=== PATIENT | male | born 1940 | race Caucasian/White ===

== ENCOUNTER 2017-01-01 12:16 | Inpatient (IN) | payer MEDICARE ==
[2017-01-01] MEDS ORDERED: MORPHINE SULFATE 4 MG/ML SYRINGE IV STA (13:29)
[2017-01-01] MEDS ORDERED: RX INFO: IV CONTRAST WAS GIVEN 1 EACH MISC MISCELLANE PRN (13:29)
[2017-01-01] MEDS ORDERED: SODIUM CHLORIDE 0.9% 1,000 ML IV STA ×2 (13:29)
--- NOTE | 2017-01-01 13:34 | ED ---
General Adult HPI - General Chief complaint: Abdominal Pain Stated complaint: Rib/side/back pain Time Seen by Provider: 01/01/17 13:18 Source: patient, RN notes reviewed, old records reviewed Mode of arrival: ambulatory Limitations: no limitations - History of Present Illness Initial comments: This is a 76-year-old male the ER for evaluation of bowel pain. Patient has anterior bilateral flank pain wrapping around his rib cage. Also complaining of mild pain in his abdomen. No nausea vomiting. Patient has significant medical history of high blood pressure high cholesterol, no significant history of alcohol, no abdominal surgeries. Patient has had coronary artery bypass graft with CAD. Patient's continue all medications as prescribed. No blood in his stool no nausea or vomiting. Symptoms started last night but it worsened and today, denies trauma. No fever cough or congestion, no travel history or recent hospitalizations - Related Data Home Medications Medication Instructions Recorded Confirmed Aspirin 325 mg PO DAILY 09/27/14 01/01/17 Atorvastatin [Lipitor] 40 mg PO HS 09/27/14 01/01/17 Metoprolol Tartrate [Lopressor] 50 mg PO BID 09/27/14 01/01/17 Terazosin [Hytrin] 5 mg PO HS 09/27/14 01/01/17 amLODIPine [Norvasc] 2.5 mg PO HS 02/16/16 01/01/17 Cilostazol [Pletal] 50 mg PO BID 01/01/17 01/01/17 Clopidogrel [Plavix] 75 mg PO HS 01/01/17 01/01/17 Docusate [Colace] 100 mg PO HS PRN 01/01/17 01/01/17 Previous Rx's Medication Instructions Recorded Enalapril [Vasotec] 5 mg PO DAILY #30 tablet 10/12/14 Allergies Allergy/AdvReac Type Severity Reaction Status Date / Time No Known Allergies Allergy Verified 01/01/17 13:29 Review of Systems ROS Statement: Those systems with pertinent positive or pertinent negative responses have been documented in the HPI. ROS Other: All systems not noted in ROS Statement are negative. 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 NO HX, Smoking Status: Former smoker Past Alcohol Use History: Daily Additional Past Alcohol Use History / Comment(s): STARTED SMOKING AT AGE 16 QUIT AT AGE 40 SMOKED 1 1/2 PPD Past Drug Use History: None Reported - Past Family History Brother(s) Family Medical History: Cancer Additional Family Medical History / Comment(s): 2 with lung and 1 with prostate Mother Family Medical History: Myocardial Infarction ([place]) Father Additional Family Medical History / Comment(s): AT AGE 83 FROM "HARDENING OF THE ARTERIES" General Exam Limitations: no limitations General appearance: alert, in no apparent distress Head exam: Present: atraumatic, normocephalic, normal inspection Eye exam: Present: normal appearance, PERRL, EOMI. Absent: scleral icterus, conjunctival injection, periorbital swelling ENT exam: Present: normal exam, mucous membranes moist Neck exam: Present: normal inspection. Absent: tenderness, meningismus, lymphadenopathy Respiratory exam: Present: normal lung sounds bilaterally. Absent: respiratory distress, wheezes, rales, rhonchi, stridor Cardiovascular Exam: Present: regular rate, normal rhythm, normal heart sounds. Absent: systolic murmur, diastolic murmur, rubs, gallop, clicks GI/Abdominal exam: Present: soft, normal bowel sounds. Absent: distended, tenderness, guarding, rebound, rigid Extremities exam: Present: normal inspection, full ROM, normal capillary refill. Absent: tenderness, pedal edema, joint swelling, calf tenderness Back exam: Present: normal inspection Neurological exam: Present: alert, oriented X3, CN II-XII intact Psychiatric exam: Present: normal affect, normal mood Skin exam: Present: warm, dry, intact, normal color. Absent: rash Course Vital Signs 01/01/17 12:31 Temperature 97.5 F L Pulse Rate 82 Respiratory 16 Rate Blood Pressure 90/54 O2 Sat by Pulse 93 L Oximetry Medical Decision Making - Lab Data Result diagrams: 01/01/17 13:53 01/01/17 13:50 Lab Results 01/01/17 01/01/17 01/01/17 Range/Units 13:50 13:50 13:50 WBC (3.8-10.6) k/uL RBC (4.30-5.90) m/uL Hgb (13.0-17.5) gm/dL Hct (39.0-53.0) % MCV (80.0-100.0) fL MCH (25.0-35.0) pg MCHC (31.0-37.0) g/dL RDW (11.5-15.5) % Plt Count (150-450) k/uL Neutrophils % % Lymphocytes % % Monocytes % % Eosinophils % % Basophils % % Neutrophils # (1.3-7.7) k/uL Lymphocytes # (1.0-4.8) k/uL Monocytes # (0-1.0) k/uL Eosinophils # (0-0.7) k/uL Basophils # (0-0.2) k/uL Poikilocytosis Anisocytosis Macrocytosis PT 11.8 (9.0-12.0) sec INR 1.2 (<1.1) APTT 24.6 (22.0-30.0) sec Sodium 135 L (137-145) mmol/L Potassium 4.8 (3.5-5.1) mmol/L Chloride 99 (98-107) mmol/L Carbon Dioxide 22 (22-30) mmol/L Anion Gap 14 mmol/L BUN 10 (9-20) mg/dL Creatinine 0.99 (0.66-1.25) mg/dL Est GFR (MDRD) Af Amer >60 (>60 ml/min/1.73 sqM) Est GFR (MDRD) Non-Af >60 (>60 ml/min/1.73 sqM) Glucose 134 H (74-99) mg/dL Calcium 9.0 (8.4-10.2) mg/dL Total Bilirubin 0.8 (0.2-1.3) mg/dL AST 21 (17-59) U/L ALT 22 (21-72) U/L Alkaline Phosphatase 55 (38-126) U/L Total Creatine Kinase 35 L (55-170) U/L CK-MB (CK-2) 0.6 (0.0-2.4) ng/mL CK-MB (CK-2) Rel Index 1.7 Troponin I <0.012 (0.000-0.034) ng/mL Total Protein 6.9 (6.3-8.2) g/dL Albumin 3.7 (3.5-5.0) g/dL Amylase 58 (30-110) U/L Lipase 27 (23-300) U/L 01/01/17 Range/Units 13:53 WBC 9.2 (3.8-10.6) k/uL RBC 3.64 L (4.30-5.90) m/uL Hgb 12.2 L (13.0-17.5) gm/dL Hct 35.8 L (39.0-53.0) % MCV 98.2 (80.0-100.0) fL MCH 33.6 (25.0-35.0) pg MCHC 34.2 (31.0-37.0) g/dL RDW 21.7 H (11.5-15.5) % Plt Count 466 H (150-450) k/uL Neutrophils % 82 % Lymphocytes % 7 % Monocytes % 5 % Eosinophils % 1 % Basophils % 2 % Neutrophils # 7.6 (1.3-7.7) k/uL Lymphocytes # 0.6 L (1.0-4.8) k/uL Monocytes # 0.5 (0-1.0) k/uL Eosinophils # 0.1 (0-0.7) k/uL Basophils # 0.2 (0-0.2) k/uL Poikilocytosis Slight Anisocytosis Moderate Macrocytosis Moderate PT (9.0-12.0) sec INR (<1.1) APTT (22.0-30.0) sec Sodium (137-145) mmol/L Potassium (3.5-5.1) mmol/L Chloride (98-107) mmol/L Carbon Dioxide (22-30) mmol/L Anion Gap mmol/L BUN (9-20) mg/dL Creatinine (0.66-1.25) mg/dL Est GFR (MDRD) Af Amer (>60 ml/min/1.73 sqM) Est GFR (MDRD) Non-Af (>60 ml/min/1.73 sqM) Glucose (74-99) mg/dL Calcium (8.4-10.2) mg/dL Total Bilirubin (0.2-1.3) mg/dL AST (17-59) U/L ALT (21-72) U/L Alkaline Phosphatase (38-126) U/L Total Creatine Kinase (55-170) U/L CK-MB (CK-2) (0.0-2.4) ng/mL CK-MB (CK-2) Rel Index Troponin I (0.000-0.034) ng/mL Total Protein (6.3-8.2) g/dL Albumin (3.5-5.0) g/dL Amylase (30-110) U/L Lipase (23-300) U/L Disposition Clinical Impression: Grief reaction, Weakness, Dizziness Disposition: HOME SELF-CARE Condition: Good Instructions: Weakness (ED), Grief and Loss (ED) Referrals: Leon Franklin MD [Primary Care Provider] - 1-2 days
[2017-01-01 14:13] LABS: Anisocytosis Moderate; Basophils # (A) 0.2 k/uL (0-0.2); Basophils % (A) 2 %; CH 34.3; CHCM 34.9; Eosinophils # (A) 0.1 k/uL (0-0.7); Eosinophils % (A) 1 %; HCT 35.8 % (39.0-53.0); HDW 3.98; HGB 12.2 gm/dL (13.0-17.5); Luc # (Auto) 0.29; Luc % (Auto) 3; Lymphocytes # (A) 0.6 k/uL (1.0-4.8); Lymphocytes % (A) 7 %; MCH 33.6 pg (25.0-35.0); MCHC 34.2 g/dL (31.0-37.0); MCV 98.2 fL (80.0-100.0); Macrocytosis Moderate; Mean Platelet Volume 7.7; Monocytes # (A) 0.5 k/uL (0-1.0); Monocytes % (A) 5 %; Neutrophils # (A) 7.6 k/uL (1.3-7.7); Neutrophils % (A) 82 %; Poikilocytosis Slight; RBC 3.64 m/uL (4.30-5.90); RDW 21.7 % (11.5-15.5); WBC 9.2 k/uL (3.8-10.6); WBC (Perox) 9.27
[2017-01-01 14:22] LABS: INR 1.2 (<1.1)
[2017-01-01 14:23] LABS: Partial Thromboplastin Time 24.6 sec (22.0-30.0); Prothrombin Time 11.8 sec (9.0-12.0)
[2017-01-01 14:28] LABS: ALT 22 U/L (21-72); AST 21 U/L (17-59); Alkaline Phosphatase 55 U/L (38-126); Amylase 58 U/L (30-110); Anion Gap 14 mmol/L; Blood Urea Nitrogen 10 mg/dL (9-20); Carbon Dioxide 22 mmol/L (22-30); Chloride 99 mmol/L (98-107); Glucose 134 mg/dL (74-99); Non-African American GFR(MDRD) >60 (>60 ml/min/1.73 sqM); Potassium 4.8 mmol/L (3.5-5.1); Sodium 135 mmol/L (137-145); Total Bilirubin 0.8 mg/dL (0.2-1.3); Total Protein 6.9 g/dL (6.3-8.2)
[2017-01-01 14:35] LABS: Creatine Kinase 35 U/L (55-170)
[2017-01-01 14:48] LABS: Creatine Kinase MB 0.6 ng/mL (0.0-2.4); Troponin I <0.012 ng/mL (0.000-0.034)
--- NOTE | 2017-01-01 15:11 | ED ---
Medical Decision Making - Medical Decision Making 76-year-old year for evaluation of bowel pain. Patient with acute cholecystitis , CT and ultrasound, lab work at this time is normal started on antibiotics for surgical evaluation in the morning - Lab Data Result diagrams: 01/01/17 13:53 01/01/17 13:50 Lab Results 01/01/17 01/01/17 01/01/17 Range/Units 13:50 13:50 13:50 WBC (3.8-10.6) k/uL RBC (4.30-5.90) m/uL Hgb (13.0-17.5) gm/dL Hct (39.0-53.0) % MCV (80.0-100.0) fL MCH (25.0-35.0) pg MCHC (31.0-37.0) g/dL RDW (11.5-15.5) % Plt Count (150-450) k/uL Neutrophils % % Lymphocytes % % Monocytes % % Eosinophils % % Basophils % % Neutrophils # (1.3-7.7) k/uL Lymphocytes # (1.0-4.8) k/uL Monocytes # (0-1.0) k/uL Eosinophils # (0-0.7) k/uL Basophils # (0-0.2) k/uL Poikilocytosis Anisocytosis Macrocytosis PT (9.0-12.0) sec INR (<1.1) APTT (22.0-30.0) sec Sodium 135 L (137-145) mmol/L Potassium 4.8 (3.5-5.1) mmol/L Chloride 99 (98-107) mmol/L Carbon Dioxide 22 (22-30) mmol/L Anion Gap 14 mmol/L BUN 10 (9-20) mg/dL Creatinine 0.99 (0.66-1.25) mg/dL Est GFR (MDRD) Af Amer >60 (>60 ml/min/1.73 sqM) Est GFR (MDRD) Non-Af >60 (>60 ml/min/1.73 sqM) Glucose 134 H (74-99) mg/dL Plasma Lactic Acid Moe 1.5 (0.7-2.0) mmol/L Calcium 9.0 (8.4-10.2) mg/dL Total Bilirubin 0.8 (0.2-1.3) mg/dL AST 21 (17-59) U/L ALT 22 (21-72) U/L Alkaline Phosphatase 55 (38-126) U/L Total Creatine Kinase 35 L (55-170) U/L CK-MB (CK-2) 0.6 (0.0-2.4) ng/mL CK-MB (CK-2) Rel Index 1.7 Troponin I <0.012 (0.000-0.034) ng/mL Total Protein 6.9 (6.3-8.2) g/dL Albumin 3.7 (3.5-5.0) g/dL Amylase 58 (30-110) U/L Lipase 27 (23-300) U/L Urine Color Urine Appearance (Clear) Urine pH (5.0-8.0) Ur Specific [place] (1.001-1.035) Urine Protein (Negative) Urine Glucose (UA) (Negative) Urine Ketones (Negative) Urine Blood (Negative) Urine Nitrate (Negative) Urine Bilirubin (Negative) Urine Urobilinogen (<2.0) mg/dL Ur Leukocyte Esterase (Negative) 01/01/17 01/01/17 01/01/17 Range/Units 13:50 13:53 16:00 WBC 9.2 (3.8-10.6) k/uL RBC 3.64 L (4.30-5.90) m/uL Hgb 12.2 L (13.0-17.5) gm/dL Hct 35.8 L (39.0-53.0) % MCV 98.2 (80.0-100.0) fL MCH 33.6 (25.0-35.0) pg MCHC 34.2 (31.0-37.0) g/dL RDW 21.7 H (11.5-15.5) % Plt Count 466 H (150-450) k/uL Neutrophils % 82 % Lymphocytes % 7 % Monocytes % 5 % Eosinophils % 1 % Basophils % 2 % Neutrophils # 7.6 (1.3-7.7) k/uL Lymphocytes # 0.6 L (1.0-4.8) k/uL Monocytes # 0.5 (0-1.0) k/uL Eosinophils # 0.1 (0-0.7) k/uL Basophils # 0.2 (0-0.2) k/uL Poikilocytosis Slight Anisocytosis Moderate Macrocytosis Moderate PT 11.8 (9.0-12.0) sec INR 1.2 (<1.1) APTT 24.6 (22.0-30.0) sec Sodium (137-145) mmol/L Potassium (3.5-5.1) mmol/L Chloride (98-107) mmol/L Carbon Dioxide (22-30) mmol/L Anion Gap mmol/L BUN (9-20) mg/dL Creatinine (0.66-1.25) mg/dL Est GFR (MDRD) Af Amer (>60 ml/min/1.73 sqM) Est GFR (MDRD) Non-Af (>60 ml/min/1.73 sqM) Glucose (74-99) mg/dL Plasma Lactic Acid Moe (0.7-2.0) mmol/L Calcium (8.4-10.2) mg/dL Total Bilirubin (0.2-1.3) mg/dL AST (17-59) U/L ALT (21-72) U/L Alkaline Phosphatase (38-126) U/L Total Creatine Kinase (55-170) U/L CK-MB (CK-2) (0.0-2.4) ng/mL CK-MB (CK-2) Rel Index Troponin I (0.000-0.034) ng/mL Total Protein (6.3-8.2) g/dL Albumin (3.5-5.0) g/dL Amylase (30-110) U/L Lipase (23-300) U/L Urine Color Yellow Urine Appearance Clear (Clear) Urine pH 6.5 (5.0-8.0) Ur Specific [place] >1.050 H (1.001-1.035) Urine Protein Trace H (Negative) Urine Glucose (UA) Negative (Negative) Urine Ketones Negative (Negative) Urine Blood Negative (Negative) Urine Nitrate Negative (Negative) Urine Bilirubin Negative (Negative) Urine Urobilinogen <2.0 (<2.0) mg/dL Ur Leukocyte Esterase Negative (Negative) - Radiology Data Radiology results: report reviewed (CT pelvis shows cholelithiasis, ultrasound shows cholecystitis), image reviewed Disposition Clinical Impression: Abdominal pain, Acute cholecystitis Disposition: ADMITTED IP TO THIS [facility] Condition: Good Referrals: Leon Franklin MD [Primary Care Provider] - 1-2 days
--- NOTE | 2017-01-01 15:44 | CT ---
EXAMINATION TYPE: CT abdomen pelvis w con DATE OF EXAM: 01/01/2017 3:23 PM COMPARISON: NONE HISTORY: 76-year-old male with abdominal and lower rib pain x 5 days. TECHNIQUE: Contiguous axial scanning of the abdomen and pelvis following administration of 100 ml Omn ipaque 300 IV contrast. Delayed images through the kidneys and coronal/sagittal reconstructions perf ormed. CT DLP: 967.8 mGycm Automated exposure control for dose reduction was used. FINDINGS: Heart is upper limits of normal in size without pericardial effusion. Median sternotomy wires are pre sent. There is a small hiatal hernia with prominent fluid within the lower esophagus and distending the sto mach. Interstitial changes in the lower lungs suggesting scarring and fibrosis. There is calcified pleural plaques along the left greater than right hemidiaphragms suggesting prior asbestos exposure. No focal liver lesion or biliary ductal dilatation. Portal venous system is patent. A dependent 9 mm gallstone. No abnormal gallbladder distention. Adrenal glands and pancreas appear within normal limits. There is mild splenomegaly at 14.2 cm cranio caudal, coronal image 75. Mild bilateral perinephric stranding likely senescent change or secondary to chronic medical renal di sease. Moderate atherosclerotic calcifications throughout the abdominal aorta and iliac arteries without ane urysm. There is fat stranding along the central and left mesentery with prominent but nonenlarged mesenteric lymph nodes, referred to axial images 33 through 48. A solitary enlarged left mesenteric lymph node measures 1.3 cm, axial image 48. No dilated small bowel, free fluid, or free air though there is mild edematous change throughout the mesenteric fat. There appears to be a retained fragmented epicardial pacer lead in the anterior epiga stric fat. Normal appendix. Colonic diverticulosis without evidence for acute diverticulitis. Some liquid stool in the colon may represent enteritis. The graft circumferential bladder wall thickening with prostato megaly at 5.7 cm wide. Rectum appears normal. No abnormal fluid collection in the pelvis. Bones: Mild degenerative changes at the hips and SI joints. There is a right L5 pars defect and mild degenerative disc disease at L5-S1. No osseous destructive process. IMPRESSION: 1. LEFT MID ABDOMINAL ASHLEY MESENTERY WITH ASSOCIATED NONENLARGED MESENTERIC LYMPH NODES. ONE MESENTE DIMITRIOS LYMPH NODE IS ENLARGED AT 1.3 CM. FINDINGS CAN BE SEEN WITH MESENTERIC PANNICULITIS. 3 MONTH FOLL OW-UP EXAM RECOMMENDED EARLY LYMPHOMA CAN ALSO HAVE THIS APPEARANCE. 2. COLONIC DIVERTICULOSIS WITHOUT ACUTE DIVERTICULITIS. HOWEVER, THERE IS LIQUID STOOL IN THE COLON T HAT COULD REFLECT AN ENTERITIS. CLINICALLY CORRELATE. 3. SMALL HIATAL HERNIA WITH PROMINENT FLUID IN THE LOWER ESOPHAGUS. CORRELATE FOR GERD. 4. CIRCUMFERENTIAL BLADDER WALL THICKENING COULD REFLECT BLADDER WALL HYPERTROPHY OR CYSTITIS. 5. CHOLELITHIASIS, MILD SPLENOMEGALY (14.2 CM), PROSTATOMEGALY (5.7 CM WIDE), PRIOR ASBESTOS EXPOSURE , AND RIGHT L5 PARS DEFECT.
[2017-01-01] MEDS ORDERED: KETOROLAC 30 MG/ML 1 ML VIAL IVP STA (15:52)
[2017-01-01 16:14] LABS: Appearance,Urine Clear (Clear); Bilirubin,Urine Negative (Negative); Glucose,Urine (UA) Negative (Negative); Ketones,Urine Negative (Negative); Leukocyte Esterase,Urine Negative (Negative); Nitrite,Urine Negative (Negative); PH, Urine 6.5 (5.0-8.0); Protein,Urine Trace (Negative); UA Billing (MACRO vs. MICRO) CHEM; Urobilinogen,Urine <2.0 mg/dL (<2.0)
[2017-01-01 16:29] LABS: Specific Gravity,Urine >1.050 (1.001-1.035)
--- NOTE | 2017-01-01 17:28 | US ---
EXAMINATION TYPE: US gallbladder DATE OF EXAM: 01/01/2017 5:08 PM COMPARISON: NONE CLINICAL HISTORY: Pain. RUQ pain that extends to back with heartburn EXAM MEASUREMENTS: Liver Length: 16.9 cm Gallbladder Wall: 0.3 cm CBD: 0.7 cm Right Kidney: 12.9 x 5.3 x 5.2 cm TECHNOLOGIST IMPRESSION: overlying bowel gas, patient had to sit upright due to pain Pancreas: limited views due to gas Liver: intercostal imaging due to gas, appears wnl Gallbladder: single stone seen within fundus, with sludge noted Evidence for sonographic Mc's sign: yes CBD: wnl Right Kidney: wnl IMPRESSION: There is echogenic bile as well as the single 1 cm gallstone. There are no dilated ducts. No focal liver defect.
[2017-01-01] MEDS ORDERED: SODIUM CHLORIDE 0.9% 1,000 ML IV ONE (17:48)
[2017-01-01] MEDS ORDERED: AMPICILLIN-SULBACTAM 3 GM in SODIUM CHLORIDE 0.9% 100 ML IVPB STA (17:48)
[2017-01-01] MEDS ORDERED: ONDANSETRON 4 MG/2 ML VIAL IVP STA (18:18)
[2017-01-01] MEDS ORDERED: ONDANSETRON 4 MG/2 ML VIAL IVP PRN (18:18)
[2017-01-01 20:08] VITALS: BMI 28.1
[2017-01-01] MEDS: AMPICILLIN-SULBACTAM 3 GM in SODIUM CHLORIDE 0.9% 100 ML IVPB SCH (23:16)
[2017-01-02] MEDS: AMPICILLIN-SULBACTAM 3 GM in SODIUM CHLORIDE 0.9% 100 ML IVPB SCH ×4 (06:17→23:34)
[2017-01-02] MEDS: MORPHINE SULFATE 4 MG/ML SYRINGE IVP PRN ×4 (08:04→21:37)
[2017-01-02] MEDS: PANTOPRAZOLE 40 MG/10 ML VIAL IVP SCH (08:04)
--- NOTE | 2017-01-02 08:09 | P.GSHP ---
History of Present Illness H&P Date: 01/01/17 Chief Complaint: Right upper quadrant pain This is a 76-year-old male who was admitted through the emergency room. Patient complaints of right upper quadrant pain which radiated to his back. Patient went CT scan and ultrasound shows evidence of cholelithiasis. - Constitutional Constitutional: Reports as per HPI Past Medical History Past Medical History: Coronary Artery Disease (CAD), Hyperlipidemia, Hypertension, Prostate Disorder Additional Past Medical History / Comment(s): PAD History of Any Multi-Drug Resistant Organisms: None Reported Past Surgical History: Coronary Bypass/CABG, Heart Catheterization, Hernia Repair Additional Past Surgical History / Comment(s): cardiac cath ON 10/04/2014, 5-- [employer] RT SFA, PEPE INGUIANL HERNIA, NAVAL HERNIA Past Anesthesia/Blood Transfusion Reactions: No Reported Reaction Past Psychological History: No Psychological Hx Reported Additional Psychological History / Comment(s): PT LIVES AT HOME WITH HIS , IS INDEPENDANT,RETIRED FROM [employer]. NO HX, Smoking Status: Former smoker Past Alcohol Use History: Daily Additional Past Alcohol Use History / Comment(s): STARTED SMOKING AT AGE 16 QUIT AT AGE 40 SMOKED 1 1/2 PPD Past Drug Use History: None Reported - Past Family History Brother(s) Family Medical History: Cancer Additional Family Medical History / Comment(s): 2 with lung and 1 with prostate Mother Family Medical History: Myocardial Infarction ([place]) Father Additional Family Medical History / Comment(s): AT AGE 83 FROM "HARDENING OF THE ARTERIES" Medications and Allergies Home Medications Medication Instructions Recorded Confirmed Type Aspirin 325 mg PO DAILY 09/27/14 01/01/17 History Atorvastatin [Lipitor] 40 mg PO HS 09/27/14 01/01/17 History Metoprolol Tartrate [Lopressor] 50 mg PO BID 09/27/14 01/01/17 History Terazosin [Hytrin] 5 mg PO HS 09/27/14 01/01/17 History amLODIPine [Norvasc] 2.5 mg PO HS 02/16/16 01/01/17 History Cilostazol [Pletal] 50 mg PO BID 01/01/17 01/01/17 History Clopidogrel [Plavix] 75 mg PO HS 01/01/17 01/01/17 History Docusate [Colace] 100 mg PO HS PRN 01/01/17 01/01/17 History Allergies Allergy/AdvReac Type Severity Reaction Status Date / Time No Known Allergies Allergy Verified 01/01/17 13:29 Surgical - Exam Vital Signs Temp Pulse Resp BP Pulse Ox 97.5 F L 82 16 90/54 93 L 01/01/17 12:31 01/01/17 12:31 01/01/17 12:31 01/01/17 12:31 01/01/17 12:31 - General well developed, no distress - Eyes PERRL - ENT normal pinna - Neck no masses - Respiratory normal expansion - Cardiovascular Rhythm: regular - Abdomen mild ruq pain Positive Mc sign Abdomen: soft Results - Labs 01/01/17 13:53 01/01/17 13:50 - Imaging US - abdomen: report reviewed (1 cm gallstone with evidence of some sludge in gallbladder) Assessment and Plan Plan: Cholelithiasis Cholecystitis We will perform laparoscopic cholecystectomy
[2017-01-02] MEDS: ENOXAPARIN 40 MG/0.4 ML SYRINGE SQ SCH (08:11)
[2017-01-02] MEDS ORDERED: IV FLUID CONTINUATION 1,000 ML IV ONE (12:38)
[2017-01-02] MEDS ORDERED: HEPARIN SODIUM,PORCINE 5,000 UNIT/ML 1 ML VIAL SQ ONE (13:23)
[2017-01-02] MEDS ORDERED: NEOSTIGMINE 1 MG/ML 10 ML VIAL ONE (13:52)
[2017-01-02] MEDS ORDERED: PROPOFOL 10 MG/ML 20 ML VIAL IV ONE (13:52)
[2017-01-02] MEDS ORDERED: fentaNYL (PF) 50 MCG/ML 2 ML AMP ONE (13:52)
[2017-01-02] MEDS ORDERED: SUCCINYLCHOLINE CHLORIDE VIAL 200 MG/10 ML VIAL IV ONE (13:52)
[2017-01-02] MEDS ORDERED: LIDOCAINE 1% INJ 10MG/ML (20 ML MDV) ONE (13:52)
[2017-01-02] MEDS ORDERED: MIDAZOLAM 2 MG/2 ML VIAL ONE (13:52)
[2017-01-02] MEDS ORDERED: GLYCOPYRROLATE 0.2 MG/ML 2 ML VIAL ONE (13:52)
[2017-01-02] MEDS ORDERED: ROCURONIUM BROMIDE 10 MG/ML 10 ML VIAL IV ONE (13:52)
[2017-01-02] MEDS ORDERED: BUPIVACAIN-EPI 0.25%-1:200,000 30 ML VIAL SQ ONE ×2 (14:10)
[2017-01-02] MEDS ORDERED: LACTATED RINGERS 1,000 ML IV ONE (14:29)
--- NOTE | 2017-01-02 14:32 | P.OP ---
Date of Procedure: 01/02/17 Preoperative Diagnosis: Cholecystitis Postoperative Diagnosis: Cholecystitis Cholelithiasis Procedure(s) Performed: Laparoscopic cholecystectomy Anesthesia: SAWYER Surgeon: Ishan Waggoner Estimated Blood Loss (ml): 5 Pathology: other (Gallbladder) Condition: stable Disposition: PACU Description of Procedure: The patient was placed on the operating table. The patient received a general endotracheal tube anesthesia. The patients abdomen was prepped and draped in the usual sterile fashion. Through an infraumbilical stab incision, the fascia of the anterior abdominal wall was grasped with a pair of Kochers and then the Veress needle was placed in the peritoneal cavity. Position of the Veress needle was confirmed with positive drop test. The abdomen was then insufflated. After adequate insufflation, the 10 mm trocar was placed in the peritoneal cavity. Following this the laparoscope was placed in the peritoneal cavity. The patient was placed in the head-up, right side up position and then a 5 mm trocar was placed in the right lateral and right subcostal position under direct visualization. A 8 mm trocar was placed in the epigastric position. The gallbladder was grasped in the fundus and infundibulum. Traction on the gallbladder was placed in the lateral and the cephalad positions. The triangle of Calot was visualized.. The cystic duct was bluntly dissected until the union of the cystic duct and common bile duct was seen. The cystic duct was then divided and sealed with the Harmonic scissors. A PDS Endoloop was then placed throughout the cystic duct stump. The cystic artery divided and sealed with the Harmonic scissors. The gallbladder was then removed from the liver bed using Harmonic scissors. The gallbladder was then extracted through the epigastric port site. Operative field was checked for any bleeding spots and Harmonic scissors was used to coagulate the liver bed. The abdomen was irrigated. The trocars were removed. The skin was closed using interrupted 3-0 Vicryl suture. Dermabond dressing were applied. The patient tolerated the procedure well.nora
--- NOTE | 2017-01-02 17:10 | P.CON ---
Consult Note - . Assessment/Plan:: The patient is a 76-year-old gentleman of Dr. Llanes for whom I am covering. The patient had recurrent right upper quadrant abdominal pain and presented to the emergency room. Patient has been seen, evaluated and undergone laparoscopic cholecystectomy earlier today by Dr. Kilpatrick. Patient presently is resting for the most part comfortable. He denies any chest pain or shortness of breath or or nausea at this time. Past medical history: Patient does have a history of underlying coronary artery disease along with history of hypertension and hyperlipidemia. His also has peripheral vascular disease of the bilateral lower extremities and has undergone angioplasty and stenting on the right lower extremity. He has had a previous heart catheterization back in 2007. And did have previous coronary artery bypass surgery. Also appears that he has BPH. Previous surgery besides bypass also includes a abdominal hernia repair and previous lateral inguinal hernias. Medications: No known ALLERGIES Home medications 1. Hytrin 5 mg at at bedtime 2. Lopressor 50 mg twice a day 3. Colace 100 mg at at bedtime as needed 4. Pletal 50 mg twice a day 4. Enalapril 5 mg daily 5. Plavix 75 mg daily 6. Lipitor 40 mg daily 7. Aspirin 325 mg daily and [place] 7.5-325 one every 6 hours when necessary for pain. Social history: Patient is previously retired from [employer]. He lives with his locally and is a former smoker. Family history: Apparently he has had lung cancer in the family along with history of prostate cancer Mother with myocardial infarction. Father at 83 from atherosclerosis. Physical examination Patient once again is resting in bed in no acute distress. He is afebrile with a pulse of 63 and blood pressure 155/78 and a O2 saturation of 96 on 2 L nasal cannula. Head and neck exam unremarkable. Extraocular movements intact. Neck supple without adenopathy or thyromegaly or bruits. Lungs are clear to auscultation and percussion. Heart tones are regular without murmurs appreciated. Abdomen reveals some postsurgical tenderness but no masses or guarding. Genital and rectal deferred. Extremities with compression devices in place. No edema. He is alert and oriented. Cranial nerves intact. No focal weakness noted. Laboratory values: White count is 9.2 with hemoglobin 12.2 and a platelet count of 466. INR was 1.2. Sodium 135 potassium 4.8. BUN of 10 with creatinine of 0.99 Glucose was 134. CK was 35. Troponin was less than 0.012. Other liver function tests are good. Urinalysis was generally clear. Ultrasound revealed gallstones. Impressions: Patient presented with gallstones and is now post laparoscopic cholecystectomy. Patient does have underlying history of coronary artery disease and peripheral vascular disease along with hypertension and hyperlipidemia and BPH. Basically these seem to be well-controlled on present medications and we will renew most of his regular medications as discussed with patient and nursing staff at the bedside. Patient can be continued advanced as per surgery. Further recommendations pending clinical response and results of above.
[2017-01-02] MEDS: CILOSTAZOL 100 MG TAB PO SCH (19:20)
[2017-01-02] MEDS: METOPROLOL TARTRATE 50 MG TAB PO SCH (19:21)
[2017-01-02] MEDS ORDERED: TERAZOSIN 5 MG CAP PO SCH (21:00)
[2017-01-02] MEDS ORDERED: amLODIPine 2.5 MG TAB PO SCH (21:00)
[2017-01-02] MEDS ORDERED: ATORVASTATIN 40 MG TAB PO SCH (21:00)
[2017-01-03] MEDS: MORPHINE SULFATE 4 MG/ML SYRINGE IVP PRN ×2 (03:00→07:38)
[2017-01-03] MEDS: AMPICILLIN-SULBACTAM 3 GM in SODIUM CHLORIDE 0.9% 100 ML IVPB SCH (05:09)
[2017-01-03 07:20] VITALS: BP 151/68; PULSE 67; RESP 17; TEMP 98.4
[2017-01-03] MEDS: CILOSTAZOL 100 MG TAB PO SCH (07:40)
[2017-01-03] MEDS: ENOXAPARIN 40 MG/0.4 ML SYRINGE SQ SCH (07:40)
[2017-01-03] MEDS: METOPROLOL TARTRATE 50 MG TAB PO SCH (07:41)
[2017-01-03] MEDS: PANTOPRAZOLE 40 MG/10 ML VIAL IVP SCH (07:41)
--- NOTE | 2017-01-03 08:34 | P.PN ---
Progress Note - Text The patient is a 76-year-old gentleman of Dr. shellie Franklin'marni for whom I am covering. The patient had presented with right upper quadrant abdominal pain and underwent laparoscopic, cholecystectomy. This morning he is sitting up in bed. He has had some breakfast. He denies any unusual abdominal pain or nausea or vomiting. No chest pain or shortness of breath. Patient does have comorbidities with history of coronary artery disease and peripheral vascular disease along with hypertension and hyperlipidemia. BPH. Overall they seem stable. Vital signs reveal temperature 98.4 with a pulse of 67 respirations 16. Blood pressure 151/68 and he is 96% saturated. Head and neck exam unremarkable. Lung and heart exam was clear and regular Mild abdominal distention but no rebound guarding or masses. No unusual lower extremity edema. No focal neurological changes. Impressions and plans: Can continue to progress diet and activity as per surgery. On discharge the patient may resume all his home medications with routine follow-up with Dr. Franklin as an outpatient. Call if any questions concerns or problems.
[2017-01-03] MEDS ORDERED: LISINOPRIL 10 MG TAB PO SCH (09:00)
--- NOTE | 2017-01-04 14:57 | P.DS ---
Providers Date of admission: 01/01/17 17:48 Expected date of discharge: 01/03/17 Attending physician: Ishan Waggoner Consults: 01/02/17 14:32 Consult Physician Routine Consulting Provider: Leon Franklin Consult Reason/Comments: Medical management Do you want consulting provider notified?: Yes Primary care physician: Leon Franklin Hospital Course: Patient is a 76-year-old male admitted for the emergency department with complaints of right upper quadrant pain and evidence of acute cholecystitis and cholelithiasis per computed tomography scan and ultrasound. Patient underwent laparoscopic cholecystectomy on 01/02/2017. Patient tolerated procedure well. Patient had an uneventful postoperative course and was deemed stable for discharge to home with close follow-up in the outpatient setting. Discharge diagnoses: Acute cholecystitis and cholelithiasis status post laparoscopic cholecystectomy The above impression and plan have been discussed and directed by Dr. Waggoner. Estefania BOYER acting as scribe for Dr. Waggoner. Pertinent Studies: CT of abdomen and pelvis; gallbladder ultrasound Procedures: Laparoscopic cholecystectomy Patient Condition at Discharge: Good Plan - Discharge Summary New Discharge Prescriptions: HYDROcodone/APAP 7.5-325MG [[place] 7.5-325] 1 tab PO Q6HR PRN #28 tab PRN Reason: Pain Discharge Medication List Aspirin 325 mg PO DAILY 09/27/14 [History] Atorvastatin [Lipitor] 40 mg PO HS 09/27/14 [History] Metoprolol Tartrate [Lopressor] 50 mg PO BID 09/27/14 [History] Terazosin [Hytrin] 5 mg PO HS 09/27/14 [History] Enalapril [Vasotec] 5 mg PO DAILY #30 tablet 10/12/14 [Rx] amLODIPine [Norvasc] 2.5 mg PO HS 02/16/16 [History] Cilostazol [Pletal] 50 mg PO BID 01/01/17 [History] Clopidogrel [Plavix] 75 mg PO HS 01/01/17 [History] Docusate [Colace] 100 mg PO HS PRN 01/01/17 [History] HYDROcodone/APAP 7.5-325MG [[place] 7.5-325] 1 tab PO Q6HR PRN #28 tab 01/02/17 [ Rx] Follow up Appointment(s)/Referral(s): Leon Franklin MD [Primary Care Provider] - 1-2 days (Office closed. Patient to call and schedule follow up appointment.) Ishan Waggoner MD [STAFF PHYSICIAN] - 01/10/17 3:30 pm Patient Instructions/Handouts: *Surgery [facility] - Laparoscopic Cholecystectomy Discharge Instructions Activity/Diet/Wound Care/Special Instructions: No heavy lifting, pushing, or pulling items greater than 10 pounds. Low fat diet. Shower daily, no soaking in bath tubs, pools, or hot tubs. No driving while taking pain medication. Notify surgeon with any signs or symptoms of infection, increased pain, or not tolerating diet. Discharge Disposition: HOME SELF-CARE
== END 2017-01-03 12:39 | disposition home or self-care (01) | DRG 419 ==
LOC: EC 12:16 → 3SUR 17:48
PROVIDERS: ADMIT Surgery; ATTEND Surgery
PROC: 0FT44ZZ Resection of Gallbladder, Percutaneous Endoscopic Approach (ICD-10-PCS; principal; 2017-01-02 10:15)
DX: K80.10 Calculus of gallbladder with chronic cholecystitis without obstruction (principal); I10 Essential (primary) hypertension; I25.10 Atherosclerotic heart disease of native coronary artery without angina pectoris; E78.5 Hyperlipidemia, unspecified; I73.9 Peripheral vascular disease, unspecified; Z95.1 Presence of aortocoronary bypass graft; N40.0 Benign prostatic hyperplasia without lower urinary tract symptoms; Z87.891 Personal history of nicotine dependence; E78.00 Pure hypercholesterolemia, unspecified; Z79.82 Long term (current) use of aspirin; Z79.02 Long term (current) use of antithrombotics/antiplatelets; Z79.899 Other long term (current) drug therapy
CPT/HCPCS: 36415; 74177; 76705; 80053; 81003; 82150; 82550; 82553; 83605; 83690; 84484; 85025; 85610; 85730; 87086; 88304; 96361; 96374; 96375; 99285

== ENCOUNTER 2017-10-05 10:33 | Emergency (ER) | payer MEDICARE ==
--- NOTE | 2017-10-05 11:11 | ED ---
General Adult HPI - General Chief complaint: Shortness of Breath Stated complaint: SOB Time Seen by Provider: 10/05/17 10:35 Source: patient, RN notes reviewed Mode of arrival: wheelchair Limitations: no limitations - History of Present Illness Initial comments: This is a 77-year-old male who presents emergency Department complaining of shortness of breath. Patient states been ongoing for about a week. Patient states it's getting progressively worse. Patient states he has had a past medical history of bypass surgery. Patient states the difficulty breathing is worse with lying flat and he is afraid to go to sleep because he wakes up short of breath. Patient states exertion does increase a little bit. Patient also was noticed increased swelling in the legs. Patient denies any chest pain or palpitations. Patient denies any recent fever chills or cough per patient denies any lightheadedness dizziness or near syncopal episode. Patient denies headache patient denies numbness weakness. - Related Data Home Medications Medication Instructions Recorded Confirmed Atorvastatin [Lipitor] 40 mg PO HS 09/27/14 10/05/17 Metoprolol Tartrate [Lopressor] 50 mg PO BID 09/27/14 10/05/17 Terazosin [Hytrin] 5 mg PO HS 09/27/14 10/05/17 Cilostazol [Pletal] 50 mg PO BID 01/01/17 10/05/17 Clopidogrel [Plavix] 75 mg PO HS 01/01/17 10/05/17 Aspirin EC [Ecotrin Low Dose] 81 mg PO DAILY 10/05/17 10/05/17 Ferrous Sulfate [Feosol] 325 mg PO DAILY 10/05/17 10/05/17 Furosemide [Lasix] 40 mg PO DAILY 10/05/17 10/05/17 Omeprazole 40 mg PO BID 10/05/17 10/05/17 Potassium Chloride [Klor-Con 10 meq PO BID 10/05/17 10/05/17 Sprinkle] Previous Rx's Medication Instructions Recorded Enalapril [Vasotec] 5 mg PO DAILY #30 tablet 10/12/14 Allergies Allergy/AdvReac Type Severity Reaction Status Date / Time No Known Allergies Allergy Verified 10/05/17 11:18 Review of Systems ROS Statement: Those systems with pertinent positive or pertinent negative responses have been documented in the HPI. ROS Other: All systems not noted in ROS Statement are negative. Past Medical History Past Medical History: Coronary Artery Disease (CAD), Hyperlipidemia, Hypertension, Prostate Disorder Additional Past Medical History / Comment(s): PAD History of Any Multi-Drug Resistant Organisms: None Reported Past Surgical History: Coronary Bypass/CABG, Heart Catheterization, Hernia Repair Additional Past Surgical History / Comment(s): cardiac cath ON 10/04/2014, 5-4- 16 [employer] [place] RT SFA, PEPE INGUIANL HERNIA, [employer] HERNIA Past Anesthesia/Blood Transfusion Reactions: No Reported Reaction Past Psychological History: No Psychological Hx Reported Smoking Status: Former smoker Past Alcohol Use History: None Reported Past Drug Use History: None Reported - Past Family History Brother(s) Family Medical History: Cancer Additional Family Medical History / Comment(s): 2 with lung and 1 with prostate Mother Family Medical History: Myocardial Infarction ([place]) Father Additional Family Medical History / Comment(s): AT AGE 83 FROM "HARDENING OF THE ARTERIES" General Exam - General Exam Comments Initial Comments: GENERAL: Patient is well-developed and well-nourished. Patient is nontoxic and well- hydrated and is in mild distress. ENT: Neck is soft and supple. No significant lymphadenopathy is noted. Oropharynx is clear. Moist mucous membranes. Neck has full range of motion without eliciting any pain. EYES: The sclera were anicteric and conjunctiva were pink and moist. Extraocular movements were intact and pupils were equal round and reactive to light. Eyelids were unremarkable. PULMONARY: Unlabored respirations. Good breath sounds bilaterally. No audible rales rhonchi or wheezing was noted. CARDIOVASCULAR: There is a regular rate and rhythm without any murmurs gallops or rubs. ABDOMEN: Soft and nontender with normal bowel sounds. No palpable organomegaly was noted. There is no palpable pulsatile mass. SKIN: Skin is clear with no lesions or rashes and otherwise unremarkable. NEUROLOGIC: Patient is alert and oriented x3. Cranial nerves II through XII are grossly intact. Motor and sensory are also intact. Normal speech, volume and content. Symmetrical smile. MUSCULOSKELETAL: Normal extremities with adequate strength and full range of motion. 1+ edema. No calf tenderness. LYMPHATICS: No significant lymphadenopathy is noted PSYCHIATRIC: Normal psychiatric evaluation. Limitations: no limitations Course Vital Signs 10/05/17 10:35 Temperature 96.9 F L Pulse Rate 84 Respiratory 20 Rate Blood Pressure 149/69 O2 Sat by Pulse 91 L Oximetry Medical Decision Making - Medical Decision Making EKG shows normal sinus rhythm at 71 bpm DE interval is 158 QRSs 80 QT interval 42 QTC is 436. Patient's EKG shows some ST segment depression in leads V5 and V6 Chest x-ray shows mild CHF. I gave the patient 40 of Lasix IV. Patient will be discharged home to follow-up with Dr. Franklin as an outpatient and he'll have a new prescription for Aldactone and he'll be taking his Lasix 40 mg twice a day. - Lab Data Result diagrams: 10/05/17 11:28 10/05/17 11:28 Lab Results 10/05/17 10/05/17 10/05/17 Range/Units 11:28 11:28 11:28 WBC 15.9 H (3.8-10.6) k/uL RBC 3.82 L (4.30-5.90) m/uL Hgb 8.7 L (13.0-17.5) gm/dL Hct 30.7 L (39.0-53.0) % MCV 80.4 (80.0-100.0) fL MCH 22.8 L (25.0-35.0) pg MCHC 28.4 L (31.0-37.0) g/dL RDW 26.2 H (11.5-15.5) % Plt Count 899 H* (150-450) k/uL Neutrophils % (Manual) 80 % Band Neutrophils % 4 % Lymphocytes % (Manual) 6 % Monocytes % (Manual) 4 % Eosinophils % (Manual) 2 % Metamyelocytes % 3 % Myelocytes % 2 % Other Cells % % Neutrophils # (Manual) 13.30 H (1.3-7.7) k/uL Lymphocytes # (Manual) 0.95 L (1.0-4.8) k/uL Monocytes # (Manual) 0.64 (0-1.0) k/uL Eosinophils # (Manual) 0.32 (0-0.7) k/uL Metamyelocytes # (Man) 0.48 H (0) k/uL Myelocytes # (Manual) 0.32 H (0) k/uL Nucleated RBCs 1 H (0-0) /100 WBC Manual Slide Review Performed Large Platelets Present Polychromasia Present Hypochromasia Marked Poikilocytosis Moderate Anisocytosis Marked Microcytosis Moderate Ovalocytes Present Fragmented RBCs Present PT (9.0-12.0) sec INR (<1.2) APTT (22.0-30.0) sec Sodium 132 L (137-145) mmol/L Potassium 4.6 (3.5-5.1) mmol/L Chloride 99 (98-107) mmol/L Carbon Dioxide 25 (22-30) mmol/L Anion Gap 8 mmol/L BUN 9 (9-20) mg/dL Creatinine 0.84 (0.66-1.25) mg/dL Est GFR (MDRD) Af Amer >60 (>60 ml/min/1.73 sqM) Est GFR (MDRD) Non-Af >60 (>60 ml/min/1.73 sqM) Glucose 120 H (74-99) mg/dL Calcium 8.9 (8.4-10.2) mg/dL Magnesium 1.7 (1.6-2.3) mg/dL Total Bilirubin 0.8 (0.2-1.3) mg/dL AST 37 (17-59) U/L ALT 30 (21-72) U/L Alkaline Phosphatase 98 (38-126) U/L Total Creatine Kinase 28 L (55-170) U/L CK-MB (CK-2) 0.7 (0.0-2.4) ng/mL CK-MB (CK-2) Rel Index 2.5 Troponin I <0.012 (0.000-0.034) ng/mL Total Protein 5.5 L (6.3-8.2) g/dL Albumin 3.0 L (3.5-5.0) g/dL 10/05/17 Range/Units 11:28 WBC (3.8-10.6) k/uL RBC (4.30-5.90) m/uL Hgb (13.0-17.5) gm/dL Hct (39.0-53.0) % MCV (80.0-100.0) fL MCH (25.0-35.0) pg MCHC (31.0-37.0) g/dL RDW (11.5-15.5) % Plt Count (150-450) k/uL Neutrophils % (Manual) % Band Neutrophils % % Lymphocytes % (Manual) % Monocytes % (Manual) % Eosinophils % (Manual) % Metamyelocytes % % Myelocytes % % Other Cells % % Neutrophils # (Manual) (1.3-7.7) k/uL Lymphocytes # (Manual) (1.0-4.8) k/uL Monocytes # (Manual) (0-1.0) k/uL Eosinophils # (Manual) (0-0.7) k/uL Metamyelocytes # (Man) (0) k/uL Myelocytes # (Manual) (0) k/uL Nucleated RBCs (0-0) /100 WBC Manual Slide Review Large Platelets Polychromasia Hypochromasia Poikilocytosis Anisocytosis Microcytosis Ovalocytes Fragmented RBCs PT 12.9 H (9.0-12.0) sec INR 1.4 H (<1.2) APTT 26.4 (22.0-30.0) sec Sodium (137-145) mmol/L Potassium (3.5-5.1) mmol/L Chloride (98-107) mmol/L Carbon Dioxide (22-30) mmol/L Anion Gap mmol/L BUN (9-20) mg/dL Creatinine (0.66-1.25) mg/dL Est GFR (MDRD) Af Amer (>60 ml/min/1.73 sqM) Est GFR (MDRD) Non-Af (>60 ml/min/1.73 sqM) Glucose (74-99) mg/dL Calcium (8.4-10.2) mg/dL Magnesium (1.6-2.3) mg/dL Total Bilirubin (0.2-1.3) mg/dL AST (17-59) U/L ALT (21-72) U/L Alkaline Phosphatase (38-126) U/L Total Creatine Kinase (55-170) U/L CK-MB (CK-2) (0.0-2.4) ng/mL CK-MB (CK-2) Rel Index Troponin I (0.000-0.034) ng/mL Total Protein (6.3-8.2) g/dL Albumin (3.5-5.0) g/dL Disposition Clinical Impression: Congestive heart failure Disposition: HOME SELF-CARE Condition: Good Instructions: Heart Failure (ED) Additional Instructions: Patient should take Lasix 40 mg twice a day. Patient should take Aldactone as prescribed by Dr. Franklin. Rigoberto saw the patient in the emergency department and thought the patient could follow-up outpatient with him. Referrals: Leon Franklin MD [Primary Care Provider] - 1-2 days
--- NOTE | 2017-10-05 11:47 | XR ---
EXAMINATION TYPE: XR chest 2V DATE OF EXAM: 10/05/2017 HISTORY: difficulty breathing. REFERENCE: Previous study dated 09/28/2014. FINDINGS: There has been a midline sternotomy. The heart is mildly prominent. There have developed bi lateral pleural effusions. There is airspace disease at the right lung base. There is apparent elevat ion of the right hemidiaphragm. This was not present previously. There is vascular congestion and sub tle interstitial change. IMPRESSION: 1. CARDIOMEGALY, VASCULAR CONGESTION AND INTERSTITIAL CHANGE, CONSISTENT WITH CONGESTIVE HEART FAILUR E. 2. INTERVAL DEVELOPMENT OF BILATERAL EFFUSIONS, GREATER ON THE RIGHT THAN THE LEFT. 3. INTERVAL DEVELOPMENT OF APPARENT ELEVATION OF THE RIGHT HEMIDIAPHRAGM.
[2017-10-05 12:00] LABS: INR 1.4 (<1.2); Partial Thromboplastin Time 26.4 sec (22.0-30.0); Prothrombin Time 12.9 sec (9.0-12.0)
[2017-10-05 12:04] LABS: ALT 30 U/L (21-72); AST 37 U/L (17-59); Alkaline Phosphatase 98 U/L (38-126); Anion Gap 8 mmol/L; Blood Urea Nitrogen 9 mg/dL (9-20); Calcium 8.9 mg/dL (8.4-10.2); Carbon Dioxide 25 mmol/L (22-30); Chloride 99 mmol/L (98-107); Glucose 120 mg/dL (74-99); Magnesium 1.7 mg/dL (1.6-2.3); Non-African American GFR(MDRD) >60 (>60 ml/min/1.73 sqM); Potassium 4.6 mmol/L (3.5-5.1); Sodium 132 mmol/L (137-145); Total Bilirubin 0.8 mg/dL (0.2-1.3); Total Protein 5.5 g/dL (6.3-8.2)
[2017-10-05 12:10] LABS: Creatine Kinase 28 U/L (55-170)
[2017-10-05 12:17] LABS: Anisocytosis Marked; CH 23.9; HCT 30.7 % (39.0-53.0); HDW 4.47; HGB 8.7 gm/dL (13.0-17.5); Hypochromasia Marked; MCH 22.8 pg (25.0-35.0); MCHC 28.4 g/dL (31.0-37.0); MCV 80.4 fL (80.0-100.0); Mean Platelet Volume 7.6; Microcytosis Moderate; Poikilocytosis Moderate; RBC 3.82 m/uL (4.30-5.90); RBC Fragment Flag Slight; WBC (Perox) 17.36
[2017-10-05 12:20] LABS: RDW 26.2 % (11.5-15.5)
[2017-10-05 12:21] LABS: Add Differential Manual Differential
[2017-10-05 12:23] LABS: Creatine Kinase MB 0.7 ng/mL (0.0-2.4); Troponin I <0.012 ng/mL (0.000-0.034)
[2017-10-05 12:24] LABS: Band Neutrophils % 4 %; Metamyelocytes % 3 %; Myelocytes % 2 %; Nucleated Red Blood Cells 1 /100 WBC (0-0); Total Cells Counted 200
[2017-10-05 12:25] LABS: WBC 15.9 k/uL (3.8-10.6)
[2017-10-05 12:27] LABS: Large Platelets Present; Manual Review Performed
[2017-10-05 12:28] LABS: Ovalocytes Present; Polychromasia Present
[2017-10-05] MEDS ORDERED: FUROSEMIDE 10 MG/ML 4 ML VIAL IV STA (12:47)
[2017-10-05 13:56] VITALS: BP 147/97; PULSE 64; RESP 18; TEMP 97.6
== END 2017-10-05 13:55 | disposition home or self-care (01) ==
LOC: EC 10:33
DX: I50.9 Heart failure, unspecified (principal); I25.10 Atherosclerotic heart disease of native coronary artery without angina pectoris; E78.5 Hyperlipidemia, unspecified; I10 Essential (primary) hypertension; N42.9 Disorder of prostate, unspecified; Z87.891 Personal history of nicotine dependence; Z79.82 Long term (current) use of aspirin; Z79.01 Long term (current) use of anticoagulants; Z79.899 Other long term (current) drug therapy; Z98.61 Coronary angioplasty status; Z95.818 Presence of other cardiac implants and grafts
CPT/HCPCS: 36415; 93005; 83880; 80053; 82550; 82553; 83735; 84484; 85025; 85610; 85730; 71020; 99285; 96374; J1940

== ENCOUNTER 2017-11-12 13:19 | Inpatient (IN) | payer MEDICARE ==
--- NOTE | 2017-11-12 14:33 | ED ---
General Adult HPI - General Chief complaint: Shortness of Breath Stated complaint: SOB Time Seen by Provider: 11/12/17 14:10 Source: patient, RN notes reviewed, old records reviewed Mode of arrival: wheelchair Limitations: no limitations - History of Present Illness Initial comments: 77-year-old male presents for evaluation of worsening dyspnea. Patient states symptoms have been ongoing for several months, however have worsened in the past one week. Patient reports orthopnea and PND. He also reports bilateral lower extremity swelling. Patient has history of CAD status post CABG. He denies any chest pain. Denies fever or chills. Patient does report cough over the past several days which was productive of yellow sputum. Denies abdominal pain nausea vomiting or diarrhea. Patient has been taking his Lasix at home with minimal relief. He has been off his anticoagulation status post upper GI endoscopy. - Related Data Home Medications Medication Instructions Recorded Confirmed Atorvastatin [Lipitor] 40 mg PO HS 09/27/14 11/12/17 Metoprolol Tartrate [Lopressor] 50 mg PO BID 09/27/14 11/12/17 Terazosin [Hytrin] 5 mg PO HS 09/27/14 11/12/17 Cilostazol [Pletal] 50 mg PO BID 01/01/17 11/12/17 Clopidogrel [Plavix] 75 mg PO HS 01/01/17 11/12/17 Aspirin EC [Ecotrin Low Dose] 81 mg PO DAILY 10/05/17 11/12/17 Ferrous Sulfate [Feosol] 325 mg PO DAILY 10/05/17 11/12/17 Furosemide [Lasix] 40 mg PO DAILY 10/05/17 11/12/17 Pantoprazole [Protonix] 80 mg PO DAILY 11/12/17 11/12/17 Spironolactone [Aldactone] 25 mg PO DAILY 11/12/17 11/12/17 Previous Rx's Medication Instructions Recorded Enalapril [Vasotec] 5 mg PO DAILY #30 tablet 10/12/14 Allergies Allergy/AdvReac Type Severity Reaction Status Date / Time No Known Allergies Allergy Verified 11/12/17 14:32 Review of Systems ROS Statement: Those systems with pertinent positive or pertinent negative responses have been documented in the HPI. ROS Other: All systems not noted in ROS Statement are negative. Past Medical History Past Medical History: Coronary Artery Disease (CAD), Hyperlipidemia, Hypertension, Prostate Disorder Additional Past Medical History / Comment(s): PAD History of Any Multi-Drug Resistant Organisms: None Reported Past Surgical History: Coronary Bypass/CABG, Heart Catheterization, Hernia Repair Additional Past Surgical History / Comment(s): cardiac cath ON 10/04/2014, 5-4- 16 [employer] RT SFA, PEPE INGUIANL HERNIA, [employer] HERNIA Past Anesthesia/Blood Transfusion Reactions: No Reported Reaction Past Psychological History: No Psychological Hx Reported Smoking Status: Former smoker Past Alcohol Use History: Occasional Past Drug Use History: None Reported - Past Family History Brother(s) Family Medical History: Cancer Additional Family Medical History / Comment(s): 2 with lung and 1 with prostate Mother Family Medical History: Myocardial Infarction ([place]) Father Additional Family Medical History / Comment(s): AT AGE 83 FROM "HARDENING OF THE ARTERIES" General Exam Limitations: no limitations General appearance: alert, in no apparent distress Head exam: Present: atraumatic, normocephalic Eye exam: Present: normal appearance, PERRL ENT exam: Present: normal exam Neck exam: Present: normal inspection. Absent: tenderness, meningismus Respiratory exam: Present: decreased breath sounds. Absent: respiratory distress Cardiovascular Exam: Present: regular rate, normal rhythm GI/Abdominal exam: Present: soft. Absent: distended, tenderness, guarding, rebound Extremities exam: Present: normal inspection, normal capillary refill, pedal edema Back exam: Present: normal inspection, full ROM. Absent: tenderness Neurological exam: Present: alert, oriented X3, CN II-XII intact. Absent: motor sensory deficit Psychiatric exam: Present: normal affect, normal mood Skin exam: Present: warm, dry, intact, pallor. Absent: cyanosis, diaphoretic Course Vital Signs 11/12/17 11/12/17 11/12/17 13:44 14:45 14:46 Temperature 97.6 F Pulse Rate 76 57 L Respiratory 18 26 H 22 Rate Blood Pressure 157/69 171/77 O2 Sat by Pulse 96 98 Oximetry EKG Findings - EKG Comments: EKG Findings:: EKG shows sinus bradycardia with sinus arrhythmia, left posterior fascicular block, ventricular rate 58, [place] interval 148, QRS duration 84, QTC 459, there is T-wave inversion in the precordium which is new compared to previous EKG, T-wave inversion in the inferior leads as well. Medical Decision Making - Medical Decision Making 77-year-old male presented with worsening dyspnea, productive cough, and lower extremity swelling. EKG shows T-wave inversion which is new compared to old EKG. Patient denies any chest pain. Laboratory studies reveal hemoglobin 9.0 which is stable from previous of 8.7. White blood cell count is significantly elevated at 34,000. Sodium 131 mildly low, troponin 0.019, albumin 3.2 and BNP is 9600. These laboratory studies likely reflect combination of pneumonia and congestive heart failure. Patient given Lasix in the emergency department. He is also started on broad-spectrum antibiotics. Blood cultures. Patient will be admitted to Dr. Butler. Cardiology will be placed on consult for evaluation of congestive heart failure. Diagnosis: Right lower lobe pneumonia, leukocytosis, congestive heart Failure - Lab Data Result diagrams: 11/12/17 14:40 11/12/17 14:40 Lab Results 11/12/17 11/12/17 11/12/17 Range/Units 14:40 14:40 14:40 WBC 34.9 H* (3.8-10.6) k/uL RBC 4.00 L (4.30-5.90) m/uL Hgb 9.0 L (13.0-17.5) gm/dL Hct 31.3 L (39.0-53.0) % MCV 78.2 L (80.0-100.0) fL MCH 22.4 L (25.0-35.0) pg MCHC 28.7 L (31.0-37.0) g/dL RDW 25.4 H (11.5-15.5) % PT (9.0-12.0) sec INR (<1.2) APTT (22.0-30.0) sec Sodium 131 L (137-145) mmol/L Potassium 4.9 (3.5-5.1) mmol/L Chloride 101 (98-107) mmol/L Carbon Dioxide 22 (22-30) mmol/L Anion Gap 8 mmol/L BUN 21 H (9-20) mg/dL Creatinine 0.95 (0.66-1.25) mg/dL Est GFR (MDRD) Af Amer >60 (>60 ml/min/1.73 sqM) Est GFR (MDRD) Non-Af >60 (>60 ml/min/1.73 sqM) Glucose 100 H (74-99) mg/dL Calcium 9.0 (8.4-10.2) mg/dL Magnesium 1.6 (1.6-2.3) mg/dL Total Bilirubin 1.2 (0.2-1.3) mg/dL AST 44 (17-59) U/L ALT 36 (21-72) U/L Alkaline Phosphatase 165 H (38-126) U/L Total Creatine Kinase 37 L (55-170) U/L CK-MB (CK-2) 1.3 (0.0-2.4) ng/mL CK-MB (CK-2) Rel Index 3.5 Troponin I 0.019 (0.000-0.034) ng/mL NT-Pro-B Natriuret Pep pg/mL Total Protein 5.5 L (6.3-8.2) g/dL Albumin 3.2 L (3.5-5.0) g/dL 11/12/17 11/12/17 Range/Units 14:40 14:40 WBC (3.8-10.6) k/uL RBC (4.30-5.90) m/uL Hgb (13.0-17.5) gm/dL Hct (39.0-53.0) % MCV (80.0-100.0) fL MCH (25.0-35.0) pg MCHC (31.0-37.0) g/dL RDW (11.5-15.5) % PT 13.7 H (9.0-12.0) sec INR 1.5 H (<1.2) APTT 26.8 (22.0-30.0) sec Sodium (137-145) mmol/L Potassium (3.5-5.1) mmol/L Chloride (98-107) mmol/L Carbon Dioxide (22-30) mmol/L Anion Gap mmol/L BUN (9-20) mg/dL Creatinine (0.66-1.25) mg/dL Est GFR (MDRD) Af Amer (>60 ml/min/1.73 sqM) Est GFR (MDRD) Non-Af (>60 ml/min/1.73 sqM) Glucose (74-99) mg/dL Calcium (8.4-10.2) mg/dL Magnesium (1.6-2.3) mg/dL Total Bilirubin (0.2-1.3) mg/dL AST (17-59) U/L ALT (21-72) U/L Alkaline Phosphatase (38-126) U/L Total Creatine Kinase (55-170) U/L CK-MB (CK-2) (0.0-2.4) ng/mL CK-MB (CK-2) Rel Index Troponin I (0.000-0.034) ng/mL NT-Pro-B Natriuret Pep 9640 pg/mL Total Protein (6.3-8.2) g/dL Albumin (3.5-5.0) g/dL Critical Care Time Critical Care Time: Yes Total Critical Care Time: 35 Disposition Clinical Impression: Congestive heart failure, Community acquired pneumonia Disposition: ADMITTED IP TO THIS [facility] Condition: Stable Referrals: Leon Franklin MD [Primary Care Provider] - 1-2 days Decision to Admit Reason: Admit from EC Decision Date: 11/12/17 Decision Time: 16:02
--- NOTE | 2017-11-12 14:59 | XR ---
EXAMINATION TYPE: XR chest 2V DATE OF EXAM: 11/12/2017 COMPARISON: Prior chest x-ray 10/05/2017 HISTORY: Difficulty breathing TECHNIQUE: Frontal and lateral views of the chest are obtained. FINDINGS: Increased AP diameter of the chest could be indicative of underlying COPD. Patient is post median sternotomy. Heart remains enlarged. Central vascularity and interstitium are increased. There is obscured right hemidiaphragm and heart border. No pneumothorax. IMPRESSION: Findings likely represent congestive heart failure with right pleural effusion and assoc iated atelectasis versus edema, pneumonia not excluded, follow-up recommended.
[2017-11-12 15:05] LABS: ALT 36 U/L (21-72); AST 44 U/L (17-59); Albumin 3.2 g/dL (3.5-5.0); Alkaline Phosphatase 165 U/L (38-126); Anion Gap 8 mmol/L; Blood Urea Nitrogen 21 mg/dL (9-20); Carbon Dioxide 22 mmol/L (22-30); Chloride 101 mmol/L (98-107); Glucose 100 mg/dL (74-99); Magnesium 1.6 mg/dL (1.6-2.3); Potassium 4.9 mmol/L (3.5-5.1); Sodium 131 mmol/L (137-145); Total Bilirubin 1.2 mg/dL (0.2-1.3); Total Protein 5.5 g/dL (6.3-8.2)
[2017-11-12 15:11] LABS: INR 1.5 (<1.2); Partial Thromboplastin Time 26.8 sec (22.0-30.0); Prothrombin Time 13.7 sec (9.0-12.0)
[2017-11-12 15:15] LABS: Anisocytosis Marked; HCT 31.3 % (39.0-53.0); Hypochromasia Marked; MCH 22.4 pg (25.0-35.0); MCHC 28.7 g/dL (31.0-37.0); MCV 78.2 fL (80.0-100.0); Mean Platelet Volume 9.2; Microcytosis Moderate; Poikilocytosis Marked
[2017-11-12 15:20] LABS: RDW 25.4 % (11.5-15.5)
[2017-11-12 15:30] LABS: Creatine Kinase MB 1.3 ng/mL (0.0-2.4); Troponin I 0.019 ng/mL (0.000-0.034)
[2017-11-12] MEDS ORDERED: FUROSEMIDE 10 MG/ML 2 ML VIAL IV STA (15:48)
[2017-11-12] MEDS ORDERED: CEFEPIME 2 GM in SODIUM CHLORIDE 0.9% 50 ML IVPB STA (15:49)
[2017-11-12 15:55] LABS: Band Neutrophils % 8 %; Metamyelocytes % 1 %; Myelocytes % 5 %; Neutrophils % (M) 76 %; Nucleated Red Blood Cells 3 /100 WBC (0-0); Total Cells Counted 200
[2017-11-12 15:56] LABS: Metamyelocytes # (M) 0.34 k/uL (0); Monocytes # (M) 2.03 k/uL (0-1.0); Ovalocytes Present; Polychromasia Present; RBC Fragments Present; WBC 33.9 k/uL (3.8-10.6)
[2017-11-12 15:57] LABS: Large Platelets Present; Target Cells Present; Tear Drop Cells Present
[2017-11-12 16:00] LABS: Platelet Count 1022 k/uL (150-450)
[2017-11-12] MEDS ORDERED: VANCOMYCIN IV PER PHARMACY 1 EACH MISC MISCELLANE PRN (16:03)
[2017-11-12] MEDS ORDERED: ONDANSETRON 4 MG/2 ML VIAL IVP PRN (16:04)
[2017-11-12] MEDS ORDERED: NALOXONE 0.4 MG/ML 1 ML VIAL IV PRN (16:04)
[2017-11-12] MEDS ORDERED: VANCOMYCIN 1,750 MG in SODIUM CHLORIDE 0.9% 250 ML IVPB ONE (16:30)
[2017-11-12] MEDS ORDERED: ENALAPRILAT 1.25 MG/ML 1 ML VIAL IVP PRN (18:06)
[2017-11-12] MEDS ORDERED: BARIUM SULFATE 450 ML ORAL.SUSP BOTTLE PO PRN (18:39)
[2017-11-12] MEDS ORDERED: RX INFO: IV CONTRAST WAS GIVEN 1 EACH MISC MISCELLANE PRN ×2 (18:39→18:52)
[2017-11-12] MEDS: PIPERACILLIN-TAZOBACTAM 3.375 GM in DEXTROSE/WATER 1 50ML.BAG IVPB SCH (20:30)
--- NOTE | 2017-11-12 20:44 | HP ---
HISTORY AND PHYSICAL DATA: He is a 77-year-old white male, , living with his , he is a FULL CODE and he is 5 feet 7 inches, weight 83.46 kg. BSA 1.95 m2. BMI 28.8 kg m squared. Allergy is unknown. CHIEF COMPLAINT: The patient admitted to the hospital through the emergency room and admitted by Dr. Grey Casas ER physician and with chief complaint that the patient has short of breath. HISTORY OF PRESENT ILLNESS: A 77-year-old male presented for evaluation of worsening of his progressively short of breath and has been present for the last 3 months and now he laid down and he could not breathe with the orthopnea and sometimes he has paroxysmal nocturnal dyspnea and he had to sleep in his chair. That is ongoing for the last 3 months. With the orthopnea as well and he found that he had bilateral lower extremities edema, progressive. At that time came to the emergency room. He live in [place]. PAST MEDICAL HISTORY: He had history of 3 vessel bypass graft was done by Dr. Germán Pelayo and he has been with Lasix to try to relief his shortness of breath, however, is not working for him at this time. He is living with his and he felt cold. Dr. Franklin has been taking care of him for quite a while and recently Dr. Franklin referred him to Dr. Kwan the abstracter. She did EGD on him and subsequently sent him to [facility] and that was in November 07 and . However patient they did another scope and subsequently they told him he is going to be waiting for 2 weeks after the test and they started him on pantoprazole twice a day 40 mg and they will be seeing him after that after they evaluate the pictures. SOCIAL HISTORY: He smoked in the past remote history for 10 years, 1 pack per day. He is quit smoking for 40 years. He occasionally drinks beer, 2 of them a day. He has only 1 daughter adopted. Allergy is unknown. He has 2 sisters and 2 brothers. The brother had lung cancer. One of them and is alive. The other one has a prostate problem. He has a sister 82 years old and she is in and out of [facility]. Patient has history of cough with phlegm and has been checked by Dr. Kwan, Gastroenterology with the underlying questionable lower esophageal abnormality considered as possible with his note is questionable and that is why she sent him to [facility] subsequently. REVIEW OF SYMPTOMS: Reviewing of the system neuropsychiatry: Negative. Cardiovascular: He has history of 3 vessel bypass graft and he denied any chest pain. On the respiratory he was having shortness of breath and that is progressive to the limit that he could not breath and he is living on the chair and could not lay down with the orthopnea and paroxysmal nocturnal dyspnea. On the GI: He has no symptoms, but he had the EGD. The EGD and apparently work done. However, we do not have full explanation and probably will be asking Dr. Kwan to help us for eliminating on his history as he is a poor historian. He has been seeing Dr. Amparo Pelayo, the Cardiology. Musculoskeletal: Swelling of his legs and become more weaker by the day. The rest of the review of system 14 points is not helpful. He has no hematochezia or hematemesis. MEDICATION: 1. Atorvastatin 40 mg at bedtime. 2. Metoprolol tartrate 50 mg b.i.d. 3. Terazosin for benign prostatic hypertrophy, 5 mg at q.h.s. 4. He is also Pletal 50 mg b.i.d. and that was help at on admission to the hospital because contraindication with the congestive heart failure. 5. Aspirin 81 mg. 6. Ferrous sulfate 325 mg. 7. Lasix 40 mg daily, which was not helping as the patient stated. On the examination, the patient was conscious, alert, oriented, and he has a vital signs on admission, the temperature was 97.6, and pulse 76, respiratory rate 18, and blood pressure was called to me initially was 157/60, subsequently 171/77 and subsequently per nursing staff on the floor, 187/75 with the pulse rate of 60. He was 97% on 2 L, and temperature was 98.8. His EKG was indicating sinus bradycardia, left posterior fascicular block with a rate of 58. His laboratory was white count WBC 34.9, significantly elevated, hemoglobin of 9, hematocrit 31.3, and MCV 78 with macrocytosis and the sodium 131, potassium 4.9, chloride 101, carbon dioxide 22, and anion gap of 8. His BUN was 31 and creatinine is 0.95 and his estimated glomerular filtration rate for non- more than 60, glucose 100 and calcium is 9, and magnesium 1.6. Total bilirubin 1.2. AST 44 and ALT 36, alkaline phosphatase is elevated 165. They did the CK 37 and CK-MB 1.3, and CK-MB 3.5 with the B- natriuretic peptide was done, however, is not in this screen, protein is 5.5 and albumin 3.2, and his beta natriuretic peptide was 9640 and with the underlying congestive heart failure with edema and shortness of breath with orthopnea and the paroxysmal nocturnal dyspnea. His chest x-ray was suspicious also of pneumonia as well and with the community acquired pneumonia. I am not sure why the Saturday health-care acquired pneumonia. Patient came from home and he never been in the hospital recently. PHYSICAL EXAM: The patient is conscious, alert, oriented, able to give the history. His HEENT was negative. Oropharynx normal was partial and full plate upper. The hearing was diminished. The neck was supple as mild JVD and the trachea. Trachea midline. He has the chest was decreased air entry bilaterally with no significant dullness. Heart was the PMI in the 5th intercostal space outside midclavicular line was cardiomegaly. He is definitely hypertensive heart disease. He had a scar midline with the history of 3 vessel bypass graft. ABDOMEN: Obese, positive bowel sounds. The liver appeared to be enlarged and he had edema in the lower abdomen. Pitting and also pre sacral edema as well as 2+ edema of the lower extremities. Pulses was intact and perfused. Neurological stable. No lateralizing sign. ASSESSMENT: 1. We have acute congestive heart failure unclear systolic versus diastolic and versus combined acute over top of chronic from the history, will be obtaining the echocardiogram. 2. Underlying severe elevation of leukocytosis with the underlying platelet count 1222 and white count 33.9, and anemia with the hemoglobin of 9 and macrocytosis which could be associated with the bone marrow and he has a neutrophil of 28.4, underlying sepsis could not be excluded at this time. Beside that the high leukocytosis and of course, thrombocytosis as well and anemia macrocytic hypochromic with the underlying large platelet polychromasia, hypochromasia, poikilocytosis, anisocytosis, target cell and teardrop cells and ovalocytes and fragmented RBC which is all indicator of significant abnormalities in the hemopoiesis. His PT and INR, and INR is 1.5 with slightly elevated and however, the PTT was normal 26.8, and her his laboratories sodium mildly hyponatremic 131, potassium 4.9, chloride 101, carbon dioxide 22, anion gap of 8, and BUN 21, creatinine 0.95, and estimated glomerular filtration rate for non- more than 60. The Glucose was 100. The calcium is 9. Magnesium 1.6, total protein 1.2. AST and ALT is normal, however, the alkaline phosphatase is slightly elevated and albumin at 3.2 and total protein 5.5. 3. 4. On the examination was questionable ascites as well with the underlying diagnosis as mentioned we have a hide leukocytosis with the SIRS could be considered and sepsis could be considered. 5. Underlying congestive heart failure. 6. Pneumonia as well. 7. Underlying history of low esophageal abnormalities could not exclude malignancy and enlarged liver and possible ascites. He has a pre sacral edema and 2+ edema. RECOMMENDATIONS AND PLAN: We are going to check CT scan chest, abdomen and pelvis to clarify the tissue and subsequently we going to diurese the patient. Consultation with the Cardiology. Subsequently when we have the CAT scan we will consult the gastroenterology Dr. Kwan to evaluate on her previous endoscope that she did before and probably once process improved, we will be watching his kidney function as well and we will probably ask one of the Hematology Oncology to see the patient to evaluate with the significant changes from the bone marrow hyperactivity. MMODL / IJN: [id number] /
[2017-11-12] MEDS: METOPROLOL TARTRATE 50 MG TAB PO SCH (20:52)
[2017-11-12] MEDS: LISINOPRIL 10 MG TAB PO SCH (20:52)
[2017-11-12] MEDS: amLODIPine 5 MG TAB PO SCH (20:52)
[2017-11-12] MEDS: ATORVASTATIN 40 MG TAB PO SCH (20:53)
[2017-11-12] MEDS: DOXAZOSIN 4 MG TAB PO SCH (20:53)
[2017-11-12] MEDS: CLOPIDOGREL 75 MG TAB PO SCH (20:56)
[2017-11-12] MEDS ORDERED: FUROSEMIDE 10 MG/ML 2 ML VIAL IV SCH (21:00)
[2017-11-12 21:14] LABS: Creatine Kinase MB 1.1 ng/mL (0.0-2.4)
[2017-11-12 21:17] LABS: Troponin I 0.022 ng/mL (0.000-0.034)
[2017-11-13] MEDS: FUROSEMIDE 10 MG/ML 2 ML VIAL IV SCH ×5 (00:04→23:53)
[2017-11-13] MEDS: CEFEPIME 2 GM in SODIUM CHLORIDE 0.9% 50 ML IVPB SCH ×3 (00:57→16:12)
[2017-11-13] MEDS: PIPERACILLIN-TAZOBACTAM 3.375 GM in DEXTROSE/WATER 1 50ML.BAG IVPB SCH ×3 (03:04→20:00)
[2017-11-13 03:06] LABS: Anisocytosis Moderate; HCT 30.2 % (39.0-53.0); HGB 8.5 gm/dL (13.0-17.5); Hypochromasia Marked; MCH 22.6 pg (25.0-35.0); MCHC 28.1 g/dL (31.0-37.0); MCV 80.5 fL (80.0-100.0); Mean Platelet Volume 7.5; Microcytosis Moderate; Poikilocytosis Marked; RBC 3.75 m/uL (4.30-5.90); RDW 23.9 % (11.5-15.5)
[2017-11-13 03:12] LABS: Platelet Count 1020 k/uL (150-450)
[2017-11-13 03:44] LABS: ALT 36 U/L (21-72); AST 38 U/L (17-59); Alkaline Phosphatase 151 U/L (38-126); Anion Gap 10 mmol/L; Blood Urea Nitrogen 21 mg/dL (9-20); Calcium 8.9 mg/dL (8.4-10.2); Carbon Dioxide 24 mmol/L (22-30); Chloride 101 mmol/L (98-107); GGT 168 U/L (15-73); Glucose 79 mg/dL (74-99); Magnesium 1.7 mg/dL (1.6-2.3); Potassium 4.6 mmol/L (3.5-5.1); Sodium 135 mmol/L (137-145); Total Bilirubin 1.4 mg/dL (0.2-1.3); Total Protein 5.3 g/dL (6.3-8.2)
[2017-11-13 03:48] LABS: Creatine Kinase MB 1.2 ng/mL (0.0-2.4); Troponin I 0.022 ng/mL (0.000-0.034)
[2017-11-13 04:02] LABS: Band Neutrophils % 19 %; Metamyelocytes % 4 %; Neutrophils % (M) 71 %; Nucleated Red Blood Cells 2 /100 WBC (0-0); Total Cells Counted 200
[2017-11-13 04:03] LABS: Large Platelets Present; Polychromasia Present; Toxic Vacuolation Present
[2017-11-13 04:06] LABS: Ovalocytes Present; RBC Fragments Present
[2017-11-13 04:08] LABS: Target Cells Present
[2017-11-13] MEDS: HYDROcodone/APAP 5-325MG 1 EACH TAB PO PRN ×3 (04:48→23:53)
[2017-11-13] MEDS ORDERED: VANCOMYCIN 1,500 MG in SODIUM CHLORIDE 0.9% 250 ML IVPB SCH (06:00)
[2017-11-13] MEDS: PANTOPRAZOLE 40 MG TABLET PO SCH ×2 (06:25→16:46)
[2017-11-13] MEDS: VANCOMYCIN 1,500 MG in SODIUM CHLORIDE 0.9% 250 ML IVPB SCH ×2 (06:50→17:33)
[2017-11-13] MEDS ORDERED: PANTOPRAZOLE 40 MG TABLET PO SCH (07:30)
[2017-11-13] MEDS: ASPIRIN 81 MG PO SCH (08:18)
[2017-11-13] MEDS: LISINOPRIL 10 MG TAB PO SCH ×2 (08:18→20:41)
[2017-11-13] MEDS: SPIRONOLACTONE 25 MG TAB PO SCH (08:18)
[2017-11-13] MEDS: METOPROLOL TARTRATE 50 MG TAB PO SCH ×2 (08:18→20:41)
[2017-11-13] MEDS: FERROUS SULFATE 325 MG TAB PO SCH (08:18)
[2017-11-13] MEDS: IOHEXOL 350 MG/ML 25 ML BOTTLE (ORAL USE) PO PRN ×2 (08:59→09:49)
[2017-11-13] MEDS ORDERED: LISINOPRIL 10 MG TAB PO SCH (09:00)
--- NOTE | 2017-11-13 09:58 | ECHOF ---
Referral Reason:Congestive heart failure MEASUREMENTS -------- HEIGHT: 170.2 cm WEIGHT: 80.7 kg BP: 134/64 RVIDd: 3.5 cm (< 3.3) IVSd: 1.3 cm (0.6 - 1.1) LVIDd: 5.2 cm (3.9 - 5.3) LVPWd: 1.0 cm (0.6 - 1.1) IVSs: 1.6 cm LVIDs: 3.8 cm LVPWs: 1.4 cm LA Diam: 4.3 cm (2.7 - 3.8) Ao Diam: 3.3 cm (2.0 - 3.7) AV Cusp: 1.8 cm (1.5 - 2.6) LA Diam: 4.2 cm (2.7 - 3.8) MV EXCURSION: 19.523 mm (> 18.000) MV EF SLOPE: 121 mm/s (70 - 150) EPSS: 0.2 cm MV E Neville: 1.01 m/s MV DecT: 83 ms MV A Neville: 1.12 m/s MV E/A Ratio: 0.90 AR PHT: 314 ms RAP: 5.00 mmHg RVSP: 68.10 mmHg FINDINGS -------- Sinus rhythm. This was a technically good study. The left ventricular size is normal. There is mild concentric left ventricular hypertrophy. Overa ll left ventricular systolic function is low-normal with, an EF between 50 - 55 %. The right ventricle is mildly enlarged. The right ventricular septal wall is flattened in diastole and systole which is consistent with right ventricular volume and pressure overload. The right atrial size is normal. Trace to mild aortic regurgitation. Mild mitral regurgitation is present. Moderate tricuspid regurgitation present. There is moderate to severe pulmonary hypertension. The right ventricular systolic pressure, as measured by Doppler, is 68.10mmHg. Trace/mild (physiologic) pulmonic regurgitation. The aortic root size is normal. Normal inferior vena cava with normal inspiratory collapse consistent with estimated right atrial pre ssure of 5 mmHg. Small Pleural Effusion. CONCLUSIONS -------- 1. The left ventricular size is normal. 2. There is mild concentric left ventricular hypertrophy. 3. Overall left ventricular systolic function is low-normal with, an EF between 50 - 55 %. 4. The right ventricle is mildly enlarged. 5. The right ventricular septal wall is flattened in diastole and systole which is consistent with r ight ventricular volume and pressure overload. 6. Trace to mild aortic regurgitation. 7. Mild mitral regurgitation is present. 8. Moderate tricuspid regurgitation present. 9. There is moderate to severe pulmonary hypertension. 10. The right ventricular systolic pressure, as measured by Doppler, is 68.10mmHg. 11. Trace/mild (physiologic) pulmonic regurgitation. 12. The aortic root size is normal. 13. Normal inferior vena cava with normal inspiratory collapse consistent with estimated right atrial pressure of 5 mmHg. 14. Small Pleural Effusion. [employer]: Maria Isabel Julien RDCS
[2017-11-13 11:34] LABS: Iron Saturation 4.25 (15.00-50.00)
--- NOTE | 2017-11-13 12:39 | P.PN ---
Progress Note - Text This is an addendum to the dictated cardiology consultation. The patient has a known history of coronary disease, post CABG 10 years ago history of severe peripheral vascular disease as well as pulmonary hypertension by echocardiography in the past who presents with progressive dyspnea, peripheral edema, PND and orthopnea. He denies any chest discomfort. He has been evaluated by Dr. Kwan and underwent recently upper and lower endoscopy and was subsequently seen at [facility] for further evaluation. His presentation is consistent with CHF although his left ventricle systolic function is normal. The possibility of atypical infectious process in the lung cannot be excluded. I am very concerned about his hematological lab data was significant elevation of his white blood cells, red blood cells and platelets new over the last 2 months. The patient was scheduled as an outpatient to be seen by Dr. Miller in December. His EKG shows new T-wave inversion anteriorly as well and lead to 3 and aVF with a QS pattern inferiorly which is new compared to an EKG done in October 2017. From the cardiac standpoint I will continue diuresis at this time but I do not believe he is a candidate for aggressive cardiac workup at this time pending clarification of his hematological richer. Malignancy is definitely high likelihood especially with the recent weight loss and loss of muscle tone. Thank you for this consult we will follow.
--- NOTE | 2017-11-13 12:44 | P.CRDCN ---
History of Present Illness Consult date: 11/13/17 Requesting physician: Bryce Butler Consult reason: shortness of breath Chief complaint: Shortness of breath History of present illness: This is a pleasant 77-year-old gentleman who follows regularly with Dr. Kevin Pelayo in the office. He has a known history of coronary artery disease with prior bypass surgery, history of hypertension, hyperlipidemia, his bypass surgery was done in 2007 at which time he underwent CHARLES to the LAD, vein graft to the diagonal and obtuse marginal branch of the circumflex. Patient has peripheral vascular disease and haso had vascular procedures performed by Dr. Mcfaddne. Patient states that he underwent an EGD and colonoscopy by Dr. Kwan approximately 2 months ago at [facility], he was then referred to [facility] where he states he is having testing done, unsure exactly what it is for. Dates that since April of last year he has noticed weight loss and muscle wasting. He presents to the hospital on this occasion with symptoms of shortness of breath, positive PND and orthopnea, exertional dyspnea and peripheral edema. EKG on arrival here shows a sinus bradycardia with ST-T wave changes noted in the inferior anterior and lateral leads. All of these changes are new as compared with prior EKG. Chest x-ray, findings represent congestive heart failure with right pleural effusion and associated atelectasis. Chest and abdominal CT was performed, results are pending. Echocardiogram with Doppler study was performed which revealed an ejection fraction of 50-55%. Moderate to severe pulmonary hypertension. Blood pressure 146/60 with a heart rate in the 60s, 99% on 2 L of oxygen. Laboratory data was reviewed, white blood cell count on admission 33,000, 30,000 this morning. Hemoglobin 8.5, platelet count 1020, abnormal neutrophils, monocytes, myelocytes. This all appears to be new as of Dec of this year. Sodium 135, potassium 4.6, BUN 21, creatinine 1.0. Magnesium 1.7, bilirubin is elevated as well as GGT, alk phos, lactate dehydrogenase, BNP level 9640, troponins 0.019, 0.022, 0.022. At the time of my examination this morning, patient is comfortable, he states that his diuresis significant amount, swelling is improving. Past Medical History Past Medical History: Coronary Artery Disease (CAD), Hyperlipidemia, Hypertension, Prostate Disorder Additional Past Medical History / Comment(s): PAD History of Any Multi-Drug Resistant Organisms: None Reported Past Surgical History: Coronary Bypass/CABG, Heart Catheterization, Hernia Repair Additional Past Surgical History / Comment(s): cardiac cath ON 10/04/2014, 5-4- 16 [employer], PEPE INGUIANL HERNIA, [employer] HERNIA Past Anesthesia/Blood Transfusion Reactions: No Reported Reaction Past Psychological History: No Psychological Hx Reported Additional Psychological History / Comment(s): PT LIVES AT HOME WITH HIS , IS INDEPENDANT,RETIRED FROM [employer]. NO HX, Smoking Status: Former smoker Past Alcohol Use History: Occasional Additional Past Alcohol Use History / Comment(s): STARTED SMOKING AT AGE 16 QUIT AT AGE 40 SMOKED 1 1/2 PPD Past Drug Use History: None Reported - Past Family History Brother(s) Family Medical History: Cancer Additional Family Medical History / Comment(s): 2 with lung and 1 with prostate Mother Family Medical History: Myocardial Infarction ([place]) Father Additional Family Medical History / Comment(s): AT AGE 83 FROM "HARDENING OF THE ARTERIES" Medications and Allergies Home Medications Medication Instructions Recorded Confirmed Type Atorvastatin [Lipitor] 40 mg PO HS 09/27/14 11/12/17 History Metoprolol Tartrate [Lopressor] 50 mg PO BID 09/27/14 11/12/17 History Terazosin [Hytrin] 5 mg PO HS 09/27/14 11/12/17 History Enalapril [Vasotec] 5 mg PO DAILY #30 tablet 10/12/14 11/12/17 Rx Cilostazol [Pletal] 50 mg PO BID 01/01/17 11/12/17 History Clopidogrel [Plavix] 75 mg PO HS 01/01/17 11/12/17 History Aspirin EC [Ecotrin Low Dose] 81 mg PO DAILY 10/05/17 11/12/17 History Ferrous Sulfate [Feosol] 325 mg PO DAILY 10/05/17 11/12/17 History Furosemide [Lasix] 40 mg PO DAILY 10/05/17 11/12/17 History Pantoprazole [Protonix] 80 mg PO DAILY 11/12/17 11/12/17 History Spironolactone [Aldactone] 25 mg PO DAILY 11/12/17 11/12/17 History Allergies Allergy/AdvReac Type Severity Reaction Status Date / Time No Known Allergies Allergy Verified 11/12/17 14:32 Physical Exam Vitals: Vital Signs Temp Pulse Pulse Resp BP BP Pulse Ox 11/13/17 11:10 61 20 11/13/17 11:09 97.0 F L 61 20 146/65 99 11/13/17 08:00 97.6 F 63 18 165/70 97 11/13/17 04:00 97.6 F 60 19 134/64 95 11/13/17 00:00 97.1 F L 65 19 137/80 95 11/12/17 20:00 97.3 F L 60 19 155/68 97 11/12/17 17:26 98.7 F 59 L 16 154/71 96 11/12/17 17:00 98.8 F 60 18 187/75 97 11/12/17 16:50 98.8 F 60 18 187/75 97 11/12/17 16:45 56 L 16 154/70 97 11/12/17 16:24 57 L 18 145/67 95 11/12/17 14:46 57 L 22 171/77 98 11/12/17 14:45 26 H 11/12/17 13:44 97.6 F 76 18 157/69 96 Intake and Output 11/12/17 11/13/17 11/13/17 22:59 06:59 14:59 Intake Total 200 50 350 Output Total 850 500 Balance 200 -800 -150 Intake: Intake, IV Titration 50 350 Amount Cefepime 2 gm In Sodium 50 50 Chloride 0.9% 50 ml @ 100 mls/hr IVPB Q8HR [facility] Rx# :[id number] Piperacillin-Tazobactam 3 50 .375 gm In Dextrose/Water 1 50ml.bag @ 12.5 mls/hr IVPB Q8H [facility] Rx#: [id number] Vancomycin 1,500 mg In 250 Sodium Chloride 0.9% 250 ml @ 125 mls/hr IVPB Q12H [facility] Rx#:[id number] Oral 200 Output: Urine 850 500 Other: Voiding Method Toilet Toilet Toilet Urinal Urinal # Voids 2 1 1 # Bowel Movements 2 Weight 83.46 kg 80.9 kg PHYSICAL EXAMINATION: HEENT: Head is atraumatic, normocephalic. Pupils equal, round. Neck is supple. There is elevated jugular venous pressure. Bilateral carotid bruits are audible HEART EXAMINATION: S1 and S2 systolic murmur is heard. CHEST EXAMINATION: Lungs are clear with diminished air entry to bilateral bases. ABDOMEN: Soft, nontender. Bowel sounds are heard. No organomegaly noted. EXTREMITIES: 2+ peripheral pulses with trace evidence of peripheral edema and no calf tenderness noted. NEUROLOGIC patient is awake, alert and oriented -3. . Results 11/13/17 02:55 11/13/17 02:55 Cardiac Enzymes 11/12/17 11/12/17 11/12/17 Range/Units 14:40 14:40 20:26 AST 44 (17-59) U/L Lactate Dehydrogenase (313-618) U/L CK-MB (CK-2) 1.3 1.1 (0.0-2.4) ng/mL Troponin I 0.019 0.022 (0.000-0.034) ng/mL 11/13/17 11/13/17 11/13/17 Range/Units 02:55 02:55 02:55 AST 38 (17-59) U/L Lactate Dehydrogenase 1694 H (313-618) U/L CK-MB (CK-2) 1.2 (0.0-2.4) ng/mL Troponin I 0.022 (0.000-0.034) ng/mL Coagulation 11/12/17 Range/Units 14:40 PT 13.7 H (9.0-12.0) sec APTT 26.8 (22.0-30.0) sec CBC 11/12/17 11/13/17 Range/Units 14:40 02:55 WBC 33.9 H* 30.0 H* (3.8-10.6) k/uL RBC 4.00 L 3.75 L (4.30-5.90) m/uL Hgb 9.0 L 8.5 L (13.0-17.5) gm/dL Hct 31.3 L 30.2 L (39.0-53.0) % Plt Count 1022 H* 1020 H* (150-450) k/uL Comprehensive Metabolic Panel 11/12/17 11/13/17 Range/Units 14:40 02:55 Sodium 131 L 135 L (137-145) mmol/L Potassium 4.9 4.6 (3.5-5.1) mmol/L Chloride 101 101 (98-107) mmol/L Carbon Dioxide 22 24 (22-30) mmol/L BUN 21 H 21 H (9-20) mg/dL Creatinine 0.95 1.00 (0.66-1.25) mg/dL Glucose 100 H 79 (74-99) mg/dL Calcium 9.0 8.9 (8.4-10.2) mg/dL AST 44 38 (17-59) U/L ALT 36 36 (21-72) U/L Alkaline Phosphatase 165 H 151 H (38-126) U/L Total Protein 5.5 L 5.3 L (6.3-8.2) g/dL Albumin 3.2 L 3.0 L (3.5-5.0) g/dL Current Medications Generic Name Dose Route Start Last Admin Trade Name Freq PRN Reason Stop Dose Admin Hydrocodone Bitart/Acetaminophen 1 each 11/12/17 16:04 11/13/17 04:48 [place] 5-325 PO 1 each Q4HR PRN Administration Moderate Pain Amlodipine Besylate 5 mg 11/12/17 21:00 11/12/17 20:52 Norvasc PO 5 mg HS JOSE Administration Aspirin 81 mg 11/13/17 09:00 11/13/17 08:18 Aspirin PO 81 mg DAILY JOSE Administration Atorvastatin Calcium 40 mg 11/12/17 21:00 11/12/17 20:53 Lipitor PO 40 mg HS JOSE Administration Barium Sulfate 450 ml 11/12/17 18:39 Readi-Cat 2 PO 11/13/17 18:[address] Scan Clopidogrel Bisulfate 75 mg 11/12/17 21:00 11/12/17 20:56 Plavix PO Not Given HS JOSE Doxazosin Mesylate 4 mg 11/12/17 21:00 11/12/17 20:53 Cardura PO 4 mg HS JOSE Administration Enalaprilat 1.25 mg 11/12/17 18:06 11/12/17 18:43 Vasotec IVP 1.25 mg Q4HR PRN Administration Blood Pressure - High Ferrous Sulfate 325 mg 11/13/17 09:00 11/13/17 08:18 Feosol PO 325 mg DAILY JOSE Administration Furosemide 20 mg 11/13/17 00:00 11/13/17 12:08 Lasix IV 20 mg Q6HR JOSE Administration Cefepime HCl 2 gm/ Sodium 50 mls @ 100 mls/hr 11/13/17 00:00 11/13/17 10:16 Chloride IVPB 100 mls/hr Q8HR [facility] Administration Vancomycin HCl 1,500 mg/ 250 mls @ 125 mls/hr 11/13/17 06:00 11/13/17 06:50 Sodium Chloride IVPB 125 mls/hr Q12H [facility] Administration Piperacillin/Tazobactam/ 50 mls @ 12.5 mls/hr 11/12/17 19:00 11/13/17 12:07 Dextrose 3.375 gm/ IV Solution IVPB 12.5 mls/hr Q8H JOSE Administration Iohexol 25 ml 11/12/17 18:52 11/13/17 09:49 Omnipaque 350 Mg/Ml (For Oral Use) PO 11/13/17 18:54 25 ml Q60M PRN Administration CT Scan Lisinopril 10 mg 11/12/17 21:00 11/13/17 08:18 Zestril PO 10 mg BID JOSE Administration Metoprolol Tartrate 50 mg 11/12/17 21:00 11/13/17 08:18 Lopressor PO 50 mg BID JOSE Administration Miscellaneous Information 1 each 11/12/17 18:39 Rx Info: Iv Contrast Was Given MISCELLANE 11/14/17 18:42 DAILY PRN Per Protocol Miscellaneous Information 1 each 11/12/17 18:52 Rx Info: Iv Contrast Was Given MISCELLANE 11/14/17 18:54 DAILY PRN Per Protocol Naloxone HCl 0.2 mg 11/12/17 16:04 Narcan IV Q2M PRN Opioid Reversal Ondansetron HCl 4 mg 11/12/17 16:04 Zofran IVP Q8HR PRN Nausea And Vomiting Pantoprazole Sodium 40 mg 11/13/17 07:30 11/13/17 06:25 Protonix PO 40 mg AC-BID JOSE Administration Spironolactone 25 mg 11/13/17 09:00 11/13/17 08:18 Aldactone PO 25 mg DAILY JOSE Administration Intake and Output 11/12/17 11/13/17 11/13/17 22:59 06:59 14:59 Intake Total 200 50 350 Output Total 850 500 Balance 200 -800 -150 Intake: Intake, IV Titration 50 350 Amount Cefepime 2 gm In Sodium 50 50 Chloride 0.9% 50 ml @ 100 mls/hr IVPB Q8HR [facility] Rx# :[id number] Piperacillin-Tazobactam 3 50 .375 gm In Dextrose/Water 1 50ml.bag @ 12.5 mls/hr IVPB Q8H [facility] Rx#: [id number] Vancomycin 1,500 mg In 250 Sodium Chloride 0.9% 250 ml @ 125 mls/hr IVPB Q12H [facility] Rx#:[id number] Oral 200 Output: Urine 850 500 Other: Voiding Method Toilet Toilet Toilet Urinal Urinal # Voids 2 1 1 # Bowel Movements 2 Weight 83.46 kg 80.9 kg 11/13/17 02:55 11/13/17 02:55 EKG Interpretations (text) EKG is normal sinus rhythm with ST-T wave changes in the inferior lateral and anterior leads. Assessment and Plan Plan: Assessment and plan #1 congestive heart failure, echocardiogram with Doppler study was performed revealed an ejection fraction of 50-55%. Moderate to severe pulmonary hypertension. #2 known history of coronary artery disease with prior bypass surgery in 2007 at which time patient underwent a CHARLES to the LAD, vein graft to the diagonal and obtuse marginal. #3 hypertension #4 hyperlipidemia #5 peripheral vascular disease with prior vascular procedures. #6 abnormality in weight blood cell count, hemoglobin and platelet count. Hematology consult requested. #7 significant EKG changes. Troponins negative 3. Plan Hematology has been requested to see the patient in consult today. We'll continue current dose of IV Lasix. Continue to monitor intake and output along with daily weights daily lytes BUN and creatinine. Patient has significant change noted in his blood work, appreciate input from hematology. Overall prognosis guarded. DNP note has been reviewed, I agree with a documented findings and plan of care. Patient was seen and examined.
--- NOTE | 2017-11-13 13:53 | CT ---
EXAMINATION TYPE: CT ChestAbdPelvis w con DATE OF EXAM: 11/13/2017 COMPARISON: Chest x-ray from yesterday. CT abdomen and pelvis from January 01, 2017. HISTORY: Lower esophageal malignancy and hepatomegaly and CHF per order. Generalized abdominal pain a nd shortness of breath per patient. CT DLP: 1206.4 mGycm. Automated Exposure Control for Dose Reduction was Utilized. CONTRAST: CT scan of the thorax, abdomen and pelvis is performed with IV Contrast, patient injected with 100 mL of Omnipaque 300. FINDINGS: LUNGS: There is moderate size right pleural effusion and small to moderate-sized left pleural effusio n identified on CT. There is associated compressive atelectasis in the right lung base. There are xander cified pleural plaques at level of bilateral diaphragms redemonstrated. There is respiratory motion a rtifact making evaluation suboptimal particularly for subcentimeter nodularity. There is calcified 3 mm subpleural nodule right middle lobe axial image 37. I suspect some tiny focal loculated pleural fl uid anterior medially axial image 14, low dense mass felt less likely. MEDIASTINUM: There are calcified subcentimeter bilateral hilar lymph nodes. There are prominent but s ubcentimeter prevascular lymph nodes. There is borderline right paratracheal lymph node measuring 1.5 x 1.0 cm axial image 21 Post CABG changes with mediastinal clips and sternal wires is redemonstrated . There is persistent mild cardiomegaly. Tiny calcified pericardium felt present axial image 32 towar ds apex OTHER: No additional significant abnormality is seen. LIVER/GB: Liver remains diffusely low dense suggesting fatty infiltration. Gallbladder is now not vis ualized and presumed surgically absent. There is new perihepatic ascites along right lateral margin e xtending inferiorly. Liver is overall normal in size slightly more prominent versus prior CT where it was felt small. PANCREAS: No significant abnormality is seen. SPLEEN: Worsening splenomegaly is felt present in spleen now measures 17.1 cm long axis axial image 6 3. Small amount of ascites along the superior lateral portion is seen. ADRENALS: No significant abnormality is seen. KIDNEYS: Excretion phase not documented. Bowel: Small hiatal hernia is redemonstrated. Stomach is poorly distended and thus suboptimally evalu ated. There is no suspicious small or large bowel dilatation. Sigmoid colonic diverticulosis is prese nt. GENITAL ORGANS: Prostate gland is enlarged suggesting BPH, correlate clinically. Mild wall thickening and bladder is redemonstrated presumed product of enlarged prostate gland. Lymph nodes: No suspicious greater than 1 cm abdominal or pelvic lymph nodes are seen. OSSEOUS STRUCTURES: There is multilevel facet arthropathy in the mid to lower lumbar spine. Right-ariadna ed pars defects L5 level is redemonstrated on sagittal images. There is mild to moderate joint space loss in both hips redemonstrated. OTHER: There is moderate to severe calcified atherosclerotic change of aorta extending into iliac bra nch vessels. Severe calcified plaque is seen in visualized portion of both common and official femora l arteries bilaterally. There is small amount of ascites in the paracolic gutters bilaterally. There is moderate amount of fr ee fluid in the pelvis. IMPRESSION: 1. CHF exacerbation is felt present as there is mild cardiomegaly with moderate size right and small to moderate-sized left pleural effusion identified. Underlying prior asbestos exposure changes are on ce again noted. 2. Worsening splenomegaly is noted. 3. New small amount of abdominal and pelvic ascites as detailed above, etiology uncertain.
--- NOTE | 2017-11-13 15:03 | PN ---
PROGRESS NOTE ATTENDING PHYSICIAN: PCP is Dr. Franklin The progress note dictated by Dr. Butler in the temporary absence of Dr. Franklin. DATE OF SERVICE: 11/13/2017 77-year-old white male, . The patient admitted with shortness of breath was progressively worsening and was admitted with congestive heart failure. The patient found also that has a possibility with examination of arthritis as well as enlarged liver and spleen and subsequently we did a CT scan because of questionable pneumonia. CT scan of the chest and abdomen and pelvis. The results indicating that he has the liver diffusely dense suggestive of fatty infiltration. Gallbladder not visualized and there is the new perihepatic ascites along the right lateral margin extending inferiorly and the liver is normal, slightly more prominent versus the prior CT scan where was felt to be small. Also was finding the spleen is enlargement, worsening and measuring 17.1 cm in the long axis with small amount of bursitis. Adrenal gland is normal. Kidney excretion was normal small bowel. He had a small hiatal hernia with a poorly distended stomach. Genital: He had enlarged prostate lymph nodes. No suspicious. There is also moderate severe calcified atherosclerosis of the aorta extending to the iliac branch vessels and severe calcified plaques seen in the visualized portion of both common and official femoral arteries bilateral. Small amount of ascites in the pericolic gutter bilaterally and moderate amount of the free fluid in the pelvis. The conclusion is that we have congestive heart failure exacerbation is felt to be present with mild cardiomegaly and moderate size right and small to moderate-sized left pleural effusion and also history of asbestos exposure, worsening of the splenomegaly and new small amount of abdominal and pelvic ascites. The etiology is unclear. Currently when I discussed with him his complaint, he said that he has some discomfort in the left side of the upper abdomen which is indicated by the spleen and fullness. On the physical exam, the patient temperature 97 orally and pulse 61, respiratory rate 20 and his blood pressure 146/65, and mean is 92. His respiratory rate 20 and his pulse rate 61 per minute, blood pressure stable and oxygenation 99% on 2 L. LABORATORY: His white count is still persistent 30, his anemia 8.5, hemoglobin with hematocrit 30.2, and his platelet count 1020 with a thrombocytosis. He has his neutrophil 27 with the underlying presence of toxic evacuation, large platelet, polychromasia and hypochromia as well as other entities indicating activity of the bone marrow. Dr. Jenog did consult Dr. Miller, who the patient was planning to see him in December of this year. His lactic acid was normal at 0.9. His sodium 135, potassium 4.6, chloride 101, carbon dioxide 24, and BUN of 21. His estimated glomerular filtration rate more than 60 and glucose 79. On the iron he found that his iron 15, total iron-binding capacity is 353, iron saturation is 4.25, and serum ferritin 38, total bilirubin 1.4, and GGT was 168, which is elevated and alkaline phosphatase is elevated, lactic acid dehydrogenase was 1694, and his troponin stayed stable and with the underlying elevated LDH and severe leukocytosis and activity of the bone marrow with multiple immature cells. Consultation with the Oncology/Hematology and as well as the CT scan did not indicate pneumonia. However, patient at this time on 3 antibiotics. We will be also consulting the Infectious Disease as well for evaluation. PHYSICAL EXAM: Vital signs stable with blood pressure 146/65 on 2 L nasal cannula. HEENT head was normocephalic, atraumatic. Pupils equal, reactive and conjunctivae is pink. Sclerae was nonicteric. The chest was clear to auscultation and percussion and the heart was regular sinus rhythm and abdomen was soft with positive bowel sounds and the history of rales has been resolved and the edema of the lower extremities, improving. Patient is able to go to the bathroom and able to eat. We consulted also the Infectious Disease for evaluation and treatment. If the underlying hematologic malignancy is considered with the presence of high leukocytic count and enlarged spleen, high LDH. MMODL / IJN: [id number] /
--- NOTE | 2017-11-13 20:35 | P.CONS ---
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 Patient started noticing some decrease in appetite, more fatigue and some weakness. His symptoms progressed over the last month to include shortness of breath and swelling, the last week patient was unable to lay down without struggling to breathe, his weakness worsened, he states that he is now just "skin and bones", patient is positive for early satiety and feels full quickly when eating or drinking, denies nausea or vomiting, he does notice left upper quadrant discomfort and fullness, denied fevers, cough, pleuritic chest pain, denies acute changes in bowel or bladder habits, no bleeding, petechiae or new or unusual pain. He had Upper GI recently, said he needs something to be "burned", states it was not cancerous. 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 NO HX, Smoking Status: Former smoker Past Alcohol Use History: Occasional Additional Past Alcohol Use History / Comment(s): STARTED SMOKING AT AGE 16 QUIT AT AGE 40 SMOKED 1 1/2 PPD Past Drug Use History: None Reported - Past Family History Brother(s) Family Medical History: Cancer Additional Family Medical History / Comment(s): 2 with lung and 1 with prostate Mother Family Medical History: Myocardial Infarction ([place]) Father Additional Family Medical History / Comment(s): AT AGE 83 FROM "HARDENING OF THE ARTERIES" Medications and Allergies Home Medications Medication Instructions Recorded Confirmed Type Atorvastatin [Lipitor] 40 mg PO HS 09/27/14 11/12/17 History Metoprolol Tartrate [Lopressor] 50 mg PO BID 09/27/14 11/12/17 History Terazosin [Hytrin] 5 mg PO HS 09/27/14 11/12/17 History Enalapril [Vasotec] 5 mg PO DAILY #30 tablet 10/12/14 11/12/17 Rx Cilostazol [Pletal] 50 mg PO BID 01/01/17 11/12/17 History Clopidogrel [Plavix] 75 mg PO HS 01/01/17 11/12/17 History Aspirin EC [Ecotrin Low Dose] 81 mg PO DAILY 10/05/17 11/12/17 History Ferrous Sulfate [Feosol] 325 mg PO DAILY 10/05/17 11/12/17 History Furosemide [Lasix] 40 mg PO DAILY 10/05/17 11/12/17 History Pantoprazole [Protonix] 80 mg PO DAILY 11/12/17 11/12/17 History Spironolactone [Aldactone] 25 mg PO DAILY 11/12/17 11/12/17 History Allergies Allergy/AdvReac Type Severity Reaction Status Date / Time No Known Allergies Allergy Verified 11/12/17 14:32 Physical Exam Vitals: Vital Signs Temp Pulse Resp BP Pulse Ox 11/13/17 16:00 97.5 F L 64 18 178/74 97 11/13/17 11:10 61 20 11/13/17 11:09 97.0 F L 61 20 146/65 99 11/13/17 08:00 97.6 F 63 18 165/70 97 11/13/17 04:00 97.6 F 60 19 134/64 95 11/13/17 00:00 97.1 F L 65 19 137/80 95 Intake and Output 11/13/17 11/13/17 11/13/17 06:59 14:59 22:59 Intake Total 50 450 640 Output Total 850 500 350 Balance -800 -50 290 Intake: Intake, IV Titration 50 350 Amount Cefepime 2 gm In Sodium 50 50 Chloride 0.9% 50 ml @ 100 mls/hr IVPB Q8HR [facility] Rx# :[id number] Piperacillin-Tazobactam 3 50 .375 gm In Dextrose/Water 1 50ml.bag @ 12.5 mls/hr IVPB Q8H [facility] Rx#: [id number] Vancomycin 1,500 mg In 250 Sodium Chloride 0.9% 250 ml @ 125 mls/hr IVPB Q12H [facility] Rx#:[id number] Oral 100 640 Output: Urine 850 500 350 Other: Voiding Method Toilet Toilet Toilet Urinal Urinal Urinal # Voids 1 1 1 # Bowel Movements 2 Weight 80.9 kg - Constitutional General appearance: average body habitus, cooperative, no acute distress - EENT Eyes: anicteric sclerae, EOMI, normal appearance ENT: hard of hearing, normal oropharynx - Neck Neck: no lymphadenopathy - Respiratory Respiratory: bilateral: CTA - Cardiovascular Rhythm: regular Heart sounds: normal: S1, S2 leg Peripheral Edema: bilateral: None - Gastrointestinal General gastrointestinal: distended, normal bowel sounds, splenomegaly (3 fingerbreadths below costal margin), tenderness Localized gastrointestinal: tender: LUQ - Integumentary Integumentary: pale - Neurologic Neurologic: CNII-XII intact - Musculoskeletal Musculoskeletal: generalized weakness, strength equal bilaterally - Psychiatric Psychiatric: A&O x's 3, appropriate affect, intact judgment & insight Results CBC & Chem 7: 11/13/17 02:55 11/13/17 02:55 Labs: Abnormal Lab Results - Last 24 Hours (Table) 11/12/17 11/13/17 11/13/17 Range/Units 20:26 02:55 02:55 WBC (3.8-10.6) k/uL RBC (4.30-5.90) m/uL Hgb (13.0-17.5) gm/dL Hct (39.0-53.0) % MCH (25.0-35.0) pg MCHC (31.0-37.0) g/dL RDW (11.5-15.5) % Plt Count (150-450) k/uL Neutrophils # (Manual) (1.3-7.7) k/uL Lymphocytes # (Manual) (1.0-4.8) k/uL Metamyelocytes # (Man) (0) k/uL Nucleated RBCs (0-0) /100 WBC Sodium (137-145) mmol/L BUN (9-20) mg/dL Iron 15 L (65-175) ug/dL Iron Saturation 4.25 L (15.00-50.00) Total Bilirubin (0.2-1.3) mg/dL GGT (15-73) U/L Alkaline Phosphatase (38-126) U/L Lactate Dehydrogenase (313-618) U/L Total Creatine Kinase 34 L 44 L (55-170) U/L Total Protein (6.3-8.2) g/dL Albumin (3.5-5.0) g/dL 11/13/17 11/13/17 11/13/17 Range/Units 02:55 02:55 02:55 WBC 30.0 H* (3.8-10.6) k/uL RBC 3.75 L (4.30-5.90) m/uL Hgb 8.5 L (13.0-17.5) gm/dL Hct 30.2 L (39.0-53.0) % MCH 22.6 L (25.0-35.0) pg MCHC 28.1 L (31.0-37.0) g/dL RDW 23.9 H (11.5-15.5) % Plt Count 1020 H* (150-450) k/uL Neutrophils # (Manual) 27.00 H (1.3-7.7) k/uL Lymphocytes # (Manual) 0.90 L (1.0-4.8) k/uL Metamyelocytes # (Man) 1.20 H (0) k/uL Nucleated RBCs 2 H (0-0) /100 WBC Sodium 135 L (137-145) mmol/L BUN 21 H (9-20) mg/dL Iron (65-175) ug/dL Iron Saturation (15.00-50.00) Total Bilirubin 1.4 H (0.2-1.3) mg/dL GGT 168 H (15-73) U/L Alkaline Phosphatase 151 H (38-126) U/L Lactate Dehydrogenase 1694 H (313-618) U/L Total Creatine Kinase (55-170) U/L Total Protein 5.3 L (6.3-8.2) g/dL Albumin 3.0 L (3.5-5.0) g/dL Microbiology - Last 24 Hours (Table) 11/12/17 14:40 Blood Culture - Preliminary Blood No Growth after [address] scan - abdomen: report reviewed CT scan - chest: report reviewed CT scan - pelvis: report reviewed Assessment and Plan (1) Thrombocytosis Current Visit: Yes Status: Acute Priority: High Code(s): D47.3 - ESSENTIAL (HEMORRHAGIC) THROMBOCYTHEMIA SNOMED Code(s): 9397840 (2) Anemia Current Visit: Yes Status: Acute Priority: High Code(s): D64.9 - ANEMIA, UNSPECIFIED SNOMED Code(s): 831419988 (3) Leukocytosis Current Visit: Yes Status: Acute Priority: High Code(s): D72.829 - ELEVATED WHITE BLOOD CELL COUNT, UNSPECIFIED SNOMED Code(s): 172834266 Plan: Did discuss with the patient his very abnormal labs and that currently there is no clear answer as to why this setting change, patient had normal labs recorded in this EMR up until October 2017 (he was actually referred to Dr. Miller by Dr. Franklin for abnormal labs and was going to be seen in a few weeks). 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 Dr. Miller reviewed the case with me in detail. We will be scheduling a bone marrow for Saturday morning. I did review the procedure with the patient including risks for bleeding, postprocedure discomfort and infection, patient verbalized understanding and is agreeable to proceed. Patient's abnormal labs, no acute intervention. Patient is on aspirin and Plavix, he has been supplemented with iron and he is on antibiotics. CBC daily.
[2017-11-13] MEDS: CLOPIDOGREL 75 MG TAB PO SCH (20:41)
[2017-11-13] MEDS: ATORVASTATIN 40 MG TAB PO SCH (20:41)
[2017-11-13] MEDS: amLODIPine 5 MG TAB PO SCH (20:41)
[2017-11-13] MEDS: DOXAZOSIN 4 MG TAB PO SCH (20:41)
--- NOTE | 2017-11-13 23:15 | CONS ---
CONSULTATION DATE OF SERVICE: 11/13/2017 REASON FOR CONSULTATION: Leukocytosis, infection and antibiotic recommendation. HISTORY OF PRESENT ILLNESS: The patient is a 77-year-old male presenting to the ER at [facility] with chief complaint of increasing shortness of breath. The patient's symptom has been going on for almost a month with progressive increasing shortness of breath initially on exertion and even at rest. The patient denies significant chest pain. The patient denies having any cough. No URI symptoms. The patient did have some vague left lower abdominal pain few days ago; however, that has subsequently resolved, was mild dull aching 2-3 out of 10 and no radiation. The patient denies having any nausea, no vomiting and no diarrhea. Prior to presentation to the hospital with these symptoms, the patient has been evaluated by the ER physician. The patient did have a chest x-ray that shows findings likely representing congestive heart failure with associated atelectasis. The patient also had a CT of the chest, abdomen and pelvis that has been suggestive of the features of CHF and worsening splenomegaly. Patient does not have any fever since admission and no fever prior to presentation to the hospital. However, he was noticed to have elevated white count of 33,000, also elevated platelet count and anemia. The patient has been treated with multiple antibiotics, including cefepime and vancomycin that was started in the ER. Zosyn was subsequently added and I was asked to see the patient for further recommendation regarding antibiotic therapy. REVIEW OF SYSTEMS: CONSTITUTIONALLY: Positive for weakness, but no fever. EYES: No complaint. ENT: No complaint. RESPIRATORY: As per HPI. CARDIOVASCULAR: No complaint. GENITOURINARY: No complaint. GASTROINTESTINAL: As per HPI. MUSCULOSKELETAL: No complaint. INTEGUMENTARY: No complaint. PSYCHOLOGICAL: No complaint. ENDOCRINE: No complaint. NEUROLOGIC: No complaint. PAST MEDICAL HISTORY: Hypertension, hyperlipidemia, coronary artery disease, history of prostate disorder. PAST SURGICAL HISTORY: Coronary bypass grafting, hernia repair, heart catheterization. SOCIAL HISTORY: Remote history of smoking, quit at the age of 40, started at the age of 16. No drug use. FAMILY HISTORY: Brother with history of prostate cancer. Mother with history of HI. ALLERGIES: No known drug allergies. MEDICATIONS: Include the patient is currently on: 1. Glen. 2. Norvasc. 3. Aspirin. 4. Lipitor. 5. Plavix. 6. Cardura. 7. Vasotec. 8. Iron sulfate. 9. Lasix. 10.Zestril. 11.Lopressor. 12.Narcan. 13.Zofran. 14.Protonix. 15.Pip/tazobactam. 16.Cefepime and. 17.Vancomycin. EXAMINATION: Blood pressure 178/74 with a pulse of 64, temperature of 97.5, 97% on 2L nasal cannula. General description is an elderly male lying in bed in no distress with no tachypnea or accessory muscle of respiration use. HEENT shows pallor. There is no scleral icterus. Oral mucous membranes are dry. No pharyngeal erythema or thrush NECK: Trachea is central. There is no thyromegaly. LUNGS: Unlabored breathing. Decreased breath sounds in the bases. No wheeze. HEART: S1, S2. Regular rate and rhythm. No murmur ABDOMEN: Soft. No tenderness. No guarding. No rigidity. No organomegaly EXTREMITIES: No edema of the feet. SKIN: No rash or mass palpable. NEUROLOGICALLY: The patient is awake, alert, oriented x3. Mood and affect normal. LABS: Hemoglobin is 8.5, white count of 30,000, platelet count is 1020. BUN of 21, creatinine 1.0. Liver enzymes have been normal. Lactic acid was 0.9. Chest x- ray and CT report as mentioned above. DIAGNOSTIC IMPRESSION: Patient with significantly elevated white count with evidence of thrombocytosis and anemia along with splenomegaly, more likely representing underlying hematological malignancy. Clinically doubt any infectious etiology in patient who is not running any fever. His main symptom has been increasing shortness of breath. This could be more likely to underlying pleural effusion and clinically doubt pneumonia. However the patient will need to be covered with antibiotics to cover for possible pneumonia or abdominal source while workup is completed PLAN: 1. We will obtain UA and cultures to complete the workup. 2. Obtain sputum for Gram stain, sensitivity if he is able to provide us a sample. 3. Will keep the patient on Zosyn; however, discontinue the cefepime as well as the vancomycin to decrease the risk of nephrotoxicity. 4. Await bone marrow aspirate per the Hematology/Oncology and that will help in the diagnosis. 5. Will follow up on his clinical condition and culture to further adjust his medication if needed. Thank you for this consultation. Will follow the patient along with you. ALEXJAZMINL / IJN: [id number] / LORNA
[2017-11-13 23:37] LABS: Appearance,Urine Clear (Clear); Bilirubin,Urine Negative (Negative); Blood,Urine Negative (Negative); Color,Urine Yellow; Glucose,Urine (UA) Negative (Negative); Ketones,Urine Negative (Negative); Leukocyte Esterase,Urine Negative (Negative); Mucus,Urine Rare /hpf; Nitrite,Urine Negative (Negative); PH, Urine 5.5 (5.0-8.0); Protein,Urine 1+ (Negative); RBC,Urine 1 /hpf (0-5); Specific Gravity,Urine 1.024 (1.001-1.035); Sperm,Urine Rare /hpf; Urobilinogen,Urine <2.0 mg/dL (<2.0); WBC,Urine 1 /hpf (0-5)
[2017-11-14] MEDS: PIPERACILLIN-TAZOBACTAM 3.375 GM in DEXTROSE/WATER 1 50ML.BAG IVPB SCH ×3 (03:30→23:16)
[2017-11-14] MEDS: FUROSEMIDE 10 MG/ML 2 ML VIAL IV SCH ×3 (05:55→20:34)
[2017-11-14 06:18] LABS: Anisocytosis Marked; HCT 28.9 % (39.0-53.0); HGB 8.1 gm/dL (13.0-17.5); Hypochromasia Marked; MCH 21.9 pg (25.0-35.0); MCHC 28.1 g/dL (31.0-37.0); MCV 77.8 fL (80.0-100.0); Mean Platelet Volume 8.9; Microcytosis Moderate; Poikilocytosis Moderate; RBC 3.71 m/uL (4.30-5.90); RDW 24.9 % (11.5-15.5)
[2017-11-14 06:19] LABS: Anion Gap 9 mmol/L; Blood Urea Nitrogen 18 mg/dL (9-20); Carbon Dioxide 27 mmol/L (22-30); Chloride 100 mmol/L (98-107); Glucose 93 mg/dL (74-99); Potassium 4.2 mmol/L (3.5-5.1); Sodium 136 mmol/L (137-145)
[2017-11-14 06:24] LABS: Platelet Count 920 k/uL (150-450)
[2017-11-14] MEDS: PANTOPRAZOLE 40 MG TABLET PO SCH ×2 (06:30→18:15)
[2017-11-14 06:37] LABS: Band Neutrophils % 12 %; Metamyelocytes % 2 %; Myelocytes % 1 %; Neutrophils % (M) 73 %; Nucleated Red Blood Cells 3 /100 WBC (0-0); Total Cells Counted 200
[2017-11-14 06:38] LABS: Eosinophils # (M) 0.28 k/uL (0-0.7); Lymphocytes # (M) 1.94 k/uL (1.0-4.8); Metamyelocytes # (M) 0.55 k/uL (0); Monocytes # (M) 1.11 k/uL (0-1.0); Myelocytes # (M) 0.28 k/uL (0); WBC 27.7 k/uL (3.8-10.6)
[2017-11-14 06:39] LABS: Anisocytosis (M) Present; Hypochromasia (M) Present; Ovalocytes Present; Poikilocytosis (M) Present; Polychromasia Present; RBC Fragments Present
[2017-11-14] MEDS ORDERED: VANCOMYCIN IV PER PHARMACY 1 EACH MISC MISCELLANE PRN (06:39)
[2017-11-14] MEDS ORDERED: VANCOMYCIN 1,250 MG in SODIUM CHLORIDE 0.9% 250 ML IVPB ONE (07:00)
[2017-11-14] MEDS: ASPIRIN 81 MG PO SCH (07:52)
[2017-11-14] MEDS: FERROUS SULFATE 325 MG TAB PO SCH (07:52)
[2017-11-14] MEDS: LISINOPRIL 10 MG TAB PO SCH ×2 (07:52→20:34)
[2017-11-14] MEDS: METOPROLOL TARTRATE 50 MG TAB PO SCH ×2 (07:53→20:34)
[2017-11-14] MEDS: SPIRONOLACTONE 25 MG TAB PO SCH (07:53)
[2017-11-14] MEDS ORDERED: CEFEPIME 2 GM in SODIUM CHLORIDE 0.9% 50 ML IVPB SCH (09:00)
--- NOTE | 2017-11-14 11:28 | CDI ---
Last Revision, October 2017 Documentation Clarification Form Date: 11/14/2017 11:07:00 AM From: Aracelisrafa Joseph RN Admit Date: 11/12/2017 4:04:00 PM Patient Name: Jacques Burk Visit Number: [id number] ATTENTION: The Clinical Documentation Specialists (CDI) and [facility] Coding Staff appreciate your assistance in clarifying documentation. Please respond to the clarification below the line at the bottom and electronically sign. The CDI & [facility] Coding staff will review the response and follow-up if needed. Please note: Queries are made part of the Legal Health Record. If you have any questions, please contact the author of this message via ITS. Dr. Joanne Jeong and Blanca Giordano.N.P., History/Risk Factors:. bypass/ cabg, CAD, HTN Clinical Indicators: Vital Signs on admission: T 97.6, P 76, R 18, 157/69 , 96% RA BNP: ON ADMISSION 9640 Echocardiogram Results from 11/13: left ventricular systolic function is low- normal EF 50-55% Chest X Ray: findings likely represent CHF with right pleural effusion Treatment: Lasix 20mg IV Q 6hr Cardiology consult In your professional opinion, can you please clarify the type of CHF if known? Acute Systolic Heart Failure Acute Diastolic Heart Failure X Acute Systolic & Diastolic Heart Failure Unable to Determine Other, please specify Please continue to document in your progress notes and discharge summary in order to capture severity of illness and risk of mortality. Include clinical findings that support your diagnosis. MTDD
--- NOTE | 2017-11-14 14:34 | PN ---
PROGRESS NOTE DATE OF SERVICE: November 14, 2017. ATTENDING PCP: Dr. Leon Franklin. He is a 77-year-old white male. He is . He is a FULL CODE. DATA: FULL CODE. Height 5 feet 7 inches, weight 75.4 kg. BSA 1.87 m2. BMI 26.0 kg m2. ALLERGY: Unknown. The patient admitted with the high leukocytic count and beyond the event of infection. However, subsequently I was called at 6:15 this morning with the presence of gram- positive cocci in the culture and the blood culture was indicating these gram-positive cocci in clusters. Also the Gram stain was gram-positive cocci in groups and the urinalysis preliminary was no evidence of gross in the urine. The patient was at the time of admission on Zosyn, vancomycin and cefepime. Subsequently, Dr. Joseph did see the patient with the consultation and at that time, his impression at the time that the patient has evidence of thrombocytosis, anemia and splenomegaly and represented hematological malignancy and at that time, we consulted already yesterday Dr. Miller for evaluation and treatment and patient did see Dr. Miller apparently or his PA, Annmarie and they plan for a bone marrow biopsy tomorrow. He has also anemia and a thrombocytosis and his liver enzyme within normal limit. On reviewing of the laboratories, he has white count is down from the admission down to 27.7 white count, hemoglobin is 8.1 and hematocrit is 28.9, the red count also 3.71. His platelet count was 1020 and today went down to 900,020, still significantly elevated and with the underlying thrombocytosis and marked peripheral smear abnormality with the polychromasia, hypochromasia, poikilocytosis and erythrocytosis and macrocytosis as well as target cell and fragmented RBCs. He has also chemistry profile and that was indicating that his sodium 136 and potassium 4.2, chloride 100, he has a BUN of 18, creatinine 1.09 with estimated glomerular filtration rate more than 60. His glucose is 93 and calcium is 9. He has definitely anemia as well and mild elevation in previous yesterday testing. Mild elevation of the iron. Subsequently as the patient seen today, evaluated, his vital signs: Temperature 98.5 and pulse 60 and respiratory rate 16, his blood pressure 127/72 with a mean 90 and his saturation 97. He had also echocardiogram done and was indicating that he had ejection fraction 50-55%. He had left ventricular mildly enlarged and he had flattened right ventricular septal wall is flattened in the diastole and systole and with the right ventricular volume pressure was overload. He had moderate severe pulmonary hypertension and he had with the Doppler 68 mmHg and he has a pulmonary regurgitation and with the conclusion of: 1. He had a low normal systolic function. 2. He had underlying mild right ventricular enlargement. 3. He has right ventricular wall flattened in the diastole and systole with consistent right ventricular volume overload. 4. Mild aortic regurgitation. 5. Mild mitral regurgitation. 6. Moderate tricuspid regurgitation. 7. Severe pulmonary hypertension. 8. He has also the right ventricular pressure is 68. He had pulmonary regurgitation. He had a small pleural effusion. He has also a CT scan of the chest, abdomen and pelvis and that was indicator of underlying splenomegaly and he was admitted with congestive heart failure. When they did the CT scan of the chest in and of the lung they said a moderate-sized lung right pleural effusion, small moderate left pleural effusion and there is compressive atelectasis and calcified pleural plaque bilaterally in the diaphragm, which redemonstrated and they mentioned that there is a calcified 3 mm subpleural nodule in the right middle lobe and radiologist was questionable about focal loculated volume of fluid anteriorly and medial area. On the CT scan he has abnormal spleen and liver, diffusely low-dense suggestive of fatty infiltration. The gallbladder not visualized. There is a presence of ascites. Currently on the exam, [id number], the patient is conscious, alert, oriented. He is very pleasant and he is eating normally, but less in appetite. His HEENT, the head was normocephalic, atraumatic. The lung is much improved with the diuresis as well as his legs improved with diuresis. His chest is improving gradually. The heart was regular sinus rhythm and his EKG on admission was indicating sinus bradycardia and some PVCs and we will be obtaining another EKG as occasional PVCs frequent. The abdomen, he has fullness in the left upper quadrant associated with the hepatomegaly and lower esophageal area and some discomfort in the right upper quadrant from the liver. The bowel movement is loose bowel. At this time he deferred that to the dye, the oral contrast that he had yesterday and if still continues by tomorrow, we will be obtaining for further testing on the stools. Extremities much improvement. ASSESSMENT: Currently is hematologic malignancy and splenomegaly and anemia and infection with the positive cocci infection in clusters with the underlying probably questionable sepsis. We will be waiting for the Hematology Oncology for evaluation and treatment as well and a bone marrow biopsy. We did not have any so far dictation from Dr. Miller, however, Ro Cole is the nurse practitioner and has seen the patient for Dr. Miller and the oncology group and with the impression that she has that the patient has thrombocytosis, anemia, leukocytosis, and with very abnormal lab no clear answer and referred to Dr. Miller by Dr. Franklin as outpatient and we scheduled for bone marrow tomorrow and I did review the procedure with the patient. We will see what the oncology recommendation and diagnosis. MMODL / IJN: [id number] /
--- NOTE | 2017-11-14 15:18 | P.PN ---
Subjective Progress Note Date: 11/14/17 This is a pleasant 77-year-old gentleman who follows regularly with Dr. Kevin Pelayo in the office. He has a known history of coronary artery disease with prior bypass surgery, history of hypertension, hyperlipidemia, his bypass surgery was done in 2007 at which time he underwent CHARLES to the LAD, vein graft to the diagonal and obtuse marginal branch of the circumflex. Patient has peripheral vascular disease and haso had vascular procedures performed by Dr. Mcfadden. Patient states that he underwent an EGD and colonoscopy by Dr. Kwan approximately 2 months ago at [facility], he was then referred to [facility] where he states he is having testing done, unsure exactly what it is for. Dates that since April of last year he has noticed weight loss and muscle wasting. He presents to the hospital on this occasion with symptoms of shortness of breath, positive PND and orthopnea, exertional dyspnea and peripheral edema. EKG on arrival here shows a sinus bradycardia with ST-T wave changes noted in the inferior anterior and lateral leads. All of these changes are new as compared with prior EKG. Chest x-ray, findings represent congestive heart failure with right pleural effusion and associated atelectasis. Chest and abdominal CT was performed, results are pending. Echocardiogram with Doppler study was performed which revealed an ejection fraction of 50-55%. Moderate to severe pulmonary hypertension. Blood pressure 146/60 with a heart rate in the 60s, 99% on 2 L of oxygen. Laboratory data was reviewed, white blood cell count on admission 33,000, 30,000 this morning. Hemoglobin 8.5, platelet count 1020, abnormal neutrophils, monocytes, myelocytes. This all appears to be new as of Dec of this year. Sodium 135, potassium 4.6, BUN 21, creatinine 1.0. Magnesium 1.7, bilirubin is elevated as well as GGT, alk phos, lactate dehydrogenase, BNP level 9640, troponins 0.019, 0.022, 0.022. At the time of my examination this morning, patient is comfortable, he states that his diuresis significant amount, swelling is improving. 11/14/2017 Seen and examined this morning, he was seen in consultation by hematology and they plan to do a bone marrow aspiration tomorrow. Overall he states he is feeling better, his edema is less today. His weight is also down 5 kg today. BUN 18, creatinine 1.0, potassium 4.2. Objective - Vital Signs Vital signs: Vital Signs Temp 98.5 F 11/14/17 11:01 Pulse 60 11/14/17 11:59 Resp 16 11/14/17 11:59 BP 127/72 11/14/17 11:01 Pulse Ox 97 11/14/17 11:01 Intake & Output 11/13/17 11/14/17 11/14/17 18:59 06:59 18:59 Intake Total 1090 400 820 Output Total 500 450 Balance 590 -50 820 Weight 75.4 kg Intake: IV 40 0.9 40 Intake, IV Titration 350 50 300 Amount Cefepime 2 gm In Sodium 50 Chloride 0.9% 50 ml @ 100 mls/hr IVPB Q8HR [facility] Rx# :[id number] Piperacillin-Tazobactam 3 50 50 50 .375 gm In Dextrose/Water 1 50ml.bag @ 12.5 mls/hr IVPB Q8H [facility] Rx#: [id number] Vancomycin 1,250 mg In 250 Sodium Chloride 0.9% 250 ml @ 125 mls/hr IVPB ONCE ONE Rx#:[id number] Vancomycin 1,500 mg In 250 Sodium Chloride 0.9% 250 ml @ 125 mls/hr IVPB Q12H [facility] Rx#:[id number] Oral 740 350 480 Output: Urine 500 450 Other: Voiding Method Toilet Toilet Urinal Urinal # Voids 1 200 3 # Bowel Movements 2 0 - Exam PHYSICAL EXAMINATION: HEENT: Head is atraumatic, normocephalic. Pupils equal, round. Neck is supple. There is elevated jugular venous pressure. Bilateral carotid bruits are audible HEART EXAMINATION: S1 and S2 systolic murmur is heard. CHEST EXAMINATION: Lungs are clear with diminished air entry to bilateral bases. ABDOMEN: Soft, nontender. Bowel sounds are heard. No organomegaly noted. EXTREMITIES: 2+ peripheral pulses with trace evidence of peripheral edema and no calf tenderness noted. NEUROLOGIC patient is awake, alert and oriented -3. - Labs CBC & Chem 7: 11/14/17 05:37 11/14/17 05:37 Labs: Abnormal Lab Results - Last 24 Hours (Table) 11/13/17 11/14/17 11/14/17 Range/Units 23:30 05:37 05:37 WBC 27.7 H* (3.8-10.6) k/uL RBC 3.71 L (4.30-5.90) m/uL Hgb 8.1 L (13.0-17.5) gm/dL Hct 28.9 L (39.0-53.0) % MCV 77.8 L (80.0-100.0) fL MCH 21.9 L (25.0-35.0) pg MCHC 28.1 L (31.0-37.0) g/dL RDW 24.9 H (11.5-15.5) % Plt Count 920 H* (150-450) k/uL Neutrophils # (Manual) 23.50 H (1.3-7.7) k/uL Monocytes # (Manual) 1.11 H (0-1.0) k/uL Metamyelocytes # (Man) 0.55 H (0) k/uL Myelocytes # (Manual) 0.28 H (0) k/uL Nucleated RBCs 3 H (0-0) /100 WBC Sodium 136 L (137-145) mmol/L Urine Protein 1+ H (Negative) Urine Mucus Rare H (None) /hpf Microbiology - Last 24 Hours (Table) 11/12/17 14:40 Blood Culture Gram Stain - Preliminary Blood 11/13/17 23:30 Urine Culture - Preliminary Urine,Voided 11/12/17 14:40 Blood Culture - Final Blood Assessment and Plan Plan: Assessment and plan #1 congestive heart failure, echocardiogram with Doppler study was performed revealed an ejection fraction of 50-55%. Moderate to severe pulmonary hypertension. #2 known history of coronary artery disease with prior bypass surgery in 2007 at which time patient underwent a CHARLES to the LAD, vein graft to the diagonal and obtuse marginal. #3 hypertension #4 hyperlipidemia #5 peripheral vascular disease with prior vascular procedures. #6 abnormality in weight blood cell count, thrombocytosis, anemia, leukocytosis #7 significant EKG changes. Troponins negative 3. Plan Cardiology's perspective, we'll decrease IV Lasix to 20 mg twice a day, repeat EKG. Patient is scheduled tomorrow to undergo bone marrow aspiration. Further recommendations will be based on these findings and patient's clinical course. DNP note has been reviewed, I agree with a documented findings and plan of care. Patient was seen and examined.
--- NOTE | 2017-11-14 16:28 | PN ---
PROGRESS NOTE DATE OF SERVICE: 11/14/2017 REASON FOR FOLLOWUP: 1. Leukocytosis. 2. Bacteremia. INTERVAL HISTORY: The patient's blood cultures were called in this morning with Gram-positive cocci; hence vancomycin was restarted. The patient currently is complaining of shortness of breath with minimal exertion; did not have a significant cough or sputum production. Some vague left upper abdominal pain. No nausea. No vomiting. No diarrhea. PHYSICAL EXAMINATION: Blood pressure is 127/72 with a pulse of 60, temperature 98.5. He is 97% on 2 L nasal cannula. General description is an elderly male up in the room in no distress. RESPIRATORY SYSTEM: Unlabored breathing with decreased breath sounds in the bases. HEART: S1, S2. Regular rate and rhythm. ABDOMEN: Soft. No tenderness. LABS: Hemoglobin 8.1, white count 27.7 with a BUN of 18, creatinine 1.09. Blood cultures with Gram-positive cocci in clusters as well as in chains. DIAGNOSTIC IMPRESSION AND PLAN: Patient admitted to hospital with increasing shortness of breath in a patient who did have evidence of significant leukocytosis, thrombocytosis as well as anemia and splenomegaly with concern about possible hematological malignancy. Clinical suspicion low for pneumonia, now with a positive blood culture with a question of possible skin contamination or a true pathogen. Will wait for the final ID of this pathogen. We will keep the patient on Zosyn and vancomycin while the culture is finalized. Schedule for possible bone marrow biopsy tomorrow. Continue with supportive care. MMODL / IJN: [id number] /
[2017-11-14] MEDS ORDERED: Magnesium Replacement Protocol 1 EACH MISC MISCELLANE PRN (17:51)
[2017-11-14] MEDS: MAGNESIUM SULFATE-D5W PMX 1 GM in DEXTROSE/WATER 1 100ML.BAG IVPB SCH ×3 (18:13→22:12)
[2017-11-14] MEDS: VANCOMYCIN 1,250 MG in SODIUM CHLORIDE 0.9% 250 ML IVPB SCH (18:58)
[2017-11-14] MEDS: amLODIPine 5 MG TAB PO SCH (20:33)
[2017-11-14] MEDS: DOXAZOSIN 4 MG TAB PO SCH (20:34)
[2017-11-14] MEDS: CLOPIDOGREL 75 MG TAB PO SCH (20:34)
[2017-11-14] MEDS: ATORVASTATIN 40 MG TAB PO SCH (20:34)
[2017-11-14] MEDS: HYDROcodone/APAP 5-325MG 1 EACH TAB PO PRN (20:47)
[2017-11-15] MEDS: PIPERACILLIN-TAZOBACTAM 3.375 GM in DEXTROSE/WATER 1 50ML.BAG IVPB SCH ×3 (01:53→18:06)
[2017-11-15 06:25] LABS: Anion Gap 10 mmol/L; Blood Urea Nitrogen 19 mg/dL (9-20); Carbon Dioxide 26 mmol/L (22-30); Chloride 99 mmol/L (98-107); Glucose 97 mg/dL (74-99); Magnesium 2.3 mg/dL (1.6-2.3); Sodium 135 mmol/L (137-145)
[2017-11-15 06:29] LABS: Anisocytosis Moderate; HCT 29.8 % (39.0-53.0); HGB 8.2 gm/dL (13.0-17.5); Hypochromasia Marked; MCH 21.9 pg (25.0-35.0); MCHC 27.4 g/dL (31.0-37.0); MCV 80.1 fL (80.0-100.0); Mean Platelet Volume 7.7; Microcytosis Moderate; Poikilocytosis Marked; RBC 3.72 m/uL (4.30-5.90); RDW 23.6 % (11.5-15.5)
[2017-11-15 06:37] LABS: Platelet Count 1029 k/uL (150-450); WBC 34.9 k/uL (3.8-10.6)
[2017-11-15] MEDS: PANTOPRAZOLE 40 MG TABLET PO SCH ×2 (07:04→17:23)
[2017-11-15] MEDS ORDERED: VANCOMYCIN TROUGH DUE 1 EACH MISC MISCELLANE ONE (10:00)
[2017-11-15] MEDS: FUROSEMIDE 10 MG/ML 2 ML VIAL IV SCH ×2 (10:57→19:47)
[2017-11-15] MEDS ORDERED: PROPOFOL 10 MG/ML 20 ML VIAL IV ONE (12:22)
[2017-11-15] MEDS ORDERED: IV FLUID CONTINUATION 1,000 ML IV ONE (12:24)
--- NOTE | 2017-11-15 13:50 | PCN ---
PROCEDURE NOTE DATE OF PROCEDURE: 11/14/2017 TYPE OF PROCEDURE: Bone marrow aspiration, biopsy. INDICATIONS FOR PROCEDURE: Leukocytosis and thrombocytosis with anemia. Suspected myeloproliferative neoplasm. TYPE OF ANESTHESIA: Local with IV sedation. PROCEDURE NOTE: The procedure was explained in detail to the patient on the floor. Informed consent was explained on the floor. He was brought to the inpatient endoscopy suite and placed in the left lateral decubitus position. The area where both posterior iliac crests was cleaned and prepped with chlorhexidine and sterile draping. IV sedation was then initiated. Local anesthesia administered to the right posterior iliac crest with lidocaine. A Jamshidi needle was then inserted and bone marrow aspirate and biopsy obtained. The initial biopsy specimen was somewhat small due to which a second pass was made with a better sample obtained. On withdrawal of the needle, hemostasis was easily achieved. Blood was minimal and recovery from sedation was satisfactory. He appeared to have tolerated the procedure well without any obvious complications. MMODL / IJN: [id number] /
[2017-11-15] MEDS: FERROUS SULFATE 325 MG TAB PO SCH (14:06)
[2017-11-15] MEDS: SPIRONOLACTONE 25 MG TAB PO SCH (14:06)
[2017-11-15] MEDS: CLOPIDOGREL 75 MG TAB PO SCH (14:06)
[2017-11-15] MEDS: LISINOPRIL 10 MG TAB PO SCH ×2 (14:07→19:47)
[2017-11-15] MEDS: ASPIRIN 81 MG PO SCH (14:08)
[2017-11-15] MEDS: METOPROLOL TARTRATE 50 MG TAB PO SCH ×2 (14:08→19:47)
[2017-11-15] MEDS: VANCOMYCIN 1,250 MG in SODIUM CHLORIDE 0.9% 250 ML IVPB SCH (14:12)
[2017-11-15] MEDS: HYDROcodone/APAP 5-325MG 1 EACH TAB PO PRN (17:23)
--- NOTE | 2017-11-15 17:33 | P.PN ---
Subjective Progress Note Date: 11/15/17 The patient was seen, prior to bone marrow aspiration biopsy today. He feels weak and mildly short of breath but overall stable. No obvious bleeding noted. No fever or chills. Objective - Vital Signs Vital signs: Vital Signs Temp 96.9 F L 11/15/17 16:00 Pulse 65 11/15/17 16:00 Resp 16 11/15/17 16:00 BP 141/64 11/15/17 16:00 Pulse Ox 96 11/15/17 16:00 Intake & Output 11/14/17 11/15/17 11/15/17 18:59 06:59 18:59 Intake Total 1297 620 200 Output Total 300 Balance 1297 620 -100 Weight 79 kg Intake: IV 40 70 200 0.9 40 70 Intake, IV Titration 300 550 Amount Magnesium Sulfate-D5w Pmx 300 1 gm In Dextrose/Water 1 100ml.bag @ 100 mls/hr IVPB Q1H [facility] Rx#: [id number] Piperacillin-Tazobactam 3 50 .375 gm In Dextrose/Water 1 50ml.bag @ 12.5 mls/hr IVPB Q8H [facility] Rx#: [id number] Vancomycin 1,250 mg In 250 Sodium Chloride 0.9% 250 ml @ 125 mls/hr IVPB ONCE ONE Rx#:[id number] Vancomycin 1,250 mg In 250 Sodium Chloride 0.9% 250 ml @ 125 mls/hr IVPB Q16H [facility] Rx#:[id number] Oral 957 Output: Urine 300 Other: Voiding Method Toilet Urinal # Voids 3 # Bowel Movements 0 - Constitutional General appearance: Present: no acute distress - EENT Eyes: Present: EOMI, PERRLA ENT: Present: hearing grossly normal, normal oropharynx - Respiratory Respiratory: bilateral: diminished - Cardiovascular Rhythm: regular Heart sounds: normal: S1, S2 - Gastrointestinal General gastrointestinal: Present: splenomegaly - Neurologic Neurologic: Present: CNII-XII intact - Musculoskeletal Musculoskeletal: Present: generalized weakness, strength equal bilaterally - Psychiatric Psychiatric: Present: A&O x's 3, appropriate affect - Labs CBC & Chem 7: 11/15/17 05:47 11/15/17 05:47 Labs: Abnormal Lab Results - Last 24 Hours (Table) 11/15/17 11/15/17 Range/Units 05:47 05:47 WBC 34.9 H* (3.8-10.6) k/uL RBC 3.72 L (4.30-5.90) m/uL Hgb 8.2 L (13.0-17.5) gm/dL Hct 29.8 L (39.0-53.0) % MCH 21.9 L (25.0-35.0) pg MCHC 27.4 L (31.0-37.0) g/dL RDW 23.6 H (11.5-15.5) % Plt Count 1029 H* (150-450) k/uL Sodium 135 L (137-145) mmol/L Microbiology - Last 24 Hours (Table) 11/13/17 23:30 Urine Culture - Final Urine,Voided 11/14/17 08:58 Blood Culture - Preliminary Blood No Growth after 24 hours 11/12/17 14:40 Blood Culture Gram Stain - Preliminary Blood Blood Culture - Preliminary Coagulase Negative Staph Assessment and Plan (1) Leukocytosis Narrative/Plan: WBC is mildly elevated, with a similar differential. There is no evidence of infection so far. As noted, the patient also has severe thrombocytosis. 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 The patient is to have a bone marrow aspiration biopsy. The procedure was explained in detail to him again. The patient's counts are overall stable. Therefore was the procedure is completed, he can potentially be discharged home whenever felt to be stable by the admitting service and other consultants. In that situation will follow up in the office in about 1-2 weeks by which time results from the bone marrow would be expected. He is already on aspirin and Plavix. Current Visit: Yes Status: Acute Priority: High Code(s): D72.829 - ELEVATED WHITE BLOOD CELL COUNT, UNSPECIFIED SNOMED Code(s): 986848184 (2) Thrombocytosis Narrative/Plan: As above Current Visit: Yes Status: Acute Priority: High Code(s): D47.3 - ESSENTIAL (HEMORRHAGIC) THROMBOCYTHEMIA SNOMED Code(s): 7624895
[2017-11-15] MEDS: DOXAZOSIN 4 MG TAB PO SCH (19:47)
[2017-11-15] MEDS: ATORVASTATIN 40 MG TAB PO SCH (19:47)
[2017-11-15] MEDS: amLODIPine 5 MG TAB PO SCH (19:47)
--- NOTE | 2017-11-15 19:56 | PN ---
PROGRESS NOTE DATE OF SERVICE: November 15, 2017. PCP: Dr. Leon Franklin. He is a 77-year-old white male. He is a FULL CODE. DATA: Height 5 feet 7 inches, weight 79 kg. BSA 1.91 m2. BMI 27.3 kg/m2. Allergy is unknown. The patient seen today, evaluated and his vital signs stable and currently on time vital signs indicating temperature was 98 and on today, November 15, 2017, date of service, and subsequently was 96.9 orally. His pulse rate 65 beats per minute, respiratory rate 16 per minute and nonlabored and his blood pressure 141/64 with a mean of 89. His pulse ox 96%. Laboratories were indicating that yesterday his white count was 27.7, today is 34.9 with the increase in the leukocytosis and he has anemia with the stable hemoglobin 8.2 with the hematocrit is 29.8. Also, his platelet count was today 1029 and he had marked hypochromasia and marked poikilocytosis and moderate anisocytosis and with the underlying moderate macrocytosis. His chemistry showed that his sodium 135 and the potassium is 4, chloride 99, carbon dioxide 26, his anion gap is 10 and BUN of 19, creatinine 1.20 with the estimated glomerular filtration rate for non- yesterday was more than 60, today is 59 and could be associated with hydration. His lactic acid was normal on November 13 and his calcium was 9 and his magnesium 1.4 and with the supplementation, he is 2.3. He had also a urinalysis on November 13 and his urinalysis has only 1+ proteinuria and rare urine mucus and rare urine sperm and negative for leukocyte and negative for nitrite and negative for quick ketones as well with no evidence of urinary tract infection. His vancomycin level was stable at 19.4, and he is currently on Zosyn and vancomycin with the microbiology indicating that he had coagulase-negative Staph. We do not have the definitive culture and Dr. Joseph, infectious disease, did see, evaluated and he is waiting for the culture with consideration of possibility of skin contamination. The patient did not have chills or fever, but he is feeling tired and achy after he had the bone marrow biopsy. Dr. Miller took the patient for bone marrow biopsy, which was done, and he indicated in his note that the patient may be able to go home and to see him in 2 weeks. There is no for further clarification in his note except that underlying proliferative bone marrow disease. Further clarification on his diagnosis after the bone marrow was done and inclusion. Otherwise from the point of the bacteremia, we will be waiting until the I and D available and Dr. Joseph decides which way we are going for the treatment, especially for his coagulase-negative Staph. Today on the examination, his blood pressure is stable, 141/64, and the mean is 89 and pulse ox 96. His HEENT: The head was normocephalic, atraumatic. Pupils were equal, reactive. Oropharynx was negative. Neck was supple. The chest was clear and I could not feel any lump or lymph node in the neck or the axillary area. The chest was clear to auscultation and percussion. He had a scar midline from a 3-vessel bypass graft and he had ischemic cardiomyopathy with ejection fraction was 20-30 as well and he has been seen by Cardiology as well. His echocardiogram showed that he had overall left ventricular systolic function was low and the EF was 50-55. The patient has also mild concentric left ventricular hypertrophy and he had enlarged mildly in the right ventricle as well as a flattened the diastole and systoles consistent of the right ventricular volume or pressure overload. He had a mild aortic regurgitation and mild mitral regurg and moderate tricuspid regurg and moderate to severe pulmonary hypertension as well. He had a physiologic pulmonary regurgitation. On the CT of the abdomen and chest and pelvis which was done on the indicating congestive heart failure exacerbation, probably diastolic in nature, and he has at that time small to moderate size left pleural effusion and history of asbestos exposure and he has splenomegaly, was worsening with the underlying splenomegaly and also found that he had abdominal ascites. However, it is minimal, small amount. With this history, the patient currently was admitted because of the shortness of breath essentially and the congestive heart failure and he was seen by Dr. Jeong, cardiology, for consultation and evaluation, and his current impression that the patient has congestive heart failure and his echocardiogram 50-55 as mentioned; however, he had severe pulmonary hypertension and he has a known history of coronary artery disease with the bypass surgery in 2007 and he had underwent CHARLES to the LAD, vein graft to the diagonal and obtuse marginal. He has a history of hypertension and a history of peripheral vascular disease as well and he had of course abnormality of the blood count and platelets and at that time the consultation with Dr. Miller, hematology/oncology. The patient currently is on examination, his chest is cleared and his congestive heart failure resolved. His edema of the lower extremities resolved. He still has the splenomegaly and the abdomen is soft, positive bowel sounds and he had the bone marrow for the hematological malignancy if it is present or myeloproliferative disorder as well and he had anemia and splenomegaly. He had probably the liver steatosis as well by the CT scan. PLAN: We will be waiting tomorrow for I and D of the blood culture that showed the Staph, negative coagulase Staph, and the possible recommendation from the Infectious Disease and with the leukocytosis, are we going to also continue oral antibiotic until seen by Dr. Miller or will be without and tomorrow will be discussing further treatment if needed. However, we will be obtaining laboratory tomorrow morning. MMODL / FAIZAN: [id number] /
--- NOTE | 2017-11-15 22:17 | PN ---
PROGRESS NOTE DATE OF SERVICE: 11/15/2017 REASON FOR FOLLOWUP: 1. Leukocytosis. 2. Positive blood culture. INTERVAL HISTORY: The patient is afebrile. The patient is status post bone marrow biopsy today. The patient tolerated the procedure. Denies having any chest pain. Still complaining of shortness of breath with minimal exertion. No significant cough or sputum production. No abdominal pain and no diarrhea. PHYSICAL EXAMINATION: Blood pressure is 110/51 with a pulse of 62, temperature of 97.4. He is 94% on 2 L nasal cannula. General description is an elderly male up in the room in no distress. RESPIRATORY SYSTEM: Unlabored breathing. Decreased breath sounds in the bases. HEART: S1, S2. Regular rate and rhythm. ABDOMEN: Soft. No tenderness. LABS: Hemoglobin is 8.2 with a white count of 34.9. BUN of 19, creatinine 1.20. Blood cultures are finalized with a coagulase-negative staph. DIAGNOSTIC IMPRESSION AND PLAN: 1. 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 We will follow the results. Oncology is already following the patient. 2. Patient with a positive blood culture with a coagulase-negative staph, likely skin contamination, especially with no clinical disease to go along with it. We will discontinue the vancomycin. MMODL / IJN: [id number] /
[2017-11-16] MEDS: HYDROcodone/APAP 5-325MG 1 EACH TAB PO PRN ×2 (01:03→18:44)
[2017-11-16] MEDS: VANCOMYCIN 1,250 MG in SODIUM CHLORIDE 0.9% 250 ML IVPB SCH (03:37)
[2017-11-16] MEDS: PIPERACILLIN-TAZOBACTAM 3.375 GM in DEXTROSE/WATER 1 50ML.BAG IVPB SCH ×3 (06:04→18:38)
[2017-11-16] MEDS: PANTOPRAZOLE 40 MG TABLET PO SCH ×2 (06:25→18:36)
[2017-11-16 06:59] LABS: Anisocytosis Marked; HGB 7.4 gm/dL (13.0-17.5); Hypochromasia Marked; MCH 21.8 pg (25.0-35.0); MCHC 27.6 g/dL (31.0-37.0); Mean Platelet Volume 8.4; Microcytosis Moderate; Poikilocytosis Moderate; RBC 3.42 m/uL (4.30-5.90)
[2017-11-16 07:04] LABS: Platelet Count 850 k/uL (150-450); RDW 25.1 % (11.5-15.5)
[2017-11-16 07:13] LABS: Anion Gap 9 mmol/L; Blood Urea Nitrogen 21 mg/dL (9-20); Calcium 8.7 mg/dL (8.4-10.2); Carbon Dioxide 25 mmol/L (22-30); Chloride 102 mmol/L (98-107); Glucose 89 mg/dL (74-99); Potassium 4.3 mmol/L (3.5-5.1); Sodium 136 mmol/L (137-145)
[2017-11-16 08:42] LABS: Band Neutrophils % 5 %; Eosinophils # (M) 0.59 k/uL (0-0.7); Lymphocytes # (M) 0.89 k/uL (1.0-4.8); Metamyelocytes % 1 %; Monocytes # (M) 1.49 k/uL (0-1.0); Myelocytes # (M) 0.59 k/uL (0); Myelocytes % 2 %; Neutrophils % (M) 84 %; Nucleated Red Blood Cells 2 /100 WBC (0-0); Total Cells Counted 200; WBC 29.7 k/uL (3.8-10.6)
[2017-11-16 08:43] LABS: Large Platelets Present; Ovalocytes Present; RBC Fragments Present; Toxic Granulation Present; Toxic Vacuolation Present
[2017-11-16] MEDS: SPIRONOLACTONE 25 MG TAB PO SCH (08:55)
[2017-11-16] MEDS: LISINOPRIL 10 MG TAB PO SCH ×2 (08:55→20:11)
[2017-11-16] MEDS: METOPROLOL TARTRATE 50 MG TAB PO SCH ×2 (08:55→20:11)
[2017-11-16] MEDS: ASPIRIN 81 MG PO SCH (08:55)
[2017-11-16] MEDS: FUROSEMIDE 10 MG/ML 2 ML VIAL IV SCH (08:55)
[2017-11-16] MEDS: FERROUS SULFATE 325 MG TAB PO SCH (08:55)
--- NOTE | 2017-11-16 14:33 | PN ---
PROGRESS NOTE DATE OF SERVICE: 11/16/2017 He is a 77-year-old white male. NEW DATA: He is a FULL CODE. His height 5 feet 7 inches. Weight 79 kg. BSA 1.91 meter square. BMI 27.3 kg/meter square. ALLERGIES: No known allergy. The patient has history of underlying hematologic malignancy with high leukocytes and seen by Dr. Miller who did a bone marrow biopsy. The patient admitted initially with shortness of breath with orthopnea and paroxysmal nocturnal dyspnea. He has been also seen by Cardiology. The current laboratory, his WBC 29.7 with hemoglobin 7.4 and hematocrit 27, and his platelet count 850. He had significant abnormality of the peripheral smear. His sodium 136, potassium 4.3, chloride 102, carbon dioxide is 25. His anion gap is 9. BUN of 21, creatinine 1.26 with estimated glomerular filtration rate is 55. Blood sugar 89, and calcium 8.7. His blood culture initially done in the ER and that was negative and the final urine culture also no growth and the final blood culture is indicating that he has a blood culture showed to be best Staphylococcus intermedius and patient sensitive to all antibiotic including amoxicillin, ampicillin, cefazolin, ceftriaxone, chloramphenicol, clindamycin, daptomycin, erythromycin. He is resistant to erythromycin. The rest is okay and it appeared to be with the question is underlying contamination or not and that we will know from Dr. Joseph, but at this time patient is on antibiotic and he is on vancomycin and I think the Zosyn has been discontinued. The patient on anticoagulation and the patient with history of hypertension and shortness of breath and with the current he had a chest x-ray on admission with the finding represents congestive heart failure with right pleural effusion and associated with atelectasis versus edema. On today's examination, on he has the laboratory indicating white count was down and he has underlying mild decrease in the renal function and appeared to be associated with intake. He had a bone marrow biopsy and yesterday seen by Dr. Joseph, Infectious Disease, and he said that he had white count elevation and anemia hematologic malignancy and with the evidence of splenomegaly. Dr. Armando Miller, the Hematology Oncology, he did also see him and impression is that the patient has elevated white count with no evidence of infection and thrombocytosis with the underlying probably hematologic malignancy. He eluded that he will see him in 1 to 2 weeks and patient can be discharged. However, patient today is short of breath with 3 or 4 steps to the bathroom and he needed oxygen with desaturation and we will be checking today his chest x-ray and BNP as well. We will continue his diuresis as well and he is currently on clopidogrel and he is furosemide 20 mg IV push q.12 hour and we will be increasing this dose if still the shortness of breath is present. His echocardiogram, which was done on this admission, indicating that he had ejection fraction 50% to 55%, however, probably he has diastolic failure with echo stated mild concentric left ventricular hypertrophy and ejection fraction, EF, 50% to 55%. He had right ventricular septal wall flattened in the diastole and systole consistent with right ventricular volume and pressure overload. He had mild aortic regurgitation and mitral regurgitation and moderate tricuspid regurgitation. He had severe pulmonary hypertension. On his vital signs today indicating that his temperature 96.4, pulse 64, blood pressure 140/64, pulse ox was 94 on 2 L. The patient will be needing checking ambulation without oxygen and to prepare him for home oxygen and need kit planner to work on the home oxygen before discharge. On exam, the patient's HEENT was negative. Neck was supple. Chest was aerated with decreased air entry on the bases and for that purpose, we will be obtaining the underlying chest x-ray as well. Heart was regular sinus rhythm. The abdomen was soft. Positive bowel sounds. Extremities no edema at this time, however, he is complaining of shortness of breath. ASSESSMENT: 1. Short of breath and rule out recurrence of congestive heart failure. 2. Underlying hematological malignancy with elevated white count and status post bone marrow biopsy. 3. Today he has underlying hypoxemia and we will be ambulating and checking the oxygen after ambulation for home oxygen. Subsequently hopefully discharge home within 24 to 48 hour period. MMODL / IJN: [id number] /
--- NOTE | 2017-11-16 14:48 | XR ---
EXAMINATION TYPE: XR chest 2V DATE OF EXAM: 11/16/2017 COMPARISON: November 12, 2017 HISTORY: Shortness of breath with concern for congestive heart failure TECHNIQUE: Frontal and lateral views of the chest are obtained. FINDINGS: There is a small to moderate right side pleural effusion which has increased since the pre vious study. There could be a small left-sided pleural effusion which has not increased. The cardiac silhouette is moderately enlarged and stable. There is cephalization of the pulmonary vessels which i s felt to be due to moderate CHF. No pneumothorax is identified. There is been a sternotomy. Calcific ations are identified in the aortic arch. IMPRESSION: Right-sided pleural effusion has increased since the previous study. Underlying airspace disease is not excluded.
[2017-11-16] MEDS ORDERED: FUROSEMIDE 10 MG/ML 4 ML VIAL IV STA ×2 (15:04→19:37)
--- NOTE | 2017-11-16 15:21 | P.PN ---
Subjective Progress Note Date: 11/16/17 The pleasant 77-year-old gentleman who follows regularly with Dr. Guy Pelayo in the office. Has a known history of coronary artery disease with prior bypass surgery, hypertension, hyperlipidemia, peripheral vascular disease. Presented hospital this on this occasion with symptoms of shortness of breath, PND and orthopnea as well as exertional dyspnea and peripheral edema. Patient had been on IV Lasix 20 mg every 12 and switch to by mouth this morning. He did undergo a bone marrow biopsy yesterday. On examination today, patient is more short of breath. Objective - Vital Signs Vital signs: Vital Signs Temp 97.4 F L 11/16/17 12:00 Pulse 62 11/16/17 12:00 Resp 16 11/16/17 12:00 BP 134/66 11/16/17 12:00 Pulse Ox 92 L 11/16/17 12:00 Intake & Output 11/15/17 11/16/17 11/16/17 18:59 06:59 18:59 Intake Total 580 100 120 Output Total 300 300 Balance 280 -200 120 Weight 79 kg Intake: IV 200 Oral 380 100 120 Output: Urine 300 300 Other: # Voids 1 - Exam PHYSICAL EXAMINATION: HEENT: Head is atraumatic, normocephalic. Pupils equal, round. Neck is supple. There is no elevated jugular venous pressure. Bilateral carotid bruits HEART EXAMINATION: Heart sounds regular, S1 and S2 and a systolic murmur. CHEST EXAMINATION: Lungs diminished air entry bilaterally. No chest wall tenderness is noted on palpation or with deep breathing. ABDOMEN: Soft, nontender. Bowel sounds are heard. No organomegaly noted. EXTREMITIES: 2+ peripheral pulses with evidence of mild peripheral edema and no calf tenderness noted. NEUROLOGIC patient is awake, alert and oriented x3. . - Labs CBC & Chem 7: 11/16/17 06:09 11/16/17 06:09 Labs: Abnormal Lab Results - Last 24 Hours (Table) 11/16/17 11/16/17 Range/Units 06:09 06:09 WBC 29.7 H* (3.8-10.6) k/uL RBC 3.42 L (4.30-5.90) m/uL Hgb 7.4 L (13.0-17.5) gm/dL Hct 27.0 L (39.0-53.0) % MCV 79.0 L (80.0-100.0) fL MCH 21.8 L (25.0-35.0) pg MCHC 27.6 L (31.0-37.0) g/dL RDW 25.1 H (11.5-15.5) % Plt Count 850 H* (150-450) k/uL Neutrophils # (Manual) 26.40 H (1.3-7.7) k/uL Lymphocytes # (Manual) 0.89 L (1.0-4.8) k/uL Monocytes # (Manual) 1.49 H (0-1.0) k/uL Metamyelocytes # (Man) 0.30 H (0) k/uL Myelocytes # (Manual) 0.59 H (0) k/uL Nucleated RBCs 2 H (0-0) /100 WBC Sodium 136 L (137-145) mmol/L BUN 21 H (9-20) mg/dL Creatinine 1.26 H (0.66-1.25) mg/dL Microbiology - Last 24 Hours (Table) 11/14/17 08:58 Blood Culture - Preliminary Blood No Growth after 48 hours 11/12/17 14:40 Blood Culture Gram Stain - Final Blood Blood Culture - Final Staphylococcus intermedius 11/13/17 23:30 Urine Culture - Final Urine,Voided Assessment and Plan Assessment: #1 diastolic congestive heart failure, echocardiogram showed an ejection fraction of 50-55% with moderate to severe pulmonary hypertension with worsening shortness of breath today #2 known history of CAD with prior bypass surgery #3 hypotension #4 hyperlipidemia #5. PVD with prior vascular procedures #6 significant EKG changes, troponins negative 3 Plan: From cardiology's perspective, we will repeat EKG in the morning. We'll give the patient a dose of Lasix IV push 40 mg 1 now. The patient may benefit from a pulmonary consult. We will continue to follow the patient provide further recommendations accordingly. [employer] DES[employer]ER note has been reviewed, I agree with a documented findings and plan of care. Patient was seen and examined.
[2017-11-16] MEDS: FUROSEMIDE 40 MG TAB PO SCH (16:01)
[2017-11-16] MEDS ORDERED: IPRATROPIUM-ALBUTEROL 3 ML NEB INHALATION STA (19:36)
[2017-11-16] MEDS: amLODIPine 5 MG TAB PO SCH (20:11)
[2017-11-16] MEDS: DOXAZOSIN 4 MG TAB PO SCH (20:11)
[2017-11-16] MEDS: CLOPIDOGREL 75 MG TAB PO SCH (20:11)
[2017-11-16] MEDS: ATORVASTATIN 40 MG TAB PO SCH (20:11)
[2017-11-17] MEDS: PIPERACILLIN-TAZOBACTAM 3.375 GM in DEXTROSE/WATER 1 50ML.BAG IVPB SCH ×2 (03:15→12:58)
[2017-11-17 06:36] LABS: Calcium 8.6 mg/dL (8.4-10.2); Potassium 4.1 mmol/L (3.5-5.1)
[2017-11-17] MEDS: PANTOPRAZOLE 40 MG TABLET PO SCH ×2 (07:28→16:27)
[2017-11-17] MEDS: FUROSEMIDE 40 MG TAB PO SCH (08:19)
[2017-11-17] MEDS: ASPIRIN 81 MG PO SCH (08:19)
[2017-11-17] MEDS: FERROUS SULFATE 325 MG TAB PO SCH (08:19)
[2017-11-17] MEDS: SPIRONOLACTONE 25 MG TAB PO SCH (08:20)
[2017-11-17] MEDS: LISINOPRIL 10 MG TAB PO SCH (08:20)
[2017-11-17] MEDS: METOPROLOL TARTRATE 50 MG TAB PO SCH ×2 (08:20→20:54)
[2017-11-17] MEDS ORDERED: SODIUM CHLORIDE 0.9% 1,000 ML IV SCH (11:30)
--- NOTE | 2017-11-17 12:33 | P.NPCON ---
History of Present Illness - Reason for Consult Consult date: 11/17/17 acute renal failure - Chief Complaint acute kidney injury, - History of Present Illness this is a 77-year-old male seen in consultation because of acute kidney injury. He was admitted with the shortness of breath and was found to have possibly bilateral pneumonia and congestive heart failure. He was started and antibiotics. This included vancomycin because of blood cultures growing staphintermedius on 11/12/2017on the first dose was on11/14/2017. Additionally he had a CAT scan with dye on 11/13/2017. His creatinine was also 1 dated 11/14/2017, went up to 1.2 dated 11/15/2017 and then up to 1.8 as of this morning. He continues to have cough and no expectoration. No shortness of breath at rest. He is able to walk without any dizziness but feels weak and tired. No nausea vomiting but had diarrhea for a few days after the CAT scan dated 2017 None now. During this admission he was also noted to have high white count and high platelet count underwent a bone marrow biopsy and suspicion of myelodysplastic syndrome. Patient does have history of prostatism but is currently denying any complaints. He says his takes medication for this. Additionally patient is known with coronary artery bypass graft 2007 and cardiac catheterization later in 2013. Past Medical History Past Medical History: Coronary Artery Disease (CAD), Hyperlipidemia, Hypertension, Prostate Disorder Additional Past Medical History / Comment(s): PAD History of Any Multi-Drug Resistant Organisms: None Reported Past Surgical History: Coronary Bypass/CABG, Heart Catheterization, Hernia Repair Additional Past Surgical History / Comment(s): cardiac cath ON 10/04/2014, 5-4- 16 [employer], [employer] HERNIA, [employer] HERN[employer] Past Anesthesia/Blood Transfusion Reactions: No Reported Reaction Past Psychological History: No Psychological Hx Reported Additional Psychological History / Comment(s): PT LIVES AT HOME WITH HIS , IS INDEPENDANT,RETIRED FROM [employer]. NO HX, Smoking Status: Former smoker Past Alcohol Use History: Occasional Additional Past Alcohol Use History / Comment(s): STARTED SMOKING AT AGE 16 QUIT AT AGE 40 SMOKED 1 1/2 PPD Past Drug Use History: None Reported - Past Family History Brother(s) Family Medical History: Cancer Additional Family Medical History / Comment(s): 2 with lung and 1 with prostate Mother Family Medical History: Myocardial Infarction (OR) Father Additional Family Medical History / Comment(s): AT AGE 83 FROM "HARDENING OF THE ARTERIES" Medications and Allergies Home Medications Medication Instructions Recorded Confirmed Type Atorvastatin [Lipitor] 40 mg PO HS 09/27/14 11/12/17 History Metoprolol Tartrate [Lopressor] 50 mg PO BID 09/27/14 11/12/17 History Terazosin [Hytrin] 5 mg PO HS 09/27/14 11/12/17 History Enalapril [Vasotec] 5 mg PO DAILY #30 tablet 10/12/14 11/12/17 Rx Cilostazol [Pletal] 50 mg PO BID 01/01/17 11/12/17 History Clopidogrel [Plavix] 75 mg PO HS 01/01/17 11/12/17 History Aspirin EC [Ecotrin Low Dose] 81 mg PO DAILY 10/05/17 11/12/17 History Ferrous Sulfate [Feosol] 325 mg PO DAILY 10/05/17 11/12/17 History Furosemide [Lasix] 40 mg PO DAILY 10/05/17 11/12/17 History Pantoprazole [Protonix] 80 mg PO DAILY 11/12/17 11/12/17 History Spironolactone [Aldactone] 25 mg PO DAILY 11/12/17 11/12/17 History Allergies Allergy/AdvReac Type Severity Reaction Status Date / Time No Known Allergies Allergy Verified 11/12/17 14:32 Physical Exam Vitals: Vital Signs Temp Pulse Pulse Resp BP Pulse Ox 11/17/17 10:45 97.4 F L 72 18 123/68 96 11/17/17 03:33 97.0 F L 65 18 132/57 95 11/16/17 23:46 96.9 F L 80 18 118/60 95 11/16/17 20:46 63 11/16/17 20:31 63 95 11/16/17 20:00 97.0 F L 67 20 125/56 98 11/16/17 16:00 97.2 F L 64 16 146/62 94 L Intake and Output 11/16/17 11/17/17 11/17/17 22:59 06:59 14:59 Intake Total 200 50 120 Output Total 225 350 Balance 200 -175 -230 Intake: Intake, IV Titration 50 Amount Piperacillin-Tazobactam 3 50 .375 gm In Dextrose/Water 1 50ml.bag @ 12.5 mls/hr IVPB Q8H [facility] Rx#: [id number] Oral 200 120 Output: Urine 225 350 Other: # Voids 1 1 Weight 79.2 kg on examination is awake alert oriented comfortable HEENT exam no JVP neck is supple no facial asymmetry Lungs are clear to auscultation with occasional coarse bibasilar crackles. Good air entry bilaterally no dullness percussion Heart sounds are unremarkable for any murmur rub gallop Abdomen soft nontender no organomegaly ascites masses felt on the CAT scan does show mild ascites and splenomegaly. Extremities and was no edema Awake alert oriented comfortable no asterixis. Results - Lab Results Most recent lab results Calcium 8.6 mg/dL (8.4-10.2) 11/17/17 05:37 Magnesium 2.3 mg/dL (1.6-2.3) 11/15/17 05:47 11/16/17 06:09 11/17/17 05:37 Assessment and Plan Assessment: impression. 1. Acute kidney injury likely from dye toxicity additionally vancomycin may be playing some additional part. Creatinine has gone up from 1-1.8 2. History of prostatism but asymptomatic. 3. Admitted with shortness of breath and pneumonia and 1 positive blood cultures growing staph as mentioned about. 4. Congestive heart failure currently compensated. 5. History of ASHD, coronary artery bypass graft in 2007 and cardiac catheterization several 2013. 6. Myelodysplastic syndrome, status post bone marrow biopsy pending results. 7.Anemia hemoglobin 7.4, 8. Right pleural effusion by CAT scan. Commendations. 1. Check postvoid residual. 2. check orthostatics and call me. 3. Hold Lasix for 24 hours and reassess 4. Consider discontinuation of vancomycin using alternative non-nephrotoxic antibiotic. 5. Monitor labs urine output and blood pressure.
--- NOTE | 2017-11-17 13:28 | PN ---
PROGRESS NOTE DATE OF SERVICE: 11/17/17 FULL CODE The patient is seen today, evaluated and we evaluated his current, he had today on November 17, he was found to had Staphylococcus intermedius and questionable is it associated was contamination or not and his electrolytes today 136, potassium 4.1, chloride 101, carbon dioxide 26 and BUN of 26 and creatinine 1.8. His estimated glomerular filtration rate for non- 37. However, he started with normal renal function and now he is 1.8 with the indicating prerenal with the presence of elevation of the creatinine more than 0.3, and we will be consulting the Nephrology. Meanwhile with the current problem with the Staphylococcus intermedius and we will be looking for Dr. Joseph, his note and with the underlying coagulase negative staph, probably likely contamination with clinical disease. The vancomycin was discontinued. The patient also had laboratory as mentioned and the laboratory was indicating still the leukocytosis and the last one done on the and he had 29.7, improved from 34.9; however, there is no evidence of pneumonia and he had underlying bone marrow biopsy with a hematologic malignancy. Patient has been diuresed and with the underlying history of congestive heart failure. This time, we did yesterday a proBNP and that was indicating that his proBNP was extremely high 1100 with the underlying congestive heart failure is still present and his magnesium has been corrected, but his creatinine from started on 09 04. and gradually increased to 1.8 today and for that purpose we have checked several laboratories including the urine osmolality and urine sodium and meanwhile probability of dehydration was considered and we will be obtaining the treatment with the mild IV gradually and until we checked his echocardiogram as well as to see how his left ventricular function. With the micro Staphylococcus intermedius apparently it could be the skin contamination. His vital sign today indicating that temperature 97.4, pulse 72, respiratory rate 18, and blood pressure is 123/68, and his pulse ox 96% on 2 L. He was yesterday short of breath and we did a chest x-ray because of that, and the chest x-ray was indicating right-sided pleural effusion has increased since the previous study and underlying airspace disease could not be excluded. No pneumothorax and there is cephalization of the pulmonary vessel due to moderate congestive heart failure. We are on this today exam, patient is conscious, alert. He is still tired, fatigued. I spoke with Dr. Jeong and I cut down the Lasix to 20 mg and start IV fluid because of his renal function. Consultation with Nephrology and the patient will obtain also the echocardiogram to assess with the significant increase in the troponin as well as the right sided pleural effusion. He is on examination, conscious, alert, oriented. His lung is much improved, but decreased air entry on the right side. His EKG at the time of admission was regular sinus. On the examination as well, he had echocardiogram on November 13 and that was at that time indicating ejection fraction of 50-55. However, patient has definitive diastolic dysfunction as he said read by Dr. Kwan diastolic and systolic, consistent with right ventricular volume overload and he has a mild aortic regurgitation, mitral regurgitation, tricuspid regurgitation and severe pulmonary hypertension with right ventricular pressure 68 mmHg. On the examination, the abdomen is soft. Positive bowel sounds. Extremities, no edema. ASSESSMENT: 1. Leukocytosis with abnormal peripheral smear and suspicious of hematologic malignancy, status post bone marrow biopsy on Saturday. However, patient still short of breath and seen by Dr. Jeong and will be consulting Nephrology. 2. Acute renal failure, could be secondary to diuresis for the congestive heart failure, diastolic in nature, with the normal ejection fraction and history of sinus rhythm. The last chest x-ray on the was also indicating the congestive heart failure which is diastolic. We will be consulting the Dr. Cruz/Dr. Boyer/Dr. Maddox, nephrology for evaluation and treatment as well and we order some laboratories for the urine to help for continuation of the renal function care. MMODL / IJN: [id number] /
--- NOTE | 2017-11-17 15:07 | PN ---
PROGRESS NOTE Mr. Burk is a 77-year-old male who presented with symptoms of progressive dyspnea of unclear etiology with possible congestive heart failure and underwent an echocardiogram revealed preserved left ventricular size and systolic function, but his lab data revealed severe leukocytosis and thrombocytosis with severe anemia. He underwent bone marrow biopsy. He continued to be dyspneic and weak. There is worsening of his renal function. He continues to be on aspirin, Lipitor 40 mg daily, Plavix 75 mg daily, Lasix, metoprolol tartrate 50 mg twice a day. Spironolactone and Protonix. PHYSICAL EXAMINATION: Blood pressure 145/70 with a heart rate in the 70s. Lungs with few crackles at bases. HEART: Regular rate and rhythm, S1, S2 with systolic murmur. No diastolic murmur. ABDOMEN: Soft, nontender. Extremities trace to 1+ edema. LAB DATA: BUN and creatinine 26 and 1.8. IMPRESSION: 1. Symptoms of dyspnea and congestive heart failure. 2. History of coronary artery disease status post bypass grafting. 3. History of hypertension. 4. Abnormal lab data suggestive of myeloproliferative disease, workup in progress. RECOMMENDATION: From the cardiac standpoint, I agree with your plan of holding his diuretic at this time. Will undergo evaluation by the Nephrology service. We will follow his renal function tomorrow. We are awaiting the results of his bone marrow biopsy and depending on that, further recommendations will be made. MMODL / IJN: [id number] /
[2017-11-17 15:36] LABS: Anisocytosis Moderate; HCT 25.9 % (39.0-53.0); Hypochromasia Marked; MCH 22.2 pg (25.0-35.0); MCHC 27.2 g/dL (31.0-37.0); MCV 81.6 fL (80.0-100.0); Mean Platelet Volume 7.6; Microcytosis Moderate; Poikilocytosis Marked; RBC 3.17 m/uL (4.30-5.90); RDW 23.8 % (11.5-15.5)
[2017-11-17 15:40] LABS: Platelet Count 809 k/uL (150-450)
[2017-11-17 15:41] LABS: WBC 36.5 k/uL (3.8-10.6)
[2017-11-17] MEDS: SODIUM CHLORIDE 0.9% 1,000 ML IV SCH (18:55)
[2017-11-17 20:19] LABS: Potassium,Urine Random 40.4 mmol/L
[2017-11-17] MEDS: DOXAZOSIN 4 MG TAB PO SCH (20:53)
[2017-11-17] MEDS: ATORVASTATIN 40 MG TAB PO SCH (20:53)
[2017-11-17] MEDS: CLOPIDOGREL 75 MG TAB PO SCH (21:01)
[2017-11-17] MEDS: HYDROcodone/APAP 5-325MG 1 EACH TAB PO PRN (21:41)
[2017-11-18] MEDS ORDERED: MELATONIN 3 MG TABLET PO SCH (00:45)
[2017-11-18] MEDS ORDERED: ALPRAZolam 0.25 MG TAB PO PRN (01:18)
--- NOTE | 2017-11-18 05:58 | PN ---
PROGRESS NOTE DATE OF SERVICE: 11/17/2017 REASON FOR FOLLOWUP: 1. Leukocytosis. 2. Positive blood culture. INTERVAL HISTORY: The patient is afebrile, has been still complaining of shortness of breath with minimal exertion. No chest pain. No cough. No abdominal pain. No diarrhea. PHYSICAL EXAMINATION: On examination, blood pressure 125/55 with a pulse of 72, temperature 97.4. He is 96% on 3 L nasal cannula. General description is an elderly male up in the bed, up in no distress. RESPIRATORY SYSTEM: Unlabored breathing with decreased breath sounds at the bases. HEART: S1, S2. Regular rate and rhythm. ABDOMEN: Soft, no tenderness. LABS: Hemoglobin 10 with a white count of 36.5. BUN of 26, creatinine is 1.80. Blood cultures with Staphylococcus intermedius. Blood culture repeat has been negative. DIAGNOSTIC IMPRESSION AND PLAN: Patient with leukocytosis, more likely hematologic malignancy. Clinically doubt infectious etiology. Blood culture positive likely a contamination. Antibiotic has been discontinued. We will watch the patient closely off antibiotic therapy. Continue with supportive care. MMODL / IJN: [id number] / MTDD
[2017-11-18] MEDS: PANTOPRAZOLE 40 MG TABLET PO SCH ×2 (06:31→17:12)
[2017-11-18] MEDS: SODIUM CHLORIDE 0.9% 1,000 ML IV SCH ×2 (06:32→19:01)
[2017-11-18 06:49] LABS: Anisocytosis Marked; HCT 26.3 % (39.0-53.0); HGB 7.2 gm/dL (13.0-17.5); Hypochromasia Marked; MCH 22.3 pg (25.0-35.0); MCHC 27.3 g/dL (31.0-37.0); MCV 81.8 fL (80.0-100.0); Microcytosis Moderate; Poikilocytosis Moderate; RBC 3.21 m/uL (4.30-5.90)
[2017-11-18 06:52] LABS: Platelet Count 899 k/uL (150-450); RDW 25.7 % (11.5-15.5); WBC 32.2 k/uL (3.8-10.6)
[2017-11-18 07:31] LABS: Calcium 8.9 mg/dL (8.4-10.2); Potassium 4.4 mmol/L (3.5-5.1)
[2017-11-18] MEDS: METOPROLOL TARTRATE 50 MG TAB PO SCH ×2 (07:56→21:10)
[2017-11-18] MEDS: ASPIRIN 81 MG PO SCH (07:56)
[2017-11-18] MEDS: FERROUS SULFATE 325 MG TAB PO SCH (07:56)
[2017-11-18] MEDS: SPIRONOLACTONE 25 MG TAB PO SCH (07:56)
[2017-11-18] MEDS: HYDROcodone/APAP 5-325MG 1 EACH TAB PO PRN ×2 (08:02→21:10)
[2017-11-18 08:58] LABS: Band Neutrophils % 6 %; Eosinophils # (M) 0.32 k/uL (0-0.7); Lymphocytes # (M) 0.64 k/uL (1.0-4.8); Metamyelocytes # (M) 0.64 k/uL (0); Metamyelocytes % 2 %; Monocytes # (M) 0.64 k/uL (0-1.0); Myelocytes # (M) 0.97 k/uL (0); Myelocytes % 3 %; Neutrophils % (M) 86 %; Nucleated Red Blood Cells 0 /100 WBC (0-0); Ovalocytes Present; Polychromasia Present; Total Cells Counted 200
[2017-11-18 08:59] LABS: RBC Fragments Present
[2017-11-18] MEDS ORDERED: FUROSEMIDE 20 MG TAB PO SCH (09:00)
--- NOTE | 2017-11-18 14:50 | P.PN ---
Subjective Progress Note Date: 11/18/17 This is a pleasant 77-year-old gentleman who follows regularly with Dr. Kevin Pelayo in the office. He has a known history of coronary artery disease with prior bypass surgery, history of hypertension, hyperlipidemia, his bypass surgery was done in 2007 at which time he underwent CHARLES to the LAD, vein graft to the diagonal and obtuse marginal branch of the circumflex. Patient has peripheral vascular disease and haso had vascular procedures performed by Dr. Mcfadden. Patient states that he underwent an EGD and colonoscopy by Dr. Kwan approximately 2 months ago at [facility], he was then referred to [facility] where he states he is having testing done, unsure exactly what it is for. Dates that since April of last year he has noticed weight loss and muscle wasting. He presents to the hospital on this occasion with symptoms of shortness of breath, positive PND and orthopnea, exertional dyspnea and peripheral edema. EKG on arrival here shows a sinus bradycardia with ST-T wave changes noted in the inferior anterior and lateral leads. All of these changes are new as compared with prior EKG. Chest x-ray, findings represent congestive heart failure with right pleural effusion and associated atelectasis. Chest and abdominal CT was performed, results are pending. Echocardiogram with Doppler study was performed which revealed an ejection fraction of 50-55%. Moderate to severe pulmonary hypertension. Blood pressure 146/60 with a heart rate in the 60s, 99% on 2 L of oxygen. Laboratory data was reviewed, white blood cell count on admission 33,000, 30,000 this morning. Hemoglobin 8.5, platelet count 1020, abnormal neutrophils, monocytes, myelocytes. This all appears to be new as of Dec of this year. Sodium 135, potassium 4.6, BUN 21, creatinine 1.0. Magnesium 1.7, bilirubin is elevated as well as GGT, alk phos, lactate dehydrogenase, BNP level 9640, troponins 0.019, 0.022, 0.022. At the time of my examination this morning, patient is comfortable, he states that his diuresis significant amount, swelling is improving. 11/14/2017 Seen and examined this morning, he was seen in consultation by hematology and they plan to do a bone marrow aspiration tomorrow. Overall he states he is feeling better, his edema is less today. His weight is also down 5 kg today. BUN 18, creatinine 1.0, potassium 4.2. 11/18/2017 Patient seen and examined this morning feeling quite exhausted this morning, quite short of breath. BUN 33 today, creatinine 1.5, potassium 4.4. Test x- ray performed on the showed a right-sided pleural effusion which has increased from prior study. We'll repeat a chest x-ray again today. Blood pressure 144/60 with a heart rate in the 60s. Objective - Vital Signs Vital signs: Vital Signs Temp 97 F L 11/18/17 07:47 Pulse 68 11/18/17 11:37 Resp 16 11/18/17 12:00 BP 144/63 11/18/17 11:37 Pulse Ox 93 L 11/18/17 11:37 Intake & Output 11/17/17 11/18/17 11/18/17 18:59 06:59 18:59 Intake Total 360 600 340 Output Total 575 300 150 Balance -215 300 190 Weight 79.5 kg Intake: Intake, IV Titration 600 Amount Piperacillin-Tazobactam 3 50 .375 gm In Dextrose/Water 1 50ml.bag @ 12.5 mls/hr IVPB Q8H [facility] Rx#: [id number] Sodium Chloride 0.9% 1, 550 000 ml @ 50 mls/hr IV . Q20H [facility] Rx#:[id number] Oral 360 340 Output: Urine 575 300 150 Other: Voiding Method Toilet Urinal # Voids 1 1 1 # Bowel Movements 0 - Exam PHYSICAL EXAMINATION: HEENT: Head is atraumatic, normocephalic. Pupils equal, round. Neck is supple. There is elevated jugular venous pressure. Bilateral carotid bruits are audible HEART EXAMINATION: S1 and S2 systolic murmur is heard. CHEST EXAMINATION: Lungs are clear with diminished air entry to bilateral bases. ABDOMEN: Soft, nontender. Bowel sounds are heard. No organomegaly noted. EXTREMITIES: 2+ peripheral pulses with trace evidence of peripheral edema and no calf tenderness noted. NEUROLOGIC patient is awake, alert and oriented -3. - Labs CBC & Chem 7: 11/18/17 06:02 11/18/17 06:02 Labs: Abnormal Lab Results - Last 24 Hours (Table) 11/17/17 11/18/17 11/18/17 Range/Units 14:50 06:02 06:02 WBC 36.5 H* 32.2 H* (3.8-10.6) k/uL RBC 3.17 L 3.21 L (4.30-5.90) m/uL Hgb 7.0 L* 7.2 L (13.0-17.5) gm/dL Hct 25.9 L 26.3 L (39.0-53.0) % MCH 22.2 L 22.3 L (25.0-35.0) pg MCHC 27.2 L 27.3 L (31.0-37.0) g/dL RDW 23.8 H 25.7 H (11.5-15.5) % Plt Count 809 H* 899 H* (150-450) k/uL Neutrophils # (Manual) 29.60 H (1.3-7.7) k/uL Lymphocytes # (Manual) 0.64 L (1.0-4.8) k/uL Metamyelocytes # (Man) 0.64 H (0) k/uL Myelocytes # (Manual) 0.97 H (0) k/uL BUN 33 H (9-20) mg/dL Creatinine 1.75 H (0.66-1.25) mg/dL Glucose 101 H (74-99) mg/dL Microbiology - Last 24 Hours (Table) 11/14/17 08:58 Blood Culture - Preliminary Blood No Growth after 96 hours 11/12/17 14:40 Blood Culture Gram Stain - Final Blood Blood Culture - Final Staphylococcus intermedius Assessment and Plan Plan: Assessment and plan #1 congestive heart failure, echocardiogram with Doppler study was performed revealed an ejection fraction of 50-55%. Moderate to severe pulmonary hypertension. #2 known history of coronary artery disease with prior bypass surgery in 2007 at which time patient underwent a CHARLES to the LAD, vein graft to the diagonal and obtuse marginal. #3 hypertension #4 hyperlipidemia #5 peripheral vascular disease with prior vascular procedures. #6 abnormality in weight blood cell count, thrombocytosis, anemia, leukocytosis #7 significant EKG changes. Troponins negative 3. Plan Cardiology's perspective, we will continue the patient on his current medications. We will also request a repeat chest x-ray. Continue to monitor renal function.. DNP note has been reviewed, I agree with a documented findings and plan of care. Patient was seen and examined.
[2017-11-18] MEDS: ALPRAZolam 0.25 MG TAB PO PRN ×2 (15:03→21:09)
[2017-11-18 15:59] LABS: Anisocytosis Moderate; HCT 25.8 % (39.0-53.0); Hypochromasia Marked; MCH 22.1 pg (25.0-35.0); MCHC 27.1 g/dL (31.0-37.0); MCV 81.7 fL (80.0-100.0); Mean Platelet Volume 8.2; Microcytosis Moderate; Platelet Count 785 k/uL (150-450); Poikilocytosis Marked; RBC 3.16 m/uL (4.30-5.90); RDW 23.8 % (11.5-15.5)
[2017-11-18 16:00] LABS: WBC 34.9 k/uL (3.8-10.6)
--- NOTE | 2017-11-18 17:24 | XR ---
EXAMINATION TYPE: XR chest 1V DATE OF EXAM: 11/18/2017 COMPARISON: 11/16/2017 HISTORY: Follow-up heart failure TECHNIQUE: Single frontal view of the chest is obtained. FINDINGS: There is pulmonary edema. There is blunting of costophrenic angles. Heart is enlarged. The re are chest leads. There are sternal wires IMPRESSION: There is congestive heart failure and pulmonary edema that is worse than last exam.
--- NOTE | 2017-11-18 17:46 | P.CNPUL ---
History of Present Illness Consult date: 11/18/17 Reason for consult: dyspnea, cough, COPD, hypoxemia, pneumonia, pleural effusion , abnormal CXR/CT Chief complaint: Shortness of breath progressive for several months History of present illness: Mr. Burk is a 77-year-old male who was admitted into the hospital with progressive increasing shortness of breath, patient has a recent finding of the thrombocytosis as well as leukocytosis and anemia being evaluated for myelodysplastic disorder a V/Q ago patient had a bone marrow aspiration biopsy performed by hematology oncology. Patient described his symptoms to be short of breath at rest and gets worse or makes activity and exertion he cannot walk more than 10 step he is on 3 L oxygen with the saturation are 90-92%, a significant history of the coronary artery disease with history of CABG 10 years ago with history of cardiac cath and angiogram lately in the last several days his creatinine is progressively rising with decline in GFR and patient is slowly dripping into acute renal failure as well. He has a remote history of smoking quit more than 40 years ago, he denies any cough or sputum production denies any night sweats fever or chills patient has issues associated with orthopnea and PND as well with progressive increased lower extremity edema Patient sees Dr. Franklin for primary care activity and Dr. BOWIE for cardiovascular disease and issues he was operated on by see Chepe Feldman 10 years ago, patient recently had a EGD perform an [facility] Review of Systems All systems: negative Constitutional: Reports as per HPI, Reports anorexia, Reports chronic headaches , Reports fatigue, Reports malaise, Reports poor appetite, Reports weakness, Reports weight loss (Lost over 30 pounds in last several months) Ears, nose, mouth and throat: Reports as per HPI Cardiovascular: Reports as per HPI, Reports decreased exercise tolerance, Reports dyspnea on exertion, Reports palpitations, Reports shortness of breath Respiratory: Reports as per HPI, Reports cough Gastrointestinal: Reports as per HPI Genitourinary: Reports as per HPI Musculoskeletal: Reports as per HPI Integumentary: Reports as per HPI Neurological: Reports as per HPI Psychiatric: Reports as per HPI Endocrine: Reports as per HPI Past Medical History Past Medical History: Coronary Artery Disease (CAD), Hyperlipidemia, Hypertension, Prostate Disorder Additional Past Medical History / Comment(s): PAD History of Any Multi-Drug Resistant Organisms: None Reported Past Surgical History: Coronary Bypass/CABG, Heart Catheterization, Hernia Repair Additional Past Surgical History / Comment(s): cardiac cath ON 10/04/2014, 5-4- 16 [employer] S[employer], PEPE INGUIANL HERNIA, [employer] HERN[employer] Past Anesthesia/Blood Transfusion Reactions: No Reported Reaction Past Psychological History: No Psychological Hx Reported Additional Psychological History / Comment(s): PT LIVES AT HOME WITH HIS , IS INDEPENDANT,RETIRED FROM [employer]. NO HX, Smoking Status: Former smoker Past Alcohol Use History: Occasional Additional Past Alcohol Use History / Comment(s): STARTED SMOKING AT AGE 16 QUIT AT AGE 40 SMOKED 1 1/2 PPD Past Drug Use History: None Reported - Past Family History Brother(s) Family Medical History: Cancer Additional Family Medical History / Comment(s): 2 with lung and 1 with prostate Mother Family Medical History: Myocardial Infarction (CT) Father Additional Family Medical History / Comment(s): AT AGE 83 FROM "HARDENING OF THE ARTERIES" Medications and Allergies Home Medications Medication Instructions Recorded Confirmed Type Atorvastatin [Lipitor] 40 mg PO HS 09/27/14 11/12/17 History Metoprolol Tartrate [Lopressor] 50 mg PO BID 09/27/14 11/12/17 History Terazosin [Hytrin] 5 mg PO HS 09/27/14 11/12/17 History Enalapril [Vasotec] 5 mg PO DAILY #30 tablet 10/12/14 11/12/17 Rx Cilostazol [Pletal] 50 mg PO BID 01/01/17 11/12/17 History Clopidogrel [Plavix] 75 mg PO HS 01/01/17 11/12/17 History Aspirin EC [Ecotrin Low Dose] 81 mg PO DAILY 10/05/17 11/12/17 History Ferrous Sulfate [Feosol] 325 mg PO DAILY 10/05/17 11/12/17 History Furosemide [Lasix] 40 mg PO DAILY 10/05/17 11/12/17 History Pantoprazole [Protonix] 80 mg PO DAILY 11/12/17 11/12/17 History Spironolactone [Aldactone] 25 mg PO DAILY 11/12/17 11/12/17 History Allergies Allergy/AdvReac Type Severity Reaction Status Date / Time No Known Allergies Allergy Verified 11/12/17 14:32 Physical Exam Vitals: Vital Signs Temp Pulse Resp BP Pulse Ox 11/18/17 15:35 97.6 F 67 16 156/68 96 11/18/17 12:00 16 11/18/17 11:37 68 16 144/63 93 L 11/18/17 07:47 97 F L 78 16 123/61 96 11/18/17 04:00 97.4 F L 72 18 141/73 97 11/18/17 00:00 97 F L 66 18 118/54 97 11/17/17 20:00 97.4 F L 72 18 125/65 96 Intake and Output 11/18/17 11/18/17 11/18/17 06:59 14:59 22:59 Intake Total 550 340 500 Output Total 300 150 200 Balance 250 190 300 Intake: IV 500 Sodium Chloride 0.9% 1, 500 000 ml @ 50 mls/hr IV . Q20H [facility] Rx#:[id number] Intake, IV Titration 550 Amount Sodium Chloride 0.9% 1, 550 000 ml @ 50 mls/hr IV . Q20H [facility] Rx#:[id number] Oral 340 Output: Urine 300 150 200 Other: Voiding Method Toilet Urinal # Voids 1 1 # Bowel Movements 0 Weight 79.5 kg - Constitutional General appearance: average body habitus, disheveled, mild distress, thin - EENT Eyes: EOMI, PERRLA, normal appearance ENT: normal oropharynx Ears: bilateral: normal - Neck Neck: normal ROM Carotids: bilateral: upstroke normal, bruit absent Thyroid: bilateral: normal size - Respiratory Respiratory: bilateral: diminished, dullness, rales, prolonged expiration, prolonged inspiration, negative: CTA, rhonchi, wheezing - Cardiovascular Rhythm: regular Heart sounds: normal: S1, S2 - Gastrointestinal General gastrointestinal: decreased bowel sounds, soft - Integumentary Integumentary: normal turgor - Neurologic Neurologic: CNII-XII intact - Musculoskeletal Musculoskeletal: gait normal, generalized weakness, strength equal bilaterally - Psychiatric Psychiatric: A&O x's 3, appropriate affect, intact judgment & insight Results - Laboratory Findings CBC and BMP: 11/18/17 15:16 11/18/17 06:02 PT/INR, D-dimer PT 13.7 sec (9.0-12.0) H 11/12/17 14:40 INR 1.5 (<1.2) H 11/12/17 14:40 Abnormal lab findings: Abnormal Labs 11/12/17 11/12/17 11/12/17 14:40 14:40 14:40 WBC 33.9 H* RBC 4.00 L Hgb 9.0 L Hct 31.3 L MCV 78.2 L MCH 22.4 L MCHC 28.7 L RDW 25.4 H Plt Count 1022 H* Neutrophils # (Manual) 28.40 H Lymphocytes # (Manual) Monocytes # (Manual) 2.03 H Metamyelocytes # (Man) 0.34 H Myelocytes # (Manual) 1.70 H Nucleated RBCs 3 H PT INR Sodium 131 L BUN 21 H Creatinine Glucose 100 H Magnesium Iron Iron Saturation Total Bilirubin GGT Alkaline Phosphatase 165 H Lactate Dehydrogenase Total Creatine Kinase 37 L Total Protein 5.5 L Albumin 3.2 L Urine Protein Urine Mucus 11/12/17 11/12/17 11/13/17 14:40 20:26 02:55 WBC RBC Hgb Hct MCV MCH MCHC RDW Plt Count Neutrophils # (Manual) Lymphocytes # (Manual) Monocytes # (Manual) Metamyelocytes # (Man) Myelocytes # (Manual) Nucleated RBCs PT 13.7 H INR 1.5 H Sodium BUN Creatinine Glucose Magnesium Iron 15 L Iron Saturation 4.25 L Total Bilirubin GGT Alkaline Phosphatase Lactate Dehydrogenase Total Creatine Kinase 34 L Total Protein Albumin Urine Protein Urine Mucus 11/13/17 11/13/17 11/13/17 02:55 02:55 02:55 WBC 30.0 H* RBC 3.75 L Hgb 8.5 L Hct 30.2 L MCV MCH 22.6 L MCHC 28.1 L RDW 23.9 H Plt Count 1020 H* Neutrophils # (Manual) 27.00 H Lymphocytes # (Manual) 0.90 L Monocytes # (Manual) Metamyelocytes # (Man) 1.20 H Myelocytes # (Manual) Nucleated RBCs 2 H PT INR Sodium 135 L BUN 21 H Creatinine Glucose Magnesium Iron Iron Saturation Total Bilirubin 1.4 H GGT 168 H Alkaline Phosphatase 151 H Lactate Dehydrogenase Total Creatine Kinase 44 L Total Protein 5.3 L Albumin 3.0 L Urine Protein Urine Mucus 11/13/17 11/13/17 11/14/17 02:55 23:30 05:37 WBC 27.7 H* RBC 3.71 L Hgb 8.1 L Hct 28.9 L MCV 77.8 L MCH 21.9 L MCHC 28.1 L RDW 24.9 H Plt Count 920 H* Neutrophils # (Manual) 23.50 H Lymphocytes # (Manual) Monocytes # (Manual) 1.11 H Metamyelocytes # (Man) 0.55 H Myelocytes # (Manual) 0.28 H Nucleated RBCs 3 H PT INR Sodium BUN Creatinine Glucose Magnesium Iron Iron Saturation Total Bilirubin GGT Alkaline Phosphatase Lactate Dehydrogenase 1694 H Total Creatine Kinase Total Protein Albumin Urine Protein 1+ H Urine Mucus Rare H 11/14/17 11/14/17 11/15/17 05:37 16:35 05:47 WBC RBC Hgb Hct MCV MCH MCHC RDW Plt Count Neutrophils # (Manual) Lymphocytes # (Manual) Monocytes # (Manual) Metamyelocytes # (Man) Myelocytes # (Manual) Nucleated RBCs PT INR Sodium 136 L 135 L BUN Creatinine Glucose Magnesium 1.4 L Iron Iron Saturation Total Bilirubin GGT Alkaline Phosphatase Lactate Dehydrogenase Total Creatine Kinase Total Protein Albumin Urine Protein Urine Mucus 11/15/17 11/16/17 11/16/17 05:47 06:09 06:09 WBC 34.9 H* 29.7 H* RBC 3.72 L 3.42 L Hgb 8.2 L 7.4 L Hct 29.8 L 27.0 L MCV 79.0 L MCH 21.9 L 21.8 L MCHC 27.4 L 27.6 L RDW 23.6 H 25.1 H Plt Count 1029 H* 850 H* Neutrophils # (Manual) 26.40 H Lymphocytes # (Manual) 0.89 L Monocytes # (Manual) 1.49 H Metamyelocytes # (Man) 0.30 H Myelocytes # (Manual) 0.59 H Nucleated RBCs 2 H PT INR Sodium 136 L BUN 21 H Creatinine 1.26 H Glucose Magnesium Iron Iron Saturation Total Bilirubin GGT Alkaline Phosphatase Lactate Dehydrogenase Total Creatine Kinase Total Protein Albumin Urine Protein Urine Mucus 11/17/17 11/17/17 11/18/17 05:37 14:50 06:02 WBC 36.5 H* RBC 3.17 L Hgb 7.0 L* Hct 25.9 L MCV MCH 22.2 L MCHC 27.2 L RDW 23.8 H Plt Count 809 H* Neutrophils # (Manual) Lymphocytes # (Manual) Monocytes # (Manual) Metamyelocytes # (Man) Myelocytes # (Manual) Nucleated RBCs PT INR Sodium 136 L BUN 26 H 33 H Creatinine 1.80 H 1.75 H Glucose 101 H Magnesium Iron Iron Saturation Total Bilirubin GGT Alkaline Phosphatase Lactate Dehydrogenase Total Creatine Kinase Total Protein Albumin Urine Protein Urine Mucus 11/18/17 11/18/17 06:02 15:16 WBC 32.2 H* 34.9 H* RBC 3.21 L 3.16 L Hgb 7.2 L 7.0 L* Hct 26.3 L 25.8 L MCV MCH 22.3 L 22.1 L MCHC 27.3 L 27.1 L RDW 25.7 H 23.8 H Plt Count 899 H* 785 H Neutrophils # (Manual) 29.60 H Lymphocytes # (Manual) 0.64 L Monocytes # (Manual) Metamyelocytes # (Man) 0.64 H Myelocytes # (Manual) 0.97 H Nucleated RBCs PT INR Sodium BUN Creatinine Glucose Magnesium Iron Iron Saturation Total Bilirubin GGT Alkaline Phosphatase Lactate Dehydrogenase Total Creatine Kinase Total Protein Albumin Urine Protein Urine Mucus - Diagnostic Findings Chest x-ray: report reviewed, image reviewed CT scan - chest: report reviewed, image reviewed (Computed tomography scan performed at the time of admission reviewed moderate right-sided pleural effusion seen with a small right side left-sided pleural effusion, Procardia revealed ejection fraction of 50-55% RV is mildly enlarged patient noted to have a right ventricular septal wall flattening both in systole and diastole suggestive of right ventricular elevated pressure estimated to be 68 MMR ALLERGY suggestive of moderate to severe pulmonary hypertension with moderate TR noted as well) Assessment and Plan Assessment: Progressive increased shortness of breath related to multifactorial processes including chronic anemia, bilateral pleural effusion, myelodysplastic disorder Congestive heart failure acute on chronic diastolic heart failure Acute renal failure Severe pulmonary hypertension likely multifactorial Thrombocytosis severe anemia and leukocytosis Bilateral pleural effusion Coronary artery disease with history of CABG Plan: We'll check a d-dimer if elevated consider doing the VQ scan Check duplex ultrasound of the lower extremity if d-dimer is high Obtain ultrasound of the chest to look into extended a pleural effusion bilateral thoracentesis is will help in terms of breathing but will not resolve the issue entirely Continue to monitor renal functions closely awaiting further recommendation from oncology department at renal services will follow closely Time with Patient: Greater than 30
[2017-11-18] MEDS ORDERED: FUROSEMIDE 10 MG/ML 2 ML VIAL IV SCH (19:00)
--- NOTE | 2017-11-18 19:55 | US ---
EXAMINATION TYPE: US chest DATE OF EXAM: 11/18/2017 COMPARISON: NONE CLINICAL HISTORY: pleural effusion. EXAM MEASUREMENTS: Right Pleural Effusion fluid pocket: 14.5 cm Right skin to fluid thickness: 1.9 cm Left Pleural Effusion fluid pocket: 4.0 cm Left skin to fluid thickness: 2.2 cm Right side marked for possible thoracentesis outside the dept. Pulmonologists are able to review the images in the patient?s EMR. IMPRESSIONS: There is demonstration of bilateral pleural effusions and larger on the right side.
[2017-11-18] MEDS: DOXAZOSIN 4 MG TAB PO SCH (21:10)
[2017-11-18] MEDS: ATORVASTATIN 40 MG TAB PO SCH (21:10)
[2017-11-18] MEDS: CLOPIDOGREL 75 MG TAB PO SCH (21:10)
--- NOTE | 2017-11-18 21:32 | PN ---
PROGRESS NOTE ATTENDING PHYSICIAN: PCP Dr. Franklin Dictating the progress note in the temporary absence of Dr. Franklin by Dr. [facility] Briggs [facility]. Franklin will be return to the care tomorrow on Sunday, November 19, 2017. PHYSICAL EXAMINATION: The patient seen today and evaluated and he stated that he has been short of breath and could not lay flat as he lay flat he feels something compressing on him with the underlying history of congestive heart failure with stable systolic function with probably the underlying diastolic, acute on the top with the troponin was [id number], extremely elevated. He was still on Lasix, but still short of breath. Also he suffers with acute kidney injury with a gradual increase in creatinine, however, today is improved mildly with the expectation that he will be improving by tomorrow, but not recovered completely. Nephrology, Dr. Maddox and Dr. Cruz did see the patient. Because of the pleural effusion bilateral and a feeling of pressure on the chest, Dr. 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 Also he had congestive heart failure, acute on top of chronic diastolic in nature. He had acute renal failure. He has severe pulmonary hypertension, likely multifactorial, for that purposes, he was planned for have V/Q scan to be obtained and aspiration of the fluid and he marked for the aspiration tomorrow. He had a thrombocytosis with severe anemia and leukocytosis as well as coronary artery disease with coronary artery bypass graft. Dr. Bill Menchaca's opinion that he check the D-dimer and if elevated, he will be obtaining the V/Q scan and Doppler ultrasound of the lower extremities if the D-dimer is high to be clarifying the issue of any association with PE and obtain ultrasound of the chest for the pleural effusion and was found as at present was done by the ultrasonic and it is about 14 cm in the right chest. His opinion as well continues renal function monitoring as well as the oncology monitoring. The patient's hemoglobin today dropped to 7 and because of the shortness of breath as well as the feeling of pressure on the chest, we are holding for blood transfusion. However, we requested from Dr. Miller to guide for that and will repeat his hemoglobin and CBC tomorrow and probably if it is below 7, the patient may benefit and also if he had the thoracentesis, probably may benefit also after he had the fluid taken out. The patient had a chest x-ray today on the November 18 and was indicating congestive heart failure and pulmonary edema is worsening than the last exam. Dr. Rios Mess on behalf of Dr. Jeong, cardiology, and they did see the patient today and their impression that he has congestive heart failure with the echocardiogram revealed ejection fraction of 50-55, but he had a moderate to severe pulmonary hypertension. He has known history of coronary artery disease with coronary artery bypass graft in 2007, which the patient underwent CHARLES to the LAD and vein graft to the diagonal and obtuse margin. Next hypertension, hyperlipidemia, peripheral vascular disease with prior vascular procedure, abnormal blood count with thrombocytosis, anemia, leukocytosis, and the troponin was negative x3 per cardiology. The patient had also history of gram- positive Staph intermedius and the patient was treated with Vancomycin, and subsequently also be checked with the Infectious Disease and Dr. Khan did see him at this time and his diagnostic impression that the patient with leukocytosis and hematologic malignancy, doubt of infectious disease and the blood culture was positive, likely contamination and antibiotic has been discontinued. We will watch closely off the antibiotic and continue supportive care. The patient is also seen by Nephrology, Dr. Cruz and his impression that he had acute kidney injury, likely from the dye toxicity. Additional to the vancomycin was used for the Staph intermedius and the creatinine went up from 1 to 1.8. He had history of prostatism but he is asymptomatic and he admitted with shortness of breath and pneumonia and positive blood culture for growing Staph which subsequently found that no pneumonia but mainly congestive heart failure and no infectious process by the Infectious Disease. He has a congestive heart failure and he said at that time was compensated, but currently is not compensated with the shortness of breath today and edema of the lower extremities and need for diuresis as well. He has anemia with a hemoglobin dropped to 7.4, but today it dropped to 7. He had a pleural effusion but currently found to be bilateral. He has a history of coronary artery disease and bypass graft. His recommendation is to check postvoid, check orthostatic, hold the Lasix for 24 hour. Consider discontinuation of the vancomycin which has been discontinued already and monitor the urine output. On today's examination and [id number], the patient was conscious, alert. He stated that he is short of breath and he could not lay on his back with orthopnea and paroxysmal nocturnal dyspnea. His vital signs indicating that his temperature 97.6, pulse rate is 67, respiratory rate 16, and blood pressure 156/68, and his pulse ox 96 on 3 L, which increased from 2 L. His HEENT: The head was normocephalic, atraumatic. He is pale in color and able to eat. Neck was supple. No lymphadenopathy. The chest was decreased air entry with the dullness on percussion on the right lower lung field as well as the left lower lung field and the heart was regular sinus and the abdomen was soft, nontender. However, he had a fullness in the left upper with splenomegaly. The leg he has 1+ pitting edema. He is sitting on the bed. He could not lay down and he is afraid to lay down because of the shortness of breath. He was seen already by Dr. Bill Menchaca, the critical and Pulmonary. ASSESSMENT: 1. Currently still the shortness of breath with the congestive heart failure, diastolic in nature. However, it progressed and he has pulmonary hypertension and pleural effusion and that could be associated with the feeling of pressure with laying down. 2. 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 I do not think that myelodysplastic is the right word. However, he had a thrombocytosis and leukocytosis and anemia. His blood pressure the last one was 156/68 to start to rise and the patient will be taken out of some of the medication and that can be toxic to the kidney and we plan to adjust with the diuresis as well. The IV fluid will cut down to 20 mL an hour and we will start with only Lasix IV 20 mg once a day as well and repeat laboratory tomorrow and we will hold the transfusion tonight until clarification with Dr. Miller the Hematology Oncology who did already do bone marrow biopsy and saw the patient and we do not have any further input from Dr. Miller. At that time, he was suggesting the patient to be discharged. However, patient could not be discharged with the current condition with the shortness of breath and exacerbation and meanwhile His anemia that had become progressive. Dr. Franklin will be back on service tomorrow and Dr. Franklin will continue care for his patient tomorrow. I did discuss it with the patient. [id number] / IJN: [id number] /
--- NOTE | 2017-11-18 22:35 | PN ---
PROGRESS NOTE DATE OF SERVICE: 11/18/2017. REASON FOR FOLLOWUP: Leukocytosis and a positive blood culture. INTERVAL HISTORY: The patient is afebrile. He is complaining of shortness of breath on exertion. No chest pain. No abdominal pain. No nausea, vomiting or diarrhea. EXAMINATION: Blood pressure 156/68, with a pulse of 57, temperature 97.6. He is 93% on 3 L nasal cannula. General description is an elderly male up in the bed, in no distress. Respiratory system: Unlabored breathing with decreased breath sounds in the bases. No wheeze. Heart S1, S2. Regular rate and rhythm. Abdomen soft, no tenderness. LABS: Hemoglobin 7, white count 34.9. Creatinine is down to 1.75. Blood culture repeat has been negative. DIAGNOSTIC IMPRESSION AND PLAN: 1. Patient with a positive blood culture, likely representing a contamination, not true pathogen. Repeat blood cultures has been negative. 2. Elevated white count and thrombocytosis likely due to underlying chronic malignancy with bone marrow as per results currently off systemic antibiotics, that will be monitored closely off antibiotic. Continue supportive care. MMODL / IJN: [id number] /
[2017-11-19 06:11] LABS: Anisocytosis Moderate; Hypochromasia Marked; MCHC 27.9 g/dL (31.0-37.0); MCV 82.4 fL (80.0-100.0); Mean Platelet Volume 8.5; Microcytosis Moderate; Poikilocytosis Marked; RBC 2.79 m/uL (4.30-5.90)
[2017-11-19 06:13] LABS: Calcium 8.3 mg/dL (8.4-10.2); Potassium 4.1 mmol/L (3.5-5.1)
[2017-11-19] MEDS: PANTOPRAZOLE 40 MG TABLET PO SCH ×2 (06:28→17:30)
[2017-11-19 06:43] LABS: WBC 32.5 k/uL (3.8-10.6)
[2017-11-19 06:47] LABS: HGB 6.4 gm/dL (13.0-17.5); Platelet Count 843 k/uL (150-450)
[2017-11-19 08:09] LABS: Band Neutrophils % 4 %; Eosinophils # (M) 0.33 k/uL (0-0.7); Lymphocytes # (M) 2.28 k/uL (1.0-4.8); Metamyelocytes # (M) 1.63 k/uL (0); Metamyelocytes % 5 %; Monocytes # (M) 1.63 k/uL (0-1.0); Myelocytes # (M) 0.98 k/uL (0); Myelocytes % 3 %; Neutrophils % (M) 76 %; Nucleated Red Blood Cells 0 /100 WBC (0-0); Total Cells Counted 200
[2017-11-19 08:10] LABS: Ovalocytes Present; Toxic Granulation Present
[2017-11-19] MEDS: ASPIRIN 81 MG PO SCH (08:17)
[2017-11-19] MEDS: METOPROLOL TARTRATE 50 MG TAB PO SCH ×2 (08:18→20:24)
[2017-11-19] MEDS: SPIRONOLACTONE 25 MG TAB PO SCH (08:18)
[2017-11-19] MEDS: FERROUS SULFATE 325 MG TAB PO SCH (08:18)
[2017-11-19] MEDS ORDERED: FUROSEMIDE 10 MG/ML 2 ML VIAL IV SCH (09:00)
[2017-11-19] MEDS ORDERED: FUROSEMIDE 10 MG/ML 4 ML VIAL IV SCH (10:21)
--- NOTE | 2017-11-19 10:33 | P.PN ---
Subjective Patient is seen in follow for acute kidney injury. His baseline creatinine is 1 and peaked at 1.8 this admission. It is relatively stable at 1.7 today. Patient's currently resting in bed. He does admit to dyspnea. He continues to have orthopnea. He has been voiding area no hematuria or dysuria. He underwent a bone marrow biopsy for which the results are pending. Hemoglobin is low at 6.4 today. He also noted to have bilateral pleural effusions. Vital signs are stable. General: The patient appeared well nourished and normally developed. HEENT: Head exam is unremarkable. Neck is without jugular venous distension. LUNGS: Lungs are clear to auscultation and percussion. Breath sounds decreased. HEART: Rate and Rhythm are regular. First and second heart sounds normal. No murmurs, rubs or gallops. ABDOMEN: Abdominal exam reveals normal bowel sounds. Non-tender and non- distended. No evidence of peritonitis. EXTREMITITES: 1+ edema. Objective - Vital Signs Vital signs: Vital Signs Temp 96.9 F L 11/19/17 08:00 Pulse 72 11/19/17 08:00 Resp 18 11/19/17 08:00 BP 137/63 11/19/17 08:00 Pulse Ox 96 11/19/17 08:00 Intake & Output 11/18/17 11/19/17 11/19/17 18:59 06:59 18:59 Intake Total 1080 360 180 Output Total 350 100 Balance 730 360 80 Weight 80.7 kg Intake: IV 500 360 Sodium Chloride 0.9% 1, 500 360 000 ml @ 30 mls/hr IV . Q24H [facility] Rx#:[id number] Oral 580 180 Output: Urine 350 100 Other: # Voids 1 1 - Labs CBC & Chem 7: 11/19/17 05:37 11/19/17 05:37 Labs: Abnormal Lab Results - Last 24 Hours (Table) 11/18/17 11/18/17 11/19/17 Range/Units 15:16 18:07 05:37 WBC 34.9 H* (3.8-10.6) k/uL RBC 3.16 L (4.30-5.90) m/uL Hgb 7.0 L* (13.0-17.5) gm/dL Hct 25.8 L (39.0-53.0) % MCH 22.1 L (25.0-35.0) pg MCHC 27.1 L (31.0-37.0) g/dL RDW 23.8 H (11.5-15.5) % Plt Count 785 H (150-450) k/uL Neutrophils # (Manual) (1.3-7.7) k/uL Monocytes # (Manual) (0-1.0) k/uL Metamyelocytes # (Man) (0) k/uL Myelocytes # (Manual) (0) k/uL D-Dimer 0.92 H (<0.60) mg/L FEU Sodium 136 L (137-145) mmol/L BUN 34 H (9-20) mg/dL Creatinine 1.70 H (0.66-1.25) mg/dL Calcium 8.3 L (8.4-10.2) mg/dL 11/19/17 Range/Units 05:37 WBC 32.5 H* (3.8-10.6) k/uL RBC 2.79 L (4.30-5.90) m/uL Hgb 6.4 L* (13.0-17.5) gm/dL Hct 23.0 L (39.0-53.0) % MCH 23.0 L (25.0-35.0) pg MCHC 27.9 L (31.0-37.0) g/dL RDW 24.0 H (11.5-15.5) % Plt Count 843 H* (150-450) k/uL Neutrophils # (Manual) 26.00 H (1.3-7.7) k/uL Monocytes # (Manual) 1.63 H (0-1.0) k/uL Metamyelocytes # (Man) 1.63 H (0) k/uL Myelocytes # (Manual) 0.98 H (0) k/uL D-Dimer (<0.60) mg/L FEU Sodium (137-145) mmol/L BUN (9-20) mg/dL Creatinine (0.66-1.25) mg/dL Calcium (8.4-10.2) mg/dL Microbiology - Last 24 Hours (Table) 11/18/17 17:26 Gram Stain - Preliminary Sputum 11/14/17 08:58 Blood Culture - Preliminary Blood No Growth after 96 hours Assessment and Plan Plan: Assessment: #1. Nonoliguric acute kidney injury secondary to ATN secondary to contrast- induced nephropathy. Creatinine is a little better at 1.7 today. Baseline creatinine is 1. Rule out urinary retention. #2. Concern for myeloproliferative disorder status post bone marrow biopsy. Hemoglobin noted to be low at 6.4 today. #3. Bilateral pleural effusions. #4. Diastolic CHF with moderate tricuspid regurgitation and moderate to severe pulmonary hypertension. Plan: I will increase Lasix to 40 mg IV twice daily. Consider blood transition today if okay with oncology. Potential plans for thoracentesis as well. Avoid nephrotoxic agents and hypotensive episodes. Repeat electrolytes in the morning.
[2017-11-19] MEDS ORDERED: FUROSEMIDE 10 MG/ML 4 ML VIAL ONE (10:34)
[2017-11-19] MEDS ORDERED: FUROSEMIDE 10 MG/ML 2 ML VIAL IV ONE (10:45)
--- NOTE | 2017-11-19 15:37 | P.PN ---
Subjective Progress Note Date: 11/19/17 This is a pleasant 77-year-old gentleman who follows regularly with Dr. Kevin Pelayo in the office. He has a known history of coronary artery disease with prior bypass surgery, history of hypertension, hyperlipidemia, his bypass surgery was done in 2007 at which time he underwent CHARLES to the LAD, vein graft to the diagonal and obtuse marginal branch of the circumflex. Patient has peripheral vascular disease and haso had vascular procedures performed by Dr. Mcfadden. Patient states that he underwent an EGD and colonoscopy by Dr. Kwan approximately 2 months ago at [facility], he was then referred to [facility] where he states he is having testing done, unsure exactly what it is for. Dates that since April of last year he has noticed weight loss and muscle wasting. He presents to the hospital on this occasion with symptoms of shortness of breath, positive PND and orthopnea, exertional dyspnea and peripheral edema. EKG on arrival here shows a sinus bradycardia with ST-T wave changes noted in the inferior anterior and lateral leads. All of these changes are new as compared with prior EKG. Chest x-ray, findings represent congestive heart failure with right pleural effusion and associated atelectasis. Chest and abdominal CT was performed, results are pending. Echocardiogram with Doppler study was performed which revealed an ejection fraction of 50-55%. Moderate to severe pulmonary hypertension. Blood pressure 146/60 with a heart rate in the 60s, 99% on 2 L of oxygen. Laboratory data was reviewed, white blood cell count on admission 33,000, 30,000 this morning. Hemoglobin 8.5, platelet count 1020, abnormal neutrophils, monocytes, myelocytes. This all appears to be new as of Dec of this year. Sodium 135, potassium 4.6, BUN 21, creatinine 1.0. Magnesium 1.7, bilirubin is elevated as well as GGT, alk phos, lactate dehydrogenase, BNP level 9640, troponins 0.019, 0.022, 0.022. At the time of my examination this morning, patient is comfortable, he states that his diuresis significant amount, swelling is improving. 11/14/2017 Seen and examined this morning, he was seen in consultation by hematology and they plan to do a bone marrow aspiration tomorrow. Overall he states he is feeling better, his edema is less today. His weight is also down 5 kg today. BUN 18, creatinine 1.0, potassium 4.2. 11/18/2017 Patient seen and examined this morning feeling quite exhausted this morning, quite short of breath. BUN 33 today, creatinine 1.5, potassium 4.4. Test x- ray performed on the showed a right-sided pleural effusion which has increased from prior study. We'll repeat a chest x-ray again today. Blood pressure 144/60 with a heart rate in the 60s. 11/19/2017 Patient seen and examined this morning, extremely short of breath today. Chest x-ray performed yesterday afternoon reveals congestive heart failure and pulmonary edema with associated pleural effusion. Ultrasound of the chest was performed which revealed a right pleural effusion of 14 cm, left pleural effusion 4 cm. Patient is scheduled today to undergo thoracentesis. Objective - Vital Signs Vital signs: Vital Signs Temp 97.1 F L 11/19/17 15:16 Pulse 56 L 11/19/17 15:16 Resp 18 11/19/17 15:16 BP 137/61 11/19/17 15:16 Pulse Ox 97 11/19/17 15:16 Intake & Output 11/18/17 11/19/17 11/19/17 18:59 06:59 18:59 Intake Total 1080 360 360 Output Total 350 100 Balance 730 360 260 Weight 80.7 kg Intake: IV 500 360 Sodium Chloride 0.9% 1, 500 360 000 ml @ 30 mls/hr IV . Q24H [facility] Rx#:[id number] Oral 580 360 Blood Product 0 Rc As-1 Unit 0 [id number] Output: Urine 350 100 Other: # Voids 1 1 - Exam PHYSICAL EXAMINATION: HEENT: Head is atraumatic, normocephalic. Pupils equal, round. Neck is supple. There is elevated jugular venous pressure. Bilateral carotid bruits are audible HEART EXAMINATION: S1 and S2 systolic murmur is heard. CHEST EXAMINATION: Lungs are clear with diminished air entry to bilateral bases , right greater than left. ABDOMEN: Soft, nontender. Bowel sounds are heard. No organomegaly noted. EXTREMITIES: 2+ peripheral pulses with 1+ evidence of peripheral edema and no calf tenderness noted. NEUROLOGIC patient is awake, alert and oriented -3. - Labs CBC & Chem 7: 11/19/17 05:37 11/19/17 05:37 Labs: Abnormal Lab Results - Last 24 Hours (Table) 11/18/17 11/18/17 11/19/17 Range/Units 15:16 18:07 05:37 WBC 34.9 H* (3.8-10.6) k/uL RBC 3.16 L (4.30-5.90) m/uL Hgb 7.0 L* (13.0-17.5) gm/dL Hct 25.8 L (39.0-53.0) % MCH 22.1 L (25.0-35.0) pg MCHC 27.1 L (31.0-37.0) g/dL RDW 23.8 H (11.5-15.5) % Plt Count 785 H (150-450) k/uL Neutrophils # (Manual) (1.3-7.7) k/uL Monocytes # (Manual) (0-1.0) k/uL Metamyelocytes # (Man) (0) k/uL Myelocytes # (Manual) (0) k/uL D-Dimer 0.92 H (<0.60) mg/L FEU Sodium 136 L (137-145) mmol/L BUN 34 H (9-20) mg/dL Creatinine 1.70 H (0.66-1.25) mg/dL Calcium 8.3 L (8.4-10.2) mg/dL Crossmatch 11/19/17 11/19/17 Range/Units 05:37 07:44 WBC 32.5 H* (3.8-10.6) k/uL RBC 2.79 L (4.30-5.90) m/uL Hgb 6.4 L* (13.0-17.5) gm/dL Hct 23.0 L (39.0-53.0) % MCH 23.0 L (25.0-35.0) pg MCHC 27.9 L (31.0-37.0) g/dL RDW 24.0 H (11.5-15.5) % Plt Count 843 H* (150-450) k/uL Neutrophils # (Manual) 26.00 H (1.3-7.7) k/uL Monocytes # (Manual) 1.63 H (0-1.0) k/uL Metamyelocytes # (Man) 1.63 H (0) k/uL Myelocytes # (Manual) 0.98 H (0) k/uL D-Dimer (<0.60) mg/L FEU Sodium (137-145) mmol/L BUN (9-20) mg/dL Creatinine (0.66-1.25) mg/dL Calcium (8.4-10.2) mg/dL Crossmatch See Detail Microbiology - Last 24 Hours (Table) 11/14/17 08:58 Blood Culture - Preliminary Blood No Growth after 120 hours 11/18/17 17:26 Gram Stain - Preliminary Sputum Assessment and Plan Plan: Assessment and plan #1 congestive heart failure, echocardiogram with Doppler study was performed revealed an ejection fraction of 50-55%. Moderate to severe pulmonary hypertension. #2 known history of coronary artery disease with prior bypass surgery in 2007 at which time patient underwent a CHARLES to the LAD, vein graft to the diagonal and obtuse marginal. #3 hypertension #4 hyperlipidemia #5 peripheral vascular disease with prior vascular procedures. #6 abnormality in weight blood cell count, thrombocytosis, anemia, leukocytosis #7 significant EKG changes. Troponins negative 3. Plan Cardiology's perspective, we will continue the patient on his current medications. Pateint is scheduled for thoracentesis today. We will follow this patient with you now on an as-needed basis only, please don't hesitate to call with any questions. DNP note has been reviewed, I agree with a documented findings and plan of care. Patient was seen and examined.
[2017-11-19] MEDS ORDERED: LIDOCAINE 2% INJ 20 MG/ML (20 ML MDV) ONE (16:13)
--- NOTE | 2017-11-19 17:34 | XR ---
EXAMINATION TYPE: XR chest 1V portable DATE OF EXAM: 11/19/2017 COMPARISON: 11/18/2017 HISTORY: Postthoracentesis TECHNIQUE: Single frontal view of the chest is obtained. FINDINGS: Heart is enlarged. There is pulmonary vascular congestion. There is blunting of the costop hrenic angles. There are chest leads. IMPRESSION: Congestive heart failure with bilateral pleural effusions. No pneumothorax. Pleural flui d is probably decreased on the right side compared to last exam.
--- NOTE | 2017-11-19 18:00 | P.PN ---
Subjective Progress Note Date: 11/19/17 Principal diagnosis: Bilateral pleural effusion, myeloproliferativedisorder acute renal failure, acute exacerbation of CHF with severe pulmonary hypertension, severe anemia, thrombocytosis and leukocytosis Gender 2017, patient seen and evaluated examined this morning he was very short of breath with little activity and exertion and complaining of worsening or shortness of breath at rest as well patient hemoglobin was noted to be 6 has been transfused with 1 unit of packed RBC I reviewed with patient about ultrasound finding given the presence of a large amount of fluid on the right side patient would like to proceed with a thoracentesis I have explained it to him about Plavix being on board with slightly high risk of bleeding complication he understood and felt that would not like to wait 1 week off of Plavix in addition patient will need Plavix for his long-term cardiovascular comorbidities Mr. Burk is a 77-year-old male who was admitted into the hospital with progressive increasing shortness of breath, patient has a recent finding of the thrombocytosis as well as leukocytosis and anemia being evaluated for myelodysplastic disorder a V/Q ago patient had a bone marrow aspiration biopsy performed by hematology oncology. Patient described his symptoms to be short of breath at rest and gets worse or makes activity and exertion he cannot walk more than 10 step he is on 3 L oxygen with the saturation are 90-92%, a significant history of the coronary artery disease with history of CABG 10 years ago with history of cardiac cath and angiogram lately in the last several days his creatinine is progressively rising with decline in GFR and patient is slowly dripping into acute renal failure as well. He has a remote history of smoking quit more than 40 years ago, he denies any cough or sputum production denies any night sweats fever or chills patient has issues associated with orthopnea and PND as well with progressive increased lower extremity edema Patient sees Dr. Franklin for primary care activity and Dr. Jeong for cardiovascular disease and issues he was operated on by see Chepe Feldman 10 years ago, patient recently had a EGD perform an [facility] Objective - Vital Signs Vital signs: Vital Signs Temp 97 F L 11/19/17 15:46 Pulse 62 11/19/17 17:22 Resp 16 11/19/17 17:22 BP 137/63 11/19/17 17:22 Pulse Ox 97 11/19/17 17:22 Intake & Output 01/11/19/17 11/19/17 18:59 06:59 18:59 Intake Total 1080 360 360 Output Total 350 200 Balance 730 360 160 Weight 80.7 kg Intake: IV 500 360 Sodium Chloride 0.9% 1, 500 360 000 ml @ 30 mls/hr IV . Q24H [facility] Rx#:[id number] Oral 580 360 Blood Product 0 Rc As-1 Unit 0 [id number] Output: Urine 350 200 Other: # Voids 1 1 - Exam - Constitutional General appearance: average body habitus, disheveled, mild distress, thin - EENT Eyes: EOMI, PERRLA, normal appearance ENT: normal oropharynx Ears: bilateral: normal - Neck Neck: normal ROM Carotids: bilateral: upstroke normal, bruit absent Thyroid: bilateral: normal size - Respiratory Respiratory: bilateral: diminished, dullness, rales, prolonged expiration, prolonged inspiration, negative: CTA, rhonchi, wheezing - Cardiovascular Rhythm: regular Heart sounds: normal: S1, S2 - Gastrointestinal General gastrointestinal: decreased bowel sounds, soft - Integumentary Integumentary: normal turgor - Neurologic Neurologic: CNII-XII intact - Musculoskeletal Musculoskeletal: gait normal, generalized weakness, strength equal bilaterally - Psychiatric Psychiatric: A&O x's 3, appropriate affect, intact judgment & insight - Labs CBC & Chem 7: 11/19/17 05:37 11/19/17 05:37 Labs: Abnormal Lab Results - Last 24 Hours (Table) 11/18/17 11/19/17 11/19/17 Range/Units 18:07 05:37 05:37 WBC 32.5 H* (3.8-10.6) k/uL RBC 2.79 L (4.30-5.90) m/uL Hgb 6.4 L* (13.0-17.5) gm/dL Hct 23.0 L (39.0-53.0) % MCH 23.0 L (25.0-35.0) pg MCHC 27.9 L (31.0-37.0) g/dL RDW 24.0 H (11.5-15.5) % Plt Count 843 H* (150-450) k/uL Neutrophils # (Manual) 26.00 H (1.3-7.7) k/uL Monocytes # (Manual) 1.63 H (0-1.0) k/uL Metamyelocytes # (Man) 1.63 H (0) k/uL Myelocytes # (Manual) 0.98 H (0) k/uL D-Dimer 0.92 H (<0.60) mg/L FEU Sodium 136 L (137-145) mmol/L BUN 34 H (9-20) mg/dL Creatinine 1.70 H (0.66-1.25) mg/dL Calcium 8.3 L (8.4-10.2) mg/dL Crossmatch 11/19/17 Range/Units 07:44 WBC (3.8-10.6) k/uL RBC (4.30-5.90) m/uL Hgb (13.0-17.5) gm/dL Hct (39.0-53.0) % MCH (25.0-35.0) pg MCHC (31.0-37.0) g/dL RDW (11.5-15.5) % Plt Count (150-450) k/uL Neutrophils # (Manual) (1.3-7.7) k/uL Monocytes # (Manual) (0-1.0) k/uL Metamyelocytes # (Man) (0) k/uL Myelocytes # (Manual) (0) k/uL D-Dimer (<0.60) mg/L FEU Sodium (137-145) mmol/L BUN (9-20) mg/dL Creatinine (0.66-1.25) mg/dL Calcium (8.4-10.2) mg/dL Crossmatch See Detail Microbiology - Last 24 Hours (Table) 11/14/17 08:58 Blood Culture - Preliminary Blood No Growth after 120 hours 11/18/17 17:26 Gram Stain - Preliminary Sputum Assessment and Plan Assessment: Bilateral pleural effusion, with very large effusion right more than left Progressive increased shortness of breath related to multifactorial processes including chronic anemia, bilateral pleural effusion, myelodysplastic disorder Congestive heart failure acute on chronic diastolic heart failure Acute renal failure Severe pulmonary hypertension likely multifactorial Thrombocytosis severe anemia and leukocytosis, possible myeloproliferative disorder cannot be excluded Coronary artery disease with history of CABG Plan: We will do thoracentesis on the right side procedures side effect alternate them and complication explained to the patient Noted d-dimer elevated consider doing the VQ scan Check duplex ultrasound of the lower extremity if d-dimer is high Obtain ultrasound of the chest to look into extended a pleural effusion bilateral thoracentesis is will help in terms of breathing but will not resolve the issue entirely Continue to monitor renal functions closely awaiting further recommendation from oncology department at renal services will follow closely
--- NOTE | 2017-11-19 18:05 | P.PCN ---
Date of Procedure: 11/19/17 Preoperative Diagnosis: Large right-sided pleural effusion, myeloproliferative disorder, thrombocytosis , severe anemia, leukocytosis, acute renal failure, severe pulmonary hypertension Postoperative Diagnosis: As above Procedure(s) Performed: Right thoracentesis Anesthesia: local Surgeon: Bill Menchaca Estimated Blood Loss (ml): 0 Condition: stable Disposition: floor Indications for Procedure: Large right-sided pleural effusion Operative Findings: As below Description of Procedure: Procedure explained to the patient at length risk alternative and side effect complication have been explained to the patient ultrasound was utilized to locate the maximum depth of the fluid. One percent lidocaine was infiltrated into the posterior thoracic wall around eighth to ninth intercostal area gauge 24 needle was placed over the rib margin into the pleural space anesthesia was given followed by removal of clear yellow fluid. Catheter in needle was placed over the rib margin the needle was withdrawn catheter left in position and 1.9 L of clear yellow fluid aspirated on the right side, patient tolerated procedure well no complication noted fluid is being sent for Gram stain and culture cytology cell count and differential
[2017-11-19 18:31] LABS: Color,BF Yellow
[2017-11-19 18:32] LABS: Appearance,BF Clear; Nucleated Cells, Body Fluid 245 /uL; RBC, Body Fluid 83 /uL
[2017-11-19 18:40] LABS: Mononuclear WBC,Body Fluid 82 %; Polynuclear WBC,Body Fluid 18 %; Total Cells Counted,Body Fluid 100
[2017-11-19 18:57] LABS: Total Protein 4.7 g/dL (6.3-8.2)
[2017-11-19] MEDS: ATORVASTATIN 40 MG TAB PO SCH (20:23)
[2017-11-19] MEDS: CLOPIDOGREL 75 MG TAB PO SCH (20:24)
[2017-11-19] MEDS: HYDROcodone/APAP 5-325MG 1 EACH TAB PO PRN (20:24)
[2017-11-19] MEDS: DOXAZOSIN 4 MG TAB PO SCH (20:24)
[2017-11-19] MEDS: FUROSEMIDE 10 MG/ML 4 ML VIAL IV SCH (20:24)
--- NOTE | 2017-11-19 20:44 | US ---
EXAMINATION TYPE: US venous doppler duplex LE BI DATE OF EXAM: 11/19/2017 7:48 PM COMPARISON: NONE CLINICAL HISTORY: dvt. SIDE PERFORMED: Bilateral TECHNIQUE: The lower extremity deep venous system is examined utilizing real time linear array sonog golden with graded compression, doppler sonography and color-flow sonography. VESSELS IMAGED: External Iliac Vein (EIV) Common Femoral Vein Deep Femoral Vein Greater Saphenous Vein * Femoral Vein Popliteal Vein Small Saphenous Vein * Proximal Calf Veins (* superficial vessels) Right Leg: Negative for DVT Left Leg: Negative for DVT No evidence of DVT bilateral legs. IMPRESSION: Negative exam. No evidence of deep venous thrombosis in both legs.
[2017-11-20 06:32] LABS: Calcium 8.5 mg/dL (8.4-10.2); Magnesium 1.9 mg/dL (1.6-2.3); Potassium 4.1 mmol/L (3.5-5.1)
--- NOTE | 2017-11-20 06:40 | PN ---
PROGRESS NOTE DATE OF PROGRESS: 11/19/2017 CHIEF COMPLAINT: Re-evaluation. HISTORY OF PRESENT ILLNESS: This 77-year-old gentleman who was admitted to the hospital in my absence. The patient has been cared for by covering physicians. The patient also has multiple consultations including new patient escort, cardiology, server administrator, and ID. The patient has no evidence of infection. The patient does have symptoms of dyspnea on exertion and orthopnea. He does have a history of previous coronary artery disease and atherosclerosis including significant peripheral arterial disease. The patient has a history of COPD. The patient also has anemia and thrombocytosis and leukocytosis. The patient actually had an appointment scheduled with a new patient escort oncologist on outpatient,it was about a month away. The patient presents to the hospital because of shortness of breath. He was admitted. He has been seen by Dr. Miller and patient has undergone bone marrow biopsy, results pending. The patient has been seen by Pulmonary and they are planning to do a thoracentesis. the patient has right lower chest dullness. The patient does have peripheral edema with suggestion of CHF. The patient has predominantly right- sided failure, though he has evidence of acute on chronic CHF secondary to diastolic dysfunction. The patient has been followed by Cardiology. The patient has no significant changes regarding that. The patient also seen by electrical contractor for renal failure, which is felt to be partly related to contrast use. The patient overall is feeling better today. He is planned for a thoracentesis as mentioned above. REVIEW OF SYSTEMS: NEURO: Denies any headaches, dizziness. PSYCH: No anxiety. CARDIAC: No chest pain, angina, palpitations. RESPIRATORY: Shortness of breath as mentioned above. Minimal cough. No hemoptysis. GI: No nausea, vomiting, abdominal pain, diarrhea. No melena. : No symptoms of dysuria, hematuria, frequency. EXTREMITIES: Edema. CONSTITUTIONAL: No fever or chills. PHYSICAL EXAMINATION: Pleasant gentleman in no distress. Vital signs reveal temperature 96.9, pulse 72, respirations 16, blood pressure 137/63, pulse ox 96% on 3 L. HEENT: Normocephalic. NECK: No JVD. CHEST EXAMINATION: Dullness to percussion right base, generalized decreased air flow. wheezing or rhonchi. CARDIAC: Distant heart sounds, S1, S2 with no gallops. Systolic murmur 2/6 left sternal border. ABDOMEN: Soft. No palpable masses. Bowel sounds normal. Extremities reveal 1 to 2+ edema at both lower legs early this morning. ASSESSMENT: 1. Acute on chronic congestive cardiac failure secondary to diastolic dysfunction. 2. Anemia with a hemoglobin of 6.4 with underlying myeloproliferative disorder as well as evidence of chronic gastrointestinal blood loss with gastrointestinal blood loss. 3. Coronary artery disease. 4. Peripheral arterial disease. 5. Leukocytosis and thrombocytosis. PLAN: Continue present medical regimen. We will add Lasix to the patient. DC IV fluids. The patient as mentioned above is scheduled for a thoracentesis more therapeutic. The patient awaits bone marrow results. He has had recent upper and lower endoscopies done. He has dysplastic lower end of esophagus and actually was referred to a physician up at [facility] by Dr. Kwan for endoscopic surgical procedure; however, that has been on hold due to the patient's symptoms of orthopnea. Meanwhile, continue present regimen. Preferably, the patient will be discharged within 48 hours with . Continue to follow renal function, CBC. We will defer transfusion today. The patient does not seem to be in any hemodynamic instability. We will await the opinion off the new patient escort regarding transfusion. MMODL / IJN: [id number] /
[2017-11-20] MEDS: PANTOPRAZOLE 40 MG TABLET PO SCH ×2 (06:55→18:52)
[2017-11-20 08:10] LABS: Anisocytosis Moderate; HCT 29.5 % (39.0-53.0); Hypochromasia Marked; MCH 22.5 pg (25.0-35.0); MCHC 26.9 g/dL (31.0-37.0); MCV 83.7 fL (80.0-100.0); Mean Platelet Volume 9.1; Microcytosis Slight; Platelet Count 774 k/uL (150-450); Poikilocytosis Marked; RBC 3.52 m/uL (4.30-5.90); RDW 22.8 % (11.5-15.5)
[2017-11-20 08:18] LABS: HGB 7.9 gm/dL (13.0-17.5)
[2017-11-20 08:45] LABS: Band Neutrophils % 6 %; Metamyelocytes % 3 %; Myelocytes % 6 %; Neutrophils % (M) 74 %; Nucleated Red Blood Cells 1 /100 WBC (0-0); Total Cells Counted 200
[2017-11-20 08:46] LABS: Eosinophils # (M) 0.91 k/uL (0-0.7); Lymphocytes # (M) 1.51 k/uL (1.0-4.8); Metamyelocytes # (M) 0.91 k/uL (0); Monocytes # (M) 1.51 k/uL (0-1.0); Myelocytes # (M) 1.81 k/uL (0); RBC Fragments Present; WBC 30.2 k/uL (3.8-10.6)
[2017-11-20 08:47] LABS: Dohle Bodies Present; Ovalocytes Present; Polychromasia Present; Toxic Vacuolation Present
[2017-11-20] MEDS: FERROUS SULFATE 325 MG TAB PO SCH (09:39)
[2017-11-20] MEDS: METOPROLOL TARTRATE 50 MG TAB PO SCH ×2 (09:39→20:53)
[2017-11-20] MEDS: FUROSEMIDE 10 MG/ML 4 ML VIAL IV SCH ×2 (09:39→20:53)
[2017-11-20] MEDS: SPIRONOLACTONE 25 MG TAB PO SCH (09:39)
[2017-11-20] MEDS: ASPIRIN 81 MG PO SCH (09:39)
--- NOTE | 2017-11-20 10:01 | NM ---
EXAMINATION TYPE: NM pul vent and perfuse DATE OF EXAM: 11/20/2017 COMPARISON: 11/19/2017 chest radiograph and negative lower extremity ultrasound dated 11/19/2017. HISTORY: Pulmonary embolus TECHNIQUE: Utilizing inhalation of 71.1 mCi Tc 99m DTPA aerosol and intravenous injection of 5.5 mCi of Tc 99m MAA, ventilation and perfusion images are acquired post injection in multiple projections. FINDINGS: No evidence of mismatched defects. Matched defects are seen at the lung bases, right greater than lef t relating to the known bilateral small pleural effusions. Patchy nonsegmental, nonuniform matched de fects are also seen in a linear pattern throughout both lungs likely relating to the known mild pulmo nary vascular congestion/interstitial edema. Cardiomegaly is redemonstrated. IMPRESSION: Very low probability of pulmonary embolism. Findings suggest bilateral pleural effusions, right great er than left, with mild interstitial pulmonary edema as seen on the prior exam.
[2017-11-20 11:04] VITALS: BMI 27.4
--- NOTE | 2017-11-20 11:31 | P.PN ---
Subjective Patient is seen in follow for acute kidney injury. His baseline creatinine is 1 and peaked at 1.8 this admission. It is down to 1.5 to today. Patient's currently resting in bed. Dyspnea is improved. He underwent right-sided thoracentesis yesterday with 1.9 L drained. He has been voiding and denies any hematuria or dysuria. He underwent a bone marrow biopsy for which the results are pending. Hemoglobin is 7.9 today. He did receive blood transfusion yesterday. Vital signs are stable. General: The patient appeared well nourished and normally developed. HEENT: Head exam is unremarkable. Neck is without jugular venous distension. LUNGS: Lungs are clear to auscultation and percussion. Breath sounds decreased. HEART: Rate and Rhythm are regular. First and second heart sounds normal. No murmurs, rubs or gallops. ABDOMEN: Abdominal exam reveals normal bowel sounds. Non-tender and non- distended. No evidence of peritonitis. EXTREMITITES: 1+ edema. Objective - Vital Signs Vital signs: Vital Signs Temp 97.4 F L 11/20/17 08:00 Pulse 75 11/20/17 08:00 Resp 19 11/20/17 08:00 BP 129/86 11/20/17 08:00 Pulse Ox 97 11/20/17 08:00 Intake & Output 11/19/17 11/20/17 11/20/17 18:59 06:59 18:59 Intake Total 850 380 Output Total 200 Balance 650 380 Weight 79.6 kg 79.6 kg Intake: IV 0 0.9 0 Intake, IV Titration 0 Amount IV Fluid Continuation 1, 0 000 ml As IV .[facility] Rx#:[id number] Oral 540 380 Blood Product 310 Rc As-1 Unit 310 [id number] Output: Urine 200 Other: Voiding Method Urinal Urinal # Voids 1 1 # Bowel Movements 1 - Labs CBC & Chem 7: 11/20/17 05:45 11/20/17 05:45 Labs: Abnormal Lab Results - Last 24 Hours (Table) 11/19/17 11/19/17 11/20/17 Range/Units 05:37 07:44 05:45 WBC (3.8-10.6) k/uL RBC (4.30-5.90) m/uL Hgb (13.0-17.5) gm/dL Hct (39.0-53.0) % MCH (25.0-35.0) pg MCHC (31.0-37.0) g/dL RDW (11.5-15.5) % Plt Count (150-450) k/uL Neutrophils # (Manual) (1.3-7.7) k/uL Monocytes # (Manual) (0-1.0) k/uL Eosinophils # (Manual) (0-0.7) k/uL Metamyelocytes # (Man) (0) k/uL Myelocytes # (Manual) (0) k/uL Nucleated RBCs (0-0) /100 WBC BUN 35 H (9-20) mg/dL Creatinine 1.52 H (0.66-1.25) mg/dL Lactate Dehydrogenase 1195 H (313-618) U/L Total Protein 4.7 L (6.3-8.2) g/dL Crossmatch See Detail 11/20/17 Range/Units 05:45 WBC 30.2 H* (3.8-10.6) k/uL RBC 3.52 L (4.30-5.90) m/uL Hgb 7.9 L D (13.0-17.5) gm/dL Hct 29.5 L (39.0-53.0) % MCH 22.5 L (25.0-35.0) pg MCHC 26.9 L (31.0-37.0) g/dL RDW 22.8 H (11.5-15.5) % Plt Count 774 H (150-450) k/uL Neutrophils # (Manual) 24.10 H (1.3-7.7) k/uL Monocytes # (Manual) 1.51 H (0-1.0) k/uL Eosinophils # (Manual) 0.91 H (0-0.7) k/uL Metamyelocytes # (Man) 0.91 H (0) k/uL Myelocytes # (Manual) 1.81 H (0) k/uL Nucleated RBCs 1 H (0-0) /100 WBC BUN (9-20) mg/dL Creatinine (0.66-1.25) mg/dL Lactate Dehydrogenase (313-618) U/L Total Protein (6.3-8.2) g/dL Crossmatch Microbiology - Last 24 Hours (Table) 11/19/17 16:30 Body Fluid Culture - Preliminary Pleural Fluid 11/19/17 16:30 Fungal Culture - Preliminary Pleural Fluid 11/19/17 16:30 Anaerobic Culture - Preliminary Pleural Fluid 11/19/17 16:30 Acid Fast Bacilli Culture - Preliminary Pleural Fluid 11/14/17 08:58 Blood Culture - Preliminary Blood No Growth after 120 hours Assessment and Plan Plan: Assessment: #1. Nonoliguric acute kidney injury secondary to ATN secondary to contrast- induced nephropathy and cardiorenal syndrome. Creatinine down to 1.5 to today. Baseline creatinine is 1. No evidence of urinary retention. #2. Concern for myeloproliferative disorder status post bone marrow biopsy. Hemoglobin noted to be low at 6.4 today. #3. Bilateral pleural effusions status post right-sided thoracentesis on 2017 with 1.9 L drained. #4. Diastolic CHF with moderate tricuspid regurgitation and moderate to severe pulmonary hypertension. Plan: Continue Lasix 40 mg IV twice daily for now - can be transitioned to oral upon discharge. Avoid nephrotoxic agents and hypotensive episodes. Repeat electrolytes in the morning. Anticipate discharge soon. He will need to follow-up as an outpatient in the next 1-2 weeks. He will also need to get a basic metabolic panel checked within 2-3 days of discharge.
--- NOTE | 2017-11-20 13:55 | P.PN ---
Subjective Progress Note Date: 11/20/17 Principal diagnosis: Bilateral pleural effusion, myeloproliferativedisorder acute renal failure, acute exacerbation of CHF with severe pulmonary hypertension, severe anemia, thrombocytosis and leukocytosis 11/20/2017, patient seen and evaluated examined during the rounds he is a status post to the right thoracentesis with 1.95 L of fluid has been removed as well as the transfusion with 1 unit of packed RBC is severe due to shortness of breath is slightly better still gets short of breath on activity and exertion, results of duplex ultrasound the lower extremity and VQ scan reviewed, given the VQ scan is a very low probability and duplex ultrasound are negative for DVT likelihood DVT PE is very low, presence of severe pulmonary hypertension remains unexplained however November 19 2017, patient seen and evaluated examined this morning he was very short of breath with little activity and exertion and complaining of worsening or shortness of breath at rest as well patient hemoglobin was noted to be 6 has been transfused with 1 unit of packed RBC I reviewed with patient about ultrasound finding given the presence of a large amount of fluid on the right side patient would like to proceed with a thoracentesis I have explained it to him about Plavix being on board with slightly high risk of bleeding complication he understood and felt that would not like to wait 1 week off of Plavix in addition patient will need Plavix for his long-term cardiovascular comorbidities Mr. Burk is a 77-year-old male who was admitted into the hospital with progressive increasing shortness of breath, patient has a recent finding of the thrombocytosis as well as leukocytosis and anemia being evaluated for myelodysplastic disorder a V/Q ago patient had a bone marrow aspiration biopsy performed by hematology oncology. Patient described his symptoms to be short of breath at rest and gets worse or makes activity and exertion he cannot walk more than 10 step he is on 3 L oxygen with the saturation are 90-92%, a significant history of the coronary artery disease with history of CABG 10 years ago with history of cardiac cath and angiogram lately in the last several days his creatinine is progressively rising with decline in GFR and patient is slowly dripping into acute renal failure as well. He has a remote history of smoking quit more than 40 years ago, he denies any cough or sputum production denies any night sweats fever or chills patient has issues associated with orthopnea and PND as well with progressive increased lower extremity edema Patient sees Dr. Franklin for primary care activity and Dr. Jeong for cardiovascular disease and issues he was operated on by see Chepe Aguilar'marni 10 years ago, patient recently had a EGD perform an [facility] Objective - Vital Signs Vital signs: Vital Signs Temp 98.1 F 11/20/17 12:00 Pulse 68 11/20/17 12:00 Resp 16 11/20/17 12:00 BP 142/65 11/20/17 12:00 Pulse Ox 95 11/20/17 12:00 Intake & Output 11/19/17 11/20/17 11/20/17 18:59 06:59 18:59 Intake Total 850 580 Output Total 200 300 Balance 650 280 Weight 79.6 kg 79.6 kg Intake: IV 0 0.9 0 Intake, IV Titration 0 Amount IV Fluid Continuation 1, 0 000 ml As IV .[facility] Rx#:[id number] Oral 540 580 Blood Product 310 Rc As-1 Unit 310 [id number] Output: Urine 200 300 Other: Voiding Method Urinal Urinal # Voids 1 1 # Bowel Movements 1 - Exam - Constitutional General appearance: average body habitus, disheveled, mild distress, thin - EENT Eyes: EOMI, PERRLA, normal appearance ENT: normal oropharynx Ears: bilateral: normal - Neck Neck: normal ROM Carotids: bilateral: upstroke normal, bruit absent Thyroid: bilateral: normal size - Respiratory Respiratory: bilateral: diminished, dullness, rales, prolonged expiration, prolonged inspiration, negative: CTA, rhonchi, wheezing - Cardiovascular Rhythm: regular Heart sounds: normal: S1, S2 - Gastrointestinal General gastrointestinal: decreased bowel sounds, soft - Integumentary Integumentary: normal turgor - Neurologic Neurologic: CNII-XII intact - Musculoskeletal Musculoskeletal: gait normal, generalized weakness, strength equal bilaterally - Psychiatric Psychiatric: A&O x's 3, appropriate affect, intact judgment & insight - Labs CBC & Chem 7: 11/20/17 05:45 11/20/17 05:45 Labs: Abnormal Lab Results - Last 24 Hours (Table) 11/19/17 11/19/17 11/20/17 Range/Units 05:37 07:44 05:45 WBC (3.8-10.6) k/uL RBC (4.30-5.90) m/uL Hgb (13.0-17.5) gm/dL Hct (39.0-53.0) % MCH (25.0-35.0) pg MCHC (31.0-37.0) g/dL RDW (11.5-15.5) % Plt Count (150-450) k/uL Neutrophils # (Manual) (1.3-7.7) k/uL Monocytes # (Manual) (0-1.0) k/uL Eosinophils # (Manual) (0-0.7) k/uL Metamyelocytes # (Man) (0) k/uL Myelocytes # (Manual) (0) k/uL Nucleated RBCs (0-0) /100 WBC BUN 35 H (9-20) mg/dL Creatinine 1.52 H (0.66-1.25) mg/dL Lactate Dehydrogenase 1195 H (313-618) U/L Total Protein 4.7 L (6.3-8.2) g/dL Crossmatch See Detail 11/20/17 Range/Units 05:45 WBC 30.2 H* (3.8-10.6) k/uL RBC 3.52 L (4.30-5.90) m/uL Hgb 7.9 L D (13.0-17.5) gm/dL Hct 29.5 L (39.0-53.0) % MCH 22.5 L (25.0-35.0) pg MCHC 26.9 L (31.0-37.0) g/dL RDW 22.8 H (11.5-15.5) % Plt Count 774 H (150-450) k/uL Neutrophils # (Manual) 24.10 H (1.3-7.7) k/uL Monocytes # (Manual) 1.51 H (0-1.0) k/uL Eosinophils # (Manual) 0.91 H (0-0.7) k/uL Metamyelocytes # (Man) 0.91 H (0) k/uL Myelocytes # (Manual) 1.81 H (0) k/uL Nucleated RBCs 1 H (0-0) /100 WBC BUN (9-20) mg/dL Creatinine (0.66-1.25) mg/dL Lactate Dehydrogenase (313-618) U/L Total Protein (6.3-8.2) g/dL Crossmatch Microbiology - Last 24 Hours (Table) 11/14/17 08:58 Blood Culture - Final Blood No Growth after 144 hours 11/19/17 16:30 Body Fluid Culture - Preliminary Pleural Fluid 11/19/17 16:30 Fungal Culture - Preliminary Pleural Fluid 11/19/17 16:30 Anaerobic Culture - Preliminary Pleural Fluid 11/19/17 16:30 Acid Fast Bacilli Culture - Preliminary Pleural Fluid Assessment and Plan Assessment: Bilateral pleural effusion, with very large effusion right more than left Progressive increased shortness of breath related to multifactorial processes including chronic anemia, bilateral pleural effusion, myelodysplastic disorder Congestive heart failure acute on chronic diastolic heart failure Acute renal failure Severe pulmonary hypertension likely multifactorial Thrombocytosis severe anemia and leukocytosis, possible myeloproliferative disorder cannot be excluded Coronary artery disease with history of CABG Noted very high protein in the pleural fluid which is unclear as appearance of fluid is more of a transudate of fluid in addition the LDH in the fluid is very low suggestive of transudate in nature Plan: Status post thoracentesis on the right side procedures side effect alternate them and complication explained to the patient Noted d-dimer elevated status post VQ scan mouth very low probability for PE Status post duplex ultrasound of the lower extremity negative for DVT DD supportive care will repeat another ultrasound after 48-72 hours hours to look into reaccumulation of fluid Continue to monitor renal functions closely awaiting further recommendation from oncology department at renal services will follow closely Time with Patient: Greater than 30
[2017-11-20] MEDS: DOXAZOSIN 4 MG TAB PO SCH (20:53)
[2017-11-20] MEDS: CLOPIDOGREL 75 MG TAB PO SCH (20:53)
[2017-11-20] MEDS: ATORVASTATIN 40 MG TAB PO SCH (20:53)
[2017-11-20] MEDS: HYDROcodone/APAP 5-325MG 1 EACH TAB PO PRN (20:53)
--- NOTE | 2017-11-20 21:27 | PN ---
PROGRESS NOTE CHIEF COMPLAINT: Re-evaluation. HISTORY OF PRESENT ILLNESS: This gentleman is a 77-year-old who was admitted to the hospital because of shortness of breath. He is feeling better. He had a thoracentesis with removal of about 1.9 liters of fluid. REVIEW OF SYSTEMS: NEURO: Denies any headaches, dizziness. PSYCH: No anxiety. CARDIAC: No chest pain, angina, palpitations. RESPIRATORY: Shortness of breath with activity. No cough, hemoptysis. GI: No nausea, vomiting, abdominal pain, diarrhea. : No symptoms of dysuria, hematuria, urgency, frequency. EXTREMITIES: No pain, edema. CONSTITUTIONAL: No fever or chills. PHYSICAL EXAMINATION: Vital signs revealed temperature 97.4, pulse 69, respirations 16, blood pressure 129/86, pulse ox 97% on 2 L. HEENT: Normocephalic. NECK: Supple. No JVD. CHEST: Clear to auscultation with minimal dullness to percussion at bases. CARDIAC: Distant heart sounds S1, S2 with no gallop. Systolic murmur 2/6, left sternal border and apex. ABDOMEN: Soft. Bowel sounds present. LOWER EXTREMITIES: Edema decreased. Neurologically awake, alert, oriented with well-coordinated movements. LABORATORY ASSESSMENT: CBC reveals white count of 30,000, hemoglobin 7.9, platelets 774 with metamyelocytes seen in the peripheral smear. Electrolytes are normal. BUN 35, creatinine down 1.52. Pleural fluid protein 1.35 grams. LDH is low at 141. Patient has transudative fluid. ASSESSMENT: 1. Congestive cardiac failure secondary to diastolic dysfunction. 2. Anemia. 3. Myeloproliferative disorder, pending bone marrow results. 4. Acute on chronic renal failure, improved. 5. Anemia secondary to chronic gastrointestinal blood loss. 6. Chronic esophagitis. PLAN: The patient at present is stable. Continue present medical regimen. Potential discharge home tomorrow. The patient's condition was discussed with the patient. Prognosis guarded. MMODL / IJN: [id number] /
[2017-11-20] MEDS: ALPRAZolam 0.25 MG TAB PO PRN (23:47)
[2017-11-21] MEDS: HYDROcodone/APAP 5-325MG 1 EACH TAB PO PRN (06:13)
[2017-11-21] MEDS: PANTOPRAZOLE 40 MG TABLET PO SCH (06:14)
[2017-11-21 06:32] LABS: Calcium 8.7 mg/dL (8.4-10.2); Magnesium 1.9 mg/dL (1.6-2.3)
--- NOTE | 2017-11-21 09:05 | P.PN ---
Subjective Patient is seen in follow for acute kidney injury. His baseline creatinine is 1 and peaked at 1.8 this admission. It is down to 1.48 to today. Patient's currently resting in bed. Dyspnea is improved. He underwent right-sided thoracentesis on November 19 with 1.9 L drained. He has been voiding and denies any hematuria or dysuria. He underwent a bone marrow biopsy for which the results are pending. Hemodynamically stable. Vital signs are stable. General: The patient appeared well nourished and normally developed. HEENT: Head exam is unremarkable. Neck is without jugular venous distension. LUNGS: Lungs are clear to auscultation and percussion. Breath sounds decreased. HEART: Rate and Rhythm are regular. First and second heart sounds normal. No murmurs, rubs or gallops. ABDOMEN: Abdominal exam reveals normal bowel sounds. Non-tender and non- distended. No evidence of peritonitis. EXTREMITITES: 1+ edema. Objective - Vital Signs Vital signs: Vital Signs Temp 97.1 F L 11/21/17 04:00 Pulse 78 11/21/17 04:00 Resp 19 11/21/17 04:00 BP 98/51 11/21/17 04:00 Pulse Ox 98 11/21/17 04:00 Intake & Output 11/20/17 11/21/17 11/21/17 18:59 06:59 18:59 Intake Total 760 260 180 Output Total 800 225 Balance -40 35 180 Weight 79.6 kg 78.3 kg Intake: IV 0 20 0.9 0 20 Intake, IV Titration 0 Amount IV Fluid Continuation 1, 0 000 ml As IV .[facility] Rx#:[id number] Oral 760 240 180 Output: Urine 800 225 Other: Voiding Method Urinal Urinal # Voids 1 - Labs CBC & Chem 7: 11/20/17 05:45 11/21/17 05:37 Labs: Abnormal Lab Results - Last 24 Hours (Table) 11/19/17 11/21/17 Range/Units 07:44 05:37 BUN 34 H (9-20) mg/dL Creatinine 1.48 H (0.66-1.25) mg/dL Crossmatch See Detail Microbiology - Last 24 Hours (Table) 11/19/17 16:30 Gram Stain - Preliminary Pleural Fluid Body Fluid Culture - Preliminary 11/19/17 16:30 Acid Fast Bacilli Smear - Final Pleural Fluid Acid Fast Bacilli Culture - Preliminary 11/18/17 17:26 Gram Stain - Preliminary Sputum Sputum Culture - Preliminary Betsy albicans Gram Neg Bacilli 11/14/17 08:58 Blood Culture - Final Blood No Growth after 144 hours Assessment and Plan Plan: Assessment: #1. Nonoliguric acute kidney injury secondary to ATN secondary to contrast- induced nephropathy and cardiorenal syndrome. Creatinine down to 1.48 today. Baseline creatinine is 1. No evidence of urinary retention. #2. Concern for myeloproliferative disorder status post bone marrow biopsy. Status post blood transfusion this admission. #3. Bilateral pleural effusions status post right-sided thoracentesis on 2017 with 1.9 L drained. #4. Diastolic CHF with moderate tricuspid regurgitation and moderate to severe pulmonary hypertension. Plan: Continue Lasix 40 mg IV twice daily for now - can be transitioned to oral upon discharge. Avoid nephrotoxic agents and hypotensive episodes. Repeat electrolytes in the morning. Anticipate discharge soon. He will need to follow-up as an outpatient in the next 1-2 weeks. He will also need to get a basic metabolic panel checked within 2-3 days of discharge.
[2017-11-21] MEDS: FERROUS SULFATE 325 MG TAB PO SCH (09:35)
[2017-11-21] MEDS: SPIRONOLACTONE 25 MG TAB PO SCH (09:35)
[2017-11-21] MEDS: METOPROLOL TARTRATE 50 MG TAB PO SCH (09:35)
[2017-11-21] MEDS: ASPIRIN 81 MG PO SCH (09:35)
[2017-11-21] MEDS: FUROSEMIDE 10 MG/ML 4 ML VIAL IV SCH (09:35)
[2017-11-21 15:00] VITALS: BP 123/58; PULSE 83; RESP 20; TEMP 96.7
--- NOTE | 2017-11-21 16:11 | P.PN ---
Subjective Progress Note Date: 11/21/17 Principal diagnosis: Bilateral pleural effusion, myeloproliferativedisorder acute renal failure, acute exacerbation of CHF with severe pulmonary hypertension, severe anemia, thrombocytosis and leukocytosis 08/21/2018, patient seen eval examined during the rounds clinically he is doing slightly better his shortness of breath still there was severity has improved and remains hypoxic with sats into mid 80s requiring supplemental oxygen he didn 't does desaturate activity and exertion, the bone marrow biopsy results are back suggest a myeloproliferative disorder 11/20/2017, patient seen and evaluated examined during the rounds he is a status post to the right thoracentesis with 1.95 L of fluid has been removed as well as the transfusion with 1 unit of packed RBC is severe due to shortness of breath is slightly better still gets short of breath on activity and exertion, results of duplex ultrasound the lower extremity and VQ scan reviewed, given the VQ scan is a very low probability and duplex ultrasound are negative for DVT likelihood DVT PE is very low, presence of severe pulmonary hypertension remains unexplained however November 19 2017, patient seen and evaluated examined this morning he was very short of breath with little activity and exertion and complaining of worsening or shortness of breath at rest as well patient hemoglobin was noted to be 6 has been transfused with 1 unit of packed RBC I reviewed with patient about ultrasound finding given the presence of a large amount of fluid on the right side patient would like to proceed with a thoracentesis I have explained it to him about Plavix being on board with slightly high risk of bleeding complication he understood and felt that would not like to wait 1 week off of Plavix in addition patient will need Plavix for his long-term cardiovascular comorbidities Mr. Burk is a 77-year-old male who was admitted into the hospital with progressive increasing shortness of breath, patient has a recent finding of the thrombocytosis as well as leukocytosis and anemia being evaluated for myelodysplastic disorder a V/Q ago patient had a bone marrow aspiration biopsy performed by hematology oncology. Patient described his symptoms to be short of breath at rest and gets worse or makes activity and exertion he cannot walk more than 10 step he is on 3 L oxygen with the saturation are 90-92%, a significant history of the coronary artery disease with history of CABG 10 years ago with history of cardiac cath and angiogram lately in the last several days his creatinine is progressively rising with decline in GFR and patient is slowly dripping into acute renal failure as well. He has a remote history of smoking quit more than 40 years ago, he denies any cough or sputum production denies any night sweats fever or chills patient has issues associated with orthopnea and PND as well with progressive increased lower extremity edema Patient sees Dr. Franklin for primary care activity and Dr. Jeong for cardiovascular disease and issues he was operated on by see Chepe Feldman 10 years ago, patient recently had a EGD perform an [facility] Objective - Vital Signs Vital signs: Vital Signs Temp 96.7 F L 11/21/17 12:00 Pulse 83 11/21/17 12:00 Resp 20 11/21/17 12:00 BP 123/58 11/21/17 12:00 Pulse Ox 92 L 11/21/17 12:00 Intake & Output 11/20/17 11/21/17 11/21/17 18:59 06:59 18:59 Intake Total 760 260 380 Output Total 800 225 Balance -40 35 380 Weight 79.6 kg 78.3 kg Intake: IV 0 20 0 0.9 0 20 0 Intake, IV Titration 0 Amount IV Fluid Continuation 1, 0 000 ml As IV .[facility] Rx#:[id number] Oral 760 240 380 Output: Urine 800 225 Other: Voiding Method Urinal Urinal Urinal # Voids 1 1 - Exam - Constitutional General appearance: average body habitus, disheveled, mild distress, thin - EENT Eyes: EOMI, PERRLA, normal appearance ENT: normal oropharynx Ears: bilateral: normal - Neck Neck: normal ROM Carotids: bilateral: upstroke normal, bruit absent Thyroid: bilateral: normal size - Respiratory Respiratory: bilateral: diminished, dullness, rales, prolonged expiration, prolonged inspiration, negative: CTA, rhonchi, wheezing - Cardiovascular Rhythm: regular Heart sounds: normal: S1, S2 - Gastrointestinal General gastrointestinal: decreased bowel sounds, soft - Integumentary Integumentary: normal turgor - Neurologic Neurologic: CNII-XII intact - Musculoskeletal Musculoskeletal: gait normal, generalized weakness, strength equal bilaterally - Psychiatric Psychiatric: A&O x's 3, appropriate affect, intact judgment & insight - Labs CBC & Chem 7: 11/20/17 05:45 11/21/17 05:37 Labs: Abnormal Lab Results - Last 24 Hours (Table) 11/21/17 Range/Units 05:37 BUN 34 H (9-20) mg/dL Creatinine 1.48 H (0.66-1.25) mg/dL Microbiology - Last 24 Hours (Table) 11/18/17 17:26 Gram Stain - Preliminary Sputum Sputum Culture - Preliminary Betsy albicans Stenotrophomonas maltophilia 11/19/17 16:30 Gram Stain - Preliminary Pleural Fluid Body Fluid Culture - Preliminary 11/19/17 16:30 Acid Fast Bacilli Smear - Final Pleural Fluid Acid Fast Bacilli Culture - Preliminary 11/14/17 08:58 Blood Culture - Final Blood No Growth after 144 hours Assessment and Plan Assessment: Myeloproliferative neoplasm with primary myelofibrosis Bilateral pleural effusion, with very large effusion right more than left Progressive increased shortness of breath related to multifactorial processes including chronic anemia, bilateral pleural effusion, myelodysplastic disorder Congestive heart failure acute on chronic diastolic heart failure Acute renal failure Severe pulmonary hypertension likely multifactorial Thrombocytosis severe anemia and leukocytosis, possible myeloproliferative disorder cannot be excluded Coronary artery disease with history of CABG Noted very high protein in the pleural fluid which is unclear as appearance of fluid is more of a transudate of fluid in addition the LDH in the fluid is very low suggestive of transudate in nature Plan: Status post thoracentesis on the right side procedures side effect alternate them and complication explained to the patient Noted d-dimer elevated status post VQ scan mouth very low probability for PE Status post duplex ultrasound of the lower extremity negative for DVT DD supportive care will repeat another ultrasound on outpatient setting look into reaccumulation of fluid Continue to monitor renal functions closely awaiting further recommendation from oncology department at renal services will follow closely Time with Patient: Greater than 30
--- NOTE | 2017-11-23 16:01 | P.DS ---
Providers Date of admission: 11/12/17 16:04 Attending physician: Leon Franklin Consults: 11/12/17 16:05 Consult Physician Urgent Consulting Provider: Joanne Jeong Consult Reason/Comments: CHF, PNA Do you want consulting provider notified?: Yes 11/13/17 10:00 Consult Physician Urgent Consulting Provider: Dom Joseph Consult Reason/Comments: leucocytytosis,pneumonia Do you want consulting provider notified?: Yes 11/13/17 12:22 Consult Physician Stat Consulting Provider: Armando Miller Consult Reason/Comments: abnormal cbc Do you want consulting provider notified?: Yes 11/17/17 11:32 Consult Physician Stat Consulting Provider: Sam Cruz Consult Reason/Comments: Acute renal failure Do you want consulting provider notified?: Yes 11/18/17 14:48 Consult Physician Urgent Consulting Provider: Bill Menchaca Consult Reason/Comments: shortness of breath Do you want consulting provider notified?: Yes Primary care physician: Leon Franklin Pertinent Studies: This 77-year-old gentleman was admitted to the hospital because of shortness of breath. The patient has been worked up in the outpatient. He has a known coronary artery disease with chronic congestive cardiac failure secondary to diastolic dysfunction. He also has underlying COPD. Patient was noted to be anemic with iron deficiency however the same time significant thrombocytosis and leukocytosis. Patient had been referred to the [facility] Dr. Miller. Outpatient consultation was pending. The patient recently had an upper and lower endoscopy done sometime in August. 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 He did see him there is evidence of chronic esophagitis with intermittent blood loss. Patient's scheduled for endoscopic surgical procedure. The patient is also well known to have a significant peripheral arterial disease with claudication. Patient is an ex-smoker. He is known to have coronary artery disease with previous intervention. Following admission patient was seen by multiple specialists including cardiology and pulmonary. The puddler pile driving tapped his pleural effusion and remote about 1300 mL of fluid which did not show any malignancy. The patient also has been diuresed. He had developed acute renal failure nonoliguric secondary to contrast. This is improved and stabilized. Patient hemoglobin had dropped down to 6.4 and was transfused 1 unit of packed red cell. He had positive stool for guaiac. [place] that the patient has had some intermittent blood loss from lower end esophagus. Overall general condition having improved patient is discharged home. Patient's bone marrow done in the hospital revealed suggestion of myeloproliferative disorder prognosis remains guarded.. His overall prognosis poor in view of multiple organ involvement i.e. COPD coronary artery disease of arterial disease in the myeloproliferative disorder hepatosplenomegaly. He also has chronic kidney disease stage III. The time of discharge condition stabilized patient will continue oxygen at home. Final diagnosis to include 1. Acute on chronic congestive cardiac failure secondary to diastolic dysfunction 2. Myeloproliferative disorder 3. Splenomegaly 4. COPD 5. Pleural effusions 6. Peripheral arterial disease 7. Hypertension. 8. Leukocytosis 9. Thrombocytosis Patient Condition at Discharge: Stable Plan - Discharge Summary Discharge Rx Participant: No New Discharge Prescriptions: New ALPRAZolam [Xanax] 0.5 mg PO HS PRN 30 Days #30 tab PRN Reason: Anxiety Continue Terazosin [Hytrin] 5 mg PO HS Metoprolol Tartrate [Lopressor] 50 mg PO BID Atorvastatin [Lipitor] 40 mg PO HS Enalapril [Vasotec] 5 mg PO DAILY #30 tablet Cilostazol [Pletal] 50 mg PO BID Clopidogrel [Plavix] 75 mg PO HS Ferrous Sulfate [Iron (65 MG Elemental)] 325 mg PO DAILY Spironolactone [Aldactone] 25 mg PO DAILY Pantoprazole [Protonix] 80 mg PO DAILY Changed Furosemide [Lasix] 40 mg PO BID #0 Discontinued Aspirin EC [Ecotrin Low Dose] 81 mg PO DAILY Discharge Medication List Atorvastatin [Lipitor] 40 mg PO HS 09/27/14 [History] Metoprolol Tartrate [Lopressor] 50 mg PO BID 09/27/14 [History] Terazosin [Hytrin] 5 mg PO HS 09/27/14 [History] Enalapril [Vasotec] 5 mg PO DAILY #30 tablet 10/12/14 [Rx] Cilostazol [Pletal] 50 mg PO BID 01/01/17 [History] Clopidogrel [Plavix] 75 mg PO HS 01/01/17 [History] Ferrous Sulfate [Iron (65 MG Elemental)] 325 mg PO DAILY 10/05/17 [History] Pantoprazole [Protonix] 80 mg PO DAILY 11/12/17 [History] Spironolactone [Aldactone] 25 mg PO DAILY 11/12/17 [History] ALPRAZolam [Xanax] 0.5 mg PO HS PRN 30 Days #30 tab 11/21/17 [Rx] Furosemide [Lasix] 40 mg PO BID #0 11/21/17 [Rx] Follow up Appointment(s)/Referral(s): Leon Franklin MD [Primary Care Provider] - 11/25/17 3:00 pm (Saturday) Tiffany Pelayo MD [STAFF PHYSICIAN] - 11/29/17 9:30 am (Saturday) Bill Menchaca MD [STAFF PHYSICIAN] - 2 Weeks (Office is closed. Please call to make appointment.) Patient Instructions/Handouts: Heart Failure (DC) Activity/Diet/Wound Care/Special Instructions: [facility] [phone] Discharge Disposition: HOME WITH HOME HEALTH SERVICES
== END 2017-11-21 15:27 | disposition home health service (06) | DRG 291 ==
LOC: EC 13:19 → 6SEL 16:04
PROVIDERS: ADMIT Internal Medicine; ATTEND Internal Medicine
PROC: 07DR3ZX Extraction of Iliac Bone Marrow, Percutaneous Approach, Diagnostic (ICD-10-PCS; 2017-11-15)
PROC: 0W993ZX Drainage of Right Pleural Cavity, Percutaneous Approach, Diagnostic (ICD-10-PCS; principal; 2017-11-19)
DX: I13.0 Hypertensive heart and chronic kidney disease with heart failure and stage 1 through stage 4 chronic kidney disease, or unspecified chronic kidney disease (principal); I50.33 Acute on chronic diastolic (congestive) heart failure; N17.0 Acute kidney failure with tubular necrosis; I95.9 Hypotension, unspecified; J90 Pleural effusion, not elsewhere classified; E87.1 Hypo-osmolality and hyponatremia; C94.6 Myelodysplastic disease, not elsewhere classified; K92.2 Gastrointestinal hemorrhage, unspecified; D75.81 Myelofibrosis; I27.20 Pulmonary hypertension, unspecified; D47.3 Essential (hemorrhagic) thrombocythemia; R18.8 Other ascites; J98.11 Atelectasis; I08.1 Rheumatic disorders of both mitral and tricuspid valves; D50.0 Iron deficiency anemia secondary to blood loss (chronic); D53.9 Nutritional anemia, unspecified; E78.5 Hyperlipidemia, unspecified; I25.10 Atherosclerotic heart disease of native coronary artery without angina pectoris; R09.02 Hypoxemia; N40.0 Benign prostatic hyperplasia without lower urinary tract symptoms; M19.90 Unspecified osteoarthritis, unspecified site; K44.9 Diaphragmatic hernia without obstruction or gangrene; K20.9 Esophagitis, unspecified; I73.9 Peripheral vascular disease, unspecified; I44.5 Left posterior fascicular block; I70.0 Atherosclerosis of aorta; R19.7 Diarrhea, unspecified; M62.50 Muscle wasting and atrophy, not elsewhere classified, unspecified site; R16.1 Splenomegaly, not elsewhere classified; N18.3 Chronic kidney disease, stage 3 (moderate); K76.0 Fatty (change of) liver, not elsewhere classified; T50.2X5A Adverse effect of carbonic-anhydrase inhibitors, benzothiadiazides and other diuretics, initial encounter; T50.8X5A Adverse effect of diagnostic agents, initial encounter; T36.8X5A Adverse effect of other systemic antibiotics, initial encounter; Z77.090 Contact with and (suspected) exposure to asbestos; Z79.82 Long term (current) use of aspirin; Z79.899 Other long term (current) drug therapy; Z79.02 Long term (current) use of antithrombotics/antiplatelets; Z95.1 Presence of aortocoronary bypass graft; Z87.891 Personal history of nicotine dependence; Z82.49 Family history of ischemic heart disease and other diseases of the circulatory system; Y92.239 Unspecified place in hospital as the place of occurrence of the external cause
CPT/HCPCS: 36415; 71045; 71046; 71260; 74177; 76604; 78582; 80048; 80053; 80202; 81001; 81003; 82150; 82272; 82550; 82553; 82728; 82945; 82977; 83540; 83550; 83605; 83615; 83735; 83880; 83935; 84133; 84155; 84157; 84300; 84484; 85025; 85027; 85379; 85610; 85730; 86850; 86900; 86901; 86920; 87040; 87070; 87075; 87077; 87086; 87102; 87116; 87186; 87205; 87206; 88108; 88305; 89050; 93005; 93306; 93970; 94640; 94760; 96365; 96375; 99291

== ENCOUNTER → 2018-03-05 | Outpatient (CLI) | payer MEDICARE ==
[2018-03-05 10:31] LABS: Appearance,Urine Clear (Clear); Bilirubin,Urine Negative (Negative); Blood,Urine Negative (Negative); Color,Urine Light Yellow; Glucose,Urine (UA) Negative (Negative); Ketones,Urine Negative (Negative); Leukocyte Esterase,Urine Negative (Negative); Nitrite,Urine Negative (Negative); Protein,Urine Negative (Negative); Specific Gravity,Urine 1.007 (1.001-1.035); Urobilinogen,Urine <2.0 mg/dL (<2.0)
[2018-03-05 10:49] LABS: INR 1.3 (<1.2); Partial Thromboplastin Time 24.5 sec (22.0-30.0); Prothrombin Time 12.1 sec (9.0-12.0)
[2018-03-05 10:52] LABS: Anion Gap 12 mmol/L; Blood Urea Nitrogen 23 mg/dL (9-20); Carbon Dioxide 24 mmol/L (22-30); Chloride 97 mmol/L (98-107); Potassium 4.5 mmol/L (3.5-5.1); Sodium 133 mmol/L (137-145)
[2018-03-05 11:51] LABS: Anisocytosis Marked; HCT 23.9 % (39.0-53.0); HGB 7.8 gm/dL (13.0-17.5); Hypochromasia Slight; MCH 27.7 pg (25.0-35.0); MCHC 32.6 g/dL (31.0-37.0); Macrocytosis Slight; Mean Platelet Volume 8.9; Microcytosis Moderate; Platelet Count 277 k/uL (150-450); Poikilocytosis Slight; RBC 2.82 m/uL (4.30-5.90); RDW 26.6 % (11.5-15.5)
[2018-03-05 12:08] LABS: Band Neutrophils % 6 %; Eosinophils # (M) 0.26 k/uL (0-0.7); Lymphocytes # (M) 1.69 k/uL (1.0-4.8); Metamyelocytes # (M) 1.04 k/uL (0); Metamyelocytes % 8 %; Monocytes # (M) 0.65 k/uL (0-1.0); Myelocytes # (M) 0.65 k/uL (0); Myelocytes % 5 %; Neutrophils % (M) 63 %; Nucleated Red Blood Cells 0 /100 WBC (0-0); Ovalocytes Present; Total Cells Counted 200
[2018-03-05 12:09] LABS: Polychromasia Present; RBC Fragments Present
== END ==
LOC: LABPAT 03-04 15:41
PROVIDERS: ATTEND Surgery
DX: Z01.812 Encounter for preprocedural laboratory examination (principal); I74.3 Embolism and thrombosis of arteries of the lower extremities; Z79.01 Long term (current) use of anticoagulants
CPT/HCPCS: 36415; 80051; 81003; 82565; 84520; 85025; 85610; 85730

== ENCOUNTER 2018-03-07 06:11 | Inpatient (IN) | payer MEDICARE ==
[2018-03-05 13:19] VITALS: BMI 25.3
[~2018-03-07 06:11] MED LIST: DEXAMETHASONE SOD PHOSPHATE 10 MG/ML 1 ML VIAL IV ONE; LIDOCAINE 1% 20 ML VIAL (10MG/ML) FOR IV START INTRADERMA PRN; MIDAZOLAM 2 MG/2 ML VIAL IV PRN; ONDANSETRON ODT 4 MG TAB PO ONE; Pre Op ABX Message 1 EACH MISC MISCELLANE ONE; SCOPOLAMINE 1.5MG/72HR PATCH TRANSDERM ONE
[2018-03-07] MEDS: LACTATED RINGERS 1,000 ML IV SCH ×2 (07:02→18:05)
--- NOTE | 2018-03-07 07:27 | P.GSHP ---
History of Present Illness H&P Date: 03/07/18 Chief Complaint: Right lower extremity pain Is a 78-year-old gentleman who has been complaining of bilateral lower extremity claudication-type symptoms and recently with developed ischemia of his right foot and toes. He underwent angiogram by Dr. Mcfadden which demonstrated severe right common femoral artery atherosclerotic disease with occlusion of his femoral artery. He presented to my office for evaluation for surgical repair of his common femoral artery. He states he is in severe pain and describes rest pain as well. He denies any fevers chills, nausea vomiting, chest pain or shortness of breath. He presents today for right common femoral artery endarterectomy and patch angioplasty. - Constitutional Constitutional: Denies anorexia, Denies chills, Denies fever - EENT Eyes: denies as per HPI Ears, nose, mouth and throat: Denies dysphagia, Denies hoarseness - Cardiovascular Cardiovascular: Reports decreased exercise tolerance, Reports leg edema, Denies chest pain - Respiratory Respiratory: Denies congestion, Denies cough, Denies home oxygen, Denies pain - Gastrointestinal Gastrointestinal: Denies abdominal pain, Denies constipation, Denies melena - Musculoskeletal Musculoskeletal: Reports leg numbness/tingling, Reports limitation of motion, Reports muscle weakness - Integumentary Integumentary: Reports foot/leg ulcers - Neurological Neurological: Reports numbness, Reports weakness, Denies aphasia, Denies ataxia , Denies confusion, Denies paralysis - Psychiatric Psychiatric: Denies depression - Hematologic/Lymphatic Hematologic/Lymphatic: Denies easy bleeding, Denies easy bruising, Denies lymphadenopathy Past Medical History Past Medical History: Coronary Artery Disease (CAD), Hyperlipidemia, Hypertension, Prostate Disorder Additional Past Medical History / Comment(s): PAD, hx of anemia, hx of pleural effusion, History of Any Multi-Drug Resistant Organisms: Acinetobacter (MDRO) Date of last positivie culture/infection: 11/18/17 MDRO Source:: MDRO ACINETOBACTER SPUTUM Past Surgical History: Coronary Bypass/CABG, Heart Catheterization, Hernia Repair Additional Past Surgical History / Comment(s): [employer]IAN [employer] RT SFA, PEPE INGUIANL HERNIA, umbilical hernia Past Anesthesia/Blood Transfusion Reactions: No Reported Reaction Smoking Status: Former smoker - Past Family History Brother(s) Family Medical History: Cancer Additional Family Medical History / Comment(s): 2 with lung and 1 with prostate Mother Family Medical History: Myocardial Infarction ([place]) Father Additional Family Medical History / Comment(s): AT AGE 83 FROM "HARDENING OF THE ARTERIES" Medications and Allergies Home Medications Medication Instructions Recorded Confirmed Type Atorvastatin [Lipitor] 40 mg PO HS 09/27/14 03/07/18 History Metoprolol Tartrate [Lopressor] 50 mg PO BID 09/27/14 03/05/18 History Terazosin [Hytrin] 5 mg PO HS 09/27/14 03/07/18 History Enalapril [Vasotec] 5 mg PO DAILY #30 tablet 10/12/14 03/05/18 Rx Pantoprazole [Protonix] 40 mg PO BID 11/12/17 03/05/18 History Spironolactone [Aldactone] 25 mg PO DAILY 11/12/17 03/07/18 History Furosemide [Lasix] 40 mg PO BID #0 11/21/17 03/07/18 Rx Ruxolitinib Phosphate [Jakafi] 25 mg PO BID 02/07/18 03/07/18 History oxyCODONE HCL/ACETAMINOPHEN 1 tab PO Q6HR PRN 03/05/18 03/07/18 History [Endocet 5-325 mg] Allergies Allergy/AdvReac Type Severity Reaction Status Date / Time No Known Allergies Allergy Verified 02/07/18 13:01 Surgical - Exam Vital Signs Temp Pulse Resp BP Pulse Ox 98.2 F 67 16 125/52 98 03/07/18 07:00 03/07/18 07:00 03/07/18 07:00 03/07/18 07:00 03/07/18 07:00 Nonpalpable right popliteal, DP or PT pulses. There is diminished right femoral pulse when compared to the left. Palpable left femoral pulse. Right fourth toe with ischemic changes with dependent rubor of the foot. Ischemic changes noted on the right plantar surface of the foot. - General well developed, well nourished, no distress - Eyes PERRL, normal ocular movement - ENT normal pinna, normal nares, normal mucosa, no hearing loss, no congestion - Neck no masses - Respiratory normal expansion, clear to auscultation - Cardiovascular Rhythm: regular - Abdomen Abdomen: soft, non tender - Integumentary no rash, no growths Results Angiogram demonstrates severe stenosis of the right common femoral artery as well as superficial femoral artery. There is some iliac stenosis noted. Assessment and Plan Assessment: Right lower extremity critical limb ischemia with common femoral artery severe occlusive disease. Plan: To the OR for right common femoral artery endarterectomy and patch angioplasty. He will then undergo endovascular intervention for his superficial femoral artery by Dr. Mcfadden. Time with Patient: Greater than 30
[2018-03-07] MEDS ORDERED: THROMBIN (BOVINE) 5,000 UNIT VIAL MISCELLANE ONE (07:49)
[2018-03-07] MEDS ORDERED: GELATIN SPONGE,ABSORB (LARGE) 1 EACH SPONGE MISCELLANE ONE (07:50)
[2018-03-07] MEDS ORDERED: PROTAMINE SULFATE 10 MG/ML 5 ML VIAL IV ONE (07:51)
[2018-03-07] MEDS ORDERED: MIDAZOLAM 2 MG/2 ML VIAL ONE (07:51)
[2018-03-07] MEDS ORDERED: LIDOCAINE 1% INJ 10MG/ML (20 ML MDV) ONE (07:51)
[2018-03-07] MEDS ORDERED: ROCURONIUM BROMIDE 10 MG/ML 10 ML VIAL IV ONE (07:51)
[2018-03-07] MEDS ORDERED: GLYCOPYRROLATE 0.2 MG/ML 2 ML VIAL ONE (07:51)
[2018-03-07] MEDS ORDERED: SODIUM CHLORIDE 0.9% 50 ML with ceFAZolin 2,000 MG IV ONE ×2 (07:51)
[2018-03-07] MEDS ORDERED: PROPOFOL 10 MG/ML 20 ML VIAL IV ONE (07:51)
[2018-03-07] MEDS ORDERED: SUCCINYLCHOLINE CHLORIDE 100 MG/5 ML SYR IV ONE (07:51)
[2018-03-07] MEDS ORDERED: fentaNYL (PF) 50 MCG/ML 2 ML AMP ONE (07:51)
[2018-03-07] MEDS ORDERED: NEOSTIGMINE 1 MG/ML 10 ML VIAL ONE (07:51)
[2018-03-07] MEDS ORDERED: HEPARIN SODIUM,PORCINE 10,000 UNIT in SODIUM CHLORIDE 0.9% 1,000 ML IRRIGATION ONE (08:21)
--- NOTE | 2018-03-07 12:58 | P.OP ---
Date of Procedure: 03/07/18 Preoperative Diagnosis: Right lower extremity critical limb ischemia with right common femoral artery occlusive disease. Postoperative Diagnosis: Same Procedure(s) Performed: Right common femoral artery endarterectomy with patch angioplasty Implants: Bovine pericardial patch Anesthesia: SAWYER Surgeon: James Cline Estimated Blood Loss (ml): 50 Pathology: other (Femoral plaque) Condition: stable Disposition: floor Indications for Procedure: Is a 78-year-old gentleman who presented to the office secondary to right lower extremity ischemic toes and wounds. He has been seen previously and underwent an angiogram which demonstrated right common femoral artery occlusion with severe SFA disease. He presents today for right common femoral artery endarterectomy. Operative Findings: Dense calcification and plaque extending from the superficial femoral artery to the external iliac artery with profundus involvement. Description of Procedure: After written informed consent was obtained the patient all risks benefits competitions were described the patient is brought to the operative suite and laid in a supine position the area of the groins and right lower extremity were prepped and draped in usual sterile fashion after appropriate anesthetic was performed per the anesthesiologist. A timeout was performed in normal fashion antibiotics were administered prior to incision. An oblique incision was then created at the right groin overlying the common femoral artery and dissection was carried down to the femoral vessels. The common femoral, profunda and superficial femoral artery were all dissected free in a circumferential manner and controlled with vessel loops. Circumflex vessel was also controlled. Once controlled patient was administered heparin 5000 units. Clamps were then placed and utilizing 11 blade scalpel and arteriotomy was created. This was extended with Pott Lutz scissors from the superficial femoral artery takeoff to the external iliac artery. There was dense calcification noted throughout. Endarterectomy was then performed in normal fashion and all free debris was removed. Patch angioplasty was then performed after visualization of good backbleeding from the superficial femoral and profundus arteries. A bovine pericardial patch was then placed with 6-0 Prolene suture for the anastomosis. Once completed backbleeding was released and forward flushing was performed to remove any free debris prior to the last sutures being placed. Once completed all vessels were released demonstrating good palpable pulse within the femoral vessel. The area was copiously irrigated with antibiotic solution. Hemostasis was assisted with Gelfoam and thrombin and protamine. A 15-Polish OZZIE drain was then placed and the incision was then closed in a multilayer fashion skin was then cleansed and dressings were placed with a Prevena VAC. Patient tolerated procedure well and had multiphasic signals at the DP and PT.
[2018-03-07] MEDS ORDERED: diphenhydrAMINE 50 MG/ML 1 ML VIAL IVP ONE (13:34)
[2018-03-07] MEDS: HYDROcodone/APAP 5-325MG 1 EACH TAB PO PRN (15:39)
[2018-03-07] MEDS: SODIUM CHLORIDE 0.9% 1,000 ML IV SCH (15:50)
[2018-03-07] MEDS: FUROSEMIDE 40 MG TAB PO SCH (18:05)
[2018-03-07] MEDS: PANTOPRAZOLE 40 MG TABLET PO SCH (18:06)
[2018-03-07] MEDS: MORPHINE SULFATE 4 MG/ML SYRINGE IVP PRN ×2 (18:16→22:15)
[2018-03-07] MEDS: ATORVASTATIN 40 MG TAB PO SCH (20:08)
[2018-03-07] MEDS: DOXAZOSIN 4 MG TAB PO SCH (20:09)
[2018-03-07] MEDS: METOPROLOL TARTRATE 50 MG TAB PO SCH (20:09)
[2018-03-07] MEDS ORDERED: RUXOLITINIB PHOSPHATE PO SCH (21:00)
[2018-03-08] MEDS: MORPHINE SULFATE 4 MG/ML SYRINGE IVP PRN ×2 (02:50→22:45)
[2018-03-08] MEDS: SODIUM CHLORIDE 0.9% 1,000 ML IV SCH (03:48)
[2018-03-08] MEDS: PANTOPRAZOLE 40 MG TABLET PO SCH ×2 (06:02→16:46)
[2018-03-08] MEDS: HYDROcodone/APAP 5-325MG 1 EACH TAB PO PRN ×3 (07:54→20:15)
[2018-03-08] MEDS: FUROSEMIDE 40 MG TAB PO SCH ×2 (08:45→16:47)
[2018-03-08] MEDS: DOCUSATE 100 MG CAP PO SCH (08:45)
[2018-03-08] MEDS: METOPROLOL TARTRATE 50 MG TAB PO SCH ×2 (08:46→20:04)
[2018-03-08] MEDS: SPIRONOLACTONE 25 MG TAB PO SCH (08:46)
[2018-03-08] MEDS: LISINOPRIL 10 MG TAB PO SCH (08:46)
[2018-03-08] MEDS ORDERED: ASPIRIN 325 MG TAB PO SCH (09:00)
[2018-03-08] MEDS: JAKAFI 20 MG PO SCH ×2 (10:16→20:03)
--- NOTE | 2018-03-08 10:31 | P.PN ---
Subjective Progress Note Date: 03/08/18 Principal diagnosis: PAD This 78-year-old gentleman was admitted to the hospital and undergone revascularization right leg for a ischemic rest pain right foot. Also small ulcerated callus nonhealing but no evidence of infection there. The ulceration is very superficial. Patient's morning is doing fairly well denies any symptoms except for pain in the right foot and not having adequate bowel movement for 3 days. He has had no fever or chills. Patient on telemetry is noted to be in atrial flutter with controlled rate. Patient condition otherwise has remained stable. His been afebrile REVIEW OF SYSTEMS: Neuro: Denies any headaches dizziness. Psych: Denies anxiety depression feels oriented. Cardiac: Denies chest pain and angina palpitations. Respiratory: Denies shortness of breath cough. GI: Denies any nausea vomiting or abdominal pain no bowel movement daily 3 : Denies dysuria hematuria for the catheter discontinued this morning Extremities: Pain right foot Skin: Intact. Constitutional: No fever, chills. Objective - Vital Signs Vital signs: Vital Signs Temp 98.0 F 03/08/18 07:50 Pulse 70 03/08/18 07:50 Resp 18 03/08/18 07:50 BP 113/54 03/08/18 07:50 Pulse Ox 95 03/08/18 07:50 Intake & Output 03/07/18 03/08/18 03/08/18 18:59 06:59 18:59 Intake Total 1386 1280 120 Output Total 1390 1910 850 Balance -4 -630 -730 Weight 79 kg Intake: IV 1026 Intake, IV Titration 1280 Amount Sodium Chloride 0.9% 1, 1280 000 ml @ 80 mls/hr IV . [id number] [facility] Rx#:[id number] Oral 360 120 Output: Drainage 40 10 Right 10 Right Groin 40 Urine 1300 1900 850 Estimated Blood Loss 50 Other: Voiding Method Indwelling Catheter Indwelling Catheter # Voids 1 PHYSICAL EXAMINATION: Cooperative, at present in no acute distress. HEENT: Neck supple. No JVD. Chest: With mild generalized decreased airflow Cardiac: Normal S1-S2 no gallops systolic murmur 2 x 6 left sternal border. Abdomen: Soft bowel sounds present. Extremities: No edema mildly tender right foot no pedal pulses feet are warm Neurologically: Awake, alert, oriented with well-coordinated movements. Skin: Right foot lateral aspect small callus with superficial ulceration no infection Assessment and Plan Assessment: ASSESSMENT: 1. [Atrial flutter new-onset asymptomatic, rate controlled]. 2. [Known coronary artery disease stable]. 3. [Peripheral arterial disease status post revascularization]. 4. [COPD]. 5. [Myelodysplastic syndrome]. 6. [Gastroesophageal reflux]. 7. [Ulcerated callus right foot]. PLAN: [Continue present medical regimen patient's condition discussed with the patient cardiology to see the patient regarding atrial flutter prognosis guarded patient may require long-term anticoagulation will leave this up to the stock roller].
[2018-03-08] MEDS ORDERED: BISACODYL 10 MG SUPP RECTAL STA (10:33)
--- NOTE | 2018-03-08 10:48 | PN ---
PROGRESS NOTE This is a 79-year-old gentleman who had a right common femoral endarterectomy by Dr. Cline. The patient vital signs stable. The patient has a drain which has minimal drainage. Incision site is good. The foot is warm and pulses are present. PLAN: The patient is stable medically. He can go home and follow Dr. Cline in 1 week for follow up. Thank you very much. MMODL / IJN: [id number] /
--- NOTE | 2018-03-08 11:00 | CONS ---
CONSULTATION DATE OF SERVICE: 03/07/2018. CHIEF COMPLAINT: Postop management. HISTORY OF PRESENT ILLNESS: This is a 78-year-old gentleman, well known to me on the outpatient. The patient is known to have coronary artery disease, peripheral arterial disease, congestive cardiac failure and myelodysplastic syndrome. The patient has been followed by Dr. Miller in the outpatient, Dr. Germán Pelayo from the Cardiology. The patient recently has been treated for congestive cardiac failure because of both diastolic dysfunction as well as anemia. His symptoms are well compensated. The patient has significant peripheral arterial disease with previous intervention of the left femoral artery. The patient at present due to worsening symptoms and ischemic rest pain of the right foot. Patient has undergone this surgical procedure. PAST MEDICAL HISTORY: As mentioned above, history of coronary artery disease, chronic congestive cardiac failure secondary to diastolic dysfunction, myelodysplastic syndrome, COPD, degenerative arthritis, peripheral arterial disease, hyperlipidemia. Patient has a history of gastroesophageal reflux. There was significant dysplasia noted in the EGD, is recommended to have surgical intervention. However, due to his other ailments, he has not been able to get through that yet. This was recommended back in September 2017. PAST SURGICAL HISTORY: Revascularization left leg, stenting. PERSONAL HISTORY: Smoker is suspected. Smoked a pack a day for more than 40 years. Alcohol, none at present. History of drinking in the past. FAMILY MEDICAL HISTORY: One daughter adopted. SOCIAL HISTORY: Patient lives with his spouse, spouse has some chronic ailments as well. REVIEW OF SYSTEMS: NEURO: Denies any headaches, dizziness. PSYCH: No anxiety. CARDIAC: No chest pain, angina, palpitation. RESPIRATORY: Denies shortness of breath, cough. GI: Denies any nausea, vomiting, abdominal pain, diarrhea. No bowel movement. : No symptoms of dysuria, hematuria. EXTREMITIES: Pain in the right foot. HEMATOLOGIC: Anemia, thrombocytosis. SKIN: No rashes. CONSTITUTIONAL: No fever, chills. Stable weight now. He had lost weight initially. PHYSICAL EXAMINATION: Pleasant gentleman present, in no distress. Vital signs reveal temperature 97.3, pulse 88, respirations 16, blood pressure 140/61, pulse ox 95% on room air. HEENT: Normocephalic. NECK: No JVD. Pupils are reactive. Oral cavity dry. Ears reveal no drainage. Neck reveals decreased range of motion. No supraclavicular lymphadenopathy. No thyromegaly. Chest examination, generalized decreased air flow, increased percussion noted bilaterally. Cardiac distant heart sounds S1, S2 with no gallop. Systolic murmur 2/6 left sternal border. ABDOMEN: Soft. Bowel sounds present. No organomegaly. No abdominal bruits. Extremities reveal no edema. Good pulses upper extremities. Decreased pedal pulses. I do not feel pulses in the feet. Possible right posterior tibial might be palpable. Neurologically awake, alert, oriented x3 with well-coordinated movements. Patient has a drain in the right groin. Patient has Leggett catheter in place. LABORATORY ASSESSMENT: Sodium 133, BUN 23, glucose random 114, iron 54. ASSESSMENT: 1. ASHD, stable. 2. Peripheral arterial disease. 3. Hypertension. 4. Chronic obstructive pulmonary disease. 5. Mild dysplastic syndrome. PLAN: Patient at present is stable, continue present medical regimen. Patient medications have been resumed. Should be able to discontinue IV fluids tomorrow along with IDC. Patient's condition discussed with the patient, prognosis guarded. MMODL / IJN: [id number] /
[2018-03-08] MEDS: CLOPIDOGREL 75 MG TAB PO SCH (11:35)
--- NOTE | 2018-03-08 12:39 | PN ---
PROGRESS NOTE Patient underwent surgery for PID. Patient had a femoral artery atherectomy and patch angioplasty. He is doing well. Patient went into atrial flutter this morning. His rate is controlled. Patient is not symptomatic denies any shortness of breath. Patient is status post coronary artery bypass surgery. Blood pressure is 113/54 mmHg, heart rate is 70 per minute. First and second heart sounds are normal. Lungs are clinically clear to auscultation and percussion. Abdomen is soft. Patient's echocardiogram was repeated which again shows severe pulmonary hypertension and tricuspid regurgitation. Patient is on Aldactone and Lasix. WE will start the patient on Xarelto 15 mg daily and Plavix 75 mg daily. Patient is not symptomatic from his pulmonary hypertension. MMODL / IJN: [id number] /
--- NOTE | 2018-03-08 13:40 | ECHOF ---
Referral Reason:A-flutter MEASUREMENTS -------- HEIGHT: 170.2 cm WEIGHT: 78.9 kg BP: RVIDd: 4.2 cm (< 3.3) IVSd: 1.0 cm (0.6 - 1.1) LVIDd: 4.5 cm (3.9 - 5.3) LVPWd: 0.9 cm (0.6 - 1.1) IVSs: 1.6 cm LVIDs: 3.6 cm LVPWs: 0.9 cm LAESV Index (A-L): 48.75 ml/m Ao Diam: 3.5 cm (2.0 - 3.7) AV Cusp: 2.1 cm (1.5 - 2.6) LA Diam: 4.8 cm (2.7 - 3.8) MV EXCURSION: 16.659 mm (> 18.000) MV EF SLOPE: 96 mm/s (70 - 150) EPSS: 1.0 cm MV E Neville: 1.16 m/s MV DecT: 228 ms MV A Neville: 0.58 m/s MV E/A Ratio: 2.00 AR PHT: 211 ms RAP: 5.00 mmHg RVSP: 80.79 mmHg FINDINGS -------- The rhythm appears to be atrial flutter. This was a technically good study. The left ventricular size is normal. Left ventricular wall thickness is normal. Overall left vent ricular systolic function is low-normal with, an EF between 50 - 55 %. There is paradoxical/dysyner gic septal motion consistent with right ventricular volume overload and/or elevated right ventricular end-diastolic pressure. The right ventricle is severely enlarged. LA is severely dilated >40 ml/m2 The right atrium is normal in size. Aortic valve is trileaflet and is mildly thickened. Trace amount of aortic regurgitation. The mitral valve leaflets are mildly thickened. Mild mitral regurgitation is present. Severe tricuspid regurgitation present. There is severe pulmonary hypertension. The right ventric ular systolic pressure, as measured by Doppler, is 80.79mmHg. Trace/mild (physiologic) pulmonic regurgitation. The aortic root size is normal. Normal inferior vena cava with normal inspiratory collapse consistent with estimated right atrial pre ssure of 5 mmHg. The pericardium is normal. CONCLUSIONS -------- 1. The rhythm appears to be atrial flutter. 2. This was a technically good study. 3. The left ventricular size is normal. 4. Left ventricular wall thickness is normal. 5. Overall left ventricular systolic function is low-normal with, an EF between 50 - 55 %. 6. There is paradoxical/dysynergic septal motion consistent with right ventricular volume overload an d/or elevated right ventricular end-diastolic pressure. 7. The right ventricle is severely enlarged. 8. LA is severely dilated >40 ml/m2 9. The right atrium is normal in size. 10. Aortic valve is trileaflet and is mildly thickened. 11. Trace amount of aortic regurgitation. 12. The mitral valve leaflets are mildly thickened. 13. Mild mitral regurgitation is present. 14. Severe tricuspid regurgitation present. 15. There is severe pulmonary hypertension. 16. The right ventricular systolic pressure, as measured by Doppler, is 80.79mmHg. 17. Trace/mild (physiologic) pulmonic regurgitation. 18. The aortic root size is normal. 19. Normal inferior vena cava with normal inspiratory collapse consistent with estimated right atrial pressure of 5 mmHg. 20. The pericardium is normal. REINFORCER: Renetta Tejada, VERO
[2018-03-08] MEDS ORDERED: RIVAROXABAN 15 MG TAB PO SCH (17:30)
[2018-03-08] MEDS: LACTATED RINGERS 1,000 ML IV SCH (17:53)
[2018-03-08] MEDS: ATORVASTATIN 40 MG TAB PO SCH (20:03)
[2018-03-08] MEDS: DOXAZOSIN 4 MG TAB PO SCH (20:04)
[2018-03-09] MEDS: PANTOPRAZOLE 40 MG TABLET PO SCH (06:02)
[2018-03-09 08:03] VITALS: RESP 18
[2018-03-09] MEDS: HYDROcodone/APAP 5-325MG 1 EACH TAB PO PRN ×3 (08:04→16:15)
[2018-03-09] MEDS: JAKAFI 20 MG PO SCH (09:59)
[2018-03-09] MEDS: FUROSEMIDE 40 MG TAB PO SCH (09:59)
[2018-03-09] MEDS: CLOPIDOGREL 75 MG TAB PO SCH (09:59)
[2018-03-09] MEDS: METOPROLOL TARTRATE 50 MG TAB PO SCH (09:59)
[2018-03-09] MEDS: LISINOPRIL 10 MG TAB PO SCH (10:00)
[2018-03-09] MEDS: DOCUSATE 100 MG CAP PO SCH (10:00)
[2018-03-09] MEDS: SPIRONOLACTONE 25 MG TAB PO SCH (10:00)
[2018-03-09 14:07] VITALS: BP 125/58; PULSE 69; TEMP 96.7
== END 2018-03-09 17:53 | disposition home or self-care (01) | DRG 253 ==
LOC: 2ORMAIN 06:11 → 6SEL 14:53
PROVIDERS: ADMIT Surgery; ATTEND Surgery
PROC: 04UK0KZ Supplement Right Femoral Artery with Nonautologous Tissue Substitute, Open Approach (ICD-10-PCS; 2018-03-07)
PROC: 04CK0ZZ Extirpation of Matter from Right Femoral Artery, Open Approach (ICD-10-PCS; principal; 2018-03-07 08:00)
DX: I70.201 Unspecified atherosclerosis of native arteries of extremities, right leg (principal); I50.30 Unspecified diastolic (congestive) heart failure; I48.92 Unspecified atrial flutter; I99.8 Other disorder of circulatory system; I25.10 Atherosclerotic heart disease of native coronary artery without angina pectoris; E78.5 Hyperlipidemia, unspecified; I11.0 Hypertensive heart disease with heart failure; N42.9 Disorder of prostate, unspecified; D46.9 Myelodysplastic syndrome, unspecified; J44.9 Chronic obstructive pulmonary disease, unspecified; K21.9 Gastro-esophageal reflux disease without esophagitis; L84 Corns and callosities; I07.1 Rheumatic tricuspid insufficiency; I27.20 Pulmonary hypertension, unspecified; Z79.899 Other long term (current) drug therapy; Z80.1 Family history of malignant neoplasm of trachea, bronchus and lung; Z95.1 Presence of aortocoronary bypass graft; Z87.19 Personal history of other diseases of the digestive system; Z80.42 Family history of malignant neoplasm of prostate; Z87.891 Personal history of nicotine dependence; Z82.49 Family history of ischemic heart disease and other diseases of the circulatory system; Z79.891 Long term (current) use of opiate analgesic
CPT/HCPCS: 36415; 80051; 81003; 82565; 84520; 85025; 85610; 85730; 86850; 86900; 86901; 88304; 88311; 93306

== ENCOUNTER 2018-04-01 10:00 | Inpatient (IN) | payer MEDICARE ==
[~2018-04-01 10:00] MED LIST changes: -DEXAMETHASONE SOD PHOSPHATE 10 MG/ML 1 ML VIAL IV ONE; +IV FLUID CONTINUATION 650 ML IV ONE; -LIDOCAINE 1% 20 ML VIAL (10MG/ML) FOR IV START INTRADERMA PRN; -MIDAZOLAM 2 MG/2 ML VIAL IV PRN; -ONDANSETRON ODT 4 MG TAB PO ONE; -Pre Op ABX Message 1 EACH MISC MISCELLANE ONE; -SCOPOLAMINE 1.5MG/72HR PATCH TRANSDERM ONE
[2018-04-01] MEDS ORDERED: SODIUM CHLORIDE 0.9% 1,000 ML IV ONE ×2 (11:15→17:30)
[2018-04-01] MEDS ORDERED: MIDAZOLAM 2 MG/2 ML VIAL IV ONE (11:44)
[2018-04-01] MEDS ORDERED: HEPARIN SODIUM 1,000 UN/ML (10ML VL) IV ONE (12:00)
[2018-04-01 12:19] LABS: Anisocytosis Marked; MCH 27.7 pg (25.0-35.0); MCHC 31.3 g/dL (31.0-37.0); MCV 88.4 fL (80.0-100.0); Macrocytosis Slight; Mean Platelet Volume 8.1; Microcytosis Slight; Platelet Count 182 k/uL (150-450); Poikilocytosis Slight; RBC 2.01 m/uL (4.30-5.90)
[2018-04-01] MEDS: fentaNYL (PF) 50 MCG/ML 2 ML AMP IV ONE ×4 (12:19→13:50)
[2018-04-01 12:33] LABS: HCT 17.8 % (39.0-53.0); RDW 27.2 % (11.5-15.5)
[2018-04-01 12:34] LABS: HGB 5.6 gm/dL (13.0-17.5)
[2018-04-01 13:35] LABS: Band Neutrophils % 4 %; Basophils # (M) 0.08 k/uL (0-0.2); Blast Cells # (M) 0.08 k/uL (0); Eosinophils # (M) 0.16 k/uL (0-0.7); Lymphocytes # (M) 1.03 k/uL (1.0-4.8); Metamyelocytes # (M) 0.63 k/uL (0); Metamyelocytes % 8 %; Monocytes # (M) 0.63 k/uL (0-1.0); Myelocytes # (M) 0.55 k/uL (0); Myelocytes % 7 %; Neutrophils % (M) 58 %; Nucleated Red Blood Cells 1 /100 WBC (0-0); Promyelocytes # (M) 0.08 k/uL (0); Promyelocytes % 1 %; Total Cells Counted 200; WBC 7.9 k/uL (3.8-10.6)
[2018-04-01 13:38] LABS: Ovalocytes Present; RBC Fragments Present
[2018-04-01 13:39] LABS: Toxic Granulation Present
[2018-04-01] MEDS ORDERED: NITROGLYCERIN 1000MCG/10ML SYRINGE INTRAARTER ONE (13:50)
[2018-04-01] MEDS ORDERED: SODIUM CHLORIDE 0.9% 1,000 ML IV SCH (14:00)
[2018-04-01] MEDS ORDERED: CLOPIDOGREL 75 MG TAB PO ONE (14:01)
[2018-04-01] MEDS ORDERED: IOPAMIDOL-370 100ML BTL INJ ONE (14:02)
[2018-04-01 14:43] LABS: Glucose,Whole Blood 117 mg/dL (75-99)
--- NOTE | 2018-04-01 15:22 | IR ---
Fluoroscopy HISTORY: Pain in right leg 40.2 minutes fluoroscopy time supplied to the referring clinician. 394 intraoperative C-arm images d ocument the procedure. See dictated report from cardiology.
[2018-04-01] MEDS: oxyCODONE-APAP 5-325MG 1 EACH TAB PO PRN ×2 (16:14→22:43)
[2018-04-01] MEDS: PANTOPRAZOLE 40 MG TABLET PO SCH (16:15)
[2018-04-01] MEDS: FUROSEMIDE 40 MG TAB PO SCH (16:15)
[2018-04-01] MEDS ORDERED: ATROPINE SULFATE 0.1 MG/ML 10ML SYRINGE ONE (17:51)
[2018-04-01] MEDS ORDERED: PROTAMINE SULFATE 10 MG/ML 5 ML VIAL IV STA (17:56)
[2018-04-01] MEDS ORDERED: HYDROmorphone 0.5 MG/0.5 ML SYRINGE IVP STA ×2 (17:59→18:12)
[2018-04-01] MEDS: ATORVASTATIN 40 MG TAB PO SCH (20:41)
[2018-04-01] MEDS: JAKAFI PO SCH (20:42)
[2018-04-01] MEDS ORDERED: METOPROLOL TARTRATE 50 MG TAB PO SCH (21:00)
[2018-04-01 21:05] LABS: Anisocytosis Marked; MCH 27.4 pg (25.0-35.0); MCHC 31.4 g/dL (31.0-37.0); MCV 87.3 fL (80.0-100.0); Macrocytosis Slight; Mean Platelet Volume 8.8; Microcytosis Slight; Platelet Count 148 k/uL (150-450); Poikilocytosis Slight; RBC 2.26 m/uL (4.30-5.90); RDW 24.3 % (11.5-15.5)
[2018-04-01 21:08] LABS: HCT 19.7 % (39.0-53.0)
[2018-04-01 21:09] LABS: HGB 6.2 gm/dL (13.0-17.5)
[2018-04-01 21:16] LABS: Calcium 8.1 mg/dL (8.4-10.2); Potassium 4.1 mmol/L (3.5-5.1)
[2018-04-01] MEDS: DOXAZOSIN 4 MG TAB PO SCH (21:57)
[2018-04-01 22:21] LABS: Band Neutrophils % 15 %; Blast Cells # (M) 0.09 k/uL (0); Lymphocytes # (M) 1.02 k/uL (1.0-4.8); Metamyelocytes # (M) 0.17 k/uL (0); Metamyelocytes % 2 %; Monocytes # (M) 0.43 k/uL (0-1.0); Myelocytes # (M) 1.36 k/uL (0); Myelocytes % 16 %; Neutrophils % (M) 50 %; Nucleated Red Blood Cells 4 /100 WBC (0-0); Total Cells Counted 200; WBC 8.5 k/uL (3.8-10.6)
[2018-04-01 22:22] LABS: Ovalocytes Present; Polychromasia Present; RBC Fragments Present; Tear Drop Cells Present
--- NOTE | 2018-04-01 23:20 | CT ---
EXAMINATION TYPE: CT abdomen pelvis wo con DATE OF EXAM: 04/01/2018 COMPARISON: NONE HISTORY: R/O bleed CT DLP: 1068.2 mGycm Automated exposure control for dose reduction was used. TECHNIQUE: Helical acquisition of images was performed from the lung bases through the pelvis. FINDINGS: There is mild to moderate right pleural effusion. Heart is enlarged. There is no pericardial effusion . There is dilute contrast in the renal collecting systems from previous catheterization study. Liver shows no focal defect. Bile ducts are not dilated. Spleen appears slightly enlarged and measure s 14.5 cm. There is no pancreatic mass. Gallbladder appears absent. There is no evidence of a bowel obstruction. There is no sign of free air. There are numerous colonic diverticula. There is extensive abnormal density in the retroperitoneum on the left side extending from the left i nguinal region up to the mid left kidney. This is consistent with acute retroperitoneal hemorrhage. T he kidneys show no hydronephrosis. There is high attenuation in the left perirenal space related to t he retroperitoneal hemorrhage. This extends along the left psoas muscle. There is displacement of the urinary bladder to the right side due to the hemorrhage. There is multicentric fluid accumulation in the right inguinal region that measures up to 4.5 cm consistent with inguinal hematoma. I see no ret roperitoneal hemorrhage on the right side. Abdominal aorta is atheromatous. There is no retroperitoneal adenopathy. There is no ascites. Urinary bladder has thick wall. There is no evidence of a bowel obstruction. The lumbar spine is intact. IMPRESSION: LARGE LEFT-SIDED RETROPERITONEAL HEMORRHAGE PROBABLY DUE TO ACUTE BLEEDING FROM LEFT FEMORAL ARTERY H IGH PUNCTURE WITH EXTENSION OF THE HEMORRHAGE INTO THE LEFT PERIRENAL SPACE. NO EVIDENCE OF RENAL OBSTRUCTION. CARDIOMEGALY AND RIGHT PLEURAL EFFUSION COULD RELATE TO CONGESTIVE HEART FAILURE. MILD SPLENOMEGALY. THICKENED URINARY BLADDER IS CONSISTENT WITH NONSPECIFIC CYSTITIS. COLONIC DIVERTICULOSIS WITHOUT SIGN OF DIVERTICULITIS. ROUNDED RIGHT INGUINAL FLUID COLLECTION CONSISTENT WITH SMALL HEMATOMATA. THIS EXAM WAS DISCUSSED WITH THE PHYSICIAN DR. OLVERA AT 11:15 PM.
--- NOTE | 2018-04-01 23:24 | CT ---
EXAMINATION TYPE: CT lower extremity RT wo con DATE OF EXAM: 04/01/2018 COMPARISON: NONE HISTORY: R/O bleed CT DLP: 1068.2 mGycm Automated exposure control for dose reduction was used. FINDINGS: Multiple axial sections were obtained from the level of the right sacroiliac joint to the bottom of t he foot with no contrast. THERE IS SOME SUBCUTANEOUS EDEMA IN THE RIGHT LOWER LEG AND ANKLE. THERE IS ATHEROSCLEROTIC VASCULAR CALCIFICATION IN THE FEMORAL AND POPLITEAL AND TIBIAL ARTERIES. I SEE NO PATHOLOGIC FLUID COLLECTION IN THE THIGH AND LOWER LEG. THERE IS A RIGHT INGUINAL MULTICENTRIC FLUID COLLECTION AT MEASURES UP TO 4.5 CM. I SEE NO BONY DESTRUCTIVE PROCESS. THE FEMUR AND TIBIA AND FIBULA APPEAR INTACT. IMPRESSION: Multicentric fluid collection in the right inguinal region consistent with hematoma or seroma. Absces s is in the differential diagnosis. Atherosclerotic vascular disease. Mild subcutaneous edema in the lower leg.
--- NOTE | 2018-04-01 23:27 | CT ---
EXAMINATION TYPE: CT lower extremity LT wo con DATE OF EXAM: 04/01/2018 COMPARISON: NONE HISTORY: R/O bleed CT DLP: 1068.2 mGycm Automated exposure control for dose reduction was used. FINDINGS: Multiple axial sections were obtained from the iliac crest to the bottom of the foot with no contrast . There is retroperitoneal density on the left side displacing the urinary bladder to the right side re lated to apparent acute hemorrhage. Femoral popliteal and tibial artery are atheromatous. I see no di screte fluid collection in the thigh and lower leg. I see no bony destructive process. There is mild subcutaneous edema in the lower leg. There is no evidence of a fracture. IMPRESSION: LEFT INGUINAL FAT STRANDING WITH EXTENSION INTO THE PELVIS CONSISTENT WITH ACUTE RETROPERITONEAL HEMO RRHAGE. MASS EFFECT UPON THE URINARY BLADDER. NO EVIDENCE OF HEMORRHAGE WITHIN THE THIGH AND LOWER LE G. ATHEROSCLEROTIC VASCULAR DISEASE.
[2018-04-02] MEDS ORDERED: MIDAZOLAM 2 MG/2 ML VIAL IVP ONE (00:22)
[2018-04-02] MEDS ORDERED: LIDOCAINE 2% INJ 20 MG/ML SQ ONE (00:25)
[2018-04-02] MEDS ORDERED: IOPAMIDOL-250 100ML BTL INTRAARTER ONE ×2 (00:45)
[2018-04-02] MEDS ORDERED: SODIUM CHLORIDE 0.9% 1,000 ML IV SCH (01:00)
[2018-04-02] MEDS ORDERED: fentaNYL (PF) 50 MCG/ML 2 ML AMP IVP ONE (01:01)
[2018-04-02] MEDS: oxyCODONE-APAP 5-325MG 1 EACH TAB PO PRN ×5 (04:55→23:35)
[2018-04-02 06:58] LABS: Anisocytosis Moderate; HCT 22.9 % (39.0-53.0); MCHC 34.1 g/dL (31.0-37.0); Mean Platelet Volume 8.1; Platelet Count 128 k/uL (150-450); Poikilocytosis Slight; RBC 2.61 m/uL (4.30-5.90); RDW 22.4 % (11.5-15.5); WBC 8.3 k/uL (3.8-10.6)
--- NOTE | 2018-04-02 07:07 | LTR ---
April 02, 2018 Re: Jacques Burk. Dear Dr. Franklin: Mr. Jacques Burk underwent successful atherectomy and balloon angioplasty of the right superficial femoral artery as well as right peroneal artery and right tibioperoneal trunk with good angiographic results. I want to thank you for allowing me to participate in his care and please do not hesitate to call if you have any question or concern. Sincerely, MD FRITZ Harley / HAYDE: [id number] /
[2018-04-02 07:11] LABS: HGB 7.8 gm/dL (13.0-17.5)
[2018-04-02 07:17] LABS: Blood Urea Nitrogen 32 mg/dL (9-20); Calcium 8.1 mg/dL (8.4-10.2); Carbon Dioxide 20 mmol/L (22-30); Glucose 96 mg/dL (74-99); Potassium 4.1 mmol/L (3.5-5.1); Sodium 135 mmol/L (137-145)
[2018-04-02 07:29] LABS: Anion Gap 9 mmol/L; Chloride 106 mmol/L (98-107)
--- NOTE | 2018-04-02 07:37 | AN ---
ANGIOGRAPHY REPORT DATE OF SERVICE: 04/02/2018 PERFORMING PHYSICIAN: Hernandez Britton MD. PROCEDURE PERFORMED: 1. Selective left common iliac artery angiogram. 2. Selective left external iliac artery angiogram. 3. Selective left common femoral artery angiogram. 4. Selective right common femoral artery angiogram. INDICATION: This is a very pleasant 78-year-old gentleman who underwent within the last 24 hours successful atherectomy and balloon angioplasty of the right SFA and right tibioperoneal trunk as well as right peroneal artery from the left groin approach for evidence of critical limb ischemia of the right foot. During the day the patient developed abdominal discomfort and low blood pressure. A retroperitoneal bleed was suspected and a CTA did reveal retroperitoneal bleed. He was brought downstairs to the cardiac catheterization laboratory to check for evidence of retroperitoneal bleed and probably doing covered stent. APPROACH: Right common femoral artery. COMPLICATION: None. LEVEL OF SEDATION: Moderate with a sedation length of 22 minutes. PROCEDURE DESCRIPTION: After obtaining an informed consent, the patient was brought to the Cardiac Forensic Locksmith. The right common femoral artery was cannulated under ultrasound guidance, the micropuncture wire was advanced and I did advance a micropuncture wire very easily. Then I did exchange my micropuncture sheath into a 5-Kazakh 11 cm sheath. After that, I did select the left SFA using a 0.35 advantage wire with a backup support of 5-Kazakh rim catheter. After that, I did exchange my 5-Kazakh rim catheter into a 5-Kazakh straight catheter with multihole preparing for selective angiogram. After that, I did multiple injections of the left common iliac artery, external iliac artery, and common femoral artery as well. The angiogram did not reveal any evidence of perforation. At that point, I decided to stop. I did do selective right common femoral artery angiogram to check the data entry representative of the sheath in the right common femoral artery. The procedure was completed without any complication. Postprocedure management is maximize medical treatment. Follow up with the patient. MMODL / IJN: [id number] /
--- NOTE | 2018-04-02 07:46 | AN ---
ANGIOGRAPHY REPORT PERCUTANEOUS PERIPHERAL INTERVENTION: DATE OF SERVICE: 04/01/2018 PERFORMING PHYSICIAN: Hernandez Britton MD, wet mixer. PROCEDURE PERFORMED: 1. Selective right [id number] angiogram. 2. Selective right popliteal angiogram. 3. Selective right SFA angiogram. 4. An atherectomy of the right peroneal, tibioperoneal trunk, and SFA, using the orbital atherectomy device from [facility]. 5. Successful balloon angioplasty of the right peroneal, tibioperoneal trunk and SFA. INDICATION: This is a pleasant 78-year-old gentleman who was with evidence of critical limb ischemia of the right foot. He underwent a peripheral angiogram a few weeks ago and that revealed critical disease involving the right common femoral artery and severe disease involving the right SFA and right . He underwent right femoral endarterectomy by Dr. Cline and was brought today to undergo a AIR BATTLE MANAGER of the right SFA and right tibioperoneal trunk as well. APPROACH: Left common femoral artery. COMPLICATION: A perforation involving small branch of the peroneal artery. LEVEL OF SEDATION: Moderate with a sedation length of 2 hours and 30 minutes. PROCEDURE DESCRIPTION: After obtaining an informed consent, the patient was brought to the cardiac incinerator plant laborer. The left common femoral artery was cannulated using micropuncture technique, the micropuncture wire passed easily then I placed a 6-Mongolian sheath 11 cm in the left common femoral artery. Subsequently I did select the right SFA using an 0.035 advantage wire with the backup support of 5-Mongolian Rim catheter. After that, I did exchange my 11 cm 6-Mongolian sheath into 70 cm 6-Mongolian sheath using the advantage wire and the tip of the long sheath was positioned in the right common femoral artery. Subsequently I did selective right [id number] angiogram, popliteal, and SFA angiogram. 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 At that point, I did decide to pursue with an intervention on the right tibioperoneal trunk and right peroneal and subsequently the right SFA. I did cross the chronic total occlusion of the right tibioperoneal trunk and right peroneal using an 0.018 wire. After that, I did exchange my wire into an 0.014 ViperWire preparing for atherectomy. I did atherectomy using the orbital atherectomy device from [facility] where I atherectomized the right peroneal and tibioperoneal trunk as well as the right SFA. After that, I did balloon angioplasty of the right tibioperoneal trunk using 3 mm x 20 mm balloon and for the right SFA distally using 5 mm drug-coated balloon and then for the proximal SFA 6 mm drug-coated balloon. The following angiogram showed good angiographic results and there was during the case a small perforation in a branch of the peroneal artery, which was by the end of the procedure. After that I did exchange my 70 cm sheath into 11 cm sheath using 0.035 advantage wire and the procedure was completed without any complication. POSTPROCEDURE MANAGEMENT: 1. Dual anti-platelet therapy. 2. Risk factors modifications. 3. Follow up with the patient. FRITZ / HAYDE: [id number] /
[2018-04-02] MEDS ORDERED: fentaNYL (PF) 50 MCG/ML 2 ML AMP IVP STA (08:34)
--- NOTE | 2018-04-02 08:53 | P.PN ---
Progress Note - Text Progress Note Date: 04/02/18 This is a very pleasant 78-year-old gentleman who sees Dr. GERI Pelayo in the office and sees Dr. Franklin as well with known history of severe peripheral arterial disease and prior peripheral intervention where he underwent few years ago percutaneous intervention of the right common femoral artery with a good angiographic results. The patient has done well until lately where he was diagnosed with critical limb ischemia of the right foot. He was experiencing resting as well as skin changes of the right foot. Because of that, he underwent an abdominal aortogram and bilateral lower extremities runoff and that revealed critical and calcified disease involving the right common femoral artery, extremely calcified right superficial femoral artery with multiple area of critical disease, and occluded right tibial peroneal chunk with a complex lesion involving the anterior TPL and peroneal. Few weeks ago, he underwent right femoral endarterectomy and he was discharged home in stable medical condition. He was brought yesterday to the hospital and underwent successful crossing chronic total occlusion of the right tibial peroneal chunk and right peroneal artery along with atherectomy of the same spot as well as successful balloon angioplasty and beside that he did undergo also an atherectomy and successful balloon angioplasty of the right superficial femoral artery into areas in the proximal as well as the mid portions. By the end of the procedure, the patient did have good angiographic results with a good flow below the knee. During the procedure he did have a perforation in a very small branch of the peroneal artery which was resolved by the end of the procedure. During the procedure, I was notified about critical hemoglobin which was about 5. The patient does have mild fibrocystic disorder and he is known to have chronic anemia and prior history of blood transfusion. I did give the patient 2 units of packed RBC during the procedure and subsequently the patient was admitted to the intensive care unit. After the procedure he was experiencing a left groin and left abdominal wall discomfort for. The axis was from the left groin. The discomfort started after the sheath was pulled out. The blood pressure also was fluctuating. Because of that I did suspect retroperitoneal bleeding. I did perform a computed tomography scan of the abdomen and pelvis and that revealed retroperitoneal bleeding. I did take the patient to the cardiac chemical laboratory chief again and I did selective left iliac and femoral artery angiogram and that did not reveal any evidence of bleeding. On follow-up with him this morning, April 022017, he is definitely feeling better. He still have right foot and the right pelvic discomfort the right pelvic is slightly tender possibly because of the perforation which has resolved , but definitely is not more tender compare to yesterday. The right foot is warm with a good Doppler pulse signal distally. The hemoglobin is around 7 and that's his baseline. Hemodynamically he is stable. Overall he looks better. I am going to transfer the patient to selective units. I will keep him overnight for 1 more day and continue monitoring the hemoglobin for possible discharge tomorrow morning.
[2018-04-02] MEDS ORDERED: LISINOPRIL 10 MG TAB PO SCH (09:00)
[2018-04-02] MEDS: CLOPIDOGREL 75 MG TAB PO SCH (09:03)
[2018-04-02] MEDS: ASPIRIN 325 MG TAB PO SCH (09:03)
[2018-04-02] MEDS: PANTOPRAZOLE 40 MG TABLET PO SCH ×2 (09:04→17:16)
[2018-04-02] MEDS: FUROSEMIDE 40 MG TAB PO SCH ×2 (09:04→17:16)
[2018-04-02] MEDS: JAKAFI PO SCH ×2 (09:04→21:45)
[2018-04-02] MEDS: SPIRONOLACTONE 25 MG TAB PO SCH (09:05)
[2018-04-02] MEDS: METOPROLOL TARTRATE 25 MG TAB PO SCH ×2 (09:42→21:45)
[2018-04-02] MEDS: LISINOPRIL 5 MG TAB PO SCH (09:42)
--- NOTE | 2018-04-02 14:28 | IR ---
EXAMINATION TYPE: IR angio extremity LT DATE OF EXAM: 04/02/2018 COMPARISON: CT 04/01/2018 HISTORY: Peripheral vascular occlusive disease and retroperitoneal hematoma Fluoroscopy support supplied to the referring clinician. See dictated report from cardiology, 322 im ages obtained, 4.9 minutes fluoroscopy time
[2018-04-02 18:55] LABS: Anisocytosis Moderate; HCT 22.7 % (39.0-53.0); HGB 7.7 gm/dL (13.0-17.5); MCH 29.2 pg (25.0-35.0); MCHC 33.9 g/dL (31.0-37.0); MCV 86.1 fL (80.0-100.0); Mean Platelet Volume 8.4; Microcytosis Slight; Platelet Count 160 k/uL (150-450); Poikilocytosis Slight; RBC 2.64 m/uL (4.30-5.90); RDW 22.8 % (11.5-15.5)
[2018-04-02 20:15] LABS: Band Neutrophils % 11 %; Lymphocytes # (M) 1.08 k/uL (1.0-4.8); Myelocytes % 2 %; Neutrophils % (M) 75 %; Nucleated Red Blood Cells 4 /100 WBC (0-0); Poikilocytosis (M) Present; Total Cells Counted 200; WBC 9.8 k/uL (3.8-10.6)
[2018-04-02 20:16] LABS: Toxic Granulation Present
[2018-04-02] MEDS: ATORVASTATIN 40 MG TAB PO SCH (21:45)
[2018-04-02] MEDS: DOXAZOSIN 4 MG TAB PO SCH (21:45)
[2018-04-02] MEDS ORDERED: fentaNYL (PF) 50 MCG/ML 2 ML AMP IV STA (22:51)
[2018-04-02] MEDS ORDERED: ZOLPIDEM 5 MG TAB PO PRN (22:52)
[2018-04-03 05:51] LABS: Anion Gap 9 mmol/L; Blood Urea Nitrogen 27 mg/dL (9-20); Calcium 8.3 mg/dL (8.4-10.2); Carbon Dioxide 25 mmol/L (22-30); Chloride 104 mmol/L (98-107); Glucose 94 mg/dL (74-99); Potassium 3.9 mmol/L (3.5-5.1); Sodium 138 mmol/L (137-145)
[2018-04-03 06:14] LABS: Anisocytosis Moderate; HCT 20.5 % (39.0-53.0); MCH 29.1 pg (25.0-35.0); MCHC 33.5 g/dL (31.0-37.0); MCV 86.9 fL (80.0-100.0); Microcytosis Slight; Platelet Count 127 k/uL (150-450); Poikilocytosis Slight; RBC 2.36 m/uL (4.30-5.90); RDW 22.8 % (11.5-15.5)
[2018-04-03 06:22] LABS: HGB 6.9 gm/dL (13.0-17.5)
[2018-04-03] MEDS: oxyCODONE-APAP 5-325MG 1 EACH TAB PO PRN ×4 (07:35→23:32)
[2018-04-03] MEDS: LISINOPRIL 5 MG TAB PO SCH (07:37)
[2018-04-03] MEDS: FUROSEMIDE 40 MG TAB PO SCH ×2 (07:37→17:34)
[2018-04-03] MEDS: ASPIRIN 325 MG TAB PO SCH (07:37)
[2018-04-03] MEDS: PANTOPRAZOLE 40 MG TABLET PO SCH ×2 (07:37→17:34)
[2018-04-03] MEDS: CLOPIDOGREL 75 MG TAB PO SCH (07:37)
[2018-04-03] MEDS: METOPROLOL TARTRATE 25 MG TAB PO SCH ×2 (07:38→20:17)
[2018-04-03] MEDS: SPIRONOLACTONE 25 MG TAB PO SCH (07:38)
[2018-04-03] MEDS: JAKAFI PO SCH ×4 (07:38→22:25)
[2018-04-03 08:35] LABS: Band Neutrophils % 8 %; Blast Cells # (M) 0.06 k/uL (0); Eosinophils # (M) 0.06 k/uL (0-0.7); Lymphocytes # (M) 1.07 k/uL (1.0-4.8); Metamyelocytes # (M) 0.38 k/uL (0); Metamyelocytes % 6 %; Myelocytes % 8 %; Neutrophils % (M) 52 %; Nucleated Red Blood Cells 4 /100 WBC (0-0); Promyelocytes # (M) 0.06 k/uL (0); Promyelocytes % 1 %; Total Cells Counted 200; WBC 6.3 k/uL (3.8-10.6)
--- NOTE | 2018-04-03 14:18 | US ---
EXAMINATION TYPE: US lower ext pseudo artery RT DATE OF EXAM: 04/03/2018 COMPARISON: CT 04/01/2018 CLINICAL HISTORY: Right groin bleeding post endarterectomy. EXAM PERFORMED: Grayscale and color Doppler duplex imaging performed of the groin, post cardiac trina ter to assess for pseudoaneurysm. SIDE PERFORMED: Right Color and Waveform Doppler performed to assess for the presence of pseudoaneurysm; Is there ultrasound evidence of a pseudoaneurysm: Yes Is there evidence of AV shunting: No Within the right groin, at the level of the patient's puncture site, there is a large complex area vi sualized measuring 7.2 x 2.9 x 3.9 cm. There is vascularity visualized within this area and what appe ars to be a small neck coming from the right LINE CLEANER. Probable right pseudoaneurysm Two techs scanned to verify, Kamilla Valadez and Floridalma Zafar IMPRESSION: The right groin pseudoaneurysm appears largely thrombosed however difficult to exclude a small patent portion of pseudoaneurysm, consider CTA or angiography for better evaluation, results relayed to [facility] care unit staff at the time of interpretation
[2018-04-03] MEDS ORDERED: oxyCODONE-APAP 5-325MG 1 EACH TAB PO PRN (15:01)
--- NOTE | 2018-04-03 16:59 | PN ---
PROGRESS NOTE DATE OF SERVICE: 04/03/2018. HISTORY: Mr. Burk is a gentleman who underwent a percutaneous intervention of his lower extremity vasculature. He also, on his right groin, had surgery performed by Dr. Cline. He is pain-free relatively and doing better. Pulses are diminished. His hemoglobin is relatively stable. I will give him 1 unit of packed RBCs. Hemoglobin is 6.9 today. Vital signs stable. S1 and S2 are heard normally. Short systolic murmur noted. Lungs are clear. His right groin spontaneously started bleeding, we applied for manual pressure. We will do an ultrasound and talk to Dr. Cline regarding advice. He may have an underlying the ultrasound. PLAN: I am recommending that we are transfuse blood, continue current medications, seek input from Dr. Cline regarding the bleeding from the incision where he performed surgery on March 07. Prognosis remains guarded. MMODL / IJN: [id number] /
[2018-04-03 17:08] LABS: Anisocytosis Moderate; HGB 7.8 gm/dL (13.0-17.5); MCH 29.6 pg (25.0-35.0); MCV 87.1 fL (80.0-100.0); Mean Platelet Volume 8.5; Microcytosis Slight; Platelet Count 120 k/uL (150-450); Poikilocytosis Slight; RBC 2.64 m/uL (4.30-5.90); RDW 22.3 % (11.5-15.5)
[2018-04-03 17:29] LABS: Band Neutrophils % 10 %; Basophils # (M) 0.06 k/uL (0-0.2); Eosinophils # (M) 0.06 k/uL (0-0.7); Lymphocytes # (M) 1.18 k/uL (1.0-4.8); Metamyelocytes % 5 %; Monocytes # (M) 0.18 k/uL (0-1.0); Neutrophils % (M) 61 %; Nucleated Red Blood Cells 5 /100 WBC (0-0); Total Cells Counted 200; WBC 5.9 k/uL (3.8-10.6)
[2018-04-03 17:30] LABS: Anisocytosis (M) Present; Ovalocytes Present; Poikilocytosis (M) Present
[2018-04-03] MEDS: ATORVASTATIN 40 MG TAB PO SCH (20:16)
[2018-04-03] MEDS: DOXAZOSIN 4 MG TAB PO SCH (20:17)
[2018-04-04 01:37] LABS: Anisocytosis Moderate; HCT 23.4 % (39.0-53.0); HGB 7.8 gm/dL (13.0-17.5); MCH 29.3 pg (25.0-35.0); MCHC 33.5 g/dL (31.0-37.0); MCV 87.5 fL (80.0-100.0); Mean Platelet Volume 8.5; Microcytosis Slight; Platelet Count 116 k/uL (150-450); Poikilocytosis Slight; RBC 2.67 m/uL (4.30-5.90); RDW 22.1 % (11.5-15.5)
[2018-04-04 02:47] LABS: Band Neutrophils % 15 %; Eosinophils # (M) 0.12 k/uL (0-0.7); Metamyelocytes % 4 %; Myelocytes # (M) 0.06 k/uL (0); Myelocytes % 1 %; Neutrophils % (M) 64 %; Nucleated Red Blood Cells 5 /100 WBC (0-0); Total Cells Counted 200
[2018-04-04 02:48] LABS: Lymphocytes # (M) 0.71 k/uL (1.0-4.8); Metamyelocytes # (M) 0.24 k/uL (0); Monocytes # (M) 0.24 k/uL (0-1.0); WBC 5.9 k/uL (3.8-10.6)
[2018-04-04 02:53] LABS: Ovalocytes Present; RBC Fragments Present
[2018-04-04 02:57] LABS: Toxic Granulation Present
[2018-04-04] MEDS: oxyCODONE-APAP 5-325MG 1 EACH TAB PO PRN ×4 (04:27→20:28)
[2018-04-04 05:25] LABS: Anisocytosis Moderate; HCT 23.1 % (39.0-53.0); HGB 7.8 gm/dL (13.0-17.5); MCH 29.9 pg (25.0-35.0); MCHC 33.9 g/dL (31.0-37.0); MCV 88.2 fL (80.0-100.0); Mean Platelet Volume 8.4; Platelet Count 121 k/uL (150-450); Poikilocytosis Slight; RBC 2.62 m/uL (4.30-5.90); RDW 22.6 % (11.5-15.5)
[2018-04-04 05:49] LABS: Anion Gap 8 mmol/L; Blood Urea Nitrogen 19 mg/dL (9-20); Calcium 8.7 mg/dL (8.4-10.2); Carbon Dioxide 24 mmol/L (22-30); Chloride 103 mmol/L (98-107); Glucose 93 mg/dL (74-99); Magnesium 1.8 mg/dL (1.6-2.3); Phosphorus 3.7 mg/dL (2.5-4.5); Potassium 4.3 mmol/L (3.5-5.1); Sodium 135 mmol/L (137-145)
[2018-04-04 07:29] LABS: Band Neutrophils % 22 %; Eosinophils # (M) 0.11 k/uL (0-0.7); Metamyelocytes % 8 %; Monocytes # (M) 0.11 k/uL (0-1.0); Myelocytes % 1 %; Neutrophils % (M) 54 %; Nucleated Red Blood Cells 3 /100 WBC (0-0); Total Cells Counted 200
[2018-04-04 07:30] LABS: Blast Cells # (M) 0.05 k/uL (0); Lymphocytes # (M) 0.58 k/uL (1.0-4.8); Metamyelocytes # (M) 0.42 k/uL (0); Myelocytes # (M) 0.05 k/uL (0); WBC 5.3 k/uL (3.8-10.6)
[2018-04-04 07:31] LABS: Poikilocytosis (M) Present
[2018-04-04 07:32] LABS: Large Platelets Present; Toxic Granulation Present
--- NOTE | 2018-04-04 08:23 | US ---
EXAMINATION TYPE: US lower ext pseudo artery RT DATE OF EXAM: 04/04/2018 COMPARISON: Exam from previous date 04/03/2018 CLINICAL HISTORY: reassess pseudoaneurysm. Right groin bleeding post endarterectomy. Reassess pseudo. Fem stop in place EXAM PERFORMED: Grayscale and color Doppler duplex imaging performed of the groin, post cardiac trina ter to assess for pseudoaneurysm. SIDE PERFORMED: right Color and Waveform Doppler performed to assess for the presence of pseudoaneurysm; Is there ultrasound evidence of a pseudoaneurysm: yes Is there evidence of AV shunting: no Large complex area right groin = 6.8 x 4.6 x 4.1cm. Unable to visualize any vascularity within this area at this time. Possible neck still visualized originating from right EXCELSIOR PICKER IMPRESSION: Difficult to exclude a patent neck at the level of the anterior margin of the femoral artery. Large t hrombosed pseudoaneurysm or hematoma is noted in the right groin.
[2018-04-04] MEDS: PANTOPRAZOLE 40 MG TABLET PO SCH ×2 (10:33→17:12)
[2018-04-04] MEDS: METOPROLOL TARTRATE 25 MG TAB PO SCH ×2 (11:27→18:24)
[2018-04-04] MEDS: LISINOPRIL 5 MG TAB PO SCH (11:27)
[2018-04-04] MEDS: SPIRONOLACTONE 25 MG TAB PO SCH (11:27)
--- NOTE | 2018-04-04 12:13 | P.GSCN ---
History of Present Illness Consult date: 04/04/18 Reason for Consult: right femoral bleed with pseudoaneurysm Requesting physician: Tiffany Pelayo History of present illness: 78-year-old gentleman who underwent right common femoral artery endarterectomy with patch angioplasty March 07 of this year presented to the hospital for right lower extremity revascularization with Dr. Britton. During the procedure balloon angioplasty was performed at the superficial femoral artery takeoff adjacent to the previous patch. After the procedure was performed on 04/01/2018 the patient who has a history of anemia was found to be anemic as well as having swelling in his left groin as well as bleeding from his right previous incision site. Due to the bleeding and expanding hematoma CT of the abdomen was performed demonstrating a left retroperitoneal hematoma. The right groin was investigated with ultrasound which demonstrated a large approximately 6.8 cm hematoma with pseudoaneurysm coming from the common femoral artery. Pressure was then placed and a repeat ultrasound was obtained along with transfusions to help with his anemia. After pressure was placed the pseudoaneurysm was partially thrombosed but there is still an area of connection, neck that was still visible on ultrasound. Per nursing the groin is continually bleeding at a slow ooze every times a day takeoff the FemoStop. Due to the continued use and his history of anemia and transfusions I discussed options with the patient including surgical option of cleaning out the groin and fixing the pseudoaneurysm which he has chosen to go ahead with. We will schedule him for surgery today to washout the hematoma and fixed pseudoaneurysm. Review of Systems All systems reviewed and otherwise negative unless mentioned in HPI past medical history Past Medical History Past Medical History: Blood Disorder, Coronary Artery Disease (CAD), Heart Failure, GERD/Reflux, Hyperlipidemia, Hypertension, Prostate Disorder Additional Past Medical History / Comment(s): PAD,rt foot red and swollen with pain-dr monitoring-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 Anemia History of Any Multi-Drug Resistant Organisms: Acinetobacter (MDRO) Year Discovered:: 11/18/17 MDRO Source:: MDRO ACINETOBACTER SPUTUM Past Surgical History: Coronary Bypass/CABG, Heart Catheterization, Hernia Repair Additional Past Surgical History / Comment(s): cardiac cath ON 10/04/2014, 5-4- 16 DIRECTOR OF ADULT [employer]LE[employer] RT SFA, PEPE INGUIANL HERNIA, [employer] HERNIA. RIGHT FEM-POP BYPASS. Past Anesthesia/Blood Transfusion Reactions: No Reported Reaction Past Psychological History: No Psychological Hx Reported Additional Psychological History / Comment(s): PT LIVES AT HOME WITH HIS , IS INDEPENDANT,RETIRED FROM [employer]. NO HX, Smoking Status: Former smoker Past Alcohol Use History: Occasional Additional Past Alcohol Use History / Comment(s): STARTED SMOKING AT AGE 16 QUIT AT AGE 40 SMOKED 1 1/2 PPD Past Drug Use History: None Reported - Past Family History Brother(s) Family Medical History: Cancer Additional Family Medical History / Comment(s): 2 with lung and 1 with prostate Mother Family Medical History: Myocardial Infarction ([place]) Father Additional Family Medical History / Comment(s): AT AGE 83 FROM "HARDENING OF THE ARTERIES" Medications and Allergies Home Medications Medication Instructions Recorded Confirmed Type Atorvastatin [Lipitor] 40 mg PO HS 09/27/14 04/01/18 History Metoprolol Tartrate [Lopressor] 50 mg PO BID 09/27/14 04/01/18 History Terazosin [Hytrin] 5 mg PO HS 09/27/14 04/01/18 History Enalapril [Vasotec] 5 mg PO DAILY #30 tablet 10/12/14 04/01/18 Rx Pantoprazole [Protonix] 40 mg PO BID 11/12/17 04/01/18 History Spironolactone [Aldactone] 25 mg PO DAILY 11/12/17 04/01/18 History Furosemide [Lasix] 40 mg PO BID #0 11/21/17 04/01/18 Rx Ruxolitinib Phosphate [Jakafi] 25 mg PO BID 02/07/18 04/01/18 History oxyCODONE HCL/ACETAMINOPHEN 1 tab PO Q6HR PRN 03/05/18 04/01/18 History [Endocet 5-325 mg] Rivaroxaban [Xarelto] 15 mg PO W/SUPPER tab 03/09/18 04/01/18 Rx Allergies Allergy/AdvReac Type Severity Reaction Status Date / Time No Known Allergies Allergy Verified 03/27/18 08:55 Surgical - Exam Vital Signs Temp Pulse Resp BP Pulse Ox 98.0 F 69 18 99/49 98 04/01/18 11:07 04/01/18 11:07 04/01/18 11:07 04/01/18 11:07 04/01/18 11:07 Right groin incision is intact there is an area of opening at the medial aspect of the incision where dark red blood is expressed. There is palpable pulse at the femoral area as well as tenderness to palpation. The left groin area has a indurated area that is tender to palpation. Ecchymosis is noted on the left flank and groin area. Right groin and flank area are without any signs of ecchymosis. - General well developed, well nourished, no distress - Eyes PERRL, normal ocular movement - ENT normal pinna, normal nares - Neck no masses - Respiratory normal expansion - Cardiovascular Rhythm: regular - Abdomen Abdomen: soft, non tender - Integumentary no rash - Neurologic normal coordination - Psychiatric oriented to time, oriented to person, oriented to place Results - Labs 04/04/18 04:49 04/04/18 04:49 Abnormal Lab Results - Last 24 Hours (Table) 04/01/18 04/03/18 04/04/18 Range/Units 12:54 16:25 00:15 RBC 2.64 L 2.67 L (4.30-5.90) m/uL Hgb 7.8 L 7.8 L (13.0-17.5) gm/dL Hct 23.0 L 23.4 L (39.0-53.0) % RDW 22.3 H 22.1 H (11.5-15.5) % Plt Count 120 L 116 L (150-450) k/uL Lymphocytes # (Manual) 0.71 L (1.0-4.8) k/uL Metamyelocytes # (Man) 0.30 H 0.24 H (0) k/uL Myelocytes # (Manual) 0.06 H (0) k/uL Blast Cells # (Man) (0) k/uL Nucleated RBCs 5 H 5 H (0-0) /100 WBC Sodium (137-145) mmol/L Crossmatch See Detail 04/04/18 04/04/18 Range/Units 04:49 04:49 RBC 2.62 L (4.30-5.90) m/uL Hgb 7.8 L (13.0-17.5) gm/dL Hct 23.1 L (39.0-53.0) % RDW 22.6 H (11.5-15.5) % Plt Count 121 L (150-450) k/uL Lymphocytes # (Manual) 0.58 L (1.0-4.8) k/uL Metamyelocytes # (Man) 0.42 H (0) k/uL Myelocytes # (Manual) 0.05 H (0) k/uL Blast Cells # (Man) 0.05 H (0) k/uL Nucleated RBCs 3 H (0-0) /100 WBC Sodium 135 L (137-145) mmol/L Crossmatch Diabetes panel 04/04/18 Range/Units 04:49 Sodium 135 L (137-145) mmol/L Potassium 4.3 (3.5-5.1) mmol/L Chloride 103 (98-107) mmol/L Carbon Dioxide 24 (22-30) mmol/L BUN 19 (9-20) mg/dL Creatinine 0.81 (0.66-1.25) mg/dL Glucose 93 (74-99) mg/dL Calcium 8.7 (8.4-10.2) mg/dL Calcium panel 04/04/18 Range/Units 04:49 Calcium 8.7 (8.4-10.2) mg/dL Phosphorus 3.7 (2.5-4.5) mg/dL Pituitary panel 04/04/18 Range/Units 04:49 Sodium 135 L (137-145) mmol/L Potassium 4.3 (3.5-5.1) mmol/L Chloride 103 (98-107) mmol/L Carbon Dioxide 24 (22-30) mmol/L BUN 19 (9-20) mg/dL Creatinine 0.81 (0.66-1.25) mg/dL Glucose 93 (74-99) mg/dL Calcium 8.7 (8.4-10.2) mg/dL Adrenal panel 04/04/18 Range/Units 04:49 Sodium 135 L (137-145) mmol/L Potassium 4.3 (3.5-5.1) mmol/L Chloride 103 (98-107) mmol/L Carbon Dioxide 24 (22-30) mmol/L BUN 19 (9-20) mg/dL Creatinine 0.81 (0.66-1.25) mg/dL Glucose 93 (74-99) mg/dL Calcium 8.7 (8.4-10.2) mg/dL Assessment and Plan (1) Pseudoaneurysm Current Visit: Yes Status: Acute Priority: High Code(s): I72.9 - ANEURYSM OF UNSPECIFIED SITE SNOMED Code(s): 35288687 Plan: Long discussion was had with patient about surgical intervention versus continued observation. Patient would like intervention and repair of his femoral patch therefore we will taken to the operating room for exploration. Discussed with Dr. Pelayo who is in agreement and states he is okay for surgery from a cardio standpoint.
[2018-04-04 12:52] LABS: INR 1.3 (<1.2); Prothrombin Time 12.1 sec (9.0-12.0)
[2018-04-04] MEDS ORDERED: fentaNYL (PF) 50 MCG/ML 2 ML AMP ONE (13:13)
[2018-04-04] MEDS ORDERED: ONDANSETRON 4 MG/2 ML VIAL ONE (13:13)
[2018-04-04] MEDS ORDERED: PROPOFOL 10 MG/ML 20 ML VIAL IV ONE (13:13)
[2018-04-04] MEDS ORDERED: ePHEDrine SULFATE/0.9% NACL/PF 50 MG/5 ML SYRINGE IV ONE (13:13)
[2018-04-04] MEDS ORDERED: SUCCINYLCHOLINE CHLORIDE 100 MG/5 ML SYR IV ONE (13:13)
[2018-04-04] MEDS ORDERED: LACTATED RINGERS 1,000 ML IV ONE (13:13)
[2018-04-04] MEDS ORDERED: ROCURONIUM BROMIDE 10 MG/ML 10 ML VIAL IV ONE (13:13)
[2018-04-04] MEDS ORDERED: PHENYLEPHRINE-0.9% NACL SYG 1 MG/10 ML SYRINGE ONE (13:13)
[2018-04-04] MEDS ORDERED: ceFAZolin 1,000 MG VIAL ONE (13:13)
--- NOTE | 2018-04-04 14:43 | P.OP ---
Date of Procedure: 04/04/18 Preoperative Diagnosis: Right femoral artery pseudoaneurysm Postoperative Diagnosis: Same Procedure(s) Performed: Right groin exploration with right femoral artery pseudoaneurysm repair. Anesthesia: GETA Surgeon: James Cline Estimated Blood Loss (ml): 50 Condition: stable Disposition: PACU Indications for Procedure: 78-year-old gentleman who recently underwent right lower extremity revascularization in the [facility] and then subsequent aortogram via access through the right femoral patch presents to the operating room for repair of a right femoral pseudoaneurysm. Patient was diagnosed in the ICU with a right common femoral artery pseudoaneurysm pressure was placed without control of bleeding. Patient had an tenuous ooze from his previous femoral incision site and therefore ultrasounds were obtained demonstrating pseudoaneurysm with a small neck area of active bleeding. Due to this he was taken to the operating room for expiration and pseudoaneurysm repair. Operative Findings: Right femoral patch was intact at the suture lines but there was a access hole about the size of a 035 wire at the anterior surface of the patch that was actively bleeding. Large hematoma was removed as well. Description of Procedure: After written informed consent was obtained the patient all risks benefits competitions were described patient is brought to the operative suite and laid in a supine position. The area of the groin and right lower extremity was prepped and draped in usual sterile fashion after appropriate anesthetic was performed per the anesthesiologist. A timeout was performed in normal fashion antibiotics were administered prior to incision. X The previous surgical site incision was reopened with a 10 blade scalpel and dissection was carried down to the previous patch femoral artery with blunt dissection. Large hematoma was removed and active bleeding was noted coming from the anterior surface of the patch which appeared to be a small hole about the size of an access needle. A 6-0 Prolene suture was used to close the defect. The area was then copiously irrigated no active bleeding was noted. There was diffuse oozing from the tissues within the incision site and therefore a 10-K[place] OZZIE drain was placed. This was secured with 3-0 nylon suture. Surgicel was utilized to assist with hemostasis. Hemostasis was assured and the incision was closed in a multilayer fashion. The skin was cleansed and dressed with a Prevena VAC. The patient tolerated she well was sent to PACU for recovery.
--- NOTE | 2018-04-04 15:57 | PN ---
PROGRESS NOTE Mr. Burk continues to have oozing from the right groin area where there is a pseudoaneurysm and some of previous surgery performed by Dr. Cline. I spoke to Dr. Cline yesterday. He is going to evaluate the patient today and consider taking him for surgery for the pseudoaneurysm. He still has a Femstop on, is doing well. His pain control has been much better. Vital signs are stable. S1-S2 heard normally. Short systolic murmur noted. Lungs are clear. Abdomen and lower extremity exam unchanged. Hemoglobin appears to be stable today. We will await input from Dr. Cline and possible surgery today. His retroperitoneal hematoma and bleeding from that area appears to be well contained. MMODL / IJN: [id number] /
[2018-04-04] MEDS: CLOPIDOGREL 75 MG TAB PO SCH (16:02)
[2018-04-04] MEDS: ASPIRIN 81 MG PO SCH (16:02)
[2018-04-04] MEDS: FUROSEMIDE 40 MG TAB PO SCH ×2 (16:02→17:12)
--- NOTE | 2018-04-04 16:03 | P.CONS ---
History of Present Illness - Reason for Consult Consult date: 04/04/18 - History of Present Illness Mr Burk is a pleasant white male, initially seen in consult at [facility] on 11/13/17. Since summer, the patient had noted decrease in appetite, progressive fatigue, weakness and weight loss. He had come in to the hospital because of progressive shortness of breath, lower extremity swelling and orthopnea.he was noted to be in congestive heart failure and was treated for the same. Labs labs showed an elevated white count in the 30,000 range, and platelets greater than 1 million. Hemoglobin was 8.5. WBC differential showed a significant left shift. Normal labs had been noted in and the patient was supposed to be seen by us in the outpatient setting. He underwent bone marrow aspirate and biopsy in 11/15/17. He had a comparatively prolonged hospitalization for treatment for his congestive heart failure which is slow to respond. He was admitted discharged on 12/01/17. In the meantime a bone marrow pathology showed hypercellular marrow with increased trilineage hematopoiesis, and dysmegakaryopoeisis and mild reticulin fibrosis. 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 Blast percentage was not significantly increased. 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 the patient was seen for his first office visit on 12/10/17. He was started on Jakafi in late 12/22 The patient did respond, with normalization of his white count and platelets. Hemoglobin still remained low, in the 7-8 range. He has otherwise tolerated his medication well. The patient has known extensive peripheral vascular occlusive disease. He came in for right lower extremity revascularization and underwent angioplasty of the right femoral artery. The patient subsequently developed bleeding, consisting of a left retroperitoneal hematoma, as well as pseudoaneurysm in the right groin with leak. Hemoglobin dropped to 5.6. Patient has required blood transfusions since with recurrent drops of hemoglobin into the 6 range. He was taken to surgery today and underwent drainage of the hematoma and a ferritin of the pseudoaneurysm. Hemoglobin today is stable in the 7 range. White count is normal. Platelets are somewhat lower than normal, but well within a safe range in the 120-130 K level. Consult was therefore placed for further evaluation and recommendations Review of Systems Constitutional: Reports fatigue, Reports weakness Eyes: denies blurred vision, denies pain Ears: deny: decreased hearing, ear discharge, earache, tinnitus Ears, nose, mouth and throat: Denies headache, Denies sore throat Cardiovascular: Reports as per HPI, Reports decreased exercise tolerance Respiratory: Denies cough Gastrointestinal: Denies abdominal pain, Denies diarrhea, Denies nausea, Denies vomiting Genitourinary: Reports urinary frequency Musculoskeletal: Reports muscle weakness, Reports shooting leg pain Integumentary: Denies pruritus, Denies rash Neurological: Denies numbness, Denies weakness Psychiatric: Denies anxiety, Denies depression Endocrine: Denies fatigue, Denies weight change Hematologic/Lymphatic: Reports as per HPI Past Medical History Past Medical History: Blood Disorder, Coronary Artery Disease (CAD), Heart Failure, GERD/Reflux, Hyperlipidemia, Hypertension, Prostate Disorder Additional Past Medical History / Comment(s): PAD,rt foot red and swollen with pain-dr monitoring-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 RIGHT FEM-POP BYPASS. Past Anesthesia/Blood Transfusion Reactions: No Reported Reaction Past Psychological History: No Psychological Hx Reported Additional Psychological History / Comment(s): PT LIVES AT HOME WITH HIS , IS INDEPENDANT,RETIRED FROM [employer]. NO HX, Smoking Status: Former smoker Past Alcohol Use History: Occasional Additional Past Alcohol Use History / Comment(s): STARTED SMOKING AT AGE 16 QUIT AT AGE 40 SMOKED 1 1/2 PPD Past Drug Use History: None Reported - Past Family History Brother(s) Family Medical History: Cancer Additional Family Medical History / Comment(s): 2 with lung and 1 with prostate Mother Family Medical History: Myocardial Infarction ([place]) Father Additional Family Medical History / Comment(s): AT AGE 83 FROM "HARDENING OF THE ARTERIES" Medications and Allergies Home Medications Medication Instructions Recorded Confirmed Type Atorvastatin [Lipitor] 40 mg PO HS 09/27/14 04/01/18 History Metoprolol Tartrate [Lopressor] 50 mg PO BID 09/27/14 04/01/18 History Terazosin [Hytrin] 5 mg PO HS 09/27/14 04/01/18 History Enalapril [Vasotec] 5 mg PO DAILY #30 tablet 10/12/14 04/01/18 Rx Pantoprazole [Protonix] 40 mg PO BID 11/12/17 04/01/18 History Spironolactone [Aldactone] 25 mg PO DAILY 11/12/17 04/01/18 History Furosemide [Lasix] 40 mg PO BID #0 11/21/17 04/01/18 Rx Ruxolitinib Phosphate [Jakafi] 25 mg PO BID 02/07/18 04/01/18 History oxyCODONE HCL/ACETAMINOPHEN 1 tab PO Q6HR PRN 03/05/18 04/01/18 History [Endocet 5-325 mg] Rivaroxaban [Xarelto] 15 mg PO W/SUPPER tab 03/09/18 04/01/18 Rx Allergies Allergy/AdvReac Type Severity Reaction Status Date / Time No Known Allergies Allergy Verified 03/27/18 08:55 Physical Exam Vitals: Vital Signs Temp Pulse Resp BP Pulse Ox 04/04/18 13:15 99/44 04/04/18 13:00 99/44 04/04/18 12:45 99/44 04/04/18 12:30 96 20 99/44 96 04/04/18 12:15 72 15 113/52 98 04/04/18 12:00 98.7 F 72 20 113/52 98 04/04/18 11:45 95 22 113/52 97 04/04/18 11:30 73 20 113/52 98 04/04/18 11:15 71 18 108/48 97 04/04/18 11:00 71 19 108/48 97 04/04/18 10:45 71 20 108/48 96 04/04/18 10:30 71 23 108/48 97 04/04/18 10:15 71 15 91/46 97 04/04/18 10:00 71 14 91/46 95 04/04/18 09:45 71 14 91/46 96 04/04/18 09:30 84 19 91/46 96 04/04/18 09:15 95 24 103/53 96 06/01/18 09:00 95 17 103/53 97 04/04/18 08:00 98.6 F 94 15 107/48 96 04/04/18 07:00 79 17 113/48 95 04/04/18 06:00 72 16 90/44 96 04/04/18 05:00 72 16 111/50 94 L 04/04/18 04:00 98.9 F 71 19 106/48 97 04/04/18 03:00 71 17 108/52 96 04/04/18 02:00 71 17 93/48 95 04/04/18 01:00 70 13 104/51 96 04/04/18 00:00 98.9 F 90 26 H 117/52 96 04/03/18 23:00 85 28 H 113/62 97 04/03/18 22:00 72 14 136/68 96 04/03/18 21:31 73 12 96 04/03/18 21:00 95 20 140/56 96 04/03/18 20:00 99.1 F 72 19 131/55 97 04/03/18 19:00 81 18 108/47 04/03/18 18:00 73 25 H 134/60 04/03/18 17:00 93 15 128/63 99 04/03/18 16:00 75 15 132/58 04/03/18 15:00 69 12 119/57 04/03/18 14:00 69 16 109/54 04/03/18 13:45 70 28 H 120/57 Intake and Output 04/03/18 04/04/18 04/04/18 22:59 06:59 14:59 Intake Total 200 400 Output Total 950 625 450 Balance -750 -625 -50 Intake: Oral 200 400 Output: Urine 950 625 450 Other: Voiding Method Urinal Urinal Urinal Weight 73.2 kg 73.2 kg 73.2 kg - Constitutional General appearance: no acute distress - EENT Eyes: EOMI, PERRLA ENT: hearing grossly normal, normal oropharynx - Neck Neck: lymphadenopathy Thyroid: bilateral: normal size - Respiratory Respiratory: bilateral: CTA - Cardiovascular Rhythm: regular Heart sounds: normal: S1, S2 - Gastrointestinal General gastrointestinal: normal bowel sounds, soft - Integumentary Integumentary: normal - Neurologic Neurologic: CNII-XII intact - Musculoskeletal wound VAC in situ, right groin Musculoskeletal: generalized weakness - Psychiatric Psychiatric: A&O x's 3, appropriate affect, intact judgment & insight Results CBC & Chem 7: 04/04/18 04:49 04/04/18 04:49 Labs: Abnormal Lab Results - Last 24 Hours (Table) 04/01/18 04/03/18 04/04/18 Range/Units 12:54 16:25 00:15 RBC 2.64 L 2.67 L (4.30-5.90) m/uL Hgb 7.8 L 7.8 L (13.0-17.5) gm/dL Hct 23.0 L 23.4 L (39.0-53.0) % RDW 22.3 H 22.1 H (11.5-15.5) % Plt Count 120 L 116 L (150-450) k/uL Lymphocytes # (Manual) 0.71 L (1.0-4.8) k/uL Metamyelocytes # (Man) 0.30 H 0.24 H (0) k/uL Myelocytes # (Manual) 0.06 H (0) k/uL Blast Cells # (Man) (0) k/uL Nucleated RBCs 5 H 5 H (0-0) /100 WBC PT (9.0-12.0) sec INR (<1.2) Sodium (137-145) mmol/L Crossmatch See Detail 04/04/18 04/04/18 04/04/18 Range/Units 04:49 04:49 11:56 RBC 2.62 L (4.30-5.90) m/uL Hgb 7.8 L (13.0-17.5) gm/dL Hct 23.1 L (39.0-53.0) % RDW 22.6 H (11.5-15.5) % Plt Count 121 L (150-450) k/uL Lymphocytes # (Manual) 0.58 L (1.0-4.8) k/uL Metamyelocytes # (Man) 0.42 H (0) k/uL Myelocytes # (Manual) 0.05 H (0) k/uL Blast Cells # (Man) 0.05 H (0) k/uL Nucleated RBCs 3 H (0-0) /100 WBC PT 12.1 H (9.0-12.0) sec INR 1.3 H (<1.2) Sodium 135 L (137-145) mmol/L Crossmatch Comments: Lower extremity computed tomography scan reports, as well as arterial Doppler reports reviewed Assessment and Plan (1) Anemia Narrative/Plan: The patient has chronic anemia due to his known myelofibrosis. Since starting treatment from myelofibrosis, hemoglobin has been generally in the 7-8 range. During this admission hemoglobin has dropped because of blood loss.. Agree with transfusion support. As anemia can be a side effect of Jakafi I would recommend holding the medication while in the hospital. We will follow- up in the outpatient setting and resume the medication once hemoglobin is noted to be stable at least at his baseline. Current Visit: No Status: Acute Priority: High Code(s): D64.9 - ANEMIA, UNSPECIFIED SNOMED Code(s): 193426543 (2) Pseudoaneurysm Narrative/Plan: Diagnostic and therapeutic circumstances as noted above. Defer to vascular surgery for continued management Current Visit: Yes Status: Acute Priority: High Code(s): I72.9 - ANEURYSM OF UNSPECIFIED SITE SNOMED Code(s): 60382528 (3) Myelofibrosis Narrative/Plan: The patient has responded well to his regimen, with normalization of his white count and platelets. However hemoglobin has been low, although in a safe range. WBC continues to be normal. Platelets have dropped, likely due to consumption from his bleeding, as well as dilution from transfusion. However they're well within a safe range of greater than 100,000. As long as stated counts are greater than 50,000 the patient can continue on antiplatelet therapy. As noted, the plan is to hold Jakafi while in the hospital, and resume it in the outpatient setting once hemoglobin is noted to be stable Current Visit: Yes Status: Acute Code(s): D75.81 - MYELOFIBROSIS SNOMED Code(s): 61537956
--- NOTE | 2018-04-04 16:14 | P.CNPUL ---
History of Present Illness Consult date: 04/04/18 Chief complaint: Right femoral pseudoaneurysm, postsurgical repair History of present illness: 78-year-old male patient who is currently in the intensive care unit and I was asked to evaluate this patient for ICU management. The patient has coronary artery disease, previous bypass surgery, severe peripheral vascular disease, previous history of nonischemic right lower extremity for which she has undergone a right femoral endarterectomy by vascular surgery. Subsequently, the patient continued to have some ischemic changes right lower extremity and he was brought then by interventional cardiology and he underwent a peripheral angiogram followed by PTCA of the right SFA and the right tibial peritoneal trunk. The approach was from the left, and femoral artery. The patient underwent the procedure and he had good angiographic results. During the day, the patient developed abdominal distention and low blood pressure. Retroperitoneal bleeding was suspected and a CT a of the abdomen and pelvis was done and it showed a large hematoma on the left side consistent with retroperitoneal hemorrhage and the hemorrhage was extending into the left pararenal space. Based on that, the patient underwent a selective left common iliac, external iliac, common femoral angiography using the right common femoral artery approach and multiple injections of the left common iliac artery was done in addition to external iliac artery and a common femoral artery as well. The subsequent angiographic did not reveal any evidence of perforation. At that point the procedure was terminated. In follow-up, the patient developed bleeding from the right femoral area and it was further investigated and the patient was diagnosed having a right femoral artery pseudoaneurysm. Pressure was placed to control the bleeding without success and following that the patient was taken to the operating room by vascular surgery and right groin expiration was done and the right femoral artery pseudoaneurysm was repaired. Estimated blood loss was 50 mL. Postop, the patient was brought back to the intensive care unit and the wound is clean and the patient has a OZZIE drain in place with a wound VAC covering the surface of the wound. Pulses in the lower extremities including dorsalis pedis and posterior tibialis palpable and obtainable by Doppler signal bilaterally. His most recent hemoglobin is 7.8. Note that during the course of the treatment the patient received a total of 5 units of packed RBC. He has a component of mild dysplasia and he has chronic anemia, cytopenia. His most recent plated count is at 121. No respiratory distress. No chest pain. No altered mentation. No other complaints otherwise for now and the patient's hemodynamically stable and producing adequate amount of urine output. I put him on normal state rate of 75 mL an hour. His echo cardiac exam showed a preserved LV function with ejection fraction that was normal and was in order of 50-55%. The patient is known to have evidence of pulmonary hypertension right-sided heart failure. PA pressures were estimated to be 80 mmHg and there was severe tricuspid regurgitation, severe pulmonary hypertension, severe left atrial dilatation and there was also evidence of paradoxic septal motion abnormality consistent with right ventricular volume overload based on echocardiogram that was done on 03/08/2018. Review of Systems Constitutional: Reports weakness, Reports weight loss Eyes: denies blurred vision, denies bulging eye, denies decreased vision Ears: deny: decreased hearing, ear discharge, earache, tinnitus Ears, nose, mouth and throat: Denies headache, Denies sore throat Cardiovascular: Reports as per HPI (Ischemic fourth toe on the right), Reports dyspnea on exertion, Reports shortness of breath Respiratory: Reports dyspnea Gastrointestinal: Reports loss of appetite Genitourinary: Reports as per HPI Musculoskeletal: Denies myalgias Musculoskeletal: bilateral: ankle swelling, absent: ankle pain, ankle stiffness Integumentary: Denies pruritus, Denies rash Neurological: Denies numbness, Denies weakness Psychiatric: Denies anxiety, Denies depression Endocrine: Denies fatigue, Denies weight change Hematologic/Lymphatic: Reports as per HPI Allergic/Immunologic: Reports as per HPI Past Medical History Past Medical History: Blood Disorder, Coronary Artery Disease (CAD), Heart Failure, GERD/Reflux, Hyperlipidemia, Hypertension, Prostate Disorder Additional Past Medical History / Comment(s): History of mild dysplasia, coronary artery disease, previous bypass surgery, right-sided heart failure with severe pulmonary hypertension, acid reflux, hypertension, hyperlipidemia, BPH, peripheral vascular disease with previous history of ischemic right lower extremity and previous right femoral endarterectomy with subsequent vascular intervention as mentioned above. The patient currently has a right foot toe which is ischemic/4rth toe History of Any Multi-Drug Resistant Organisms: Acinetobacter (MDRO) Date of last positivie culture/infection: 11/18/17 MDRO Source:: MDRO ACINETOBACTER SPUTUM Past Surgical History: Coronary Bypass/CABG, Heart Catheterization, Hernia Repair Additional Past Surgical History / Comment(s): Cardiac catheterization on 2013, right femoral artery/common femoral artery endarterectomy, PT be a and balloon angioplasty of right superficial femoral artery on 04/02/2018, and without hernia repair, a medical hernia repair, coronary artery bypass surgery, EGD, colonoscopy Past Anesthesia/Blood Transfusion Reactions: No Reported Reaction Past Psychological History: No Psychological Hx Reported Additional Psychological History / Comment(s): PT LIVES AT HOME WITH HIS , IS INDEPENDANT,RETIRED FROM [employer]. NO HX, Smoking Status: Former smoker Past Alcohol Use History: Occasional Additional Past Alcohol Use History / Comment(s): STARTED SMOKING AT AGE 16 QUIT AT AGE 40 SMOKED 1 1/2 PPD Past Drug Use History: None Reported - Past Family History Brother(s) Family Medical History: Cancer Additional Family Medical History / Comment(s): 2 with lung and 1 with prostate Mother Family Medical History: Myocardial Infarction ([place]) Father Additional Family Medical History / Comment(s): AT AGE 83 FROM "HARDENING OF THE ARTERIES" Medications and Allergies Home Medications Medication Instructions Recorded Confirmed Type Atorvastatin [Lipitor] 40 mg PO HS 09/27/14 04/01/18 History Metoprolol Tartrate [Lopressor] 50 mg PO BID 09/27/14 04/01/18 History Terazosin [Hytrin] 5 mg PO HS 09/27/14 04/01/18 History Enalapril [Vasotec] 5 mg PO DAILY #30 tablet 10/12/14 04/01/18 Rx Pantoprazole [Protonix] 40 mg PO BID 11/12/17 04/01/18 History Spironolactone [Aldactone] 25 mg PO DAILY 11/12/17 04/01/18 History Furosemide [Lasix] 40 mg PO BID #0 11/21/17 04/01/18 Rx Ruxolitinib Phosphate [Jakafi] 25 mg PO BID 02/07/18 04/01/18 History oxyCODONE HCL/ACETAMINOPHEN 1 tab PO Q6HR PRN 03/05/18 04/01/18 History [Endocet 5-325 mg] Rivaroxaban [Xarelto] 15 mg PO W/SUPPER tab 03/09/18 04/01/18 Rx Allergies Allergy/AdvReac Type Severity Reaction Status Date / Time No Known Allergies Allergy Verified 03/27/18 08:55 Physical Exam Vitals: Vital Signs Temp Pulse Pulse Resp BP BP Pulse Ox 04/04/18 15:19 93 19 109/55 93 L 04/04/18 15:18 92 20 109/55 93 L 04/04/18 15:17 93 18 109/55 95 04/04/18 15:16 93 18 109/55 94 L 04/04/18 15:15 93 24 04/04/18 15:14 92 21 04/04/18 15:13 92 22 04/04/18 15:03 93 16 123/59 97 04/04/18 14:49 93 16 138/65 100 04/04/18 14:34 97 F L 93 18 136/61 100 04/04/18 14:28 99/44 04/04/18 14:27 99/44 04/04/18 14:26 99/44 04/04/18 14:25 99/44 04/04/18 14:24 99/44 04/04/18 14:23 99/44 04/04/18 14:22 99/44 04/04/18 14:21 99/44 04/04/18 14:20 99/44 04/04/18 14:19 99/44 04/04/18 14:18 99/44 04/04/18 14:17 99/44 04/04/18 14:16 99/44 04/04/18 14:15 99/44 04/04/18 14:14 99/44 04/04/18 14:13 99/44 04/04/18 14:12 99/44 04/04/18 14:11 99/44 04/04/18 14:10 99/44 04/04/18 14:09 99/44 04/04/18 14:08 99/44 04/04/18 14:07 99/44 04/04/18 14:06 99/44 04/04/18 14:05 99/44 04/04/18 14:04 99/44 04/04/18 14:03 99/44 04/04/18 14:02 99/44 04/04/18 14:01 99/44 04/04/18 14:00 99/44 04/04/18 13:59 99/44 04/04/18 13:58 99/44 04/04/18 13:57 99/44 04/04/18 13:56 99/44 /11/21 13:55 99/44 06/18 13:54 99/44 04/04/18 13:53 99/44 04/04/18 13:52 99/44 04/04/18 13:51 99/44 04/04/18 13:50 99/44 04/04/18 13:49 99/44 04/04/18 13:48 99/44 04/04/18 13:47 99/44 04/04/18 13:46 99/44 04/04/18 13:15 99/44 04/04/18 13:00 99/44 04/04/18 12:45 99/44 04/04/18 12:30 96 20 99/44 96 04/04/18 12:15 72 15 113/52 98 04/04/18 12:00 98.7 F 72 20 113/52 98 04/04/18 11:45 95 22 113/52 97 04/04/18 11:30 73 20 113/52 98 04/04/18 11:15 71 18 108/48 97 04/04/18 11:00 71 19 108/48 97 04/04/18 10:45 71 20 108/48 96 04/04/18 10:30 71 23 108/48 97 04/04/18 10:15 71 15 91/46 97 04/04/18 10:00 71 14 91/46 95 04/04/18 09:45 71 14 91/46 96 04/04/18 09:30 84 19 91/46 96 04/04/18 09:15 95 24 103/53 96 04/04/18 09:00 95 17 103/53 97 04/04/18 08:00 98.6 F 94 15 107/48 96 04/04/18 07:00 79 17 113/48 95 04/04/18 06:00 72 16 90/44 96 18 05:00 72 16 111/50 94 L 04/04/18 04:00 98.9 F 71 19 106/48 97 18 03:00 71 17 108/52 96 18 02:00 71 17 93/48 95 04/04/18 01:00 70 13 104/51 96 04/04/18 00:00 98.9 F 90 26 H 117/52 96 05/31/18 23:00 85 28 H 113/62 97 04/03/18 22:00 72 14 136/68 96 04/03/18 21:31 73 12 96 04/03/18 21:00 95 20 140/56 96 04/03/18 20:00 99.1 F 72 19 131/55 97 04/03/18 19:00 81 18 108/47 04/03/18 18:00 73 25 H 134/60 04/03/18 17:00 93 15 128/63 99 Intake and Output 04/04/18 04/04/18 04/04/18 06:59 14:59 22:59 Intake Total 800 70 Output Total 625 500 Balance -625 300 70 Intake: IV 400 50 Intake, IV Titration 20 Amount Lactated Ringers 1,000 ml 20 As IV .[facility] Rx#: [id number] Oral 400 Output: Urine 625 450 Estimated Blood Loss 50 Other: Voiding Method Urinal Urinal Weight 73.2 kg 73.2 kg Gen. appearance the patient, comfortable likely distress Head exam was generally normal. There was no scleral icterus or corneal arcus. Mucous membranes were moist. Neck was supple and without jugular venous distension, thyromegaly, or carotid bruits. Carotids were easily palpable bilaterally. There was no adenopathy. Lungs were clear to auscultation and percussion, and with normal diaphragmatic excursion. No wheezes or rales were noted. Heart sounds are regular rhythm normal S1-S2 and there is no significant murmurs appreciated. Sternum stable clean and intact. Abdominal exam revealed normal bowel sounds. The abdomen was soft, non-tender, and without masses, organomegaly, or appreciable enlargement of the abdominal aorta. Extremities show diminished pulses in lower extremity is bilaterally involving the dorsalis pedis and the posterior tibialis. The extremities are warm and the feet are warm and there is a chronic ischemic right foot fourth toe. The patient has a clean right groin wound with a OZZIE drain in place and a appropriate wound VAC is also placed to cover the surface of the wound. There is a soft hematoma in the left groin area with some areas of ecchymosis. There is no evidence of any thigh swelling. No cyanosis. No clubbing. Neurologic the patient is intact and the patient is awake and alert and there is no focal neurological deficits. Results - Laboratory Findings CBC and BMP: 04/04/18 04:49 04/04/18 04:49 PT/INR, D-dimer PT 12.1 sec (9.0-12.0) H 04/04/18 11:56 INR 1.3 (<1.2) H 04/04/18 11:56 Abnormal lab findings: Abnormal Labs 04/01/18 04/01/18 04/01/18 11:15 12:54 14:41 RBC 2.01 L Hgb 5.6 L* D Hct 17.8 L* RDW 27.2 H Plt Count Neutrophils # (Manual) Lymphocytes # (Manual) Metamyelocytes # (Man) 0.63 H Myelocytes # (Manual) 0.55 H Promyelocytes # (Man) 0.08 H Blast Cells # (Man) 0.08 H Nucleated RBCs 1 H PT INR Sodium Carbon Dioxide BUN Glucose POC Glucose (mg/dL) 117 H Calcium Crossmatch See Detail 04/01/18 04/01/18 04/02/18 20:15 20:15 06:25 RBC 2.26 L Hgb 6.2 L* Hct 19.7 L* RDW 24.3 H Plt Count 148 L Neutrophils # (Manual) Lymphocytes # (Manual) Metamyelocytes # (Man) 0.17 H Myelocytes # (Manual) 1.36 H Promyelocytes # (Man) Blast Cells # (Man) 0.09 H Nucleated RBCs 4 H PT INR Sodium 135 L 135 L Carbon Dioxide 21 L 20 L BUN 38 H 32 H Glucose 126 H POC Glucose (mg/dL) Calcium 8.1 L 8.1 L Crossmatch 04/02/18 04/02/18 04/03/18 06:25 18:28 04:10 RBC 2.61 L 2.64 L 2.36 L Hgb 7.8 L D 7.7 L 6.9 L* Hct 22.9 L 22.7 L 20.5 L RDW 22.4 H 22.8 H 22.8 H Plt Count 128 L 127 L Neutrophils # (Manual) 8.40 H Lymphocytes # (Manual) Metamyelocytes # (Man) 0.38 H Myelocytes # (Manual) 0.20 H 0.50 H Promyelocytes # (Man) 0.06 H Blast Cells # (Man) 0.10 H 0.06 H Nucleated RBCs 4 H 4 H PT INR Sodium Carbon Dioxide BUN Glucose POC Glucose (mg/dL) Calcium Crossmatch 04/03/18 04/03/18 04/04/18 04:10 16:25 00:15 RBC 2.64 L 2.67 L Hgb 7.8 L 7.8 L Hct 23.0 L 23.4 L RDW 22.3 H 22.1 H Plt Count 120 L 116 L Neutrophils # (Manual) Lymphocytes # (Manual) 0.71 L Metamyelocytes # (Man) 0.30 H 0.24 H Myelocytes # (Manual) 0.06 H Promyelocytes # (Man) Blast Cells # (Man) Nucleated RBCs 5 H 5 H PT INR Sodium Carbon Dioxide BUN 27 H Glucose POC Glucose (mg/dL) Calcium 8.3 L Crossmatch 04/04/18 04/04/18 04/04/18 04:49 04:49 11:56 RBC 2.62 L Hgb 7.8 L Hct 23.1 L RDW 22.6 H Plt Count 121 L Neutrophils # (Manual) Lymphocytes # (Manual) 0.58 L Metamyelocytes # (Man) 0.42 H Myelocytes # (Manual) 0.05 H Promyelocytes # (Man) Blast Cells # (Man) 0.05 H Nucleated RBCs 3 H PT 12.1 H INR 1.3 H Sodium 135 L Carbon Dioxide BUN Glucose POC Glucose (mg/dL) Calcium Crossmatch Assessment and Plan Plan: Assessment 1 right femoral pseudoaneurysm repair/resection, patient is postop day #1. 2 right SFA POLE CLASSIFIER wasn't, patient is postop day #2 3 left retroperitoneal hematoma following vascular intervention and access nvolving left femoral artery 4 profound blood loss anemia, status post transfusion with a total of 5 units of packed RBC and hemoglobin is up to 7.8 5 history of ischemic right lower extremity, critical stenosis secondary to severe vascular disease 6 coronary artery disease with previous bypass surgery 7 CHF essentially of a right-sided failure with severe pulmonary hypertension and chronic lower extremity edema 8 COPD currently inactive in stable 9 myelodysplasia with bicytopenia, the patient has chronic baseline anemia and thrombocytopenia 10 BPH 11 hyperlipidemia 12 hypertension 13 previous history of acinetobacter in the sputum Plan Monitor hematologic profile. Monitor the pulse sedation and circulation the right lower extremity on the left lower extremity. Monitor left groin hematoma. Monitor the surgical wound in the right. Monitor the drainage from the OZZIE drain. Monitor hemodynamics. Hydrate this patient with 75 mL of normal saline. Continue dual antiplatelet agents including the combination of aspirin and Plavix. Outpatient medication will resume. Keep the wound VAC in place. We'll continue to follow. Keep the patient ICU for now.
[2018-04-04] MEDS: SODIUM CHLORIDE 0.9% 1,000 ML IV SCH (17:13)
[2018-04-04] MEDS: DILTIAZEM 50 MG in SODIUM CHLORIDE 0.9% 40 ML IV SCH (18:48)
--- NOTE | 2018-04-04 18:54 | CONS ---
CONSULTATION ATTENDING PHYSICIAN: Dr. Britton. CONSULTING PHYSICIAN: Dr. Belia Franklin. REASON FOR CONSULTATION: Medical management. HISTORY OF PRESENT ILLNESS: This is a 78-year-old gentleman who was admitted to the hospital for peripheral arterial disease with significant pain in the right foot. The patient is noted to have significant atherosclerosis. In view of this, Dr. Britton took the patient in and had angioplasty done. The patient had an ischemic right foot. MMODL / IJN: [id number] /
--- NOTE | 2018-04-04 19:03 | CONS ---
CONSULTATION ATTENDING PHYSICIAN: Dr. Britton. CONSULTING PHYSICIAN: Dr. Belia Franklin. CONSULTATION: Regarding medical management. HISTORY OF PRESENT ILLNESS: This 78-year-old gentleman was admitted to the facility and underwent right leg revascularization. The patient has significant peripheral arterial disease with a right ischemic foot. The patient, in view of this, underwent an angioplasty. He has had a previous femoral surgery by the vascular surgeons. The patient postsurgery had a significant blood drop, doing well. However, he had received some blood. The patient has underlying history of myelodysplastic syndrome/myeloproliferative disorder. He had been transfused blood initially; however, the patient did continue drop in hemoglobin, 2 days ago underwent a CT scan of the abdomen and revealed a significant amount of retroperitoneal hemorrhage. The patient had a large left-sided retroperitoneal hemorrhage that was extending into the left pararenal space. There was no evidence of renal obstruction, though. The patient was also noted to have mild splenomegaly on the CT scan and right inguinal area consistent with a small hematoma. The patient had an angiogram done, confirming the retroperitoneal hematoma. The patient's procedure was successful arthrectomy and balloon angioplasty of the right superficial femoral artery as well as the right peroneal artery and right tibioperoneal trunk with good angiographic results. This was on 04/01/2018. The patient yesterday had further evaluation and there was suggestion of a pseudoaneurysm in the right groin. The FemoStop was in place. There was no AV shunting. This was addressed by the vascular surgeon. The patient has an excellent dorsalis pedis signal and is also palpable. Posterior tibial signal is very faint. PAST MEDICAL HISTORY: Significant for peripheral arterial disease with generalized atherosclerosis affecting both lower legs. The patient is an ex-smoker. The patient also has had a history of coronary artery disease with CABG, history of hypertension, history of myeloproliferative disorder with thrombocytosis and leukocytosis. The patient also has had anemia. 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 He was supposed to have some surgical intervention prior to this; however, because of all these other complications of his peripheral arterial disease, the patient's esophageal procedure has been kept on hold. History of BPH. No history of any liver disease. The patient does have a splenomegaly due to his myeloproliferative disorder. PAST SURGICAL HISTORY: Significant for right and left leg stenting and CABG. PERSONAL HISTORY: Ex-smoker, used to smoke a pack per day for over 40 years. Alcohol: None at present. Patient has a history of alcohol use. SOCIAL HISTORY: Patient is , lives with his spouse. FAMILY MEDICAL HISTORY: Patient has one daughter, adopted. REVIEW OF SYSTEMS: NEURO: Denies any headaches, dizziness. PSYCH: No anxiety, depression. CARDIAC: No chest pain, angina, palpitation. RESPIRATORY: Denies shortness of breath, but he is using oxygen. Denies any cough, hemoptysis. GI: No nausea, vomiting, abdominal pain, diarrhea. : No symptoms of dysuria, hematuria. EXTREMITIES: Pain, right foot. CONSTITUTIONAL: No fever or chills. HEMATOLOGICAL: Known anemia and thrombocytosis. MUSCULOSKELETAL: Chronic tolerable arthritic pain. ENT: Decreased hearing, adequate vision. PHYSICAL EXAMINATION: Pleasant gentleman in no distress. Vital signs revealed a heart rate of 72, afebrile, respiratory rate 16, blood pressure 110/70. HEENT: Normocephalic. Conjunctivae pale. Sclerae nonicteric. Neck is no JVD. No carotid bruits appreciated. Decreased range of motion. No thyromegaly. Chest reveals generalized decreased air flow, increased percussion. Cardiac reveals distant sounds S1, S2 with no gallop. Systolic murmur 2/6 left sternal border. ABDOMEN: Soft. Bowel sounds are active. No organomegaly appreciated. Spleen nonpalpable. Extremities reveal trace edema right foot. The patient's right 4th toe midway has some gangrenous skin changes, partial area. The patient's foot is less sensitive to touch now than it used to be before. Left foot: Decreased pedal pulses. NEUROLOGICALLY: Awake, alert, oriented x3 with well-coordinated movements. LABORATORY ASSESSMENT: Hemoglobin 7.8, white count 5.3, platelets 121. INR 1.3. Electrolytes, BUN, creatinine normal. ASSESSMENT: 1. Anemia secondary to acute blood loss and history of myeloproliferative disorder. 2. Coronary artery disease, stable. 3. Atrial fibrillation/flutter. 4. Peripheral arterial disease. PLAN: Continue present medical regimen. Patient's condition discussed with the patient. Prognosis remains guarded. The patient's general condition is stable. The patient's condition discussed with the patient. MMODL / IJN: [id number] /
[2018-04-04] MEDS: ATORVASTATIN 40 MG TAB PO SCH (20:29)
[2018-04-04] MEDS: DOXAZOSIN 4 MG TAB PO SCH (21:49)
[2018-04-05] MEDS: oxyCODONE-APAP 5-325MG 1 EACH TAB PO PRN ×4 (00:21→20:20)
[2018-04-05] MEDS: METOPROLOL TARTRATE 50 MG TAB PO SCH ×3 (03:05→20:20)
[2018-04-05] MEDS: DILTIAZEM 50 MG in SODIUM CHLORIDE 0.9% 40 ML IV SCH (04:59)
[2018-04-05 05:00] LABS: Anion Gap 9 mmol/L; Blood Urea Nitrogen 19 mg/dL (9-20); Calcium 8.1 mg/dL (8.4-10.2); Carbon Dioxide 23 mmol/L (22-30); Chloride 103 mmol/L (98-107); Glucose 104 mg/dL (74-99); Magnesium 1.7 mg/dL (1.6-2.3); Potassium 4.4 mmol/L (3.5-5.1); Sodium 135 mmol/L (137-145)
[2018-04-05 05:02] LABS: Anisocytosis Moderate; Basophils # (A) 0.1 k/uL (0-0.2); Basophils % (A) 2 %; Eosinophils % (A) 1 %; HCT 20.8 % (39.0-53.0); Lymphocytes # (A) 0.5 k/uL (1.0-4.8); Lymphocytes % (A) 10 %; MCH 29.4 pg (25.0-35.0); MCHC 32.8 g/dL (31.0-37.0); MCV 89.9 fL (80.0-100.0); Macrocytosis Slight; Mean Platelet Volume 8.9; Monocytes # (A) 0.3 k/uL (0-1.0); Monocytes % (A) 5 %; Neutrophils % (A) 78 %; Platelet Count 103 k/uL (150-450); Poikilocytosis Slight; RBC 2.31 m/uL (4.30-5.90); RDW 22.3 % (11.5-15.5); WBC 5.1 k/uL (3.8-10.6)
[2018-04-05 05:11] LABS: HGB 6.8 gm/dL (13.0-17.5)
[2018-04-05] MEDS ORDERED: Magnesium Replacement Protocol 1 EACH MISC MISCELLANE PRN (05:15)
[2018-04-05] MEDS: SODIUM CHLORIDE 0.9% 1,000 ML IV SCH ×2 (05:47→10:45)
[2018-04-05] MEDS: MAGNESIUM SULFATE-D5W PMX 1 GM in DEXTROSE/WATER 1 100ML.BAG IVPB SCH ×2 (05:47→08:34)
[2018-04-05 06:07] LABS: Anisocytosis (M) Present; Poikilocytosis (M) Present
--- NOTE | 2018-04-05 08:25 | P.PN ---
Subjective Progress Note Date: 04/05/18 Principal diagnosis: Right femoral artery pseudoaneurysm resolved Overnight patient states he's been feeling much better. Pain in the right groin has subsided since the surgery. He still is complaining of pain in his right foot and toes especially when cold. He denies any fevers, chills, chest pain or shortness of breath. He does state he is feeling fatigue. Per nursing OZZIE drain has drained only 10 mL since yesterday and dressing has been dry. Objective - Vital Signs Vital signs: Vital Signs Temp 98.2 F 04/05/18 04:00 Pulse 70 04/05/18 07:00 Resp 21 04/05/18 07:00 BP 95/45 04/05/18 07:00 Pulse Ox 97 04/05/18 07:00 Intake & Output 04/04/18 04/05/18 04/05/18 18:59 06:59 18:59 Intake Total 1095 1115.083 75 Output Total 750 860 Balance 345 255.083 75 Weight 73.2 kg 74.2 kg Intake: IV 675 900 75 0.9 NACL 225 900 75 Intake, IV Titration 20 15.083 Amount Diltiazem 50 mg In Sodium 15.083 Chloride 0.9% 40 ml @ 5 MG/HR 5 mls/hr IV .Q10H [facility] Rx#:[id number] Lactated Ringers 1,000 ml 20 As IV .[facility] Rx#: [id number] Oral 400 200 Output: Drainage 10 Right Groin 10 Urine 700 850 Estimated Blood Loss 50 Other: Voiding Method Urinal Urinal ABP, PAP, CO, CI - Last Documented Arterial Blood Pressure 99/40 - Exam Right groin dressing VAC is intact without any significant drainage. Right OZZIE drain has dark sanguinous drainage approximately 10 mL. Palpable right femoral pulse noted. Good capillary refill at the foot and toes. Right foot is warm. Left groin with induration noted and mild tenderness to palpation. No increase in size of indurated area since last exam. - Constitutional General appearance: Present: cooperative, no acute distress - EENT Eyes: Present: PERRLA - Neck Neck: Present: normal ROM - Respiratory Respiratory: bilateral: CTA - Cardiovascular Rhythm: regular - Neurologic Neurologic: Absent: focal deficits - Psychiatric Psychiatric: Present: A&O x's 3, appropriate affect - Labs CBC & Chem 7: 04/05/18 04:27 04/05/18 04:27 Labs: Abnormal Lab Results - Last 24 Hours (Table) 04/01/18 04/04/18 04/05/18 Range/Units 12:54 11:56 04:27 RBC 2.31 L (4.30-5.90) m/uL Hgb 6.8 L* (13.0-17.5) gm/dL Hct 20.8 L (39.0-53.0) % RDW 22.3 H (11.5-15.5) % Plt Count 103 L (150-450) k/uL Lymphocytes # 0.5 L (1.0-4.8) k/uL PT 12.1 H (9.0-12.0) sec INR 1.3 H (<1.2) Sodium (137-145) mmol/L Glucose (74-99) mg/dL Calcium (8.4-10.2) mg/dL Crossmatch See Detail 04/05/18 Range/Units 04:27 RBC (4.30-5.90) m/uL Hgb (13.0-17.5) gm/dL Hct (39.0-53.0) % RDW (11.5-15.5) % Plt Count (150-450) k/uL Lymphocytes # (1.0-4.8) k/uL PT (9.0-12.0) sec INR (<1.2) Sodium 135 L (137-145) mmol/L Glucose 104 H (74-99) mg/dL Calcium 8.1 L (8.4-10.2) mg/dL Crossmatch Assessment and Plan (1) Pseudoaneurysm Current Visit: Yes Status: Acute Priority: High Code(s): I72.9 - ANEURYSM OF UNSPECIFIED SITE SNOMED Code(s): 69343655 (2) Anemia Current Visit: No Status: Acute Priority: High Code(s): D64.9 - ANEMIA, UNSPECIFIED SNOMED Code(s): 664767219 Plan: Removed OZZIE drain and resecured incisional VAC. The incisional VAC is to stay in place 5 days at which point it can be removed. Continue current care and management. Monitor hemoglobin and transfuse as needed. Okay to increase activity. Recommend physical therapy to help with ambulation.
[2018-04-05] MEDS: ASPIRIN 81 MG PO SCH (08:40)
[2018-04-05] MEDS: LISINOPRIL 5 MG TAB PO SCH (08:40)
[2018-04-05] MEDS: PANTOPRAZOLE 40 MG TABLET PO SCH ×2 (08:40→15:36)
[2018-04-05] MEDS: CLOPIDOGREL 75 MG TAB PO SCH (08:40)
[2018-04-05] MEDS: FUROSEMIDE 40 MG TAB PO SCH ×2 (08:40→15:36)
[2018-04-05] MEDS: SPIRONOLACTONE 25 MG TAB PO SCH (08:41)
--- NOTE | 2018-04-05 12:25 | P.PN ---
Subjective Progress Note Date: 04/05/18 78-year-old male patient who is currently in the intensive care unit and I was asked to evaluate this patient for ICU management. The patient has coronary artery disease, previous bypass surgery, severe peripheral vascular disease, previous history of nonischemic right lower extremity for which she has undergone a right femoral endarterectomy by vascular surgery. Subsequently, the patient continued to have some ischemic changes right lower extremity and he was brought then by interventional cardiology and he underwent a peripheral angiogram followed by PTCA of the right SFA and the right tibial peritoneal trunk. The approach was from the left, and femoral artery. The patient underwent the procedure and he had good angiographic results. During the day, the patient developed abdominal distention and low blood pressure. Retroperitoneal bleeding was suspected and a CT a of the abdomen and pelvis was done and it showed a large hematoma on the left side consistent with retroperitoneal hemorrhage and the hemorrhage was extending into the left pararenal space. Based on that, the patient underwent a selective left common iliac, external iliac, common femoral angiography using the right common femoral artery approach and multiple injections of the left common iliac artery was done in addition to external iliac artery and a common femoral artery as well. The subsequent angiographic did not reveal any evidence of perforation. At that point the procedure was terminated. In follow-up, the patient developed bleeding from the right femoral area and it was further investigated and the patient was diagnosed having a right femoral artery pseudoaneurysm. Pressure was placed to control the bleeding without success and following that the patient was taken to the operating room by vascular surgery and right groin expiration was done and the right femoral artery pseudoaneurysm was repaired. Estimated blood loss was 50 mL. Postop, the patient was brought back to the intensive care unit and the wound is clean and the patient has a OZZIE drain in place with a wound VAC covering the surface of the wound. Pulses in the lower extremities including dorsalis pedis and posterior tibialis palpable and obtainable by Doppler signal bilaterally. His most recent hemoglobin is 7.8. Note that during the course of the treatment the patient received a total of 5 units of packed RBC. He has a component of mild dysplasia and he has chronic anemia, cytopenia. His most recent plated count is at 121. No respiratory distress. No chest pain. No altered mentation. No other complaints otherwise for now and the patient's hemodynamically stable and producing adequate amount of urine output. I put him on normal state rate of 75 mL an hour. His echo cardiac exam showed a preserved LV function with ejection fraction that was normal and was in order of 50-55%. The patient is known to have evidence of pulmonary hypertension right-sided heart failure. PA pressures were estimated to be 80 mmHg and there was severe tricuspid regurgitation, severe pulmonary hypertension, severe left atrial dilatation and there was also evidence of paradoxic septal motion abnormality consistent with right ventricular volume overload based on echocardiogram that was done on 03/08/2018. On today's evaluation of 04/05/2018, the patient is looking much better. Is awake and alert and stable and neurovascularly intact in lower extremities. He is complaining of some pain in the right foot especially in his stool. No open wounds or sores. There is some ischemic changes in the fourth toe on the right foot. Hemoglobin was at 6.8 and we opted not to give any blood. OZZIE drain is in place and is draining only 10 mL over the past 8-12 hours. No chest pain. Respiratory distress. Hemodynamically stable. No other significant events overnight. He is afebrile. Pulse ox is 97% on room air. Objective - Vital Signs Vital signs: Vital Signs Temp 98.2 F 04/05/18 12:02 Pulse 81 04/05/18 12:02 Resp 16 04/05/18 12:02 BP 127/67 04/05/18 12:02 Pulse Ox 98 04/05/18 12:02 Intake & Output 04/04/18 04/05/18 04/05/18 18:59 06:59 18:59 Intake Total 1095 1115.083 275 Output Total 750 860 50 Balance 345 255.083 225 Weight 73.2 kg 74.2 kg Intake: IV 675 900 275 0.9 NACL 225 900 275 Intake, IV Titration 20 15.083 Amount Diltiazem 50 mg In Sodium 15.083 Chloride 0.9% 40 ml @ 5 MG/HR 5 mls/hr IV .Q10H [facility] Rx#:[id number] Lactated Ringers 1,000 ml 20 As IV .[facility] Rx#: [id number] Oral 400 200 Output: Drainage 10 Right Groin 10 Urine 700 850 50 Estimated Blood Loss 50 Other: Voiding Method Urinal Urinal Urinal # Voids 0 ABP, PAP, CO, CI - Last Documented Arterial Blood Pressure 99/40 - Exam Gen. appearance the patient, comfortable likely distress Head exam was generally normal. There was no scleral icterus or corneal arcus. Mucous membranes were moist. Neck was supple and without jugular venous distension, thyromegaly, or carotid bruits. Carotids were easily palpable bilaterally. There was no adenopathy. Lungs were clear to auscultation and percussion, and with normal diaphragmatic excursion. No wheezes or rales were noted. Heart sounds are regular rhythm normal S1-S2 and there is no significant murmurs appreciated. Sternum stable clean and intact. Abdominal exam revealed normal bowel sounds. The abdomen was soft, non-tender, and without masses, organomegaly, or appreciable enlargement of the abdominal aorta. Extremities show diminished pulses in lower extremity is bilaterally involving the dorsalis pedis and the posterior tibialis. The extremities are warm and the feet are warm and there is a chronic ischemic right foot fourth toe. The patient has a clean right groin wound with a OZZIE drain in place and a appropriate wound VAC is also placed to cover the surface of the wound. There is a soft hematoma in the left groin area with some areas of ecchymosis. There is no evidence of any thigh swelling. No cyanosis. No clubbing. Neurologic the patient is intact and the patient is awake and alert and there is no focal neurological deficits. - Labs CBC & Chem 7: 04/05/18 04:27 04/05/18 04:27 Labs: Abnormal Lab Results - Last 24 Hours (Table) 04/01/18 04/04/18 04/05/18 Range/Units 12:54 11:56 04:27 RBC 2.31 L (4.30-5.90) m/uL Hgb 6.8 L* (13.0-17.5) gm/dL Hct 20.8 L (39.0-53.0) % RDW 22.3 H (11.5-15.5) % Plt Count 103 L (150-450) k/uL Lymphocytes # 0.5 L (1.0-4.8) k/uL PT 12.1 H (9.0-12.0) sec INR 1.3 H (<1.2) Sodium (137-145) mmol/L Glucose (74-99) mg/dL Calcium (8.4-10.2) mg/dL Crossmatch See Detail 04/05/18 Range/Units 04:27 RBC (4.30-5.90) m/uL Hgb (13.0-17.5) gm/dL Hct (39.0-53.0) % RDW (11.5-15.5) % Plt Count (150-450) k/uL Lymphocytes # (1.0-4.8) k/uL PT (9.0-12.0) sec INR (<1.2) Sodium 135 L (137-145) mmol/L Glucose 104 H (74-99) mg/dL Calcium 8.1 L (8.4-10.2) mg/dL Crossmatch Assessment and Plan Plan: Assessment 1 right femoral pseudoaneurysm repair/resection, patient is postop day #2 2 right SFA [employer] wasn't, patient is postop day #3 3 left retroperitoneal hematoma following vascular intervention and access nvolving left femoral artery 4 profound blood loss anemia, status post transfusion with a total of 5 units of packed RBC and hemoglobin is up to 6.8 5 history of ischemic right lower extremity, critical stenosis secondary to severe vascular disease 6 coronary artery disease with previous bypass surgery 7 CHF essentially of a right-sided failure with severe pulmonary hypertension and chronic lower extremity edema 8 COPD currently inactive in stable 9 myelodysplasia with bicytopenia, the patient has chronic baseline anemia and thrombocytopenia 10 BPH 11 hyperlipidemia 12 hypertension 13 previous history of acinetobacter in the sputum Plan Monitor hematologic profile. Monitor hemoglobin. No blood transfusion for today. Remove OZZIE drain and a secure the wound VAC/incisional VAC. Monitor the pulses in lower extremities. Transfer this patient to a medical floor with telemetry.
[2018-04-05] MEDS: ATORVASTATIN 40 MG TAB PO SCH (20:20)
[2018-04-05] MEDS: DOXAZOSIN 4 MG TAB PO SCH (20:20)
--- NOTE | 2018-04-05 21:27 | PN ---
PROGRESS NOTE Mr. Burk is doing better today. His hemoglobin is 6.9. He is comfortable resting. He had a repair of pseudoaneurysm yesterday. His pain in the leg is better. The pulses are palpable in the feet. S1, S2 heard normally. Short systolic murmur audible at the base. Lungs reveal improved air entry. Abdomen is soft, nontender. Lower extremities that distal dorsalis pedis pulses are palpable. There is still some pain, but there is a lot of improvement in the pain overall. Hemoglobin is relatively stable. Given the fact he had surgery today, we will do another hemoglobin tomorrow. If it remains less than 7, we will consider transfusion. Discussed with the patient. MMODL / IJN: [id number] /
--- NOTE | 2018-04-05 23:48 | PN ---
PROGRESS NOTE ATTENDING PHYSICIAN: Dr. Britton. CONSULTING PHYSICIAN: Dr. Belia Franklin. CHIEF COMPLAINT: Re-evaluation. HISTORY OF PRESENT ILLNESS: This is a 78-year-old gentleman who was admitted to the hospital and underwent peripheral arterial revascularization. The patient had a pseudoaneurysm in the right groin which has been repaired. The patient also had a retroperitoneal hematoma. The patient is being monitored for the same. The patient's hemoglobin was 6.8 today. No evidence of any hemodynamic instability. The patient's right foot pain continues, but it is feeling somewhat better. His right 4th toe on the top with a small patch of eschar, sensitive toe. The patient does have a good dorsalis pedis pulse by Doppler. REVIEW OF SYSTEMS: NEURO: Denies any headaches, dizziness. PSYCH: No anxiety. CARDIAC: No chest pain, angina, palpitations. The patient did have episodes of atrial fib/flutter, rapid rate yesterday which is resolved. GI: Denies any nausea, vomiting, abdominal pain, diarrhea. No bowel movement. : No symptoms of dysuria, hematuria. EXTREMITIES: Pain in right foot. CONSTITUTIONAL: No fever, chills. PHYSICAL EXAMINATION: Pleasant gentleman in no distress. Vital signs reveal temperature recorded earlier was 98.2, pulse in the 70s, respirations in the 20 range, blood pressure 118/55. HEENT: Normocephalic. NECK: No JVD. CHEST: Clear to auscultation with mild generalized decreased air flow. CARDIAC: Distant heart sounds. S1, S2 with no gallops. Irregular rhythm. Systolic murmur 2/6 at the left sternal border. ABDOMEN: Soft. Bowel sounds present. Extremities reveal trace edema, right foot. The patient's 4th toe has a small patch of eschar. No other ulcerations on the feet. Foot is sensitive to touch. The foot is warmer. NEUROLOGICALLY: Awake, alert, oriented x3 with well-coordinated movements. LABORATORY ASSESSMENT: CBC which showed hemoglobin of 6.8, platelets of 103. Sodium 135, normal renal function, glucose was 104. Calcium 8.1. ASSESSMENT: 1. Atrial fibrillation/flutter. 2. Hypertension, controlled. 3. Coronary artery disease, stable. 4. Peripheral artery disease post surgery. 5. Anemia secondary to acute blood loss and chronic anemia related to myeloproliferative disorder. 6. Thrombocytopenia. PLAN: The patient is stable. Continue present medical regimen. Patient's condition is stable. Discussed condition with Dr. Moreno from the ICU physician and Dr. Pelayo from cardiology. The patient should be able to be transferred back to the medical floor. FRITZ / HAYDE: [id number] /
[2018-04-06] MEDS: SODIUM CHLORIDE 0.9% 1,000 ML IV SCH ×2 (01:17→15:18)
[2018-04-06] MEDS: oxyCODONE-APAP 5-325MG 1 EACH TAB PO PRN ×6 (01:17→23:33)
[2018-04-06] MEDS: PANTOPRAZOLE 40 MG TABLET PO SCH ×2 (06:12→16:11)
[2018-04-06 06:25] LABS: Anion Gap 8 mmol/L; Blood Urea Nitrogen 22 mg/dL (9-20); Calcium 7.7 mg/dL (8.4-10.2); Carbon Dioxide 23 mmol/L (22-30); Chloride 105 mmol/L (98-107); Glucose 96 mg/dL (74-99); Potassium 4.1 mmol/L (3.5-5.1); Sodium 136 mmol/L (137-145)
[2018-04-06 06:29] LABS: Anisocytosis Moderate; MCH 29.6 pg (25.0-35.0); MCV 89.8 fL (80.0-100.0); Macrocytosis Slight; Mean Platelet Volume 9.2; Platelet Count 90 k/uL (150-450); Poikilocytosis Slight; RBC 2.22 m/uL (4.30-5.90); RDW 22.7 % (11.5-15.5); WBC 4.8 k/uL (3.8-10.6)
[2018-04-06 06:34] LABS: HCT 19.9 % (39.0-53.0); HGB 6.6 gm/dL (13.0-17.5)
[2018-04-06 07:55] LABS: Band Neutrophils % 3 %; Eosinophils # (M) 0.05 k/uL (0-0.7); Lymphocytes # (M) 0.67 k/uL (1.0-4.8); Metamyelocytes # (M) 0.19 k/uL (0); Metamyelocytes % 4 %; Monocytes # (M) 0.29 k/uL (0-1.0); Myelocytes # (M) 0.05 k/uL (0); Myelocytes % 1 %; Neutrophils % (M) 73 %; Nucleated Red Blood Cells 1 /100 WBC (0-0); Polychromasia Present; Total Cells Counted 200
[2018-04-06 07:56] LABS: Ovalocytes Present; Toxic Granulation Present
[2018-04-06] MEDS: ASPIRIN 81 MG PO SCH (08:20)
[2018-04-06] MEDS: CLOPIDOGREL 75 MG TAB PO SCH (08:20)
--- NOTE | 2018-04-06 09:15 | PN ---
PROGRESS NOTE ATTENDING PHYSICIAN: Dr. Britton. CONSULTING PHYSICIAN: Dr. Jerica Franklin. CHIEF COMPLAINT: Re-evaluation. HISTORY OF PRESENT ILLNESS: A 78-year-old gentleman admitted to the hospital and undergone a vascular procedure on the right leg. The patient has improved circulation for ischemic foot. The patient has faintly palpable dorsalis pedis and strong pulse signal on Doppler. The patient has a Doppler signal. He is feeling better, though every time he sits up to eat his breakfast, etc., he gets diaphoretic, feels weak and faintish. REVIEW OF SYSTEMS: NEURO: Denies any headaches, some postural dizziness. Psych: No anxiety, depression. Cardiac: No chest pain, angina or palpitation. Respiratory: No shortness of breath, cough. GI: No nausea, vomiting, abdominal pain, diarrhea. No bowel movement. : No symptoms of dysuria, hematuria. Extremities: Pain in the right foot. Constitutional: No fever or chills. PHYSICAL EXAMINATION: Pleasant 78-year-old at present in no distress. Vital signs reveals temperature recorded earlier was 98.9, pulse 94, respirations 18, blood pressure 95/52. HEENT: Normocephalic. NECK: No JVD. CHEST EXAMINATION: Decreased mild decreased air flow at the right base. CARDIAC: Distant heart sounds S1, S2 with no gallops. Systolic murmur 2/6 left sternal border. Irregular rhythm. ABDOMEN: Soft. Bowel sounds present. EXTREMITIES: Reveal trace edema right lower leg. Patient has a faintly palpable pedal pulse both feet. Has adequate Doppler signals. The right 4th toe on the top has some necrotic tissue with foul odor. No drainage. Some pain with movements. There is some mottling at the ball of the right foot at the base of the toes. The foot is warm. The patient actually appears to be more improved circulation in the right foot. NEUROLOGIC: Awake, alert, oriented x3 with well-coordinated movements. LABORATORY ASSESSMENT: Is hemoglobin 6.6, white count 4.8, platelets 90,000. ASSESSMENT: 1. Anemia secondary to acute blood loss and underlying myeloproliferative disorder. 2. Peripheral arterial disease status post surgery with revascularization and improvement in circulation. 3. Coronary artery disease. 4. Atrial fib flutter. 5. History of congestive cardiac failure, compensated. PLAN: The patient is stable. Continue present medical regimen. Patient's condition discussed with the patient. Prognosis guarded. MMODL / IJN: [id number] /
[2018-04-06] MEDS: METOPROLOL TARTRATE 25 MG TAB PO SCH ×2 (10:25→20:07)
[2018-04-06] MEDS: METOPROLOL TARTRATE 50 MG TAB PO SCH ×2 (10:25→20:06)
--- NOTE | 2018-04-06 11:12 | P.PN ---
Subjective Progress Note Date: 04/06/18 78-year-old male patient who is currently in the intensive care unit and I was asked to evaluate this patient for ICU management. The patient has coronary artery disease, previous bypass surgery, severe peripheral vascular disease, previous history of nonischemic right lower extremity for which she has undergone a right femoral endarterectomy by vascular surgery. Subsequently, the patient continued to have some ischemic changes right lower extremity and he was brought then by interventional cardiology and he underwent a peripheral angiogram followed by PTCA of the right SFA and the right tibial peritoneal trunk. The approach was from the left, and femoral artery. The patient underwent the procedure and he had good angiographic results. During the day, the patient developed abdominal distention and low blood pressure. Retroperitoneal bleeding was suspected and a CT a of the abdomen and pelvis was done and it showed a large hematoma on the left side consistent with retroperitoneal hemorrhage and the hemorrhage was extending into the left pararenal space. Based on that, the patient underwent a selective left common iliac, external iliac, common femoral angiography using the right common femoral artery approach and multiple injections of the left common iliac artery was done in addition to external iliac artery and a common femoral artery as well. The subsequent angiographic did not reveal any evidence of perforation. At that point the procedure was terminated. In follow-up, the patient developed bleeding from the right femoral area and it was further investigated and the patient was diagnosed having a right femoral artery pseudoaneurysm. Pressure was placed to control the bleeding without success and following that the patient was taken to the operating room by vascular surgery and right groin expiration was done and the right femoral artery pseudoaneurysm was repaired. Estimated blood loss was 50 mL. Postop, the patient was brought back to the intensive care unit and the wound is clean and the patient has a OZZIE drain in place with a wound VAC covering the surface of the wound. Pulses in the lower extremities including dorsalis pedis and posterior tibialis palpable and obtainable by Doppler signal bilaterally. His most recent hemoglobin is 7.8. Note that during the course of the treatment the patient received a total of 5 units of packed RBC. He has a component of mild dysplasia and he has chronic anemia, cytopenia. His most recent plated count is at 121. No respiratory distress. No chest pain. No altered mentation. No other complaints otherwise for now and the patient's hemodynamically stable and producing adequate amount of urine output. I put him on normal state rate of 75 mL an hour. His echo cardiac exam showed a preserved LV function with ejection fraction that was normal and was in order of 50-55%. The patient is known to have evidence of pulmonary hypertension right-sided heart failure. PA pressures were estimated to be 80 mmHg and there was severe tricuspid regurgitation, severe pulmonary hypertension, severe left atrial dilatation and there was also evidence of paradoxic septal motion abnormality consistent with right ventricular volume overload based on echocardiogram that was done on 03/08/2018. On today's evaluation of 04/05/2018, the patient is looking much better. Is awake and alert and stable and neurovascularly intact in lower extremities. He is complaining of some pain in the right foot especially in his stool. No open wounds or sores. There is some ischemic changes in the fourth toe on the right foot. Hemoglobin was at 6.8 and we opted not to give any blood. OZZIE drain is in place and is draining only 10 mL over the past 8-12 hours. No chest pain. Respiratory distress. Hemodynamically stable. No other significant events overnight. He is afebrile. Pulse ox is 97% on room air. On today's evaluation of 04/06/2018, the patient is on a telemetry unit. The patient is ambulating. No respiratory distress. No pain in lower extremities are than the usual neuropathic pain. The patient has adequate pulses in lower extremities and the wound VAC is still present in the right groin area. The hemoglobin is down to 6.6 and we agreed upon giving him a unit of packed RBC. No signs of any bleeding. The hematoma in the left groin is soft. The patient is on room air oxygen. No respiratory distress. No other complaints otherwise over the past 24 hours. No other significant events. Objective - Vital Signs Vital signs: Vital Signs Temp 98.6 F 04/06/18 10:42 Pulse 71 04/06/18 10:42 Resp 16 04/06/18 10:42 BP 95/48 04/06/18 10:42 Pulse Ox 95 04/06/18 08:59 Intake & Output 04/05/18 04/06/18 04/06/18 18:59 06:59 18:59 Intake Total 848 720 180 Output Total 50 200 650 Balance 798 520 -470 Intake: IV 275 0.9 NACL 275 Oral 573 720 180 Blood Product 0 Rc As-1 Unit 0 [id number] Output: Urine 50 200 650 Other: Voiding Method Urinal Urinal # Voids 1 1 # Bowel Movements 1 4 ABP, PAP, CO, CI - Last Documented Arterial Blood Pressure 99/40 - Exam Gen. appearance the patient, comfortable likely distress Head exam was generally normal. There was no scleral icterus or corneal arcus. Mucous membranes were moist. Neck was supple and without jugular venous distension, thyromegaly, or carotid bruits. Carotids were easily palpable bilaterally. There was no adenopathy. Lungs were clear to auscultation and percussion, and with normal diaphragmatic excursion. No wheezes or rales were noted. Heart sounds are regular rhythm normal S1-S2 and there is no significant murmurs appreciated. Sternum stable clean and intact. Abdominal exam revealed normal bowel sounds. The abdomen was soft, non-tender, and without masses, organomegaly, or appreciable enlargement of the abdominal aorta. Extremities show diminished pulses in lower extremity is bilaterally involving the dorsalis pedis and the posterior tibialis. The extremities are warm and the feet are warm and there is a chronic ischemic right foot fourth toe. The patient has a clean right groin wound with a OZZIE drain in place and a appropriate wound VAC is also placed to cover the surface of the wound. There is a soft hematoma in the left groin area with some areas of ecchymosis. There is no evidence of any thigh swelling. No cyanosis. No clubbing. Neurologic the patient is intact and the patient is awake and alert and there is no focal neurological deficits. - Labs CBC & Chem 7: 04/06/18 05:29 04/06/18 05:29 Labs: Abnormal Lab Results - Last 24 Hours (Table) 04/01/18 04/06/18 04/06/18 Range/Units 12:54 05:29 05:29 RBC 2.22 L (4.30-5.90) m/uL Hgb 6.6 L* (13.0-17.5) gm/dL Hct 19.9 L* (39.0-53.0) % RDW 22.7 H (11.5-15.5) % Plt Count 90 L (150-450) k/uL Lymphocytes # (Manual) 0.67 L (1.0-4.8) k/uL Metamyelocytes # (Man) 0.19 H (0) k/uL Myelocytes # (Manual) 0.05 H (0) k/uL Nucleated RBCs 1 H (0-0) /100 WBC Sodium 136 L (137-145) mmol/L BUN 22 H (9-20) mg/dL Calcium 7.7 L (8.4-10.2) mg/dL Crossmatch See Detail 04/06/18 Range/Units 08:43 RBC (4.30-5.90) m/uL Hgb (13.0-17.5) gm/dL Hct (39.0-53.0) % RDW (11.5-15.5) % Plt Count (150-450) k/uL Lymphocytes # (Manual) (1.0-4.8) k/uL Metamyelocytes # (Man) (0) k/uL Myelocytes # (Manual) (0) k/uL Nucleated RBCs (0-0) /100 WBC Sodium (137-145) mmol/L BUN (9-20) mg/dL Calcium (8.4-10.2) mg/dL Crossmatch See Detail Assessment and Plan Plan: Assessment 1 right femoral pseudoaneurysm repair/resection, patient is postop day #3 2 right SFA [employer] wasn't, patient is postop day #4 3 left retroperitoneal hematoma following vascular intervention and access nvolving left femoral artery 4 profound blood loss anemia, status post transfusion with a total of 5 units of packed RBC and hemoglobin is up to 6.6 5 history of ischemic right lower extremity, critical stenosis secondary to severe vascular disease 6 coronary artery disease with previous bypass surgery 7 CHF essentially of a right-sided failure with severe pulmonary hypertension and chronic lower extremity edema 8 COPD currently inactive in stable 9 myelodysplasia with bicytopenia, the patient has chronic baseline anemia and thrombocytopenia 10 BPH 11 hyperlipidemia 12 hypertension 13 previous history of acinetobacter in the sputum Plan Transfused with a unit of packed RBC. Monitor the platelet count. Keep the wound VAC in place. Ambulate. We'll follow.
[2018-04-06] MEDS: SPIRONOLACTONE 25 MG TAB PO SCH (12:00)
[2018-04-06] MEDS: FUROSEMIDE 40 MG TAB PO SCH ×3 (12:00→19:38)
[2018-04-06] MEDS: LISINOPRIL 5 MG TAB PO SCH (16:10)
--- NOTE | 2018-04-06 16:22 | PN ---
PROGRESS NOTE Mr. Burk hemoglobin was 6.6. He is getting 1 unit of packed RBCs. His pain is much better. Denies chest pain. Doing well. Vital signs stable. S1-S2 heard normally. Short systolic murmur at the base is audible. Lungs are clear. Abdomen is soft. Lower extremities reveal palpable pulses and his pain has improved remarkably. Hopefully we can discharge him in the next day or 2 once he is stronger and better. MMODL / IJN: [id number] /
[2018-04-06] MEDS: ASPIRIN 325 MG TAB PO SCH (19:38)
[2018-04-06] MEDS: DOXAZOSIN 4 MG TAB PO SCH (20:06)
[2018-04-06] MEDS: ATORVASTATIN 40 MG TAB PO SCH (20:06)
[2018-04-07] MEDS: oxyCODONE-APAP 5-325MG 1 EACH TAB PO PRN ×4 (03:50→17:06)
[2018-04-07] MEDS: PANTOPRAZOLE 40 MG TABLET PO SCH ×2 (06:15→16:03)
[2018-04-07] MEDS ORDERED: BISACODYL 10 MG SUPP RECTAL STA (07:54)
[2018-04-07 07:58] LABS: Anisocytosis Moderate; HCT 22.6 % (39.0-53.0); HGB 7.5 gm/dL (13.0-17.5); MCH 29.7 pg (25.0-35.0); MCHC 33.1 g/dL (31.0-37.0); MCV 89.6 fL (80.0-100.0); Platelet Count 104 k/uL (150-450); Poikilocytosis Slight; RBC 2.53 m/uL (4.30-5.90); RDW 21.2 % (11.5-15.5); WBC 6.2 k/uL (3.8-10.6)
[2018-04-07] MEDS: FUROSEMIDE 40 MG TAB PO SCH ×2 (07:59→16:03)
[2018-04-07] MEDS: LISINOPRIL 5 MG TAB PO SCH (07:59)
[2018-04-07] MEDS: METOPROLOL TARTRATE 50 MG TAB PO SCH (08:00)
[2018-04-07] MEDS: METOPROLOL TARTRATE 25 MG TAB PO SCH (08:00)
[2018-04-07] MEDS: SPIRONOLACTONE 25 MG TAB PO SCH (08:01)
[2018-04-07 08:09] LABS: Anion Gap 10 mmol/L; Blood Urea Nitrogen 21 mg/dL (9-20); Calcium 7.8 mg/dL (8.4-10.2); Carbon Dioxide 21 mmol/L (22-30); Chloride 105 mmol/L (98-107); Glucose 117 mg/dL (74-99); Potassium 4.1 mmol/L (3.5-5.1); Sodium 136 mmol/L (137-145)
[2018-04-07] MEDS: ASPIRIN 81 MG PO SCH (08:13)
[2018-04-07] MEDS: CLOPIDOGREL 75 MG TAB PO SCH (08:13)
--- NOTE | 2018-04-07 11:08 | CDI ---
Last Revision, October 2017 Documentation Clarification Form Date: April From: Aracelis Joseph Admit Date: 04/01/2018 1:49:00 PM Patient Name: Jacques Burk Visit Number: [id number] ATTENTION: The Clinical Documentation Specialists (CDI) and [facility] Coding Staff appreciate your assistance in clarifying documentation. Please respond to the clarification below the line at the bottom and electronically sign. The CDI & [facility] Coding staff will review the response and follow-up if needed. Please note: Queries are made part of the Legal Health Record. If you have any questions, please contact the author of this message via ITS. Dr. James Cline, Pseudoaneurysm and Hematoma is documented in the consult note 04/04, 04/04 PN Cardiology. Patients Admitting Diagnosis: critical limb ischemia of the right foot had a atherectomy and balloon angioplasty of the right superficial femoral artery as well as right peroneal artery and right tibioperoneal with good angiographic results. Post-Operative Diagnosis: right groin pseudoaneurysm and hematoma Procedure performed: right groin exploration with right femoral artery pseudoaneurysm repair. right femoral patch was intact at the suture lines but there was a access hole about the size of a 035 wire at the anterior surface of the patch that was actively bleeding, a pro-beth suture was used to close the defect. Large hematoma was removed as well. History/Risk Factors: Peripheral arterial disease with right ischemic foot, myelodysplastic syndrome, generalized atherosclerosis, x smoker, cad, htn Clinical Indicators: duplex scan show right groin pseudoaneurysm Treatment: Surgery 04/04 to repair pseudonaneurysm Consults: Surgery In order to accurately reflect this patients severity of illness, please clarify if the post-operative diagnosis is: An expected post-procedural or post-surgical condition; Integral to the procedure; Inherent to the procedure; An unexpected post-procedural or post-surgical condition related to surgical care; Other, please specify Unable to determine Please clarify the significance of the pseudoaneurysm to the patient stay Please continue to document in your progress notes and discharge summary in order to capture severity of illness and risk of mortality. Include clinical findings that support your diagnosis. unexpected post-procedural condition related to peripheral interventional procedure MTDD
[2018-04-07 11:39] VITALS: BMI 27.7
--- NOTE | 2018-04-07 13:34 | P.PN ---
Subjective Progress Note Date: 04/07/18 Principal diagnosis: Status post right femoral pseudoaneurysm repair postoperative day #4. Status post TACK COVERER OF SFA postoperative day #5. 78-year-old male patient who is currently in the intensive care unit and I was asked to evaluate this patient for ICU management. The patient has coronary artery disease, previous bypass surgery, severe peripheral vascular disease, previous history of nonischemic right lower extremity for which she has undergone a right femoral endarterectomy by vascular surgery. Subsequently, the patient continued to have some ischemic changes right lower extremity and he was brought then by interventional cardiology and he underwent a peripheral angiogram followed by PTCA of the right SFA and the right tibial peritoneal trunk. The approach was from the left, and femoral artery. The patient underwent the procedure and he had good angiographic results. During the day, the patient developed abdominal distention and low blood pressure. Retroperitoneal bleeding was suspected and a CT a of the abdomen and pelvis was done and it showed a large hematoma on the left side consistent with retroperitoneal hemorrhage and the hemorrhage was extending into the left pararenal space. Based on that, the patient underwent a selective left common iliac, external iliac, common femoral angiography using the right common femoral artery approach and multiple injections of the left common iliac artery was done in addition to external iliac artery and a common femoral artery as well. The subsequent angiographic did not reveal any evidence of perforation. At that point the procedure was terminated. In follow-up, the patient developed bleeding from the right femoral area and it was further investigated and the patient was diagnosed having a right femoral artery pseudoaneurysm. Pressure was placed to control the bleeding without success and following that the patient was taken to the operating room by vascular surgery and right groin expiration was done and the right femoral artery pseudoaneurysm was repaired. Estimated blood loss was 50 mL. Postop, the patient was brought back to the intensive care unit and the wound is clean and the patient has a OZZIE drain in place with a wound VAC covering the surface of the wound. Pulses in the lower extremities including dorsalis pedis and posterior tibialis palpable and obtainable by Doppler signal bilaterally. His most recent hemoglobin is 7.8. Note that during the course of the treatment the patient received a total of 5 units of packed RBC. He has a component of mild dysplasia and he has chronic anemia, cytopenia. His most recent plated count is at 121. No respiratory distress. No chest pain. No altered mentation. No other complaints otherwise for now and the patient's hemodynamically stable and producing adequate amount of urine output. I put him on normal state rate of 75 mL an hour. His echo cardiac exam showed a preserved LV function with ejection fraction that was normal and was in order of 50-55%. The patient is known to have evidence of pulmonary hypertension right-sided heart failure. PA pressures were estimated to be 80 mmHg and there was severe tricuspid regurgitation, severe pulmonary hypertension, severe left atrial dilatation and there was also evidence of paradoxic septal motion abnormality consistent with right ventricular volume overload based on echocardiogram that was done on 03/08/2018. On today's evaluation of 04/05/2018, the patient is looking much better. Is awake and alert and stable and neurovascularly intact in lower extremities. He is complaining of some pain in the right foot especially in his stool. No open wounds or sores. There is some ischemic changes in the fourth toe on the right foot. Hemoglobin was at 6.8 and we opted not to give any blood. OZZIE drain is in place and is draining only 10 mL over the past 8-12 hours. No chest pain. Respiratory distress. Hemodynamically stable. No other significant events overnight. He is afebrile. Pulse ox is 97% on room air. On today's evaluation of 04/06/2018, the patient is on a telemetry unit. The patient is ambulating. No respiratory distress. No pain in lower extremities are than the usual neuropathic pain. The patient has adequate pulses in lower extremities and the wound VAC is still present in the right groin area. The hemoglobin is down to 6.6 and we agreed upon giving him a unit of packed RBC. No signs of any bleeding. The hematoma in the left groin is soft. The patient is on room air oxygen. No respiratory distress. No other complaints otherwise over the past 24 hours. No other significant events. Patient was reevaluated today on 04/07/2018, doing well, discharge planning is in progress. Patient has no active pulmonary symptoms whatsoever. No cough no wheezing no shortness of breath. Hemoglobin today is 7.5. Patient denies any nausea vomiting abdominal pain melena or hematemesis. Objective - Vital Signs Vital signs: Vital Signs Temp 97.0 F L 04/07/18 11:00 Pulse 91 04/07/18 11:50 Resp 18 04/07/18 11:50 BP 113/63 04/07/18 11:00 Pulse Ox 96 04/07/18 11:00 Intake & Output 04/06/18 04/07/18 04/07/18 18:59 06:59 18:59 Intake Total 690 250 Output Total 1375 400 Balance -685 -400 250 Weight 80.4 kg 80.4 kg Intake: IV 10 Invasive Line 4 10 Oral 380 240 Blood Product 310 Rc As-1 Unit 310 [id number] Output: Urine 1375 400 Other: Voiding Method Urinal Urinal Urinal # Voids 1 1 1 # Bowel Movements 4 1 ABP, PAP, CO, CI - Last Documented Arterial Blood Pressure 99/40 - Exam Gen. appearance the patient, comfortable likely distress Head exam was generally normal. There was no scleral icterus or corneal arcus. Mucous membranes were moist. Neck was supple and without jugular venous distension, thyromegaly, or carotid bruits. Carotids were easily palpable bilaterally. There was no adenopathy. Lungs were clear to auscultation and percussion, and with normal diaphragmatic excursion. No wheezes or rales were noted. Heart sounds are regular rhythm normal S1-S2 and there is no significant murmurs appreciated. Sternum stable clean and intact. Abdominal exam revealed normal bowel sounds. The abdomen was soft, non-tender, and without masses, organomegaly, or appreciable enlargement of the abdominal aorta. Extremities show diminished pulses in lower extremity is bilaterally involving the dorsalis pedis and the posterior tibialis. The extremities are warm and the feet are warm and there is a chronic ischemic right foot fourth toe. Neurologic the patient is intact and the patient is awake and alert and there is no focal neurological deficits. - Labs CBC & Chem 7: 04/07/18 07:38 04/07/18 07:38 Labs: Abnormal Lab Results - Last 24 Hours (Table) 04/06/18 04/07/18 04/07/18 Range/Units 08:43 07:38 07:38 RBC 2.53 L (4.30-5.90) m/uL Hgb 7.5 L (13.0-17.5) gm/dL Hct 22.6 L (39.0-53.0) % RDW 21.2 H (11.5-15.5) % Plt Count 104 L (150-450) k/uL Sodium 136 L (137-145) mmol/L Carbon Dioxide 21 L (22-30) mmol/L BUN 21 H (9-20) mg/dL Glucose 117 H (74-99) mg/dL Calcium 7.8 L (8.4-10.2) mg/dL Crossmatch See Detail Assessment and Plan Assessment: 1 right femoral pseudoaneurysm repair/resection, patient is postop day #4 2 right SFA TACK COVERER wasn't, patient is postop day #5 3 left retroperitoneal hematoma following vascular intervention and access nvolving left femoral artery 4 profound blood loss anemia, status post transfusion with a total of 5 units of packed RBC and hemoglobin is up to 7.5 today 5 history of ischemic right lower extremity, critical stenosis secondary to severe vascular disease 6 coronary artery disease with previous bypass surgery 7 CHF essentially of a right-sided failure with severe pulmonary hypertension and chronic lower extremity edema 8 COPD currently inactive in stable 9 myelodysplasia with bicytopenia, the patient has chronic baseline anemia and thrombocytopenia 10 BPH 11 hyperlipidemia 12 hypertension 13 previous history of acinetobacter in the sputum Plan: Continue present supportive care measures, patient is being considered for discharge planning today, no new recommendations from our perspective. Time with Patient: Less than 30
[2018-04-07 15:50] VITALS: BP 111/59; PULSE 77; RESP 20; TEMP 98.3
--- NOTE | 2018-04-07 16:29 | PN ---
PROGRESS NOTE Mr. Burk is in a sinus rhythm. He is doing better today. His hemoglobin is stable. He received a unit of blood. He has no chest pain. His groin pain has also improved. He is feeling much better. Vitals are stable. S1, S2 heard normally. Short systolic murmur noted. Lungs are clear. Abdomen and lower extremity exam unchanged. Plan is to continue same medications, increase activity and discharge him. He will see Dr. Britton in a week and Dr. Cline in a week. MMODL / IJN: [id number] /
--- NOTE | 2018-04-07 20:18 | P.PN ---
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 Since summer, the patient had noted decrease in appetite, progressive fatigue, weakness and weight loss. He had come in to the hospital because of progressive shortness of breath, lower extremity swelling and orthopnea.he was noted to be in congestive heart failure and was treated for the same. Labs labs showed an elevated white count in the 30,000 range, and platelets greater than 1 million. Hemoglobin was 8.5. WBC differential showed a significant left shift. Normal labs had been noted in and the patient was supposed to be seen by us in the outpatient setting. He underwent bone marrow aspirate and biopsy in 11/15/17. He had a comparatively prolonged hospitalization for treatment for his congestive heart failure which is slow to respond. He was admitted discharged on 12/01/17. In the meantime a bone marrow pathology showed hypercellular marrow with increased trilineage hematopoiesis, and dysmegakaryopoeisis and mild reticulin fibrosis. 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 Blast percentage was not significantly increased. 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 the patient was seen for his first office visit on 12/10/17. He was started on Jakafi in late 12/22 The patient did respond, with normalization of his white count and platelets. Hemoglobin still remained low, in the 7-8 range. He has otherwise tolerated his medication well. The patient has known extensive peripheral vascular occlusive disease. He came in for right lower extremity revascularization and underwent angioplasty of the right femoral artery. The patient subsequently developed bleeding, consisting of a left retroperitoneal hematoma, as well as pseudoaneurysm in the right groin with leak. Hemoglobin dropped to 5.6. Patient has required blood transfusions since with recurrent drops of hemoglobin into the 6 range. He was taken to surgery today and underwent drainage of the hematoma and a ferritin of the pseudoaneurysm. Hemoglobin today is stable in the 7 range. White count is normal. Platelets are somewhat lower than normal, but well within a safe range in the 120-130 K level. Consult was therefore placed for further evaluation and recommendations 04/07/18 - Jacques was seen in follow-up today. He is feeling better, planning for discharge today. Pain is tolerable and improving Objective - Vital Signs Vital signs: Vital Signs Temp 98.5 F 04/07/18 08:00 Pulse 95 04/07/18 08:00 Resp 16 04/07/18 08:00 BP 114/60 04/07/18 08:00 Pulse Ox 98 04/07/18 08:00 Intake & Output 04/06/18 04/07/18 04/07/18 18:59 06:59 18:59 Intake Total 690 250 Output Total 1375 400 Balance -685 -400 250 Weight 80.4 kg Intake: IV 10 Invasive Line 4 10 Oral 380 240 Blood Product 310 Rc As-1 Unit 310 [id number] Output: Urine 1375 400 Other: Voiding Method Urinal Urinal Urinal # Voids 1 1 1 # Bowel Movements 4 1 ABP, PAP, CO, CI - Last Documented Arterial Blood Pressure 99/40 - Constitutional General appearance: Present: cooperative, no acute distress - EENT Eyes: Present: EOMI, PERRLA, dentition normal ENT: Present: NA/AT, normal oropharynx - Neck Details: supple trachea midline Neck: Present: normal ROM - Respiratory Respiratory: bilateral: CTA (no increased effort) - Cardiovascular Rhythm: regular Heart sounds: normal: S1, S2 - Peripheral edema leg Peripheral Edema: right: 1+ - Gastrointestinal General gastrointestinal: Present: normal bowel sounds, soft, splenomegaly - Neurologic Neurologic: Present: CNII-XII intact - Musculoskeletal Musculoskeletal: Present: generalized weakness, strength equal bilaterally - Psychiatric Psychiatric: Present: A&O x's 3, appropriate affect, intact judgment & insight - Labs CBC & Chem 7: 04/07/18 07:38 04/07/18 07:38 Labs: Abnormal Lab Results - Last 24 Hours (Table) 04/06/18 04/07/18 04/07/18 Range/Units 08:43 07:38 07:38 RBC 2.53 L (4.30-5.90) m/uL Hgb 7.5 L (13.0-17.5) gm/dL Hct 22.6 L (39.0-53.0) % RDW 21.2 H (11.5-15.5) % Plt Count 104 L (150-450) k/uL Sodium 136 L (137-145) mmol/L Carbon Dioxide 21 L (22-30) mmol/L BUN 21 H (9-20) mg/dL Glucose 117 H (74-99) mg/dL Calcium 7.8 L (8.4-10.2) mg/dL Crossmatch See Detail Assessment and Plan Plan: Assessment and Plan (1) Anemia Narrative/Plan: The patient has chronic anemia due to his known myelofibrosis. Since starting treatment from myelofibrosis, hemoglobin has been generally in the 7-8 range. During this admission hemoglobin has dropped because of blood loss. Agree with transfusion support. As anemia can be a side effect of Jakafi I would recommend holding the medication while in the hospital. We will follow- up in the outpatient setting and resume the medication once hemoglobin is noted to be stable at least at his baseline. - Follow-up appointments have been made and added to discharge instructions for this week, next week and week after to resume jakafi and monitor CBC/Hgb Current Visit: No Status: Acute Priority: High Code(s): D64.9 - ANEMIA, UNSPECIFIED SNOMED Code(s): 429456808 (2) Pseudoaneurysm Narrative/Plan: Diagnostic and therapeutic circumstances as noted above. Defer to vascular surgery for continued management Current Visit: Yes Status: Acute Priority: High Code(s): I72.9 - ANEURYSM OF UNSPECIFIED SITE SNOMED Code(s): 27127944 (3) Myelofibrosis Narrative/Plan: The patient has responded well to his regimen, with normalization of his white count and platelets. However hemoglobin has been low, although in a safe range. WBC continues to be normal. Platelets have dropped, likely due to consumption from his bleeding, as well as dilution from transfusion. However they're well within a safe range of greater than 100,000. As long as stated counts are greater than 50,000 the patient can continue on antiplatelet therapy. As noted, the plan is to hold Jakafi while in the hospital, and resume it in the outpatient setting once hemoglobin is noted to be stable - Continue with follow-up this week and next week.
--- NOTE | 2018-04-07 23:31 | PN ---
PROGRESS NOTE ATTENDING PHYSICIAN: Dr. Belia Franklin. CHIEF COMPLAINT: Re-evaluation. HISTORY OF PRESENT ILLNESS: This 78-year-old gentleman was admitted to the hospital and undergone right leg revascularization surgery for significant rest pain and ischemic right foot. The patient had significant ischemia affecting the right 4th toe. He has a small eschar on the right fourth toe. The patient is feeling somewhat better. He has no symptoms of dizziness when he sits up or diaphoresis. Breathing is adequate. The patient denies any other symptoms. His foot pain continues to improve. The patient has not had a bowel movement. That is his biggest concern right now. REVIEW OF SYSTEMS: NEURO: Denies any headaches or dizziness. PSYCH: No anxiety. CARDIAC: No chest pain, angina, palpitations/ RESPIRATORY: Denies shortness of breath, cough. GI: No nausea, vomiting, abdominal pain, diarrhea. No bowel movement day 3. : No symptoms of dysuria, hematuria. EXTREMITIES: Pain in the right foot. CONSTITUTIONAL: No fever or chills. PHYSICAL EXAMINATION: Pleasant gentleman in no distress. VITAL SIGNS: Temperature 98.5, pulse 95, respirations 16, blood pressure 114/60, pulse ox 98% on room air. HEENT: Normocephalic. NECK: No JVD. CHEST: Clear to auscultation with a generalized decreased air flow, increased percussion noted bilaterally. CARDIAC: Distant heart sounds, S1, S2 with no gallops. Irregular rhythm. Systolic murmur 2/6 at apex. ABDOMEN: Soft. Bowel sounds present. Extremities reveal trace edema right foot. The patient has faint palpable pedal pulse on the right side. No posterior pulse palpable. Left foot difficult to appreciate pulses. Neurologically awake, alert, oriented x3 with well-coordinated movements. SKIN: Right 4th toe with small superficial ulcer with necrotic eschar. LABORATORY ASSESSMENT: Hemoglobin of 7.5, white count 6.2, platelets 104. Electrolytes are normal. BUN 21, creatinine 0.83, random glucose 117. Calcium 7.8. ASSESSMENT: 1. Anemia secondary to acute blood loss and probable myeloproliferative disorder. 2. Peripheral arterial disease, status post surgery. 3. pseudoaneurysm repair. 4. hematoma. 5. Chronic atrial fibrillation/flutter. 6. Coronary artery disease, stable. 7. Chronic obstructive pulmonary disease. PLAN: The patient at present is stable. Continue present medical regimen. The patient will be given Dulcolax suppositories today. The patient's condition discussed with the patient. Prognosis guarded. Potential discharge home today. FRITZ / HAYDE: [id number] /
== END 2018-04-07 17:23 | disposition home health service (06) | DRG 270 ==
LOC: CATHCVL 10:00 → 6ICU 13:49 → CATHCVL 13:49 → 6ICU 13:57 → 6SEL 04-05 10:14
PROVIDERS: ADMIT Internal Medicine Interventional Cardiology; ATTEND Internal Medicine Interventional Cardiology
PROC: 04CK3ZZ Extirpation of Matter from Right Femoral Artery, Percutaneous Approach (ICD-10-PCS; 2018-04-01)
PROC: 047T3Z1 Dilation of Right Peroneal Artery using Drug-Coated Balloon, Percutaneous Approach (ICD-10-PCS; 2018-04-01)
PROC: 047K3Z1 Dilation of Right Femoral Artery using Drug-Coated Balloon, Percutaneous Approach (ICD-10-PCS; 2018-04-01)
PROC: B41G1ZZ Fluoroscopy of Left Lower Extremity Arteries using Low Osmolar Contrast (ICD-10-PCS; 2018-04-01)
PROC: B41F1ZZ Fluoroscopy of Right Lower Extremity Arteries using Low Osmolar Contrast (ICD-10-PCS; 2018-04-01)
PROC: 30233N1 Transfusion of Nonautologous Red Blood Cells into Peripheral Vein, Percutaneous Approach (ICD-10-PCS; 2018-04-01)
PROC: 04CT3ZZ Extirpation of Matter from Right Peroneal Artery, Percutaneous Approach (ICD-10-PCS; 2018-04-01 11:33)
PROC: 04CT3ZZ Extirpation of Matter from Right Peroneal Artery, Percutaneous Approach (ICD-10-PCS; 2018-04-02)
PROC: 047K3Z1 Dilation of Right Femoral Artery using Drug-Coated Balloon, Percutaneous Approach (ICD-10-PCS; 2018-04-02)
PROC: 04CK3ZZ Extirpation of Matter from Right Femoral Artery, Percutaneous Approach (ICD-10-PCS; 2018-04-02)
PROC: 04CK0ZZ Extirpation of Matter from Right Femoral Artery, Open Approach (ICD-10-PCS; 2018-04-04)
PROC: 04QK0ZZ Repair Right Femoral Artery, Open Approach (ICD-10-PCS; principal; 2018-04-04 12:10)
DX: I72.4 Aneurysm of artery of lower extremity (principal); K66.1 Hemoperitoneum; D47.1 Chronic myeloproliferative disease; D62 Acute posthemorrhagic anemia; I48.92 Unspecified atrial flutter; I25.810 Atherosclerosis of coronary artery bypass graft(s) without angina pectoris; I70.92 Chronic total occlusion of artery of the extremities; D69.6 Thrombocytopenia, unspecified; I70.211 Atherosclerosis of native arteries of extremities with intermittent claudication, right leg; I50.812 Chronic right heart failure; E78.5 Hyperlipidemia, unspecified; I11.0 Hypertensive heart disease with heart failure; I27.20 Pulmonary hypertension, unspecified; I48.2 Chronic atrial fibrillation; J44.9 Chronic obstructive pulmonary disease, unspecified; K21.9 Gastro-esophageal reflux disease without esophagitis; N40.0 Benign prostatic hyperplasia without lower urinary tract symptoms; R16.1 Splenomegaly, not elsewhere classified; I99.8 Other disorder of circulatory system; I08.3 Combined rheumatic disorders of mitral, aortic and tricuspid valves; Z79.01 Long term (current) use of anticoagulants; Z79.899 Other long term (current) drug therapy; Z79.02 Long term (current) use of antithrombotics/antiplatelets; Z79.82 Long term (current) use of aspirin; Z87.891 Personal history of nicotine dependence; Z95.1 Presence of aortocoronary bypass graft; Z82.49 Family history of ischemic heart disease and other diseases of the circulatory system; Z80.9 Family history of malignant neoplasm, unspecified
CPT/HCPCS: 36247; 37225; 37229; 74176; 75710; 76937; 80048; 83735; 84100; 85025; 85027; 85347; 85610; 86850; 86900; 86901; 86920; 93975; 94760

== ENCOUNTER 2018-04-11 12:29 | Inpatient (IN) | payer MEDICARE ==
[2018-04-11] MEDS ORDERED: ASPIRIN 81 MG PO STA (12:34)
--- NOTE | 2018-04-11 12:37 | ED ---
General Adult HPI - General Stated complaint: chest pain Time Seen by Provider: 04/11/18 12:29 Source: RN notes reviewed - History of Present Illness Initial comments: This is a 78-year-old male who presents to the emergency department complaining of chest pain since 6 AM this morning patient states he was short of breath with it and also had some diaphoresis. EMS arrived at the house and gave the patient nitroglycerin sublingually was pain went from a 7 out of 10 to a 3 out of 10. Patient also received 2 of morphine and aspirin in route. Patient still states he has some slight chest pain. Patient denies any abdominal pain patient denies nausea vomiting or diarrhea. Patient denies any leg pain or calf pain. Patient also complains that his been having black stools. Patient denies headache patient denies lightheadedness dizziness or near syncopal episode. - Related Data Home Medications Medication Instructions Recorded Confirmed Atorvastatin [Lipitor] 40 mg PO HS 09/27/14 04/11/18 Metoprolol Tartrate [Lopressor] 50 mg PO BID 09/27/14 04/11/18 Terazosin [Hytrin] 5 mg PO HS 09/27/14 04/11/18 Pantoprazole [Protonix] 40 mg PO BID 11/12/17 04/11/18 Spironolactone [Aldactone] 25 mg PO DAILY 11/12/17 04/11/18 Ruxolitinib Phosphate [Jakafi] 25 mg PO BID 02/07/18 04/11/18 oxyCODONE HCL/ACETAMINOPHEN 1 tab PO Q6HR PRN 03/05/18 04/11/18 [Endocet 5-325 mg] Previous Rx's Medication Instructions Recorded Enalapril [Vasotec] 5 mg PO DAILY #30 tablet 10/12/14 Furosemide [Lasix] 40 mg PO BID #0 11/21/17 Aspirin 81 mg PO DAILY #30 chew 04/07/18 Clopidogrel [Plavix] 75 mg PO DAILY #30 tab 04/07/18 Rivaroxaban [Xarelto] 15 mg PO W/SUPPER #30 tab 04/07/18 Allergies Allergy/AdvReac Type Severity Reaction Status Date / Time No Known Allergies Allergy Verified 04/11/18 13:06 Review of Systems ROS Statement: Those systems with pertinent positive or pertinent negative responses have been documented in the HPI. ROS Other: All systems not noted in ROS Statement are negative. Past Medical History Past Medical History: Blood Disorder, Coronary Artery Disease (CAD), Heart Failure, GERD/Reflux, Hyperlipidemia, Hypertension, Prostate Disorder Additional Past Medical History / Comment(s): History of mild dysplasia, coronary artery disease, previous bypass surgery, right-sided heart failure with severe pulmonary hypertension, acid reflux, hypertension, hyperlipidemia, BPH, peripheral vascular disease with previous history of ischemic right lower extremity and previous right femoral endarterectomy with subsequent vascular intervention as mentioned above. The patient currently has a right foot toe which is ischemic/4rth toe History of Any Multi-Drug Resistant Organisms: Acinetobacter (MDRO) Date of last positivie culture/infection: 11/18/17 MDRO Source:: MDRO ACINETOBACTER SPUTUM Past Surgical History: Coronary Bypass/CABG, Heart Catheterization, Hernia Repair Additional Past Surgical History / Comment(s): Cardiac catheterization on 2013, right femoral artery/common femoral artery endarterectomy, PT be a and balloon angioplasty of right superficial femoral artery on 04/02/2018, and without hernia repair, a medical hernia repair, coronary artery bypass surgery, EGD, colonoscopy Past Anesthesia/Blood Transfusion Reactions: No Reported Reaction Past Psychological History: No Psychological Hx Reported Additional Psychological History / Comment(s): PT LIVES AT HOME WITH HIS , IS INDEPENDANT,RETIRED FROM [employer]. NO HX, Smoking Status: Former smoker Past Alcohol Use History: Occasional Additional Past Alcohol Use History / Comment(s): STARTED SMOKING AT AGE 16 QUIT AT AGE 40 SMOKED 1 1/2 PPD Past Drug Use History: None Reported - Past Family History Brother(s) Family Medical History: Cancer Additional Family Medical History / Comment(s): 2 with lung and 1 with prostate Mother Family Medical History: Myocardial Infarction ([place]) Father Additional Family Medical History / Comment(s): AT AGE 83 FROM "[place] OF THE ARTERIES" General Exam - General Exam Comments Initial Comments: GENERAL: Patient is well-developed and well-nourished. Patient is nontoxic and well- hydrated and is in mild distress. ENT: Neck is soft and supple. No significant lymphadenopathy is noted. Oropharynx is clear. Moist mucous membranes. Neck has full range of motion without eliciting any pain. EYES: The sclera were anicteric and conjunctiva were pink and moist. Extraocular movements were intact and pupils were equal round and reactive to light. Eyelids were unremarkable. PULMONARY: Unlabored respirations. Good breath sounds bilaterally. No audible rales rhonchi or wheezing was noted. CARDIOVASCULAR: There is a regular rate and rhythm without any murmurs gallops or rubs. Femoral pulses are equal bilaterally ABDOMEN: Soft and nontender with normal bowel sounds. No palpable organomegaly was noted. There is no palpable pulsatile mass. SKIN: Patient has a very pale appearance. NEUROLOGIC: Patient is alert and oriented x3. Cranial nerves II through XII are grossly intact. Motor and sensory are also intact. Normal speech, volume and content. Symmetrical smile. MUSCULOSKELETAL: Normal extremities with adequate strength and full range of motion. No lower extremity swelling or edema. No calf tenderness. LYMPHATICS: No significant lymphadenopathy is noted PSYCHIATRIC: Normal psychiatric evaluation. Normal interpersonal interactions appears functionally intact in deals appropriately with others. No signs of depression. No signs of anxiety. Course Vital Signs 04/11/18 04/11/18 12:36 12:47 Temperature 97.1 F L Pulse Rate 120 H Pulse Rate [ 120 H Apical] Respiratory 18 Rate Blood Pressure 91/55 O2 Sat by Pulse 100 Oximetry Medical Decision Making - Medical Decision Making EKG shows atrial flutter at 110 bpm QRS is 96 QT interval is 294 QTC is 397 patient's EKG shows significant ST segment depression in leads V3 through V6 as well as 1 to and aVL. I spoke with Dr. Franklin he wanted the patient one unit of packed red blood cells. I admitted the patient that ICU I consult with Dr. perdue her spoke with him. I consult cardiology spoke with them. I admitted the patient wrote admitting orders and repeated cardiac enzymes. I also repeated CBCs - Lab Data Result diagrams: 04/11/18 12:32 04/11/18 12:32 Lab Results 04/11/18 04/11/18 04/11/18 Range/Units 12:32 12:32 12:32 WBC 12.7 H (3.8-10.6) k/uL RBC 1.98 L (4.30-5.90) m/uL Hgb 5.9 L* D (13.0-17.5) gm/dL Hct 17.6 L* (39.0-53.0) % MCV 88.7 (80.0-100.0) fL MCH 30.0 (25.0-35.0) pg MCHC 33.8 (31.0-37.0) g/dL RDW 22.4 H (11.5-15.5) % Plt Count 232 D (150-450) k/uL Neutrophils % (Manual) 74 % Band Neutrophils % 9 % Lymphocytes % (Manual) 3 % Monocytes % (Manual) 4 % Basophils % (Manual) 1 % Metamyelocytes % 4 % Myelocytes % 7 % Neutrophils # (Manual) 10.50 H (1.3-7.7) k/uL Lymphocytes # (Manual) 0.38 L (1.0-4.8) k/uL Monocytes # (Manual) 0.51 (0-1.0) k/uL Basophils # (Manual) 0.13 (0-0.2) k/uL Metamyelocytes # (Man) 0.51 H (0) k/uL Myelocytes # (Manual) 0.89 H (0) k/uL Nucleated RBCs 1 H (0-0) /100 WBC Poikilocytosis Slight Anisocytosis Moderate Tear Drop Cells Present Fragmented RBCs Present PT (9.0-12.0) sec INR (<1.2) APTT (22.0-30.0) sec Sodium 137 (137-145) mmol/L Potassium 4.0 (3.5-5.1) mmol/L Chloride 106 (98-107) mmol/L Carbon Dioxide 22 (22-30) mmol/L Anion Gap 9 mmol/L BUN 33 H (9-20) mg/dL Creatinine 0.75 (0.66-1.25) mg/dL Est GFR (CKD-EPI)AfAm >90 (>60 ml/min/1.73 sqM) Est GFR (CKD-EPI)NonAf 88 (>60 ml/min/1.73 sqM) Glucose 122 H (74-99) mg/dL Calcium 8.1 L (8.4-10.2) mg/dL Magnesium 1.7 (1.6-2.3) mg/dL Total Bilirubin 2.1 H (0.2-1.3) mg/dL AST 33 (17-59) U/L ALT 40 (21-72) U/L Alkaline Phosphatase 120 (38-126) U/L Total Creatine Kinase 39 L (55-170) U/L CK-MB (CK-2) 3.6 H* (0.0-2.4) ng/mL CK-MB (CK-2) Rel Index 9.2 Troponin I 0.478 H* (0.000-0.034) ng/mL Total Protein 4.5 L (6.3-8.2) g/dL Albumin 2.6 L (3.5-5.0) g/dL Stool Occult Blood (Negative) Blood Type Blood Type Recheck Antibody Screen Crossmatch Spec Expiration Date 04/11/18 04/11/18 04/11/18 Range/Units 12:32 12:32 12:39 WBC (3.8-10.6) k/uL RBC (4.30-5.90) m/uL Hgb (13.0-17.5) gm/dL Hct (39.0-53.0) % MCV (80.0-100.0) fL MCH (25.0-35.0) pg MCHC (31.0-37.0) g/dL RDW (11.5-15.5) % Plt Count (150-450) k/uL Neutrophils % (Manual) % Band Neutrophils % % Lymphocytes % (Manual) % Monocytes % (Manual) % Basophils % (Manual) % Metamyelocytes % % Myelocytes % % Neutrophils # (Manual) (1.3-7.7) k/uL Lymphocytes # (Manual) (1.0-4.8) k/uL Monocytes # (Manual) (0-1.0) k/uL Basophils # (Manual) (0-0.2) k/uL Metamyelocytes # (Man) (0) k/uL Myelocytes # (Manual) (0) k/uL Nucleated RBCs (0-0) /100 WBC Poikilocytosis Anisocytosis Tear Drop Cells Fragmented RBCs PT 22.2 H (9.0-12.0) sec INR 2.5 H (<1.2) APTT 32.8 H (22.0-30.0) sec Sodium (137-145) mmol/L Potassium (3.5-5.1) mmol/L Chloride (98-107) mmol/L Carbon Dioxide (22-30) mmol/L Anion Gap mmol/L BUN (9-20) mg/dL Creatinine (0.66-1.25) mg/dL Est GFR (CKD-EPI)AfAm (>60 ml/min/1.73 sqM) Est GFR (CKD-EPI)NonAf (>60 ml/min/1.73 sqM) Glucose (74-99) mg/dL Calcium (8.4-10.2) mg/dL Magnesium (1.6-2.3) mg/dL Total Bilirubin (0.2-1.3) mg/dL AST (17-59) U/L ALT (21-72) U/L Alkaline Phosphatase (38-126) U/L Total Creatine Kinase (55-170) U/L CK-MB (CK-2) (0.0-2.4) ng/mL CK-MB (CK-2) Rel Index Troponin I (0.000-0.034) ng/mL Total Protein (6.3-8.2) g/dL Albumin (3.5-5.0) g/dL Stool Occult Blood Positive (Negative) Blood Type A Positive Blood Type Recheck No Antibody Screen NEGATIVE Crossmatch See Detail Spec Expiration Date 04/14/2018 5645 Critical Care Time Critical Care Time: Yes Total Critical Care Time: 35 Disposition Clinical Impression: Non-STEMI (non-ST elevated myocardial infarction), GI bleed, Anemia Disposition: [facility] Referrals: Leon Franklin MD [Primary Care Provider] - 1-2 days Time of Disposition: 14:17
[2018-04-11 12:52] LABS: INR 2.5 (<1.2); Partial Thromboplastin Time 32.8 sec (22.0-30.0); Prothrombin Time 22.2 sec (9.0-12.0)
[2018-04-11 12:58] LABS: Anisocytosis Moderate; MCHC 33.8 g/dL (31.0-37.0); MCV 88.7 fL (80.0-100.0); Mean Platelet Volume 9.8; Platelet Count 232 k/uL (150-450); Poikilocytosis Slight; RBC 1.98 m/uL (4.30-5.90); RDW 22.4 % (11.5-15.5)
[2018-04-11 13:02] LABS: HGB 5.9 gm/dL (13.0-17.5)
[2018-04-11 13:03] LABS: HCT 17.6 % (39.0-53.0)
--- NOTE | 2018-04-11 13:11 | XR ---
EXAMINATION TYPE: XR chest 2V DATE OF EXAM: 04/11/2018 COMPARISON: 11/19/2017 HISTORY: Shortness of breath FINDINGS: There are bilateral pleural effusions with cardiomegaly and bibasilar infiltrate. There is a diffuse interstitial pattern. Postsurgical changes noted. Arthropathy of the shoulders. IMPRESSION: 1. Correlate for CHF.
[2018-04-11 13:14] LABS: Band Neutrophils % 9 %; Basophils # (M) 0.13 k/uL (0-0.2); Lymphocytes # (M) 0.38 k/uL (1.0-4.8); Metamyelocytes # (M) 0.51 k/uL (0); Metamyelocytes % 4 %; Monocytes # (M) 0.51 k/uL (0-1.0); Myelocytes % 7 %; Neutrophils % (M) 74 %; Nucleated Red Blood Cells 1 /100 WBC (0-0); Total Cells Counted 200
[2018-04-11 13:15] LABS: Myelocytes # (M) 0.89 k/uL (0); WBC 12.7 k/uL (3.8-10.6)
[2018-04-11 13:17] LABS: RBC Fragments Present; Tear Drop Cells Present
[2018-04-11 13:20] LABS: ALT 40 U/L (21-72); AST 33 U/L (17-59); Albumin 2.6 g/dL (3.5-5.0); Alkaline Phosphatase 120 U/L (38-126); Anion Gap 9 mmol/L; Blood Urea Nitrogen 33 mg/dL (9-20); Calcium 8.1 mg/dL (8.4-10.2); Carbon Dioxide 22 mmol/L (22-30); Chloride 106 mmol/L (98-107); Glucose 122 mg/dL (74-99); Magnesium 1.7 mg/dL (1.6-2.3); Sodium 137 mmol/L (137-145); Total Bilirubin 2.1 mg/dL (0.2-1.3); Total Protein 4.5 g/dL (6.3-8.2)
[2018-04-11 13:28] LABS: Creatine Kinase MB 3.6 ng/mL (0.0-2.4); Troponin I 0.478 ng/mL (0.000-0.034)
[2018-04-11] MEDS ORDERED: NALOXONE 0.4 MG/ML 1 ML VIAL IV PRN (14:17)
[2018-04-11 14:58] LABS: Glucose,Whole Blood 131 mg/dL (75-99)
--- NOTE | 2018-04-11 16:45 | CONS ---
CONSULTATION CHIEF COMPLAINT: Chest pain. This is a 78-year-old gentleman with history of coronary artery disease, status post CABG with CHARLES to LAD, venous graft to diagonal OM, peripheral vascular disease, status post recent revascularization of the right leg by Dr. Britton and history of anemia, status post prior blood transfusions, comes into hospital complaining of chest pain and was found to be in atrial fib flutter with rapid ventricular rate. Cardiology had been consulted for the same. At the time of my evaluation, patient heart rate is better controlled. Chest pain had resolved. Troponin is elevated and he is severely anemic. He is on multiple anticoagulants including aspirin, Plavix and Xarelto. 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 First set of troponin appears slightly elevated. EKG showed changes of subendocardial ischemia. He had an echocardiogram prior to last visit that showed normal LV function with moderate to severe pulmonary hypertension. PAST MEDICAL HISTORY: Significant for CAD, status post CABG, hypertension, dyslipidemia, peripheral vascular disease, prior bilateral inguinal hernia and umbilical hernia repair, prior PTBA of superficial femoral artery, and more recent vascular intervention, chronic atrial flutter. MEDICATIONS: Are as charted. ALLERGIES: No known drug allergies. FAMILY HISTORY: Negative for premature coronary artery disease. SOCIAL HISTORY: Denies current smoking, EtOH abuse, or drug abuse. REVIEW OF SYSTEMS: HEENT is unremarkable. CARDIAC: As described above. RESPIRATORY: As described above. GI is significant for guaiac-positive stools. GENITOURINARY: Negative. ALLERGY/MUSCULOSKELETAL: Significant for arthritis. PSYCHOSOCIAL: Negative. ENDOCRINE: Negative. DERM: Negative. CONSTITUTIONAL: Negative. ONCOLOGICAL: Negative. HEMATOLOGICAL: Negative. MUSCULOSKELETAL: Significant for chronic right lower extremity ischemia. EXAM: On exam, he is comfortable at rest. Heart rate is around 60 to 70 beats per minute. Blood pressure is 110/70, respirations 18. Chest exam reveals diminished air entry at the bases. Heart exam reveals first and second heart sounds and a systolic murmur at the left lower sternal border. Abdomen is soft. Exam of the extremities reveals leg edema on the right side with diminished pulses and blackish discoloration of the toe. ASSESSMENT: 1. Atrial flutter with rapid ventricular rate. 2. Severe symptomatic anemia. 3. Mild troponin elevation. 4. Peripheral vascular disease. 5. Chronic atrial flutter. PLAN: Will treat the patient with optimal medical therapy. Transfuse the patient to maintain hemoglobin around 8. He is not a candidate for any invasive procedures at this time. The exact source of blood loss is unclear. I am going to review his old records. The patient has chronic low hemoglobin. I will talk to primary care physician about the long-term anticoagulation with the anticoagulants and the antiplatelet agents. MMJAZMINL / FAIZAN: [id number] /
[2018-04-11] MEDS ORDERED: FUROSEMIDE 10 MG/ML 4 ML VIAL IV STA (17:04)
[2018-04-11] MEDS ORDERED: Magnesium Replacement Protocol 1 EACH MISC MISCELLANE PRN (17:06)
[2018-04-11] MEDS: oxyCODONE-APAP 5-325MG 1 EACH TAB PO PRN ×2 (17:29→23:19)
[2018-04-11] MEDS: MAGNESIUM SULFATE-D5W PMX 1 GM in DEXTROSE/WATER 1 100ML.BAG IVPB SCH ×2 (17:29→18:37)
[2018-04-11 19:08] LABS: Anisocytosis Moderate; MCH 29.2 pg (25.0-35.0); MCHC 32.7 g/dL (31.0-37.0); MCV 89.2 fL (80.0-100.0); Mean Platelet Volume 9.6; Platelet Count 233 k/uL (150-450); Poikilocytosis Slight; RBC 2.18 m/uL (4.30-5.90); RDW 21.8 % (11.5-15.5)
[2018-04-11 19:19] LABS: HCT 19.4 % (39.0-53.0); HGB 6.4 gm/dL (13.0-17.5)
[2018-04-11] MEDS ORDERED: FUROSEMIDE 10 MG/ML 2 ML VIAL IV ONE (19:27)
[2018-04-11 19:36] LABS: Creatine Kinase MB 7.1 ng/mL (0.0-2.4); Troponin I 1.48 ng/mL (0.000-0.034)
[2018-04-11] MEDS: PANTOPRAZOLE 40 MG/10 ML VIAL IVP SCH (20:35)
[2018-04-11] MEDS: ATORVASTATIN 40 MG TAB PO SCH (20:41)
[2018-04-11] MEDS: DOXAZOSIN 4 MG TAB PO SCH (20:41)
[2018-04-11] MEDS: METOPROLOL TARTRATE 50 MG TAB PO SCH (20:41)
[2018-04-11 20:54] LABS: Band Neutrophils % 5 %; Eosinophils # (M) 0.13 k/uL (0-0.7); Metamyelocytes % 3 %; Myelocytes % 10 %; Neutrophils % (M) 74 %; Nucleated Red Blood Cells 2 /100 WBC (0-0); Total Cells Counted 200
[2018-04-11 20:55] LABS: Large Platelets Present; Lymphocytes # (M) 0.64 k/uL (1.0-4.8); Metamyelocytes # (M) 0.38 k/uL (0); Monocytes # (M) 0.38 k/uL (0-1.0); Myelocytes # (M) 1.28 k/uL (0); Poikilocytosis (M) Present; Polychromasia Present; Toxic Vacuolation Present; WBC 12.8 k/uL (3.8-10.6)
[2018-04-11 20:56] LABS: Ovalocytes Present; Tear Drop Cells Present
[2018-04-12 03:57] LABS: Anisocytosis Moderate; HCT 20.5 % (39.0-53.0); MCH 30.2 pg (25.0-35.0); MCHC 34.6 g/dL (31.0-37.0); MCV 87.4 fL (80.0-100.0); Mean Platelet Volume 9.2; Platelet Count 233 k/uL (150-450); Poikilocytosis Slight; RBC 2.35 m/uL (4.30-5.90); RDW 20.5 % (11.5-15.5)
[2018-04-12 04:07] LABS: Albumin 2.4 g/dL (3.5-5.0); Chloride 105 mmol/L (98-107); Glucose 101 mg/dL (74-99); Potassium 3.7 mmol/L (3.5-5.1); Sodium 138 mmol/L (137-145); Total Protein 4.2 g/dL (6.3-8.2)
[2018-04-12 04:09] LABS: ALT 52 U/L (21-72); AST 36 U/L (17-59); Alkaline Phosphatase 105 U/L (38-126); Anion Gap 10 mmol/L; Blood Urea Nitrogen 38 mg/dL (9-20); Calcium 7.8 mg/dL (8.4-10.2); Carbon Dioxide 23 mmol/L (22-30); Phosphorus 2.6 mg/dL (2.5-4.5); Total Bilirubin 2.5 mg/dL (0.2-1.3)
[2018-04-12 04:20] LABS: HGB 7.1 gm/dL (13.0-17.5)
[2018-04-12 04:41] LABS: Band Neutrophils % 7 %; Creatine Kinase MB 7.1 ng/mL (0.0-2.4); Eosinophils # (M) 0.12 k/uL (0-0.7); Lymphocytes # (M) 0.86 k/uL (1.0-4.8); Metamyelocytes # (M) 0.98 k/uL (0); Metamyelocytes % 8 %; Monocytes # (M) 0.74 k/uL (0-1.0); Myelocytes # (M) 0.62 k/uL (0); Myelocytes % 5 %; Neutrophils % (M) 69 %; Nucleated Red Blood Cells 3 /100 WBC (0-0); Total Cells Counted 200; Troponin I 1.85 ng/mL (0.000-0.034); WBC 12.3 k/uL (3.8-10.6)
[2018-04-12 04:42] LABS: Large Platelets Present; Toxic Vacuolation Present
[2018-04-12 04:43] LABS: Poikilocytosis (M) Present; Polychromasia Present
[2018-04-12] MEDS: oxyCODONE-APAP 5-325MG 1 EACH TAB PO PRN ×4 (04:48→21:06)
--- NOTE | 2018-04-12 04:48 | HP ---
HISTORY AND PHYSICAL ATTENDING PHYSICIAN: Dr. Jerica Franklin. CHIEF COMPLAINT: Chest pain. HISTORY OF PRESENT ILLNESS: 78-year-old gentleman presented to the emergency room via ambulance. The patient had chest pain across his chest associated with shortness of breath and diaphoresis. The patient seen by EMS, given nitroglycerin with some help. He was given morphine and another nitro and subsequently brought into the emergency room. Symptoms improved. In the emergency room, the patient was noted to have significant ST depressions in the anterior leads. The patient was seen by Cardiology who recommended only medical therapy. The patient recently has undergone surgery to his right groin for his peripheral arterial disease and had a pseudoaneurysm. He also had a significant retroperitoneal hemorrhage after the procedure. The patient has underlying myeloproliferative disorder and has been transfused to maintain hemoglobin above 7. The patient did have a hemoglobin of 5.9 today. He complains of shortness of breath and no further chest pain. The patient has significant peripheral arterial disease and his right leg had angioplasty done. The patient has pain in the foot which is improving. In the emergency room, stool for occult blood was positive. The patient has been on aspirin, Plavix, and Xarelto. Interestingly, his INR was 2.5. The patient does have atrial fibrillation, flutter. Also has congestive cardiac failure secondary to diastolic dysfunction. PAST MEDICAL HISTORY: The patient's past medical history significant for: 1. Coronary artery disease with previous CABG. 2. History of peripheral arterial disease with surgical interventions. 3. History of COPD. 4. History of myeloproliferative disorder. 5. Ex-smoker. 6. History of hypertension. 7. History of hyperlipidemia. PAST SURGICAL HISTORY: Significant for CABG, peripheral arterial surgeries. Also gastroscopy. 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 However, due to significant thrombocytosis, leukocytosis, the patient's surgery has been postponed. Subsequent to that, he had significant peripheral arterial disease with rest pain and the surgery has been postponed, thus esophageal surgery has been postponed. PERSONAL HISTORY: Ex-smoker alcohol, ex. ALLERGIES: None known. MEDICATIONS: Medications at present include: 1. Oxycodone 5/325 q6h. 2. Hytrin 5 mg daily. 3. Aldactone 25 mg daily. 4. Jakafi 25 mg b.i.d. it has been on hold. 5. Xarelto 15 mg daily. 6. Protonix 40 mg b.i.d. 7. Metoprolol 50 mg b.i.d. 8. Lasix 40 mg b.i.d. 9. Vasotec 5 mg daily. 10.Plavix 75 mg daily. 11.Lipitor 40 mg daily. 12.Aspirin 81 mg daily. SOCIAL HISTORY: Patient is , lives with his spouse. FAMILY MEDICAL HISTORY: Significant for history of atherosclerosis in the family. REVIEW OF SYSTEMS: NEURO: Denies any headaches or dizziness. Psych: No anxiety. Cardiac: Denies chest pain, angina, palpitations, at present, earlier had chest pain. Respiratory: Complains of shortness of breath. No cough, no hemoptysis. GI no nausea, vomiting, abdominal pain, diarrhea, not melanotic stool, but some dark stool. : No symptoms of hematuria or dysuria. Extremities: Trace edema. Has pain in the right foot. Constitutional: No fever or chills. Hematological: Anemia and history of myeloproliferative disorder. SKIN: No rashes. PHYSICAL EXAMINATION: GENERAL: A 78-year-old chronically appearing gentleman in no distress at present. VITAL SIGNS: Vital signs reveals temperature 98.4, pulse 94, respiration 18, blood pressure 106/57, pulse ox 98% with oxygen. HEENT: Normocephalic. NECK: No JVD. Neck is decreased range of motion. Pupils are reactive. Nostrils clear. Oral cavity is moist. Conjunctivae pale, nonicteric. CHEST: Examination actually relatively clear. CARDIAC: Distant heart sounds S1, S2 with no gallops. Systolic murmur 2/6 left sternal border. Right 2nd intercostal space. Irregularly, irregular rhythm. ABDOMEN: Soft. Bowel sounds normal. No organomegaly. No abdominal bruits. EXTREMITIES: Reveal surgical site right groin healed. Ecchymosis of the genitals and groin area. Right leg 4th toe has a small superficial eschar which is with no surrounding erythema. Still sensitive to touch, but the patient's foot is much warmer. Can feel a pedal pulse on the right side. I do not feel a pedal pulse on the left side. NEUROLOGICAL: Awake, alert, oriented x3 with well-coordinated movements. LABORATORY ASSESSMENT: EKG which reveals marked ST depression anterior leads. CPK is 39. Repeat was 65. Troponin was 0.478. Stool occult positive. Albumin 2.6, total bilirubin 2.1. Glucose 122, BUN 33. Electrolytes are normal. INR 2.5. Has myelocytes, metamyelocytes, and nucleated RBCs in the periphery, platelet count is 232, hemoglobin 5.9, white count 12.7. ASSESSMENT: 1. Acute subendocardial myocardial infarction. 2. Anemia secondary to recent blood loss and myeloproliferative disorder. 3. Guaiac-positive stool. 4. History of esophageal dysplasia. 5. Chronic obstructive pulmonary disease. 6. Chronic atrial fibrillation/flutter. 7. Anticoagulated status. 8. Peripheral arterial disease with recent surgical procedures. 9. Intraperitoneal hemorrhage recently. PLAN: Patient at present is stable. Symptoms suggest some acute congestive heart failure secondary to diastolic dysfunction. Continue present medical regimen. Patient's condition discussed with the patient. The patient will be given diuretics through the IV. Blood transfusion as after the 1st unit of blood the patient's hemoglobin is still 6.4. The patient's condition remains guarded. Prognosis guarded. The patient has been seen by Cardiology. The patient at present on Cardizem drip to help control heart rate. Prognosis guarded. MMODL / IJN: [id number] /
--- NOTE | 2018-04-12 07:19 | XR ---
EXAMINATION TYPE: XR chest 1V DATE OF EXAM: 04/12/2018 COMPARISON: 04/11/2018 HISTORY: Follow-up for shortness of breath TECHNIQUE: Single frontal view of the chest is obtained. FINDINGS: The previously seen pleural effusions appear to have improved in the interim. There remain s mild pulmonary vascular congestion and right basilar airspace disease. Cardiomegaly and post CABG c hanges the chest are redemonstrated as well as diffuse osseous demineralization. IMPRESSION: Mildly improving decompensated congestive heart failure.
[2018-04-12] MEDS: FUROSEMIDE 10 MG/ML 4 ML VIAL IV SCH ×2 (08:39→16:47)
[2018-04-12] MEDS: SPIRONOLACTONE 25 MG TAB PO SCH (08:40)
[2018-04-12] MEDS: LISINOPRIL 10 MG TAB PO SCH (08:40)
[2018-04-12] MEDS: PANTOPRAZOLE 40 MG/10 ML VIAL IVP SCH ×2 (08:40→22:34)
[2018-04-12] MEDS: CLOPIDOGREL 75 MG TAB PO SCH (08:40)
[2018-04-12] MEDS: METOPROLOL TARTRATE 50 MG TAB PO SCH ×2 (08:40→23:50)
[2018-04-12] MEDS ORDERED: PANTOPRAZOLE 40 MG/10 ML VIAL IVP SCH (09:00)
--- NOTE | 2018-04-12 09:14 | ECHOF ---
Referral Reason:Chest pain MEASUREMENTS -------- HEIGHT: 170.2 cm WEIGHT: 78.0 kg BP: 013/57 RVIDd: 3.8 cm (< 3.3) IVSd: 1.2 cm (0.6 - 1.1) LVIDd: 4.4 cm (3.9 - 5.3) LVPWd: 1.1 cm (0.6 - 1.1) IVSs: 1.4 cm LVIDs: 4.2 cm LVPWs: 1.1 cm LA Diam: 3.8 cm (2.7 - 3.8) LAESV Index (A-L): 54.56 ml/m Ao Diam: 3.1 cm (2.0 - 3.7) AV Cusp: 1.8 cm (1.5 - 2.6) LA Diam: 4.0 cm (2.7 - 3.8) MV EXCURSION: 15.965 mm (> 18.000) MV EF SLOPE: 79 mm/s (70 - 150) EPSS: 0.3 cm MV E Neville: 1.06 m/s MV DecT: 113 ms MV A Neville: 0.49 m/s MV E/A Ratio: 2.15 RAP: 20.00 mmHg RVSP: 95.53 mmHg FINDINGS -------- Atrial fibrillation. This was a technically good study. The left ventricular size is normal. Overall left ventricular systolic function is moderately impai red with, an EF between 35 - 40 %. Anterseptal Hypokinesis Septal Hypokinesis The right ventricle is severely enlarged. The left atrium is markedly dilated. LA is severely dilated >40 ml/m2 The right atrial size is normal. There is mild aortic valve sclerosis. There is mild aortic regurgitation. Mild mitral annular calcification present. Moderate mitral regurgitation is present. Severe tricuspid regurgitation present. There is severe pulmonary hypertension. The right ventric ular systolic pressure, as measured by Doppler, is 95.53mmHg. Trace/mild (physiologic) pulmonic regurgitation. The aortic root size is normal. The inferior vena cava is dilated with no significant inspiratory collapse which is consistent estima ema right atrial pressure of >20 mmHg. There is no pericardial effusion. CONCLUSIONS -------- 1. Atrial fibrillation. 2. This was a technically good study. 3. The left ventricular size is normal. 4. Overall left ventricular systolic function is moderately impaired with, an EF between 35 - 40 %. 5. Anterseptal Hypokinesis 6. Septal Hypokinesis 7. The right ventricle is severely enlarged. 8. The left atrium is markedly dilated. 9. LA is severely dilated >40 ml/m2 10. The right atrial size is normal. 11. There is mild aortic valve sclerosis. 12. There is mild aortic regurgitation. 13. Mild mitral annular calcification present. 14. Moderate mitral regurgitation is present. 15. Severe tricuspid regurgitation present. 16. There is severe pulmonary hypertension. 17. The right ventricular systolic pressure, as measured by Doppler, is 95.53mmHg. 18. Trace/mild (physiologic) pulmonic regurgitation. 19. The aortic root size is normal. 20. The inferior vena cava is dilated with no significant inspiratory collapse which is consistent es timated right atrial pressure of >20 mmHg. 21. There is no pericardial effusion. TAB CUTTER: Maria Isabel Julien RDCS
--- NOTE | 2018-04-12 10:08 | P.PN ---
Subjective Progress Note Date: 04/12/18 Principal diagnosis: Acute myocardial infarction 78-year-old gentleman was admitted to the hospital with acute myocardial infarction. Patient had ST depressions anterior leads. Troponins are elevated. Patient has been sent by cardiology. No intervention planned. The patient also has evidence of GI bleeding had a positive guaiac stool. Patient does have a known history of esophagitis and Wilson's esophagus with dysplasia. The patient has been on aspirin and Plavix on Xarelto. Patient does have chronic atrial fibrillation flutter. Patient does have recent stents and angioplasties done. He has significant retroperitoneal bleeding and pseudoaneurysm right groin recently fixed. The patient complains of shortness of breath with adequate oxygenation's with oxygen. His hemoglobin was 5.9 transfused to 7.1 today. He had another unit of blood ordered by the [employer]. Patient does have a history of myeloproliferative disorder and his hemoglobins generally run between 7 and 8. The patient has an ischemic right foot and complains of pain in the leg. Some of the pain is suggestive of neurotic pain. We will increase his pain medication but also had Neurontin. Patient's condition is discussed personally with Dr. Pearlta and , the heliarc welder and Dr. Britton from cardiology. Dr. Britton is not on the case. He had recently done angioplasty on the patient's peripheral arteries REVIEW OF SYSTEMS: Neuro: Denies any headaches dizziness. Psych: Denies anxiety depression feels oriented. Cardiac: Denies chest pain and angina palpitations. Respiratory: Complains of shortness of breath cough. GI: Denies nausea vomiting or abdominal pain. No diarrhea or constipation, no bowel movement yet. : Denies dysuria hematuria. Extremities: Pain in the right leg and foot. Trace edema Skin: Superficial ulceration right fourth toe. Constitutional: No fever, chills. Objective - Vital Signs Vital signs: Vital Signs Temp 98.2 F 04/12/18 09:17 Pulse 97 04/12/18 09:17 Resp 19 04/12/18 09:17 BP 113/58 04/12/18 09:17 Pulse Ox 99 04/12/18 09:17 Intake & Output 04/11/18 04/12/18 04/12/18 18:59 06:59 18:59 Intake Total 610 530 580 Output Total 500 2300 100 Balance 110 -1770 480 Weight 82.5 kg 75.9 kg Intake: IV 180 220 30 0.9 @ KVO 80 120 30 Magnesium Sulfate-D5w Pmx 100 100 1 gm In Dextrose/Water 1 100ml.bag @ 100 mls/hr IVPB Q1H [facility] Rx#: [id number] Oral 120 240 Blood Product 310 310 310 Rc As-1 Unit 0 310 [id number] Rc As-1 Unit 310 [id number] Rc As-1 Unit 310 [id number] Output: Urine 500 2300 100 Other: Voiding Method Urinal # Voids 0 0 PHYSICAL EXAMINATION: Cooperative, at present in no acute distress. HEENT: Neck decreased range of motion, no JVD o'clock or bruits Chest: Clear to auscultation except for some decreased airflow at the base Cardiac: Normal S1-S2 no gallops systolic murmur 2/6 left sternal border. Abdomen: Soft bowel sounds present. Extremities: Trace edema sensitive tender foot but improved forth right toe skin small necrotic area Neurologically: Awake, alert, oriented with well-coordinated movements. - Labs CBC & Chem 7: 04/12/18 03:37 04/12/18 03:37 Labs: Abnormal Lab Results - Last 24 Hours (Table) 04/11/18 04/11/18 04/11/18 Range/Units 12:32 12:32 12:32 WBC 12.7 H (3.8-10.6) k/uL RBC 1.98 L (4.30-5.90) m/uL Hgb 5.9 L* D (13.0-17.5) gm/dL Hct 17.6 L* (39.0-53.0) % RDW 22.4 H (11.5-15.5) % Neutrophils # (Manual) 10.50 H (1.3-7.7) k/uL Lymphocytes # (Manual) 0.38 L (1.0-4.8) k/uL Metamyelocytes # (Man) 0.51 H (0) k/uL Myelocytes # (Manual) 0.89 H (0) k/uL Nucleated RBCs 1 H (0-0) /100 WBC PT (9.0-12.0) sec INR (<1.2) APTT (22.0-30.0) sec BUN 33 H (9-20) mg/dL Glucose 122 H (74-99) mg/dL POC Glucose (mg/dL) (75-99) mg/dL Calcium 8.1 L (8.4-10.2) mg/dL Total Bilirubin 2.1 H (0.2-1.3) mg/dL Total Creatine Kinase 39 L (55-170) U/L CK-MB (CK-2) 3.6 H* (0.0-2.4) ng/mL Troponin I 0.478 H* (0.000-0.034) ng/mL Total Protein 4.5 L (6.3-8.2) g/dL Albumin 2.6 L (3.5-5.0) g/dL Crossmatch 04/11/18 04/11/18 04/11/18 Range/Units 12:32 12:32 14:56 WBC (3.8-10.6) k/uL RBC (4.30-5.90) m/uL Hgb (13.0-17.5) gm/dL Hct (39.0-53.0) % RDW (11.5-15.5) % Neutrophils # (Manual) (1.3-7.7) k/uL Lymphocytes # (Manual) (1.0-4.8) k/uL Metamyelocytes # (Man) (0) k/uL Myelocytes # (Manual) (0) k/uL Nucleated RBCs (0-0) /100 WBC PT 22.2 H (9.0-12.0) sec INR 2.5 H (<1.2) APTT 32.8 H (22.0-30.0) sec BUN (9-20) mg/dL Glucose (74-99) mg/dL POC Glucose (mg/dL) 131 H (75-99) mg/dL Calcium (8.4-10.2) mg/dL Total Bilirubin (0.2-1.3) mg/dL Total Creatine Kinase (55-170) U/L CK-MB (CK-2) (0.0-2.4) ng/mL Troponin I (0.000-0.034) ng/mL Total Protein (6.3-8.2) g/dL Albumin (3.5-5.0) g/dL Crossmatch See Detail 04/11/18 04/11/18 04/12/18 Range/Units 18:46 18:46 03:37 WBC 12.8 H 12.3 H (3.8-10.6) k/uL RBC 2.18 L 2.35 L (4.30-5.90) m/uL Hgb 6.4 L* 7.1 L (13.0-17.5) gm/dL Hct 19.4 L* 20.5 L (39.0-53.0) % RDW 21.8 H 20.5 H (11.5-15.5) % Neutrophils # (Manual) 10.10 H 9.30 H (1.3-7.7) k/uL Lymphocytes # (Manual) 0.64 L 0.86 L (1.0-4.8) k/uL Metamyelocytes # (Man) 0.38 H 0.98 H (0) k/uL Myelocytes # (Manual) 1.28 H 0.62 H (0) k/uL Nucleated RBCs 2 H 3 H (0-0) /100 WBC PT (9.0-12.0) sec INR (<1.2) APTT (22.0-30.0) sec BUN (9-20) mg/dL Glucose (74-99) mg/dL POC Glucose (mg/dL) (75-99) mg/dL Calcium (8.4-10.2) mg/dL Total Bilirubin (0.2-1.3) mg/dL Total Creatine Kinase (55-170) U/L CK-MB (CK-2) 7.1 H* (0.0-2.4) ng/mL Troponin I 1.480 H* (0.000-0.034) ng/mL Total Protein (6.3-8.2) g/dL Albumin (3.5-5.0) g/dL Crossmatch 04/12/18 04/12/18 Range/Units 03:37 03:37 WBC (3.8-10.6) k/uL RBC (4.30-5.90) m/uL Hgb (13.0-17.5) gm/dL Hct (39.0-53.0) % RDW (11.5-15.5) % Neutrophils # (Manual) (1.3-7.7) k/uL Lymphocytes # (Manual) (1.0-4.8) k/uL Metamyelocytes # (Man) (0) k/uL Myelocytes # (Manual) (0) k/uL Nucleated RBCs (0-0) /100 WBC PT (9.0-12.0) sec INR (<1.2) APTT (22.0-30.0) sec BUN 38 H (9-20) mg/dL Glucose 101 H (74-99) mg/dL POC Glucose (mg/dL) (75-99) mg/dL Calcium 7.8 L (8.4-10.2) mg/dL Total Bilirubin 2.5 H (0.2-1.3) mg/dL Total Creatine Kinase (55-170) U/L CK-MB (CK-2) 7.1 H* (0.0-2.4) ng/mL Troponin I 1.850 H* (0.000-0.034) ng/mL Total Protein 4.2 L (6.3-8.2) g/dL Albumin 2.4 L (3.5-5.0) g/dL Crossmatch Assessment and Plan Assessment: ASSESSMENT: 1. Acute non-ST elevated myocardial infarction. 2. No coronary artery disease and atherosclerosis. 3. Anemia secondary to acute blood loss and myeloproliferative disorder. 4. Upper GI bleeding. 5. Peripheral arterial disease. 6. Recent retroperitoneal hematoma. PLAN: Continue present medical regimen. She has received 2 units of blood. The patient's hemoglobins generally average between 7 and 8. The patient is being followed by GI. He is off Xarelto and aspirin. He is still on Plavix. The patient prognosis remains guarded condition discussed with various physicians. After discussion with Dr. Peralta he did agree to discontinue the request for CAT scan abdomen and pelvis
--- NOTE | 2018-04-12 11:37 | P.CNPUL ---
History of Present Illness Consult date: 04/12/18 Requesting physician: Leon Franklin Reason for consult: other (Acute myocardial infarction and profound anemia) Chief complaint: Chest pain History of present illness: This is a 78-year-old white male with history of multiple medical problems, patient was recently in the hospital for retroperitoneal bleeding, which was felt to be iatrogenic from recent vascular surgery. Patient was eventually discharged home on 04/2018, patient was readmitted yesterday mostly with acute onset of chest pain started at 6 AM, and he was complaining of shortness of breath, and felt lightheaded and diaphoretic. EMS arrived, patient received nitroglycerin sublingually, and the pain resolved. He also received morphine sulfate and aspirin. Patient has also been complaining of having black stools for quite some time, workup in the ER revealed a hemoglobin of 5.9, and revealed abnormal cardiac panel with troponin of 0.478, has been rising over the last 24 hours. He was seen by cardiology on consultation yesterday, address his atrial flutter with RVR, felt the patient had severe symptomatic anemia, and mild troponin elevation, but clearly the findings are more or less consistent with non-ST elevation myocardial infarction. Patient is known to have history of coronary artery disease, previous CABG, severe peripheral vessel occlusive disease, recent PT BA of superficial femoral artery and recent retroperitoneal hematoma related to his recent surgery. Patient has been on Plavix and Xarelto as well as aspirin prior to admission. 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 EKG on this admission showed subendocardial ischemia. Echocardiogram from the last visit showed normal LV function, and moderate severe pulmonary hypertension. During my evaluation, patient has no headache, no blurred vision, no dizziness, no chest pain, no nausea, no vomiting, no abdominal pain. Patient did have chronic melanotic stools. Since admission, the patient did receive 3 units of packed RBCs, hemoglobin at present is 7.1. Review of Systems 14 point review of systems were obtained, please refer to pertinent positives in HPI, otherwise remaining systems are negative. Past Medical History Past Medical History: Blood Disorder, Coronary Artery Disease (CAD), Heart Failure, GERD/Reflux, Hyperlipidemia, Hypertension, Prostate Disorder Additional Past Medical History / Comment(s): blood disorder -pt unsure of what it's called, but is seen at [facility] , coronary artery disease, previous bypass surgery, right-sided heart failure with severe pulmonary hypertension, acid reflux, hypertension, hyperlipidemia, BPH, peripheral vascular disease with previous history of ischemic right lower extremity and previous right femoral endarterectomy with subsequent vascular intervention. The patient currently has a right foot toe which is ischemic/4rth toe History of Any Multi-Drug Resistant Organisms: Acinetobacter (MDRO) Date of last positivie culture/infection: 11/18/17 MDRO Source:: MDRO ACINETOBACTER SPUTUM Past Surgical History: Cholecystectomy, Coronary Bypass/CABG, Heart Catheterization, Hernia Repair Additional Past Surgical History / Comment(s): Cardiac catheterization on 2013, right femoral artery/common femoral artery endarterectomy. 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 tom inguinal hernia repair, coronary artery bypass surgery, EGD, colonoscopy Past Anesthesia/Blood Transfusion Reactions: No Reported Reaction Smoking Status: Former smoker - Past Family History Brother(s) Family Medical History: Cancer Additional Family Medical History / Comment(s): 2 with lung and 1 with prostate Mother Family Medical History: Myocardial Infarction (ID) Father Additional Family Medical History / Comment(s): AT AGE 83 FROM "HARDENING OF THE ARTERIES" Medications and Allergies Home Medications Medication Instructions Recorded Confirmed Type Atorvastatin [Lipitor] 40 mg PO HS 09/27/14 04/11/18 History Metoprolol Tartrate [Lopressor] 50 mg PO BID 09/27/14 04/11/18 History Terazosin [Hytrin] 5 mg PO HS 09/27/14 04/11/18 History Enalapril [Vasotec] 5 mg PO DAILY #30 tablet 10/12/14 04/11/18 Rx Pantoprazole [Protonix] 40 mg PO BID 11/12/17 04/11/18 History Spironolactone [Aldactone] 25 mg PO DAILY 11/12/17 04/11/18 History Furosemide [Lasix] 40 mg PO BID #0 11/21/17 04/11/18 Rx Ruxolitinib Phosphate [Jakafi] 25 mg PO BID 02/07/18 04/11/18 History oxyCODONE HCL/ACETAMINOPHEN 1 tab PO Q6HR PRN 03/05/18 04/11/18 History [Endocet 5-325 mg] Aspirin 81 mg PO DAILY #30 chew 04/07/18 04/11/18 Rx Clopidogrel [Plavix] 75 mg PO DAILY #30 tab 04/07/18 04/11/18 Rx Rivaroxaban [Xarelto] 15 mg PO W/SUPPER #30 tab 04/07/18 04/11/18 Rx Allergies Allergy/AdvReac Type Severity Reaction Status Date / Time No Known Allergies Allergy Verified 04/11/18 13:06 Physical Exam Vitals: Vital Signs Temp Pulse Pulse Resp BP Pulse Ox 04/12/18 11:00 72 16 121/65 100 04/12/18 10:00 98 19 118/75 100 04/12/18 09:17 98.2 F 97 19 113/58 99 04/12/18 09:00 100 20 120/55 100 04/12/18 08:30 96 20 112/55 99 04/12/18 08:00 98.2 F 96 18 119/64 99 04/12/18 07:47 96 04/12/18 07:30 96 17 113/54 96 04/12/18 07:00 95 26 H 109/52 94 L 04/12/18 06:44 98.7 F 96 24 109/48 04/12/18 06:30 96 24 90/49 99 04/12/18 06:14 98.6 F 96 24 90/49 97 04/12/18 06:04 98.8 F 98 25 H 93/45 95 04/12/18 06:00 97 20 98 04/12/18 05:30 96 19 95/41 97 04/12/18 05:00 96 19 108/51 98 04/12/18 04:30 96 23 105/52 98 04/12/18 04:00 96 27 H 107/51 97 04/12/18 03:30 96 22 103/52 99 04/12/18 03:00 98.8 F 95 24 107/57 98 04/12/18 02:30 95 28 H 84/32 99 04/12/18 02:00 95 24 99/50 100 04/12/18 01:30 95 25 H 98/49 100 04/12/18 01:00 94 35 H 96/52 100 04/12/18 00:38 98.9 F 92 22 100/51 98 18 00:30 94 25 H 100/51 93 L 04/12/18 00:00 98.5 F 94 23 101/51 96 18 23:30 93 25 H 97/54 98 18 23:09 82 21 100/49 99 04/11/18 23:00 99 25 H 91/49 96 18 22:41 98.5 F 93 26 H 91/49 95 18 22:30 93 24 98/51 95 04/11/18 22:11 98.5 F 90 24 94/50 99 04/11/18 22:01 98.6 F 92 26 H 100/67 97 04/11/18 22:00 90 24 99/48 99 04/11/18 21:30 84 18 99 04/11/18 21:00 95 18 92/73 99 04/11/18 20:30 95 30 H 113/65 99 04/11/18 20:21 100 04/11/18 20:00 98.2 F 95 23 99/54 99 18 19:30 94 20 103/51 99 18 19:00 95 22 99/52 98 0818 18:30 94 24 99/50 100 18 18:00 94 20 111/57 99 18 17:30 93 21 118/57 100 18 17:27 98.2 F 94 19 118/57 100 0818 17:00 94 20 97/50 99 0818 16:30 93 18 113/57 100 18 16:03 98.4 F 93 18 112/59 98 0818 16:00 93 18 112/59 100 0818 15:45 93 16 105/55 100 0818 15:33 98.4 F 94 18 106/57 98 /0818 15:30 94 20 106/57 100 0818 15:23 98.5 F 94 18 110/55 100 18 15:15 98.5 F 93 20 96/55 100 0818 14:37 98.6 F 94 16 109/59 99 0818 14:15 94 101/54 99 06/08/18 13:55 94 111/59 99 04/11/18 13:14 94 103/57 99 04/11/18 12:47 96 120 H 94/50 100 04/11/18 12:36 97.1 F L 120 H 18 91/55 100 Intake and Output 04/11/18 04/12/18 04/12/18 22:59 06:59 14:59 Intake Total 760 380 640 Output Total 1600 1200 101 Balance -840 -820 539 Intake: IV 330 70 90 0.9 @ KVO 130 70 90 Magnesium Sulfate-D5w Pmx 200 1 gm In Dextrose/Water 1 100ml.bag @ 100 mls/hr IVPB Q1H [facility] Rx#: [id number] Oral 120 240 Blood Product 310 310 310 Rc As-1 Unit 0 310 [id number] Rc As-1 Unit 0 310 [id number] Rc As-1 Unit 310 [id number] Output: Urine 1600 1200 100 Stool 1 Other: Voiding Method Urinal Urinal # Voids 0 1 Weight 75.9 kg Physical Exam: Revealed a 78-year-old white male, in no distress. Head: Atraumatic, normocephalic. HEENT:[Neck is supple.] [No neck masses.] [No thyromegaly.] [No JVD.] Chest: [Diminished breath sounds at the bases, no crackles or rhonchi or wheezes. Cardiac Exam: [Normal S1 and S2, no S3 gallop, 2/6 systolic murmur throughout the precordium. Abdomen: [Soft, nontender, no megaly, no rebound, no guarding, normal bowel sounds.] Extremities: [Trace of edema, tender feet, improved fourth right toe skin small necrotic area.] Neurological Exam: [No focal neurologic deficit. Lymphatics: No lymphadenopathy. Psychiatric: Normal mood affect and mental status examination.] Results - Laboratory Findings CBC and BMP: 04/12/18 03:37 04/12/18 03:37 PT/INR, D-dimer PT 22.2 sec (9.0-12.0) H 04/11/18 12:32 INR 2.5 (<1.2) H 04/11/18 12:32 Abnormal lab findings: Abnormal Labs 04/11/18 04/11/18 04/11/18 12:32 12:32 12:32 WBC 12.7 H RBC 1.98 L Hgb 5.9 L* D Hct 17.6 L* RDW 22.4 H Neutrophils # (Manual) 10.50 H Lymphocytes # (Manual) 0.38 L Metamyelocytes # (Man) 0.51 H Myelocytes # (Manual) 0.89 H Nucleated RBCs 1 H PT INR APTT BUN 33 H Glucose 122 H POC Glucose (mg/dL) Calcium 8.1 L Total Bilirubin 2.1 H Total Creatine Kinase 39 L CK-MB (CK-2) 3.6 H* Troponin I 0.478 H* Total Protein 4.5 L Albumin 2.6 L Crossmatch 04/11/18 04/11/18 04/11/18 12:32 12:32 14:56 WBC RBC Hgb Hct RDW Neutrophils # (Manual) Lymphocytes # (Manual) Metamyelocytes # (Man) Myelocytes # (Manual) Nucleated RBCs PT 22.2 H INR 2.5 H APTT 32.8 H BUN Glucose POC Glucose (mg/dL) 131 H Calcium Total Bilirubin Total Creatine Kinase CK-MB (CK-2) Troponin I Total Protein Albumin Crossmatch See Detail 04/11/18 04/11/18 04/12/18 18:46 18:46 03:37 WBC 12.8 H 12.3 H RBC 2.18 L 2.35 L Hgb 6.4 L* 7.1 L Hct 19.4 L* 20.5 L RDW 21.8 H 20.5 H Neutrophils # (Manual) 10.10 H 9.30 H Lymphocytes # (Manual) 0.64 L 0.86 L Metamyelocytes # (Man) 0.38 H 0.98 H Myelocytes # (Manual) 1.28 H 0.62 H Nucleated RBCs 2 H 3 H PT INR APTT BUN Glucose POC Glucose (mg/dL) Calcium Total Bilirubin Total Creatine Kinase CK-MB (CK-2) 7.1 H* Troponin I 1.480 H* Total Protein Albumin Crossmatch 04/12/18 04/12/18 03:37 03:37 WBC RBC Hgb Hct RDW Neutrophils # (Manual) Lymphocytes # (Manual) Metamyelocytes # (Man) Myelocytes # (Manual) Nucleated RBCs PT INR APTT BUN 38 H Glucose 101 H POC Glucose (mg/dL) Calcium 7.8 L Total Bilirubin 2.5 H Total Creatine Kinase CK-MB (CK-2) 7.1 H* Troponin I 1.850 H* Total Protein 4.2 L Albumin 2.4 L Crossmatch Assessment and Plan Assessment: Impression: 1 acute non-ST elevation myocardial infarction 2 profound anemia, secondary to acute blood loss and myeloproliferative disorder. His blood loss is related to his GI issues also related to his recent retroperitoneal hematoma, doubt bleeding can into the retroperitoneal area. 3 multiple comorbidities including coronary artery disease, previous CABG, chronic cor pulmonale and severe pulmonary hypertension, peripheral vessel occlusive disease, chronic ischemic right lower extremity, recent PTBA of right superficial femoral artery Recommendation: Continue present treatment plan as per cardiology, gastroenterology, may have to consider vascular surgery reevaluation. Discussed his condition with Dr. Franklin, we will go ahead and cancel his CT of the abdomen and pelvis, monitor in the ICU, transfused to keep hemoglobin above 7, GI was also consulted. Prognosis in the senior care is definitely poor and guarded. Time with Patient: Greater than 30
[2018-04-12] MEDS: GABAPENTIN 100 MG CAP PO SCH ×2 (11:38→22:34)
[2018-04-12 12:30] LABS: Anisocytosis Slight; HCT 23.6 % (39.0-53.0); HGB 7.8 gm/dL (13.0-17.5); MCH 29.1 pg (25.0-35.0); MCHC 33.2 g/dL (31.0-37.0); MCV 87.8 fL (80.0-100.0); Mean Platelet Volume 10.9; Platelet Count 226 k/uL (150-450); Poikilocytosis Slight; RBC 2.69 m/uL (4.30-5.90); RDW 19.9 % (11.5-15.5); WBC 15.4 k/uL (3.8-10.6)
--- NOTE | 2018-04-12 13:49 | PN ---
PROGRESS NOTE Jacques is a 78-year-old gentleman with history of atrial fibrillation, severe anemia, peripheral vascular disease, who presented to hospital with chest pain and atrial fibrillation with rapid ventricular rate. His heart rate is better controlled. He ruled in for myocardial infarction with a peak troponin of 1.8. He received 3 units of blood transfusion. The patient is back on Plavix and is also taking Lipitor, Zestril, Lopressor and Aldactone. He is pain free. This morning, heart rate is better controlled. On exam, vital signs are stable. Chest exam reveals good air entry bilaterally. Heart exam reveals first and second heart sounds. No gallop. Irregular rhythm. Abdomen is soft. Examination of extremities did not reveal any edema. There is 1+ pitting edema over the right leg with blackish discoloration of the toe. Labs show that creatinine is 0.7. Peak troponin was 1.8. Hemoglobin this morning is 7.8. ASSESSMENT: 1. Non ST-segment elevation myocardial infarction. 2. Peripheral vascular disease. 3. Chronic atrial fibrillation with rapid ventricular rate. 4. Severe anemia. PLAN: Patient is not a candidate for invasive procedures at this time. We will continue with supportive care, Lipitor, Plavix, Lopressor, Zestril, I will add nitrates to what he is on. Will hold on the Xarelto at this time until we have a sense of his blood loss. MMODL / IJN: [id number] /
[2018-04-12] MEDS: ISOSORBIDE MONONITRATE ER 30 MG TAB.ER.24H PO SCH (14:27)
[2018-04-12] MEDS ORDERED: POTASSIUM CHLORIDE ER 20 MEQ TAB.ER PO STA (19:15)
--- NOTE | 2018-04-12 19:22 | CONS ---
CONSULTATION DATE OF SERVICE: April 12. REQUESTING PHYSICIAN: Dr. Franklin. REASON FOR CONSULTATION: Anemia and Hemoccult-positive stool. HISTORY OF PRESENT ILLNESS: The patient is a 78-year-old pleasant white male who was admitted to hospital with chest pain and acute MS. He presented with chest pain, shortness of breath, diaphoresis since yesterday afternoon, came to the emergency room and was seen by Cardiology and presently he is undergoing medical management for acute MS. He also had a hemoglobin of 5.6 at the time of admission to the hospital. Patient was diagnosed with myeloproliferative disorder and remains transfusion-dependent and his baseline hemoglobin is around 7. This hospitalization, hemoglobin was 5.9. He received total of 3 units of blood transfusion. He denies any abdominal pain. He denies any rectal bleeding. He has been having some dark colored stool for the last few days, but the patient has also been taking iron supplements at the same time. He remains on aspirin, Plavix and Xarelto for severe peripheral vascular disease. The patient was diagnosed with Wilson's esophagus and high-grade dysplasia noted on upper endoscopy in September of 2017, and he was referred to [facility] for radiofrequency ablation. However, he was evaluated there and was scheduled for procedure, but in the meantime, he developed multiple other comorbid conditions and he was advised to follow up at [facility] once he is stable, which has not happened so far. PAST MEDICAL HISTORY: Significant for coronary artery disease and hypertension, hyperlipidemia and myeloproliferative disorder, COPD, severe peripheral vascular disease, recent right groin vascular intervention followed by pseudoaneurysm formation and severe retroperitoneal bleed a week ago. MEDICATIONS: At home, oxycodone, Hytrin, Aldactone, , Xarelto, Protonix, metoprolol, Lasix, Plavix, aspirin, Lipitor. SOCIAL HISTORY: No smoking. No alcohol use. FAMILY HISTORY: Unremarkable. REVIEW OF SYSTEMS: Cardiopulmonary: No chest pain or shortness of breath. Genitourinary: No dysuria or hematuria. Musculoskeletal unremarkable. Skin unremarkable. Endocrine unremarkable. Psychiatric unremarkable. Neurology unremarkable. ENT: Vision unremarkable. Constitutional: No recent weight loss. No fever, chills, night sweats. PAST SURGICAL HISTORY: CABG, peripheral arterial surgery, EGD in September of 2017. PHYSICAL EXAMINATION: GENERAL: He appears comfortable. No apparent distress. VITAL SIGNS: Stable. Blood pressure is 118/75, pulse rate 89, temperature 98. HEENT examination unremarkable. Conjunctivae pink. Sclerae anicteric. Oral cavity no lesions. NECK: No jugular venous distention or lymph node enlargement. CHEST: Clear to auscultation. HEART: Regular rate and rhythm. ABDOMEN: Soft, nontender, nondistended. Bowel sounds are positive. Large bruise of the left groin area. EXTREMITIES: No pedal edema. SKIN no rashes. NEUROLOGIC: Alert and oriented times three. No focal deficits. LABS: From yesterday, WBC 12.7, hemoglobin 5.9, platelets are 232. Today hemoglobin is 7.8 after he received 3 units of blood transfusion. INR is 2.5. BUN is 38 and creatinine 0.7. Troponin 1.80. IMPRESSION: 1. Acute myocardial infarction, being managed conservatively by Cardiology. 2. Severe symptomatic anemia requiring 3 units of blood transfusion. The patient does have some occult blood loss and he also stated that he had some black tarry stools in the last 3 days, but has now resolved, aspirin, Xarelto and Plavix are on hold currently. 3. 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 Baseline hemoglobin around 7. 4. History of gastroesophageal reflux disease/Wilson's esophagus with high-grade dysplasia diagnosed in September of 2017, scheduled to be seen at [facility] soon for radiofrequency ablation. 5. Atrial fibrillation on Xarelto, presently on hold. RECOMMENDATION: Continue with Protonix 40 mg daily. Since he does not have any evidence of active bleeding, I will not plan on any endoscopy intervention in the setting of an acute MS, he will be treated conservatively and transfusion as needed. I did discuss with the patient. We will plan on upper endoscopy on an outpatient basis to assess the Wilson's esophagus and dysplasia. Continue on a clear liquid diet. Thank you for this consultation. MMODL / IJN: [id number] /
[2018-04-12] MEDS: ATORVASTATIN 40 MG TAB PO SCH (22:34)
[2018-04-12] MEDS: DOXAZOSIN 4 MG TAB PO SCH (23:50)
[2018-04-13] MEDS: oxyCODONE-APAP 5-325MG 1 EACH TAB PO PRN ×5 (01:59→20:08)
[2018-04-13 04:43] LABS: Anisocytosis Moderate; MCH 29.6 pg (25.0-35.0); MCHC 33.3 g/dL (31.0-37.0); MCV 88.8 fL (80.0-100.0); Platelet Count 230 k/uL (150-450); Poikilocytosis Slight; RBC 1.97 m/uL (4.30-5.90); RDW 21.2 % (11.5-15.5); WBC 11.2 k/uL (3.8-10.6)
[2018-04-13 04:53] LABS: HCT 17.5 % (39.0-53.0); HGB 5.8 gm/dL (13.0-17.5)
[2018-04-13 04:58] LABS: Anion Gap 9 mmol/L; Blood Urea Nitrogen 39 mg/dL (9-20); Calcium 7.4 mg/dL (8.4-10.2); Carbon Dioxide 22 mmol/L (22-30); Chloride 106 mmol/L (98-107); Glucose 93 mg/dL (74-99); Magnesium 1.9 mg/dL (1.6-2.3); Phosphorus 3.3 mg/dL (2.5-4.5); Potassium 3.5 mmol/L (3.5-5.1); Sodium 137 mmol/L (137-145)
[2018-04-13] MEDS: POTASSIUM CHLORIDE ER 20 MEQ TAB.ER PO SCH ×2 (05:34→06:41)
[2018-04-13] MEDS: MAGNESIUM SULFATE-D5W PMX 1 GM in DEXTROSE/WATER 1 100ML.BAG IVPB SCH ×2 (05:41→07:03)
--- NOTE | 2018-04-13 07:08 | XR ---
EXAMINATION: XR chest 1V DATE AND TIME: 04/13/2018 6:26 AM ORDERING PROVIDER: Bernarda King CLINICAL INDICATION: CHF TECHNIQUE: AP upright portable COMPARISON: 04/12/2018 4:58 AM DESCRIPTION: Sternal sutures and mediastinal clips and EKG leads. There is a vertically oriented interface laterally on the right, with lung markings proceeding early to the right ribs and with the minor fissure uninterrupted, findings consistent with skin fold rather than pneumothorax. Cardiac silhouette mildly enlarged, unchanged. When compared to the prior study. It is mildly increased silhouetting of the pulmonary vasculature bi laterally by a fine reticular pattern of increased density throughout the lungs bilaterally, with zon es of coalescence in the right lower lobe. There is a suggestion of a scant right pleural effusion with blunting of the right costophrenic angle . IMPRESSION: 1. Mild-plus interval worsening in the overall lung inflation pattern due to, now, marked interstitia l phase pulmonary edema with concurrent alveolar phase pulmonary edema in the right lower lobe. 2. Right lower chest vertical interface seen on prior study, most consistent with skin fold. Follow-u p radiograph will clarify.
[2018-04-13] MEDS: METOPROLOL TARTRATE 50 MG TAB PO SCH ×2 (08:38→20:45)
[2018-04-13] MEDS: FUROSEMIDE 10 MG/ML 4 ML VIAL IV SCH ×2 (08:38→16:30)
[2018-04-13] MEDS: SPIRONOLACTONE 25 MG TAB PO SCH (08:38)
[2018-04-13] MEDS: PANTOPRAZOLE 40 MG/10 ML VIAL IVP SCH ×2 (08:38→20:45)
[2018-04-13] MEDS: CLOPIDOGREL 75 MG TAB PO SCH (08:38)
[2018-04-13] MEDS: ISOSORBIDE MONONITRATE ER 30 MG TAB.ER.24H PO SCH (08:38)
[2018-04-13] MEDS: LISINOPRIL 10 MG TAB PO SCH (08:39)
[2018-04-13] MEDS: GABAPENTIN 100 MG CAP PO SCH ×2 (08:39→20:45)
[2018-04-13 09:42] LABS: Appearance,Urine Clear (Clear); Bacteria,Urine Rare /hpf; Bilirubin,Urine Negative (Negative); Blood,Urine Moderate (Negative); Color,Urine Yellow; Glucose,Urine (UA) Negative (Negative); Ketones,Urine Negative (Negative); Leukocyte Esterase,Urine Negative (Negative); Nitrite,Urine Negative (Negative); PH, Urine 5.5 (5.0-8.0); Protein,Urine Negative (Negative); Specific Gravity,Urine 1.014 (1.001-1.035); WBC,Urine 1 /hpf (0-5)
--- NOTE | 2018-04-13 11:11 | CT ---
EXAMINATION TYPE: CT abdomen pelvis w con DATE OF EXAM: 04/13/2018 COMPARISON: CT abdomen and pelvis 04/01/2018 HISTORY: Anemia, recent retroperitoneal bleed CT DLP: 824.9 mGycm Automated exposure control for dose reduction was used. TECHNIQUE: Helical acquisition of images was performed from the lung bases through the pelvis. CONTRAST: Performed without Oral Contrast and with IV Contrast, patient injected with 100 mL of Isovue 300. FINDINGS: VISUALIZED LOWER CHEST: Bilateral pleural effusions, moderate/marked on the right and relatively mild on the left, with associated passive atelectasis - greater on the right. Mild/moderate cardiomegaly with panchamber enlargement and coronary calcifications noted. Pleural-based calcifications are seen bilaterally, without associated soft tissue masses, likely asbestos related change LIVER/GB: No significant abnormality is appreciated. PANCREAS: No significant abnormality is seen. SPLEEN: Mild splenomegaly noted without focal defects. Spleen measures 15 x 15 x 7 cm. On the previou s study the spleen measured 14 x 13 x 6 cm. ADRENALS: No significant abnormality is seen. KIDNEYS: No significant abnormality is seen. PERITONEAL CAVITY: No pneumoperitoneum or fluid. ABDOMINAL ADENOPATHY: None visualized REPRODUCTIVE ORGANS: No significant abnormality is seen URINARY BLADDER: Leggett catheter is in place. There is a nondependent 3 cm diameter zone of intralumi nal gas noted, presumably instrumentation related. PELVIC ADENOPATHY: None visualized. OSSEOUS STRUCTURES: No significant abnormality is seen. BOWEL: No significant abnormality is seen. VASCULATURE: Unremarkable. EXTRAPERITONEAL SPACES OF THE PELVIS: There is near resolution of the previously seen left hemipelvic extraperitoneal hemorrhage. What remains is a homogeneous band of soft tissue density measuring 7 x 2 x 2 cm located immediately medial to the left external iliac vasculature. IMPRESSION: 1. NEAR RESOLUTION OF THE LEFT HEMIPELVIC EXTRACRANIAL HEMORRHAGE. 2. MILD/MODERATE SPLENOMEGALY, LARGER THAN THE PRIOR STUDY. 3. MODERATE-MARKED RIGHT PLEURAL EFFUSION AND RELATIVELY MILD LEFT PLEURAL EFFUSION, BOTH HAVING INCR EASED SINCE THE PRIOR STUDY.
[2018-04-13 11:35] LABS: Anisocytosis Moderate; HCT 21.5 % (39.0-53.0); HGB 7.1 gm/dL (13.0-17.5); MCH 29.2 pg (25.0-35.0); MCV 88.6 fL (80.0-100.0); Mean Platelet Volume 8.7; Platelet Count 270 k/uL (150-450); Poikilocytosis Slight; RBC 2.42 m/uL (4.30-5.90); RDW 20.1 % (11.5-15.5); WBC 14.9 k/uL (3.8-10.6)
[2018-04-13] MEDS ORDERED: SODIUM CHLORIDE 0.9% 1,000 ML IV ONE (11:48)
[2018-04-13] MEDS ORDERED: NOREPINEPHRIN 4 MG-0.9% NS PMX 4 MG/250 ML ML IV SCH (12:00)
--- NOTE | 2018-04-13 12:58 | P.PN ---
Subjective Progress Note Date: 04/13/18 Principal diagnosis: Acute myocardial infarction and the profound anemia This is a 78-year-old white male with history of multiple medical problems, patient was recently in the hospital for retroperitoneal bleeding, which was felt to be iatrogenic from recent vascular surgery. Patient was eventually discharged home on 04/2018, patient was readmitted yesterday mostly with acute onset of chest pain started at 6 AM, and he was complaining of shortness of breath, and felt lightheaded and diaphoretic. EMS arrived, patient received nitroglycerin sublingually, and the pain resolved. He also received morphine sulfate and aspirin. Patient has also been complaining of having black stools for quite some time, workup in the ER revealed a hemoglobin of 5.9, and revealed abnormal cardiac panel with troponin of 0.478, has been rising over the last 24 hours. He was seen by cardiology on consultation yesterday, address his atrial flutter with RVR, felt the patient had severe symptomatic anemia, and mild troponin elevation, but clearly the findings are more or less consistent with non-ST elevation myocardial infarction. Patient is known to have history of coronary artery disease, previous CABG, severe peripheral vessel occlusive disease, recent PT BA of superficial femoral artery and recent retroperitoneal hematoma related to his recent surgery. Patient has been on Plavix and Xarelto as well as aspirin prior to admission. 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 EKG on this admission showed subendocardial ischemia. Echocardiogram from the last visit showed normal LV function, and moderate severe pulmonary hypertension. During my evaluation, patient has no headache, no blurred vision, no dizziness, no chest pain, no nausea, no vomiting, no abdominal pain. Patient did have chronic melanotic stools. Since admission, the patient did receive 3 units of packed RBCs, hemoglobin at present is 7.1. Patient was reevaluated today on 04/13/2018, remains in the ICU, blood pressure remains mostly on the low side, patient received so far 5 units of packed RBCs, and his hemoglobin this morning is 7.1. I did recommend a CT of the abdomen and pelvis, there is no evidence of active bleeding in the retroperitoneal area , and his previous retroperitoneal hematoma seems to have almost resolved. Hence we are dealing mostly with GI blood losses, and the patient is scheduled to undergo GI workup by Dr. Hung tomorrow. Patient is relatively asymptomatic, chest x-ray however is showing some evidence of interstitial edema. CBC showed leukocytosis with WBC count of 14.9 hemoglobin is 7.1 basic metabolic profile is relatively normal. Objective - Vital Signs Vital signs: Vital Signs Temp 98.9 F 04/13/18 12:00 Pulse 71 04/13/18 12:00 Resp 14 04/13/18 12:00 BP 75/38 04/13/18 12:00 Pulse Ox 99 04/13/18 12:00 Intake & Output 04/12/18 04/13/18 04/13/18 18:59 06:59 18:59 Intake Total 8832 788 1277 Output Total 801 1500 1000 Balance 199 -590 810 Weight 73.8 kg Intake: IV 90 410 1140 0.9 @ KVO 90 310 40 Magnesium Sulfate-D5w Pmx 100 100 1 gm In Dextrose/Water 1 100ml.bag @ 100 mls/hr IVPB Q1H JOSE Rx#: [id number] Sodium Chloride 0.9% 1, 1000 000 ml @ 999 mls/hr IV . Q1H1M ONE Rx#:[id number] Oral 480 500 360 Tube Feeding 120 Blood Product 310 0 310 Rc As-1 Unit 0 310 [id number] Rc As-1 Unit 310 [id number] Output: Urine 800 1500 1000 Stool 1 Other: Voiding Method Urinal Urinal Urinal # Voids 1 0 0 - Exam Physical Exam: Revealed a 78-year-old white male, in no distress. Head: Atraumatic, normocephalic. HEENT:[Neck is supple.] [No neck masses.] [No thyromegaly.] [No JVD.] Chest: [Diminished breath sounds at the bases, no crackles or rhonchi or wheezes. Cardiac Exam: [Normal S1 and S2, no S3 gallop, 2/6 systolic murmur throughout the precordium. Abdomen: [Soft, nontender, no megaly, no rebound, no guarding, normal bowel sounds.] Extremities: [Trace of edema, tender feet, improved fourth right toe skin small necrotic area.] Neurological Exam: [No focal neurologic deficit. Lymphatics: No lymphadenopathy. Psychiatric: Normal mood affect and mental status examination.] - Labs CBC & Chem 7: 04/13/18 11:15 04/13/18 04:19 Labs: Abnormal Lab Results - Last 24 Hours (Table) 04/11/18 04/13/18 04/13/18 Range/Units 12:32 04:19 04:19 WBC 11.2 H (3.8-10.6) k/uL RBC 1.97 L (4.30-5.90) m/uL Hgb 5.8 L* D (13.0-17.5) gm/dL Hct 17.5 L* (39.0-53.0) % RDW 21.2 H (11.5-15.5) % BUN 39 H (9-20) mg/dL Calcium 7.4 L (8.4-10.2) mg/dL Urine Blood (Negative) Urine Bacteria (None) /hpf Crossmatch See Detail 04/13/18 04/13/18 Range/Units 09:20 11:15 WBC 14.9 H (3.8-10.6) k/uL RBC 2.42 L (4.30-5.90) m/uL Hgb 7.1 L (13.0-17.5) gm/dL Hct 21.5 L (39.0-53.0) % RDW 20.1 H (11.5-15.5) % BUN (9-20) mg/dL Calcium (8.4-10.2) mg/dL Urine Blood Moderate H (Negative) Urine Bacteria Rare H (None) /hpf Crossmatch Assessment and Plan Assessment: Impression: 1 acute non-ST elevation myocardial infarction 2 profound anemia, secondary to acute blood loss and myeloproliferative disorder. His blood loss is related to his GI blood loss, investigation is pending. CT of the abdomen and pelvis showed no evidence of active bleeding in the retroperitoneal area. This was done today. Hence the patient will need further GI workup which is pending and it will be done tomorrow by Dr. Persaud. 3 multiple comorbidities including coronary artery disease, previous CABG, chronic cor pulmonale and severe pulmonary hypertension, peripheral vessel occlusive disease, chronic ischemic right lower extremity, recent PTBA of right superficial femoral artery Recommendation: Continue present treatment plan as per cardiology, gastroenterology, patient will be given more blood this morning, blood pressure is marginal, I'm hoping not to use pressors, we'll continue to follow closely. Time with Patient: Less than 30
--- NOTE | 2018-04-13 13:02 | PN ---
PROGRESS NOTE ADMITTING PHYSICIAN: Dr. Jerica Franklin. CHIEF COMPLAINT: Re-evaluation. HISTORY OF PRESENT ILLNESS: 78-year-old gentleman seen in the ICU, admitted to the ICU with acute myocardial infarction, subendocardial. He denies any chest pain or shortness of breath. He has evidence of GI bleed with dark colored stool, but not jun melanotic. The patient has a known history of significant esophageal reflux and had been on aspirin, Plavix, and Xarelto. He does have a chronic atrial fibrillation/flutter. The patient recently also had significant retroperitoneal bleed and right inguinal pseudoaneurysm. The patient's hemoglobin is down again to 5.8 today after 3 units of packed red cell transfusions since admission. The patient did have a CT scan of the abdomen done and pelvis done which revealed patient improved in the retroperitoneal hemorrhage. This spleen is mild to moderately enlarged. Patient does have mild proliferative disorder. The patient has increasing pleural effusions. REVIEW OF SYSTEMS: NEURO: Denies any headaches, dizziness. PSYCH: No anxiety, some apprehension. CARDIAC: Denies chest pain, angina, palpitations. RESPIRATORY: Feels his breathing is improved. GI: No nausea, vomiting, abdominal pain, had a bowel movement, which was dark colored stools. : No symptoms has IDC. EXTREMITIES: Denies pain except to the right foot. CONSTITUTIONAL: No fever, chills. PHYSICAL EXAMINATION: Pleasant gentleman in no distress. Vital signs revealed temperature 98.9, pulse 71, respirations 14, blood pressure was in the 70s to 80s. The patient's physical examination reveals the right foot ischemic changes, stable. ASSESSMENT: 1. Gastrointestinal bleeding. 2. Status post acute myocardial infarction. 3. Peripheral arterial disease with recent surgical intervention. PLAN: Continue present medical regimen. Transfuse patient. The patient's condition discussed with the patient. Prognosis guarded. The patient to receive transfusions to maintain hemoglobin above 7. MMODL / IJN: [id number] /
--- NOTE | 2018-04-13 13:38 | PN ---
PROGRESS NOTE Jacques is a 78-year-old gentleman who was admitted to hospital with complex and multiple medical problems including profound and symptomatic anemia, non ST-segment elevation AZ and atrial fibrillation with rapid ventricular rate. This morning, he appears comfortable at rest and is free of symptoms. He is in atrial fibrillation with controlled ventricular rate. His hemoglobin which on admission was at 5.9, increased up to 7.8 yesterday and has dropped back to 5.8. A CT scan of the abdomen was done to rule out recurrence of the retroperitoneal hematoma and we did not find any. So the anemia seems to be related to GI related blood loss. He has been transfused again and the hemoglobin is 7.1. I am holding the anticoagulant for the atrial fibrillation. The patient is on Plavix. The recent myocardial infarction could be related to the atrial fibrillation with rapid ventricular rate or could be due to significant obstructive CAD. In any event, he is not a candidate for invasive procedures at this time. Continue the supportive care. Try to keep the hemoglobin above 7. Will control the heart rate with beta blockers, continue the nitrates. His blood pressure is low this morning. I am going to decrease the lisinopril dose to 2.5 mg daily. On exam, heart rate is 70 beats per minute, blood pressure is 175/38, respirations 18. Chest exam reveals good air entry bilaterally. Heart exam reveals first and second heart sounds, irregular rhythm. Abdomen is soft. Exam of extremities reveals 1+ pitting edema over the right leg with chronic ischemia of the toe. ASSESSMENT: 1. Acute non ST-segment elevation myocardial infarction. 2. Atrial fibrillation with rapid ventricular rate. 3. Symptomatic anemia. PLAN: Continue with the current supportive care. He is not a candidate for invasive procedures at this time. If he needs endoscopic evaluation under anesthesia, he is at increased risk for perioperative cardiac events. However, with recurrent GI related blood loss, his therapeutic endoscopy may be life-saving in this patient and if you have to please proceed with it. MMODL / IJN: [id number] /
[2018-04-13 16:59] LABS: Anisocytosis Slight; HCT 24.1 % (39.0-53.0); HGB 8.4 gm/dL (13.0-17.5); MCH 30.6 pg (25.0-35.0); MCHC 35.1 g/dL (31.0-37.0); MCV 87.2 fL (80.0-100.0); Mean Platelet Volume 9.6; Platelet Count 268 k/uL (150-450); Poikilocytosis Slight; RBC 2.76 m/uL (4.30-5.90); WBC 18.3 k/uL (3.8-10.6)
[2018-04-13] MEDS: ATORVASTATIN 40 MG TAB PO SCH (20:45)
[2018-04-13] MEDS: DOXAZOSIN 4 MG TAB PO SCH (20:45)
--- NOTE | 2018-04-13 21:50 | PN ---
PROGRESS NOTE DATE OF SERVICE: 04/13/18 The patient is a 78-year-old pleasant white male admitted to hospital with severe symptomatic anemia and acute AZ. He was initially noted to have a hemoglobin of 5.8 g/dL. Initially received 3 units of blood transfusion. Hemoglobin increased to 8.5 and this morning it dropped again to 5.6 g/dL. The patient stated that he had 2 episodes of black tarry stools last night. He denies any abdominal pain. Reports no nausea, vomiting. He did have a CT of the abdomen and pelvis done that was unremarkable and no evidence of retroperitoneal hemorrhage. He denies any symptoms. PHYSICAL EXAMINATION: He appears comfortable. No apparent distress. VITAL SIGNS: Stable. Blood pressure is 106/61, pulse rate 97, temperature 98. HEENT examination unremarkable. Conjunctivae pink. Sclerae anicteric. Oral cavity no lesions. Neck: No jugular venous distention or lymph node enlargement. Chest was clear to auscultation. HEART: Regular rate and rhythm. ABDOMEN: Soft. Bowel sounds are positive. No organomegaly. Extremities: No pedal edema. Skin: No rashes. Neurological: He is alert and oriented x3. No focal deficits. LABS: From today WBC 18.3, hemoglobin 5.8, platelets 230. BUN was 39, creatinine 0.8. Troponin was 1.8. IMPRESSION: 1. Acute myocardial infarction. Cardiology following the patient closely. 2. Severe anemia with significant drop in hemoglobin to 5.8 again after 3 units of blood transfusion yesterday. Presently receiving [address] of the abdomen did not show any evidence of retroperitoneal hemorrhage. He did have 2 episodes of dark-colored stool yesterday. At this time it appears that most likely he may have a component of gastrointestinal blood loss. 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 3. History of myelodysplastic syndrome. 4. History of atrial fibrillation on aspirin, Plavix and Xarelto that has been on hold. RECOMMENDATIONS: 1. Continue with IV Protonix. 2. Discussed with Dr. Franklin. At this time, we will not plan on any endoscopy intervention. 3. We will continue to transfuse him as needed. 4. Follow him closely during his hospital stay. Thank you for this consultation. MMODL / IJN: [id number] /
[2018-04-14] MEDS: oxyCODONE-APAP 5-325MG 1 EACH TAB PO PRN ×6 (00:06→22:23)
[2018-04-14 04:36] LABS: Anisocytosis Slight; HCT 21.2 % (39.0-53.0); HGB 7.2 gm/dL (13.0-17.5); MCH 29.6 pg (25.0-35.0); MCHC 33.9 g/dL (31.0-37.0); MCV 87.2 fL (80.0-100.0); Mean Platelet Volume 9.2; Platelet Count 287 k/uL (150-450); Poikilocytosis Slight; RBC 2.43 m/uL (4.30-5.90); RDW 19.3 % (11.5-15.5); WBC 14.4 k/uL (3.8-10.6)
[2018-04-14 04:44] LABS: Anion Gap 8 mmol/L; Blood Urea Nitrogen 40 mg/dL (9-20); Calcium 7.5 mg/dL (8.4-10.2); Carbon Dioxide 23 mmol/L (22-30); Chloride 106 mmol/L (98-107); Glucose 97 mg/dL (74-99); Magnesium 2.2 mg/dL (1.6-2.3); Phosphorus 3.4 mg/dL (2.5-4.5); Potassium 4.3 mmol/L (3.5-5.1); Sodium 137 mmol/L (137-145)
--- NOTE | 2018-04-14 08:11 | XR ---
EXAMINATION TYPE: XR chest 1V portable DATE OF EXAM: 04/14/2018 COMPARISON: 04/13/2018 HISTORY: Shortness of breath TECHNIQUE: Single frontal view of the chest is obtained. FINDINGS: Diffuse interstitial pattern seen with bilateral infiltrate and pleural effusion. Cardiome charles and postoperative changes are seen. Arthropathy of the shoulders. IMPRESSION: Stable findings suggestive of CHF. Underlying pneumonia not excluded.
[2018-04-14] MEDS: PANTOPRAZOLE 40 MG/10 ML VIAL IVP SCH ×2 (08:57→21:12)
[2018-04-14] MEDS: FUROSEMIDE 10 MG/ML 4 ML VIAL IV SCH ×2 (08:57→16:22)
[2018-04-14] MEDS: SPIRONOLACTONE 25 MG TAB PO SCH (08:58)
[2018-04-14] MEDS: ISOSORBIDE MONONITRATE ER 30 MG TAB.ER.24H PO SCH (08:58)
[2018-04-14] MEDS: METOPROLOL TARTRATE 50 MG TAB PO SCH ×2 (08:58→21:38)
[2018-04-14] MEDS: GABAPENTIN 100 MG CAP PO SCH ×3 (08:58→21:13)
[2018-04-14] MEDS: CLOPIDOGREL 75 MG TAB PO SCH (08:58)
--- NOTE | 2018-04-14 09:25 | P.PN ---
Subjective Progress Note Date: 04/14/18 Principal diagnosis: Acute myocardial infarction, and profound anemia This is a 78-year-old white male with history of multiple medical problems, patient was recently in the hospital for retroperitoneal bleeding, which was felt to be iatrogenic from recent vascular surgery. Patient was eventually discharged home on 04/2018, patient was readmitted yesterday mostly with acute onset of chest pain started at 6 AM, and he was complaining of shortness of breath, and felt lightheaded and diaphoretic. EMS arrived, patient received nitroglycerin sublingually, and the pain resolved. He also received morphine sulfate and aspirin. Patient has also been complaining of having black stools for quite some time, workup in the ER revealed a hemoglobin of 5.9, and revealed abnormal cardiac panel with troponin of 0.478, has been rising over the last 24 hours. He was seen by cardiology on consultation yesterday, address his atrial flutter with RVR, felt the patient had severe symptomatic anemia, and mild troponin elevation, but clearly the findings are more or less consistent with non-ST elevation myocardial infarction. Patient is known to have history of coronary artery disease, previous CABG, severe peripheral vessel occlusive disease, recent PT BA of superficial femoral artery and recent retroperitoneal hematoma related to his recent surgery. Patient has been on Plavix and Xarelto as well as aspirin prior to admission. 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 EKG on this admission showed subendocardial ischemia. Echocardiogram from the last visit showed normal LV function, and moderate severe pulmonary hypertension. During my evaluation, patient has no headache, no blurred vision, no dizziness, no chest pain, no nausea, no vomiting, no abdominal pain. Patient did have chronic melanotic stools. Since admission, the patient did receive 3 units of packed RBCs, hemoglobin at present is 7.1. Patient was reevaluated today on 04/13/2018, remains in the ICU, blood pressure remains mostly on the low side, patient received so far 5 units of packed RBCs, and his hemoglobin this morning is 7.1. I did recommend a CT of the abdomen and pelvis, there is no evidence of active bleeding in the retroperitoneal area , and his previous retroperitoneal hematoma seems to have almost resolved. Hence we are dealing mostly with GI blood losses, and the patient is scheduled to undergo GI workup by Dr. Hung tomorrow. Patient is relatively asymptomatic, chest x-ray however is showing some evidence of interstitial edema. CBC showed leukocytosis with WBC count of 14.9 hemoglobin is 7.1 basic metabolic profile is relatively normal. On 04/14/2018 patient seen again in follow-up in the intensive care unit. He is resting in bed, denies any chest pain, does complain of mild shortness of breath. Pulse ox on 2 L per nasal cannula as 100%, patient is afebrile, hemodynamically stable. Maintenance IV fluids is 0.9 normal saline at a rate of 20 ML per hour. She is status post transfusion with 5 units of packed red blood cells for profound anemia. Patient is still having dark stools, GI service has evaluated the patient, and patient is currently being treated medically in view of recent OR. Today's hemoglobin is 7.2, white blood count is 14.4, electrolytes are within normal limits, BUN is 40, creatinine 0.79. He is tolerating full liquid diet, today's chest x-ray has been reviewed, and shows diffuse interstitial pattern with bilateral plural effusions, consistent with findings of CHF, and fluid overload. Urine culture is negative. Patient is receiving IV diuretics in the form of Lasix 40 mg every 8 hours, and he is in -800 mL fluid balance over the last 24 hours. Objective - Vital Signs Vital signs: Vital Signs Temp 98.2 F 04/14/18 08:00 Pulse 96 04/14/18 08:00 Resp 20 04/14/18 08:00 BP 106/59 04/14/18 08:00 Pulse Ox 100 04/14/18 08:00 Intake & Output 04/13/18 04/14/18 04/14/18 18:59 06:59 18:59 Intake Total 2252.125 500 210 Output Total 2050 1510 130 Balance 202.125 -1010 80 Weight 75.1 kg Intake: IV 1220 140 10 0.9 @ KVO 120 140 10 Magnesium Sulfate-D5w Pmx 100 1 gm In Dextrose/Water 1 100ml.bag @ 100 mls/hr IVPB Q1H [facility] Rx#: [id number] Sodium Chloride 0.9% 1, 1000 000 ml @ 999 mls/hr IV . Q1H1M [facility] Rx#:[id number] Intake, IV Titration 52.125 Amount Norepinephrin 4 mg-0.9% 52.125 Ns Pmx 4 mg In 250 ml @ Titrate IV .Q0M [facility] Rx#: [id number] Oral 360 360 200 Blood Product 620 Rc As-1 Unit 310 [id number] Rc As-1 Unit 310 [id number] Output: Urine 2050 1510 130 Other: Voiding Method Urinal Indwelling Catheter Indwelling Catheter # Voids 0 # Bowel Movements 1 - Exam Physical Exam: Revealed a 78-year-old white male, in no distress. Head: Atraumatic, normocephalic. HEENT:[Neck is supple.] [No neck masses.] [No thyromegaly.] [No JVD.] Chest: [Diminished breath sounds at the bases, no crackles or rhonchi or wheezes. Cardiac Exam: [Normal S1 and S2, no S3 gallop, 2/6 systolic murmur throughout the precordium. Abdomen: [Soft, nontender, no megaly, no rebound, no guarding, normal bowel sounds.] Extremities: [Trace of edema, tender feet, improved fourth right toe skin small necrotic area.] Neurological Exam: [No focal neurologic deficit. Lymphatics: No lymphadenopathy. Psychiatric: Normal mood affect and mental status examination.] - Labs CBC & Chem 7: 04/14/18 03:45 04/14/18 03:45 Labs: Abnormal Lab Results - Last 24 Hours (Table) 04/11/18 04/13/18 04/13/18 Range/Units 12:32 09:20 11:15 WBC 14.9 H (3.8-10.6) k/uL RBC 2.42 L (4.30-5.90) m/uL Hgb 7.1 L (13.0-17.5) gm/dL Hct 21.5 L (39.0-53.0) % RDW 20.1 H (11.5-15.5) % BUN (9-20) mg/dL Calcium (8.4-10.2) mg/dL Urine Blood Moderate H (Negative) Urine Bacteria Rare H (None) /hpf Crossmatch See Detail 04/13/18 04/14/18 04/14/18 Range/Units 16:52 03:45 03:45 WBC 18.3 H 14.4 H (3.8-10.6) k/uL RBC 2.76 L 2.43 L (4.30-5.90) m/uL Hgb 8.4 L 7.2 L (13.0-17.5) gm/dL Hct 24.1 L 21.2 L (39.0-53.0) % RDW 19.0 H 19.3 H (11.5-15.5) % BUN 40 H (9-20) mg/dL Calcium 7.5 L (8.4-10.2) mg/dL Urine Blood (Negative) Urine Bacteria (None) /hpf Crossmatch Microbiology - Last 24 Hours (Table) 04/13/18 09:20 Urine Culture - Preliminary Urine,Catheterized Assessment and Plan Plan: Assessment: 1 acute non-ST elevation myocardial infarction 2 profound anemia, secondary to acute blood loss and myeloproliferative disorder. His blood loss is related to his GI blood loss, investigation is pending. CT of the abdomen and pelvis showed no evidence of active bleeding in the retroperitoneal area. This was done today. Hence the patient will need further GI workup which is pending and it will be done tomorrow by Dr. Persaud. 3 multiple comorbidities including coronary artery disease, previous CABG, chronic cor pulmonale and severe pulmonary hypertension, peripheral vessel occlusive disease, chronic ischemic right lower extremity, recent PTBA of right superficial femoral artery Recommendation: Patient is hemodynamically stable, currently off vasopressor support. Continues with black tarry stools, and GI service is currently treating the patient medically, he remains on IV Protonix, and he will be transfused as needed. Denies any chest pain, he is mildly short of breath and today's chest x -ray shows changes consistent with CHF. Continue with IV diuresis, monitor renal profile, fluid balance, electrolytes. We'll continue to follow patient will remain the intensive care today. I performed a history & physical examination of the patient and discussed their management with my nurse practitioner, Crystal Hanna. I reviewed the nurse practitioner's note and agree with the documented findings and plan of care. Lung sounds are diminished. The findings and the impression was discussed with the patient. I attest to the documentation by the nurse practitioner. Critical care time is over 30 minutes Time with Patient: Greater than 30
--- NOTE | 2018-04-14 09:50 | CDI ---
Last Revision, October 2017 Documentation Clarification Form Date: 04/14/18 0947 From: Nancy Caballero RN, CCDS Admit Date: 04/11/2018 2:18:00 PM Patient Name: Jacques Burk Visit Number: [id number] ATTENTION: The Clinical Documentation Specialists (CDI) and [facility] Coding Staff appreciate your assistance in clarifying documentation. Please respond to the clarification below the line at the bottom and electronically sign. The CDI & [facility] Coding staff will review the response and follow-up if needed. Please note: Queries are made part of the Legal Health Record. If you have any questions, please contact the author of this message via ITS. Dr. Womack Atrial Flutter is documented in the H&P, Pulmonary & Cardiology Consult, and progress notes and requires further specificity. History/Risk factors: A/C diastolic CHF, Chronic atrial Fib, chronic cor pulmonale, AMI this admission , chronic anticoagulation, mylodysplastic disease, CAD, CABG, A/C blood loss anemia Clinical Indicators: 04/11 H&P:"Chronic atrial fibrillation/flutter." 04/11 Cardiology Consult: "Atrial flutter with rapid ventricular rate." 04/16 Attending:" Atrial Flutter 2:1." EKG: A flutter Treatment: Consults: Cardiology Lopressor 50 mg PO BID In your professional opinion, in order to capture the severity of condition; can you please clarify the type of atrial flutter if known? Typical/Type I Atypical/Type II Other, please specify Unable to determine Please continue to document in your progress notes and discharge summary in order to capture severity of illness and risk of mortality. Include clinical findings that support your diagnosis. response from dr. womack UNABLE TO DETERMINE type of flutter MTDD
--- NOTE | 2018-04-14 19:03 | PN ---
PROGRESS NOTE CHIEF COMPLAINT: Re-evaluation. HISTORY OF PRESENT ILLNESS: This is a 78-year-old gentleman who was admitted to the hospital with bleeding. The patient had some evidence of GI bleeding. He recently had a significant retroperitoneal bleed, which seems to be not active at present. The patient did have dark-colored stools yesterday. He is known to have Wilson's esophagus with dysplasia. He has had a colonoscopy also done within the last 6 months. In view of above known findings and recent myocardial infarction, subendocardial IL, after discussion with Dr Kwan, the goal is to monitor closely for now. No plan of doing an EGD at present. The patient is actually feeling well. He does complain of some shortness of breath. He does have increasing pleural effusions, especially on the right side clinically. REVIEW OF SYSTEMS: NEURO: Denies any headaches, dizziness. PSYCH: No anxiety. CARDIAC: No chest pain, angina, palpitation. RESPIRATORY: Shortness of breath. No cough. No hemoptysis. GI: No nausea, vomiting, abdominal pain, diarrhea. No bowel movement today. : No symptoms dysuria, hematuria. Has IDC. EXTREMITIES: Some pain in right foot where he had peripheral arterial disease, related ischemic foot. He has had some revascularization procedure. The foot actually has improved to the point that he covers it with a blanket; before he could not even let a blanket touch his foot. LABORATORY ASSESSMENT: White count of 14.4, hemoglobin 7.2, platelets adequate, 287. Patient's electrolytes are normal. BUN up to 40, creatinine 0.79. ASSESSMENT: 1. Acute congestive cardiac failure secondary to diastolic dysfunction. 2. Coronary artery disease, status post subendocardial myocardial infarction. 3. Atrial fibrillation/flutter. 4. Peripheral arterial disease, status post recent revascularization. 5. Ischemic right foot, improved. 6. Retroperitoneal hematoma, resolving. 7. Gastrointestinal bleeding, probably esophageal source. 8. Anemia secondary to acute blood loss. 9. Anemia secondary to chronic disease of myeloproliferative disorder. 10.Chronic obstructive pulmonary disease. PLAN: Continue present medical regimen. Patient's condition was discussed with the patient. Prognosis guarded. Monitor CBC and transfuse as needed. MMODL / IJN: [id number] /
[2018-04-14 20:26] LABS: Anisocytosis Slight; MCH 29.8 pg (25.0-35.0); MCHC 33.2 g/dL (31.0-37.0); MCV 89.8 fL (80.0-100.0); Mean Platelet Volume 9.2; Platelet Count 299 k/uL (150-450); Poikilocytosis Slight; RBC 2.14 m/uL (4.30-5.90); RDW 19.7 % (11.5-15.5); WBC 16.3 k/uL (3.8-10.6)
[2018-04-14 20:38] LABS: HCT 19.2 % (39.0-53.0); HGB 6.4 gm/dL (13.0-17.5)
--- NOTE | 2018-04-14 21:09 | PN ---
PROGRESS NOTE DATE OF SERVICE: 04/14/2018. REQUESTING PHYSICIAN: Dr. Franklin. HISTORY: The patient is a 78-year-old pleasant white male admitted to the hospital with severe symptomatic anemia and acute WI. He received total of 5 units of blood transfusion. Last hemoglobin 7.8 g/dL. Yesterday he had 3 episodes of black tarry stools. He denies any abdominal pain. No nausea or vomiting. Overall he feels better. CT scan of the abdomen yesterday was unremarkable. PHYSICAL EXAMINATION: He appears comfortable, in no apparent distress. VITAL SIGNS: Stable. Blood pressure is 96/46, pulse rate 76, temperature 97.6. HEENT EXAMINATION: Unremarkable. Conjunctivae pink. Sclerae anicteric. Oral cavity no lesions. NECK: No JVD or lymph node enlargement. CHEST: Clear to auscultation. HEART: Regular rate and rhythm. ABDOMEN: Soft. Bowel sounds are positive. No organomegaly. EXTREMITIES: No pedal edema. SKIN: No rashes. NEURO: He is alert and oriented x3. No focal deficits. LABS: From today, WBC 14.4, hemoglobin 7.2, platelets are 287,000. IMPRESSION: 1. Severe symptomatic anemia with intermittent black-colored stool, possible upper gastrointestinal source of bleeding. Presently on IV Protonix 40 mg every 12 hours. Last upper endoscopy in September in 2016 showed Wilson's esophagus with dysplasia. 2. Myelodysplastic syndrome, transfusion dependent. Baseline hemoglobin is 7. 3. Acute myocardial infarction. Cardiology following the patient closely. 4. Severe peripheral vascular disease. 5. Recent retroperitoneal hematoma that has resolved. RECOMMENDATIONS: 1. Continue with Protonix 40 mg every 12 hours. 2. CBC every 12 hours and transfuse as needed. 3. No plans for any endoscopy intervention given his overall comorbid conditions. We will follow him closely during his hospital stay. MMODL / IJN: [id number] /
[2018-04-14] MEDS: DOXAZOSIN 4 MG TAB PO SCH (21:13)
[2018-04-14] MEDS: ATORVASTATIN 40 MG TAB PO SCH (21:13)
[2018-04-15] MEDS: FUROSEMIDE 10 MG/ML 4 ML VIAL IV SCH ×3 (00:47→16:11)
[2018-04-15 04:24] LABS: Anisocytosis Slight; HCT 21.8 % (39.0-53.0); HGB 7.2 gm/dL (13.0-17.5); MCH 29.4 pg (25.0-35.0); MCHC 32.9 g/dL (31.0-37.0); MCV 89.3 fL (80.0-100.0); Mean Platelet Volume 8.8; Platelet Count 292 k/uL (150-450); Poikilocytosis Slight; RBC 2.44 m/uL (4.30-5.90); RDW 19.1 % (11.5-15.5); WBC 13.9 k/uL (3.8-10.6)
[2018-04-15 04:30] LABS: Anion Gap 8 mmol/L; Blood Urea Nitrogen 29 mg/dL (9-20); Calcium 7.5 mg/dL (8.4-10.2); Carbon Dioxide 24 mmol/L (22-30); Chloride 103 mmol/L (98-107); Glucose 85 mg/dL (74-99); Phosphorus 3.7 mg/dL (2.5-4.5); Potassium 3.7 mmol/L (3.5-5.1); Sodium 135 mmol/L (137-145)
[2018-04-15] MEDS: oxyCODONE-APAP 5-325MG 1 EACH TAB PO PRN ×4 (04:37→20:14)
[2018-04-15 04:56] LABS: Band Neutrophils % 10 %; Lymphocytes # (M) 1.25 k/uL (1.0-4.8); Monocytes # (M) 0.28 k/uL (0-1.0); Myelocytes # (M) 0.83 k/uL (0); Myelocytes % 6 %; Neutrophils % (M) 73 %; Nucleated Red Blood Cells 0 /100 WBC (0-0); Total Cells Counted 200
[2018-04-15 04:57] LABS: Poikilocytosis (M) Present; RBC Fragments Present
[2018-04-15] MEDS ORDERED: POTASSIUM CHLORIDE ER 20 MEQ TAB.ER PO SCH ×2 (05:00→10:00)
[2018-04-15] MEDS: GABAPENTIN 100 MG CAP PO SCH ×3 (09:05→21:33)
[2018-04-15] MEDS: PANTOPRAZOLE 40 MG/10 ML VIAL IVP SCH ×2 (09:05→21:33)
[2018-04-15] MEDS: SPIRONOLACTONE 25 MG TAB PO SCH (09:05)
[2018-04-15] MEDS: METOPROLOL TARTRATE 50 MG TAB PO SCH ×2 (09:06→23:29)
--- NOTE | 2018-04-15 09:12 | P.PN ---
Subjective Progress Note Date: 04/15/18 Principal diagnosis: Acute myocardial infarction, and profound anemia This is a 78-year-old white male with history of multiple medical problems, patient was recently in the hospital for retroperitoneal bleeding, which was felt to be iatrogenic from recent vascular surgery. Patient was eventually discharged home on 04/2018, patient was readmitted yesterday mostly with acute onset of chest pain started at 6 AM, and he was complaining of shortness of breath, and felt lightheaded and diaphoretic. EMS arrived, patient received nitroglycerin sublingually, and the pain resolved. He also received morphine sulfate and aspirin. Patient has also been complaining of having black stools for quite some time, workup in the ER revealed a hemoglobin of 5.9, and revealed abnormal cardiac panel with troponin of 0.478, has been rising over the last 24 hours. He was seen by cardiology on consultation yesterday, address his atrial flutter with RVR, felt the patient had severe symptomatic anemia, and mild troponin elevation, but clearly the findings are more or less consistent with non-ST elevation myocardial infarction. Patient is known to have history of coronary artery disease, previous CABG, severe peripheral vessel occlusive disease, recent PT BA of superficial femoral artery and recent retroperitoneal hematoma related to his recent surgery. Patient has been on Plavix and Xarelto as well as aspirin prior to admission. 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 EKG on this admission showed subendocardial ischemia. Echocardiogram from the last visit showed normal LV function, and moderate severe pulmonary hypertension. During my evaluation, patient has no headache, no blurred vision, no dizziness, no chest pain, no nausea, no vomiting, no abdominal pain. Patient did have chronic melanotic stools. Since admission, the patient did receive 3 units of packed RBCs, hemoglobin at present is 7.1. Patient was reevaluated today on 04/13/2018, remains in the ICU, blood pressure remains mostly on the low side, patient received so far 5 units of packed RBCs, and his hemoglobin this morning is 7.1. I did recommend a CT of the abdomen and pelvis, there is no evidence of active bleeding in the retroperitoneal area , and his previous retroperitoneal hematoma seems to have almost resolved. Hence we are dealing mostly with GI blood losses, and the patient is scheduled to undergo GI workup by Dr. Hung tomorrow. Patient is relatively asymptomatic, chest x-ray however is showing some evidence of interstitial edema. CBC showed leukocytosis with WBC count of 14.9 hemoglobin is 7.1 basic metabolic profile is relatively normal. On 04/14/2018 patient seen again in follow-up in the intensive care unit. He is resting in bed, denies any chest pain, does complain of mild shortness of breath. Pulse ox on 2 L per nasal cannula as 100%, patient is afebrile, hemodynamically stable. Maintenance IV fluids is 0.9 normal saline at a rate of 20 ML per hour. She is status post transfusion with 5 units of packed red blood cells for profound anemia. Patient is still having dark stools, GI service has evaluated the patient, and patient is currently being treated medically in view of recent ID. Today's hemoglobin is 7.2, white blood count is 14.4, electrolytes are within normal limits, BUN is 40, creatinine 0.79. He is tolerating full liquid diet, today's chest x-ray has been reviewed, and shows diffuse interstitial pattern with bilateral plural effusions, consistent with findings of CHF, and fluid overload. Urine culture is negative. Patient is receiving IV diuretics in the form of Lasix 40 mg every 8 hours, and he is in -800 mL fluid balance over the last 24 hours. On 04/15/2018 patient seen again in his care unit. Another black stool this morning, yesterday patient received 1 unit of packed red blood cells 4, hemoglobin of 6.4, today's hemoglobin is 7.2. White count is 13.9, sodium is 131, the rest of the electrolytes are within normal limits, BUN is 29, creatinine 0.80. Patient has received a total of 6 units of packed red blood cells this admission. Patient remains hemodynamically stable, denies any chest pain, does have some exertional dyspnea. Lung sounds are clear, pulse ox on 2 L per nasal cannula is 99%. Chest x-ray shows interstitial prominence, and a small bilateral pleural effusions right greater than the left consistent with fluid overload. Patient remains on IV Lasix at 40 mg every 8 hours, and he is in -1825 fluid balance over the last 24 hours. Objective - Vital Signs Vital signs: Vital Signs Temp 97.9 F 04/15/18 04:00 Pulse 73 04/15/18 07:00 Resp 14 04/15/18 07:00 BP 109/45 04/15/18 07:00 Pulse Ox 99 04/15/18 06:30 Intake & Output 04/14/18 04/15/18 04/15/18 18:59 06:59 18:59 Intake Total 570 1460 Output Total 2630 1225 60 Balance -2060 235 -60 Weight 73 kg Intake: IV 10 310 0.9 @ KVO 10 0 PRBC 310 Oral 560 840 Blood Product 310 Rc As-3 Unit 310 [id number] Output: Urine 2630 1225 60 Other: Voiding Method Indwelling Catheter Indwelling Catheter - Exam Physical Exam: Revealed a 78-year-old white male, in no distress. Head: Atraumatic, normocephalic. HEENT:[Neck is supple.] [No neck masses.] [No thyromegaly.] [No JVD.] Chest: [Diminished breath sounds at the bases, no crackles or rhonchi or wheezes. Cardiac Exam: [Normal S1 and S2, no S3 gallop, 2/6 systolic murmur throughout the precordium. Abdomen: [Soft, nontender, no megaly, no rebound, no guarding, normal bowel sounds.] Extremities: [Trace of edema, tender feet, improved fourth right toe skin small necrotic area.] Neurological Exam: [No focal neurologic deficit. Lymphatics: No lymphadenopathy. Psychiatric: Normal mood affect and mental status examination.] - Labs CBC & Chem 7: 04/15/18 03:36 04/15/18 03:36 Labs: Abnormal Lab Results - Last 24 Hours (Table) 04/11/18 04/14/18 04/15/18 Range/Units 12:32 20:07 03:36 WBC 16.3 H (3.8-10.6) k/uL RBC 2.14 L (4.30-5.90) m/uL Hgb 6.4 L* (13.0-17.5) gm/dL Hct 19.2 L* (39.0-53.0) % RDW 19.7 H (11.5-15.5) % Neutrophils # (Manual) (1.3-7.7) k/uL Myelocytes # (Manual) (0) k/uL Sodium 135 L (137-145) mmol/L BUN 29 H (9-20) mg/dL Calcium 7.5 L (8.4-10.2) mg/dL Crossmatch See Detail 04/15/18 Range/Units 03:36 WBC 13.9 H (3.8-10.6) k/uL RBC 2.44 L (4.30-5.90) m/uL Hgb 7.2 L (13.0-17.5) gm/dL Hct 21.8 L (39.0-53.0) % RDW 19.1 H (11.5-15.5) % Neutrophils # (Manual) 11.50 H (1.3-7.7) k/uL Myelocytes # (Manual) 0.83 H (0) k/uL Sodium (137-145) mmol/L BUN (9-20) mg/dL Calcium (8.4-10.2) mg/dL Crossmatch Microbiology - Last 24 Hours (Table) 04/13/18 09:20 Urine Culture - Final Urine,Catheterized Assessment and Plan Plan: Assessment: 1 acute non-ST elevation myocardial infarction 2 profound anemia, secondary to acute blood loss and myeloproliferative disorder. His blood loss is related to his GI blood loss, investigation is pending. CT of the abdomen and pelvis showed no evidence of active bleeding in the retroperitoneal area. This was done today. GI service is following 3 multiple comorbidities including coronary artery disease, previous CABG, chronic cor pulmonale and severe pulmonary hypertension, peripheral vessel occlusive disease, chronic ischemic right lower extremity, recent PTBA of right superficial femoral artery Recommendation: Patient is status post transfusion with 6 units of PRBCs during this admission, he had another black stool this morning, we will speak to the GI service in regards to a possible scope. Patient remains hemodynamically stable, denies any chest pain. He continues to diurese well, we'll keep the current dose of IV Lasix for another day. Continue monitoring electrolytes and renal profile. Has exertional dyspnea, and the chest x-ray shows persistent changes compatible with CHF. Continue IV Protonix. I performed a history & physical examination of the patient and discussed their management with my nurse practitioner, Crystal Hanna. I reviewed the nurse practitioner's note and agree with the documented findings and plan of care. Lung sounds are diminished. The findings and the impression was discussed with the patient. I attest to the documentation by the nurse practitioner. Critical care time is over 30 minutes Time with Patient: Greater than 30
[2018-04-15] MEDS: CLOPIDOGREL 75 MG TAB PO SCH (09:49)
--- NOTE | 2018-04-15 09:51 | P.PN ---
Subjective Progress Note Date: 04/15/18 Principal diagnosis: GI bleed Small black-colored tarry bowel movement this morning. Received 1 unit of blood loss 9 for a total of 6 units since admission. Hemoglobin earlier this morning 7.2. Afebrile. Denies abdominal pain. No emesis. Objective - Vital Signs Vital signs: Vital Signs Temp 98.1 F 04/15/18 08:00 Pulse 96 04/15/18 09:00 Resp 18 04/15/18 09:00 BP 110/58 04/15/18 09:00 Pulse Ox 98 04/15/18 09:00 Intake & Output 04/14/18 04/15/18 04/15/18 18:59 06:59 18:59 Intake Total 570 1460 Output Total 2630 1225 220 Balance -206 235 -220 Weight 73 kg Intake: IV 10 310 0.9 @ KVO 10 0 PRBC 310 Oral 560 840 Blood Product 310 Rc As-3 Unit 310 [id number] Output: Urine 2630 1225 220 Other: Voiding Method Indwelling Catheter Indwelling Catheter # Bowel Movements 1 - Exam General appearance: The patient is alert, oriented, in no acute distress. HET: Head is normocephalic and atraumatic. Pupils are equal and reactive. Oropharynx is clear without lesions. Neck: Supple without lymphadenopathy. Trachea midline. Heart: S1 S2. Regular rate and rhythm. Lungs: No crackles or wheezes are heard. Abdomen: Soft, nontender, nondistended with bowel sounds. No peritoneal signs. No palpable organomegaly or masses. Extremities: Normal skin color and turgor. No cyanosis, rash, ulceration, clubbing, or edema. Radial and pedal pulses are 2/4 bilaterally. Neurological: No focal deficits. Strength and sensation are grossly intact. - Labs CBC & Chem 7: 04/15/18 03:36 04/15/18 03:36 Labs: Abnormal Lab Results - Last 24 Hours (Table) 04/11/18 04/14/18 04/15/18 Range/Units 12:32 20:07 03:36 WBC 16.3 H (3.8-10.6) k/uL RBC 2.14 L (4.30-5.90) m/uL Hgb 6.4 L* (13.0-17.5) gm/dL Hct 19.2 L* (39.0-53.0) % RDW 19.7 H (11.5-15.5) % Neutrophils # (Manual) (1.3-7.7) k/uL Myelocytes # (Manual) (0) k/uL Sodium 135 L (137-145) mmol/L BUN 29 H (9-20) mg/dL Calcium 7.5 L (8.4-10.2) mg/dL Crossmatch See Detail 04/15/18 Range/Units 03:36 WBC 13.9 H (3.8-10.6) k/uL RBC 2.44 L (4.30-5.90) m/uL Hgb 7.2 L (13.0-17.5) gm/dL Hct 21.8 L (39.0-53.0) % RDW 19.1 H (11.5-15.5) % Neutrophils # (Manual) 11.50 H (1.3-7.7) k/uL Myelocytes # (Manual) 0.83 H (0) k/uL Sodium (137-145) mmol/L BUN (9-20) mg/dL Calcium (8.4-10.2) mg/dL Crossmatch Microbiology - Last 24 Hours (Table) 04/13/18 09:20 Urine Culture - Final Urine,Catheterized Assessment and Plan (1) GI bleed Current Visit: Yes Status: Acute Code(s): K92.2 - GASTROINTESTINAL HEMORRHAGE, UNSPECIFIED SNOMED Code(s): 17446253 (2) Acute blood loss anemia Narrative/Plan: Acute on chronic anemia Current Visit: Yes Status: Acute Code(s): D62 - ACUTE POSTHEMORRHAGIC ANEMIA SNOMED Code(s): 675052450 (3) Melena Current Visit: Yes Status: Acute Code(s): K92.1 - MELENA SNOMED Code(s): 4259348 (4) Petty's esophagus with dysplasia Current Visit: Yes Status: Acute Code(s): K22.719 - PETTY'S ESOPHAGUS WITH DYSPLASIA, UNSPECIFIED SNOMED Code(s): 9704685801946541 (5) Non-STEMI (non-ST elevated myocardial infarction) Current Visit: Yes Status: Acute Code(s): I21.4 - NON-ST ELEVATION (NSTEMI) MYOCARDIAL INFARCTION SNOMED Code(s): 202837218 (6) MDS (myelodysplastic syndrome) Current Visit: Yes Status: Chronic Code(s): D46.9 - MYELODYSPLASTIC SYNDROME , UNSPECIFIED SNOMED Code(s): 055516328 (7) Retroperitoneal hematoma Narrative/Plan: Recent Current Visit: Yes Status: Resolved Code(s): K66.1 - HEMOPERITONEUM SNOMED Code(s): 983454569 Plan: 1. Dr. Kwan recommends EGD evaluation will proceed tomorrow. Clear liquids for dinner. Nothing by mouth after midnight. 2. Protonix 40 mg IV twice a day. 3. CBC monitoring. 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 The patient has indicated understanding and acceptance of the risks and procedures discussed. Assessment and plan a care discussed with Dr. Kwan
[2018-04-15] MEDS ORDERED: Potassium Replacement Protocol 1 EACH MISC MISCELLANE PRN (09:56)
[2018-04-15] MEDS: ISOSORBIDE MONONITRATE ER 30 MG TAB.ER.24H PO SCH (10:16)
--- NOTE | 2018-04-15 10:40 | XR ---
EXAMINATION TYPE: XR chest 1V portable DATE OF EXAM: 04/15/2018 COMPARISON: Prior chest x-ray 04/14/2018 HISTORY: Congestive heart failure TECHNIQUE: Single frontal view of the chest is obtained. FINDINGS: Patient is rotated. Patient is post median sternotomy. Heart remains enlarged. No evident pneumothorax. Pleural parenchymal changes are similar, interstitium is increased. Increased density r ight lung base again noted. There is obscured right hemidiaphragm, blunting of the right costophrenic angle. Calcified pleural plaques present. IMPRESSION: Correlate for congestive heart failure, there may be associated right effusion and assoc iated atelectasis versus edema, correlate to exclude pneumonia. Correlate for asbestos related diseas e.
[2018-04-15] MEDS: ATORVASTATIN 40 MG TAB PO SCH (21:33)
[2018-04-15 21:40] LABS: Anisocytosis Slight; MCH 29.6 pg (25.0-35.0); MCHC 33.6 g/dL (31.0-37.0); MCV 87.9 fL (80.0-100.0); Platelet Count 340 k/uL (150-450); Poikilocytosis Slight; RBC 2.27 m/uL (4.30-5.90); RDW 19.1 % (11.5-15.5)
[2018-04-15 21:42] LABS: HGB 6.7 gm/dL (13.0-17.5)
--- NOTE | 2018-04-15 22:25 | PN ---
PROGRESS NOTE CHIEF COMPLAINT: Re-evaluation. HISTORY OF PRESENT ILLNESS: This gentleman was admitted to the hospital with acute myocardial infarction and GI bleeding. The patient has probably bled from his lower end esophagus, where he is known to have significant esophagitis. REVIEW OF SYSTEMS: NEURO: Denies any headaches, dizziness. PSYCH: No anxiety. CARDIAC: Denies chest pain, angina, palpitation. RESPIRATORY: Denies shortness of breath, cough. GI: No nausea, vomiting, abdominal pain, diarrhea. No bowel movement yet. EXTREMITIES: Some pain in the right foot which is somewhat improved. CONSTITUTIONAL: No fever or chills. HEMATOLOGICAL: Anemia and some bleeding due to anticoagulation. PHYSICAL EXAMINATION: Pleasant gentleman, at present in no distress. He feels his breathing is improved today. Vital signs revealed temperature 98.1, pulse 95, respirations 20, blood pressure 124/61, pulse ox 98% on 2 L oxygen. HEENT: Normocephalic. NECK: No JVD. CHEST: Clear to auscultation with mild decreased air flow at the right base. CARDIAC: Normal S1, S2 with no gallop. Systolic murmur 2/6 at the apex. Irregular rhythm. Patient is not tachycardic. ABDOMEN: Soft. Bowel sounds present. Extremities reveal no edema. Right foot faint pedal pulse, though patient's foot appears much better than post surgery. Patient's groin is fairly well healed. Neurologically awake, alert, oriented with well-coordinated movements. LAB ASSESSMENT: CBC which revealed hemoglobin 7.2, white count 13.9, platelets 292. Sodium 135, potassium 3.7, BUN 29, creatinine 0.8. ASSESSMENT: 1. Status post acute myocardial infarction, subendocardial. 2. Atrial fibrillation/flutter. 3. Acute upper gastrointestinal bleeding. 4. Known history of chronic esophagitis. 5. Anticoagulated status with Xarelto, aspirin and Plavix, presently on Plavix only due to recent stentings. 6. Anemia secondary to acute blood loss. 7. Anemia secondary to probable myeloproliferative disorder. 8. Peripheral arterial disease with recent ischemic foot and surgery. PLAN: The patient at present is stable. His status is better today. His hemoglobin is still 7.2. Continue present medical regimen. Re-evaluate CBC tomorrow. Patient clinically seems to be much improved. Continue present regimen. If CBC is stable tomorrow, patient may be moved out to the ICU. Patient's condition was discussed with the patient. Prognosis guarded. MMODL / IJN: [id number] /
[2018-04-16] MEDS: FUROSEMIDE 10 MG/ML 4 ML VIAL IV SCH ×2 (00:14→07:58)
[2018-04-16] MEDS: oxyCODONE-APAP 5-325MG 1 EACH TAB PO PRN ×3 (00:24→19:08)
[2018-04-16] MEDS: DOXAZOSIN 4 MG TAB PO SCH (02:00)
[2018-04-16] MEDS ORDERED: LIDOCAINE 1% 20 ML VIAL (10MG/ML) FOR IV START INTRADERMA PRN (05:25)
[2018-04-16] MEDS ORDERED: MIDAZOLAM 2 MG/2 ML VIAL IV PRN (05:25)
[2018-04-16 06:05] LABS: Anion Gap 9 mmol/L; Blood Urea Nitrogen 19 mg/dL (9-20); Calcium 7.8 mg/dL (8.4-10.2); Carbon Dioxide 25 mmol/L (22-30); Chloride 100 mmol/L (98-107); Glucose 90 mg/dL (74-99); Sodium 134 mmol/L (137-145)
[2018-04-16] MEDS ORDERED: PROPOFOL 10 MG/ML 20 ML VIAL IV ONE ×2 (07:13→13:55)
[2018-04-16] MEDS ORDERED: GLYCOPYRROLATE 0.2 MG/ML 2 ML VIAL ONE (07:13)
[2018-04-16] MEDS ORDERED: LIDOCAINE 1% INJ 10MG/ML (20 ML MDV) ONE ×2 (07:13→13:55)
[2018-04-16] MEDS ORDERED: IV FLUID CONTINUATION 1,000 ML IV ONE ×2 (07:27→14:08)
--- NOTE | 2018-04-16 07:38 | P.PCN ---
Date of Procedure: 04/16/18 Procedure(s) Performed: BRIEF HISTORY: Patient is a 79-year-old, pleasant, white male with history of mild dysplastic syndrome admitted to the hospital with severe symptomatic anemia and intermittent black tarry stools. He received total of 6 units of blood transfusion since admission to the hospital with hemoglobin of 5.6. This morning hemoglobin is down to 6.8 g/dL. He did have about 2 to 3 black tarry stools almost on a daily basis. He was on aspirin, Plavix and Xarelto at the time of admission to hospital. Xarelto has been on hold. He did have acute MT and coronary to follow the patient closely. Because of continued drop in hemoglobin is scheduled for an upper endoscopy to evaluate further. Last upper endoscopy done in September 2017 showed the evidence of Wilson's esophagus with dysplasia. PROCEDURE PERFORMED: Esophagogastroduodenoscopy. PREOPERATIVE DIAGNOSIS: Severe anemia with black tarry stools. IV sedation per anesthesia. PROCEDURE: After informed consent was obtained, the patient was brought into the endoscopy unit. IV sedation was administered by Anesthesia under continuous monitoring. Initially the Olympus GIF-140 video endoscope was inserted into the mouth. Esophagus intubated without any difficulty. It was gradually advanced into the stomach and duodenum and carefully examined. The bulb and the second part of the duodenum appeared normal. The scope at this time was withdrawn to the stomach, adequately insufflated with air, and upon careful examination, mucosa of the antrum, body, cardia and the fundus appeared normal. The scope was then withdrawn into the esophagus. Small hiatal hernia noted. The GE junction was located at 37 cm from the incisors. There was long segment Wilson 's esophagus starting from 25-37 cm from the incisors but because of the fact the patient is on aspirin and Plavix no biopsies were performed. There was no evidence of any esophagitis or bleeding noted from the Wilson's esophagus. There was an early esophageal stricture identified in the proximal end of Wilson's esophagus. The rest of the esophagus appeared normal. There were no erosions or ulcerations seen and the patient tolerated the procedure well. IMPRESSION: 1. Long segment Wilson's esophagus with no evidence of esophagitis or bleeding. 2. Hiatal hernia.. RECOMMENDATIONS: The findings of this examination were discussed with the patient. Since there is no evidence of diffuse upper GI bleed seen, it is possible the patient has small bowel source of ongoing bleeding. Hence he will be scheduled for a small bowel capsule endoscopy at the bedside today to evaluate further..
[2018-04-16] MEDS: LACTATED RINGERS 1,000 ML IV SCH (07:41)
[2018-04-16 07:43] LABS: Anisocytosis Slight; Basophils # (A) 0.3 k/uL (0-0.2); Basophils % (A) 2 %; Eosinophils # (A) 0.2 k/uL (0-0.7); Eosinophils % (A) 1 %; HCT 22.1 % (39.0-53.0); HGB 7.4 gm/dL (13.0-17.5); Lymphocytes # (A) 1.4 k/uL (1.0-4.8); Lymphocytes % (A) 8 %; MCH 29.6 pg (25.0-35.0); MCHC 33.4 g/dL (31.0-37.0); MCV 88.7 fL (80.0-100.0); Mean Platelet Volume 9.5; Monocytes # (A) 0.7 k/uL (0-1.0); Monocytes % (A) 4 %; Neutrophils # (A) 13.9 k/uL (1.3-7.7); Neutrophils % (A) 82 %; Platelet Count 341 k/uL (150-450); Poikilocytosis Slight; RBC 2.49 m/uL (4.30-5.90); RDW 19.1 % (11.5-15.5); WBC 17.2 k/uL (3.8-10.6)
[2018-04-16] MEDS: CLOPIDOGREL 75 MG TAB PO SCH (07:58)
[2018-04-16] MEDS: METOPROLOL TARTRATE 50 MG TAB PO SCH ×2 (07:58→22:52)
[2018-04-16] MEDS: PANTOPRAZOLE 40 MG/10 ML VIAL IVP SCH ×2 (07:58→21:13)
[2018-04-16] MEDS: ISOSORBIDE MONONITRATE ER 30 MG TAB.ER.24H PO SCH (07:58)
[2018-04-16] MEDS: GABAPENTIN 100 MG CAP PO SCH ×3 (07:58→21:13)
[2018-04-16] MEDS: SPIRONOLACTONE 25 MG TAB PO SCH (07:58)
[2018-04-16] MEDS ORDERED: NITROGLYCERIN SL TABS 0.4 MG TAB SUBLINGUAL ONE (08:19)
[2018-04-16] MEDS ORDERED: NITROGLYCERIN SL TABS 0.4 MG TAB SUBLINGUAL PRN (08:34)
[2018-04-16] MEDS ORDERED: METOPROLOL TARTRATE 5 MG/5 ML VIAL IVP ONE (08:48)
[2018-04-16] MEDS ORDERED: ISOSORBIDE MONONITRATE ER 15 MG TAB PO SCH (09:00)
--- NOTE | 2018-04-16 09:02 | P.PN ---
Subjective Progress Note Date: 04/16/18 Principal diagnosis: Acute myocardial infarction, and profound anemia This is a 78-year-old white male with history of multiple medical problems, patient was recently in the hospital for retroperitoneal bleeding, which was felt to be iatrogenic from recent vascular surgery. Patient was eventually discharged home on 04/2018, patient was readmitted yesterday mostly with acute onset of chest pain started at 6 AM, and he was complaining of shortness of breath, and felt lightheaded and diaphoretic. EMS arrived, patient received nitroglycerin sublingually, and the pain resolved. He also received morphine sulfate and aspirin. Patient has also been complaining of having black stools for quite some time, workup in the ER revealed a hemoglobin of 5.9, and revealed abnormal cardiac panel with troponin of 0.478, has been rising over the last 24 hours. He was seen by cardiology on consultation yesterday, address his atrial flutter with RVR, felt the patient had severe symptomatic anemia, and mild troponin elevation, but clearly the findings are more or less consistent with non-ST elevation myocardial infarction. Patient is known to have history of coronary artery disease, previous CABG, severe peripheral vessel occlusive disease, recent PT BA of superficial femoral artery and recent retroperitoneal hematoma related to his recent surgery. Patient has been on Plavix and Xarelto as well as aspirin prior to admission. 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 EKG on this admission showed subendocardial ischemia. Echocardiogram from the last visit showed normal LV function, and moderate severe pulmonary hypertension. During my evaluation, patient has no headache, no blurred vision, no dizziness, no chest pain, no nausea, no vomiting, no abdominal pain. Patient did have chronic melanotic stools. Since admission, the patient did receive 3 units of packed RBCs, hemoglobin at present is 7.1. Patient was reevaluated today on 04/13/2018, remains in the ICU, blood pressure remains mostly on the low side, patient received so far 5 units of packed RBCs, and his hemoglobin this morning is 7.1. I did recommend a CT of the abdomen and pelvis, there is no evidence of active bleeding in the retroperitoneal area , and his previous retroperitoneal hematoma seems to have almost resolved. Hence we are dealing mostly with GI blood losses, and the patient is scheduled to undergo GI workup by Dr. Persaud tomorrow. Patient is relatively asymptomatic, chest x-ray however is showing some evidence of interstitial edema. CBC showed leukocytosis with WBC count of 14.9 hemoglobin is 7.1 basic metabolic profile is relatively normal. On 04/14/2018 patient seen again in follow-up in the intensive care unit. He is resting in bed, denies any chest pain, does complain of mild shortness of breath. Pulse ox on 2 L per nasal cannula as 100%, patient is afebrile, hemodynamically stable. Maintenance IV fluids is 0.9 normal saline at a rate of 20 ML per hour. She is status post transfusion with 5 units of packed red blood cells for profound anemia. Patient is still having dark stools, GI service has evaluated the patient, and patient is currently being treated medically in view of recent NV. Today's hemoglobin is 7.2, white blood count is 14.4, electrolytes are within normal limits, BUN is 40, creatinine 0.79. He is tolerating full liquid diet, today's chest x-ray has been reviewed, and shows diffuse interstitial pattern with bilateral plural effusions, consistent with findings of CHF, and fluid overload. Urine culture is negative. Patient is receiving IV diuretics in the form of Lasix 40 mg every 8 hours, and he is in -800 mL fluid balance over the last 24 hours. On 04/15/2018 patient seen again in his care unit. Another black stool this morning, yesterday patient received 1 unit of packed red blood cells 4, hemoglobin of 6.4, today's hemoglobin is 7.2. White count is 13.9, sodium is 131, the rest of the electrolytes are within normal limits, BUN is 29, creatinine 0.80. Patient has received a total of 6 units of packed red blood cells this admission. Patient remains hemodynamically stable, denies any chest pain, does have some exertional dyspnea. Lung sounds are clear, pulse ox on 2 L per nasal cannula is 99%. Chest x-ray shows interstitial prominence, and a small bilateral pleural effusions right greater than the left consistent with fluid overload. Patient remains on IV Lasix at 40 mg every 8 hours, and he is in -1825 fluid balance over the last 24 hours. On 04/16/2018 patient seen in follow-up in the intensive care unit. He underwent EGD this morning by Dr. Persaud and she was found to have a long segment Wilson's esophagus with no evidence of esophagitis or bleeding, hiatal hernia. The small bowel source of ongoing bleeding is being considered, and the patient is being scheduled for a small bowel capsule endoscopy at the bedside today. In the meanwhile patient developed sinus tachycardia, started having chest pain, his heart rate is up to 140 BPM, systolic blood pressure is in the 130s. Patient is complaining of shortness of breath, substernal chest discomfort with bilateral arm pain. EKG is being obtained, cardiology has been notified, patient's metoprolol was held last night, and was given this morning. Today's hemoglobin is 7.4 white count is 17.2, sodium is 134, the rest of his electrolytes and renal profile are within normal limits. Pulse ox on 2 L per nasal cannula is 92-95%, lung sounds are clear. No further episodes of bleeding today. Objective - Vital Signs Vital signs: Vital Signs Temp 98.9 F 04/16/18 04:00 Pulse 97 04/16/18 07:00 Resp 18 04/16/18 07:00 BP 119/59 04/16/18 07:00 Pulse Ox 92 L 04/16/18 07:00 Intake & Output 04/15/18 04/16/18 04/16/18 18:59 06:59 18:59 Intake Total 1500 360 120 Output Total 1730 1994 150 Balance -230 -1635 -30 Weight 72.6 kg Intake: IV 120 Lactated Ringers 1,000 ml 20 @ 20 mls/hr IV .Q24H [facility] Rx#:[id number] Oral 1500 360 Output: Urine 1730 1994 150 Other: Voiding Method Indwelling Catheter Indwelling Catheter Indwelling Catheter # Bowel Movements 1 - Exam Physical Exam: Revealed a 78-year-old white male, in no distress. Head: Atraumatic, normocephalic. HEENT:[Neck is supple.] [No neck masses.] [No thyromegaly.] [No JVD.] Chest: [Diminished breath sounds at the bases, no crackles or rhonchi or wheezes. Cardiac Exam: [Normal S1 and S2, no S3 gallop, 2/6 systolic murmur throughout the precordium. Abdomen: [Soft, nontender, no megaly, no rebound, no guarding, normal bowel sounds.] Extremities: [Trace of edema, tender feet, improved fourth right toe skin small necrotic area.] Neurological Exam: [No focal neurologic deficit. Lymphatics: No lymphadenopathy. Psychiatric: Normal mood affect and mental status examination.] - Labs CBC & Chem 7: 04/16/18 05:17 04/16/18 05:17 Labs: Abnormal Lab Results - Last 24 Hours (Table) 04/15/18 04/16/18 04/16/18 Range/Units 21:13 05:17 05:17 WBC 16.0 H 17.2 H (3.8-10.6) k/uL RBC 2.27 L 2.49 L (4.30-5.90) m/uL Hgb 6.7 L* 7.4 L (13.0-17.5) gm/dL Hct 20.0 L* 22.1 L (39.0-53.0) % RDW 19.1 H 19.1 H (11.5-15.5) % Neutrophils # 13.9 H (1.3-7.7) k/uL Basophils # 0.3 H (0-0.2) k/uL Sodium 134 L (137-145) mmol/L Calcium 7.8 L (8.4-10.2) mg/dL Assessment and Plan Plan: Assessment: 1 acute non-ST elevation myocardial infarction 2 profound anemia, secondary to acute blood loss and myeloproliferative disorder. His blood loss is related to his GI blood loss, investigation is pending. CT of the abdomen and pelvis showed no evidence of active bleeding in the retroperitoneal area. Patient is status post EGD on 04/16/2018 which revealed a long segment of Wilson's esophagus without esophagitis or active bleeding, hiatal hernia. 3 multiple comorbidities including coronary artery disease, previous CABG, chronic cor pulmonale and severe pulmonary hypertension, peripheral vessel occlusive disease, chronic ischemic right lower extremity, recent PTBA of right superficial femoral artery Recommendation: Patient was given his metoprolol for his sinus tachycardia, cardiology is following, obtain EKG. No further episodes of bleeding. Patient underwent EGD this morning, please see the operative note, no obvious source of bleeding was found, and small bowel is being considered as a source of ongoing bleeding, patient is scheduled for small bowel capsule endoscopy. We will decrease the IV Lasix twice daily. We'll continue to follow. I performed a history & physical examination of the patient and discussed their management with my nurse practitioner, Crystal Hanna. I reviewed the nurse practitioner's note and agree with the documented findings and plan of care. Lung sounds are diminished. The findings and the impression was discussed with the patient. I attest to the documentation by the nurse practitioner. Critical care time is over 30 minutes Time with Patient: Greater than 30
[2018-04-16] MEDS ORDERED: SIMETHICONE 40 MG/0.6 ML DROPS 2,000 MG/30 ML BOTTLE PO ONE (09:15)
[2018-04-16] MEDS ORDERED: GLUCAGON 1 MG/ML VIAL IVP STA (09:34)
--- NOTE | 2018-04-16 09:38 | PN ---
PROGRESS NOTE Mr. Burk was admitted with a GI bleed. He has a history of coronary artery disease and peripheral vascular disease. The nurse called me this morning stating that the patient's heart rate was in the 140s and it looks like sinus tachycardia. When I walked in the patient's blood pressure was low in the 90s. He received nitroglycerin because he was complaining of angina-like symptoms. I asked her to get a 12-lead ECG which showed supraventricular tachycardia with secondary ST changes, but he was developing chest discomfort and arm discomfort. Carotid sinus massage was performed and it abruptly terminated the tachycardia. Following that, his blood pressure linda close to 105 mmHg, but SVT recurred once again and I repeated his carotid sinus massage. He had already received oral beta blockers this morning at his usual dose of 50 mg. I gave him IV metoprolol a total of 5 mg in split doses once he converted to sinus rhythm for obtaining a more immediate effect of metoprolol. Yesterday, his blood pressure was in the 80s and therefore the nurse did not give him his evening dose of metoprolol. IMPRESSION: 1. Adenosine sensitive supraventricular tachycardia. 2. Known coronary artery disease. 3. Known peripheral vascular disease. 4. Currently admitted with gastrointestinal bleeding with low hemoglobin. SUGGEST: 1. Reduce doxazosin/Cardura to 2 mg p.o. daily. 2. Reduce Imdur to 15 mg p.o. daily. 3. Continue metoprolol 50 mg twice daily and if needed, I will increase his dose further and stop Imdur completely if he has recurrent SVT. 4. GI management and management of anemia per Dr. Franklin. MMJAZMINL / FAIZAN: [id number] /
[2018-04-16 10:03] LABS: Glucose,Whole Blood 173 mg/dL (75-99)
[2018-04-16 10:16] LABS: Glucose,Whole Blood 182 mg/dL (75-99)
[2018-04-16 12:10] LABS: Glucose,Whole Blood 122 mg/dL (75-99)
[2018-04-16] MEDS ORDERED: MORPHINE SULFATE 2 MG/ML SYRINGE IVP PRN (13:25)
--- NOTE | 2018-04-16 14:13 | P.PCN ---
Date of Procedure: 04/16/18 Procedure(s) Performed: BRIEF HISTORY: Patient is a 78-year-old, pleasant, white male, was admitted to the hospital with black tarry stools of 3 days' duration and severe symptomatic anemia requiring blood transfusion almost a daily basis. As a part of a value should he underwent an upper endoscopy this morning revealed long segment Wilson's esophagus and early proximal esophageal stricture but no evidence of active bleeding. He subsequently had a small bowel capsule endoscopy performed at 9:30 AM this morning. After he swallowed the capsule the patient could not swallow it further and he feels that it is lodged in his proximal esophagus. He is hence scheduled for an upper endoscopy with foreign body removal. PROCEDURE PERFORMED: Esophagogastroduodenoscopy with placement of a small bowel capsule into the duodenum. PREOPERATIVE DIAGNOSIS: Absent impacted in the proximal esophagus. IV sedation per anesthesia. PROCEDURE: After informed consent was obtained, the patient was brought into the endoscopy unit. IV sedation was administered by Anesthesia under continuous monitoring. Initially the Olympus GIF-140 video endoscope was inserted into the mouth. Esophagus intubated without any difficulty. Immediately in the upper esophageal sphincter and appeared to be lodged. Gentle manipulation I slowly pushed the Cecum into the distal esophagus and into the stomach. At this point using a Harris net the capsule was held and was gently advanced along with the scope into the duodenum and the capsule was left in the second part of the duodenum. It was gradually advanced into the stomach and duodenum and carefully examined. The bulb and the second part of the duodenum appeared normal. The scope at this time was withdrawn to the stomach, adequately insufflated with air, and upon careful examination, mucosa of the antrum, body, cardia and the fundus appeared normal. The scope was then withdrawn into the esophagus. The GE junction was located at 35 cm from the incisors. There was long segment Wilson's esophagus identified. There was an early proximal esophageal stricture noted which did not impede the passage of the scope. The esophagus appeared normal. There were no erosions or ulcerations seen and the patient tolerated the procedure well. IMPRESSION: 1. Small bowel capsule lodged in the proximal cervical esophagus status post gradually pushed into the stomach and duodenum. 2. Long segment Wilson's esophagus and proximal cervical early esophageal stricture. RECOMMENDATIONS: The findings of this examination were discussed with the patient and he will be started on clear liquid diet today..
[2018-04-16] MEDS ORDERED: FUROSEMIDE 10 MG/ML 4 ML VIAL IV SCH (21:00)
[2018-04-16] MEDS: ATORVASTATIN 40 MG TAB PO SCH (21:13)
[2018-04-16] MEDS: DOXAZOSIN 2 MG TAB PO SCH (21:13)
--- NOTE | 2018-04-16 23:14 | PN ---
PROGRESS NOTE CHIEF COMPLAINT: Re-evaluation. HISTORY OF PRESENT ILLNESS: This 78-year-old gentleman was admitted to the hospital with GI bleeding. The patient also had significant retroperitoneal bleeding, which has resolved. The patient has peripheral arterial disease, for which he had recent intervention. The patient continued bleeding with known history of significant esophagitis. He was taken for EGD today, with negative EGD findings for any major bleed. The patient in view of this was ordered a capsule camera evaluation. The patient could not swallow that. REVIEW OF SYSTEMS: NEURO: Denies any headaches, dizziness. PSYCH: No anxiety. Some apprehension. CARDIAC: Denies chest pain, angina. Intermittent palpitations. RESPIRATORY: Denies shortness of breath. No cough. No hemoptysis. GI: No nausea, vomiting, abdominal pain, dark-colored stools. : No symptoms with ICD. EXTREMITIES: No pain except to the right leg, which seems to be improving. CONSTITUTIONAL: No fever, chills. PHYSICAL EXAMINATION: Pleasant gentleman in no distress, even when his heart rate jumps up to 140 to 150. VITAL SIGNS: Pulse 145, respiration 19, blood pressure 138/69, pulse ox 97% on 2 L. HEENT: Normocephalic. NECK: No JVD. CHEST: Mild decreased air flow at the right base. CARDIAC: Distant heart sounds S1, S2 with no gallops. Systolic murmur 2/6, left sternal border. Rapid heart beat which suddenly drops down to 70s. This patient has atrial flutter 2:1. ABDOMEN: Soft. Bowel sounds present. EXTREMITIES: No edema. Right foot fourth toe which was scabbed is healing well. The patient is less sensitive to touch in the foot. Neurologically awake, alert, oriented x3 with well-coordinated movements. LABORATORY ASSESSMENT: Patient's hemoglobin was reported at 6.7 yesterday, last night; however, there was no transfusion given. This morning it is 7.4. Limited chemistry is normal. ASSESSMENT: 1. Anemia secondary to acute blood loss and myeloproliferative disorder. 2. Atrial flutter 2:1 with fibrillation. 3. Coronary artery disease, status post myocardial infarction. 4. Gastrointestinal bleeding, source undetermined. 5. History of Wilson's esophagus. 6. Peripheral arterial disease, status post surgery. 7. History of hypertension. PLAN: Patient is stable. Continue present medical regimen. Patient's condition was discussed with the patient. Prognosis guarded. MMODL / IJN: [id number] /
[2018-04-17] MEDS: oxyCODONE-APAP 5-325MG 1 EACH TAB PO PRN ×5 (01:42→20:03)
[2018-04-17 04:53] LABS: Anisocytosis Slight; HCT 21.8 % (39.0-53.0); MCH 28.8 pg (25.0-35.0); MCHC 32.1 g/dL (31.0-37.0); MCV 89.6 fL (80.0-100.0); Mean Platelet Volume 9.2; Platelet Count 436 k/uL (150-450); Poikilocytosis Slight; RBC 2.43 m/uL (4.30-5.90); WBC 16.4 k/uL (3.8-10.6)
[2018-04-17 05:04] LABS: Anion Gap 7 mmol/L; Blood Urea Nitrogen 18 mg/dL (9-20); Calcium 7.8 mg/dL (8.4-10.2); Carbon Dioxide 26 mmol/L (22-30); Chloride 101 mmol/L (98-107); Glucose 116 mg/dL (74-99); Potassium 3.9 mmol/L (3.5-5.1); Sodium 134 mmol/L (137-145)
[2018-04-17 05:50] LABS: Band Neutrophils % 4 %; Eosinophils # (M) 0.33 k/uL (0-0.7); Lymphocytes # (M) 3.44 k/uL (1.0-4.8); Metamyelocytes # (M) 0.16 k/uL (0); Metamyelocytes % 1 %; Monocytes # (M) 0.16 k/uL (0-1.0); Myelocytes # (M) 0.66 k/uL (0); Myelocytes % 4 %; Neutrophils % (M) 68 %; Nucleated Red Blood Cells 0 /100 WBC (0-0); Poikilocytosis (M) Present; Total Cells Counted 200
[2018-04-17 05:51] LABS: Hypochromasia (M) Present
[2018-04-17] MEDS ORDERED: POTASSIUM CHLORIDE ER 20 MEQ TAB.ER PO SCH (06:00)
[2018-04-17] MEDS: LACTATED RINGERS 1,000 ML IV SCH (06:51)
[2018-04-17] MEDS: GABAPENTIN 100 MG CAP PO SCH ×3 (08:43→20:56)
[2018-04-17] MEDS: PANTOPRAZOLE 40 MG/10 ML VIAL IVP SCH ×2 (08:43→20:03)
[2018-04-17] MEDS: FUROSEMIDE 40 MG TAB PO SCH (08:43)
[2018-04-17] MEDS: SPIRONOLACTONE 25 MG TAB PO SCH (08:44)
[2018-04-17] MEDS: CLOPIDOGREL 75 MG TAB PO SCH (08:44)
[2018-04-17] MEDS: ISOSORBIDE MONONITRATE ER 15 MG TAB PO SCH (08:44)
--- NOTE | 2018-04-17 10:07 | P.PN ---
Subjective Progress Note Date: 04/17/18 Principal diagnosis: Acute myocardial infarction, and profound anemia This is a 78-year-old white male with history of multiple medical problems, patient was recently in the hospital for retroperitoneal bleeding, which was felt to be iatrogenic from recent vascular surgery. Patient was eventually discharged home on 04/2018, patient was readmitted yesterday mostly with acute onset of chest pain started at 6 AM, and he was complaining of shortness of breath, and felt lightheaded and diaphoretic. EMS arrived, patient received nitroglycerin sublingually, and the pain resolved. He also received morphine sulfate and aspirin. Patient has also been complaining of having black stools for quite some time, workup in the ER revealed a hemoglobin of 5.9, and revealed abnormal cardiac panel with troponin of 0.478, has been rising over the last 24 hours. He was seen by cardiology on consultation yesterday, address his atrial flutter with RVR, felt the patient had severe symptomatic anemia, and mild troponin elevation, but clearly the findings are more or less consistent with non-ST elevation myocardial infarction. Patient is known to have history of coronary artery disease, previous CABG, severe peripheral vessel occlusive disease, recent PT BA of superficial femoral artery and recent retroperitoneal hematoma related to his recent surgery. Patient has been on Plavix and Xarelto as well as aspirin prior to admission. 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 EKG on this admission showed subendocardial ischemia. Echocardiogram from the last visit showed normal LV function, and moderate severe pulmonary hypertension. During my evaluation, patient has no headache, no blurred vision, no dizziness, no chest pain, no nausea, no vomiting, no abdominal pain. Patient did have chronic melanotic stools. Since admission, the patient did receive 3 units of packed RBCs, hemoglobin at present is 7.1. Patient was reevaluated today on 04/13/2018, remains in the ICU, blood pressure remains mostly on the low side, patient received so far 5 units of packed RBCs, and his hemoglobin this morning is 7.1. I did recommend a CT of the abdomen and pelvis, there is no evidence of active bleeding in the retroperitoneal area , and his previous retroperitoneal hematoma seems to have almost resolved. Hence we are dealing mostly with GI blood losses, and the patient is scheduled to undergo GI workup by Dr. Persaud tomorrow. Patient is relatively asymptomatic, chest x-ray however is showing some evidence of interstitial edema. CBC showed leukocytosis with WBC count of 14.9 hemoglobin is 7.1 basic metabolic profile is relatively normal. On 04/14/2018 patient seen again in follow-up in the intensive care unit. He is resting in bed, denies any chest pain, does complain of mild shortness of breath. Pulse ox on 2 L per nasal cannula as 100%, patient is afebrile, hemodynamically stable. Maintenance IV fluids is 0.9 normal saline at a rate of 20 ML per hour. She is status post transfusion with 5 units of packed red blood cells for profound anemia. Patient is still having dark stools, GI service has evaluated the patient, and patient is currently being treated medically in view of recent ND. Today's hemoglobin is 7.2, white blood count is 14.4, electrolytes are within normal limits, BUN is 40, creatinine 0.79. He is tolerating full liquid diet, today's chest x-ray has been reviewed, and shows diffuse interstitial pattern with bilateral plural effusions, consistent with findings of CHF, and fluid overload. Urine culture is negative. Patient is receiving IV diuretics in the form of Lasix 40 mg every 8 hours, and he is in -800 mL fluid balance over the last 24 hours. On 04/15/2018 patient seen again in his care unit. Another black stool this morning, yesterday patient received 1 unit of packed red blood cells 4, hemoglobin of 6.4, today's hemoglobin is 7.2. White count is 13.9, sodium is 131, the rest of the electrolytes are within normal limits, BUN is 29, creatinine 0.80. Patient has received a total of 6 units of packed red blood cells this admission. Patient remains hemodynamically stable, denies any chest pain, does have some exertional dyspnea. Lung sounds are clear, pulse ox on 2 L per nasal cannula is 99%. Chest x-ray shows interstitial prominence, and a small bilateral pleural effusions right greater than the left consistent with fluid overload. Patient remains on IV Lasix at 40 mg every 8 hours, and he is in -1825 fluid balance over the last 24 hours. On 04/16/2018 patient seen in follow-up in the intensive care unit. He underwent EGD this morning by Dr. Persaud and she was found to have a long segment Wilson's esophagus with no evidence of esophagitis or bleeding, hiatal hernia. The small bowel source of ongoing bleeding is being considered, and the patient is being scheduled for a small bowel capsule endoscopy at the bedside today. In the meanwhile patient developed sinus tachycardia, started having chest pain, his heart rate is up to 140 BPM, systolic blood pressure is in the 130s. Patient is complaining of shortness of breath, substernal chest discomfort with bilateral arm pain. EKG is being obtained, cardiology has been notified, patient's metoprolol was held last night, and was given this morning. Today's hemoglobin is 7.4 white count is 17.2, sodium is 134, the rest of his electrolytes and renal profile are within normal limits. Pulse ox on 2 L per nasal cannula is 92-95%, lung sounds are clear. No further episodes of bleeding today. On 04/17/2018 patient seen again in the intensive care unit. No further episodes of GI bleeding in the last 48 hours. Patient had a EGD in the morning that revealed long segment Wilson's esophagus and early proximal esophageal stricture with no evidence of active bleeding. GI service then proceeded with the small bowel capsule endoscopy, however after she swallowed the capsule patient felt that large in his proximal esophagus. Hence he underwent another EGD in the afternoon with placement of a small bowel capsule into the duodenum. The results of the capsule study are still pending at this time, patient remains hemodynamically stable. Recent total of 6 units of PRBCs this admission , today's hemoglobin is 7.0. No chest pain, no dyspnea, his heart rate is better controlled, IV drips this morning. Pulse ox on 2 L per nasal cannula is 98 percent. Lung sounds are positive for diminished breath sounds at the bases. Patient denies any acute distress, and may be stable to go out of intensive care today once the results of endoscopy available. Objective - Vital Signs Vital signs: Vital Signs Temp 98.5 F 04/17/18 08:00 Pulse 96 04/17/18 09:00 Resp 24 04/17/18 09:00 BP 96/47 04/17/18 09:00 Pulse Ox 98 04/17/18 09:00 Intake & Output 04/16/18 04/17/18 04/17/18 18:59 06:59 18:59 Intake Total 380 220 840 Output Total 975 2115 225 Balance -577 -5301 618 Weight 73 kg Intake: IV 380 220 40 Lactated Ringers 1,000 ml 180 220 40 @ 20 mls/hr IV .Q24H [facility] Rx#:[id number] Oral 800 Output: Urine 975 2115 225 Other: Voiding Method Indwelling Catheter Indwelling Catheter - Exam Physical Exam: Revealed a 78-year-old white male, in no distress. Head: Atraumatic, normocephalic. HEENT:[Neck is supple.] [No neck masses.] [No thyromegaly.] [No JVD.] Chest: [Diminished breath sounds at the bases, no crackles or rhonchi or wheezes. Cardiac Exam: [Normal S1 and S2, no S3 gallop, 2/6 systolic murmur throughout the precordium. Abdomen: [Soft, nontender, no megaly, no rebound, no guarding, normal bowel sounds.] Extremities: [Trace of edema, tender feet, improved fourth right toe skin small necrotic area.] Neurological Exam: [No focal neurologic deficit. Lymphatics: No lymphadenopathy. Psychiatric: Normal mood affect and mental status examination.] - Labs CBC & Chem 7: 04/17/18 04:32 04/17/18 04:32 Labs: Abnormal Lab Results - Last 24 Hours (Table) 04/16/18 04/16/18 04/16/18 Range/Units 10:00 10:15 12:08 WBC (3.8-10.6) k/uL RBC (4.30-5.90) m/uL Hgb (13.0-17.5) gm/dL Hct (39.0-53.0) % RDW (11.5-15.5) % Neutrophils # (Manual) (1.3-7.7) k/uL Metamyelocytes # (Man) (0) k/uL Myelocytes # (Manual) (0) k/uL Sodium (137-145) mmol/L Glucose (74-99) mg/dL POC Glucose (mg/dL) 173 H 182 H 122 H (75-99) mg/dL Calcium (8.4-10.2) mg/dL 04/17/18 04/17/18 Range/Units 04:32 04:32 WBC 16.4 H (3.8-10.6) k/uL RBC 2.43 L (4.30-5.90) m/uL Hgb 7.0 L* (13.0-17.5) gm/dL Hct 21.8 L (39.0-53.0) % RDW 19.0 H (11.5-15.5) % Neutrophils # (Manual) 11.80 H (1.3-7.7) k/uL Metamyelocytes # (Man) 0.16 H (0) k/uL Myelocytes # (Manual) 0.66 H (0) k/uL Sodium 134 L (137-145) mmol/L Glucose 116 H (74-99) mg/dL POC Glucose (mg/dL) (75-99) mg/dL Calcium 7.8 L (8.4-10.2) mg/dL Assessment and Plan Plan: Assessment: 1 acute non-ST elevation myocardial infarction 2 profound anemia, secondary to acute blood loss and myeloproliferative disorder. His blood loss is related to his GI blood loss, investigation is pending. CT of the abdomen and pelvis showed no evidence of active bleeding in the retroperitoneal area. Patient is status post EGD on 04/16/2018 which revealed a long segment of Wilson's esophagus without esophagitis or active bleeding, hiatal hernia. Patient had a capsule endoscopy on 04/16/2018 and the results are still pending 3 multiple comorbidities including coronary artery disease, previous CABG, chronic cor pulmonale and severe pulmonary hypertension, peripheral vessel occlusive disease, chronic ischemic right lower extremity, recent PTBA of right superficial femoral artery Recommendation: No further episodes of GI bleeding in the last 48 hours, patient remains hemodynamically stable, still awaiting the results of the capsule endoscopy. No chest pain, no dyspnea. Patient's heart rate is controlled. Continues on oral Lasix. From pulmonary/critical care standpoint patient may be able to go out of ICU today, once we know the results of the capsule endoscopy, and the patient remains stable. I performed a history & physical examination of the patient and discussed their management with my nurse practitioner, Crystal Hanna. I reviewed the nurse practitioner's note and agree with the documented findings and plan of care. Lung sounds are diminished. The findings and the impression was discussed with the patient. I attest to the documentation by the nurse practitioner. Critical care time is over 30 minutes Time with Patient: Greater than 30
--- NOTE | 2018-04-17 10:20 | P.PN ---
Subjective Progress Note Date: 04/17/18 Principal diagnosis: GI bleed Status post EGD yesterday with evidence of early stricture noted in the proximal part of the Petty's esophagus no evidence of active bleeding or peptic ulcer disease. Small bowel capsule endoscopy initiated after EGD yesterday however patient had difficulty swallowing the pill reported sensation of it being stuck. He was taken back to the endoscopy suite and via endoscopy capsule was placed into the duodenum. Capsule study finished last night and results are currently pending. No further bloody bowel movements. Hemoglobin 7 this morning. Denies abdominal pain. Afebrile. Tolerating advance diet. Objective - Vital Signs Vital signs: Vital Signs Temp 98.5 F 04/17/18 08:00 Pulse 96 04/17/18 09:00 Resp 24 04/17/18 09:00 BP 96/47 04/17/18 09:00 Pulse Ox 98 04/17/18 09:00 Intake & Output 04/16/18 04/17/18 04/17/18 18:59 06:59 18:59 Intake Total 380 220 840 Output Total 975 2115 225 Balance -595 -1895 615 Weight 73 kg Intake: IV 380 220 40 Lactated Ringers 1,000 ml 180 220 40 @ 20 mls/hr IV .Q24H [facility] Rx#:[id number] Oral 800 Output: Urine 975 2115 225 Other: Voiding Method Indwelling Catheter Indwelling Catheter - Exam General appearance: The patient is alert, oriented, in no acute distress. HET: Head is normocephalic and atraumatic. Pupils are equal and reactive. Oropharynx is clear without lesions. Neck: Supple without lymphadenopathy. Trachea midline. Heart: S1 S2. Regular rate and rhythm. Lungs: No crackles or wheezes are heard. Abdomen: Soft, nontender, nondistended with bowel sounds. No peritoneal signs. No palpable organomegaly or masses. Extremities: Normal skin color and turgor. No cyanosis, rash, ulceration, clubbing, or edema. Radial and pedal pulses are 2/4 bilaterally. Neurological: No focal deficits. Strength and sensation are grossly intact. - Labs CBC & Chem 7: 04/17/18 04:32 04/17/18 04:32 Labs: Abnormal Lab Results - Last 24 Hours (Table) 06/13/18 06/14/18 06/14/18 Range/Units 12:08 04:32 04:32 WBC 16.4 H (3.8-10.6) k/uL RBC 2.43 L (4.30-5.90) m/uL Hgb 7.0 L* (13.0-17.5) gm/dL Hct 21.8 L (39.0-53.0) % RDW 19.0 H (11.5-15.5) % Neutrophils # (Manual) 11.80 H (1.3-7.7) k/uL Metamyelocytes # (Man) 0.16 H (0) k/uL Myelocytes # (Manual) 0.66 H (0) k/uL Sodium 134 L (137-145) mmol/L Glucose 116 H (74-99) mg/dL POC Glucose (mg/dL) 122 H (75-99) mg/dL Calcium 7.8 L (8.4-10.2) mg/dL Assessment and Plan (1) GI bleed Narrative/Plan: Status post EGD no evidence of active bleeding or peptic ulcer disease redemonstration of Petty's esophagus with early stricture in the proximal portion. Capsule endoscopy completed results pending. Current Visit: Yes Status: Acute Code(s): K92.2 - GASTROINTESTINAL HEMORRHAGE, UNSPECIFIED SNOMED Code(s): 40908805 (2) Acute blood loss anemia Narrative/Plan: Acute on chronic anemia Current Visit: Yes Status: Acute Code(s): D62 - ACUTE POSTHEMORRHAGIC ANEMIA SNOMED Code(s): 055505864 (3) Melena Current Visit: Yes Status: Acute Code(s): K92.1 - MELENA SNOMED Code(s): 0384871 (4) Petty's esophagus with dysplasia Current Visit: Yes Status: Acute Code(s): K22.719 - PETTY'S ESOPHAGUS WITH DYSPLASIA, UNSPECIFIED SNOMED Code(s): 7908980719943713 (5) Non-STEMI (non-ST elevated myocardial infarction) Current Visit: Yes Status: Acute Code(s): I21.4 - NON-ST ELEVATION (NSTEMI) MYOCARDIAL INFARCTION SNOMED Code(s): 851968180 (6) MDS (myelodysplastic syndrome) Current Visit: Yes Status: Chronic Code(s): D46.9 - MYELODYSPLASTIC SYNDROME , UNSPECIFIED SNOMED Code(s): 579656006 (7) Retroperitoneal hematoma Narrative/Plan: Recent Current Visit: Yes Status: Resolved Code(s): K66.1 - HEMOPERITONEUM SNOMED Code(s): 014541653 Plan: 1. We'll review capsule study today further recommendations forthcoming. Continue with diet as tolerated. CBC monitoring. We'll continue to follow with you. Assessment and plan a care discussed with Dr. Kwan
[2018-04-17] MEDS: METOPROLOL TARTRATE 50 MG TAB PO SCH ×2 (10:42→23:19)
--- NOTE | 2018-04-17 12:05 | P.PN ---
Progress Note - Text Progress Note Date: 04/17/18 Preliminary capsule endoscopy results study was limited incomplete; capsule retained in esophagus for 5 hours had to be advanced via endoscopy. Remainder 3 hours no obvious bleeding or bleeding sources. Formal dictated report to follow by Dr. Kwan. Results shared with patient.
--- NOTE | 2018-04-17 15:51 | PN ---
PROGRESS NOTE This 78-year-old male patient was admitted with lower GI bleed. However, he was on beta blockers which was on hold. Yesterday I treated this with carotid sinus massage. He has AV node dependent SVT. Subsequently I gave him IV metoprolol and then increase the p.o. metoprolol dose. Currently, he is doing well. His vitals are stable. His heart rate is in the 70s, blood pressure is 108/59 mmHg, respirations normal, pulse ox 92-94%. Head and neck examination normal. Heart sounds S1, S2 normal. Lungs are clear to auscultation. Extremities are warm. No edema. IMPRESSION: 1. Known coronary artery disease. 2. Known peripheral vascular disease. 3. Recurrent AV node dependent supraventricular tachycardia. Carotid sinus massage sensitive. Beta quan dose has been increased. Gastroenterology workup is in progress and he will continue his current medications along with a higher dose of metoprolol. He is on atorvastatin, Plavix, Lasix, isosorbide, and spironolactone. His metoprolol dose was 50 mg twice daily. He may come out of the ICU to the [facility]ive [facility] unit. MMODL / IJN: [id number] /
[2018-04-17] MEDS: ATORVASTATIN 40 MG TAB PO SCH (20:03)
[2018-04-17] MEDS: DOXAZOSIN 2 MG TAB PO SCH (20:56)
[2018-04-18] MEDS: oxyCODONE-APAP 5-325MG 1 EACH TAB PO PRN ×5 (00:16→20:13)
--- NOTE | 2018-04-18 06:28 | PN ---
PROGRESS NOTE ATTENDING PHYSICIAN: Dr. Franklin. CHIEF COMPLAINT: Re-evaluation. HISTORY OF PRESENT ILLNESS: A 78-year-old gentleman was admitted to the hospital with GI bleeding, subendocardial OK and with history of recent revascularization right leg. The patient has undergone EGD, which revealed no evidence of bleeding. The patient had an endoscopic camera, which was stuck in the throat for about 3 hours. After been pushed into the stomach it pictures about 3 hours with no evidence of any significant pathology. The patient has had a bowel movement today. REVIEW OF SYSTEMS: NEURO: Denies any headaches, dizziness. PSYCH: No anxiety. CARDIAC: No chest pain, angina, palpitation. RESPIRATORY: Denies shortness of breath, cough. GI: No nausea, vomiting, abdominal pain, diarrhea. : No symptoms hematuria. EXTREMITIES: Some pain, chronic. CONSTITUTIONAL: No fever or chills. PHYSICAL EXAMINATION: Pleasant gentleman in no distress. Vital signs reveals temperature 98.5, pulse 84, respirations 25, blood pressure 114/60, pulse ox 98% on 2 L. HEENT: Normocephalic. NECK: No JVD. CHEST: Clear to auscultation. CARDIAC: Normal S1, S2 with no gallops. Regular rhythm. ABDOMEN: Soft. Bowel sounds present. EXTREMITIES: Reveal no edema. Ischemic foot improving and pain. Palpable pedal pulse right foot. NEUROLOGICALLY: Awake, alert, oriented with well-coordinated movements. LAB ASSESSMENT: Hemoglobin is 7.0, white count 16.4, platelet count 436. ASSESSMENT: 1. Anemia secondary to GI blood loss. 2. Anemia secondary to myeloproliferative disorder. 3. Intermittent atrial flutter. 4. Peripheral arterial disease. 5. Status post subendocardial myocardial infarction. PLAN: Patient is stable. Continue present medical regimen. Patient's condition discussed with the patient. Prognosis guarded. Patient will be transferred to [facility] today. MMODL / IJN: [id number] /
[2018-04-18 07:32] LABS: Anisocytosis Slight; HGB 7.3 gm/dL (13.0-17.5); MCH 28.6 pg (25.0-35.0); MCHC 31.6 g/dL (31.0-37.0); MCV 90.6 fL (80.0-100.0); Mean Platelet Volume 8.9; Platelet Count 510 k/uL (150-450); Poikilocytosis Slight; RBC 2.54 m/uL (4.30-5.90); RDW 19.6 % (11.5-15.5); WBC 22.1 k/uL (3.8-10.6)
[2018-04-18] MEDS ORDERED: PANTOPRAZOLE 40 MG TABLET PO STA (07:44)
[2018-04-18 07:55] LABS: Anion Gap 9 mmol/L; Blood Urea Nitrogen 15 mg/dL (9-20); Calcium 7.9 mg/dL (8.4-10.2); Carbon Dioxide 25 mmol/L (22-30); Chloride 101 mmol/L (98-107); Glucose 98 mg/dL (74-99); Potassium 4.3 mmol/L (3.5-5.1); Sodium 135 mmol/L (137-145)
--- NOTE | 2018-04-18 09:20 | P.PN ---
Subjective Progress Note Date: 04/18/18 Principal diagnosis: GI bleed Nonbloody bowel movement yesterday. No further bowel movements. Hemoglobin 7.3. Afebrile. Denies abdominal pain. No emesis. Objective - Vital Signs Vital signs: Vital Signs Temp 97.9 F 04/18/18 08:00 Pulse 97 04/18/18 08:00 Resp 18 04/18/18 08:00 BP 112/69 04/18/18 08:00 Pulse Ox 98 04/18/18 08:52 Intake & Output 04/17/18 04/18/18 04/18/18 18:59 06:59 18:59 Intake Total 840 Output Total 480 260 Balance 360 -260 Weight 73 kg 74.9 kg Intake: IV 40 Lactated Ringers 1,000 ml 40 @ 20 mls/hr IV .Q24H [facility] Rx#:[id number] Oral 800 Output: Urine 480 260 Other: Voiding Method Indwelling Catheter Urinal # Voids 1 # Bowel Movements 1 - Exam General appearance: The patient is alert, oriented, in no acute distress. HET: Head is normocephalic and atraumatic. Pupils are equal and reactive. Oropharynx is clear without lesions. Neck: Supple without lymphadenopathy. Trachea midline. Heart: S1 S2. Regular rate and rhythm. Lungs: No crackles or wheezes are heard. Abdomen: Soft, nontender, nondistended with bowel sounds. No peritoneal signs. No palpable organomegaly or masses. Extremities: Normal skin color and turgor. No cyanosis, rash, ulceration, clubbing, or edema. Radial and pedal pulses are 2/4 bilaterally. Neurological: No focal deficits. Strength and sensation are grossly intact. - Labs CBC & Chem 7: 04/18/18 07:15 04/18/18 07:15 Labs: Abnormal Lab Results - Last 24 Hours (Table) 04/18/18 04/18/18 Range/Units 07:15 07:15 WBC 22.1 H (3.8-10.6) k/uL RBC 2.54 L (4.30-5.90) m/uL Hgb 7.3 L (13.0-17.5) gm/dL Hct 23.0 L (39.0-53.0) % RDW 19.6 H (11.5-15.5) % Plt Count 510 H (150-450) k/uL Sodium 135 L (137-145) mmol/L Calcium 7.9 L (8.4-10.2) mg/dL Assessment and Plan (1) GI bleed Narrative/Plan: Status post EGD no evidence of active bleeding or peptic ulcer disease redemonstration of Petty's esophagus with early stricture in the proximal portion. Capsule endoscopy limited exam about 3 hours visualized portion showed no active bleeding or sources of bleeding cannot exclude a distal small bowel bleed. Presently passing nonbloody bowel movements hemoglobin improved from yesterday 7.3.. Current Visit: Yes Status: Acute Code(s): K92.2 - GASTROINTESTINAL HEMORRHAGE, UNSPECIFIED SNOMED Code(s): 59188386 (2) Acute blood loss anemia Narrative/Plan: Acute on chronic anemia Current Visit: Yes Status: Acute Code(s): D62 - ACUTE POSTHEMORRHAGIC ANEMIA SNOMED Code(s): 961320493 (3) Melena Current Visit: Yes Status: Acute Code(s): K92.1 - MELENA SNOMED Code(s): 4554043 (4) Petty's esophagus with dysplasia Current Visit: Yes Status: Acute Code(s): K22.719 - PETTY'S ESOPHAGUS WITH DYSPLASIA, UNSPECIFIED SNOMED Code(s): 4544642465468336 (5) Non-STEMI (non-ST elevated myocardial infarction) Current Visit: Yes Status: Acute Code(s): I21.4 - NON-ST ELEVATION (NSTEMI) MYOCARDIAL INFARCTION SNOMED Code(s): 486039066 (6) MDS (myelodysplastic syndrome) Current Visit: Yes Status: Chronic Code(s): D46.9 - MYELODYSPLASTIC SYNDROME , UNSPECIFIED SNOMED Code(s): 930785475 (7) Retroperitoneal hematoma Narrative/Plan: Recent Current Visit: Yes Status: Resolved Code(s): K66.1 - HEMOPERITONEUM SNOMED Code(s): 395487429 Plan: 1. Discharge per medicine. We'll follow as needed. Follow up in GI office as advised. Assessment and plan a care discussed with Dr. Kwan
[2018-04-18] MEDS: FUROSEMIDE 40 MG TAB PO SCH (09:22)
[2018-04-18] MEDS: CLOPIDOGREL 75 MG TAB PO SCH (09:22)
[2018-04-18] MEDS: SPIRONOLACTONE 25 MG TAB PO SCH (09:23)
[2018-04-18] MEDS: METOPROLOL TARTRATE 50 MG TAB PO SCH ×2 (09:23→20:13)
[2018-04-18] MEDS: GABAPENTIN 100 MG CAP PO SCH ×3 (10:45→23:56)
[2018-04-18] MEDS: ISOSORBIDE MONONITRATE ER 15 MG TAB PO SCH (10:45)
--- NOTE | 2018-04-18 12:02 | P.PN ---
Subjective Progress Note Date: 04/18/18 Principal diagnosis: Acute myocardial infarction, and profound anemia This is a 78-year-old white male with history of multiple medical problems, patient was recently in the hospital for retroperitoneal bleeding, which was felt to be iatrogenic from recent vascular surgery. Patient was eventually discharged home on 04/2018, patient was readmitted yesterday mostly with acute onset of chest pain started at 6 AM, and he was complaining of shortness of breath, and felt lightheaded and diaphoretic. EMS arrived, patient received nitroglycerin sublingually, and the pain resolved. He also received morphine sulfate and aspirin. Patient has also been complaining of having black stools for quite some time, workup in the ER revealed a hemoglobin of 5.9, and revealed abnormal cardiac panel with troponin of 0.478, has been rising over the last 24 hours. He was seen by cardiology on consultation yesterday, address his atrial flutter with RVR, felt the patient had severe symptomatic anemia, and mild troponin elevation, but clearly the findings are more or less consistent with non-ST elevation myocardial infarction. Patient is known to have history of coronary artery disease, previous CABG, severe peripheral vessel occlusive disease, recent PT BA of superficial femoral artery and recent retroperitoneal hematoma related to his recent surgery. Patient has been on Plavix and Xarelto as well as aspirin prior to admission. 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 EKG on this admission showed subendocardial ischemia. Echocardiogram from the last visit showed normal LV function, and moderate severe pulmonary hypertension. During my evaluation, patient has no headache, no blurred vision, no dizziness, no chest pain, no nausea, no vomiting, no abdominal pain. Patient did have chronic melanotic stools. Since admission, the patient did receive 3 units of packed RBCs, hemoglobin at present is 7.1. Patient was reevaluated today on 04/13/2018, remains in the ICU, blood pressure remains mostly on the low side, patient received so far 5 units of packed RBCs, and his hemoglobin this morning is 7.1. I did recommend a CT of the abdomen and pelvis, there is no evidence of active bleeding in the retroperitoneal area , and his previous retroperitoneal hematoma seems to have almost resolved. Hence we are dealing mostly with GI blood losses, and the patient is scheduled to undergo GI workup by Dr. Persaud tomorrow. Patient is relatively asymptomatic, chest x-ray however is showing some evidence of interstitial edema. CBC showed leukocytosis with WBC count of 14.9 hemoglobin is 7.1 basic metabolic profile is relatively normal. On 04/14/2018 patient seen again in follow-up in the intensive care unit. He is resting in bed, denies any chest pain, does complain of mild shortness of breath. Pulse ox on 2 L per nasal cannula as 100%, patient is afebrile, hemodynamically stable. Maintenance IV fluids is 0.9 normal saline at a rate of 20 ML per hour. She is status post transfusion with 5 units of packed red blood cells for profound anemia. Patient is still having dark stools, GI service has evaluated the patient, and patient is currently being treated medically in view of recent [place]. Today's hemoglobin is 7.2, white blood count is 14.4, electrolytes are within normal limits, BUN is 40, creatinine 0.79. He is tolerating full liquid diet, today's chest x-ray has been reviewed, and shows diffuse interstitial pattern with bilateral plural effusions, consistent with findings of CHF, and fluid overload. Urine culture is negative. Patient is receiving IV diuretics in the form of Lasix 40 mg every 8 hours, and he is in -800 mL fluid balance over the last 24 hours. On 04/15/2018 patient seen again in his care unit. Another black stool this morning, yesterday patient received 1 unit of packed red blood cells 4, hemoglobin of 6.4, today's hemoglobin is 7.2. White count is 13.9, sodium is 131, the rest of the electrolytes are within normal limits, BUN is 29, creatinine 0.80. Patient has received a total of 6 units of packed red blood cells this admission. Patient remains hemodynamically stable, denies any chest pain, does have some exertional dyspnea. Lung sounds are clear, pulse ox on 2 L per nasal cannula is 99%. Chest x-ray shows interstitial prominence, and a small bilateral pleural effusions right greater than the left consistent with fluid overload. Patient remains on IV Lasix at 40 mg every 8 hours, and he is in -1825 fluid balance over the last 24 hours. On 04/16/2018 patient seen in follow-up in the intensive care unit. He underwent EGD this morning by Dr. Persaud and she was found to have a long segment Wilson's esophagus with no evidence of esophagitis or bleeding, hiatal hernia. The small bowel source of ongoing bleeding is being considered, and the patient is being scheduled for a small bowel capsule endoscopy at the bedside today. In the meanwhile patient developed sinus tachycardia, started having chest pain, his heart rate is up to 140 BPM, systolic blood pressure is in the 130s. Patient is complaining of shortness of breath, substernal chest discomfort with bilateral arm pain. EKG is being obtained, cardiology has been notified, patient's metoprolol was held last night, and was given this morning. Today's hemoglobin is 7.4 white count is 17.2, sodium is 134, the rest of his electrolytes and renal profile are within normal limits. Pulse ox on 2 L per nasal cannula is 92-95%, lung sounds are clear. No further episodes of bleeding today. On 04/17/2018 patient seen again in the intensive care unit. No further episodes of GI bleeding in the last 48 hours. Patient had a EGD in the morning that revealed long segment Wilson's esophagus and early proximal esophageal stricture with no evidence of active bleeding. GI service then proceeded with the small bowel capsule endoscopy, however after she swallowed the capsule patient felt that large in his proximal esophagus. Hence he underwent another EGD in the afternoon with placement of a small bowel capsule into the duodenum. The results of the capsule study are still pending at this time, patient remains hemodynamically stable. Recent total of 6 units of PRBCs this admission , today's hemoglobin is 7.0. No chest pain, no dyspnea, his heart rate is better controlled, IV drips this morning. Pulse ox on 2 L per nasal cannula is 98 percent. Lung sounds are positive for diminished breath sounds at the bases. Patient denies any acute distress, and may be stable to go out of intensive care today once the results of endoscopy available. On 04/18/2018 patient seen in follow-up on selective care unit. He is awake, alert, in no acute distress. Remains hemodynamically stable, no further episodes of dark tarry stools, today's hemoglobin is 7.3, capsule endoscopy not identify source of bleeding. Patient denies any abdominal pain, denies any chest pain or dyspnea. No emesis, signs have been stable. Discharge planning is in progress for possible discharge to subacute rehab today. Objective - Vital Signs Vital signs: Vital Signs Temp 97.9 F 04/18/18 08:00 Pulse 74 04/18/18 11:21 Resp 16 04/18/18 11:45 BP 105/54 04/18/18 11:21 Pulse Ox 99 04/18/18 11:21 Intake & Output 04/17/18 04/18/18 04/18/18 18:59 06:59 18:59 Intake Total 840 Output Total 480 260 Balance 360 -260 Weight 73 kg 74.9 kg Intake: IV 40 Lactated Ringers 1,000 ml 40 @ 20 mls/hr IV .Q24H JOSE Rx#:[id number] Oral 800 Output: Urine 480 260 Other: Voiding Method Indwelling Catheter Urinal # Voids 1 # Bowel Movements 1 - Exam Physical Exam: Revealed a 78-year-old white male, in no distress. Head: Atraumatic, normocephalic. HEENT:[Neck is supple.] [No neck masses.] [No thyromegaly.] [No JVD.] Chest: [Diminished breath sounds at the bases, no crackles or rhonchi or wheezes. Cardiac Exam: [Normal S1 and S2, no S3 gallop, 2/6 systolic murmur throughout the precordium. Abdomen: [Soft, nontender, no megaly, no rebound, no guarding, normal bowel sounds.] Extremities: [Trace of edema, tender feet, improved fourth right toe skin small necrotic area.] Neurological Exam: [No focal neurologic deficit. Lymphatics: No lymphadenopathy. Psychiatric: Normal mood affect and mental status examination.] - Labs CBC & Chem 7: 04/18/18 07:15 04/18/18 07:15 Labs: Abnormal Lab Results - Last 24 Hours (Table) 04/18/18 04/18/18 Range/Units 07:15 07:15 WBC 22.1 H (3.8-10.6) k/uL RBC 2.54 L (4.30-5.90) m/uL Hgb 7.3 L (13.0-17.5) gm/dL Hct 23.0 L (39.0-53.0) % RDW 19.6 H (11.5-15.5) % Plt Count 510 H (150-450) k/uL Sodium 135 L (137-145) mmol/L Calcium 7.9 L (8.4-10.2) mg/dL Assessment and Plan Plan: Assessment: 1 acute non-ST elevation myocardial infarction 2 profound anemia, secondary to acute blood loss and myeloproliferative disorder. His blood loss is related to his GI blood loss, investigation is pending. CT of the abdomen and pelvis showed no evidence of active bleeding in the retroperitoneal area. Patient is status post EGD on 04/16/2018 which revealed a long segment of Wilson's esophagus without esophagitis or active bleeding, hiatal hernia. Patient had a capsule endoscopy on 04/16/2018 and the results are still pending 3 multiple comorbidities including coronary artery disease, previous CABG, chronic cor pulmonale and severe pulmonary hypertension, peripheral vessel occlusive disease, chronic ischemic right lower extremity, recent PTBA of right superficial femoral artery Recommendation: Patient remains hemodynamically stable, further episodes of black tarry stools, today's hemoglobin is 7.3, no abdominal pain, no chest pain or dyspnea. Vital signs are stable. We will follow the patient on as-needed basis. Discharge planning in progress for discharge to subacute rehab today. I performed a history & physical examination of the patient and discussed their management with my nurse practitioner, Crystal Hanna. I reviewed the nurse practitioner's note and agree with the documented findings and plan of care. Lung sounds are diminished. The findings and the impression was discussed with the patient. I attest to the documentation by the nurse practitioner. Time with Patient: Less than 30
--- NOTE | 2018-04-18 13:50 | P.PN ---
Subjective Progress Note Date: 04/18/18 This is a 78-year-old gentleman admitted to the hospital with lower GI bleed. Patient had been on beta blockers previously and they were on hold, day before yesterday, patient went into what appears to be a supraventricular tachycardia, he underwent sinus massage by Dr. Womack and converted. Today he continues to be in an atrial flutter with controlled ventricular response. He is awake, alert, in no distress. Hemodynamically stable. No further evidence of any dark tarry stools. Hemoglobin today is 7.3. Capsule endoscopy do not identify the source of the bleeding. He denies any abdominal discomfort. Objective - Vital Signs Vital signs: Vital Signs Temp 97.9 F 04/18/18 08:00 Pulse 74 04/18/18 11:21 Resp 16 04/18/18 11:45 BP 105/54 04/18/18 11:21 Pulse Ox 99 04/18/18 11:21 Intake & Output 04/17/18 04/18/18 04/18/18 18:59 06:59 18:59 Intake Total 840 Output Total 480 260 Balance 360 -260 Weight 73 kg 74.9 kg Intake: IV 40 Lactated Ringers 1,000 ml 40 @ 20 mls/hr IV .Q24H JOSE Rx#:[id number] Oral 800 Output: Urine 480 260 Other: Voiding Method Indwelling Catheter Urinal # Voids 1 1 # Bowel Movements 1 - Exam Physical Exam: Revealed a 78-year-old white male, in no distress. Head: Atraumatic, normocephalic. HEENT:Neck is supple.] [No neck masses.No thyromegaly.No JVD. Chest: Diminished breath sounds at the bases, no crackles or rhonchi or wheezes. Cardiac Exam: Normal S1 and S2, no S3 gallop, 2/6 systolic murmur throughout the precordium. Abdomen: Soft, nontender, no megaly, no rebound, no guarding, normal bowel sounds. Extremities: Trace of edema, tender feet, improved fourth right toe skin small necrotic area. Neurological Exam: [No focal neurologic deficit. Lymphatics: No lymphadenopathy. Psychiatric: Normal mood affect and mental status examination. - Labs CBC & Chem 7: 04/18/18 07:15 04/18/18 07:15 Labs: Abnormal Lab Results - Last 24 Hours (Table) 04/18/18 04/18/18 Range/Units 07:15 07:15 WBC 22.1 H (3.8-10.6) k/uL RBC 2.54 L (4.30-5.90) m/uL Hgb 7.3 L (13.0-17.5) gm/dL Hct 23.0 L (39.0-53.0) % RDW 19.6 H (11.5-15.5) % Plt Count 510 H (150-450) k/uL Sodium 135 L (137-145) mmol/L Calcium 7.9 L (8.4-10.2) mg/dL Assessment and Plan Plan: Assessment and plan #1 acute non-ST elevation myocardial infarction #2 profound anemia, secondary to acute blood loss and myeloproliferative disorder. His blood loss is related to his GI blood loss, investigation is pending. CT of the abdomen and pelvis showed no evidence of active bleeding in the retroperitoneal area. This was done today. Hence the patient will need further GI workup which is pending and it will be done tomorrow by Dr. Kwan. #3 multiple comorbidities including coronary artery disease, previous CABG, chronic cor pulmonale and severe pulmonary hypertension, peripheral vessel occlusive disease, chronic ischemic right lower extremity, recent PTBA of right superficial femoral artery Plan From cardiology's perspective, we will continue the patient on the current medications he is on at this time. Arrangements are being made for possible rehab post discharge. DNP note has been reviewed, I agree with a documented findings and plan of care. Patient was seen and examined.
[2018-04-18] MEDS: ATORVASTATIN 40 MG TAB PO SCH (20:14)
[2018-04-18] MEDS: DOXAZOSIN 2 MG TAB PO SCH (21:01)
--- NOTE | 2018-04-19 00:01 | PN ---
PROGRESS NOTE ATTENDING PHYSICIAN: Dr. Belia rFanklin. CHIEF COMPLAINT: Re-evaluation. HISTORY OF PRESENT ILLNESS: A 78-year-old gentleman was admitted to the hospital with GI bleeding. The patient also has underlying myeloproliferative disorder and anemia, thrombocytosis and leukocytosis. The patient recently underwent right leg revascularization. The patient admitted to this hospital stay with an acute subendocardial IN. The patient's source of GI bleeding is not identified. The patient is actually doing better today. He was in SVT and atrial fib/flutter, which I controlled with medications. REVIEW OF SYSTEMS: NEURO: Denies any headaches, dizziness. PSYCH: No anxiety. CARDIAC: No chest pain, angina, palpitation. RESPIRATORY: Shortness of breath. No cough. No hemoptysis. GI: No nausea, vomiting, abdominal pain, diarrhea. : No symptoms of dysuria, hematuria, urgency, frequency. EXTREMITIES: Pain in right leg. CONSTITUTIONAL: No fever, chills. PHYSICAL EXAMINATION: A 78-year-old at present in no distress. Vital signs reveals 97.9, pulse of 97, respirations 18, blood pressure 112/69. HEENT: Normocephalic. NECK: No JVD. Decreased range of motion. CHEST: Clear to auscultation. Decreased air flow right base with dullness to percussion right base. CARDIAC: Normal S1, S2 with no gallops. Regular rhythm. Systolic murmur 2/6 left sternal border. ABDOMEN: Soft. Bowel sounds present. Extremities reveal no edema. Ischemic right foot which is better, palpable pedal pulse. Pedal pulse faint, right foot. The patient has a skin irritation between the 4th and 5th toe. LABORATORY ASSESSMENT: White count was 22.1, hemoglobin 7.3, platelet count 510. Electrolytes: BUN and creatinine were normal. ASSESSMENT: 1. Anemia secondary to recent blood loss and myeloproliferative disorder. 2. Coronary artery disease, status post subendocardial myocardial infarction. 3. Gastroenterology bleeding, source unidentified, seems to have resolved. 4. Atrial flutter, had supraventricular tachycardia, controlled at present. 5. Peripheral artery disease with ischemic right foot, improved with revascularization. PLAN: The patient at present is stable. Continue present medical regimen. Patient's condition discussed with the patient. Prognosis guarded. May require to resume medications for his myeloproliferative disorder as white count and platelets started going up. Prognosis remains guarded. The patient may require placement to nursing facility for rehab. MMODL / IJN: [id number] /
[2018-04-19] MEDS: oxyCODONE-APAP 5-325MG 1 EACH TAB PO PRN ×4 (03:27→19:46)
[2018-04-19 06:51] LABS: Anisocytosis Slight; HCT 22.7 % (39.0-53.0); HGB 7.5 gm/dL (13.0-17.5); MCH 29.5 pg (25.0-35.0); MCHC 33.1 g/dL (31.0-37.0); Mean Platelet Volume 9.2; Platelet Count 614 k/uL (150-450); Poikilocytosis Slight; RBC 2.55 m/uL (4.30-5.90); RDW 19.2 % (11.5-15.5); WBC 21.5 k/uL (3.8-10.6)
[2018-04-19 06:54] LABS: Anion Gap 9 mmol/L; Blood Urea Nitrogen 19 mg/dL (9-20); Calcium 8.3 mg/dL (8.4-10.2); Carbon Dioxide 25 mmol/L (22-30); Chloride 100 mmol/L (98-107); Glucose 100 mg/dL (74-99); Potassium 4.9 mmol/L (3.5-5.1); Sodium 134 mmol/L (137-145)
[2018-04-19] MEDS: FUROSEMIDE 40 MG TAB PO SCH (07:59)
[2018-04-19] MEDS: METOPROLOL TARTRATE 50 MG TAB PO SCH ×2 (07:59→19:43)
[2018-04-19] MEDS: SPIRONOLACTONE 25 MG TAB PO SCH (07:59)
[2018-04-19] MEDS: ISOSORBIDE MONONITRATE ER 15 MG TAB PO SCH (07:59)
[2018-04-19] MEDS: CLOPIDOGREL 75 MG TAB PO SCH (07:59)
[2018-04-19] MEDS: GABAPENTIN 100 MG CAP PO SCH ×4 (07:59→23:43)
[2018-04-19 08:21] LABS: Band Neutrophils % 11 %; Basophils # (M) 0.22 k/uL (0-0.2); Eosinophils # (M) 0.22 k/uL (0-0.7); Lymphocytes # (M) 1.51 k/uL (1.0-4.8); Metamyelocytes # (M) 1.29 k/uL (0); Metamyelocytes % 6 %; Monocytes # (M) 0.43 k/uL (0-1.0); Myelocytes # (M) 1.29 k/uL (0); Myelocytes % 6 %; Neutrophils % (M) 69 %; Nucleated Red Blood Cells 0 /100 WBC (0-0); Total Cells Counted 200
[2018-04-19 08:22] LABS: Basophilic Stippling Present; Large Platelets Present; Polychromasia Present
[2018-04-19] MEDS: RUXOLITINIB PHOSPHATE PO SCH ×2 (09:15→19:43)
--- NOTE | 2018-04-19 11:59 | PN ---
PROGRESS NOTE Mr. Burk was doing well from a cardiac standpoint. He remains in an atrial fibrillation, in and out of atrial fibrillation with a controlled ventricular response. However, he was in sinus intermittently. He was in the ICU and went into an AV herb reentrant tachycardia and this was abruptly terminated with carotid sinus massage and he went to sinus rhythm. He does have underlying atrial fibrillation with organized persistent atrial fibrillation. He is doing well from cardiac standpoint. No chest pain. No dizziness, lightheadedness. He is sitting comfortably at edge of the bed. His beta quan dose and has tolerated well. His hemoglobin is 7.5. He presented initially with lower GI bleeding. He is afebrile, 97.9, pulse rate in the 80s and 90s, respirations 16, blood pressure 120/60 mmHg. The examination is normal. Heart sounds are S1, S2 normal. IMPRESSION: 1. Non-Q-wave myocardial infarction in the setting of GI bleeding and acute anemia from GI bleeding. 2. Supraventricular tachycardia, status post carotid sinus massage. 3. History of persistent atrial fibrillation. SUGGEST: Continue on current medications. The patient will be discharged home from a cardiac standpoint. Follow up with his primary research and development specialist. MMODL / IJN: [id number] /
[2018-04-19] MEDS ORDERED: FUROSEMIDE 40 MG TAB PO SCH (16:00)
[2018-04-19] MEDS: DOXAZOSIN 2 MG TAB PO SCH (19:43)
[2018-04-19] MEDS: ATORVASTATIN 40 MG TAB PO SCH (19:43)
[2018-04-20] MEDS: oxyCODONE-APAP 5-325MG 1 EACH TAB PO PRN ×3 (06:01→19:50)
[2018-04-20 06:16] LABS: ALT 41 U/L (21-72); AST 34 U/L (17-59); Albumin 2.9 g/dL (3.5-5.0); Alkaline Phosphatase 215 U/L (38-126); Anion Gap 10 mmol/L; Blood Urea Nitrogen 19 mg/dL (9-20); Calcium 8.3 mg/dL (8.4-10.2); Carbon Dioxide 23 mmol/L (22-30); Chloride 100 mmol/L (98-107); Glucose 98 mg/dL (74-99); Potassium 4.8 mmol/L (3.5-5.1); Sodium 133 mmol/L (137-145); Total Bilirubin 1.4 mg/dL (0.2-1.3); Total Protein 5.1 g/dL (6.3-8.2)
[2018-04-20 06:26] LABS: D-Dimer 1.92 mg/L FEU (<0.60); INR 1.3 (<1.2); Prothrombin Time 12.6 sec (9.0-12.0)
[2018-04-20 07:17] LABS: Anisocytosis Slight; HCT 25.2 % (39.0-53.0); HGB 7.9 gm/dL (13.0-17.5); MCH 28.3 pg (25.0-35.0); MCHC 31.3 g/dL (31.0-37.0); MCV 90.4 fL (80.0-100.0); Mean Platelet Volume 8.7; Poikilocytosis Slight; RBC 2.79 m/uL (4.30-5.90); RDW 19.4 % (11.5-15.5)
[2018-04-20 07:19] LABS: Platelet Count 817 k/uL (150-450)
--- NOTE | 2018-04-20 07:29 | CT ---
EXAMINATION TYPE: CT angio chest DATE OF EXAM: 04/20/2018 7:17 AM COMPARISON: NONE HISTORY: r/o pe CT DLP: 364.70 mGycm Automated exposure control for dose reduction was used. CONTRAST: CTA scan of the thorax is performed with IV Contrast, patient injected with 100 mL of Isovue 370, pul monary embolism protocol. There are 3-D post processed images.. FINDINGS: There are moderate bilateral pleural effusions are larger on the right side. There is consolidation i n the right upper lobe. There are paratracheal and anterior mediastinal lymph nodes and measure up to 1.5 cm. Thoracic aorta is atheromatous. I see no filling defects in the pulmonary arteries. There ar e bilateral enlarged bronchial lymph nodes measure up to 2 cm. The bony thorax is intact. . IMPRESSION: EXTENSIVE RIGHT UPPER LOBE PNEUMONIC CONSOLIDATION CONSISTENT WITH BRONCHOPNEUMONIA. NUMEROUS AIR BRO NCHOGRAMS. THERE IS ALSO A SMALLER RIGHT LOWER LOBE PULMONARY CONSOLIDATION. BILATERAL PLEURAL EFFUSI ONS. CARDIOMEGALY. THERE IS PROBABLY CONGESTIVE HEART FAILURE. NO EVIDENCE OF PULMONARY EMBOLISM. MEDIASTINAL AND BRONCHIAL LYMPHADENOPATHY CONSISTENT WITH INFLAMMA TORY DISEASE. PLEURAL EFFUSIONS ARE UNCHANGED COMPARED TO 11/13/2017. THE PNEUMONIC CONSOLIDATION IS I NCREASED.
[2018-04-20 07:53] LABS: ABG Base Excess -2.3 mmol/L; ABG HCO3 22 mmol/L (21-25); ABG Oxygen Saturation 99.9 % (94-97); ABG PCO2 33 mmHg (35-45); ABG PH 7.43 (7.35-7.45); ABG PO2 183 mmHg (83-108); ABG TCO2 23 mmol/L (19-24)
[2018-04-20] MEDS ORDERED: IPRATROPIUM-ALBUTEROL 3 ML NEB INHALATION PRN (08:15)
[2018-04-20] MEDS ORDERED: FUROSEMIDE 10 MG/ML 4 ML VIAL IV STA (08:19)
[2018-04-20 08:34] LABS: Band Neutrophils % 10 %; Metamyelocytes % 6 %; Myelocytes % 6 %; Neutrophils % (M) 69 %; Nucleated Red Blood Cells 1 /100 WBC (0-0); Total Cells Counted 200
[2018-04-20 08:37] LABS: Eosinophils # (M) 0.27 k/uL (0-0.7); Lymphocytes # (M) 1.36 k/uL (1.0-4.8); Metamyelocytes # (M) 1.63 k/uL (0); Monocytes # (M) 1.36 k/uL (0-1.0); Myelocytes # (M) 1.63 k/uL (0); Ovalocytes Present; Polychromasia Present; RBC Fragments Present; WBC 27.2 k/uL (3.8-10.6)
[2018-04-20 08:38] LABS: Crenated RBC Present
[2018-04-20] MEDS: PIPERACILLIN-TAZOBACTAM 3.375 GM in DEXTROSE/WATER 1 50ML.BAG IVPB SCH ×3 (09:10→23:44)
[2018-04-20] MEDS: SPIRONOLACTONE 25 MG TAB PO SCH (09:11)
[2018-04-20] MEDS: METOPROLOL TARTRATE 50 MG TAB PO SCH ×2 (09:12→19:51)
[2018-04-20] MEDS: RUXOLITINIB PHOSPHATE PO SCH ×2 (09:12→19:53)
[2018-04-20] MEDS: ISOSORBIDE MONONITRATE ER 15 MG TAB PO SCH (09:12)
[2018-04-20] MEDS: CLOPIDOGREL 75 MG TAB PO SCH (09:12)
[2018-04-20] MEDS: GABAPENTIN 100 MG CAP PO SCH ×3 (09:12→19:52)
--- NOTE | 2018-04-20 09:14 | P.PN ---
Subjective Progress Note Date: 04/20/18 This 78-year-old gentleman who has been admitted to the hospital with GI bleeding and status post subendocardial NM. Patient went to acute respiratory distress early this morning. Asians has been given Lasix as well as started on Zosyn after a CAT scan of the chest which she was no evidence of pulmonary embolism some suggestion of possible pneumonia however the patient's symptoms and signs are suggestive more of an acute congestive cardiac failure. The patient does have underlying coronary artery disease. His myeloproliferative disease reveals increasing white count and increasing platelet count. He has been restarted on medications JAKAFI . The patient has been on Lasix and Aldactone. Echocardiogram done on 04/11/2018 had shown an ejection fraction of 35-40%. Patient's symptomatology is highly suggestive of acute CHF. He he is already showing improvement with extra dose of Lasix this morning. Patient be placed on Lasix intravenously. Patient's general condition remains guarded. He has no evidence of GI bleeding his hemoglobins up to 7.9. REVIEW OF SYSTEMS: Neuro: Denies any headaches dizziness. Psych: Denies anxiety depression feels oriented. Cardiac: Denies chest pain and angina palpitations. Respiratory: Present complaint of shortness of breath with mild cough and minimal sputum production. GI: Denies nausea vomiting or abdominal pain. No diarrhea or constipation, no bowel movement yet. : Denies dysuria hematuria. Extremities: Denies pain. No edema. Skin: Intact. Constitutional: No fever, chills. Objective - Vital Signs Vital signs: Vital Signs Temp 97.4 F L 04/20/18 04:00 Pulse 144 H 04/20/18 07:42 Resp 32 H 04/20/18 07:42 BP 124/58 04/20/18 07:24 Pulse Ox 99 04/20/18 07:24 Intake & Output 04/19/18 04/20/18 04/20/18 18:59 06:59 18:59 Intake Total 590 200 Output Total 600 501 Balance -10 -301 Weight 78 kg Intake: Oral 590 200 Output: Urine 600 500 Stool 1 Other: Voiding Method Urinal # Voids 0 PHYSICAL EXAMINATION: Cooperative, at present in no acute distress. HEENT: Neck supple. No JVD. Chest: With crackles left base and dullness right base Cardiac: Normal S1-S2 no gallops systolic 2/6 left sternal border. Intermittent atrial fibrillation with tachycardia. Abdomen: Soft bowel sounds present. Extremities: No edema sensitive right foot but improving Neurologically: Awake, alert, oriented with well-coordinated movements. - Labs CBC & Chem 7: 04/20/18 05:56 04/20/18 05:56 Labs: Abnormal Lab Results - Last 24 Hours (Table) 04/20/18 04/20/18 04/20/18 Range/Units 05:56 05:56 05:56 WBC 27.2 H* (3.8-10.6) k/uL RBC 2.79 L (4.30-5.90) m/uL Hgb 7.9 L (13.0-17.5) gm/dL Hct 25.2 L (39.0-53.0) % RDW 19.4 H (11.5-15.5) % Plt Count 817 H* (150-450) k/uL Neutrophils # (Manual) 21.40 H (1.3-7.7) k/uL Monocytes # (Manual) 1.36 H (0-1.0) k/uL Metamyelocytes # (Man) 1.63 H (0) k/uL Myelocytes # (Manual) 1.63 H (0) k/uL Nucleated RBCs 1 H (0-0) /100 WBC PT 12.6 H (9.0-12.0) sec INR 1.3 H (<1.2) D-Dimer 1.92 H (<0.60) mg/L FEU ABG pCO2 (35-45) mmHg ABG pO2 (83-108) mmHg ABG O2 Saturation (94-97) % Sodium 133 L (137-145) mmol/L Calcium 8.3 L (8.4-10.2) mg/dL Total Bilirubin 1.4 H (0.2-1.3) mg/dL Alkaline Phosphatase 215 H (38-126) U/L Total Protein 5.1 L (6.3-8.2) g/dL Albumin 2.9 L (3.5-5.0) g/dL 04/20/18 Range/Units 07:51 WBC (3.8-10.6) k/uL RBC (4.30-5.90) m/uL Hgb (13.0-17.5) gm/dL Hct (39.0-53.0) % RDW (11.5-15.5) % Plt Count (150-450) k/uL Neutrophils # (Manual) (1.3-7.7) k/uL Monocytes # (Manual) (0-1.0) k/uL Metamyelocytes # (Man) (0) k/uL Myelocytes # (Manual) (0) k/uL Nucleated RBCs (0-0) /100 WBC PT (9.0-12.0) sec INR (<1.2) D-Dimer (<0.60) mg/L FEU ABG pCO2 33 L (35-45) mmHg ABG pO2 183 H (83-108) mmHg ABG O2 Saturation 99.9 H (94-97) % Sodium (137-145) mmol/L Calcium (8.4-10.2) mg/dL Total Bilirubin (0.2-1.3) mg/dL Alkaline Phosphatase (38-126) U/L Total Protein (6.3-8.2) g/dL Albumin (3.5-5.0) g/dL Assessment and Plan Assessment: ASSESSMENT: 1. Acute congestive cardiac failure secondary to systolic dysfunction . 2. Dilated ischemic cardiomyopathy. 3. Paroxysmal atrial fibrillation rapid ventricular rate. 4. Anemia secondary to acute blood loss. 5. Myeloproliferative disorder. 6. Peripheral arterial disease status post revascularization procedure. 7. Acute respiratory failure secondary to CHF. 8. Rule out pneumonia.. PLAN: Patient's general condition his volatile. At present stable. Prognosis remains guarded continue on diuresis. I really doubt patient has a pneumonia. We'll recheck the chest x-ray after diuresis. Cardiology and pulmonary are following the patient.
--- NOTE | 2018-04-20 09:42 | PN ---
PROGRESS NOTE ATTENDING PHYSICIAN: Dr. Jerica Franklin. DATE OF SERVICE: 04/19/2018. CHIEF COMPLAINT: Re-evaluation. HISTORY OF PRESENT ILLNESS: This is a 78-year-old who was admitted to the hospital with subendocardial SD. The patient also had GI bleeding. GI bleeding seems to be controlled. He does have a history of myeloproliferative disorder and with continuation rise of his white count and platelet count. White count today is 21,500, hemoglobin stable at 7.5, platelets 614. REVIEW OF SYSTEMS: NEURO: Denies any headaches, dizziness. PSYCH: No anxiety. CARDIAC: No chest pain, angina, palpitation. RESPIRATORY: No shortness of breath, cough. Does have dyspnea. GI: No nausea, vomiting, abdominal pain. : No symptoms of dysuria, hematuria. EXTREMITIES: Right foot pain, discomfort, improved. CONSTITUTIONAL: No fever, chills. PHYSICAL EXAMINATION: Pleasant gentleman at present in no distress. Vital signs reveals temperature 97.4, had temperature 100.8 last night. Pulse 96, respirations 16, blood pressure 120/60, pulse of 98% 2 L. HEENT: Normocephalic. NECK: No JVD. CHEST: Clear to auscultation with mild decreased air flow right base. CARDIAC: Normal S1, S2 with no gallop. Systolic murmur 2/6 left sternal border. ABDOMEN: Soft. Bowel sounds active. EXTREMITIES: Reveal pain right lower leg. CONSTITUTIONAL: No fever or chills. LABORATORY ASSESSMENT: White count 21.5, hemoglobin 7.5. Electrolytes normal. BUN and creatinine normal. Glucose 100. ASSESSMENT: 1. Anemia secondary to blood loss and myeloproliferative disorder. 2. Paroxysmal atrial flutter. 3. Coronary artery disease, status post subendocardial myocardial infarction. 4. Peripheral artery disease, status post surgery. PLAN: The patient is stable. Continue present medical regimen. Patient's condition is discussed with the patient. Prognosis is guarded. Potential discharge within next 48 hours to nursing facility for rehab. MMODL / IJN: [id number] /
[2018-04-20] MEDS: IPRATROPIUM-ALBUTEROL 3 ML NEB INHALATION SCH ×3 (11:40→20:42)
--- NOTE | 2018-04-20 11:45 | PN ---
PROGRESS NOTE Mr. Burk was short of breath today. He had a rough night. He has been short of breath at night and had some chest discomfort. He has had a non-Q-wave myocardial infarction on this admission. He has also had GI bleeding on this admission. He is on IV Lasix at this time. Respirations are 20 to 30, blood pressure 124/58 mmHg. His pulse rate is elevated. He is on IV Lasix. Breath sounds are reduced bilaterally. Heart sounds are irregular with tachycardic. IMPRESSION: 1. Atrial fibrillation. 2. History of AV herb dependent SVT, recurrent, sinus responsive. 3. Coronary artery disease with non-Q-wave myocardial infarction on this admission. 4. Peripheral vascular disease. SUGGEST: 1. Continue medical treatment for now. 2. Prognosis is very guarded. MMODL / IJN: [id number] /
--- NOTE | 2018-04-20 15:07 | P.CONS ---
History of Present Illness - Reason for Consult Consult date: 04/20/18 - Chief Complaint Pneumonia - History of Present Illness Very pleasant 78-year-old male who presents to Hospital from home 9 days ago with progressive weakness and increasing shortness of breath diaphoresis and discomfort within his chest. EMS was called and he was transported to Hospital and the patient related that some supplement rescinded give him some improvement. At admission he was seen by cardiology and medical management was suggested. The patient has a known history of myelodysplastic syndrome as well as severe peripheral arterial disease and underwent interventions including right femoral artery endarterectomy with patch angioplasty. Afterwards he had arthrectomy and angioplasty distally on the right leg. This is allowed improvement the blood flow in marked improvement to the ischemic foot reveals significant swelling and some ulceration. The patient is very pleased leg is doing so much better. The severe pain is improved. Ulceration is improving and drainage has resolved. Patient however has now had significant and profound shortness of breath. He was considerably worse this morning he was on 15 L of oxygen but with some breathing treatments he has now settled in his back down to 6 L of oxygen. He still feels very poorly. However the significant pain he was having after his procedures partly because he developed some hematoma and some superficial clot is improving he is more comfortable. With his profound shortness of breath earlier in his interventions there was concern for the possibility of a pulmonary embolism because CT angiogram was performed, no pulmonary [place] was seen but new extensive infiltration in the right upper lobe as well as some ongoing pleural effusions were seen. With concerns of pneumonia the infectious diseases consultation was requested The patient has received recent treatment with JAKAFI for his myelodysplastic syndrome. Review of Systems Pleasant 78-year-old male which is a bit less short of breath now than earlier but still feels very poorly HEENT:Denies headache or acute visual change. Denies sinus or mouth discomforts. Denies neck stiffness or pain. Denies significant oral cavity pain. Denies difficulty on swallowing. Lungs: His noted severe shortness of breath some cough nostrum production no hemoptysis Cardiovascular: Still has shortness of breath he has orthopnea and dyspnea on exertion, however his chest pain has improved and is not currently occurring she 's had no syncope Gastrointestinal:Denies nausea, vomiting, diarrhea, constipation, hematemesis, melena, hematochezia. No no significant change of bowel habit noticed. Musculoskeletal: Severe pain to the right foot and leg has generally resolved no other new acute musculoskeletal pains Skin: Ulcerations of the fourth and fifth toes on the dorsum have improved with the reestablishment of flow Neuro: Denies headache or visual change. Denies any new onset weakness or difficulty with ambulation. Denies falls or seizures. Psychiatric:Denies anxiety or depression. 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 The patient currently has a right foot toe which is ischemic/4rth toe History of Any Multi-Drug Resistant Organisms: Acinetobacter (MDRO) Year Discovered:: 11/18/17 MDRO Source:: MDRO ACINETOBACTER SPUTUM Past Surgical History: Cholecystectomy, Coronary Bypass/CABG, Heart Catheterization, Hernia Repair Additional Past Surgical History / Comment(s): Cardiac catheterization on 2013, right femoral artery/common femoral artery endarterectomy. 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 tom inguinal hernia repair, coronary artery bypass surgery, EGD, colonoscopy Past Anesthesia/Blood Transfusion Reactions: No Reported Reaction Additional Psychological History / Comment(s): and has one adult daughter. 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 No experience. No travel except [place]. Has history of extensive tobacco use. No current animal exposures Smoking Status: Former smoker - Past Family History Brother(s) Family Medical History: Cancer Additional Family Medical History / Comment(s): 2 with lung and 1 with prostate Mother Family Medical History: Myocardial Infarction (OR) Father Additional Family Medical History / Comment(s): AT AGE 83 FROM "HARDENING OF THE ARTERIES" Medications and Allergies Home Medications and Allergies Comment(s): Current Medications Albuterol/Ipratropium (Duoneb 0.5 Mg-3 Mg/3 Ml Soln) 3 ml INHALATION RT-QID [facility] Last Admin: 04/20/18 11:40 Dose: 3 ml Albuterol/Ipratropium (Duoneb 0.5 Mg-3 Mg/3 Ml Soln) 3 ml INHALATION RT-Q2H PRN PRN Reason: Shortness Of Breath Or Wheezing Atorvastatin Calcium (Lipitor) 40 mg PO [facility] Last Admin: 04/19/18 19:43 Dose: 40 mg Clopidogrel Bisulfate (Plavix) 75 mg PO DAILY [facility] Last Admin: 04/20/18 09:12 Dose: 75 mg Doxazosin Mesylate (Cardura) 2 mg PO HS [facility] Last Admin: 04/19/18 19:43 Dose: 2 mg Furosemide (Lasix) 40 mg IV Q12HR [facility] Gabapentin (Neurontin) 200 mg PO TID [facility] Last Admin: 04/20/18 09:12 Dose: 200 mg Piperacillin/Tazobactam/ (Dextrose 3.375 gm/ IV Solution) 50 mls @ 12.5 mls/hr IVPB Q8HR [facility] Last Admin: 04/20/18 09:10 Dose: 12.5 mls/hr Isosorbide Mononitrate (Imdur) 15 mg PO DAILY [facility] Last Admin: 04/20/18 09:12 Dose: 15 mg Lidocaine HCl (.Xylocaine 1% Inj (10mg/Ml) For Iv Start) 0.1 ml INTRADERMA PER PROTOCOL PRN PRN Reason: IV Start Metoprolol Tartrate (Lopressor) 50 mg PO BID [facility] Last Admin: 04/20/18 09:12 Dose: 50 mg Miscellaneous Information (Magnesium Per Protocol) 1 each MISCELLANE DAILY PRN ; Protocol PRN Reason: Per Protocol Miscellaneous Information (Potassium Per Protocol) 1 each MISCELLANE DAILY PRN ; Protocol PRN Reason: Per Protocol Naloxone HCl (Narcan) 0.2 mg IV Q2M PRN PRN Reason: Opioid Reversal Nitroglycerin (Nitrostat) 0.4 mg SUBLINGUAL ONCE PRN PRN Reason: Chest Pain Last Admin: 04/16/18 08:35 Dose: 0.4 mg Ruxolitinib Phosphate [Jakafi] 25 Mg 25 mg PO BID [facility] Last Admin: 04/20/18 09:12 Dose: 25 mg Oxycodone/Acetaminophen (Percocet 5-325) 1 each PO Q4HR PRN PRN Reason: Pain Last Admin: 04/20/18 11:06 Dose: 1 each Spironolactone (Aldactone) 25 mg PO DAILY [facility] Last Admin: 04/20/18 09:11 Dose: 25 mg Home Medications Medication Instructions Recorded Confirmed Type Atorvastatin [Lipitor] 40 mg PO HS 09/27/14 04/11/18 History Metoprolol Tartrate [Lopressor] 50 mg PO BID 09/27/14 04/11/18 History Terazosin [Hytrin] 5 mg PO HS 09/27/14 04/11/18 History Enalapril [Vasotec] 5 mg PO DAILY #30 tablet 10/12/14 04/11/18 Rx Pantoprazole [Protonix] 40 mg PO BID 11/12/17 04/11/18 History Spironolactone [Aldactone] 25 mg PO DAILY 11/12/17 04/11/18 History Furosemide [Lasix] 40 mg PO BID #0 11/21/17 04/11/18 Rx Ruxolitinib Phosphate [Jakafi] 25 mg PO BID 02/07/18 04/11/18 History oxyCODONE HCL/ACETAMINOPHEN 1 tab PO Q6HR PRN 03/05/18 04/11/18 History [Endocet 5-325 mg] Aspirin 81 mg PO DAILY #30 chew 04/07/18 04/11/18 Rx Clopidogrel [Plavix] 75 mg PO DAILY #30 tab 04/07/18 04/11/18 Rx Rivaroxaban [Xarelto] 15 mg PO W/SUPPER #30 tab 04/07/18 04/11/18 Rx Allergies Allergy/AdvReac Type Severity Reaction Status Date / Time No Known Allergies Allergy Verified 04/11/18 13:06 Physical Exam Vitals: Vital Signs Temp Pulse Pulse Pulse Resp BP Pulse Ox 04/20/18 12:00 96 18 04/20/18 11:52 94 04/20/18 11:40 94 04/20/18 11:02 97.8 F 96 22 100/58 98 04/20/18 07:42 144 H 32 H 04/20/18 07:24 144 H 32 H 124/58 99 04/20/18 06:00 148 H 28 H 120/63 91 L 04/20/18 05:53 94 L 04/20/18 05:38 99 24 119/57 91 L 04/20/18 04:00 97.4 F L 92 98 18 129/70 96 04/20/18 00:00 99 F 92 17 102/55 91 L 04/19/18 20:00 98.1 F 87 17 108/56 95 04/19/18 16:00 69 16 109/51 94 L Intake and Output 04/19/18 04/20/18 04/20/18 22:59 06:59 14:59 Intake Total 550 450 Output Total 501 150 Balance 550 -501 300 Intake: Oral 550 450 Output: Urine 500 150 Stool 1 Other: Voiding Method Urinal Urinal # Voids 0 Weight 78 kg 78-year-old male who apparently is much more comfortable now than earlier in the day, he is much less short of breath HEENT: Anicteric conjunctiva are pink and moist nasal mucosa grossly intact without significant lesions, there is no thrush. No new oral lesions Neck: The neck is supple without significant lymphadenopathy or thyromegaly. Lungs: Symmetrical air entry is noted, there is evidence of course bronchial sounds right posterior zone some crackles are scattered and expiratory wheezes are also scattered throughout both lungs there was no dullness or egophony Heart: Irregular audible S1-S2, no S3 soft S4. There is no significant murmur click or rub, PMI was nondisplaced. Abdomen: Positive bowel sounds soft and nontender without palpable masses or organomegaly. There was no guarding or rebound. Extremities: The upper extremities have excellent pulses they are symmetric, no significant petechiae or telangiectasia. No splinter hemorrhages were noted. The lower extremities do not have significant edema. The left foot is without lesions. The right foot shows evidence of the healing area at the base of the fourth and fifth toes when there is just some minimal dried eschar with no expressible purulence. The site is really not very tender. It is not tender. The limb has only minimal edema which apparently is considerably improved from recent times. Is evidence of distention of his veins in the foot that are easily seen. Neuro: Awake alert oriented to person place and time. There are no acute new gross focal sensory motor deficits. Results CBC & Chem 7: 04/20/18 05:56 04/20/18 05:56 Labs: Abnormal Lab Results - Last 24 Hours (Table) 04/20/18 04/20/18 04/20/18 Range/Units 05:56 05:56 05:56 WBC 27.2 H* (3.8-10.6) k/uL RBC 2.79 L (4.30-5.90) m/uL Hgb 7.9 L (13.0-17.5) gm/dL Hct 25.2 L (39.0-53.0) % RDW 19.4 H (11.5-15.5) % Plt Count 817 H* (150-450) k/uL Neutrophils # (Manual) 21.40 H (1.3-7.7) k/uL Monocytes # (Manual) 1.36 H (0-1.0) k/uL Metamyelocytes # (Man) 1.63 H (0) k/uL Myelocytes # (Manual) 1.63 H (0) k/uL Nucleated RBCs 1 H (0-0) /100 WBC PT 12.6 H (9.0-12.0) sec INR 1.3 H (<1.2) D-Dimer 1.92 H (<0.60) mg/L FEU ABG pCO2 (35-45) mmHg ABG pO2 (83-108) mmHg ABG O2 Saturation (94-97) % Sodium 133 L (137-145) mmol/L Calcium 8.3 L (8.4-10.2) mg/dL Total Bilirubin 1.4 H (0.2-1.3) mg/dL Alkaline Phosphatase 215 H (38-126) U/L Total Protein 5.1 L (6.3-8.2) g/dL Albumin 2.9 L (3.5-5.0) g/dL 04/20/18 Range/Units 07:51 WBC (3.8-10.6) k/uL RBC (4.30-5.90) m/uL Hgb (13.0-17.5) gm/dL Hct (39.0-53.0) % RDW (11.5-15.5) % Plt Count (150-450) k/uL Neutrophils # (Manual) (1.3-7.7) k/uL Monocytes # (Manual) (0-1.0) k/uL Metamyelocytes # (Man) (0) k/uL Myelocytes # (Manual) (0) k/uL Nucleated RBCs (0-0) /100 WBC PT (9.0-12.0) sec INR (<1.2) D-Dimer (<0.60) mg/L FEU ABG pCO2 33 L (35-45) mmHg ABG pO2 183 H (83-108) mmHg ABG O2 Saturation 99.9 H (94-97) % Sodium (137-145) mmol/L Calcium (8.4-10.2) mg/dL Total Bilirubin (0.2-1.3) mg/dL Alkaline Phosphatase (38-126) U/L Total Protein (6.3-8.2) g/dL Albumin (3.5-5.0) g/dL Laboratory Results WBC 27.2 k/uL (3.8-10.6) H* 04/20/18 05:56 RBC 2.79 m/uL (4.30-5.90) L 04/20/18 05:56 Hgb 7.9 gm/dL (13.0-17.5) L 04/20/18 05:56 Hct 25.2 % (39.0-53.0) L 04/20/18 05:56 MCV 90.4 fL (80.0-100.0) 04/20/18 05:56 MCH 28.3 pg (25.0-35.0) 04/20/18 05:56 MCHC 31.3 g/dL (31.0-37.0) 04/20/18 05:56 RDW 19.4 % (11.5-15.5) H 04/20/18 05:56 Plt Count 817 k/uL (150-450) H* 04/20/18 05:56 Neutrophils % 82 % 04/16/18 05:17 Neutrophils % (Manual) 69 % 04/20/18 05:56 Band Neutrophils % 10 % 04/20/18 05:56 Lymphocytes % 8 % 04/16/18 05:17 Lymphocytes % (Manual) 5 % 04/20/18 05:56 Monocytes % 4 % 04/16/18 05:17 Monocytes % (Manual) 5 % 04/20/18 05:56 Eosinophils % 1 % 04/16/18 05:17 Eosinophils % (Manual) 1 % 04/20/18 05:56 Basophils % 2 % 04/16/18 05:17 Basophils % (Manual) 1 % 04/19/18 06:07 Metamyelocytes % 6 % 04/20/18 05:56 Myelocytes % 6 % 04/20/18 05:56 Neutrophils # 13.9 k/uL (1.3-7.7) H 04/16/18 05:17 Neutrophils # (Manual) 21.40 k/uL (1.3-7.7) H 04/20/18 05:56 Lymphocytes # 1.4 k/uL (1.0-4.8) 04/16/18 05:17 Lymphocytes # (Manual) 1.36 k/uL (1.0-4.8) 04/20/18 05:56 Monocytes # 0.7 k/uL (0-1.0) 04/16/18 05:17 Monocytes # (Manual) 1.36 k/uL (0-1.0) H 04/20/18 05:56 Eosinophils # 0.2 k/uL (0-0.7) 04/16/18 05:17 Eosinophils # (Manual) 0.27 k/uL (0-0.7) 04/20/18 05:56 Basophils # 0.3 k/uL (0-0.2) H 04/16/18 05:17 Basophils # (Manual) 0.22 k/uL (0-0.2) H 04/19/18 06:07 Metamyelocytes # (Man) 1.63 k/uL (0) H 04/20/18 05:56 Myelocytes # (Manual) 1.63 k/uL (0) H 04/20/18 05:56 Nucleated RBCs 1 /100 WBC (0-0) H 04/20/18 05:56 Manual Slide Review Performed 04/17/18 04:32 Toxic Vacuolation Present 04/12/18 03:37 Large Platelets Present 04/19/18 06:07 Polychromasia Present 04/20/18 05:56 Hypochromasia (manual) Present 04/17/18 04:32 Poikilocytosis Slight 04/20/18 05:56 Poikilocytosis (manual Present 04/17/18 04:32 Basophilic Stippling Present 04/19/18 06:07 Anisocytosis Slight 04/20/18 05:56 Tear Drop Cells Present 04/11/18 18:46 Ovalocytes Present 04/20/18 05:56 Crenated Cell Present 04/20/18 05:56 Fragmented RBCs Present 04/20/18 05:56 PT 12.6 sec (9.0-12.0) H 04/20/18 05:56 INR 1.3 (<1.2) H 04/20/18 05:56 APTT 32.8 sec (22.0-30.0) H 04/11/18 12:32 D-Dimer 1.92 mg/L FEU (<0.60) H 04/20/18 05:56 Sample Site RRAD 04/20/18 07:51 ABG pH 7.43 (7.35-7.45) 04/20/18 07:51 ABG pCO2 33 mmHg (35-45) L 04/20/18 07:51 ABG pO2 183 mmHg (83-108) H 04/20/18 07:51 ABG HCO3 22 mmol/L (21-25) 04/20/18 07:51 ABG Total CO2 23 mmol/L (19-24) 04/20/18 07:51 ABG O2 Saturation 99.9 % (94-97) H 04/20/18 07:51 ABG Base Excess -2.3 mmol/L 04/20/18 07:51 Rudolph Test Yes 04/20/18 07:51 FiO2 100 % 04/20/18 07:51 Sodium 133 mmol/L (137-145) L 04/20/18 05:56 Potassium 4.8 mmol/L (3.5-5.1) 04/20/18 05:56 Chloride 100 mmol/L (98-107) 04/20/18 05:56 Carbon Dioxide 23 mmol/L (22-30) 04/20/18 05:56 Anion Gap 10 mmol/L 04/20/18 05:56 BUN 19 mg/dL (9-20) 04/20/18 05:56 Creatinine 0.80 mg/dL (0.66-1.25) 04/20/18 05:56 Est GFR (CKD-EPI)AfAm >90 (>60 ml/min/1.73 sqM) 04/20/18 05:56 Est GFR (CKD-EPI)NonAf 86 (>60 ml/min/1.73 sqM) 04/20/18 05:56 Glucose 98 mg/dL (74-99) 04/20/18 05:56 POC Glucose (mg/dL) 122 mg/dL (75-99) H 04/16/18 12:08 POC Glu [employer] Corey Vo 04/16/18 12:08 Calcium 8.3 mg/dL (8.4-10.2) L 04/20/18 05:56 Phosphorus 3.7 mg/dL (2.5-4.5) 04/15/18 03:36 Magnesium 2.0 mg/dL (1.6-2.3) 04/15/18 03:36 Total Bilirubin 1.4 mg/dL (0.2-1.3) H 04/20/18 05:56 AST 34 U/L (17-59) 04/20/18 05:56 ALT 41 U/L (21-72) 04/20/18 05:56 Alkaline Phosphatase 215 U/L (38-126) H 04/20/18 05:56 Total Creatine Kinase 59 U/L (55-170) 04/12/18 03:37 CK-MB (CK-2) 7.1 ng/mL (0.0-2.4) H* 04/12/18 03:37 CK-MB (CK-2) Rel Index 12.0 04/12/18 03:37 Troponin I 1.850 ng/mL (0.000-0.034) H* 04/12/18 03:37 Total Protein 5.1 g/dL (6.3-8.2) L 04/20/18 05:56 Albumin 2.9 g/dL (3.5-5.0) L 04/20/18 05:56 Urine Color Yellow 04/13/18 09:20 Urine Appearance Clear (Clear) 04/13/18 09:20 Urine pH 5.5 (5.0-8.0) 04/13/18 09:20 Ur Specific [place] 1.014 (1.001-1.035) 04/13/18 09:20 Urine Protein Negative (Negative) 04/13/18 09:20 Urine Glucose (UA) Negative (Negative) 04/13/18 09:20 Urine Ketones Negative (Negative) 04/13/18 09:20 Urine Blood Moderate (Negative) H 04/13/18 09:20 Urine Nitrite Negative (Negative) 04/13/18 09:20 Urine Bilirubin Negative (Negative) 04/13/18 09:20 Urine Urobilinogen 6.0 mg/dL (<2.0) 04/13/18 09:20 Ur Leukocyte Esterase Negative (Negative) 04/13/18 09:20 Urine WBC 1 /hpf (0-5) 04/13/18 09:20 Urine Bacteria Rare /hpf (None) H 04/13/18 09:20 Stool Occult Blood Positive (Negative) 04/11/18 12:39 Blood Type A Positive 04/15/18 03:36 Blood Type Recheck No 04/15/18 03:36 Antibody Screen NEGATIVE 04/15/18 03:36 Crossmatch See Detail 04/11/18 12:32 Spec Expiration Date 04/18/2018 - 233504/15/18 03:36 Microbiology 04/13/18 09:20 Urine,Catheterized Urine Culture - Final CT scan - chest: report reviewed (Evidence of new infiltration right upper lobe which is new compared to prior studies, effusions are present but less than in the past, there is a history of a thoracentesis with marked improvement of fluid to the right chest.) Assessment and Plan (1) MDS (myelodysplastic syndrome) Current Visit: Yes Status: Chronic Code(s): D46.9 - MYELODYSPLASTIC SYNDROME , UNSPECIFIED SNOMED Code(s): 674404950 (2) Non-STEMI (non-ST elevated myocardial infarction) Current Visit: Yes Status: Acute Code(s): I21.4 - NON-ST ELEVATION (NSTEMI) MYOCARDIAL INFARCTION SNOMED Code(s): 322004080 (3) Peripheral vascular disease Current Visit: Yes Status: Acute Code(s): I73.9 - PERIPHERAL VASCULAR DISEASE, UNSPECIFIED SNOMED Code(s): 381308628 (4) Gram-negative pneumonia Narrative/Plan: 78-year-old female presents to hospital 9 days prior bout of chest pain and increasing shortness of breath. He has noted he has significant underlying medical conditions that include myelodysplastic syndrome with severe peripheral artery disease. He's had a recent interventions which include the endarterectomy of the right femoral artery and then the further endarterectomy distally in the leg. He had repair of pseudoaneurysm and did have some blood loss and possible retroperitoneal hematoma. He fortunately is doing considerably better in the right limb seems to be doing well without evidence of significant infection at this time he small eschar appears to be healing well. The foot although not normal is adequately perfused. The patient knows developed significant worsening of his shortness of breath and there was concern for pulmonary embolus but CT showed evidence of new pulmonary infiltrates more consistent with pneumonia. 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 The patient does not have significant ALLERGIES consequently antimicrobial therapy of Zosyn be transitioned to intravenous trimethoprim sulfamethoxazole to ensure were covering for the prior isolated gram negatives in his sputum that are modestly resistant to usual treatments. The patient is at risk for these pathogens because of his underlying MDS. There is been a significant increase of his leukocytosis which may correlate well with the pneumonia that is being followed. The site to the right groin does not appear to be infected at this time. Sputum and blood cultures are requested and he shall be monitored. Current Visit: Yes Status: Acute Code(s): J15.6 - PNEUMONIA DUE TO OTHER GRAM-NEGATIVE BACTERIA SNOMED Code(s): 352684086
[2018-04-20] MEDS: DOXAZOSIN 2 MG TAB PO SCH (19:51)
[2018-04-20] MEDS: FUROSEMIDE 10 MG/ML 4 ML VIAL IV SCH (19:51)
[2018-04-20] MEDS: ATORVASTATIN 40 MG TAB PO SCH (19:51)
[2018-04-20] MEDS: SULFAMETHOX-TMP 80-16MG/ML 400 MG in DEXTROSE 5% IN WATER 500 ML IVPB SCH ×2 (21:24)
[2018-04-21] MEDS: oxyCODONE-APAP 5-325MG 1 EACH TAB PO PRN ×4 (01:54→22:21)
[2018-04-21] MEDS: IPRATROPIUM-ALBUTEROL 3 ML NEB INHALATION SCH ×4 (07:38→18:55)
[2018-04-21] MEDS: SPIRONOLACTONE 25 MG TAB PO SCH (08:11)
[2018-04-21] MEDS: PIPERACILLIN-TAZOBACTAM 3.375 GM in DEXTROSE/WATER 1 50ML.BAG IVPB SCH ×2 (08:11→16:04)
[2018-04-21] MEDS: ISOSORBIDE MONONITRATE ER 15 MG TAB PO SCH (08:12)
[2018-04-21] MEDS: METOPROLOL TARTRATE 50 MG TAB PO SCH ×2 (08:12→22:22)
[2018-04-21] MEDS: CLOPIDOGREL 75 MG TAB PO SCH (08:12)
[2018-04-21] MEDS: GABAPENTIN 100 MG CAP PO SCH ×3 (08:12→20:43)
[2018-04-21] MEDS: FUROSEMIDE 10 MG/ML 4 ML VIAL IV SCH (08:12)
[2018-04-21] MEDS: RUXOLITINIB PHOSPHATE PO SCH ×2 (08:12→20:43)
[2018-04-21] MEDS ORDERED: COLCHICINE 0.6 MG EACH PO ONE (09:00)
[2018-04-21] MEDS: SULFAMETHOX-TMP 80-16MG/ML 400 MG in DEXTROSE 5% IN WATER 500 ML IVPB SCH ×4 (10:45→22:21)
--- NOTE | 2018-04-21 11:04 | P.PN ---
Subjective Progress Note Date: 04/21/18 This is a 78-year-old gentleman admitted to the hospital with lower GI bleed. Patient had been on beta blockers previously and they were on hold, day before yesterday, patient went into what appears to be a supraventricular tachycardia, he underwent sinus massage by Dr. Womack and converted. Today he continues to be in an atrial flutter with controlled ventricular response. He is awake, alert, in no distress. Hemodynamically stable. No further evidence of any dark tarry stools. Hemoglobin today is 7.3. Capsule endoscopy do not identify the source of the bleeding. He denies any abdominal discomfort. 04/21/2018 Patient was seen and examined this morning, still feeling somewhat short of breath however improved from yesterday. Continues to be on IV Lasix. A CTA of the chest was performed yesterday which revealed extensive right upper lobe pneumonic consolidation consistent with bronchopneumonia. Numerous air bronchograms. There is also smaller right lower lobe pulmonary consolidation. Bilateral pleural effusions. Probable congestive heart failure. No evidence of pulmonary embolism, mediastinal and bronchial lymphadenopathy consistent with inflammatory diseases noted. Pleural effusions are unchanged as compared with the 10th of this month. The pneumonic consolidation has increased. Consultation has been requested with Dr. Jenkins. Objective - Vital Signs Vital signs: Vital Signs Temp 97.5 F L 04/21/18 08:34 Pulse 92 04/21/18 08:34 Resp 18 04/21/18 08:34 BP 108/53 04/21/18 08:34 Pulse Ox 95 04/21/18 08:34 Intake & Output 04/20/18 04/21/18 04/21/18 18:59 06:59 18:59 Intake Total 550 360 Output Total 150 1225 1401 Balance 400 -1225 -1041 Weight 73.6 kg Intake: Intake, IV Titration 100 Amount Piperacillin-Tazobactam 3 100 .375 gm In Dextrose/Water 1 50ml.bag @ 12.5 mls/hr IVPB Q8HR JOSE Rx#: [id number] Oral 450 360 Output: Urine 150 1225 1400 Stool 1 Other: Voiding Method Urinal Urinal # Voids 1 # Bowel Movements 1 - Exam Physical Exam: Revealed a 78-year-old white male, in no distress. Head: Atraumatic, normocephalic. HEENT:Neck is supple.] [No neck masses.No thyromegaly.No JVD. Chest: Diminished breath sounds at the bases right greater than left, crackles to the left posterior base . Cardiac Exam: Normal S1 and S2, no S3 gallop, 2/6 systolic murmur throughout the precordium. Abdomen: Soft, nontender, no megaly, no rebound, no guarding, normal bowel sounds. Extremities: Trace of edema, tender feet, improved fourth right toe skin small necrotic area. Neurological Exam: [No focal neurologic deficit. Lymphatics: No lymphadenopathy. Psychiatric: Normal mood affect and mental status examination. - Labs CBC & Chem 7: 04/20/18 05:56 04/20/18 05:56 Assessment and Plan Plan: Assessment and plan #1 acute non-ST elevation myocardial infarction #2 profound anemia, secondary to acute blood loss and myeloproliferative disorder. His blood loss is related to his GI blood loss, investigation is pending. CT of the abdomen and pelvis showed no evidence of active bleeding in the retroperitoneal area. This was done today. Hence the patient will need further GI workup which is pending and it will be done tomorrow by Dr. Kwan. #3 multiple comorbidities including coronary artery disease, previous CABG, chronic cor pulmonale and severe pulmonary hypertension, peripheral vessel occlusive disease, chronic ischemic right lower extremity, recent PTBA of right superficial femoral artery Plan From cardiology's perspective, we will continue the patient on the current medications he is on at this time. Arrangements are being made for possible rehab post discharge. DNP note has been reviewed, I agree with a documented findings and plan of care. Patient was seen and examined.
--- NOTE | 2018-04-21 13:56 | XR ---
EXAMINATION TYPE: XR chest 2V DATE OF EXAM: 04/21/2018 COMPARISON: 04/20/2018 TECHNIQUE: PA and lateral views submitted. HISTORY: Shortness of breath FINDINGS: Diffuse interstitial pattern with right-sided consolidation and pleural effusion. Pleural-based calci fication in the left suggested. Arthropathy of the shoulders. Cardiomegaly, atherosclerotic change ao rta and postoperative changes seen. No pneumothorax. IMPRESSION: 1. Persistent bilateral consolidation and pleural effusion. Interstitial pattern persists CHF favored over pneumonia correlate clinically.
--- NOTE | 2018-04-21 19:53 | P.PN ---
Subjective Progress Note Date: 04/21/18 Very pleasant 78-year-old male who presents to Hospital from home 9 days ago with progressive weakness and increasing shortness of breath diaphoresis and discomfort within his chest. EMS was called and he was transported to Hospital and the patient related that some supplement rescinded give him some improvement. At admission he was seen by cardiology and medical management was suggested. The patient has a known history of myelodysplastic syndrome as well as severe peripheral arterial disease and underwent interventions including right femoral artery endarterectomy with patch angioplasty. Afterwards he had arthrectomy and angioplasty distally on the right leg. This is allowed improvement the blood flow in marked improvement to the ischemic foot reveals significant swelling and some ulceration. The patient is very pleased leg is doing so much better. The severe pain is improved. Ulceration is improving and drainage has resolved. Patient however has now had significant and profound shortness of breath. He was considerably worse this morning he was on 15 L of oxygen but with some breathing treatments he has now settled in his back down to 6 L of oxygen. He still feels very poorly. However the significant pain he was having after his procedures partly because he developed some hematoma and some superficial clot is improving he is more comfortable. With his profound shortness of breath earlier in his interventions there was concern for the possibility of a pulmonary embolism because CT angiogram was performed, no pulmonary [place] was seen but new extensive infiltration in the right upper lobe as well as some ongoing pleural effusions were seen. With concerns of pneumonia the infectious diseases consultation was requested The patient has received recent treatment with JAKAFI for his myelodysplastic syndrome. 04/21/2014 reveals the patient to be feeling somewhat better today. He is less short of breath. Fevers have improved but he continues to have some ongoing pain to the right foot. The recent difficulties with the severe peripheral vascular disease and ischemia. He is denying any acute new skin lesions. Appetite is adequate, and denies significant sputum production or hemoptysis. Objective - Vital Signs Vital signs: Vital Signs Temp 97.8 F 04/21/18 16:39 Pulse 76 04/21/18 19:04 Resp 18 04/21/18 16:39 BP 109/53 04/21/18 16:39 Pulse Ox 93 L 04/21/18 16:39 Intake & Output 04/21/18 04/21/18 04/22/18 06:59 18:59 06:59 Intake Total 960 Output Total 1225 1803 Balance -1225 -843 Weight 73.6 kg Intake: Oral 960 Output: Urine 1225 1800 Stool 3 Other: Voiding Method Urinal Urinal # Voids 1 # Bowel Movements 1 - Exam 78-year-old male who apparently is much more comfortable now than earlier in the day, he is much less short of breath HEENT: Anicteric conjunctiva are pink and moist nasal mucosa grossly intact without significant lesions, there is no thrush. No new oral lesions Neck: The neck is supple without significant lymphadenopathy or thyromegaly. Lungs: Symmetrical air entry is noted, there is evidence of course bronchial sounds right posterior zone some crackles are scattered and expiratory wheezes are also scattered throughout both lungs there was no dullness or egophony Heart: Irregular audible S1-S2, no S3 soft S4. There is no significant murmur click or rub, PMI was nondisplaced. Abdomen: Positive bowel sounds soft and nontender without palpable masses or organomegaly. There was no guarding or rebound. Extremities: The upper extremities have excellent pulses they are symmetric, no significant petechiae or telangiectasia. No splinter hemorrhages were noted. The lower extremities do not have significant edema. The left foot is without lesions. The right foot shows evidence of the healing area at the base of the fourth and fifth toes when there is just some minimal dried eschar with no expressible purulence. The site is really not very tender. It is not tender. The limb has only minimal edema which apparently is considerably improved from recent times. Is evidence of distention of his veins in the foot that are easily seen. Neuro: Awake alert oriented to person place and time. There are no acute new gross focal sensory motor deficits. - Labs CBC & Chem 7: 04/20/18 05:56 04/20/18 05:56 Labs: Microbiology - Last 24 Hours (Table) 04/20/18 15:52 Blood Culture - Preliminary Blood No Growth after 24 hours Laboratory Results WBC 27.2 k/uL (3.8-10.6) H* 04/20/18 05:56 RBC 2.79 m/uL (4.30-5.90) L 04/20/18 05:56 Hgb 7.9 gm/dL (13.0-17.5) L 04/20/18 05:56 Hct 25.2 % (39.0-53.0) L 04/20/18 05:56 MCV 90.4 fL (80.0-100.0) 04/20/18 05:56 MCH 28.3 pg (25.0-35.0) 04/20/18 05:56 MCHC 31.3 g/dL (31.0-37.0) 04/20/18 05:56 RDW 19.4 % (11.5-15.5) H 04/20/18 05:56 Plt Count 817 k/uL (150-450) H* 04/20/18 05:56 Neutrophils % 82 % 04/16/18 05:17 Neutrophils % (Manual) 69 % 04/20/18 05:56 Band Neutrophils % 10 % 04/20/18 05:56 Lymphocytes % 8 % 04/16/18 05:17 Lymphocytes % (Manual) 5 % 04/20/18 05:56 Monocytes % 4 % 04/16/18 05:17 Monocytes % (Manual) 5 % 04/20/18 05:56 Eosinophils % 1 % 04/16/18 05:17 Eosinophils % (Manual) 1 % 04/20/18 05:56 Basophils % 2 % 04/16/18 05:17 Basophils % (Manual) 1 % 04/19/18 06:07 Metamyelocytes % 6 % 04/20/18 05:56 Myelocytes % 6 % 04/20/18 05:56 Neutrophils # 13.9 k/uL (1.3-7.7) H 04/16/18 05:17 Neutrophils # (Manual) 21.40 k/uL (1.3-7.7) H 04/20/18 05:56 Lymphocytes # 1.4 k/uL (1.0-4.8) 04/16/18 05:17 Lymphocytes # (Manual) 1.36 k/uL (1.0-4.8) 04/20/18 05:56 Monocytes # 0.7 k/uL (0-1.0) 04/16/18 05:17 Monocytes # (Manual) 1.36 k/uL (0-1.0) H 04/20/18 05:56 Eosinophils # 0.2 k/uL (0-0.7) 04/16/18 05:17 Eosinophils # (Manual) 0.27 k/uL (0-0.7) 04/20/18 05:56 Basophils # 0.3 k/uL (0-0.2) H 04/16/18 05:17 Basophils # (Manual) 0.22 k/uL (0-0.2) H 04/19/18 06:07 Metamyelocytes # (Man) 1.63 k/uL (0) H 04/20/18 05:56 Myelocytes # (Manual) 1.63 k/uL (0) H 04/20/18 05:56 Nucleated RBCs 1 /100 WBC (0-0) H 04/20/18 05:56 Manual Slide Review Performed 04/17/18 04:32 Toxic Vacuolation Present 04/12/18 03:37 Large Platelets Present 04/19/18 06:07 Polychromasia Present 04/20/18 05:56 Hypochromasia (manual) Present 04/17/18 04:32 Poikilocytosis Slight 04/20/18 05:56 Poikilocytosis (manual Present 04/17/18 04:32 Basophilic Stippling Present 04/19/18 06:07 Anisocytosis Slight 04/20/18 05:56 Tear Drop Cells Present 04/11/18 18:46 Ovalocytes Present 04/20/18 05:56 Crenated Cell Present 04/20/18 05:56 Fragmented RBCs Present 04/20/18 05:56 PT 12.6 sec (9.0-12.0) H 04/20/18 05:56 INR 1.3 (<1.2) H 04/20/18 05:56 APTT 32.8 sec (22.0-30.0) H 04/11/18 12:32 D-Dimer 1.92 mg/L FEU (<0.60) H 04/20/18 05:56 Sample Site RRAD 04/20/18 07:51 ABG pH 7.43 (7.35-7.45) 04/20/18 07:51 ABG pCO2 33 mmHg (35-45) L 04/20/18 07:51 ABG pO2 183 mmHg (83-108) H 04/20/18 07:51 ABG HCO3 22 mmol/L (21-25) 04/20/18 07:51 ABG Total CO2 23 mmol/L (19-24) 04/20/18 07:51 ABG O2 Saturation 99.9 % (94-97) H 04/20/18 07:51 ABG Base Excess -2.3 mmol/L 04/20/18 07:51 Rudolph Test Yes 04/20/18 07:51 FiO2 100 % 04/20/18 07:51 Sodium 133 mmol/L (137-145) L 04/20/18 05:56 Potassium 4.8 mmol/L (3.5-5.1) 04/20/18 05:56 Chloride 100 mmol/L (98-107) 04/20/18 05:56 Carbon Dioxide 23 mmol/L (22-30) 04/20/18 05:56 Anion Gap 10 mmol/L 04/20/18 05:56 BUN 19 mg/dL (9-20) 04/20/18 05:56 Creatinine 0.80 mg/dL (0.66-1.25) 04/20/18 05:56 Est GFR (CKD-EPI)AfAm >90 (>60 ml/min/1.73 sqM) 04/20/18 05:56 Est GFR (CKD-EPI)NonAf 86 (>60 ml/min/1.73 sqM) 04/20/18 05:56 Glucose 98 mg/dL (74-99) 04/20/18 05:56 POC Glucose (mg/dL) 122 mg/dL (75-99) H 04/16/18 12:08 POC Glu Sheet [facility] Corey Vo 04/16/18 12:08 Calcium 8.3 mg/dL (8.4-10.2) L 04/20/18 05:56 Phosphorus 3.7 mg/dL (2.5-4.5) 04/15/18 03:36 Magnesium 2.0 mg/dL (1.6-2.3) 04/15/18 03:36 Total Bilirubin 1.4 mg/dL (0.2-1.3) H 04/20/18 05:56 AST 34 U/L (17-59) 04/20/18 05:56 ALT 41 U/L (21-72) 04/20/18 05:56 Alkaline Phosphatase 215 U/L (38-126) H 04/20/18 05:56 Total Creatine Kinase 59 U/L (55-170) 04/12/18 03:37 CK-MB (CK-2) 7.1 ng/mL (0.0-2.4) H* 04/12/18 03:37 CK-MB (CK-2) Rel Index 12.0 04/12/18 03:37 Troponin I 1.850 ng/mL (0.000-0.034) H* 04/12/18 03:37 Total Protein 5.1 g/dL (6.3-8.2) L 04/20/18 05:56 Albumin 2.9 g/dL (3.5-5.0) L 04/20/18 05:56 Urine Color Yellow 04/13/18 09:20 Urine Appearance Clear (Clear) 04/13/18 09:20 Urine pH 5.5 (5.0-8.0) 04/13/18 09:20 Ur Specific [place] 1.014 (1.001-1.035) 04/13/18 09:20 Urine Protein Negative (Negative) 04/13/18 09:20 Urine Glucose (UA) Negative (Negative) 04/13/18 09:20 Urine Ketones Negative (Negative) 04/13/18 09:20 Urine Blood Moderate (Negative) H 04/13/18 09:20 Urine Nitrite Negative (Negative) 04/13/18 09:20 Urine Bilirubin Negative (Negative) 04/13/18 09:20 Urine Urobilinogen 6.0 mg/dL (<2.0) 04/13/18 09:20 Ur Leukocyte Esterase Negative (Negative) 04/13/18 09:20 Urine WBC 1 /hpf (0-5) 04/13/18 09:20 Urine Bacteria Rare /hpf (None) H 04/13/18 09:20 Stool Occult Blood Positive (Negative) 04/11/18 12:39 Blood Type A Positive 04/15/18 03:36 Blood Type Recheck No 04/15/18 03:36 Antibody Screen NEGATIVE 04/15/18 03:36 Crossmatch See Detail 04/11/18 12:32 Spec Expiration Date 04/18/2018 - 0716 04/15/18 03:36 Microbiology 04/20/18 15:52 Blood Blood Culture - Preliminary No Growth after 24 hours Assessment and Plan (1) MDS (myelodysplastic syndrome) Current Visit: Yes Status: Chronic Code(s): D46.9 - MYELODYSPLASTIC SYNDROME , UNSPECIFIED SNOMED Code(s): 356818128 (2) Non-STEMI (non-ST elevated myocardial infarction) Current Visit: Yes Status: Acute Code(s): I21.4 - NON-ST ELEVATION (NSTEMI) MYOCARDIAL INFARCTION SNOMED Code(s): 854717153 (3) Peripheral vascular disease Current Visit: Yes Status: Acute Code(s): I73.9 - PERIPHERAL VASCULAR DISEASE, UNSPECIFIED SNOMED Code(s): 656095539 (4) Gram-negative pneumonia Narrative/Plan: 78-year-old female presents to hospital 9 days prior bout of chest pain and increasing shortness of breath. He has noted he has significant underlying medical conditions that include myelodysplastic syndrome with severe peripheral artery disease. He's had a recent interventions which include the endarterectomy of the right femoral artery and then the further endarterectomy distally in the leg. He had repair of pseudoaneurysm and did have some blood loss and possible retroperitoneal hematoma. He fortunately is doing considerably better in the right limb seems to be doing well without evidence of significant infection at this time he small eschar appears to be healing well. The foot although not normal is adequately perfused. The patient knows developed significant worsening of his shortness of breath and there was concern for pulmonary embolus but CT showed evidence of new pulmonary infiltrates more consistent with pneumonia. 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 The patient does not have significant ALLERGIES consequently antimicrobial therapy of Zosyn be transitioned to intravenous trimethoprim sulfamethoxazole to ensure were covering for the prior isolated gram negatives in his sputum that are modestly resistant to usual treatments. The patient is at risk for these pathogens because of his underlying MDS. There is been a significant increase of his leukocytosis which may correlate well with the pneumonia that is being followed. The site to the right groin does not appear to be infected at this time. Sputum and blood cultures are requested and he shall be monitored. 04/21/2018 the patient is feeling better today. He is denying fevers or chills. His breathing feels better in 48 hours ago. He has minimal cough and no hemoptysis. He is tolerating the current antibiotic therapy of trimethoprim sulfamethoxazole well and denying any acute rash or abdominal symptoms. He does have myelodysplastic syndrome and is having a significant leukocytosis and a reactive thrombocytosis. His anemia appears to be stable at this time, renal function will be monitored. He likely be transitioned to oral Bactrim at the time of his discharge unless current cultures provide different guidance. Current Visit: Yes Status: Acute Code(s): J15.6 - PNEUMONIA DUE TO OTHER GRAM-NEGATIVE BACTERIA SNOMED Code(s): 672842589
[2018-04-21] MEDS: ATORVASTATIN 40 MG TAB PO SCH (20:43)
[2018-04-21] MEDS: DOXAZOSIN 2 MG TAB PO SCH (20:43)
[2018-04-21] MEDS: FUROSEMIDE 10 MG/ML 10 ML VIAL IV SCH (22:22)
--- NOTE | 2018-04-22 00:07 | PN ---
PROGRESS NOTE ATTENDING PHYSICIAN: Dr. Belia Franklin. CHIEF COMPLAINT: Re-evaluation. HISTORY OF PRESENT ILLNESS: This 78-year-old was admitted to the hospital with a subendocardial [place]. The patient has had a complex course subsequently. He had recent surgeries for peripheral arterial disease and was noted to have a retroperitoneal hematoma, which is resolving. The patient also has significant GI bleeding, which has now resolved. The patient had acute shortness of breath 2 days ago. The chest x-ray suggested CHF and pneumonia; however, he has no clinical symptoms of pneumonia. He does have mild cough with some sputum production, minimal. The patient's white count elevation is related to his myeloproliferative disorder, I believe. The patient is not showing any fever or any other subsequent symptoms of sepsis. The patient was seen by ID and they have elected to go ahead and put the patient on antibiotics. The patient also been followed by Pulmonary and Cardiology. We will discuss case with Dr. Jenkins regarding today's x- ray, which suggests more likely to be CHF than pneumonia. The patient's prognosis remains guarded. REVIEW OF SYSTEMS: NEURO: Denies any headaches or dizziness. PSYCH: No anxiety. CARDIAC: No chest pain, angina, palpitation. RESPIRATORY: Denies shortness of breath with oxygen. Does have a cough. No hemoptysis. GI: No nausea, vomiting, abdominal pain, diarrhea. : No symptoms of dysuria, hematuria. EXTREMITIES: Pain in the right leg, which is improved. CONSTITUTIONAL: No fever or chills. PHYSICAL EXAMINATION: Pleasant gentleman at present in no distress. VITAL SIGNS: Temperature 97.5, pulse 96, respirations 16, blood pressure 108/53. HEENT: Normocephalic. NECK: Decreased range of motion. No JVD. CHEST: Clear to percussion except for some dullness right base. The patient has crackles at the right base bilaterally. CARDIAC: Distant heart sounds, S1, S2 with no gallop. Systolic murmur 2/6 left sternal border. ABDOMEN: Soft. No palpable masses. Bowel sounds normal. No organomegaly. No abdominal bruits. Extremities reveal no edema. The patient has right great toe 1st MTP. The patient feels he is starting to have gouty symptoms. LABORATORY ASSESSMENT: None at present. Chest x-ray presently suggests more likely to be CHF. ASSESSMENT: 1. Acute respiratory failure, underlying cause congestive heart failure, pneumonia not ruled out. 2. Anemia secondary to acute blood loss and myeloproliferative disorder. 3. Myeloproliferative disorder with thrombocytosis and leukocytosis. 4. Chronic obstructive pulmonary disease. 5. Coronary artery disease. 6. Status post subendocardial myocardial infarction. 7. Peripheral arterial disease. PLAN: The patient at present is stable. Continue present medical regimen. Patient's condition discussed with the patient. Prognosis guarded. MMODL / IJN: [id number] /
[2018-04-22 06:32] LABS: Calcium 8.3 mg/dL (8.4-10.2); Potassium 4.7 mmol/L (3.5-5.1)
[2018-04-22 06:46] LABS: Anisocytosis Moderate; HCT 21.7 % (39.0-53.0); Hypochromasia Slight; MCH 29.1 pg (25.0-35.0); MCHC 31.8 g/dL (31.0-37.0); MCV 91.7 fL (80.0-100.0); Macrocytosis Slight; Mean Platelet Volume 8.2; Platelet Count 714 k/uL (150-450); Poikilocytosis Slight; RBC 2.37 m/uL (4.30-5.90); RDW 20.4 % (11.5-15.5); WBC 24.2 k/uL (3.8-10.6)
[2018-04-22 06:54] LABS: HGB 6.9 gm/dL (13.0-17.5)
[2018-04-22] MEDS: IPRATROPIUM-ALBUTEROL 3 ML NEB INHALATION SCH ×4 (07:43→20:51)
[2018-04-22] MEDS: SPIRONOLACTONE 25 MG TAB PO SCH (08:01)
[2018-04-22] MEDS: FUROSEMIDE 10 MG/ML 10 ML VIAL IV SCH ×2 (08:01→20:01)
[2018-04-22] MEDS: COLCHICINE 0.6 MG EACH PO SCH (08:01)
[2018-04-22] MEDS: CLOPIDOGREL 75 MG TAB PO SCH (08:01)
[2018-04-22] MEDS: ISOSORBIDE MONONITRATE ER 15 MG TAB PO SCH (08:01)
[2018-04-22] MEDS: oxyCODONE-APAP 5-325MG 1 EACH TAB PO PRN ×2 (08:01→16:10)
[2018-04-22] MEDS: METOPROLOL TARTRATE 50 MG TAB PO SCH ×2 (08:01→20:01)
[2018-04-22] MEDS: GABAPENTIN 100 MG CAP PO SCH ×3 (08:01→20:01)
[2018-04-22] MEDS: RUXOLITINIB PHOSPHATE PO SCH ×2 (08:02→20:01)
[2018-04-22] MEDS: SULFAMETHOX-TMP 80-16MG/ML 400 MG in DEXTROSE 5% IN WATER 500 ML IVPB SCH ×4 (08:40→20:43)
[2018-04-22] MEDS: DOXAZOSIN 2 MG TAB PO SCH (20:01)
[2018-04-22] MEDS: ATORVASTATIN 40 MG TAB PO SCH (20:01)
--- NOTE | 2018-04-22 22:00 | P.PN ---
Subjective Progress Note Date: 04/22/18 Very pleasant 78-year-old male who presents to Hospital from home 9 days ago with progressive weakness and increasing shortness of breath diaphoresis and discomfort within his chest. EMS was called and he was transported to Hospital and the patient related that some supplement rescinded give him some improvement. At admission he was seen by cardiology and medical management was suggested. The patient has a known history of myelodysplastic syndrome as well as severe peripheral arterial disease and underwent interventions including right femoral artery endarterectomy with patch angioplasty. Afterwards he had arthrectomy and angioplasty distally on the right leg. This is allowed improvement the blood flow in marked improvement to the ischemic foot reveals significant swelling and some ulceration. The patient is very pleased leg is doing so much better. The severe pain is improved. Ulceration is improving and drainage has resolved. Patient however has now had significant and profound shortness of breath. He was considerably worse this morning he was on 15 L of oxygen but with some breathing treatments he has now settled in his back down to 6 L of oxygen. He still feels very poorly. However the significant pain he was having after his procedures partly because he developed some hematoma and some superficial clot is improving he is more comfortable. With his profound shortness of breath earlier in his interventions there was concern for the possibility of a pulmonary embolism because CT angiogram was performed, no pulmonary [place] was seen but new extensive infiltration in the right upper lobe as well as some ongoing pleural effusions were seen. With concerns of pneumonia the infectious diseases consultation was requested The patient has received recent treatment with JAKAFI for his myelodysplastic syndrome. 04/21/2018 reveals the patient to be feeling somewhat better today. He is less short of breath. Fevers have improved but he continues to have some ongoing pain to the right foot. The recent difficulties with the severe peripheral vascular disease and ischemia. He is denying any acute new skin lesions. Appetite is adequate, and denies significant sputum production or hemoptysis. 04/22/2018 reveals the patient to be feeling better again today. He is not having fevers. His discomfort of the right groin is improved. The patient did walk a bit today but the pain to his right foot from his recent significant ischemic events to the limb limits his ambulation. Sputum culture has gram- positive cocci we await the final culture. Objective - Vital Signs Vital signs: Vital Signs Temp 97.1 F L 04/22/18 20:00 Pulse 74 04/22/18 21:01 Resp 16 04/22/18 21:01 BP 122/58 04/22/18 20:00 Pulse Ox 98 04/22/18 20:00 Intake & Output 04/22/18 04/22/18 04/23/18 06:59 18:59 06:59 Intake Total 360 500 Output Total 1875 3 801 Balance -1515 497 -801 Weight 71.8 kg Intake: Oral 360 500 Output: Urine 1875 800 Stool 3 1 Other: Voiding Method Urinal Urinal # Voids 1 1 - Exam 78-year-old male who apparently is much more comfortable now than earlier in the day, he is much less short of breath HEENT: Anicteric conjunctiva are pink and moist nasal mucosa grossly intact without significant lesions, there is no thrush. No new oral lesions Neck: The neck is supple without significant lymphadenopathy or thyromegaly. Lungs: Symmetrical air entry is noted, there is evidence of course bronchial sounds right posterior zone some crackles are scattered and expiratory wheezes are also scattered throughout both lungs there was no dullness or egophony Heart: Irregular audible S1-S2, no S3 soft S4. There is no significant murmur click or rub, PMI was nondisplaced. Abdomen: Positive bowel sounds soft and nontender without palpable masses or organomegaly. There was no guarding or rebound. Extremities: The upper extremities have excellent pulses they are symmetric, no significant petechiae or telangiectasia. No splinter hemorrhages were noted. The lower extremities do not have significant edema. The left foot is without lesions. The right foot shows evidence of the healing area at the base of the fourth and fifth toes when there is just some minimal dried eschar with no expressible purulence. The site is really not very tender. It is not tender. The limb has only minimal edema which apparently is considerably improved from recent times. Is evidence of distention of his veins in the foot that are easily seen. Neuro: Awake alert oriented to person place and time. There are no acute new gross focal sensory motor deficits. - Labs CBC & Chem 7: 04/22/18 05:52 04/22/18 05:52 Labs: Abnormal Lab Results - Last 24 Hours (Table) 04/22/18 04/22/18 Range/Units 05:52 05:52 WBC 24.2 H (3.8-10.6) k/uL RBC 2.37 L (4.30-5.90) m/uL Hgb 6.9 L* (13.0-17.5) gm/dL Hct 21.7 L (39.0-53.0) % RDW 20.4 H (11.5-15.5) % Plt Count 714 H (150-450) k/uL Sodium 134 L (137-145) mmol/L Chloride 97 L (98-107) mmol/L Calcium 8.3 L (8.4-10.2) mg/dL Microbiology - Last 24 Hours (Table) 04/20/18 15:52 Blood Culture - Preliminary Blood No Growth after 48 hours 04/21/18 07:40 Gram Stain - Preliminary Sputum Laboratory Results WBC 24.2 k/uL (3.8-10.6) H 04/22/18 05:52 RBC 2.37 m/uL (4.30-5.90) L 04/22/18 05:52 Hgb 6.9 gm/dL (13.0-17.5) L* 04/22/18 05:52 Hct 21.7 % (39.0-53.0) L 04/22/18 05:52 MCV 91.7 fL (80.0-100.0) 04/22/18 05:52 MCH 29.1 pg (25.0-35.0) 04/22/18 05:52 MCHC 31.8 g/dL (31.0-37.0) 04/22/18 05:52 RDW 20.4 % (11.5-15.5) H 04/22/18 05:52 Plt Count 714 k/uL (150-450) H 04/22/18 05:52 Neutrophils % 82 % 04/16/18 05:17 Neutrophils % (Manual) 69 % 04/20/18 05:56 Band Neutrophils % 10 % 04/20/18 05:56 Lymphocytes % 8 % 04/16/18 05:17 Lymphocytes % (Manual) 5 % 04/20/18 05:56 Monocytes % 4 % 04/16/18 05:17 Monocytes % (Manual) 5 % 04/20/18 05:56 Eosinophils % 1 % 04/16/18 05:17 Eosinophils % (Manual) 1 % 04/20/18 05:56 Basophils % 2 % 04/16/18 05:17 Basophils % (Manual) 1 % 04/19/18 06:07 Metamyelocytes % 6 % 04/20/18 05:56 Myelocytes % 6 % 04/20/18 05:56 Neutrophils # 13.9 k/uL (1.3-7.7) H 04/16/18 05:17 Neutrophils # (Manual) 21.40 k/uL (1.3-7.7) H 04/20/18 05:56 Lymphocytes # 1.4 k/uL (1.0-4.8) 04/16/18 05:17 Lymphocytes # (Manual) 1.36 k/uL (1.0-4.8) 04/20/18 05:56 Monocytes # 0.7 k/uL (0-1.0) 04/16/18 05:17 Monocytes # (Manual) 1.36 k/uL (0-1.0) H 04/20/18 05:56 Eosinophils # 0.2 k/uL (0-0.7) 04/16/18 05:17 Eosinophils # (Manual) 0.27 k/uL (0-0.7) 04/20/18 05:56 Basophils # 0.3 k/uL (0-0.2) H 04/16/18 05:17 Basophils # (Manual) 0.22 k/uL (0-0.2) H 04/19/18 06:07 Metamyelocytes # (Man) 1.63 k/uL (0) H 04/20/18 05:56 Myelocytes # (Manual) 1.63 k/uL (0) H 04/20/18 05:56 Nucleated RBCs 1 /100 WBC (0-0) H 04/20/18 05:56 Manual Slide Review Performed 04/17/18 04:32 Toxic Vacuolation Present 04/12/18 03:37 Large Platelets Present 04/19/18 06:07 Polychromasia Present 04/20/18 05:56 Hypochromasia Slight 04/22/18 05:52 Hypochromasia (manual) Present 04/17/18 04:32 Poikilocytosis Slight 04/22/18 05:52 Poikilocytosis (manual Present 04/17/18 04:32 Basophilic Stippling Present 04/19/18 06:07 Anisocytosis Moderate 04/22/18 05:52 Macrocytosis Slight 04/22/18 05:52 Tear Drop Cells Present 04/11/18 18:46 Ovalocytes Present 04/20/18 05:56 Crenated Cell Present 04/20/18 05:56 Fragmented RBCs Present 04/20/18 05:56 PT 12.6 sec (9.0-12.0) H 04/20/18 05:56 INR 1.3 (<1.2) H 04/20/18 05:56 APTT 32.8 sec (22.0-30.0) H 04/11/18 12:32 D-Dimer 1.92 mg/L FEU (<0.60) H 04/20/18 05:56 Sample Site RRAD 04/20/18 07:51 ABG pH 7.43 (7.35-7.45) 04/20/18 07:51 ABG pCO2 33 mmHg (35-45) L 04/20/18 07:51 ABG pO2 183 mmHg (83-108) H 04/20/18 07:51 ABG HCO3 22 mmol/L (21-25) 04/20/18 07:51 ABG Total CO2 23 mmol/L (19-24) 04/20/18 07:51 ABG O2 Saturation 99.9 % (94-97) H 04/20/18 07:51 ABG Base Excess -2.3 mmol/L 04/20/18 07:51 Rudolph Test Yes 04/20/18 07:51 FiO2 100 % 04/20/18 07:51 Sodium 134 mmol/L (137-145) L 04/22/18 05:52 Potassium 4.7 mmol/L (3.5-5.1) 04/22/18 05:52 Chloride 97 mmol/L (98-107) L 04/22/18 05:52 Carbon Dioxide 27 mmol/L (22-30) 04/22/18 05:52 Anion Gap 10 mmol/L 04/22/18 05:52 BUN 19 mg/dL (9-20) 04/22/18 05:52 Creatinine 1.00 mg/dL (0.66-1.25) 04/22/18 05:52 Est GFR (CKD-EPI)AfAm 83 (>60 ml/min/1.73 sqM) 04/22/18 05:52 Est GFR (CKD-EPI)NonAf 72 (>60 ml/min/1.73 sqM) 04/22/18 05:52 Glucose 89 mg/dL (74-99) 04/22/18 05:52 POC Glucose (mg/dL) 122 mg/dL (75-99) H 04/16/18 12:08 POC Glu [employer] ID Corey Vo 04/16/18 12:08 Calcium 8.3 mg/dL (8.4-10.2) L 04/22/18 05:52 Phosphorus 3.7 mg/dL (2.5-4.5) 04/15/18 03:36 Magnesium 2.0 mg/dL (1.6-2.3) 04/15/18 03:36 Total Bilirubin 1.4 mg/dL (0.2-1.3) H 04/20/18 05:56 AST 34 U/L (17-59) 04/20/18 05:56 ALT 41 U/L (21-72) 04/20/18 05:56 Alkaline Phosphatase 215 U/L (38-126) H 04/20/18 05:56 Total Creatine Kinase 59 U/L (55-170) 04/12/18 03:37 CK-MB (CK-2) 7.1 ng/mL (0.0-2.4) H* 04/12/18 03:37 CK-MB (CK-2) Rel Index 12.0 04/12/18 03:37 Troponin I 1.850 ng/mL (0.000-0.034) H* 04/12/18 03:37 NT-Pro-B Natriuret Pep 4860 pg/mL 04/22/18 05:52 Total Protein 5.1 g/dL (6.3-8.2) L 04/20/18 05:56 Albumin 2.9 g/dL (3.5-5.0) L 04/20/18 05:56 Urine Color Yellow 04/13/18 09:20 Urine Appearance Clear (Clear) 04/13/18 09:20 Urine pH 5.5 (5.0-8.0) 04/13/18 09:20 Ur Specific [place] 1.014 (1.001-1.035) 04/13/18 09:20 Urine Protein Negative (Negative) 04/13/18 09:20 Urine Glucose (UA) Negative (Negative) 04/13/18 09:20 Urine Ketones Negative (Negative) 04/13/18 09:20 Urine Blood Moderate (Negative) H 04/13/18 09:20 Urine Nitrite Negative (Negative) 04/13/18 09:20 Urine Bilirubin Negative (Negative) 04/13/18 09:20 Urine Urobilinogen 6.0 mg/dL (<2.0) 04/13/18 09:20 Ur Leukocyte Esterase Negative (Negative) 04/13/18 09:20 Urine WBC 1 /hpf (0-5) 04/13/18 09:20 Urine Bacteria Rare /hpf (None) H 04/13/18 09:20 Stool Occult Blood Positive (Negative) 04/11/18 12:39 Blood Type A Positive 04/15/18 03:36 Blood Type Recheck No 04/15/18 03:36 Antibody Screen NEGATIVE 04/15/18 03:36 Crossmatch See Detail 04/11/18 12:32 Spec Expiration Date 04/18/2018 - 2336 04/15/18 03:36 Microbiology 04/20/18 15:52 Blood Blood Culture - Preliminary No Growth after 48 hours 04/21/18 07:40 Sputum Gram Stain - Preliminary 04/13/18 09:20 Urine,Catheterized Urine Culture - Final Assessment and Plan (1) MDS (myelodysplastic syndrome) Current Visit: Yes Status: Chronic Code(s): D46.9 - MYELODYSPLASTIC SYNDROME , UNSPECIFIED SNOMED Code(s): 110846914 (2) Non-STEMI (non-ST elevated myocardial infarction) Current Visit: Yes Status: Acute Code(s): I21.4 - NON-ST ELEVATION (NSTEMI) MYOCARDIAL INFARCTION SNOMED Code(s): 367686290 (3) Peripheral vascular disease Current Visit: Yes Status: Acute Code(s): I73.9 - PERIPHERAL VASCULAR DISEASE, UNSPECIFIED SNOMED Code(s): 234680245 (4) Gram-negative pneumonia Narrative/Plan: 78-year-old female presents to hospital 9 days prior bout of chest pain and increasing shortness of breath. He has noted he has significant underlying medical conditions that include myelodysplastic syndrome with severe peripheral artery disease. He's had a recent interventions which include the endarterectomy of the right femoral artery and then the further endarterectomy distally in the leg. He had repair of pseudoaneurysm and did have some blood loss and possible retroperitoneal hematoma. He fortunately is doing considerably better in the right limb seems to be doing well without evidence of significant infection at this time he small eschar appears to be healing well. The foot although not normal is adequately perfused. The patient knows developed significant worsening of his shortness of breath and there was concern for pulmonary embolus but CT showed evidence of new pulmonary infiltrates more consistent with pneumonia. 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 The patient does not have significant ALLERGIES consequently antimicrobial therapy of Zosyn be transitioned to intravenous trimethoprim sulfamethoxazole to ensure were covering for the prior isolated gram negatives in his sputum that are modestly resistant to usual treatments. The patient is at risk for these pathogens because of his underlying MDS. There is been a significant increase of his leukocytosis which may correlate well with the pneumonia that is being followed. The site to the right groin does not appear to be infected at this time. Sputum and blood cultures are requested and he shall be monitored. 04/21/2018 the patient is feeling better today. He is denying fevers or chills. His breathing feels better in 48 hours ago. He has minimal cough and no hemoptysis. He is tolerating the current antibiotic therapy of trimethoprim sulfamethoxazole well and denying any acute rash or abdominal symptoms. He does have myelodysplastic syndrome and is having a significant leukocytosis and a reactive thrombocytosis. His anemia appears to be stable at this time, renal function will be monitored. He likely be transitioned to oral Bactrim at the time of his discharge unless current cultures provide different guidance. 04/22/2018 patient does feel better today. He has less short of breath, relates his cough is improved and is not having hemoptysis. He is being treated with trimethoprim sulfamethoxazole based on his prior cultures, new sputum culture is in process which may further guide antibiotic therapy. His hemoglobin has drifted minimally since being on this therapy will be monitored closely. 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 His leukocytosis remains elevated, even from his baseline that appears to be around 14. The underlying infection is likely driving this, but is excessive from the underlying disease state. He is feeling considerably better. When ready we'll transition to oral Bactrim for his discharge if current culture concurs. Current Visit: Yes Status: Acute Code(s): J15.6 - PNEUMONIA DUE TO OTHER GRAM-NEGATIVE BACTERIA SNOMED Code(s): 431319490
--- NOTE | 2018-04-22 22:23 | PN ---
PROGRESS NOTE CHIEF COMPLAINT: Re-evaluation. HISTORY OF PRESENT ILLNESS: This is a 78-year-old gentleman who was admitted to the facility 11 days ago with a subendocardial OR. The patient also had GI bleeding. The patient has underlying history of myeloproliferative disorder. He has had endoscopic camera evaluation and has had no further evidence of bleeding now. The patient, as mentioned above, does have a history of myeloproliferative disorder and has associated anemia. The patient's hemoglobin is down to 6.9 today, but no evidence of any bleeding. The patient also had acute respiratory failure and noted to have suggestion of CHF. The patient's CT scan suggests the possibility of pneumonia as well. The patient has no clear symptoms of that. The patient has been seen by ID and they have him on Zosyn and Bactrim. The patient is basically fairly stable, doing relatively well. REVIEW OF SYSTEMS: NEURO: Denies any headaches, dizziness. PSYCH: No anxiety. CARDIAC: No chest pain, angina, palpitation. RESPIRATORY: No shortness of breath. Minimal cough. GI: No nausea, vomiting. Appetite is good. No abdominal pain. No melena. : No symptoms of dysuria, hematuria. EXTREMITIES: Ischemic pain in the right leg, which is improving. CONSTITUTIONAL: No fever or chills. PHYSICAL EXAMINATION: Pleasant gentleman in no distress. VITAL SIGNS: The patient has been afebrile. Temperature 97.7, pulse 82, respirations 16, blood pressure 141/62. HEENT: Normocephalic. NECK: No JVD. CHEST: Clear to auscultation with occasional rhonchi. CARDIAC: Distant heart sounds S1, S2 with no gallop. Systolic murmur 2/6, left sternal border. ABDOMEN: Soft. No palpable masses. Bowel sounds normal. No organomegaly. Extremities reveal trace edema, right foot. The patient has pedal pulses. The foot is warm now. ASSESSMENT: 1. Acute respiratory failure, improving. 2. 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 3. Paroxysmal atrial fibrillation. 4. Anemia secondary to gastrointestinal bleeding. 5. Peripheral arterial disease, status post surgery. 6. Possible pneumonia. 7. Anemia, multifactorial. PLAN: The patient is stable. Continue present medical regimen. Patient's condition was discussed with the patient. Prognosis guarded. Potential discharge to nursing facility in 48 hours. MMODL / IJN: [id number] /
[2018-04-23] MEDS: oxyCODONE-APAP 5-325MG 1 EACH TAB PO PRN ×4 (00:50→22:53)
[2018-04-23] MEDS: RUXOLITINIB PHOSPHATE PO SCH ×2 (08:09→21:02)
[2018-04-23] MEDS: GABAPENTIN 100 MG CAP PO SCH ×3 (08:10→21:03)
[2018-04-23] MEDS: METOPROLOL TARTRATE 50 MG TAB PO SCH ×2 (08:10→21:02)
[2018-04-23] MEDS: FUROSEMIDE 10 MG/ML 10 ML VIAL IV SCH ×2 (08:10→21:02)
[2018-04-23] MEDS: ISOSORBIDE MONONITRATE ER 15 MG TAB PO SCH (08:10)
[2018-04-23] MEDS: CLOPIDOGREL 75 MG TAB PO SCH (08:10)
[2018-04-23] MEDS: SPIRONOLACTONE 25 MG TAB PO SCH (08:10)
[2018-04-23] MEDS: COLCHICINE 0.6 MG EACH PO SCH (08:11)
[2018-04-23] MEDS: IPRATROPIUM-ALBUTEROL 3 ML NEB INHALATION SCH ×4 (08:12→19:24)
[2018-04-23] MEDS: SULFAMETHOX-TMP 80-16MG/ML 400 MG in DEXTROSE 5% IN WATER 500 ML IVPB SCH ×4 (08:53→21:03)
--- NOTE | 2018-04-23 09:29 | XR ---
EXAMINATION TYPE: XR chest 1V DATE OF EXAM: 04/23/2018 COMPARISON: 04/21/2018 HISTORY: Shortness of breath TECHNIQUE: Single frontal view of the chest is obtained. FINDINGS: Diffuse interstitial pattern with right-sided consolidation and pleural effusion. Pleural- based calcification in the left suggested. Arthropathy of the shoulders. Cardiomegaly, atheroscleroti c change aorta and postoperative changes seen. No pneumothorax. IMPRESSION: Persistent bilateral consolidation and pleural effusion. Interstitial pattern persists C HF favored over pneumonia, correlate clinically.
[2018-04-23 09:45] LABS: Anisocytosis Slight; HCT 24.4 % (39.0-53.0); HGB 7.9 gm/dL (13.0-17.5); Hypochromasia Slight; MCH 29.3 pg (25.0-35.0); MCHC 32.4 g/dL (31.0-37.0); MCV 90.4 fL (80.0-100.0); Mean Platelet Volume 8.8; Poikilocytosis Slight; RDW 19.6 % (11.5-15.5)
[2018-04-23 09:48] LABS: WBC 30.5 k/uL (3.8-10.6)
[2018-04-23 09:49] LABS: Platelet Count 922 k/uL (150-450)
[2018-04-23] MEDS: DOXAZOSIN 2 MG TAB PO SCH (21:02)
[2018-04-23] MEDS: ATORVASTATIN 40 MG TAB PO SCH (21:02)
--- NOTE | 2018-04-23 22:56 | P.PN ---
Subjective Progress Note Date: 04/23/18 Very pleasant 78-year-old male who presents to Hospital from home 9 days ago with progressive weakness and increasing shortness of breath diaphoresis and discomfort within his chest. EMS was called and he was transported to Hospital and the patient related that some supplement rescinded give him some improvement. At admission he was seen by cardiology and medical management was suggested. The patient has a known history of myelodysplastic syndrome as well as severe peripheral arterial disease and underwent interventions including right femoral artery endarterectomy with patch angioplasty. Afterwards he had arthrectomy and angioplasty distally on the right leg. This is allowed improvement the blood flow in marked improvement to the ischemic foot reveals significant swelling and some ulceration. The patient is very pleased leg is doing so much better. The severe pain is improved. Ulceration is improving and drainage has resolved. Patient however has now had significant and profound shortness of breath. He was considerably worse this morning he was on 15 L of oxygen but with some breathing treatments he has now settled in his back down to 6 L of oxygen. He still feels very poorly. However the significant pain he was having after his procedures partly because he developed some hematoma and some superficial clot is improving he is more comfortable. With his profound shortness of breath earlier in his interventions there was concern for the possibility of a pulmonary embolism because CT angiogram was performed, no pulmonary [place] was seen but new extensive infiltration in the right upper lobe as well as some ongoing pleural effusions were seen. With concerns of pneumonia the infectious diseases consultation was requested The patient has received recent treatment with JAKAFI for his myeloproliferative syndrome. 04/21/2018 reveals the patient to be feeling somewhat better today. He is less short of breath. Fevers have improved but he continues to have some ongoing pain to the right foot. The recent difficulties with the severe peripheral vascular disease and ischemia. He is denying any acute new skin lesions. Appetite is adequate, and denies significant sputum production or hemoptysis. 04/22/2018 reveals the patient to be feeling better again today. He is not having fevers. His discomfort of the right groin is improved. The patient did walk a bit today but the pain to his right foot from his recent significant ischemic events to the limb limits his ambulation. Sputum culture has gram- positive cocci we await the final culture. 04/23/2018 patient is feeling somewhat better today. Still has pain to his foot but continues to improve slowly over time. No other new acute complaints. Overall is less short of breath feels better and looks forward to going to rehab. Objective - Vital Signs Vital signs: Vital Signs Temp 97.0 F L 04/23/18 20:00 Pulse 88 04/23/18 20:00 Resp 18 04/23/18 20:00 BP 120/57 04/23/18 20:00 Pulse Ox 93 L 04/23/18 20:00 Intake & Output 04/23/18 04/23/18 04/24/18 06:59 18:59 06:59 Intake Total 956 Output Total 2052 902 1 Balance -2052 54 -1 Weight 70.5 kg Intake: Oral 956 Output: Urine 2049 900 Stool 3 2 1 Other: Voiding Method Urinal Urinal Urinal # Voids 2 - Exam 78-year-old male who apparently is much more comfortable now than earlier in the day, he is much less short of breath HEENT: Anicteric conjunctiva are pink and moist nasal mucosa grossly intact without significant lesions, there is no thrush. No new oral lesions Neck: The neck is supple without significant lymphadenopathy or thyromegaly. Lungs: Symmetrical air entry is noted, there is evidence of course bronchial sounds right posterior zone some crackles are scattered and expiratory wheezes are also scattered throughout both lungs there was no dullness or egophony Heart: Irregular audible S1-S2, no S3 soft S4. There is no significant murmur click or rub, PMI was nondisplaced. Abdomen: Positive bowel sounds soft and nontender without palpable masses or organomegaly. There was no guarding or rebound. Extremities: The upper extremities have excellent pulses they are symmetric, no significant petechiae or telangiectasia. No splinter hemorrhages were noted. The lower extremities do not have significant edema. The left foot is without lesions. The right foot shows evidence of the healing area at the base of the fourth and fifth toes when there is just some minimal dried eschar with no expressible purulence. The site is really not very tender. The limb has only minimal edema which apparently is considerably improved from recent times. Is evidence of distention of his veins in the foot that are easily seen. Neuro: Awake alert oriented to person place and time. There are no acute new gross focal sensory motor deficits. - Labs CBC & Chem 7: 04/23/18 08:56 04/22/18 05:52 Labs: Abnormal Lab Results - Last 24 Hours (Table) 04/23/18 Range/Units 08:56 WBC 30.5 H* (3.8-10.6) k/uL RBC 2.70 L (4.30-5.90) m/uL Hgb 7.9 L (13.0-17.5) gm/dL Hct 24.4 L (39.0-53.0) % RDW 19.6 H (11.5-15.5) % Plt Count 922 H* (150-450) k/uL Microbiology - Last 24 Hours (Table) 04/20/18 15:52 Blood Culture - Preliminary Blood No Growth after 72 hours 04/21/18 07:40 Gram Stain - Final Sputum Sputum Culture - Final Laboratory Results WBC 30.5 k/uL (3.8-10.6) H* 04/23/18 08:56 RBC 2.70 m/uL (4.30-5.90) L 04/23/18 08:56 Hgb 7.9 gm/dL (13.0-17.5) L 04/23/18 08:56 Hct 24.4 % (39.0-53.0) L 04/23/18 08:56 MCV 90.4 fL (80.0-100.0) 04/23/18 08:56 MCH 29.3 pg (25.0-35.0) 04/23/18 08:56 MCHC 32.4 g/dL (31.0-37.0) 04/23/18 08:56 RDW 19.6 % (11.5-15.5) H 04/23/18 08:56 Plt Count 922 k/uL (150-450) H* 04/23/18 08:56 Neutrophils % 82 % 04/16/18 05:17 Neutrophils % (Manual) 69 % 04/20/18 05:56 Band Neutrophils % 10 % 04/20/18 05:56 Lymphocytes % 8 % 04/16/18 05:17 Lymphocytes % (Manual) 5 % 04/20/18 05:56 Monocytes % 4 % 04/16/18 05:17 Monocytes % (Manual) 5 % 04/20/18 05:56 Eosinophils % 1 % 04/16/18 05:17 Eosinophils % (Manual) 1 % 04/20/18 05:56 Basophils % 2 % 04/16/18 05:17 Basophils % (Manual) 1 % 04/19/18 06:07 Metamyelocytes % 6 % 04/20/18 05:56 Myelocytes % 6 % 04/20/18 05:56 Neutrophils # 13.9 k/uL (1.3-7.7) H 04/16/18 05:17 Neutrophils # (Manual) 21.40 k/uL (1.3-7.7) H 04/20/18 05:56 Lymphocytes # 1.4 k/uL (1.0-4.8) 04/16/18 05:17 Lymphocytes # (Manual) 1.36 k/uL (1.0-4.8) 04/20/18 05:56 Monocytes # 0.7 k/uL (0-1.0) 04/16/18 05:17 Monocytes # (Manual) 1.36 k/uL (0-1.0) H 04/20/18 05:56 Eosinophils # 0.2 k/uL (0-0.7) 04/16/18 05:17 Eosinophils # (Manual) 0.27 k/uL (0-0.7) 04/20/18 05:56 Basophils # 0.3 k/uL (0-0.2) H 04/16/18 05:17 Basophils # (Manual) 0.22 k/uL (0-0.2) H 04/19/18 06:07 Metamyelocytes # (Man) 1.63 k/uL (0) H 04/20/18 05:56 Myelocytes # (Manual) 1.63 k/uL (0) H 04/20/18 05:56 Nucleated RBCs 1 /100 WBC (0-0) H 04/20/18 05:56 Manual Slide Review Performed 04/17/18 04:32 Toxic Vacuolation Present 04/12/18 03:37 Large Platelets Present 04/19/18 06:07 Polychromasia Present 04/20/18 05:56 Hypochromasia Slight 04/23/18 08:56 Hypochromasia (manual) Present 04/17/18 04:32 Poikilocytosis Slight 04/23/18 08:56 Poikilocytosis (manual Present 04/17/18 04:32 Basophilic Stippling Present 04/19/18 06:07 Anisocytosis Slight 04/23/18 08:56 Macrocytosis Slight 04/22/18 05:52 Tear Drop Cells Present 04/11/18 18:46 Ovalocytes Present 04/20/18 05:56 Crenated Cell Present 04/20/18 05:56 Fragmented RBCs Present 04/20/18 05:56 PT 12.6 sec (9.0-12.0) H 04/20/18 05:56 INR 1.3 (<1.2) H 04/20/18 05:56 APTT 32.8 sec (22.0-30.0) H 04/11/18 12:32 D-Dimer 1.92 mg/L FEU (<0.60) H 04/20/18 05:56 Sample Site RRAD 04/20/18 07:51 ABG pH 7.43 (7.35-7.45) 04/20/18 07:51 ABG pCO2 33 mmHg (35-45) L 04/20/18 07:51 ABG pO2 183 mmHg (83-108) H 04/20/18 07:51 ABG HCO3 22 mmol/L (21-25) 04/20/18 07:51 ABG Total CO2 23 mmol/L (19-24) 04/20/18 07:51 ABG O2 Saturation 99.9 % (94-97) H 04/20/18 07:51 ABG Base Excess -2.3 mmol/L 04/20/18 07:51 Rudolph Test Yes 04/20/18 07:51 FiO2 100 % 04/20/18 07:51 Sodium 134 mmol/L (137-145) L 04/22/18 05:52 Potassium 4.7 mmol/L (3.5-5.1) 04/22/18 05:52 Chloride 97 mmol/L (98-107) L 04/22/18 05:52 Carbon Dioxide 27 mmol/L (22-30) 04/22/18 05:52 Anion Gap 10 mmol/L 04/22/18 05:52 BUN 19 mg/dL (9-20) 04/22/18 05:52 Creatinine 1.00 mg/dL (0.66-1.25) 04/22/18 05:52 Est GFR (CKD-EPI)AfAm 83 (>60 ml/min/1.73 sqM) 04/22/18 05:52 Est GFR (CKD-EPI)NonAf 72 (>60 ml/min/1.73 sqM) 04/22/18 05:52 Glucose 89 mg/dL (74-99) 04/22/18 05:52 POC Glucose (mg/dL) 122 mg/dL (75-99) H 04/16/18 12:08 POC Glu [employer] Corey Young 04/16/18 12:08 Calcium 8.3 mg/dL (8.4-10.2) L 04/22/18 05:52 Phosphorus 3.7 mg/dL (2.5-4.5) 04/15/18 03:36 Magnesium 2.0 mg/dL (1.6-2.3) 04/15/18 03:36 Total Bilirubin 1.4 mg/dL (0.2-1.3) H 04/20/18 05:56 AST 34 U/L (17-59) 04/20/18 05:56 ALT 41 U/L (21-72) 04/20/18 05:56 Alkaline Phosphatase 215 U/L (38-126) H 04/20/18 05:56 Total Creatine Kinase 59 U/L (55-170) 04/12/18 03:37 CK-MB (CK-2) 7.1 ng/mL (0.0-2.4) H* 04/12/18 03:37 CK-MB (CK-2) Rel Index 12.0 04/12/18 03:37 Troponin I 1.850 ng/mL (0.000-0.034) H* 04/12/18 03:37 NT-Pro-B Natriuret Pep 4860 pg/mL 04/22/18 05:52 Total Protein 5.1 g/dL (6.3-8.2) L 04/20/18 05:56 Albumin 2.9 g/dL (3.5-5.0) L 04/20/18 05:56 Urine Color Yellow 04/13/18 09:20 Urine Appearance Clear (Clear) 04/13/18 09:20 Urine pH 5.5 (5.0-8.0) 04/13/18 09:20 Ur Specific [place] 1.014 (1.001-1.035) 04/13/18 09:20 Urine Protein Negative (Negative) 04/13/18 09:20 Urine Glucose (UA) Negative (Negative) 04/13/18 09:20 Urine Ketones Negative (Negative) 04/13/18 09:20 Urine Blood Moderate (Negative) H 04/13/18 09:20 Urine Nitrite Negative (Negative) 04/13/18 09:20 Urine Bilirubin Negative (Negative) 04/13/18 09:20 Urine Urobilinogen 6.0 mg/dL (<2.0) 04/13/18 09:20 Ur Leukocyte Esterase Negative (Negative) 04/13/18 09:20 Urine WBC 1 /hpf (0-5) 04/13/18 09:20 Urine Bacteria Rare /hpf (None) H 04/13/18 09:20 Stool Occult Blood Positive (Negative) 04/11/18 12:39 Blood Type A Positive 04/15/18 03:36 Blood Type Recheck No 04/15/18 03:36 Antibody Screen NEGATIVE 04/15/18 03:36 Crossmatch See Detail 04/11/18 12:32 Spec Expiration Date 04/18/2018 - 2336 04/15/18 03:36 Microbiology 04/20/18 15:52 Blood Blood Culture - Preliminary No Growth after 72 hours 04/21/18 07:40 Sputum Gram Stain - Final 04/21/18 07:40 Sputum Sputum Culture - Final 04/13/18 09:20 Urine,Catheterized Urine Culture - Final Assessment and Plan (1) MDS (myelodysplastic syndrome) Current Visit: Yes Status: Chronic Code(s): D46.9 - MYELODYSPLASTIC SYNDROME , UNSPECIFIED SNOMED Code(s): 105763568 (2) Non-STEMI (non-ST elevated myocardial infarction) Current Visit: Yes Status: Acute Code(s): I21.4 - NON-ST ELEVATION (NSTEMI) MYOCARDIAL INFARCTION SNOMED Code(s): 155656054 (3) Peripheral vascular disease Current Visit: Yes Status: Acute Code(s): I73.9 - PERIPHERAL VASCULAR DISEASE, UNSPECIFIED SNOMED Code(s): 952258183 (4) Gram-negative pneumonia Narrative/Plan: 78-year-old female presents to hospital 9 days prior bout of chest pain and increasing shortness of breath. He has noted he has significant underlying medical conditions that include myelodysplastic syndrome with severe peripheral artery disease. He's had a recent interventions which include the endarterectomy of the right femoral artery and then the further endarterectomy distally in the leg. He had repair of pseudoaneurysm and did have some blood loss and possible retroperitoneal hematoma. He fortunately is doing considerably better in the right limb seems to be doing well without evidence of significant infection at this time he small eschar appears to be healing well. The foot although not normal is adequately perfused. The patient knows developed significant worsening of his shortness of breath and there was concern for pulmonary embolus but CT showed evidence of new pulmonary infiltrates more consistent with pneumonia. 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 The patient does not have significant ALLERGIES consequently antimicrobial therapy of Zosyn be transitioned to intravenous trimethoprim sulfamethoxazole to ensure were covering for the prior isolated gram negatives in his sputum that are modestly resistant to usual treatments. The patient is at risk for these pathogens because of his underlying MDS. There is been a significant increase of his leukocytosis which may correlate well with the pneumonia that is being followed. The site to the right groin does not appear to be infected at this time. Sputum and blood cultures are requested and he shall be monitored. 04/21/2018 the patient is feeling better today. He is denying fevers or chills. His breathing feels better in 48 hours ago. He has minimal cough and no hemoptysis. He is tolerating the current antibiotic therapy of trimethoprim sulfamethoxazole well and denying any acute rash or abdominal symptoms. He does have myelodysplastic syndrome and is having a significant leukocytosis and a reactive thrombocytosis. His anemia appears to be stable at this time, renal function will be monitored. He likely be transitioned to oral Bactrim at the time of his discharge unless current cultures provide different guidance. 04/22/2018 patient does feel better today. He has less short of breath, relates his cough is improved and is not having hemoptysis. He is being treated with trimethoprim sulfamethoxazole based on his prior cultures, new sputum culture is in process which may further guide antibiotic therapy. His hemoglobin has drifted minimally since being on this therapy will be monitored closely. 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 His leukocytosis remains elevated, even from his baseline that appears to be around 14. The underlying infection is likely driving this, but is excessive from the underlying disease state. He is feeling considerably better. When ready we'll transition to oral Bactrim for his discharge if current culture concurs. 04/23/2018 patient continues to have improvement. He is not having hemoptysis. His shortness of breath is improved. Energy levels improved. His hemoglobin increased but continues to have some leukocytosis that is varying. However does have underlying myeloproliferative disorder and appears to be directly related to these events. As a patient starts to improve he will be transitioned to oral trimethoprim sulfamethoxazole for rehab. There however is now been some significant concerns that his oral chemotherapy regimen may not be available while he is at rehab. He states that he cannot have his medication he will simply not going to rehab. He does have a normal creatinine and one double strength trimethoprim sulfamethoxazole twice a day would be planned for 10 days at discharge. Current Visit: Yes Status: Acute Code(s): J15.6 - PNEUMONIA DUE TO OTHER GRAM-NEGATIVE BACTERIA SNOMED Code(s): 884577320
--- NOTE | 2018-04-23 23:30 | PN ---
PROGRESS NOTE ATTENDING PHYSICIAN: Dr. Belia Franklin. CHIEF COMPLAINT: Re-evaluation. HISTORY OF PRESENT ILLNESS: This is a 78-year-old gentleman who was admitted to the hospital with GI bleeding, atrial fib, rapid ventricular rate and subendocardial DC. The patient has been doing well. He recently has developed pneumonia, congestive cardiac failure, which are improving. REVIEW OF SYSTEMS: NEURO: Denies any headaches, dizziness. PSYCH: No anxiety. CARDIAC: No chest pain, angina, palpitation. RESPIRATORY: Minimal cough. No hemoptysis. GI: No nausea, vomiting, abdominal pain, diarrhea. : No symptoms of dysuria, hematuria. EXTREMITIES: No pain. CONSTITUTIONAL: No fever, chills. PHYSICAL EXAMINATION: Pleasant gentleman in no distress. Vitals reveal temperature of 97.6, pulse 91, respirations 16, blood pressure 124/59. HEENT: Normocephalic. NECK: No JVD. CHEST: Occasional rhonchi at the base. CARDIAC: Distant heart sounds. S1, S2 with no gallop. Systolic murmur 2/6 left sternal border. Abdomen is soft. Bowel sounds present. Extremities reveal no edema. Ischemic right foot with improvement. Neurologically awake, alert, oriented with well- coordinated movements. LABORATORY ASSESSMENT: CBC which revealed white count 30.5, hemoglobin 7.9, platelet count 922. Chest x-ray: Persistent CHF changes and consolidative changes. Sputum culture: Respiratory alfred. Blood cultures negative. ASSESSMENT: 1. Anemia secondary to acute blood loss and myeloproliferative disorder. 2. Thrombocytosis and leukocytosis secondary to myeloproliferative disorder. 3. Status post subendocardial myocardial infarction. 4. 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 5. Paroxysmal atrial flutter/fibrillation. 6. Peripheral arterial disease. 7. Possible pneumonia. PLAN: The patient at present is stable. Continue present medical regimen. Patient's condition discussed with the patient. Prognosis guarded. Potential transfer to a nursing facility for rehab in the next day or 2. MMODL / IJN: [id number] /
[2018-04-24] MEDS: oxyCODONE-APAP 5-325MG 1 EACH TAB PO PRN ×2 (04:48→13:22)
[2018-04-24 06:38] LABS: Albumin 2.9 g/dL (3.5-5.0); Calcium 8.4 mg/dL (8.4-10.2); Potassium 5.1 mmol/L (3.5-5.1); Total Bilirubin 0.6 mg/dL (0.2-1.3)
[2018-04-24] MEDS: IPRATROPIUM-ALBUTEROL 3 ML NEB INHALATION SCH ×3 (08:15→15:17)
--- NOTE | 2018-04-24 08:26 | P.DS ---
Providers Date of admission: 04/11/18 14:18 Attending physician: Leon Franklin Consults: 04/11/18 14:17 Consult Physician Urgent Consulting Provider: [facility] Consult Reason/Comments: Non-STEMI Do you want consulting provider notified?: Already Contacted Consult Physician Urgent Consulting Provider: Bernarda King Consult Reason/Comments: Critical care management Do you want consulting provider notified?: Yes 04/20/18 08:15 Consult Physician Routine Consulting Provider: Danish Jenkins Consult Reason/Comments: right lung pneumonia Do you want consulting provider notified?: Yes Primary care physician: Leon Franklin [facility] Course: This 78-year-old gentleman was admitted to the hospital with a subendocardial [place] with an acute chest pain. He hasn't known history of coronary artery disease with a previous CABG. Patient also noted to have significant GI bleeding. He has underlying history of chronic esophagitis however this was not found with the source. It was an upper GI bleeding. The patient had been on aspirin Xarelto and Plavix. He has recently undergone revascularization right leg. He also had a retroperitoneal bleed at the same time post surgery. There was no evidence of retroperitoneal bleeding on further evaluation. The patient also underwent an EGD and endoscopic camera which was only partially successful. No gross abnormalities noted. The patient is on protonix. He is on Plavix and aspirin has been added; tolerating it well. The patient also has underlying history of myeloproliferative disorder with thrombocytosis and leukocytosis. The patient did develop significant shortness of breath and was felt to have congestive cardiac failure and possible underlying pneumonia. Sputum culture is only normal respiratory alfred. He was placed on Bactrim and will continue. Patient has congestive cardiac failure secondary to systolic dysfunction on medical therapy. Patient's general condition is improved. He has some pain in his right leg which is improving with increasing dosages of Neurontin. He has both ischemic and reticulocyte pain in the right leg. Condition is improved significantly. Prognosis remains guarded. He has had episodes of atrial flutter fibrillation and SVT which is being controlled with metoprolol. No plan on Xarelto due to the recent significant GI bleeding. Final diagnosis to include 1. Acute subendocardial [place] 2. GI bleeding source unidentified 3. Chronic esophagitis with dysplasia 4. Anemia secondary to acute blood loss in myeloproliferative disorder 5. Myeloproliferative disorder 6. Atrial fib flutter and SVT 7. Acute respiratory failure 8. Pneumonia 9. Acute congestive cardiac failure secondary to systolic and diastolic dysfunction 10. History of CABG 11. Recent retroperitoneal hematoma 12. Peripheral arterial disease status post surgery Plan - Discharge Summary Discharge Rx Participant: Yes New Discharge Prescriptions: New Clopidogrel [Plavix] 75 mg PO DAILY tab Furosemide [Lasix] 60 mg PO BID #60 tab Gabapentin [Neurontin] 200 mg PO TID cap Ipratropium-Albuterol Nebulize [Duoneb 0.5 mg-3 mg/3 ml Soln] 3 ml INHALATION RT-QID ampul.neb Ipratropium-Albuterol Nebulize [Duoneb 0.5 mg-3 mg/3 ml Soln] 3 ml INHALATION RT-Q2H PRN ampul.neb PRN Reason: Shortness Of Breath Or Wheezing Isosorbide Mononitrate ER [Imdur] 15 mg PO DAILY dose Nitroglycerin Sl Tabs [Nitrostat] 0.4 mg SUBLINGUAL ONCE PRN tab PRN Reason: Chest Pain Pantoprazole Sodium [Protonix] 40 mg PO DAILY #30 tablet. Sulfamethox-Tmp 800-160Mg [Bactrim DS 800-160 mg] 1 tab PO Q12HR #14 tab Continue Terazosin [Hytrin] 5 mg PO HS Metoprolol Tartrate [Lopressor] 50 mg PO BID Atorvastatin [Lipitor] 40 mg PO HS Enalapril [Vasotec] 5 mg PO DAILY #30 tablet Spironolactone [Aldactone] 25 mg PO DAILY Ruxolitinib Phosphate [Jakafi] 25 mg PO BID oxyCODONE HCL/ACETAMINOPHEN [Endocet 5-325 mg] 1 tab PO Q6HR PRN PRN Reason: Pain Aspirin 81 mg PO DAILY #30 chew Clopidogrel [Plavix] 75 mg PO DAILY #30 tab Discontinued Pantoprazole [Protonix] 40 mg PO BID Furosemide [Lasix] 40 mg PO BID #0 Rivaroxaban [Xarelto] 15 mg PO W/SUPPER #30 tab Discharge Medication List Atorvastatin [Lipitor] 40 mg PO HS 09/27/14 [History] Metoprolol Tartrate [Lopressor] 50 mg PO BID 09/27/14 [History] Terazosin [Hytrin] 5 mg PO HS 09/27/14 [History] Enalapril [Vasotec] 5 mg PO DAILY #30 tablet 10/12/14 [Rx] Spironolactone [Aldactone] 25 mg PO DAILY 11/12/17 [History] Ruxolitinib Phosphate [Jakafi] 25 mg PO BID 02/07/18 [History] oxyCODONE HCL/ACETAMINOPHEN [Endocet 5-325 mg] 1 tab PO Q6HR PRN 03/05/18 [ History] Aspirin 81 mg PO DAILY #30 chew 04/07/18 [Rx] Clopidogrel [Plavix] 75 mg PO DAILY #30 tab 04/07/18 [Rx] Clopidogrel [Plavix] 75 mg PO DAILY tab 04/24/18 [Rx] Furosemide [Lasix] 60 mg PO BID #60 tab 04/24/18 [Rx] Gabapentin [Neurontin] 200 mg PO TID cap 04/24/18 [Rx] Ipratropium-Albuterol Nebulize [Duoneb 0.5 mg-3 mg/3 ml Soln] 3 ml INHALATION RT -Q2H PRN ampul.neb 04/24/18 [Rx] Ipratropium-Albuterol Nebulize [Duoneb 0.5 mg-3 mg/3 ml Soln] 3 ml INHALATION RT -QID ampul.neb 04/24/18 [Rx] Isosorbide Mononitrate ER [Imdur] 15 mg PO DAILY dose 04/24/18 [Rx] Nitroglycerin Sl Tabs [Nitrostat] 0.4 mg SUBLINGUAL ONCE PRN tab 04/24/18 [Rx] Pantoprazole Sodium [Protonix] 40 mg PO DAILY #30 tablet. 04/24/18 [Rx] Sulfamethox-Tmp 800-160Mg [Bactrim DS 800-160 mg] 1 tab PO Q12HR #14 tab [Rx] Follow up Appointment(s)/Referral(s): Leon Franklin MD [Primary Care Provider] - 1-2 days Leslie Kwan MD [STAFF PHYSICIAN] - 06/04/18 3:45 pm Activity/Diet/Wound Care/Special Instructions: ECF Discharge Disposition: TRANSFER TO SNF/ECF
[2018-04-24] MEDS: CLOPIDOGREL 75 MG TAB PO SCH (10:22)
[2018-04-24] MEDS: GABAPENTIN 100 MG CAP PO SCH (10:22)
[2018-04-24] MEDS: SPIRONOLACTONE 25 MG TAB PO SCH (10:22)
[2018-04-24] MEDS: COLCHICINE 0.6 MG EACH PO SCH (10:22)
[2018-04-24] MEDS: SULFAMETHOX-TMP 80-16MG/ML 400 MG in DEXTROSE 5% IN WATER 500 ML IVPB SCH ×2 (10:23)
[2018-04-24] MEDS: RUXOLITINIB PHOSPHATE PO SCH (10:23)
[2018-04-24] MEDS ORDERED: METOPROLOL TARTRATE 25 MG TAB PO SCH (10:30)
[2018-04-24] MEDS: FUROSEMIDE 10 MG/ML 10 ML VIAL IV SCH (10:32)
[2018-04-24] MEDS: METOPROLOL TARTRATE 50 MG TAB PO SCH (10:33)
[2018-04-24] MEDS: ISOSORBIDE MONONITRATE ER 15 MG TAB PO SCH (10:33)
[2018-04-24 10:41] VITALS: BMI 23.8
[2018-04-24 15:04] VITALS: BP 133/61; PULSE 89; RESP 18; TEMP 97.2
[2018-04-24] MEDS ORDERED: FUROSEMIDE 20 MG TAB PO SCH (16:00)
--- NOTE | 2018-04-24 23:38 | P.PN ---
Subjective Progress Note Date: 04/24/18 Very pleasant 78-year-old male who presents to Hospital from home 9 days ago with progressive weakness and increasing shortness of breath diaphoresis and discomfort within his chest. EMS was called and he was transported to Hospital and the patient related that some supplement rescinded give him some improvement. At admission he was seen by cardiology and medical management was suggested. The patient has a known history of myelodysplastic syndrome as well as severe peripheral arterial disease and underwent interventions including right femoral artery endarterectomy with patch angioplasty. Afterwards he had arthrectomy and angioplasty distally on the right leg. This is allowed improvement the blood flow in marked improvement to the ischemic foot reveals significant swelling and some ulceration. The patient is very pleased leg is doing so much better. The severe pain is improved. Ulceration is improving and drainage has resolved. Patient however has now had significant and profound shortness of breath. He was considerably worse this morning he was on 15 L of oxygen but with some breathing treatments he has now settled in his back down to 6 L of oxygen. He still feels very poorly. However the significant pain he was having after his procedures partly because he developed some hematoma and some superficial clot is improving he is more comfortable. With his profound shortness of breath earlier in his interventions there was concern for the possibility of a pulmonary embolism because CT angiogram was performed, no pulmonary [place] was seen but new extensive infiltration in the right upper lobe as well as some ongoing pleural effusions were seen. With concerns of pneumonia the infectious diseases consultation was requested The patient has received recent treatment with JAKAFI for his myeloproliferative syndrome. 04/21/2018 reveals the patient to be feeling somewhat better today. He is less short of breath. Fevers have improved but he continues to have some ongoing pain to the right foot. The recent difficulties with the severe peripheral vascular disease and ischemia. He is denying any acute new skin lesions. Appetite is adequate, and denies significant sputum production or hemoptysis. 04/22/2018 reveals the patient to be feeling better again today. He is not having fevers. His discomfort of the right groin is improved. The patient did walk a bit today but the pain to his right foot from his recent significant ischemic events to the limb limits his ambulation. Sputum culture has gram- positive cocci we await the final culture. 04/23/2018 patient is feeling somewhat better today. Still has pain to his foot but continues to improve slowly over time. No other new acute complaints. Overall is less short of breath feels better and looks forward to going to rehab. 04/24/2018 the patient has further improvement. He is much less short of breath than he was. He is up and around and playing without oxygen therapy tolerating it well. Other than some pain to his foot when ambulating is doing quite well. The patient was given ago to get some rehab however there without let him have his chemotherapy agent while he is there. As waistline going to home with home care and physical therapy at home. Objective - Vital Signs Vital signs: Vital Signs Temp 97.2 F L 04/24/18 12:00 Pulse 89 04/24/18 12:00 Resp 18 04/24/18 12:00 BP 133/61 04/24/18 12:00 Pulse Ox 98 04/24/18 12:00 Intake & Output 04/24/18 04/24/18 04/25/18 06:59 18:59 06:59 Intake Total 250 980 Output Total 801 Balance -551 980 Weight 69.1 kg 69.1 kg Intake: Intake, IV Titration 250 500 Amount Sulfamethox-Tmp 80-16Mg/ 250 500 ml 400 mg In Dextrose 5% in Water 500 ml @ 250 mls /hr IVPB Q12HR [facility] Rx#: [id number] Oral 480 Output: Urine 800 Stool 1 Other: Voiding Method Urinal # Voids 1 - Exam 78-year-old male who apparently is much more comfortable now than earlier in the day, he is much less short of breath HEENT: Anicteric conjunctiva are pink and moist nasal mucosa grossly intact without significant lesions, there is no thrush. No new oral lesions Neck: The neck is supple without significant lymphadenopathy or thyromegaly. Lungs: Symmetrical air entry is noted, there is evidence of course bronchial sounds right posterior zone some crackles are scattered and expiratory wheezes are also scattered throughout both lungs there was no dullness or egophony Heart: Irregular audible S1-S2, no S3 soft S4. There is no significant murmur click or rub, PMI was nondisplaced. Abdomen: Positive bowel sounds soft and nontender without palpable masses or organomegaly. There was no guarding or rebound. Extremities: The upper extremities have excellent pulses they are symmetric, no significant petechiae or telangiectasia. No splinter hemorrhages were noted. The lower extremities do not have significant edema. The left foot is without lesions. The right foot shows evidence of the healing area at the base of the fourth and fifth toes when there is just some minimal dried eschar with no expressible purulence. The site is really not very tender. The limb has only minimal edema which apparently is considerably improved from recent times. Is evidence of distention of his veins in the foot that are easily seen. Neuro: Awake alert oriented to person place and time. There are no acute new gross focal sensory motor deficits. - Labs CBC & Chem 7: 04/23/18 08:56 04/24/18 05:59 Labs: Abnormal Lab Results - Last 24 Hours (Table) 04/24/18 Range/Units 05:59 Sodium 132 L (137-145) mmol/L Chloride 97 L (98-107) mmol/L Alkaline Phosphatase 165 H (38-126) U/L Total Protein 5.0 L (6.3-8.2) g/dL Albumin 2.9 L (3.5-5.0) g/dL Microbiology - Last 24 Hours (Table) 04/20/18 15:52 Blood Culture - Preliminary Blood No Growth after 96 hours Laboratory Results WBC 30.5 k/uL (3.8-10.6) H* 04/23/18 08:56 RBC 2.70 m/uL (4.30-5.90) L 04/23/18 08:56 Hgb 7.9 gm/dL (13.0-17.5) L 04/23/18 08:56 Hct 24.4 % (39.0-53.0) L 04/23/18 08:56 MCV 90.4 fL (80.0-100.0) 04/23/18 08:56 MCH 29.3 pg (25.0-35.0) 04/23/18 08:56 MCHC 32.4 g/dL (31.0-37.0) 04/23/18 08:56 RDW 19.6 % (11.5-15.5) H 04/23/18 08:56 Plt Count 922 k/uL (150-450) H* 04/23/18 08:56 Neutrophils % 82 % 04/16/18 05:17 Neutrophils % (Manual) 69 % 04/20/18 05:56 Band Neutrophils % 10 % 04/20/18 05:56 Lymphocytes % 8 % 04/16/18 05:17 Lymphocytes % (Manual) 5 % 04/20/18 05:56 Monocytes % 4 % 04/16/18 05:17 Monocytes % (Manual) 5 % 04/20/18 05:56 Eosinophils % 1 % 04/16/18 05:17 Eosinophils % (Manual) 1 % 04/20/18 05:56 Basophils % 2 % 04/16/18 05:17 Basophils % (Manual) 1 % 04/19/18 06:07 Metamyelocytes % 6 % 04/20/18 05:56 Myelocytes % 6 % 04/20/18 05:56 Neutrophils # 13.9 k/uL (1.3-7.7) H 04/16/18 05:17 Neutrophils # (Manual) 21.40 k/uL (1.3-7.7) H 04/20/18 05:56 Lymphocytes # 1.4 k/uL (1.0-4.8) 04/16/18 05:17 Lymphocytes # (Manual) 1.36 k/uL (1.0-4.8) 04/20/18 05:56 Monocytes # 0.7 k/uL (0-1.0) 04/16/18 05:17 Monocytes # (Manual) 1.36 k/uL (0-1.0) H 04/20/18 05:56 Eosinophils # 0.2 k/uL (0-0.7) 04/16/18 05:17 Eosinophils # (Manual) 0.27 k/uL (0-0.7) 04/20/18 05:56 Basophils # 0.3 k/uL (0-0.2) H 04/16/18 05:17 Basophils # (Manual) 0.22 k/uL (0-0.2) H 04/19/18 06:07 Metamyelocytes # (Man) 1.63 k/uL (0) H 04/20/18 05:56 Myelocytes # (Manual) 1.63 k/uL (0) H 04/20/18 05:56 Nucleated RBCs 1 /100 WBC (0-0) H 04/20/18 05:56 Manual Slide Review Performed 04/17/18 04:32 Toxic Vacuolation Present 04/12/18 03:37 Large Platelets Present 04/19/18 06:07 Polychromasia Present 04/20/18 05:56 Hypochromasia Slight 04/23/18 08:56 Hypochromasia (manual) Present 04/17/18 04:32 Poikilocytosis Slight 04/23/18 08:56 Poikilocytosis (manual Present 04/17/18 04:32 Basophilic Stippling Present 04/19/18 06:07 Anisocytosis Slight 04/23/18 08:56 Macrocytosis Slight 04/22/18 05:52 Tear Drop Cells Present 04/11/18 18:46 Ovalocytes Present 04/20/18 05:56 Crenated Cell Present 04/20/18 05:56 Fragmented RBCs Present 04/20/18 05:56 PT 12.6 sec (9.0-12.0) H 04/20/18 05:56 INR 1.3 (<1.2) H 04/20/18 05:56 APTT 32.8 sec (22.0-30.0) H 04/11/18 12:32 D-Dimer 1.92 mg/L FEU (<0.60) H 04/20/18 05:56 Sample Site RRAD 04/20/18 07:51 ABG pH 7.43 (7.35-7.45) 04/20/18 07:51 ABG pCO2 33 mmHg (35-45) L 04/20/18 07:51 ABG pO2 183 mmHg (83-108) H 04/20/18 07:51 ABG HCO3 22 mmol/L (21-25) 04/20/18 07:51 ABG Total CO2 23 mmol/L (19-24) 04/20/18 07:51 ABG O2 Saturation 99.9 % (94-97) H 04/20/18 07:51 ABG Base Excess -2.3 mmol/L 04/20/18 07:51 Rudolph Test Yes 04/20/18 07:51 FiO2 100 % 04/20/18 07:51 Sodium 132 mmol/L (137-145) L 04/24/18 05:59 Potassium 5.1 mmol/L (3.5-5.1) 04/24/18 05:59 Chloride 97 mmol/L (98-107) L 04/24/18 05:59 Carbon Dioxide 27 mmol/L (22-30) 04/24/18 05:59 Anion Gap 8 mmol/L 04/24/18 05:59 BUN 20 mg/dL (9-20) 04/24/18 05:59 Creatinine 1.19 mg/dL (0.66-1.25) 04/24/18 05:59 Est GFR (CKD-EPI)AfAm 67 (>60 ml/min/1.73 sqM) 04/24/18 05:59 Est GFR (CKD-EPI)NonAf 58 (>60 ml/min/1.73 sqM) 04/24/18 05:59 Glucose 88 mg/dL (74-99) 04/24/18 05:59 POC Glucose (mg/dL) 122 mg/dL (75-99) H 04/16/18 12:08 POC Glu [employer]ing Machine Operator ID Corey Vo 04/16/18 12:08 Calcium 8.4 mg/dL (8.4-10.2) 04/24/18 05:59 Phosphorus 3.7 mg/dL (2.5-4.5) 04/15/18 03:36 Magnesium 2.0 mg/dL (1.6-2.3) 04/15/18 03:36 Total Bilirubin 0.6 mg/dL (0.2-1.3) 04/24/18 05:59 AST 40 U/L (17-59) 04/24/18 05:59 ALT 45 U/L (21-72) 04/24/18 05:59 Alkaline Phosphatase 165 U/L (38-126) H 04/24/18 05:59 Total Creatine Kinase 59 U/L (55-170) 04/12/18 03:37 CK-MB (CK-2) 7.1 ng/mL (0.0-2.4) H* 04/12/18 03:37 CK-MB (CK-2) Rel Index 12.0 04/12/18 03:37 Troponin I 1.850 ng/mL (0.000-0.034) H* 04/12/18 03:37 NT-Pro-B Natriuret Pep 4860 pg/mL 04/22/18 05:52 Total Protein 5.0 g/dL (6.3-8.2) L 04/24/18 05:59 Albumin 2.9 g/dL (3.5-5.0) L 04/24/18 05:59 Urine Color Yellow 04/13/18 09:20 Urine Appearance Clear (Clear) 04/13/18 09:20 Urine pH 5.5 (5.0-8.0) 04/13/18 09:20 Ur Specific [place] 1.014 (1.001-1.035) 04/13/18 09:20 Urine Protein Negative (Negative) 04/13/18 09:20 Urine Glucose (UA) Negative (Negative) 04/13/18 09:20 Urine Ketones Negative (Negative) 04/13/18 09:20 Urine Blood Moderate (Negative) H 04/13/18 09:20 Urine Nitrite Negative (Negative) 04/13/18 09:20 Urine Bilirubin Negative (Negative) 04/13/18 09:20 Urine Urobilinogen 6.0 mg/dL (<2.0) 04/13/18 09:20 Ur Leukocyte Esterase Negative (Negative) 04/13/18 09:20 Urine WBC 1 /hpf (0-5) 04/13/18 09:20 Urine Bacteria Rare /hpf (None) H 04/13/18 09:20 Stool Occult Blood Positive (Negative) 04/11/18 12:39 Blood Type A Positive 04/15/18 03:36 Blood Type Recheck No 04/15/18 03:36 Antibody Screen NEGATIVE 04/15/18 03:36 Crossmatch See Detail 04/11/18 12:32 Spec Expiration Date 04/18/2018 - 2336 04/15/18 03:36 Microbiology 04/20/18 15:52 Blood Blood Culture - Preliminary No Growth after 96 hours 04/21/18 07:40 Sputum Gram Stain - Final 04/21/18 07:40 Sputum Sputum Culture - Final 04/13/18 09:20 Urine,Catheterized Urine Culture - Final Assessment and Plan (1) MDS (myelodysplastic syndrome) Status: Chronic Code(s): D46.9 - MYELODYSPLASTIC SYNDROME, UNSPECIFIED SNOMED Code(s): 017837715 (2) Non-STEMI (non-ST elevated myocardial infarction) Status: Acute Code(s): I21.4 - NON-ST ELEVATION (NSTEMI) MYOCARDIAL INFARCTION SNOMED Code(s): 954714429 (3) Peripheral vascular disease Status: Acute Code(s): I73.9 - PERIPHERAL VASCULAR DISEASE, UNSPECIFIED SNOMED Code(s): 638726679 (4) Gram-negative pneumonia Narrative/Plan: 78-year-old female presents to hospital 9 days prior bout of chest pain and increasing shortness of breath. He has noted he has significant underlying medical conditions that include myelodysplastic syndrome with severe peripheral artery disease. He's had a recent interventions which include the endarterectomy of the right femoral artery and then the further endarterectomy distally in the leg. He had repair of pseudoaneurysm and did have some blood loss and possible retroperitoneal hematoma. He fortunately is doing considerably better in the right limb seems to be doing well without evidence of significant infection at this time he small eschar appears to be healing well. The foot although not normal is adequately perfused. The patient knows developed significant worsening of his shortness of breath and there was concern for pulmonary embolus but CT showed evidence of new pulmonary infiltrates more consistent with pneumonia. 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 The patient does not have significant ALLERGIES consequently antimicrobial therapy of Zosyn be transitioned to intravenous trimethoprim sulfamethoxazole to ensure were covering for the prior isolated gram negatives in his sputum that are modestly resistant to usual treatments. The patient is at risk for these pathogens because of his underlying MDS. There is been a significant increase of his leukocytosis which may correlate well with the pneumonia that is being followed. The site to the right groin does not appear to be infected at this time. Sputum and blood cultures are requested and he shall be monitored. 04/21/2018 the patient is feeling better today. He is denying fevers or chills. His breathing feels better in 48 hours ago. He has minimal cough and no hemoptysis. He is tolerating the current antibiotic therapy of trimethoprim sulfamethoxazole well and denying any acute rash or abdominal symptoms. He does have myelodysplastic syndrome and is having a significant leukocytosis and a reactive thrombocytosis. His anemia appears to be stable at this time, renal function will be monitored. He likely be transitioned to oral Bactrim at the time of his discharge unless current cultures provide different guidance. 04/22/2018 patient does feel better today. He has less short of breath, relates his cough is improved and is not having hemoptysis. He is being treated with trimethoprim sulfamethoxazole based on his prior cultures, new sputum culture is in process which may further guide antibiotic therapy. His hemoglobin has drifted minimally since being on this therapy will be monitored closely. 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 His leukocytosis remains elevated, even from his baseline that appears to be around 14. The underlying infection is likely driving this, but is excessive from the underlying disease state. He is feeling considerably better. When ready we'll transition to oral Bactrim for his discharge if current culture concurs. 04/23/2018 patient continues to have improvement. He is not having hemoptysis. His shortness of breath is improved. Energy levels improved. His hemoglobin increased but continues to have some leukocytosis that is varying. However does have underlying myeloproliferative disorder and appears to be directly related to these events. As a patient starts to improve he will be transitioned to oral trimethoprim sulfamethoxazole for rehab. There however is now been some significant concerns that his oral chemotherapy regimen may not be available while he is at rehab. He states that he cannot have his medication he will simply not going to rehab. He does have a normal creatinine and one double strength trimethoprim sulfamethoxazole twice a day would be planned for 10 days at discharge. 04/24/2018 reveals the patient to have further improvement. His shortness of breath is generally resolved. Strength and energy level are improving and is able to get up and ambulate in the [place] with a walker with much improved foot pain and improved stamina. He was really go to rehab to complete some therapy however he cannot have his chemotherapy agent there that he has at home and consult he chooses not to go to rehab. He will go to the home setting with the care of his , the visiting nurse and the home physical therapy for now. He will follow with his vascular surgeon in over they can device a specialty Scheuer boot to be worn in the right foot to allow him to ambulate more readily. For the multifocal pneumonia he is responded well to current antibiotic therapy which was trimethoprim sulfamethoxazole. This would transition to oral therapy one double strength tablet twice per day for 10 days. He can follow up with infectious disease in the office if there is the need. Status: Acute Code(s): J15.6 - PNEUMONIA DUE TO OTHER GRAM-NEGATIVE BACTERIA SNOMED Code(s): 807040810
== END 2018-04-24 14:57 | disposition home health service (06) | DRG 280 ==
LOC: EC 12:29 → 6ICU 14:18 → 6SEL 04-17 21:39
PROVIDERS: ADMIT Internal Medicine; ATTEND Internal Medicine
PROC: 30233N1 Transfusion of Nonautologous Red Blood Cells into Peripheral Vein, Percutaneous Approach (ICD-10-PCS; principal; 2018-04-11)
PROC: 0DC58ZZ Extirpation of Matter from Esophagus, Via Natural or Artificial Opening Endoscopic (ICD-10-PCS; 2018-04-16)
PROC: 0DJ08ZZ Inspection of Upper Intestinal Tract, Via Natural or Artificial Opening Endoscopic (ICD-10-PCS; 2018-04-16)
DX: I21.4 Non-ST elevation (NSTEMI) myocardial infarction (principal); J15.6 Pneumonia due to other Gram-negative bacteria; J96.00 Acute respiratory failure, unspecified whether with hypoxia or hypercapnia; I50.41 Acute combined systolic (congestive) and diastolic (congestive) heart failure; D62 Acute posthemorrhagic anemia; I42.0 Dilated cardiomyopathy; I47.1 Supraventricular tachycardia; I48.92 Unspecified atrial flutter; J44.0 Chronic obstructive pulmonary disease with (acute) lower respiratory infection; K92.2 Gastrointestinal hemorrhage, unspecified; I70.263 Atherosclerosis of native arteries of extremities with gangrene, bilateral legs; D46.9 Myelodysplastic syndrome, unspecified; D63.8 Anemia in other chronic diseases classified elsewhere; E78.5 Hyperlipidemia, unspecified; I11.0 Hypertensive heart disease with heart failure; I25.10 Atherosclerotic heart disease of native coronary artery without angina pectoris; I25.5 Ischemic cardiomyopathy; I27.29 Other secondary pulmonary hypertension; I27.81 Cor pulmonale (chronic); I48.2 Chronic atrial fibrillation; K21.0 Gastro-esophageal reflux disease with esophagitis; K22.2 Esophageal obstruction; K22.719 Barrett's esophagus with dysplasia, unspecified; K44.9 Diaphragmatic hernia without obstruction or gangrene; N40.0 Benign prostatic hyperplasia without lower urinary tract symptoms; Z79.01 Long term (current) use of anticoagulants; Z79.02 Long term (current) use of antithrombotics/antiplatelets; Z79.82 Long term (current) use of aspirin; Z79.899 Other long term (current) drug therapy; Z82.49 Family history of ischemic heart disease and other diseases of the circulatory system; Z87.891 Personal history of nicotine dependence; Z95.1 Presence of aortocoronary bypass graft
CPT/HCPCS: 36415; 36600; 43235; 43247; 71045; 71046; 71275; 74177; 80048; 80053; 81001; 82272; 82550; 82553; 82805; 83735; 83880; 84100; 84132; 84484; 85025; 85027; 85379; 85610; 85730; 86850; 86900; 86901; 86920; 87040; 87070; 87086; 87205; 91110; 93005; 93306; 94640; 94760; 99291

== ENCOUNTER 2018-05-12 14:04 | Emergency (ER) | payer MEDICARE ==
[2018-05-12 14:46] VITALS: RESP 18; TEMP 98.4
[2018-05-12 16:42] LABS: ALT 32 U/L (21-72); AST 29 U/L (17-59); Alkaline Phosphatase 75 U/L (38-126); Anion Gap 12 mmol/L; Anisocytosis Moderate; Blood Urea Nitrogen 21 mg/dL (9-20); Calcium 8.9 mg/dL (8.4-10.2); Carbon Dioxide 24 mmol/L (22-30); Chloride 91 mmol/L (98-107); Glucose 115 mg/dL (74-99); HGB 8.2 gm/dL (13.0-17.5); MCH 30.4 pg (25.0-35.0); MCHC 34.3 g/dL (31.0-37.0); MCV 88.8 fL (80.0-100.0); Mean Platelet Volume 8.2; Platelet Count 212 k/uL (150-450); Potassium 4.8 mmol/L (3.5-5.1); RDW 21.9 % (11.5-15.5); Sodium 127 mmol/L (137-145); Total Bilirubin 0.9 mg/dL (0.2-1.3); Total Protein 6.3 g/dL (6.3-8.2); WBC 7.1 k/uL (3.8-10.6)
[2018-05-12 17:07] LABS: Band Neutrophils % 15 %; Eosinophils # (M) 0.07 k/uL (0-0.7); Lymphocytes # (M) 0.78 k/uL (1.0-4.8); Metamyelocytes # (M) 0.21 k/uL (0); Metamyelocytes % 3 %; Monocytes # (M) 0.71 k/uL (0-1.0); Myelocytes # (M) 0.85 k/uL (0); Myelocytes % 12 %; Neutrophils % (M) 51 %; Nucleated Red Blood Cells 0 /100 WBC (0-0); Total Cells Counted 200
[2018-05-12 17:08] LABS: Ovalocytes Present; Poikilocytosis (M) Present; Polychromasia Present; RBC Fragments Present
[2018-05-12] MEDS ORDERED: ceFAZolin 1,000 MG VIAL IM STA (18:41)
--- NOTE | 2018-05-12 18:41 | ED ---
General Adult HPI - General Chief complaint: Skin/Abscess/Foreign Body Stated complaint: Poss Infect foot Time Seen by Provider: 05/12/18 15:00 Source: patient, RN notes reviewed Mode of arrival: wheelchair Limitations: physical limitation - History of Present Illness Initial comments: This is a 78-year-old male who presents emergency Department with a wound on his second toe. Patient states his been there for a while he is going to the wound center this week appointment to go in tomorrow. His visiting nurse wanted him to be seen in emergency department because she thought was a little more red than normal. Patient states he does not believe any more red than normal. Patient states there has been some pus coming from the wound but that is been ongoing. Patient denies any fever chills per patient denies any redness , leg. Patient denies any other symptoms at this time. - Related Data Home Medications Medication Instructions Recorded Confirmed Atorvastatin [Lipitor] 40 mg PO HS 09/27/14 05/12/18 Metoprolol Tartrate [Lopressor] 50 mg PO BID 09/27/14 05/12/18 Terazosin [Hytrin] 5 mg PO HS 09/27/14 05/12/18 Spironolactone [Aldactone] 25 mg PO DAILY 11/12/17 05/12/18 Ruxolitinib Phosphate [Jakafi] 25 mg PO BID 02/07/18 05/12/18 oxyCODONE HCL/ACETAMINOPHEN 1 tab PO Q6HR PRN 03/05/18 05/12/18 [Endocet 5-325 mg] Previous Rx's Medication Instructions Recorded Enalapril [Vasotec] 5 mg PO DAILY #30 tablet 10/12/14 Aspirin 81 mg PO DAILY #30 chew 04/07/18 Clopidogrel [Plavix] 75 mg PO DAILY #30 tab 04/07/18 Furosemide [Lasix] 60 mg PO BID #60 tab 04/24/18 Gabapentin [Neurontin] 200 mg PO TID cap 04/24/18 Ipratropium-Albuterol Nebulize 3 ml INHALATION RT-Q2H PRN 04/24/18 [Duoneb 0.5 mg-3 mg/3 ml Soln] ampul.neb Isosorbide Mononitrate ER [Imdur] 15 mg PO DAILY dose 04/24/18 Nitroglycerin Sl Tabs [Nitrostat] 0.4 mg SUBLINGUAL ONCE PRN tab 04/24/18 Pantoprazole Sodium [Protonix] 40 mg PO DAILY #30 tablet. 04/24/18 Cephalexin [Keflex] 500 mg PO Q6HR #28 cap 05/12/18 Allergies Allergy/AdvReac Type Severity Reaction Status Date / Time No Known Allergies Allergy Verified 05/12/18 18:04 Review of Systems ROS Statement: Those systems with pertinent positive or pertinent negative responses have been documented in the HPI. ROS Other: All systems not noted in ROS Statement are negative. 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 The patient currently has a right foot toe which is ischemic/4rth toe History of Any Multi-Drug Resistant Organisms: Acinetobacter (MDRO) Date of last positivie culture/infection: 11/18/17 MDRO Source:: MDRO ACINETOBACTER SPUTUM Past Surgical History: Cholecystectomy, Coronary Bypass/CABG, Heart Catheterization, Hernia Repair Additional Past Surgical History / Comment(s): Cardiac catheterization on 2013, right femoral artery/common femoral artery endarterectomy. 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 tom inguinal hernia repair, coronary artery bypass surgery, EGD, colonoscopy Past Anesthesia/Blood Transfusion Reactions: No Reported Reaction Past Psychological History: No Psychological Hx Reported Smoking Status: Former smoker Past Alcohol Use History: Occasional Past Drug Use History: None Reported - Past Family History Brother(s) Family Medical History: Cancer Additional Family Medical History / Comment(s): 2 with lung and 1 with prostate Mother Family Medical History: Myocardial Infarction ([place]) Father Additional Family Medical History / Comment(s): AT AGE 83 FROM "HARDENING OF THE ARTERIES" General Exam - General Exam Comments Initial Comments: GENERAL Patient is well-developed and well-nourished. Patient is in mild distress. EYES Patient's pupils are equal and round. Extraocular motion is intact SKIN Unremarkable NEURO The patient is alert and oriented 3 PYSCH Patient has normal interpersonal interactions. MUSCULOSKELETAL Patient's second toe has an ulceration on the medial aspect adjacent to the first phalanx. There is some pus that is able to be expressed from the wound. Limitations: physical limitation Course Vital Signs 05/12/18 14:43 Temperature 98.4 F Pulse Rate 56 L Respiratory 18 Rate Blood Pressure 104/48 O2 Sat by Pulse 98 Oximetry Medical Decision Making - Medical Decision Making I spoke with Dr. Franklin about the wound and the results and he wanted the patient to follow-up as an outpatient with the wound care clinic tomorrow he wanted the patient on Keflex and he will see the patient after the wound care clinic. - Lab Data Result diagrams: 05/12/18 16:17 05/12/18 16:17 Lab Results 05/12/18 05/12/18 05/12/18 Range/Units 16:17 16:17 16:17 WBC 7.1 (3.8-10.6) k/uL RBC 2.70 L (4.30-5.90) m/uL Hgb 8.2 L (13.0-17.5) gm/dL Hct 24.0 L (39.0-53.0) % MCV 88.8 (80.0-100.0) fL MCH 30.4 (25.0-35.0) pg MCHC 34.3 (31.0-37.0) g/dL RDW 21.9 H (11.5-15.5) % Plt Count 212 (150-450) k/uL Neutrophils % (Manual) 51 % Band Neutrophils % 15 % Lymphocytes % (Manual) 11 % Monocytes % (Manual) 10 % Eosinophils % (Manual) 1 % Metamyelocytes % 3 % Myelocytes % 12 % Neutrophils # (Manual) 4.60 (1.3-7.7) k/uL Lymphocytes # (Manual) 0.78 L (1.0-4.8) k/uL Monocytes # (Manual) 0.71 (0-1.0) k/uL Eosinophils # (Manual) 0.07 (0-0.7) k/uL Metamyelocytes # (Man) 0.21 H (0) k/uL Myelocytes # (Manual) 0.85 H (0) k/uL Nucleated RBCs 0 (0-0) /100 WBC Manual Slide Review Performed Polychromasia Present Poikilocytosis (manual Present Anisocytosis Moderate Ovalocytes Present Fragmented RBCs Present Sodium 127 L (137-145) mmol/L Potassium 4.8 (3.5-5.1) mmol/L Chloride 91 L (98-107) mmol/L Carbon Dioxide 24 (22-30) mmol/L Anion Gap 12 mmol/L BUN 21 H (9-20) mg/dL Creatinine 0.80 (0.66-1.25) mg/dL Est GFR (CKD-EPI)AfAm >90 (>60 ml/min/1.73 sqM) Est GFR (CKD-EPI)NonAf 86 (>60 ml/min/1.73 sqM) Glucose 115 H (74-99) mg/dL Plasma Lactic Acid Moe 0.6 L (0.7-2.0) mmol/L Calcium 8.9 (8.4-10.2) mg/dL Total Bilirubin 0.9 (0.2-1.3) mg/dL AST 29 (17-59) U/L ALT 32 (21-72) U/L Alkaline Phosphatase 75 (38-126) U/L Total Protein 6.3 (6.3-8.2) g/dL Albumin 4.0 (3.5-5.0) g/dL Disposition Clinical Impression: Open wound of second toe Disposition: HOME SELF-CARE Condition: Good Instructions: Wound Infection (ED) Prescriptions: Cephalexin [Keflex] 500 mg PO Q6HR #28 cap Is patient prescribed a controlled substance at d/c from ED?: No Referrals: Leon Franklin MD [Primary Care Provider] - 1-2 days Time of Disposition: 18:40
[2018-05-12 19:16] VITALS: BP 137/64; PULSE 59
== END 2018-05-12 19:20 | disposition home or self-care (01) ==
LOC: EC 14:04
DX: S91.104A Unspecified open wound of right lesser toe(s) without damage to nail, initial encounter (principal); I25.10 Atherosclerotic heart disease of native coronary artery without angina pectoris; I27.20 Pulmonary hypertension, unspecified; I11.0 Hypertensive heart disease with heart failure; I50.9 Heart failure, unspecified; E78.5 Hyperlipidemia, unspecified; I73.9 Peripheral vascular disease, unspecified; Z87.438 Personal history of other diseases of male genital organs; Z95.1 Presence of aortocoronary bypass graft; Z95.818 Presence of other cardiac implants and grafts; Z87.891 Personal history of nicotine dependence
CPT/HCPCS: 36415; 80053; 83605; 85025; 87070; 87205; 87077; 87186; 99283; 96372; J0690

== ENCOUNTER 2018-07-14 14:42 | Inpatient (IN) | payer MEDICARE ==
--- NOTE | 2018-07-14 15:31 | ED ---
General Adult HPI - General Source: patient, RN notes reviewed Mode of arrival: wheelchair Limitations: no limitations <Eliud Modi - Last Filed: 07/14/18 17:02> <David Mayer - Last Filed: 07/14/18 20:06> - General Chief complaint: Shortness of Breath Stated complaint: Chest pain Time Seen by Provider: 07/14/18 14:45 - History of Present Illness Initial comments: This is a 78-year-old male who presents emergency department stating that on Saturday afternoon he had a severe sharp chest pain which lasted only a few seconds but ever since that time had a hard time breathing. Patient states the shortness of breath continued today so decided come to the emergency department. Patient denies any current chest discomfort. Patient states the chest pain was only one time. Patient states the shortness of breath is worse with any kind of exertion. Patient denies any fever chills or cough. Patient denies any swelling to calf tenderness. Patient denies any lightheadedness dizziness or near syncopal episode. Patient denies any abdominal pain. Patient denies any nausea vomiting diarrhea (Eliud Modi) - Related Data Home Medications Medication Instructions Recorded Confirmed Atorvastatin [Lipitor] 40 mg PO HS 09/27/14 07/14/18 Metoprolol Tartrate [Lopressor] 50 mg PO BID 09/27/14 07/14/18 Terazosin [Hytrin] 5 mg PO DAILY 09/27/14 07/14/18 Spironolactone [Aldactone] 25 mg PO DAILY 11/12/17 07/14/18 Epoetin Newton [Procrit] 2,000 unit SQ TH 07/14/18 07/14/18 Jakafi 15mg 15 mg PO BID 07/14/18 07/14/18 Levofloxacin [Levaquin] 750 mg PO DAILY 07/14/18 07/14/18 Omeprazole 20 mg PO DAILY 07/14/18 07/14/18 Pantoprazole Sodium [Protonix] 80 mg PO BID 07/14/18 07/14/18 oxyCODONE-APAP 5-325MG [Percocet 1 tab PO Q6HR PRN 07/14/18 07/14/18 5-325 mg] Previous Rx's Medication Instructions Recorded Enalapril [Vasotec] 5 mg PO DAILY #30 tablet 10/12/14 Aspirin 81 mg PO DAILY #30 chew 04/07/18 Clopidogrel [Plavix] 75 mg PO DAILY #30 tab 04/07/18 Furosemide [Lasix] 60 mg PO BID #60 tab 04/24/18 Gabapentin [Neurontin] 200 mg PO TID cap 04/24/18 Nitroglycerin Sl Tabs [Nitrostat] 0.4 mg SUBLINGUAL ONCE PRN tab 04/24/18 Allergies Allergy/AdvReac Type Severity Reaction Status Date / Time No Known Allergies Allergy Verified 07/14/18 16:25 Review of Systems ROS Other: All systems not noted in ROS Statement are negative. <Eliud Modi - Last Filed: 07/14/18 17:02> ROS Other: All systems not noted in ROS Statement are negative. <David Mayer - Last Filed: 07/14/18 20:06> ROS Statement: Those systems with pertinent positive or pertinent negative responses have been documented in the HPI. Past Medical History Past Medical History: Blood Disorder, Coronary Artery Disease (CAD), Heart Failure, GERD/Reflux, Hyperlipidemia, Hypertension, Prostate Disorder Additional Past Medical History / Comment(s): blood disorder -pt unsure of what it's called, but is seen at 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 tom inguinal hernia repair, coronary artery bypass surgery, EGD, colonoscopy Past Anesthesia/Blood Transfusion Reactions: No Reported Reaction Past Psychological History: No Psychological Hx Reported Smoking Status: Former smoker Past Alcohol Use History: Occasional Past Drug Use History: None Reported - Past Family History Brother(s) Family Medical History: Cancer Additional Family Medical History / Comment(s): 2 with lung and 1 with prostate Mother Family Medical History: Myocardial Infarction ([place]) Father Additional Family Medical History / Comment(s): AT AGE 83 FROM "HARDENING OF THE ARTERIES" <Eliud Modi - Last Filed: 07/14/18 17:02> General Exam Limitations: no limitations <Eliud Modi - Last Filed: 07/14/18 17:02> <David Mayer - Last Filed: 07/14/18 20:06> - General Exam Comments Initial Comments: GENERAL: Patient is well-developed and well-nourished. Patient is nontoxic and well- hydrated and is in mild distress. ENT: Neck is soft and supple. No significant lymphadenopathy is noted. Oropharynx is clear. Moist mucous membranes. Neck has full range of motion without eliciting any pain. EYES: The sclera were anicteric and conjunctiva were pink and moist. Extraocular movements were intact and pupils were equal round and reactive to light. Eyelids were unremarkable. PULMONARY: Unlabored respirations. Good breath sounds bilaterally. No audible rales rhonchi or wheezing was noted. CARDIOVASCULAR: There is a regular rate and rhythm without any murmurs gallops or rubs. ABDOMEN: Soft and nontender with normal bowel sounds. SKIN: Skin is clear with no lesions or rashes and otherwise unremarkable. NEUROLOGIC: Patient is alert and oriented x3. Cranial nerves II through XII are grossly intact. Motor and sensory are also intact. Normal speech, volume and content. Symmetrical smile. MUSCULOSKELETAL: Normal extremities with adequate strength and full range of motion. No lower extremity swelling or edema. No calf tenderness. LYMPHATICS: No significant lymphadenopathy is noted PSYCHIATRIC: Normal psychiatric evaluation. Normal interpersonal interactions appears functionally intact in deals appropriately with others. No signs of depression. No signs of anxiety. (Eliud Modi) Course <Eliud Modi - Last Filed: 07/14/18 17:02> <David Mayer - Last Filed: 07/14/18 20:06> Vital Signs 07/14/18 07/14/18 07/14/18 14:47 15:05 15:06 Temperature 97.7 F Pulse Rate 76 64 Respiratory 18 18 18 Rate Blood Pressure 105/57 113/57 O2 Sat by Pulse 100 100 Oximetry 07/14/18 07/14/18 07/14/18 16:58 18:13 19:24 Temperature 98.0 F Pulse Rate 62 61 56 L Respiratory 18 18 18 Rate Blood Pressure 149/70 161/71 132/79 O2 Sat by Pulse 100 99 99 Oximetry - Reevaluation(s) Reevaluation #1: 07/14/18 20:02 The patient has had no further chest pain he is not aware of any history of atrial flutter or fibrillation. At this time no EKG demonstrated as can be found in the system dated 19/06/08 and this other one 01/27/10 demonstrate sinus rhythm. Patient will be admitted for evaluation by cardiology (David Mayer) Medical Decision Making - Lab Data Result diagrams: 07/14/18 15:08 <Eliud Modi - Last Filed: 07/14/18 17:02> - Lab Data Result diagrams: 07/14/18 15:08 07/14/18 15:08 <David Mayer - Last Filed: 07/14/18 20:06> - Medical Decision Making EKG shows atrial flutter at 64 bpm QRS is 98 QT interval 426 QTC is 439. Patient also had a PVC on the EKG. Dr. Mayer be taking over the care of this patient at 5 PM (Eliud Modi) - Lab Data Lab Results 07/14/18 07/14/18 07/14/18 Range/Units 15:08 15:08 15:08 WBC 11.0 H (3.8-10.6) k/uL RBC 2.47 L (4.30-5.90) m/uL Hgb 8.5 L (13.0-17.5) gm/dL Hct 24.5 L (39.0-53.0) % MCV 99.2 D (80.0-100.0) fL MCH 34.2 (25.0-35.0) pg MCHC 34.4 (31.0-37.0) g/dL RDW 25.5 H (11.5-15.5) % Plt Count 211 (150-450) k/uL Neutrophils % (Manual) 46 % Band Neutrophils % 15 % Lymphocytes % (Manual) 10 % Monocytes % (Manual) 8 % Eosinophils % (Manual) 2 % Metamyelocytes % 5 % Myelocytes % 16 % Neutrophils # (Manual) 6.70 (1.3-7.7) k/uL Lymphocytes # (Manual) 1.10 (1.0-4.8) k/uL Monocytes # (Manual) 0.88 (0-1.0) k/uL Eosinophils # (Manual) 0.22 (0-0.7) k/uL Metamyelocytes # (Man) 0.55 H (0) k/uL Myelocytes # (Manual) 1.76 H (0) k/uL Nucleated RBCs 7 H (0-0) /100 WBC Manual Slide Review Performed Polychromasia Present Poikilocytosis Slight Anisocytosis Marked Macrocytosis Marked Tear Drop Cells Present Ovalocytes Present Fragmented RBCs Present PT (9.0-12.0) sec INR (<1.2) APTT (22.0-30.0) sec D-Dimer (<0.60) mg/L FEU Sodium 135 L (137-145) mmol/L Potassium 4.0 (3.5-5.1) mmol/L Chloride 100 (98-107) mmol/L Carbon Dioxide 22 (22-30) mmol/L Anion Gap 13 mmol/L BUN 34 H (9-20) mg/dL Creatinine 1.18 (0.66-1.25) mg/dL Est GFR (CKD-EPI)AfAm 68 (>60 ml/min/1.73 sqM) Est GFR (CKD-EPI)NonAf 59 (>60 ml/min/1.73 sqM) Glucose 107 H (74-99) mg/dL Calcium 9.7 (8.4-10.2) mg/dL Magnesium 1.6 (1.6-2.3) mg/dL Total Bilirubin 2.0 H (0.2-1.3) mg/dL AST 61 H (17-59) U/L ALT 52 (21-72) U/L Alkaline Phosphatase 44 (38-126) U/L Total Creatine Kinase 40 L (55-170) U/L CK-MB (CK-2) 1.1 (0.0-2.4) ng/mL CK-MB (CK-2) Rel Index 2.8 Troponin I <0.012 (0.000-0.034) ng/mL NT-Pro-B Natriuret Pep pg/mL Total Protein 7.1 (6.3-8.2) g/dL Albumin 4.5 (3.5-5.0) g/dL 09/10/18 09/10/18 Range/Units 15:08 15:08 WBC (3.8-10.6) k/uL RBC (4.30-5.90) m/uL Hgb (13.0-17.5) gm/dL Hct (39.0-53.0) % MCV (80.0-100.0) fL MCH (25.0-35.0) pg MCHC (31.0-37.0) g/dL RDW (11.5-15.5) % Plt Count (150-450) k/uL Neutrophils % (Manual) % Band Neutrophils % % Lymphocytes % (Manual) % Monocytes % (Manual) % Eosinophils % (Manual) % Metamyelocytes % % Myelocytes % % Neutrophils # (Manual) (1.3-7.7) k/uL Lymphocytes # (Manual) (1.0-4.8) k/uL Monocytes # (Manual) (0-1.0) k/uL Eosinophils # (Manual) (0-0.7) k/uL Metamyelocytes # (Man) (0) k/uL Myelocytes # (Manual) (0) k/uL Nucleated RBCs (0-0) /100 WBC Manual Slide Review Polychromasia Poikilocytosis Anisocytosis Macrocytosis Tear Drop Cells Ovalocytes Fragmented RBCs PT 12.0 (9.0-12.0) sec INR 1.3 H (<1.2) APTT 23.3 (22.0-30.0) sec D-Dimer 0.35 (<0.60) mg/L FEU Sodium (137-145) mmol/L Potassium (3.5-5.1) mmol/L Chloride (98-107) mmol/L Carbon Dioxide (22-30) mmol/L Anion Gap mmol/L BUN (9-20) mg/dL Creatinine (0.66-1.25) mg/dL Est GFR (CKD-EPI)AfAm (>60 ml/min/1.73 sqM) Est GFR (CKD-EPI)NonAf (>60 ml/min/1.73 sqM) Glucose (74-99) mg/dL Calcium (8.4-10.2) mg/dL Magnesium (1.6-2.3) mg/dL Total Bilirubin (0.2-1.3) mg/dL AST (17-59) U/L ALT (21-72) U/L Alkaline Phosphatase (38-126) U/L Total Creatine Kinase (55-170) U/L CK-MB (CK-2) (0.0-2.4) ng/mL CK-MB (CK-2) Rel Index Troponin I (0.000-0.034) ng/mL NT-Pro-B Natriuret Pep 2200 pg/mL Total Protein (6.3-8.2) g/dL Albumin (3.5-5.0) g/dL Disposition <Eliud Modi - Last Filed: 07/14/18 17:02> <David Mayer - Last Filed: 07/14/18 20:06> Clinical Impression: Chest pain, Atrial flutter Disposition: ADMITTED IP TO THIS HOSP Condition: Stable Referrals: Leon Franklin MD [Primary Care Provider] - 1-2 days
--- NOTE | 2018-07-14 16:11 | XR ---
EXAMINATION TYPE: XR chest 2V DATE OF EXAM: 07/14/2018 COMPARISON: Prior chest x-ray 04/23/2018 HISTORY: Difficulty breathing, dyspnea, short chest pain TECHNIQUE: Frontal and lateral views of the chest are obtained. FINDINGS: There is interval improved aeration, improvement in interstitium compared to prior exam. N o evident pneumothorax or pleural effusion. Patient is post median sternotomy. Pulmonary artery appea rs prominently although patient is rotated. There are overlying cardiac leads. IMPRESSION: No acute cardiopulmonary process. Correlate for possible pulmonary artery hypertension. Improvement in aeration, volume status.
[2018-07-14 16:53] LABS: Albumin 4.5 g/dL (3.5-5.0); Anisocytosis Marked; Calcium 9.7 mg/dL (8.4-10.2); HCT 24.5 % (39.0-53.0); HGB 8.5 gm/dL (13.0-17.5); MCH 34.2 pg (25.0-35.0); MCHC 34.4 g/dL (31.0-37.0); Macrocytosis Marked; Magnesium 1.6 mg/dL (1.6-2.3); Mean Platelet Volume 8.3; Platelet Count 211 k/uL (150-450); Poikilocytosis Slight; RBC 2.47 m/uL (4.30-5.90); Total Protein 7.1 g/dL (6.3-8.2)
[2018-07-14 16:57] LABS: Creatine Kinase 40 U/L (55-170)
[2018-07-14 16:59] LABS: D-Dimer 0.35 mg/L FEU (<0.60); INR 1.3 (<1.2); Partial Thromboplastin Time 23.3 sec (22.0-30.0)
[2018-07-14 17:09] LABS: Creatine Kinase MB 1.1 ng/mL (0.0-2.4); Troponin I <0.012 ng/mL (0.000-0.034)
[2018-07-14 17:12] LABS: MCV 99.2 fL (80.0-100.0); RDW 25.5 % (11.5-15.5)
[2018-07-14 17:30] LABS: Band Neutrophils % 15 %; Eosinophils # (M) 0.22 k/uL (0-0.7); Metamyelocytes # (M) 0.55 k/uL (0); Metamyelocytes % 5 %; Monocytes # (M) 0.88 k/uL (0-1.0); Myelocytes # (M) 1.76 k/uL (0); Myelocytes % 16 %; Neutrophils % (M) 46 %; Nucleated Red Blood Cells 7 /100 WBC (0-0); Total Cells Counted 200
[2018-07-14 17:31] LABS: Ovalocytes Present; Polychromasia Present; RBC Fragments Present; Tear Drop Cells Present
[2018-07-14] MEDS ORDERED: MAGNESIUM SULFATE-D5W PMX 1 GM in DEXTROSE/WATER 1 100ML.BAG IVPB ONE (17:31)
[2018-07-14] MEDS ORDERED: NITROGLYCERIN SL TABS 0.4 MG TAB SUBLINGUAL PRN (20:07)
[2018-07-14] MEDS ORDERED: HEPARIN SODIUM,PORCINE 5,000 UNIT/ML 1 ML VIAL IV ONE (20:07)
[2018-07-14] MEDS ORDERED: oxyCODONE-APAP 5-325MG 1 EACH TAB PO PRN (20:10)
[2018-07-14] MEDS ORDERED: HEPARIN SOD,PORK IN 0.45% NACL 25,000 UNIT in 0.45% NACL 1 500ML.BAG IV SCH (20:15)
[2018-07-14] MEDS ORDERED: ATORVASTATIN 40 MG TAB PO SCH (21:00)
[2018-07-14 21:27] LABS: Creatine Kinase 31 U/L (55-170)
[2018-07-14 21:39] LABS: Creatine Kinase MB 1.2 ng/mL (0.0-2.4); Troponin I <0.012 ng/mL (0.000-0.034)
[2018-07-14] MEDS: FUROSEMIDE 20 MG TAB PO SCH (22:29)
[2018-07-14] MEDS: GABAPENTIN 100 MG CAP PO SCH (22:29)
[2018-07-14] MEDS: METOPROLOL TARTRATE 50 MG TAB PO SCH (22:30)
[2018-07-14] MEDS: JAKAFI 15 MG PO SCH (22:45)
--- NOTE | 2018-07-14 23:18 | P.HPIM ---
History of Present Illness H&P Date: 07/14/18 Chief Complaint: difficulty in breathing of 2-3 days duration 78 year old male with history of CAD, s/p CABG 10 years ago, chronic systolic CHF with LVEF 35-40%, severe pulmonary hypertension , myeloproliferative disorder, and recent GI bleeding of unidentified origin 2 months ago. patient presented due to progressive SOB since saturday. He describes that he was at his baseline status of health , until Saturday afternoon around 3 pm when he felt short lived severe chest pain left sided that lasted for a seconds and resolved on its own. since then he has been having progressive SOB, denies any coughing, wheezing, orthopnea, or leg edema, but does report PNDs and trouble sleeping. He reports SOB with very mild exertion, he cant even go get his mail. it kept on worsening as the days passed , and decided to seek medical advice today. he also reports some occasional heart racing but denies any dizziness, lightheadedness, or skipped beats. he denies any abd pain, nausea, vomiting, or GI bleeding at this time. He denies any syncope or near syncope. Patient visits his wound clinic for right 4th toe ulcer that is healing now, he has been on levofloxacin for 3 weeks now, and supposed to continue it until when he has his follow up appointment He claims to be compliant with his medications. Thorough review of medical records, showed that he was admitted back in April 2018 for NSTEMI, where he had some arrythmias in the form of atrial flutter and fibrilation (SVT) he was not a good candidate for anticoagulation due to GI bleeding at that time, endoscopy failed to identify the source of bleeding. 2D echocardiogram showed, severe pulmonary hypertension , LVEF 35-40%, severe tricuspid valve regurge , LA dilated, RV severely enlarged. Patient has home oxygen that he is not using. currently patient seen in the ED, was initially found to have aflutter with RVR , but slowed down, he is currently comfortable while sitting in bed, however, becomes short of breath if he walks around. Review of Systems Pertinent positives as noted in HPI. 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 tom inguinal hernia repair, coronary artery bypass surgery, EGD, colonoscopy Past Anesthesia/Blood Transfusion Reactions: No Reported Reaction Past Psychological History: No Psychological Hx Reported Smoking Status: Former smoker Past Alcohol Use History: Occasional Past Drug Use History: None Reported - Past Family History Brother(s) Family Medical History: Cancer Additional Family Medical History / Comment(s): 2 with lung and 1 with prostate Mother Family Medical History: Myocardial Infarction ([place]) Father Additional Family Medical History / Comment(s): AT AGE 83 FROM "HARDENING OF THE ARTERIES" Medications and Allergies Home Medications Medication Instructions Recorded Confirmed Type Atorvastatin [Lipitor] 40 mg PO HS 09/27/14 07/14/18 History Metoprolol Tartrate [Lopressor] 50 mg PO BID 09/27/14 07/14/18 History Terazosin [Hytrin] 5 mg PO DAILY 09/27/14 07/14/18 History Enalapril [Vasotec] 5 mg PO DAILY #30 tablet 10/12/14 07/14/18 Rx Spironolactone [Aldactone] 25 mg PO DAILY 11/12/17 07/14/18 History Aspirin 81 mg PO DAILY #30 chew 04/07/18 07/14/18 Rx Clopidogrel [Plavix] 75 mg PO DAILY #30 tab 04/07/18 07/14/18 Rx Furosemide [Lasix] 60 mg PO BID #60 tab 04/24/18 07/14/18 Rx Gabapentin [Neurontin] 200 mg PO TID cap 04/24/18 07/14/18 Rx Nitroglycerin Sl Tabs [Nitrostat] 0.4 mg SUBLINGUAL ONCE PRN tab 04/24/1807/14 Rx Doxycycline Hyclate 100 mg PO BID 07/14/18 07/14/18 History Epoetin Newton [Procrit] 2,000 unit SQ TH 07/14/18 07/14/18 History Jakafi 15mg 15 mg PO BID 07/14/18 07/14/18 History Omeprazole 20 mg PO DAILY 07/14/18 07/14/18 History Pantoprazole Sodium [Protonix] 40 mg PO DAILY 07/14/18 07/14/18 History oxyCODONE-APAP 5-325MG [Percocet 1 tab PO Q6HR PRN 07/14/18 07/14/18 History 5-325 mg] Allergies Allergy/AdvReac Type Severity Reaction Status Date / Time No Known Allergies Allergy Verified 07/14/18 16:25 Physical Exam Vitals: Vital Signs Temp Pulse Resp BP Pulse Ox 07/14/18 19:24 98.0 F 56 L 18 132/79 99 07/14/18 18:13 61 18 161/71 99 07/14/18 16:58 62 18 149/70 100 07/14/18 15:06 18 07/14/18 15:05 64 18 113/57 100 07/14/18 14:47 97.7 F 76 18 105/57 100 Intake and Output 07/14/18 07/14/18 07/14/18 06:59 14:59 22:59 Other: Weight 70.307 kg Constitutional: No acute distress, conversant, pleasant Eyes: Anicteric sclerae, moist conjunctiva, no lid-lag Pupils equal round reactive to light ENMT: NC/AT Oropharynx clear, no erythema, exudates, upper dentures identified Neck: Supple, FROM, no masses, or JVD right carotid bruits No thyromegaly Lungs: Clear to auscultation Clear to percussion Normal respiratory effort, no accessory muscle use Cardiovascular: Heart regular in rate and rhythm, systolic murmur, no gallops, or rubs No peripheral edema Abdominal: Soft Nontender, no guarding, rebound or rigidity Abdomen moving with respiration Normoactive bowel sounds No hepatomegaly, No splenomegaly No palpable mass No abdominal wall hernia noted Skin: Normal temperature, tone, texture, turgor No induration No subcutaneous nodules No rash, lesions small healing ulcer over the lateral aspect of the right 4th toe 1X1 cm dry , no induration no erythema, no tenderness, no drainage Extremities: No digital cyanosis No clubbing Pedal pulses weak and symmetrical, good capillary refill over toes Radial pulses intact and symmetrical No calf tenderness Psychiatric: Alert and oriented to person, place and time Appropriate affect fair judgment Neuro Muscles Strength 5/5 in all 4 extremities Sensation to light touch grossly present throughout Cranial nerves II-XII grossly intact (poor hearing bilaterally CN VIII) No focal sensory deficits Lymphatics: no palpable cervical or supraclavicular , or inguinal lymph nodes Results CBC & Chem 7: 07/14/18 15:08 07/14/18 15:08 Labs: Abnormal Lab Results - Last 24 Hours (Table) 07/14/18 07/14/18 07/14/18 Range/Units 15:08 15:08 15:08 WBC 11.0 H (3.8-10.6) k/uL RBC 2.47 L (4.30-5.90) m/uL Hgb 8.5 L (13.0-17.5) gm/dL Hct 24.5 L (39.0-53.0) % RDW 25.5 H (11.5-15.5) % Metamyelocytes # (Man) 0.55 H (0) k/uL Myelocytes # (Manual) 1.76 H (0) k/uL Nucleated RBCs 7 H (0-0) /100 WBC INR (<1.2) Sodium 135 L (137-145) mmol/L BUN 34 H (9-20) mg/dL Glucose 107 H (74-99) mg/dL Total Bilirubin 2.0 H (0.2-1.3) mg/dL AST 61 H (17-59) U/L Total Creatine Kinase 40 L (55-170) U/L 07/14/18 Range/Units 15:08 WBC (3.8-10.6) k/uL RBC (4.30-5.90) m/uL Hgb (13.0-17.5) gm/dL Hct (39.0-53.0) % RDW (11.5-15.5) % Metamyelocytes # (Man) (0) k/uL Myelocytes # (Manual) (0) k/uL Nucleated RBCs (0-0) /100 WBC INR 1.3 H (<1.2) Sodium (137-145) mmol/L BUN (9-20) mg/dL Glucose (74-99) mg/dL Total Bilirubin (0.2-1.3) mg/dL AST (17-59) U/L Total Creatine Kinase (55-170) U/L Assessment and Plan Assessment: 78 year old male with history of CAD, s/p CABG 10 years ago, chronic systolic CHF with LVEF 35-40%, severe pulmonary hypertension , myeloproliferative disorder, and recent GI bleeding of unidentified origin 2 months ago. patient admitted under observation with anticipated length of stay <48 hours, for evaluation of progressive SOB, and atrial flutter. Plan: exertional dyspnea possilby due to underlying atrial flutter, vs severe pulmonary hypertension chronic systolic CHF , currently compensated severe pulmonary hy inpertension Myeloproliferative disorder chronic anemia secondary to recent GI bleeding and underlying myeloproliferative disorder history of CAD s/p CABG , recent NSTEMI 2 months ago severe PAD, currently stable Chronic esophagitis, on PPI Right 4th toe ulcer due to PAD, continue ABx cardiac monitoring, and trend cardiac enzymes continue home meds currently patient is rate controlled, he was not a good candidate for anticoagulation upon discharge last time in April, due to GI bleeding cardiology evaluation follow up electrolytes check TSH pulmonary consultation , for recommendation regarding severe pulmonary hypertension , and home oxygen discontinue heparin drip, due to anemia and recent GI bleeding DVT PPx, heparin sc TID Preformed a thorough record review from recent hospitalization as summarized in HPI Surrogate decision-maker: patient CODE STATUS:full code Discussed with: Patient, ER, RN Anticipated discharge: <[address]: home A total of 60 minutes was spent on the care of this complex patient more than 50 % of the time was spent in counseling and care coordination.
[2018-07-14 23:36] VITALS: BMI 24.3
[2018-07-15 04:20] LABS: ALT 64 U/L (21-72); AST 58 U/L (17-59); Albumin 4.2 g/dL (3.5-5.0); Alkaline Phosphatase 41 U/L (38-126); Anion Gap 10 mmol/L; Blood Urea Nitrogen 26 mg/dL (9-20); Calcium 9.4 mg/dL (8.4-10.2); Carbon Dioxide 24 mmol/L (22-30); Chloride 101 mmol/L (98-107); Cholesterol 116 mg/dL (<200); Glucose 89 mg/dL (74-99); HDL Cholesterol 39 mg/dL (40-60); LDL Cholesterol,Calculated 67 mg/dL (0-99); Magnesium 2.1 mg/dL (1.6-2.3); Potassium 3.5 mmol/L (3.5-5.1); Sodium 135 mmol/L (137-145); Total Bilirubin 1.7 mg/dL (0.2-1.3); Total Protein 6.8 g/dL (6.3-8.2); Triglycerides 50 mg/dL (<150)
[2018-07-15 04:35] LABS: Creatine Kinase 38 U/L (55-170)
[2018-07-15 04:47] LABS: Creatine Kinase MB 1.3 ng/mL (0.0-2.4); Troponin I <0.012 ng/mL (0.000-0.034)
[2018-07-15 05:24] LABS: Anisocytosis Marked; HCT 23.6 % (39.0-53.0); HGB 7.8 gm/dL (13.0-17.5); Hypochromasia Slight; MCH 32.6 pg (25.0-35.0); MCHC 32.8 g/dL (31.0-37.0); MCV 99.5 fL (80.0-100.0); Macrocytosis Marked; Mean Platelet Volume 8.3; Platelet Count 189 k/uL (150-450); Poikilocytosis Slight; RBC 2.38 m/uL (4.30-5.90)
[2018-07-15 05:30] LABS: RDW 25.4 % (11.5-15.5)
[2018-07-15 06:41] LABS: Band Neutrophils % 19 %; Lymphocytes # (M) 2.22 k/uL (1.0-4.8); Metamyelocytes # (M) 0.94 k/uL (0); Metamyelocytes % 8 %; Monocytes # (M) 0.35 k/uL (0-1.0); Myelocytes # (M) 0.47 k/uL (0); Myelocytes % 4 %; Neutrophils % (M) 49 %; Nucleated Red Blood Cells 3 /100 WBC (0-0); Total Cells Counted 200; WBC 11.7 k/uL (3.8-10.6)
[2018-07-15 06:42] LABS: Large Platelets Present; Polychromasia Present; RBC Fragments Present
[2018-07-15 06:45] LABS: Tear Drop Cells Present
[2018-07-15 06:46] LABS: Ovalocytes Present
[2018-07-15] MEDS ORDERED: PANTOPRAZOLE 40 MG TABLET PO SCH (07:30)
[2018-07-15] MEDS ORDERED: HEPARIN SODIUM,PORCINE 5,000 UNIT/ML 1 ML VIAL SQ SCH (08:00)
[2018-07-15] MEDS ORDERED: ASPIRIN 325 MG TAB PO SCH (09:00)
[2018-07-15] MEDS ORDERED: DOXAZOSIN 4 MG TAB PO SCH (09:00)
[2018-07-15] MEDS ORDERED: SPIRONOLACTONE 25 MG TAB PO SCH (09:00)
[2018-07-15] MEDS ORDERED: CLOPIDOGREL 75 MG TAB PO SCH (09:00)
[2018-07-15] MEDS ORDERED: NON-FORMULARY DRUG (Omeprazole [Omeprazole] 20 MG) PO SCH (09:00)
[2018-07-15] MEDS ORDERED: LEVOFLOXACIN 750 MG TAB PO SCH (09:00)
[2018-07-15] MEDS ORDERED: ASPIRIN 81 MG PO SCH (09:00)
[2018-07-15] MEDS ORDERED: LISINOPRIL 10 MG TAB PO SCH (09:00)
[2018-07-15] MEDS: GABAPENTIN 100 MG CAP PO SCH (10:12)
[2018-07-15] MEDS: FUROSEMIDE 20 MG TAB PO SCH (10:13)
[2018-07-15] MEDS: METOPROLOL TARTRATE 50 MG TAB PO SCH (10:14)
[2018-07-15] MEDS: JAKAFI 15 MG PO SCH (10:21)
[2018-07-15 12:18] VITALS: BP 137/65; PULSE 58; RESP 16; TEMP 97.5
--- NOTE | 2018-07-15 12:44 | P.CNPUL ---
History of Present Illness Consult date: 07/15/18 Requesting physician: Roberto Carlos Juarez Reason for consult: dyspnea, chest pain Chief complaint: Left-sided chest pain with subsequent dyspnea History of present illness: This is a very pleasant 78-year-old gentleman who follows with Dr. Franklin as his primary care physician. He has a history of coronary artery disease with previous coronary artery bypass grafting, recent myocardial infarction, ischemic cardiomyopathy with an ejection fraction 35-40%, severe pulmonary hypertension with an RVSP of 95.53 mmHg peripheral vascular disease with previous revascularization of the right lower extremity and subsequent right femoral pseudoaneurysm requiring repair, history of intestinal bleeding with recent endoscopy and small bowel capsule study, chronic anemia. He presented here to the emergency room yesterday with complaints of a severe left-sided sharp chest pain that only lasted a few seconds following that he had shortness of breath mainly shortness breath with exertion. No cough or congestion. No decrease oxygenations he states he has a home oximeter readings of 99% he does have home O2 that he rarely uses. No calf pain or swelling. X-ray shows no acute pulmonary process. There is evidence of pulmonary hypertension. The patient did have a significant right upper lobe pneumonia on his admission back in April which x-ray has since cleared. He was found to be in atrial flutter. He was initiated on a heparin drip. He is seen today in consultation on the selective care unit. He is awake and alert in no acute distress. He is maintaining good O2 saturations in the high 90s on room air. He's been up ambulating in the [place] without any acute distress. No further chest pain or discomfort. White count 11.3. Hemoglobin 7.8. Creatinine 0.83. Troponin is negative 3. ProBNP 2200. He remains in atrial flutter with a controlled ventricular rate. Review of Systems Constitutional: Reports fatigue Eyes: denies blurred vision, denies decreased vision Ears: deny: decreased hearing Ears, nose, mouth and throat: Denies headache, Denies sore throat Cardiovascular: Reports chest pain, Reports dyspnea on exertion, Reports palpitations, Reports shortness of breath Respiratory: Reports dyspnea, Reports home oxygen Gastrointestinal: Denies abdominal pain, Denies diarrhea, Denies nausea, Denies vomiting Genitourinary: Reports as per HPI Musculoskeletal: Denies myalgias Integumentary: Denies pruritus, Denies rash Neurological: Denies numbness, Denies weakness Psychiatric: Denies anxiety, Denies depression Endocrine: Denies fatigue, Denies weight change Hematologic/Lymphatic: Reports easy bleeding Allergic/Immunologic: Reports as per HPI Past Medical History Past Medical History: Atrial Flutter, Blood Disorder, Coronary Artery Disease ( CAD), Heart Failure, GERD/Reflux, GI Bleed, Hyperlipidemia, Hypertension, Prostate Disorder Additional Past Medical History / Comment(s): myeloproliferative disorder( leukocytosis and thrombocytosis), esophagitis, severe PAD, severe pulmonary hypertension , right-sided heart failure with severe pulmonary hypertension, BPH History of Any Multi-Drug Resistant Organisms: Acinetobacter (MDRO), MRSA Date of last positivie culture/infection: 05/12/18-MRSA MDRO Source:: Foot-MRSA Past Surgical History: Cholecystectomy, Coronary Bypass/CABG, Heart Catheterization, Hernia Repair Additional Past Surgical History / Comment(s): Cardiac catheterization on 2013, right femoral artery/common femoral artery endarterectomy. 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 tom inguinal hernia repair, coronary artery bypass surgery, EGD, colonoscopy Past Anesthesia/Blood Transfusion Reactions: No Reported Reaction Past Psychological History: No Psychological Hx Reported Smoking Status: Former smoker Past Alcohol Use History: Occasional Past Drug Use History: None Reported - Past Family History Brother(s) Family Medical History: Cancer Additional Family Medical History / Comment(s): 2 with lung and 1 with prostate Mother Family Medical History: Myocardial Infarction ([place]) Father History Unknown: Yes Additional Family Medical History / Comment(s): AT AGE 83 FROM "HARDENING OF THE ARTERIES" Medications and Allergies Home Medications Medication Instructions Recorded Confirmed Type Atorvastatin [Lipitor] 40 mg PO HS 09/27/14 07/14/18 History Metoprolol Tartrate [Lopressor] 50 mg PO BID 09/27/14 07/14/18 History Terazosin [Hytrin] 5 mg PO DAILY 09/27/14 07/14/18 History Enalapril [Vasotec] 5 mg PO DAILY #30 tablet 10/12/14 07/14/18 Rx Spironolactone [Aldactone] 25 mg PO DAILY 11/12/17 07/14/18 History Aspirin 81 mg PO DAILY #30 chew 04/07/18 07/14/18 Rx Clopidogrel [Plavix] 75 mg PO DAILY #30 tab 04/07/18 07/14/18 Rx Furosemide [Lasix] 60 mg PO BID #60 tab 04/24/18 07/14/18 Rx Gabapentin [Neurontin] 200 mg PO TID cap 04/24/18 07/14/18 Rx Nitroglycerin Sl Tabs [Nitrostat] 0.4 mg SUBLINGUAL ONCE PRN tab 04/24/1807/14 Rx Doxycycline Hyclate 100 mg PO BID 07/14/18 07/14/18 History Epoetin Newton [Procrit] 2,000 unit SQ TH 07/14/18 07/14/18 History Jakafi 15mg 15 mg PO BID 07/14/18 07/14/18 History Omeprazole 20 mg PO DAILY 07/14/18 07/14/18 History Pantoprazole Sodium [Protonix] 40 mg PO DAILY 07/14/18 07/14/18 History oxyCODONE-APAP 5-325MG [Percocet 1 tab PO Q6HR PRN 07/14/18 07/14/18 History 5-325 mg] Allergies Allergy/AdvReac Type Severity Reaction Status Date / Time No Known Allergies Allergy Verified 07/14/18 16:25 Physical Exam Vitals: Vital Signs Temp Pulse Pulse Resp BP BP BP 07/15/18 12:00 97.5 F L 58 L 16 137/65 07/15/18 08:20 99.2 F 72 20 129/60 07/15/18 04:00 97.1 F L 53 L 16 106/53 07/15/18 00:00 97.4 F L 56 L 18 144/63 07/14/18 23:09 97.9 F 57 L 18 147/67 07/14/18 19:24 98.0 F 56 L 18 132/79 07/14/18 18:13 61 18 161/71 07/14/18 16:58 62 18 149/70 07/14/18 15:06 18 07/14/18 15:05 64 18 113/57 07/14/18 14:47 97.7 F 76 18 105/57 Pulse Ox 07/15/18 12:00 100 07/15/18 08:20 100 07/15/18 04:00 100 07/15/18 00:00 100 07/14/18 23:09 98 07/14/18 19:24 99 07/14/18 18:13 99 07/14/18 16:58 100 07/14/18 15:06 07/14/18 15:05 100 07/14/18 14:47 100 Intake and Output 07/14/18 07/15/18 07/15/18 22:59 06:59 14:59 Output Total 400 300 Balance -400 -300 Output: Urine 400 300 Other: Voiding Method Toilet Toilet Urinal Urinal # Voids 1 Weight 70.307 kg 71 kg GENERAL EXAM: Alert, active, comfortable in no apparent distress. HEAD: Normocephalic. EYES: Normal reaction of pupils, equal size. NOSE: Clear with pink turbinates. THROAT: No erythema or exudates. NECK: No masses, no JVD. CHEST: No chest wall deformity. LUNGS: Equal air entry with no crackles, wheeze, rhonchi or dullness. CVS: S1 and S2 normal with no audible murmur, regular rhythm. ABDOMEN: No hepatosplenomegaly, normal bowel sounds, no guarding or rigidity. SPINE: No scoliosis or deformity SKIN: No rashes CENTRAL NERVOUS SYSTEM: No focal deficits, tone is normal in all 4 extremities. EXTREMITIES: There is no peripheral edema. No clubbing, no cyanosis. Peripheral pulses are intact. Results - Laboratory Findings CBC and BMP: 07/15/18 03:45 07/15/18 03:45 PT/INR, D-dimer PT 12.0 sec (9.0-12.0) 07/14/18 15:08 INR 1.3 (<1.2) H 07/14/18 15:08 D-Dimer 0.35 mg/L FEU (<0.60) 07/14/18 15:08 Abnormal lab findings: Abnormal Labs 07/14/18 07/14/18 07/14/18 15:08 15:08 15:08 WBC 11.0 H RBC 2.47 L Hgb 8.5 L Hct 24.5 L RDW 25.5 H Neutrophils # (Manual) Metamyelocytes # (Man) 0.55 H Myelocytes # (Manual) 1.76 H Nucleated RBCs 7 H INR APTT Sodium 135 L BUN 34 H Glucose 107 H Total Bilirubin 2.0 H AST 61 H Total Creatine Kinase 40 L HDL Cholesterol 07/14/18 07/14/18 07/15/18 15:08 20:53 03:45 WBC RBC Hgb Hct RDW Neutrophils # (Manual) Metamyelocytes # (Man) Myelocytes # (Manual) Nucleated RBCs INR 1.3 H APTT Sodium BUN Glucose Total Bilirubin AST Total Creatine Kinase 31 L 38 L HDL Cholesterol 07/15/18 07/15/18 07/15/18 03:45 03:45 03:45 WBC 11.7 H RBC 2.38 L Hgb 7.8 L Hct 23.6 L RDW 25.4 H Neutrophils # (Manual) 7.90 H Metamyelocytes # (Man) 0.94 H Myelocytes # (Manual) 0.47 H Nucleated RBCs 3 H INR APTT 70.1 H Sodium 135 L BUN 26 H Glucose Total Bilirubin 1.7 H AST Total Creatine Kinase HDL Cholesterol 39 L - Diagnostic Findings Chest x-ray: image reviewed Assessment and Plan Assessment: Impression: #1 Dyspnea, multifactorial in a patient found to be in new onset atrial flutter and anemia, severe pulmonary hypertension. Chest x-ray is clear of any acute pulmonary process. #2 Acute on chronic anemia. #3 Coronary artery disease with review his coronary artery bypass grafting, recent myocardial infarction. #4 Peripheral vascular disease status post right lower extremity intervention complicated by right femoral pseudotumor and bleeding. #5 Hypertension. #6 Hyperlipidemia. #7 Former smoker. #8 Benign prostatic hypertrophy. Plan: The patient was seen and evaluated by Dr. Moreno. Chest x-ray and labs were reviewed. No clear evidence of pneumonia. The patient did have a significant right upper lobe pneumonia back in April 2018 which is cleared per radiographic findings. The patient is anxious to go home and is cleared from the pulmonary standpoint. He should follow-up in our office in 1-2 weeks' time. We can perform pulmonary function testing to evaluate for any suspected COPD as the patient is a former smoker. I, the cosigning physician, performed a history & physical examination of the patient. Lungs sounds are clear. Maintaining good O2 saturations up to 100% on room air. I discussed the assessment and plan of care with my nurse practitioner, Cristiana Landers. I attest to the above note as dictated by her. Time with Patient: Greater than 30
--- NOTE | 2018-07-15 14:15 | P.DS ---
Providers Date of admission: 07/14/18 20:06 Expected date of discharge: 07/15/18 Attending physician: Roberto Carlos Juarez MD Consults: 07/14/18 20:07 Consult Physician Urgent Consulting Provider: Tiffany Pelayo Consult Reason/Comments: Chest pain, atrial flutter Do you want consulting provider notified?: Yes 07/14/18 22:34 Consult Physician Routine Consulting Provider: Anita Moreno Consult Reason/Comments: pulmonary hypertension Do you want consulting provider notified?: Yes Primary care physician: Leon Franklin - Discharge Diagnosis(es) (1) Exertional dyspnea Current Visit: Yes Status: Acute (2) Atrial flutter Current Visit: Yes Status: Acute (3) Anemia Current Visit: No Status: Acute Priority: High (4) MDS (myelodysplastic syndrome) Current Visit: No Status: Chronic (5) Chronic systolic (congestive) heart failure Current Visit: Yes Status: Acute Hospital Course: The patient is a 78-year-old male with a past medical history of coronary artery disease with previous CABG, AR, ischemic cardiomyopathy with ejection fraction of 35-40% and severe pulmonary hypertension who presented with atypical chest pain and exertional dyspnea found to be of multifactorial etiology secondary to atrial flutter with controlled ventricular rate superimposed on acute on chronic anemia secondary to myelodysplastic disease further superimposed on chronic systolic CHF. Patient's troponins were negative 3, EKG was negative for sedation of his acute ischemia, proBNP was 2200 and the patient was started on IV heparin and later discontinued secondary to history of chronic anemia, history of previous GI bleed with unidentified source with recent endoscopy and small bowel capsule study. The patient was cleared from a pulmonary standpoint and recommended to follow-up in clinic with Dr. Moreno to have pulmonary function testing performed to rule out COPD as a patient is a former smoker, cardiology recommended titrating up the patient's metoprolol to 3 times a day dosing and was subsequently discharged home in stable condition. This discharge process took approximately 30 minutes Discharge physical GENERAL EXAM: Alert, active, comfortable in no apparent distress. HEAD: Normocephalic. EYES: Normal reaction of pupils, equal size. NOSE: Clear with pink turbinates. THROAT: No erythema or exudates. NECK: No masses, no JVD. CHEST: No chest wall deformity. LUNGS: Equal air entry with no crackles, wheeze, rhonchi or dullness. CVS: S1 and S2 normal with no audible murmur, regular rhythm. ABDOMEN: No hepatosplenomegaly, normal bowel sounds, no guarding or rigidity. SPINE: No scoliosis or deformity SKIN: No rashes CENTRAL NERVOUS SYSTEM: No focal deficits, tone is normal in all 4 extremities. EXTREMITIES: There is no peripheral edema. No clubbing, no cyanosis. Peripheral pulses are intact Patient Condition at Discharge: Stable Plan - Discharge Summary Discharge Rx Participant: No New Discharge Prescriptions: New Metoprolol Tartrate [Lopressor] 50 mg PO TID #90 tab Continue Terazosin [Hytrin] 5 mg PO DAILY Atorvastatin [Lipitor] 40 mg PO HS Enalapril [Vasotec] 5 mg PO DAILY #30 tablet Spironolactone [Aldactone] 25 mg PO DAILY Aspirin 81 mg PO DAILY #30 chew Clopidogrel [Plavix] 75 mg PO DAILY #30 tab Furosemide [Lasix] 60 mg PO BID #60 tab Gabapentin [Neurontin] 200 mg PO TID cap Nitroglycerin Sl Tabs [Nitrostat] 0.4 mg SUBLINGUAL ONCE PRN tab PRN Reason: Chest Pain Jakafi 15mg 15 mg PO BID Omeprazole 20 mg PO DAILY oxyCODONE-APAP 5-325MG [Percocet 5-325 mg] 1 tab PO Q6HR PRN PRN Reason: Pain Pantoprazole Sodium [Protonix] 40 mg PO DAILY Epoetin Newton [Procrit] 2,000 unit SQ TH Doxycycline Hyclate 100 mg PO BID Discontinued Metoprolol Tartrate [Lopressor] 50 mg PO BID Discharge Medication List Atorvastatin [Lipitor] 40 mg PO HS 09/27/14 [History] Terazosin [Hytrin] 5 mg PO DAILY 09/27/14 [History] Enalapril [Vasotec] 5 mg PO DAILY #30 tablet 10/12/14 [Rx] Spironolactone [Aldactone] 25 mg PO DAILY 11/12/17 [History] Aspirin 81 mg PO DAILY #30 chew 04/07/18 [Rx] Clopidogrel [Plavix] 75 mg PO DAILY #30 tab 04/07/18 [Rx] Furosemide [Lasix] 60 mg PO BID #60 tab 04/24/18 [Rx] Gabapentin [Neurontin] 200 mg PO TID cap 04/24/18 [Rx] Nitroglycerin Sl Tabs [Nitrostat] 0.4 mg SUBLINGUAL ONCE PRN tab 04/24/18 [Rx] Doxycycline Hyclate 100 mg PO BID 07/14/18 [History] Epoetin Newton [Procrit] 2,000 unit SQ TH 07/14/18 [History] Jakafi 15mg 15 mg PO BID 07/14/18 [History] Omeprazole 20 mg PO DAILY 07/14/18 [History] Pantoprazole Sodium [Protonix] 40 mg PO DAILY 07/14/18 [History] oxyCODONE-APAP 5-325MG [Percocet 5-325 mg] 1 tab PO Q6HR PRN 07/14/18 [History] Metoprolol Tartrate [Lopressor] 50 mg PO TID #90 tab 07/15/18 [Rx] Follow up Appointment(s)/Referral(s): Leon Franklin MD [Primary Care Provider] - 1-2 days Tiffany Pelayo MD [Family Provider] - (KEEP APPOINTMENT ALREADY MADE) Anita Moreno MD [STAFF PHYSICIAN] - 1 Week
[2018-07-15] MEDS ORDERED: METOPROLOL TARTRATE 50 MG TAB PO SCH (16:00)
--- NOTE | 2018-07-15 16:54 | CONS ---
CONSULTATION This is a 78-year-old gentleman with a known history of CAD, previous bypass surgery, and also peripheral arterial disease with critical limb ischemia, who underwent intervention by Dr. Britton and Dr. Cline in the past. This gentleman came into the hospital with an episode of chest discomfort which he described as a sharp pain that occurred across the chest and lasted a few seconds. The quality of the pain is quite atypical. His troponins are normal. He is resting comfortably without symptoms. I follow this patient usually in the office. However after arrival he was found to be in atrial fibrillation with a ventricular rate in the range of about 80 beats per minute. Underlying rhythm appears to be atrial flutter or fibrillation. When I ambulated the patient he has no further symptoms and heart rate went up to over 100 beats per minute. The patient has a lot of issues with underlying mild dysplasia, chronic anemia and hypertension, hyperlipidemia, and peripheral artery disease and CAD with prior bypass surgery. His hemoglobin however is around 9.0 and anything lower really makes him have anginal symptoms. However, at this time is asymptomatic, resting comfortably. Pain was atypical. Troponins are normal. PAST MEDICAL HISTORY: 1. Mild dysplasia. 2. Hypertension. 3. Hyperlipidemia. 4. CAD with prior bypass surgery. 5. Peripheral artery disease status post percutaneous and surgical intervention by Dr. Britton and Marlyn. MEDICATIONS: At home include Lipitor 40 mg daily, Lopressor 50 mg b.i.d., Hytrin 5 mg daily, Aldactone 25 mg daily, omeprazole. He also takes enalapril, aspirin, Plavix and Lasix. No allergies. PHYSICAL EXAMINATION: Blood pressure is 130/70, pulse rate is about 80 per minute irregular. HEENT: Unremarkable. Fundus was not examined by me. Neck is supple. No JVD. I do hear a soft carotid bruit. Heart exam reveals S1, S2 with a short systolic murmur. Lungs revealed decent air entry. Abdomen is soft, nontender. Lower extremities reveal diminished pulses. Central nervous system is normal. EKG revealed atrial flutter with a variable block, nonspecific ST-T changes. IMPRESSION: 1. Atypical chest pain in a patient with known coronary artery disease. 2. Atrial flutter which is new onset, atypical flutter rate controlled. 3. Hypertension. 4. Hyperlipidemia. 5. Peripheral artery disease status post percutaneous and surgical intervention. 6. History of mild dysplasia. RECOMMENDATIONS: I had the patient ambulate the hallways and with activity, heart rate went up to 110 beats per minute. I will increase the beta quan. 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 He does take Procrit injections. Cardiac- will I will increase beta quan, increase activity and he can be discharged and follow up as scheduled for an outpatient visit with me and also with Dr. Franklin. Discussed my thoughts in detail with the patient. Thank you very much for the consult. MMODL / IJN: [id number] /
[2018-07-17] MEDS ORDERED: DARBEPOETIN ALFA 25 MCG/ML 1 ML VIAL SQ SCH (12:00)
== END 2018-07-15 14:58 | disposition home or self-care (01) | DRG 309 ==
LOC: EC 14:42 → 6SEL 20:06
PROVIDERS: ADMIT Internal Medicine; ATTEND Internal Medicine
DX: I48.4 Atypical atrial flutter (principal); I50.22 Chronic systolic (congestive) heart failure; I27.20 Pulmonary hypertension, unspecified; I11.0 Hypertensive heart disease with heart failure; L97.519 Non-pressure chronic ulcer of other part of right foot with unspecified severity; D46.9 Myelodysplastic syndrome, unspecified; K21.0 Gastro-esophageal reflux disease with esophagitis; I25.5 Ischemic cardiomyopathy; I49.3 Ventricular premature depolarization; D53.9 Nutritional anemia, unspecified; I70.235 Atherosclerosis of native arteries of right leg with ulceration of other part of foot; I25.10 Atherosclerotic heart disease of native coronary artery without angina pectoris; E78.5 Hyperlipidemia, unspecified; N40.0 Benign prostatic hyperplasia without lower urinary tract symptoms; I25.2 Old myocardial infarction; Z99.81 Dependence on supplemental oxygen; Z79.82 Long term (current) use of aspirin; Z79.02 Long term (current) use of antithrombotics/antiplatelets; Z79.899 Other long term (current) drug therapy; Z86.79 Personal history of other diseases of the circulatory system; Z86.19 Personal history of other infectious and parasitic diseases; Z86.14 Personal history of Methicillin resistant Staphylococcus aureus infection; Z95.1 Presence of aortocoronary bypass graft; Z87.891 Personal history of nicotine dependence; Z87.01 Personal history of pneumonia (recurrent); Z90.49 Acquired absence of other specified parts of digestive tract; Z80.42 Family history of malignant neoplasm of prostate; Z80.1 Family history of malignant neoplasm of trachea, bronchus and lung; Z82.49 Family history of ischemic heart disease and other diseases of the circulatory system
CPT/HCPCS: 36415; 71046; 80053; 80061; 82550; 82553; 83735; 83880; 84443; 84484; 85025; 85379; 85610; 85730; 93005; 96365; 96366; 96367; 96376; 99285

== ENCOUNTER 2018-11-21 05:45 | Day surgery (SDC) | payer MEDICARE ==
[2018-11-20 08:47] VITALS: BMI 27.3
[~2018-11-21 05:45] MED LIST changes: -IV FLUID CONTINUATION 650 ML IV ONE; +Pre Op ABX Message 1 EACH MISC MISCELLANE ONE
[2018-11-21] MEDS ORDERED: LACTATED RINGERS 1,000 ML IV ONE (06:27)
[2018-11-21 06:43] VITALS: RESP 16; TEMP 97.8
[2018-11-21] MEDS ORDERED: LIDOCAINE 1% INJ 10MG/ML (20 ML MDV) ONE (07:04)
[2018-11-21] MEDS ORDERED: PROPOFOL 10 MG/ML 20 ML VIAL IV ONE (07:04)
--- NOTE | 2018-11-21 07:31 | P.PCN ---
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 Patient not responding to current regimen Operative Findings: Adequate samples Description of Procedure: The procedure was explained in detail to the patient in the office. He presented to the outpatient endoscopy suite where IV access and informed consent was obtained. He was then placed in the left lateral decubitus position. The area over both posterior iliac crest was cleaned and prepped with chlorhexidine and sterile draping. IV sedation was then initiated. Local anesthesia was administered with lidocaine to the right posterior hilar crest. A Jamshidi needle was then inserted and bone marrow aspirate and biopsy obtained. On withdrawal of the needle hemostasis was easily achieved. Blood loss was minimal and recovery from sedation was satisfactory. The patient appeared to have tolerated the procedure well without any obvious immediate complications
[2018-11-21 07:59] LABS: Anisocytosis Marked; HCT 26.4 % (39.0-53.0); HGB 8.9 gm/dL (13.0-17.5); Hypochromasia Slight; MCH 35.1 pg (25.0-35.0); MCHC 33.8 g/dL (31.0-37.0); MCV 103.7 fL (80.0-100.0); Macrocytosis Marked; Mean Platelet Volume 7.6; Platelet Count 348 k/uL (150-450); Poikilocytosis Moderate; RBC 2.55 m/uL (4.30-5.90)
[2018-11-21 08:05] VITALS: BP 150/66; PULSE 68
[2018-11-21 08:05] LABS: RDW 25.6 % (11.5-15.5)
[2018-11-21 08:46] LABS: Band Neutrophils % 8 %; Basophils # (M) 0.15 k/uL (0-0.2); Metamyelocytes % 8 %; Myelocytes % 10 %; Neutrophils % (M) 55 %; Nucleated Red Blood Cells 5 /100 WBC (0-0); Total Cells Counted 200
[2018-11-21 08:47] LABS: Eosinophils # (M) 0.29 k/uL (0-0.7); Lymphocytes # (M) 1.47 k/uL (1.0-4.8); Metamyelocytes # (M) 1.18 k/uL (0); Monocytes # (M) 1.18 k/uL (0-1.0); Myelocytes # (M) 1.47 k/uL (0); Polychromasia Present; Tear Drop Cells Present; WBC 14.7 k/uL (3.8-10.6)
== END 2018-11-21 08:43 | disposition home or self-care (01) ==
LOC: OR 05:45
PROVIDERS: ATTEND Internal Medicine Hematology & Oncology
DX: D53.9 Nutritional anemia, unspecified (principal); D47.1 Chronic myeloproliferative disease; Z80.1 Family history of malignant neoplasm of trachea, bronchus and lung; Z87.891 Personal history of nicotine dependence; I25.119 Atherosclerotic heart disease of native coronary artery with unspecified angina pectoris; I11.0 Hypertensive heart disease with heart failure; I50.9 Heart failure, unspecified; Z95.1 Presence of aortocoronary bypass graft; I48.92 Unspecified atrial flutter; I73.9 Peripheral vascular disease, unspecified; I27.20 Pulmonary hypertension, unspecified; G25.81 Restless legs syndrome; K21.9 Gastro-esophageal reflux disease without esophagitis; Z79.02 Long term (current) use of antithrombotics/antiplatelets; Z79.82 Long term (current) use of aspirin; Z79.899 Other long term (current) drug therapy; Z79.891 Long term (current) use of opiate analgesic
CPT/HCPCS: 85025; 38222; J2001; J2704

== ENCOUNTER 2019-02-04 06:57 | Day surgery (SDC) | payer MEDICARE ==
[2019-01-29 11:53] VITALS: BMI 28.1
[2019-02-04] MEDS ORDERED: ASPIRIN 325 MG TAB PO STA (07:52)
[2019-02-04] MEDS ORDERED: ALPRAZolam 0.5 MG TAB PO PRN (07:52)
[2019-02-04] MEDS ORDERED: ATORVASTATIN 80 MG TAB PO STA (07:52)
[2019-02-04] MEDS ORDERED: SODIUM CHLORIDE 0.9% 1,000 ML in EMPTY BAG 1 BAG IV ONE (07:52)
[2019-02-04] MEDS ORDERED: ALPRAZolam 0.25 MG TAB PO PRN (07:52)
[2019-02-04] MEDS ORDERED: NITROGLYCERIN SL TABS 0.4 MG TAB SUBLINGUAL PRN (07:52)
[2019-02-04] MEDS ORDERED: SODIUM CHLORIDE 0.9% 1,000 ML IV ONE (09:22)
[2019-02-04] MEDS ORDERED: LIDOCAINE 1% INJ 10MG/ML (20 ML MDV) ONE (12:31)
[2019-02-04] MEDS ORDERED: MIDAZOLAM 2 MG/2 ML VIAL IV ONE (12:38)
[2019-02-04] MEDS ORDERED: LIDOCAINE 1% INJ 10MG/ML (20 ML MDV) SQ ONE (12:38)
[2019-02-04] MEDS ORDERED: BIVALIRUDIN BOLUS 250 MG/50 ML IV ONE (13:03)
[2019-02-04] MEDS ORDERED: BIVALIRUDIN 250 MG in SODIUM CHLORIDE 0.9% 50 ML IV ONE (13:04)
[2019-02-04] MEDS ORDERED: IOPAMIDOL-370 100ML BTL INJ ONE (13:18)
[2019-02-04] MEDS ORDERED: CLOPIDOGREL 75 MG TAB ONE (13:19)
[2019-02-04] MEDS ORDERED: CLOPIDOGREL 75 MG TAB PO ONE (13:23)
[2019-02-04] MEDS ORDERED: IOPAMIDOL-370 50ML BTL INJ ONE (13:24)
[2019-02-04] MEDS ORDERED: RX INFO: IV CONTRAST WAS GIVEN 1 EACH MISC MISCELLANE PRN (13:37)
[2019-02-04] MEDS ORDERED: MAG HYDROX/AL HYDROX/SIMETH 30 ML CUP PO PRN (13:37)
[2019-02-04] MEDS ORDERED: ATROPINE SULFATE 0.1 MG/ML 10ML SYRINGE IV PRN (13:37)
[2019-02-04] MEDS ORDERED: ZOLPIDEM 5 MG TAB PO PRN (13:37)
[2019-02-04] MEDS ORDERED: PROCRIT PO SCH (13:45)
[2019-02-04 17:25] VITALS: RESP 18
[2019-02-04] MEDS: METOPROLOL TARTRATE 50 MG TAB PO SCH ×2 (17:28→21:02)
[2019-02-04] MEDS: SODIUM CHLORIDE 0.9% 1,000 ML IV SCH (17:30)
[2019-02-04] MEDS ORDERED: DOXAZOSIN 4 MG TAB PO SCH (21:00)
[2019-02-04] MEDS ORDERED: ATORVASTATIN 80 MG TAB PO SCH (21:00)
[2019-02-04] MEDS: FUROSEMIDE 40 MG TAB PO SCH (21:02)
--- NOTE | 2019-02-04 21:29 | CC ---
CARDIAC CATHETERIZATION REPORT DATE OF SERVICE: 02/04/2019. PROCEDURE: 1. Left heart catheterization and coronary angiography. 2. PTCA and stenting of proximal right coronary artery. PERFORMED BY: Dr. Germán Pelayo. SEDATION: Moderate conscious sedation time was 48 minutes. Patient was administered Versed, his oxygen saturation, hemodynamics and EKG were monitored closely. CLINICAL INFORMATION: Mr. Jacques Burk is a 79-year-old gentleman with a known history of CAD, peripheral artery disease, myelodysplastic syndrome with probably some chronic lymphatic leukemia type picture as well. He has been having increasing symptoms of chest pain, shortness of breath and heaviness in the chest, even with mild activity. His hemoglobin has been more than 9.5 and this happened and therefore I recommended cardiac catheterization after due discussion. This patient had an aortocoronary bypass surgery in November of 2007 with a CHARLES to LAD, vein graft to the diagonal and vein graft to the obtuse marginal branch of circumflex. In October 2014, I performed a cardiac cath which revealed that the vein graft to the diagonal was occluded. His vein graft to the obtuse marginal was patent, but there was diffuse disease in the other branches of the circumflex. The distal circumflex was being filled from the graft. The CHARLES to LAD was patent, but there was diffuse disease in the distal LAD beyond insertion site. RCA was nondominant and had mild diffuse disease. He was advised medical therapy but because of increasing symptoms of angina, he was advised coronary angiography. Patient also had a right common femoral endarterectomy and SFA percutaneous intervention with atherectomy by Dr. Britton. Endarterectomy was performed by Dr. Cline. This was performed in March of 2018. He also had some intervention surgical as well as percutaneous on the left iliac and femoral system as well. PROCEDURE NOTE: Under local anesthesia and strict aseptic precautions, a 6-Kittitian introducer was placed in the right femoral artery. A 6-Kittitian introducer was placed by using a dilators. Iliac angiography revealed that this was a good size vessel and there was some disease in the superficial femoral, but the common femoral was of good caliber. I performed coronary angiography using a standard left Brady catheter and a Mallika catheter. Selective injection of the right coronary artery, the 2 vein grafts as well as the as the CHARLES was performed with a Mallika catheter. After this, I proceeded with intervention of the RCA which was a nondominant vessel but had a significant acute marginal that was supplying a sizable amount of myocardium was actually being filled from collaterals from the left system. LV-gram was not performed. CARDIAC CATHETERIZATION FINDINGS: The left ventricular end-diastolic pressure was about 14 mmHg without any gradient across aortic valve. CORONARY ANGIOGRAPHY FINDINGS: RIGHT CORONARY ARTERY: Technically this is a nondominant vessel, but compared to the previous study, the caliber of the vessel has increased a lot. Proximally, it is of good size and distally divides into multiple smaller branches, but there was a large acute marginal that runs laterally, provides collaterals to the distal branches of circumflex as well. Right coronary artery therefore has an 80% proximal stenosis noted and there is a good-sized acute marginal branch that supplies a fair amount of myocardium. LEFT MAIN CORONARY ARTERY: This vessel has about a 30-40 percent diffuse lesion, heavily calcified and then bifurcates into LAD and circumflex. LEFT ANTERIOR DESCENDING CORONARY ARTERY. There is an ostial lesion of 90% and diffuse disease in the LAD and diagonal branches has no significant disease. However, the LAD ostium and proximal LAD is heavily calcified, highly diseased with multiple areas of 70% to 90% blockage. Diagonal has no significant disease, but the diagonal graft is known to be occluded. LEFT POSTERIOR CIRCUMFLEX CORONARY ARTERY: This vessel is totally occluded with limited antegrade flow. Obtuse marginal has some competitive flow. Saphenous vein graft to the obtuse marginal branch of circumflex: This graft is widely patent in its origin, insertion site as well as in the body of the graft. Opacified circumflex marginal is free of significant disease. It opacifies the distal branches of circumflex including the PLV branch of circumflex. Saphenous vein graft to the diagonal branch: This graft is totally occluded, not seen. Left internal mammary artery graft to LAD: This graft is widely patent in its origin, course and insertion site. Opacifies the LAD both antegrade and retrograde and opacifies the septal branches as well as the distal LAD has mild diffuse disease but no critical stenosis is noted. Beyond the insertion site, the LAD caliber is somewhat smaller and diffusely diseased. LEFT VENTRICULOGRAM: This was not performed. FINAL IMPRESSION: This patient has an 80-85 percent stenosis in the proximal nondominant RCA which provides a good-sized acute marginal branch that supplies a fair amount of myocardium. The left main, LAD and circumflex are highly diseased. The CHARLES to LAD is patent with diffuse disease in the distal LAD. The vein graft to obtuse marginal is patent. It also fills the PLV branch of circumflex. Vein graft to the diagonal is totally occluded. Filling pressures are normal and there is no gradient across aortic valve. RECOMMENDATIONS: I recommended PCI of RCA and proceeded to perform this in the same setting. PCI PROCEDURE DETAILS: A standard right Brady guide catheter was used to cannulate the right coronary artery. A run-through wire was used to cross the lesion. A 2.25 caliber 12 mm Trek balloon was used to pre-dilate the lesion. A 2.5 caliber 12 mm Xience stent was deployed at 12 atmospheres. Excellent angiographic result was achieved. Patient had chest pain and precordial ST depression. The wire and the catheter were taken out. An Angio-Seal device was used to secure hemostasis and patient was sent to the room in stable condition. The pulse in the distal right lower extremity was good. The patient tolerated procedure well without complications. MMODL / IJN: [id number] /
[2019-02-05] MEDS: SODIUM CHLORIDE 0.9% 1,000 ML IV SCH (05:34)
[2019-02-05 06:45] LABS: Anisocytosis Marked; HCT 29.2 % (39.0-53.0); HGB 9.8 gm/dL (13.0-17.5); Hypochromasia Moderate; MCH 34.1 pg (25.0-35.0); MCHC 33.4 g/dL (31.0-37.0); Macrocytosis Marked; Mean Platelet Volume 9.4; Platelet Count 312 k/uL (150-450); Poikilocytosis Marked; RBC 2.86 m/uL (4.30-5.90); RDW 24.9 % (11.5-15.5)
[2019-02-05 06:48] LABS: Anion Gap 6 mmol/L; Blood Urea Nitrogen 25 mg/dL (9-20); Calcium 8.5 mg/dL (8.4-10.2); Carbon Dioxide 25 mmol/L (22-30); Chloride 104 mmol/L (98-107); Glucose 94 mg/dL (74-99); Sodium 135 mmol/L (137-145)
[2019-02-05] MEDS: METOPROLOL TARTRATE 50 MG TAB PO SCH (06:59)
[2019-02-05 07:14] LABS: Band Neutrophils % 26 %; Eosinophils # (M) 0.26 k/uL (0-0.7); Lymphocytes # (M) 2.36 k/uL (1.0-4.8); Metamyelocytes # (M) 0.26 k/uL (0); Metamyelocytes % 1 %; Monocytes # (M) 0.52 k/uL (0-1.0); Myelocytes # (M) 0.52 k/uL (0); Myelocytes % 2 %; Neutrophils % (M) 59 %; Nucleated Red Blood Cells 11 /100 WBC (0-0); Total Cells Counted 200; WBC 26.2 k/uL (3.8-10.6)
[2019-02-05 07:15] LABS: Anisocytosis (M) Present; Ovalocytes Present; Poikilocytosis (M) Present; Polychromasia Present; RBC Fragments Present; Toxic Granulation Present
[2019-02-05 07:16] LABS: Tear Drop Cells Present
--- NOTE | 2019-02-05 07:27 | DS ---
DISCHARGE SUMMARY DATE OF ADMISSION: 02/04/2019 DATE OF DISCHARGE: 02/05/2019. DIAGNOSES: 1. Coronary artery disease with prior bypass surgery. 2. Peripheral arterial disease. 3. Hypertension. 4. Hyperlipidemia. 5. Paroxysmal atrial flutter fibrillation syndrome. 6. Anemia secondary to myelodysplastic syndrome. Mr. Burk was having symptoms of chest tightness, pressure and shortness of breath and he was brought in for a cardiac cath yesterday. Procedure was performed from right femoral approach. His CHARLES to LAD and vein graft to the obtuse marginal were patent but there was diffuse disease in the other [place] branches. The nondominant RCA which was a fairly decent caliber and had a good-sized acute marginal had a significant lesion and this was addressed with a 2.5 caliber 12 mm Xience drug-eluting stent with excellent result. He was also found to be in atrial flutter with 2:1 block. The patient is not anticoagulated and is fully aware of the risks because of the fact he has significant anemia requiring blood transfusions and iron transfusions. However, he is aware of the risk and we will leave him on a combination of aspirin and Plavix and I will see him in the office on Saturday at 4 p.m. and will have discussion with the mill platform supervisor to see if we can anticoagulate him for about 3 months or so and in that time frame if he remains in atrial flutter fibrillation syndrome he will have cardioversion. I explained this in detail to the patient. We will continue current medications including beta blockers. Rate control is optimal. Heart rate is in the 80s at this time. Blood pressure is 118/70, pulse rate is about 82, irregular. JVD 1 cm is noted. S1, S2 with a short systolic murmur is audible. Lungs are clear. Abdomen is soft. Right groin is clean and dry with good pulse. Central nervous system is good. Laboratory data is good. EKG revealed flutter with 3:1 conduction. Plan is to discharge patient around 10:00. I will see him on Saturday and we will address the issue with atrial flutter fibrillation syndrome as an outpatient. MMODL / IJN: [id number] /
[2019-02-05] MEDS ORDERED: PANTOPRAZOLE 40 MG TABLET PO SCH (07:30)
[2019-02-05] MEDS: FUROSEMIDE 40 MG TAB PO SCH (08:14)
[2019-02-05 08:23] VITALS: BP 109/53; PULSE 96; TEMP 99
[2019-02-05] MEDS ORDERED: ASPIRIN 81 MG PO SCH (09:00)
[2019-02-05] MEDS ORDERED: CLOPIDOGREL 75 MG TAB PO SCH (09:00)
[2019-02-05] MEDS ORDERED: SPIRONOLACTONE 25 MG TAB PO SCH (09:00)
[2019-02-05] MEDS ORDERED: ISOSORBIDE MONONITRATE ER 30 MG TAB.ER.24H PO SCH (09:00)
== END 2019-02-05 09:27 | disposition home or self-care (01) ==
LOC: CATHCVL 06:57 → 3SCARD 13:29 → CATHCVL 02-05 09:27
PROVIDERS: ATTEND Internal Medicine Interventional Cardiology
DX: I25.110 Atherosclerotic heart disease of native coronary artery with unstable angina pectoris (principal); I25.810 Atherosclerosis of coronary artery bypass graft(s) without angina pectoris; I25.82 Chronic total occlusion of coronary artery; I10 Essential (primary) hypertension; Z72.0 Tobacco use; I48.91 Unspecified atrial fibrillation; I48.92 Unspecified atrial flutter; I99.8 Other disorder of circulatory system; E78.5 Hyperlipidemia, unspecified; E78.00 Pure hypercholesterolemia, unspecified; D46.9 Myelodysplastic syndrome, unspecified; I73.9 Peripheral vascular disease, unspecified; Z79.02 Long term (current) use of antithrombotics/antiplatelets; Z79.82 Long term (current) use of aspirin; Z79.899 Other long term (current) drug therapy
CPT/HCPCS: 93459; 80048; 85025; C9600; C1760; C1887; C1725; C1769 ×3; C1894; C1874; J2250; J2001; J0583; Q9967 ×2

== ENCOUNTER 2019-02-12 13:52 | Inpatient (IN) | payer MEDICARE ==
[2019-02-12] MEDS ORDERED: PANTOPRAZOLE 40 MG/10 ML VIAL IVP STA (13:53)
[2019-02-12] MEDS ORDERED: SODIUM CHLORIDE 0.9% 500 ML 500 ML IV STA (13:53)
--- NOTE | 2019-02-12 14:24 | ED ---
General Adult HPI - General Stated complaint: GI Bleed Time Seen by Provider: 02/12/19 13:53 Source: patient, EMS, RN notes reviewed, old records reviewed Mode of arrival: EMS Limitations: no limitations - History of Present Illness Initial comments: 79-year-old male presents with suspected GI bleed. Patient has history of atrial fibrillation, he was reinitiated on anticoagulation with Xarelto earlier this week. He's had 3 days of progressively darkening stool. He reports previous history of gastrointestinal hemorrhage requiring significant transfusion. He was reinitiated on anticoagulation with plan for cardioversion in the next several weeks. Patient denies chest pain. He does complain of some mild dyspnea and lightheadedness. He is also currently on aspirin and Plavix. - Related Data Home Medications Medication Instructions Recorded Confirmed Atorvastatin [Lipitor] 40 mg PO DAILY 09/27/14 02/12/19 Terazosin [Hytrin] 5 mg PO DAILY 09/27/14 02/12/19 Spironolactone [Aldactone] 25 mg PO DAILY 11/12/17 02/12/19 Pantoprazole Sodium [Protonix] 40 mg PO DAILY 07/14/18 02/12/19 Furosemide [Lasix] 40 mg PO BID@0200,1400 11/20/18 02/12/19 Isosorbide Mononitrate [Isosorbide 15 mg PO DAILY 01/29/19 02/12/19 Mononitrate ER] Metoprolol Tartrate [Lopressor] 50 mg PO TID-W/MEALS 02/12/19 02/12/19 Rivaroxaban [Xarelto] 15 mg PO HS 02/12/19 02/12/19 rOPINIRole HCL [Requip] 1 mg PO HS 02/12/19 02/12/19 Previous Rx's Medication Instructions Recorded Aspirin 81 mg PO DAILY #30 chew 04/07/18 Clopidogrel [Plavix] 75 mg PO DAILY #30 tab 04/07/18 Allergies Allergy/AdvReac Type Severity Reaction Status Date / Time No Known Allergies Allergy Verified 02/12/19 14:35 Review of Systems ROS Statement: Those systems with pertinent positive or pertinent negative responses have been documented in the HPI. ROS Other: All systems not noted in ROS Statement are negative. 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 tom inguinal hernia repair, coronary artery bypass surgery, EGD, colonoscopy Past Anesthesia/Blood Transfusion Reactions: No Reported Reaction Past Psychological History: No Psychological Hx Reported Smoking Status: Former smoker Past Alcohol Use History: Rare Past Drug Use History: None Reported - Past Family History Brother(s) Family Medical History: Cancer Additional Family Medical History / Comment(s): 2 with lung and 1 with prostate Mother Family Medical History: Myocardial Infarction ([place]) Father History Unknown: Yes Additional Family Medical History / Comment(s): AT AGE 83 FROM "[place] OF [place] ARTER[place]" General Exam Limitations: no limitations General appearance: alert, in no apparent distress Head exam: Present: atraumatic, normocephalic Eye exam: Present: normal appearance ENT exam: Present: normal exam Neck exam: Present: normal inspection. Absent: tenderness, meningismus Respiratory exam: Present: normal lung sounds bilaterally. Absent: respiratory distress, wheezes Cardiovascular Exam: Present: tachycardia, irregular rhythm GI/Abdominal exam: Present: soft. Absent: distended, tenderness, guarding Rectal exam: Present: normal rectal tone, black stool Extremities exam: Present: normal inspection, normal capillary refill. Absent: pedal edema Neurological exam: Present: alert, oriented X3, CN II-XII intact. Absent: motor sensory deficit Psychiatric exam: Present: normal affect, normal mood Skin exam: Present: pallor. Absent: cyanosis, diaphoretic Course Vital Signs 02/12/19 02/12/19 02/12/19 13:55 14:30 15:30 Temperature 97.9 F Pulse Rate 92 90 90 Respiratory 18 18 18 Rate Blood Pressure 103/53 109/61 104/63 O2 Sat by Pulse 99 99 100 Oximetry EKG Findings - EKG Comments: EKG Findings:: EKG: Atrial flutter rate of 95, QRS duration 98, QTC 457, no ST segment elevation, there is ST segment depression in the precordial leads. Similar compared to previous in February 2019. Medical Decision Making - Medical Decision Making 79-year-old male presenting with melanotic stool on anticoagulation, antiplatelet agent. Patient is pale, stable vitals, frankly melanotic stool on rectal exam. Hemoglobin 6.8 down from recent of 9.8. Patient transfused 2 units in the emergency department. He is initiated on proton pump inhibitor. Case is discussed with both the admitting physician and the log deck tender. Patient will be admitted to a monitored bed, hemoglobin will be repeated after transfusion. - Lab Data Result diagrams: 02/12/19 14:08 02/12/19 14:08 Lab Results 02/12/19 02/12/19 02/12/19 Range/Units 14:08 14:08 14:08 WBC 45.6 H (3.8-10.6) k/uL RBC 2.03 L (4.30-5.90) m/uL Hgb 6.8 L* D (13.0-17.5) gm/dL Hct 20.9 L (39.0-53.0) % MCV 103.0 H (80.0-100.0) fL MCH 33.2 (25.0-35.0) pg MCHC 32.3 (31.0-37.0) g/dL RDW 25.7 H (11.5-15.5) % Plt Count 318 (150-450) k/uL Neutrophils % (Manual) 75 % Band Neutrophils % 8 % Lymphocytes % (Manual) 7 % Monocytes % (Manual) 3 % Eosinophils % (Manual) 1 % Metamyelocytes % 3 % Myelocytes % 3 % Promyelocytes % 1 % Neutrophils # (Manual) 37.80 H (1.3-7.7) k/uL Lymphocytes # (Manual) 3.19 (1.0-4.8) k/uL Monocytes # (Manual) 1.37 H (0-1.0) k/uL Eosinophils # (Manual) 0.46 (0-0.7) k/uL Metamyelocytes # (Man) 1.37 H (0) k/uL Myelocytes # (Manual) 1.37 H (0) k/uL Promyelocytes # (Man) 0.46 H (0) k/uL Nucleated RBCs 7 H (0-0) /100 WBC Toxic Granulation Present Polychromasia Present Hypochromasia Marked Poikilocytosis Marked Anisocytosis Marked Macrocytosis Marked Tear Drop Cells Present Fragmented RBCs Present PT 18.0 H (9.0-12.0) sec INR 1.8 H (<1.2) APTT 29.1 (22.0-30.0) sec Sodium 135 L (137-145) mmol/L Potassium 3.8 (3.5-5.1) mmol/L Chloride 104 (98-107) mmol/L Carbon Dioxide 21 L (22-30) mmol/L Anion Gap 10 mmol/L BUN 46 H (9-20) mg/dL Creatinine 1.15 (0.66-1.25) mg/dL Est GFR (CKD-EPI)AfAm 70 (>60 ml/min/1.73 sqM) Est GFR (CKD-EPI)NonAf 61 (>60 ml/min/1.73 sqM) Glucose 120 H (74-99) mg/dL Calcium 8.3 L (8.4-10.2) mg/dL Magnesium 1.5 L (1.6-2.3) mg/dL Total Bilirubin 2.6 H (0.2-1.3) mg/dL AST 56 (17-59) U/L ALT 31 (21-72) U/L Alkaline Phosphatase 81 (38-126) U/L Total Protein 5.1 L (6.3-8.2) g/dL Albumin 2.8 L (3.5-5.0) g/dL Stool Occult Blood (Negative) Blood Type Blood Type Recheck Antibody Screen Crossmatch Spec Expiration Date 02/12/19 02/12/19 Range/Units 14:08 14:15 WBC (3.8-10.6) k/uL RBC (4.30-5.90) m/uL Hgb (13.0-17.5) gm/dL Hct (39.0-53.0) % MCV (80.0-100.0) fL MCH (25.0-35.0) pg MCHC (31.0-37.0) g/dL RDW (11.5-15.5) % Plt Count (150-450) k/uL Neutrophils % (Manual) % Band Neutrophils % % Lymphocytes % (Manual) % Monocytes % (Manual) % Eosinophils % (Manual) % Metamyelocytes % % Myelocytes % % Promyelocytes % % Neutrophils # (Manual) (1.3-7.7) k/uL Lymphocytes # (Manual) (1.0-4.8) k/uL Monocytes # (Manual) (0-1.0) k/uL Eosinophils # (Manual) (0-0.7) k/uL Metamyelocytes # (Man) (0) k/uL Myelocytes # (Manual) (0) k/uL Promyelocytes # (Man) (0) k/uL Nucleated RBCs (0-0) /100 WBC Toxic Granulation Polychromasia Hypochromasia Poikilocytosis Anisocytosis Macrocytosis Tear Drop Cells Fragmented RBCs PT (9.0-12.0) sec INR (<1.2) APTT (22.0-30.0) sec Sodium (137-145) mmol/L Potassium (3.5-5.1) mmol/L Chloride (98-107) mmol/L Carbon Dioxide (22-30) mmol/L Anion Gap mmol/L BUN (9-20) mg/dL Creatinine (0.66-1.25) mg/dL Est GFR (CKD-EPI)AfAm (>60 ml/min/1.73 sqM) Est GFR (CKD-EPI)NonAf (>60 ml/min/1.73 sqM) Glucose (74-99) mg/dL Calcium (8.4-10.2) mg/dL Magnesium (1.6-2.3) mg/dL Total Bilirubin (0.2-1.3) mg/dL AST (17-59) U/L ALT (21-72) U/L Alkaline Phosphatase (38-126) U/L Total Protein (6.3-8.2) g/dL Albumin (3.5-5.0) g/dL Stool Occult Blood Positive (Negative) Blood Type A Positive Blood Type Recheck No Antibody Screen NEGATIVE Crossmatch See Detail Spec Expiration Date 02/15/2019 - 6524 Critical Care Time Critical Care Time: Yes Total Critical Care Time: 35 Disposition Clinical Impression: GI bleed, Anemia, Melena, Leukocytosis Disposition: ADMITTED IP TO THIS [facility] Condition: Stable Is patient prescribed a controlled substance at d/c from ED?: No Referrals: Leon Franklin MD [Primary Care Provider] - 1-2 days Decision to Admit Reason: Admit from EC Decision Date: 02/12/19 Decision Time: 15:48
[2019-02-12 14:44] LABS: Anisocytosis Marked; HCT 20.9 % (39.0-53.0); Hypochromasia Marked; MCH 33.2 pg (25.0-35.0); MCHC 32.3 g/dL (31.0-37.0); Macrocytosis Marked; Mean Platelet Volume 9.9; Platelet Count 318 k/uL (150-450); Poikilocytosis Marked; RBC 2.03 m/uL (4.30-5.90)
[2019-02-12 14:48] LABS: Albumin 2.8 g/dL (3.5-5.0); Calcium 8.3 mg/dL (8.4-10.2); Magnesium 1.5 mg/dL (1.6-2.3); Potassium 3.8 mmol/L (3.5-5.1); Total Bilirubin 2.6 mg/dL (0.2-1.3); Total Protein 5.1 g/dL (6.3-8.2)
[2019-02-12] MEDS ORDERED: DEXAMETHASONE SOD PHOSPHATE 10 MG/ML 1 ML VIAL IV STA (14:48)
[2019-02-12 14:50] LABS: INR 1.8 (<1.2); Partial Thromboplastin Time 29.1 sec (22.0-30.0)
[2019-02-12 14:51] LABS: HGB 6.8 gm/dL (13.0-17.5); RDW 25.7 % (11.5-15.5)
[2019-02-12 15:30] LABS: Band Neutrophils % 8 %; Eosinophils # (M) 0.46 k/uL (0-0.7); Lymphocytes # (M) 3.19 k/uL (1.0-4.8); Metamyelocytes # (M) 1.37 k/uL (0); Metamyelocytes % 3 %; Monocytes # (M) 1.37 k/uL (0-1.0); Myelocytes # (M) 1.37 k/uL (0); Myelocytes % 3 %; Neutrophils % (M) 75 %; Nucleated Red Blood Cells 7 /100 WBC (0-0); Polychromasia Present; Promyelocytes # (M) 0.46 k/uL (0); Promyelocytes % 1 %; RBC Fragments Present; Total Cells Counted 200; WBC 45.6 k/uL (3.8-10.6)
[2019-02-12 15:31] LABS: Tear Drop Cells Present; Toxic Granulation Present
[2019-02-12] MEDS ORDERED: NALOXONE 0.4 MG/ML 1 ML VIAL IV PRN (15:37)
[2019-02-12] MEDS: SODIUM CHLORIDE 0.9% 1,000 ML IV SCH (16:47)
[2019-02-12] MEDS ORDERED: MELATONIN 3 MG TABLET PO PRN (17:38)
[2019-02-12] MEDS ORDERED: ONDANSETRON 4 MG/2 ML VIAL IVP PRN (17:38)
[2019-02-12] MEDS ORDERED: FUROSEMIDE 10 MG/ML 4 ML VIAL IV PRN (17:44)
--- NOTE | 2019-02-12 17:48 | P.HPIM ---
History of Present Illness H&P Date: 02/12/19 Chief Complaint: black tarry stools Patient is a 79-year-old male past medical history of prior GI bleed requiring 11 units of packed red blood cells per the patient, myeloproliferative disorder requiring recurrent transfusions and weekly Procrit, atrial fibrillati on, coronary artery disease with recent stent placement on 02/04/19 to the right coronary artery, hypertension, and dyslipidemia who presented to the emergency department with complaints of dark tarry stools. Patient was seen by Dr. Pelayo last week had a stent placed. They wanted to do a cardioversion and he was therefore started on Xarelto this Saturday. Dr. Pelayo had cleared this with Dr. Miller. Patient started noting dark tarry stools the day after starting Xarelto. In the ER the patient underwent an extensive evaluation. His vital signs are found within normal limits on admission. He was found to have a hemoglobin of 6.8 with hematocrit of 20.9. His total white blood cells were 45.6 which is elevated. His found to be hypomagnesemic at 1.5 and his INR was slightly elevated at 1.8-32 units of packed red blood cells ER and was admitted for further care. Patient seen and examined at bedside in the emergency department. He reports that Dr. Pelayo started him on Xarelto this Saturday. He took a dose on Saturday he noted some dark tarry looking stools. They have persistently gotten worse over the last 2 days. He has now had some crampy lower abdominal pain that does not radiate central. He has had decreased appetite and hasn't ate almost nothing for the last 3 days. He reports that today he had some nausea after drinking a couple coffee and vomited 1. He has had some increasing shortness of breath as well as dizziness over the last 2 days. He reports feeling very lethargic. 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 He follows up with Dr. Miller once monthly and gets weekly Procrit injections. He had been receiving chronic transfusions but states he has not needed any in the last 3 months. She reports that he was hospitalized for a GI bleed back in April was seen by Dr. Kwan at upper, lower, and capsule endoscopies. They did not find a definitive source of his bleeding at that point in time but he was taken off of Xarelto. He was maintained on aspirin and Plavix secondary to his known coronary and peripheral arterial disease. He had been tolerating those well. He denies any other changes in his medication. He denies any unusual weight loss or weight gain. He does report some increased edema for the last 3 days. He has no other complaints currently. Review of Systems Pertinent positives and negatives as discussed in HPI, a complete review of systems was performed and all other systems are negative. Past Medical History Past Medical History: Atrial Flutter, Blood Disorder, Coronary Artery Disease (CAD), Heart Failure, GERD/Reflux, GI Bleed, Hyperlipidemia, Hypertension, Myocardial Infarction ([place]), Prostate Disorder, Vascular Disorder Additional Past Medical History / Comment(s): myeloproliferative disorder(leukocytosis and thrombocytosis), esophagitis, severe PAD, severe pulmonary hypertension , right-sided heart failure with severe pulmonary hypertension, BPH, Exercise intolerance Last Myocardial Infarction Date:: 2017 History of Any Multi-Drug Resistant Organisms: Acinetobacter (MDRO), MRSA Date of last positivie culture/infection: 05/12/18-MRSA MDRO Source:: Foot-MRSA Past Surgical History: Cholecystectomy, Coronary Bypass/CABG, Heart Catheterization, Hernia Repair Additional Past Surgical History / Comment(s): Cardiac catheterization on 10/04/2014, right femoral artery/common femoral artery endarterectomy. 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 tom inguinal hernia repair, coronary artery bypass surgery, EGD, colonoscopy. Cath with PCI to RCA 02/04/19 Past Anesthesia/Blood Transfusion Reactions: No Reported Reaction Past Psychological History: No Psychological Hx Reported Smoking Status: Former smoker Past Alcohol Use History: Rare Past Drug Use History: None Reported Additional History: Lives with , no assistive devices. Uses a urinal at night due to nocturia - Past Family History Brother(s) Family Medical History: Cancer Additional Family Medical History / Comment(s): 2 with lung and 1 with prostate Mother Family Medical History: Myocardial Infarction ([place]) Father History Unknown: Yes Additional Family Medical History / Comment(s): AT AGE 83 FROM "HARDENING OF THE ARTERIES" Medications and Allergies Home Medications Medication Instructions Recorded Confirmed Type Atorvastatin [Lipitor] 40 mg PO DAILY 09/27/14 02/12/19 History Terazosin [Hytrin] 5 mg PO DAILY 09/27/14 02/12/19 History Spironolactone [Aldactone] 25 mg PO DAILY 11/12/17 02/12/19 History Aspirin 81 mg PO DAILY #30 chew 04/07/18 02/12/19 Rx Clopidogrel [Plavix] 75 mg PO DAILY #30 tab 04/07/18 02/12/19 Rx Pantoprazole Sodium [Protonix] 40 mg PO DAILY 07/14/18 02/12/19 History Furosemide [Lasix] 40 mg PO BID@0200,1400 11/20/18 02/12/19 History Isosorbide Mononitrate [Isosorbide 15 mg PO DAILY 01/29/19 02/12/19 History Mononitrate ER] Metoprolol Tartrate [Lopressor] 50 mg PO TID-W/MEALS 02/12/19 02/12/19 History Rivaroxaban [Xarelto] 15 mg PO HS 02/12/19 02/12/19 History rOPINIRole HCL [Requip] 1 mg PO HS 02/12/19 02/12/19 History Allergies Allergy/AdvReac Type Severity Reaction Status Date / Time No Known Allergies Allergy Verified 02/12/19 14:35 Physical Exam Osteopathic Statement: *. No significant issues noted on an osteopathic structural exam other than those noted in the History and Physical/Consult. Vitals: Vital Signs Temp Pulse Resp BP Pulse Ox 02/12/19 16:30 90 18 109/62 98 02/12/19 15:30 90 18 104/63 100 02/12/19 14:30 90 18 109/61 99 02/12/19 13:55 97.9 F 92 18 103/53 99 Intake and Output 02/12/19 02/12/19 02/12/19 06:59 14:59 22:59 Other: Weight 81.102 kg General: Ill-appearing, frail, no distress, appears at stated age, normal weight Derm: Multiple areas of ecchymoses in various stages of healing, 3 small c ircular lesions with central clearing and erythema right chest wall-patient states he gets these after being exposed to tape/leads. no unusual ecchymoses, warm, dry Head: atraumatic, normocephalic, symmetric Eyes: EOMI, no lid lag, anicteric sclera, pupils equal round reactive to light, conjunctival pallor ENT: Nose and ears atraumatic, no thrush, no pharyngeal erythema Neck: No thyromegaly, no cervical lymphadenopathy, trachea midline, supple Mouth: no lip lesion, mucus membranes dry Cardiovascular: S1S2 reg, no murmur, positive posterior tibial pulse bilateral, trace edema bilateral lower extremities, capillary refill less than 2 seconds Lungs: Increased breath sounds bilateral bases, no rhonchi, no rales , no accessory muscle use Abdominal: soft, nontender to palpation, no guarding, no appreciable organomegaly, normal bowel sounds Ext: no gross muscle atrophy, muscle strength 4 out of 5 in all 4 extremities grossly, no contractures, Neuro: CN II-XI grossly intact, light touch intact all 4 extremities, finger to nose within normal limits, Psych: Alert, oriented, appropriate affect Results CBC & Chem 7: 02/12/19 14:08 02/12/19 14:08 Labs: Abnormal Lab Results - Last 24 Hours (Table) 02/12/19 02/12/19 02/12/19 Range/Units 14:08 14:08 14:08 WBC 45.6 H (3.8-10.6) k/uL RBC 2.03 L (4.30-5.90) m/uL Hgb 6.8 L* D (13.0-17.5) gm/dL Hct 20.9 L (39.0-53.0) % MCV 103.0 H (80.0-100.0) fL RDW 25.7 H (11.5-15.5) % Neutrophils # (Manual) 37.80 H (1.3-7.7) k/uL Monocytes # (Manual) 1.37 H (0-1.0) k/uL Metamyelocytes # (Man) 1.37 H (0) k/uL Myelocytes # (Manual) 1.37 H (0) k/uL Promyelocytes # (Man) 0.46 H (0) k/uL Nucleated RBCs 7 H (0-0) /100 WBC PT 18.0 H (9.0-12.0) sec INR 1.8 H (<1.2) Sodium 135 L (137-145) mmol/L Carbon Dioxide 21 L (22-30) mmol/L BUN 46 H (9-20) mg/dL Glucose 120 H (74-99) mg/dL Calcium 8.3 L (8.4-10.2) mg/dL Magnesium 1.5 L (1.6-2.3) mg/dL Total Bilirubin 2.6 H (0.2-1.3) mg/dL Total Protein 5.1 L (6.3-8.2) g/dL Albumin 2.8 L (3.5-5.0) g/dL Crossmatch 02/12/19 Range/Units 14:15 WBC (3.8-10.6) k/uL RBC (4.30-5.90) m/uL Hgb (13.0-17.5) gm/dL Hct (39.0-53.0) % MCV (80.0-100.0) fL RDW (11.5-15.5) % Neutrophils # (Manual) (1.3-7.7) k/uL Monocytes # (Manual) (0-1.0) k/uL Metamyelocytes # (Man) (0) k/uL Myelocytes # (Manual) (0) k/uL Promyelocytes # (Man) (0) k/uL Nucleated RBCs (0-0) /100 WBC PT (9.0-12.0) sec INR (<1.2) Sodium (137-145) mmol/L Carbon Dioxide (22-30) mmol/L BUN (9-20) mg/dL Glucose (74-99) mg/dL Calcium (8.4-10.2) mg/dL Magnesium (1.6-2.3) mg/dL Total Bilirubin (0.2-1.3) mg/dL Total Protein (6.3-8.2) g/dL Albumin (3.5-5.0) g/dL Crossmatch See Detail Thrombosis Risk Factor Assmnt - DVT/VTE Prophylaxis DVT/VTE Prophylaxis: Mechanical Prophylaxis ordered Assessment and Plan Assessment: Acute blood loss anemia secondary to GI bleed -Dark blood per rectum -Hold Xarelto, continue aspirin and Plavix with recent PCI last week -IV PPI twice a day -CBC every 6 hours -2 units of packed red blood cells are ordered but need to be irradiated and will arrive later today. Discussed with LAD having 2 additional units on hold. -GI consult, nothing by mouth after midnight. May have ice chips in the meantime. Myeloproliferative disorder with resulting leukocytosis, thrombocytosis, and anemia -On Procrit once weekly -Consult Dr. Miller for management of blood products -Follow CBC P. Atrial flutter -Rate controlled currently -Telemetry -Hold Xarelto (please notify Dr. Pelayo in AM) -Continue Lopressor but add hold parameters Congestive heart failure, compensated with unknown ejection fraction -Continue with Lasix. Give 1 dose IV in between units of packed red blood cells -Continue with Lopressor and Aldactone. Not chronically on EARNEST inhibitor and we'll not start at this point in time. Hypomagnesemia Replaced IV and recheck in a.m. BPH -Continue with Hytrin, consider Flomax but is following as outpatient Known severe peripheral arterial disease -Continue with aspirin and Plavix, Lipitor Moderate protein malnutrition -Patient currently nothing by mouth, consider dietary consultation once able to have oral intake. Chronic: Hypertension Dyslipidemia Severe pulmonary hypertension Prior GI bleed Esophagitis The patient is admitted with an anticipated greater than 2 midnight stay for evaluation of GI bleed. . Surrogate decision-maker: - Stormy CODE STATUS:Full DVT prophylaxis: SCDs Discussed with: Patient, ED physician Anticipated discharge date: 3-[address]: home A total of 75 minutes was spent on the care of this complex patient more than 50% of the time was spent in counseling and care coordination.
[2019-02-12] MEDS: MAGNESIUM SULFATE-D5W PMX 1 GM in DEXTROSE/WATER 1 100ML.BAG IVPB SCH ×4 (19:55→23:28)
[2019-02-12] MEDS: ACETAMINOPHEN TAB 325 MG TAB PO PRN (21:02)
[2019-02-12] MEDS: PANTOPRAZOLE 40 MG/10 ML VIAL IVP SCH (22:20)
[2019-02-13] MEDS: FUROSEMIDE 40 MG TAB PO SCH ×2 (03:12→16:34)
[2019-02-13 07:32] LABS: Anisocytosis Moderate; HCT 22.7 % (39.0-53.0); Hypochromasia Moderate; MCH 31.3 pg (25.0-35.0); MCV 100.9 fL (80.0-100.0); Macrocytosis Marked; Mean Platelet Volume 10.4; Platelet Count 288 k/uL (150-450); Poikilocytosis Moderate; RBC 2.24 m/uL (4.30-5.90); RDW 23.4 % (11.5-15.5); WBC 44.3 k/uL (3.8-10.6)
[2019-02-13 07:45] LABS: Calcium 7.3 mg/dL (8.4-10.2); Magnesium 2.5 mg/dL (1.6-2.3); Potassium 3.9 mmol/L (3.5-5.1)
[2019-02-13] MEDS: METOPROLOL TARTRATE 50 MG TAB PO SCH ×3 (08:33→19:06)
[2019-02-13] MEDS: ASPIRIN 81 MG PO SCH (08:33)
[2019-02-13] MEDS: ATORVASTATIN 40 MG TAB PO SCH (08:33)
[2019-02-13] MEDS: PANTOPRAZOLE 40 MG/10 ML VIAL IVP SCH ×2 (08:33→22:10)
[2019-02-13] MEDS: CLOPIDOGREL 75 MG TAB PO SCH (08:33)
[2019-02-13 11:48] LABS: Glucose,Whole Blood 133 mg/dL (75-99)
[2019-02-13] MEDS: ISOSORBIDE MONONITRATE ER 15 MG TAB PO SCH (12:03)
--- NOTE | 2019-02-13 12:56 | P.CONS ---
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 Patient was receiving Xarelto prior to admission secondary to a possible cardioversion next week. Last dose of anticoagulation was Saturday. Passing multiple black colored bowel movements with indigestion and epigastric discomfort. Emesis 1 nonbloody. Patient passed several black colored bowel movements as early as this morning. Presently reporting mild epigastric discomfort receiving his third unit of blood. Admission hemoglobin 6.8. WBC 45. INR 1.8. 2 units of blood transfused current hemoglobin is 7. MCV 100. Platelet 288. FOBT positive. BUN 46. Creatinine 1.1 today BUN increased 53. Creatinine 1.1. EGD April reported long segment Wilson's esophagus with no evidence of esophagitis or bleeding early stricture noted in the proximal part of the Wilson's esophagus but did not impede the passage of the scope. Small bowel capsule endoscopy April 2018 incomplete after 3 hours capsule did not progress however what was evaluated identified no evidence of small bowel bleeding. He also reports a previous history of small bowel capsule ENDOSCOPY attempt being incomplete secondary to difficulty swallowing. Last colonoscopy August 2017 internal hemorrhoids sigmoid diverticulosis. Review of Systems Constitutional: Denies fever, chills, sweats, weight gain, or loss. HEENT: Negative for migraines, blurred vision or loss, earaches, drainage, tinnitus, oral mucosal lesions, dysphagia, or odynophagia. Cardiac: Negative for chest pain, arrhythmias, or palpitation. Respiratory: Negative for shortness of breath, hemoptysis, cough, or sputum production. Gastrointestinal: See HPI for pertinent findings. Genitourinary: Negative for hematuria, urgency, frequency, polyuria, dysuria, or penile discharge. Musculoskeletal: Negative for muscle aches, swelling, arthritis, and arthralgias. Neurologic: Negative for stroke or TIA. Endocrine: Negative for thyroid problems. Skin: Negative for rash or itching. Psychiatric: Negative history for depression and anxiety Past Medical History Past Medical History: Atrial Flutter, Blood Disorder, Coronary Artery Disease (CAD), Heart Failure, GERD/Reflux, GI Bleed, Hyperlipidemia, Hypertension, Thomas cardial Infarction ([place]), Prostate Disorder, Vascular Disorder Additional Past Medical History / Comment(s): myeloproliferative disorder(leukocytosis and thrombocytosis), esophagitis, severe PAD, severe pulmonary hypertension , right-sided heart failure with severe pulmonary hypertension, BPH, Exercise intolerance Last Myocardial Infarction Date:: 2017 History of Any Multi-Drug Resistant Organisms: Acinetobacter (MDRO), 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 tom inguinal hernia repair, coronary artery bypass surgery, EGD, colonoscopy. Cath with PCI to RCA 02/04/19 Past Anesthesia/Blood Transfusion Reactions: No Reported Reaction Past Psychological History: No Psychological Hx Reported Additional Psychological History / Comment(s): . . Smoking Status: Former smoker Past Alcohol Use History: Rare Additional Past Alcohol Use History / Comment(s): STARTED SMOKING AT AGE 16 QUIT AT AGE 40 SMOKED 1 1/2 PPD Past Drug Use History: None Reported - Past Family History Brother(s) Family Medical History: Cancer Additional Family Medical History / Comment(s): 2 with lung and 1 with prostate Mother Family Medical History: Myocardial Infarction ([place]) Father History Unknown: Yes Additional Family Medical History / Comment(s): AT AGE 83 FROM "HARDENING OF THE ARTERIES" Medications and Allergies Home Medications Medication Instructions Recorded Confirmed Type Atorvastatin [Lipitor] 40 mg PO DAILY 09/27/14 02/12/19 History Terazosin [Hytrin] 5 mg PO DAILY 09/27/14 02/12/19 History Spironolactone [Aldactone] 25 mg PO DAILY 11/12/17 02/12/19 History Aspirin 81 mg PO DAILY #30 chew 04/07/18 02/12/19 Rx Clopidogrel [Plavix] 75 mg PO DAILY #30 tab 04/07/18 02/12/19 Rx Pantoprazole Sodium [Protonix] 40 mg PO DAILY 07/14/18 02/12/19 History Furosemide [Lasix] 40 mg PO BID@0200,1400 11/20/18 02/12/19 History Isosorbide Mononitrate [Isosorbide 15 mg PO DAILY 01/29/19 02/12/19 History Mononitrate ER] Metoprolol Tartrate [Lopressor] 50 mg PO TID-W/MEALS 02/12/19 02/12/19 History Rivaroxaban [Xarelto] 15 mg PO HS 02/12/19 02/12/19 History rOPINIRole HCL [Requip] 1 mg PO HS 02/12/19 02/12/19 History Allergies Allergy/AdvReac Type Severity Reaction Status Date / Time No Known Allergies Allergy Verified 02/12/19 14:35 Physical Exam Vitals: Vital Signs Temp Pulse Pulse Resp BP BP Pulse Ox 02/13/19 11:58 16 02/13/19 11:32 97.7 F 91 16 90/50 97 02/13/19 11:22 97.8 F 16 88/48 99 02/13/19 08:00 97.1 F L 89 16 95/52 97 02/13/19 05:38 97.7 F 80 19 90/41 99 02/13/19 03:13 97.6 F 88 18 91/42 99 02/13/19 02:48 97.6 F 88 19 86/42 100 02/13/19 02:43 97.2 F L 85 18 86/42 100 02/13/19 02:33 97.7 F 85 19 96/48 98 02/13/19 02:08 97.8 F 85 85/42 97 02/13/19 00:20 97.0 F L 85 18 90/50 99 02/13/19 00:05 97.0 F L 85 20 90/50 100 02/13/19 00:00 97.9 F 85 18 90/51 99 02/12/19 23:35 98.0 F 86 18 91/49 99 02/12/19 23:25 97.7 F 88 18 88/55 99 02/12/19 20:55 90 18 101/53 98 02/12/19 19:30 91 18 104/58 99 02/12/19 19:00 90 18 92/43 98 02/12/19 18:30 90 18 93/58 98 02/12/19 17:30 91 18 101/60 99 02/12/19 16:30 90 18 109/62 98 02/12/19 15:30 90 18 104/63 100 02/12/19 14:30 90 18 109/61 99 02/12/19 13:55 97.9 F 92 18 103/53 99 Intake and Output 02/12/19 02/13/19 02/13/19 22:59 06:59 14:59 Intake Total 1540 0 Output Total 650 400 Balance 890 -400 Intake: Intake, IV Titration 300 Amount Magnesium Sulfate-D5w Pmx 200 1 gm In Dextrose/Water 1 100ml.bag @ 100 mls/hr IVPB Q1H JOSE Rx#: [id number] Sodium Chloride 0.9% 1, 100 000 ml @ 50 mls/hr IV . Q20H JOSE Rx#:[id number] Blood Product 1240 0 Rc Irr As1 Unit 310 [id number] Rc Irr As1 Unit 0 [id number] Rc Irr As1 Unit 310 [id number] Output: Urine 650 400 Other: Voiding Method Urinal Urinal # Voids 1 0 # Bowel Movements 1 Weight 94 kg General appearance: The patient is alert, oriented, appears fatigued no acute distress. HET: Head is normocephalic and atraumatic. Pupils are equal and reactive. Oropharynx is clear without lesions. Neck: Supple without lymphadenopathy. Trachea midline. Heart: S1 S2. Regular rate and rhythm. Lungs: No crackles or wheezes are heard. Abdomen: Soft, nontender, nondistended with bowel sounds. No peritoneal signs. No palpable organomegaly or masses. Extremities: Normal skin color and turgor. No cyanosis, rash, ulceration, club amandeep, or edema. Radial and pedal pulses are 2/4 bilaterally. Neurological: No focal deficits. Strength and sensation are grossly intact. Results CBC & Chem 7: 02/13/19 07:04 02/13/19 07:04 Labs: Abnormal Lab Results - Last 24 Hours (Table) 02/12/19 02/12/19 02/12/19 Range/Units 14:08 14:08 14:08 WBC 45.6 H (3.8-10.6) k/uL RBC 2.03 L (4.30-5.90) m/uL Hgb 6.8 L* D (13.0-17.5) gm/dL Hct 20.9 L (39.0-53.0) % MCV 103.0 H (80.0-100.0) fL RDW 25.7 H (11.5-15.5) % Neutrophils # (Manual) 37.80 H (1.3-7.7) k/uL Monocytes # (Manual) 1.37 H (0-1.0) k/uL Metamyelocytes # (Man) 1.37 H (0) k/uL Myelocytes # (Manual) 1.37 H (0) k/uL Promyelocytes # (Man) 0.46 H (0) k/uL Nucleated RBCs 7 H (0-0) /100 WBC PT 18.0 H (9.0-12.0) sec INR 1.8 H (<1.2) Sodium 135 L (137-145) mmol/L Chloride (98-107) mmol/L Carbon Dioxide 21 L (22-30) mmol/L BUN 46 H (9-20) mg/dL Glucose 120 H (74-99) mg/dL POC Glucose (mg/dL) (75-99) mg/dL Calcium 8.3 L (8.4-10.2) mg/dL Magnesium 1.5 L (1.6-2.3) mg/dL Total Bilirubin 2.6 H (0.2-1.3) mg/dL Total Protein 5.1 L (6.3-8.2) g/dL Albumin 2.8 L (3.5-5.0) g/dL Crossmatch 02/12/19 02/13/19 02/13/19 Range/Units 14:15 07:04 07:04 WBC 44.3 H (3.8-10.6) k/uL RBC 2.24 L (4.30-5.90) m/uL Hgb 7.0 L (13.0-17.5) gm/dL Hct 22.7 L (39.0-53.0) % MCV 100.9 H (80.0-100.0) fL RDW 23.4 H (11.5-15.5) % Neutrophils # (Manual) (1.3-7.7) k/uL Monocytes # (Manual) (0-1.0) k/uL Metamyelocytes # (Man) (0) k/uL Myelocytes # (Manual) (0) k/uL Promyelocytes # (Man) (0) k/uL Nucleated RBCs (0-0) /100 WBC PT (9.0-12.0) sec INR (<1.2) Sodium 135 L (137-145) mmol/L Chloride 108 H (98-107) mmol/L Carbon Dioxide 19 L (22-30) mmol/L BUN 53 H (9-20) mg/dL Glucose 108 H (74-99) mg/dL POC Glucose (mg/dL) (75-99) mg/dL Calcium 7.3 L (8.4-10.2) mg/dL Magnesium 2.5 H (1.6-2.3) mg/dL Total Bilirubin (0.2-1.3) mg/dL Total Protein (6.3-8.2) g/dL Albumin (3.5-5.0) g/dL Crossmatch See Detail 02/13/19 Range/Units 11:47 WBC (3.8-10.6) k/uL RBC (4.30-5.90) m/uL Hgb (13.0-17.5) gm/dL Hct (39.0-53.0) % MCV (80.0-100.0) fL RDW (11.5-15.5) % Neutrophils # (Manual) (1.3-7.7) k/uL Monocytes # (Manual) (0-1.0) k/uL Metamyelocytes # (Man) (0) k/uL Myelocytes # (Manual) (0) k/uL Promyelocytes # (Man) (0) k/uL Nucleated RBCs (0-0) /100 WBC PT (9.0-12.0) sec INR (<1.2) Sodium (137-145) mmol/L Chloride (98-107) mmol/L Carbon Dioxide (22-30) mmol/L BUN (9-20) mg/dL Glucose (74-99) mg/dL POC Glucose (mg/dL) 133 H (75-99) mg/dL Calcium (8.4-10.2) mg/dL Magnesium (1.6-2.3) mg/dL Total Bilirubin (0.2-1.3) mg/dL Total Protein (6.3-8.2) g/dL Albumin (3.5-5.0) g/dL Crossmatch Assessment and Plan (1) GI bleed Narrative/Plan: 79-year-old gentleman with extensive cardiac history maintained on anticoagulation dual antiplatelet therapy recent cardiac stenting presents with active GI bleed melanotic bowel movements abdominal pain with a history of unde rlying myeloproliferative disorder Wilson's esophagus and GI bleed. Acute GI bleed April 2018 status post EGD and limited small bowel capsule endoscopy without obvious sources of bleeding. Colonoscopy 2017 internal hemorrhoids sigmoid diverticulosis. Current Visit: Yes Status: Acute Code(s): K92.2 - GASTROINTESTINAL H EMORRHAGE, UNSPECIFIED SNOMED Code(s): 09211143 (2) CAD (coronary artery disease) Current Visit: Yes Status: Acute Code(s): I25.10 - ATHSCL HEART DISEASE OF [place] CORONARY ARTERY W/O ANG PCTRS SNOMED Code(s): 60194824 (3) H/O heart artery stent Current Visit: Yes Status: Acute Code(s): Z95.5 - PRESENCE OF CORONARY ANGIOPLASTY IMPLANT AND GRAFT SNOMED Code(s): 071235434 (4) History of coronary artery bypass graft Current Visit: Yes Status: Acute Code(s): Z95.1 - PRESENCE OF AORTOCORONARY BYPASS GRAFT SNOMED Code(s): 154035260 (5) Anemia Narrative/Plan: acute blood loss superimposed on chronic anemia of hematologic disease Current Visit: Yes Status: Acute Priority: High Code(s): D64.9 - ANEMIA, UNSPECIFIED SNOMED Code(s): 268946531 (6) Abdominal pain Current Visit: No Status: Acute Code(s): R10.9 - UNSPECIFIED ABDOMINAL PAIN SNOMED Code(s): 73448634 (7) Wilson's esophagus with dysplasia Current Visit: No Status: Acute Code(s): K22.719 - WILSON'S ESOPHAGUS WITH DYSPLASIA, UNSPECIFIED SNOMED Code(s): 0912649956707281 (8) MDS (myelodysplastic syndrome) Current Visit: No Status: Chronic Code(s): D46.9 - MYELODYSPLASTIC SYNDROME, UNSPECIFIED SNOMED Code(s): 026755154 (9) Coagulopathy Current Visit: Yes Status: Acute Code(s): D68.9 - COAGULATION DEFECT, UNSPECIFIED SNOMED Code(s): 80048508 Plan: 1. EGD evaluation possible small bowel capsule endoscopy in am Patient is requesting if small bowel capsule endoscopy has to be repeated to be placed endoscopically previous capsule studies have been incomplete secondary to lack of capsule progressiveness and/or difficulty swallowing. Endoscopic placement of small bowel capsule poses a risk to esophageal injury and/or perforation we'll defer to shirt sewer recommendations after EGD evaluation. 2. Protonix 40 mg twice daily. CBC Q6HR. Citrate of magnesia x 1 at 1700. Keep NPO except meds. The shirt sewer has discussed the risks, benefits and alternative therapies for the above-mentioned procedure and for both sedation/analgesia as well as necessary blood product administration, if indicated, as they pertain to this patient. The patient has indicated understanding and acceptance of the risks and procedures discussed. Thank you for this kind referral and the opportunity to participate in the care of your patient. This consultation was discussed with Dr. Rebolledo. The impression and plan of care have been directed as dictated.
--- NOTE | 2019-02-13 14:27 | P.PN ---
Subjective Progress Note Date: 02/13/19 Principal diagnosis: patient is seen and examined in follow up for GI bleeding patient seen and examined currently receiving blood transfusion , feels overall tired and weak. denies any chest pain or trouble breathing while resting doing nothing. he is NPO at this time. conttinues to report tarry black bowel movements, last one was at 9 am , large amount. no nausea or vomiting, reports diffuse abd discomfort. no fevers no chills. Objective - Vital Signs Vital signs: Vital Signs Temp 97.6 F 02/13/19 12:02 Pulse 88 02/13/19 12:02 Resp 16 02/13/19 12:02 BP 92/49 02/13/19 12:02 Pulse Ox 97 02/13/19 11:32 Intake & Output 02/12/19 02/13/19 02/13/19 18:59 06:59 18:59 Intake Total 1540 0 Output Total 650 400 Balance 890 -400 Weight 81.102 kg 94 kg 94 kg Intake: Intake, IV Titration 300 Amount Magnesium Sulfate-D5w Pmx 200 1 gm In Dextrose/Water 1 100ml.bag @ 100 mls/hr IVPB Q1H [facility] Rx#: [id number] Sodium Chloride 0.9% 1, 100 000 ml @ 50 mls/hr IV . Q20H [facility] Rx#:[id number] Blood Product 1240 0 Rc Irr As1 Unit 310 [id number] Rc Irr As1 Unit 0 [id number] Rc Irr As1 Unit 310 [id number] Output: Urine 650 400 Other: Voiding Method Urinal Urinal # Voids 1 0 # Bowel Movements 1 - Exam General , alert, not in any distress. Chest CTA bilaterally, no wheezing rhonci or rales. CVS normal s1, s2, regular rate and rhythm, no murmurs, no gallops , no rubs, no peripheral edema. capillary refil is immediate over toes. Abd , discomfort to deep palpation throughout, with tenderness at epigastric region , no rebound no rigidity. bowel sounds positive psych alert oriented to place time and person, fair judgment neuro , no focal deficits. - Labs CBC & Chem 7: 02/13/19 07:04 02/13/19 07:04 Labs: Abnormal Lab Results - Last 24 Hours (Table) 02/12/19 02/12/19 02/12/19 Range/Units 14:08 14:08 14:08 WBC 45.6 H (3.8-10.6) k/uL RBC 2.03 L (4.30-5.90) m/uL Hgb 6.8 L* D (13.0-17.5) gm/dL Hct 20.9 L (39.0-53.0) % MCV 103.0 H (80.0-100.0) fL RDW 25.7 H (11.5-15.5) % Neutrophils # (Manual) 37.80 H (1.3-7.7) k/uL Monocytes # (Manual) 1.37 H (0-1.0) k/uL Metamyelocytes # (Man) 1.37 H (0) k/uL Myelocytes # (Manual) 1.37 H (0) k/uL Promyelocytes # (Man) 0.46 H (0) k/uL Nucleated RBCs 7 H (0-0) /100 WBC PT 18.0 H (9.0-12.0) sec INR 1.8 H (<1.2) Sodium 135 L (137-145) mmol/L Chloride (98-107) mmol/L Carbon Dioxide 21 L (22-30) mmol/L BUN 46 H (9-20) mg/dL Glucose 120 H (74-99) mg/dL POC Glucose (mg/dL) (75-99) mg/dL Calcium 8.3 L (8.4-10.2) mg/dL Magnesium 1.5 L (1.6-2.3) mg/dL Total Bilirubin 2.6 H (0.2-1.3) mg/dL Total Protein 5.1 L (6.3-8.2) g/dL Albumin 2.8 L (3.5-5.0) g/dL Crossmatch 02/12/19 02/13/19 02/13/19 Range/Units 14:15 07:04 07:04 WBC 44.3 H (3.8-10.6) k/uL RBC 2.24 L (4.30-5.90) m/uL Hgb 7.0 L (13.0-17.5) gm/dL Hct 22.7 L (39.0-53.0) % MCV 100.9 H (80.0-100.0) fL RDW 23.4 H (11.5-15.5) % Neutrophils # (Manual) (1.3-7.7) k/uL Monocytes # (Manual) (0-1.0) k/uL Metamyelocytes # (Man) (0) k/uL Myelocytes # (Manual) (0) k/uL Promyelocytes # (Man) (0) k/uL Nucleated RBCs (0-0) /100 WBC PT (9.0-12.0) sec INR (<1.2) Sodium 135 L (137-145) mmol/L Chloride 108 H (98-107) mmol/L Carbon Dioxide 19 L (22-30) mmol/L BUN 53 H (9-20) mg/dL Glucose 108 H (74-99) mg/dL POC Glucose (mg/dL) (75-99) mg/dL Calcium 7.3 L (8.4-10.2) mg/dL Magnesium 2.5 H (1.6-2.3) mg/dL Total Bilirubin (0.2-1.3) mg/dL Total Protein (6.3-8.2) g/dL Albumin (3.5-5.0) g/dL Crossmatch See Detail 02/13/19 Range/Units 11:47 WBC (3.8-10.6) k/uL RBC (4.30-5.90) m/uL Hgb (13.0-17.5) gm/dL Hct (39.0-53.0) % MCV (80.0-100.0) fL RDW (11.5-15.5) % Neutrophils # (Manual) (1.3-7.7) k/uL Monocytes # (Manual) (0-1.0) k/uL Metamyelocytes # (Man) (0) k/uL Myelocytes # (Manual) (0) k/uL Promyelocytes # (Man) (0) k/uL Nucleated RBCs (0-0) /100 WBC PT (9.0-12.0) sec INR (<1.2) Sodium (137-145) mmol/L Chloride (98-107) mmol/L Carbon Dioxide (22-30) mmol/L BUN (9-20) mg/dL Glucose (74-99) mg/dL POC Glucose (mg/dL) 133 H (75-99) mg/dL Calcium (8.4-10.2) mg/dL Magnesium (1.6-2.3) mg/dL Total Bilirubin (0.2-1.3) mg/dL Total Protein (6.3-8.2) g/dL Albumin (3.5-5.0) g/dL Crossmatch Assessment and Plan Assessment: Patient is a 79-year-old male past medical history of prior GI bleed requiring 11 units of packed red blood cells per the patient, myeloproliferative disorder requiring recurrent transfusions and weekly Procrit, atrial fibrillation, coronary artery disease with recent stent placement on 02/04/19 to the right coronary artery, hypertension, and dyslipidemia who presented to the emergency department with complaints of dark tarry stools. Patient was seen by Dr. Pelayo last week had a stent placed. They wanted to do a cardioversion and he was therefore started on Xarelto this Saturday. Dr. Pelayo had cleared this with Dr. Miller. Patient started noting dark tarry stools the day after starting Xarelto. In the ER He was found to have a hemoglobin of 6.8 with hematocrit of 20.9. His total white blood cells were 45.6 which is elevated. His found to be hypomagnesemic at 1.5 . 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 He follows up with Dr. Miller once monthly and gets weekly Pr ocrit injections. He had been receiving chronic transfusions but states he has not needed any in the last 3 months. he reports that he was hospitalized for a GI bleed back in April was seen by Dr. Kwan at upper, lower, and capsule endoscopies. They did not find a definitive source of his bleeding at that point in time but he was taken off of Xarelto. He was maintained on aspirin and Plavix secondary to his known coronary and peripheral arterial disease. overnight he received 2 units of blood, and currently receiving a third unit, continue to monitor H and H , he continues to have tarry black bowel movements. plans for EGD in AM Plan: Acute blood loss anemia secondary to GI bleed -Dark blood per rectum -Hold Xarelto, continue aspirin and Plavix with recent PCI last week -IV PPI twice a day -CBC every 8 hours - packed red blood cells are ordered but need to be irradiated -GI consult, nothing by mouth after midnight. May have ice chips in the meantime. plans for EGD in AM Myeloproliferative disorder with resulting leukocytosis, thrombocytosis, and anemia -On Procrit once weekly -Consult Dr. Miller for management of blood products -Follow CBC P. Atrial flutter -Rate controlled currently -Telemetry -Hold Xarelto -Continue Lopressor with hold parameters Congestive heart failure, compensated with unknown ejection fraction -Continue with Lasix. Give 1 dose IV in between units of packed red blood cells -Continue with Lopressor and Aldactone. Not chronically on EARNEST inhibitor Hypomagnesemia Replaced IV and recheck BPH -Continue with Hytrin Known severe peripheral arterial disease -Continue with aspirin and Plavix, Lipitor Moderate protein malnutrition -Patient currently nothing by mouth, consider dietary consultation once able to have oral intake. Chronic: Hypertension Dyslipidemia Severe pulmonary hypertension Prior GI bleed Esophagitis DVT prophylaxis: SCDs due to GI bleeding
[2019-02-13] MEDS ORDERED: SODIUM CHLORIDE 0.9% 500 ML 500 ML IV ONE (14:52)
[2019-02-13] MEDS: DOXAZOSIN 4 MG TAB PO SCH (14:59)
[2019-02-13] MEDS: SPIRONOLACTONE 25 MG TAB PO SCH (14:59)
--- NOTE | 2019-02-13 16:00 | P.CONS ---
History of Present Illness - Reason for Consult Consult date: 02/13/19 Myeloproliferative Disease Requesting physician: David Barbosa - Chief Complaint Black tarry Stools - History of Present Illness Mr Burk is a pleasant white male, initially seen in consult at [facility] on 11/13/17. Since summer, the patient had noted decrease in appetite, progressive fatigue, weakness and weight loss. He had come in to the hospital because of progressive shortness of breath, lower extremity swelling and orthopnea.he was noted to be in congestive heart failure and was treated for the same. Labs labs showed an elevated white count in the 30,000 range, and platelets greater than 1 million. Hemoglobin was 8.5. WBC differential showed a significant left shift. Normal labs had been noted in 09/20 and the patient was supposed to be seen by us in the outpatient setting. He underwent bone marrow aspirate and biopsy in 11/15/17. He had a comparatively prolonged hospitalization for treatment for his congestive heart failure which is slow to respond. He was admitted discharged on 12/01/17. In the meantime a bone marrow pathology showed hypercellular marrow with increased trilineage hematopoiesis, and dysmegakaryopoeisis and mild reticulin fibrosis. 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 At that time molecular studies are still pending. blast percentage was not signif icantly increased. 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 the patient was seen for his first office visit on 12/10/17. He was started on Jakafi in late 12/22 The pt tolerated his regimen well subjectively, but had progressive drops in blood counts, requring intermittent transfusions. Dose was reduced to 15 BID in early 06/21. He was started on procrit in early 07/22. dose was increased to 40K q wk in 08/21. As the pt did not have any major response, he had a repeat bone marrow on 11/21/18. This overall showed similiar findings with no evidence of transformation. most recent blood transfusion was given on 11/11/18 It was decided to stop the Jakafi to see if that was contributing to his anemia. he started tapering off after 12/05/18, and will stop it in the 1st wk of 01/2001/14/19-Here for f/u, not feeling well, C/O of MS aches, progressive, legs hurts so much he can't sleep, can't breathe, he started taking the Jakafi again because his arms hurt and they feel better, he has activity intolerance and weakness. As above. he tapered off again, and stopped it after 01/15/[address] Miller on 01/23/19 - the patient has currently weaned himself off the jakafi. He did have to be started for a short time because of muscle and bone pains, but these have resolved. He is continuing on Procrit weekly. Actually appears to be responding better now that he is off the jakafi, with hemoglobin up to 9.6 today. There is it appears that his prior regimen was not effective and may actually have been suppressing his marrow. - Continue Procrit at this time and reassess in 3 weeks - After further discussion, he was agreeable for consultation at [facility] 02/12/19 - Jacques presented to emergency for further evaluation of dark, tarry stools concerning for GI Bleeidng. He has a known history of transfuaion dependence related to his underlying myeloproliferative disorder discussed in detail above, remains on procrit in office. He recieves Xarelto for known atrial fibrillation. He has known severe coronary artery disease and required RLE bypass with stent placement and just last week underwent right coronary artery stent placement on 02/04/19. He was seen by Dr. Pelayo last week when stent was placed. Xarelto was recently started by cardiology on Saturday, noting dark tarry stools by saturday evening. Hemoglobin was 6.8, WBC = 45.6, mg = 1.5, mild prolonation PT/INR = 1.8-32. Jacques decided to be further evaluated whrn the stools frequency and dark tarryiness worsened over the past few days. He now complains of lower abdominal cramping as well. His is symptomatically fatigue, exertional shortness of breath, and has persistent dizziness and lightheaded feeling with movement. 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 02/13/19 H He was apparently trialed on xarelto once previously and subsequently was hospitalized for a GI bleed back in April was seen by Dr. Kwan at upper, lower, and capsule endoscopies. They did not find a definitive source of his bleeding at that point in time but he was taken off of Xarelto. He was maintained on aspirin and Plavix secondary to his known coronary and peripheral arterial disease. Other complaints include increased BLE edema noted over past few days Review of Systems A 14 point review of systems assessed and completed and all negative except HPI Past Medical History Past Medical History: Atrial Flutter, Blood Disorder, Coronary Artery Disease (CAD), Heart Failure, GERD/Reflux, GI Bleed, Hyperlipidemia, Hypertension, Myocardial Infarction (MO), Prostate Disorder, Vascular Disorder Additional Past Medical History / Comment(s): myeloproliferative disorder(leukocytosis and thrombocytosis), esophagitis, severe PAD, severe pulmonary hypertension , right-sided heart failure with severe pulmonary hypertension, BPH, Exercise intolerance Last Myocardial Infarction Date:: 2017 History of Any Multi-Drug Resistant Organisms: Acinetobacter (MDRO), 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 tom inguinal hernia repair, coronary artery bypass surgery, EGD, colonoscopy. Cath with PCI to RCA 02/04/19 Past Anesthesia/Blood Transfusion Reactions: No Reported Reaction Past Psychological History: No Psychological Hx Reported Additional Psychological History / Comment(s): . . Smoking Status: Former smoker Past Alcohol Use History: Rare Additional Past Alcohol Use History / Comment(s): STARTED SMOKING AT AGE 16 QUIT AT AGE 40 SMOKED 1 1/2 PPD Past Drug Use History: None Reported - Past Family History Brother(s) Family Medical History: Cancer Additional Family Medical History / Comment(s): 2 with lung and 1 with prostate Mother Family Medical History: Myocardial Infarction (MO) Father History Unknown: Yes Additional Family Medical History / Comment(s): AT AGE 83 FROM "HARDENING OF THE ARTERIES" Medications and Allergies Home Medications Medication Instructions Recorded Confirmed Type Atorvastatin [Lipitor] 40 mg PO DAILY 09/27/14 02/12/19 History Terazosin [Hytrin] 5 mg PO DAILY 09/27/14 02/12/19 History Spironolactone [Aldactone] 25 mg PO DAILY 11/12/17 02/12/19 History Aspirin 81 mg PO DAILY #30 chew 04/07/18 02/12/19 Rx Clopidogrel [Plavix] 75 mg PO DAILY #30 tab 04/07/18 02/12/19 Rx Pantoprazole Sodium [Protonix] 40 mg PO DAILY 07/14/18 02/12/19 History Furosemide [Lasix] 40 mg PO BID@0200,1400 11/20/18 02/12/19 History Isosorbide Mononitrate [Isosorbide 15 mg PO DAILY 01/29/19 02/12/19 History Mononitrate ER] Metoprolol Tartrate [Lopressor] 50 mg PO TID-W/MEALS 02/12/19 02/12/19 History Rivaroxaban [Xarelto] 15 mg PO HS 02/12/19 02/12/19 History rOPINIRole HCL [Requip] 1 mg PO HS 02/12/19 02/12/19 History Allergies Allergy/AdvReac Type Severity Reaction Status Date / Time No Known Allergies Allergy Verified 02/12/19 14:35 Physical Exam Vitals: Vital Signs Temp Pulse Pulse Resp BP BP Pulse Ox 02/13/19 14:37 97 F L 96 16 84/31 02/13/19 12:02 97.6 F 88 16 92/49 02/13/19 11:58 16 02/13/19 11:32 97.7 F 91 16 90/50 97 02/13/19 11:22 97.8 F 16 88/48 99 02/13/19 08:00 97.1 F L 89 16 95/52 97 02/13/19 05:38 97.7 F 80 19 90/41 99 02/13/19 03:13 97.6 F 88 18 91/42 99 02/13/19 02:48 97.6 F 88 19 86/42 100 02/13/19 02:43 97.2 F L 85 18 86/42 100 02/13/19 02:33 97.7 F 85 19 96/48 98 02/13/19 02:08 97.8 F 85 85/42 97 02/13/19 00:20 97.0 F L 85 18 90/50 99 02/13/19 00:05 97.0 F L 85 20 90/50 100 02/13/19 00:00 97.9 F 85 18 90/51 99 02/12/19 23:35 98.0 F 86 18 91/49 99 02/12/19 23:25 97.7 F 88 18 88/55 99 02/12/19 20:55 90 18 101/53 98 02/12/19 19:30 91 18 104/58 99 02/12/19 19:00 90 18 92/43 98 02/12/19 18:30 90 18 93/58 98 02/12/19 17:30 91 18 101/60 99 02/12/19 16:30 90 18 109/62 98 02/12/19 15:30 90 18 104/63 100 Intake and Output 02/13/19 02/13/19 02/13/19 06:59 14:59 22:59 Intake Total 1540 310 Output Total 650 400 Balance 890 -90 Intake: Intake, IV Titration 300 Amount Magnesium Sulfate-D5w Pmx 200 1 gm In Dextrose/Water 1 100ml.bag @ 100 mls/hr IVPB Q1H [facility] Rx#: [id number] Sodium Chloride 0.9% 1, 100 000 ml @ 50 mls/hr IV . Q20H [facility] Rx#:[id number] Blood Product 1240 310 Rc Irr As1 Unit 310 [id number] Rc Irr As1 Unit 310 [id number] Rc Irr As1 Unit 310 [id number] Output: Urine 650 400 Other: Voiding Method Urinal Urinal # Voids 1 0 # Bowel Movements 1 Weight 94 kg 94 kg Gen: Alert and Oriented, NAD, Plae Neck: Supple, Mucous Membranes: Dry cracking lips, no thrush or mucocytis No palpable adenopathy supraclavicular, cervical or axillary Lungs: Diminished bibasilar no increased effort seen Heart Rate: Irreg, Reg Abdomen: Mild increased and suprapelvic pain to palpation Extremities: Evidence of insufficient blood flow chronic changes, pedal pulses present 1-2+ edema bilateral pedal Neuro: No new sensory or motor deficits noted Results CBC & Chem 7: 02/13/19 16:13 02/13/19 07:04 Labs: Abnormal Lab Results - Last 24 Hours (Table) 02/12/19 02/12/19 02/13/19 Range/Units 14:08 14:15 07:04 WBC 45.6 H 44.3 H (3.8-10.6) k/uL RBC 2.24 L (4.30-5.90) m/uL Hgb 7.0 L (13.0-17.5) gm/dL Hct 22.7 L (39.0-53.0) % MCV 100.9 H (80.0-100.0) fL RDW 23.4 H (11.5-15.5) % Neutrophils # (Manual) 37.80 H (1.3-7.7) k/uL Monocytes # (Manual) 1.37 H (0-1.0) k/uL Metamyelocytes # (Man) 1.37 H (0) k/uL Myelocytes # (Manual) 1.37 H (0) k/uL Promyelocytes # (Man) 0.46 H (0) k/uL Nucleated RBCs 7 H (0-0) /100 WBC Sodium (137-145) mmol/L Chloride (98-107) mmol/L Carbon Dioxide (22-30) mmol/L BUN (9-20) mg/dL Glucose (74-99) mg/dL POC Glucose (mg/dL) (75-99) mg/dL Calcium (8.4-10.2) mg/dL Magnesium (1.6-2.3) mg/dL Crossmatch See Detail 02/13/19 02/13/19 Range/Units 07:04 11:47 WBC (3.8-10.6) k/uL RBC (4.30-5.90) m/uL Hgb (13.0-17.5) gm/dL Hct (39.0-53.0) % MCV (80.0-100.0) fL RDW (11.5-15.5) % Neutrophils # (Manual) (1.3-7.7) k/uL Monocytes # (Manual) (0-1.0) k/uL Metamyelocytes # (Man) (0) k/uL Myelocytes # (Manual) (0) k/uL Promyelocytes # (Man) (0) k/uL Nucleated RBCs (0-0) /100 WBC Sodium 135 L (137-145) mmol/L Chloride 108 H (98-107) mmol/L Carbon Dioxide 19 L (22-30) mmol/L BUN 53 H (9-20) mg/dL Glucose 108 H (74-99) mg/dL POC Glucose (mg/dL) 133 H (75-99) mg/dL Calcium 7.3 L (8.4-10.2) mg/dL Magnesium 2.5 H (1.6-2.3) mg/dL Crossmatch Assessment and Plan Plan: Assessment and Recommendations Myelofibrosis: - Mr. Burk is a pleasant 79year old male patient well known to us for monitoring of his chronic anemia and myelofibrosis. He was recently weaned off of treatment with Jakafi as his disease appeared to stop responding. His most recent recommendations from a hematological standpoint was to have evaluation at [facility] in [place], transplant center for evaluation of other options. - Currently he is seen weekly and receives Epogen (Procrit 40K) injections for his anemia of consequence of his bone marrow disorder and treatment effect from Jakafi. - He has received numerous transfusions over the years related to the above, transfusion dependant status has improved on Epogen. Acute on Chronic Macrocytic Anemia - Acute likely related to acute blood loss anemia - GI Loss/Chronic Secondary to Myelofibrosis and Treatment Jakafi - Same as above - Continue with PRBC transfusions if symptomatic under 7.5 - Procrit was due today 40K, will discuss with Dr. Miller whether to continue with interchangeable epogen while admitted to hospital BLE Edema: - Monitor - LE Venous Dopplers - Increase PO Intake Protein, albumin 2.8 Leukocytosis: - Secondary to myeloproliferative disorder Melena - Balck Tarry Stools - Endoscopies performed April 2018 - Without significant evidence of source for bleeding - GI has been consulted. Atrial Fibrillation and Severe Coronary Artery and Peripheral Vascullar Disease: -Cardiology Following - Recently Restarted on Xarelto Last Week Saturday, Admission one year ago related to bleeding on Xarelto - Hold Xarelto at this time, May consider re-challenging anticoagualtion with another choice DOAC - Plavix and ASA Recs per Cardiology Plan: - I did review GI Consultation and plan for EGD evaluation possible small bowel capsule endoscopy in am - Agree with PPI - Agree with Holding Xarelto and deferring other AC to Cardio - Transfusion support under 7, or if symptomatic 7.5. NINO Cha Physician Attest: I have completed the fullhistory and physical of this patient and agree with above dictation. I have developed the impression and plan d ictated as a scribe
[2019-02-13 16:34] LABS: Anisocytosis Moderate; HCT 23.6 % (39.0-53.0); HGB 7.7 gm/dL (13.0-17.5); Hypochromasia Moderate; MCH 32.3 pg (25.0-35.0); MCHC 32.6 g/dL (31.0-37.0); MCV 98.9 fL (80.0-100.0); Macrocytosis Moderate; Mean Platelet Volume 10.5; Platelet Count 304 k/uL (150-450); Poikilocytosis Moderate; RBC 2.38 m/uL (4.30-5.90); RDW 23.4 % (11.5-15.5)
[2019-02-13] MEDS ORDERED: MAGNESIUM CITRATE 296 ML BOTTLE PO ONE (17:00)
[2019-02-13 17:10] LABS: Glucose,Whole Blood 131 mg/dL (75-99)
[2019-02-13 17:32] LABS: Appearance,Urine Clear (Clear); Bilirubin,Urine Negative (Negative); Blood,Urine Negative (Negative); Color,Urine Yellow; Glucose,Urine (UA) Negative (Negative); Ketones,Urine Negative (Negative); Leukocyte Esterase,Urine Negative (Negative); Nitrite,Urine Negative (Negative); PH, Urine 5.5 (5.0-8.0); Protein,Urine Negative (Negative); Specific Gravity,Urine 1.015 (1.001-1.035); Urobilinogen,Urine <2.0 mg/dL (<2.0)
[2019-02-13 17:50] LABS: Band Neutrophils % 3 %; Lymphocytes # (M) 3.42 k/uL (1.0-4.8); Metamyelocytes # (M) 2.14 k/uL (0); Metamyelocytes % 5 %; Monocytes # (M) 0.43 k/uL (0-1.0); Myelocytes # (M) 2.14 k/uL (0); Myelocytes % 5 %; Neutrophils % (M) 77 %; Nucleated Red Blood Cells 7 /100 WBC (0-0); Poikilocytosis (M) Present; Polychromasia Present; Promyelocytes # (M) 0.85 k/uL (0); Promyelocytes % 2 %; Total Cells Counted 200; WBC 42.7 k/uL (3.8-10.6)
[2019-02-13 20:39] LABS: Glucose,Whole Blood 140 mg/dL (75-99)
[2019-02-13] MEDS: SODIUM CHLORIDE 0.9% 1,000 ML IV SCH (21:04)
[2019-02-14 00:38] LABS: Anisocytosis Moderate; HCT 21.3 % (39.0-53.0); Hypochromasia Moderate; MCH 30.7 pg (25.0-35.0); MCHC 30.9 g/dL (31.0-37.0); MCV 99.3 fL (80.0-100.0); Macrocytosis Moderate; Mean Platelet Volume 10.9; Platelet Count 266 k/uL (150-450); Poikilocytosis Moderate; RBC 2.15 m/uL (4.30-5.90); RDW 22.6 % (11.5-15.5)
[2019-02-14 01:11] LABS: HGB 6.6 gm/dL (13.0-17.5)
[2019-02-14 01:25] LABS: Band Neutrophils % 11 %; Eosinophils # (M) 0.37 k/uL (0-0.7); Lymphocytes # (M) 2.23 k/uL (1.0-4.8); Metamyelocytes # (M) 1.49 k/uL (0); Metamyelocytes % 4 %; Myelocytes # (M) 1.86 k/uL (0); Myelocytes % 5 %; Neutrophils % (M) 74 %; Nucleated Red Blood Cells 7 /100 WBC (0-0); Total Cells Counted 200; WBC 37.2 k/uL (3.8-10.6)
[2019-02-14 01:26] LABS: Mixed Population RBC Present; Poikilocytosis (M) Present; Polychromasia Present; Rouleaux Present
[2019-02-14] MEDS: ACETAMINOPHEN TAB 325 MG TAB PO PRN (04:26)
[2019-02-14 06:02] LABS: Glucose,Whole Blood 144 mg/dL (75-99)
[2019-02-14] MEDS: METOPROLOL TARTRATE 50 MG TAB PO SCH ×3 (06:49→17:21)
[2019-02-14] MEDS: SODIUM CHLORIDE 0.9% 1,000 ML IV SCH (06:49)
[2019-02-14 07:26] LABS: Calcium 7.2 mg/dL (8.4-10.2); Potassium 4.3 mmol/L (3.5-5.1)
[2019-02-14 07:56] LABS: Anisocytosis Moderate; HCT 21.3 % (39.0-53.0); Hypochromasia Moderate; MCH 31.8 pg (25.0-35.0); MCHC 32.1 g/dL (31.0-37.0); MCV 99.3 fL (80.0-100.0); Macrocytosis Moderate; Mean Platelet Volume 10.5; Platelet Count 275 k/uL (150-450); Poikilocytosis Moderate; RBC 2.14 m/uL (4.30-5.90); RDW 23.4 % (11.5-15.5)
[2019-02-14 07:58] LABS: INR 1.7 (<1.2); Prothrombin Time 16.5 sec (9.0-12.0)
[2019-02-14 08:07] LABS: HGB 6.8 gm/dL (13.0-17.5)
[2019-02-14] MEDS ORDERED: SODIUM CHLORIDE 0.9% 500 ML 500 ML IV ONE (09:00)
[2019-02-14 09:46] LABS: Band Neutrophils % 5 %; Basophils # (M) 0.41 k/uL (0-0.2); Eosinophils # (M) 0.82 k/uL (0-0.7); Lymphocytes # (M) 3.69 k/uL (1.0-4.8); Metamyelocytes # (M) 1.64 k/uL (0); Metamyelocytes % 4 %; Monocytes # (M) 2.87 k/uL (0-1.0); Myelocytes # (M) 1.23 k/uL (0); Myelocytes % 3 %; Neutrophils % (M) 71 %; Nucleated Red Blood Cells 5 /100 WBC (0-0); Polychromasia Present; Total Cells Counted 200
[2019-02-14 09:48] LABS: Large Platelets Present
[2019-02-14] MEDS ORDERED: PROPOFOL 10 MG/ML 20 ML VIAL IV ONE (10:06)
[2019-02-14] MEDS ORDERED: LIDOCAINE 1% INJ 10MG/ML (20 ML MDV) ONE (10:06)
[2019-02-14] MEDS ORDERED: IV FLUID CONTINUATION 500 ML IV ONE (10:45)
--- NOTE | 2019-02-14 10:47 | P.PCN ---
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 Patient was receiving Xarelto prior to admission secondary to a possible cardioversion next week. Last dose of anticoagulation was Saturday. Passing multiple black colored bowel movements with indigestion and epigastric discomfort. Emesis 1 nonbloody. Patient passed several black colored bowel movements as early as yesterday morning. Presently reporting mild epigastric discomfort receiving his third unit of blood. EGD April reported long segment Wilson's esophagus with no evidence of esophagitis or bleeding early stricture noted in the proximal part of the Wilson's esophagus but did not impede the passage of the scope. Small bowel capsule endoscopy April 2018 incomplete after 3 hours capsule did not progress however what was evaluate d identified no evidence of small bowel bleeding. He also reports a previous history of small bowel capsule ENDOSCOPY attempt being incomplete secondary to difficulty swallowing. Last colonoscopy August 2017 internal hemorrhoids sigmoid diverticulosis.. PROCEDURE PERFORMED: Esophagogastroduodenoscopy. PREOPERATIVE DIAGNOSIS: Melena, anemia acute blood loss, history of Wilson's esophagus. ESTIMATED BLOOD LOSS: Minimal. IV sedation per anesthesia. PROCEDURE: After informed consent was obtained, the patient was brought into the endoscopy unit. IV sedation was administered by Anesthesia under continuous monitoring. Initially the Olympus GIF-190 video endoscope was inserted into the mouth. Esophagus intubated without any difficulty. It was gradually advanced into the stomach and duodenum and carefully examined. The bulb and the second part of the duodenum appeared normal. The scope at this time was withdrawn to the stomach, adequately insufflated with air, and upon careful examination, mucosa of the antrum, body, cardia and the fundus appeared normal except for some mild scattered erythema in the antrum and body suggestive of mild gastritis with no biopsies taken in the setting of Plavix and aspirin. No active bleeding was noted in the stomach or small bowel. No old blood was seen.. The scope was then withdrawn into the esophagus. The GE junction was located at 37 cm from the incisors. The esophagus appeared normal, with findings of long segment Wislon's as previously noted, nonobstructing distal Schatzki's ring and narrowing of the proximal esophagus consistent with previous findings, with EGD scope was still able to traverse the area of the proximal esophagus. At this point the deployment of a small bowel video capsule was attempted by suction and the c apsule to the end the scope with a deployment device. Reintubation of the esophagus however was unsuccessful likely secondary to the proximal esophagus narrowing as previously mentioned. Numerous attempts were made to try and pass the endoscope with the deployment device and video capsule into the esophagus however these were unsuccessful. At this point the procedure was ended. The patient tolerated the procedure well. IMPRESSION: 1. No old blood or active bleeding noted in the visualized GI tract. 2. Mild gastritis, no biopsies taken in the setting of aspirin and Plavix. 3. Long segment Wilson's as previously noted, biopsies not taken in the setting of aspirin and Plavix therapy. 4. Nonobstructing distal Schatzki's ring. 5. Proximal esophagus stricture. 6. Unsuccessful attempt at placement of a video capsule endoscopy with a EGD deployment device likely secondary to the patient's proximal esophagus stricture. RECOMMENDATIONS: The findings of this examination were discussed with the patient. Okay for liquids. Continue to monitor hemoglobin and hematocrit and transfuse as needed. The patient has had 2 previous unsuccessful attempts of video capsule endoscopy, and appointment was unsuccessful likely secondary to the patient's proximal esophageal stricture. At this time would recommend continued conservative management with monitoring hemoglobin, iron supplementation as needed, and transfusion of PRBCs as needed. Patient also has a known history of Wilson's esophagus with previous findings of dysplasia, and again should follow up with [facility] with consideration for ablation therapy if otherwise stable.
[2019-02-14 11:48] LABS: Glucose,Whole Blood 165 mg/dL (75-99)
[2019-02-14] MEDS: SODIUM FERRIC GLUCONAT-SUCROSE 125 MG in SODIUM CHLORIDE 0.9% 100 ML IVPB SCH (13:01)
[2019-02-14] MEDS: CLOPIDOGREL 75 MG TAB PO SCH (13:01)
[2019-02-14] MEDS: DOXAZOSIN 4 MG TAB PO SCH (13:01)
[2019-02-14] MEDS: ATORVASTATIN 40 MG TAB PO SCH (13:01)
[2019-02-14] MEDS: PANTOPRAZOLE 40 MG/10 ML VIAL IVP SCH ×2 (13:01→20:38)
[2019-02-14] MEDS: ASPIRIN 81 MG PO SCH (13:02)
[2019-02-14] MEDS: SPIRONOLACTONE 25 MG TAB PO SCH (13:02)
[2019-02-14] MEDS: ISOSORBIDE MONONITRATE ER 15 MG TAB PO SCH (13:03)
[2019-02-14 13:53] LABS: Anisocytosis Moderate; HCT 25.7 % (39.0-53.0); HGB 7.8 gm/dL (13.0-17.5); Hypochromasia Moderate; MCH 29.7 pg (25.0-35.0); MCHC 30.2 g/dL (31.0-37.0); MCV 98.1 fL (80.0-100.0); Macrocytosis Moderate; Mean Platelet Volume 10.5; Platelet Count 306 k/uL (150-450); Poikilocytosis Moderate; RBC 2.62 m/uL (4.30-5.90); RDW 22.2 % (11.5-15.5)
[2019-02-14 14:11] LABS: Band Neutrophils % 5 %; Lymphocytes # (M) 1.64 k/uL (1.0-4.8); Metamyelocytes # (M) 0.41 k/uL (0); Metamyelocytes % 1 %; Monocytes # (M) 1.64 k/uL (0-1.0); Myelocytes # (M) 0.41 k/uL (0); Myelocytes % 1 %; Neutrophils % (M) 87 %; Nucleated Red Blood Cells 9 /100 WBC (0-0); Total Cells Counted 200
[2019-02-14 14:12] LABS: Large Platelets Present; Polychromasia Present
--- NOTE | 2019-02-14 16:46 | P.PN ---
Subjective Progress Note Date: 02/14/19 Principal diagnosis: patient is seen and examined in follow up for GI bleeding patient seen and examined , currently receiving IV iron transfusion. Today he had endoscopy done tolerated well. Source of bleeding was not identified. Patient currently laying comfortable in bed still reporting black tarry stools denies any chest pain or trouble breathing at this time. Objective - Vital Signs Vital signs: Vital Signs Temp 98.2 F 02/14/19 08:17 Pulse 90 02/14/19 08:00 Resp 17 02/14/19 08:17 BP 89/56 02/14/19 08:17 Pulse Ox 97 02/14/19 08:17 Intake & Output 02/13/19 02/14/19 02/14/19 18:59 06:59 18:59 Intake Total 310 0 Output Total 660 700 Balance -350 -700 0 Weight 94 kg 77.7 kg Intake: Blood Product 310 0 Rc Irr As1 Unit 310 [id number] Rc Irr As1 Unit 0 [id number] Output: Urine 400 250 Stool 450 Emesis 260 Other: Voiding Method Urinal Urinal # Voids 0 1 0 # Bowel Movements 1 1 # Emeses 1 - Exam General , alert, not in any distress. Chest CTA bilaterally, no wheezing rhonci or rales. CVS normal s1, s2, regular rate and rhythm, no murmurs, no gallops , no rubs, no peripheral edema. capillary refil is immediate over toes. Abd , discomfort to deep palpation throughout, no tenderness to palpation, no rebound no rigidity. bowel sounds positive psych alert oriented to place time and person, fair judgment neuro , no focal deficits. - Labs CBC & Chem 7: 02/14/19 13:06 02/14/19 06:46 Labs: Abnormal Lab Results - Last 24 Hours (Table) 02/12/19 02/13/19 02/13/19 Range/Units 14:15 11:47 16:13 WBC 42.7 H (3.8-10.6) k/uL RBC 2.38 L (4.30-5.90) m/uL Hgb 7.7 L (13.0-17.5) gm/dL Hct 23.6 L (39.0-53.0) % MCHC (31.0-37.0) g/dL RDW 23.4 H (11.5-15.5) % Neutrophils # (Manual) 34.10 H (1.3-7.7) k/uL Metamyelocytes # (Man) 2.14 H (0) k/uL Myelocytes # (Manual) 2.14 H (0) k/uL Promyelocytes # (Man) 0.85 H (0) k/uL Nucleated RBCs 7 H (0-0) /100 WBC PT (9.0-12.0) sec INR (<1.2) Chloride (98-107) mmol/L Carbon Dioxide (22-30) mmol/L BUN (9-20) mg/dL Glucose (74-99) mg/dL POC Glucose (mg/dL) 133 H (75-99) mg/dL Calcium (8.4-10.2) mg/dL Crossmatch See Detail 02/13/19 02/13/19 02/14/19 Range/Units 17:09 20:37 00:22 WBC 37.2 H (3.8-10.6) k/uL RBC 2.15 L (4.30-5.90) m/uL Hgb 6.6 L* (13.0-17.5) gm/dL Hct 21.3 L (39.0-53.0) % MCHC 30.9 L (31.0-37.0) g/dL RDW 22.6 H (11.5-15.5) % Neutrophils # (Manual) 31.60 H (1.3-7.7) k/uL Metamyelocytes # (Man) 1.49 H (0) k/uL Myelocytes # (Manual) 1.86 H (0) k/uL Promyelocytes # (Man) (0) k/uL Nucleated RBCs 7 H (0-0) /100 WBC PT (9.0-12.0) sec INR (<1.2) Chloride (98-107) mmol/L Carbon Dioxide (22-30) mmol/L BUN (9-20) mg/dL Glucose (74-99) mg/dL POC Glucose (mg/dL) 131 H 140 H (75-99) mg/dL Calcium (8.4-10.2) mg/dL Crossmatch 02/14/19 02/14/19 02/14/19 Range/Units 06:00 06:46 06:46 WBC 43.1 H (3.8-10.6) k/uL RBC 2.14 L (4.30-5.90) m/uL Hgb 6.8 L* (13.0-17.5) gm/dL Hct 21.3 L (39.0-53.0) % MCHC (31.0-37.0) g/dL RDW 23.4 H (11.5-15.5) % Neutrophils # (Manual) (1.3-7.7) k/uL Metamyelocytes # (Man) (0) k/uL Myelocytes # (Manual) (0) k/uL Promyelocytes # (Man) (0) k/uL Nucleated RBCs (0-0) /100 WBC PT 16.5 H (9.0-12.0) sec INR 1.7 H (<1.2) Chloride (98-107) mmol/L Carbon Dioxide (22-30) mmol/L BUN (9-20) mg/dL Glucose (74-99) mg/dL POC Glucose (mg/dL) 144 H (75-99) mg/dL Calcium (8.4-10.2) mg/dL Crossmatch 02/14/19 Range/Units 06:46 WBC (3.8-10.6) k/uL RBC (4.30-5.90) m/uL Hgb (13.0-17.5) gm/dL Hct (39.0-53.0) % MCHC (31.0-37.0) g/dL RDW (11.5-15.5) % Neutrophils # (Manual) (1.3-7.7) k/uL Metamyelocytes # (Man) (0) k/uL Myelocytes # (Manual) (0) k/uL Promyelocytes # (Man) (0) k/uL Nucleated RBCs (0-0) /100 WBC PT (9.0-12.0) sec INR (<1.2) Chloride 117 H (98-107) mmol/L Carbon Dioxide 18 L (22-30) mmol/L BUN 56 H (9-20) mg/dL Glucose 119 H (74-99) mg/dL POC Glucose (mg/dL) (75-99) mg/dL Calcium 7.2 L (8.4-10.2) mg/dL Crossmatch Assessment and Plan Assessment: Patient is a 79-year-old male past medical history of prior GI bleed requiring 11 units of packed red blood cells per the patient, myeloproliferative disorder requiring recurrent transfusions and weekly Procrit, atrial fibrillation, coronary artery disease with recent stent placement on 02/04/19 to the right coronary artery, hypertension, and dyslipidemia who presented to the emergency department with complaints of dark tarry stools. Patient was seen by Dr. Pelayo last week had a stent placed. They wanted to do a cardioversion and he was therefore started on Xarelto this Saturday. Dr. Pelayo had cleared this w ith Dr. Miller. Patient started noting dark tarry stools the day after starting Xarelto. In the ER He was found to have a hemoglobin of 6.8 with hematocrit of 20.9. His total white blood cells were 45.6 which is elevated. His found to be hypomagnesemic at 1.5 . 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 He follows up with Dr. Miller once monthly and gets weekly Pro crit injections. He had been receiving chronic transfusions but states he has not needed any in the last 3 months. he reports that he was hospitalized for a GI bleed back in April was seen by Dr. Kwan at upper, lower, and capsule endoscopies. They did not find a definitive source of his bleeding at that point in time but he was taken off of Xarelto. He was maintained on aspirin and Plavix secondary to his known coronary and peripheral arterial disease. 02/14 patient has received a total of 4 blood units since presentation, currently his hemoglobin is stable about 7. He tolerated EGD well today, source of bleeding was not identified. Patient has gastritis and Wilson's esophagitis no biopsies taken due to being on aspirin and Plavix for his recent PCI. Patient has proximal esophageal stricture which limited the ability of deploying small bowel camera. GI recommending referral to [facility] after discharge for Wilson's ablation. Plan: Acute blood loss anemia secondary to GI bleed -Dark blood per rectum -Hold Xarelto (cardiology was planning on cardiac ablation in the future), continue aspirin and Plavix with recent PCI last week -IV PPI twice a day -CBC every 8 hours - Transfuse as needed for hemoglobin less than 7 or symptomatic anemia EGD failed to show source of bleeding, small bowel camera felt to be inserted due to proximal esophageal strictures Myeloproliferative disorder with resulting leukocytosis, thrombocytosis, and anemia -On Procrit once weekly, oncology to determine whether Epogen should be used instead during this hospital stay -Consult Dr. Miller for management of blood products -Follow CBC P. Atrial flutter -Rate controlled currently -Telemetry -Hold Xarelto -Continue Lopressor with hold parameters Congestive heart failure, compensated with unknown ejection fraction Lasix on hold due to hypotension -Continue with Lopressor and Aldactone. With hold parameters, Not chronically on EARNEST inhibitor Hypomagnesemia Resolved BPH -Continue with Hytrin Known severe peripheral arterial disease -Continue with aspirin and Plavix, Lipitor Moderate protein malnutrition -Patient currently nothing by mouth, consider dietary consultation once able to have oral intake. Chronic: Hypertension Dyslipidemia Severe pulmonary hypertension Prior GI bleed Esophagitis DVT prophylaxis: SCDs due to GI bleeding Patient will be discharged once hemoglobin is stable for over 24 hours
[2019-02-14 17:28] LABS: Glucose,Whole Blood 136 mg/dL (75-99)
[2019-02-14 19:26] LABS: Anisocytosis Moderate; HCT 21.1 % (39.0-53.0); Hypochromasia Moderate; MCH 30.3 pg (25.0-35.0); MCHC 30.8 g/dL (31.0-37.0); MCV 98.3 fL (80.0-100.0); Macrocytosis Moderate; Mean Platelet Volume 10.9; Platelet Count 251 k/uL (150-450); Poikilocytosis Moderate; RBC 2.15 m/uL (4.30-5.90); RDW 22.6 % (11.5-15.5)
[2019-02-14 19:31] LABS: HGB 6.5 gm/dL (13.0-17.5)
[2019-02-14 19:39] LABS: Band Neutrophils % 6 %; Eosinophils # (M) 0.33 k/uL (0-0.7); Lymphocytes # (M) 1.96 k/uL (1.0-4.8); Metamyelocytes # (M) 0.98 k/uL (0); Metamyelocytes % 3 %; Monocytes # (M) 0.33 k/uL (0-1.0); Myelocytes % 4 %; Neutrophils % (M) 80 %; Nucleated Red Blood Cells 5 /100 WBC (0-0); Polychromasia Present; Total Cells Counted 200; WBC 32.6 k/uL (3.8-10.6)
[2019-02-14 20:57] LABS: Glucose,Whole Blood 149 mg/dL (75-99)
[2019-02-15 04:26] LABS: Anisocytosis Moderate; HCT 22.5 % (39.0-53.0); HGB 7.2 gm/dL (13.0-17.5); Hypochromasia Slight; MCH 29.9 pg (25.0-35.0); MCHC 32.1 g/dL (31.0-37.0); Macrocytosis Slight; Mean Platelet Volume 9.8; Platelet Count 253 k/uL (150-450); Poikilocytosis Moderate; RBC 2.41 m/uL (4.30-5.90); RDW 21.8 % (11.5-15.5); WBC 37.2 k/uL (3.8-10.6)
[2019-02-15 04:29] LABS: MCV 93.1 fL (80.0-100.0)
[2019-02-15] MEDS: SODIUM CHLORIDE 0.9% 1,000 ML IV SCH ×2 (05:06→20:47)
[2019-02-15 05:50] LABS: Glucose,Whole Blood 131 mg/dL (75-99)
[2019-02-15] MEDS: METOPROLOL TARTRATE 50 MG TAB PO SCH ×3 (06:20→17:33)
[2019-02-15] MEDS: ATORVASTATIN 40 MG TAB PO SCH (08:53)
[2019-02-15] MEDS: DOXAZOSIN 4 MG TAB PO SCH (08:53)
[2019-02-15] MEDS: SPIRONOLACTONE 25 MG TAB PO SCH (08:54)
[2019-02-15] MEDS: ISOSORBIDE MONONITRATE ER 15 MG TAB PO SCH (08:54)
[2019-02-15] MEDS: PANTOPRAZOLE 40 MG/10 ML VIAL IVP SCH ×2 (08:54→20:47)
[2019-02-15] MEDS: CLOPIDOGREL 75 MG TAB PO SCH (08:54)
[2019-02-15] MEDS: ASPIRIN 81 MG PO SCH ×2 (08:54→09:02)
[2019-02-15 11:37] LABS: Calcium 6.9 mg/dL (8.4-10.2); Magnesium 2.6 mg/dL (1.6-2.3); Potassium 3.9 mmol/L (3.5-5.1)
[2019-02-15 11:46] LABS: Glucose,Whole Blood 134 mg/dL (75-99)
[2019-02-15] MEDS: SODIUM FERRIC GLUCONAT-SUCROSE 125 MG in SODIUM CHLORIDE 0.9% 100 ML IVPB SCH (12:07)
--- NOTE | 2019-02-15 12:17 | P.PN ---
Subjective Progress Note Date: 02/15/19 Principal diagnosis: patient is seen and examined in follow up for GI bleeding patient seen and examined , patient is having Shortness of breath at rest , which is a sign of symptomatic anemia. he feels cold and shivering . denies any chest pain , but reports feeling extremly tired . he had a bloody 9black tarry ) bowel movement last night, and said that this morning he had one but was not as bad. denies any hematemesis , denies any fevers or chills . Objective - Vital Signs Vital signs: Vital Signs Temp 98 F 02/15/19 08:15 Pulse 93 02/15/19 08:15 Resp 18 02/15/19 08:15 BP 101/63 02/15/19 08:15 Pulse Ox 99 02/15/19 08:15 Intake & Output 02/14/19 02/15/19 02/15/19 18:59 06:59 18:59 Intake Total 690 310 90 Output Total 1550 1000 Balance -860 -690 90 Weight 79.2 kg Intake: IV 200 Oral 180 90 Blood Product 310 310 Rc Irr As1 Unit 310 [id number] Rc Irr As1 Unit 310 [id number] Output: Urine 750 1000 Stool 800 Other: Voiding Method Urinal # Voids 0 0 # Bowel Movements 1 1 - Exam General , alert, shortness of breath he seems winded at rest. Chest CTA bilaterally, no wheezing rhonci or rales. CVS normal s1, s2, regular rate and rhythm, no murmurs, no gallops , no rubs, no peripheral edema. capillary refill is immediate over toes. Abd , soft lax, no tenderness to palpation , BS positive psych alert oriented to place time and person, fair judgment neuro , no focal deficits. - Labs CBC & Chem 7: 02/15/19 04:13 02/15/19 10:49 Labs: Abnormal Lab Results - Last 24 Hours (Table) 02/12/19 02/14/19 02/14/19 Range/Units 14:15 13:06 17:08 WBC 41.0 H (3.8-10.6) k/uL RBC 2.62 L (4.30-5.90) m/uL Hgb 7.8 L (13.0-17.5) gm/dL Hct 25.7 L (39.0-53.0) % MCHC 30.2 L (31.0-37.0) g/dL RDW 22.2 H (11.5-15.5) % Neutrophils # (Manual) 37.70 H (1.3-7.7) k/uL Monocytes # (Manual) 1.64 H (0-1.0) k/uL Metamyelocytes # (Man) 0.41 H (0) k/uL Myelocytes # (Manual) 0.41 H (0) k/uL Nucleated RBCs 9 H (0-0) /100 WBC Chloride (98-107) mmol/L Carbon Dioxide (22-30) mmol/L BUN (9-20) mg/dL Glucose (74-99) mg/dL POC Glucose (mg/dL) 136 H (75-99) mg/dL Calcium (8.4-10.2) mg/dL Magnesium (1.6-2.3) mg/dL Crossmatch See Detail 02/14/19 02/14/19 02/15/19 Range/Units 19:01 20:56 04:13 WBC 32.6 H 37.2 H (3.8-10.6) k/uL RBC 2.15 L 2.41 L (4.30-5.90) m/uL Hgb 6.5 L* 7.2 L (13.0-17.5) gm/dL Hct 21.1 L 22.5 L (39.0-53.0) % MCHC 30.8 L (31.0-37.0) g/dL RDW 22.6 H 21.8 H (11.5-15.5) % Neutrophils # (Manual) 28.00 H (1.3-7.7) k/uL Monocytes # (Manual) (0-1.0) k/uL Metamyelocytes # (Man) 0.98 H (0) k/uL Myelocytes # (Manual) 1.30 H (0) k/uL Nucleated RBCs 5 H (0-0) /100 WBC Chloride (98-107) mmol/L Carbon Dioxide (22-30) mmol/L BUN (9-20) mg/dL Glucose (74-99) mg/dL POC Glucose (mg/dL) 149 H (75-99) mg/dL Calcium (8.4-10.2) mg/dL Magnesium (1.6-2.3) mg/dL Crossmatch 02/15/19 02/15/19 02/15/19 Range/Units 05:48 10:49 11:44 WBC (3.8-10.6) k/uL RBC (4.30-5.90) m/uL Hgb (13.0-17.5) gm/dL Hct (39.0-53.0) % MCHC (31.0-37.0) g/dL RDW (11.5-15.5) % Neutrophils # (Manual) (1.3-7.7) k/uL Monocytes # (Manual) (0-1.0) k/uL Metamyelocytes # (Man) (0) k/uL Myelocytes # (Manual) (0) k/uL Nucleated RBCs (0-0) /100 WBC Chloride 115 H (98-107) mmol/L Carbon Dioxide 18 L (22-30) mmol/L BUN 38 H (9-20) mg/dL Glucose 121 H (74-99) mg/dL POC Glucose (mg/dL) 131 H 134 H (75-99) mg/dL Calcium 6.9 L (8.4-10.2) mg/dL Magnesium 2.6 H (1.6-2.3) mg/dL Crossmatch Assessment and Plan Assessment: Patient is a 79-year-old male past medical history of prior GI bleed requiring 11 units of packed red blood cells per the patient, myeloproliferative disorder requiring recurrent transfusions and weekly Procrit, atrial fibrillation, coronary artery disease with recent stent placement on 02/04/19 to the right coronary artery, hypertension, and dyslipidemia who presented to the emergency department with complaints of dark tarry stools. Patient was seen by Dr. Pelayo last week had a stent placed. They wanted to do a cardioversion and he was therefore started on Xarelto this Saturday. Dr. Pelayo had cleared this with Dr. Miller. Patient started noting dark tarry stools the day after starting Xarelto. In the ER He was found to have a hemoglobin of 6.8 with hematocrit of 20.9. His total white blood cells were 45.6 which is elevated. His found to be hypomagnesemic at 1.5 . 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 He follows up with Dr. Miller once monthly and gets weekly P rocrit injections. He had been receiving chronic transfusions but states he has not needed any in the last 3 months. he reports that he was hospitalized for a GI bleed back in April was seen by Dr. Kwan at upper, lower, and capsule endoscopies. They did not find a definitive source of his bleeding at that point in time but he was taken off of Xarelto. He was maintained on aspirin and Plavix secondary to his known coronary and peripheral arterial disease. 02/14 patient has received a total of 4 blood units since presentation, currently his hemoglobin is stable about 7. He tolerated EGD well today, source of bleeding was not identified. Patient has gastritis and Wilson's esophagitis no biopsies taken due to being on aspirin and Plavix for his recent PCI. Patient has proximal esophageal stricture which limited the ability of deploying small bowel camera. GI recommending referral to [facility] after discharge for Wilson's ablation. 02/15, patient received another unit last night , for total of 5 units during this hospital stay. he continues to have black tarry stools, but reports improving , he is showing signs of symptomatic anemia this morning despite his hemoglobin at 7.2. for this i would transfuse 2 units to help with his symptoms. corrected calcium level is normal . Mg is >2. I will continue to monitor the patient as inpatient for any further episodes of bleeding, and closely monitor his hemoglobin and symptoms Plan: Acute blood loss anemia secondary to GI bleed -Dark blood per rectum -Hold Xarelto (cardiology was planning on cardiac ablation in the future), continue aspirin and Plavix with recent PCI last week -IV PPI twice a day -CBC every 8 hours - Transfuse as needed for hemoglobin less than 7 or symptomatic anemia EGD failed to show source of bleeding, small bowel camera felt to be inserted due to proximal esophageal strictures Myeloproliferative disorder with resulting leukocytosis, thrombocytosis, and anemia -On Procrit once weekly, oncology to determine whether Epogen should be used instead during this hospital stay -Consult Dr. Miller for management of blood products -Follow CBC P. Atrial flutter -Rate controlled currently -Telemetry -Hold Xarelto -Continue Lopressor with hold parameters Congestive heart failure, compensated with unknown ejection fraction Lasix on hold due to hypotension -Continue with Lopressor and Aldactone. With hold parameters, Not chronically on EARNEST inhibitor Hypomagnesemia Resolved BPH -Continue with Hytrin Known severe peripheral arterial disease -Continue with aspirin and Plavix, Lipitor Moderate protein malnutrition -Patient currently nothing by mouth, consider dietary consultation once able to have oral intake. Chronic: Hypertension Dyslipidemia Severe pulmonary hypertension Prior GI bleed Esophagitis DVT prophylaxis: SCDs due to GI bleeding Patient will be discharged once hemoglobin is stable for over 24 hours continue to monitor the patient as inpatient for any further episodes of bleeding, and closely monitor his hemoglobin and symptoms
[2019-02-15 14:14] LABS: Anisocytosis Moderate; HCT 21.7 % (39.0-53.0); HGB 7.1 gm/dL (13.0-17.5); Hypochromasia Moderate; MCH 30.9 pg (25.0-35.0); MCHC 32.9 g/dL (31.0-37.0); MCV 93.9 fL (80.0-100.0); Macrocytosis Slight; Mean Platelet Volume 10.6; Platelet Count 241 k/uL (150-450); Poikilocytosis Moderate; RBC 2.31 m/uL (4.30-5.90); RDW 22.7 % (11.5-15.5); WBC 35.8 k/uL (3.8-10.6)
[2019-02-15] MEDS: ACETAMINOPHEN TAB 325 MG TAB PO PRN (15:20)
[2019-02-15 16:39] LABS: Glucose,Whole Blood 135 mg/dL (75-99)
--- NOTE | 2019-02-15 19:02 | P.PN ---
Subjective Progress Note Date: 02/15/19 Principal diagnosis: Melena, anemia of acute blood loss Patient is seen lying in bed. He is tolerating his diet. 2 dark bowel movements yesterday. Patient reports feeling fatigued with chills. Objective - Vital Signs Vital signs: Vital Signs Temp 98 F 02/15/19 08:15 Pulse 93 02/15/19 08:15 Resp 18 02/15/19 08:15 BP 101/63 02/15/19 08:15 Pulse Ox 99 02/15/19 08:15 Intake & Output 02/14/19 02/15/19 02/15/19 18:59 06:59 18:59 Intake Total 690 310 90 Output Total 1550 1000 Balance -860 -690 90 Weight 79.2 kg Intake: IV 200 Oral 180 90 Blood Product 310 310 Rc Irr As1 Unit 310 [id number] Rc Irr As1 Unit 310 [id number] Output: Urine 750 1000 Stool 800 Other: Voiding Method Urinal # Voids 0 0 # Bowel Movements 1 1 - Exam On physical examination, patient appears comfortable in no apparent distress. HEAD: Normocephalic, atraumatic. EYES: No scleral icterus. No conjunctival injection. MOUTH: No lesions, tongue midline. NECK: Trachea midline, no gross abnormalities. CHEST: Decreased air entry in all lung ross. HEART: Irregularly irregular. ABDOMEN: Soft, obese. Bowel sounds are positive. No organomegaly. No guarding o r rigidity. EXTREMITIES: No pedal edema. SKIN: No rashes, no jaundice. NEUROLOGIC: Alert and oriented. No focal deficits. - Labs CBC & Chem 7: 02/15/19 10:49 02/15/19 10:49 Labs: Abnormal Lab Results - Last 24 Hours (Table) 02/12/19 02/14/19 02/14/19 Range/Units 14:15 11:22 13:06 WBC 41.0 H (3.8-10.6) k/uL RBC 2.62 L (4.30-5.90) m/uL Hgb 7.8 L (13.0-17.5) gm/dL Hct 25.7 L (39.0-53.0) % MCHC 30.2 L (31.0-37.0) g/dL RDW 22.2 H (11.5-15.5) % Neutrophils # (Manual) 37.70 H (1.3-7.7) k/uL Monocytes # (Manual) 1.64 H (0-1.0) k/uL Metamyelocytes # (Man) 0.41 H (0) k/uL Myelocytes # (Manual) 0.41 H (0) k/uL Nucleated RBCs 9 H (0-0) /100 WBC POC Glucose (mg/dL) 165 H (75-99) mg/dL Crossmatch See Detail 02/14/19 02/14/19 02/14/19 Range/Units 17:08 19:01 20:56 WBC 32.6 H (3.8-10.6) k/uL RBC 2.15 L (4.30-5.90) m/uL Hgb 6.5 L* (13.0-17.5) gm/dL Hct 21.1 L (39.0-53.0) % MCHC 30.8 L (31.0-37.0) g/dL RDW 22.6 H (11.5-15.5) % Neutrophils # (Manual) 28.00 H (1.3-7.7) k/uL Monocytes # (Manual) (0-1.0) k/uL Metamyelocytes # (Man) 0.98 H (0) k/uL Myelocytes # (Manual) 1.30 H (0) k/uL Nucleated RBCs 5 H (0-0) /100 WBC POC Glucose (mg/dL) 136 H 149 H (75-99) mg/dL Crossmatch 02/15/19 02/15/19 Range/Units 04:13 05:48 WBC 37.2 H (3.8-10.6) k/uL RBC 2.41 L (4.30-5.90) m/uL Hgb 7.2 L (13.0-17.5) gm/dL Hct 22.5 L (39.0-53.0) % MCHC (31.0-37.0) g/dL RDW 21.8 H (11.5-15.5) % Neutrophils # (Manual) (1.3-7.7) k/uL Monocytes # (Manual) (0-1.0) k/uL Metamyelocytes # (Man) (0) k/uL Myelocytes # (Manual) (0) k/uL Nucleated RBCs (0-0) /100 WBC POC Glucose (mg/dL) 131 H (75-99) mg/dL Crossmatch Assessment and Plan (1) Melena Narrative/Plan: Patient with recurrent episodes of melena. EGD performed with no source of GI bleeding or fresh or old blood noted. Likely small bowel source. Attempts have video capsule endoscopy has failed in the past with the patient being unable to swallow the capsule as well as having delayed transit time precluding a full examination of the small bowel. Attempted placement of the video capsule on EGD was unsuccessful bleed in the setting of the patient's esophageal stricture. Current Visit: Yes Status: Acute Code(s): K92.1 - MELENA SNOMED Code(s): 8469528 (2) Acute blood loss anemia Current Visit: No Status: Acute Code(s): D62 - ACUTE POSTHEMORRHAGIC ANEMIA SNOMED Code(s): 623472820 (3) Petty's esophagus with dysplasia Narrative/Plan: Patient has had biopsy-proven Petty's esophagus with dysplasia noted in the past and was referred to [facility] but has failed to follow-up due to multiple medical comorbidities. Current Visit: No Status: Acute Code(s): K22.719 - PETTY'S ESOPHAGUS WITH DYSPLASIA, UNSPECIFIED SNOMED Code(s): 3649283439158905 Plan: Supportive care Okay for liquid diet Continue to monitor for signs and symptoms of GI bleeding Continue monitor hemoglobin and transfuse as needed If further bleeding consideration is for a push enteroscopy although this would be low yield given previous endoscopies without finding of bleeding, patient could also be considered for referral to a tertiary center where he could undergo evaluation with double-balloon endoscopy or CT angiography with coiling if a source of bleeding is found Thank you for allowing us to participate in the care of the patient we will co maury to follow
[2019-02-15 21:15] LABS: Glucose,Whole Blood 137 mg/dL (75-99)
[2019-02-15 22:51] LABS: Anisocytosis Moderate; HGB 8.2 gm/dL (13.0-17.5); Hypochromasia Slight; MCHC 32.9 g/dL (31.0-37.0); MCV 91.1 fL (80.0-100.0); Macrocytosis Slight; Mean Platelet Volume 10.4; Platelet Count 187 k/uL (150-450); Poikilocytosis Slight; RBC 2.75 m/uL (4.30-5.90); RDW 20.3 % (11.5-15.5); WBC 28.4 k/uL (3.8-10.6)
[2019-02-16] MEDS: ACETAMINOPHEN TAB 325 MG TAB PO PRN ×2 (03:05→21:47)
[2019-02-16] MEDS ORDERED: FUROSEMIDE 10 MG/ML 2 ML VIAL IV ONE (04:35)
[2019-02-16] MEDS: ALPRAZolam 0.25 MG TAB PO PRN ×2 (04:46→22:33)
[2019-02-16] MEDS: METOPROLOL TARTRATE 50 MG TAB PO SCH ×3 (06:33→16:46)
[2019-02-16 06:44] LABS: Glucose,Whole Blood 112 mg/dL (75-99)
[2019-02-16 06:52] LABS: Anisocytosis Moderate; HCT 25.5 % (39.0-53.0); HGB 8.5 gm/dL (13.0-17.5); Hypochromasia Slight; MCH 30.3 pg (25.0-35.0); MCHC 33.5 g/dL (31.0-37.0); MCV 90.6 fL (80.0-100.0); Macrocytosis Slight; Platelet Count 202 k/uL (150-450); Poikilocytosis Moderate; RBC 2.81 m/uL (4.30-5.90); RDW 20.4 % (11.5-15.5); WBC 30.2 k/uL (3.8-10.6)
[2019-02-16] MEDS: ISOSORBIDE MONONITRATE ER 15 MG TAB PO SCH (09:21)
[2019-02-16] MEDS: CLOPIDOGREL 75 MG TAB PO SCH (09:21)
[2019-02-16] MEDS: DOXAZOSIN 4 MG TAB PO SCH (09:21)
[2019-02-16] MEDS: ATORVASTATIN 40 MG TAB PO SCH (09:21)
[2019-02-16] MEDS: SPIRONOLACTONE 25 MG TAB PO SCH (09:22)
[2019-02-16] MEDS: PANTOPRAZOLE 40 MG/10 ML VIAL IVP SCH (09:22)
[2019-02-16] MEDS: ASPIRIN 81 MG PO SCH (09:22)
--- NOTE | 2019-02-16 10:20 | CDI ---
Documentation Clarification Form Date: 02/16/2019 10:03:00 AM From: Erica Mariee RN, CCDS Admit Date: 02/12/2019 3:37:00 PM Patient Name: Jacques Burk Visit Number: [id number] Discharge Date: ATTENTION: The Clinical Documentation Specialists (CDI) and [facility] Coding Staff appreciate your assistance in clarifying documentation. Please respond to the clarification below the line at the bottom and electronically sign. The CDI & [facility] Coding staff will review the response and follow-up if needed. Please note: Queries are made part of the Legal Health Record. If you have any questions, please contact the author of this message via ITS. Dr. Roberto Carlos Blackman Atrial Flutter is documented in the ongoing progress notes and further clarification is needed. History/Risk factors: Atrial Flutter, Coronary Artery disease, Heart Failure, Hypertension, Myeloproliferative disorder GI Bleed, Clinical Indicators: present with suspected GI bleed. He does complain of some mild dyspnea and lightheadedness. EKG/telemetry: Atrial Flutter rate 95 Treatment: Telemetry monitoring Lopressor Po In your professional opinion, in order to capture the severity of condition; can you please clarify the type of Atrial Flutter if known? Typical/Type I Atypical/Type II Other, please specify Unable to determine (Last Revision: February 2018) unable to determine , please forward to cardiology on the case. thank you LORNA
[2019-02-16] MEDS: SODIUM FERRIC GLUCONAT-SUCROSE 125 MG in SODIUM CHLORIDE 0.9% 100 ML IVPB SCH (10:43)
[2019-02-16 11:16] LABS: Anisocytosis Moderate; HCT 26.4 % (39.0-53.0); HGB 8.8 gm/dL (13.0-17.5); Hypochromasia Slight; MCH 30.3 pg (25.0-35.0); MCHC 33.3 g/dL (31.0-37.0); MCV 91.2 fL (80.0-100.0); Macrocytosis Slight; Mean Platelet Volume 9.7; Platelet Count 204 k/uL (150-450); Poikilocytosis Moderate; RBC 2.89 m/uL (4.30-5.90); RDW 20.6 % (11.5-15.5); WBC 30.2 k/uL (3.8-10.6)
--- NOTE | 2019-02-16 11:47 | P.PN ---
Subjective Progress Note Date: 02/16/19 Principal diagnosis: patient is seen and examined in follow up for GI bleeding patient seen and examined , patient is breathing patient hasn't had any other bowel movements yesterday however this morning he had small bowel movement which was black and Tarry. He denies any fresh red blood per rectum. Denies any chest pain or shortness breath at this point. I had long discussion with him about possible outcomes during this hospital course. Patient denies any fevers or chills Objective - Vital Signs Vital signs: Vital Signs Temp 98.2 F 02/16/19 08:00 Pulse 93 02/16/19 08:00 Resp 18 02/16/19 08:00 BP 106/64 02/16/19 08:00 Pulse Ox 98 02/16/19 08:00 Intake & Output 02/15/19 02/16/19 02/16/19 18:59 06:59 18:59 Intake Total 500 310 760 Output Total 400 200 Balance 500 -90 560 Intake: IV 10 Invasive Line 3 10 Intake, IV Titration 100 150 Amount Sodium Chloride 0.9% 1, 150 000 ml @ 50 mls/hr IV . Q20H JOSE Rx#:[id number] Sodium Ferric Gluconat- 100 Sucrose 125 mg In Sodium Chloride 0.9% 100 ml @ 100 mls/hr IVPB DAILY JOSE Rx#:[id number] Oral 90 600 Blood Product 310 310 Rc Irr As1 Unit 0 310 [id number] Rc Irr As1 Unit 310 [id number] Output: Urine 400 200 Other: Voiding Method Bedside Commode # Voids 0 1 # Bowel Movements 1 - Exam General , alert, not in any acute distress. Seems to be calm and comfortable very pleasant. Chest good breath sounds bilaterally clear to auscultation, no wheezing rhonci or rales. CVS normal s1, s2, regular rate and rhythm, no murmurs, no gallops , no rubs, no peripheral edema. capillary refill is immediate over toes. Abd , soft lax, no tenderness to palpation , BS positive psych alert oriented to place time and person, fair judgment neuro , no focal deficits. - Labs CBC & Chem 7: 02/16/19 11:08 02/15/19 10:49 Labs: Abnormal Lab Results - Last 24 Hours (Table) 02/12/19 02/15/19 02/15/19 Range/Units 14:15 10:49 11:44 WBC 35.8 H (3.8-10.6) k/uL RBC 2.31 L (4.30-5.90) m/uL Hgb 7.1 L (13.0-17.5) gm/dL Hct 21.7 L (39.0-53.0) % RDW 22.7 H (11.5-15.5) % POC Glucose (mg/dL) 134 H (75-99) mg/dL Crossmatch See Detail 02/15/19 02/15/19 02/15/19 Range/Units 16:34 21:10 22:41 WBC 28.4 H (3.8-10.6) k/uL RBC 2.75 L (4.30-5.90) m/uL Hgb 8.2 L (13.0-17.5) gm/dL Hct 25.0 L (39.0-53.0) % RDW 20.3 H (11.5-15.5) % POC Glucose (mg/dL) 135 H 137 H (75-99) mg/dL Crossmatch 02/16/19 02/16/19 02/16/19 Range/Units 06:18 06:41 11:08 WBC 30.2 H 30.2 H (3.8-10.6) k/uL RBC 2.81 L 2.89 L (4.30-5.90) m/uL Hgb 8.5 L 8.8 L (13.0-17.5) gm/dL Hct 25.5 L 26.4 L (39.0-53.0) % RDW 20.4 H 20.6 H (11.5-15.5) % POC Glucose (mg/dL) 112 H (75-99) mg/dL Crossmatch Assessment and Plan Assessment: Patient is a 79-year-old male past medical history of prior GI bleed requiring 11 units of packed red blood cells per the patient, myeloproliferative disorder requiring recurrent transfusions and weekly Procrit, atrial fibrillation, coronary artery disease with recent stent placement on 02/04/19 to the right coronary artery, hypertension, and dyslipidemia who presented to the emergency department with complaints of dark tarry stools. Patient was seen by Dr. Pelayo last week had a stent placed. They wanted to do a cardioversion and he was therefore started on Xarelto this Saturday. Dr. Pelayo had cleared this with Dr. Miller. Patient started noting dark tarry stools the day after starting Xarelto. In the ER He was found to have a hemoglobin of 6.8 with hematocrit of 20.9. His total white blood cells were 45.6 which is elevated. His found to be hypomagnesemic at 1.5 . 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 He follows up with Dr. Miller once monthly and gets weekly Procrit injections. He had been receiving chronic transfusions but states he has not needed any in the last 3 months. he reports that he was hospitalized for a GI bleed back in April was seen by Dr. Kwan at upper, lower, and capsule endoscopies. They did not find a definitive source of his bleeding at that point in time but he was taken off of Xarelto. He was maintained on aspirin and Plavix secondary to his known coronary and peripheral arterial disease. 02/14 patient has received a total of 4 blood units since presentation, currently his hemoglobin is stable about 7. He tolerated EGD well today, source of bleed ing was not identified. Patient has gastritis and Wilson's esophagitis no biopsies taken due to being on aspirin and Plavix for his recent PCI. Patient has proximal esophageal stricture which limited the ability of deploying small bowel camera. GI recommending referral to [facility] after discharge for Wilson's ablation. 02/15, patient received another unit last night , for total of 5 units during this hospital stay. he continues to have black tarry stools, but reports improving , he is showing signs of symptomatic anemia this morning despite his hemoglobin at 7.2. for this i would transfuse 2 units to help with his symptoms. corrected calcium level is normal . Mg is >2. I will continue to monitor the patient as inpatient for any further episodes of bleeding, and closely monitor his hemoglobin and symptoms 02/16 patient reports no further bloody bowel movements yesterday other than the one in the [employer] yesterday. Today he had one bowel movement so far this morning with small well-formed tarry black in color. Denies any fresh blood per rectum. Depends on the clinical course over the next 48 hours if hemoglobin continues to be stable and improving patient is not having any bloody bowel movements then possible discharge home tomorrow and to continue to follow-up with GI as an outpatient and to consider to follow up with [facility] for better techniques to try to get the double balloon endoscopy and possibly CT angios with coiling if patient continues to have bleeding which I would consider transferring during this hospital course of his hemoglobin drops again and he continues to have bloody bowel movements. Patient agreeable with this plan. Patient should avoid blood thinners especially Xarelto upon discharge as this is the second episode of GI bleeding with Xarelto. Patient is to continue taking Plavix and aspirin due to recent stents. Overall he is doing better signs and symptoms of anemia are improving his hemoglobin is improving. Plan: Acute blood loss anemia secondary to GI bleed, improving -Dark blood per rectum -Hold Xarelto (cardiology was planning on cardiac ablation in the future), continue aspirin and Plavix with recent PCI last week -Switched to by mouth PPI twice a day -CBC every 8 hours - Transfuse as needed for hemoglobin less than 7 or symptomatic anemia EGD failed to show source of bleeding, small bowel camera felt to be inserted due to proximal esophageal strictures Patient received a total of 7 units of blood during this hospital course Myeloproliferative disorder with resulting leukocytosis, thrombocytosis, and anemia -On Procrit once weekly, oncology to determine whether Epogen should be used instead during this hospital stay -Consult Dr. Miller for management of blood products -Follow CBC P. Atrial flutter -Rate controlled currently -Telemetry -Hold Xarelto -Continue Lopressor with hold parameters Congestive heart failure, compensated with unknown ejection fraction Lasix on hold due to hypotension -Continue with Lopressor and Aldactone. With hold parameters, Not chronically on EARNEST inhibitor BPH -Continue with Hytrin Known severe peripheral arterial disease -Continue with aspirin and Plavix, Lipitor Moderate protein malnutrition -Patient currently nothing by mouth, consider dietary consultation once able to have oral intake. Chronic: Hypertension Dyslipidemia Severe pulmonary hypertension Prior GI bleed Esophagitis DVT prophylaxis: SCDs due to GI bleeding Patient will be discharged once hemoglobin is stable for over 24 hours Continue to monitor and patient for another day for any further episodes of bleeding or drops in hemoglobin, this happens then patient should be transferred to [facility] for further testing possible CT angiogram with coiling., If hemoglobin is stable and improving with no further bloody bowel movements and patient will be possibly discharge home tomorrow to avoid any blood thinners, and is okay to continue with aspirin and Plavix due to recent PCI
[2019-02-16 11:49] LABS: Glucose,Whole Blood 114 mg/dL (75-99)
[2019-02-16 12:59] VITALS: BMI 27.3
--- NOTE | 2019-02-16 13:18 | CDI ---
Documentation Clarification Form Date: 02/16/2019 10:03:00 AM From: Erica Mariee RN, CCDS Admit Date: 02/12/2019 3:37:00 PM Patient Name: Jacques Burk Visit Number: [id number] Discharge Date: ATTENTION: The Clinical Documentation Specialists (CDI) and [facility] Coding Staff appreciate your assistance in clarifying documentation. Please respond to the clarification below the line at the bottom and electronically sign. The CDI & [facility] Coding staff will review the response and follow-up if needed. Please note: Queries are made part of the Legal Health Record. If you have any questions, please contact the author of this message via ITS. Dr. Roberto Carlos Blackman Atrial Flutter is documented in the ongoing progress notes and further clarification is needed. History/Risk factors: Atrial Flutter, Coronary Artery disease, Heart Failure, Hypertension, Myeloproliferative disorder GI Bleed, Clinical Indicators: present with suspected GI bleed. He does complain of some mild dyspnea and lightheadedness. EKG/telemetry: Atrial Flutter rate 95 Treatment: Telemetry monitoring Lopressor Po In your professional opinion, in order to capture the severity of condition; can you please clarify the type of Atrial Flutter if known? Typical/Type I Atypical/Type II Other, please specify Unable to determine (Last Revision: February 2018) I reviewed patient medical records, and reviewed most recent cardiology evaluation Unable to determine based on these records. LORNA
--- NOTE | 2019-02-16 14:20 | P.PN ---
Subjective Progress Note Date: 02/16/19 Principal diagnosis: Melena, anemia of acute blood loss Patient is seen lying in bed. He does report that his last bowel movement was dark. No abdominal pain. No gross bleeding noted. Objective - Vital Signs Vital signs: Vital Signs Temp 98.2 F 02/16/19 08:00 Pulse 93 02/16/19 08:00 Resp 18 02/16/19 08:00 BP 106/64 02/16/19 08:00 Pulse Ox 98 02/16/19 08:00 Intake & Output 02/15/19 02/16/19 02/16/19 18:59 06:59 18:59 Intake Total 500 310 750 Output Total 400 200 Balance 500 -90 550 Intake: Intake, IV Titration 100 150 Amount Sodium Chloride 0.9% 1, 150 000 ml @ 50 mls/hr IV . Q20H JOSE Rx#:[id number] Sodium Ferric Gluconat- 100 Sucrose 125 mg In Sodium Chloride 0.9% 100 ml @ 100 mls/hr IVPB DAILY JOSE Rx#:[id number] Oral 90 600 Blood Product 310 310 Rc Irr As1 Unit 0 310 [id number] Rc Irr As1 Unit 310 [id number] Output: Urine 400 200 Other: Voiding Method Bedside Commode # Voids 0 1 # Bowel Movements 1 - Exam On physical examination, patient appears comfortable in no apparent distress. HEAD: Normocephalic, atraumatic. EYES: No scleral icterus. No conjunctival injection. MOUTH: No lesions, tongue midline. NECK: Trachea midline, no gross abnormalities. CHEST: Decreased air entry in all lung ross. HEART: Irregularly irregular. ABDOMEN: Soft, obese. Bowel sounds are positive. No organomegaly. No guarding or rigidity. EXTREMITIES: No pedal edema. SKIN: No rashes, no jaundice. NEUROLOGIC: Alert and oriented. No focal deficits. - Labs CBC & Chem 7: 02/16/19 11:08 02/15/19 10:49 Labs: Abnormal Lab Results - Last 24 Hours (Table) 02/12/19 02/15/19 02/15/19 Range/Units 14:15 10:49 10:49 WBC 35.8 H (3.8-10.6) k/uL RBC 2.31 L (4.30-5.90) m/uL Hgb 7.1 L (13.0-17.5) gm/dL Hct 21.7 L (39.0-53.0) % RDW 22.7 H (11.5-15.5) % Chloride 115 H (98-107) mmol/L Carbon Dioxide 18 L (22-30) mmol/L BUN 38 H (9-20) mg/dL Glucose 121 H (74-99) mg/dL POC Glucose (mg/dL) (75-99) mg/dL Calcium 6.9 L (8.4-10.2) mg/dL Magnesium 2.6 H (1.6-2.3) mg/dL Crossmatch See Detail 02/15/19 02/15/19 02/15/19 Range/Units 11:44 16:34 21:10 WBC (3.8-10.6) k/uL RBC (4.30-5.90) m/uL Hgb (13.0-17.5) gm/dL Hct (39.0-53.0) % RDW (11.5-15.5) % Chloride (98-107) mmol/L Carbon Dioxide (22-30) mmol/L BUN (9-20) mg/dL Glucose (74-99) mg/dL POC Glucose (mg/dL) 134 H 135 H 137 H (75-99) mg/dL Calcium (8.4-10.2) mg/dL Magnesium (1.6-2.3) mg/dL Crossmatch 02/15/19 02/16/19 02/16/19 Range/Units 22:41 06:18 06:41 WBC 28.4 H 30.2 H (3.8-10.6) k/uL RBC 2.75 L 2.81 L (4.30-5.90) m/uL Hgb 8.2 L 8.5 L (13.0-17.5) gm/dL Hct 25.0 L 25.5 L (39.0-53.0) % RDW 20.3 H 20.4 H (11.5-15.5) % Chloride (98-107) mmol/L Carbon Dioxide (22-30) mmol/L BUN (9-20) mg/dL Glucose (74-99) mg/dL POC Glucose (mg/dL) 112 H (75-99) mg/dL Calcium (8.4-10.2) mg/dL Magnesium (1.6-2.3) mg/dL Crossmatch Assessment and Plan (1) Melena Narrative/Plan: Patient with recurrent episodes of melena. EGD performed with no source of GI bleeding or fresh or old blood noted. Likely small bowel source. Attempts have video capsule endoscopy has failed in the past with the patient being unable to swallow the capsule as well as having delayed transit time precluding a full examination of the small bowel. Attempted placement of the video capsule on EGD was unsuccessful bleed in the setting of the patient's esophageal stricture. Current Visit: Yes Status: Acute Code(s): K92.1 - MELENA SNOMED Code(s): 7087713 (2) Acute blood loss anemia Current Visit: No Status: Acute Code(s): D62 - ACUTE POSTHEMORRHAGIC ANEMIA SNOMED Code(s): 377274349 (3) Petty's esophagus with dysplasia Narrative/Plan: Patient has had biopsy-proven Petty's esophagus with dysplasia noted in the past and was referred to [facility] but has failed to follow-up due to multiple medical comorbidities. Current Visit: No Status: Acute Code(s): K22.719 - PETTY'S ESOPHAGUS WITH DYSPLASIA, UNSPECIFIED SNOMED Code(s): 6508085549116659 Plan: Supportive care Advance diet to full liquid Continue to monitor for signs and symptoms of GI bleeding Continue monitor hemoglobin and transfuse as needed If further bleeding consideration is for a push enteroscopy although this would be low yield given previous endoscopies without finding of bleeding, patient could also be considered for referral to a tertiary center where he could undergo evaluation with double-balloon endoscopy or CT angiography with coiling if a source of bleeding is found Thank you for allowing us to participate in the care of the patient we will continue to follow
--- NOTE | 2019-02-16 15:40 | P.PN ---
Subjective Progress Note Date: 02/16/19 Principal diagnosis: Myeloproliferative Disorder Black Tarry stools appear to have decreased, none overnight and none most of day yesterday, one small formed stool this am, although still black/tarry. Hemoglobin today in safe range 8.8. He has received multiple units of blood this hospitalization.Xarelto remains on hold. GI recommendations maybe to see a tertiary center as outpatient for technique of double balloon endoscopy which is not available at our center. The referral for possible HFH if hemoglobin remains stable and no active bleeding that the patient deemed safed for discharge. Objective - Vital Signs Vital signs: Vital Signs Temp 98.2 F 02/16/19 08:00 Pulse 92 02/16/19 11:53 Resp 16 02/16/19 11:53 BP 97/54 02/16/19 11:53 Pulse Ox 99 02/16/19 11:53 Intake & Output 02/15/19 02/16/19 02/16/19 18:59 06:59 18:59 Intake Total 305 072 2802 Output Total 400 400 Balance 500 -90 1040 Weight 79.2 kg Intake: IV 10 Invasive Line 3 10 Intake, IV Titration 100 150 Amount Sodium Chloride 0.9% 1, 150 000 ml @ 50 mls/hr IV . Q20H JOSE Rx#:[id number] Sodium Ferric Gluconat- 100 Sucrose 125 mg In Sodium Chloride 0.9% 100 ml @ 100 mls/hr IVPB DAILY JOSE Rx#:[id number] Oral 90 1280 Blood Product 310 310 Rc Irr As1 Unit 0 310 [id number] Rc Irr As1 Unit 310 [id number] Output: Urine 400 400 Other: Voiding Method Bedside Commode # Voids 0 1 # Bowel Movements 1 1 - Exam Gen: Alert and Oriented, NAD, Plae Neck: Supple, Mucous Membranes: Dry cracking lips, no thrush or mucocytis No palpable adenopathy supraclavicular, cervical or axillary Lungs: Diminished bibasilar no increased effort seen Heart Rate: Irreg, Reg Abdomen: Mild increased and suprapelvic pain to palpation Extremities: Evidence of insufficient blood flow chronic changes, pedal pulses present 1-2+ edema bilateral pedal Neuro: No new sensory or motor deficits noted - Labs CBC & Chem 7: 02/17/19 07:29 02/17/19 07:29 Labs: Abnormal Lab Results - Last 24 Hours (Table) 02/12/19 02/15/19 02/15/19 Range/Units 14:15 16:34 21:10 WBC (3.8-10.6) k/uL RBC (4.30-5.90) m/uL Hgb (13.0-17.5) gm/dL Hct (39.0-53.0) % RDW (11.5-15.5) % POC Glucose (mg/dL) 135 H 137 H (75-99) mg/dL Crossmatch See Detail 02/15/19 02/16/19 02/16/19 Range/Units 22:41 06:18 06:41 WBC 28.4 H 30.2 H (3.8-10.6) k/uL RBC 2.75 L 2.81 L (4.30-5.90) m/uL Hgb 8.2 L 8.5 L (13.0-17.5) gm/dL Hct 25.0 L 25.5 L (39.0-53.0) % RDW 20.3 H 20.4 H (11.5-15.5) % POC Glucose (mg/dL) 112 H (75-99) mg/dL Crossmatch 02/16/19 02/16/19 Range/Units 11:08 11:34 WBC 30.2 H (3.8-10.6) k/uL RBC 2.89 L (4.30-5.90) m/uL Hgb 8.8 L (13.0-17.5) gm/dL Hct 26.4 L (39.0-53.0) % RDW 20.6 H (11.5-15.5) % POC Glucose (mg/dL) 114 H (75-99) mg/dL Crossmatch Assessment and Plan Plan: Assessment and Recommendations Myelofibrosis: - Mr. Burk is a pleasant 79year old male patient well known to us for monitoring of his chronic anemia and myelofibrosis. He was recently weaned off of treatment with Jakafi as his disease appeared to stop responding. His most recent recommendations from a hematological standpoint was to have evaluation at [facility] in [place], transplant center for evaluation of other options. - Currently he is seen weekly and receives Epogen (Procrit 40K) injections for his anemia of consequence of his bone marrow disorder and treatment effect from Jakafi. - He has received numerous transfusions over the years related to the above, transfusion dependant status has improved on Epogen. Acute on Chronic Macrocytic Anemia - Acute likely related to acute blood loss anemia - GI Loss/Chronic Secondary to Myelofibrosis and Treatment Jakafi - Same as above - Continue with PRBC transfusions if symptomatic under 7.5 - Procrit was due today 40K, will discuss with Dr. Miller whether to continue with interchangeable epogen while admitted to hospital BLE Edema: - Monitor - LE Venous Dopplers - Increase PO Intake Protein, albumin 2.8 Leukocytosis: - Secondary to myeloproliferative disorder Melena - Balck Tarry Stools - Endoscopies performed April 2018 - Without significant evidence of source for bleeding - GI has been consulted. Atrial Fibrillation and Severe Coronary Artery and Peripheral Vascullar Disease: -Cardiology Following - Recently Restarted on Xarelto Last Week Saturday, Admission one year ago rela ema to bleeding on Xarelto - Hold Xarelto at this time, May consider re-challenging anticoagualtion with another choice DOAC - Plavix and ASA Recs per Cardiology Plan: - No transfusion required today, hemoglobin 8.8 - Plan to follow-up at [facility] for technique not available at our hospital to fur ther assess and hopefully control GI Bleeding. NINO Cha
[2019-02-16] MEDS: PANTOPRAZOLE 40 MG TABLET PO SCH (16:46)
[2019-02-16 17:09] LABS: Glucose,Whole Blood 119 mg/dL (75-99)
[2019-02-16 20:59] LABS: Glucose,Whole Blood 114 mg/dL (75-99)
[2019-02-16] MEDS ORDERED: BENZOCAINE/MENTHOL LOZENG 1 EACH LOZENGE MUCOUS MEM PRN (21:50)
[2019-02-16] MEDS ORDERED: IPRATROPIUM-ALBUTEROL 3 ML NEB INHALATION STA (21:54)
[2019-02-17 00:50] LABS: Anisocytosis Moderate; HCT 24.6 % (39.0-53.0); HGB 8.4 gm/dL (13.0-17.5); Hypochromasia Slight; MCH 31.1 pg (25.0-35.0); MCHC 34.2 g/dL (31.0-37.0); MCV 91.1 fL (80.0-100.0); Macrocytosis Slight; Mean Platelet Volume 10.5; Platelet Count 205 k/uL (150-450); Poikilocytosis Moderate; RDW 21.4 % (11.5-15.5); WBC 26.3 k/uL (3.8-10.6)
[2019-02-17 05:51] LABS: Glucose,Whole Blood 111 mg/dL (75-99)
[2019-02-17] MEDS: PANTOPRAZOLE 40 MG TABLET PO SCH (06:29)
[2019-02-17] MEDS: METOPROLOL TARTRATE 50 MG TAB PO SCH ×2 (06:29→12:06)
[2019-02-17 07:55] VITALS: RESP 16; TEMP 97.7
[2019-02-17 08:21] LABS: Anisocytosis Moderate; HCT 27.1 % (39.0-53.0); Hypochromasia Slight; MCH 30.4 pg (25.0-35.0); MCHC 33.3 g/dL (31.0-37.0); MCV 91.5 fL (80.0-100.0); Macrocytosis Slight; Mean Platelet Volume 10.1; Platelet Count 254 k/uL (150-450); Poikilocytosis Moderate; RBC 2.97 m/uL (4.30-5.90); RDW 21.8 % (11.5-15.5)
[2019-02-17 08:30] LABS: Anion Gap 5 mmol/L; Blood Urea Nitrogen 17 mg/dL (9-20); Calcium 6.9 mg/dL (8.4-10.2); Carbon Dioxide 19 mmol/L (22-30); Chloride 113 mmol/L (98-107); Glucose 96 mg/dL (74-99); Potassium 4.3 mmol/L (3.5-5.1); Sodium 137 mmol/L (137-145)
[2019-02-17] MEDS: ATORVASTATIN 40 MG TAB PO SCH (08:38)
[2019-02-17] MEDS: SPIRONOLACTONE 25 MG TAB PO SCH (08:38)
[2019-02-17] MEDS: ISOSORBIDE MONONITRATE ER 15 MG TAB PO SCH (08:38)
[2019-02-17] MEDS: DOXAZOSIN 4 MG TAB PO SCH (08:38)
[2019-02-17] MEDS: ASPIRIN 81 MG PO SCH (08:38)
[2019-02-17] MEDS: CLOPIDOGREL 75 MG TAB PO SCH (08:38)
[2019-02-17 09:16] LABS: Band Neutrophils % 5 %; Eosinophils # (M) 0.61 k/uL (0-0.7); Lymphocytes # (M) 1.83 k/uL (1.0-4.8); Metamyelocytes # (M) 1.53 k/uL (0); Metamyelocytes % 5 %; Monocytes # (M) 1.22 k/uL (0-1.0); Myelocytes # (M) 1.83 k/uL (0); Myelocytes % 6 %; Neutrophils % (M) 73 %; Nucleated Red Blood Cells 3 /100 WBC (0-0); Promyelocytes # (M) 0.31 k/uL (0); Promyelocytes % 1 %; Total Cells Counted 200; WBC 30.5 k/uL (3.8-10.6)
[2019-02-17 09:18] LABS: Toxic Granulation Present
[2019-02-17 09:21] LABS: Polychromasia Present
--- NOTE | 2019-02-17 11:47 | P.DS ---
Providers Date of admission: 02/12/19 15:37 Expected date of discharge: 02/17/19 Attending physician: Alicia Victor DO Consults: 02/12/19 15:38 Consult Physician Urgent Consulting Provider: Jeremy Rebolledo Consult Reason/Comments: GI bleed, anemia Do you want consulting provider notified?: Yes 02/12/19 15:43 Consult Physician Routine Consulting Provider: Armando Miller Consult Reason/Comments: Leukocytosis, anemia Do you want consulting provider notified?: Yes Primary care physician: Leon Franklin Hospital Course: Final diagnoses at discharge Acute symptomatic anemia secondary to acute GI bleeding and identified source GI bleeding from unidentified source, precipitated by Xarelto Myeloproliferative disorder Secondary diagnoses Paroxysmal atrial flutter Congestive heart failure BPH Peripheral arterial disease Moderate protein malnutrition Hypertension Hyperlipidemia Pulmonary hypertension Hospital course Patient is a 79-year-old male past medical history of prior GI bleed requiring 11 units of packed red blood cells per the patient, myeloproliferative disorder requiring recurrent transfusions and weekly Procrit, atrial fibrillation, coronary artery disease with recent stent placement on 02/04/19 to the right coronary artery, hypertension, and dyslipidemia who presented to the emergency department with complaints of dark tarry stools. Patient was seen by Dr. Pelayo last week had a stent placed. They wanted to do a cardioversion and he was therefore started on Xarelto this Saturday. Dr. Pelayo had cleared this with Dr. Miller. Patient started noting dark tarry stools the day after starting Xarelto. In the ER He was found to have a hemoglobin of 6.8 with hematocrit of 20.9. His total white blood cells were 45.6 which is elevated. His found to be hypomagnesemic at 1.5 . 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 He follows up with Dr. Miller once monthly and gets weekly Procrit injections. He had been receiving chronic transfusions but states he has not needed any in the last 3 months. he reports that he was hospitalized for a GI bleed back in April was seen by Dr. Kwan at upper, lower, and capsule e ndoscopies. They did not find a definitive source of his bleeding at that point in time but he was taken off of Xarelto. He was maintained on aspirin and Plavix secondary to his known coronary and peripheral arterial disease. 02/14 patient has received a total of 4 blood units since presentation, currently his hemoglobin is stable about 7. He tolerated EGD well today, source of bleeding was not identified. Patient has gastritis and Wilson's esophagitis no biopsies taken due to being on aspirin and Plavix for his recent PCI. Patient has proximal esophageal stricture which limited the ability of deploying small bowel camera. GI recommending referral to [facility] after discharge for Wilson's ablation. 02/15, patient received another unit last night , for total of 5 units during this hospital stay. he continues to have black tarry stools, but reports improving , he is showing signs of symptomatic anemia this morning despite his hemoglobin at 7.2. for this i would transfuse 2 units to help with his symptoms. corrected calcium level is normal . Mg is >2. I will continue to monitor the patient as inpatient for any further episodes of bleeding, and closely monitor his hemoglobin and symptoms 02/16 patient reports no further bloody bowel movements yesterday other than the one in the route process administrator yesterday. Today he had one bowel movement so far this morning with small well-formed tarry black in color. Denies any fresh blood per rectum. Depends on the clinical course over the next 48 hours if hemoglobin continues to be stable and improving patient is not having any bloody bowel movements then possible discharge home tomorrow and to continue to follow-up with GI as an outpatient and to consider to follow up with [facility] GI specialists for better techniques to try to get the double balloon endoscopy and possibly CT angios with coiling if patient continues to have bleeding which I would consider transferring during this hospital course of his hemoglobin drops again and he continues to have bloody bowel movements. Patient agreeable with this plan. 02/17 patient continues to do well no further bloody bowel movements. Patient currently asymptomatic no shortness of breath no dizziness is ambulating in the room independently. However he is worried about further episodes of bleeding. I had prolonged discussion with the patient and social service assistant in the room to offer patient resources. Patient hemoglobin continues to be stable today and improving without requiring any blood transfusion for over 24 hours. No further episodes of GI bleeding for over 24 hours. Patient will require to follow up outpatient with GI specialty at [facility] to offer him techniques that will help identify possibly source of bleeding like double balloon endoscopy and CT angios with coiling source of bleeding identified. Patient was kept on SCDs for deep prophylaxis due to significant GI bleeding requiring massive blood transfusion. Early ambulation was encouraged. Patient seen and examined today, seems to be stable with no further GI bleeding. Had some epistaxis overnight most likely due to dryness from nasal cannula oxygen and patient admits to picking up his nose which resulted in the bleeding which has since stopped. General , alert, not in any acute distress. very pleasant. Chest good breath sounds bilaterally clear to auscultation, no wheezing rhonci or rales. CVS normal s1, s2, regular rate and rhythm, no murmurs, no gallops , no rubs, no peripheral edema. capillary refill is immediate over toes. Abd , soft lax, no tenderness to palpation , BS positive psych alert oriented to place time and person, fair judgment neuro , no focal deficits. Patient should avoid blood thinners especially Xarelto upon discharge as this is the second episode of GI bleeding with Xarelto. Patient is to continue taking Plavix and aspirin due to recent stents. Overall he is doing better signs and symptoms of anemia are improving his hemoglobin is improving. Patient will require close follow-up with his PCP, was [place] of state, covering outpatient physicians information was offered to the patient he will follow-up with Dr. Rae Patient follow-up with hematology service Dr. Miller was already established. Home health services will be offered, visiting nurse to draw blood tomorrow check his hemoglobin level results are to be sent to Dr. Miller's office and Dr. Rae's office. Butch's office. Patient should avoid Xarelto but is okay to continue on Plavix and aspirin due to recent PCI. 40 minutes were spent discharging this patient, and more than 50% of the time was spent in counseling the patient and family and in coordinating care. Procedures: EGD failed to show source of bleeding Could not deploy small intestine camera capsule due to strictures. Patient Condition at Discharge: Stable Plan - Discharge Summary New Discharge Prescriptions: New Doxazosin [Cardura] 4 mg PO DAILY tab Continue Atorvastatin [Lipitor] 40 mg PO DAILY Spironolactone [Aldactone] 25 mg PO DAILY Aspirin 81 mg PO DAILY #30 chew Clopidogrel [Plavix] 75 mg PO DAILY #30 tab Pantoprazole Sodium [Protonix] 40 mg PO DAILY Isosorbide Mononitrate [Isosorbide Mononitrate ER] 15 mg PO DAILY Metoprolol Tartrate [Lopressor] 50 mg PO TID-W/MEALS rOPINIRole HCL [Requip] 1 mg PO HS Discontinued Terazosin [Hytrin] 5 mg PO DAILY Furosemide [Lasix] 40 mg PO BID@0200,1400 Rivaroxaban [Xarelto] 15 mg PO HS Doxycycline [Vibramycin] 100 mg PO DAILY Discharge Medication List Atorvastatin [Lipitor] 40 mg PO DAILY 09/27/14 [History] Spironolactone [Aldactone] 25 mg PO DAILY 11/12/17 [History] Aspirin 81 mg PO DAILY #30 chew 04/07/18 [Rx] Clopidogrel [Plavix] 75 mg PO DAILY #30 tab 04/07/18 [Rx] Pantoprazole Sodium [Protonix] 40 mg PO DAILY 07/14/18 [History] Isosorbide Mononitrate [Isosorbide Mononitrate ER] 15 mg PO DAILY 01/29/19 [History] Metoprolol Tartrate [Lopressor] 50 mg PO TID-W/MEALS 02/12/19 [History] rOPINIRole HCL [Requip] 1 mg PO HS 02/12/19 [History] Doxazosin [Cardura] 4 mg PO DAILY tab 02/17/19 [Rx] Follow up Appointment(s)/Referral(s): Armando Miller MD [STAFF PHYSICIAN] - 02/26/19 11:45 am () Landry Simmons MD [STAFF PHYSICIAN] - 02/24/19 11:00 am (Covering for Dr. Franklin -appointment is with RAYMOND Rucker) Jeremy Rebolledo MD [STAFF PHYSICIAN] - 03/03/19 11:30 am (Saturday) Ambulatory/Diagnostic Orders: Complete Blood Count w/diff [LAB.AMB] Location: None Selected Patient Instructions/Handouts: Gastritis (DC), Gastrointestinal Bleeding (DC), Diet for Stomach Ulcers and Gastritis (ED) Activity/Diet/Wound Care/Special Instructions: [facility] [phone] Care Plan Goals (MU): monitor for any signs of bleeding , go to the nearest ER, if you start to have bleeding, or start experiencing symptoms of anemia like black out , feeling dizz y and lightheaded, shortness of breath to name few Discharge Disposition: HOME WITH HOME HEALTH SERVICES
[2019-02-17 12:06] VITALS: BP 108/59; PULSE 93
--- NOTE | 2019-02-17 12:19 | P.PN ---
Subjective Progress Note Date: 02/17/19 Principal diagnosis: Melena, anemia of acute blood loss Discharge. No bleeding. Denies abdominal pain. Hemoglobin 9. Objective - Vital Signs Vital signs: Vital Signs Temp 97.7 F 02/17/19 07:49 Pulse 93 02/17/19 12:00 Resp 16 02/17/19 12:00 BP 108/59 02/17/19 12:00 Pulse Ox 95 02/17/19 12:00 Intake & Output 02/16/19 02/17/19 02/17/19 18:59 06:59 18:59 Intake Total 2030 600 120 Output Total 400 600 300 Balance 1630 0 -180 Weight 79.2 kg 81.2 kg Intake: IV 10 Invasive Line 3 10 Intake, IV Titration 500 Amount Sodium Chloride 0.9% 1, 400 000 ml @ 50 mls/hr IV . Q20H JOSE Rx#:[id number] Sodium Ferric Gluconat- 100 Sucrose 125 mg In Sodium Chloride 0.9% 100 ml @ 100 mls/hr IVPB DAILY JOSE Rx#:[id number] Oral 1520 600 120 Output: Urine 400 600 300 Other: Voiding Method Bedside Commode # Voids 1 0 # Bowel Movements 1 - Exam General appearance: The patient is alert, oriented, in no acute distress. HET: Head is normocephalic and atraumatic. Pupils are equal and reactive. Oropharynx is clear without lesions. Neck: Supple without lymphadenopathy. Trachea midline. Heart: S1 S2. Regular rate and rhythm. Lungs: No crackles or wheezes are heard. Abdomen: Soft, nontender, nondistended with bowel sounds. No peritoneal signs. No palpable organomegaly or masses. Extremities: Normal skin color and turgor. No cyanosis, rash, ulceration, clubbing, or edema. Radial and pedal pulses are 2/4 bilaterally. Neurological: No focal deficits. Strength and sensation are grossly intact. - Labs CBC & Chem 7: 02/17/19 07:29 02/17/19 07:29 Labs: Abnormal Lab Results - Last 24 Hours (Table) 02/16/19 02/16/19 02/16/19 Range/Units 06:18 16:50 20:58 WBC (3.8-10.6) k/uL RBC (4.30-5.90) m/uL Hgb (13.0-17.5) gm/dL Hct (39.0-53.0) % RDW (11.5-15.5) % Neutrophils # (Manual) (1.3-7.7) k/uL Monocytes # (Manual) (0-1.0) k/uL Metamyelocytes # (Man) (0) k/uL Myelocytes # (Manual) (0) k/uL Promyelocytes # (Man) (0) k/uL Nucleated RBCs (0-0) /100 WBC Haptoglobin <8.0 L (31.2-198.0) mg/dL Chloride (98-107) mmol/L Carbon Dioxide (22-30) mmol/L POC Glucose (mg/dL) 119 H 114 H (75-99) mg/dL Calcium (8.4-10.2) mg/dL 02/17/19 02/17/19 02/17/19 Range/Units 00:31 05:49 07:29 WBC 26.3 H 30.5 H (3.8-10.6) k/uL RBC 2.70 L 2.97 L (4.30-5.90) m/uL Hgb 8.4 L 9.0 L (13.0-17.5) gm/dL Hct 24.6 L 27.1 L (39.0-53.0) % RDW 21.4 H 21.8 H (11.5-15.5) % Neutrophils # (Manual) 23.70 H (1.3-7.7) k/uL Monocytes # (Manual) 1.22 H (0-1.0) k/uL Metamyelocytes # (Man) 1.53 H (0) k/uL Myelocytes # (Manual) 1.83 H (0) k/uL Promyelocytes # (Man) 0.31 H (0) k/uL Nucleated RBCs 3 H (0-0) /100 WBC Haptoglobin (31.2-198.0) mg/dL Chloride (98-107) mmol/L Carbon Dioxide (22-30) mmol/L POC Glucose (mg/dL) 111 H (75-99) mg/dL Calcium (8.4-10.2) mg/dL 02/17/19 Range/Units 07:29 WBC (3.8-10.6) k/uL RBC (4.30-5.90) m/uL Hgb (13.0-17.5) gm/dL Hct (39.0-53.0) % RDW (11.5-15.5) % Neutrophils # (Manual) (1.3-7.7) k/uL Monocytes # (Manual) (0-1.0) k/uL Metamyelocytes # (Man) (0) k/uL Myelocytes # (Manual) (0) k/uL Promyelocytes # (Man) (0) k/uL Nucleated RBCs (0-0) /100 WBC Haptoglobin (31.2-198.0) mg/dL Chloride 113 H (98-107) mmol/L Carbon Dioxide 19 L (22-30) mmol/L POC Glucose (mg/dL) (75-99) mg/dL Calcium 6.9 L (8.4-10.2) mg/dL Assessment and Plan (1) GI bleed Narrative/Plan: Patient with recurrent episodes of melena. EGD performed with no source of GI bleeding or fresh or old blood noted. Likely small bowel source. Attempts have video capsule endoscopy has failed in the past with the patient being unable to swallow the capsule as well as having delayed transit time precluding a full examination of the small bowel. Attempted placement of the video capsule on EGD was unsuccessful bleed in the setting of the patient's esophageal stricture. Current Visit: Yes Status: Acute Code(s): K92.2 - GASTROINTESTINAL HEMORRHAGE, UNSPECIFIED SNOMED Code(s): 24433461 (2) CAD (coronary artery disease) Current Visit: Yes Status: Acute Code(s): I25.10 - ATHSCL HEART DISEASE OF [place] CORONARY ARTERY W/O ANG PCTRS SNOMED Code(s): 50579915 (3) H/O heart artery stent Current Visit: Yes Status: Acute Code(s): Z95.5 - PRESENCE OF CORONARY ANGIOPLASTY IMPLANT AND GRAFT SNOMED Code(s): 728448205 (4) History of coronary artery bypass graft Current Visit: Yes Status: Acute Code(s): Z95.1 - PRESENCE OF AORTOCORONARY BYPASS GRAFT SNOMED Code(s): 212278187 (5) Abdominal pain Current Visit: No Status: Acute Code(s): R10.9 - UNSPECIFIED ABDOMINAL PAIN SNOMED Code(s): 00902371 (6) Petty's esophagus with dysplasia Current Visit: No Status: Acute Code(s): K22.719 - PETTY'S ESOPHAGUS WITH DYSPLASIA, UNSPECIFIED SNOMED Code(s): 1266444401673783 (7) MDS (myelodysplastic syndrome) Current Visit: No Status: Chronic Code(s): D46.9 - MYELODYSPLASTIC SYNDROME, UNSPECIFIED SNOMED Code(s): 453102763 (8) Coagulopathy Current Visit: Yes Status: Acute Code(s): D68.9 - COAGULATION DEFECT, UNSPECIFIED SNOMED Code(s): 79390816 (9) Acute blood loss anemia Current Visit: Yes Status: Acute Code(s): D62 - ACUTE POSTHEMORRHAGIC ANEMIA SNOMED Code(s): 502759148 (10) Melena Current Visit: Yes Status: Acute Code(s): K92.1 - MELENA SNOMED Code(s): 0237015 Plan: Agreeable for discharge. Diet as tolerated. If patient has recurrent bleeding consideration is for a push enteroscopy although this would be low yield given previous endoscopies without finding of bleeding, patient could also be considered for referral to a tertiary center where he could undergo evaluation with double-balloon endoscopy or CT angiograph y with coiling if a source of bleeding is found return to office in 2-3 weeks for reevaluation. Assessment and plan a care discussed with Dr. Rebolledo
== END 2019-02-17 12:32 | disposition home health service (06) | DRG 378 ==
LOC: EC 13:52 → 3SCARD 15:37
PROVIDERS: ADMIT Internal Medicine; ATTEND Internal Medicine
PROC: 30233N1 Transfusion of Nonautologous Red Blood Cells into Peripheral Vein, Percutaneous Approach (ICD-10-PCS; principal; 2019-02-12)
PROC: 0DJ08ZZ Inspection of Upper Intestinal Tract, Via Natural or Artificial Opening Endoscopic (ICD-10-PCS; 2019-02-14)
DX: K29.71 Gastritis, unspecified, with bleeding (principal); D62 Acute posthemorrhagic anemia; E44.0 Moderate protein-calorie malnutrition; D75.81 Myelofibrosis; D68.9 Coagulation defect, unspecified; I48.92 Unspecified atrial flutter; C94.6 Myelodysplastic disease, not elsewhere classified; D47.1 Chronic myeloproliferative disease; D64.81 Anemia due to antineoplastic chemotherapy; I48.91 Unspecified atrial fibrillation; I50.810 Right heart failure, unspecified; I27.20 Pulmonary hypertension, unspecified; I50.9 Heart failure, unspecified; I11.0 Hypertensive heart disease with heart failure; K57.31 Diverticulosis of large intestine without perforation or abscess with bleeding; K22.2 Esophageal obstruction; E83.42 Hypomagnesemia; I25.10 Atherosclerotic heart disease of native coronary artery without angina pectoris; E78.5 Hyperlipidemia, unspecified; K21.0 Gastro-esophageal reflux disease with esophagitis; I73.9 Peripheral vascular disease, unspecified; I25.2 Old myocardial infarction; K64.8 Other hemorrhoids; K22.719 Barrett's esophagus with dysplasia, unspecified; R35.1 Nocturia; R04.0 Epistaxis; N40.0 Benign prostatic hyperplasia without lower urinary tract symptoms; D46.9 Myelodysplastic syndrome, unspecified; T45.1X5A Adverse effect of antineoplastic and immunosuppressive drugs, initial encounter; T45.515A Adverse effect of anticoagulants, initial encounter; Z71.3 Dietary counseling and surveillance; Z68.28 Body mass index [BMI] 28.0-28.9, adult; Z79.01 Long term (current) use of anticoagulants; Z79.899 Other long term (current) drug therapy; Z79.82 Long term (current) use of aspirin; Z79.02 Long term (current) use of antithrombotics/antiplatelets; Z86.14 Personal history of Methicillin resistant Staphylococcus aureus infection; Z95.1 Presence of aortocoronary bypass graft; Z87.891 Personal history of nicotine dependence; Z90.49 Acquired absence of other specified parts of digestive tract; Z95.5 Presence of coronary angioplasty implant and graft; Z92.21 Personal history of antineoplastic chemotherapy; Z82.49 Family history of ischemic heart disease and other diseases of the circulatory system; Z80.9 Family history of malignant neoplasm, unspecified
CPT/HCPCS: 36415; 43235; 80048; 80053; 81003; 82272; 83010; 83735; 85025; 85027; 85610; 85730; 86850; 86900; 86901; 86920; 94640; 94760; 96361; 96365; 96366; 96375; 96376; 99285

== ENCOUNTER 2019-03-31 12:27 | Inpatient (IN) | payer MEDICARE ==
[2019-03-31] MEDS ORDERED: SODIUM CHLORIDE 0.9% 500 ML 500 ML IV STA (13:29)
--- NOTE | 2019-03-31 13:34 | ED ---
General Adult HPI - General Chief complaint: Chest Pain Stated complaint: Abd pain Time Seen by Provider: 03/31/19 12:50 Source: patient Mode of arrival: ambulatory Limitations: no limitations - History of Present Illness Initial comments: Dictation was produced using [employer] dictation software. please excuse any grammatical, word or spelling errors. Chief Complaint: 79 y male past medical history of H or flutter, coronary artery disease, heart failure presents with chest pain and abdominal pain. History of Present Illness: Patient is 79-year-old male he has multiple comorbidities. He states that he is here for chest pain and abdominal pain. Patient said it sensation of chest pressure abrasion to the left shoulder. He took 2 nitro's that his gave him with improvement of his chest symptoms. Patient has secondary complaint of abdominal symptoms. Patient states he feels as though his belly has been hurting ever since being started on amiodarone therapy 2-3 days ago. Patient has a history of atrial flutter is not taking anticoagulation for history of GI bleed. The ROS documented in this emergency department record has been reviewed and confirmed by me. Those systems with pertinent positive or negative responses have been documented in the HPI. All other systems are other negative and/or noncontributory. PHYSICAL EXAM: General Impression: Alert and oriented x3, not in acute distress HEENT: Normocephalic atraumatic, extra-ocular movements intact, pupils equal and reactive to light bilaterally, mucous membranes moist. Cardiovascular: Heart regular rate and rhythm, S1&S2 audible, no murmurs, rubs or gallops Chest: Lungs clear to auscultation bilaterally, no rhonchi, no wheeze, no rales Abdomen: Bowel sounds present, abdomen soft, diffuse abdominal pain to palpation, non-distended, no organomegaly, 200 to percussion Musculoskeletal: Pulses present and equal in all extremities, no peripheral edema Motor: no focal deficits noted Neurological: CN II-XII grossly intact, no focal motor or sensory deficits noted Skin: Intact with no visualized rashes Psych: Normal affect and mood ED course: 79-year-old male multiple comorbidities disease presents with chest pain and abdominal pain. Chest pain is concerning for acute cardiac syndrome given its characteristics and improvement with nitroglycerin. Patient is high risk for multiple comorbidities and history of SC and CABG. Patient's abdominal symptoms appear to be with concerned that it is temporally related to amiodarone. Vital signs upon arrival are within acceptable limits.Laboratory evaluation tape. Patient has a leukocytosis of 29.9. He has a history of blood dyscrasia and sees hematology regarding this. Otherwise his leukocytosis is stable. Patient CBC is also nonacute compared to previous labs. Coag panel unremarkable. Metabolic panel shows sodium 131. Patient does have mild non-gap acidosis. Renal markers are within normal limits. Glucose is 73 patient given glucose. Cardiac enzymes negative. Chest x-ray shows findings to suggest mild pulmonary vascular congestion. Patient not complaining of any shortness of breath. Abdominal x-ray shows nonobstructive bowel gas pattern. Patient's c linical presentation concern for her acute coronary syndrome given patient's medical history. Patient be admitted to observation for serial troponins and cardiology consultation. Discussed patient case with Dr. Donato who is willing to accept admission. She reevaluated bedside and did [place] any recurrence of his chest pain. EKG interpretation: Ventricular rate a 84, A. fib, QRS 90, QTc 42. No RI prolongation, no QTC prolongation, no ST or T-wave changes noted. EKG compared to 05/23/2019 showing no changes. Overall, this EKG is unremarkable - Related Data Home Medications Medication Instructions Recorded Confirmed Atorvastatin [Lipitor] 40 mg PO DAILY 09/27/14 03/31/19 Spironolactone [Aldactone] 25 mg PO DAILY 11/12/17 03/31/19 Pantoprazole Sodium [Protonix] 40 mg PO DAILY 07/14/18 03/31/19 Isosorbide Mononitrate [Isosorbide 15 mg PO DAILY 01/29/19 03/31/19 Mononitrate ER] Metoprolol Tartrate [Lopressor] 50 mg PO AC-TID 02/12/19 03/31/19 rOPINIRole HCL [Requip] 1 mg PO HS 02/12/19 03/31/19 Terazosin [Hytrin] 5 mg PO HS 02/28/19 03/31/19 Allopurinol [Zyloprim] 100 mg PO DAILY 03/31/19 03/31/19 Previous Rx's Medication Instructions Recorded Aspirin 81 mg PO DAILY #30 chew 04/07/18 Clopidogrel [Plavix] 75 mg PO DAILY #30 tab 06/04/18 Furosemide [Lasix] 40 mg PO BID #60 tab 03/04/19 Allergies Allergy/AdvReac Type Severity Reaction Status Date / Time No Known Allergies Allergy Verified 02/28/19 19:56 Review of Systems ROS Statement: Those systems with pertinent positive or pertinent negative responses have been documented in the HPI. ROS Other: All systems not noted in ROS Statement are negative. Past Medical History Past Medical History: Atrial Flutter, Blood Disorder, Coronary Artery Disease (CAD), Heart Failure, GERD/Reflux, GI Bleed, Hyperlipidemia, Hypertension, Myocardial Infarction ([place]), Prostate Disorder, Vascular Disorder Additional Past Medical History / Comment(s): myeloproliferative disorder(leukocytosis and thrombocytosis), esophagitis, severe PAD, severe pulmonary hypertension , right-sided heart failure with severe pulmonary hypertension, BPH, Exercise intolerance Last Myocardial Infarction Date:: 2017 History of Any Multi-Drug Resistant Organisms: Acinetobacter (MDRO), MRSA Date of last positivie culture/infection: 05/12/18-MRSA MDRO Source:: Foot-MRSA Past Surgical History: Cholecystectomy, Coronary Bypass/CABG, Heart Catheterization, Hernia Repair Additional Past Surgical History / Comment(s): Cardiac catheterization on 10/04/2014, right femoral artery/common femoral artery endarterectomy. 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 tom inguinal hernia repair, coronary artery bypass surgery, EGD, colonoscopy. Cath with PCI to RCA 02/04/19 Past Anesthesia/Blood Transfusion Reactions: No Reported Reaction Past Psychological History: No Psychological Hx Reported Smoking Status: Former smoker Past Alcohol Use History: Rare Past Drug Use History: None Reported - Past Family History Brother(s) Family Medical History: Cancer Additional Family Medical History / Comment(s): 2 with lung and 1 with prostate Mother Family Medical History: Myocardial Infarction ([place]) Father History Unknown: Yes Additional Family Medical History / Comment(s): AT AGE 83 FROM "HARDENING OF THE ARTERIES" General Exam Limitations: no limitations Course Vital Signs 03/31/19 03/31/19 12:33 14:47 Temperature 97.6 F Pulse Rate 80 70 Respiratory 18 20 Rate Blood Pressure 106/67 118/64 O2 Sat by Pulse 93 L 99 Oximetry Medical Decision Making - Lab Data Result diagrams: 03/31/19 12:45 03/31/19 12:45 Lab Results 03/31/19 03/31/19 03/31/19 Range/Units 12:45 12:45 12:45 WBC 29.9 H (3.8-10.6) k/uL RBC 3.21 L (4.30-5.90) m/uL Hgb 9.3 L (13.0-17.5) gm/dL Hct 30.5 L (39.0-53.0) % MCV 95.0 (80.0-100.0) fL MCH 29.1 (25.0-35.0) pg MCHC 30.6 L (31.0-37.0) g/dL RDW 27.2 H (11.5-15.5) % Plt Count 755 H (150-450) k/uL Neutrophils % (Manual) 60 % Band Neutrophils % 14 % Lymphocytes % (Manual) 10 % Monocytes % (Manual) 4 % Eosinophils % (Manual) 3 % Metamyelocytes % 4 % Myelocytes % 8 % Neutrophils # (Manual) 22.10 H (1.3-7.7) k/uL Lymphocytes # (Manual) 2.99 (1.0-4.8) k/uL Monocytes # (Manual) 1.20 H (0-1.0) k/uL Eosinophils # (Manual) 0.90 H (0-0.7) k/uL Metamyelocytes # (Man) 1.20 H (0) k/uL Myelocytes # (Manual) 2.39 H (0) k/uL Nucleated RBCs 5 H (0-0) /100 WBC Dimorphic RBCs Present Polychromasia Present Hypochromasia Marked Hypochromasia (manual) Present Poikilocytosis Marked Poikilocytosis (manual Present Anisocytosis Marked Anisocytosis (manual) Present Macrocytosis Moderate Ovalocytes Present Stomatocytes Present PT 14.6 H (9.0-12.0) sec INR 1.4 H (<1.2) APTT 26.6 (22.0-30.0) sec Sodium 131 L (137-145) mmol/L Potassium 4.3 (3.5-5.1) mmol/L Chloride 100 (98-107) mmol/L Carbon Dioxide 21 L (22-30) mmol/L Anion Gap 10 mmol/L BUN 13 (9-20) mg/dL Creatinine 0.90 (0.66-1.25) mg/dL Est GFR (CKD-EPI)AfAm >90 (>60 ml/min/1.73 sqM) Est GFR (CKD-EPI)NonAf 81 (>60 ml/min/1.73 sqM) Glucose 73 L (74-99) mg/dL Plasma Lactic Acid Moe (0.7-2.0) mmol/L Calcium 8.5 (8.4-10.2) mg/dL Magnesium 1.6 (1.6-2.3) mg/dL Total Bilirubin 1.6 H (0.2-1.3) mg/dL AST 31 (17-59) U/L ALT 21 (21-72) U/L Alkaline Phosphatase 111 (38-126) U/L Troponin I (0.000-0.034) ng/mL Total Protein 5.4 L (6.3-8.2) g/dL Albumin 3.2 L (3.5-5.0) g/dL Lipase 42 (23-300) U/L 03/31/19 03/31/19 Range/Units 12:45 12:45 WBC (3.8-10.6) k/uL RBC (4.30-5.90) m/uL Hgb (13.0-17.5) gm/dL Hct (39.0-53.0) % MCV (80.0-100.0) fL MCH (25.0-35.0) pg MCHC (31.0-37.0) g/dL RDW (11.5-15.5) % Plt Count (150-450) k/uL Neutrophils % (Manual) % Band Neutrophils % % Lymphocytes % (Manual) % Monocytes % (Manual) % Eosinophils % (Manual) % Metamyelocytes % % Myelocytes % % Neutrophils # (Manual) (1.3-7.7) k/uL Lymphocytes # (Manual) (1.0-4.8) k/uL Monocytes # (Manual) (0-1.0) k/uL Eosinophils # (Manual) (0-0.7) k/uL Metamyelocytes # (Man) (0) k/uL Myelocytes # (Manual) (0) k/uL Nucleated RBCs (0-0) /100 WBC Dimorphic RBCs Polychromasia Hypochromasia Hypochromasia (manual) Poikilocytosis Poikilocytosis (manual Anisocytosis Anisocytosis (manual) Macrocytosis Ovalocytes Stomatocytes PT (9.0-12.0) sec INR (<1.2) APTT (22.0-30.0) sec Sodium (137-145) mmol/L Potassium (3.5-5.1) mmol/L Chloride (98-107) mmol/L Carbon Dioxide (22-30) mmol/L Anion Gap mmol/L BUN (9-20) mg/dL Creatinine (0.66-1.25) mg/dL Est GFR (CKD-EPI)AfAm (>60 ml/min/1.73 sqM) Est GFR (CKD-EPI)NonAf (>60 ml/min/1.73 sqM) Glucose (74-99) mg/dL Plasma Lactic Acid Moe 1.2 (0.7-2.0) mmol/L Calcium (8.4-10.2) mg/dL Magnesium (1.6-2.3) mg/dL Total Bilirubin (0.2-1.3) mg/dL AST (17-59) U/L ALT (21-72) U/L Alkaline Phosphatase (38-126) U/L Troponin I <0.012 (0.000-0.034) ng/mL Total Protein (6.3-8.2) g/dL Albumin (3.5-5.0) g/dL Lipase (23-300) U/L Disposition Clinical Impression: Chest pain Disposition: ADMITTED IP TO THIS [facility] Condition: Fair Referrals: Leon Franklin MD [Primary Care Provider] - 1-2 days Decision Time: 15:31
[2019-03-31 14:05] LABS: Anisocytosis Marked; HCT 30.5 % (39.0-53.0); HGB 9.3 gm/dL (13.0-17.5); Hypochromasia Marked; INR 1.4 (<1.2); MCH 29.1 pg (25.0-35.0); MCHC 30.6 g/dL (31.0-37.0); Macrocytosis Moderate; Mean Platelet Volume 9.5; Partial Thromboplastin Time 26.6 sec (22.0-30.0); Platelet Count 755 k/uL (150-450); Poikilocytosis Marked; Prothrombin Time 14.6 sec (9.0-12.0); RBC 3.21 m/uL (4.30-5.90)
[2019-03-31 14:07] LABS: ALT 21 U/L (21-72); AST 31 U/L (17-59); Albumin 3.2 g/dL (3.5-5.0); Alkaline Phosphatase 111 U/L (38-126); Anion Gap 10 mmol/L; Blood Urea Nitrogen 13 mg/dL (9-20); Calcium 8.5 mg/dL (8.4-10.2); Carbon Dioxide 21 mmol/L (22-30); Chloride 100 mmol/L (98-107); Glucose 73 mg/dL (74-99); Lipase 42 U/L (23-300); Magnesium 1.6 mg/dL (1.6-2.3); Potassium 4.3 mmol/L (3.5-5.1); Sodium 131 mmol/L (137-145); Total Bilirubin 1.6 mg/dL (0.2-1.3); Total Protein 5.4 g/dL (6.3-8.2)
[2019-03-31 14:14] LABS: RDW 27.2 % (11.5-15.5)
--- NOTE | 2019-03-31 14:41 | XR ---
EXAMINATION TYPE: XR chest 2V DATE OF EXAM: 03/31/2019 COMPARISON: 03/03/2019 HISTORY: Chest pain TECHNIQUE: Frontal and lateral views of the chest are obtained. FINDINGS: There remains a very trace right pleural effusion and right hemidiaphragm elevation as see n on the prior. Left costophrenic angle is well demarcated. Minimal pulmonary vascular congestion is seen in combination with post CABG changes the chest and enlarged cardiac mediastinal silhouette. Hil ar prominence may represent confluent pulmonary edema. Mild multilevel degenerative changes of the sp ine are seen. IMPRESSION: Mild pulmonary vascular congestion and trace right pleural effusion likely on the basis of decompensated congestive heart failure. Right hilar prominence could relate to pulmonary edema or developing pneumonia.
--- NOTE | 2019-03-31 14:46 | XR ---
EXAMINATION TYPE: XR abdomen 1V DATE OF EXAM: 03/31/2019 2:36 PM CLINICAL HISTORY: Abdominal pain TECHNIQUE: Single upright image of the abdomen is obtained. COMPARISON: None. FINDINGS: Scattered gas is seen in nondilated small bowel loops. Gas and fecal material is seen in no ndilated colon. There is a paucity of bowel gas in the upper abdomen possibly due to hepatosplenomega ly as the spleen and liver appear prominent in size radiographically. The lung bases are clear and th e osseous structures are intact. There is a very mild levoscoliosis of the lumbar spine and moderate degenerative changes. Moderate atherosclerosis of the abdominal aorta and its branches are seen. Mild femoral acetabular arthropathy. Pleural-based calcifications are seen of the lower lungs. IMPRESSION: Nonobstructive bowel gas pattern. Low-lying nondilated bowel be on the basis of hepatospl enomegaly.
[2019-03-31 14:52] LABS: Band Neutrophils % 14 %; Metamyelocytes % 4 %; Myelocytes % 8 %; Neutrophils % (M) 60 %; Nucleated Red Blood Cells 5 /100 WBC (0-0); Total Cells Counted 200
[2019-03-31 14:53] LABS: Anisocytosis (M) Present; Hypochromasia (M) Present; Lymphocytes # (M) 2.99 k/uL (1.0-4.8); Myelocytes # (M) 2.39 k/uL (0); WBC 29.9 k/uL (3.8-10.6)
[2019-03-31 14:54] LABS: Mixed Population RBC Present; Ovalocytes Present; Poikilocytosis (M) Present; Polychromasia Present; Stomatocytes Present
[2019-03-31] MEDS ORDERED: SODIUM CHLORIDE 0.9% 1,000 ML IV STA (14:57)
[2019-03-31] MEDS ORDERED: NITROGLYCERIN SL TABS 0.4 MG TAB SUBLINGUAL PRN (15:27)
[2019-03-31] MEDS ORDERED: ASPIRIN 81 MG PO STA (15:27)
[2019-03-31] MEDS ORDERED: FUROSEMIDE 40 MG TAB PO SCH (16:00)
--- NOTE | 2019-03-31 16:57 | P.HPIM ---
History of Present Illness Patient is a 79-year-old male with a past medical history of multiple GI bleeds, myeloproliferative disorder requiring frequent transfusions and weekly Procrit, A. fib, CHF, coronary artery disease with recent stent placement on 02/04/19 to the RCA, hypertension, and dyslipidemia who presented to the emergency department with complaints of shortness of breath. Today the patient presents with generalized abdominal pain worse in the lower abdomen that has been constant dull ache 6 out of 10 without radiation since 03/16/19. The patient himself attributes the abdominal pain to taking amiodarone for paroxysmal A. fib flutter which was prescribed by his railroad dining car stewardess Dr. Pelayo, apparently the patient began taking the medication on03/16/19 and subsequently discontinued it 5 days later after complaining of abdominal pain to his railroad dining car stewardess, the patient denies any bright red blood per rectum or dark melanotic stools and has been watching for these given his history of GI bleed. The patient reports increasing weakness fatigue and dyspnea and exertion, reports his lower extremities are swollen. The patient denies any cough, he denies any subjective fevers chills or night sweats. The patient did report some left-sided chest pain lasting approximately 30 seconds earlier today that was associated with movement and that resolved prior to receiving nitroglycerin, he denied any associated nausea vomiting or diaphoresis, the patient was given nitroglycerin by his . In the ER the patient had a comprehensive workup diabetes, was 30, hemoglobin 9.3, platelets 755. Abdominal films showed nonobstructive bowel gas pattern with low-lying nondilated bowel on the basis of hepatosplenomegaly. Chest x-ray was consistent with mild pulmonary valve her congestion and trace right pleural effusion suggestive of decompensated CHF the right hilar prominence that could relate to the pulmonary edema or developing pneumonia. Patient is recommended for admission to rule out ACS Review of Systems Pertinent positives per HPI all other review of systems otherwise negative Past Medical History Past Medical History: Atrial Flutter, Blood Disorder, Coronary Artery Disease (CAD), Heart Failure, GERD/Reflux, GI Bleed, Hyperlipidemia, Hypertension, Thomas cardial Infarction ([place]), Prostate Disorder, Vascular Disorder Additional Past Medical History / Comment(s): myeloproliferative disorder(leukocytosis and thrombocytosis), esophagitis, severe PAD, severe pulmonary hypertension , right-sided heart failure with severe pulmonary hypertension, BPH, Exercise intolerance Last Myocardial Infarction Date:: 2017 History of Any Multi-Drug Resistant Organisms: Acinetobacter (MDRO), MRSA Date of last positivie culture/infection: 05/12/18-MRSA MDRO Source:: Foot-MRSA Past Surgical History: Cholecystectomy, Coronary Bypass/CABG, Heart Catheterization, Hernia Repair Additional Past Surgical History / Comment(s): Cardiac catheterization on 10/04/2014, right femoral artery/common femoral artery endarterectomy. 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 tom inguinal hernia repair, coronary artery bypass surgery, EGD, colonoscopy. Cath with PCI to RCA 02/04/19 Past Anesthesia/Blood Transfusion Reactions: No Reported Reaction Past Psychological History: No Psychological Hx Reported Smoking Status: Former smoker Past Alcohol Use History: Rare Past Drug Use History: None Reported - Past Family History Brother(s) Family Medical History: Cancer Additional Family Medical History / Comment(s): 2 with lung and 1 with prostate Mother Family Medical History: Myocardial Infarction ([place]) Father History Unknown: Yes Additional Family Medical History / Comment(s): AT AGE 83 FROM "HARDENING OF THE ARTERIES" Medications and Allergies Home Medications Medication Instructions Recorded Confirmed Type Atorvastatin [Lipitor] 40 mg PO DAILY 09/27/14 03/31/19 History Spironolactone [Aldactone] 25 mg PO DAILY 11/12/17 03/31/19 History Aspirin 81 mg PO DAILY #30 chew 04/07/18 03/31/19 Rx Clopidogrel [Plavix] 75 mg PO DAILY #30 tab 04/07/18 03/31/19 Rx Pantoprazole Sodium [Protonix] 40 mg PO DAILY 07/14/18 03/31/19 History Isosorbide Mononitrate [Isosorbide 15 mg PO DAILY 01/29/19 03/31/19 History Mononitrate ER] Metoprolol Tartrate [Lopressor] 50 mg PO AC-TID 02/12/19 03/31/19 History rOPINIRole HCL [Requip] 1 mg PO HS 02/12/19 03/31/19 History Terazosin [Hytrin] 5 mg PO HS 02/28/19 03/31/19 History Furosemide [Lasix] 40 mg PO BID #60 tab 03/04/19 03/31/19 Rx Allopurinol [Zyloprim] 100 mg PO DAILY 03/31/19 03/31/19 History Allergies Allergy/AdvReac Type Severity Reaction Status Date / Time No Known Allergies Allergy Verified 02/28/19 19:56 Physical Exam Vitals: Vital Signs Temp Pulse Resp BP Pulse Ox 03/31/19 14:47 70 20 118/64 99 03/31/19 12:33 97.6 F 80 18 106/67 93 L Intake and Output 03/31/19 03/31/19 03/31/19 06:59 14:59 22:59 Other: Weight 77.564 kg Constitutional: No acute distress, conversant, pleasant Eyes: Anicteric sclerae, moist conjunctiva, no lid-lag, PERRLA ENMT: NC/AT,Oropharynx clear, no erythema, exudates Neck:Supple, FROM, no masses, or JVD, No carotid bruits; No thyromegaly Lungs: Clear to auscultation, Clear to percussion, Normal respiratory effort, no accessory muscle use Cardiovascular: Heart regular in rate and rhythm, No murmurs, gallops, or rubs no peripheral edema Abdominal: Soft ttp diffusely, nom distended, no guarding, no rebound or rigidity, Normoactive bowel sounds No hepatomegaly, No splenomegaly, No palpable mass No abdominal wall hernia noted Skin: Normal temperature, tone, texture, turgor, No induration No subcutaneous nodules, No rash, lesions, No ulcers Extremities:No digital cyanosis No clubbing, Pedal pulses intact and symmetrical Radial pulses intact and symmetrical Normal gait and station, No calf tenderness Psychiatric: Alert and oriented to person, place and time, Appropriate affect Intact judgement Neuro: Muscles Strength 5/5 in all 4 extremities, Sensation to light touch grossly present throughout, Cranial nerves II-XII grossly intact. No focal sensory deficits Results CBC & Chem 7: 03/31/19 12:45 03/31/19 12:45 Labs: Abnormal Lab Results - Last 24 Hours (Table) 03/31/19 03/31/19 03/31/19 Range/Units 12:45 12:45 12:45 WBC 29.9 H (3.8-10.6) k/uL RBC 3.21 L (4.30-5.90) m/uL Hgb 9.3 L (13.0-17.5) gm/dL Hct 30.5 L (39.0-53.0) % MCHC 30.6 L (31.0-37.0) g/dL RDW 27.2 H (11.5-15.5) % Plt Count 755 H (150-450) k/uL Neutrophils # (Manual) 22.10 H (1.3-7.7) k/uL Monocytes # (Manual) 1.20 H (0-1.0) k/uL Eosinophils # (Manual) 0.90 H (0-0.7) k/uL Metamyelocytes # (Man) 1.20 H (0) k/uL Myelocytes # (Manual) 2.39 H (0) k/uL Nucleated RBCs 5 H (0-0) /100 WBC PT 14.6 H (9.0-12.0) sec INR 1.4 H (<1.2) Sodium 131 L (137-145) mmol/L Carbon Dioxide 21 L (22-30) mmol/L Glucose 73 L (74-99) mg/dL Total Bilirubin 1.6 H (0.2-1.3) mg/dL Total Protein 5.4 L (6.3-8.2) g/dL Albumin 3.2 L (3.5-5.0) g/dL Assessment and Plan (1) Atypical chest pain Current Visit: Yes Status: Acute Code(s): R07.89 - OTHER CHEST PAIN SNOMED Code(s): 343822357 (2) Abdominal pain Current Visit: No Status: Acute Code(s): R10.9 - UNSPECIFIED ABDOMINAL PAIN SNOMED Code(s): 57757285 (3) Atrial fibrillation Current Visit: Yes Status: Acute Code(s): I48.91 - UNSPECIFIED ATRIAL FIBRILLATION SNOMED Code(s): 43975014 (4) CAD (coronary artery disease) Current Visit: No Status: Acute Code(s): I25.10 - ATHSCL HEART DISEASE OF [place] CORONARY ARTERY W/O ANG PCTRS SNOMED Code(s): 12451286 (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 Current Visit: Yes Status: Acute Code(s): K22.711 - WILSON'S ESOPHAGUS WITH HIGH GRADE DYSPLASIA SNOMED Code(s): 8803366571188596 (6) Myeloproliferative disorder Current Visit: Yes Status: Acute Code(s): D47.1 - CHRONIC MYELOPROLIFERATIVE DISEASE SNOMED Code(s): 935301840 (7) Acute on chronic systolic CHF (congestive heart failure) Current Visit: Yes Status: Acute Code(s): I50.23 - ACUTE ON CHRONIC SYSTOLIC (CONGESTIVE) HEART FAILURE SNOMED Code(s): 418181978 Plan: The patient is placed in observation anticipate a less than 2 midnight stay with atypical chest pain with need to rule out ACS, initial troponins have been negative with EKG showing atrial fibrillation with preserved ventricular rate will continue to trend we'll plan cardiology consult for further recommendations. For his abdominal pain this may be attributed to worsening myeloproliferative disorder as a patient does have documented splenomegaly previously, will repeat CT abdomen and pelvis. The patient does have increasing dyspnea on exertion but slightly fluid overloaded on his peripheral exam lungs sound good, we'll continue his home Lasix regimen. A chest x-ray did show some vascular congestion, we'll check a pro BNP. The patient is placed in observation with an anticipated less than 2 per night stay for atypical chest pain to rule out ACS Surrogate decision-maker: Stormy CODE STATUS:Full DVT prophylaxis: SCDs Discussed with: Patient, nursing Anticipated discharge date: 1-[address]: home with home health A total of 65 minutes was spent on the care of this complex patient more than 50% of the time was spent in counseling and care coordination.
[2019-03-31] MEDS: METOPROLOL TARTRATE 50 MG TAB PO SCH (17:29)
--- NOTE | 2019-03-31 19:22 | CT ---
EXAMINATION TYPE: CT abdomen pelvis wo con DATE OF EXAM: 03/31/2019 COMPARISON: 04/13/2018 HISTORY: generalized pain with nausea CT DLP: 547.4 mGycm Automated exposure control for dose reduction was used. TECHNIQUE: Helical acquisition of images was performed from the lung bases through the pelvis. FINDINGS: LUNG BASES: Large right pleural effusion is present, occupying approximately 40% of the right hemitho rax. Associated passive atelectasis of the right lower lobe. Scant left pleural effusion noted. Small bilateral pleural calcifications are noted, consistent with asbestos related change. There is mild c ardiomegaly. LIVER/GB: There is hepatomegaly, with longitudinal dimension 20 cm. No significant abnormality is ivon reciated. PANCREAS: No significant abnormality is seen. SPLEEN: Moderate-marked splenomegaly, measuring 17 x 17 x 7 cm. No focal lesions. ADRENALS: No significant abnormality is seen. KIDNEYS: No significant abnormality is seen. FREE AIR: No free air is visualized. A scant volume of peritoneal fluid is seen dependently within t he pelvis, and in the paracolic gutters. RETROPERITONEAL ADENOPATHY: None visualized REPRODUCTIVE ORGANS: No significant abnormality is seen URINARY BLADDER: No significant abnormality is seen. PELVIC ADENOPATHY: None visualized. OSSEOUS STRUCTURES: No significant abnormality is seen. BOWEL: No significant abnormality is seen. IMPRESSION: 1. NEGATIVE FOR BOWEL OBSTRUCTION. 2. HEPATOSPLENOMEGALY. 3. LARGE RIGHT PLEURAL EFFUSION.
[2019-03-31] MEDS: DOXAZOSIN 4 MG TAB PO SCH (20:19)
[2019-03-31] MEDS: HYDROcodone/APAP 5-325MG 1 EACH TAB PO PRN (23:19)
[2019-04-01] MEDS: HYDROcodone/APAP 5-325MG 1 EACH TAB PO PRN ×3 (05:49→21:47)
--- NOTE | 2019-04-01 07:15 | P.CRDCN ---
History of Present Illness Consult date: 04/01/19 Chief complaint: Shortness of breath/lower extremities edema History of present illness: This is a pleasant 79-year-old gentleman who follows Dr. GERI Pelayo in the office on regular basis with a past medical history significant for coronary artery disease and prior coronary revascularization, chronic atrial fibrillation currently not on oral anticoagulation in view of history of GI bleeding, chronic anemia secondary to myeloproliferative disease, peripheral arterial disease, as well as multiple comorbid conditions, presented to the hospital complaining of feeling weak and tired. The patient stated that he has been not feeling well for the last week. He was discharged from the hospital in March 2018 after he was admitted was congestive heart failure. The echocardiogram at that point revealed normal LV function. He was discharged on oral diuretics with Lasix 40 mg twice a day. He stated that he was taking his diuretics at home. He describes progressive exertional dyspnea and also bilateral lower extremities edema. Yesterday he did have a brief episode of atypical chest discomfort. Beside that he has been experiencing abdominal discomfort. He underwent a computed tomography scan of the abdomen which showed no acute intra-abdominal process. The chest x-ray showed findings consistent with CHF and pleural effusion. The BMP was checked and came in to be around 7000. The troponin is within normal limits. The EKG showed atrial fibrillation with diffuse nonspecific ST and T wave abnormalities. The hemoglobin was 9.3. He does have chronic anemia. The computed tomography scan also revealed large right pleural effusion and as a matter of fact the patient does have diminished breathing sounds over the right lung. I would recommend obtaining an ultrasound to assess the amount of pleural effusion. Past Medical History Past Medical History: Atrial Flutter, Blood Disorder, Coronary Artery Disease (CAD), Heart Failure, GERD/Reflux, GI Bleed, Hyperlipidemia, Hypertension, Myoca rdial Infarction ([place]), Prostate Disorder, Vascular Disorder Additional Past Medical History / Comment(s): myeloproliferative disorder(leukocytosis and thrombocytosis), esophagitis, severe PAD, severe pulmonary hypertension , right-sided heart failure with severe pulmonary hy pertension, BPH, Exercise intolerance Last Myocardial Infarction Date:: 2017 History of Any Multi-Drug Resistant Organisms: Acinetobacter (MDRO), MRSA Date of last positivie culture/infection: 05/12/18-MRSA MDRO Source:: Foot-MRSA Past Surgical History: Cholecystectomy, Coronary Bypass/CABG, Heart Catheterization, Hernia Repair Additional Past Surgical History / Comment(s): Cardiac catheterization on 10/04/2014, right femoral artery/common femoral artery endarterectomy. 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 tom inguinal hernia repair, coronary artery bypass surgery, EGD, colonoscopy. Cath with PCI to RCA 02/04/19 Past Anesthesia/Blood Transfusion Reactions: No Reported Reaction Past Psychological History: No Psychological Hx Reported Smoking Status: Former smoker Past Alcohol Use History: Rare Past Drug Use History: None Reported - Past Family History Brother(s) Family Medical History: Cancer Additional Family Medical History / Comment(s): 2 with lung and 1 with prostate Mother Family Medical History: Myocardial Infarction ([place]) Father History Unknown: Yes Additional Family Medical History / Comment(s): AT AGE 83 FROM "HARDENING OF THE ARTERIES" Medications and Allergies Home Medications Medication Instructions Recorded Confirmed Type Atorvastatin [Lipitor] 40 mg PO DAILY 09/27/14 03/31/19 History Spironolactone [Aldactone] 25 mg PO DAILY 11/12/17 03/31/19 History Aspirin 81 mg PO DAILY #30 chew 04/07/18 03/31/19 Rx Clopidogrel [Plavix] 75 mg PO DAILY #30 tab 04/07/18 03/31/19 Rx Pantoprazole Sodium [Protonix] 40 mg PO DAILY 07/14/18 03/31/19 History Isosorbide Mononitrate [Isosorbide 15 mg PO DAILY 01/29/19 03/31/19 History Mononitrate ER] Metoprolol Tartrate [Lopressor] 50 mg PO AC-TID 02/12/19 03/31/19 History rOPINIRole HCL [Requip] 1 mg PO HS 02/12/19 03/31/19 History Terazosin [Hytrin] 5 mg PO HS 02/28/19 03/31/19 History Furosemide [Lasix] 40 mg PO BID #60 tab 03/04/19 03/31/19 Rx Allopurinol [Zyloprim] 100 mg PO DAILY 03/31/19 03/31/19 History Allergies Allergy/AdvReac Type Severity Reaction Status Date / Time No Known Allergies Allergy Verified 02/28/19 19:56 Physical Exam Vitals: Vital Signs Temp Pulse Pulse Pulse Resp BP BP 04/01/19 04:00 97.9 F 80 15 98/56 04/01/19 00:00 98.0 F 56 L 15 91/54 03/31/19 20:00 15 03/31/19 19:05 97.9 F 59 L 15 97/56 03/31/19 16:40 97.6 F 78 18 126/76 03/31/19 16:00 78 18 03/31/19 14:47 70 20 118/64 03/31/19 12:33 97.6 F 80 18 106/67 Pulse Ox 04/01/19 04:00 96 04/01/19 00:00 97 03/31/19 20:00 03/31/19 19:05 96 03/31/19 16:40 99 03/31/19 16:00 03/31/19 14:47 99 03/31/19 12:33 93 L Intake and Output 03/31/19 04/01/19 04/01/19 22:59 06:59 14:59 Intake Total 240 Output Total 125 Balance 115 Intake: Oral 240 Output: Urine 125 Other: Voiding Method Urinal Urinal # Voids 2 - Respiratory Respiratory: right: diminished, left: CTA - Cardiovascular Rhythm: irregularly irregular Heart sounds: normal: S1, S2 Results 03/31/19 12:45 03/31/19 12:45 Cardiac Enzymes 03/31/19 03/31/19 03/31/19 Range/Units 12:45 12:45 18:31 AST 31 (17-59) U/L Troponin I <0.012 <0.012 (0.000-0.034) ng/mL 04/01/19 Range/Units 02:01 AST (17-59) U/L Troponin I <0.012 (0.000-0.034) ng/mL Coagulation 03/31/19 Range/Units 12:45 PT 14.6 H (9.0-12.0) sec APTT 26.6 (22.0-30.0) sec CBC 03/31/19 Range/Units 12:45 WBC 29.9 H (3.8-10.6) k/uL RBC 3.21 L (4.30-5.90) m/uL Hgb 9.3 L (13.0-17.5) gm/dL Hct 30.5 L (39.0-53.0) % Plt Count 755 H (150-450) k/uL Comprehensive Metabolic Panel 03/31/19 Range/Units 12:45 Sodium 131 L (137-145) mmol/L Potassium 4.3 (3.5-5.1) mmol/L Chloride 100 (98-107) mmol/L Carbon Dioxide 21 L (22-30) mmol/L BUN 13 (9-20) mg/dL Creatinine 0.90 (0.66-1.25) mg/dL Glucose 73 L (74-99) mg/dL Calcium 8.5 (8.4-10.2) mg/dL AST 31 (17-59) U/L ALT 21 (21-72) U/L Alkaline Phosphatase 111 (38-126) U/L Total Protein 5.4 L (6.3-8.2) g/dL Albumin 3.2 L (3.5-5.0) g/dL Current Medications Generic Name Dose Route Start Last Admin Trade Name Freq PRN Reason Stop Dose Admin Hydrocodone Bitart/Acetaminophen 1 each 03/31/19 23:04 04/01/19 05:49 [place] 5-325 PO 1 each Q6HR PRN Administration Pain Allopurinol 100 mg 04/01/19 09:00 Zyloprim PO DAILY [facility] Aspirin 81 mg 04/01/19 09:00 Aspirin PO DAILY [facility] Atorvastatin Calcium 40 mg 04/01/19 09:00 Lipitor PO DAILY [facility] Clopidogrel Bisulfate 75 mg 04/01/19 09:00 Plavix PO DAILY [facility] Doxazosin Mesylate 4 mg 03/31/19 21:00 03/31/19 20:19 Cardura PO 4 mg HS JOSE Administration Furosemide 40 mg 03/31/19 16:00 03/31/19 17:29 Lasix PO 40 mg BID@0900,1600 JOSE Administration Metoprolol Tartrate 50 mg 03/31/19 17:30 03/31/19 17:29 Lopressor PO 50 mg AC-TID JOSE Administration Nitroglycerin 0.4 mg 03/31/19 15:27 Nitrostat SUBLINGUAL Q5M PRN Chest Pain Pantoprazole Sodium 40 mg 04/01/19 07:30 Protonix PO AC-BRKFST [facility] Ropinirole HCl 1 mg 03/31/19 21:00 03/31/19 20:19 Requip PO 1 mg HS JOSE Administration Spironolactone 25 mg 04/01/19 09:00 Aldactone PO DAILY JOSE Intake and Output 03/31/19 04/01/19 04/01/19 22:59 06:59 14:59 Intake Total 240 Output Total 125 Balance 115 Intake: Oral 240 Output: Urine 125 Other: Voiding Method Urinal Urinal # Voids 2 03/31/19 12:45 03/31/19 12:45 Assessment and Plan Assessment: Assessment #1 progressive exertional dyspnea and bilateral lower extremities edema #2 mild congestive heart failure exacerbation secondary to diastolic dysfunction. #3 known chronic diastolic CHF. The patient underwent an echo recently showed normal LV function #4 marginate low blood pressure. #5 chronic atrial fibrillation was controlled heart rate #6 abdominal discomfort of unknown etiology #7 coronary artery disease and prior revascularization #8 multiple comorbid conditions including mild proliferative disease as well as chronic anemia Plan #1 DC the oral nitrates in view of the marginally low blood pressure #2 DC oral Lasix and start the patient on IV Lasix #3 continue monitor the kidney function and electrolytes #4 no need to repeat the echocardiogram in view of recent echo showing normal LV function #5 workup regarding the abdominal discomfort #6 obtain an ultrasound of the chest to assess the amount of right pleural effusion Thank you for allowing us participate in his care
[2019-04-01] MEDS: FUROSEMIDE 10 MG/ML 4 ML VIAL IV SCH ×2 (08:19→21:48)
[2019-04-01] MEDS: METOPROLOL TARTRATE 50 MG TAB PO SCH ×3 (08:19→16:48)
[2019-04-01] MEDS: CLOPIDOGREL 75 MG TAB PO SCH (08:19)
[2019-04-01] MEDS: SPIRONOLACTONE 25 MG TAB PO SCH (08:20)
[2019-04-01] MEDS: ALLOPURINOL 100 MG TAB PO SCH (08:20)
[2019-04-01] MEDS: ASPIRIN 81 MG PO SCH (08:20)
[2019-04-01] MEDS: PANTOPRAZOLE 40 MG TABLET PO SCH (08:20)
[2019-04-01] MEDS: ATORVASTATIN 40 MG TAB PO SCH (08:20)
[2019-04-01 08:26] LABS: Cholesterol 56 mg/dL (<200); HDL Cholesterol 14 mg/dL (40-60); LDL Cholesterol,Calculated 25 mg/dL (0-99); Triglycerides 84 mg/dL (<150)
[2019-04-01] MEDS ORDERED: ASPIRIN 325 MG TAB PO SCH (09:00)
[2019-04-01] MEDS ORDERED: ISOSORBIDE MONONITRATE ER 15 MG TAB PO SCH (09:00)
--- NOTE | 2019-04-01 09:32 | US ---
EXAMINATION TYPE: US chest DATE OF EXAM: 04/01/2019 COMPARISON: CT 03/31/19 CLINICAL HISTORY: right pleural effusion. TECHNIQUE: Targeted ultrasound of the posterior lower right hemithorax EXAM MEASUREMENTS: Right Pleural Effusion pocket size: 12.2 x 6.5 x 7.3 cm Right skin surface to fluid distance: 1.6 cm Right side marked for possible thoracentesis outside the dept. Ultrasound performed of the posterior right chest. IMPRESSIONS: Right pleural effusion.
--- NOTE | 2019-04-01 17:06 | P.PN ---
Subjective Progress Note Date: 04/01/19 Patient is seen and examined follow-up, still complain of abdominal pain increasing abdominal distention and decreased appetite and fatigue over the last 2 weeks. Reports increasing intolerance to exertion, also mentions left great toe swelling has a history of gout has not been taking his Medications for quite some time. CT abdomen and pelvis ordered yesterday that was negative for bowel obstruction but indicating hepatosplenomegaly with a large right pleural effusion, NT proBNP was elevated 7170. Blood pressures continue to be marginal, chest ultrasound indicates a right pleural effusion Objective - Vital Signs Vital signs: Vital Signs Temp 97.6 F 04/01/19 15:45 Pulse 73 04/01/19 16:00 Resp 16 04/01/19 16:00 BP 96/52 04/01/19 15:45 Pulse Ox 93 L 04/01/19 15:45 Intake & Output 03/31/19 04/01/19 04/01/19 18:59 06:59 18:59 Intake Total 240 380 Output Total 125 Balance 240 -125 380 Weight 77.564 kg Intake: Oral 240 180 Other 200 Output: Urine 125 Other: Voiding Method Urinal Urinal Urinal # Voids 2 - Exam Constitutional: No acute distress, conversant, pleasant Eyes: Anicteric sclerae, moist conjunctiva, no lid-lag, PERRLA ENMT: NC/AT,Oropharynx clear, no erythema, exudates Neck:Supple, FROM, no masses, or JVD, No carotid bruits; No thyromegaly Lungs: Clear to auscultation, Clear to percussion, Normal respiratory effort, no accessory muscle use Cardiovascular: Heart regular in rate and rhythm, No murmurs, gallops, or rubs no peripheral edema Abdominal: Soft Nontender, nom distended, no guarding, no rebound or rigidity, Normoactive bowel sounds No hepatomegaly, No splenomegaly, No palpable mass No abdominal wall hernia noted Skin: Normal temperature, tone, texture, turgor, No induration No subcutaneous nodules, No rash, lesions, left great toe podagra with slight erythema Extremities:No digital cyanosis No clubbing, Pedal pulses intact and symmetrical Radial pulses intact and symmetrical Normal gait and station, No calf tenderness Psychiatric: Alert and oriented to person, place and time, Appropriate affect Intact judgement Neuro: Muscles Strength 5/5 in all 4 extremities, Sensation to light touch grossly present throughout, Cranial nerves II-XII grossly intact. No focal sensory deficits - Labs CBC & Chem 7: 03/31/19 12:45 03/31/19 12:45 Labs: Abnormal Lab Results - Last 24 Hours (Table) 04/01/19 Range/Units 07:36 HDL Cholesterol 14 L (40-60) mg/dL Assessment and Plan (1) Atypical chest pain Narrative/Plan: * Unlikely to be cardiac. EKG showing no acute ischemic changes Only diffuse nonspecific ST-T wave abnormalities * Troponins are negative * Cardiology following possibly related to right pleural effusion Current Visit: Yes Status: Acute Code(s): R07.89 - OTHER CHEST PAIN SNOMED Code(s): 745858538 (2) Abdominal pain Narrative/Plan: * Hepatosplenomegaly on CT possibly causing his pain * or may be related to his Petty's esophagus with high-grade dysplasia * We'll consult GI for further recommendations Current Visit: No Status: Acute Code(s): R10.9 - UNSPECIFIED ABDOMINAL PAIN SNOMED Code(s): 34856082 (3) Atrial fibrillation Narrative/Plan: * Chronic and is rate controlled * Continue beta quan regimen with metoprolol Current Visit: Yes Status: Chronic Code(s): I48.91 - UNSPECIFIED ATRIAL FIBRILLATION SNOMED Code(s): 62761391 (4) Acute on chronic systolic CHF (congestive heart failure) Narrative/Plan: * Elevated NT proBNP in the 7000 range * continue with diuresis with IV Lasix with monitoring electrolytes and creatinine and urine output and daily weights * Previously systolic CHF last echocardiogram showing preserved LVEF of 55-60% * appreciate cardiology recommendations * Current Visit: Yes Status: Acute Code(s): I50.23 - ACUTE ON CHRONIC SYSTOLIC (CONGESTIVE) HEART FAILURE SNOMED Code(s): 417415033 (5) CAD (coronary artery disease) Narrative/Plan: * Stable continue dual antiplatelet therapy with Plavix and aspirin along with statin regimen Current Visit: No Status: Acute Code(s): I25.10 - ATHSCL HEART DISEASE OF [place] CORONARY ARTERY W/O ANG PCTRS SNOMED Code(s): 09609904 (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 Miller at outpatient setting Current Visit: Yes Status: Chronic Code(s): D47.1 - CHRONIC MYELOP ROLIFERATIVE DISEASE SNOMED Code(s): 065395651 (8) Gouty arthritis of great toe Narrative/Plan: * initiate prednisone 40 mg PO daily * plan to taper when symptoms improve Current Visit: Yes Status: Acute Code(s): M10.9 - GOUT, UNSPECIFIED SNOMED Code(s): 365317117 Plan: * Follow cardiology recommendations regarding pleural effusion patient possibly might be a candidate for thoracentesis * A follow-up GI recommendations regarding abdominal pain in patient with Petty's esophagus and hepatosplenomegaly likely due to underlying myeloproliferative disorder
[2019-04-01] MEDS ORDERED: predniSONE 20 MG TAB PO STA (17:45)
[2019-04-01] MEDS: DOXAZOSIN 4 MG TAB PO SCH (21:47)
--- NOTE | 2019-04-02 07:45 | P.PN ---
Subjective Progress Note Date: 04/02/19 Principal diagnosis: Shortness of breath This is a pleasant 79-year-old gentleman who follows Dr. GERI Pelayo in the office on regular basis with a past medical history significant for coronary artery disease and prior coronary revascularization, chronic atrial fibrillation currently not on oral anticoagulation in view of history of GI bleeding, chronic anemia secondary to myeloproliferative disease, peripheral arterial disease, as well as multiple comorbid conditions, presented to the hospital complaining of feeling weak and tired. The patient stated that he has been not feeling well for the last week. He was discharged from the hospital in March 2018 after he was admitted was congestive heart failure. The echocardiogram at that point revealed normal LV function. He was discharged on oral diuretics with Lasix 40 mg twice a day. He stated that he was taking his diuretics at home. He describes progressive exertional dyspnea and also bilateral lower extremities edema. Yesterday he did have a brief episode of atypical chest discomfort. Beside that he has been experiencing abdominal discomfort. He underwent a computed tomography scan of the abdomen which showed no acute intra-abdominal process. The chest x-ray showed findings consistent with CHF and pleural effusion. The BMP was checked and came in to be around 7000. The troponin is within normal limits. The EKG showed atrial fibrillation with diffuse nonspecific ST and T wave abnormalities. The hemoglobin was 9.3. He does have chronic anemia. The computed tomography scan also revealed large right pleural effusion and as a matter of fact the patient does have diminished breathing sounds over the right lung. On follow-up with the patient today, April 022018, he is feeling slightly better. Currently he is on Lasix IV. He stated that the shortness of breath has improved. He did undergo an ultrasound of chest yesterday and that revealed 12.6 cm right pleural effusion area we'll continue the IV Lasix at this point for additional 24 hours and continue monitor the patient as well as. Objective - Vital Signs Vital signs: Vital Signs Temp 97.9 F 04/02/19 04:00 Pulse 60 04/02/19 04:00 Resp 14 04/02/19 04:00 BP 110/62 04/02/19 04:00 Pulse Ox 96 04/02/19 04:00 Intake & Output 04/01/19 04/02/19 04/02/19 18:59 06:59 18:59 Intake Total 560 0 Output Total 450 Balance 560 -450 Intake: Oral 360 0 Other 200 Output: Urine 450 Other: Voiding Method Urinal Urinal - Constitutional General appearance: Present: no acute distress - Respiratory Respiratory: bilateral: diminished - Cardiovascular Rhythm: irregularly irregular - Labs CBC & Chem 7: 03/31/19 12:45 03/31/19 12:45 Labs: Abnormal Lab Results - Last 24 Hours (Table) 04/01/19 Range/Units 07:36 HDL Cholesterol 14 L (40-60) mg/dL Assessment and Plan Assessment: Assessment #1 progressive exertional dyspnea and bilateral lower extremities edema #2 mild congestive heart failure exacerbation secondary to diastolic dysfunction. #3 known chronic diastolic CHF. The patient underwent an echo recently showed normal LV function #4 marginate low blood pressure. #5 chronic atrial fibrillation was controlled heart rate #6 abdominal discomfort of unknown etiology #7 coronary artery disease and prior revascularization #8 multiple comorbid conditions including mild proliferative disease as well as chronic anemia Plan #1 continue the IV Lasix for additional 24 hours #2 continue monitor the kidney function and electrolytes #3 follow-up with the patient Thank you for allowing us participate in his care
[2019-04-02 07:58] LABS: Anisocytosis Marked; HCT 33.2 % (39.0-53.0); HGB 9.9 gm/dL (13.0-17.5); Hypochromasia Marked; MCH 28.6 pg (25.0-35.0); MCHC 29.8 g/dL (31.0-37.0); MCV 95.9 fL (80.0-100.0); Macrocytosis Moderate; Mean Platelet Volume 9.1; Platelet Count 848 k/uL (150-450); Poikilocytosis Marked; RBC 3.46 m/uL (4.30-5.90)
[2019-04-02] MEDS: ALLOPURINOL 100 MG TAB PO SCH (07:58)
[2019-04-02] MEDS: CLOPIDOGREL 75 MG TAB PO SCH (07:58)
[2019-04-02] MEDS: ATORVASTATIN 40 MG TAB PO SCH (07:58)
[2019-04-02] MEDS: FUROSEMIDE 10 MG/ML 4 ML VIAL IV SCH ×2 (07:58→21:10)
[2019-04-02] MEDS: ASPIRIN 81 MG PO SCH (07:58)
[2019-04-02] MEDS: PANTOPRAZOLE 40 MG TABLET PO SCH (07:59)
[2019-04-02] MEDS: predniSONE 20 MG TAB PO SCH (07:59)
[2019-04-02] MEDS: SPIRONOLACTONE 25 MG TAB PO SCH (07:59)
[2019-04-02] MEDS: METOPROLOL TARTRATE 50 MG TAB PO SCH ×3 (07:59→17:49)
[2019-04-02 08:00] LABS: RDW 26.1 % (11.5-15.5)
[2019-04-02 08:01] LABS: WBC 45.7 k/uL (3.8-10.6)
[2019-04-02 08:14] LABS: Calcium 8.7 mg/dL (8.4-10.2); Magnesium 1.8 mg/dL (1.6-2.3); Potassium 4.8 mmol/L (3.5-5.1)
[2019-04-02] MEDS: HYDROcodone/APAP 5-325MG 1 EACH TAB PO PRN ×2 (09:25→21:17)
--- NOTE | 2019-04-02 10:28 | P.PN ---
Subjective Progress Note Date: 04/02/19 The patient was seen and examined at the bedside. He notes continued mild diffuse abdominal pain and some shortness of breath. Denying chest pain, fever, chills, or cough. He notes improvement of his L great toe swelling and pain. Objective - Vital Signs Vital signs: Vital Signs Temp 98.1 F 04/02/19 08:00 Pulse 83 04/02/19 08:00 Resp 15 04/02/19 08:00 BP 124/64 04/02/19 08:00 Pulse Ox 97 04/02/19 08:00 Intake & Output 04/01/19 04/02/19 04/02/19 18:59 06:59 18:59 Intake Total 560 0 240 Output Total 450 300 Balance 560 -450 -60 Intake: Oral 360 0 240 Other 200 Output: Urine 450 300 Other: Voiding Method Urinal Urinal Toilet Urinal # Voids 1 - Exam General: Non-toxic, in no acute distress, appears stated age, normal weight HEENT: NC/AT, anicteric sclerae, moist conjunctiva, no lid-lag, PERRLA Cardiovascular: Irregularly irregular, no murmurs, rubs, or gallops Lungs: Mild bibasilar rales, normal respiratory effort, no accessory muscle use Abdominal: Soft, mild diffuse tenderness, non-distended, no guarding, rebound, or rigidity Skin: Warm, dry Extremities: 1+ tom LE edema, no contractures Psychiatric: Alert and oriented to person, place and time, appropriate affect Neuro: CN II-XII grossly intact, Strength 5/5 in all 4 extremities, Speech intact, Sensation to light touch grossly intact throughout - Labs CBC & Chem 7: 04/02/19 07:38 04/02/19 07:38 Labs: Abnormal Lab Results - Last 24 Hours (Table) 04/02/19 04/02/19 Range/Units 07:38 07:38 WBC 45.7 H (3.8-10.6) k/uL RBC 3.46 L (4.30-5.90) m/uL Hgb 9.9 L (13.0-17.5) gm/dL Hct 33.2 L (39.0-53.0) % MCHC 29.8 L (31.0-37.0) g/dL RDW 26.1 H (11.5-15.5) % Plt Count 848 H (150-450) k/uL Sodium 133 L (137-145) mmol/L Carbon Dioxide 21 L (22-30) mmol/L Glucose 134 H (74-99) mg/dL Assessment and Plan Plan: Acute on chronic diastolic CHF -Cardiology recs appreciated -C/w IV lasix q12h -Monitor BMP and electrolytes -C/w Aldactone Abdominal pain -GI consulted due to hx of Wilson's w/ high grade dysplasia and hepatosplenomegaly Persistent Afib, rate controlled -C/w Lopressor Coronary artery disease -C/w Aspirin, Lipitor, Plavix Myeloproliferative disorder Gouty arthritis -C/w Allopurinol and Prednisone DVT prophylaxis -IPCDs Discussed with: Patient Anticipated discharge date: 04/03/[address]: Home A total of 35 minutes was spent on the care of this complex patient more than 50% of the time was spent in counseling and care coordination.
--- NOTE | 2019-04-02 11:45 | XR ---
EXAMINATION TYPE: XR chest 2V DATE OF EXAM: 04/02/2019 COMPARISON: Prior chest x-ray 03/31/2019 HISTORY: Pleural effusion and shortness of breath TECHNIQUE: Frontal and lateral views of the chest are obtained. FINDINGS: Findings are similar to prior exam. There is blunting the right costophrenic angle. No pne umothorax. Patient is post median sternotomy. Heart size is stable and enlarged. Aorta is dense. Ther e are overlying cardiac leads. Interstitium is increased. IMPRESSION: Correlate to exclude pulmonary venous hypertension and interstitial edema. There is a ri ght pleural effusion and associated atelectasis.
--- NOTE | 2019-04-02 13:56 | P.CONS ---
History of Present Illness - Reason for Consult Consult date: 04/02/19 Petty's hepatosplenomegaly Requesting physician: Kris Cid - Chief Complaint Abdominal pain - History of Present Illness 79-year-old gentleman with a history of long-standing daily beer usage most of his adult life quit 3 years ago, Petty's esophagus, multiple GI bleeds, thrombocytosis, primary myelofibrosis per bone marrow aspiration frequent blood transfusions Procrit, CHF, CAD with recent stent February 2019, hypertension, A. fib, dyslipidemia. Patient presents with shortness of breath and abdominal pain. 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 CT abdomen and pelvis large right pleural effusion. Hepatosplenomegaly. No focal lesions. No free air. White count 29.9 increase to 45.7. Hemoglobin 9.9. Platelet 848. INR 1.4. Total bilirubin 1.6. AST 31. ALT 20. AP 111. Lipase 42. Troponin 3 less than 0.012. EGD in April 2018 for evaluation of severe symptomatic anemia identified a long segment of Petty's esophagus in early proximal esophageal stricture but no evidence of active bleeding. Biopsies were not obtained secondary to aspirin Plavix therapy. Previous EGD September 2017 showed evidence of Petty's esophagus with dysplasia. He was seen by GI service last month and underwent EGD evaluation for evaluation of GI bleed melena with no evidence of active bleeding mild gastritis no biopsies were taken in the setting of aspirin and Plavix. Long segment of B arrett's previously noted distal nonobstructing Schatzki ring proximal esophageal stricture. Patient was advised to follow-up with [facility] with consideration for ablation therapy secondary to his history of Petty's with dysplasia. Presently is tolerating solids and liquids without odynophagia or dysphagia. No nausea vomiting or obstructive symptoms. Review of Systems Constitutional: Denies fever, chills, sweats, weight gain, or loss. HEENT: Negative for migraines, blurred vision or loss, earaches, drainage, tinnitus, oral mucosal lesions, dysphagia, or odynophagia. Cardiac: Negative for chest pain, arrhythmias, or palpitation. Respiratory: Positive for shortness of breath, hemoptysis, cough, or sputum production. Gastrointestinal: See HPI for pertinent findings. Genitourinary: Negative for hematuria, urgency, frequency, polyuria, dysuria, or penile discharge. Musculoskeletal: Negative for muscle aches, swelling, arthritis, and arthra lgias. Neurologic: Negative for stroke or TIA. Endocrine: Negative for thyroid problems. Skin: Negative for rash or itching. Psychiatric: Negative history for depression and anxiety Past Medical History Past Medical History: Atrial Flutter, Blood Disorder, Coronary Artery Disease (CAD), Heart Failure, GERD/Reflux, GI Bleed, Hyperlipidemia, Hypertension, Myocardial Infarction ([place]), Prostate Disorder, Vascular Disorder Additional Past Medical History / Comment(s): myeloproliferative disorder(leukocytosis and thrombocytosis), esophagitis, severe PAD, severe pulmonary hypertension , right-sided heart failure with severe pulmonary hypertension, BPH, Exercise intolerance Last Myocardial Infarction Date:: 2017 History of Any Multi-Drug Resistant Organisms: Acinetobacter (MDRO), 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 tom inguinal hernia repair, coronary artery bypass surgery, EGD, colonoscopy. Cath with PCI to RCA 02/04/19 Past Anesthesia/Blood Transfusion Reactions: No Reported Reaction Past Psychological History: No Psychological Hx Reported Smoking Status: Former smoker Past Alcohol Use History: Rare Past Drug Use History: None Reported - Past Family History Brother(s) Family Medical History: Cancer Additional Family Medical History / Comment(s): 2 with lung and 1 with prostate Mother Family Medical History: Myocardial Infarction ([place]) Father History Unknown: Yes Additional Family Medical History / Comment(s): AT AGE 83 FROM "HARDENING OF THE ARTERIES" Medications and Allergies Home Medications Medication Instructions Recorded Confirmed Type Atorvastatin [Lipitor] 40 mg PO DAILY 09/27/14 03/31/19 History Spironolactone [Aldactone] 25 mg PO DAILY 11/12/17 03/31/19 History Aspirin 81 mg PO DAILY #30 chew 04/07/18 03/31/19 Rx Clopidogrel [Plavix] 75 mg PO DAILY #30 tab 04/07/18 03/31/19 Rx Pantoprazole Sodium [Protonix] 40 mg PO DAILY 07/14/18 03/31/19 History Isosorbide Mononitrate [Isosorbide 15 mg PO DAILY 01/29/19 03/31/19 History Mononitrate ER] Metoprolol Tartrate [Lopressor] 50 mg PO AC-TID 02/12/19 03/31/19 History rOPINIRole HCL [Requip] 1 mg PO HS 02/12/19 03/31/19 History Terazosin [Hytrin] 5 mg PO HS 02/28/19 03/31/19 History Furosemide [Lasix] 40 mg PO BID #60 tab 03/04/19 03/31/19 Rx Allopurinol [Zyloprim] 100 mg PO DAILY 03/31/19 03/31/19 History Allergies Allergy/AdvReac Type Severity Reaction Status Date / Time No Known Allergies Allergy Verified 02/28/19 19:56 Physical Exam Vitals: Vital Signs Temp Pulse Pulse Resp BP Pulse Ox 04/02/19 08:00 98.1 F 60 83 15 124/64 97 04/02/19 04:00 97.9 F 60 14 110/62 96 04/02/19 03:06 15 04/02/19 00:00 98.1 F 91 15 113/69 98 04/01/19 19:41 15 04/01/19 19:11 98.0 F 69 15 107/50 94 L 04/01/19 16:00 80 73 16 04/01/19 15:45 97.6 F 73 16 96/52 93 L 04/01/19 12:00 80 65 18 Intake and Output 04/01/19 04/02/19 04/02/19 22:59 06:59 14:59 Intake Total 180 0 240 Output Total 100 350 300 Balance 80 -350 -60 Intake: Oral 180 0 240 Output: Urine 100 350 300 Other: Voiding Method Urinal Urinal Toilet Urinal # Voids 1 General appearance: The patient is alert, oriented, in no acute distress. HET: Head is normocephalic and atraumatic. Pupils are equal and reactive. Oropharynx is clear without lesions. Neck: Supple without lymphadenopathy. Trachea midline. Heart: S1 S2. Regular rate and rhythm. Lungs: Diminished bilaterally. Abdomen: Soft, nontender, nondistended with bowel sounds. No peritoneal signs. No palpable organomegaly or masses. Extremities: Normal skin color and turgor. No cyanosis, rash, ulceration, clubbing, or edema. Radial and pedal pulses are 2/4 bilaterally. Neurological: No focal deficits. Strength and sensation are grossly intact. Results CBC & Chem 7: 04/02/19 07:38 04/02/19 07:38 Labs: Abnormal Lab Results - Last 24 Hours (Table) 04/02/19 04/02/19 Range/Units 07:38 07:38 WBC 45.7 H (3.8-10.6) k/uL RBC 3.46 L (4.30-5.90) m/uL Hgb 9.9 L (13.0-17.5) gm/dL Hct 33.2 L (39.0-53.0) % MCHC 29.8 L (31.0-37.0) g/dL RDW 26.1 H (11.5-15.5) % Plt Count 848 H (150-450) k/uL Sodium 133 L (137-145) mmol/L Carbon Dioxide 21 L (22-30) mmol/L Glucose 134 H (74-99) mg/dL CT scan - abdomen: report reviewed (Dr. Rebolledo) Assessment and Plan (1) Barretts esophagus Narrative/Plan: 79-year-old gentleman admitted with shortness of breath pleural effusion with a history of myelofibrosis, Petty's with dysplasia recent EGD 1 month ago for evaluation of anemia and melena reported no evidence of active bleeding long segment of Petty's was redemonstrated as previously noted biopsies were not taken in the setting of aspirin and Plavix. Additionally a nonobstructing dis rose marie Schatzki ring identified as well as a proximal esophageal stricture. Current Visit: Yes Status: Acute Code(s): K22.70 - PETTY'S ESOPHAGUS WITHOUT DYSPLASIA SNOMED Code(s): 990786152 (2) Hepatosplenomegaly Narrative/Plan: History of long standing chronic alcohol beer consumption quit 3 years ago. Liver function tests stable. Current Visit: Yes Status: Acute Code(s): R16.2 - HEPATOMEGALY WITH SPLENOMEGALY, NOT ELSEWHERE CLASSIFIED SNOMED Code(s): 69195260 (3) Myelofibrosis Current Visit: No Status: Chronic Priority: Medium Code(s): D75.81 - MYELOFIBROSIS SNOMED Code(s): 30073920 (4) Pleural effusion Current Visit: Yes Status: Acute Code(s): J90 - PLEURAL EFFUSION, NOT ELSEWHERE CLASSIFIED SNOMED Code(s): 80688091 (5) Dyspnea Current Visit: Yes Status: Acute Code(s): R06.00 - DYSPNEA, UNSPECIFIED SNOMED Code(s): 143907954 (6) Schatzki's ring of distal esophagus Current Visit: Yes Status: Acute Code(s): K22.2 - ESOPHAGEAL OBSTRUCTION SNOMED Code(s): 565832135 (7) Esophageal stricture Current Visit: Yes Status: Acute Code(s): K22.2 - ESOPHAGEAL OBSTRUCTION SNOMED Code(s): 89276350 Plan: 1. Patient was advised to follow up in GI office in 2-3 weeks for reevaluation further discussion of his hepatosplenomegaly. In regards to his history of Petty's Schatzki ring and proximal esophageal stricture he was advised to follow with [facility] for consideration of ablative therapy. GI office will help coordinate this referral process. Continue to abstain from alcohol consumption. Protonix 40 mg daily. Thank you for this kind referral and the opportunity to participate in the care of your patient. This consultation was discussed with Dr. Rebolledo. The impression and plan of care have been directed as dictated.
--- NOTE | 2019-04-02 17:56 | P.CNPUL ---
History of Present Illness Consult date: 04/02/19 Reason for consult: pleural effusion Chief complaint: shortness of breath, abdominal pain. History of present illness: this is a 79-year-old white male with history of multiple medical problems including multiple previous episodes of GI bleeding, myeloproliferative disorder, diastolic congestive heart failure, coronary artery disease, recurrent episodes of abdominal pains, patient presented to the ER on 03/31/2019, and he was complaining of shortness of breath on exertion which is basically chronic, he was also complaining of generalized abdominal pain mostly in the lower quadrants of the abdomen. Pain was described as constant, dull ache, on a scale of 5-6 out of 10. Patient had no symptoms of melena or hematemesis, although he had multiple previous episodes of GI bleeding. Patient was also complaining of some dyspnea on exertion no chest pain, no fever, no chills, no hemoptysis. He was also complaining of generalized fatigue, malaise,and looking back at the chart patient had previous history of pleural effusion which we have drained about a year ago. His pleural effusion in the past was felt to be cardiac in nature. At any rate workup including a chest x-ray and CT of the chest and abdomen showed a small to moderate right-sided pleural effusion. Hence this consult was initiated. His CT of the abdomen also showed hepatosplenomegaly. Laboratory workup showed leukocytosis, WBC count of 29.9, platelets were also high at 848, hemoglobin 9.9. Troponins 3 were less than 0.02. Patient is also known to have history of Wilson esophagus, and history of distal nonobstructing schatzkis ring.pulmonary-will, I evaluated the pleural effusion on the CT of the chest, chest x-ray, and ultrasound, felt to be small to moderate, and felt that the draining the fluid will not affect his shortness of breath much, however I did recommend follow-up chest x-ray in the morning, and if it shows any wors ening may consider thoracentesis. In the meantime the patient was noted to be comfortable on room air, and in no distress. Review of Systems Constitutional: no weight loss, denies fevers or chills. HEENT: no sore throat, no earache, no blurred vision, no dysphagia. Cardiac: chronic shortness of breath, and chronic diastolic congestive heart failure. Patient is relatively asymptomatic except for dyspnea on exertion. Respiratory: as noted on HPI, mostly some shortness of breath on exertion. Gastrointestinal: abdominal pain as noted in HPI, otherwise unremarkable.. Genitourinary: no dysuria frequency urgency hematuria or incontinence.. Musculoskeletal: vague aches and pains otherwise unremarkable. No arthralgias. Neurologic: no headache no blurred vision no dizziness. Endocrine: denies any symptoms of hypo-or hyperthyroidism, and no symptoms of diabetes. Skin: no rashes. Psychiatric: denies any symptoms of depression. Past Medical History Past Medical History: Atrial Flutter, Blood Disorder, Coronary Artery Disease (CAD), Heart Failure, GERD/Reflux, GI Bleed, Hyperlipidemia, Hypertension, Myocardial Infarction ([place]), Prostate Disorder, Vascular Disorder Additional Past Medical History / Comment(s): myeloproliferative disorder(leukocytosis and thrombocytosis), esophagitis, severe PAD, severe pulmonary hypertension , right-sided heart failure with severe pulmonary hyp ertension, BPH, Exercise intolerance Last Myocardial Infarction Date:: 2017 History of Any Multi-Drug Resistant Organisms: Acinetobacter (MDRO), MRSA Date of last positivie culture/infection: 05/12/18-MRSA MDRO Source:: Foot-MRSA Past Surgical History: Cholecystectomy, Coronary Bypass/CABG, Heart Catheterization, Hernia Repair Additional Past Surgical History / Comment(s): Cardiac catheterization on 10/04/2014, right femoral artery/common femoral artery endarterectomy. arthrectomy/balloon angioplasty of right superficial femoral artery on 018, 04/04/18 rt groin exploration of rt groin femoral artey pseudoanuerysm. tom inguinal hernia repair, coronary artery bypass surgery, EGD, colonoscopy. Cath with PCI to RCA 02/04/19 Past Anesthesia/Blood Transfusion Reactions: No Reported Reaction Past Psychological History: No Psychological Hx Reported Smoking Status: Former smoker Past Alcohol Use History: Rare Past Drug Use History: None Reported - Past Family History Brother(s) Family Medical History: Cancer Additional Family Medical History / Comment(s): 2 with lung and 1 with prostate Mother Family Medical History: Myocardial Infarction ([place]) Father History Unknown: Yes Additional Family Medical History / Comment(s): AT AGE 83 FROM "HARDENING OF THE ARTERIES" Medications and Allergies Home Medications Medication Instructions Recorded Confirmed Type Atorvastatin [Lipitor] 40 mg PO DAILY 09/27/14 03/31/19 History Spironolactone [Aldactone] 25 mg PO DAILY 11/12/17 03/31/19 History Aspirin 81 mg PO DAILY #30 chew 04/07/18 03/31/19 Rx Clopidogrel [Plavix] 75 mg PO DAILY #30 tab 04/07/18 03/31/19 Rx Pantoprazole Sodium [Protonix] 40 mg PO DAILY 07/14/18 03/31/19 History Isosorbide Mononitrate [Isosorbide 15 mg PO DAILY 01/29/19 03/31/19 History Mononitrate ER] Metoprolol Tartrate [Lopressor] 50 mg PO AC-TID 02/12/19 03/31/19 History rOPINIRole HCL [Requip] 1 mg PO HS 02/12/19 03/31/19 History Terazosin [Hytrin] 5 mg PO HS 02/28/19 03/31/19 History Furosemide [Lasix] 40 mg PO BID #60 tab 03/04/19 03/31/19 Rx Allopurinol [Zyloprim] 100 mg PO DAILY 03/31/19 03/31/19 History Allergies Allergy/AdvReac Type Severity Reaction Status Date / Time No Known Allergies Allergy Verified 02/28/19 19:56 Physical Exam Vitals: Vital Signs Temp Pulse Pulse Resp BP Pulse Ox 04/02/19 16:00 97.7 F 80 18 101/66 92 L 04/02/19 12:00 97.7 F 86 83 16 111/58 95 04/02/19 08:00 98.1 F 60 83 15 124/64 97 04/02/19 04:00 97.9 F 60 14 110/62 96 04/02/19 03:06 15 04/02/19 00:00 98.1 F 91 15 113/69 98 04/01/19 19:41 15 04/01/19 19:11 98.0 F 69 15 107/50 94 L Intake and Output 04/02/19 04/02/19 04/02/19 06:59 14:59 22:59 Intake Total 0 365 Output Total 350 300 Balance -350 65 Intake: Oral 0 365 Output: Urine 350 300 Other: Voiding Method Urinal Toilet Urinal # Voids 1 Physical Exam: Revealed a 79-year-old white male, frail looking, in no distress. Pleasant, on room air. Head: Atraumatic, normocephalic. HEENT:[Neck is supple.] [No neck masses.] [No thyromegaly.] [No JVD.] Chest: slightly diminished breath sounds at the right base, left side is clear, no crackles or rhonchi or wheezes. Symmetrical chest expansion noted chest wall tenderness. Cardiac Exam: [Normal S1 and S2, no S3 gallop, no murmur.] Abdomen: [Soft, nontender, no megaly, no rebound, no guarding, normal bowel sounds.] Extremities: [No clubbing, no edema, no cyanosis.]good pulses bilaterally. Neurological Exam: [No focal neurologic deficit.]alert and oriented 3. Psychiatric: Normal mood, affect and mental status examination. Lymphatics: No lymphadenopathy. Results - Laboratory Findings CBC and BMP: 04/02/19 07:38 04/02/19 07:38 PT/INR, D-dimer PT 14.6 sec (9.0-12.0) H 03/31/19 12:45 INR 1.4 (<1.2) H 03/31/19 12:45 Abnormal lab findings: Abnormal Labs 03/31/19 03/31/19 03/31/19 12:45 12:45 12:45 WBC 29.9 H RBC 3.21 L Hgb 9.3 L Hct 30.5 L MCHC 30.6 L RDW 27.2 H Plt Count 755 H Neutrophils # (Manual) 22.10 H Monocytes # (Manual) 1.20 H Eosinophils # (Manual) 0.90 H Metamyelocytes # (Man) 1.20 H Myelocytes # (Manual) 2.39 H Nucleated RBCs 5 H PT 14.6 H INR 1.4 H Sodium 131 L Carbon Dioxide 21 L Glucose 73 L Total Bilirubin 1.6 H Total Protein 5.4 L Albumin 3.2 L HDL Cholesterol 04/01/19 04/02/19 04/02/19 07:36 07:38 07:38 WBC 45.7 H RBC 3.46 L Hgb 9.9 L Hct 33.2 L MCHC 29.8 L RDW 26.1 H Plt Count 848 H Neutrophils # (Manual) Monocytes # (Manual) Eosinophils # (Manual) Metamyelocytes # (Man) Myelocytes # (Manual) Nucleated RBCs PT INR Sodium 133 L Carbon Dioxide 21 L Glucose 134 H Total Bilirubin Total Protein Albumin HDL Cholesterol 14 L - Diagnostic Findings Comments: as noted in HPI. Chest x-ray: image reviewed (as noted in HPI.) CT scan - chest: image reviewed Assessment and Plan Assessment: impression: 1 small to moderate right-sided pleural effusion, likely chronic,most likely cardiogenic in nature and the patient has chronic diastolic congestive heart failure. 2abdominal pain with multiple abnormal findings and abnormal GI history including hepatosplenomegaly, Wilson esophagus and high-grade dysplasia, that is being addressed by the gastroenterology service. 3 chronic atrial fibrillation, rate seems to be fairly well controlled. 4 acute on chronic congestive heart failure, diastolic in nature, recent echocardiogram done in the last month showed ejection fraction of 55-60%. 5 progressive dyspnea and shortness of breath on exertion mostly cardiac related, may consider thoracentesis, however on physical examination I felt strongly that the effusion is rather small, and most likely is not worth taking the risk of thoracentesis. Not to mention the patient would not benefit much from draining a small amount of pleural effusion. Recommendation: Agree fully with the present treatment plan as per the admitting physician and multiple consultants, will review the chest x-ray again in a.m., may or may not consider thoracentesis. We'll continue to follow. In the meantime continue treatment plan for chronic diastolic congestive heart failure, and I have a strong feeling that the fluid will improve with diuretics only. Time with Patient: Greater than 30
[2019-04-02] MEDS: DOXAZOSIN 4 MG TAB PO SCH (21:10)
[2019-04-03] MEDS: HYDROcodone/APAP 5-325MG 1 EACH TAB PO PRN ×2 (05:12→14:40)
[2019-04-03 06:47] LABS: Albumin 3.4 g/dL (3.5-5.0); Anisocytosis Marked; Calcium 8.7 mg/dL (8.4-10.2); HCT 31.7 % (39.0-53.0); HGB 9.5 gm/dL (13.0-17.5); Hypochromasia Marked; MCH 28.8 pg (25.0-35.0); MCHC 30.1 g/dL (31.0-37.0); MCV 95.6 fL (80.0-100.0); Macrocytosis Moderate; Magnesium 1.7 mg/dL (1.6-2.3); Mean Platelet Volume 8.9; Microcytosis Slight; Platelet Count 880 k/uL (150-450); Poikilocytosis Marked; Potassium 4.6 mmol/L (3.5-5.1); RBC 3.31 m/uL (4.30-5.90); Total Bilirubin 1.5 mg/dL (0.2-1.3); Total Protein 5.5 g/dL (6.3-8.2); WBC 49.9 k/uL (3.8-10.6)
[2019-04-03 06:54] LABS: RDW 26.3 % (11.5-15.5)
--- NOTE | 2019-04-03 07:38 | P.PN ---
Subjective Progress Note Date: 04/03/19 Principal diagnosis: Shortness of breath This is a pleasant 79-year-old gentleman who follows Dr. GERI Pelayo in the office on regular basis with a past medical history significant for coronary artery disease and prior coronary revascularization, chronic atrial fibrillation currently not on oral anticoagulation in view of history of GI bleeding, chronic anemia secondary to myeloproliferative disease, peripheral arterial disease, as well as multiple comorbid conditions, presented to the hospital complaining of feeling weak and tired. The patient stated that he has been not feeling well for the last week. He was discharged from the hospital in March 2018 after he was admitted was congestive heart failure. The echocardiogram at that point revealed normal LV function. He was discharged on oral diuretics with Lasix 40 mg twice a day. He stated that he was taking his diuretics at home. He describes progressive exertional dyspnea and also bilateral lower extremities edema. Yesterday he did have a brief episode of atypical chest discomfort. Beside that he has been experiencing abdominal discomfort. He underwent a computed tomography scan of the abdomen which showed no acute intra-abdominal process. The chest x-ray showed findings consistent with CHF and pleural effusion. The BMP was checked and came in to be around 7000. The troponin is within normal limits. The EKG showed atrial fibrillation with diffuse nonspecific ST and T wave abnormalities. The hemoglobin was 9.3. He does have chronic anemia. The computed tomography scan also revealed large right pleural effusion and as a matter of fact the patient does have diminished breathing sounds over the right lung. On follow-up with the patient today, April [id number], the patient is feeling better indeterminable shortness of breath. No lower extremities edema. On examination I can hear breathing sounds over the right lung base and mid field as well as. He was seen yesterday by Dr. King. The patient currently on Lasix IV. The creatinine continues to be stable. I would continue the current medical regimen including the Lasix IV and continue monitor the kidney function and electrolytes. Unless the patient is going to have pleurocentesis later on today. Objective - Vital Signs Vital signs: Vital Signs Temp 97.5 F L 04/03/19 03:32 Pulse 62 04/03/19 03:32 Resp 18 04/03/19 03:46 BP 125/64 04/03/19 03:32 Pulse Ox 93 L 04/03/19 03:32 Intake & Output 04/02/19 04/03/19 04/03/19 18:59 06:59 18:59 Intake Total 545 Output Total 300 Balance 245 Intake: Oral 545 Output: Urine 300 Other: Voiding Method Toilet Toilet Urinal Urinal # Voids 1 1 - Constitutional General appearance: Present: no acute distress - Respiratory Respiratory: right: diminished - Cardiovascular Rhythm: irregularly irregular Heart sounds: normal: S1, S2 - Labs CBC & Chem 7: 04/03/19 06:01 04/03/19 06:01 Labs: Abnormal Lab Results - Last 24 Hours (Table) 04/02/19 04/02/19 04/03/19 Range/Units 07:38 07:38 06:01 WBC 45.7 H 49.9 H (3.8-10.6) k/uL RBC 3.46 L 3.31 L (4.30-5.90) m/uL Hgb 9.9 L 9.5 L (13.0-17.5) gm/dL Hct 33.2 L 31.7 L (39.0-53.0) % MCHC 29.8 L 30.1 L (31.0-37.0) g/dL RDW 26.1 H 26.3 H (11.5-15.5) % Plt Count 848 H 880 H (150-450) k/uL Sodium 133 L (137-145) mmol/L Carbon Dioxide 21 L (22-30) mmol/L BUN (9-20) mg/dL Glucose 134 H (74-99) mg/dL Total Bilirubin (0.2-1.3) mg/dL ALT (21-72) U/L Alkaline Phosphatase (38-126) U/L Total Protein (6.3-8.2) g/dL Albumin (3.5-5.0) g/dL 04/03/19 Range/Units 06:01 WBC (3.8-10.6) k/uL RBC (4.30-5.90) m/uL Hgb (13.0-17.5) gm/dL Hct (39.0-53.0) % MCHC (31.0-37.0) g/dL RDW (11.5-15.5) % Plt Count (150-450) k/uL Sodium 130 L (137-145) mmol/L Carbon Dioxide (22-30) mmol/L BUN 25 H (9-20) mg/dL Glucose 125 H (74-99) mg/dL Total Bilirubin 1.5 H (0.2-1.3) mg/dL ALT 18 L (21-72) U/L Alkaline Phosphatase 133 H (38-126) U/L Total Protein 5.5 L (6.3-8.2) g/dL Albumin 3.4 L (3.5-5.0) g/dL Assessment and Plan Assessment: Assessment #1 progressive exertional dyspnea and bilateral lower extremities edema #2 mild congestive heart failure exacerbation secondary to diastolic dysfunction. #3 known chronic diastolic CHF. The patient underwent an echo recently showed normal LV function #4 marginate low blood pressure. #5 chronic atrial fibrillation was controlled heart rate #6 abdominal discomfort of unknown etiology #7 coronary artery disease and prior revascularization #8 multiple comorbid conditions including mild proliferative disease as well as chronic anemia Plan #1 continue the IV Lasix for additional 24 hours #2 continue monitor the kidney function and electrolytes #3 the patient also has been seen by the pulmonary critical team care. #4 possible pleurocentesis. Thank you for allowing us participate in his care
--- NOTE | 2019-04-03 08:32 | XR ---
EXAMINATION TYPE: XR chest 1V portable DATE OF EXAM: 04/03/2019 COMPARISON: Prior chest x-ray 04/02/2019 HISTORY: Congestive heart failure, pleural effusion TECHNIQUE: Single frontal view of the chest is obtained. FINDINGS: Perihilar vascular indistinctness is present, the heart is enlarged. No evident pneumothor ax. Patient is post median sternotomy and there are overlying cardiac leads. Interstitium is increase d. Difficult to exclude small effusion. IMPRESSION: Correlate for pulmonary venous hypertension and interstitial edema. Follow-up is recomme nded.
[2019-04-03] MEDS: SPIRONOLACTONE 25 MG TAB PO SCH (09:04)
[2019-04-03] MEDS: ATORVASTATIN 40 MG TAB PO SCH (09:04)
[2019-04-03] MEDS: FUROSEMIDE 10 MG/ML 4 ML VIAL IV SCH ×2 (09:04→20:28)
[2019-04-03] MEDS: ASPIRIN 81 MG PO SCH (09:05)
[2019-04-03] MEDS: PANTOPRAZOLE 40 MG TABLET PO SCH (09:05)
[2019-04-03] MEDS: ALLOPURINOL 100 MG TAB PO SCH (09:05)
[2019-04-03] MEDS: CLOPIDOGREL 75 MG TAB PO SCH (09:05)
[2019-04-03] MEDS: METOPROLOL TARTRATE 50 MG TAB PO SCH ×3 (09:05→18:29)
[2019-04-03] MEDS: predniSONE 20 MG TAB PO SCH (09:05)
--- NOTE | 2019-04-03 12:19 | P.PN ---
Subjective Progress Note Date: 04/03/19 Principal diagnosis: this is a 79-year-old white male with history of multiple medical problems including multiple previous episodes of GI bleeding, myeloproliferative disorder, diastolic congestive heart failure, coronary artery disease, recurrent episodes of abdominal pains, patient presented to the ER on 03/31/2019, and he was complaining of shortness of breath on exertion which is basically chronic, he was also complaining of generalized abdominal pain mostly in the lower quadrants of the abdomen. Pain was described as constant, dull ache, on a scale of 5-6 out of 10. Patient had no symptoms of melena or hematemesis, although he had multiple previous episodes of GI bleeding. Patient was also complaining of some dyspnea on exertion no chest pain, no fever, no chills, no hemoptysis. He was also complaining of generalized fatigue, malaise,and looking back at the c [place] patient had previous history of pleural effusion which we have drained about a year ago. His pleural effusion in the past was felt to be cardiac in nature. At any rate workup including a chest x-ray and CT of the chest and abdomen showed a small to moderate right-sided pleural effusion. Hence this consult was initiated. His CT of the abdomen also showed hepatosplenomegaly. Laboratory workup showed leukocytosis, WBC count of 29.9, platelets were also high at 848, hemoglobin 9.9. Troponins 3 were less than 0.02. Patient is also known to have history of Wilson esophagus, and history of distal nonobstructing schatzkis ring.pulmonary-will, I evaluated the pleural effusion on the CT of the chest, chest x-ray, and ultrasound, felt to be small to moderate, and felt that the draining the fluid will not affect his shortness of breath much, however I did recommend follow-up chest x-ray in the morning, and if it shows any worsening may consider thoracentesis. In the meantime the patient was noted to be comfortable on room air, and in no distress. The patient is seen today 04/03/2019 in follow-up on the regular medical floor. He is awake and alert in no acute distress. He denies any worsening shortness of breath, cough or congestion. Currently maintaining good O2 saturations in the mid 90s on room air. He's been afebrile. Hemodynamically stable. White count 49.9. Hemoglobin 9.5. Platelet count 880,000. Creatinine 0.99. He remains on Lasix 40 mg every 12 hours and Aldactone. Prednisone 40 mg daily. Objective - Vital Signs Vital signs: Vital Signs Temp 97.9 F 04/03/19 08:00 Pulse 68 04/03/19 11:00 Resp 17 04/03/19 11:00 BP 113/68 04/03/19 11:00 Pulse Ox 96 04/03/19 11:00 Intake & Output 04/02/19 04/03/19 04/03/19 18:59 06:59 18:59 Intake Total 545 480 Output Total 300 Balance 245 480 Intake: Oral 545 480 Output: Urine 300 Other: Voiding Method Toilet Toilet Toilet Urinal Urinal Urinal # Voids 1 1 2 - Exam GENERAL EXAM: Alert, active, comfortable in no apparent distress. Room air. HEAD: Normocephalic. EYES: Normal reaction of pupils, equal size. NOSE: Clear with pink turbinates. THROAT: No erythema or exudates. NECK: No masses, no JVD. CHEST: No chest wall deformity. LUNGS: Equal air entry with faint crackles in the posterior bases right greater than left. CVS: S1 and S2 normal with no audible murmur, irregular rhythm. ABDOMEN: No hepatosplenomegaly, normal bowel sounds, no guarding or rigidity. SPINE: No scoliosis or deformity SKIN: No rashes CENTRAL NERVOUS SYSTEM: No focal deficits, tone is normal in all 4 extremities. EXTREMITIES: There is trace peripheral edema. No clubbing, no cyanosis. Peripheral pulses are intact. - Labs CBC & Chem 7: 04/03/19 06:01 04/03/19 06:01 Labs: Abnormal Lab Results - Last 24 Hours (Table) 04/03/19 04/03/19 Range/Units 06:01 06:01 WBC 49.9 H (3.8-10.6) k/uL RBC 3.31 L (4.30-5.90) m/uL Hgb 9.5 L (13.0-17.5) gm/dL Hct 31.7 L (39.0-53.0) % MCHC 30.1 L (31.0-37.0) g/dL RDW 26.3 H (11.5-15.5) % Plt Count 880 H (150-450) k/uL Sodium 130 L (137-145) mmol/L BUN 25 H (9-20) mg/dL Glucose 125 H (74-99) mg/dL Total Bilirubin 1.5 H (0.2-1.3) mg/dL ALT 18 L (21-72) U/L Alkaline Phosphatase 133 H (38-126) U/L Total Protein 5.5 L (6.3-8.2) g/dL Albumin 3.4 L (3.5-5.0) g/dL Assessment and Plan Assessment: impression: 1 small to moderate right-sided pleural effusion, likely chronic,most likely cardiogenic in nature and the patient has chronic diastolic congestive heart failure. 2abdominal pain with multiple abnormal findings and abnormal GI history including hepatosplenomegaly, Wilson esophagus and high-grade dysplasia, that is being addressed by the gastroenterology service. 3 chronic atrial fibrillation, rate seems to be fairly well controlled. 4 acute on chronic congestive heart failure, diastolic in nature, recent echocardiogram done in the last month showed ejection fraction of 55-60%. 5 progressive dyspnea and shortness of breath on exertion mostly cardiac related, today's chest x-ray shows no significant effusion. 6 myeloproliferative disorder Recommendation: The patient was seen and evaluated by Dr. King. Chest x-ray and labs were reviewed. No plans for thoracentesis at this time. He remains on IV diuretics per cardiology. Following discharge she should follow-up in our office in 1-2 weeks' time. We'll repeat a chest x-ray then. In the interim, we'll continue to follow make further recommendations based on his clinical status. I, the cosigning physician, performed a history & physical examination of the patient. Lungs sounds with faint crackles in posterior bases right greater than left. Maintaining good O2 saturations in the 90s on room air. I discussed the assessment and plan of care with my nurse practitioner, Cristiana Landers. I attest to the above note as dictated by her.
[2019-04-03] MEDS ORDERED: DARBEPOETIN ALFA 100MCG/0.5ML SYRINGE SQ SCH (17:00)
--- NOTE | 2019-04-03 17:02 | P.PN ---
Subjective Progress Note Date: 04/03/19 The patient was seen and examined at the bedside on 04/03/19. He was in good spirits and notes that his abdominal pain has resolved. He notes some continued shortness of breath along with some LE edema. He otherwise denied fever, chills, chest pain, nausea, vomiting, or diaphoresis. Objective - Vital Signs Vital signs: Vital Signs Temp 97.7 F 04/03/19 15:41 Pulse 56 L 04/03/19 16:00 Resp 16 04/03/19 16:00 BP 108/65 04/03/19 15:41 Pulse Ox 94 L 04/03/19 15:41 Intake & Output 04/02/19 04/03/19 04/03/19 18:59 06:59 18:59 Intake Total 545 605 Output Total 300 600 Balance 245 5 Intake: Oral 545 605 Output: Urine 300 600 Other: Voiding Method Toilet Toilet Toilet Urinal Urinal Urinal # Voids 1 1 2 - Exam General: Non-toxic, in no acute distress, appears stated age, normal weight HEENT: NC/AT, anicteric sclerae, moist conjunctiva, no lid-lag, PERRLA Cardiovascular: Irregularly irregular, no murmurs, rubs, or gallops Lungs: Mild bibasilar rales, normal respiratory effort, no accessory muscle use Abdominal: Soft, non-tender, non-distended, no guarding, rebound, or rigidity Skin: Warm, dry Extremities: Trace LE edema, no contractures Psychiatric: Alert and oriented to person, place and time, appropriate affect Neuro: CN II-XII grossly intact, Strength 5/5 in all 4 extremities, Speech i ntact, Sensation to light touch grossly intact throughout - Labs CBC & Chem 7: 04/03/19 06:01 04/03/19 06:01 Labs: Abnormal Lab Results - Last 24 Hours (Table) 04/03/19 04/03/19 Range/Units 06:01 06:01 WBC 49.9 H (3.8-10.6) k/uL RBC 3.31 L (4.30-5.90) m/uL Hgb 9.5 L (13.0-17.5) gm/dL Hct 31.7 L (39.0-53.0) % MCHC 30.1 L (31.0-37.0) g/dL RDW 26.3 H (11.5-15.5) % Plt Count 880 H (150-450) k/uL Sodium 130 L (137-145) mmol/L BUN 25 H (9-20) mg/dL Glucose 125 H (74-99) mg/dL Total Bilirubin 1.5 H (0.2-1.3) mg/dL ALT 18 L (21-72) U/L Alkaline Phosphatase 133 H (38-126) U/L Total Protein 5.5 L (6.3-8.2) g/dL Albumin 3.4 L (3.5-5.0) g/dL Assessment and Plan Plan: Acute on chronic diastolic CHF -Cardiology recs appreciated -C/w IV lasix q12h -Monitor BMP and electrolytes -C/w Aldactone Abdominal pain w/ hepatosplenomegaly -GI recs appreciated -Patient will f/u as an outpatient w/ GI clinic Persistent Afib, rate controlled -C/w Lopressor Coronary artery disease -C/w Aspirin, Lipitor, Plavix Leukocytosis, thrombocytosis, chronic -- secondary to myeloproliferative disorder -Follows as an outpatient w/ Hematology Gouty arthritis -C/w Allopurinol and Prednisone DVT prophylaxis -IPCDs Discussed with: Patient Anticipated discharge date: 04/04/[address]: Home A total of 35 minutes was spent on the care of this complex patient more than 50% of the time was spent in counseling and care coordination.
[2019-04-03] MEDS: DOXAZOSIN 4 MG TAB PO SCH (20:28)
[2019-04-04] MEDS: HYDROcodone/APAP 5-325MG 1 EACH TAB PO PRN (08:05)
[2019-04-04] MEDS: ALLOPURINOL 100 MG TAB PO SCH (08:07)
[2019-04-04] MEDS: PANTOPRAZOLE 40 MG TABLET PO SCH (08:07)
[2019-04-04 08:35] LABS: Calcium 8.7 mg/dL (8.4-10.2); Potassium 3.8 mmol/L (3.5-5.1)
[2019-04-04 08:50] LABS: Anisocytosis Marked; HGB 9.4 gm/dL (13.0-17.5); Hypochromasia Marked; MCHC 29.3 g/dL (31.0-37.0); MCV 95.5 fL (80.0-100.0); Macrocytosis Moderate; Mean Platelet Volume 9.7; Microcytosis Slight; Poikilocytosis Marked; RBC 3.35 m/uL (4.30-5.90); WBC 46.5 k/uL (3.8-10.6)
[2019-04-04 09:11] LABS: RDW 26.1 % (11.5-15.5)
[2019-04-04 09:13] LABS: Platelet Count 806 k/uL (150-450)
[2019-04-04] MEDS: FUROSEMIDE 10 MG/ML 4 ML VIAL IV SCH (10:39)
[2019-04-04] MEDS: ATORVASTATIN 40 MG TAB PO SCH (10:39)
[2019-04-04] MEDS: METOPROLOL TARTRATE 50 MG TAB PO SCH (10:39)
[2019-04-04] MEDS: CLOPIDOGREL 75 MG TAB PO SCH (10:39)
[2019-04-04] MEDS: ASPIRIN 81 MG PO SCH (10:39)
[2019-04-04] MEDS: predniSONE 20 MG TAB PO SCH (10:40)
[2019-04-04] MEDS: SPIRONOLACTONE 25 MG TAB PO SCH (10:41)
[2019-04-04 13:51] VITALS: BP 110/54; PULSE 79; RESP 20; TEMP 97.7
--- NOTE | 2019-04-04 15:04 | P.DS ---
Providers Date of admission: 04/02/19 14:30 Expected date of discharge: 04/04/19 Attending physician: Kris Cid MD Consults: 03/31/19 15:27 Consult Physician Urgent Consulting Provider: Elicia Briones Consult Reason/Comments: chest pain Do you want consulting provider notified?: Yes 04/02/19 15:04 Consult Physician Urgent Consulting Provider: Bernarda King Consult Reason/Comments: R sided pleural effusion w/ shortness of breath Do you want consulting provider notified?: Yes Primary care physician: [facility] Course: 79-year-old male with a past medical history of multiple GI bleeds, myeloproliferative disorder requiring frequent transfusions and weekly Procrit, A. fib, CHF, coronary artery disease with recent stent placement on 02/04/19 to t he RCA, hypertension, and dyslipidemia who presented to the emergency department with complaints of shortness of breath. The patient reports increasing weakness fatigue and dyspnea and exertion, reports his lower extremities are swollen. Chest x-ray was consistent with mild pulmonary valve her congestion and trace right pleural effusion suggestive of decompensated CHF the right hilar prominence that could relate to the pulmonary edema or developing pneumonia. Patient's shortness of breath was thought to be secondary to acute on chronic diastolic CHF. Cardiology was consulted and recommended IV diuresis. Patient was diuresed with Lasix 40 mg IV twice a day. His home medication of metoprolol and Aldactone was restarted as well. Chest ultrasound showed a right sided pleural effusion. Pulmonology was consulted and recommended no pleurocentesis. With regard to his abdominal pain, KUB showed nonobstructive bowel gas pattern. CT abdomen and pelvis showed negative for bowel obstruction, hepatosplenomegaly, large right pleural effusion. Gastroenterology was consulted and recommended a follow-up in 2-3 weeks for reevaluation for further discussion of his hepatosplenomegaly. Otherwise, his home medications was resumed for persistent atrial fibrillation, coronary artery disease, gouty arthritis. Patient was seen and examined prior to discharge. No acute events overnight. Patient reports great improvement in his breathing and his lower extremity swelling since admission. States that he is not 100% back to baseline but feels well otherwise. He denies any chest pain or palpitations. No nausea or vomiting. No fever or chills. Looking for to going home, states that his is in need of assistance. General: [non toxic], [no distress], [appears at stated age] Derm: [warm], [dry] Head: [atraumatic], [normocephalic], [symmetric] Eyes: [EOMI], [no lid lag], [anicteric sclera] Mouth: [no lip lesion], [mucus membranes moist] Cardiovascular: [S1S2 reg], [Irregularly irregular], [positive DP pulse bilateral], Lungs: [CTA bilateral], [no rhonchi, no rales] , [no accessory muscle use] Abdominal: [soft], [ nontender to palpation], [no guarding], [no appreciable organomegaly] Ext: [no gross muscle atrophy], [1+ lower extremity edema], [no contractures] Neuro: [[no focal neuro deficits] Psych: [Alert], [oriented], [appropriate affect] Assessment and Plan Acute on chronic diastolic congestive heart failure Abdominal pain likely secondary to hepatosplenomegaly Persistent atrial fibrillation Coronary artery disease Leukocytosis and thrombocytosis likely secondary to myeloproliferative disorder Gouty arthritis Patient was evaluated by cardiology, recommendation to switch to oral Lasix. We'll continue metoprolol and Aldactone. Resolved. CT AP showing hepatosplenomegaly. Will arrange follow-up with GI service in 2-3 weeks for further workup. Stable. Rate control with metoprolol. No anticoagulation due to history of GI bleed. Continue with aspirin, Lipitor and Plavix. Chronic in nature. Follow-up hematology in the outpatient setting. Continue allopurinol and prednisone. Patient cleared by cardiology for DC home. Pertinent Studies: chest x-ray, KUB, CTA PE, chest ultrasound Patient Condition at Discharge: Fair Plan - Discharge Summary Discharge Rx Participant: No New Discharge Prescriptions: New predniSONE 40 mg PO DAILY tab Continue Atorvastatin [Lipitor] 40 mg PO DAILY Spironolactone [Aldactone] 25 mg PO DAILY Aspirin 81 mg PO DAILY #30 chew Clopidogrel [Plavix] 75 mg PO DAILY #30 tab Pantoprazole Sodium [Protonix] 40 mg PO DAILY Metoprolol Tartrate [Lopressor] 50 mg PO AC-TID rOPINIRole HCL [Requip] 1 mg PO HS Terazosin [Hytrin] 5 mg PO HS Allopurinol [Zyloprim] 100 mg PO DAILY Epoetin [place] [Procrit] 40,000 units IV WEEKLY Furosemide [Lasix] 40 mg PO BID #60 tab Discontinued Isosorbide Mononitrate [Isosorbide Mononitrate ER] 15 mg PO DAILY Discharge Medication List Atorvastatin [Lipitor] 40 mg PO DAILY 09/27/14 [History] Spironolactone [Aldactone] 25 mg PO DAILY 11/12/17 [History] Aspirin 81 mg PO DAILY #30 chew 04/07/18 [Rx] Clopidogrel [Plavix] 75 mg PO DAILY #30 tab 04/07/18 [Rx] Pantoprazole Sodium [Protonix] 40 mg PO DAILY 07/14/18 [History] Metoprolol Tartrate [Lopressor] 50 mg PO AC-TID 02/12/19 [History] rOPINIRole HCL [Requip] 1 mg PO HS 02/12/19 [History] Terazosin [Hytrin] 5 mg PO HS 02/28/19 [History] Allopurinol [Zyloprim] 100 mg PO DAILY 03/31/19 [History] Epoetin [place] [Procrit] 40,000 units IV WEEKLY 04/03/19 [History] Furosemide [Lasix] 40 mg PO BID #60 tab 04/04/19 [Rx] predniSONE 40 mg PO DAILY tab 04/04/19 [Rx] Follow up Appointment(s)/Referral(s): Leon Franklin MD [Primary Care Provider] - 1-2 days Leslie Kwan MD [STAFF PHYSICIAN] - 04/22/19 1:30 pm Hernandez Britton MD [STAFF PHYSICIAN] - 1 Week Activity/Diet/Wound Care/Special Instructions: [facility] will continue their services when you are discharged. For questions you can contact them at Follow-up with PCP within 1-2 days of discharge. Follow-up with cardiology within 1 week of discharge. Follow-up with GI with the appointment given to you. Take all medications as advised. Discharge Disposition: HOME SELF-CARE
[2019-04-04] MEDS ORDERED: FUROSEMIDE 40 MG TAB PO SCH (16:00)
--- NOTE | 2019-04-06 15:28 | PN ---
PROGRESS NOTE HISTORY: Patient was admitted with congestive cardiac failure. Patient has a history of myeloproliferative disorder with hepatosplenomegaly. He is comfortable, lying in the bed without any problem. There is no evidence of any orthopnea or PND. The pulmonary consultation is noted. There is a small amount of pleural fluid and it does not need to be drained. The patient does have hepatosplenomegaly. First and second heart sounds are normal. There is a diminished air entry on the right side. IMPRESSION: Acute on chronic diastolic heart failure, which is improved. PLAN: We will switch the patient to oral Lasix. The patient will follow up as an outpatient with Dr. Germán Pelayo. MMODL / IJN: [id number] /
== END 2019-04-04 15:50 | disposition home or self-care (01) | DRG 292 ==
LOC: EC 12:27 → 1SOBS 15:38 → OBSVTOIN 04-02 14:30
PROVIDERS: ADMIT Family Medicine; ATTEND Family Medicine
DX: I11.0 Hypertensive heart disease with heart failure (principal); C94.6 Myelodysplastic disease, not elsewhere classified; D75.81 Myelofibrosis; I50.43 Acute on chronic combined systolic (congestive) and diastolic (congestive) heart failure; T46.2X5A Adverse effect of other antidysrhythmic drugs, initial encounter; K22.711 Barrett's esophagus with high grade dysplasia; I25.10 Atherosclerotic heart disease of native coronary artery without angina pectoris; I48.91 Unspecified atrial fibrillation; R16.2 Hepatomegaly with splenomegaly, not elsewhere classified; I27.29 Other secondary pulmonary hypertension; N40.0 Benign prostatic hyperplasia without lower urinary tract symptoms; K22.2 Esophageal obstruction; E11.51 Type 2 diabetes mellitus with diabetic peripheral angiopathy without gangrene; E78.5 Hyperlipidemia, unspecified; K21.9 Gastro-esophageal reflux disease without esophagitis; M19.079 Primary osteoarthritis, unspecified ankle and foot; M10.9 Gout, unspecified; I25.2 Old myocardial infarction; Z95.1 Presence of aortocoronary bypass graft; Z95.5 Presence of coronary angioplasty implant and graft; Z90.49 Acquired absence of other specified parts of digestive tract; Z79.02 Long term (current) use of antithrombotics/antiplatelets; Z79.899 Other long term (current) drug therapy; Z79.82 Long term (current) use of aspirin; Z86.14 Personal history of Methicillin resistant Staphylococcus aureus infection; Z87.891 Personal history of nicotine dependence; Z82.49 Family history of ischemic heart disease and other diseases of the circulatory system; Z91.14 Patient's other noncompliance with medication regimen
CPT/HCPCS: 36415; 71045; 71046; 74018; 74176; 76604; 80048; 80053; 80061; 83605; 83690; 83735; 83880; 84484; 85025; 85027; 85610; 85730; 93005; 99285

== ENCOUNTER 2019-04-20 17:22 | Inpatient (IN) | payer MEDICARE ==
--- NOTE | 2019-04-20 17:35 | ED ---
General Adult HPI - General Stated complaint: CARMELITA Time Seen by Provider: 04/20/19 17:24 Source: patient, RN notes reviewed, old records reviewed Mode of arrival: EMS Limitations: no limitations - History of Present Illness Initial comments: Patient is a pleasant 79-year-old male presenting to the emergency Department with complaints of difficulty in breathing. Symptoms have progressed over the past several days. Patient denies history of similar symptoms previously. Patient states he does have a history of atrial fibrillation however does have history of previous problems with bleeding with anticoagulation. Patient states there has been some mild tightness in his chest. Patient states dyspnea is worse with exertion and lying flat. Patient denies any history of COPD or asthma or CHF. Patient does admit that his legs are little bit swollen. Patient states he has been having some diarrhea recently. - Related Data Home Medications Medication Instructions Recorded Confirmed Atorvastatin [Lipitor] 40 mg PO HS 09/27/14 04/20/19 Spironolactone [Aldactone] 25 mg PO BID 11/12/17 04/20/19 Pantoprazole Sodium [Protonix] 40 mg PO DAILY 07/14/18 04/20/19 Metoprolol Tartrate [Lopressor] 50 mg PO BID 02/12/19 04/20/19 rOPINIRole HCL [Requip] 1 mg PO HS 02/12/19 04/20/19 Terazosin [Hytrin] 5 mg PO HS 02/28/19 04/20/19 Allopurinol [Zyloprim] 100 mg PO DAILY 03/31/19 04/20/19 Epoetin Newton [Procrit] 40,000 units IV WEEKLY 04/03/19 04/20/19 Amiodarone [Cordarone] 200 mg PO HS 04/20/19 04/20/19 Furosemide [Lasix] 60 mg PO BID 04/20/19 04/20/19 Previous Rx's Medication Instructions Recorded Aspirin 81 mg PO DAILY #30 chew 04/07/18 Clopidogrel [Plavix] 75 mg PO DAILY #30 tab 04/07/18 predniSONE 40 mg PO DAILY tab 04/04/19 Allergies Allergy/AdvReac Type Severity Reaction Status Date / Time No Known Allergies Allergy Verified 04/20/19 18:04 Review of Systems ROS Statement: Those systems with pertinent positive or pertinent negative responses have been documented in the HPI. ROS Other: All systems not noted in ROS Statement are negative. Constitutional: Denies: fever Eyes: Denies: eye pain ENT: Denies: ear pain Respiratory: Reports: as per HPI, dyspnea. Denies: cough Cardiovascular: Reports: as per HPI, chest pain, palpitations Endocrine: Reports: fatigue Gastrointestinal: Reports: diarrhea. Denies: vomiting Genitourinary: Denies: dysuria Musculoskeletal: Denies: back pain Skin: Denies: rash Neurological: Denies: headache Past Medical History Past Medical History: Atrial Flutter, Blood Disorder, Coronary Artery Disease (CAD), Heart Failure, GERD/Reflux, GI Bleed, Hyperlipidemia, Hypertension, Myocardial Infarction (PR), Prostate Disorder, Vascular Disorder Additional Past Medical History / Comment(s): myeloproliferative disorder(leukocytosis and thrombocytosis), esophagitis, severe PAD, severe pulmonary hypertension , right-sided heart failure with severe pulmonary hypertension, BPH, Exercise intolerance Last Myocardial Infarction Date:: 2017 History of Any Multi-Drug Resistant Organisms: Acinetobacter (MDRO), MRSA Date of last positivie culture/infection: 05/12/18-MRSA MDRO Source:: Foot-MRSA Past Surgical History: Cholecystectomy, Coronary Bypass/CABG, Heart Catheterization, Hernia Repair Additional Past Surgical History / Comment(s): Cardiac catheterization on 10/04/2014, right femoral artery/common femoral artery endarterectomy. 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 tom inguinal hernia repair, coronary artery bypass surgery, EGD, colonoscopy. Cath with PCI to RCA 02/04/19 Past Anesthesia/Blood Transfusion Reactions: No Reported Reaction Past Psychological History: No Psychological Hx Reported Smoking Status: Former smoker Past Alcohol Use History: Rare Past Drug Use History: None Reported - Past Family History Brother(s) Family Medical History: Cancer Additional Family Medical History / Comment(s): 2 with lung and 1 with prostate Mother Family Medical History: Myocardial Infarction (PR) Father History Unknown: Yes Additional Family Medical History / Comment(s): AT AGE 83 FROM "HARDENING OF THE ARTERIES" General Exam General appearance: alert, in no apparent distress Head exam: Present: atraumatic Eye exam: Present: normal appearance, PERRL ENT exam: Present: normal oropharynx Neck exam: Present: normal inspection Respiratory exam: Present: decreased breath sounds (Right base) Cardiovascular Exam: Present: irregular rhythm GI/Abdominal exam: Present: soft. Absent: tenderness Extremities exam: Present: pedal edema (+1 bilateral). Absent: calf tenderness Neurological exam: Present: alert Psychiatric exam: Present: normal affect, normal mood Skin exam: Present: normal color Course Vital Signs 04/20/19 04/20/19 04/20/19 17:35 19:00 19:36 Temperature 98.4 F Pulse Rate 81 82 Respiratory 18 18 18 Rate Blood Pressure 115/75 141/82 O2 Sat by Pulse 95 97 Oximetry EKG Findings - EKG Comments: EKG Findings:: A. fib with rate of 76. QRS 98. QT 418. QTC 470. Right axis. Normal QRS. T wave inversion V3 through V6. Medical Decision Making - Medical Decision Making Patient states he has chronically elevated white blood cell count and anemia however is unclear why. Patient states he does see Dr. Robins and is monitored for this however has never been diagnosed with leukemia or lymphoma or anything along that lines. Patient is updated on results and plan. Some physician group has been paged covering for Dr. Franklin for admission. Cardiology and Dr. Robins will be placed on consult. - Lab Data Result diagrams: 04/20/19 17:47 04/20/19 17:47 Lab Results 04/20/19 04/20/19 04/20/19 Range/Units 17:47 17:47 17:47 WBC 53.6 H* (3.8-10.6) k/uL RBC 3.37 L (4.30-5.90) m/uL Hgb 9.4 L (13.0-17.5) gm/dL Hct 30.7 L (39.0-53.0) % MCV 91.2 (80.0-100.0) fL MCH 27.8 (25.0-35.0) pg MCHC 30.4 L (31.0-37.0) g/dL RDW 26.3 H (11.5-15.5) % Plt Count 377 (150-450) k/uL Neutrophils % (Manual) 82 % Band Neutrophils % 4 % Lymphocytes % (Manual) 1 % Monocytes % (Manual) 8 % Metamyelocytes % 2 % Myelocytes % 4 % Neutrophils # (Manual) 46.00 H (1.3-7.7) k/uL Lymphocytes # (Manual) 0.54 L (1.0-4.8) k/uL Monocytes # (Manual) 4.29 H (0-1.0) k/uL Metamyelocytes # (Man) 1.07 H (0) k/uL Myelocytes # (Manual) 2.14 H (0) k/uL Nucleated RBCs 1 H (0-0) /100 WBC Manual Slide Review Performed Toxic Granulation Present Toxic Vacuolation Present Large Platelets Present Polychromasia Present Hypochromasia Marked Poikilocytosis Marked Poikilocytosis (manual Present Anisocytosis Marked Microcytosis Slight Macrocytosis Slight Ovalocytes Present PT 14.1 H (9.0-12.0) sec INR 1.4 H (<1.2) APTT 26.7 (22.0-30.0) sec Sodium 133 L (137-145) mmol/L Potassium 4.0 (3.5-5.1) mmol/L Chloride 103 (98-107) mmol/L Carbon Dioxide 22 (22-30) mmol/L Anion Gap 8 mmol/L BUN 22 H (9-20) mg/dL Creatinine 0.78 (0.66-1.25) mg/dL Est GFR (CKD-EPI)AfAm >90 (>60 ml/min/1.73 sqM) Est GFR (CKD-EPI)NonAf 86 (>60 ml/min/1.73 sqM) Glucose 131 H (74-99) mg/dL Calcium 7.7 L (8.4-10.2) mg/dL Magnesium 1.9 (1.6-2.3) mg/dL Total Bilirubin 2.0 H (0.2-1.3) mg/dL AST 28 (17-59) U/L ALT 24 (21-72) U/L Alkaline Phosphatase 99 (38-126) U/L Creatine Kinase 48 L (55-170) U/L Troponin I (0.000-0.034) ng/mL NT-Pro-B Natriuret Pep pg/mL Total Protein 5.2 L (6.3-8.2) g/dL Albumin 2.9 L (3.5-5.0) g/dL 04/20/19 04/20/19 Range/Units 17:47 18:45 WBC (3.8-10.6) k/uL RBC (4.30-5.90) m/uL Hgb (13.0-17.5) gm/dL Hct (39.0-53.0) % MCV (80.0-100.0) fL MCH (25.0-35.0) pg MCHC (31.0-37.0) g/dL RDW (11.5-15.5) % Plt Count (150-450) k/uL Neutrophils % (Manual) % Band Neutrophils % % Lymphocytes % (Manual) % Monocytes % (Manual) % Metamyelocytes % % Myelocytes % % Neutrophils # (Manual) (1.3-7.7) k/uL Lymphocytes # (Manual) (1.0-4.8) k/uL Monocytes # (Manual) (0-1.0) k/uL Metamyelocytes # (Man) (0) k/uL Myelocytes # (Manual) (0) k/uL Nucleated RBCs (0-0) /100 WBC Manual Slide Review Toxic Granulation Toxic Vacuolation Large Platelets Polychromasia Hypochromasia Poikilocytosis Poikilocytosis (manual Anisocytosis Microcytosis Macrocytosis Ovalocytes PT (9.0-12.0) sec INR (<1.2) APTT (22.0-30.0) sec Sodium (137-145) mmol/L Potassium (3.5-5.1) mmol/L Chloride (98-107) mmol/L Carbon Dioxide (22-30) mmol/L Anion Gap mmol/L BUN (9-20) mg/dL Creatinine (0.66-1.25) mg/dL Est GFR (CKD-EPI)AfAm (>60 ml/min/1.73 sqM) Est GFR (CKD-EPI)NonAf (>60 ml/min/1.73 sqM) Glucose (74-99) mg/dL Calcium (8.4-10.2) mg/dL Magnesium (1.6-2.3) mg/dL Total Bilirubin (0.2-1.3) mg/dL AST (17-59) U/L ALT (21-72) U/L Alkaline Phosphatase (38-126) U/L Creatine Kinase (55-170) U/L Troponin I <0.012 (0.000-0.034) ng/mL NT-Pro-B Natriuret Pep 47325 pg/mL Total Protein (6.3-8.2) g/dL Albumin (3.5-5.0) g/dL - Radiology Data Radiology results: image reviewed (Chest x-ray concerning for CHF with bilateral pleural effusions.) Disposition Clinical Impression: CHF exacerbation Disposition: ADMITTED IP TO THIS HOSP Is patient prescribed a controlled substance at d/c from ED?: No Referrals: Leon Franklin MD [Primary Care Provider] - 1-2 days Decision Time: 20:15
[2019-04-20 18:04] LABS: Anisocytosis Marked; HCT 30.7 % (39.0-53.0); HGB 9.4 gm/dL (13.0-17.5); Hypochromasia Marked; MCH 27.8 pg (25.0-35.0); MCHC 30.4 g/dL (31.0-37.0); MCV 91.2 fL (80.0-100.0); Macrocytosis Slight; Mean Platelet Volume 10.4; Microcytosis Slight; Platelet Count 377 k/uL (150-450); Poikilocytosis Marked; RBC 3.37 m/uL (4.30-5.90)
[2019-04-20 18:06] LABS: RDW 26.3 % (11.5-15.5)
[2019-04-20 18:08] LABS: ALT 24 U/L (21-72); AST 28 U/L (17-59); African American GFR (CKD) >90 (>60 ml/min/1.73 sqM); Albumin 2.9 g/dL (3.5-5.0); Alkaline Phosphatase 99 U/L (38-126); Anion Gap 8 mmol/L; Blood Urea Nitrogen 22 mg/dL (9-20); Calcium 7.7 mg/dL (8.4-10.2); Carbon Dioxide 22 mmol/L (22-30); Chloride 103 mmol/L (98-107); Creatine Kinase 48 U/L (55-170); Glucose 131 mg/dL (74-99); Magnesium 1.9 mg/dL (1.6-2.3); Sodium 133 mmol/L (137-145); Total Protein 5.2 g/dL (6.3-8.2)
--- NOTE | 2019-04-20 18:17 | XR ---
EXAMINATION TYPE: XR chest 2V DATE OF EXAM: 04/20/2019 COMPARISON: 04/03/2019 HISTORY: Difficulty breathing TECHNIQUE: Frontal and lateral views of the chest are obtained. FINDINGS: There is pulmonary vascular congestion. There are sternal wires. Thoracic aorta is atherom atous. There is blunting of costophrenic angles. IMPRESSION: Congestive heart failure with pleural effusions slightly worse than last exam.
[2019-04-20 18:32] LABS: Band Neutrophils % 4 %; Lymphocytes # (M) 0.54 k/uL (1.0-4.8); Metamyelocytes % 2 %; Myelocytes % 4 %; Neutrophils % (M) 82 %; Nucleated Red Blood Cells 1 /100 WBC (0-0); Total Cells Counted 200
[2019-04-20 18:33] LABS: Large Platelets Present; Metamyelocytes # (M) 1.07 k/uL (0); Monocytes # (M) 4.29 k/uL (0-1.0); Myelocytes # (M) 2.14 k/uL (0); Poikilocytosis (M) Present; Polychromasia Present; Toxic Vacuolation Present; WBC 53.6 k/uL (3.8-10.6)
[2019-04-20 18:34] LABS: Ovalocytes Present; Toxic Granulation Present
[2019-04-20 18:44] LABS: INR 1.4 (<1.2); Partial Thromboplastin Time 26.7 sec (22.0-30.0); Prothrombin Time 14.1 sec (9.0-12.0)
[2019-04-20] MEDS ORDERED: ASPIRIN 325 MG TAB PO STA (20:21)
[2019-04-20] MEDS: FUROSEMIDE 10 MG/ML 4 ML VIAL IV SCH (22:39)
--- NOTE | 2019-04-21 02:04 | P.HPIM ---
History of Present Illness H&P Date: 04/21/19 Patient is 79-year-old male with a PMH of atrial fibrillation (previously on Xarelto, DC'd due to GI bleeding), myeloproliferative disease, coronary artery disease, peripheral artery disease, diastolic CHF, hyperlipidemia, and hypertension who presented to the ED for gradually worsening short of breath. Of note, the patient was recently admitted for chest pain and shortness of breath and was noted to have a pleural effusion for which pulmonary was consulted and recommended no thoracentesis in light of the small size of the effusion. The patient notes that his excess tolerance is gradually worsening and now he gets winded even with turning in bed. He endorsed some chest tightness and pressure but otherwise denied fevers, chills, nausea, vomiting, or abdominal pain. Further denied orthopnea, PND, or palpitations. The patient underwent an extensive evaluation in the emergency room with an EKG showing atrial fibrillation is 76 beats per minutes with PVCs and T-wave inversion V3 to V6. Chest x-ray revealed CHF with pleural effusions. Laboratory evaluation revealed a BNP of 11,000, leukocytosis of 53.6, hemoglobin 9.4, troponin less than 0.012, creatinine 0.78, and calcium 7.7. The patient is being admitted to the medicine service for further management of diastolic CHF exacerbation. Review of Systems Pertinent positives and negatives as discussed in HPI, a complete review of systems was performed and all other systems are negative. Past Medical History Past Medical History: Atrial Flutter, Blood Disorder, Coronary Artery Disease (CAD), Heart Failure, GERD/Reflux, GI Bleed, Hyperlipidemia, Hypertension, Myocardial Infarction ([place]), Prostate Disorder, Vascular Disorder Additional Past Medical History / Comment(s): myeloproliferative disorder(leukocytosis and thrombocytosis), esophagitis, severe PAD, severe pulmonary hypertension , right-sided heart failure with severe pulmonary hypertension, BPH, Exercise intolerance Last Myocardial Infarction Date:: 2017 History of Any Multi-Drug Resistant Organisms: Acinetobacter (MDRO), MRSA Date of last positivie culture/infection: 05/12/18-MRSA MDRO Source:: Foot-MRSA Past Surgical History: Cholecystectomy, Coronary Bypass/CABG, Heart Catheterization, Hernia Repair Additional Past Surgical History / Comment(s): Cardiac catheterization on 10/04/2014, right femoral artery/common femoral artery endarterectomy. 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 tom inguinal hernia repair, coronary artery bypass surgery, EGD, colonoscopy. Cath with PCI to RCA 02/04/19 Past Anesthesia/Blood Transfusion Reactions: No Reported Reaction Past Psychological History: No Psychological Hx Reported Additional Psychological History / Comment(s): . . Smoking Status: Former smoker Past Alcohol Use History: Rare Additional Past Alcohol Use History / Comment(s): STARTED SMOKING AT AGE 16 QUIT AT AGE 40 SMOKED 1 1/2 PPD Past Drug Use History: None Reported - Past Family History Brother(s) Family Medical History: Cancer Additional Family Medical History / Comment(s): 2 with lung and 1 with prostate Mother Family Medical History: Myocardial Infarction ([place]) Father History Unknown: Yes Additional Family Medical History / Comment(s): AT AGE 83 FROM "HARDENING OF THE ARTERIES" Medications and Allergies Home Medications Medication Instructions Recorded Confirmed Type Atorvastatin [Lipitor] 40 mg PO HS 09/27/14 04/20/19 History Spironolactone [Aldactone] 25 mg PO BID 11/12/17 04/20/19 History Aspirin 81 mg PO DAILY #30 chew 04/07/18 04/20/19 Rx Clopidogrel [Plavix] 75 mg PO DAILY #30 tab 04/07/18 04/20/19 Rx Pantoprazole Sodium [Protonix] 40 mg PO DAILY 07/14/18 04/20/19 History Metoprolol Tartrate [Lopressor] 50 mg PO BID 02/12/19 04/20/19 History rOPINIRole HCL [Requip] 1 mg PO HS 02/12/19 04/20/19 History Terazosin [Hytrin] 5 mg PO HS 02/28/19 04/20/19 History Allopurinol [Zyloprim] 100 mg PO DAILY 03/31/19 04/20/19 History Epoetin Newton [Procrit] 40,000 units IV WEEKLY 04/03/19 04/20/19 History predniSONE 40 mg PO DAILY tab 04/04/19 04/20/19 Rx Amiodarone [Cordarone] 200 mg PO HS 04/20/19 04/20/19 History Furosemide [Lasix] 60 mg PO BID 04/20/19 04/20/19 History Allergies Allergy/AdvReac Type Severity Reaction Status Date / Time No Known Allergies Allergy Verified 04/20/19 18:04 Physical Exam Vitals: Vital Signs Temp Pulse Pulse Resp BP BP Pulse Ox 04/20/19 21:15 97.8 F 72 18 126/59 92 L 04/20/19 20:40 98.0 F 81 19 127/64 96 04/20/19 20:31 97.8 F 72 20 126/59 92 L 04/20/19 19:36 18 04/20/19 19:00 82 18 141/82 97 04/20/19 17:35 98.4 F 81 18 115/75 95 Intake and Output 04/20/19 04/20/19 04/21/19 14:59 22:59 06:59 Output Total 300 Balance -300 Output: Urine 300 Other: Voiding Method Toilet Bedside Commode Urinal # Voids 1 Weight 83.4 kg General: non toxic, no distress, appears at stated age, overweight Derm: no unusual rashes/lesions no unusual ecchymoses, warm, dry Head: atraumatic, normocephalic, symmetric Eyes: EOMI, no lid lag, anicteric sclera, pupils equal round reactive to light ENT: Nose and ears atraumatic, no thrush, no pharyngeal erythema Neck: No thyromegaly, no cervical lymphadenopathy, trachea midline, supple Mouth: no lip lesion, mucus membranes moist Cardiovascular: S1S2 reg, no murmur, positive posterior tibial pulse bilateral, no edema, capillary refill less than 2 seconds Lungs: Bibasilar mild rales, no rhonchi or coarse breath sounds, no wheezing, no accessory muscle use Abdominal: soft, nontender to palpation, no guarding, no appreciable organomegaly, normal bowel sounds Ext: no gross muscle atrophy, muscle strength 5 out of 5 in all 4 extremities grossly, no contractures, Neuro: CN II-XI grossly intact, light touch intact all 4 extremities, finger to nose within normal limits, Psych: Alert, oriented, appropriate affect Results CBC & Chem 7: 04/20/19 17:47 04/20/19 17:47 Labs: Abnormal Lab Results - Last 24 Hours (Table) 04/20/19 04/20/19 04/20/19 Range/Units 17:47 17:47 17:47 WBC 53.6 H* (3.8-10.6) k/uL RBC 3.37 L (4.30-5.90) m/uL Hgb 9.4 L (13.0-17.5) gm/dL Hct 30.7 L (39.0-53.0) % MCHC 30.4 L (31.0-37.0) g/dL RDW 26.3 H (11.5-15.5) % Neutrophils # (Manual) 46.00 H (1.3-7.7) k/uL Lymphocytes # (Manual) 0.54 L (1.0-4.8) k/uL Monocytes # (Manual) 4.29 H (0-1.0) k/uL Metamyelocytes # (Man) 1.07 H (0) k/uL Myelocytes # (Manual) 2.14 H (0) k/uL Nucleated RBCs 1 H (0-0) /100 WBC PT 14.1 H (9.0-12.0) sec INR 1.4 H (<1.2) Sodium 133 L (137-145) mmol/L BUN 22 H (9-20) mg/dL Glucose 131 H (74-99) mg/dL Calcium 7.7 L (8.4-10.2) mg/dL Total Bilirubin 2.0 H (0.2-1.3) mg/dL Creatine Kinase 48 L (55-170) U/L Total Protein 5.2 L (6.3-8.2) g/dL Albumin 2.9 L (3.5-5.0) g/dL Thrombosis Risk Factor Assmnt - Choose All That Apply Each Risk Factor Represents 3 Points: Age 75 years or older Thrombosis Risk Factor Assessment Total Risk Factor Score: 3 Thrombosis Risk Factor Assessment Level: Moderate Risk Assessment and Plan Plan: Acute on chronic diastolic CHF -Continue with Lasix 40 mg IV every 8 hourly -Intake and output -Fluid restriction -Cardiology consult -Cardiac monitoring Atrial fibrillation -Continue with home meds of aspirin and Plavix -Not on anticoagulation due to GI bleeding Leukocytosis and anemia, in setting of myeloproliferative disease -Monitor CBC -Patient follows an outpatient with hematology Hypocalcemia -Monitor for now DVT prophylaxis -Heparin The patient is admitted with an anticipated greater than 2 midnight stay for ev aluation of acute diastolic CHF exacerbation. CODE STATUS:Full Code Discussed with: Patient Anticipated discharge date: 04/23/[address]: Home A total of 45 minutes was spent on the care of this complex patient more than 50% of the time was spent in counseling and care coordination.
[2019-04-21] MEDS: NITROGLYCERIN OINT 1 INCH/GM PACKET TOPICAL SCH ×5 (02:11→21:10)
[2019-04-21] MEDS: FUROSEMIDE 10 MG/ML 4 ML VIAL IV SCH ×3 (06:44→21:10)
[2019-04-21] MEDS: PANTOPRAZOLE 40 MG TABLET PO SCH (06:46)
[2019-04-21] MEDS ORDERED: SPIRONOLACTONE 25 MG TAB PO SCH (09:00)
[2019-04-21] MEDS: ALLOPURINOL 100 MG TAB PO SCH (09:29)
[2019-04-21] MEDS: METOPROLOL TARTRATE 50 MG TAB PO SCH ×2 (09:29→21:10)
[2019-04-21] MEDS: ASPIRIN 81 MG PO SCH (09:29)
[2019-04-21] MEDS: CLOPIDOGREL 75 MG TAB PO SCH (09:30)
[2019-04-21] MEDS: predniSONE 20 MG TAB PO SCH (09:30)
[2019-04-21 11:59] VITALS: BMI 27.6
--- NOTE | 2019-04-21 12:10 | P.CRDCN ---
History of Present Illness Consult date: 04/21/19 Chief complaint: Difficulty breathing History of present illness: This is another admission for this 79-year-old gentleman who just was discharged from the hospital a few weeks ago when he was admitted to the observation unit with difficulty breathing and was diagnosed was congestive heart failure secondary to diastole dysfunction and at that point he was found to have pleural effusion. The patient does have an extensive past medical history consistent of chronic atrial fibrillation not on oral anticoagulation due to GI bleeding, coronary artery disease and prior coronary revascularization, peripheral arterial disease and prior peripheral revascularization, history of myelofibrosis currently under the care of manager behavioral, as well as chronic anemia. This time, and for the last few days, he has been experiencing increasing in the shortness of breath, the patient stated that the shortness of breath has progressed significantly and quickly where he decided to come to the emergency room. Beside that he stated that he did have also increasing in the lower extremities edema. Denies any symptoms of chest pain or chest discomfort. No dizziness or lightheadedness. No syncope. The chest x-ray this admission revealed finding consistent with CHF and bilateral pleural effusion. The BNP came in to be at 11,000. The EKG showed atrial fibrillation was controlled heart rate. The hemoglobin was 9.4, the creatinine was 0.78. The patient immediately was admitted to the hospital and started on IV Lasix. Recent echocardiogram from February 2019 revealed normal LV function was moderate MR, moderate TR, and severe pulmonary hypertension area the patient stated that currently he is in process of going to [facility] to undergo the watchman device. The patient stated that he was taking all his medications at home including to oral diuretics. Past Medical History Past Medical History: Atrial Flutter, Blood Disorder, Coronary Artery Disease (CAD), Heart Failure, GERD/Reflux, GI Bleed, Hyperlipidemia, Hypertension, Myocardial Infarction ([place]), Prostate Disorder, Vascular Disorder Additional Past Medical History / Comment(s): myeloproliferative disorder(l eukocytosis and thrombocytosis), esophagitis, severe PAD, severe pulmonary hypertension , right-sided heart failure with severe pulmonary hypertension, BPH, Exercise intolerance Last Myocardial Infarction Date:: 2017 History of Any Multi-Drug Resistant Organisms: Acinetobacter (MDRO), MRSA Date of last positivie culture/infection: 05/12/18-MRSA MDRO Source:: Foot-MRSA Past Surgical History: Cholecystectomy, Coronary Bypass/CABG, Heart Catheterization, Hernia Repair Additional Past Surgical History / Comment(s): Cardiac catheterization on 10/04/2014, right femoral artery/common femoral artery endarterectomy. 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 tom inguinal hernia repair, coronary artery bypass surgery, EGD, colonoscopy. Cath with PCI to RCA 02/04/19 Past Anesthesia/Blood Transfusion Reactions: No Reported Reaction Past Psychological History: No Psychological Hx Reported Additional Psychological History / Comment(s): . . Smoking Status: Former smoker Past Alcohol Use History: Rare Additional Past Alcohol Use History / Comment(s): STARTED SMOKING AT AGE 16 QUIT AT AGE 40 SMOKED 1 1/2 PPD Past Drug Use History: None Reported - Past Family History Brother(s) Family Medical History: Cancer Additional Family Medical History / Comment(s): 2 with lung and 1 with prostate Mother Family Medical History: Myocardial Infarction ([place]) Father History Unknown: Yes Additional Family Medical History / Comment(s): AT AGE 83 FROM "HARDENING OF THE ARTERIES" Medications and Allergies Home Medications Medication Instructions Recorded Confirmed Type Atorvastatin [Lipitor] 40 mg PO HS 09/27/14 04/20/19 History Spironolactone [Aldactone] 25 mg PO BID 11/12/17 04/20/19 History Aspirin 81 mg PO DAILY #30 chew 04/07/18 04/20/19 Rx Clopidogrel [Plavix] 75 mg PO DAILY #30 tab 04/07/18 04/20/19 Rx Pantoprazole Sodium [Protonix] 40 mg PO DAILY 07/14/18 04/20/19 History Metoprolol Tartrate [Lopressor] 50 mg PO BID 02/12/19 04/20/19 History rOPINIRole HCL [Requip] 1 mg PO HS 02/12/19 04/20/19 History Terazosin [Hytrin] 5 mg PO HS 02/28/19 04/20/19 History Allopurinol [Zyloprim] 100 mg PO DAILY 03/31/19 04/20/19 History Epoetin Newton [Procrit] 40,000 units IV WEEKLY 04/03/19 04/20/19 History predniSONE 40 mg PO DAILY tab 06/01/19 06/17/19 Rx Amiodarone [Cordarone] 200 mg PO HS 04/20/19 04/20/19 History Furosemide [Lasix] 60 mg PO BID 04/20/19 04/20/19 History Allergies Allergy/AdvReac Type Severity Reaction Status Date / Time No Known Allergies Allergy Verified 04/20/19 18:04 Physical Exam Vitals: Vital Signs Temp Pulse Pulse Resp BP BP Pulse Ox 04/21/19 08:00 97.8 F 80 22 137/64 95 04/21/19 04:00 97.6 F 80 20 127/62 90 L 04/21/19 00:00 97.0 F L 89 18 98/48 93 L 04/20/19 21:15 97.8 F 72 18 126/59 92 L 04/20/19 20:40 98.0 F 81 19 127/64 96 04/20/19 20:31 97.8 F 72 20 126/59 92 L 04/20/19 19:36 18 04/20/19 19:00 82 18 141/82 97 04/20/19 17:35 98.4 F 81 18 115/75 95 Intake and Output 04/20/19 04/21/19 04/21/19 22:59 06:59 14:59 Intake Total 118 Output Total 1000 400 Balance -1000 -282 Intake: Oral 118 Output: Urine 1000 400 Other: Voiding Method Toilet Toilet Toilet Bedside Commode Bedside Commode Bedside Commode Urinal Urinal Urinal # Voids 1 1 Weight 83.4 kg 80 kg 80 kg - Constitutional General appearance: no acute distress - Respiratory Respiratory: bilateral: diminished - Cardiovascular Rhythm: irregularly irregular Heart sounds: normal: S1, S2 Results 04/20/19 17:47 04/20/19 17:47 Cardiac Enzymes 04/20/19 04/20/19 Range/Units 17:47 17:47 AST 28 (17-59) U/L Troponin I <0.012 (0.000-0.034) ng/mL Coagulation 04/20/19 Range/Units 17:47 PT 14.1 H (9.0-12.0) sec APTT 26.7 (22.0-30.0) sec CBC 04/20/19 Range/Units 17:47 WBC 53.6 H* (3.8-10.6) k/uL RBC 3.37 L (4.30-5.90) m/uL Hgb 9.4 L (13.0-17.5) gm/dL Hct 30.7 L (39.0-53.0) % Plt Count 377 (150-450) k/uL Comprehensive Metabolic Panel 04/20/19 Range/Units 17:47 Sodium 133 L (137-145) mmol/L Potassium 4.0 (3.5-5.1) mmol/L Chloride 103 (98-107) mmol/L Carbon Dioxide 22 (22-30) mmol/L BUN 22 H (9-20) mg/dL Creatinine 0.78 (0.66-1.25) mg/dL Glucose 131 H (74-99) mg/dL Calcium 7.7 L (8.4-10.2) mg/dL AST 28 (17-59) U/L ALT 24 (21-72) U/L Alkaline Phosphatase 99 (38-126) U/L Total Protein 5.2 L (6.3-8.2) g/dL Albumin 2.9 L (3.5-5.0) g/dL Current Medications Generic Name Dose Route Start Last Admin Trade Name Freq PRN Reason Stop Dose Admin Allopurinol 100 mg 04/21/19 09:00 04/21/19 09:29 Zyloprim PO 100 mg DAILY [facility] Administration Amiodarone HCl 200 mg 04/21/19 21:00 Cordarone PO HS JOSE Aspirin 81 mg 04/21/19 09:00 04/21/19 09:29 Aspirin PO 81 mg DAILY JOSE Administration Atorvastatin Calcium 40 mg 04/21/19 21:00 Lipitor PO HS JOSE Clopidogrel Bisulfate 75 mg 04/21/19 09:00 04/21/19 09:30 Plavix PO 75 mg DAILY [facility] Administration Doxazosin Mesylate 4 mg 04/21/19 21:00 Cardura PO HS JOSE Furosemide 40 mg 04/20/19 21:00 04/21/19 06:44 Lasix IV Not Given Q8H [facility] Metoprolol Tartrate 50 mg 04/21/19 09:00 04/21/19 09:29 Lopressor PO 50 mg BID JOSE Administration Nitroglycerin 1 inch 04/20/19 22:00 04/21/19 09:30 Nitro-Bid Oint TOPICAL 1 inch QID [facility] Administration Epoetin Newton 40,000 40,000 units 04/21/19 09:00 04/21/19 10:44 Units IV Not Given WEEKLY JOSE Pantoprazole Sodium 40 mg 04/21/19 07:30 04/21/19 06:46 Protonix PO 40 mg DAILY@0730 JOSE Administration Prednisone 40 mg 04/21/19 09:00 04/21/19 09:30 PO 40 mg DAILY JOSE Administration Ropinirole HCl 1 mg 04/21/19 01:51 04/21/19 02:06 Requip PO 1 mg HS JOSE Administration Sodium Chloride 10 ml 04/20/19 21:00 04/21/19 09:30 Saline Flush IV 10 ml BID JOSE Administration Intake and Output 04/20/19 04/21/19 04/21/19 22:59 06:59 14:59 Intake Total 118 Output Total 1000 400 Balance -1000 -282 Intake: Oral 118 Output: Urine 1000 400 Other: Voiding Method Toilet Toilet Toilet Bedside Commode Bedside Commode Bedside Commode Urinal Urinal Urinal # Voids 1 1 Weight 83.4 kg 80 kg 80 kg Patient Weight 04/22/19 06:59 Weight 80 kg 04/20/19 17:47 04/20/19 17:47 Assessment and Plan Assessment: Assessment #1 congestive heart failure exacerbation secondary to diastole dysfunction, acute on chronic #2 bilateral pleural effusion #3 chronic atrial fibrillation not on oral anticoagulation #4 coronary artery disease #5 peripheral arterial disease #6 chronic anemia #7 myelofibrosis #8 multiple comorbid conditions Plan #1 continue the IV Lasix for now. #2 possible ultrasound of the chest to assess the amount of pleural effusion #3 continue monitor the kidney function and electrolytes #4 no need to repeat the echocardiogram in view of recent echo #5 follow-up with the patient Thank you for allowing us participate in his care
--- NOTE | 2019-04-21 14:13 | P.PN ---
Progress Note - Text Progress Note Date: 04/21/19 79-year-old male with PMH of atrial fibrillation previously on Xarelto, discontinued due to GI bleed, myeloproliferative disease, CAD, PAD, diastolic CHF, hyperlipidemia and hypertension presents the ED for worsening shortness of breath or lower extremity edema. BNP found to be 11,000, admitted for CHF exacerbation with cardiology on consult. Patient was seen and examined. No acute events overnight. Patient reports slight improvement in his breathing since admission. He continues to complain of shortness of breath especially with exertion. Also complains of lower extremity edema that has been worsening since his previous discharge. He denies any chest pain or palpitations. No nausea or vomiting. No fever or chills. States that he has an appointment for IVC filter and cardioversion done at [facility]. General: [non toxic], [no distress], [labored breathing] Cardiovascular: [S1S2 reg], [no murmur], [positive DP pulse bilateral] Lungs: [Decreased breath sounds bilaterally with crackles in the bases], [no rhonchi, no rales] , [no accessory muscle use] Ext: [no gross muscle atrophy], [2+ lower extremity pitting edema], [no contractures] Psych: [Alert], [oriented], [appropriate affect] Patient's clinical presentation is suggestive of acute on chronic diastolic CHF exacerbation. Continue diuresis with Lasix 40 mg IV 3 times a day. Will restart his home medications. Will follow cardiology recommendations.
--- NOTE | 2019-04-21 16:38 | P.CONS ---
History of Present Illness - Reason for Consult Consult date: 04/21/19 Myelofibrosis Requesting physician: Terence Dickens - Chief Complaint SOB, BLE swelling, chest pain - History of Present Illness Mr. Burk is a very pleasant 79-year-old male pt of Dr. Miller very well known to us. Seen initially on consult in Nov 2017 when he was admitted for congestive heart failure. He was found to be anemic, elevated WBCs in the 30- 40,000 range, and thrombocytopenic. 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 Treated initially with Jakafi and erythropoietin supplementation. Jakafi was discontinued due to poor tolerance, he has continued on Procrit 40K Q week, maintaining a hemoglobin in the 8-1/2-9-1/2 range. Patient had a GI bleed earlier this year well on Xarelto, aspirin and Plavix. He has been admitted at least twice for congestive heart failure, he is admitted for the same at this time. Patient was having progressive shortness of breath, associated with chest pain and "squeezing" of the heart. Since admission the swelling in his legs is decreased, his respiratory status has improved. Patient is due for his erythropoietin supplementation. His labs today show a WBC of 9.4, platelet count of 377,000, WBC is 53.6, neutrophilic left shift. Review of Systems 14 point review of systems is negative except as stated in HPI Past Medical History Past Medical History: Atrial Flutter, Blood Disorder, Coronary Artery Disease (CAD), Heart Failure, GERD/Reflux, GI Bleed, Hyperlipidemia, Hypertension, Myocardial Infarction ([place]), Prostate Disorder, Vascular Disorder Additional Past Medical History / Comment(s): myeloproliferative disorder(leukocytosis and thrombocytosis), esophagitis, severe PAD, severe pulmonary hypertension , right-sided heart failure with severe pulmonary hypertension, BPH, Exercise intolerance Last Myocardial Infarction Date:: 2017 History of Any Multi-Drug Resistant Organisms: Acinetobacter (MDRO), MRSA Year Discovered:: 05/12/18-MRSA MDRO Source:: Foot-MRSA Past Surgical History: Cholecystectomy, Coronary Bypass/CABG, Heart Catheteri zation, Hernia Repair Additional Past Surgical History / Comment(s): Cardiac catheterization on 10/04/2014, right femoral artery/common femoral artery endarterectomy. arthrect yesenia/balloon angioplasty of right superficial femoral artery on 04/02/2018, 04/04/18 rt groin exploration of rt groin femoral artey pseudoanuerysm. tom inguinal hernia repair, coronary artery bypass surgery, EGD, colonoscopy. Cath with PCI to RCA 02/04/19 Past Anesthesia/Blood Transfusion Reactions: No Reported Reaction Past Psychological History: No Psychological Hx Reported Additional Psychological History / Comment(s): . . Smoking Status: Former smoker Past Alcohol Use History: Rare Additional Past Alcohol Use History / Comment(s): STARTED SMOKING AT AGE 16 QUIT AT AGE 40 SMOKED 1 1/2 PPD Past Drug Use History: None Reported - Past Family History Brother(s) Family Medical History: Cancer Additional Family Medical History / Comment(s): 2 with lung and 1 with prostate Mother Family Medical History: Myocardial Infarction ([place]) Father History Unknown: Yes Additional Family Medical History / Comment(s): AT AGE 83 FROM "HARDENING OF THE ARTERIES" Medications and Allergies Home Medications Medication Instructions Recorded Confirmed Type Atorvastatin [Lipitor] 40 mg PO HS 09/27/14 04/20/19 History Spironolactone [Aldactone] 25 mg PO BID 11/12/17 04/20/19 History Aspirin 81 mg PO DAILY #30 chew 04/07/18 04/20/19 Rx Clopidogrel [Plavix] 75 mg PO DAILY #30 tab 04/07/18 04/20/19 Rx Pantoprazole Sodium [Protonix] 40 mg PO DAILY 07/14/18 04/20/19 History Metoprolol Tartrate [Lopressor] 50 mg PO BID 02/12/19 04/20/19 History rOPINIRole HCL [Requip] 1 mg PO HS 02/12/19 04/20/19 History Terazosin [Hytrin] 5 mg PO HS 02/28/19 04/20/19 History Allopurinol [Zyloprim] 100 mg PO DAILY 03/31/19 04/20/19 History Epoetin Newton [Procrit] 40,000 units IV WEEKLY 04/03/19 04/20/19 History predniSONE 40 mg PO DAILY tab 04/04/19 04/20/19 Rx Amiodarone [Cordarone] 200 mg PO HS 04/20/19 04/20/19 History Furosemide [Lasix] 60 mg PO BID 04/20/19 04/20/19 History Allergies Allergy/AdvReac Type Severity Reaction Status Date / Time No Known Allergies Allergy Verified 04/20/19 18:04 Physical Exam Vitals: Vital Signs Temp Pulse Pulse Resp BP BP Pulse Ox 04/21/19 12:00 97.9 F 72 20 136/67 93 L 04/21/19 08:00 97.8 F 80 22 137/64 95 04/21/19 04:00 97.6 F 80 20 127/62 90 L 04/21/19 00:00 97.0 F L 89 18 98/48 93 L 04/20/19 21:15 97.8 F 72 18 126/59 92 L 04/20/19 20:40 98.0 F 81 19 127/64 96 04/20/19 20:31 97.8 F 72 20 126/59 92 L 04/20/19 19:36 18 04/20/19 19:00 82 18 141/82 97 04/20/19 17:35 98.4 F 81 18 115/75 95 Intake and Output 04/21/19 04/21/19 04/21/19 06:59 14:59 22:59 Intake Total 118 Output Total 1000 400 Balance -1000 -282 Intake: Oral 118 Output: Urine 1000 400 Other: Voiding Method Toilet Toilet Bedside Commode Bedside Commode Urinal Urinal # Voids 1 Weight 80 kg 80 kg - Constitutional General appearance: average body habitus, cooperative, no acute distress - EENT Eyes: anicteric sclerae, EOMI ENT: hearing grossly normal, normal oropharynx - Neck Neck: no lymphadenopathy - Respiratory Respiratory: bilateral: CTA - Cardiovascular Rhythm: irregularly irregular Heart sounds: normal: S1, S2 Abnormal Heart Sounds: systolic murmur leg Peripheral Edema: right: 1+, left: 2+, Pitting - Gastrointestinal General gastrointestinal: no absent bowel sounds, no decreased bowel sounds, no distended, no hepatomegaly, no hyperactive bowel sounds, normal bowel sounds, no organomegaly, no rigid, no scaphoid, soft, no splenomegaly, no tenderness, no umbilical hernia, no ventral hernia - Integumentary Integumentary: pale - Neurologic Neurologic: CNII-XII intact - Musculoskeletal Musculoskeletal: generalized weakness, strength equal bilaterally - Psychiatric Psychiatric: A&O x's 3, appropriate affect, intact judgment & insight Results CBC & Chem 7: 04/20/19 17:47 04/20/19 17:47 Labs: Abnormal Lab Results - Last 24 Hours (Table) 04/20/19 04/20/19 04/20/19 Range/Units 17:47 17:47 17:47 WBC 53.6 H* (3.8-10.6) k/uL RBC 3.37 L (4.30-5.90) m/uL Hgb 9.4 L (13.0-17.5) gm/dL Hct 30.7 L (39.0-53.0) % MCHC 30.4 L (31.0-37.0) g/dL RDW 26.3 H (11.5-15.5) % Neutrophils # (Manual) 46.00 H (1.3-7.7) k/uL Lymphocytes # (Manual) 0.54 L (1.0-4.8) k/uL Monocytes # (Manual) 4.29 H (0-1.0) k/uL Metamyelocytes # (Man) 1.07 H (0) k/uL Myelocytes # (Manual) 2.14 H (0) k/uL Nucleated RBCs 1 H (0-0) /100 WBC PT 14.1 H (9.0-12.0) sec INR 1.4 H (<1.2) Sodium 133 L (137-145) mmol/L BUN 22 H (9-20) mg/dL Glucose 131 H (74-99) mg/dL Calcium 7.7 L (8.4-10.2) mg/dL Total Bilirubin 2.0 H (0.2-1.3) mg/dL Creatine Kinase 48 L (55-170) U/L Total Protein 5.2 L (6.3-8.2) g/dL Albumin 2.9 L (3.5-5.0) g/dL Assessment and Plan (1) CHF exacerbation Narrative/Plan: Improving with treatment of the same. Patient does have a follow-up appointment with a neuroscientist out of [facility] for cardiac procedure in the near future. Current Visit: Yes Status: Acute Priority: High Code(s): I50.9 - HEART FAILURE, UNSPECIFIED SNOMED Code(s): 003112716 (2) JAK2 gene mutation Current Visit: No Status: Chronic Priority: Medium Code(s): Z15.89 - GENETIC SUSCEPTIBILITY TO OTHER DISEASE SNOMED Code(s): 32103749 (3) Myelofibrosis Current Visit: Yes Status: Chronic Priority: Medium Code(s): D75.81 - MYELOFIBROSIS SNOMED Code(s): 47024583 (4) Anemia Narrative/Plan: Patient receives erythropoietin supplementation, this can be administered while he is inpatient. This will be ordered tomorrow. Patient hemoglobin is not requiring intervention at this time, 9.4. We'll repeat iron studies Current Visit: Yes Status: Chronic Priority: Medium Code(s): D64.9 - ANEMIA, UNSPECIFIED SNOMED Code(s): 285482679 (5) Leukocytosis Narrative/Plan: Patient's white blood count count is 53.6, he tends to run in the 30-40 range, mostly neutrophiles, no acute intervention. Likely exacerbated due to acute congestive heart failure. Current Visit: Yes Status: Chronic Priority: Medium Code(s): D72.829 - ELEVATED WHITE BLOOD CELL COUNT, UNSPECIFIED SNOMED Code(s): 732872593
[2019-04-21] MEDS ORDERED: ASPIRIN 325 MG TAB PO SCH (20:22)
[2019-04-21] MEDS: DOXAZOSIN 4 MG TAB PO SCH (21:10)
[2019-04-21] MEDS: ATORVASTATIN 40 MG TAB PO SCH (21:10)
[2019-04-21] MEDS: AMIODARONE 200 MG TAB PO SCH (21:10)
[2019-04-22] MEDS ORDERED: ALPRAZolam 0.5 MG TAB PO STA (02:23)
[2019-04-22] MEDS: PANTOPRAZOLE 40 MG TABLET PO SCH (06:12)
[2019-04-22] MEDS: FUROSEMIDE 10 MG/ML 4 ML VIAL IV SCH ×3 (06:12→20:28)
[2019-04-22 08:28] LABS: Anisocytosis Marked; HCT 33.1 % (39.0-53.0); HGB 9.7 gm/dL (13.0-17.5); Hypochromasia Marked; MCH 27.2 pg (25.0-35.0); MCHC 29.2 g/dL (31.0-37.0); MCV 93.4 fL (80.0-100.0); Macrocytosis Moderate; Mean Platelet Volume 10.7; Microcytosis Slight; Platelet Count 453 k/uL (150-450); Poikilocytosis Marked; RBC 3.54 m/uL (4.30-5.90)
[2019-04-22 08:30] LABS: RDW 26.1 % (11.5-15.5)
[2019-04-22 08:32] LABS: African American GFR (CKD) >90 (>60 ml/min/1.73 sqM); Anion Gap 6 mmol/L; Blood Urea Nitrogen 25 mg/dL (9-20); Carbon Dioxide 27 mmol/L (22-30); Chloride 103 mmol/L (98-107); Glucose 123 mg/dL (74-99); Potassium 3.5 mmol/L (3.5-5.1); Sodium 136 mmol/L (137-145)
[2019-04-22] MEDS: CLOPIDOGREL 75 MG TAB PO SCH (09:52)
[2019-04-22] MEDS: ASPIRIN 81 MG PO SCH (09:52)
[2019-04-22] MEDS: NITROGLYCERIN OINT 1 INCH/GM PACKET TOPICAL SCH ×4 (09:52→20:28)
[2019-04-22] MEDS: predniSONE 20 MG TAB PO SCH (09:52)
[2019-04-22] MEDS: ALLOPURINOL 100 MG TAB PO SCH (09:52)
[2019-04-22] MEDS: METOPROLOL TARTRATE 50 MG TAB PO SCH ×2 (09:52→20:27)
[2019-04-22 12:19] LABS: Iron Saturation 5.9 (15.00-50.00)
[2019-04-22 12:53] LABS: Band Neutrophils % 6 %; Metamyelocytes % 3 %; Myelocytes % 3 %; Neutrophils % (M) 74 %; Nucleated Red Blood Cells 2 /100 WBC (0-0); Total Cells Counted 100
[2019-04-22 12:55] LABS: Eosinophils # (M) 0.51 k/uL (0-0.7); Lymphocytes # (M) 3.08 k/uL (1.0-4.8); Metamyelocytes # (M) 1.54 k/uL (0); Myelocytes # (M) 1.54 k/uL (0); WBC 51.4 k/uL (3.8-10.6)
[2019-04-22 12:56] LABS: Polychromasia Present; RBC Fragments Present
[2019-04-22] MEDS ORDERED: POTASSIUM CHLORIDE ER 20 MEQ TAB.ER PO STA (12:59)
[2019-04-22 13:07] LABS: Toxic Vacuolation Present
[2019-04-22 13:08] LABS: Large Platelets Present
--- NOTE | 2019-04-22 15:57 | P.PN ---
Subjective Progress Note Date: 04/22/19 This is another admission for this 79-year-old gentleman who just was discharged from the hospital a few weeks ago when he was admitted to the observation unit with difficulty breathing and was diagnosed was congestive heart failure secondary to diastole dysfunction and at that point he was found to have pleural effusion. The patient does have an extensive past medical history consistent of chronic atrial fibrillation not on oral anticoagulation due to GI bleeding, coronary artery disease and prior coronary revascularization, peripheral arterial disease and prior peripheral revascularization, history of myelofibrosis currently under the care of client services specialist, as well as chronic anemia. This time, and for the last few days, he has been experiencing increasing in the shortness of breath, the patient stated that the shortness of breath has progressed significantly and quickly where he decided to come to the emergency room. Beside that he stated that he did have also increasing in the lower extremities edema. Denies any symptoms of chest pain or chest discomfort. No dizziness or lightheadedness. No syncope. The chest x-ray this admission revealed finding consistent with CHF and bilateral pleural effusion. The BNP came in to be at 11,000. The EKG showed atrial fibrillation was controlled heart rate. The hemoglobin was 9.4, the creatinine was 0.78. The patient immediately was admitted to the hospital and started on IV Lasix. Recent echocardiogram from February 2019 revealed normal LV function was moderate MR, moderate TR, and severe pulmonary hypertension area the patient stated that currently he is in process of going to [facility] to undergo the watchman device. The patient stated that he was taking all his medications at home including to oral diuretics. 04/22/2019 A shunt was seen and examined this morning, blood pressure 125/70 with a heart rate in the 70s, 95% on 3 L of oxygen. White blood cell count 51.4, hemoglobin 9.7, platelet count 453. Sodium 136, potassium 3.5, BUN 25 and creatinine 0.9. Iron level XX TIBC 339 iron saturation 5.9 and ferritin 99.1. BNP level came back at 11,000. Patient did diurese well through the night and his weight is down significantly today, 4 pounds down. Objective - Vital Signs Vital signs: Vital Signs Temp 97.5 F L 04/22/19 08:30 Pulse 75 04/22/19 08:30 Resp 18 04/22/19 08:30 BP 125/71 04/22/19 08:30 Pulse Ox 95 04/22/19 08:30 Intake & Output 04/21/19 04/22/19 04/22/19 18:59 06:59 18:59 Intake Total 558 240 Output Total 1100 1000 1500 Balance -542 1000 -1260 Weight 80 kg 76.7 kg Intake: Oral 558 240 Output: Urine 1100 1000 1500 Other: Voiding Method Toilet Bedside Commode Urinal # Bowel Movements 1 - Exam PHYSICAL EXAMINATION: GENERAL: 79-year-old gentleman in no acute distress at the time of my examination HEENT: Head is atraumatic, normocephalic. Pupils equal, round. Sclera anicteric. Conjunctiva are clear. Mucous membranes of the mouth are moist. Neck is supple. There is no elevated jugular venous pressure. No carotid bruit is heard. HEART EXAMINATION: Heart S1 S2 1 systolic murmur is heard CHEST EXAMINATION:'s reveal diminished air entry to bilateral bases. ABDOMEN: Soft, nontender. Bowel sounds are heard. No organomegaly noted. EXTREMITIES: 2+ peripheral pulses with 1+ evidence of peripheral edema and no calf tenderness noted. NEUROLOGIC patient is awake, alert and oriented 3 . - Labs CBC & Chem 7: 04/22/19 06:47 04/22/19 06:47 Labs: Abnormal Lab Results - Last 24 Hours (Table) 04/22/19 04/22/19 04/22/19 Range/Units 06:47 06:47 06:47 WBC 51.4 H* (3.8-10.6) k/uL RBC 3.54 L (4.30-5.90) m/uL Hgb 9.7 L (13.0-17.5) gm/dL Hct 33.1 L (39.0-53.0) % MCHC 29.2 L (31.0-37.0) g/dL RDW 26.1 H (11.5-15.5) % Plt Count 453 H (150-450) k/uL Neutrophils # (Manual) 41.10 H (1.3-7.7) k/uL Monocytes # (Manual) 3.60 H (0-1.0) k/uL Metamyelocytes # (Man) 1.54 H (0) k/uL Myelocytes # (Manual) 1.54 H (0) k/uL Nucleated RBCs 2 H (0-0) /100 WBC Sodium 136 L (137-145) mmol/L BUN 25 H (9-20) mg/dL Glucose 123 H (74-99) mg/dL Calcium 8.0 L (8.4-10.2) mg/dL Iron 20 L (65-175) ug/dL Iron Saturation 5.90 L (15.00-50.00) Assessment and Plan Plan: Assessment and Plan #1 congestive heart failure exacerbation secondary to diastole dysfunction, acute on chronic #2 bilateral pleural effusion #3 chronic atrial fibrillation not on oral anticoagulation, waiting to be scheduled for a possible watchman procedure #4 coronary artery disease #5 peripheral arterial disease #6 chronic anemia #7 myelofibrosis #8 multiple comorbid conditions Plan From cardiology's perspective, we'll continue current dose of IV Lasix. We will also obtain an ultrasound of the chest to evaluate the effusions and repeat a chest x-ray tomorrow morning. DNP note has been reviewed, I agree with a documented findings and plan of care. Patient was seen and examined.
--- NOTE | 2019-04-22 16:33 | US ---
EXAMINATION TYPE: US chest DATE OF EXAM: 04/22/2019 COMPARISON: NONE CLINICAL HISTORY: assess bilateral pleural eff. TECHNIQUE: Targeted ultrasound of the posterior lower EXAM MEASUREMENTS: Right Pleural Effusion pocket size: 12.3 cm Right skin surface to fluid distance: 2.3 cm Left Pleural Effusion pocket size: 1.3 cm Left skin surface to fluid distance: 2.9 cm Right side marked for possible thoracentesis outside the dept. Left side not marked for possible thoracentesis outside the dept. Pulmonologists are able to review the images in the patient?s EMR. IMPRESSIONS: Bilateral pleural effusions right greater than left.
[2019-04-22] MEDS: POTASSIUM CHLORIDE ER 20 MEQ TAB.ER PO SCH (20:27)
[2019-04-22] MEDS: ALPRAZolam 0.25 MG TAB PO SCH (20:28)
[2019-04-22] MEDS: DOXAZOSIN 4 MG TAB PO SCH (20:28)
[2019-04-22] MEDS: AMIODARONE 200 MG TAB PO SCH (20:28)
[2019-04-22] MEDS: ATORVASTATIN 40 MG TAB PO SCH (20:28)
[2019-04-23] MEDS: FUROSEMIDE 10 MG/ML 4 ML VIAL IV SCH ×3 (06:43→21:37)
[2019-04-23] MEDS: PANTOPRAZOLE 40 MG TABLET PO SCH (06:44)
[2019-04-23] MEDS: predniSONE 20 MG TAB PO SCH (09:54)
[2019-04-23] MEDS: ASPIRIN 81 MG PO SCH (09:54)
[2019-04-23] MEDS: METOPROLOL TARTRATE 50 MG TAB PO SCH ×2 (09:54→21:37)
[2019-04-23] MEDS: NITROGLYCERIN OINT 1 INCH/GM PACKET TOPICAL SCH ×4 (09:54→21:37)
[2019-04-23] MEDS: ALLOPURINOL 100 MG TAB PO SCH (09:55)
[2019-04-23] MEDS: CLOPIDOGREL 75 MG TAB PO SCH (09:55)
[2019-04-23] MEDS: POTASSIUM CHLORIDE ER 20 MEQ TAB.ER PO SCH ×2 (09:55→21:37)
--- NOTE | 2019-04-23 11:11 | XR ---
EXAMINATION TYPE: XR chest 2V DATE OF EXAM: 04/23/2019 COMPARISON: Prior chest x-ray 04/20/2019 HISTORY: Congestive heart failure, abnormal chest x-ray TECHNIQUE: Frontal and lateral views of the chest are obtained. FINDINGS: Patient is post median sternotomy and rotated. There are overlying cardiac leads. Right he midiaphragm partially obscured, there is blunting the right gastric angle. Suspect there are calcifie d pleural plaques of the left lung base. No evident pneumothorax. Aorta is dense. Interstitium is inc reased. Heart is enlarged. May be some improvement in the prominence of the central vascularity. IMPRESSION: Suspect some improvement in aeration, volume status, additional follow-up recommended.
[2019-04-23] MEDS ORDERED: DARBEPOETIN ALFA 200 MCG/0.4 ML SYRINGE SQ SCH (11:30)
--- NOTE | 2019-04-23 12:44 | P.PN ---
Subjective Progress Note Date: 04/23/19 Principal diagnosis: CHF exacerbation Patient was seen and examined. No acute events overnight. Patient was no changes in his breathing. Chest x-ray slightly improved. He denies any chest pain or palpitations. No nausea or vomiting. No fever or chills. Objective - Vital Signs Vital signs: Vital Signs Temp 97.6 F 04/23/19 04:23 Pulse 77 04/23/19 04:23 Resp 16 04/23/19 04:23 BP 113/53 04/23/19 04:23 Pulse Ox 100 04/23/19 11:42 Intake & Output 04/22/19 04/23/19 04/23/19 18:59 06:59 18:59 Intake Total 240 360 480 Output Total 1500 1200 Balance -1260 -840 480 Weight 75.5 kg Intake: Oral 240 360 480 Output: Urine 1500 1200 Other: Voiding Method Toilet Bedside Commode Urinal # Bowel Movements 1 - Exam General: [non toxic], [no distress], [appears at stated age] Derm: [warm], [dry] Head: [atraumatic], [normocephalic], [symmetric] Eyes: [EOMI], [no lid lag], [anicteric sclera] Mouth: [no lip lesion], [mucus membranes moist] Cardiovascular: [S1S2 reg], [no murmur], [positive posterior tibial pulse bilateral], Lungs: [decreased breath sounds bilateral], [no rhonchi, no rales] , [no accessory muscle use] Abdominal: [soft], [ nontender to palpation], [no guarding], [no appreciable organomegaly] Ext: [no gross muscle atrophy], [2+ pitting lower extremity edema], [no contractures] Neuro: [no focal neuro deficits] Psych: [Alert], [oriented], [appropriate affect] - Labs CBC & Chem 7: 04/22/19 06:47 04/22/19 06:47 Labs: Abnormal Lab Results - Last 24 Hours (Table) 04/22/19 Range/Units 06:47 WBC 51.4 H* (3.8-10.6) k/uL Neutrophils # (Manual) 41.10 H (1.3-7.7) k/uL Monocytes # (Manual) 3.60 H (0-1.0) k/uL Metamyelocytes # (Man) 1.54 H (0) k/uL Myelocytes # (Manual) 1.54 H (0) k/uL Nucleated RBCs 2 H (0-0) /100 WBC Assessment and Plan Assessment: Assessment and Plan Acute exacerbation of systolic CHF Elevated BUN History of GI bleed Myeloproliferative disorder with leukocytosis CAD with recent RCA stent Atrial flutter Chronic conditions: Peripheral arterial disease, BPH, Pulmonary hypertension BNP 11,000. Troponin less than 0.0121 with EKG showing atrial fibrillation with premature ventricular complexes. Cardiology consulted, recommends IV diuresis. Chest x-ray showing improvement in aeration but continues to have bilateral pleural effusion. Echocardiogram during previous admission shows EF 55-60% with moderate LVH. Chest ultrasound done for possible thoracocentesis. Plan: Continue Lasix IV as per cardiology recommendations. Continue beta quan. Continue EARNEST inhibitor. Continue Aldactone. Daily weights and strict intake and output. Fluid restriction. Follow cardiology recommendations. follow pulmonology recommendations. BUN 25. Likely secondary to diuresis. Plan: Continue Lasix IV at this time. Daily BMP. Avoid other nephrotoxins. Plan: Continue Protonix 40 mg by mouth in the morning. Daily CBC. WBC count 53.6-51.4, platelet count 377-453, hemoglobin 9.4-9.7. Leukocytosis likely stress-induced. Gets weekly Procrit injections at Dr. Miller's office. Plan: Daily CBC. Follow hematology consultation. Plan: Continue aspirin, Plavix, Lipitor and beta quan. Plan: No anticoagulation due to recurrent GI bleeds. Continue beta quan. Continue amiodarone. Telemetry monitoring. Follow cardiology consult. Patient admitted for CHF exacerbation. Interval improvement since admission on IV Lasix. Will consult pulmonology for possible thoracocentesis. Cardiology on board. Patient is pending clinical improvement. Likely DC in 2-3 days.
--- NOTE | 2019-04-23 15:16 | P.PN ---
Subjective Progress Note Date: 04/23/19 This is another admission for this 79-year-old gentleman who just was discharged from the hospital a few weeks ago when he was admitted to the observation unit with difficulty breathing and was diagnosed was congestive heart failure secondary to diastole dysfunction and at that point he was found to have pleural effusion. The patient does have an extensive past medical history consistent of chronic atrial fibrillation not on oral anticoagulation due to GI bleeding, coronary artery disease and prior coronary revascularization, peripheral arterial disease and prior peripheral revascularization, history of myelofibrosis currently under the care of returning officer, as well as chronic anemia. This time, and for the last few days, he has been experiencing increasing in the shortness of breath, the patient stated that the shortness of breath has progressed significantly and quickly where he decided to come to the emergency room. Beside that he stated that he did have also increasing in the lower extremities edema. Denies any symptoms of chest pain or chest discomfort. No dizziness or lightheadedness. No syncope. The chest x-ray this admission revealed finding consistent with CHF and bilateral pleural effusion. The BNP came in to be at 11,000. The EKG showed atrial fibrillation was controlled heart rate. The hemoglobin was 9.4, the creatinine was 0.78. The patient immediately was admitted to the hospital and started on IV Lasix. Recent echocardiogram from February 2019 revealed normal LV function was moderate MR, moderate TR, and severe pulmonary hypertension area the patient stated that currently he is in process of going to [facility] to undergo the watchman device. The patient stated that he was taking all his medications at home including to oral diuretics. 04/22/2019 Patient was seen and examined this morning, blood pressure 125/70 with a heart rate in the 70s, 95% on 3 L of oxygen. White blood cell count 51.4, hemoglobin 9.7, platelet count 453. Sodium 136, potassium 3.5, BUN 25 and creatinine 0.9. Iron level XX TIBC 339 iron saturation 5.9 and ferritin 99.1. BNP level came back at 11,000. Patient did diurese well through the night and his weight is down significantly today, 4 pounds down. 04/23/2019 Patient was seen and examined this morning , ultrasound of the chest was performed which revealed a right pleural effusion measuring 12.3 cm, left pleural effusion 1.3 cm. Chest x-ray shows some improvement in aeration. Blood pressure 120/60 with a heart rate in the 70s. White blood cell count 51.4, hemoglobin 9.7, platelet count 453. Sodium 136, potassium 3.5, BUN 25 and creatinine 0.9. Iron 20 TIBC 339 iron saturation 5.9 Objective - Vital Signs Vital signs: Vital Signs Temp 97.4 F L 04/23/19 12:00 Pulse 72 04/23/19 12:00 Resp 18 04/23/19 12:00 BP 158/64 04/23/19 12:00 Pulse Ox 100 04/23/19 12:00 Intake & Output 04/22/19 04/23/19 04/23/19 18:59 06:59 18:59 Intake Total 240 360 480 Output Total 1500 1200 Balance -1260 -840 480 Weight 75.5 kg Intake: Oral 240 360 480 Output: Urine 1500 1200 Other: Voiding Method Toilet Bedside Commode Urinal # Bowel Movements 1 - Exam PHYSICAL EXAMINATION: GENERAL: 79-year-old gentleman in no acute distress at the time of my examination HEENT: Head is atraumatic, normocephalic. Pupils equal, round. Sclera anicteric. Conjunctiva are clear. Mucous membranes of the mouth are moist. Nec k is supple. There is no elevated jugular venous pressure. No carotid bruit is heard. HEART EXAMINATION: Heart S1 S2 1 systolic murmur is heard CHEST EXAMINATION: Lungs reveal improvement in air entry bilaterally. ABDOMEN: Soft, nontender. Bowel sounds are heard. No organomegaly noted. EXTREMITIES: 2+ peripheral pulses with 1+ evidence of peripheral edema and no calf tenderness noted. NEUROLOGIC patient is awake, alert and oriented 3 . - Labs CBC & Chem 7: 04/22/19 06:47 04/22/19 06:47 Assessment and Plan Plan: Assessment and Plan #1 congestive heart failure exacerbation secondary to diastole dysfunction, acute on chronic #2 bilateral pleural effusion #3 chronic atrial fibrillation not on oral anticoagulation, waiting to be scheduled for a possible watchman procedure #4 coronary artery disease #5 peripheral arterial disease #6 chronic anemia #7 myelofibrosis #8 multiple comorbid conditions Plan From cardiology's perspective, we'll continue current dose of IV Lasix. Patient did have an ultrasound of the chest done yesterday which showed a 12.3 cm right sided pleural effusion and a left pleural effusion measuring 1.3 cm repeat chest x-ray performed today shows improvement. From our perspective we'll recommend to continue current dose of IV Lasix for 24 hours and reevaluate in the morning. DNP note has been reviewed, I agree with a documented findings and plan of care. Patient was seen and examined.
--- NOTE | 2019-04-23 15:45 | P.CNPUL ---
History of Present Illness Consult date: 04/23/19 Requesting physician: Pj Avery Reason for consult: dyspnea, pleural effusion Chief complaint: Shortness of breath, cough, congestion History of present illness: This is a very pleasant 79-year-old gentleman follows with Dr. Franklin as his primary care physician. He has a history of myeloproliferative disorder, esophagitis, severe peripheral arterial disease, severe pulmonary hypertension, right-sided congestive heart failure, coronary artery disease, hyperlipidemia, hypertension, atrial flutter, gastroesophageal reflux disease, former smoker. He is also been noted to have a chronic right-sided pleural effusion secondary to chronic diastolic congestive heart failure. He presented here to the emergency room on 04/20/2019 with complaints of increasing shortness of breath cough and congestion. He was having significant dyspnea on minimal exertion. He does have a history of atrial fibrillation but not on any anticoagulation due to history of GI bleeding. He is scheduled to undergo a Watchman device placement at [facility]. He is seen today in consultation on the selective care unit. Currently sitting up in a chair at the bedside. Awake and alert in no acute distress. Chest x-ray is showing blunting of the right gastric angle calcified pleural plaques left lung base increased interstitium and central vascularity which is showing some improvement compared to previous. Ultrasound of the right chest reveals a pocket at 12.3 cm. White count 51.4. Hemoglobin 9.3. Platelet count 453,000. Sodium 136. Potassium 3.5. Creatinine 0.90. ProBNP 11,000. Currently on Lasix 40 mg IV push every 8 hours. Review of Systems REVIEW OF SYSTEMS: CONSTITUTIONAL: Denies any recent significant weight loss or weight gain. EYES: Denies change in vision. EARS, NOSE, MOUTH, THROAT: Denies headaches, denies sore throat. CARDIOVASCULAR: Denies chest pain, palpitations or syncopal episodes. RESPIRATORY: Positive for shortness of breath, cough, congestion no hemoptysis. GASTROINTESTINAL: Denies change in appetite, denies abdominal pain GENITOURINARY: Denies hematuria, denies infections. MUSKULOSKELETAL: Denies pain, denies swelling. INTEGUMENTARY: Denies rash, denies eczema. NEUROLOGICAL: Denies recent memory loss, no recent seizure activity. PSYCHIATRIC: Denies anxiety, denies depression. HEMATOLOGIC/LYMPHATIC: Denies anemia, denies enlarged lymph nodes. Past Medical History Past Medical History: Atrial Flutter, Blood Disorder, Coronary Artery Disease (CAD), Heart Failure, GERD/Reflux, GI Bleed, Hyperlipidemia, Hypertension, Myocardial Infarction (ND), Prostate Disorder, Vascular Disorder Additional Past Medical History / Comment(s): myeloproliferative disorder(leukocytosis and thrombocytosis), esophagitis, severe PAD, severe pulmonary hypertension , right-sided heart failure with severe pulmonary hypertension, BPH, Exercise intolerance Last Myocardial Infarction Date:: 2017 History of Any Multi-Drug Resistant Organisms: Acinetobacter (MDRO), MRSA Date of last positivie culture/infection: 05/12/18-MRSA MDRO Source:: Foot-MRSA Past Surgical History: Cholecystectomy, Coronary Bypass/CABG, Heart Catheterization, Hernia Repair Additional Past Surgical History / Comment(s): Cardiac catheterization on 10/04/2014, right femoral artery/common femoral artery endarterectomy. 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 tom inguinal hernia repair, coronary artery bypass surgery, EGD, colonoscopy. Cath with PCI to RCA 02/04/19 Past Anesthesia/Blood Transfusion Reactions: No Reported Reaction Past Psychological History: No Psychological Hx Reported Additional Psychological History / Comment(s): . . Smoking Status: Former smoker Past Alcohol Use History: Rare Additional Past Alcohol Use History / Comment(s): STARTED SMOKING AT AGE 16 QUIT AT AGE 40 SMOKED 1 1/2 PPD Past Drug Use History: None Reported - Past Family History Brother(s) Family Medical History: Cancer Additional Family Medical History / Comment(s): 2 with lung and 1 with prostate Mother Family Medical History: Myocardial Infarction (ND) Father History Unknown: Yes Additional Family Medical History / Comment(s): AT AGE 83 FROM "HARDENING OF THE ARTERIES" Medications and Allergies Home Medications Medication Instructions Recorded Confirmed Type Atorvastatin [Lipitor] 40 mg PO HS 09/27/14 04/20/19 History Spironolactone [Aldactone] 25 mg PO BID 11/12/17 04/20/19 History Aspirin 81 mg PO DAILY #30 chew 04/07/18 04/20/19 Rx Clopidogrel [Plavix] 75 mg PO DAILY #30 tab 04/07/18 04/20/19 Rx Pantoprazole Sodium [Protonix] 40 mg PO DAILY 07/14/18 04/20/19 History Metoprolol Tartrate [Lopressor] 50 mg PO BID 02/12/19 04/20/19 History rOPINIRole HCL [Requip] 1 mg PO HS 02/12/19 04/20/19 History Terazosin [Hytrin] 5 mg PO HS 02/28/19 04/20/19 History Allopurinol [Zyloprim] 100 mg PO DAILY 03/31/19 04/20/19 History Epoetin [place] [Procrit] 40,000 units IV WEEKLY 04/03/19 04/20/19 History predniSONE 40 mg PO DAILY tab 04/04/19 04/20/19 Rx Amiodarone [Cordarone] 200 mg PO HS 04/20/19 04/20/19 History Furosemide [Lasix] 60 mg PO BID 04/20/19 04/20/19 History Allergies Allergy/AdvReac Type Severity Reaction Status Date / Time No Known Allergies Allergy Verified 04/20/19 18:04 Physical Exam Vitals: Vital Signs Temp Pulse Resp BP Pulse Ox 04/23/19 12:00 97.4 F L 72 18 158/64 100 04/23/19 11:42 100 04/23/19 08:30 97.8 F 84 18 119/63 100 04/23/19 04:23 97.6 F 77 16 113/53 91 L 04/22/19 23:57 54 L 18 106/53 96 04/22/19 20:28 98.3 F 76 18 130/62 93 L 04/22/19 17:48 94 L Intake and Output 04/23/19 04/23/19 04/23/19 06:59 14:59 22:59 Intake Total 240 480 Output Total 400 Balance -160 480 Intake: Oral 240 480 Output: Urine 400 Other: Voiding Method Toilet Bedside Commode Urinal Weight 75.5 kg GENERAL EXAM: Alert, comfortable in mild respiratory distress. On 2 L nasal cannula sats 100%. HEAD: Normocephalic. EYES: Normal reaction of pupils, equal size. NOSE: Clear with pink turbinates. THROAT: No erythema or exudates. NECK: No masses, no JVD. CHEST: No chest wall deformity. LUNGS: Equal air entry with crackles in the bilateral posterior bases right greater than left. CVS: S1 and S2 normal with no audible murmur, regular rhythm. ABDOMEN: No hepatosplenomegaly, normal bowel sounds, no guarding or rigidity. SPINE: No scoliosis or deformity SKIN: No rashes CENTRAL NERVOUS SYSTEM: No focal deficits, tone is normal in all 4 extremities. EXTREMITIES: There is no peripheral edema. No clubbing, no cyanosis. Peripheral pulses are intact. Results - Laboratory Findings CBC and BMP: 04/22/19 06:47 04/22/19 06:47 PT/INR, D-dimer PT 14.1 sec (9.0-12.0) H 04/20/19 17:47 INR 1.4 (<1.2) H 04/20/19 17:47 Abnormal lab findings: Abnormal Labs 04/20/19 04/20/19 04/20/19 17:47 17:47 17:47 WBC 53.6 H* RBC 3.37 L Hgb 9.4 L Hct 30.7 L MCHC 30.4 L RDW 26.3 H Plt Count Neutrophils # (Manual) 46.00 H Lymphocytes # (Manual) 0.54 L Monocytes # (Manual) 4.29 H Metamyelocytes # (Man) 1.07 H Myelocytes # (Manual) 2.14 H Nucleated RBCs 1 H PT 14.1 H INR 1.4 H Sodium 133 L BUN 22 H Glucose 131 H Calcium 7.7 L Iron Iron Saturation Total Bilirubin 2.0 H Creatine Kinase 48 L Total Protein 5.2 L Albumin 2.9 L 04/22/19 04/22/19 04/22/19 06:47 06:47 06:47 WBC 51.4 H* RBC 3.54 L Hgb 9.7 L Hct 33.1 L MCHC 29.2 L RDW 26.1 H Plt Count 453 H Neutrophils # (Manual) 41.10 H Lymphocytes # (Manual) Monocytes # (Manual) 3.60 H Metamyelocytes # (Man) 1.54 H Myelocytes # (Manual) 1.54 H Nucleated RBCs 2 H PT INR Sodium 136 L BUN 25 H Glucose 123 H Calcium 8.0 L Iron 20 L Iron Saturation 5.90 L Total Bilirubin Creatine Kinase Total Protein Albumin - Diagnostic Findings Chest x-ray: image reviewed Assessment and Plan Assessment: Impression: #1 Dyspnea secondary to moderate right-sided pleural effusion somewhat chronic in nature with acute exacerbation of chronic diastolic congestive heart failure. #2 Coronary artery disease. #3 Atrial fibrillation, not on anticoagulation. #4 History of GI bleeding. #5 Myeloproliferative disorder. #6 History of esophagitis. #7 Severe peripheral arterial disease. #8 Severe pulmonary hypertension. #9 Benign prosthetic hypertrophy. #10 Remote history of chronic tobacco dependence. Plan: The patient was seen and evaluated by Dr. King. Chest x-ray and labs reviewed. Ultrasound of the right chest reviewed. There appears to be some trapped lung and chronicity of the right pleural effusion. We will continue with diuretics. Repeat a chest x-ray. If thoracentesis is required may have interventional radiology performed under ultrasound guidance. We'll continue with his current medications. Increase his activity as tolerated. We'll con tinue to follow make further recommendations based on his clinical status. I, the cosigning physician, performed a history & physical examination of the patient. Lungs sounds with bilateral crackles right greater than left. Maintaining good O2 saturations in the 90s on 2 L/m per nasal cannula. I discussed the assessment and plan of care with my nurse practitioner, Cristiana Landers. I attest to the above note as dictated by her. Time with Patient: Greater than 30
[2019-04-23] MEDS: DOXAZOSIN 4 MG TAB PO SCH (21:37)
[2019-04-23] MEDS: AMIODARONE 200 MG TAB PO SCH (21:37)
[2019-04-23] MEDS: ATORVASTATIN 40 MG TAB PO SCH (21:37)
[2019-04-23] MEDS: ALPRAZolam 0.25 MG TAB PO SCH (21:37)
[2019-04-24] MEDS: FUROSEMIDE 10 MG/ML 4 ML VIAL IV SCH ×3 (06:21→20:10)
[2019-04-24] MEDS: PANTOPRAZOLE 40 MG TABLET PO SCH (06:22)
[2019-04-24 07:59] LABS: Anisocytosis Marked; HCT 32.5 % (39.0-53.0); HGB 9.3 gm/dL (13.0-17.5); Hypochromasia Marked; MCH 26.5 pg (25.0-35.0); MCHC 28.7 g/dL (31.0-37.0); MCV 92.6 fL (80.0-100.0); Macrocytosis Moderate; Microcytosis Slight; Platelet Count 324 k/uL (150-450); Poikilocytosis Marked
[2019-04-24 08:15] LABS: African American GFR (CKD) >90 (>60 ml/min/1.73 sqM); Anion Gap 6 mmol/L; Blood Urea Nitrogen 25 mg/dL (9-20); Calcium 8.6 mg/dL (8.4-10.2); Carbon Dioxide 29 mmol/L (22-30); Chloride 100 mmol/L (98-107); Glucose 106 mg/dL (74-99); Potassium 4.5 mmol/L (3.5-5.1); Sodium 135 mmol/L (137-145)
[2019-04-24 08:23] LABS: RDW 25.8 % (11.5-15.5)
[2019-04-24 08:24] LABS: WBC 52.1 k/uL (3.8-10.6)
[2019-04-24] MEDS: METOPROLOL TARTRATE 50 MG TAB PO SCH ×2 (08:41→20:10)
[2019-04-24] MEDS: predniSONE 20 MG TAB PO SCH (08:41)
[2019-04-24] MEDS: CLOPIDOGREL 75 MG TAB PO SCH (08:41)
[2019-04-24] MEDS: ALLOPURINOL 100 MG TAB PO SCH (08:41)
[2019-04-24] MEDS: NITROGLYCERIN OINT 1 INCH/GM PACKET TOPICAL SCH ×4 (08:41→20:10)
[2019-04-24] MEDS: ASPIRIN 81 MG PO SCH (08:41)
[2019-04-24] MEDS: POTASSIUM CHLORIDE ER 20 MEQ TAB.ER PO SCH ×2 (08:41→20:09)
--- NOTE | 2019-04-24 09:07 | XR ---
EXAMINATION TYPE: XR chest 1V portable DATE OF EXAM: 04/24/2019 COMPARISON: 04/23/2019 HISTORY: Shortness of breath TECHNIQUE: Single frontal view of the chest is obtained. FINDINGS: Cardiomegaly and diffuse interstitial pattern with small bilateral effusions. Bibasilar in filtrate. Postoperative change and atherosclerotic change aorta. Arthropathy of the shoulders. No pne umothorax. IMPRESSION: Stable findings suggestive of CHF.
--- NOTE | 2019-04-24 12:15 | CDI ---
Documentation Clarification Form Documentation Clarification Form Date: 04/24/2019 11:44:00 AM From: Trang Maxwell RN CCDS Admit Date: 04/20/2019 8:23:00 PM Patient Name: Jacques Burk Visit Number: [id number] Discharge Date: ATTENTION: The Clinical Documentation Specialists (CDI) and [facility] Coding Staff appreciate your assistance in clarifying documentation. Please respond to the clarification below the line at the bottom and electronically sign. The CDI & [facility] Coding staff will review the response and follow-up if needed. Please note: Queries are made part of the Legal Health Record. If you have any questions, please contact the author of this message via ITS. Dr. John Giles MD Conflicting documentation has been found in the medical record: Your Progress Note 04/23/2019 Atrial Flutter Cardiology Progress Note 04/23/2019 Chronic atrial fibrillation not on oral anticoagulation, waiting to be scheduled for a possible watchman procedure. History/Risk Factors: 79 year old male presents to the ED via EMS for difficulty in breathing. Medical history of Atrial Flutter, CAD, CHF, [place] 2018, HTN Clinical Indicators: EXG atrial fibrillation with premature aberrantly conducted compexes . Treatment: Amiodarone Hcl; In your opinion, what is the most clinically appropriate diagnosis for this patient? Chronic Atrial Fibrillation Atrial Flutter ( specifiy type) Other explanation of clinical findings Unable to determine (no explanation for clinical findings) (Last Revision: February 2018) chronic atrial fibrillation MTDD
--- NOTE | 2019-04-24 15:49 | P.PN ---
Subjective Progress Note Date: 04/24/19 Principal diagnosis: Recurrent right-sided pleural effusion. This is a very pleasant 79-year-old gentleman follows with Dr. Franklin as his primary care physician. He has a history of myeloproliferative disorder, esophagitis, severe peripheral arterial disease, severe pulmonary hypertension, right-sided congestive heart failure, coronary artery disease, hyperlipidemia, hypertension, atrial flutter, gastroesophageal reflux disease, former smoker. He is also been noted to have a chronic right-sided pleural effusion secondary to chronic diastolic congestive heart failure. He presented here to the emergency room on 04/20/2019 with complaints of increasing shortness of breath cough and congestion. He was having significant dyspnea on minimal exertion. He does have a history of atrial fibrillation but not on any anticoagulation due to history of GI bleeding. He is scheduled to undergo a Watchman device placement at [facility]. He is seen today in consultation on the selective care unit. Currently sitting up in a chair at the bedside. Awake and alert in no acute distress. Chest x-ray is showing blunting of the right gastric angle calcified pleural plaques left lung base increased interstitium and central vascularity which is showing some improvement compared to previous. Ultrasound of the right chest reveals a pocket at 12.3 cm. White count 51.4. Hemoglobin 9.3. Platelet count 453,000. Sodium 136. Potassium 3.5. Creatinine 0.90. ProBNP 11,000. Currently on Lasix 40 mg IV push every 8 hours. The patient is seen today 04/24/2018 in follow-up on the selective care unit. He is currently awake and alert in no acute distress. He is breathing a bit better today compared to yesterday but not quite back to his baseline. Ultrasound of the chest did show a pocket of fluid on the right however there is some lung tissue involved in unsafe for blind thoracentesis. He is maintaining good O2 saturations in the high 90s on 2 L/m per nasal cannula. He's been afebrile. Hemodynamically stable. White count 52.1. Hemoglobin 9.3. Sodium 135. Creatinine 0.88. He is continued on Lasix 40 mg IV every 8 hours. Today's chest x-ray shows improvement in the right pleural effusion along with improvement overall vascular congestion. Objective - Vital Signs Vital signs: Vital Signs Temp 98.2 F 04/24/19 15:22 Pulse 74 04/24/19 15:22 Resp 20 04/24/19 15:39 BP 130/70 04/24/19 15:22 Pulse Ox 98 04/24/19 15:22 Intake & Output 04/23/19 04/24/19 04/24/19 18:59 06:59 18:59 Intake Total 960 720 Output Total 800 2450 2300 Balance 160 -2450 -1580 Weight 72.8 kg Intake: Oral 960 720 Output: Urine 800 2450 2300 Other: Voiding Method Bedside Commode Bedside Commode Bedside Commode Urinal # Bowel Movements 1 - Exam GENERAL EXAM: Pleasant 79-year-old gentleman. Alert, comfortable in mild respiratory distress. On 2 L nasal cannula sats 100%. HEAD: Normocephalic. EYES: Normal reaction of pupils, equal size. NOSE: Clear with pink turbinates. THROAT: No erythema or exudates. NECK: No masses, no JVD. CHEST: No chest wall deformity. LUNGS: Equal air entry with crackles in the bilateral posterior bases right greater than left. CVS: S1 and S2 normal with no audible murmur, regular rhythm. ABDOMEN: No hepatosplenomegaly, normal bowel sounds, no guarding or rigidity. SPINE: No scoliosis or deformity SKIN: No rashes CENTRAL NERVOUS SYSTEM: No focal deficits, tone is normal in all 4 extremities. EXTREMITIES: There is no peripheral edema. No clubbing, no cyanosis. Sintia pheral pulses are intact. - Labs CBC & Chem 7: 04/24/19 05:43 04/24/19 05:43 Labs: Abnormal Lab Results - Last 24 Hours (Table) 04/24/19 04/24/19 Range/Units 05:43 05:43 WBC 52.1 H* (3.8-10.6) k/uL RBC 3.50 L (4.30-5.90) m/uL Hgb 9.3 L (13.0-17.5) gm/dL Hct 32.5 L (39.0-53.0) % MCHC 28.7 L (31.0-37.0) g/dL RDW 25.8 H (11.5-15.5) % Sodium 135 L (137-145) mmol/L BUN 25 H (9-20) mg/dL Glucose 106 H (74-99) mg/dL Assessment and Plan Assessment: Impression: #1 Dyspnea secondary to moderate right-sided pleural effusion somewhat chronic in nature with acute exacerbation of chronic diastolic congestive heart failure. Improved on today's chest x-ray. Continued on Lasix 40 mg IV every 8 hours. #2 Coronary artery disease. #3 Atrial fibrillation, not on anticoagulation. #4 History of GI bleeding. #5 Myeloproliferative disorder. #6 History of esophagitis. #7 Severe peripheral arterial disease. #8 Severe pulmonary hypertension. #9 Benign prosthetic hypertrophy. #10 Remote history of chronic tobacco dependence. Plan: The patient was seen and evaluated by Dr. King. Chest x-ray and labs reviewed. He is breathing a bit easier today. Chest x-ray shows improvement of the right pleural effusion and overall congestion. Deanna Lasix 40 mg IV push every 8 hours. We'll continue with his current medications. Increase his activity as tolerated. We'll continue to follow make further recommendations based on his clinical status. I, the cosigning physician, performed a history & physical examination of the patient. Lungs sounds with bilateral crackles right greater than left. Maintain ing good O2 saturations in the 90s on 2 L/m per nasal cannula. I discussed the assessment and plan of care with my nurse practitioner, Cristiana Landers. I attest to the above note as dictated by her.
--- NOTE | 2019-04-24 16:09 | P.PN ---
Subjective Progress Note Date: 04/24/19 Principal diagnosis: CHF exacerbation Patient was seen and examined. No acute events overnight. Patient reports no changes in his breathing. He reports improvement in his lower extremity swelling. Patient complains of left foot pain that started this morning. 10 out of 10 pain when he bears weight on his foot. Also complains of increased left foot swelling. He denies any chest pain or palpitations. No nausea or vomiting. No fever or chills. Objective - Vital Signs Vital signs: Vital Signs Temp 98.2 F 04/24/19 15:22 Pulse 74 04/24/19 15:22 Resp 20 04/24/19 15:39 BP 130/70 04/24/19 15:22 Pulse Ox 98 04/24/19 15:22 Intake & Output 04/23/19 04/24/19 04/24/19 18:59 06:59 18:59 Intake Total 960 720 Output Total 800 2450 2300 Balance 160 -2450 -1580 Weight 72.8 kg Intake: Oral 960 720 Output: Urine 800 2450 2300 Other: Voiding Method Bedside Commode Bedside Commode Bedside Commode Urinal # Bowel Movements 1 - Exam General: [non toxic], [no distress], [appears at stated age] Derm: [warm], [dry] Head: [atraumatic], [normocephalic], [symmetric] Eyes: [EOMI], [no lid lag], [anicteric sclera] Mouth: [no lip lesion], [mucus membranes moist] Cardiovascular: [S1S2 reg], [no murmur], [positive posterior tibial pulse bilateral], Lungs: [decreased breath sounds bilateral], [no rhonchi, no rales] , [no accessory muscle use] Abdominal: [soft], [ nontender to palpation], [no guarding], [no appreciable organomegaly] Ext: [no gross muscle atrophy], [no edema], [no contractures], [tenderness to palpation over the dorsal aspect of the foot] Neuro: [no focal neuro deficits] Psych: [Alert], [oriented], [appropriate affect] - Labs CBC & Chem 7: 04/24/19 05:43 04/24/19 05:43 Labs: Abnormal Lab Results - Last 24 Hours (Table) 04/24/19 04/24/19 Range/Units 05:43 05:43 WBC 52.1 H* (3.8-10.6) k/uL RBC 3.50 L (4.30-5.90) m/uL Hgb 9.3 L (13.0-17.5) gm/dL Hct 32.5 L (39.0-53.0) % MCHC 28.7 L (31.0-37.0) g/dL RDW 25.8 H (11.5-15.5) % Sodium 135 L (137-145) mmol/L BUN 25 H (9-20) mg/dL Glucose 106 H (74-99) mg/dL Assessment and Plan Assessment: Assessment and Plan Left foot pain Acute exacerbation of systolic CHF Elevated BUN History of GI bleed Myeloproliferative disorder with leukocytosis CAD with recent RCA stent Atrial flutter Chronic conditions: Peripheral arterial disease, BPH, Pulmonary hypertension Possible gout? Plans: Get x-ray of foot. Check uric acid. Continue prednisone. Follow PT recommendations. BNP 11,000. Troponin less than 0.0122 with EKG showing atrial fibrillation with premature ventricular complexes. Cardiology consulted, recommends IV diuresis. Chest x-ray showing stable findings of CHF. Echocardiogram during previous admission shows EF 55-60% with moderate LVH. Chest ultrasound done for possible thoracocentesis. Pulmonology consulted, recommends no thoracocentesis at this time due to risk factors. Plan: Continue Lasix IV as per cardiology recommendations. Continue beta quan. Continue EARNEST inhibitor. Continue Aldactone. Daily weights and strict intake and output. Fluid restriction. Follow cardiology recommendations. follow pulmonology recommendations. BUN 25. Likely secondary to diuresis. Plan: Continue Lasix IV at this time. Daily BMP. Avoid other nephrotoxins. Plan: Continue Protonix 40 mg by mouth in the morning. Daily CBC. WBC count 53.6-51.4-52.1, platelet count [phone], hemoglobin 9.4-9.7-9.3. Leukocytosis likely stress-induced. Gets weekly Procrit injections at Dr. Miller's office. Plan: Daily CBC. Follow hematology consultation. Plan: Continue aspirin, Plavix, Lipitor and beta quan. Plan: No anticoagulation due to recurrent GI bleeds. Continue beta quan. Continue amiodarone. Telemetry monitoring. Follow cardiology consult. Patient admitted for CHF exacerbation. Minimal improvement since admission on IV Lasix. Cardiology on board. Patient is pending clinical improvement. Likely DC in 2-3 days.
--- NOTE | 2019-04-24 16:32 | P.PN ---
Subjective Progress Note Date: 04/24/19 This is a 79-year-old gentleman with a history of myeloproliferative disorder, severe peripheral vascular disease, severe pulmonary hypertension, right-sided congestive heart failure, atrial flutter and also GI reflux disease. Patient was readmitted to the hospital with increasing shortness of breath and evidence of some diastolic CHF. Patient also has pleural effusion. Patient has been treated with IV Lasix with improvement of his symptoms. He was seen by pulmonology to see if he is a candidate for pleural tap. It appears that pulmonology is not going to do any pleural tap. Patient wants to talk to Dr. Pelayo regarding his arrangement [facility] the [facility] regarding closure of the atrial appendage with watchman procedure. Overall patient seemed to be showing improvement. We'll continue current medical therapy Objective - Vital Signs Vital signs: Vital Signs Temp 98.2 F 04/24/19 15:22 Pulse 74 04/24/19 15:22 Resp 20 04/24/19 15:39 BP 130/70 04/24/19 15:22 Pulse Ox 98 04/24/19 15:22 Intake & Output 04/23/19 04/24/19 04/24/19 18:59 06:59 18:59 Intake Total 960 720 Output Total 800 2450 2300 Balance 160 -2450 -1580 Weight 72.8 kg Intake: Oral 960 720 Output: Urine 800 2450 2300 Other: Voiding Method Bedside Commode Bedside Commode Bedside Commode Urinal # Bowel Movements 1 - Exam GENERAL EXAM: Patient is alert and oriented and doesn't appear to be in any acute distress HEENT: Normocephalic. Normal reaction of pupils, equal size, normal range of extraocular motion. No erythema or exudates in the throat. NECK: No masses, no nuchal rigidity. CHEST: No chest wall deformity. LUNGS: Diminished breath sounds at bases HEART: S1 and S2 normal . Irregular heart sounds ABDOMEN: No hepatosplenomegaly, normal bowel sounds, no guarding or rigidity. SKIN: No rashes CENTRAL NERVOUS SYSTEM: No focal deficits. EXTREMITIES: No cyanosis, clubbing or edema. - Labs CBC & Chem 7: 04/24/19 05:43 04/24/19 05:43 Labs: Abnormal Lab Results - Last 24 Hours (Table) 04/24/19 04/24/19 Range/Units 05:43 05:43 WBC 52.1 H* (3.8-10.6) k/uL RBC 3.50 L (4.30-5.90) m/uL Hgb 9.3 L (13.0-17.5) gm/dL Hct 32.5 L (39.0-53.0) % MCHC 28.7 L (31.0-37.0) g/dL RDW 25.8 H (11.5-15.5) % Sodium 135 L (137-145) mmol/L BUN 25 H (9-20) mg/dL Glucose 106 H (74-99) mg/dL Assessment and Plan (1) CHF exacerbation Current Visit: Yes Status: Acute Priority: High Code(s): I50.9 - HEART FAILURE, UNSPECIFIED SNOMED Code(s): 179451794 (2) Myelofibrosis Current Visit: Yes Status: Chronic Priority: Medium Code(s): D75.81 - MYELOFIBROSIS SNOMED Code(s): 97957726 (3) Atrial flutter Current Visit: No Status: Acute Code(s): I48.92 - UNSPECIFIED ATRIAL FLUTTER SNOMED Code(s): 3691847 (4) Barretts esophagus Current Visit: No Status: Acute Code(s): K22.70 - PETTY'S ESOPHAGUS WITHOUT DYSPLASIA SNOMED Code(s): 241904456 (5) CAD (coronary artery disease) Current Visit: No Status: Acute Code(s): I25.10 - ATHSCL HEART DISEASE OF [place] CORONARY ARTERY W/O ANG PCTRS SNOMED Code(s): 67767781 Plan: Continue current management. Repeat chest x-ray in the morning. Increase activity. 4. Possible discharge within next 24-48 hours.
--- NOTE | 2019-04-24 16:33 | XR ---
EXAMINATION TYPE: XR foot complete LT DATE OF EXAM: 04/24/2019 COMPARISON: NONE HISTORY: Pain TECHNIQUE: 3 views FINDINGS: There is some narrowing and spurring at the first MP joint. There is osteosclerosis at the subtalar joint. There is vascular calcification. I see no acute fracture nor dislocation. 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 Sclerosis at the subtalar joint consistent with old trauma. No acute bony abnormality.
[2019-04-24] MEDS: NYSTATIN 100,000 UNIT/ML SUSP 500,000 UNIT/5 ML CUP PO SCH ×2 (17:04→20:10)
[2019-04-24] MEDS: AMIODARONE 200 MG TAB PO SCH (20:09)
[2019-04-24] MEDS: ATORVASTATIN 40 MG TAB PO SCH (20:09)
[2019-04-24] MEDS: DOXAZOSIN 4 MG TAB PO SCH (20:10)
[2019-04-24] MEDS: ALPRAZolam 0.25 MG TAB PO SCH (20:10)
[2019-04-25] MEDS: FUROSEMIDE 10 MG/ML 4 ML VIAL IV SCH ×2 (04:41→19:57)
[2019-04-25] MEDS: PANTOPRAZOLE 40 MG TABLET PO SCH (06:58)
[2019-04-25] MEDS: POTASSIUM CHLORIDE ER 20 MEQ TAB.ER PO SCH ×2 (10:15→19:57)
[2019-04-25] MEDS: METOPROLOL TARTRATE 50 MG TAB PO SCH ×2 (10:15→19:57)
[2019-04-25] MEDS: NITROGLYCERIN OINT 1 INCH/GM PACKET TOPICAL SCH (10:15)
[2019-04-25] MEDS: predniSONE 20 MG TAB PO SCH (10:15)
[2019-04-25] MEDS: CLOPIDOGREL 75 MG TAB PO SCH (10:16)
[2019-04-25] MEDS: ALLOPURINOL 100 MG TAB PO SCH (10:16)
[2019-04-25] MEDS: ASPIRIN 81 MG PO SCH (10:16)
[2019-04-25] MEDS: NYSTATIN 100,000 UNIT/ML SUSP 500,000 UNIT/5 ML CUP PO SCH ×4 (10:16→19:58)
--- NOTE | 2019-04-25 12:21 | PN ---
PROGRESS NOTE Mr. Burk is a gentleman with a history of hematological problems including probable myelodysplastic syndrome. He has atrial fibrillation, diastolic heart failure, came in with significant weight gain. He has been diuresed aggressively and lost lot of weight. He complains of feeling fatigue and weakness. He remains in atrial fib, rate control is better. I am suggesting that we cut back the Lasix from 40 mg q.8 hours to q.12 hours. This patient cannot be on anticoagulants because of recurrent GI bleed. I have spoken to Dr. Curtis Bermudez at [facility] and he was willing to perform a Watchman procedure without anticoagulation and perform electrical cardioversion. However, this procedure has not been scheduled, but he has had his 1st visit with them. I explained to the patient that I will speak to Dr. Bermudez and see if we can expedite this, but he has so many other comorbid conditions which can explain his feeling of weakness, fatigue, lack of energy and also shortness of breath. The patient has history of CAD, prior bypass surgery and PCI. Vitals are stable today. His breathing is easier. He is resting comfortably and he does not seem to have any significant chest pain. His shortness of breath has also improved but he complains of fatigue and lack of energy at this time. Blood pressure is 110/70, pulse rate is 80-90, irregular. JVD is 1 cm. No carotid bruit. S1, S2 with irregular rate and rhythm. Short systolic murmur is noted. Lungs reveal diminished air entry. Abdomen is soft. Lower extremity edema has resolved. IMPRESSION: 1. Symptomatic atrial flutter fibrillation unresponsive to pharmacological agents. Cardioversion was deferred because he could not be anticoagulated. 2. Coronary artery disease with history of prior bypass surgery and PCI. 3. History of myelodysplastic syndrome on epoetin injections weekly. 4. History of hyperlipidemia. 5. RECOMMENDATIONS: I am recommending that we will switch the Lasix from q.8 to q.12 hours intravenously. I will also continue the beta quan, Lopressor 50 mg b.i.d. and amiodarone 200 mg daily. He is also on aspirin and Plavix. I will speak to Dr. Bermudez and see if he can move up his Watchman procedure to a sooner date. I explained my thoughts in detail with the patient. We will give him some additional nutritional supplements and gradual increase activity and work with Physical therapy and Occupational therapy. MMODL / IJN: [id number] /
[2019-04-25] MEDS ORDERED: COLCHICINE 0.6 MG EACH PO SCH (14:15)
--- NOTE | 2019-04-25 14:18 | P.PN ---
Subjective Progress Note Date: 04/25/19 Principal diagnosis: CHF exacerbation Patient was seen and examined. No acute events overnight. Patient reports minimal changes in his breathing. He continues to complain of shortness of breath especially with exertion. Patient continues to complain of right foot pain. States that his PCP gave him a short course of prednisone, which she will finish today for possible gout. He denies any chest pain or palpitations. No nausea or vomiting. No fever or chills. Objective - Vital Signs Vital signs: Vital Signs Temp 98.1 F 04/25/19 08:35 Pulse 82 04/25/19 08:35 Resp 16 04/25/19 09:00 BP 105/53 04/25/19 08:35 Pulse Ox 92 L 04/25/19 09:00 Intake & Output 04/24/19 04/25/19 04/25/19 18:59 06:59 18:59 Intake Total 960 Output Total 3100 4200 Balance -2140 -4200 Weight 70.1 kg Intake: Oral 960 Output: Urine 3100 4200 Other: Voiding Method Bedside Commode Bedside Commode Bedside Commode # Voids 1 # Bowel Movements 1 1 - Exam General: [non toxic], [no distress], [appears at stated age] Derm: [warm], [dry] Head: [atraumatic], [normocephalic], [symmetric] Eyes: [EOMI], [no lid lag], [anicteric sclera] Mouth: [no lip lesion], [mucus membranes moist] Cardiovascular: [S1S2 reg], [irregular], [positive DP pulse bilateral], Lungs: [decreased breath sounds bilateral], [no rhonchi, no rales] , [no accessory muscle use] Abdominal: [soft], [ nontender to palpation], [no guarding], [no appreciable organomegaly] Ext: [no gross muscle atrophy], [no edema], [no contractures], [tenderness to palpation over the dorsal aspect of the foot] Neuro: [no focal neuro deficits] Psych: [Alert], [oriented], [appropriate affect] - Labs CBC & Chem 7: 04/24/19 05:43 04/24/19 05:43 Labs: Abnormal Lab Results - Last 24 Hours (Table) 04/25/19 Range/Units 06:23 Uric Acid 9.6 H (3.5-8.5) mg/dL Assessment and Plan Assessment: Assessment and Plan Left foot pain Thrush Acute exacerbation of systolic CHF Elevated BUN History of GI bleed Myeloproliferative disorder with leukocytosis CAD with recent RCA stent Atrial flutter Chronic conditions: Peripheral arterial disease, BPH, Pulmonary hypertension Possible gout? 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 Uric acid elevated at 9.6. Plans: Start colchicine. Follow PT recommendations. On physical exam. Plans: Nystatin swish and swallow BNP 11,000. Troponin less than 0.0122 with EKG showing atrial fibrillation with premature ventricular complexes. Cardiology consulted, recommends IV diuresis. Chest x-ray showing stable findings of CHF. Echocardiogram during previous admission shows EF 55-60% with moderate LVH. Chest ultrasound done for possible thoracocentesis. Pulmonology consulted, recommends no thoracocentesis at this time due to risk factors. Plan: Lasix IV decreased from 3 times a day dosing to twice a day dosing. Continue beta quan. Continue EARNEST inhibitor. Continue Aldactone. Daily weights and strict intake and output. Fluid restriction. Follow cardiology recommendations. Follow pulmonology recomm endations. BUN 25. Likely secondary to diuresis. Plan: Continue Lasix IV at this time. Daily BMP. Avoid other nephrotoxins. Plan: Continue Protonix 40 mg by mouth in the morning. Daily CBC. WBC count 53.6-51.4-52.1, platelet count [phone], hemoglobin 9.4-9.7-9.3. Leukocytosis likely stress-induced. Gets weekly Procrit injections at Dr. Miller's office. Plan: Daily CBC. Follow hematology consultation. Plan: Continue aspirin, Plavix, Lipitor and beta quan. Plan: No anticoagulation due to recurrent GI bleeds. Continue beta quan. Continue amiodarone. Telemetry monitoring. Follow cardiology consult. Patient admitted for CHF exacerbation. Minimal improvement since admission on IV Lasix. Lost 13 kg since admission. Cardiology on board. Patient is pending clinical improvement. Likely DC in 1-2 days.
[2019-04-25] MEDS: AMIODARONE 200 MG TAB PO SCH (19:57)
[2019-04-25] MEDS: ALPRAZolam 0.25 MG TAB PO SCH (19:57)
[2019-04-25] MEDS: ATORVASTATIN 40 MG TAB PO SCH (19:57)
[2019-04-25] MEDS: DOXAZOSIN 4 MG TAB PO SCH (19:59)
[2019-04-26] MEDS: PANTOPRAZOLE 40 MG TABLET PO SCH (06:04)
[2019-04-26] MEDS ORDERED: NAPROXEN 250 MG TAB PO STA ×2 (06:50→13:24)
[2019-04-26] MEDS: CLOPIDOGREL 75 MG TAB PO SCH (10:19)
[2019-04-26] MEDS: FUROSEMIDE 10 MG/ML 4 ML VIAL IV SCH (10:19)
[2019-04-26] MEDS: ASPIRIN 81 MG PO SCH (10:19)
[2019-04-26] MEDS: POTASSIUM CHLORIDE ER 20 MEQ TAB.ER PO SCH (10:19)
[2019-04-26] MEDS: METOPROLOL TARTRATE 50 MG TAB PO SCH ×2 (10:19→20:00)
[2019-04-26] MEDS: ALLOPURINOL 100 MG TAB PO SCH (10:19)
[2019-04-26] MEDS: NYSTATIN 100,000 UNIT/ML SUSP 500,000 UNIT/5 ML CUP PO SCH ×4 (10:20→22:27)
[2019-04-26 11:42] LABS: Calcium 9.4 mg/dL (8.4-10.2); Potassium 4.5 mmol/L (3.5-5.1)
[2019-04-26] MEDS: SPIRONOLACTONE 25 MG TAB PO SCH (13:05)
--- NOTE | 2019-04-26 13:09 | P.PN ---
Subjective This is a pleasant 79-year-old male past medical history significant for atrial fibrillation, diastolic heart failure coronary artery disease, myelodisplastic syndrome, dyslipidemia, pulmonary hypertension, peripheral vascular disease and chronic right-sided heart failure. He is seen and examined resting comfortably sitting up in the bed with family at the bedside. He denies any further significant shortness of breath. He is complaining of a pain he thinks his gout is acting up. Blood pressure 112/55 heart rate 66 afebrile maintaining oxygen saturation on room air. Laboratory data reviewed, sodium 133, potassium 4.5, creatinine 1.0. GENERAL: Well-appearing, well-nourished and in no acute distress. NECK: Supple without JVD or thyromegaly. LUNGS: Breath sounds clear to auscultation bilaterally. Respiration equal and unlabored. No wheezes, rales or rhonchi. Diminished bilaterally. HEART: Irregular rate and rhythm with systolic ejection murmur at the base, no rubs or gallops. S1 and S2 heard. EXTREMITIES: Normal range of motion, no edema. No clubbing or cyanosis. Peripheral pulses intact. ASSESSMENT Acute on chronic diastolic heart failure, improved Symptomatic atrial flutter/fibrillation unresponsive to from neurologic agents Leukocytosis History of coronary artery disease status post bypass grafting and PCI Dyslipidemia History of gout PLAN Transitioned to oral diuretics in the form of Lasix 60 mg in the morning, 40 mg at bedtime and resume his Aldactone at 25 mg daily. Decrease potassium supplementation to 10 daily. Continue amiodarone, aspirin, atorvastatin, Plavix, Lopressor as previously ordered. Continue to monitor in the hospital for another 24 hours, suspect he may be able to be discharged home tomorrow. Repeat BMP in the morning. Nurse Practitioner note has been reviewed, I agree with a documented findings and plan of care. Patient was seen and examined. Objective - Vital Signs Vital signs: Vital Signs Temp 98.3 F 04/26/19 08:05 Pulse 66 04/26/19 08:05 Resp 16 04/26/19 08:05 BP 125/58 04/26/19 08:05 Pulse Ox 96 04/26/19 08:05 Intake & Output 04/25/19 04/26/19 04/26/19 18:59 06:59 18:59 Output Total 525 800 Balance -525 -800 Weight 69.5 kg Output: Urine 525 800 Other: Voiding Method Bedside Commode Bedside Commode Bedside Commode # Voids 1 # Bowel Movements 1 - Labs CBC & Chem 7: 04/24/19 05:43 04/26/19 11:11 Labs: Abnormal Lab Results - Last 24 Hours (Table) 04/26/19 Range/Units 11:11 Sodium 133 L (137-145) mmol/L Chloride 94 L (98-107) mmol/L BUN 38 H (9-20) mg/dL Glucose 137 H (74-99) mg/dL
--- NOTE | 2019-04-26 13:49 | P.PN ---
Subjective Progress Note Date: 04/26/19 Principal diagnosis: CHF exacerbation Patient was seen and examined. No acute events overnight. Patient reports worsening pain. Received naproxen overnight with improvement in pain. Attempted colchicine but discontinued due to interaction with amiodarone. Patient reports some improvement in his breathing. He denies any chest pain or palpitations. No nausea or vomiting. No fever or chills. Objective - Vital Signs Vital signs: Vital Signs Temp 98.3 F 04/26/19 08:05 Pulse 66 04/26/19 11:45 Resp 16 04/26/19 11:45 BP 112/55 04/26/19 11:45 Pulse Ox 98 04/26/19 11:45 Intake & Output 04/25/19 04/26/19 04/26/19 18:59 06:59 18:59 Output Total 525 800 Balance -525 -800 Weight 69.5 kg Output: Urine 525 800 Other: Voiding Method Bedside Commode Bedside Commode Bedside Commode # Voids 1 # Bowel Movements 1 - Exam General: [non toxic], [no distress], [appears at stated age] Derm: [warm], [dry] Head: [atraumatic], [normocephalic], [symmetric] Eyes: [EOMI], [no lid lag], [anicteric sclera] Mouth: [no lip lesion], [mucus membranes moist] Cardiovascular: [S1S2 reg], [irregular], [positive DP pulse bilateral], Lungs: [decreased breath sounds bilateral], [no rhonchi, no rales] , [no accessory muscle use] Abdominal: [soft], [ nontender to palpation], [no guarding], [no appreciable organomegaly] Ext: [no gross muscle atrophy], [no edema], [no contractures], [tenderness to palpation over the dorsal aspect of the foot] Neuro: [no focal neuro deficits] Psych: [Alert], [oriented], [appropriate affect] - Labs CBC & Chem 7: 04/24/19 05:43 04/26/19 11:11 Labs: Abnormal Lab Results - Last 24 Hours (Table) 04/26/19 Range/Units 11:11 Sodium 133 L (137-145) mmol/L Chloride 94 L (98-107) mmol/L BUN 38 H (9-20) mg/dL Glucose 137 H (74-99) mg/dL Assessment and Plan Assessment: Assessment and Plan Left foot pain Thrush Acute exacerbation of systolic CHF Elevated BUN History of GI bleed Myeloproliferative disorder with leukocytosis CAD with recent RCA stent Atrial flutter Chronic conditions: Peripheral arterial disease, BPH, Pulmonary hypertension Possible gout? 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 Uric acid elevated at 9.6. Plans: We'll continue prednisone and naproxen as needed. Follow PT recommendations. On physical exam. Plans: Nystatin swish and swallow BNP 11,000. Troponin less than 0.0122 with EKG showing atrial fibrillation with premature ventricular complexes. Cardiology consulted, recommends transition to oral diuresis. Chest x-ray showing stable findings of CHF. Echocardiogram during previous admission shows EF 55-60% with moderate LVH. Chest ultrasound done for possible thoracocentesis. Pulmonology consulted, recommends no thoracocentesis at this time due to risk factors. Plan: Lasix IV switched to oral by cardiology. Continue beta quan. Continue EARNEST inhibitor. Continue Aldactone. Daily weights and strict intake and output. Fluid restriction. Follow cardiology recommendations. Follow pulmonology recommendations. BUN 38. Likely secondary to diuresis. Plan: Daily BMP. Avoid other nephrotoxins. Plan: Continue Protonix 40 mg by mouth in the morning. Daily CBC. WBC count 53.6-51.4-52.1, platelet count [phone], hemoglobin 9.4-9.7-9.3. Leukocytosis likely stress-induced. Gets weekly Procrit injections at Dr. Miller's office. Plan: Daily CBC. Follow hematology consultation. Plan: Continue aspirin, Plavix, Lipitor and beta quan. Plan: No anticoagulation due to recurrent GI bleeds. Continue beta quan. Continue amiodarone. Telemetry monitoring. Follow cardiology consult. Patient admitted for CHF exacerbation. Has shown improvement in breathing. Lasix IV transition to oral. Observation over the next 24 hours. Likely DC tomorrow.
[2019-04-26] MEDS: predniSONE 20 MG TAB PO SCH (14:00)
[2019-04-26] MEDS: AMIODARONE 200 MG TAB PO SCH (20:00)
[2019-04-26] MEDS: ALPRAZolam 0.25 MG TAB PO SCH (20:00)
[2019-04-26] MEDS: ATORVASTATIN 40 MG TAB PO SCH (20:00)
[2019-04-26] MEDS ORDERED: FUROSEMIDE 40 MG TAB PO SCH (21:00)
[2019-04-26] MEDS: DOXAZOSIN 4 MG TAB PO SCH (22:27)
[2019-04-27] MEDS: PANTOPRAZOLE 40 MG TABLET PO SCH (06:09)
[2019-04-27 06:10] VITALS: RESP 18
[2019-04-27 07:14] LABS: Anisocytosis Marked; HCT 31.9 % (39.0-53.0); HGB 9.2 gm/dL (13.0-17.5); Hypochromasia Marked; MCH 25.9 pg (25.0-35.0); MCHC 28.8 g/dL (31.0-37.0); Macrocytosis Slight; Mean Platelet Volume 9.3; Microcytosis Slight; Platelet Count 328 k/uL (150-450); Poikilocytosis Marked; RBC 3.55 m/uL (4.30-5.90)
[2019-04-27 07:15] LABS: RDW 25.6 % (11.5-15.5)
[2019-04-27 07:17] LABS: African American GFR (CKD) >90 (>60 ml/min/1.73 sqM); Anion Gap 9 mmol/L; Blood Urea Nitrogen 41 mg/dL (9-20); Calcium 9.5 mg/dL (8.4-10.2); Carbon Dioxide 30 mmol/L (22-30); Chloride 95 mmol/L (98-107); Glucose 154 mg/dL (74-99); Sodium 134 mmol/L (137-145)
[2019-04-27 08:33] LABS: Band Neutrophils % 3 %; Eosinophils # (M) 0.51 k/uL (0-0.7); Metamyelocytes % 2 %; Monocytes # (M) 0.51 k/uL (0-1.0); Myelocytes % 4 %; Neutrophils % (M) 89 %; Nucleated Red Blood Cells 1 /100 WBC (0-0); Total Cells Counted 200
[2019-04-27 08:35] LABS: Lymphocytes # (M) 1.01 k/uL (1.0-4.8); Metamyelocytes # (M) 1.01 k/uL (0); Myelocytes # (M) 2.03 k/uL (0); WBC 50.7 k/uL (3.8-10.6)
[2019-04-27] MEDS ORDERED: POTASSIUM CHLORIDE ER 10 MEQ TAB.ER.PRT PO SCH (09:00)
[2019-04-27] MEDS ORDERED: FUROSEMIDE 20 MG TAB PO SCH (09:00)
[2019-04-27] MEDS: CLOPIDOGREL 75 MG TAB PO SCH (09:38)
[2019-04-27] MEDS: ALLOPURINOL 100 MG TAB PO SCH (09:38)
[2019-04-27] MEDS: ASPIRIN 81 MG PO SCH (09:38)
[2019-04-27] MEDS: METOPROLOL TARTRATE 50 MG TAB PO SCH (09:39)
[2019-04-27] MEDS: SPIRONOLACTONE 25 MG TAB PO SCH (09:39)
[2019-04-27] MEDS: predniSONE 20 MG TAB PO SCH (09:40)
[2019-04-27] MEDS: NYSTATIN 100,000 UNIT/ML SUSP 500,000 UNIT/5 ML CUP PO SCH ×3 (09:40→17:10)
--- NOTE | 2019-04-27 11:00 | XR ---
EXAMINATION TYPE: XR chest 2V DATE OF EXAM: 04/27/2019 COMPARISON: Prior chest x-ray 04/24/2019 HISTORY: Shortness of breath TECHNIQUE: Frontal and lateral views of the chest are obtained. FINDINGS: Patient is post median sternotomy. The aorta is dense. Heart remains enlarged. Interstitiu m appears improved in the interval. There is no evident pneumothorax. Calcification of the left lung base persists. There is again noted blunting of the right costophrenic angle. IMPRESSION: There is improvement in volume status, aeration.
--- NOTE | 2019-04-27 14:51 | P.DS ---
Providers Date of admission: 04/20/19 20:23 Expected date of discharge: 04/27/19 Attending physician: Pj Avery MD Consults: 04/20/19 20:21 Consult Physician Routine Consulting Provider: Armando Miller Consult Reason/Comments: heme/onc Do you want consulting provider notified?: Yes Consult Physician Routine Consulting Provider: Tiffany Pelayo Consult Reason/Comments: chf Do you want consulting provider notified?: Yes 04/22/19 17:11 Consult Physician Routine Consulting Provider: Bernarda King Consult Reason/Comments: Pleural effusion Do you want consulting provider notified?: Yes Primary care physician: Fuller Hospital Course: 79-year-old male with PMH of atrial fibrillation previously on Xarelto, discontinued due to GI bleed, myeloproliferative disease, CAD, PAD, diastolic CHF, hyperlipidemia and hypertension presents the ED for worsening shortness of breath or lower extremity edema. BNP found to be 11,000, admitted for CHF exacerbation with cardiology on consult. Patient knows of breath was thought to be acute exacerbation of systolic CHF. Troponin was less than 0.0122 with EKG showing atrial fibrillation with premature ventricular complexes. Patient was initially diuresed with Lasix 40 mg IV 3 times a day which was switched to twice a day and finally transitioned to diuresis by mouth. Cardiology was consulted and recommended continuation of treatment. Serial chest x-rays were performed which showed improvement in aeration. Patient had an echocardiogram during his previous admission that showed EF 55-60% with moderate LVH. Chest ultrasound was done for possible thoracocentesis. Pulmonology was consulted and recommended IV diuresis and no thoracocentesis. Patient's beta quan and EARNEST inhibitor including Aldactone were all continued. Patient was noted to have left foot pain during his admission. Uric acid was elevated at 9.6. X-ray of the foot showed osteoarthritis of the first MP joint with sclerosis of the subtalar joint. Patient was continued on prednisone 40 mg by mouth daily, to be tapered with his PCP. He was also given naproxen as needed for pain. Patient developed oral thrush which was treated with nystatin swish and swallow. Patient was noted to have an elevated BUN throughout his hospitalization. BUN on discharge was 41. This was likely secondary to diuresing with Lasix. He was advised to obtain a BMP within 3 days of discharge. Otherwise, his home medications were resumed for CAD, atrial flutter, BPH. Patient was seen and examined prior to discharge. No acute events overnight. Patient reports improvement in his breathing. He denies any chest pain or palpitations. No nausea or vomiting. No fever or chills. Patient reports left foot pain is somewhat better after taking naproxen and prednisone. General: [non toxic], [no distress], [appears at stated age] Derm: [warm], [dry] Head: [atraumatic], [normocephalic], [symmetric] Eyes: [EOMI], [no lid lag], [anicteric sclera] Mouth: [no lip lesion], [mucus membranes moist] Cardiovascular: [S1S2 reg], [irregular], [positive DP pulse bilateral], Lungs: [decreased breath sounds bilateral], [no rhonchi, no rales] , [no accessory muscle use] Abdominal: [soft], [ nontender to palpation], [no guarding], [no appreciable organomegaly] Ext: [no gross muscle atrophy], [no edema], [no contractures], [tenderness to palpation over the dorsal aspect of the foot, improved] Neuro: [no focal neuro deficits] Psych: [Alert], [oriented], [appropriate affect] Assessment and Plan Left foot pain Thrush Acute exacerbation of systolic CHF Elevated BUN History of GI bleed Myeloproliferative disorder with leukocytosis CAD with recent RCA stent Atrial flutter Chronic conditions: Peripheral arterial disease, BPH, Pulmonary hypertension Possible gout? 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 Uric acid elevated at 9.6. Plans: Continue prednisone 40 mg by mouth daily, to be tapered by PCP. Naproxen as needed for pain. On physical exam. Plans: Nystatin swish and swallow BNP 11,000. Troponin less than 0.0122 with EKG showing atrial fibrillation with premature ventricular complexes. Cardiology consulted, recommends transition to oral diuresis. Chest x-ray showing stable findings of CHF. Echocardiogram during previous admission shows EF 55-60% with moderate LVH. Chest ultrasound done for possible thoracocentesis. Pulmonology consulted, recommends no thoracocentesis at this time due to risk factors. Plan: Lasix IV switched to oral by cardiology. Continue beta quan. Continue EARNEST inhibitor. Continue Aldactone. Daily weights and strict intake and output. Fluid restriction. Follow cardiology recommendations. Follow pulmonology recomme ndations. BUN 38-41. Likely secondary to diuresis. Plan: Daily BMP. Avoid other nephrotoxins. Plan: Continue Protonix 40 mg by mouth in the morning. Daily CBC. WBC count 53.6-51.4-52.1-50.7, platelet count [phone], hemoglobin 9.4-9.7-9.3-9.2. Leukocytosis likely stress-induced. Gets weekly Procrit injections at Dr. Miller's office. Plan: Daily CBC. Follow hematology consultation. Plan: Continue aspirin, Plavix, Lipitor and beta quan. Plan: No anticoagulation due to recurrent GI bleeds. Continue beta quan. Continue amiodarone. Telemetry monitoring. Follow cardiology consult. Patient admitted for CHF exacerbation. Has shown improvement in breathing. Lasix IV transition to oral. Cleared by cardiology for discharge. He is to follow-up at [facility] for his scheduled procedure for atrial fibrillation ablation. Pertinent Studies: Foot x-ray, chest x-ray, chest ultrasound Patient Condition at Discharge: Stable Plan - Discharge Summary New Discharge Prescriptions: New Furosemide [Lasix] 40 mg PO HS #30 tab Furosemide [Lasix] 60 mg PO DAILY #30 tab Naproxen [Naprosyn] 375 mg PO Q12HR #30 tablet Continue Atorvastatin [Lipitor] 40 mg PO HS Spironolactone [Aldactone] 25 mg PO BID Aspirin 81 mg PO DAILY #30 chew Clopidogrel [Plavix] 75 mg PO DAILY #30 tab Pantoprazole Sodium [Protonix] 40 mg PO DAILY Metoprolol Tartrate [Lopressor] 50 mg PO BID rOPINIRole HCL [Requip] 1 mg PO HS Terazosin [Hytrin] 5 mg PO HS Allopurinol [Zyloprim] 100 mg PO DAILY Epoetin Newton [Procrit] 40,000 units IV WEEKLY predniSONE 40 mg PO DAILY tab Amiodarone [Cordarone] 200 mg PO HS Discontinued Furosemide [Lasix] 60 mg PO BID Discharge Medication List Atorvastatin [Lipitor] 40 mg PO HS 09/27/14 [History] Spironolactone [Aldactone] 25 mg PO BID 11/12/17 [History] Aspirin 81 mg PO DAILY #30 chew 04/07/18 [Rx] Clopidogrel [Plavix] 75 mg PO DAILY #30 tab 04/07/18 [Rx] Pantoprazole Sodium [Protonix] 40 mg PO DAILY 07/14/18 [History] Metoprolol Tartrate [Lopressor] 50 mg PO BID 02/12/19 [History] rOPINIRole HCL [Requip] 1 mg PO HS 02/12/19 [History] Terazosin [Hytrin] 5 mg PO HS 02/28/19 [History] Allopurinol [Zyloprim] 100 mg PO DAILY 03/31/19 [History] Epoetin Newton [Procrit] 40,000 units IV WEEKLY 04/03/19 [History] predniSONE 40 mg PO DAILY tab 04/04/19 [Rx] Amiodarone [Cordarone] 200 mg PO HS 04/20/19 [History] Furosemide [Lasix] 40 mg PO HS #30 tab 04/27/19 [Rx] Furosemide [Lasix] 60 mg PO DAILY #30 tab 04/27/19 [Rx] Naproxen [Naprosyn] 375 mg PO Q12HR #30 tablet 04/27/19 [Rx] Follow up Appointment(s)/Referral(s): Leon Franklin MD [Primary Care Provider] - 1-2 days Tiffany Pelayo MD [Family Provider] - 05/05/19 (Office will call with follow up appointment. ) Ambulatory/Diagnostic Orders: Basic Metabolic Panel [LAB.AMB] Location: None Selected Complete Blood Count w/diff [LAB.AMB] Location: None Selected Patient Instructions/Handouts: Heart Failure (DC), Low-Sodium Diet (DC) Activity/Diet/Wound Care/Special Instructions: [facility] [phone] Discharge Disposition: HOME SELF-CARE
[2019-04-27 15:06] VITALS: TEMP 97.6
[2019-04-27 15:08] VITALS: BP 129/60; PULSE 68
--- NOTE | 2019-04-27 19:41 | PN ---
PROGRESS NOTE Mr. Burk is a gentleman with CAD, prior bypass surgery and PCI. He has myelodysplastic syndrome. He has persistent atrial fibrillation and is unable to be anticoagulated because of GI bleeding. Since his admission to the hospital, he has improved a lot. His edema is less. His weight is down. His breathing is easier. His atrial fibrillation rate is well controlled. On his current medical regimen, which is oral Lasix 60 mg in the morning and 40 mg in the evening, he is doing better. Weight is good. Edema has improved. I am recommending that we increase activity and discharge him today. I spoke to [facility], where he is supposed to have a Watchman Device for his atrial fibrillation. I could not reach Dr. Bermudez, but I spoke to the coordinator and she promised to have a phone call to him sometime later in the week, and they will try to move up the scheduled Watchman Device and the CT scan prior to the device sooner than scheduled. She will make an effort to do that and will call him later this week. I communicated this to the patient. Vitals are stable. Blood pressure is 120/70. Pulse rate is 70, irregular. JVD 1 cm. No carotid bruit. S1, S2 heard normally. Short systolic murmur at the base is noted. Lungs are clear. Abdomen is soft. Lower extremity edema has resolved. Plan is to continue current medications and discharge him today. MMODL / FAIZAN: [id number] /
== END 2019-04-27 17:20 | disposition home health service (06) | DRG 292 ==
LOC: EC 17:22 → 3SCARD 20:23
PROVIDERS: ADMIT Internal Medicine; ATTEND Internal Medicine
DX: I11.0 Hypertensive heart disease with heart failure (principal); B37.0 Candidal stomatitis; D47.1 Chronic myeloproliferative disease; I48.92 Unspecified atrial flutter; I50.23 Acute on chronic systolic (congestive) heart failure; I50.82 Biventricular heart failure; D69.6 Thrombocytopenia, unspecified; I27.29 Other secondary pulmonary hypertension; E83.51 Hypocalcemia; I48.2 Chronic atrial fibrillation; D64.9 Anemia, unspecified; I73.9 Peripheral vascular disease, unspecified; D72.829 Elevated white blood cell count, unspecified; E78.5 Hyperlipidemia, unspecified; I25.10 Atherosclerotic heart disease of native coronary artery without angina pectoris; I25.2 Old myocardial infarction; I49.3 Ventricular premature depolarization; K21.9 Gastro-esophageal reflux disease without esophagitis; K22.70 Barrett's esophagus without dysplasia; M10.9 Gout, unspecified; M19.90 Unspecified osteoarthritis, unspecified site; N40.0 Benign prostatic hyperplasia without lower urinary tract symptoms; T50.2X5A Adverse effect of carbonic-anhydrase inhibitors, benzothiadiazides and other diuretics, initial encounter; M79.671 Pain in right foot; M79.672 Pain in left foot; R01.1 Cardiac murmur, unspecified; R94.4 Abnormal results of kidney function studies; Z86.14 Personal history of Methicillin resistant Staphylococcus aureus infection; Z90.49 Acquired absence of other specified parts of digestive tract; Z95.1 Presence of aortocoronary bypass graft; Z87.891 Personal history of nicotine dependence; Z15.89 Genetic susceptibility to other disease; Z79.02 Long term (current) use of antithrombotics/antiplatelets; Z79.82 Long term (current) use of aspirin; Z79.899 Other long term (current) drug therapy; Z79.52 Long term (current) use of systemic steroids; Z82.49 Family history of ischemic heart disease and other diseases of the circulatory system; Z80.42 Family history of malignant neoplasm of prostate
CPT/HCPCS: 36415; 71045; 71046; 76604; 80048; 80053; 82550; 82728; 83540; 83550; 83735; 83880; 84484; 84550; 85025; 85027; 85610; 85730; 93005; 94760; 99285

== ENCOUNTER 2019-05-03 13:31 | Inpatient (IN) | payer MEDICARE ==
[2019-05-03] MEDS: SODIUM CHLORIDE 0.9% 500 ML 500 ML IV ONE ×5 (13:50→15:25)
[2019-05-03 14:17] LABS: Albumin 2.9 g/dL (3.5-5.0); Calcium 7.8 mg/dL (8.4-10.2); Potassium 5.4 mmol/L (3.5-5.1); Total Protein 5.3 g/dL (6.3-8.2)
[2019-05-03 14:20] LABS: INR 1.4 (<1.2); Partial Thromboplastin Time 30.7 sec (22.0-30.0); Prothrombin Time 14.3 sec (9.0-12.0)
[2019-05-03 14:26] LABS: Anisocytosis Marked; HCT 28.2 % (39.0-53.0); HGB 8.5 gm/dL (13.0-17.5); Hypochromasia Marked; MCH 26.8 pg (25.0-35.0); MCHC 30.2 g/dL (31.0-37.0); MCV 88.8 fL (80.0-100.0); Macrocytosis Slight; Mean Platelet Volume 9.6; Microcytosis Slight; Platelet Count 245 k/uL (150-450); Poikilocytosis Marked; RBC 3.17 m/uL (4.30-5.90); WBC 35.6 k/uL (3.8-10.6)
[2019-05-03 14:30] LABS: RDW 26.7 % (11.5-15.5)
[2019-05-03] MEDS ORDERED: PIPERACILLIN-TAZOBACTAM 3.375 GM in SODIUM CHLORIDE 0.9% 100 ML IVPB STA (14:35)
[2019-05-03 14:37] LABS: Band Neutrophils % 7 %; Eosinophils # (M) 0.71 k/uL (0-0.7); Lymphocytes # (M) 0.71 k/uL (1.0-4.8); Metamyelocytes # (M) 0.36 k/uL (0); Metamyelocytes % 1 %; Myelocytes # (M) 0.36 k/uL (0); Myelocytes % 1 %; Neutrophils % (M) 87 %; Nucleated Red Blood Cells 0 /100 WBC (0-0); Ovalocytes Present; Total Cells Counted 100
[2019-05-03 14:38] LABS: Polychromasia Present
--- NOTE | 2019-05-03 15:20 | XR ---
EXAMINATION TYPE: XR chest 1V portable DATE OF EXAM: 05/03/2019 Comparison: 04/27/2019 Clinical History: 79 year-old male fever Findings: Multifocal interstitial and patchy opacities more confluent in the medial right base. Heart borderlin e in size. Median sternotomy wires are present. Impression: Multifocal patchy interstitial opacities most confluent in the medial right base. Correlate for multi focal pneumonia, possible superimposed CHF with interstitial pulmonary edema.
--- NOTE | 2019-05-03 15:23 | XR ---
EXAMINATION TYPE: XR tibia fibula RT 2 views, XR foot complete RT 3 views DATE OF EXAM: 05/03/2019 COMPARISON: NONE HISTORY: 79-year-old male right leg and foot pain FINDINGS: Right tibia/fibula: Diffuse vascular calcifications suggest underlying diabetes in her chronic kidney disease. Mild gener alized soft tissue swelling is present. No soft tissue gas is seen. No acute fracture. Right foot: Mild generalized soft tissue swelling. There is hallux valgus deformity with large bunion. Some soft tissue calcifications along the medial aspect of the first metatarsal head with mild to moderate dege nerative change first MTP joint with an area of focal juxta-articular erosions at the medial first pr oximal phalangeal base. Type II accessory navicular noted. Chronic appearing deformity to the middle phalanx of the fourth toe. IMPRESSION: 1. Right tibia/fibula: No acute osseous abnormality seen. Diffuse vascular calcifications suggest und erlying diabetes and/or chronic kidney disease. 2. Right foot: Hallux valgus deformity with bunion but with soft tissue calcifications here and a foc al area of juxta-articular erosion at the first proximal phalangeal base. Correlate for tophaceous go ut. Type II accessory navicular which can become symptomatic in some patients.
[2019-05-03] MEDS ORDERED: NALOXONE 0.4 MG/ML 1 ML VIAL IV PRN (15:53)
--- NOTE | 2019-05-03 15:57 | ED ---
General Adult HPI - General Chief complaint: Recheck/Abnormal Lab/Rx Stated complaint: poss sepsis Time Seen by Provider: 05/03/19 13:39 Source: patient, EMS Mode of arrival: EMS Limitations: no limitations - History of Present Illness Initial comments: 79-year-old male with multiple medical problems presenting for evaluation of right leg and foot pain. Patient states he has history of alcoholism, congestive heart failure. Recent admission with congestive heart failure, was placed on increased doses of diuretics. He's been taking nonsteroidal anti- inflammatories for right great toe gout exacerbation. He is found to be hypotensive by EMS initially in the 60s systolic. No reported fever. No chest pain, states dyspnea is improved from previous admission. - Related Data Home Medications Medication Instructions Recorded Confirmed Atorvastatin [Lipitor] 40 mg PO HS 09/27/14 05/03/19 Spironolactone [Aldactone] 25 mg PO BID 11/12/17 05/03/19 Pantoprazole Sodium [Protonix] 40 mg PO DAILY 07/14/18 05/03/19 Metoprolol Tartrate [Lopressor] 50 mg PO BID 02/12/19 05/03/19 rOPINIRole HCL [Requip] 1 mg PO HS 02/12/19 05/03/19 Terazosin [Hytrin] 5 mg PO HS 02/28/19 05/03/19 Allopurinol [Zyloprim] 100 mg PO DAILY 03/31/19 05/03/19 Epoetin Newton [Procrit] 40,000 units IV WEEKLY 04/03/19 05/03/19 Amiodarone [Cordarone] 200 mg PO HS 04/20/19 05/03/19 Previous Rx's Medication Instructions Recorded Aspirin 81 mg PO DAILY #30 chew 04/07/18 Clopidogrel [Plavix] 75 mg PO DAILY #30 tab 04/07/18 predniSONE 40 mg PO DAILY tab 04/04/19 Furosemide [Lasix] 40 mg PO HS #30 tab 04/27/19 Furosemide [Lasix] 60 mg PO DAILY #30 tab 04/27/19 Naproxen [Naprosyn] 375 mg PO Q12HR #30 tablet 04/27/19 Allergies Allergy/AdvReac Type Severity Reaction Status Date / Time No Known Allergies Allergy Verified 04/20/19 18:04 Review of Systems ROS Statement: Those systems with pertinent positive or pertinent negative responses have been documented in the HPI. ROS Other: All systems not noted in ROS Statement are negative. Past Medical History Past Medical History: Atrial Flutter, Blood Disorder, Coronary Artery Disease (CAD), Heart Failure, GERD/Reflux, GI Bleed, Hyperlipidemia, Hypertension, Myocardial Infarction ([place]), Prostate Disorder, Vascular Disorder Additional Past Medical History / Comment(s): myeloproliferative disorder(leukocytosis and thrombocytosis), esophagitis, severe PAD, severe pulmonary hypertension , right-sided heart failure with severe pulmonary hypertension, BPH, Exercise intolerance Last Myocardial Infarction Date:: 2017 History of Any Multi-Drug Resistant Organisms: Acinetobacter (MDRO), MRSA Date of last positivie culture/infection: 05/12/18-MRSA MDRO Source:: Foot-MRSA Past Surgical History: Cholecystectomy, Coronary Bypass/CABG, Heart Catheterization, Hernia Repair Additional Past Surgical History / Comment(s): Cardiac catheterization on 10/04/2014, right femoral artery/common femoral artery endarterectomy. 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 tom inguinal hernia repair, coronary artery bypass surgery, EGD, colonoscopy. Cath with PCI to RCA 02/04/19 Past Anesthesia/Blood Transfusion Reactions: No Reported Reaction Past Psychological History: No Psychological Hx Reported Smoking Status: Former smoker Past Alcohol Use History: Rare Past Drug Use History: None Reported - Past Family History Brother(s) Family Medical History: Cancer Additional Family Medical History / Comment(s): 2 with lung and 1 with prostate Mother Family Medical History: Myocardial Infarction ([place]) Father History Unknown: Yes Additional Family Medical History / Comment(s): AT AGE 83 FROM "HARDENING OF THE ARTERIES" General Exam Limitations: no limitations General appearance: alert, in no apparent distress, cachectic Head exam: Present: atraumatic, normocephalic Eye exam: Present: normal appearance, PERRL ENT exam: Present: mucous membranes dry Neck exam: Present: normal inspection. Absent: tenderness, meningismus Respiratory exam: Present: normal lung sounds bilaterally. Absent: respiratory distress, wheezes Cardiovascular Exam: Present: regular rate, irregular rhythm GI/Abdominal exam: Present: soft, distended. Absent: tenderness, guarding, rebound Extremities exam: Present: calf tenderness (Patient has erythema to the knee on the right, pulses are found with Doppler signal. He has right great toe to 5, he has cyanotic third toe concern for infection with ascending cellulitis.), other Neurological exam: Present: alert, oriented X3, CN II-XII intact. Absent: motor sensory deficit Psychiatric exam: Present: normal affect, normal mood Skin exam: Present: warm, dry Course Vital Signs 05/03/19 05/03/19 05/03/19 13:45 13:55 15:52 Temperature 98.1 F Pulse Rate 81 73 90 Respiratory 18 18 16 Rate Blood Pressure 75/49 83/52 90/56 O2 Sat by Pulse 93 L 94 L 100 Oximetry 05/03/19 16:25 Temperature Pulse Rate 88 Respiratory 14 Rate Blood Pressure 98/56 O2 Sat by Pulse 96 Oximetry EKG Findings - EKG Comments: EKG Findings:: EKG: Atrial fibrillation, rightward axis, nonspecific ST segment changes in the lateral precordium with T-wave inversion. This is unchanged compared to prior Rate of 88, QRS duration 100, QTC 469. Medical Decision Making - Medical Decision Making 79-year-old male, presenting with right lower extremity pain. Found to be hypotensive by EMS. He does have infection in the third toe on the right with some ascending cellulitis. He has diminished pulses but these are appreciated with Doppler signal. He receives IV hydration in the emergency department although he does have history of congestive heart failure with recent admission so fluids are given incrementally with improvement in blood pressure. He has s ignificant laboratory abnormalities noted which appear chronic, most acute is acute kidney injury with creatinine 2 from baseline of 1. He was evaluated by the admitting physician Dr. Cid in the emergency department. He will be placed in the ICU for close monitoring, case is discussed with Dr. Matthews who will admit to ICU. - Lab Data Result diagrams: 05/03/19 13:48 05/03/19 13:48 Lab Results 05/03/19 05/03/19 05/03/19 Range/Units 13:48 13:48 13:48 WBC 35.6 H (3.8-10.6) k/uL RBC 3.17 L (4.30-5.90) m/uL Hgb 8.5 L (13.0-17.5) gm/dL Hct 28.2 L (39.0-53.0) % MCV 88.8 (80.0-100.0) fL MCH 26.8 (25.0-35.0) pg MCHC 30.2 L (31.0-37.0) g/dL RDW 26.7 H (11.5-15.5) % Plt Count 245 (150-450) k/uL Neutrophils % (Manual) 87 % Band Neutrophils % 7 % Lymphocytes % (Manual) 2 % Eosinophils % (Manual) 2 % Metamyelocytes % 1 % Myelocytes % 1 % Neutrophils # (Manual) 33.40 H (1.3-7.7) k/uL Lymphocytes # (Manual) 0.71 L (1.0-4.8) k/uL Eosinophils # (Manual) 0.71 H (0-0.7) k/uL Metamyelocytes # (Man) 0.36 H (0) k/uL Myelocytes # (Manual) 0.36 H (0) k/uL Nucleated RBCs 0 (0-0) /100 WBC Manual Slide Review Performed Polychromasia Present Hypochromasia Marked Poikilocytosis Marked Anisocytosis Marked Microcytosis Slight Macrocytosis Slight Ovalocytes Present PT (9.0-12.0) sec INR (<1.2) APTT (22.0-30.0) sec Sodium 131 L (137-145) mmol/L Potassium 5.4 H (3.5-5.1) mmol/L Chloride 100 (98-107) mmol/L Carbon Dioxide 20 L (22-30) mmol/L Anion Gap 11 mmol/L BUN 86 H (9-20) mg/dL Creatinine 2.12 H (0.66-1.25) mg/dL Est GFR (CKD-EPI)AfAm 33 (>60 ml/min/1.73 sqM) Est GFR (CKD-EPI)NonAf 29 (>60 ml/min/1.73 sqM) Glucose 136 H (74-99) mg/dL Plasma Lactic Acid Moe 1.6 (0.7-2.0) mmol/L Calcium 7.8 L (8.4-10.2) mg/dL Total Bilirubin 2.0 H (0.2-1.3) mg/dL AST 25 (17-59) U/L ALT 27 (21-72) U/L Alkaline Phosphatase 134 H (38-126) U/L Total Protein 5.3 L (6.3-8.2) g/dL Albumin 2.9 L (3.5-5.0) g/dL 05/03/19 Range/Units 13:48 WBC (3.8-10.6) k/uL RBC (4.30-5.90) m/uL Hgb (13.0-17.5) gm/dL Hct (39.0-53.0) % MCV (80.0-100.0) fL MCH (25.0-35.0) pg MCHC (31.0-37.0) g/dL RDW (11.5-15.5) % Plt Count (150-450) k/uL Neutrophils % (Manual) % Band Neutrophils % % Lymphocytes % (Manual) % Eosinophils % (Manual) % Metamyelocytes % % Myelocytes % % Neutrophils # (Manual) (1.3-7.7) k/uL Lymphocytes # (Manual) (1.0-4.8) k/uL Eosinophils # (Manual) (0-0.7) k/uL Metamyelocytes # (Man) (0) k/uL Myelocytes # (Manual) (0) k/uL Nucleated RBCs (0-0) /100 WBC Manual Slide Review Polychromasia Hypochromasia Poikilocytosis Anisocytosis Microcytosis Macrocytosis Ovalocytes PT 14.3 H (9.0-12.0) sec INR 1.4 H (<1.2) APTT 30.7 H (22.0-30.0) sec Sodium (137-145) mmol/L Potassium (3.5-5.1) mmol/L Chloride (98-107) mmol/L Carbon Dioxide (22-30) mmol/L Anion Gap mmol/L BUN (9-20) mg/dL Creatinine (0.66-1.25) mg/dL Est GFR (CKD-EPI)AfAm (>60 ml/min/1.73 sqM) Est GFR (CKD-EPI)NonAf (>60 ml/min/1.73 sqM) Glucose (74-99) mg/dL Plasma Lactic Acid Moe (0.7-2.0) mmol/L Calcium (8.4-10.2) mg/dL Total Bilirubin (0.2-1.3) mg/dL AST (17-59) U/L ALT (21-72) U/L Alkaline Phosphatase (38-126) U/L Total Protein (6.3-8.2) g/dL Albumin (3.5-5.0) g/dL Disposition Clinical Impression: Cellulitis of right lower extremity, HIREN (acute kidney injury), Hyponatremia Disposition: ADMITTED IP TO THIS [facility] Condition: Stable Is patient prescribed a controlled substance at d/c from ED?: No Decision to Admit Reason: Admit from EC Decision Date: 05/03/19 Decision Time: 15:56
[2019-05-03] MEDS ORDERED: VANCOMYCIN IV PER PHARMACY 1 EACH MISC MISCELLANE PRN (16:05)
--- NOTE | 2019-05-03 16:18 | US ---
EXAMINATION TYPE: US venous doppler duplex LE RT DATE OF EXAM: 05/03/2019 1:42 PM COMPARISON: NONE CLINICAL HISTORY: 79-year-old male Pain. Right foot pain, no h/o DVT SIDE PERFORMED: right TECHNIQUE: The lower extremity deep venous system is examined utilizing real time linear array sonog golden with graded compression, doppler sonography and color-flow sonography. FINDINGS: VESSELS IMAGED: External Iliac Vein (EIV) Common Femoral Vein Deep Femoral Vein Greater Saphenous Vein * Femoral Vein Popliteal Vein Small Saphenous Vein * Proximal Calf Veins (* superficial vessels) Spindle Setter notes:shadowing from arterial calcification seen during exam Right Leg: Appears negative for DVT IMPRESSION: No evidence for DVT within the right lower extremity imaged from the groin to the knee.
--- NOTE | 2019-05-03 16:21 | P.HPIM ---
History of Present Illness H&P Date: 05/03/19 Chief Complaint: Right posterior leg pain Patient is 79-year-old male with a PMH of chronic atrial fibrillation (previously on Xarelto, DC'd due to GI bleeding), myeloproliferative disease, coronary artery disease, peripheral artery disease and prior peripheral revascularization, diastolic CHF, hyperlipidemia, hypertension and gout with recent flare who presented to the ED via EMS with chief complaint of posterior right foot and calf pain that began approximately 3 days ago. The patient reports the pain as severe intermittent and sharp and also mentioned the appearance of some blisters and increased mild redness on that leg. The patient denies any subjective fevers chills or night sweats, denies any chest pain or worsening shortness of breath. The patient reports increasing lightheadedness and fatigue and reports an inability to ambulate secondary to pain. Patient reports having a scheduled appointment for Watchman procedure for his chronic Afib onjuly at [facility] Review of records indicates the patient was recently here and discharged 04/27/19 after being admitted with acute systolic CHF exacerbation and acute gout flare where he was diuresed aggressively and discharged home on Lasix and naproxen respectively. On presentation the ER the patient was noted to be hypotensive VS 75/49, a comprehensive workup WBC count was 35.6 hemoglobin 8.5, serum sodium 131, potassium 5.4, creatinine 2.12, serum bicarb 20. X-rays of the right lower extremity was consistent with gout. chest x-ray multifocal patchy interstitial opacities most confluent in the medial right base correlate for multifocal pneumonia. Left lower extremity venous was negative for DVT Review of Systems Pertinent positives per HPI all other system otherwise negative Past Medical History Past Medical History: Atrial Flutter, Blood Disorder, Coronary Artery Disease (CAD), Heart Failure, GERD/Reflux, GI Bleed, Hyperlipidemia, Hypertension, Myocardial Infarction ([place]), Prostate Disorder, Vascular Disorder Additional Past Medical History / Comment(s): myeloproliferative disorder( leukocytosis and thrombocytosis), esophagitis, severe PAD, severe pulmonary hypertension , right-sided heart failure with severe pulmonary hypertension, BPH, Exercise intolerance Last Myocardial Infarction Date:: 2017 History of Any Multi-Drug Resistant Organisms: Acinetobacter (MDRO), MRSA Date of last positivie culture/infection: 05/12/18-MRSA MDRO Source:: Foot-MRSA Past Surgical History: Cholecystectomy, Coronary Bypass/CABG, Heart Catheterization, Hernia Repair Additional Past Surgical History / Comment(s): Cardiac catheterization on 10/04/2014, right femoral artery/common femoral artery endarterectomy. 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 tom inguinal hernia repair, coronary artery bypass surgery, EGD, colonoscopy. Cath with PCI to RCA 02/04/19 Past Anesthesia/Blood Transfusion Reactions: No Reported Reaction Past Psychological History: No Psychological Hx Reported Smoking Status: Former smoker Past Alcohol Use History: Rare Past Drug Use History: None Reported - Past Family History Brother(s) Family Medical History: Cancer Additional Family Medical History / Comment(s): 2 with lung and 1 with prostate Mother Family Medical History: Myocardial Infarction ([place]) Father History Unknown: Yes Additional Family Medical History / Comment(s): AT AGE 83 FROM "HARDENING OF THE ARTERIES" Medications and Allergies Home Medications Medication Instructions Recorded Confirmed Type Atorvastatin [Lipitor] 40 mg PO HS 09/27/14 05/03/19 History Spironolactone [Aldactone] 25 mg PO BID 11/12/17 05/03/19 History Aspirin 81 mg PO DAILY #30 chew 04/07/18 05/03/19 Rx Clopidogrel [Plavix] 75 mg PO DAILY #30 tab 04/07/18 05/03/19 Rx Pantoprazole Sodium [Protonix] 40 mg PO DAILY 07/14/18 05/03/19 History Metoprolol Tartrate [Lopressor] 50 mg PO BID 02/12/19 05/03/19 History rOPINIRole HCL [Requip] 1 mg PO HS 02/12/19 05/03/19 History Terazosin [Hytrin] 5 mg PO HS 02/28/19 05/03/19 History Allopurinol [Zyloprim] 100 mg PO DAILY 03/31/19 05/03/19 History Epoetin Newton [Procrit] 40,000 units IV WEEKLY 04/03/19 05/03/19 History predniSONE 40 mg PO DAILY tab 04/04/19 05/03/19 Rx Amiodarone [Cordarone] 200 mg PO HS 04/20/19 05/03/19 History Furosemide [Lasix] 40 mg PO HS #30 tab 04/27/19 05/03/19 Rx Furosemide [Lasix] 60 mg PO DAILY #30 tab 04/27/19 05/03/19 Rx Naproxen [Naprosyn] 375 mg PO Q12HR #30 tablet 04/27/19 05/03/19 Rx Allergies Allergy/AdvReac Type Severity Reaction Status Date / Time No Known Allergies Allergy Verified 04/20/19 18:04 Physical Exam Vitals: Vital Signs Temp Pulse Resp BP Pulse Ox 05/03/19 15:52 90 16 90/56 100 05/03/19 13:55 73 18 83/52 94 L 05/03/19 13:45 98.1 F 81 18 75/49 93 L Intake and Output 05/03/19 05/03/19 05/03/19 06:59 14:59 22:59 Other: Weight 70.307 kg Constitutional: No acute distress, conversant, pleasant Eyes: Anicteric sclerae, moist conjunctiva, no lid-lag, PERRLA ENMT: NC/AT,Oropharynx clear, no erythema, exudates Neck:Supple, FROM, no masses, or JVD, No carotid bruits; No thyromegaly Lungs: Diminished in the bases unlabored on 2 L of nasal cannula Cardiovascular: Irregularly irregular, No murmurs, gallops, or rubs no periphe ral edema Abdominal: Soft Nontender, nom distended, no guarding, no rebound or rigidity, Normoactive bowel sounds No hepatomegaly, No splenomegaly, No palpable mass No abdominal wall hernia noted Skin: Normal temperature, tone, texture, turgor, No induration No subcutaneous nodules, No rash, lesions, No ulcers, mild tracking and erythema on the posterior right leg Extremities:No digital cyanosis No clubbing, Pedal pulses intact and symmetrical Radial pulses intact and symmetrical Normal gait and station, No calf tenderness, right great toe podagra, Psychiatric: Alert and oriented to person, place and time, Appropriate affect Intact judgement Neuro: Muscles Strength 5/5 in all 4 extremities, Sensation to light touch grossly present throughout, Cranial nerves II-XII grossly intact. No focal sensory deficits Results CBC & Chem 7: 05/05/19 04:21 05/05/19 04:21 Labs: Abnormal Lab Results - Last 24 Hours (Table) 05/03/19 05/03/19 05/03/19 Range/Units 13:48 13:48 13:48 WBC 35.6 H (3.8-10.6) k/uL RBC 3.17 L (4.30-5.90) m/uL Hgb 8.5 L (13.0-17.5) gm/dL Hct 28.2 L (39.0-53.0) % MCHC 30.2 L (31.0-37.0) g/dL RDW 26.7 H (11.5-15.5) % Neutrophils # (Manual) 33.40 H (1.3-7.7) k/uL Lymphocytes # (Manual) 0.71 L (1.0-4.8) k/uL Eosinophils # (Manual) 0.71 H (0-0.7) k/uL Metamyelocytes # (Man) 0.36 H (0) k/uL Myelocytes # (Manual) 0.36 H (0) k/uL PT 14.3 H (9.0-12.0) sec INR 1.4 H (<1.2) APTT 30.7 H (22.0-30.0) sec Sodium 131 L (137-145) mmol/L Potassium 5.4 H (3.5-5.1) mmol/L Carbon Dioxide 20 L (22-30) mmol/L BUN 86 H (9-20) mg/dL Creatinine 2.12 H (0.66-1.25) mg/dL Glucose 136 H (74-99) mg/dL Calcium 7.8 L (8.4-10.2) mg/dL Total Bilirubin 2.0 H (0.2-1.3) mg/dL Alkaline Phosphatase 134 H (38-126) U/L Total Protein 5.3 L (6.3-8.2) g/dL Albumin 2.9 L (3.5-5.0) g/dL Assessment and Plan (1) Acute kidney injury Current Visit: Yes Status: Acute Code(s): N17.9 - ACUTE KIDNEY FAILURE, UNSPECIFIED SNOMED Code(s): 71193294 (2) Hypotension Current Visit: Yes Status: Acute Code(s): I95.9 - HYPOTENSION, UNSPECIFIED SNOMED Code(s): 34483305 (3) Cellulitis of right lower extremity Current Visit: Yes Status: Acute Code(s): L03.115 - CELLULITIS OF RIGHT LOWER LIMB SNOMED Code(s): 899719557 (4) Gout flare Current Visit: Yes Status: Acute Code(s): M10.9 - GOUT, UNSPECIFIED SNOMED Code(s): 552093188 (5) Leukocytosis Current Visit: No Status: Chronic Priority: Medium Code(s): D72.829 - ELEVATED WHITE BLOOD CELL COUNT, UNSPECIFIED SNOMED Code(s): 135556620 (6) Hyponatremia Current Visit: Yes Status: Acute Code(s): E87.1 - HYPO-OSMOLALITY AND HYPONATREMIA SNOMED Code(s): 74181563 (7) Hyperkalemia Current Visit: Yes Status: Acute Code(s): E87.5 - HYPERKALEMIA SNOMED Code(s): 19117439 (8) Myeloproliferative disorder Current Visit: No Status: Chronic Code(s): D47.1 - CHRONIC MYELOPROLIFERATIVE DISEASE SNOMED Code(s): 919684919 Plan: The patient is admitted to the ICU anticipated greater than 2 midnight stay with concern for sepsis secondary to possible cellulitis in the setting of acute gout flare with necrotic appearing toes versus pneumonia, in the setting of acute kidney injury and metabolic acidosis and hyperkalemia. Patient has chronic leukocytosis secondary to myeloproliferative disorder, serum lactic acid was 1.6 The patient was hypotensive on presentation and received 2 L of normal saline and started on empiric IV antibiotics with Zosyn and vancomycin, the patient is continued on normal saline at 120 mL an hour. His antihypertensive regimen is held, we'll plan for consultation to infectious diseases and director financial planning. We'll also plan to consult nephrology for renal ultrasound was ordered and patient is been given a dose of Kayexalate. Leggett Catheter placement to monitor strict I's and O's, all nephrotoxic agents are held. He'll likely secondary to hypotension and overdiuresis. We'll continue to monitor creatinine The patient is continued on prednisone for his acute gout flare we'll check a serum uric acid his previous was elevated at 9.6. We'll continue to monitor his clinical course The patient is admitted with an anticipated greater than 2 midnight stay for evaluation of HIREN with concern for sepsis . CODE STATUS:Full Code Discussed with: Patient Anticipated discharge date: 04/23/[address]: Home A total of 45 minutes was spent on the care of this complex patient more than 50% of the time was spent in counseling and care coordination.
[2019-05-03] MEDS ORDERED: SODIUM POLYSTYRENE SULFONATE 15 GM/60 ML BOTTLE PO STA (16:26)
[2019-05-03] MEDS ORDERED: VANCOMYCIN 1,250 MG in SODIUM CHLORIDE 0.9% 250 ML IVPB SCH (16:30)
[2019-05-03] MEDS: SODIUM CHLORIDE 0.9% 1,000 ML IV SCH (17:05)
[2019-05-03 17:07] LABS: Appearance,Urine Clear (Clear); Bilirubin,Urine Negative (Negative); Blood,Urine Negative (Negative); Color,Urine Yellow; Glucose,Urine (UA) Negative (Negative); Ketones,Urine Negative (Negative); Leukocyte Esterase,Urine Negative (Negative); Nitrite,Urine Negative (Negative); PH, Urine 5.5 (5.0-8.0); Protein,Urine Trace (Negative); Specific Gravity,Urine 1.015 (1.001-1.035); Urobilinogen,Urine <2.0 mg/dL (<2.0)
[2019-05-03] MEDS ORDERED: ONDANSETRON 4 MG/2 ML VIAL IVP PRN (17:19)
[2019-05-03 18:14] LABS: Glucose,Whole Blood 118 mg/dL (75-99)
[2019-05-03] MEDS: ACETAMINOPHEN TAB 325 MG TAB PO PRN (18:42)
--- NOTE | 2019-05-03 19:24 | CONS ---
CONSULTATION This is a pulmonary critical care consultation DATE OF SERVICE: May 03, 2019 HISTORY OF PRESENT ILLNESS: This is a 79-year-old male with multiple medical problems including atrial fibrillation/flutter, CAD, congestive heart failure, GERD, GI bleed, hyperlipidemia, hypertension, myocardial infarction, and BPH. The patient apparently was recently an inpatient for an episode of congestive heart failure. He was placed on increased doses of diuretics and has lost quite a bit of weight recently. In addition, he came into the emergency room complaining primarily of pain and tenderness to the right leg and foot. He seems to be more concerned about that than anything else. He has been taking anti-inflammatories for right great toe gout exacerbation. He was found in the emergency room to be hypotensive with systolic blood pressure in the 60s and 70s. There is no chest pain or pressure. No abdominal pain. No nausea, vomiting or diarrhea. He did receive some fluids in the emergency room about 2.5 L. His blood pressure came up into the mid 80s. He is currently resting comfortably in the ICU, still complaining primarily of right leg and right foot pain. He does not feel like his gout is causing the pain. The patient's primary doctor is Dr. Franklin. He was seen by the hospitalist for Dr. Franklin. The patient is currently on a couple L of fluid. He is getting saline at 125 mL an hour. Antibiotics in the form of vancomycin and Zosyn have been initiated. HOME MEDICATIONS: Include Lipitor, Aldactone, Protonix, Lopressor, Requip, Hytrin, Zyloprim, Procrit, Cordarone, aspirin Plavix, prednisone, Lasix, and naproxen. ALLERGIES: None. As mentioned prior, his medical problems include atrial fibrillation/flutter, CAD, heart failure, GERD, GI bleed, hyperlipidemia, hypertension, myocardial infarction, BPH, peripheral vascular occlusive disease, CLL, esophagitis, PAD, pulmonary hypertension, cor pulmonale. The patient has also previously had Acinetobacter infection as well as MRSA infection. SURGICAL HISTORY: Includes bypass grafting a number of years back. Coronary arteriography with stent placement, hernia repair, and cholecystectomy. He has also had a right femoral artery endarterectomy and balloon angioplasty of the superficial femoral artery. In addition, he has had a right groin exploration for pseudoaneurysm, EGD, colonoscopy, and a recent cardiac catheterization with stent placement in his right coronary artery in February of this year. SOCIAL HISTORY: Positive for previous tobacco use. Does not smoke currently. Drinks alcohol rarely. No illicit drug use. OCCUPATIONAL HISTORY: He is retired. It is noncontributory to the case. FAMILY HISTORY: Positive for brother with cancer, both lung and prostate and mother with myocardial infarction. His father at age 83 from atherosclerotic cardiovascular disease. REVIEW OF SYSTEMS: CONSTITUTIONAL: Weakness and fatigue. NEUROLOGIC negative. HEENT negative. CARDIOVASCULAR negative. PULMONARY: Mild shortness of breath. GI negative. negative. RHEUMATOLOGIC negative. IMMUNOLOGIC negative. ENDOCRINOLOGIC negative. DERMATOLOGIC negative. The patient also complains of right leg and right foot pain. PHYSICAL EXAMINATION: VITAL SIGNS: Current vital signs are reviewed. Temperature is 98.1. Heart rate 76, respiratory rate 18, blood pressure 98/56, saturations on room air 96% on 2 L 98%. Appears in no acute distress. Very mildly tachypneic. No conversational dyspnea. No audible wheezing. No use of accessory muscles. HEENT examination is grossly unremarkable. Nasal O2 in place. NECK: Supple. Full range of motion. No adenopathy. CARDIOVASCULAR examination reveals a regular rhythm and rate. He appears to be in atrial fibrillation. S1, S2 normal. No murmur noted. LUNGS: Relatively clear. A few scattered rhonchi. No wheezes or crackles. ABDOMEN: Soft. No tenderness. No masses. EXTREMITIES are intact. He does have some mild edema. His right leg and foot is very sensitive to touch. SKIN is without rash except for multiple areas of ecchymoses. There is a well- healed scar in the midline from previous median sternotomy. NEUROLOGIC examination is brief but nonfocal. LABORATORY DATA: Includes a white count of 35.6, hemoglobin 8.5, platelet count 345,000. PT 14.3, INR 1.4, PTT 30.7. Sodium 131, potassium 5.4, chloride 100, CO2 20, anion gap 11, BUN and creatinine were 86 and 2.12. Calcium 7.8, total bilirubin 2, albumin 2.9. Urine is negative. Chest x-ray shows multifocal patchy interstitial opacities primarily to the medial right base. This could be consistent with pneumonia or more likely heart failure. A foot x-ray on the right shows no acute osseous abnormality. There is some gouty changes noted in the right foot. Venous Doppler of the right leg appears negative for DVT. Medications are reviewed. In terms of antibiotics, he is on Zosyn and vancomycin. Other medications are appropriate. No diuretics at this time. ASSESSMENT: 1. Hypotension, most likely related to excessive diuretics. 2. Right leg and foot pain, of unclear etiology with negative x-rays. 3. History of gout. 4. History of chronic lymphocytic leukemia. 5. Previous bypass grafting. 6. Recent coronary arteriography with PCI of the right coronary artery. 7. Benign prostatic hypertrophy. 8. History of chronic atrial fibrillation/flutter. 9. Coronary artery disease. 10.Gastroesophageal reflux disease. 11.History of gastrointestinal bleed. 12.History of hyperlipidemia. 13.History of hypertension. 14.History of myocardial infarction. 15.Severe peripheral vascular occlusive disease/peripheral arterial disease. 16.Pulmonary hypertension with right heart failure/cor pulmonale. 17.Previous history of both Acinetobacter and MRSA infection. PLAN: The patient appears relatively comfortable. We will continue to follow closely. His elevated white count likely reflects CLL rather than infection. X-rays of the leg and foot are negative. Diuretics have been held. The patient is getting fluid resuscitation including 2.5 L in the emergency room. Prognosis is guarded. We will continue to follow closely. Additional recommendations and suggestions to follow. MMODL / IJN: [id number] / LORNA
[2019-05-03] MEDS: AMIODARONE 200 MG TAB PO SCH (20:34)
[2019-05-03] MEDS: ATORVASTATIN 40 MG TAB PO SCH (20:34)
[2019-05-03] MEDS: NOREPINEPHRINE 4 MG in SODIUM CHLORIDE 0.9% 250 ML IV SCH (22:37)
[2019-05-04] MEDS ORDERED: traMADol 50 MG TAB PO STA (00:22)
[2019-05-04] MEDS: HEPARIN SODIUM,PORCINE 5,000 UNIT/ML 1 ML VIAL SQ SCH ×4 (00:26→23:55)
[2019-05-04] MEDS: PIPERACILLIN-TAZOBACTAM 3.375 GM in SODIUM CHLORIDE 0.9% 100 ML IVPB SCH ×4 (00:27→23:55)
[2019-05-04] MEDS: SODIUM CHLORIDE 0.9% 1,000 ML IV SCH ×4 (00:27→23:59)
[2019-05-04] MEDS: NOREPINEPHRINE 4 MG in SODIUM CHLORIDE 0.9% 250 ML IV SCH ×3 (05:13→18:06)
[2019-05-04] MEDS: ACETAMINOPHEN TAB 325 MG TAB PO PRN (05:31)
[2019-05-04 06:49] LABS: Anisocytosis Marked; HCT 30.4 % (39.0-53.0); HGB 8.8 gm/dL (13.0-17.5); Hypochromasia Marked; MCH 26.6 pg (25.0-35.0); MCV 91.4 fL (80.0-100.0); Macrocytosis Slight; Microcytosis Slight; Platelet Count 385 k/uL (150-450); Poikilocytosis Moderate; RBC 3.32 m/uL (4.30-5.90)
[2019-05-04 06:59] LABS: Calcium 6.8 mg/dL (8.4-10.2); Potassium 4.7 mmol/L (3.5-5.1)
[2019-05-04 07:25] LABS: Band Neutrophils % 1 %; Eosinophils # (M) 0.41 k/uL (0-0.7); Lymphocytes # (M) 2.47 k/uL (1.0-4.8); Monocytes # (M) 0.41 k/uL (0-1.0); Neutrophils % (M) 92 %; Nucleated Red Blood Cells 2 /100 WBC (0-0); Total Cells Counted 200; WBC 41.2 k/uL (3.8-10.6)
[2019-05-04 07:26] LABS: RBC Fragments Present; Spherocytes Present
[2019-05-04] MEDS: PANTOPRAZOLE 40 MG TABLET PO SCH (08:25)
[2019-05-04] MEDS: CLOPIDOGREL 75 MG TAB PO SCH (08:25)
[2019-05-04] MEDS: ASPIRIN 81 MG PO SCH (08:25)
[2019-05-04] MEDS: predniSONE 20 MG TAB PO SCH (08:25)
--- NOTE | 2019-05-04 08:37 | US ---
EXAMINATION TYPE: US renals and bladder DATE OF EXAM: 05/04/2019 COMPARISON: CT dated 03/31/2019 CLINICAL HISTORY: Alec. ICU pt with alec, septic EXAM MEASUREMENTS: Right Kidney: 12.2 x 5.2 x 5.4 cm Left Kidney: 12.5 x 5.6 x 5.5 cm Right Kidney: No hydronephrosis or masses seen Left Kidney: No hydronephrosis or masses seen Bladder: sigala incidental of trace ascites There is no evidence for hydronephrosis at this point in time. No nephrolithiasis is seen. No davon s are identified. The urinary bladder is nondistended with Sigala catheter placement. IMPRESSION: 1. No hydronephrosis or nephrolithiasis. 2. Incidentally noted trace abdominal ascites of indeterminate etiology. Hepatocellular disease is po ssible as an etiology with hepatosplenomegaly seen on the prior CT of 03/31/2019.
[2019-05-04] MEDS ORDERED: MORPHINE SULFATE 2 MG/ML SYRINGE IVP PRN (10:00)
--- NOTE | 2019-05-04 10:54 | XR ---
EXAMINATION TYPE: XR chest 1V DATE OF EXAM: 05/04/2019 COMPARISON: Prior chest x-ray 05/03/2019 HISTORY: Shortness of breath TECHNIQUE: Single frontal view of the chest is obtained. FINDINGS: Patient is post median sternotomy and the heart remains enlarged. Central vascularity and interstitium are increased. Possible right pleural effusion, this blunting the right gastric angle. P erihilar vascular indistinctness is noted. IMPRESSION: Correlate for congestive heart failure, pneumonia not excluded.
--- NOTE | 2019-05-04 12:24 | ECHOF ---
Referral Reason:rule out vegetation on valve MEASUREMENTS -------- HEIGHT: 170.2 cm WEIGHT: 76.2 kg BP: RVIDd: 4.4 cm (< 3.3) IVSd: 1.2 cm (0.6 - 1.1) LVIDd: 4.1 cm (3.9 - 5.3) LVPWd: 1.3 cm (0.6 - 1.1) IVSs: 1.2 cm LVIDs: 3.0 cm LVPWs: 1.8 cm LAESV Index (A-L): 45.78 ml/m Ao Diam: 2.8 cm (2.0 - 3.7) AV Cusp: 2.0 cm (1.5 - 2.6) LA Diam: 3.7 cm (2.7 - 3.8) MV EXCURSION: 20.824 mm (> 18.000) MV EF SLOPE: 116 mm/s (70 - 150) EPSS: 0.5 cm AR PHT: 381 ms RAP: 20.00 mmHg RVSP: 97.65 mmHg FINDINGS -------- Atrial fibrillation. This was a technically adequate study. The left ventricular size is normal. There is mild concentric left ventricular hypertrophy. Overa ll left ventricular systolic function is low-normal with, an EF between 50 - 55 %. There is paradox ical/dysynergic septal motion consistent with right ventricular volume overload and/or elevated right ventricular end-diastolic pressure. The right ventricle is severely enlarged. LA is severely dilated >40 ml/m2 The right atrial size is normal. Interatrial and interventricular septum intact. Aortic valve is trileaflet and is mildly thickened. Trace amount of aortic regurgitation. The mitral valve leaflets are mildly thickened. Mild mitral regurgitation is present. Severe tricuspid regurgitation present. There is severe pulmonary hypertension. The right ventric ular systolic pressure, as measured by Doppler, is 97.65mmHg. Possible TV prolapse Trace/mild (physiologic) pulmonic regurgitation. The aortic root size is normal. The inferior vena cava is dilated with no significant inspiratory collapse which is consistent estima ema right atrial pressure of >20 mmHg. There is no pericardial effusion. CONCLUSIONS -------- 1. Atrial fibrillation. 2. This was a technically adequate study. 3. The left ventricular size is normal. 4. There is mild concentric left ventricular hypertrophy. 5. Overall left ventricular systolic function is low-normal with, an EF between 50 - 55 %. 6. There is paradoxical/dysynergic septal motion consistent with right ventricular volume overload an d/or elevated right ventricular end-diastolic pressure. 7. The right ventricle is severely enlarged. 8. LA is severely dilated >40 ml/m2 9. The right atrial size is normal. 10. Interatrial and interventricular septum intact. 11. Aortic valve is trileaflet and is mildly thickened. 12. Trace amount of aortic regurgitation. 13. The mitral valve leaflets are mildly thickened. 14. Mild mitral regurgitation is present. 15. Severe tricuspid regurgitation present. 16. There is severe pulmonary hypertension. 17. The right ventricular systolic pressure, as measured by Doppler, is 97.65mmHg. 18. Possible TV prolapse 19. Trace/mild (physiologic) pulmonic regurgitation. 20. The aortic root size is normal. 21. The inferior vena cava is dilated with no significant inspiratory collapse which is consistent es timated right atrial pressure of >20 mmHg. 22. There is no pericardial effusion. PENS AND PENCILS DIPPER: Renetta Tejada RDCS
--- NOTE | 2019-05-04 13:37 | P.PN ---
Subjective Progress Note Date: 05/04/19 Principal diagnosis: Right lower extremity pain Patient was seen and examined. No acute events overnight. Patient reports burning, 10 out of 10 severity pain in his right foot. Patient reports some mild shortness of breath associated with his CHF and A. fib. He denies any ch est pain or palpitations. No nausea or vomiting. No fever or chills. Objective - Vital Signs Vital signs: Vital Signs Temp 97.8 F 05/04/19 08:00 Pulse 77 05/04/19 12:00 Resp 20 05/04/19 12:00 BP 107/64 05/04/19 12:00 Pulse Ox 95 05/04/19 12:00 Intake & Output 05/03/19 05/04/19 05/04/19 18:59 06:59 18:59 Intake Total 120 2088.670 1174 Output Total 740 385 Balance 120 1348.670 789 Weight 70.307 kg 76.3 kg Intake: IV 120 1890 820 Piperacillin-Tazobactam 3 200 100 .375 gm In Sodium Chloride 0.9% 100 ml @ 25 mls/hr IVPB Q8HR JOSE Rx# :[id number] Sodium Chloride 0.9% 1, 120 1440 720 000 ml @ 120 mls/hr IV . [id number] JOSE Rx#:[id number] Vancomycin 1,250 mg In 250 Sodium Chloride 0.9% 250 ml @ 125 mls/hr IVPB DAILY JOSE Rx#:[id number] Intake, IV Titration 198.670 254 Amount Norepinephrine 4 mg In 198.670 254 Sodium Chloride 0.9% 250 ml @ 0.05 MCG/KG/MIN 13. 394 mls/hr IV .[id number] JOSE Rx#:[id number] Oral 100 Output: Urine 740 385 Other: Voiding Method Indwelling Catheter Indwelling Catheter # Voids 1 # Bowel Movements 1 - Exam General: [non toxic], [no distress], [appears at stated age] Derm: [warm], [dry] Head: [atraumatic], [normocephalic], [symmetric] Eyes: [EOMI], [no lid lag], [anicteric sclera] Mouth: [no lip lesion], [mucus membranes moist] Cardiovascular: [S1S2 reg], [irregularly irregular], [negative DP pulse right lower extremity, Lungs: [CTA bilateral], [no rhonchi, no rales] , [no accessory muscle use] Abdominal: [soft], [ nontender to palpation], [no guarding], [no appreciable organomegaly] Ext: [no gross muscle atrophy], [ lower extremity edema], [no contractures] Neuro: [right fourth toe purple discoloration with erythema that extends to the edition, possible thrombophlebitis] Psych: [Alert], [oriented], [appropriate affect] - Labs CBC & Chem 7: 05/04/19 04:47 05/04/19 04:47 Labs: Abnormal Lab Results - Last 24 Hours (Table) 05/03/19 05/03/19 05/03/19 Range/Units 13:48 13:48 13:48 WBC 35.6 H (3.8-10.6) k/uL RBC 3.17 L (4.30-5.90) m/uL Hgb 8.5 L (13.0-17.5) gm/dL Hct 28.2 L (39.0-53.0) % MCHC 30.2 L (31.0-37.0) g/dL RDW 26.7 H (11.5-15.5) % Neutrophils # (Manual) 33.40 H (1.3-7.7) k/uL Lymphocytes # (Manual) 0.71 L (1.0-4.8) k/uL Eosinophils # (Manual) 0.71 H (0-0.7) k/uL Metamyelocytes # (Man) 0.36 H (0) k/uL Myelocytes # (Manual) 0.36 H (0) k/uL Nucleated RBCs (0-0) /100 WBC PT 14.3 H (9.0-12.0) sec INR 1.4 H (<1.2) APTT 30.7 H (22.0-30.0) sec Sodium 131 L (137-145) mmol/L Potassium 5.4 H (3.5-5.1) mmol/L Carbon Dioxide 20 L (22-30) mmol/L BUN 86 H (9-20) mg/dL Creatinine 2.12 H (0.66-1.25) mg/dL Glucose 136 H (74-99) mg/dL POC Glucose (mg/dL) (75-99) mg/dL Uric Acid (3.5-8.5) mg/dL Calcium 7.8 L (8.4-10.2) mg/dL Total Bilirubin 2.0 H (0.2-1.3) mg/dL Alkaline Phosphatase 134 H (38-126) U/L Total Protein 5.3 L (6.3-8.2) g/dL Albumin 2.9 L (3.5-5.0) g/dL Urine Protein (Negative) 05/03/19 05/03/19 05/03/19 Range/Units 13:48 16:23 18:02 WBC (3.8-10.6) k/uL RBC (4.30-5.90) m/uL Hgb (13.0-17.5) gm/dL Hct (39.0-53.0) % MCHC (31.0-37.0) g/dL RDW (11.5-15.5) % Neutrophils # (Manual) (1.3-7.7) k/uL Lymphocytes # (Manual) (1.0-4.8) k/uL Eosinophils # (Manual) (0-0.7) k/uL Metamyelocytes # (Man) (0) k/uL Myelocytes # (Manual) (0) k/uL Nucleated RBCs (0-0) /100 WBC PT (9.0-12.0) sec INR (<1.2) APTT (22.0-30.0) sec Sodium (137-145) mmol/L Potassium (3.5-5.1) mmol/L Carbon Dioxide (22-30) mmol/L BUN (9-20) mg/dL Creatinine (0.66-1.25) mg/dL Glucose (74-99) mg/dL POC Glucose (mg/dL) 118 H (75-99) mg/dL Uric Acid 16.9 H* (3.5-8.5) mg/dL Calcium (8.4-10.2) mg/dL Total Bilirubin (0.2-1.3) mg/dL Alkaline Phosphatase (38-126) U/L Total Protein (6.3-8.2) g/dL Albumin (3.5-5.0) g/dL Urine Protein Trace H (Negative) 05/04/19 05/04/19 Range/Units 04:47 04:47 WBC 41.2 H (3.8-10.6) k/uL RBC 3.32 L (4.30-5.90) m/uL Hgb 8.8 L (13.0-17.5) gm/dL Hct 30.4 L (39.0-53.0) % MCHC 29.0 L (31.0-37.0) g/dL RDW 26.0 H (11.5-15.5) % Neutrophils # (Manual) 38.30 H (1.3-7.7) k/uL Lymphocytes # (Manual) (1.0-4.8) k/uL Eosinophils # (Manual) (0-0.7) k/uL Metamyelocytes # (Man) (0) k/uL Myelocytes # (Manual) (0) k/uL Nucleated RBCs 2 H (0-0) /100 WBC PT (9.0-12.0) sec INR (<1.2) APTT (22.0-30.0) sec Sodium 135 L (137-145) mmol/L Potassium (3.5-5.1) mmol/L Carbon Dioxide 15 L (22-30) mmol/L BUN 71 H (9-20) mg/dL Creatinine 1.78 H (0.66-1.25) mg/dL Glucose 107 H (74-99) mg/dL POC Glucose (mg/dL) (75-99) mg/dL Uric Acid (3.5-8.5) mg/dL Calcium 6.8 L (8.4-10.2) mg/dL Total Bilirubin (0.2-1.3) mg/dL Alkaline Phosphatase (38-126) U/L Total Protein (6.3-8.2) g/dL Albumin (3.5-5.0) g/dL Urine Protein (Negative) Microbiology - Last 24 Hours (Table) 05/03/19 16:23 Urine Culture - Preliminary Urine,Clean Catch Assessment and Plan Assessment: Assessment and Plan Right 4th toe discoloration, possibly related to thromboembolic disease Sepsis, possibly related to right lower extremity cellulitis Acute on chronic systolic CHF exacerbation Acute kidney injury Myeloproliferative disorder with leukocytosis CAD with recent RCA stent Atrial flutter Gout Patient with history of right lower extremity ischemia with common femoral severe occlusive disease status post right common femoral artery endarterectomy in March 2018. As per RN, able to Doppler DP of right foot. Plans: Pain control with Tylenol or morphine as needed. We will reconsult Dr. Cline for further management of occlusive disease in the right lower extremity. Neurochecks and right lower extremity. Continue aspirin and Plavix. Patient hypotensive to a SBP 81, leukocytosis of 35.6 on admission, positive source of infection. Likely related to right lower extremity cellulitis. Lactic acid negative. Plans: Continue Levophed to maintain MAP > 65. Continue normal saline at 120 mL per hour. Tylenol as needed for fever. Started on vanc omycin and Zosyn for treatment of cellulitis. Follow urine culture. Follow blood culture. Follow infectious disease consult. Chest x-ray with concerns of pulmonary edema secondary to CHF exacerbation. Plans: Hold Lasix. Hold spironolactone. Hold metoprolol. Plans to reintroduce when BP improved. Strict intake and output take. Daily weight. We'll be cautious as patient is being hydrated with IVF. Follow cardiology consultation. Creatinine from 2.12-1.78. Likely secondary to diuresis. Renal ultrasound shows abdominal ascites, no hydronephrosis or nephrolithiasis. Plans: Daily BMP . Avoid nephrotoxins. Follow nephrology consultation. WBC count 35.6-41.2, hemoglobin 8.5-8.8 Leukocytosis likely stress-induced. Gets weekly Procrit injections at Dr. Miller's office. Plan: Daily CBC. Plan: Continue aspirin, Plavix and Lipitor. Hold beta quan due to hypotension Plan: No anticoagulation due to recurrent GI bleeds. Continue amiodarone. Hold beta quan due to hypotension. Telemetry monitoring. Follow cardiology consult. Uric acid elevated at 16.9. Plans: We'll continue prednisone. Pain control with Tylenol or morphine. Follow PT recommendations. Patient admitted for possible sepsis due to right lower extremity cellulitis, ID on board. There are some concerns for thromboembolic disease of the right lower extremity, vascular surgery was consulted. Cardiology consulted for CHF exacerbation. Patient is pending clinical improvement. Prognosis is guarded.
[2019-05-04] MEDS: MORPHINE SULFATE 2 MG/ML SYRINGE IVP PRN ×3 (14:51→20:11)
--- NOTE | 2019-05-04 16:23 | P.PN ---
Subjective Progress Note Date: 05/04/19 This is a 79-year-old male patient with known history of extensive peripheral vascular disease with previous fem-pop arthrectomy and bovine patch insertion in addition to history of chronic atrial fibrillation was not been able to maintain on anticoagulation because of alcohol GI bleeding. The patient also known to have coronary artery disease, diastolic heart failure, hypertension and hyperlipidemia and gout. The patient came into the hospital yesterday because of an extensive right leg pain. The pain was mainly over the posterior aspect of his right callus and the patient also developed a bluish discoloration of the fourth toe. There was also some erythematous rash over the oh and over the anterior/medial thigh area where the vascular intervention was done earlier. On examination, the area is quite painful. The patient had a Doppler of the right lower x-ray that showed no evidence of any DVT. Pulses were obtained by Doppler signal in the popliteal dorsalis pedis and anterior tibialis. The patient is adequate femoral vein in the right groin area that was palpable. The patient is afebrile. The patient is hemodynamically stable. He was started on antibiotics for now. His cardiac rhythm remains in atrial fibrillation. The patient had a repeat echocardiogram today that showed severe pulmonary hypertension which has been noted on previous echocardiogram with a PA pressure estimated to be in the 90 mmHg range. He was furthermore found to have elevated uric acid level which probably is not related to this current presentation. The patient has underlying history of gout. The patient's current white count is 41.2. The patient has significant neutrophilia of 38%. The patient was started on accommodation Zosyn and vancomycin. The patient is on no pressors for now. Outpatient medications have been ordered resume. The primary cultures are negative for the past 24 hours. Objective - Vital Signs Vital signs: Vital Signs Temp 97.8 F 05/04/19 08:00 Pulse 79 05/04/19 15:00 Resp 25 H 05/04/19 15:00 BP 105/61 05/04/19 15:00 Pulse Ox 97 05/04/19 15:00 Intake & Output 05/03/19 05/04/19 05/04/19 18:59 06:59 18:59 Intake Total 120 2088.670 1464 Output Total 740 535 Balance 120 1348.670 929 Weight 70.307 kg 76.3 kg Intake: IV 120 1890 1060 Piperacillin-Tazobactam 3 200 100 .375 gm In Sodium Chloride 0.9% 100 ml @ 25 mls/hr IVPB Q8HR JOSE Rx# :[id number] Sodium Chloride 0.9% 1, 120 1440 960 000 ml @ 120 mls/hr IV . Q8H20M JOSE Rx#:[id number] Vancomycin 1,250 mg In 250 Sodium Chloride 0.9% 250 ml @ 125 mls/hr IVPB DAILY JOSE Rx#:[id number] Intake, IV Titration 198.670 254 Amount Norepinephrine 4 mg In 198.670 254 Sodium Chloride 0.9% 250 ml @ 0.05 MCG/KG/MIN 13. 394 mls/hr IV .[id number] JOSE Rx#:[id number] Oral 150 Output: Urine 740 535 Other: Voiding Method Indwelling Catheter Indwelling Catheter # Voids 1 # Bowel Movements 1 - Exam Gen. appearance the patient is a mild degree of pain in the right lower extremity. Head exam was generally normal. There was no scleral icterus or corneal arcus. Mucous membranes were moist. Neck was supple and without jugular venous distension, thyromegaly, or carotid bruits. Carotids were easily palpable bilaterally. There was no adenopathy. Lungs sounds are diminished bilaterally with few scattered external wheeze. Heart sounds are irregular, positive S1 and S2 and there is no significant right ventricular heave. There is a grade 2-3 systolic ejection murmur mainly heard over the right lateral sternal border. Ramya the lower extremities are quite diminished. There are Doppler he obtained in the popliteal dorsalis pedis and posterior tibialis area. Abdominal exam revealed normal bowel sounds. The abdomen was soft, non-tender, and without masses, organomegaly, or appreciable enlargement of the abdominal aorta. Examination of the extremities revealed Doppler signal pulses in the popliteal and the right foot area. The forced toe is dark blue/purple discoloration along with erythema extending to its base. No open wounds or sores or ulceration at this point in time. There is an erythematous area over the oh and the medial aspect of the thigh (medial ) Neurologically the patient is awake and alert and is a focal neurological deficits. - Labs CBC & Chem 7: 05/04/19 04:47 05/04/19 04:47 Labs: Abnormal Lab Results - Last 24 Hours (Table) 05/03/19 05/03/19 05/03/19 Range/Units 13:48 16:23 18:02 WBC (3.8-10.6) k/uL RBC (4.30-5.90) m/uL Hgb (13.0-17.5) gm/dL Hct (39.0-53.0) % MCHC (31.0-37.0) g/dL RDW (11.5-15.5) % Neutrophils # (Manual) (1.3-7.7) k/uL Nucleated RBCs (0-0) /100 WBC Sodium (137-145) mmol/L Carbon Dioxide (22-30) mmol/L BUN (9-20) mg/dL Creatinine (0.66-1.25) mg/dL Glucose (74-99) mg/dL POC Glucose (mg/dL) 118 H (75-99) mg/dL Uric Acid 16.9 H* (3.5-8.5) mg/dL Calcium (8.4-10.2) mg/dL Urine Protein Trace H (Negative) 05/04/19 05/04/19 Range/Units 04:47 04:47 WBC 41.2 H (3.8-10.6) k/uL RBC 3.32 L (4.30-5.90) m/uL Hgb 8.8 L (13.0-17.5) gm/dL Hct 30.4 L (39.0-53.0) % MCHC 29.0 L (31.0-37.0) g/dL RDW 26.0 H (11.5-15.5) % Neutrophils # (Manual) 38.30 H (1.3-7.7) k/uL Nucleated RBCs 2 H (0-0) /100 WBC Sodium 135 L (137-145) mmol/L Carbon Dioxide 15 L (22-30) mmol/L BUN 71 H (9-20) mg/dL Creatinine 1.78 H (0.66-1.25) mg/dL Glucose 107 H (74-99) mg/dL POC Glucose (mg/dL) (75-99) mg/dL Uric Acid (3.5-8.5) mg/dL Calcium 6.8 L (8.4-10.2) mg/dL Urine Protein (Negative) Microbiology - Last 24 Hours (Table) 05/03/19 13:48 Blood Culture - Preliminary Blood No Growth after 24 hours 05/03/19 16:23 Urine Culture - Preliminary Urine,Clean Catch Assessment and Plan Plan: 1 acute painful right lower extremity in a patient with severe peripheral vascular disease and previous fem-pop endarterectomy and bovine graft. Consider localized infection at the level of the graft with septic embolization to the right lower extremity as the patient has bluish discoloration of the fourth toe in addition to erythema along his medial thigh and calf which is quite painful. Dopplers signals are obtained in the dorsalis pedis and posterior tibialis and popliteal area. 2 acute leukocytosis 3 sepsis, to be considered secondary to above 4 coronary artery disease with previous stenting of the RCA 5 chronic atrial fibrillation 6 gout 7 history of hypertension 8 history of right-sided heart failure with severe cor pulmonale 9 history of previous MRSA/gram-negative Enterobacter infection 10 previous history of occult GI bleeding 11 chronic anemia 12 hyperlipidemia 13 BPH 14 history of myeloproliferative disorder 15 acute kidney injury, improving and the creatinine is down to 1.7 Plan Obtain blood cultures., The patient was Zosyn and vancomycin. Pain control. Consult vascular surgery. The echocardiogram was done and the patient showed a mild concentric LVH with an ejection fraction of 50-55%. The right-sided systolic pressure was 77 which is indicative of a chronic pulmonary hypertension, severe. The patient has mild mitral regurgitation at this point. We'll continue gentle fluid resuscitation. Outpatient medication been ordered resume. Awaiting plastic surgery evaluation. Awaiting ID evaluation. We'll continue to follow.
[2019-05-04] MEDS ORDERED: VANCOMYCIN 1,250 MG in SODIUM CHLORIDE 0.9% 250 ML IVPB SCH (17:00)
[2019-05-04] MEDS: ALLOPURINOL 100 MG TAB PO SCH (17:13)
[2019-05-04] MEDS: ATORVASTATIN 40 MG TAB PO SCH (20:10)
[2019-05-04] MEDS: AMIODARONE 200 MG TAB PO SCH (20:10)
--- NOTE | 2019-05-04 23:39 | CONS ---
CONSULTATION REASON FOR CONSULT: Acute kidney injury. HISTORY OF PRESENT ILLNESS: The patient is a 79-year-old male who was admitted to the hospital yesterday secondary to increased pain in his right leg. The patient is a blood pressure was significantly low when he first came into the hospital. He had a systolic in the 60s to 70s. Currently, patient is maintained on Levophed. He denies any prior history of kidney diseases. He has had fluid boluses in the ER, currently has had good urine output. Serum creatinine was 2.1 mg/dL on initial admission. It is down to 1.78 now. Review of previous labs shows a creatinine of 0.9 on 04/27/2019. The patient denies use of any nonsteroidal anti-inflammatory agents at home prior to admission. PAST MEDICAL HISTORY: Significant for COPD, coronary artery disease, history of atrial fibrillation/A flutter, hyperlipidemia, BPH, peripheral vascular disease, history of myeloproliferative disorder, severe pulmonary hypertension. 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 SOCIAL HISTORY: Positive for the patient being a former smoker. No history of drug abuse or alcohol abuse. MEDICATIONS: Prior to admission included Lipitor, Aldactone, aspirin, Plavix, Protonix, Lopressor, Requip, Hytrin, Zyloprim, Procrit, prednisone, Cordarone, Lasix, Naprosyn. ALLERGIES: None. EXAMINATION: Patient is currently comfortable, awake. He is not in any acute distress. Blood pressure this morning was 112/44, heart rate of about 90 per minute. Patient is afebrile. Examination of the heart S1, S2. Examination of the lungs, bilateral breath sounds are heard. Decreased breath sounds at bases. Abdomen is soft, nontender. Exam of lower extremities shows erythema right lower extremity with discoloration of the right toe fourth toe. ASSESSMENT: 1. History of pulmonary hypertension and right-sided heart failure. 2. Myeloproliferative disorder with underlying leukocytosis. 3. Coronary artery disease with coronary artery stenting. 4. Atrial flutter. 5. History of gout. 6. Hypotension, most likely related to underlying sepsis from cellulitis. 7. Mild hyperkalemia associated with acute kidney injury, currently improved. 8. Severe hyperuricemia. PLAN: Maintain patient on IV fluids. Hold off on all antihypertensive therapy. May continue with the vancomycin, but we need to closely monitor the levels. Renal function has improved since admission. Check results of ultrasound of the kidneys. Add Uloric for hyperuricemia and if not available, can start allopurinol. Thank you for this consultation. We will continue to follow the patient for you during his hospitalization. Thank you for this consultation. We will continue to follow the patient with you during his hospitalization end dictation. [id number] / IJN: [id number] /
--- NOTE | 2019-05-04 23:50 | P.CONS ---
History of Present Illness - Reason for Consult Consult date: 05/04/19 Right fourth toe gangrene and cellulitis Requesting physician: Kris Cid - Chief Complaint Right foot and leg pain for the last few days - History of Present Illness Patient is 79-year-old male well known to my service from care at the [facility] wound care, patient who do have a history of peripheral arterial disease and is status post bypass and thrombectomy on the right leg, patient has been brought to the ER at [facility] with chief complaints of right leg and foot pain that has been getting worse for the last few days. Patient describes the pain to be throbbing sharp almost on a 10 in severity with no radiation the patient has developed bluish discoloration of his right fourth toe with some surrounding swelling no significant redness no open wound or any drainage patient be followed with significant hypertensive on arrival to the ER along with the renal failure with elevated creatinine the patient has been doing fluid boluses and admitted to ICU on pressors patient has been treated with Zosyn and vancomycin and infectious disease was consulted for further recommendation regarding antibiotic therapy Review of Systems Positive points has been mentioned in HPI rest of the systems negative Past Medical History Past Medical History: Atrial Flutter, Blood Disorder, Coronary Artery Disease (CAD), Heart Failure, GERD/Reflux, GI Bleed, Hyperlipidemia, Hypertension, Myocardial Infarction ([place]), Prostate Disorder, Vascular Disorder Additional Past Medical History / Comment(s): myeloproliferative disorder(leukocytosis and thrombocytosis), esophagitis, severe PAD, severe pulmonary hypertension , right-sided heart failure with severe pulmonary hypertension, BPH, Exercise intolerance Last Myocardial Infarction Date:: 2017 History of Any Multi-Drug Resistant Organisms: Acinetobacter (MDRO), 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 tom inguinal hernia repair, EGD, colonoscopy. Cath with PCI to RCA 02/04/19. Cabg x3 2007. Past Anesthesia/Blood Transfusion Reactions: No Reported Reaction Past Psychological History: No Psychological Hx Reported Additional Psychological History / Comment(s): . . Smoking Status: Former smoker Past Alcohol Use History: Rare Additional Past Alcohol Use History / Comment(s): STARTED SMOKING AT AGE 16 QUIT AT AGE 40 SMOKED 1 1/2 PPD Past Drug Use History: None Reported - Past Family History Brother(s) Family Medical History: Cancer Additional Family Medical History / Comment(s): 2 with lung and 1 with prostate Mother Family Medical History: Myocardial Infarction ([place]) Father History Unknown: Yes Additional Family Medical History / Comment(s): AT AGE 83 FROM "HARDENING OF THE ARTERIES" Medications and Allergies Home Medications Medication Instructions Recorded Confirmed Type Atorvastatin [Lipitor] 40 mg PO HS 09/27/14 05/03/19 History Spironolactone [Aldactone] 25 mg PO BID 11/12/17 05/03/19 History Aspirin 81 mg PO DAILY #30 chew 04/07/18 05/03/19 Rx Clopidogrel [Plavix] 75 mg PO DAILY #30 tab 04/07/18 05/03/19 Rx Pantoprazole Sodium [Protonix] 40 mg PO DAILY 07/14/18 05/03/19 History Metoprolol Tartrate [Lopressor] 50 mg PO BID 02/12/19 05/03/19 History rOPINIRole HCL [Requip] 1 mg PO HS 02/12/19 05/03/19 History Terazosin [Hytrin] 5 mg PO HS 02/28/19 05/03/19 History Allopurinol [Zyloprim] 100 mg PO DAILY 03/31/19 05/03/19 History Epoetin [place] [Procrit] 40,000 units IV WEEKLY 04/03/19 05/03/19 History predniSONE 40 mg PO DAILY tab 04/04/19 05/03/19 Rx Amiodarone [Cordarone] 200 mg PO HS 04/20/19 05/03/19 History Furosemide [Lasix] 40 mg PO HS #30 tab 04/27/19 05/03/19 Rx Furosemide [Lasix] 60 mg PO DAILY #30 tab 04/27/19 05/03/19 Rx Naproxen [Naprosyn] 375 mg PO Q12HR #30 tablet 04/27/19 05/03/19 Rx Allergies Allergy/AdvReac Type Severity Reaction Status Date / Time No Known Allergies Allergy Verified 04/20/19 18:04 Physical Exam Vitals: Vital Signs Temp Pulse Resp BP Pulse Ox 05/04/19 12:00 77 20 107/64 95 05/04/19 11:45 79 20 108/64 94 L 05/04/19 11:30 78 16 105/59 92 L 05/04/19 11:15 92 16 109/59 96 05/04/19 11:00 79 18 104/51 96 05/04/19 10:45 70 17 106/60 96 05/04/19 10:30 82 28 H 100/57 95 05/04/19 10:15 65 25 H 104/53 95 05/04/19 10:00 70 20 98/55 89 L 05/04/19 09:45 85 23 106/57 05/04/19 09:30 91 19 100/70 90 L 05/04/19 09:15 85 16 83/47 88 L 05/04/19 09:00 75 15 90/59 90 L 05/04/19 08:45 73 18 113/58 90 L 05/04/19 08:30 96 16 102/51 95 05/04/19 08:15 81 13 103/51 05/04/19 08:00 97.8 F 76 18 112/44 96 05/04/19 07:45 69 16 105/62 96 05/04/19 07:30 81 17 82/50 95 05/04/19 07:15 85 18 110/38 94 L 05/04/19 07:00 76 29 H 103/63 95 05/04/19 06:45 84 13 111/56 96 05/04/19 06:30 80 22 105/56 96 05/04/19 06:15 80 24 81/52 95 05/04/19 06:00 85 12 105/58 96 05/04/19 05:45 89 18 111/58 96 05/04/19 05:30 87 14 112/54 96 05/04/19 05:15 84 11 L 105/56 97 05/04/19 05:00 75 26 H 106/54 97 05/04/19 04:45 86 15 98/55 96 05/04/19 04:30 75 21 103/54 96 05/04/19 04:15 79 19 98/59 96 05/04/19 04:00 98 F 70 20 90/48 96 05/04/19 03:45 79 17 102/52 05/04/19 03:30 73 20 99/58 05/04/19 03:15 80 20 93/56 96 05/04/19 03:00 78 16 100/73 98 05/04/19 02:45 82 29 H 96/43 90 L 05/04/19 02:30 80 28 H 92/45 96 05/04/19 02:15 77 19 89/60 97 05/04/19 02:00 80 18 86/61 97 05/04/19 01:45 85 24 93/58 96 05/04/19 01:30 85 14 90/52 96 05/04/19 01:15 87 27 H 101/54 98 05/04/19 01:00 78 27 H 89/58 95 05/04/19 00:45 76 32 H 92/50 96 05/04/19 00:30 80 14 85/44 96 05/04/19 00:15 84 14 98/55 05/04/19 00:08 73 13 96 05/04/19 00:00 97.8 F 81 10 L 75/46 97 05/03/19 23:45 80 16 87/53 97 05/03/19 23:30 71 18 91/44 96 05/03/19 23:15 70 16 88/45 96 05/03/19 23:00 68 19 77/53 97 05/03/19 22:45 72 13 70/42 95 05/03/19 22:30 75 24 69/49 96 05/03/19 22:15 68 10 L 75/41 97 05/03/19 22:00 80 21 75/41 95 05/03/19 21:30 79 21 85/50 96 05/03/19 21:00 76 22 84/47 97 05/03/19 20:30 75 31 H 98/79 96 05/03/19 20:00 98 F 72 17 92/51 97 05/03/19 19:30 72 16 92/50 98 05/03/19 19:00 83 18 96/61 99 05/03/19 18:30 75 15 94/52 97 05/03/19 18:00 98.2 F 77 17 87/55 99 05/03/19 17:07 98.1 F 76 18 87/56 05/03/19 16:25 88 14 98/56 96 05/03/19 15:52 90 16 90/56 100 05/03/19 13:55 73 18 83/52 94 L 05/03/19 13:45 98.1 F 81 18 75/49 93 L Intake and Output 05/03/19 05/04/19 05/04/19 22:59 06:59 14:59 Intake Total 950 0905.827 9987 Output Total 740 385 Balance 950 518.670 789 Intake: IV 950 1060 820 Piperacillin-Tazobactam 3 100 100 100 .375 gm In Sodium Chloride 0.9% 100 ml @ 25 mls/hr IVPB Q8HR JOSE Rx# :[id number] Sodium Chloride 0.9% 1, 600 960 720 000 ml @ 120 mls/hr IV . Q8H20M JOSE Rx#:[id number] Vancomycin 1,250 mg In 250 Sodium Chloride 0.9% 250 ml @ 125 mls/hr IVPB DAILY JOSE Rx#:[id number] Intake, IV Titration 198.670 254 Amount Norepinephrine 4 mg In 198.670 254 Sodium Chloride 0.9% 250 ml @ 0.05 MCG/KG/MIN 13. 394 mls/hr IV .[id number] JOSE Rx#:[id number] Oral 100 Output: Urine 740 385 Other: Voiding Method Bedside Commode Indwelling Catheter Indwelling Catheter Urinal # Voids 1 # Bowel Movements 1 Weight 76.3 kg GENERAL DESCRIPTION: An elderly male lying in bed, no distress. No tachypnea or accessory muscle of respiration use. HEENT: Shows Pallor , no scleral icterus. Oral mucous membrane is dry. No pharyngeal erythema or thrush NECK: Trachea central, no thyromegaly. LUNGS: Unlabored breathing. Clear to auscultation anteriorly. No wheeze or crackle. HEART: S1, S2, regular rate and rhythm. No loud murmur ABDOMEN: Soft, no tenderness , guarding or rigidity, no organomegaly EXTREMITIES: Right fourth toe with bluish discoloration tender to touch no wound or any drainage. SKIN: No rash, no masses palpable. NEUROLOGICAL: The patient is awake, alert, oriented x3, mood and affect normal Results CBC & Chem 7: 05/04/19 04:47 05/04/19 04:47 Labs: Abnormal Lab Results - Last 24 Hours (Table) 05/03/19 05/03/19 05/03/19 Range/Units 13:48 13:48 13:48 WBC 35.6 H (3.8-10.6) k/uL RBC 3.17 L (4.30-5.90) m/uL Hgb 8.5 L (13.0-17.5) gm/dL Hct 28.2 L (39.0-53.0) % MCHC 30.2 L (31.0-37.0) g/dL RDW 26.7 H (11.5-15.5) % Neutrophils # (Manual) 33.40 H (1.3-7.7) k/uL Lymphocytes # (Manual) 0.71 L (1.0-4.8) k/uL Eosinophils # (Manual) 0.71 H (0-0.7) k/uL Metamyelocytes # (Man) 0.36 H (0) k/uL Myelocytes # (Manual) 0.36 H (0) k/uL Nucleated RBCs (0-0) /100 WBC PT 14.3 H (9.0-12.0) sec INR 1.4 H (<1.2) APTT 30.7 H (22.0-30.0) sec Sodium 131 L (137-145) mmol/L Potassium 5.4 H (3.5-5.1) mmol/L Carbon Dioxide 20 L (22-30) mmol/L BUN 86 H (9-20) mg/dL Creatinine 2.12 H (0.66-1.25) mg/dL Glucose 136 H (74-99) mg/dL POC Glucose (mg/dL) (75-99) mg/dL Uric Acid (3.5-8.5) mg/dL Calcium 7.8 L (8.4-10.2) mg/dL Total Bilirubin 2.0 H (0.2-1.3) mg/dL Alkaline Phosphatase 134 H (38-126) U/L Total Protein 5.3 L (6.3-8.2) g/dL Albumin 2.9 L (3.5-5.0) g/dL Urine Protein (Negative) 05/03/19 05/03/19 05/03/19 Range/Units 13:48 16:23 18:02 WBC (3.8-10.6) k/uL RBC (4.30-5.90) m/uL Hgb (13.0-17.5) gm/dL Hct (39.0-53.0) % MCHC (31.0-37.0) g/dL RDW (11.5-15.5) % Neutrophils # (Manual) (1.3-7.7) k/uL Lymphocytes # (Manual) (1.0-4.8) k/uL Eosinophils # (Manual) (0-0.7) k/uL Metamyelocytes # (Man) (0) k/uL Myelocytes # (Manual) (0) k/uL Nucleated RBCs (0-0) /100 WBC PT (9.0-12.0) sec INR (<1.2) APTT (22.0-30.0) sec Sodium (137-145) mmol/L Potassium (3.5-5.1) mmol/L Carbon Dioxide (22-30) mmol/L BUN (9-20) mg/dL Creatinine (0.66-1.25) mg/dL Glucose (74-99) mg/dL POC Glucose (mg/dL) 118 H (75-99) mg/dL Uric Acid 16.9 H* (3.5-8.5) mg/dL Calcium (8.4-10.2) mg/dL Total Bilirubin (0.2-1.3) mg/dL Alkaline Phosphatase (38-126) U/L Total Protein (6.3-8.2) g/dL Albumin (3.5-5.0) g/dL Urine Protein Trace H (Negative) 05/04/19 05/04/19 Range/Units 04:47 04:47 WBC 41.2 H (3.8-10.6) k/uL RBC 3.32 L (4.30-5.90) m/uL Hgb 8.8 L (13.0-17.5) gm/dL Hct 30.4 L (39.0-53.0) % MCHC 29.0 L (31.0-37.0) g/dL RDW 26.0 H (11.5-15.5) % Neutrophils # (Manual) 38.30 H (1.3-7.7) k/uL Lymphocytes # (Manual) (1.0-4.8) k/uL Eosinophils # (Manual) (0-0.7) k/uL Metamyelocytes # (Man) (0) k/uL Myelocytes # (Manual) (0) k/uL Nucleated RBCs 2 H (0-0) /100 WBC PT (9.0-12.0) sec INR (<1.2) APTT (22.0-30.0) sec Sodium 135 L (137-145) mmol/L Potassium (3.5-5.1) mmol/L Carbon Dioxide 15 L (22-30) mmol/L BUN 71 H (9-20) mg/dL Creatinine 1.78 H (0.66-1.25) mg/dL Glucose 107 H (74-99) mg/dL POC Glucose (mg/dL) (75-99) mg/dL Uric Acid (3.5-8.5) mg/dL Calcium 6.8 L (8.4-10.2) mg/dL Total Bilirubin (0.2-1.3) mg/dL Alkaline Phosphatase (38-126) U/L Total Protein (6.3-8.2) g/dL Albumin (3.5-5.0) g/dL Urine Protein (Negative) Microbiology - Last 24 Hours (Table) 05/03/19 16:23 Urine Culture - Preliminary Urine,Clean Catch Assessment and Plan Assessment: 1-patient has been admitted to the hospital with significant pain to the right foot and the leg area and this patient who did have history of peripheral arterial disease now with evidence of bruit discussion of his right foot fourth toe with question of possible thromboembolic phenomena in this patient who do have underlying A. fib but not on any anticoagulation because of underlying GI bleed 2-elevated white count more likely secondary to gangrenous changes to the right fourth toe and possible reactive 3-patient has previously grown MSSA and no history of MRSA infection 4-patient with borderline kidney function high risk of nephrotoxicity from vancomycin Plan: 1-patient be continued on Zosyn 3.375gm every 8 over however discontinue the vancomycin to decrease risk of nephrotoxicity 2-await vascular surgery evaluation we will follow up on clinical condition and cultures to further adjust medication if needed Thank you for this consultation will follow this patient along with you Time with Patient: Greater than 30
[2019-05-05 05:50] LABS: Anisocytosis Marked; HCT 27.7 % (39.0-53.0); Hypochromasia Marked; MCV 93.2 fL (80.0-100.0); Macrocytosis Moderate; Microcytosis Slight; Platelet Count 310 k/uL (150-450); Poikilocytosis Marked; RBC 2.97 m/uL (4.30-5.90)
[2019-05-05 05:59] LABS: Potassium 4.5 mmol/L (3.5-5.1)
[2019-05-05 06:23] LABS: Calcium 6.2 mg/dL (8.4-10.2)
[2019-05-05 06:44] LABS: RDW 25.9 % (11.5-15.5)
--- NOTE | 2019-05-05 07:53 | P.GSCN ---
History of Present Illness Consult date: 05/05/19 Reason for Consult: L 4th toe gangrene History of present illness: Pt is a 79 year old male with multiple comorbidities, CAD, AF, CHF, hyperlip idemia, hypertension, who was initially admitted for CHF exacerbation. He was initially diuresed and improved his volume overload. He was then experiencing bouts of hypotension. At this time he is on Levo in the ICU. We are asked to see this patient regarding a discolered right 4th toe. He is known to our group from a previous Right femoral endarterectomy and SFA endovascular intervention. He also subsequently had a right femoral pseudoaneurysm following a heart catheterization that required exploration and repair. He states that his toe began turning a different color in the past few days with this hospital stay. He has a history of multiple toe infections in the past that respond to conser vative treatment and antibiotics. He denies any fever, chills, nausea, vomiting, chest pain or SOB. Review of Systems reviewed with pertinent positives and negatives per the hpi All systems: negative (what is mentioned in the HPI or PMH) Past Medical History Past Medical History: Atrial Flutter, Blood Disorder, Coronary Artery Disease (CAD), Heart Failure, GERD/Reflux, GI Bleed, Hyperlipidemia, Hypertension, Myocardial Infarction ([place]), Prostate Disorder, Vascular Disorder Additional Past Medical History / Comment(s): myeloproliferative disorder(leukocytosis and thrombocytosis), esophagitis, severe PAD, severe pulmonary hypertension , right-sided heart failure with severe pulmonary hypertension, BPH, Exercise intolerance Last Myocardial Infarction Date:: 2017 History of Any Multi-Drug Resistant Organisms: Acinetobacter (MDRO), 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 tom inguinal hernia repair, EGD, colonoscopy. Cath with PCI to RCA 02/04/19. Cabg x3 2007. Past Anesthesia/Blood Transfusion Reactions: No Reported Reaction Past Psychological History: No Psychological Hx Reported Additional Psychological History / Comment(s): . . Smoking Status: Former smoker Past Alcohol Use History: Rare Additional Past Alcohol Use History / Comment(s): STARTED SMOKING AT AGE 16 QUIT AT AGE 40 SMOKED 1 1/2 PPD Past Drug Use History: None Reported - Past Family History Brother(s) Family Medical History: Cancer Additional Family Medical History / Comment(s): 2 with lung and 1 with prostate Mother Family Medical History: Myocardial Infarction ([place]) Father History Unknown: Yes Additional Family Medical History / Comment(s): AT AGE 83 FROM "HARDENING OF THE ARTERIES" Medications and Allergies Home Medications Medication Instructions Recorded Confirmed Type Atorvastatin [Lipitor] 40 mg PO HS 09/27/14 05/03/19 History Spironolactone [Aldactone] 25 mg PO BID 11/12/17 05/03/19 History Aspirin 81 mg PO DAILY #30 chew 04/07/18 05/03/19 Rx Clopidogrel [Plavix] 75 mg PO DAILY #30 tab 04/07/18 05/03/19 Rx Pantoprazole Sodium [Protonix] 40 mg PO DAILY 07/14/18 05/03/19 History Metoprolol Tartrate [Lopressor] 50 mg PO BID 02/12/19 05/03/19 History rOPINIRole HCL [Requip] 1 mg PO HS 02/12/19 05/03/19 History Terazosin [Hytrin] 5 mg PO HS 02/28/19 05/03/19 History Allopurinol [Zyloprim] 100 mg PO DAILY 03/31/19 05/03/19 History Epoetin [place] [Procrit] 40,000 units IV WEEKLY 04/03/19 05/03/19 History predniSONE 40 mg PO DAILY tab 04/04/19 05/03/19 Rx Amiodarone [Cordarone] 200 mg PO HS 04/20/19 05/03/19 History Furosemide [Lasix] 40 mg PO HS #30 tab 04/27/19 05/03/19 Rx Furosemide [Lasix] 60 mg PO DAILY #30 tab 04/27/19 05/03/19 Rx Naproxen [Naprosyn] 375 mg PO Q12HR #30 tablet 04/27/19 05/03/19 Rx Allergies Allergy/AdvReac Type Severity Reaction Status Date / Time No Known Allergies Allergy Verified 04/20/19 18:04 Surgical - Exam Vital Signs Temp Pulse Resp BP Pulse Ox 98.1 F 81 18 75/49 93 L 05/03/19 13:45 05/03/19 13:45 05/03/19 13:45 05/03/19 13:45 05/03/19 13:45 - General no distress, chronically ill - Eyes PERRL, normal ocular movement - ENT normal mucosa - Neck no masses, trachea midline - Respiratory normal expansion (on o2 per NC) - Cardiovascular Rhythm: irregularly irregular - Abdomen Abdomen: soft, non tender - Integumentary no rash - Psychiatric oriented to time, oriented to person palpable radial and femoral pulses bilaterally. No evidence of PSA, right groin incision well healed. non palpable DP/PT. right 4th toe with cyanotic discoloration, some serous drainage. ulceration on lateral side of digit. non purulent Results lower extremity doppler reviewed, non compressible throughout. bi to monophasic waveforms - Labs 05/05/19 04:21 05/05/19 04:21 Abnormal Lab Results - Last 24 Hours (Table) 05/05/19 05/05/19 Range/Units 04:21 04:21 WBC 35.4 H (3.8-10.6) k/uL RBC 2.97 L (4.30-5.90) m/uL Hgb 8.0 L (13.0-17.5) gm/dL Hct 27.7 L (39.0-53.0) % MCHC 29.0 L (31.0-37.0) g/dL RDW 25.9 H (11.5-15.5) % Sodium 136 L (137-145) mmol/L Chloride 111 H (98-107) mmol/L Carbon Dioxide 15 L (22-30) mmol/L BUN 54 H (9-20) mg/dL Creatinine 1.39 H (0.66-1.25) mg/dL Glucose 165 H (74-99) mg/dL Calcium 6.2 L* (8.4-10.2) mg/dL Microbiology - Last 24 Hours (Table) 05/03/19 16:23 Urine Culture - Final Urine,Clean Catch 05/03/19 13:48 Blood Culture - Preliminary Blood No Growth after 24 hours Diabetes panel 05/05/19 Range/Units 04:21 Sodium 136 L (137-145) mmol/L Potassium 4.5 (3.5-5.1) mmol/L Chloride 111 H (98-107) mmol/L Carbon Dioxide 15 L (22-30) mmol/L BUN 54 H (9-20) mg/dL Creatinine 1.39 H (0.66-1.25) mg/dL Glucose 165 H (74-99) mg/dL Calcium 6.2 L* (8.4-10.2) mg/dL Calcium panel 05/05/19 Range/Units 04:21 Calcium 6.2 L* (8.4-10.2) mg/dL Pituitary panel 05/05/19 Range/Units 04:21 Sodium 136 L (137-145) mmol/L Potassium 4.5 (3.5-5.1) mmol/L Chloride 111 H (98-107) mmol/L Carbon Dioxide 15 L (22-30) mmol/L BUN 54 H (9-20) mg/dL Creatinine 1.39 H (0.66-1.25) mg/dL Glucose 165 H (74-99) mg/dL Calcium 6.2 L* (8.4-10.2) mg/dL Adrenal panel 05/05/19 Range/Units 04:21 Sodium 136 L (137-145) mmol/L Potassium 4.5 (3.5-5.1) mmol/L Chloride 111 H (98-107) mmol/L Carbon Dioxide 15 L (22-30) mmol/L BUN 54 H (9-20) mg/dL Creatinine 1.39 H (0.66-1.25) mg/dL Glucose 165 H (74-99) mg/dL Calcium 6.2 L* (8.4-10.2) mg/dL Assessment and Plan Assessment: 1. Right lower extremity 4th toe wound/infection Fluker 5 2. Atherosclerotic disease of the bilateral lower extremities 3. CHF exacerbation 4. HTN, currently hypotensive on pressor support 5. atrial fibrillation 6. Hyperlipidemia 7. Coronary artery disease Plan: Agree with antibiotic at this time for right 4th toe infection. Would consider non urgent angiogram if stable and no signs of improvement after conservative treatment. May need 4th toe amputation if worsened. Continue supportive care. Discussed with patient who seemingly understands.
--- NOTE | 2019-05-05 08:27 | CONS ---
CONSULTATION Jacques Burk is a patient who is very well known to me. He has CAD, prior bypass surgery and PCI. He has severe pulmonary hypertension, persistent atrial fibrillation, peripheral arterial disease with previous surgical and percutaneous interventions by Dr. Britton and Dr. Cline. He also has a gout as well. He was recently discharged when he came in with exacerbation of diastolic heart failure and pulmonary hypertension. He was sent home on oral dose of Lasix. However, he comes in dehydrated, complains of pain in both his lower extremities and on the right fourth toe he has evidence of what seems to be an inflamed area, possibility of a cholesterol embolus should be considered. He is in with these issues. I had made arrangements for him to have a Watchman procedure for his atrial fibrillation since he cannot be anticoagulated and this is actually scheduled at [facility] by Dr. Curtis Redmond on the of this month. He had another opportunity to go on the , but because of his condition, he is wishing to go on the . I am seeing him because of his hospitalization with hypotension and discomfort in his lower extremities. I can feel the lower extremity pulse distally on the left lower extremity and also Doppler pulse on the right. I do not believe there is any acute ischemia. The discoloration in the fourth toe probably suggests a cholesterol embolus because of extensive peripheral vascular disease. This gentleman had a GI bleed and therefore his anticoagulation was stopped, but he is on aspirin and Plavix. He had intervention of a nondominant RCA in February performed by me. PAST MEDICAL HISTORY: 1. Persistent atrial fibrillation. 2. CAD with prior bypass surgery and PCI. 3. GI bleeding which prohibits use of anticoagulants. 4. Severe pulmonary hypertension. 5. History of peripheral arterial disease with previous percutaneous and surgical intervention. MEDICATIONS: Medications at home include Lipitor, Aldactone, aspirin, Plavix, metoprolol tartrate 50 mg b.i.d., amiodarone 200 mg daily, Lasix 60 mg in the morning and 40 in the afternoon and Hytrin. ALLERGIES: None. PHYSICAL EXAMINATION: On examination, patient is on a small dose of Levophed. Blood pressure is about 110 systolic. He is making some urine. HEENT: Unremarkable. Fundus was not examined by me. NECK: Supple. There is JVD of nearly 1 to 2 cm. No carotid bruit. HEART: Exam reveals S1, S2 with a short systolic murmur. Irregular rate and rhythm noted. LUNGS: Reveal bilateral air entry. ABDOMEN: Is soft. LOWER EXTREMITIES: Pulses are diminished. There is a discoloration of the right fifth toe. IMPRESSION: 1. Dehydration in a patient with known multiple medical problems. 2. Pulmonary hypertension. 3. Rule out ischemia of the right lower extremity/toe. The possibility of cholesterol embolus should be considered in a patient with peripheral arterial disease. 4. Coronary artery disease with prior PCI and bypass surgery. 5. History of peripheral arterial disease. RECOMMENDATIONS: I am recommending cautious hydration to wean off the Levophed and hopefully seek input from Dr. Cline regarding his discoloration of the toe and if he is well discharge him soon enough so he can go to [facility] and get a Watchman procedure. Discussed my thoughts in detail with the patient. Thank you very much for the consult. PEDROL / IJN: [id number] /
[2019-05-05 08:44] LABS: Band Neutrophils % 4 %; Metamyelocytes # (M) 1.05 k/uL (0); Metamyelocytes % 3 %; Monocytes # (M) 0.35 k/uL (0-1.0); Myelocytes # (M) 1.05 k/uL (0); Myelocytes % 3 %; Neutrophils % (M) 88 %; Nucleated Red Blood Cells 1 /100 WBC (0-0); Total Cells Counted 200
[2019-05-05 08:45] LABS: Ovalocytes Present; Polychromasia Present; RBC Fragments Present
[2019-05-05] MEDS: PANTOPRAZOLE 40 MG TABLET PO SCH (09:33)
[2019-05-05] MEDS: ALLOPURINOL 100 MG TAB PO SCH (09:34)
[2019-05-05] MEDS: CALCIUM CARBONATE 500 MG CHEWABLE PO SCH ×2 (09:35→20:21)
[2019-05-05] MEDS: METOPROLOL TARTRATE 12.5 MG TAB PO SCH (09:35)
[2019-05-05] MEDS: CLOPIDOGREL 75 MG TAB PO SCH (09:35)
[2019-05-05] MEDS: ASPIRIN 81 MG PO SCH (09:35)
[2019-05-05] MEDS: PIPERACILLIN-TAZOBACTAM 3.375 GM in SODIUM CHLORIDE 0.9% 100 ML IVPB SCH ×3 (09:36→23:05)
[2019-05-05] MEDS: HEPARIN SODIUM,PORCINE 5,000 UNIT/ML 1 ML VIAL SQ SCH ×3 (09:37→23:05)
[2019-05-05] MEDS: MORPHINE SULFATE 2 MG/ML SYRINGE IVP PRN ×6 (09:53→22:29)
[2019-05-05 11:53] LABS: Glucose,Whole Blood 189 mg/dL (75-99)
--- NOTE | 2019-05-05 12:43 | P.PN ---
Subjective Progress Note Date: 05/05/19 Principal diagnosis: Right lower extremity pain Patient seen and examined. No acute events overnight. Patient continues to complain of right lower extremity pain, 10 out of 10 in severity, unchanged from yesterday. Also complains of tightness in the right calf. Denies any chest pain or palpitations. No nausea or vomiting. No fever or chills. Currently off pressors. Objective - Vital Signs Vital signs: Vital Signs Temp 97.6 F 05/05/19 08:00 Pulse 94 05/05/19 08:00 Resp 17 05/05/19 08:00 BP 123/65 05/05/19 08:00 Pulse Ox 95 05/05/19 08:00 Intake & Output 05/04/19 05/05/19 05/05/19 18:59 06:59 18:59 Intake Total 2197.938 1393.889 300 Output Total 860 740 115 Balance 1337.938 653.889 185 Weight 80.5 kg Intake: IV 1540 1190 150 Piperacillin-Tazobactam 3 100 200 .375 gm In Sodium Chloride 0.9% 100 ml @ 25 mls/hr IVPB Q8HR JOSE Rx# :[id number] Sodium Chloride 0.9% 1, 1440 990 150 000 ml @ 75 mls/hr IV . [id number] JOSE Rx#:[id number] Intake, IV Titration 507.938 78.889 Amount Norepinephrine 4 mg In 507.938 78.889 Sodium Chloride 0.9% 250 ml @ 0.05 MCG/KG/MIN 13. 394 mls/hr IV .[id number] JOSE Rx#:[id number] Oral 150 125 150 Output: Urine 860 740 115 Other: Voiding Method Indwelling Catheter Indwelling Catheter Indwelling Catheter - Exam General: [non toxic], [no distress], [appears at stated age] Derm: [warm], [dry] Head: [atraumatic], [normocephalic], [symmetric] Eyes: [EOMI], [no lid lag], [anicteric sclera] Mouth: [no lip lesion], [mucus membranes moist] Cardiovascular: [S1S2 reg], [irregularly irregular], [negative DP pulse right lower extremity, able to Doppler per nurse] Lungs: [CTA bilateral], [no rhonchi, no rales] , [no accessory muscle use] Abdominal: [soft], [ nontender to palpation], [no guarding], [no appreciable organomegaly] Ext: [no gross muscle atrophy], [ lower extremity edema], [no contractures] Neuro: [right fourth toe purple discoloration with erythema that extends to the mid oh and inner thigh] Psych: [Alert], [oriented], [appropriate affect] - Labs CBC & Chem 7: 05/05/19 04:21 05/05/19 04:21 Labs: Abnormal Lab Results - Last 24 Hours (Table) 05/05/19 05/05/19 05/05/19 Range/Units 04:21 04:21 11:42 WBC 35.0 H (3.8-10.6) k/uL RBC 2.97 L (4.30-5.90) m/uL Hgb 8.0 L (13.0-17.5) gm/dL Hct 27.7 L (39.0-53.0) % MCHC 29.0 L (31.0-37.0) g/dL RDW 25.9 H (11.5-15.5) % Neutrophils # (Manual) 32.20 H (1.3-7.7) k/uL Lymphocytes # (Manual) 0.70 L (1.0-4.8) k/uL Metamyelocytes # (Man) 1.05 H (0) k/uL Myelocytes # (Manual) 1.05 H (0) k/uL Nucleated RBCs 1 H (0-0) /100 WBC Sodium 136 L (137-145) mmol/L Chloride 111 H (98-107) mmol/L Carbon Dioxide 15 L (22-30) mmol/L BUN 54 H (9-20) mg/dL Creatinine 1.39 H (0.66-1.25) mg/dL Glucose 165 H (74-99) mg/dL POC Glucose (mg/dL) 189 H (75-99) mg/dL Calcium 6.2 L* (8.4-10.2) mg/dL Microbiology - Last 24 Hours (Table) 05/03/19 16:23 Urine Culture - Final Urine,Clean Catch 05/03/19 13:48 Blood Culture - Preliminary Blood No Growth after 24 hours Assessment and Plan Assessment: Assessment and Plan Right 4th toe discoloration, possibly related to thromboembolic disease Sepsis, possibly related to right lower extremity cellulitis Acute on chronic systolic CHF exacerbation Hypocalcemia Acute kidney injury with metabolic acidosis Myeloproliferative disorder with leukocytosis CAD with recent RCA stent Atrial flutter Gout Patient with history of right lower extremity ischemia with common femoral severe occlusive disease status post right common femoral artery endarterectomy in March 2018. As per RN, able to Doppler DP of right foot. Plans: Pain control with Tylenol or morphine as needed. Dr. Cline consutled, recommends continuation of IV Antibiotics and possible angiogram on . Neurochecks and right lower extremity. Continue aspirin and Plavix. Patient hypotensive to a SBP 81, leukocytosis of 35.6 on admission, positive ben rce of infection. Likely related to right lower extremity cellulitis. Lactic acid negative. Urine culture negative. Blood culture negative at 24 hours. Plans: Continue Levophed to maintain MAP > 65. Continue normal saline at 75 mL per hour (decreased from 120 cc/h). Tylenol as needed for fever. Discontinue vancomycin and continue Zosyn as per ID for treatment of cellulitis. Follow blood culture. Follow infectious disease consult. Chest x-ray with concerns of pulmonary edema secondary to CHF exacerbation. Plans: Hold Lasix. Hold spironolactone. Metoprolol restarted by cardiology. Plans to reintroduce when BP improved. Strict intake and output take. Daily weight. We'll be cautious as patient is being hydrated with IVF. Follow cardiology consultation. Calcium 6.2. Plans: 1 g IV calcium gluconate. Repeat in the morning. Creatinine from 2.12-1.78-1.39. HCO3 20-15. Likely secondary to diuresis. Renal ultrasound shows abdominal ascites, no hydronephrosis or nephrolithiasis. Plans: Daily BMP. Avoid nephrotoxins. Follow nephrology consultation. WBC count 35.6-41.2-35, hemoglobin 8.5-8.8-8.0. Leukocytosis likely stress- induced. Gets weekly Procrit injections at Dr. Miller's office. Plan: Daily CBC. Plan: Continue aspirin, Plavix and Lipitor. Hold beta quan due to hypotension Plan: No anticoagulation due to recurrent GI bleeds. Continue amiodarone. Hold beta quan due to hypotension. Telemetry monitoring. Follow cardiology consult. Uric acid elevated at 16.9. Plans: We'll continue prednisone. Pain control with Tylenol or morphine. Follow PT recommendations. Patient admitted for possible sepsis due to right lower extremity cellulitis, ID on board. There are some concerns for thromboembolic disease of the right lower extremity, vascular surgery was consulted. Cardiology consulted for CHF exacerbation. Patient is pending clinical improvement. Prognosis is guarded.
--- NOTE | 2019-05-05 13:54 | P.PN ---
Subjective Progress Note Date: 05/05/19 This is a 79-year-old male patient with known history of extensive peripheral vascular disease with previous fem-pop arthrectomy and bovine patch insertion in addition to history of chronic atrial fibrillation was not been able to maintain on anticoagulation because of alcohol GI bleeding. The patient also known to have coronary artery disease, diastolic heart failure, hypertension and hyperlipidemia and gout. The patient came into the hospital yesterday because of an extensive right leg pain. The pain was mainly over the posterior aspect of his right callus and the patient also developed a bluish discoloration of the fourth toe. There was also some erythematous rash over the oh and over the anterior/medial thigh area where the vascular intervention was done earlier. On examination, the area is quite painful. The patient had a Doppler of the right lower x-ray that showed no evidence of any DVT. Pulses were obtained by Doppler signal in the popliteal dorsalis pedis and anterior tibialis. The patient is adequate femoral vein in the right groin area that was palpable. The patient is afebrile. The patient is hemodynamically stable. He was started on antibiotics for now. His cardiac rhythm remains in atrial fibrillation. The patient had a repeat echocardiogram today that showed severe pulmonary hypertension which has been noted on previous echocardiogram with a PA pressure estimated to be in the 90 mmHg range. He was furthermore found to have elevated uric acid level which probably is not related to this current presentation. The patient has underlying history of gout. The patient's current white count is 41.2. The patient has significant neutrophilia of 38%. The patient was started on accommodation Zosyn and vancomycin. The patient is on no pressors for now. Outpatient medications have been ordered resume. The primary cultures are negative for the past 24 hours. On today's evaluation of 72,019 the patient is being seen for a follow-up. He has a bluish/necrotic fourth toe. The erythema over the thigh still present. Erythema of the calvaria still present. The area is less tender compared to yesterday. Hemodynamically stable and the patient is currently off pressors. He is afebrile. He is covered with Zosyn. White cell count is down to 35. Repeat blood cultures of been all negative. Clinically much more alert and awake compared to yesterday. No chest pain. No significant shortness of breath. Slightly acidotic with a bicarb level of 15. This is an anion gap metabolic acidosis. Creatinine is down to 1.39 and the patient shows some improvement in renal function compared to yesterday. Cardiac rhythm is atrial fibrillation. Echocardiogram results were discussed yesterday the patient has severe pulmonary hypertension. The patient was seen by vascular surgery. Their impression is consistent with right fourth toe wound/infection with atherosclerotic disease involving lower oximetry is bilaterally. An angiogram as being planned at a later stage is no signs of improvement after conservative treatment. May need a fourth toe amputation at a later stage. Objective - Vital Signs Vital signs: Vital Signs Temp 97.6 F 05/05/19 08:00 Pulse 94 05/05/19 08:00 Resp 17 05/05/19 08:00 BP 123/65 05/05/19 08:00 Pulse Ox 95 05/05/19 08:00 Intake & Output 05/04/19 05/05/19 05/05/19 18:59 06:59 18:59 Intake Total 2197.938 1393.889 300 Output Total 860 740 115 Balance 1337.938 653.889 185 Weight 80.5 kg Intake: IV 1540 1190 150 Piperacillin-Tazobactam 3 100 200 .375 gm In Sodium Chloride 0.9% 100 ml @ 25 mls/hr IVPB Q8HR JOSE Rx# :[id number] Sodium Chloride 0.9% 1, 1440 990 150 000 ml @ 75 mls/hr IV . [id number] JOSE Rx#:[id number] Intake, IV Titration 507.938 78.889 Amount Norepinephrine 4 mg In 507.938 78.889 Sodium Chloride 0.9% 250 ml @ 0.05 MCG/KG/MIN 13. 394 mls/hr IV .[id number] JOSE Rx#:[id number] Oral 150 125 150 Output: Urine 860 740 115 Other: Voiding Method Indwelling Catheter Indwelling Catheter Indwelling Catheter - Exam Gen. appearance the patient is a mild degree of pain in the right lower extremity. Head exam was generally normal. There was no scleral icterus or corneal arcus. Mucous membranes were moist. Neck was supple and without jugular venous distension, thyromegaly, or carotid bruits. Carotids were easily palpable bilaterally. There was no adenopathy. Lungs sounds are diminished bilaterally with few scattered external wheeze. Heart sounds are irregular, positive S1 and S2 and there is no significant right ventricular heave. There is a grade 2-3 systolic ejection murmur mainly heard over the right lateral sternal border. Ramya the lower extremities are quite diminished. There are Doppler he obtained in the popliteal dorsalis pedis and posterior tibialis area. Abdominal exam revealed normal bowel sounds. The abdomen was soft, non-tender, and without masses, organomegaly, or appreciable enlargement of the abdominal aorta. Examination of the extremities revealed Doppler signal pulses in the popliteal and the right foot area. The forced toe is dark blue/purple discoloration along with erythema extending to its base. No open wounds or sores or ulceration at this point in time. There is an erythematous area over the oh and the medial aspect of the thigh (medial ) Neurologically the patient is awake and alert and is a focal neurological deficits. - Labs CBC & Chem 7: 05/05/19 04:21 05/05/19 04:21 Labs: Abnormal Lab Results - Last 24 Hours (Table) 05/05/19 05/05/19 05/05/19 Range/Units 04:21 04:21 11:42 WBC 35.0 H (3.8-10.6) k/uL RBC 2.97 L (4.30-5.90) m/uL Hgb 8.0 L (13.0-17.5) gm/dL Hct 27.7 L (39.0-53.0) % MCHC 29.0 L (31.0-37.0) g/dL RDW 25.9 H (11.5-15.5) % Neutrophils # (Manual) 32.20 H (1.3-7.7) k/uL Lymphocytes # (Manual) 0.70 L (1.0-4.8) k/uL Metamyelocytes # (Man) 1.05 H (0) k/uL Myelocytes # (Manual) 1.05 H (0) k/uL Nucleated RBCs 1 H (0-0) /100 WBC Sodium 136 L (137-145) mmol/L Chloride 111 H (98-107) mmol/L Carbon Dioxide 15 L (22-30) mmol/L BUN 54 H (9-20) mg/dL Creatinine 1.39 H (0.66-1.25) mg/dL Glucose 165 H (74-99) mg/dL POC Glucose (mg/dL) 189 H (75-99) mg/dL Calcium 6.2 L* (8.4-10.2) mg/dL Microbiology - Last 24 Hours (Table) 05/03/19 16:23 Urine Culture - Final Urine,Clean Catch 05/03/19 13:48 Blood Culture - Preliminary Blood No Growth after 24 hours Assessment and Plan Plan: 1 acute painful right lower extremity in a patient with severe peripheral vascul ar disease and previous fem-pop endarterectomy and bovine graft. Consider localized infection at the level of the graft with septic embolization to the right lower extremity as the patient has bluish discoloration of the fourth toe in addition to erythema along his medial thigh and calf which is quite painful. Dopplers signals are obtained in the dorsalis pedis and posterior tibialis and popliteal area. On 05/05/2019 I'm seeing this patient for a follow-up and the patient is hemodynamically improved and his off pressors. White cell count is slightly improved compared to yesterday. Blood cultures been negative and the patient is on IV Zosyn. The patient was seen by vascular surgery. A nonurgent angiogram will be indicated a later stage after conservative management. The patient's fo urth toe is somewhat necrotic and there is development of an ulceration laterally. 2 acute leukocytosis, slightly improved compared to yesterday 3 sepsis, to be considered secondary to above 4 coronary artery disease with previous stenting of the RCA 5 chronic atrial fibrillation 6 gout 7 history of hypertension 8 history of right-sided heart failure with severe cor pulmonale 9 history of previous MRSA/gram-negative Enterobacter infection 10 previous history of occult GI bleeding 11 chronic anemia 12 hyperlipidemia 13 BPH 14 history of myeloproliferative disorder 15 acute kidney injury, improving and the creatinine is down to 1. 39 Plan The blood cultures of been negative thus far. Continue IV Zosyn. Vascular surgery consultation was obtained. Echocardiac Jacques was noted. Continue same antibiotic coverage. Renal function is improving. The patient will need a angiogram at a later stage in addition to possibly a amputation of the fourth toe. For now, the renal function is improving and the patient continues to improve. Hemodynamically stable. We'll continue to follow make further recommendations based on his progress. He'll be kept in ICU for now. Vascular surgeries on the case.
[2019-05-05] MEDS ORDERED: CALCIUM GLUCONATE 1 GM in SODIUM CHLORIDE 0.9% 100 ML IVPB ONE (14:00)
--- NOTE | 2019-05-05 15:09 | PN ---
PROGRESS NOTE Patient is seen for followup for acute kidney injury. His renal function continues to improve. The creatinine is down to 1.39 today from 2.12. The patient is off of Levophed. He is complaining of pain in his right leg. No other major symptoms this morning. PHYSICAL EXAMINATION: On examination, blood pressure was 122/65, heart rate 94 per minute. He is afebrile. Examination of the heart S1, S2. Examination of the lungs, bilateral breath sounds are heard. Abdomen is soft, nontender. Examination of the lower extremities shows erythema and tenderness in his right lower extremity. [employer] exam is grossly intact. No edema is noted. LABS: Show hemoglobin 8.0, sodium 136, potassium 4.5, chloride 111, CO2 is 15, BUN 54, serum creatinine 1.39, calcium was 6.2. UA was completely unremarkable. ASSESSMENT: 1. Acute kidney injury, acute tubular necrosis, nonoliguric secondary to hypotension, hypoperfusion currently improving. Patient is maintained on IV fluids which I will continue. 2. Metabolic acidosis secondary to renal failure. Add oral sodium bicarbonate. 3. Anemia. Iron saturation was low at 5.9 on 04/22/2019. I am not sure if patient received IV iron for that. We will repeat another iron profile. 4. Hypocalcemia. Check 25 hydroxy vitamin D level and maintain patient on calcium supplement. 5. Right lower extremity ischemia with severe peripheral vascular disease, being followed by Vascular Surgery. 6. Myeloproliferative disorder with leukocytosis. 7. Coronary artery disease with history of coronary artery stenting. 8. Cellulitis right lower extremity, maintained on antibiotics. PLAN: Check 25 hydroxy vitamin D level. Continue IV fluids, add oral sodium bicarb. Repeat labs in a.m. Avoid nephrotoxic agents. Repeat iron profile. MMODL / IJN: [id number] /
--- NOTE | 2019-05-05 17:00 | PN ---
PROGRESS NOTE DATE OF SERVICE: Mr. Burk is in atrial fibrillation, controlled rate. He is hemodynamically stable. He is off Levophed, feeling and doing better. Apparently he was seen by Dr. Cline, who felt that there was some cellulitis in the finger. He does not think it is ischemia. Vitals are stable. S1, S2 heard normally. Short systolic murmur noted; more obvious murmur at the left lower sternal border. Irregular rhythm noted. Lungs are clearer. Abdomen and lower extremity exam unchanged. Plan is to place him on Lopressor 12.5 mg b.i.d., increase activity and move him to telemetry. Patient needs a Watchman procedure, which is set up for May 26 at [facility]. MMODL / IJN: [id number] /
[2019-05-05 19:24] LABS: Iron Saturation 4.76 (15.00-50.00)
[2019-05-05] MEDS: SODIUM CHLORIDE 0.9% 1,000 ML IV SCH (20:20)
[2019-05-05] MEDS: ATORVASTATIN 40 MG TAB PO SCH (20:21)
[2019-05-05] MEDS: AMIODARONE 200 MG TAB PO SCH (20:21)
[2019-05-05] MEDS: DARBEPOETIN ALFA 100MCG/0.5ML SYRINGE SQ SCH (20:21)
[2019-05-05] MEDS: SODIUM BICARBONATE TAB 650 MG TAB PO SCH (20:21)
--- NOTE | 2019-05-05 20:42 | PN ---
PROGRESS NOTE DATE OF SERVICE: 05/05/2019. REASON FOR FOLLOWUP: Right 4th toe gangrene with a question of cellulitis. INTERVAL HISTORY: The patient is currently afebrile. The patient has been complaining of pain to the right foot area, mostly in the right 4th toe. The patient did mention that area has opened up and has been draining. Denies having any chest pain. No shortness of breath. No cough. No abdominal pain or any diarrhea. PHYSICAL EXAMINATION: Blood pressure 114/64 with a pulse of 77, temperature 97.9, he is 93% on 2 L nasal cannula. General description is an elderly male lying in bed in no distress. Respiratory system: Unlabored breathing. Clear to auscultation anteriorly. Heart is S1, S2. Regular rate and rhythm. Abdomen soft, no tenderness. Right toe remains to be no chronic changes, minimal surrounding swelling. No redness or any drainage. LABS: Hemoglobin 8 with white count 5000, BUN of 54, creatinine 1.39. DIAGNOSTIC IMPRESSION AND PLAN: Patient with right 4th toe gangrene, possible secondary cellulitis. Patient at this time is covered with Zosyn. White count showing downward trend. The local cultures obtained to narrow down the antibiotics. Continue supportive care. MMODL / IJN: [id number] /
[2019-05-05] MEDS: predniSONE 20 MG TAB PO SCH (21:47)
[2019-05-06] MEDS: MORPHINE SULFATE 2 MG/ML SYRINGE IVP PRN ×9 (00:27→22:47)
[2019-05-06] MEDS: SODIUM CHLORIDE 0.9% 1,000 ML IV SCH ×2 (05:30→19:44)
[2019-05-06] MEDS: PANTOPRAZOLE 40 MG TABLET PO SCH (05:59)
[2019-05-06 06:48] LABS: Anisocytosis Marked; HCT 27.3 % (39.0-53.0); HGB 8.1 gm/dL (13.0-17.5); Hypochromasia Marked; MCH 26.7 pg (25.0-35.0); MCHC 29.5 g/dL (31.0-37.0); MCV 90.5 fL (80.0-100.0); Macrocytosis Slight; Mean Platelet Volume 7.9; Microcytosis Slight; Platelet Count 355 k/uL (150-450); Poikilocytosis Marked; RBC 3.02 m/uL (4.30-5.90)
[2019-05-06 06:54] LABS: RDW 25.9 % (11.5-15.5)
[2019-05-06 06:58] LABS: Calcium 6.5 mg/dL (8.4-10.2); Potassium 4.6 mmol/L (3.5-5.1)
[2019-05-06 07:24] LABS: Band Neutrophils % 3 %; Eosinophils # (M) 0.31 k/uL (0-0.7); Lymphocytes # (M) 1.57 k/uL (1.0-4.8); Monocytes # (M) 0.31 k/uL (0-1.0); Myelocytes # (M) 1.25 k/uL (0); Myelocytes % 4 %; Neutrophils % (M) 88 %; Nucleated Red Blood Cells 3 /100 WBC (0-0); Total Cells Counted 200; Toxic Vacuolation Present; WBC 31.3 k/uL (3.8-10.6)
[2019-05-06] MEDS: HEPARIN SODIUM,PORCINE 5,000 UNIT/ML 1 ML VIAL SQ SCH ×3 (09:31→22:47)
[2019-05-06] MEDS: METOPROLOL TARTRATE 12.5 MG TAB PO SCH ×2 (09:32→19:39)
[2019-05-06] MEDS: SODIUM BICARBONATE TAB 650 MG TAB PO SCH ×2 (09:32→19:39)
[2019-05-06] MEDS: CALCIUM CARBONATE 500 MG CHEWABLE PO SCH ×2 (09:32→19:39)
[2019-05-06] MEDS: ASPIRIN 81 MG PO SCH (09:32)
[2019-05-06] MEDS: predniSONE 20 MG TAB PO SCH (09:32)
[2019-05-06] MEDS: CLOPIDOGREL 75 MG TAB PO SCH (09:32)
[2019-05-06] MEDS: ALLOPURINOL 100 MG TAB PO SCH (09:32)
[2019-05-06] MEDS: PIPERACILLIN-TAZOBACTAM 3.375 GM in SODIUM CHLORIDE 0.9% 100 ML IVPB SCH ×3 (09:44→22:47)
[2019-05-06] MEDS: ERGOCALCIFEROL 50,000 UNIT CAP PO SCH (12:06)
[2019-05-06] MEDS: SODIUM FERRIC GLUCONAT-SUCROSE 125 MG in SODIUM CHLORIDE 0.9% 100 ML IVPB SCH (12:06)
--- NOTE | 2019-05-06 12:27 | P.PN ---
Subjective Progress Note Date: 05/06/19 This is a pleasant 79-year-old patient who follows Dr. GERI Pelayo in the office has history of CAD, prior bypass, prior PCI, PAD with previous surgical and peripheral intervention by Dr. Mcfadden and Dr. Cline about 2 years ago. Had a recent hospitalization with acute on chronic diastolic heart failure and p ulmonary hypertension. Presented this admission with dehydration and complaints of pain in his lower extremities with evidence of blistering to the right lower leg and cyanotic right fourth toe. He has been seen by Dr. Cline and an arterial duplex study has been done, results are pending. He does have a history of atrial fibrillation but cannot be anticoagulated and is scheduled with Dr. Curtis Redmond on the of this month to undergo watchman procedure. He did have hypotension upon admission and this has stabilized. BUN and creatinine have improved at 43 and 1.17. He continues to complain of significant pain at rest in his right lower extremity. Objective - Vital Signs Vital signs: Vital Signs Temp 97.5 F L 05/06/19 11:17 Pulse 115 H 05/06/19 11:19 Resp 20 05/06/19 11:19 BP 124/67 05/06/19 11:17 Pulse Ox 92 L 05/06/19 11:17 Intake & Output 05/05/19 05/06/19 05/06/19 18:59 06:59 18:59 Intake Total 1150 925 540 Output Total 745 320 50 Balance 405 605 490 Weight 82 kg Intake: IV 900 925 Piperacillin-Tazobactam 3 100 .375 gm In Sodium Chloride 0.9% 100 ml @ 25 mls/hr IVPB Q8HR JOSE Rx# :[id number] Sodium Chloride 0.9% 1, 900 825 000 ml @ 75 mls/hr IV . [id number] JOSE Rx#:[id number] Oral 250 540 Output: Urine 745 320 50 Other: Voiding Method Indwelling Catheter Urinal Urinal # Voids 1 - Exam PHYSICAL EXAMINATION: HEENT: Head is atraumatic, normocephalic. Pupils equal, round. Neck is supple. There is no elevated jugular venous pressure. HEART EXAMINATION: Heart sounds irregularly irregular, S1 and S2 with a systolic murmur. CHEST EXAMINATION: Lungs are clear to auscultation and precussion. No chest wall tenderness is noted on palpation or with deep breathing. ABDOMEN: Soft, nontender. Bowel sounds are heard. No organomegaly noted. EXTREMITIES:[ Right pedal pulse not palpable but documented Doppler pulse with evidence of right fourth toe cyanosis and blistering noted to right lower leg with discoloration. NEUROLOGIC patient is awake, alert and oriented x3. . - Labs CBC & Chem 7: 05/06/19 06:27 05/06/19 06:27 Labs: Abnormal Lab Results - Last 24 Hours (Table) 05/05/19 05/05/19 05/06/19 Range/Units 04:21 04:21 06:27 WBC 31.3 H (3.8-10.6) k/uL RBC 3.02 L (4.30-5.90) m/uL Hgb 8.1 L (13.0-17.5) gm/dL Hct 27.3 L (39.0-53.0) % MCHC 29.5 L (31.0-37.0) g/dL RDW 25.9 H (11.5-15.5) % Neutrophils # (Manual) 28.40 H (1.3-7.7) k/uL Myelocytes # (Manual) 1.25 H (0) k/uL Nucleated RBCs 3 H (0-0) /100 WBC Chloride (98-107) mmol/L Carbon Dioxide (22-30) mmol/L BUN (9-20) mg/dL Calcium (8.4-10.2) mg/dL Iron 13 L (65-175) ug/dL Iron Saturation 4.76 L (15.00-50.00) Vitamin D 25-Hydroxy 15.8 L (30.0-100.0) ng/mL 05/06/19 Range/Units 06:27 WBC (3.8-10.6) k/uL RBC (4.30-5.90) m/uL Hgb (13.0-17.5) gm/dL Hct (39.0-53.0) % MCHC (31.0-37.0) g/dL RDW (11.5-15.5) % Neutrophils # (Manual) (1.3-7.7) k/uL Myelocytes # (Manual) (0) k/uL Nucleated RBCs (0-0) /100 WBC Chloride 112 H (98-107) mmol/L Carbon Dioxide 16 L (22-30) mmol/L BUN 43 H (9-20) mg/dL Calcium 6.5 L (8.4-10.2) mg/dL Iron (65-175) ug/dL Iron Saturation (15.00-50.00) Vitamin D 25-Hydroxy (30.0-100.0) ng/mL Microbiology - Last 24 Hours (Table) 05/03/19 13:48 Blood Culture - Preliminary Blood No Growth after 48 hours Assessment and Plan Assessment: #1 dehydration #2 chronic diastolic congestive heart failure #3 pulmonary hypertension #4 probable ischemia of the right lower extremity awaiting further input from Dr. Cline #5 coronary artery disease with prior PTCA and bypass surgery #6 history of PAD with prior interventions by Dr. Cline and Dr. Britton Plan: From cardiology's perspective, blood pressure has improved patient hasn't been noted to have some tachycardia. He is currently only on metoprolol 12.5 mg by mouth daily. We'll increase that to twice a day. We will await input from Dr. Cline in regards to probable right lower extremity ischemia. We will continue to follow patient provide further recommendations accordingly. [employer] note has been reviewed, I agree with a documented findings and plan of care. Patient was seen and examined.
--- NOTE | 2019-05-06 14:52 | P.ARTDOP ---
Arterial Doppler LOWER EXTREMITY ARTERIAL DOPPLER: DATE OF SERVICE: 05/04/2019 Reason for study: Right leg cellulitis and fourth digit ulcer. Doppler waveforms: Multiphasic femoral and popliteal bilaterally. Atypical below the femoral bilaterally. Pulse volume recording: Blunting distally bilaterally especially the left ankle. Pressure gradients: No areas can be occluded Ankle-brachial indices: Can't measure. Toe pressures: [] on the right, [] on the left Impression: Suspect he also thick wall disease bilaterally throughout. Suggests at least moderate bilateral fem-pop disease. Clinical correlation recommended.
--- NOTE | 2019-05-06 15:15 | P.PN ---
Subjective Progress Note Date: 05/06/19 Principal diagnosis: Acute painful right lower extremity, severe peripheral vascular disease, status post previous fem-pop endarterectomy and bovine graft. Possible localized infe ction at the level of the graft with septic embolization to the right lower extremity, ischemic fourth toe on right foot This is a 79-year-old male patient with known history of extensive peripheral vascular disease with previous fem-pop arthrectomy and bovine patch insertion in addition to history of chronic atrial fibrillation was not been able to maintain on anticoagulation because of alcohol GI bleeding. The patient also known to have coronary artery disease, diastolic heart failure, hypertension and hyperlipidemia and gout. The patient came into the hospital yesterday because of an extensive right leg pain. The pain was mainly over the posterior aspect of his right callus and the patient also developed a bluish discoloration of the fourth toe. There was also some erythematous rash over the oh and over the anterior/medial thigh area where the vascular intervention was done earlier. On examination, the area is quite painful. The patient had a Doppler of the right lower x-ray that showed no evidence of any DVT. Pulses were obtained by Doppler signal in the popliteal dorsalis pedis and anterior tibialis. The patient is adequate femoral vein in the right groin area that was palpable. The patient is afebrile. The patient is hemodynamically stable. He was started on antibiotics for now. His cardiac rhythm remains in atrial fibrillation. The patient had a repeat echocardiogram today that showed severe pulmonary hypertension which has been noted on previous echocardiogram with a PA pressure estimated to be in the 90 mmHg range. He was furthermore found to have elevated uric acid level which probably is not related to this current presentation. The patient has underlying history of gout. The patient's current white count is 41.2. The patient has significant neutrophilia of 38%. The patient was started on accommodation Zosyn and vancomycin. The patient is on no pressors for now. Outpatient medications have been ordered resume. The primary cultures are negative for the past 24 hours. On today's evaluation of 72,019 the patient is being seen for a follow-up. He has a bluish/necrotic fourth toe. The erythema over the thigh still present. Erythema of the calvaria still present. The area is less tender compared to yesterday. Hemodynamically stable and the patient is currently off pressors. He is afebrile. He is covered with Zosyn. White cell count is down to 35. Repeat blood cultures of been all negative. Clinically much more alert and awake compared to yesterday. No chest pain. No significant shortness of breath. Slightly acidotic with a bicarb level of 15. This is an anion gap metabolic acidosis. Creatinine is down to 1.39 and the patient shows some improvement in renal function compared to yesterday. Cardiac rhythm is atrial fibrillation. Echocardiogram results were discussed yesterday the patient has severe pulmonary hypertension. The patient was seen by vascular surgery. Their impression is consistent with right fourth toe wound/infection with atherosclerotic disease involving lower oximetry is bilaterally. An angiogram as being planned at a later stage is no signs of improvement after conservative treatment. May need a fourth toe amputation at a later stage. On 05/06/2019 patient has been seen in follow-up on selective care unit, he is awake and alert, resting in bed, he states his right calf is still quite tender to touch, the pain in his right foot. Right groin redness has subsided, however right calf redness and pitting edema remains, right foot fourth toe is still cyanotic, bluish discoloration. Denies any shortness of breath, remains on 2 L of oxygen with a pulse ox of 92%, he is afebrile, hemodynamically patient is stable. No cough or congestion. All culture data remains negative thus far, including blood cultures and urine culture. His labs have been reviewed, showing a down trend in the white blood cell count down to 31.3, hemoglobin of 8.1, serum sodium is 137, potassium is 4.6, chloride is 112, CO2 is 16, BUN of 43, and creatinine is 1.17. Patient is on Zosyn for antibiotic coverage. ID service is following Objective - Vital Signs Vital signs: Vital Signs Temp 97.5 F L 05/06/19 11:17 Pulse 115 H 05/06/19 11:19 Resp 20 05/06/19 11:19 BP 124/67 05/06/19 11:17 Pulse Ox 92 L 05/06/19 11:17 Intake & Output 05/05/19 05/06/19 05/06/19 18:59 06:59 18:59 Intake Total 1150 925 540 Output Total 745 320 875 Balance 405 605 -335 Weight 82 kg Intake: IV 900 925 Piperacillin-Tazobactam 3 100 .375 gm In Sodium Chloride 0.9% 100 ml @ 25 mls/hr IVPB Q8HR [facility] Rx# :[id number] Sodium Chloride 0.9% 1, 900 825 000 ml @ 75 mls/hr IV . [id number] [facility] Rx#:[id number] Oral 250 540 Output: Urine 745 320 875 Other: Voiding Method Indwelling Catheter Urinal Urinal # Voids 1 - Exam GENERAL EXAM: Alert, pleasant, 79-year-old white male, on 2 L of oxygen, comfortable in no apparent distress. HEAD: Normocephalic/atraumatic. EYES: Normal reaction of pupils, equal size. Conjunctiva pink, sclera white. NOSE: Clear with pink turbinates. THROAT: No erythema or exudates. NECK: No masses, no JVD, no thyroid enlargement, no adenopathy. CHEST: No chest wall deformity. Symmetrical expansion. LUNGS: Equal air entry with a few scattered wheezes CVS: Regular rate and rhythm, normal S1 and S2, no gallops, no murmurs, no rubs ABDOMEN: Soft, nontender. No hepatosplenomegaly, normal bowel sounds, no guarding or rigidity. EXTREMITIES: No clubbing, no cyanosis, 2+ pulses and upper and lower extremities. There is localized edema and erythema in the right calf, and anterior oh, previous area of erythema in the right groin has subsided, and has actually resolved, the fourth digit on the right foot is dark blue/purple discoloration with surrounding erythema extending to its. No open wounds or sores. There are intact blisters on the back of her right calf MUSCULOSKELETAL: Muscle strength and tone normal. SPINE: No scoliosis or deformity SKIN: No rashes CENTRAL NERVOUS SYSTEM: Alert and oriented -3. No focal deficits, tone is normal in all 4 extremities. PSYCHIATRIC: Alert and oriented -3. Appropriate affect. Intact judgment and insight. - Labs CBC & Chem 7: 05/06/19 06:27 05/06/19 06:27 Labs: Abnormal Lab Results - Last 24 Hours (Table) 05/05/19 05/05/19 05/06/19 Range/Units 04:21 04:21 06:27 WBC 31.3 H (3.8-10.6) k/uL RBC 3.02 L (4.30-5.90) m/uL Hgb 8.1 L (13.0-17.5) gm/dL Hct 27.3 L (39.0-53.0) % MCHC 29.5 L (31.0-37.0) g/dL RDW 25.9 H (11.5-15.5) % Neutrophils # (Manual) 28.40 H (1.3-7.7) k/uL Myelocytes # (Manual) 1.25 H (0) k/uL Nucleated RBCs 3 H (0-0) /100 WBC Chloride (98-107) mmol/L Carbon Dioxide (22-30) mmol/L BUN (9-20) mg/dL Calcium (8.4-10.2) mg/dL Iron 13 L (65-175) ug/dL Iron Saturation 4.76 L (15.00-50.00) Vitamin D 25-Hydroxy 15.8 L (30.0-100.0) ng/mL 05/06/19 Range/Units 06:27 WBC (3.8-10.6) k/uL RBC (4.30-5.90) m/uL Hgb (13.0-17.5) gm/dL Hct (39.0-53.0) % MCHC (31.0-37.0) g/dL RDW (11.5-15.5) % Neutrophils # (Manual) (1.3-7.7) k/uL Myelocytes # (Manual) (0) k/uL Nucleated RBCs (0-0) /100 WBC Chloride 112 H (98-107) mmol/L Carbon Dioxide 16 L (22-30) mmol/L BUN 43 H (9-20) mg/dL Calcium 6.5 L (8.4-10.2) mg/dL Iron (65-175) ug/dL Iron Saturation (15.00-50.00) Vitamin D 25-Hydroxy (30.0-100.0) ng/mL Microbiology - Last 24 Hours (Table) 05/03/19 13:48 Blood Culture - Preliminary Blood No Growth after 48 hours Assessment and Plan Plan: 1 acute painful right lower extremity in a patient with severe peripheral vascular disease and previous fem-pop endarterectomy and bovine graft. Consider localized infection at the level of the graft with septic embolization to the right lower extremity as the patient has bluish discoloration of the fourth toe in addition to erythema along his medial thigh and calf which is quite painful. Dopplers signals are obtained in the dorsalis pedis and posterior tibialis and popliteal area. On 05/05/2019 I'm seeing this patient for a follow-up and the patient is hemodynamically improved and his off pressors. White cell count is slightly improved compared to yesterday. Blood cultures been negative and the patient is on IV Zosyn. The patient was seen by vascular surgery. A nonurgent angiogram will be indicated a later stage after conservative management. The patient's fourth toe is somewhat necrotic and there is development of an ulceration laterally. 2 acute leukocytosis, slightly improved compared to yesterday 3 sepsis, to be considered secondary to above 4 coronary artery disease with previous stenting of the RCA 5 chronic atrial fibrillation 6 gout 7 history of hypertension 8 history of right-sided heart failure with severe cor pulmonale 9 history of previous MRSA/gram-negative Enterobacter infection 10 previous history of occult GI bleeding 11 chronic anemia 12 hyperlipidemia 13 BPH 14 history of myeloproliferative disorder 15 acute kidney injury, improving and the creatinine is down to 1. 39 Plan: Continue with antibiotics per ID service recommendations, culture data remains negative thus far, patient denies any shortness of breath, will continue with oral prednisone. No fever or chills, tenderness and erythema in the right lower extremity dusky bluish discoloration of the fourth toe on the right foot persists. We will await further recommendation from vascular surgery I performed a history & physical examination of the patient and discussed their management with my nurse practitioner, Crystal Hanna. I reviewed the nurse practitioner's note and agree with the documented findings and plan of care. Lung sounds are positive for diffuse wheezes throughout the lung ross. The findings and the impression was discussed with the patient. I attest to the documentation by the nurse practitioner. Time with Patient: Less than 30
[2019-05-06] MEDS ORDERED: RX INFO: IV CONTRAST WAS GIVEN 1 EACH MISC MISCELLANE PRN (15:55)
--- NOTE | 2019-05-06 16:01 | P.PN ---
Subjective Progress Note Date: 05/06/19 Principal diagnosis: Right lower extremity athersclerotic disease Patient seen and examined. Complaining of right lower extremity pain as well as pain at the 4th toe. He states having pain with moving his foot as well. He denies any fevers, chills, nausea, vomiting, chest pain or shortness of breath. He states having very little sleep due to the pain in his leg. Objective - Vital Signs Vital signs: Vital Signs Temp 97.5 F L 05/06/19 11:17 Pulse 115 H 05/06/19 11:19 Resp 20 05/06/19 11:19 BP 124/67 05/06/19 11:17 Pulse Ox 92 L 05/06/19 11:17 Intake & Output 05/05/19 05/06/19 05/06/19 18:59 06:59 18:59 Intake Total 1150 925 540 Output Total 745 320 875 Balance 405 605 -335 Weight 82 kg Intake: IV 900 925 Piperacillin-Tazobactam 3 100 .375 gm In Sodium Chloride 0.9% 100 ml @ 25 mls/hr IVPB Q8HR [facility] Rx# :[id number] Sodium Chloride 0.9% 1, 900 825 000 ml @ 75 mls/hr IV . [id number] [facility] Rx#:[id number] Oral 250 540 Output: Urine 745 320 875 Other: Voiding Method Indwelling Catheter Urinal Urinal # Voids 1 - Exam Right lower extremity tender to palpation of the right calf and foot. 4th toe dry gangrene noted. There are blisters on the medial aspect of the calf. Non palpable dp/pt pulses. Foot cool, with decreased capillary refill. Right groin incision is well healed. No sign of infection. - Labs CBC & Chem 7: 05/06/19 06:27 05/06/19 06:27 Labs: Abnormal Lab Results - Last 24 Hours (Table) 05/05/19 05/05/19 05/06/19 Range/Units 04:21 04:21 06:27 WBC 31.3 H (3.8-10.6) k/uL RBC 3.02 L (4.30-5.90) m/uL Hgb 8.1 L (13.0-17.5) gm/dL Hct 27.3 L (39.0-53.0) % MCHC 29.5 L (31.0-37.0) g/dL RDW 25.9 H (11.5-15.5) % Neutrophils # (Manual) 28.40 H (1.3-7.7) k/uL Myelocytes # (Manual) 1.25 H (0) k/uL Nucleated RBCs 3 H (0-0) /100 WBC Chloride (98-107) mmol/L Carbon Dioxide (22-30) mmol/L BUN (9-20) mg/dL Calcium (8.4-10.2) mg/dL Iron 13 L (65-175) ug/dL Iron Saturation 4.76 L (15.00-50.00) Vitamin D 25-Hydroxy 15.8 L (30.0-100.0) ng/mL 05/06/19 Range/Units 06:27 WBC (3.8-10.6) k/uL RBC (4.30-5.90) m/uL Hgb (13.0-17.5) gm/dL Hct (39.0-53.0) % MCHC (31.0-37.0) g/dL RDW (11.5-15.5) % Neutrophils # (Manual) (1.3-7.7) k/uL Myelocytes # (Manual) (0) k/uL Nucleated RBCs (0-0) /100 WBC Chloride 112 H (98-107) mmol/L Carbon Dioxide 16 L (22-30) mmol/L BUN 43 H (9-20) mg/dL Calcium 6.5 L (8.4-10.2) mg/dL Iron (65-175) ug/dL Iron Saturation (15.00-50.00) Vitamin D 25-Hydroxy (30.0-100.0) ng/mL Microbiology - Last 24 Hours (Table) 05/03/19 13:48 Blood Culture - Preliminary Blood No Growth after 48 hours Assessment and Plan Assessment: 1. Right lower extremity 4th toe wound/infection [place] 5 2. Atherosclerotic disease of the bilateral lower extremities 3. CHF exacerbation 4. HTN, currently hypotensive on pressor support 5. atrial fibrillation 6. Hyperlipidemia 7. Coronary artery disease 8. Leukocytosis Plan: Agree with antibiotic at this time for right 4th toe infection. Patient's pain worsening and blister formation in calf and therefore will obtain ct angio of the right lower extremity.
--- NOTE | 2019-05-06 17:32 | PN ---
PROGRESS NOTE Patient is seen for followup for acute kidney injury which was mainly prerenal associated with hypotension, hypoperfusion and volume depletion. The patient is transferred out of the ICU. He is off of pressors. Renal function has improved significantly. Serum creatinine is down to 1.17 from 2.12 at peak. The patient continues to have good urine output. He is mildly acidotic. He has been evaluated by vascular surgery and there are plans for lower extremity angiogram down the road. EXAMINATION: Today blood pressure is 124/67, heart rate 113 per minute. Patient is afebrile. Examination of the heart S1, S2. Examination of the lungs, bilateral breath sounds are heard. Abdomen is soft, nontender. Examination of lower extremities shows erythema in the right lower extremity with discoloration of the 4th toe. [employer] exam is grossly intact. LABS: Hemoglobin 8.1 g/dL. Sodium 137, potassium 4.6, chloride 112. CO2 16, BUN 43, serum creatinine 1.17. ASSESSMENT: 1. Acute kidney injury secondary to hypotension/hypoperfusion and hypovolemia. Currently maintained on IV fluids. Renal function continues to improve. There are no nephrotoxic agents on board. 2. Metabolic acidosis secondary to renal failure, maintained on oral sodium bicarb which I will continue for now. 3. Anemia with severe iron deficiency, started on IV iron. 4. Nutritional vitamin D deficiency. 5. Mild hypocalcemia with corrected calcium of 7.2 for an albumin of 2.9 and calcium of 6.2 g/dL. The patient is maintained on Tums and also started on an vitamin D2 today. 6. Severe peripheral vascular disease with ischemic toe being followed by Dr. Cline. PLANS: For CT angiogram of the right lower extremity, which should be okay given that his renal function has improved significantly and patient is maintained on IV fluids. Okay to proceed with the lower extremity angiogram. Continue with IV fluids. Continue oral sodium bicarb. Repeat labs in a.m. MMODL / IJN: [id number] /
--- NOTE | 2019-05-06 18:41 | PN ---
PROGRESS NOTE DATE OF SERVICE: 05/06/2019. REASON FOR FOLLOWUP: Right 4th toe gangrene and cellulitis. INTERVAL HISTORY: The patient is currently afebrile. Still complaining of pain to the right foot and leg area, though slightly improved with pain medication. Denies having any chest pain, shortness of breath or cough. Some abdominal discomfort, but no nausea, vomiting or diarrhea. PHYSICAL EXAMINATION: Blood pressure 124/67 with a pulse of 115, temperature 97.5. He is 92% on 2 L nasal cannula. General description is an elderly male lying in bed in no distress. Respiratory system: Unlabored breathing, clear to auscultation anteriorly. Heart S1, S2. Regular rate and rhythm. Abdomen is soft, no tenderness. Right fourth toe remains to be gangrenous. Surrounding swelling, redness improved. No drainage. LABS: Hemoglobin is 8.1, white count 31.3 with a BUN of 43, creatinine is 1.17. DIAGNOSTIC IMPRESSION AND PLAN: Patient with right 4th toe gangrenous changes. Patient is currently covered with Zosyn to continue. Wait for the surgical intervention and continue supportive care. MMODL / IJN: [id number] /
--- NOTE | 2019-05-06 19:02 | P.PN ---
Subjective Progress Note Date: 05/06/19 Principal diagnosis: Right toe discoloration Patient was seen and examined. No acute events overnight. Objective - Vital Signs Vital signs: Vital Signs Temp 97.5 F L 05/06/19 11:17 Pulse 115 H 05/06/19 11:19 Resp 20 05/06/19 11:19 BP 124/67 05/06/19 11:17 Pulse Ox 92 L 05/06/19 11:17 Intake & Output 05/05/19 05/06/19 05/06/19 18:59 06:59 18:59 Intake Total 1150 925 540 Output Total 745 320 50 Balance 405 605 490 Weight 82 kg Intake: IV 900 925 Piperacillin-Tazobactam 3 100 .375 gm In Sodium Chloride 0.9% 100 ml @ 25 mls/hr IVPB Q8HR [facility] Rx# :[id number] Sodium Chloride 0.9% 1, 900 825 000 ml @ 75 mls/hr IV . [id number] [facility] Rx#:[id number] Oral 250 540 Output: Urine 745 320 50 Other: Voiding Method Indwelling Catheter Urinal Urinal # Voids 1 - Exam General: [non toxic], [no distress], [appears at stated age] Derm: [warm], [dry] Head: [atraumatic], [normocephalic], [symmetric] Eyes: [EOMI], [no lid lag], [anicteric sclera] Mouth: [no lip lesion], [mucus membranes moist] Cardiovascular: [S1S2 reg], [irregularly irregular], [negative DP pulse right lower extremity, able to Doppler per nurse] Lungs: [CTA bilateral], [no rhonchi, no rales] , [no accessory muscle use] Abdominal: [soft], [ nontender to palpation], [no guarding], [no appreciable organomegaly] Ext: [no gross muscle atrophy], [ lower extremity edema], [no contractures] Neuro: [right fourth toe purple discoloration with erythema that extends to the mid oh and inner thigh] Psych: [Alert], [oriented], [appropriate affect] - Labs CBC & Chem 7: 05/06/19 06:27 05/06/19 06:27 Labs: Abnormal Lab Results - Last 24 Hours (Table) 05/05/19 05/05/19 05/06/19 Range/Units 04:21 04:21 06:27 WBC 31.3 H (3.8-10.6) k/uL RBC 3.02 L (4.30-5.90) m/uL Hgb 8.1 L (13.0-17.5) gm/dL Hct 27.3 L (39.0-53.0) % MCHC 29.5 L (31.0-37.0) g/dL RDW 25.9 H (11.5-15.5) % Neutrophils # (Manual) 28.40 H (1.3-7.7) k/uL Myelocytes # (Manual) 1.25 H (0) k/uL Nucleated RBCs 3 H (0-0) /100 WBC Chloride (98-107) mmol/L Carbon Dioxide (22-30) mmol/L BUN (9-20) mg/dL Calcium (8.4-10.2) mg/dL Iron 13 L (65-175) ug/dL Iron Saturation 4.76 L (15.00-50.00) Vitamin D 25-Hydroxy 15.8 L (30.0-100.0) ng/mL 05/06/19 Range/Units 06:27 WBC (3.8-10.6) k/uL RBC (4.30-5.90) m/uL Hgb (13.0-17.5) gm/dL Hct (39.0-53.0) % MCHC (31.0-37.0) g/dL RDW (11.5-15.5) % Neutrophils # (Manual) (1.3-7.7) k/uL Myelocytes # (Manual) (0) k/uL Nucleated RBCs (0-0) /100 WBC Chloride 112 H (98-107) mmol/L Carbon Dioxide 16 L (22-30) mmol/L BUN 43 H (9-20) mg/dL Calcium 6.5 L (8.4-10.2) mg/dL Iron (65-175) ug/dL Iron Saturation (15.00-50.00) Vitamin D 25-Hydroxy (30.0-100.0) ng/mL Microbiology - Last 24 Hours (Table) 05/03/19 13:48 Blood Culture - Preliminary Blood No Growth after 48 hours Assessment and Plan Assessment: Assessment and Plan Right 4th toe discoloration, possibly related to thromboembolic disease Sepsis, possibly related to right lower extremity cellulitis Acute on chronic systolic CHF exacerbation Hypocalcemia Acute kidney injury with metabolic acidosis Myeloproliferative disorder with leukocytosis CAD with recent RCA stent Atrial flutter Gout Patient with history of right lower extremity ischemia with common femoral severe occlusive disease status post right common femoral artery endarterectomy in March 2018. As per RN, able to Doppler DP of right foot. Plans: Pain control with Tylenol or morphine as needed. Dr. Cline consutled, recommends continuation of IV Antibiotics and possible angiogram today. Neurochecks and right lower extremity. Continue aspirin and Plavix. Patient hypotensive to a SBP 81, leukocytosis of 35.6 on admission, positive source of infection. Likely related to right lower extremity cellulitis. Lactic acid negative. Urine culture negative. Blood culture negative at 48 hours. Plans: Currently off pressors. Continue normal saline at 75 mL per hour (decreased from 120 cc/h). Tylenol as needed for fever. Discontinue vancomycin and continue Zosyn as per ID for treatment of cellulitis. Follow blood culture. Follow infectious disease consult. Chest x-ray with concerns of pulmonary edema secondary to CHF exacerbation. Plans: Hold Lasix. Hold spironolactone. Metoprolol restarted by cardiology, increased today due to tachycardia. Plans to reintroduce when BP improved. Strict intake and output take. Daily weight. We'll be cautious as patient is being hydrated with IVF. Follow cardiology consultation. Calcium 6.2-6.5. Low vitamin D of 15.8. Plans: Daily CMP. Start calcium carbonate 500 mg by mouth twice a day. Start vitamin D 50,000 units weekly. Creatinine from 2.12-1.78-1.39-within normal limits. HCO3 20-15-16. Likely secondary to diuresis. Renal ultrasound shows abdominal ascites, no hydronephrosis or nephrolithiasis. Plans: Daily BMP. Avoid nephrotoxins. Follow nephrology consultation.start sodium bicarb. WBC count 35.6-41.2-35-31.3, hemoglobin 8.5-8.8-8.0-8.1. Leukocytosis likely stress-induced. Gets weekly Procrit injections at Dr. Miller's office. Plan: Daily CBC. Procrit injections weekly.start IV iron as per nephrology recommendations. Plan: Continue aspirin, Plavix and Lipitor. Metoprolol resumed. Plan: No anticoagulation due to recurrent GI bleeds. Continue amiodarone. Hold beta quan due to hypotension. Telemetry monitoring. Follow cardiology consult. Uric acid elevated at 16.9. Plans: We'll continue prednisone. Pain control with Tylenol or morphine. Follow PT recommendations. Patient admitted for possible sepsis due to right lower extremity cellulitis, ID on board. Cardiology on board for CHF exacerbation. There are some concerns for thromboembolic disease of the right lower extremity, vascular surgery was consulted.
[2019-05-06] MEDS: ATORVASTATIN 40 MG TAB PO SCH (19:39)
[2019-05-06] MEDS: AMIODARONE 200 MG TAB PO SCH (19:39)
--- NOTE | 2019-05-06 19:40 | CT ---
EXAMINATION TYPE: CT angio lower extremity RT DATE OF EXAM: 05/06/2019 7:24 PM COMPARISON: None HISTORY: Right lower extremity ischemic pain. CT DLP: 823.3 mGycm Automated exposure control for dose reduction was used. TECHNIQUE: Performed with IV Contrast, patient injected with 100ml mL of Isovue 370. . There are 3-D post processed images. FINDINGS: There is abdominal ascites. There is fluid in the right paracolic gutter and around the liver. There is contrast opacification of the abdominal aorta and the right iliac artery. Abdominal aorta is ather omatous. Iliac artery is atheromatous. There is lumen narrowing up to 25% in the right iliac artery. There is arterial flow in the right femoral artery. There is significant plaque at the proximal right femoral artery. There is arterial flow in the popliteal artery and tibial artery. There is plaque fo rmation in the popliteal artery. There is arterial contrast opacification of the anterior tibial minor ry and the peroneal artery. I see no significant flow in the posterior tibial artery. There is no maddy dence of aneurysm or neovascularity in the right leg. There is subcutaneous edema around the right lo wer leg. IMPRESSION: THERE IS DIFFUSE ATHEROSCLEROTIC VASCULAR DISEASE. THERE IS PROBABLY SOME HEMODYNAMIC STENOSIS OF THE PROXIMAL RIGHT FEMORAL ARTERY. THERE IS DIFFUSE PLAQUE FORMATION IN THE RIGHT FEMORAL ARTERY AND POP LITEAL ARTERY. THERE IS PROBABLY HEMODYNAMIC STENOSIS IN MULTIPLE SEGMENTS OF THE MID AND DISTAL FEMO RAL ARTERY AND THE POPLITEAL ARTERY. THERE IS OCCLUSION OF THE PROXIMAL RIGHT POSTERIOR TIBIAL ARTERY . SUBCUTANEOUS EDEMA AROUND THE RIGHT LOWER LEG AND FOOT.
[2019-05-07 06:30] LABS: Calcium 6.5 mg/dL (8.4-10.2); Potassium 4.7 mmol/L (3.5-5.1)
[2019-05-07] MEDS: PANTOPRAZOLE 40 MG TABLET PO SCH (06:33)
[2019-05-07] MEDS: SODIUM CHLORIDE 0.9% 1,000 ML IV SCH (09:35)
[2019-05-07] MEDS: CALCIUM CARBONATE 500 MG CHEWABLE PO SCH ×2 (09:35→19:43)
[2019-05-07] MEDS: predniSONE 20 MG TAB PO SCH (09:35)
[2019-05-07] MEDS: SODIUM BICARBONATE TAB 650 MG TAB PO SCH ×2 (09:35→19:43)
[2019-05-07] MEDS: CLOPIDOGREL 75 MG TAB PO SCH (09:35)
[2019-05-07] MEDS: METOPROLOL TARTRATE 12.5 MG TAB PO SCH ×3 (09:35→19:43)
[2019-05-07] MEDS: ALLOPURINOL 100 MG TAB PO SCH (09:35)
[2019-05-07] MEDS: HEPARIN SODIUM,PORCINE 5,000 UNIT/ML 1 ML VIAL SQ SCH ×3 (09:36→23:16)
[2019-05-07] MEDS: ASPIRIN 81 MG PO SCH (09:36)
[2019-05-07] MEDS: PIPERACILLIN-TAZOBACTAM 3.375 GM in SODIUM CHLORIDE 0.9% 100 ML IVPB SCH ×3 (09:36→23:15)
[2019-05-07] MEDS: MORPHINE SULFATE 2 MG/ML SYRINGE IVP PRN ×3 (09:36→23:16)
[2019-05-07] MEDS: SODIUM FERRIC GLUCONAT-SUCROSE 125 MG in SODIUM CHLORIDE 0.9% 100 ML IVPB SCH (10:25)
--- NOTE | 2019-05-07 10:47 | P.PN ---
Subjective Progress Note Date: 05/07/19 Principal diagnosis: right lower extremity pain, shortness of breath Patient was seen and examined. No acute events overnight. Underwent CT aorta with runoff yesterday. States the vascular surgeon popped a blister on his right calf causing great relief of his pain. Pain is currently 2 out of 10 in severity without requiring morphine injections. He does complain of worsening shortness of breath over the last couple of days. He denies any chest pain or palpitations. No nausea or vomiting. No fever or chills. States that he has not had a bowel movement in the last 3 days, requesting stool softener. Also complains of thrush in his mouth. Objective - Vital Signs Vital signs: Vital Signs Temp 98.0 F 05/07/19 04:00 Pulse 100 05/07/19 09:56 Resp 20 05/07/19 09:56 BP 116/69 05/07/19 09:56 Pulse Ox 95 05/07/19 09:56 Intake & Output 05/06/19 05/07/19 05/07/19 18:59 06:59 18:59 Intake Total 540 240 Output Total 875 450 Balance -335 -450 240 Weight 83.5 kg Intake: Oral 540 240 Output: Urine 875 450 Other: Voiding Method Urinal Urinal # Voids 1 - Exam General: [non toxic], [no distress], [appears at stated age] Derm: [warm], [dry] Head: [atraumatic], [normocephalic], [symmetric] Eyes: [EOMI], [no lid lag], [anicteric sclera] Mouth: [no lip lesion], [mucus membranes moist] Cardiovascular: [S1S2 reg], [irregularly irregular] Lungs: [decreased breath sounds bilateral], [no rhonchi, no rales] , [no accessory muscle use] Abdominal: [soft], [ nontender to palpation], [no guarding], [no appreciable organomegaly] Ext: [no gross muscle atrophy], [ lower extremity edema], [no contractures] Neuro: [right fourth toe purple discoloration with erythema that extends to the mid oh and inner thigh, foot wrapped with dressings clean dry and intact] Psych: [Alert], [oriented], [appropriate affect] - Labs CBC & Chem 7: 05/06/19 06:27 05/07/19 05:59 Labs: Abnormal Lab Results - Last 24 Hours (Table) 05/07/19 Range/Units 05:59 Chloride 110 H (98-107) mmol/L Carbon Dioxide 15 L (22-30) mmol/L BUN 44 H (9-20) mg/dL Glucose 133 H (74-99) mg/dL Calcium 6.5 L (8.4-10.2) mg/dL Microbiology - Last 24 Hours (Table) 05/03/19 13:48 Blood Culture - Preliminary Blood No Growth after 72 hours Assessment and Plan Assessment: Assessment and Plan Right 4th toe discoloration, possibly related to thromboembolic disease Sepsis, possibly related to right lower extremity cellulitis Oral thrush Acute on chronic systolic CHF exacerbation Hypocalcemia Acute kidney injury with metabolic acidosis Myeloproliferative disorder with leukocytosis CAD with recent RCA stent Atrial flutter Gout Patient with history of right lower extremity ischemia with common femoral severe occlusive disease status post right common femoral artery endarterectomy in March 2018. As per RN, able to Doppler DP of right foot. CTA aorta with runoff shows diffuse atheromatous changes with occlusion of the proximal right posterior tibial artery. Plans: Pain control with Tylenol or morphine as needed. Follow vascular surgery consultation, per RN no acute surgical intervention planned at this time. Neurochecks and right lower extremity. Continue aspirin and Plavix. Patient hypotensive to a SBP 81, leukocytosis of 35.6 on admission, positive source of infection. Likely related to right lower extremity cellulitis. Lactic acid negative. Urine culture negative. Blood culture negative at 72 hours. Plans: Currently off pressors. Continue normal saline at 75 mL per hour (decreased from 120 cc/h). Tylenol as needed for fever. Discontinue vancomycin and continue Zosyn as per ID for treatment of cellulitis. Follow blood culture. Follow infectious disease consult. As seen on physical exam. Plans: Nystatin swish and swallow. Chest x-ray with concerns of pulmonary edema secondary to CHF exacerbation. Plans: Hold Lasix. Hold spironolactone. Continue metoprolol 12.5 mg by mouth twice a day. Plans to reintroduce when BP improved. Strict intake and output take. Daily weight. We'll be cautious as patient is being hydrated with IVF. Follow cardiology consultation. Follow repeat CXR. Calcium 6.2-6.5 x 2. Low vitamin D of 15.8. Plans: Daily CMP. Start calcium carbonate 500 mg by mouth twice a day. Start vitamin D 50,000 units weekly. Creatinine from 2.12-1.78-1.39-within normal limits. HCO3 20-15-16-15. Likely secondary to diuresis. Renal ultrasound shows abdominal ascites, no hydronephrosis or nephrolithiasis. Plans: Daily BMP. Avoid nephrotoxins. Follow nephrology consultation. Continue sodium bicarb by mouth. WBC count 35.6-41.2-35-31.3, hemoglobin 8.5-8.8-8.0-8.1. Leukocytosis likely stress-induced. Gets weekly Procrit injections at Dr. Miller's office. Plan: Daily CBC. Procrit injections weekly. Start IV iron as per nephrology recommendations. Plan: Continue aspirin, Plavix and Lipitor. Metoprolol resumed. Plan: No anticoagulation due to recurrent GI bleeds. Continue amiodarone. Hold beta quan due to hypotension. Telemetry monitoring. Follow cardiology consult. Uric acid elevated at 16.9. Plans: We'll continue prednisone. Restart Allopur inol. Pain control with Tylenol or morphine. Follow PT recommendations. Patient admitted for possible sepsis due to right lower extremity cellulitis, ID on board. Cardiology on board for CHF exacerbation. There are some concerns for thromboembolic disease of the right lower extremity, vascular surgery was consulted.
--- NOTE | 2019-05-07 10:52 | P.PN ---
Subjective Progress Note Date: 05/07/19 Patient seen and examined. No complaints. He says his right leg pain is improved from yesterday. The bulla on the back of his calf drained overnight. Denies any chest pains or shortness of breath that is changed. Objective - Vital Signs Vital signs: Vital Signs Temp 98.0 F 05/07/19 04:00 Pulse 100 05/07/19 10:28 Resp 20 05/07/19 10:28 BP 116/69 05/07/19 09:56 Pulse Ox 95 05/07/19 09:56 Intake & Output 05/06/19 05/07/19 05/07/19 18:59 06:59 18:59 Intake Total 540 240 Output Total 875 450 Balance -335 -450 240 Weight 83.5 kg Intake: Oral 540 240 Output: Urine 875 450 Other: Voiding Method Urinal Urinal Urinal # Voids 1 - Exam No acute distress Mild respiratory distress on nasal cannula Abdomen soft Right lower extremity fourth toe cyanotic, decreased weeping and drainage from previous. No surrounding cellulitis at this time. The remainder of the serous fluid from the right posterior calf is expressed and a dressing is placed. No evidence of purulent drainage or discharge - Labs CBC & Chem 7: 05/06/19 06:27 05/07/19 05:59 Labs: Abnormal Lab Results - Last 24 Hours (Table) 05/07/19 Range/Units 05:59 Chloride 110 H (98-107) mmol/L Carbon Dioxide 15 L (22-30) mmol/L BUN 44 H (9-20) mg/dL Glucose 133 H (74-99) mg/dL Calcium 6.5 L (8.4-10.2) mg/dL Microbiology - Last 24 Hours (Table) 05/03/19 13:48 Blood Culture - Preliminary Blood No Growth after 72 hours - Imaging and Cardiology CT scan - abdomen: report reviewed, image reviewed (No evidence of abscess. Diffuse peripheral arterial occlusions) Assessment and Plan Assessment: 1. Right lower extremity 4th toe wound/infection [place] 5 2. Atherosclerotic disease of the bilateral lower extremities 3. CHF exacerbation 4. HTN 5. atrial fibrillation 6. Hyperlipidemia 7. Coronary artery disease 8. Leukocytosis Plan: At this time continue IV antibiotics. In the past there've been multiple occurr ences that the patient states he has had vestibular infection in the toe that is treated and healed antibiotics. We will like to give this continued attempt prior to any surgical intervention given his poor blood flow and likely inability to heal a surgical wound on that. Continue local wound care.
[2019-05-07] MEDS ORDERED: FUROSEMIDE 10 MG/ML 4 ML VIAL IV STA (11:26)
--- NOTE | 2019-05-07 11:29 | P.PN ---
Subjective Progress Note Date: 05/07/19 This is a pleasant 79-year-old patient who follows Dr. GERI Pelayo in the office has history of CAD, prior bypass, prior PCI, PAD with previous surgical and peripheral intervention by Dr. Mcfadden and Dr. Cline about 2 years ago. Had a recent hospitalization with acute on chronic diastolic heart failure and p ulmonary hypertension. Presented this admission with dehydration and complaints of pain in his lower extremities with evidence of blistering to the right lower leg and cyanotic right fourth toe. He has been seen by Dr. Cline and an arterial duplex study has been done, results are pending. He does have a history of atrial fibrillation but cannot be anticoagulated and is scheduled with Dr. Curtis Redmond on the of this month to undergo watchman procedure. He did have hypotension upon admission and this has stabilized. 05/07/19 - the patient complains of worsening shortness of breath today. He does feel that his right lower extremity symptoms have improved. This is being followed by Dr. Cline. Spine show hemoglobin of 8.1, potassium 4.7, BUN 44 and creatinine 1.21. Objective - Vital Signs Vital signs: Vital Signs Temp 98.0 F 05/07/19 04:00 Pulse 100 05/07/19 10:28 Resp 20 05/07/19 11:11 BP 116/69 05/07/19 09:56 Pulse Ox 95 05/07/19 09:56 Intake & Output 05/06/19 05/07/19 05/07/19 18:59 06:59 18:59 Intake Total 540 1340 Output Total 875 450 175 Balance -335 -450 1165 Weight 83.5 kg Intake: IV 1000 Piperacillin-Tazobactam 3 100 .375 gm In Sodium Chloride 0.9% 100 ml @ 25 mls/hr IVPB Q8HR [facility] Rx# :[id number] Sodium Chloride 0.9% 1, 900 000 ml @ 75 mls/hr IV . [id number] [facility] Rx#:[id number] Intake, IV Titration 100 Amount Sodium Ferric Gluconat- 100 Sucrose 125 mg In Sodium Chloride 0.9% 100 ml @ 100 mls/hr IVPB DAILY [facility] Rx#:[id number] Oral 540 240 Output: Urine 875 450 175 Other: Voiding Method Urinal Urinal Urinal # Voids 1 2 - Exam PHYSICAL EXAMINATION: HEENT: Head is atraumatic, normocephalic. Pupils equal, round. Neck is supple. There is no elevated jugular venous pressure. HEART EXAMINATION: Heart sounds irregularly irregular, S1 and S2 with a systolic murmur. CHEST EXAMINATION: Lungs reveal faint crackles in the lower lobes.. No chest wall tenderness is noted on palpation or with deep breathing. ABDOMEN: Soft, nontender. Bowel sounds are heard. No organomegaly noted. EXTREMITIES:[ Right pedal pulse not palpable but documented Doppler pulse with evidence of right fourth toe cyanosis and blistering noted to right lower leg with discoloration. NEUROLOGIC patient is awake, alert and oriented x3. . - Labs CBC & Chem 7: 05/06/19 06:27 05/07/19 05:59 Labs: Abnormal Lab Results - Last 24 Hours (Table) 05/07/19 Range/Units 05:59 Chloride 110 H (98-107) mmol/L Carbon Dioxide 15 L (22-30) mmol/L BUN 44 H (9-20) mg/dL Glucose 133 H (74-99) mg/dL Calcium 6.5 L (8.4-10.2) mg/dL Microbiology - Last 24 Hours (Table) 05/03/19 13:48 Blood Culture - Preliminary Blood No Growth after 72 hours Assessment and Plan Assessment: #1 dehydration #2 chronic diastolic congestive heart failure #3 pulmonary hypertension #4 probable ischemia of the right lower extremity awaiting further input from Dr. Cline #5 coronary artery disease with prior PTCA and bypass surgery #6 history of PAD with prior interventions by Dr. Cline and Dr. Britton Plan: From cardiology's perspective, we'll give the patient one dose of IV Lasix today. Follow renal function and electrolytes. We will continue to follow patient provide further recommendations accordingly. BRACER note has been reviewed, I agree with a documented findings and plan of care. Patient was seen and examined.
[2019-05-07] MEDS: IPRATROPIUM-ALBUTEROL 3 ML NEB INHALATION SCH ×3 (11:44→20:27)
[2019-05-07] MEDS: NYSTATIN 100,000 UNIT/ML SUSP 500,000 UNIT/5 ML CUP PO SCH ×3 (12:27→19:43)
[2019-05-07] MEDS: DOCUSATE 100 MG CAP PO SCH (12:27)
--- NOTE | 2019-05-07 12:33 | XR ---
EXAMINATION TYPE: XR chest 1V portable DATE OF EXAM: 05/07/2019 COMPARISON: 05/04/2019 HISTORY: Shortness of breath TECHNIQUE: Single frontal view of the chest is obtained. FINDINGS: Cardiomegaly, atherosclerotic change aorta and postsurgical changes noted. Diffuse bilater al infiltrate and pleural effusion seen. Biapical pleural thickening. IMPRESSION: Stable pleural-parenchymal changes most typical of CHF. Underlying pneumonia not exclude d.
--- NOTE | 2019-05-07 12:37 | P.PN ---
Subjective Progress Note Date: 05/07/19 Seen and examined for the follow-up of chronic kidney disease. Complaining of shortness of breath today. Currently on IV fluids normal saline at 75 ML's an hour. He had CTA of the right leg 100 ML of contrast was used. Currently complaining of shortness of breath. Objective - Vital Signs Vital signs: Vital Signs Temp 97.3 F L 05/07/19 12:00 Pulse 86 05/07/19 12:00 Resp 20 05/07/19 12:00 BP 112/53 05/07/19 12:00 Pulse Ox 95 05/07/19 12:00 Intake & Output 05/06/19 05/07/19 05/07/19 18:59 06:59 18:59 Intake Total 540 1340 Output Total 875 450 175 Balance -335 -450 1165 Weight 83.5 kg Intake: IV 1000 Piperacillin-Tazobactam 3 100 .375 gm In Sodium Chloride 0.9% 100 ml @ 25 mls/hr IVPB Q8HR [facility] Rx# :[id number] Sodium Chloride 0.9% 1, 900 000 ml @ 75 mls/hr IV . [id number] [facility] Rx#:[id number] Intake, IV Titration 100 Amount Sodium Ferric Gluconat- 100 Sucrose 125 mg In Sodium Chloride 0.9% 100 ml @ 100 mls/hr IVPB DAILY [facility] Rx#:[id number] Oral 540 240 Output: Urine 875 450 175 Other: Voiding Method Urinal Urinal Urinal # Voids 1 2 - Exam Mild distress with shortness of breath. S1-S2 heard Crackles bilateral lung bases Right foot infection, trace edema - Labs CBC & Chem 7: 05/06/19 06:27 05/07/19 05:59 Labs: Abnormal Lab Results - Last 24 Hours (Table) 05/07/19 Range/Units 05:59 Chloride 110 H (98-107) mmol/L Carbon Dioxide 15 L (22-30) mmol/L BUN 44 H (9-20) mg/dL Glucose 133 H (74-99) mg/dL Calcium 6.5 L (8.4-10.2) mg/dL Microbiology - Last 24 Hours (Table) 05/03/19 13:48 Blood Culture - Preliminary Blood No Growth after 72 hours Assessment and Plan Assessment: #1 acute kidney injury secondary to prerenal process creatinine improving. Baseline creatinine 0.8-1.0 MG per DL. #2 metabolic acidosis secondary to acute kidney injury. #3 shortness of breath secondary to pulmonary edema #4 peripheral vascular disease with right foot infection #5 hypertension #6 anemia Plan: #1 stop IV fluids. Give 1 dose of Lasix 40 mg IV #2 check labs in the morning. #3 avoid nephrotoxic agents and hypotensive episodes.
[2019-05-07] MEDS: ATORVASTATIN 40 MG TAB PO SCH (19:43)
[2019-05-07] MEDS: AMIODARONE 200 MG TAB PO SCH (19:43)
--- NOTE | 2019-05-07 20:52 | PN ---
PROGRESS NOTE DATE OF SERVICE: 05/07/2019 This is a very pleasant 79-year-old gentleman with a known history of extensive peripheral vascular disease with previous femoral-popliteal arthrectomy and bovine patch insertion in addition to history of chronic atrial fibrillation, not able to maintain on anticoagulation due to alcoholic GI bleeding. He presented here on 05/03/2019 with acute painful right lower extremity and ischemic 4th toe on the right foot. He is seen today in followup on the selective care unit. Awake and alert, in mild respiratory distress. His breathing is a bit worse today as compared to yesterday. He is maintaining O2 saturations in the mid 90s on 2 L/minute per nasal cannula. He is afebrile. Hemodynamically stable. He had a chest x-ray shows stable pleural-parenchymal changes typical of congestive heart failure. Underlying pneumonia could not be excluded. He has been maintained on antibiotics in the form of Zosyn. PHYSICAL EXAM: He is awake and alert, in no acute distress. Vital signs revealed blood pressure 112/53, heart rate 86, respirations 20, temperature is 97.3, 95% O2 saturation on 2 L/minute per nasal cannula. HEAD: Normocephalic, sclerae anicteric. NECK: Supple. Trachea midline. LUNGS: With crackles in the bilateral posterior bases, diminished. His heart is irregularly irregular S1, S2. ABDOMEN: Soft, nontender. Bowel sounds are present. There is 1 to 2+ lower extremity peripheral edema. Dressings are applied to the right foot. Peripheral pulses are intact. INVESTIGATIONS: Blood cultures reveal no growth. Urine culture reveals no growth. Sodium 137, potassium 4.7, chloride 110, bicarb 15, BUN 44, creatinine 1.21. Medications are reviewed. IMPRESSION: 1. Acute painful right lower extremity in a patient with severe peripheral vascular disease and previous femoral-popliteal endarterectomy and bovine graft. CT angiogram of the lower extremity reveals diffuse atherosclerotic vascular disease. There is probably some hemodynamic stenosis of the proximal right femoral artery. Diffuse plaque formation in the right femoral artery and popliteal artery. Probable hemodynamic stenosis in multiple segments of the mid and distal femoral artery and the popliteal artery. There is occlusion of the proximal right posterior tibial artery. There is some subcutaneous emphysema around the right foot and leg. 2. Acute leukocytosis slightly improved. 3. Sepsis secondary to above. 4. Coronary artery disease with previous stenting of the RCA. 5. Acute exacerbation of congestive heart failure. 6. Chronic atrial fibrillation. 7. Gout. 8. History of hypertension. 9. History of right-sided heart failure with severe cor pulmonale. 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 11.History of occult GI bleeding. 12.Chronic anemia. 13.Hyperlipidemia. 14.Benign prostatic hypertrophy. 15.Myeloproliferative disorder. 16.Acute kidney injury, improving with current creatinine 1.21. PLAN: The patient was seen and evaluated by Dr. Moreno. Chest x-ray reviewed. The patient does have some component of fluid volume overload. We will initiate bronchodilators. Obtain a sputum sample if possible. He is given Lasix 40 mg IVP x1. Continue sodium bicarb. Continue antibiotics in the form of Zosyn. We will continue to follow and make further recommendations based on his clinical status. I, the cosigning physician, performed a history and physical examination on the patient. Lung sounds with crackles in the bilateral posterior bases. Maintain O2 saturations in the 90s on 2 L/minute per nasal cannula. I discussed the assessment and plan of care with my nurse practitioner, Cristiana Landers. I attest the above note as dictated by her. MMODL / IJN: [id number] /
[2019-05-08] MEDS: MORPHINE SULFATE 2 MG/ML SYRINGE IVP PRN ×5 (01:35→21:23)
[2019-05-08] MEDS: PANTOPRAZOLE 40 MG TABLET PO SCH (06:05)
[2019-05-08 06:48] LABS: Calcium 6.6 mg/dL (8.4-10.2); Potassium 4.7 mmol/L (3.5-5.1)
[2019-05-08] MEDS: IPRATROPIUM-ALBUTEROL 3 ML NEB INHALATION SCH ×4 (08:53→19:08)
[2019-05-08] MEDS: SODIUM FERRIC GLUCONAT-SUCROSE 125 MG in SODIUM CHLORIDE 0.9% 100 ML IVPB SCH (09:39)
[2019-05-08] MEDS: ASPIRIN 81 MG PO SCH (09:42)
[2019-05-08] MEDS: SODIUM BICARBONATE TAB 650 MG TAB PO SCH ×2 (09:42→21:17)
[2019-05-08] MEDS: CALCIUM CARBONATE 500 MG CHEWABLE PO SCH ×2 (09:42→21:22)
[2019-05-08] MEDS: DOCUSATE 100 MG CAP PO SCH (09:42)
[2019-05-08] MEDS: NYSTATIN 100,000 UNIT/ML SUSP 500,000 UNIT/5 ML CUP PO SCH ×4 (09:42→21:51)
[2019-05-08] MEDS: METOPROLOL TARTRATE 12.5 MG TAB PO SCH ×2 (09:42→21:21)
[2019-05-08] MEDS: HEPARIN SODIUM,PORCINE 5,000 UNIT/ML 1 ML VIAL SQ SCH ×3 (09:43→23:47)
[2019-05-08] MEDS: CLOPIDOGREL 75 MG TAB PO SCH (09:43)
[2019-05-08] MEDS: ALLOPURINOL 100 MG TAB PO SCH (09:43)
[2019-05-08] MEDS: predniSONE 20 MG TAB PO SCH (09:43)
[2019-05-08] MEDS: PIPERACILLIN-TAZOBACTAM 3.375 GM in SODIUM CHLORIDE 0.9% 100 ML IVPB SCH (09:43)
--- NOTE | 2019-05-08 10:12 | P.PN ---
Subjective Progress Note Date: 05/08/19 Seen and examined for the follow-up of chronic kidney disease. Still c/o of sob. Coughing up bloody sputum.He had CTA of the right leg 100 ML of contrast was used. Good urine output. Objective - Vital Signs Vital signs: Vital Signs Temp 97.7 F 05/08/19 04:00 Pulse 100 05/08/19 04:00 Resp 19 05/08/19 04:00 BP 129/64 05/08/19 04:00 Pulse Ox 96 05/08/19 04:00 Intake & Output 05/07/19 05/08/19 05/08/19 18:59 06:59 18:59 Intake Total 1940 240 Output Total 175 825 Balance 1765 -825 240 Weight 84 kg Intake: IV 1000 Piperacillin-Tazobactam 3 100 .375 gm In Sodium Chloride 0.9% 100 ml @ 25 mls/hr IVPB Q8HR [facility] Rx# :[id number] Sodium Chloride 0.9% 1, 900 000 ml @ 75 mls/hr IV . [id number] [facility] Rx#:[id number] Intake, IV Titration 100 Amount Sodium Ferric Gluconat- 100 Sucrose 125 mg In Sodium Chloride 0.9% 100 ml @ 100 mls/hr IVPB DAILY [facility] Rx#:[id number] Oral 840 240 Output: Urine 175 825 Other: Voiding Method Urinal Urinal # Voids 2 1 - Exam Mild distress with shortness of breath. S1-S2 heard decreased breath sounds in the bases Right foot infection, edema - Labs CBC & Chem 7: 05/06/19 06:27 05/08/19 06:16 Labs: Abnormal Lab Results - Last 24 Hours (Table) 05/08/19 Range/Units 06:16 Chloride 110 H (98-107) mmol/L Carbon Dioxide 17 L (22-30) mmol/L BUN 45 H (9-20) mg/dL Glucose 149 H (74-99) mg/dL Calcium 6.6 L (8.4-10.2) mg/dL Microbiology - Last 24 Hours (Table) 05/03/19 13:48 Blood Culture - Preliminary Blood No Growth after 96 hours Assessment and Plan Assessment: #1 acute kidney injury secondary to prerenal process, creatinine currently at baseline #2 metabolic acidosis secondary to acute kidney injury. #3 shortness of breath secondary to pulmonary edema #4 peripheral vascular disease with right foot infection #5 hypertension #6 anemia Plan: #1 c/w iv lasix 40 mg bid, and possibly switch to po by tomorrow. #2 avoid nephrotoxic agents and hypotensive episodes.
[2019-05-08] MEDS ORDERED: FUROSEMIDE 10 MG/ML 4 ML VIAL IV SCH (10:15)
[2019-05-08 10:39] LABS: Anisocytosis Marked; HGB 8.3 gm/dL (13.0-17.5); Hypochromasia Marked; MCH 26.2 pg (25.0-35.0); MCHC 27.5 g/dL (31.0-37.0); MCV 95.4 fL (80.0-100.0); Macrocytosis Moderate; Mean Platelet Volume 11.1; Platelet Count 514 k/uL (150-450); Poikilocytosis Marked; RBC 3.15 m/uL (4.30-5.90); RDW 24.9 % (11.5-15.5)
[2019-05-08 10:45] LABS: WBC 68.6 k/uL (3.8-10.6)
--- NOTE | 2019-05-08 11:33 | P.PN ---
Subjective Progress Note Date: 05/08/19 This is a pleasant 79-year-old patient who follows Dr. GERI Pelayo in the office has history of CAD, prior bypass, prior PCI, PAD with previous surgical and peripheral intervention by Dr. Mcfadden and Dr. Cline about 2 years ago. Had a recent hospitalization with acute on chronic diastolic heart failure and p ulmonary hypertension. Presented this admission with dehydration and complaints of pain in his lower extremities with evidence of blistering to the right lower leg and cyanotic right fourth toe. He has been seen by Dr. Cline and an arterial duplex study has been done, results are pending. He does have a history of atrial fibrillation but cannot be anticoagulated and is scheduled with Dr. Curtis Redmond on the of this month to undergo watchman procedure. He did have hypotension upon admission and this has stabilized. 05/07/19 - the patient complains of worsening shortness of breath today. He does feel that his right lower extremity symptoms have improved. This is being followed by Dr. Cline. Spine show hemoglobin of 8.1, potassium 4.7, BUN 44 and creatinine 1.21. 05/08/19 - The patient continues to complain of shortness of breath that is unchanged compared to yesterday. He is also tachypneic He also complains of worsening symptoms of pain in Right lower extremity compared to yesterday, being followed by Dr. Cline. Chest x-ray done yesterday showed stable pleural-par enchymal changes most typical of CHF, underlying pneumonia not excluded. Laboratory values today show potassium 4.7, BUN of 45, creatinine of 1.12 and a calcium of 6.6 which is stable. Objective - Vital Signs Vital signs: Vital Signs Temp 96.3 F L 05/08/19 08:00 Pulse 102 H 05/08/19 08:00 Resp 19 05/08/19 08:00 BP 134/77 05/08/19 08:00 Pulse Ox 98 05/08/19 08:00 Intake & Output 05/07/19 05/08/19 05/08/19 18:59 06:59 18:59 Intake Total 1940 240 Output Total 175 825 Balance 1765 -825 240 Weight 84 kg Intake: IV 1000 Piperacillin-Tazobactam 3 100 .375 gm In Sodium Chloride 0.9% 100 ml @ 25 mls/hr IVPB Q8HR [facility] Rx# :[id number] Sodium Chloride 0.9% 1, 900 000 ml @ 75 mls/hr IV . [id number] [facility] Rx#:[id number] Intake, IV Titration 100 Amount Sodium Ferric Gluconat- 100 Sucrose 125 mg In Sodium Chloride 0.9% 100 ml @ 100 mls/hr IVPB DAILY [facility] Rx#:[id number] Oral 840 240 Output: Urine 175 825 Other: Voiding Method Urinal Urinal # Voids 2 1 - Exam PHYSICAL EXAMINATION: HEENT: Head is atraumatic, normocephalic. Pupils equal, round. Neck is supple. There is no elevated jugular venous pressure. HEART EXAMINATION: Heart sounds irregularly irregular, S1 and S2 with a systolic murmur. CHEST EXAMINATION: Lungs reveal few faint crackles in the bases. No chest wall tenderness is noted on palpation or with deep breathing. ABDOMEN: Soft, nontender. Bowel sounds are heard. No organomegaly noted. EXTREMITIES: Right pedal pulse not palpable but documented Doppler pulse with evidence of right fourth toe cyanosis and dressing in place to right lower leg. NEUROLOGIC patient is awake, alert and oriented x3. . - Labs CBC & Chem 7: 05/08/19 06:16 05/08/19 06:16 Labs: Abnormal Lab Results - Last 24 Hours (Table) 05/08/19 Range/Units 06:16 Chloride 110 H (98-107) mmol/L Carbon Dioxide 17 L (22-30) mmol/L BUN 45 H (9-20) mg/dL Glucose 149 H (74-99) mg/dL Calcium 6.6 L (8.4-10.2) mg/dL Microbiology - Last 24 Hours (Table) 05/03/19 13:48 Blood Culture - Preliminary Blood No Growth after 96 hours Assessment and Plan Assessment: #1 dehydration #2 chronic diastolic congestive heart failure #3 pulmonary hypertension #4 probable ischemia of the right lower extremity awaiting further input from Dr. Cline #5 coronary artery disease with prior PTCA and bypass surgery #6 history of PAD with prior interventions by Dr. Cline and Dr. Britton Plan: From cardiology's perspective, agree with starting IV Lasix. Repeat CXR and check ABGs. Follow renal function and electrolytes. Await pulmonary input. We will continue to follow patient provide further recommendations accordingly. GLUING MACHINE ADJUSTER note has been reviewed, I agree with a documented findings and plan of care. Patient was seen and examined.
--- NOTE | 2019-05-08 12:25 | XR ---
EXAMINATION TYPE: XR chest 2V DATE OF EXAM: 05/08/2019 COMPARISON: 05/07/2019 TECHNIQUE: PA and lateral views submitted. HISTORY: Shortness of breath FINDINGS: Heart is enlarged and is atherosclerotic change aorta. There is postsurgical changes. Diffuse interst itial pattern with small bilateral effusions and basilar infiltrate. No pneumothorax. Arthropathy of the shoulders. Vascular calcifications noted. On the lateral view there is radiopaque density overlyi ng the thoracic spine. IMPRESSION: 1. Correlate for CHF stable from prior exam. Underlying pneumonia not entirely excluded. Image on the lateral view there is radiopaque density overlying the mid thoracic spine. This may be superficial p atient correlate clinically to exclude other etiologies.
[2019-05-08] MEDS ORDERED: VANCOMYCIN IV PER PHARMACY 1 EACH MISC MISCELLANE PRN (13:17)
[2019-05-08] MEDS ORDERED: SODIUM CHLORIDE 0.9% 1,000 ML IV SCH (13:30)
--- NOTE | 2019-05-08 13:38 | P.PN ---
Subjective Progress Note Date: 05/08/19 Principal diagnosis: Right toe ischemia Patient was seen and examined. No acute events overnight. Patient reports worsening pain in his right lower extremity from the into the front of the foot. Pain is 10 out of 10 in severity. Patient denies any chest pain, shortness of breath or palpitations. No nausea or vomiting. No fever or chills. Objective - Vital Signs Vital signs: Vital Signs Temp 96.4 F L 05/08/19 11:56 Pulse 104 H 05/08/19 11:58 Resp 28 H 05/08/19 11:58 BP 115/70 05/08/19 11:56 Pulse Ox 98 05/08/19 11:56 Intake & Output 05/07/19 05/08/19 05/08/19 18:59 06:59 18:59 Intake Total 1940 240 Output Total 175 825 Balance 1765 -825 240 Weight 84 kg Intake: IV 1000 Piperacillin-Tazobactam 3 100 .375 gm In Sodium Chloride 0.9% 100 ml @ 25 mls/hr IVPB Q8HR JOSE Rx# :[id number] Sodium Chloride 0.9% 1, 900 000 ml @ 75 mls/hr IV . [id number] JOSE Rx#:[id number] Intake, IV Titration 100 Amount Sodium Ferric Gluconat- 100 Sucrose 125 mg In Sodium Chloride 0.9% 100 ml @ 100 mls/hr IVPB DAILY JOSE Rx#:[id number] Oral 840 240 Output: Urine 175 825 Other: Voiding Method Urinal Urinal Urinal # Voids 2 1 - Exam General: [non toxic], [no distress], [appears at stated age] Derm: [warm], [dry] Head: [atraumatic], [normocephalic], [symmetric] Eyes: [EOMI], [no lid lag], [anicteric sclera] Mouth: [no lip lesion], [mucus membranes moist] Cardiovascular: [S1S2 reg], [irregularly irregular], [unable to Doppler DP her PT pulse in right lower extremity] Lungs: [decreased breath sounds bilateral], [no rhonchi, no rales] , [no accessory muscle use] Abdominal: [soft], [ nontender to palpation], [no guarding], [no appreciable organomegaly] Ext: [no gross muscle atrophy], [ lower extremity edema], [no contractures] Neuro: [right fourth toe purple discoloration with erythema that extends to the mid oh and inner thigh, foot wrapped with dressings clean dry and intact] Psych: [Alert], [oriented], [appropriate affect] - Labs CBC & Chem 7: 05/08/19 06:16 05/08/19 06:16 Labs: Abnormal Lab Results - Last 24 Hours (Table) 05/08/19 05/08/19 05/08/19 Range/Units 06:16 06:16 12:10 WBC 68.6 H* (3.8-10.6) k/uL RBC 3.15 L (4.30-5.90) m/uL Hgb 8.3 L (13.0-17.5) gm/dL Hct 30.0 L (39.0-53.0) % MCHC 27.5 L (31.0-37.0) g/dL RDW 24.9 H (11.5-15.5) % Plt Count 514 H (150-450) k/uL Chloride 110 H (98-107) mmol/L Carbon Dioxide 17 L (22-30) mmol/L BUN 45 H (9-20) mg/dL Glucose 149 H (74-99) mg/dL Plasma Lactic Acid Moe 4.4 H* (0.7-2.0) mmol/L Calcium 6.6 L (8.4-10.2) mg/dL Microbiology - Last 24 Hours (Table) 05/03/19 13:48 Blood Culture - Preliminary Blood No Growth after 96 hours Assessment and Plan Assessment: Assessment and Plan Right 4th toe discoloration, possibly related to thromboembolic disease Sepsis, possibly related to right lower extremity cellulitis Lactic acidosis Oral thrush Acute on chronic systolic CHF exacerbation Hypocalcemia Acute kidney injury with metabolic acidosis Myeloproliferative disorder with leukocytosis CAD with recent RCA stent Atrial flutter Gout Patient with history of right lower extremity ischemia with common femoral severe occlusive disease status post right common femoral artery endarterectomy in March 2018. Unable to Doppler DP or PT pulse and right foot today. CTA aorta with runoff shows diffuse atheromatous changes with occlusion of the proximal right posterior tibial artery. Plans: Pain control with Tylenol or morphine as needed. Case was discussed with Dr. Leggett and Dr. Cline, plans for possible amputation of the fourth toe and angiogram today. Neurochecks and right lower extremity. Continue aspirin and Plavix. Patient with increased white count of 68.6 from 31.3 yesterday, hypothermic to 96.4, tachycardic to 104 with lactic acid elevated at 4.4. Likely related to right lower extremity cellulitis. Urine culture negative. Blood culture 05/03 negative at 96 hours. Plans: Currently off pressors. Continue normal saline at 50 mL per hour (decreased from 120 cc/h). Tylenol as needed for fever. Patient restarted on vancomycin and cefepime, discussed with Dr. Joseph. Follow blood culture, wound culture. Follow infectious disease consult. Lactic acid 4.4. Likely secondary to ischemia of the right foot. Plans: Continue IV antibiotics as above. Follow vascular surgery plans as above. Repeat lactic acid. As seen on physical exam. Plans: Nystatin swish and swallow. Chest x-ray with concerns of pulmonary edema secondary to CHF exacerbation. Plans: Lasix 40 mg IV twice a day restarted. Hold spironolactone. Continue metoprolol 12.5 mg by mouth twice a day. Plans to reintroduce when BP improved. Strict intake and output take. Daily weight. We'll be cautious as patient is being hydrated with IVF. Follow cardiology consultation. Calcium 6.2-6.5 x 2. Low vitamin D of 15.8. Plans: Daily CMP. Start calcium carbonate 500 mg by mouth twice a day. Start vitamin D 50,000 units weekly. Creatinine from 2.12-1.78-1.39-within normal limits. HCO3 52-74-64-15-17. Likely secondary to diuresis. Renal ultrasound shows abdominal ascites, no hydronephrosis or nephrolithiasis. Plans: Daily BMP. Avoid nephrotoxins. Follow nephrology consultation. Continue sodium bicarb by mouth. WBC count 35.6-41.2-35-31.3-68.6, hemoglobin 8.5-8.8-8.0-8.1-8.3. Leukocytosis likely stress-induced. Gets weekly Procrit injections at Dr. Miller's office. Plan: Daily CBC. Procrit injections weekly. Start IV iron as per nephrology recommendations. Plan: Continue aspirin, Plavix and Lipitor. Metoprolol resumed. Plan: No anticoagulation due to recurrent GI bleeds. Continue amiodarone. Hold beta quan due to hypotension. Telemetry monitoring. Follow cardiology consult. Uric acid elevated at 16.9. Plans: We'll continue prednisone. Restart Allopurinol. Pain control with Tylenol or morphine. Follow PT recommendations. Patient admitted for possible sepsis due to right lower extremity cellulitis, ID on board. Cardiology on board for CHF exacerbation. There are some concerns for thromboembolic disease of the right lower extremity, vascular surgery was consulted, plans for possible OR today. Prognosis is very guarded.
[2019-05-08 13:49] LABS: ABG Base Excess -10.5 mmol/L; ABG HCO3 15 mmol/L (21-25); ABG Oxygen Saturation 92.7 % (94-97); ABG PCO2 27 mmHg (35-45); ABG PH 7.36 (7.35-7.45); ABG PO2 71 mmHg (83-108); ABG TCO2 16 mmol/L (19-24); Allen Test Performed? Yes
--- NOTE | 2019-05-08 14:50 | P.PN ---
Subjective Progress Note Date: 05/08/19 Principal diagnosis: Acute painful right lower extremity, severe peripheral vascular disease, status post previous fem-pop endarterectomy and bovine graft. Possible localized infe ction at the level of the graft with septic embolization to the right lower extremity, ischemic fourth toe on right foot This is a 79-year-old male patient with known history of extensive peripheral vascular disease with previous fem-pop arthrectomy and bovine patch insertion in addition to history of chronic atrial fibrillation was not been able to maintain on anticoagulation because of alcohol GI bleeding. The patient also known to have coronary artery disease, diastolic heart failure, hypertension and hyperlipidemia and gout. The patient came into the hospital yesterday because of an extensive right leg pain. The pain was mainly over the posterior aspect of his right callus and the patient also developed a bluish discoloration of the fourth toe. There was also some erythematous rash over the oh and over the anterior/medial thigh area where the vascular intervention was done earlier. On examination, the area is quite painful. The patient had a Doppler of the right lower x-ray that showed no evidence of any DVT. Pulses were obtained by Doppler signal in the popliteal dorsalis pedis and anterior tibialis. The patient is adequate femoral vein in the right groin area that was palpable. The patient is afebrile. The patient is hemodynamically stable. He was started on antibiotics for now. His cardiac rhythm remains in atrial fibrillation. The patient had a repeat echocardiogram today that showed severe pulmonary hypertension which has been noted on previous echocardiogram with a PA pressure estimated to be in the 90 mmHg range. He was furthermore found to have elevated uric acid level which probably is not related to this current presentation. The patient has underlying history of gout. The patient's current white count is 41.2. The patient has significant neutrophilia of 38%. The patient was started on accommodation Zosyn and vancomycin. The patient is on no pressors for now. Outpatient medications have been ordered resume. The primary cultures are negative for the past 24 hours. On today's evaluation of 72,019 the patient is being seen for a follow-up. He has a bluish/necrotic fourth toe. The erythema over the thigh still present. Erythema of the calvaria still present. The area is less tender compared to yesterday. Hemodynamically stable and the patient is currently off pressors. He is afebrile. He is covered with Zosyn. White cell count is down to 35. Repeat blood cultures of been all negative. Clinically much more alert and awake compared to yesterday. No chest pain. No significant shortness of breath. Slightly acidotic with a bicarb level of 15. This is an anion gap metabolic acidosis. Creatinine is down to 1.39 and the patient shows some improvement in renal function compared to yesterday. Cardiac rhythm is atrial fibrillation. Echocardiogram results were discussed yesterday the patient has severe pulmonary hypertension. The patient was seen by vascular surgery. Their impression is consistent with right fourth toe wound/infection with atherosclerotic disease involving lower oximetry is bilaterally. An angiogram as being planned at a later stage is no signs of improvement after conservative treatment. May need a fourth toe amputation at a later stage. On 05/06/2019 patient has been seen in follow-up on selective care unit, he is awake and alert, resting in bed, he states his right calf is still quite tender to touch, the pain in his right foot. Right groin redness has subsided, however right calf redness and pitting edema remains, right foot fourth toe is still cyanotic, bluish discoloration. Denies any shortness of breath, remains on 2 L of oxygen with a pulse ox of 92%, he is afebrile, hemodynamically patient is stable. No cough or congestion. All culture data remains negative thus far, including blood cultures and urine culture. His labs have been reviewed, showing a down trend in the white blood cell count down to 31.3, hemoglobin of 8.1, serum sodium is 137, potassium is 4.6, chloride is 112, CO2 is 16, BUN of 43, and creatinine is 1.17. Patient is on Zosyn for antibiotic coverage. ID service is following On 05/08/2019 patient seen in follow-up on the selective care unit. Right lower extremity with persistent pain, although erythema and warmth have subsided. Doppler right posttibial pulse, unable to obtain right posttibial pulse, no doppler right pedal pulse. Patient does admit to some shortness of breath, but no acute distress., is on 2 L of oxygen with pulse ox of 90%, temp is 96.4 axillary, slightly tachycardic, with a rate in the low 100s, no chest pain. Right fourth toe remains purple, dusky, right calf listers had been opened and drained, and there is demarcation with some blanching along the margins surrounding the blisters. Today's labs there is acute elevation of white blood cell count up to 68.6, hemoglobin of 8.3, serum sodium is 137, potassium is 4.7, chloride is 110, CO2 is 17, BUN is 45, creatinine is 1.12. Lactic acid was ob tained showing lactic acidemia of 4.4, creatinine kinase was 85. Blood gas was obtained on FiO2 of 28%, showing pO2 of 71, pCO2 of 27, and pH of 7.36, consistent with metabolic acidosis with respiratory compensation, and hypoxemia. Patient is on antibiotics in the form of cefepime, and vancomycin, ID service is following. Chest x-ray was obtained showing pulmonary edema, and patient is on IV Lasix. Vascular surgery is following the patient, and patient is scheduled for possible amputation of the fourth toe and angiogram today. He is on aspirin and Plavix. Objective - Vital Signs Vital signs: Vital Signs Temp 96.4 F L 05/08/19 11:56 Pulse 104 H 05/08/19 11:58 Resp 28 H 05/08/19 11:58 BP 115/70 05/08/19 11:56 Pulse Ox 98 05/08/19 11:56 Intake & Output 05/07/19 05/08/19 05/08/19 18:59 06:59 18:59 Intake Total 1940 470 Output Total 175 825 600 Balance 1765 -825 -130 Weight 84 kg Intake: IV 1000 200 Piperacillin-Tazobactam 3 100 100 .375 gm In Sodium Chloride 0.9% 100 ml @ 25 mls/hr IVPB Q8HR JOSE Rx# :[id number] Sodium Chloride 0.9% 1, 900 000 ml @ 75 mls/hr IV . [id number] JOSE Rx#:[id number] Sodium Ferric Gluconat- 100 Sucrose 125 mg In Sodium Chloride 0.9% 100 ml @ 100 mls/hr IVPB DAILY JOSE Rx#:[id number] Intake, IV Titration 100 Amount Sodium Ferric Gluconat- 100 Sucrose 125 mg In Sodium Chloride 0.9% 100 ml @ 100 mls/hr IVPB DAILY JOSE Rx#:[id number] Oral 840 270 Output: Urine 175 825 600 Other: Voiding Method Urinal Urinal Urinal # Voids 2 1 - Exam GENERAL EXAM: Alert, pleasant, 79-year-old white male, on 2 L of oxygen, comfortable in no apparent distress. HEAD: Normocephalic/atraumatic. EYES: Normal reaction of pupils, equal size. Conjunctiva pink, sclera white. NOSE: Clear with pink turbinates. THROAT: No erythema or exudates. NECK: No masses, no JVD, no thyroid enlargement, no adenopathy. CHEST: No chest wall deformity. Symmetrical expansion. LUNGS: Equal air entry with some scattere wheezes CVS: Regular rate and rhythm, normal S1 and S2, no gallops, no murmurs, no rubs ABDOMEN: Soft, nontender. No hepatosplenomegaly, normal bowel sounds, no guarding or rigidity. EXTREMITIES: No clubbing, no cyanosis, 2+ pulses and upper and lower extremities. There is localized edema and erythema in the right calf, and anterior oh, previous area of erythema in the right groin has subsided, and has actually resolved, the fourth digit on the right foot is dark blue/purple discoloration with surrounding erythema extending to its. No open wounds or sores. There are open blisters on the back of her right calf with surrounding bluish and whitish discoloration MUSCULOSKELETAL: Muscle strength and tone normal. SPINE: No scoliosis or deformity SKIN: No rashes CENTRAL NERVOUS SYSTEM: Alert and oriented -3. No focal deficits, tone is normal in all 4 extremities. PSYCHIATRIC: Alert and oriented -3. Appropriate affect. Intact judgment and insight. - Labs CBC & Chem 7: 05/08/19 06:16 05/08/19 06:16 Labs: Abnormal Lab Results - Last 24 Hours (Table) 05/08/19 05/08/19 05/08/19 Range/Units 06:16 06:16 12:10 WBC 68.6 H* (3.8-10.6) k/uL RBC 3.15 L (4.30-5.90) m/uL Hgb 8.3 L (13.0-17.5) gm/dL Hct 30.0 L (39.0-53.0) % MCHC 27.5 L (31.0-37.0) g/dL RDW 24.9 H (11.5-15.5) % Plt Count 514 H (150-450) k/uL ABG pCO2 (35-45) mmHg ABG pO2 (83-108) mmHg ABG HCO3 (21-25) mmol/L ABG Total CO2 (19-24) mmol/L ABG O2 Saturation (94-97) % Chloride 110 H (98-107) mmol/L Carbon Dioxide 17 L (22-30) mmol/L BUN 45 H (9-20) mg/dL Glucose 149 H (74-99) mg/dL Plasma Lactic Acid Moe 4.4 H* (0.7-2.0) mmol/L Calcium 6.6 L (8.4-10.2) mg/dL 05/08/19 Range/Units 13:22 WBC (3.8-10.6) k/uL RBC (4.30-5.90) m/uL Hgb (13.0-17.5) gm/dL Hct (39.0-53.0) % MCHC (31.0-37.0) g/dL RDW (11.5-15.5) % Plt Count (150-450) k/uL ABG pCO2 27 L (35-45) mmHg ABG pO2 71 L (83-108) mmHg ABG HCO3 15 L (21-25) mmol/L ABG Total CO2 16 L (19-24) mmol/L ABG O2 Saturation 92.7 L (94-97) % Chloride (98-107) mmol/L Carbon Dioxide (22-30) mmol/L BUN (9-20) mg/dL Glucose (74-99) mg/dL Plasma Lactic Acid Moe (0.7-2.0) mmol/L Calcium (8.4-10.2) mg/dL Microbiology - Last 24 Hours (Table) 05/03/19 13:48 Blood Culture - Preliminary Blood No Growth after 96 hours Assessment and Plan Plan: 1 acute painful right lower extremity in a patient with severe peripheral vascular disease and previous fem-pop endarterectomy and bovine graft. Consider localized infection at the level of the graft with septic embolization to the right lower extremity as the patient has bluish discoloration of the fourth toe in addition to erythema along his medial thigh and calf which is quite painful. Dopplers signals are obtained in the dorsalis pedis and posterior tibialis and popliteal area. On 05/05/2019 I'm seeing this patient for a follow-up and the patient is hemodynamically improved and his off pressors. White cell count is slightly improved compared to yesterday. Blood cultures been negative and the patient is on IV Zosyn. The patient was seen by vascular surgery. A nonurgent angiogram will be indicated a later stage after conservative management. The patient's fourth toe is somewhat necrotic and there is development of an ulceration laterally. On 05/08/2019 unable to obtain Doppler right posttibial and right pedal pulse, the erythema and warmth of the right lower extremity has subsided, but extremity remains painful, lactic acid is elevated on today's labs, up to 4.4, likely related to ischemia of the right foot. Patient remains on antibiotics, cefepime and vancomycin, no growth on the cultures so far, wound cultures are pending. 2 acute leukocytosis, worsening 3 Non benign gap metabolic acidosis 4 lactic acidemia, likely related to ischemia of the right lower extremity 5 sepsis, to be considered secondary to above 6 coronary artery disease with previous stenting of the RCA 7 chronic atrial fibrillation 8 gout 9 history of hypertension 10 history of right-sided heart failure with severe cor pulmonale 11 history of previous MRSA/gram-negative Enterobacter infection 12 previous history of occult GI bleeding 13 chronic anemia 14 hyperlipidemia 15 BPH 16 history of myeloproliferative disorder 17 acute kidney injury, improved Plan: Transfer the patient to the intensive care unit, lactic acidemia was noted of 4.4, likely related to ischemia of the right lower extremity, case was discussed with vascular surgery and they're planing angiogram of the right lower extremity. We'll switch the IV fluids to D5W with 3 A of bicarbonate a rate of 50. Blood gas was reviewed, showing metabolic acidosis with respiratory compensation. We'll DC the Lasix. Patient has mild shortness of breath no acute distress, likely related to metabolic acidosis, maintaining oxygenation on 2 L of oxygen his pulse ox is 98%. No fever or chills, following cultures. ID service recommendation for antibiotics, patient remains on cefepime and vancomycin. Continue GI DVT prophylaxis. Remains on aspirin and Plavix. Continue to follow I performed a history & physical examination of the patient and discussed their management with my nurse practitioner, Crystal Hanna. I reviewed the nurse practitioner's note and agree with the documented findings and plan of care. Lung sounds are positive for diffuse wheezes throughout the lung ross. The findings and the impression was discussed with the patient. I attest to the documentation by the nurse practitioner. Time with Patient: Less than 30
--- NOTE | 2019-05-08 15:16 | PN ---
PROGRESS NOTE DATE OF SERVICE: 05/08/2019 REASON FOR FOLLOWUP: Right fourth toe gangrene and a question of cellulitis. INTERVAL HISTORY: The patient is currently afebrile. The patient has been complaining of pain to the right leg area into the toe, slightly worse compared to yesterday. Denies having any chest pain. No shortness of breath. No cough. No abdominal pain and no diarrhea. PHYSICAL EXAMINATION: Blood pressure 115/70 with a pulse of 104, temperature 96.4. He is 98% on 2 L nasal cannula. General description is an elderly male, lying in bed in no distress. RESPIRATORY SYSTEM: Unlabored breathing, clear to auscultation anteriorly. HEART: S1, S2. Regular rate and rhythm. ABDOMEN: Soft, no tenderness. Right fourth toe gangrenous changes with minimal serous drainage which was cultured. LABS: BUN of 45, creatinine 1.12, white count . Lactic acid 4.4. DIAGNOSTIC IMPRESSION AND PLAN: Patient with right fourth toe gangrene. This patient who did have significant number, the white count elevated lactic acid, more likely secondary ischemic likely the patient for underlying worsening infection. The patient not running any fever. A blood culture will be repeated. Antibiotic has been adjusted to cefepime and vancomycin and monitor clinical course closely. Plan of care was discussed with the admitting physician as well as the surgeon. Continue supportive care. MMODL / IJN: [id number] /
[2019-05-08 15:33] LABS: Glucose,Whole Blood 176 mg/dL (75-99)
[2019-05-08] MEDS: VANCOMYCIN 1,500 MG in SODIUM CHLORIDE 0.9% 250 ML IVPB SCH (15:48)
[2019-05-08] MEDS: DEXTROSE 5% IN WATER 1,000 ML with SODIUM BICARB (1 MEQ/ML) 150 ML IV SCH (17:40)
[2019-05-08] MEDS: AMIODARONE 200 MG TAB PO SCH (21:21)
[2019-05-08] MEDS: ATORVASTATIN 40 MG TAB PO SCH (21:22)
[2019-05-08] MEDS: CEFEPIME 2 GM in SODIUM CHLORIDE 0.9% 100 ML IVPB SCH (21:22)
[2019-05-09] MEDS: VANCOMYCIN 1,500 MG in SODIUM CHLORIDE 0.9% 250 ML IVPB SCH ×2 (05:46→22:14)
[2019-05-09] MEDS: MORPHINE SULFATE 2 MG/ML SYRINGE IVP PRN ×2 (05:50→15:53)
[2019-05-09 06:21] LABS: INR 1.4 (<1.2); Partial Thromboplastin Time 35.1 sec (22.0-30.0); Prothrombin Time 14.6 sec (9.0-12.0)
[2019-05-09 06:22] LABS: Potassium 4.1 mmol/L (3.5-5.1)
[2019-05-09 06:31] LABS: Anisocytosis Marked; HCT 28.1 % (39.0-53.0); HGB 8.1 gm/dL (13.0-17.5); Hypochromasia Marked; MCH 25.9 pg (25.0-35.0); MCHC 28.9 g/dL (31.0-37.0); Macrocytosis Slight; Mean Platelet Volume 9.2; Microcytosis Slight; Platelet Count 463 k/uL (150-450); Poikilocytosis Marked; RBC 3.14 m/uL (4.30-5.90)
[2019-05-09 06:34] LABS: MCV 89.5 fL (80.0-100.0)
[2019-05-09 06:41] LABS: Calcium 6.4 mg/dL (8.4-10.2)
[2019-05-09 07:12] LABS: Band Neutrophils % 9 %; Metamyelocytes % 8 %; Myelocytes % 4 %; Neutrophils % (M) 71 %; Nucleated Red Blood Cells 11 /100 WBC (0-0); Total Cells Counted 200
[2019-05-09 07:13] LABS: Eosinophils # (M) 2.53 k/uL (0-0.7); Lymphocytes # (M) 3.17 k/uL (1.0-4.8); Metamyelocytes # (M) 5.06 k/uL (0); Monocytes # (M) 0.63 k/uL (0-1.0); Myelocytes # (M) 2.53 k/uL (0); WBC 63.3 k/uL (3.8-10.6)
[2019-05-09 07:14] LABS: Ovalocytes Present; Polychromasia Present
[2019-05-09 07:15] LABS: Large Platelets Present
--- NOTE | 2019-05-09 07:19 | XR ---
EXAMINATION TYPE: XR chest 1V portable DATE OF EXAM: 05/09/2019 COMPARISON: 05/08/2019 HISTORY: Shortness of breath TECHNIQUE: Single frontal view of the chest is obtained. FINDINGS: Heart is enlarged and is atherosclerotic change aorta. There is postsurgical changes. Diff use interstitial pattern with small bilateral effusions and basilar infiltrate. No pneumothorax. Arth ropathy of the shoulders. Vascular calcifications noted. IMPRESSION: Diffuse pleural-parenchymal changes are stable correlate for CHF pulmonary edema versus pneumonia.
[2019-05-09] MEDS: IPRATROPIUM-ALBUTEROL 3 ML NEB INHALATION SCH ×4 (07:50→19:25)
[2019-05-09] MEDS ORDERED: FUROSEMIDE 10 MG/ML 2 ML VIAL IV ONE (08:25)
[2019-05-09] MEDS: PANTOPRAZOLE 40 MG TABLET PO SCH (08:38)
[2019-05-09] MEDS: NYSTATIN 100,000 UNIT/ML SUSP 500,000 UNIT/5 ML CUP PO SCH ×4 (08:38→22:13)
[2019-05-09] MEDS: CALCIUM CARBONATE 500 MG CHEWABLE PO SCH ×2 (08:38→20:06)
[2019-05-09] MEDS: CLOPIDOGREL 75 MG TAB PO SCH (08:38)
[2019-05-09] MEDS: ASPIRIN 81 MG PO SCH (08:38)
[2019-05-09] MEDS: HEPARIN SODIUM,PORCINE 5,000 UNIT/ML 1 ML VIAL SQ SCH ×2 (08:38→16:43)
[2019-05-09] MEDS: predniSONE 20 MG TAB PO SCH (08:38)
[2019-05-09] MEDS: METOPROLOL TARTRATE 12.5 MG TAB PO SCH ×2 (08:38→20:06)
[2019-05-09] MEDS: CEFEPIME 2 GM in SODIUM CHLORIDE 0.9% 100 ML IVPB SCH (08:38)
[2019-05-09] MEDS: ALLOPURINOL 100 MG TAB PO SCH (08:38)
[2019-05-09] MEDS: DOCUSATE 100 MG CAP PO SCH (08:38)
[2019-05-09] MEDS: SODIUM BICARBONATE TAB 650 MG TAB PO SCH ×2 (08:39→20:03)
--- NOTE | 2019-05-09 08:57 | PN ---
PROGRESS NOTE Mr. Burk is a 79-year-old male with known history of coronary artery disease, history of peripheral vascular disease, who presented with gangrene of the right toe. The patient presented with progressive discomfort and infection yesterday. He became more tachypneic and subsequently was transferred to the ICU. He is scheduled to undergo revascularization amputation today. He denies any chest pain. His breathing is better today. He denies any dizziness. No palpitation. He is in atrial fibrillation with controlled ventricular response. The patient is not a candidate for anticoagulation because of recurrent episode of bleeding and he was scheduled to undergo Watchman procedure on the of this month. He continues to be, at this time, on amiodarone 200 mg daily, aspirin once a day, Lipitor 40 mg daily, Plavix 75 mg daily, metoprolol tartrate 12.5 mg twice a day. PHYSICAL EXAMINATION: Blood pressure 106/50 with a heart rate in the 80s. Lungs no wheezes appreciated. Heart irregularly irregular, S1, S2. No S3. No rub appreciated. ABDOMEN: Soft, nontender. EXTREMITIES: No edema. Gangrenous right toe noted. Chest x-ray reveals a small bilateral effusion with basal infiltrate, however, more noted on the right side. His white blood cells are 63,000. BUN and creatinine 45 and 1.24. His pH 7.36, pCO2 27, PO2 of 71 yesterday. His plasma lactic acid yesterday was 2.1. IMPRESSION: 1. Gangrenous right toe with symptoms of progressive dyspnea and evidence of metabolic acidosis. 2. History of coronary artery disease status post coronary artery bypass grafting. 3. Atrial fibrillation, not anticoagulated because of prior bleeding. 4. Leukocytosis. 5. Hyperlipidemia. 6. History of hypertension. RECOMMENDATION: From the cardiac standpoint, we will continue the present therapy. He will proceed with surgical intervention today and further adjustment of his medical regimen will be done accordingly. MMODL / IJN: [id number] /
--- NOTE | 2019-05-09 09:47 | PN ---
PROGRESS NOTE The patient is seen for followup for acute kidney injury. His renal function had improved with serum creatinine down to 1.1 mg/dL from 2.1 on initial admission. The patient did have a lower extremity angiogram on 05/06/2019. He is scheduled for another angiogram today. The patient is maintained on IV bicarb at 50 mL/hour. He is also complaining of shortness of breath today. Chest x-ray shows evidence of pulmonary vascular congestion. The patient has had good urine output. PHYSICAL EXAMINATION: On examination this morning, blood pressure is 106/58, heart rate 84 per minute. He is afebrile. EXAMINATION OF THE HEART: S1 and S2. EXAMINATION OF LUNGS: Bilateral breath sounds are heard. ABDOMEN: Soft, non-tender. Examination of lower extremities shows discoloration in right lower extremity, which is now wrapped as well. Some drainage is noted. PATTERN LEASE INSPECTOR exam is grossly intact. LAB: Labs show hemoglobin 8.1, sodium 136, potassium 4.1, BUN 45, serum creatinine 1.24. ASSESSMENT: 1. Acute kidney injury, prerenal and secondary to hypotension on initial admission, currently improved with serum creatinine staying 1.11 to 1.2 mg/dL. Patient will be receiving his second angiogram. He had an initial one on 05/06/2019 and he is scheduled for another angiogram today. We need to closely monitor renal function. I would avoid any further nephrotoxic agents. 2. Volume overload. I will give a dose of IV push Lasix and we will discontinue the bicarb drip about 4 hours after the procedure. 3. Right lower extremity ischemia. 4. Myeloproliferative disorder with elevated white cell count prior to admission. 5. Metabolic acidosis secondary to acute kidney injury, currently improved. PLAN: IV Lasix x1. Avoid any further nephrotoxic agents after today's angiogram. Discontinue the IV fluids about 4 hours after procedure. MMODL / IJN: [id number] /
--- NOTE | 2019-05-09 12:59 | P.PN ---
Subjective Progress Note Date: 05/09/19 Acute painful right lower extremity, severe peripheral vascular disease, status post previous fem-pop endarterectomy and bovine graft. Possible localized infection at the level of the graft with septic embolization to the right lower extremity, ischemic fourth toe on right foot This is a 79-year-old male patient with known history of extensive peripheral vascular disease with previous fem-pop arthrectomy and bovine patch insertion in addition to history of chronic atrial fibrillation was not been able to maintain on anticoagulation because of alcohol GI bleeding. The patient also known to have coronary artery disease, diastolic heart failure, hypertension and hyperli pidemia and gout. The patient came into the hospital yesterday because of an extensive right leg pain. The pain was mainly over the posterior aspect of his right callus and the patient also developed a bluish discoloration of the fourth toe. There was also some erythematous rash over the oh and over the anterior/medial thigh area where the vascular intervention was done earlier. On examination, the area is quite painful. The patient had a Doppler of the right lower x-ray that showed no evidence of any DVT. Pulses were obtained by Doppler signal in the popliteal dorsalis pedis and anterior tibialis. The patient is adequate femoral vein in the right groin area that was palpable. The patient is afebrile. The patient is hemodynamically stable. He was started on antibiotics for now. His cardiac rhythm remains in atrial fibrillation. The patient had a repeat echocardiogram today that showed severe pulmonary hypertension which has been noted on previous echocardiogram with a PA pressure estimated to be in the 90 mmHg range. He was furthermore found to have elevated uric acid level which probably is not related to this current presentation. The patient has underlying history of gout. The patient's current white count is 41.2. The patient has significant neutrophilia of 38%. The patient was started on accommodation Zosyn and vancomycin. The patient is on no pressors for now. Outpatient medications have been ordered resume. The primary cultures are negative for the past 24 hours. On today's evaluation of 72,019 the patient is being seen for a follow-up. He has a bluish/necrotic fourth toe. The erythema over the thigh still present. Erythema of the calvaria still present. The area is less tender compared to yesterday. Hemodynamically stable and the patient is currently off pressors. He is afebrile. He is covered with Zosyn. White cell count is down to 35. Repeat blood cultures of been all negative. Clinically much more alert and awake compared to yesterday. No chest pain. No significant shortness of breath. Slightly acidotic with a bicarb level of 15. This is an anion gap metabolic acidosis. Creatinine is down to 1.39 and the patient shows some improvement in renal function compared to yesterday. Cardiac rhythm is atrial fibrillation. Echocardiogram results were discussed yesterday the patient has severe pulmonary hypertension. The patient was seen by vascular surgery. Their impression is consistent with right fourth toe wound/infection with atherosclerotic disease involving lower oximetry is bilaterally. An angiogram as being planned at a later stage is no signs of improvement after conservative treatment. May need a fourth toe amputation at a later stage. On 05/06/2019 patient has been seen in follow-up on selective care unit, he is awake and alert, resting in bed, he states his right calf is still quite tender to touch, the pain in his right foot. Right groin redness has subsided, however right calf redness and pitting edema remains, right foot fourth toe is still cyanotic, bluish discoloration. Denies any shortness of breath, remains on 2 L of oxygen with a pulse ox of 92%, he is afebrile, hemodynamically patient is stable. No cough or congestion. All culture data remains negative thus far, including blood cultures and urine culture. His labs have been reviewed, showing a down trend in the white blood cell count down to 31.3, hemoglobin of 8.1, serum sodium is 137, potassium is 4.6, chloride is 112, CO2 is 16, BUN of 43, and creatinine is 1.17. Patient is on Zosyn for antibiotic coverage. ID service is following On 05/08/2019 patient seen in follow-up on the selective care unit. Right lower extremity with persistent pain, although erythema and warmth have subsided. Doppler right posttibial pulse, unable to obtain right posttibial pulse, no doppler right pedal pulse. Patient does admit to some shortness of breath, but no acute distress., is on 2 L of oxygen with pulse ox of 90%, temp is 96.4 axillary, slightly tachycardic, with a rate in the low 100s, no chest pain. Right fourth toe remains purple, dusky, right calf listers had been opened and drained, and there is demarcation with some blanching along the margins surrounding the blisters. Today's labs there is acute elevation of white blood cell count up to 68.6, hemoglobin of 8.3, serum sodium is 137, potassium is 4.7, chloride is 110, CO2 is 17, BUN is 45, creatinine is 1.12. Lactic acid was obtained showing lactic acidemia of 4.4, creatinine kinase was 85. Blood gas was obtained on FiO2 of 28%, showing pO2 of 71, pCO2 of 27, and pH of 7.36, consistent with metabolic acidosis with respiratory compensation, and hypoxemia. Patient is on antibiotics in the form of cefepime, and vancomycin, ID service is following. Chest x-ray was obtained showing pulmonary edema, and patient is on IV Lasix. Vascular surgery is following the patient, and patient is scheduled for possible amputation of the fourth toe and angiogram today. He is on aspirin and Plavix. On 05/09/2019 I'm seeing this patient for a follow-up. The patient is still the same compared to yesterday. His right lower extremities quite painful especially in the calf area. There is also a necrotic fourth toe. The skin in the posterior calf area developed a vesical and then the vesicular ruptured and is currently a skin tear related to the underlying blister. Minimal oozing is present. Minimal erythema is present. Area is quite tender. White cell count is 63. The patient is going to undergo an angiogram by vascular surgery today. Pulses only Doppler obtained in the instep pedis and posterior tibialis. Hemoglobin is at 8.1. White cell count is a 63. Chest x-ray from today shows small effusions are seen on the right compared to the left. Nevertheless the patient is having any significant shortness of breath. He was given a dose of Lasix. The lactic acid level has come down to 2.1. He remains on a combination of vancomycin and cefepime. The wound cultures presumed staph aureus. Objective - Vital Signs Vital signs: Vital Signs Temp 98.1 F 05/09/19 12:00 Pulse 110 H 05/09/19 12:00 Resp 21 05/09/19 12:00 BP 105/66 05/09/19 12:00 Pulse Ox 97 05/09/19 12:00 Intake & Output 05/08/19 05/09/19 05/09/19 18:59 06:59 18:59 Intake Total 870 1200 440 Output Total 600 525 625 Balance 270 675 -185 Weight 84 kg Intake: IV 600 950 440 0.9 KVO 40 Cefepime 2 gm In Sodium 100 100 Chloride 0.9% 100 ml @ 200 mls/hr IVPB Q12HR JOSE Rx#:[id number] Dextrose 5% in Water 1, 50 600 300 000 ml @ 50 mls/hr IV . Q23H JOSE with Sodium Bicarb (1 Meq/ml) 150 ml Rx#:[id number] Piperacillin-Tazobactam 3 100 .375 gm In Sodium Chloride 0.9% 100 ml @ 25 mls/hr IVPB Q8HR JOSE Rx# :[id number] Sodium Chloride 0.9% 1, 100 000 ml @ 50 mls/hr IV . Q20H JOSE Rx#:[id number] Sodium Ferric Gluconat- 100 Sucrose 125 mg In Sodium Chloride 0.9% 100 ml @ 100 mls/hr IVPB DAILY [facility] Rx#:[id number] Vancomycin 1,500 mg In 250 250 Sodium Chloride 0.9% 250 ml @ 125 mls/hr IVPB Q16H JOSE Rx#:[id number] Oral 270 250 Output: Urine 600 525 625 Other: Voiding Method Urinal Urinal Urinal # Voids 0 1 0 - Exam GENERAL EXAM: Alert, pleasant, 79-year-old white male, on 2 L of oxygen, comfortable in no apparent distress. HEAD: Normocephalic/atraumatic. EYES: Normal reaction of pupils, equal size. Conjunctiva pink, sclera white. NOSE: Clear with pink turbinates. THROAT: No erythema or exudates. NECK: No masses, no JVD, no thyroid enlargement, no adenopathy. CHEST: No chest wall deformity. Symmetrical expansion. LUNGS: Equal air entry with some scattere wheezes CVS: Regular rate and rhythm, normal S1 and S2, no gallops, no murmurs, no rubs ABDOMEN: Soft, nontender. No hepatosplenomegaly, normal bowel sounds, no guarding or rigidity. EXTREMITIES: No clubbing, no cyanosis, 2+ pulses and upper and lower extremities. There is localized edema and erythema in the right calf, and anterior oh, previous area of erythema in the right groin has subsided, and has actually resolved, the fourth digit on the right foot is dark blue/purple discoloration with surrounding erythema extending to its. No open wounds or sores. There are open blisters on the back of her right calf with surrounding bluish and whitish discoloration MUSCULOSKELETAL: Muscle strength and tone normal. SPINE: No scoliosis or deformity SKIN: No rashes CENTRAL NERVOUS SYSTEM: Alert and oriented -3. No focal deficits, tone is normal in all 4 extremities. PSYCHIATRIC: Alert and oriented -3. Appropriate affect. Intact judgment and insight. - Labs CBC & Chem 7: 05/09/19 05:32 05/09/19 05:32 Labs: Abnormal Lab Results - Last 24 Hours (Table) 05/08/19 05/08/19 05/08/19 Range/Units 13:22 15:22 15:38 WBC (3.8-10.6) k/uL RBC (4.30-5.90) m/uL Hgb (13.0-17.5) gm/dL Hct (39.0-53.0) % MCHC (31.0-37.0) g/dL RDW (11.5-15.5) % Plt Count (150-450) k/uL Neutrophils # (Manual) (1.3-7.7) k/uL Eosinophils # (Manual) (0-0.7) k/uL Metamyelocytes # (Man) (0) k/uL Myelocytes # (Manual) (0) k/uL Nucleated RBCs (0-0) /100 WBC PT (9.0-12.0) sec INR (<1.2) APTT (22.0-30.0) sec ABG pCO2 27 L (35-45) mmHg ABG pO2 71 L (83-108) mmHg ABG HCO3 15 L (21-25) mmol/L ABG Total CO2 16 L (19-24) mmol/L ABG O2 Saturation 92.7 L (94-97) % Sodium (137-145) mmol/L Carbon Dioxide (22-30) mmol/L BUN (9-20) mg/dL Glucose (74-99) mg/dL POC Glucose (mg/dL) 176 H (75-99) mg/dL Plasma Lactic Acid Moe 2.1 H* (0.7-2.0) mmol/L Calcium (8.4-10.2) mg/dL Ionized Calcium Jyothi (4.5-5.3) mg/dL 05/09/19 05/09/19 05/09/19 Range/Units 05:32 05:32 05:32 WBC 63.3 H* (3.8-10.6) k/uL RBC 3.14 L (4.30-5.90) m/uL Hgb 8.1 L (13.0-17.5) gm/dL Hct 28.1 L (39.0-53.0) % MCHC 28.9 L (31.0-37.0) g/dL RDW 26.0 H (11.5-15.5) % Plt Count 463 H (150-450) k/uL Neutrophils # (Manual) 50.60 H (1.3-7.7) k/uL Eosinophils # (Manual) 2.53 H (0-0.7) k/uL Metamyelocytes # (Man) 5.06 H (0) k/uL Myelocytes # (Manual) 2.53 H (0) k/uL Nucleated RBCs 11 H (0-0) /100 WBC PT 14.6 H (9.0-12.0) sec INR 1.4 H (<1.2) APTT 35.1 H (22.0-30.0) sec ABG pCO2 (35-45) mmHg ABG pO2 (83-108) mmHg ABG HCO3 (21-25) mmol/L ABG Total CO2 (19-24) mmol/L ABG O2 Saturation (94-97) % Sodium 136 L (137-145) mmol/L Carbon Dioxide 20 L (22-30) mmol/L BUN 45 H (9-20) mg/dL Glucose 130 H (74-99) mg/dL POC Glucose (mg/dL) (75-99) mg/dL Plasma Lactic Acid Moe (0.7-2.0) mmol/L Calcium 6.4 L* (8.4-10.2) mg/dL Ionized Calcium Jyothi (4.5-5.3) mg/dL 05/09/19 Range/Units 07:12 WBC (3.8-10.6) k/uL RBC (4.30-5.90) m/uL Hgb (13.0-17.5) gm/dL Hct (39.0-53.0) % MCHC (31.0-37.0) g/dL RDW (11.5-15.5) % Plt Count (150-450) k/uL Neutrophils # (Manual) (1.3-7.7) k/uL Eosinophils # (Manual) (0-0.7) k/uL Metamyelocytes # (Man) (0) k/uL Myelocytes # (Manual) (0) k/uL Nucleated RBCs (0-0) /100 WBC PT (9.0-12.0) sec INR (<1.2) APTT (22.0-30.0) sec ABG pCO2 (35-45) mmHg ABG pO2 (83-108) mmHg ABG HCO3 (21-25) mmol/L ABG Total CO2 (19-24) mmol/L ABG O2 Saturation (94-97) % Sodium (137-145) mmol/L Carbon Dioxide (22-30) mmol/L BUN (9-20) mg/dL Glucose (74-99) mg/dL POC Glucose (mg/dL) (75-99) mg/dL Plasma Lactic Acid Moe (0.7-2.0) mmol/L Calcium (8.4-10.2) mg/dL Ionized Calcium Jyothi 4.0 L (4.5-5.3) mg/dL Microbiology - Last 24 Hours (Table) 05/08/19 13:20 Gram Stain - Preliminary Foot - Right Wound Culture - Preliminary Presumptive Staph aureus 05/03/19 13:48 Blood Culture - Preliminary Blood No Growth after 120 hours Assessment and Plan Plan: 1 acute painful right lower extremity in a patient with severe peripheral vascular disease and previous fem-pop endarterectomy and bovine graft. Consider localized infection at the level of the graft with septic embolization to the right lower extremity as the patient has bluish discoloration of the fourth toe in addition to erythema along his medial thigh and calf which is quite painful. Dopplers signals are obtained in the dorsalis pedis and posterior tibialis and popliteal area. Over the past few days, the condition is been essentially unchanged. The patient continues to have ischemic changes in the right foot. The right fourth toe is necrotic. The patient developed blisters and vesicles in the posterior calf which ultimately ruptured and currently has some sloughing of the skin. The leg is painful. The patient has developed leukocytosis. Hemodynamically stabl e. Currently on a combination of cefepime and vancomycin. Vascular surgery is on the case and the patient will be taken to the pathology laboratory director for further angiographic analysis. 2 acute leukocytosis, worsening 3 Non benign gap metabolic acidosis 4 lactic acidemia, likely related to ischemia of the right lower extremity 5 sepsis, to be considered secondary to above 6 coronary artery disease with previous stenting of the RCA 7 chronic atrial fibrillation 8 gout 9 history of hypertension 10 history of right-sided heart failure with severe cor pulmonale 11 history of previous MRSA/gram-negative Enterobacter infection 12 previous history of occult GI bleeding 13 chronic anemia 14 hyperlipidemia 15 BPH 16 history of myeloproliferative disorder Plan Continue same antibiotic coverage. Angiogram today. The Prednisone to 10 Mg and This Was Given to Him Approximately 10 Days Ago As Part of His Burst Taper for COPD Exacerbation. Hemodynamically Stable. Keep the Patient ICU. Keep the Patient Nothing by Mouth Pending Angiogram and Vascular Intervention
--- NOTE | 2019-05-09 14:09 | P.PN ---
Subjective Progress Note Date: 05/09/19 Principal diagnosis: Right toe necrosis Patient was seen and examined. No acute events overnight. Patient reports a slight worsening of his breathing. He denies any chest pain or palpitations. No nausea or vomiting. No fever or chills. States that his right lower extremity pain is well-controlled. Discussed with RN, able to Doppler pulses bilaterally in both feet. Objective - Vital Signs Vital signs: Vital Signs Temp 98.1 F 05/09/19 12:00 Pulse 90 05/09/19 13:00 Resp 21 05/09/19 13:00 BP 105/69 05/09/19 13:00 Pulse Ox 96 05/09/19 13:00 Intake & Output 05/08/19 05/09/19 05/09/19 18:59 06:59 18:59 Intake Total 870 1200 500 Output Total 600 525 625 Balance 270 675 -125 Weight 84 kg Intake: IV 600 950 500 0.9 KVO 50 Cefepime 2 gm In Sodium 100 100 Chloride 0.9% 100 ml @ 200 mls/hr IVPB Q12HR [facility] Rx#:[id number] Dextrose 5% in Water 1, 50 600 350 000 ml @ 50 mls/hr IV . Q23H [facility] with Sodium Bicarb (1 Meq/ml) 150 ml Rx#:[id number] Piperacillin-Tazobactam 3 100 .375 gm In Sodium Chloride 0.9% 100 ml @ 25 mls/hr IVPB Q8HR [facility] Rx# :[id number] Sodium Chloride 0.9% 1, 100 000 ml @ 50 mls/hr IV . Q20H [facility] Rx#:[id number] Sodium Ferric Gluconat- 100 Sucrose 125 mg In Sodium Chloride 0.9% 100 ml @ 100 mls/hr IVPB DAILY [facility] Rx#:[id number] Vancomycin 1,500 mg In 250 250 Sodium Chloride 0.9% 250 ml @ 125 mls/hr IVPB Q16H [facility] Rx#:[id number] Oral 270 250 Output: Urine 600 525 625 Other: Voiding Method Urinal Urinal Urinal # Voids 0 1 0 - Exam General: [non toxic], [no distress], [appears at stated age] Derm: [warm], [dry] Head: [atraumatic], [normocephalic], [symmetric] Eyes: [EOMI], [no lid lag], [anicteric sclera] Mouth: [no lip lesion], [mucus membranes moist] Cardiovascular: [S1S2 reg], [irregularly irregular], [able to Doppler DP her PT pulse in right lower extremity per RN] Lungs: [decreased breath sounds bilateral], [no rhonchi, no rales] , [no acce ssory muscle use] Abdominal: [soft], [ nontender to palpation], [no guarding], [no appreciable organomegaly] Ext: [no gross muscle atrophy], [ lower extremity edema], [no contractures] Neuro: [right fourth toe purple discoloration with erythema that extends to the mid oh and inner thigh, foot wrapped with dressings clean dry and intact] Psych: [Alert], [oriented], [appropriate affect] - Labs CBC & Chem 7: 05/09/19 05:32 05/09/19 05:32 Labs: Abnormal Lab Results - Last 24 Hours (Table) 05/08/19 05/08/19 05/08/19 Range/Units 13:22 15:22 15:38 WBC (3.8-10.6) k/uL RBC (4.30-5.90) m/uL Hgb (13.0-17.5) gm/dL Hct (39.0-53.0) % MCHC (31.0-37.0) g/dL RDW (11.5-15.5) % Plt Count (150-450) k/uL Neutrophils # (Manual) (1.3-7.7) k/uL Eosinophils # (Manual) (0-0.7) k/uL Metamyelocytes # (Man) (0) k/uL Myelocytes # (Manual) (0) k/uL Nucleated RBCs (0-0) /100 WBC PT (9.0-12.0) sec INR (<1.2) APTT (22.0-30.0) sec ABG pCO2 27 L (35-45) mmHg ABG pO2 71 L (83-108) mmHg ABG HCO3 15 L (21-25) mmol/L ABG Total CO2 16 L (19-24) mmol/L ABG O2 Saturation 92.7 L (94-97) % Sodium (137-145) mmol/L Carbon Dioxide (22-30) mmol/L BUN (9-20) mg/dL Glucose (74-99) mg/dL POC Glucose (mg/dL) 176 H (75-99) mg/dL Plasma Lactic Acid Moe 2.1 H* (0.7-2.0) mmol/L Calcium (8.4-10.2) mg/dL Ionized Calcium Jyothi (4.5-5.3) mg/dL 05/09/19 05/09/19 05/09/19 Range/Units 05:32 05:32 05:32 WBC 63.3 H* (3.8-10.6) k/uL RBC 3.14 L (4.30-5.90) m/uL Hgb 8.1 L (13.0-17.5) gm/dL Hct 28.1 L (39.0-53.0) % MCHC 28.9 L (31.0-37.0) g/dL RDW 26.0 H (11.5-15.5) % Plt Count 463 H (150-450) k/uL Neutrophils # (Manual) 50.60 H (1.3-7.7) k/uL Eosinophils # (Manual) 2.53 H (0-0.7) k/uL Metamyelocytes # (Man) 5.06 H (0) k/uL Myelocytes # (Manual) 2.53 H (0) k/uL Nucleated RBCs 11 H (0-0) /100 WBC PT 14.6 H (9.0-12.0) sec INR 1.4 H (<1.2) APTT 35.1 H (22.0-30.0) sec ABG pCO2 (35-45) mmHg ABG pO2 (83-108) mmHg ABG HCO3 (21-25) mmol/L ABG Total CO2 (19-24) mmol/L ABG O2 Saturation (94-97) % Sodium 136 L (137-145) mmol/L Carbon Dioxide 20 L (22-30) mmol/L BUN 45 H (9-20) mg/dL Glucose 130 H (74-99) mg/dL POC Glucose (mg/dL) (75-99) mg/dL Plasma Lactic Acid Moe (0.7-2.0) mmol/L Calcium 6.4 L* (8.4-10.2) mg/dL Ionized Calcium Jyothi (4.5-5.3) mg/dL 05/09/19 Range/Units 07:12 WBC (3.8-10.6) k/uL RBC (4.30-5.90) m/uL Hgb (13.0-17.5) gm/dL Hct (39.0-53.0) % MCHC (31.0-37.0) g/dL RDW (11.5-15.5) % Plt Count (150-450) k/uL Neutrophils # (Manual) (1.3-7.7) k/uL Eosinophils # (Manual) (0-0.7) k/uL Metamyelocytes # (Man) (0) k/uL Myelocytes # (Manual) (0) k/uL Nucleated RBCs (0-0) /100 WBC PT (9.0-12.0) sec INR (<1.2) APTT (22.0-30.0) sec ABG pCO2 (35-45) mmHg ABG pO2 (83-108) mmHg ABG HCO3 (21-25) mmol/L ABG Total CO2 (19-24) mmol/L ABG O2 Saturation (94-97) % Sodium (137-145) mmol/L Carbon Dioxide (22-30) mmol/L BUN (9-20) mg/dL Glucose (74-99) mg/dL POC Glucose (mg/dL) (75-99) mg/dL Plasma Lactic Acid Moe (0.7-2.0) mmol/L Calcium (8.4-10.2) mg/dL Ionized Calcium Jyothi 4.0 L (4.5-5.3) mg/dL Microbiology - Last 24 Hours (Table) 05/08/19 13:20 Gram Stain - Preliminary Foot - Right Wound Culture - Preliminary Presumptive Staph aureus 05/03/19 13:48 Blood Culture - Preliminary Blood No Growth after 120 hours Assessment and Plan Assessment: Assessment and Plan Right 4th toe discoloration, possibly related to thromboembolic disease Sepsis, possibly related to right lower extremity cellulitis Lactic acidosis Oral thrush Acute on chronic systolic CHF exacerbation Hypocalcemia Acute kidney injury with metabolic acidosis Myeloproliferative disorder with leukocytosis CAD with recent RCA stent Atrial flutter Gout Patient with history of right lower extremity ischemia with common femoral severe occlusive disease status post right common femoral artery endarterectomy in March 2018. Unable to Doppler DP or PT pulse and right foot today. CTA aorta with runoff shows diffuse atheromatous changes with occlusion of the proximal right posterior tibial artery. Plans: Pain control with Tylenol or morphine as needed. Case was discussed with Dr. Leggett and Dr. Cline, plans for possible amputation of the fourth toe and angiogram today. Neurochecks and right lower extremity. Continue aspirin and Plavix. Patient with increased white count of 68.6 from 31.3 yesterday, hypothermic to 96.4, tachycardic to 104 with lactic acid elevated at 4.4. Likely related to r ight lower extremity cellulitis. Urine culture negative. Blood culture 05/03 negative at 120 hours. Wound culture should S. aureus. Plans: Currently off pressors. Continue normal saline at 50 mL per hour (decreased from 120 cc/h). Tylenol as needed for fever. Patient restarted on vancomycin and cefepime, discussed with Dr. Joseph. Follow blood culture, wound culture. Follow infectious disease consult. Lactic acid 4.4-2.1. Likely secondary to ischemia of the right foot. Plans: Continue IV antibiotics as above. Follow vascular surgery plans as above. Repeat lactic acid. As seen on physical exam. Plans: Nystatin swish and swallow. Chest x-ray with concerns of pulmonary edema secondary to CHF exacerbation. Plans: Lasix discontinued by Pulmonology yesterday. Hold spironolactone. Continue metoprolol 12.5 mg by mouth twice a day. Plans to reintroduce when BP improved. Strict intake and output take. Daily weight. We'll be cautious as patient is being hydrated with IVF. Follow cardiology consultation. Calcium 6.2-6.5 x 2, 6.4. Low vitamin D of 15.8. Plans: Daily CMP. Start calcium carbonate 500 mg by mouth twice a day. Start vitamin D 50,000 units weekly. Creatinine from 2.12-1.78-1.39-within normal limits. HCO3 21-89-35-15-17-20. Likely secondary to diuresis. Renal ultrasound shows abdominal ascites, no hydronephrosis or nephrolithiasis. Plans: Daily BMP. Avoid nephrotoxins. Follow nephrology consultation. Continue sodium bicarb by mouth. WBC count 35.6-41.2-35-31.3-68.6-63.3, hemoglobin 8.5-8.8-8.0-8.1-8.3-8.1. Leukocytosis likely stress-induced. Gets weekly Procrit injections at Dr. Miller's office. Plan: Daily CBC. Procrit injections weekly. Start IV iron as per nephrology recommendations. Plan: Continue aspirin, Plavix and Lipitor. Metoprolol resumed. Plan: No anticoagulation due to recurrent GI bleeds. Continue amiodarone. Hold beta quan due to hypotension. Telemetry monitoring. Follow cardiology consult. Uric acid elevated at 16.9. Plans: Prednisone decreased from 20 mg to 10 mg daily. Restart Allopurinol. Pain control with Tylenol or morphine. Follow PT recommendations. Patient admitted for possible sepsis due to right lower extremity cellulitis, ID on board. Cardiology on board for CHF exacerbation. There are some concerns for thromboembolic disease of the right lower extremity, vascular surgery was consulted, plans for possible OR today. Prognosis is very guarded.
[2019-05-09] MEDS: DEXTROSE 5% IN WATER 1,000 ML with SODIUM BICARB (1 MEQ/ML) 150 ML IV SCH (15:58)
[2019-05-09] MEDS ORDERED: ROPIVACAINE 5 MG/ML 30 ML VIAL ONE (17:41)
[2019-05-09] MEDS ORDERED: PROPOFOL 10 MG/ML 20 ML VIAL IV ONE (17:41)
[2019-05-09] MEDS ORDERED: MIDAZOLAM 2 MG/2 ML VIAL ONE (17:41)
[2019-05-09] MEDS ORDERED: LIDOCAINE 2%-EPI 1:100,000 20 ML VIAL ONE (17:41)
--- NOTE | 2019-05-09 17:41 | P.ANPRN ---
Procedure Note - Anesthesia - Nerve Block Performed Right Popliteal Single Time Out Performed: Yes Date of Procedure: 05/09/19 Procedure Start Time: 17:30 Procedure Stop Time: 17:40 Location of Patient Procedure: PreOp Indication: Acute Post-Operative Pain, Dx/Pain Location (Right foot pain), Requested by physician Sedation Type: Sedate with meaningful contact maintained Preparation: Sterile Prep Position: Supine Catheter: None Needle Types: On-Q Needle Gauge: 21 Technique: Ultrasound Injectate: Other (see comment) (10ml 0.5% Ropivacaine + 10ml 2% lidocaine with 1:100,000 epinephrine) Blood Aspirated: No Pain Paresthesia on Injection Noted: No Resistance on Injection: Normal Events: Uneventful and Well Tolerated
--- NOTE | 2019-05-09 17:42 | P.ANPRN ---
Procedure Note - Anesthesia - Nerve Block Performed Right Adductor Canal Single Time Out Performed: Yes Date of Procedure: 05/09/19 Procedure Start Time: 17:30 Procedure Stop Time: 17:40 Location of Patient Procedure: PreOp Indication: Acute Post-Operative Pain, Dx/Pain Location (Right Foot Pain), Requested by physician Sedation Type: Sedate with meaningful contact maintained Preparation: Sterile Prep Position: Supine Catheter: None Needle Types: On-Q Needle Gauge: 21 Technique: Ultrasound Injectate: Other (see comment) (10ml 0.5% Ropivacaine + 10ml 2% lidocaine with 1:100,000 epinephrine) Blood Aspirated: No Pain Paresthesia on Injection Noted: No Resistance on Injection: Normal Events: Uneventful and Well Tolerated
[2019-05-09] MEDS ORDERED: SODIUM CHLORIDE 0.9% 500 ML 500 ML IV ONE (17:44)
--- NOTE | 2019-05-09 18:32 | P.OP ---
Description of Procedure: SURGEON: Terra Leggett D.O. PREOPERATIVE DIAGNOSIS: Right fourth toe gangrene, right medial calf wound POSTOPERATIVE DIAGNOSIS: Same OPERATION: Right fourth toe amputation, sharp incisional debridement of right medial calf wound. ANESTHESIA: Regional block with monitored sedation per anesthesia ESTIMATED BLOOD LOSS: 10 mL SPECIMENS REMOVED: Right fourth toe, culture right medial calf wound COMPLICATIONS: None OPERATIVE FINDINGS: Patient is a 79-year-old male with significant peripheral arterial disease who was initially admitted to the hospital for CHF exacerbation and subsequently hypotension after overdiuresis. He did develop a wound on his right fourth toe initially antibiotics are being used. He began having increasing white count although afebrile. He had a skin blister on the right posterior leg which did spontaneously drain. A computed tomography scan was performed revealing no true fluid collections or areas of abscess. With his worsening leukocytosis and increasing pain and was decided to bring him to the operating room for surgical exploration and irrigation of his fourth toe of the right foot. Risks and benefits were discussed with the patient is seemingly aware and in agreement. He was aware that this could have issues with nonhealing given poor blood flow DESCRIPTION OF PROCEDURE: This patient was brought to the operating room after appropriate regional anesthesia block and preoperative area, he was given IV sedation. The operative foot was prepped and draped in sterile manner. An incision was made at the base of the fourth toe deep into skin and fascia on plantar and dorsal aspect until we reached the head of the metatarsal bone. [This patient had osteomyelitis of the right fourth toe. It was pathologically fractured. The head of the metatarsal was from the fifth toe and had osteomyelitis of the head of the metatarsal bone. The tendons were divided in plantar and dorsal aspects. The fourth toe was removed. There was decent blood flow at the area of the incision, more than expected given the known poor peripheral arterial disease. The base of the wound looked clean, and the wound was copiously irrigated with saline. Attention was then turned to the medial calf a sharp incision was made over an area of mildly denuded skin. There was no evidence of tracking or tunneling from this. The tissues appeared edematous which is consistent with his lower extremity swelling. No evidence of abscess or purulent drainage. There is no evidence of necrotizing fasciitis. No crepitus. This area was cultured. The resultant wound measured 12 cm. Both areas were copiously irrigated with antibiotic saline. Wet-to-dry dressings were placed in each area. Kerlix rolls placed. The patient was awakened from surgery and transferred to PACU in stable condition having tolerated this procedure well.
--- NOTE | 2019-05-09 19:23 | PN ---
PROGRESS NOTE DATE OF SERVICE: 05/09/2019. REASON FOR FOLLOWUP: Right fourth toe gangrenous cellulitis. INTERVAL HISTORY: The patient has been transferred to the ICU. The patient is currently breathing comfortably. Denies having any chest pain or any cough. Pain to the right 4th toe as leg is currently controlled. No nausea, vomiting, abdominal pain, or any diarrhea. PHYSICAL EXAMINATION: Blood pressure 139/57 with a pulse of 96, temperature 98. He is 97% on 2 L nasal cannula. General description is an elderly male lying in bed in no distress. Respiratory system: Unlabored breathing. Clear to auscultation anteriorly. Heart S1, S2. Regular rate and rhythm. Abdomen is soft. No tenderness. Right fourth toe is currently necrotic with some cellulitis. Minimal drainage. LABS: Hemoglobin is 8.8, white count 63.3 with a BUN of 45, creatinine 1.24. Lactic acid 2.1. The right fourth toe culture showing presumptive Staph aureus. Culture has been negative. DIAGNOSTIC IMPRESSION AND PLAN: Patient with right fourth toe gangrene from cellulitis. Culture now showing Staph aureus. Sensitivities pending. Patient is currently covered with cefepime and vancomycin to continue. Await possible surgical intervention and amputation of his toe by vascular surgery. Local care to the right posterior leg wound with necrosis and Aquacel silver dressing and Kerlix. No need for any compression. Continue supportive care. MMODL / IJN: [id number] /
[2019-05-09] MEDS: ATORVASTATIN 40 MG TAB PO SCH (20:06)
[2019-05-09] MEDS: AMIODARONE 200 MG TAB PO SCH (20:06)
[2019-05-09] MEDS: SODIUM HYPOCHLORITE 0.25% 480 ML BOT MISCELLANE SCH (22:11)
[2019-05-09] MEDS ORDERED: FUROSEMIDE 10 MG/ML 4 ML VIAL IV STA (22:22)
[2019-05-10] MEDS: HEPARIN SODIUM,PORCINE 5,000 UNIT/ML 1 ML VIAL SQ SCH ×4 (00:48→23:12)
[2019-05-10] MEDS: MORPHINE SULFATE 2 MG/ML SYRINGE IVP PRN ×6 (05:09→23:17)
[2019-05-10 05:40] LABS: Ionized Calcium 3.9 mg/dL (4.5-5.3)
[2019-05-10 05:41] LABS: Anisocytosis Marked; HCT 25.6 % (39.0-53.0); HGB 7.6 gm/dL (13.0-17.5); Hypochromasia Marked; MCH 26.4 pg (25.0-35.0); MCHC 29.6 g/dL (31.0-37.0); MCV 89.3 fL (80.0-100.0); Macrocytosis Slight; Mean Platelet Volume 10.4; Microcytosis Slight; Platelet Count 506 k/uL (150-450); Poikilocytosis Marked; RBC 2.87 m/uL (4.30-5.90)
[2019-05-10 05:44] LABS: Potassium 3.8 mmol/L (3.5-5.1)
[2019-05-10 05:47] LABS: Calcium 6.2 mg/dL (8.4-10.2)
[2019-05-10] MEDS ORDERED: POTASSIUM CHLORIDE ER 20 MEQ TAB.ER PO SCH (06:00)
[2019-05-10 06:27] LABS: Band Neutrophils % 6 %; Lymphocytes # (M) 3.16 k/uL (1.0-4.8); Monocytes # (M) 0.63 k/uL (0-1.0); Myelocytes # (M) 2.53 k/uL (0); Myelocytes % 4 %; Neutrophils % (M) 85 %; Nucleated Red Blood Cells 7 /100 WBC (0-0); Total Cells Counted 200; WBC 63.2 k/uL (3.8-10.6)
[2019-05-10 06:28] LABS: Large Platelets Present; Polychromasia Present
--- NOTE | 2019-05-10 07:26 | XR ---
EXAMINATION TYPE: XR chest 1V portable DATE OF EXAM: 05/10/2019 COMPARISON: 05/09/2019 HISTORY: Shortness of breath TECHNIQUE: Single frontal view of the chest is obtained. FINDINGS: Heart is enlarged and is atherosclerotic change aorta. There is postsurgical changes. Diff use interstitial pattern with small bilateral effusions and basilar infiltrate. No pneumothorax. Arth ropathy of the shoulders. Vascular calcifications noted. IMPRESSION: Stable Diffuse pleural-parenchymal changes are stable correlate for CHF. Underlying pneum onia not excluded
--- NOTE | 2019-05-10 07:45 | PN ---
PROGRESS NOTE Mr. Burk is a 79-year-old male with a history of coronary artery disease status post coronary artery bypass grafting, history of chronic persistent atrial fibrillation. Presented with gangrenous toe and he has underwent amputation yesterday. He continues to have some dyspnea, but not as severe. His breathing is stable. He has some discomfort in the right foot. He denies any chest pain. His breathing is otherwise stable. He is in atrial fibrillation with controlled ventricular response. Hemodynamically, he is stable otherwise. He had no evidence of tachycardia or bradycardia at this point. He continues to be on amiodarone 200 mg daily, aspirin once a day, Lipitor 40 mg daily, Plavix 75 mg daily, metoprolol tartrate 12.5 mg twice a day. PHYSICAL EXAMINATION: Blood pressure 103/60 with a heart rate in the 90s, lungs no wheezes or rales, heart irregularly irregular S1, S2. No S3 with systolic murmur heard at the base, ejection type. No diastolic murmur. No rub. ABDOMEN: Soft, nontender. Positive bowel sounds. No organomegaly. EXTREMITIES: No edema. Dressing in place. IMPRESSION: 1. Status post amputation of the first toe. 2. Severe peripheral vascular disease. 3. History of coronary artery disease. 4. Chronic persistent atrial fibrillation, not anticoagulated because of recurrent bleeding. The patient is being evaluated to undergo Watchman procedure. 5. Hypertension. 6. Hyperlipidemia. RECOMMENDATION: I will increase the dose of his beta quan and I will stop his amiodarone. We will continue the rest of his medical regimen and depending on his progress, further recommendations will be made. MMODL / IJN: [id number] /
[2019-05-10] MEDS: IPRATROPIUM-ALBUTEROL 3 ML NEB INHALATION SCH ×4 (07:49→19:41)
[2019-05-10] MEDS: PANTOPRAZOLE 40 MG TABLET PO SCH (08:51)
[2019-05-10] MEDS: ALLOPURINOL 100 MG TAB PO SCH (08:51)
[2019-05-10] MEDS: DOCUSATE 100 MG CAP PO SCH (08:51)
[2019-05-10] MEDS: CLOPIDOGREL 75 MG TAB PO SCH (08:51)
[2019-05-10] MEDS: SODIUM BICARBONATE TAB 650 MG TAB PO SCH (08:52)
[2019-05-10] MEDS: ASPIRIN 81 MG PO SCH (08:52)
[2019-05-10] MEDS: METOPROLOL TARTRATE 25 MG TAB PO SCH ×2 (08:52→20:08)
[2019-05-10] MEDS: CEFEPIME 2 GM in SODIUM CHLORIDE 0.9% 100 ML IVPB SCH (08:52)
[2019-05-10] MEDS: CALCIUM CARBONATE 500 MG CHEWABLE PO SCH ×2 (08:52→20:07)
[2019-05-10] MEDS: SODIUM HYPOCHLORITE 0.25% 480 ML BOT MISCELLANE SCH (08:56)
[2019-05-10] MEDS: NYSTATIN 100,000 UNIT/ML SUSP 500,000 UNIT/5 ML CUP PO SCH ×4 (08:56→20:08)
[2019-05-10] MEDS ORDERED: predniSONE 10 MG TAB PO SCH (09:00)
[2019-05-10] MEDS ORDERED: DARBEPOETIN ALFA 100MCG/0.5ML SYRINGE IV SCH (09:00)
[2019-05-10] MEDS ORDERED: FUROSEMIDE 10 MG/ML 4 ML VIAL IV STA (09:19)
[2019-05-10] MEDS ORDERED: FUROSEMIDE 10 MG/ML 4 ML VIAL ONE (09:25)
[2019-05-10] MEDS ORDERED: FUROSEMIDE 10 MG/ML 2 ML VIAL IV STA (09:52)
--- NOTE | 2019-05-10 11:51 | P.PN ---
Subjective Progress Note Date: 05/10/19 Principal diagnosis: Right foot pain, shortness of breath Patient was seen and examined. No acute events overnight. Patient reports slight worsening of his breathing, given an extra dose of Lasix. States had some difficulty urinating, will check bladder scan. Underwent amputation of the right fourth toe with debridement of the right calf yesterday by vascular surgery. Reports 3-5 out of 10 in severity pain in the right lower extremity. He denies any chest pain or palpitations. No nausea or vomiting. No fever or chills. Objective - Vital Signs Vital signs: Vital Signs Temp 97.9 F 05/10/19 08:00 Pulse 108 H 05/10/19 10:00 Resp 25 H 05/10/19 10:00 BP 108/71 05/10/19 10:00 Pulse Ox 96 05/10/19 10:00 Intake & Output 05/09/19 05/10/19 05/10/19 18:59 06:59 18:59 Intake Total 730 1020 140 Output Total 735 875 150 Balance -5 145 -10 Weight 86.4 kg Intake: IV 730 770 140 0.9 KVO 80 120 40 Cefepime 2 gm In Sodium 100 Chloride 0.9% 100 ml @ 200 mls/hr IVPB Q12HR JOSE Rx#:[id number] Dextrose 5% in Water 1, 500 600 100 000 ml @ 50 mls/hr IV . Q23H JOSE with Sodium Bicarb (1 Meq/ml) 150 ml Rx#:[id number] Oral 250 Output: Urine 725 875 150 Estimated Blood Loss 10 Other: Voiding Method Urinal Urinal # Voids 0 0 0 - Exam General: [non toxic], [no distress], [appears at stated age] Derm: [warm], [dry] Head: [atraumatic], [normocephalic], [symmetric] Eyes: [EOMI], [no lid lag], [anicteric sclera] Mouth: [no lip lesion], [mucus membranes moist] Cardiovascular: [S1S2 reg], [irregularly irregular], [able to Doppler DP her PT pulse in right lower extremity per RN] Lungs: [End expiratory wheezing bilaterally], [bibasilar rales] , [no accessory muscle use] Abdominal: [soft], [ nontender to palpation], [no guarding], [no appreciable organomegaly] Ext: [no gross muscle atrophy], [ lower extremity edema], [no contractures] Neuro: [Right foot wrapped with serosanguineous fluid] Psych: [Alert], [oriented], [appropriate affect] - Labs CBC & Chem 7: 05/10/19 04:51 05/10/19 04:51 Labs: Abnormal Lab Results - Last 24 Hours (Table) 05/10/19 05/10/19 05/10/19 Range/Units 04:51 04:51 04:51 WBC 63.2 H* (3.8-10.6) k/uL RBC 2.87 L (4.30-5.90) m/uL Hgb 7.6 L (13.0-17.5) gm/dL Hct 25.6 L (39.0-53.0) % MCHC 29.6 L (31.0-37.0) g/dL RDW 26.0 H (11.5-15.5) % Plt Count 506 H (150-450) k/uL Neutrophils # (Manual) 57.50 H (1.3-7.7) k/uL Myelocytes # (Manual) 2.53 H (0) k/uL Nucleated RBCs 7 H (0-0) /100 WBC BUN 41 H (9-20) mg/dL Glucose 116 H (74-99) mg/dL Plasma Lactic Acid Moe 2.5 H* (0.7-2.0) mmol/L Calcium 6.2 L* (8.4-10.2) mg/dL Ionized Calcium Jyothi 3.9 L (4.5-5.3) mg/dL 05/10/19 Range/Units 09:49 WBC (3.8-10.6) k/uL RBC (4.30-5.90) m/uL Hgb (13.0-17.5) gm/dL Hct (39.0-53.0) % MCHC (31.0-37.0) g/dL RDW (11.5-15.5) % Plt Count (150-450) k/uL Neutrophils # (Manual) (1.3-7.7) k/uL Myelocytes # (Manual) (0) k/uL Nucleated RBCs (0-0) /100 WBC BUN (9-20) mg/dL Glucose (74-99) mg/dL Plasma Lactic Acid Moe 2.8 H* (0.7-2.0) mmol/L Calcium (8.4-10.2) mg/dL Ionized Calcium Jyothi (4.5-5.3) mg/dL Microbiology - Last 24 Hours (Table) 05/08/19 13:20 Gram Stain - Final Foot - Right Wound Culture - Final Methicillin resist S. aureus 05/09/19 18:19 Gram Stain - Preliminary Leg - Right Wound Culture - Preliminary 05/09/19 18:19 Anaerobic Culture - Preliminary Leg - Right 05/08/19 14:45 Blood Culture - Preliminary Blood No Growth after 24 hours 05/03/19 13:48 Blood Culture - Final Blood No Growth after 144 hours 05/08/19 12:01 Blood Culture - Preliminary Blood No Growth after 24 hours Assessment and Plan Assessment: Assessment and Plan Right 4th toe discoloration, possibly related to thromboembolic disease Sepsis, possibly related to right lower extremity cellulitis Lactic acidosis Oral thrush, resolved Acute on chronic systolic CHF exacerbation Hypocalcemia Acute kidney injury with metabolic acidosis, resolved Myeloproliferative disorder with leukocytosis CAD with recent RCA stent Atrial flutter Gout Patient with history of right lower extremity ischemia with common femoral je re occlusive disease status post right common femoral artery endarterectomy in March 2018. Unable to Doppler DP or PT pulse and right foot on 05/08, able to Doppler since. CTA aorta with runoff shows diffuse atheromatous changes with occlusion of the proximal right posterior tibial artery. Patient is POD 1 amputation of the R 4th toe and right debridement of R medical calf wound. Plans: Pain control with [place] or morphine as needed. Neurochecks and right lower extremity. Continue aspirin and Plavix. Follow vascular surgery recommendations. Patient with increased white count of 68.6 (05/08) from 31.3 (7/), hypothermic to 96.4, tachycardic to 104 with lactic acid elevated at 4.4. Likely related to right lower extremity cellulitis. Urine culture negative. Blood culture 05/03 negative at 144 hours. Blood cultures / negative at 24H. Wound culture should MRSA. Plans: Currently off pressors. Continue D5 NaHCO3 at 50 mL per hour (decreased from 120 cc/h). Tylenol as needed for fever. Patient restarted on vancomycin and cefepime, discussed with Dr. Joseph. Follow blood culture, wound culture. Follow infectious disease consult. Lactic acid 4.4-2.1-2.5-2.8. Likely secondary to ischemia of the right foot. Plans: Continue IV antibiotics as above. Continue IVF with NaHCO3 infusion. Repeat lactic acid. As seen on physical exam. Plans: Nystatin swish and swallow. Chest x-ray with concerns of pulmonary edema secondary to CHF exacerbation. Plans: Given one dose of Lasix today. Hold spironolactone. Continue metoprolol 25 mg by mouth twice a day. Strict intake and output take. Daily weight. We'll be cautious as patient is being hydrated with IVF. Follow cardiology consultation. DuoNeb four times a day scheduled and Solumedrol IV started by Pulmonology for possible bronchospasm. Calcium 6.2-6.5 x 2, 6.4, 6.2. Low vitamin D of 15.8. Plans: Daily CMP. Start calcium carbonate 500 mg by mouth twice a day. One time Ca gulconate 1g IV x 1 today. Start vitamin D 50,000 units weekly. Creatinine from 2.12-1.78-1.39-within normal limits. HCO3 20- 54-93-51-28-36-wgagrr normal limits. Likely secondary to diuresis. Renal ultrasound shows abdominal ascites, no hydronephrosis or nephrolithiasis. Plans: Daily BMP. Avoid nephrotoxins. Follow nephrology consultation. Continue sodium bicarb by mouth. WBC count 35.6-41.2-35-31.3-68.6-63.3. Leukocytosis likely stress-induced and steroid induced. Gets weekly Procrit injections at Dr. Miller's office. Plan: Daily CBC. Procrit injections weekly. Start IV iron as per nephrology recommendations. Plan: Continue aspirin, Plavix and Lipitor. Metoprolol resumed. Plan: No anticoagulation due to recurrent GI bleeds. Continue amiodarone. Hold beta quan due to hypotension. Telemetry monitoring. Follow cardiology consult. Uric acid elevated at 16.9. Plans: DC Prednisone and start Solumedrol. Restart Allopurinol. Pain control with Tylenol or morphine. Follow PT recommendations. Patient admitted for sepsis due to right lower extremity cellulitis, ID on board. Concerns for ischemic necrosis of the R 4th toe, underwent amputation by Vascular surgery on 05/09, cultures pending on IV Antibiotics with ID on board. Cardiology on board for CHF exacerbation. Prognosis is very guarded.
[2019-05-10] MEDS ORDERED: CALCIUM GLUCONATE 1 GM in SODIUM CHLORIDE 0.9% 100 ML IVPB ONE (12:00)
[2019-05-10] MEDS: HYDROcodone/APAP 5-325MG 1 EACH TAB PO PRN ×2 (12:06→21:15)
[2019-05-10] MEDS: methylPREDNISolone SOD SUCCI 40 MG/ML 1 ML VIAL IV SCH ×3 (12:06→23:11)
--- NOTE | 2019-05-10 12:39 | P.PN ---
Subjective Progress Note Date: 05/10/19 Acute painful right lower extremity, severe peripheral vascular disease, status post previous fem-pop endarterectomy and bovine graft. Possible localized infection at the level of the graft with septic embolization to the right lower extremity, ischemic fourth toe on right foot This is a 79-year-old male patient with known history of extensive peripheral vascular disease with previous fem-pop arthrectomy and bovine patch insertion in addition to history of chronic atrial fibrillation was not been able to maintain on anticoagulation because of alcohol GI bleeding. The patient also known to have coronary artery disease, diastolic heart failure, hypertension and hyperli pidemia and gout. The patient came into the hospital yesterday because of an extensive right leg pain. The pain was mainly over the posterior aspect of his right callus and the patient also developed a bluish discoloration of the fourth toe. There was also some erythematous rash over the oh and over the anterior/medial thigh area where the vascular intervention was done earlier. On examination, the area is quite painful. The patient had a Doppler of the right lower x-ray that showed no evidence of any DVT. Pulses were obtained by Doppler signal in the popliteal dorsalis pedis and anterior tibialis. The patient is adequate femoral vein in the right groin area that was palpable. The patient is afebrile. The patient is hemodynamically stable. He was started on antibiotics for now. His cardiac rhythm remains in atrial fibrillation. The patient had a repeat echocardiogram today that showed severe pulmonary hypertension which has been noted on previous echocardiogram with a PA pressure estimated to be in the 90 mmHg range. He was furthermore found to have elevated uric acid level which probably is not related to this current presentation. The patient has underlying history of gout. The patient's current white count is 41.2. The patient has significant neutrophilia of 38%. The patient was started on accommodation Zosyn and vancomycin. The patient is on no pressors for now. Outpatient medications have been ordered resume. The primary cultures are negative for the past 24 hours. On today's evaluation of 72,019 the patient is being seen for a follow-up. He has a bluish/necrotic fourth toe. The erythema over the thigh still present. Erythema of the calvaria still present. The area is less tender compared to yesterday. Hemodynamically stable and the patient is currently off pressors. He is afebrile. He is covered with Zosyn. White cell count is down to 35. Repeat blood cultures of been all negative. Clinically much more alert and awake compared to yesterday. No chest pain. No significant shortness of breath. Slightly acidotic with a bicarb level of 15. This is an anion gap metabolic acidosis. Creatinine is down to 1.39 and the patient shows some improvement in renal function compared to yesterday. Cardiac rhythm is atrial fibrillation. Echocardiogram results were discussed yesterday the patient has severe pulmonary hypertension. The patient was seen by vascular surgery. Their impression is consistent with right fourth toe wound/infection with atherosclerotic disease involving lower oximetry is bilaterally. An angiogram as being planned at a later stage is no signs of improvement after conservative treatment. May need a fourth toe amputation at a later stage. On 05/06/2019 patient has been seen in follow-up on selective care unit, he is awake and alert, resting in bed, he states his right calf is still quite tender to touch, the pain in his right foot. Right groin redness has subsided, however right calf redness and pitting edema remains, right foot fourth toe is still cyanotic, bluish discoloration. Denies any shortness of breath, remains on 2 L of oxygen with a pulse ox of 92%, he is afebrile, hemodynamically patient is stable. No cough or congestion. All culture data remains negative thus far, including blood cultures and urine culture. His labs have been reviewed, showing a down trend in the white blood cell count down to 31.3, hemoglobin of 8.1, serum sodium is 137, potassium is 4.6, chloride is 112, CO2 is 16, BUN of 43, and creatinine is 1.17. Patient is on Zosyn for antibiotic coverage. ID service is following On 05/08/2019 patient seen in follow-up on the selective care unit. Right lower extremity with persistent pain, although erythema and warmth have subsided. Doppler right posttibial pulse, unable to obtain right posttibial pulse, no doppler right pedal pulse. Patient does admit to some shortness of breath, but no acute distress., is on 2 L of oxygen with pulse ox of 90%, temp is 96.4 axillary, slightly tachycardic, with a rate in the low 100s, no chest pain. Right fourth toe remains purple, dusky, right calf listers had been opened and drained, and there is demarcation with some blanching along the margins surrounding the blisters. Today's labs there is acute elevation of white blood cell count up to 68.6, hemoglobin of 8.3, serum sodium is 137, potassium is 4.7, chloride is 110, CO2 is 17, BUN is 45, creatinine is 1.12. Lactic acid was obtained showing lactic acidemia of 4.4, creatinine kinase was 85. Blood gas was obtained on FiO2 of 28%, showing pO2 of 71, pCO2 of 27, and pH of 7.36, consistent with metabolic acidosis with respiratory compensation, and hypoxemia. Patient is on antibiotics in the form of cefepime, and vancomycin, ID service is following. Chest x-ray was obtained showing pulmonary edema, and patient is on IV Lasix. Vascular surgery is following the patient, and patient is scheduled for possible amputation of the fourth toe and angiogram today. He is on aspirin and Plavix. On 05/09/2019 I'm seeing this patient for a follow-up. The patient is still the same compared to yesterday. His right lower extremities quite painful especially in the calf area. There is also a necrotic fourth toe. The skin in the posterior calf area developed a vesical and then the vesicular ruptured and is currently a skin tear related to the underlying blister. Minimal oozing is present. Minimal erythema is present. Area is quite tender. White cell count is 63. The patient is going to undergo an angiogram by vascular surgery today. Pulses only Doppler obtained in the instep pedis and posterior tibialis. Hemoglobin is at 8.1. White cell count is a 63. Chest x-ray from today shows small effusions are seen on the right compared to the left. Nevertheless the patient is having any significant shortness of breath. He was given a dose of Lasix. The lactic acid level has come down to 2.1. He remains on a combination of vancomycin and cefepime. The wound cultures presumed staph aureus. On 05/10/2019, the patient is slightly more short of breath compared to yesterday. Bronchospastic and wheezy. She is chest x-ray there is some increased pulmonary vascular congestion and the patient was given a dose of Lasix 40 mg IV push. White cell count remains elevated however this could be related to his underlying mild reported disorder. The patient was taken to the operating room yesterday. The patient underwent an amputation of the right fourth toe and the patient also underwent sharp excisional debridement of the right medial calf wound. Estimated blood loss was only 10 ML's. The patient was brought back to the intensive care unit. He remains on a combination of antibiotics. He is receiving cefepime and vancomycin. The patient was felt to have adequate circulation and flow to the right lower extremity based on my conversation discussion with the vascular surgeon. Today's white cell count is at 63. Hemoglobin is at 7.6. Platelet count is at 506. The repeat lactate is at 2.8. BUN is at 41. Creatinine is at 1.0. The chest x-ray showing stable diffuse pleural parenchymal changes could be consistent with CHF. Suspect a right lower lobe pleural effusion also. Objective - Vital Signs Vital signs: Vital Signs Temp 97.8 F 05/10/19 12:00 Pulse 112 H 05/10/19 12:00 Resp 22 05/10/19 12:00 BP 106/72 05/10/19 12:00 Pulse Ox 98 05/10/19 12:00 Intake & Output 05/09/19 05/10/19 05/10/19 18:59 06:59 18:59 Intake Total 730 1020 260 Output Total 735 875 725 Balance -5 145 -465 Weight 86.4 kg Intake: IV 730 770 260 0.9 KVO 80 120 60 Calcium Gluconate 1 gm In 100 Sodium Chloride 0.9% 100 ml @ 100 mls/hr IVPB ONCE ONE Rx#:[id number] Cefepime 2 gm In Sodium 100 Chloride 0.9% 100 ml @ 200 mls/hr IVPB Q12HR JOSE Rx#:[id number] Dextrose 5% in Water 1, 500 600 100 000 ml @ 50 mls/hr IV . Q23H JOSE with Sodium Bicarb (1 Meq/ml) 150 ml Rx#:[id number] Oral 250 Output: Urine 725 875 725 Estimated Blood Loss 10 Other: Voiding Method Urinal Urinal Indwelling Catheter # Voids 0 0 0 - Exam GENERAL EXAM: Alert, pleasant, 79-year-old white male, on 2 L of oxygen, comfortable in no apparent distress. HEAD: Normocephalic/atraumatic. EYES: Normal reaction of pupils, equal size. Conjunctiva pink, sclera white. NOSE: Clear with pink turbinates. THROAT: No erythema or exudates. NECK: No masses, no JVD, no thyroid enlargement, no adenopathy. CHEST: No chest wall deformity. Symmetrical expansion. LUNGS: Equal air entry with some scattere wheezes CVS: Regular rate and rhythm, normal S1 and S2, no gallops, no murmurs, no rubs ABDOMEN: Soft, nontender. No hepatosplenomegaly, normal bowel sounds, no guarding or rigidity. EXTREMITIES: No clubbing, no cyanosis, pulses are only obtained by Doppler signal in the lower extremities and level of the dorsalis pedis and posterior tibialis. Amputation site is clean as the patient has an amputation of his fourth toe on the right. There is also dressing at the site of the debridement in the posterior calf area and the right. MUSCULOSKELETAL: Muscle strength and tone normal. SPINE: No scoliosis or deformity SKIN: No rashes CENTRAL NERVOUS SYSTEM: Alert and oriented -3. No focal deficits, tone is normal in all 4 extremities. PSYCHIATRIC: Alert and oriented -3. Appropriate affect. Intact judgment and insight. - Labs CBC & Chem 7: 05/10/19 04:51 05/10/19 04:51 Labs: Abnormal Lab Results - Last 24 Hours (Table) 05/10/19 05/10/19 05/10/19 Range/Units 04:51 04:51 04:51 WBC 63.2 H* (3.8-10.6) k/uL RBC 2.87 L (4.30-5.90) m/uL Hgb 7.6 L (13.0-17.5) gm/dL Hct 25.6 L (39.0-53.0) % MCHC 29.6 L (31.0-37.0) g/dL RDW 26.0 H (11.5-15.5) % Plt Count 506 H (150-450) k/uL Neutrophils # (Manual) 57.50 H (1.3-7.7) k/uL Myelocytes # (Manual) 2.53 H (0) k/uL Nucleated RBCs 7 H (0-0) /100 WBC BUN 41 H (9-20) mg/dL Glucose 116 H (74-99) mg/dL Plasma Lactic Acid Moe 2.5 H* (0.7-2.0) mmol/L Calcium 6.2 L* (8.4-10.2) mg/dL Ionized Calcium Jyothi 3.9 L (4.5-5.3) mg/dL 05/10/19 Range/Units 09:49 WBC (3.8-10.6) k/uL RBC (4.30-5.90) m/uL Hgb (13.0-17.5) gm/dL Hct (39.0-53.0) % MCHC (31.0-37.0) g/dL RDW (11.5-15.5) % Plt Count (150-450) k/uL Neutrophils # (Manual) (1.3-7.7) k/uL Myelocytes # (Manual) (0) k/uL Nucleated RBCs (0-0) /100 WBC BUN (9-20) mg/dL Glucose (74-99) mg/dL Plasma Lactic Acid Moe 2.8 H* (0.7-2.0) mmol/L Calcium (8.4-10.2) mg/dL Ionized Calcium Jyothi (4.5-5.3) mg/dL Microbiology - Last 24 Hours (Table) 05/08/19 13:20 Gram Stain - Final Foot - Right Wound Culture - Final Methicillin resist S. aureus 05/09/19 18:19 Gram Stain - Preliminary Leg - Right Wound Culture - Preliminary 05/09/19 18:19 Anaerobic Culture - Preliminary Leg - Right 05/08/19 14:45 Blood Culture - Preliminary Blood No Growth after 24 hours 05/03/19 13:48 Blood Culture - Final Blood No Growth after 144 hours 05/08/19 12:01 Blood Culture - Preliminary Blood No Growth after 24 hours Assessment and Plan Plan: 1 acute painful right lower extremity in a patient with severe peripheral vascular disease and previous fem-pop endarterectomy and bovine graft. Consider localized infection at the level of the graft with septic embolization to the right lower extremity as the patient has bluish discoloration of the fourth toe in addition to erythema along his medial thigh and calf which is quite painful. Dopplers signals are obtained in the dorsalis pedis and posterior tibialis and popliteal area. The patient underwent a right fourth toe amputation with sharp incision debridement of the right medial calf wound. Remain on the same antibiotic coverage. Hemodynamically stable. Vascular surgery ventilator the patient and they thought the blood flow to the right lower extremity is quite adequate at this point in time. 2 acute leukocytosis, worsening, white cell count is 63,000 and there is an underlying component of myeloproliferative disorder. 3 Non benign gap metabolic acidosis, improved and the bicarb level is up to 22 4 lactic acidemia, likely related to ischemia of the right lower extremity, current lactic acid level is at 2.6 5 sepsis, to be considered secondary to above, stable 6 coronary artery disease with previous stenting of the RCA 7 chronic atrial fibrillation 8 gout 9 history of hypertension 10 history of right-sided heart failure with severe cor pulmonale 11 history of previous MRSA/gram-negative Enterobacter infection 12 previous history of occult GI bleeding 13 chronic anemia 14 hyperlipidemia 15 BPH 16 history of myeloproliferative disorder Plan Put the patient IV Solu-Medrol 40 mg every 6 hours as the patient was found to be more bronchospastic and wheezy compared to yesterday. Discontinue the oral prednisone. Continue the same antibiotic coverage. Monitor the white cell count. Given her a dose of Lasix 40 mg IV push. No pressors for now. Continue the bicarb infusion for another 24 hours at the rate of 50 mL an hour. Keep the patient ICU for another 24 hours.
[2019-05-10] MEDS ORDERED: VANCOMYCIN TROUGH DUE 1 EACH MISC MISCELLANE ONE (13:00)
[2019-05-10] MEDS: VANCOMYCIN 1,500 MG in SODIUM CHLORIDE 0.9% 250 ML IVPB SCH (14:31)
--- NOTE | 2019-05-10 14:57 | P.PN ---
Subjective Progress Note Date: 05/10/19 patient seen and examined. Having more difficulty with breathing today. Minimal pain and right lower extremity Objective - Vital Signs Vital signs: Vital Signs Temp 97.8 F 05/10/19 12:00 Pulse 95 05/10/19 14:00 Resp 22 05/10/19 14:00 BP 107/61 05/10/19 14:00 Pulse Ox 97 05/10/19 14:00 Intake & Output 05/09/19 05/10/19 05/10/19 18:59 06:59 18:59 Intake Total 730 1020 280 Output Total 735 875 800 Balance -5 145 -520 Weight 86.4 kg Intake: IV 730 770 280 0.9 KVO 80 120 80 Calcium Gluconate 1 gm In 100 Sodium Chloride 0.9% 100 ml @ 100 mls/hr IVPB ONCE ONE Rx#:[id number] Cefepime 2 gm In Sodium 100 Chloride 0.9% 100 ml @ 200 mls/hr IVPB Q12HR JOSE Rx#:[id number] Dextrose 5% in Water 1, 500 600 100 000 ml @ 50 mls/hr IV . Q23H JOSE with Sodium Bicarb (1 Meq/ml) 150 ml Rx#:[id number] Oral 250 Output: Urine 725 875 800 Estimated Blood Loss 10 Other: Voiding Method Urinal Urinal Indwelling Catheter # Voids 0 0 0 - Exam Mild respiratory distress, on nasal cannula Abdomen soft right lower exam adjusting removed. There is continued serosanguineous drainage likely from his degree of edema in his bilateral lower extremities. The dressing at the right medial leg showed no evidence of cellulitis or purulent Drainage. the right fourth toe wound is changed. No evidence of cellulitis or purulent drainage. There are stong monophasic dp/PT on right lower extremity. There is increasing edema of his bilateral lower extremities. T No crepitus. No tenderness to palpation of the calf/anterior leg. Motor intact in the bilateral feet. No pain or complaints of left lower extremity. Adequate capillary refill. - Labs CBC & Chem 7: 05/10/19 04:51 05/10/19 04:51 Labs: Abnormal Lab Results - Last 24 Hours (Table) 05/10/19 05/10/19 05/10/19 Range/Units 04:51 04:51 04:51 WBC 63.2 H* (3.8-10.6) k/uL RBC 2.87 L (4.30-5.90) m/uL Hgb 7.6 L (13.0-17.5) gm/dL Hct 25.6 L (39.0-53.0) % MCHC 29.6 L (31.0-37.0) g/dL RDW 26.0 H (11.5-15.5) % Plt Count 506 H (150-450) k/uL Neutrophils # (Manual) 57.50 H (1.3-7.7) k/uL Myelocytes # (Manual) 2.53 H (0) k/uL Nucleated RBCs 7 H (0-0) /100 WBC BUN 41 H (9-20) mg/dL Glucose 116 H (74-99) mg/dL Plasma Lactic Acid Moe 2.5 H* (0.7-2.0) mmol/L Calcium 6.2 L* (8.4-10.2) mg/dL Ionized Calcium Jyothi 3.9 L (4.5-5.3) mg/dL 05/10/19 Range/Units 09:49 WBC (3.8-10.6) k/uL RBC (4.30-5.90) m/uL Hgb (13.0-17.5) gm/dL Hct (39.0-53.0) % MCHC (31.0-37.0) g/dL RDW (11.5-15.5) % Plt Count (150-450) k/uL Neutrophils # (Manual) (1.3-7.7) k/uL Myelocytes # (Manual) (0) k/uL Nucleated RBCs (0-0) /100 WBC BUN (9-20) mg/dL Glucose (74-99) mg/dL Plasma Lactic Acid Moe 2.8 H* (0.7-2.0) mmol/L Calcium (8.4-10.2) mg/dL Ionized Calcium Jyothi (4.5-5.3) mg/dL Microbiology - Last 24 Hours (Table) 05/08/19 12:01 Blood Culture - Preliminary Blood No Growth after 48 hours 05/08/19 13:20 Gram Stain - Final Foot - Right Wound Culture - Final Methicillin resist S. aureus 05/09/19 18:19 Gram Stain - Preliminary Leg - Right Wound Culture - Preliminary 05/09/19 18:19 Anaerobic Culture - Preliminary Leg - Right 05/08/19 14:45 Blood Culture - Preliminary Blood No Growth after 24 hours 05/03/19 13:48 Blood Culture - Final Blood No Growth after 144 hours Assessment and Plan Assessment: 1.postoperative day #1 from right fourth toe amputation and lower leg incisional debridement 2. Atherosclerotic disease of the bilateral lower extremities 3. CHF exacerbation 4. HTN 5. Atrial fibrillation 6. Hyperlipidemia 7. Coronary artery disease 8. Leukocytosis, stable Remains afebrile. Does have a history of a mye loproliferative disease and prednisone use. Will consult patient's neurodiagnostic technologist Plan: satisfactory postoperative wound evaluations. Again is unlikely that the majority of the cause of his issue be from his leg. There is adequate blood flow to the leg and does not appear to be ischemic at this time. Continue IV antibiotics and will wait for wound progression. Daily Dakin's dressing changes the next few days then transitioned to wet to dry saline dressing changes. Doubt septic emboli given there is no true graft in that right lower extremity, only a bovine pericardial patch at the femoral endarterectomy site from previous intervention. continue supportive care and ICU management
--- NOTE | 2019-05-10 15:29 | PN ---
PROGRESS NOTE The patient is seen for followup for acute kidney injury. He is currently status post I and D of his right leg blister. Patient did not have the arteriogram yesterday. He remains mildly short of breath. Bicarb drip was discontinued. PHYSICAL EXAMINATION: This morning, blood pressure was 114/77, heart rate of about 90 per minute. Patient is afebrile. Examination of the heart S1, S2. Examination of the lungs, bilateral breath sounds are heard. Abdomen is soft, nontender. Exam of lower extremities shows right lower extremity with significant wound currently wrapped. No significant edema noted in the left lower extremity. LAB: Show hemoglobin of 7.6, white cell count 63.2. Sodium 138, potassium 3.8, BUN 41, serum creatinine 1.0. Lactic acid was elevated at 2.8. ASSESSMENT: 1. Acute kidney injury secondary to hypotension, hypoperfusion currently improved. 2. Metabolic acidosis, now resolved. Continue off of IV bicarb. 3. Right leg ulcer/blisters status post I and D. 4. Myeloproliferative disorder with elevated white cell count. 5. History of previous MRSA and Enterobacter infection. PLAN: Continue off of IV bicarb, Lasix IV x1. Repeat labs in a.m. Continue to avoid nephrotoxic agents. MMODL / IJN: [id number] /
[2019-05-10] MEDS: ATORVASTATIN 40 MG TAB PO SCH (20:07)
--- NOTE | 2019-05-10 20:26 | PN ---
PROGRESS NOTE DATE OF SERVICE: 05/10/2019. REASON FOR FOLLOWUP: Right 4th toe gangrene and right leg wound with MRSA infection. INTERVAL HISTORY: The patient is currently afebrile. Patient taken to the OR yesterday, status post right 4th toe amputation and debridement of the right calf wound. The patient tolerated the procedure. Did have simple amount of bleeding after surgery, which seemed to have resolved. No chest pain, shortness of breath or cough. No abdominal pain or diarrhea. PHYSICAL EXAMINATION: Blood pressure 102/54 with a pulse of 118, temperature 97.9. He is 93% on 2-L nasal cannula. General description is an elderly male lying in bed in no distress. RESPIRATORY SYSTEM: Unlabored breathing. Clear to auscultation anteriorly. HEART: S1, S2. Regular rate and rhythm. ABDOMEN: Soft, no tenderness. Right foot leg wound is dressed up, minimal blister and drainage. LABS: Hemoglobin 7.2, white count of 3.2 with a BUN of 41, creatinine 1.0. Lactic is 2.8. Vancomycin trough is 17. Blood culture is negative. Right fourth toe wound with culture with MRSA. The cultures done yesterday are currently pending. DIAGNOSTIC IMPRESSION AND PLAN: Patient with right 4th toe gangrene with blister to the right posterior leg, status post amputation of the right 4th toe and debridement of the leg wound. Patient is currently on vancomycin, cefepime to continue while waiting for the condition to stabilize. Continue supportive care. MMODL / IJN: [id number] /
[2019-05-11] MEDS: MORPHINE SULFATE 2 MG/ML SYRINGE IVP PRN ×9 (01:03→23:12)
[2019-05-11] MEDS: HYDROcodone/APAP 5-325MG 1 EACH TAB PO PRN ×3 (02:56→20:04)
[2019-05-11 05:18] LABS: Anisocytosis Marked; HCT 26.2 % (39.0-53.0); HGB 7.3 gm/dL (13.0-17.5); Hypochromasia Marked; MCH 25.3 pg (25.0-35.0); MCHC 27.7 g/dL (31.0-37.0); MCV 91.6 fL (80.0-100.0); Macrocytosis Slight; Mean Platelet Volume 9.4; Microcytosis Slight; Platelet Count 409 k/uL (150-450); Poikilocytosis Marked; RBC 2.86 m/uL (4.30-5.90)
[2019-05-11 05:22] LABS: RDW 25.9 % (11.5-15.5)
[2019-05-11 05:28] LABS: Calcium 6.3 mg/dL (8.4-10.2)
[2019-05-11] MEDS: methylPREDNISolone SOD SUCCI 40 MG/ML 1 ML VIAL IV SCH ×4 (05:46→23:11)
[2019-05-11 06:00] LABS: Band Neutrophils % 8 %; Metamyelocytes % 8 %; Myelocytes % 2 %; Neutrophils % (M) 81 %; Nucleated Red Blood Cells 8 /100 WBC (0-0); Total Cells Counted 200
[2019-05-11] MEDS: VANCOMYCIN 1,500 MG in SODIUM CHLORIDE 0.9% 250 ML IVPB SCH ×2 (06:05→21:02)
[2019-05-11 06:06] LABS: Eosinophils # (M) 0.76 k/uL (0-0.7); Lymphocytes # (M) 0.76 k/uL (1.0-4.8); Metamyelocytes # (M) 6.04 k/uL (0); Myelocytes # (M) 1.51 k/uL (0); WBC 75.5 k/uL (3.8-10.6)
[2019-05-11 06:07] LABS: Large Platelets Present; Ovalocytes Present; Polychromasia Present
[2019-05-11] MEDS: PANTOPRAZOLE 40 MG TABLET PO SCH (06:57)
[2019-05-11] MEDS ORDERED: CALCIUM GLUCONATE 1 GM in SODIUM CHLORIDE 0.9% 100 ML IVPB ONE (07:00)
[2019-05-11 07:18] LABS: Glucose,Whole Blood 232 mg/dL (75-99)
[2019-05-11] MEDS: INSULIN ASPART (NovoLOG) 100 UNIT/ML VIAL SQ SCH ×4 (07:30→21:03)
[2019-05-11] MEDS: IPRATROPIUM-ALBUTEROL 3 ML NEB INHALATION SCH ×4 (07:50→21:13)
--- NOTE | 2019-05-11 08:48 | XR ---
EXAMINATION TYPE: XR chest 1V portable DATE OF EXAM: 05/11/2019 COMPARISON: 05/10/2019 HISTORY: Shortness of breath TECHNIQUE: Single frontal view of the chest is obtained. FINDINGS: Heart is enlarged and is atherosclerotic change aorta. There is postsurgical changes. Diff use interstitial pattern with small bilateral effusions and basilar infiltrate. No pneumothorax. Arth ropathy of the shoulders. Vascular calcifications noted. IMPRESSION: Stable Diffuse pleural-parenchymal changes are stable correlate for CHF. Underlying pneum onia not excluded
[2019-05-11] MEDS: CALCIUM CARBONATE 500 MG CHEWABLE PO SCH ×2 (09:19→21:02)
[2019-05-11] MEDS: ALLOPURINOL 100 MG TAB PO SCH (09:19)
[2019-05-11] MEDS: CEFEPIME 2 GM in SODIUM CHLORIDE 0.9% 100 ML IVPB SCH (09:19)
[2019-05-11] MEDS: NYSTATIN 100,000 UNIT/ML SUSP 500,000 UNIT/5 ML CUP PO SCH ×4 (09:19→21:04)
[2019-05-11] MEDS: ASPIRIN 81 MG PO SCH (09:19)
[2019-05-11] MEDS: DOCUSATE 100 MG CAP PO SCH (09:20)
[2019-05-11] MEDS: SODIUM HYPOCHLORITE 0.25% 480 ML BOT MISCELLANE SCH (09:20)
[2019-05-11] MEDS: CLOPIDOGREL 75 MG TAB PO SCH (09:20)
[2019-05-11] MEDS: METOPROLOL TARTRATE 25 MG TAB PO SCH ×3 (09:20→21:07)
[2019-05-11] MEDS: HEPARIN SODIUM,PORCINE 5,000 UNIT/ML 1 ML VIAL SQ SCH ×3 (09:21→23:12)
--- NOTE | 2019-05-11 10:12 | CDI ---
Documentation Clarification Form Date: 05/12/2019 09:35 am From: Trang Maxwell RN CCDS Admit Date: 05/03/2019 3:53:00 PM Patient Name: Jaqcues Burk Visit Number: [id number] Discharge Date: ATTENTION: The Clinical Documentation Specialists (CDI) and [facility] Coding Staff appreciate your assistance in clarifying documentation. Please respond to the clarification below the line at the bottom and electronically sign. The CDI & [facility] Coding staff will review the response and follow-up if needed. Please note: Queries are made part of the Legal Health Record. If you have any questions, please contact the author of this message via ITS. Dr. Terra Leggett Per your Operative note, a debridement was performed on 05/09/2019 History/Risk Factors: 79 year old male presents to ED with right posterior right foot and calf pain. . Medical history of CFH, PAD, Myeloproliferative disease, CAD. Clinical Indicators: The patient had a skin blister on the right posterior leg which did spontaneously drain. Treatment: Attention was then turned to the medial calf aA sharp incision was made over an area of denuded skin. The resultant wound measured 12cm. Five elements required for accurate and compliant documentation of a debridement: In order to capture the severity of condition and code the appropriate procedure; could you please document the following 1. Technique used (e.g., excisional, excised, cutting, etc.) Incisional 2. Instrument(s) used (e.g., scalpel, curette, etc.) scalpel 3. Nature of the tissue removed (e.g., necrotic, devitalized tissues, non- viable tissue, etc.) none 4. Appearance and size of the wound (e.g., down to fresh bleeding tissue, 7cm x 10cm, etc.) 12 cm x 0.1 x 0.2, bleeding edematous tissue 5. Depth of the debridement* (e.g., skin, subcutaneous tissue, fascia, muscle, bone, etc.) skin and subcutaneous tissue, to muscle Excisional debridement (the removal of necrotic, devitalized tissue or slough by means of cutting away of tissue) Non-excisional debridement (the removal of necrotic, devitalized tissue or slough by means of flushing, brushing, or washing. (Irrigation) Other; please specify Unable to determine (Last Revision: February 2018) MTDD
--- NOTE | 2019-05-11 10:54 | P.PN ---
Subjective Progress Note Date: 05/11/19 patient seen and examined. Again having more difficulty with breathing today. Minimal pain and right lower extremity. Complains of pain at bilateral forearms, currently undergoing ultrasound Objective - Vital Signs Vital signs: Vital Signs Temp 98.2 F 05/11/19 08:00 Pulse 129 H 05/11/19 10:00 Resp 25 H 05/11/19 10:00 BP 112/77 05/11/19 10:00 Pulse Ox 96 05/11/19 10:00 Intake & Output 05/10/19 05/11/19 05/11/19 18:59 06:59 18:59 Intake Total 580 120 Output Total 1015 450 Balance -435 -330 Weight 87.407 kg Intake: IV 580 120 0.9 KVO 130 120 Calcium Gluconate 1 gm In 100 Sodium Chloride 0.9% 100 ml @ 100 mls/hr IVPB ONCE ONE Rx#:[id number] Dextrose 5% in Water 1, 100 000 ml @ 50 mls/hr IV . Q23H JOSE with Sodium Bicarb (1 Meq/ml) 150 ml Rx#:[id number] Vancomycin 1,500 mg In 250 Sodium Chloride 0.9% 250 ml @ 125 mls/hr IVPB Q16H JOSE Rx#:[id number] Output: Urine 1015 450 Other: Voiding Method Indwelling Catheter Indwelling Catheter # Voids 0 - Exam Mild respiratory distress, on nasal cannula Abdomen soft Bilateral upper extremities with areas of ecchymosis, palpable radial pulses bilaterally. No gross edema Right lower extremity dressing is removed. The incision at the medial calf continues to show no evidence of cellulitis or purulent drainage. Significant decrease in the edema given the Jonah wrap to lower extremity. \ the right fourth toe wound is changed. No evidence of cellulitis or purulent drainage. There are stong monophasic dp/PT on right lower extremity. No crepitus. No tenderness to palpation of the calf/anterior leg. Motor intact in the bilateral feet. No pain or complaints of left lower extremity. Adequate capillary refill. - Labs CBC & Chem 7: 05/11/19 04:45 05/11/19 04:45 Labs: Abnormal Lab Results - Last 24 Hours (Table) 05/11/19 05/11/19 05/11/19 Range/Units 04:45 04:45 07:06 WBC 75.5 H* (3.8-10.6) k/uL RBC 2.86 L (4.30-5.90) m/uL Hgb 7.3 L (13.0-17.5) gm/dL Hct 26.2 L (39.0-53.0) % MCHC 27.7 L (31.0-37.0) g/dL RDW 25.9 H (11.5-15.5) % Neutrophils # (Manual) 67.10 H (1.3-7.7) k/uL Lymphocytes # (Manual) 0.76 L (1.0-4.8) k/uL Eosinophils # (Manual) 0.76 H (0-0.7) k/uL Metamyelocytes # (Man) 6.04 H (0) k/uL Myelocytes # (Manual) 1.51 H (0) k/uL Nucleated RBCs 8 H (0-0) /100 WBC Sodium 135 L (137-145) mmol/L Carbon Dioxide 20 L (22-30) mmol/L BUN 44 H (9-20) mg/dL Glucose 205 H (74-99) mg/dL POC Glucose (mg/dL) 232 H (75-99) mg/dL Calcium 6.3 L* (8.4-10.2) mg/dL Microbiology - Last 24 Hours (Table) 05/09/19 18:19 Gram Stain - Preliminary Leg - Right Wound Culture - Preliminary Presumptive MRSA 05/08/19 14:45 Blood Culture - Preliminary Blood No Growth after 48 hours 05/08/19 12:01 Blood Culture - Preliminary Blood No Growth after 48 hours 05/08/19 13:20 Gram Stain - Final Foot - Right Wound Culture - Final Methicillin resist S. aureus Assessment and Plan Assessment: 1.postoperative day #2 from right fourth toe amputation and lower leg incisional debridement 2. Atherosclerotic disease of the bilateral lower extremities 3. CHF exacerbation 4. HTN 5. Atrial fibrillation 6. Hyperlipidemia 7. Coronary artery disease 8. Leukocytosis, Remains afebrile. Does have a history of a myeloproliferative disease. Will consult patient's field staff manager Plan: satisfactory postoperative wound evaluations. Again is unlikely that the majority of the cause of his issue be from his leg. There is adequate blood flow to the leg and does not appear to be ischemic at this time. Continue IV antibiotics and will wait for wound progression. Transition dressing changes to saline wet-to-dry. Again,doubt septic emboli given there is no true graft in that right lower extremity, only a bovine pericardial patch at the femoral endarterectomy site from previous intervention. continue supportive care and ICU management. Upper extremity ultrasound pending
--- NOTE | 2019-05-11 11:50 | P.PN ---
Subjective Progress Note Date: 05/11/19 Principal diagnosis: Severe peripheral vessel occlusive disease and right fourth toe gangrene, status post amputation and debridement of right medial calf wound This is a 79-year-old male patient with known history of extensive peripheral vascular disease with previous fem-pop arthrectomy and bovine patch insertion in addition to history of chronic atrial fibrillation was not been able to maintain on anticoagulation because of alcohol GI bleeding. The patient also known to have coronary artery disease, diastolic heart failure, hypertension and hyperlipidemia and gout. The patient came into the hospital yesterday because of an extensive right leg pain. The pain was mainly over the posterior aspect of his right callus and the patient also developed a bluish discoloration of the fourth toe. There was also some erythematous rash over the oh and over the anterior/medial thigh area where the vascular intervention was done earlier. On examination, the area is quite painful. The patient had a Doppler of the right lower x-ray that showed no evidence of any DVT. Pulses were obtained by Doppler signal in the popliteal dorsalis pedis and anterior tibialis. The patient is adequate femoral vein in the right groin area that was palpable. The patient is afebrile. The patient is hemodynamically stable. He was started on antibiotics for now. His cardiac rhythm remains in atrial fibrillation. The patient had a repeat echocardiogram today that showed severe pulmonary hypertension which has been noted on previous echocardiogram with a PA pressure estimated to be in the 90 mmHg range. He was furthermore found to have elevated uric acid level which probably is not related to this current presentation. The patient has underlying history of gout. The patient's current white count is 41.2. The patient has significant neutrophilia of 38%. The patient was started on accommodation Zosyn and vancomycin. The patient is on no pressors for now. Outpatient medications have been ordered resume. The primary cultures are negative for the past 24 hours. Reevaluated today on 05/11/2019, patient has multiple complaints including pain in both forearms, pain everywhere, shortness of breath, intermittent episodes of cough and wheezing, had similar symptoms yesterday, and he responded to Lasix. Continues to have leukocytosis, he underwent fourth toe amputation the day before yesterday, and he underwent debridement of the right medial calf wound. Patient remains on antibiotics in the form of vancomycin and cefepime, continues to have significant leukocytosis with WBC count of 75.5, hemoglobin is 7.3. Electrolytes were relatively normal bicarb is a bit low at 20. BUN is 44 creatinine is 1.06. Objective - Vital Signs Vital signs: Vital Signs Temp 98.2 F 05/11/19 08:00 Pulse 129 H 05/11/19 10:00 Resp 25 H 05/11/19 10:00 BP 112/77 05/11/19 10:00 Pulse Ox 96 05/11/19 10:00 Intake & Output 05/10/19 05/11/19 05/11/19 18:59 06:59 18:59 Intake Total 580 120 Output Total 1015 450 Balance -435 -330 Weight 87.407 kg Intake: IV 580 120 0.9 KVO 130 120 Calcium Gluconate 1 gm In 100 Sodium Chloride 0.9% 100 ml @ 100 mls/hr IVPB ONCE ONE Rx#:[id number] Dextrose 5% in Water 1, 100 000 ml @ 50 mls/hr IV . Q23H JOSE with Sodium Bicarb (1 Meq/ml) 150 ml Rx#:[id number] Vancomycin 1,500 mg In 250 Sodium Chloride 0.9% 250 ml @ 125 mls/hr IVPB Q16H JOSE Rx#:[id number] Output: Urine 1015 450 Other: Voiding Method Indwelling Catheter Indwelling Catheter # Voids 0 - Exam GENERAL EXAM: 79-year-old white male, on 2 L nasal cannula, complaining of pain in the forearms. HEAD: Normocephalic/atraumatic. EYES: PERRLA, EOMI, neck tightness. NOSE: Clear with pink turbinates. THROAT: No erythema or exudates. NECK: No masses, no JVD, no thyroid enlargement, no adenopathy. CHEST: No chest wall deformity. Symmetrical expansion. LUNGS: Scattered rhonchi and wheezes bilaterally especially on forced expiratory maneuver. CVS: Regular rate and rhythm, normal S1 and S2, no gallops, no murmurs, no rubs ABDOMEN: Soft nontender no megaly no rebound no guarding, positive bowel sounds. EXTREMITIES: No clubbing, no cyanosis, pulses are only obtained by Doppler signal in the lower extremities and level of the dorsalis pedis and posterior tibialis. Amputation site is clean as the patient has an amputation of his fourth toe on the right. There is also dressing at the site of the debridement in the posterior calf area and the right. Neurologic: Alert oriented 3, no gross focal deficit. Psychiatric: Normal mood affect and normal mental status examination. - Labs CBC & Chem 7: 05/11/19 04:45 05/11/19 04:45 Labs: Abnormal Lab Results - Last 24 Hours (Table) 05/11/19 05/11/19 05/11/19 Range/Units 04:45 04:45 07:06 WBC 75.5 H* (3.8-10.6) k/uL RBC 2.86 L (4.30-5.90) m/uL Hgb 7.3 L (13.0-17.5) gm/dL Hct 26.2 L (39.0-53.0) % MCHC 27.7 L (31.0-37.0) g/dL RDW 25.9 H (11.5-15.5) % Neutrophils # (Manual) 67.10 H (1.3-7.7) k/uL Lymphocytes # (Manual) 0.76 L (1.0-4.8) k/uL Eosinophils # (Manual) 0.76 H (0-0.7) k/uL Metamyelocytes # (Man) 6.04 H (0) k/uL Myelocytes # (Manual) 1.51 H (0) k/uL Nucleated RBCs 8 H (0-0) /100 WBC Sodium 135 L (137-145) mmol/L Carbon Dioxide 20 L (22-30) mmol/L BUN 44 H (9-20) mg/dL Glucose 205 H (74-99) mg/dL POC Glucose (mg/dL) 232 H (75-99) mg/dL Calcium 6.3 L* (8.4-10.2) mg/dL Microbiology - Last 24 Hours (Table) 05/09/19 18:19 Gram Stain - Preliminary Leg - Right Wound Culture - Preliminary Presumptive MRSA 05/08/19 14:45 Blood Culture - Preliminary Blood No Growth after 48 hours 05/08/19 12:01 Blood Culture - Preliminary Blood No Growth after 48 hours 05/08/19 13:20 Gram Stain - Final Foot - Right Wound Culture - Final Methicillin resist S. aureus Assessment and Plan Assessment: Impression: 1 acute gangrene of right fourth toe, patient had severe peripheral vessel occlusive disease, previous femoral popliteal endarterectomy and bovine graft. Cultures been positive for Pseudomonas, and MRSA, patient is on cefepime and vancomycin. 2 acute leukocytosis, suspect underlying myeloproliferative disorder. In additi on to his ongoing infection of the foot and toe. 3 acute sepsis secondary to above. 4 Lactic acidosis secondary to ischemia of the right lower extremity 5 Chronic atrial fibrillation 6 Hypertension 7 Chronic anemia 8 Previous history of GI bleeding, 9 History of myeloproliferative disorder 10 Hyperlipidemia 11 History of gout 12 systolic congestive heart failure, acute. 13 acute exacerbation of COPD. Recommendation: Considering the patient is experiencing significant pain in the upper extremities, venous Doppler was ordered and it is pending, vascular surgery is aware of his symptoms, his pulses are only palpable by Doppler. In the meantime continue antibiotics, continue IV Solu-Medrol as ordered by Dr. Moreno for his symptoms of bronchospasm. Continue updrafts, continue di uretics, presently off bicarb drip, we will keep the patient in the intensive care unit. Obviously the patient is critically ill, and I wouldn't be surprised if he ends up on mechanical ventilation. Critical care time is 35 minutes. Time with Patient: Greater than 30
--- NOTE | 2019-05-11 12:43 | P.CONS ---
History of Present Illness - Reason for Consult Consult date: 05/11/19 myelofibrosis Requesting physician: Anita Moreno - Chief Complaint Infection - History of Present Illness Mr Burk is a pleasant white male, initially seen in consult at [facility] on 11/13/17. Since summer, the patient had noted decrease in appetite, progressive fatigue, weakness and weight loss. He had come in to the hospital because of progressive shortness of breath, lower extremity swelling and orthopnea.he was noted to be in congestive heart failure and was treated for the same. Labs labs showed an elevated white count in the 30,000 range, and platelets greater than 1 million. Hemoglobin was 8.5. WBC differential showed a significant left shift. Normal labs had been noted in 09/20 and the patient was supposed to be seen by us in the outpatient setting. He underwent bone marrow aspirate and biopsy in 11/15/17. He had a comparatively prolonged hospitalization for treatment for his congestive heart failure which is slow to respond. He was admitted discharged on 12/01/17. In the meantime a bone marrow pathology showed hypercellular marrow with increased trilineage hematopoiesis, and dysmegakaryopoeisis and mild reticulin fibrosis. 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 At that time molecular studies are still pending. blast percentage was not significantly increased. 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 the patient was seen for his first office visit on 12/10/17. He was started on Jakafi in late 12/22 The pt tolerated his regimen well subjectively, but had progressive drops in blood counts, requring intermittent transfusions. Dose was reduced to 15 BID in early 06/21. He was started on procrit in early 07/22. dose was increased to 40K q wk in 08/21. As the pt did not have any major response, he had a repeat bone marrow on 11/21/18. This overall showed similiar findings with no evidence of transformation. most recent blood transfusion was given on 11/11/18 It was decided to stop the Jakafi to see if that was contributing to his anemia. he started tapering off after 12/05/18, and will stop it in the 1st wk of 01/2001/14/19-Here for f/u, not feeling well, C/O of MS aches, progressive, legs hurts so much he can't sleep, can't breathe, he started taking the Jakafi again because his arms hurt and they feel better, he has activity intolerance and weakness. As above. he tapered off again, and stopped it after 01/15/[address] Miller on 01/23/19 - the patient has currently weaned himself off the jakafi. He did have to be started for a short time because of muscle and bone pains, but these have resolved. He is continuing on Procrit weekly. Actually appears to be responding better now that he is off the jakafi, with hemoglobin up to 9.6 today. There is it appears that his prior regimen was not effective and may actually have been suppressing his marrow. - Continue Procrit at this time and reassess in 3 weeks - After further discussion, he was agreeable for consultation at [facility] 02/12/19 - Jacques presented to emergency for further evaluation of dark, tarry stools concerning for GI Bleeidng. He has a known history of transfuaion dependence related to his underlying myeloproliferative disorder discussed in detail above, remains on procrit in office. He recieves Xarelto for known atrial fibrillation. He has known severe coronary artery disease and required RLE bypass with stent placement and just last week underwent right coronary artery stent placement on 02/04/19. He was seen by Dr. Pelayo last week when stent was placed. Xarelto was recently started by cardiology on Saturday, noting dark tarry stools by saturday evening. Hemoglobin was 6.8, WBC = 45.6, mg = 1.5, mild prol onation PT/INR = 1.8-32. Jacques decided to be further evaluated whrn the stools frequency and dark t arryiness worsened over the past few days. He now complains of lower abdominal cramping as well. His is symptomatically fatigue, exertional shortness of breath, and has persistent dizziness and lightheaded feeling with movement. 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 4/12/19 H He was apparently trialed on xarelto once previously and subsequently was h ospitalized for a GI bleed back in April was seen by Dr. Kwan at upper, lower, and capsule endoscopies. They did not find a definitive source of his bleeding at that point in time but he was taken off of Xarelto. He was maintained on aspirin and Plavix secondary to his known coronary and peripheral arterial disease. Jacques has since been stopped on Jakafiu as it was not showing improvement in his myelofibrosis, he appearsed to hold stable better with monitoring and procrit injections. His WBC count is up to 77K today, he has presented with Gangreneous Lower extremity digit requiring amputation. Today in follow-up he has multiple complaints. Pain everywhere, shortness of breath, Persistent cough, received lasix per primary team Lasix. He is now status post fourth toe amputation on 05/10/19, and he underwent debridement of the right medial calf wound. Infectious disease managing Vancomycin and cefepime, Review of Systems 14 point review of systems was assessed and completed all negative except for HPI Past Medical History Past Medical History: Atrial Flutter, Blood Disorder, Coronary Artery Disease (CAD), Heart Failure, GERD/Reflux, GI Bleed, Hyperlipidemia, Hypertension, Myocardial Infarction ([place]), Prostate Disorder, Vascular Disorder Additional Past Medical History / Comment(s): myeloproliferative disorder(leukocytosis and thrombocytosis), esophagitis, severe PAD, severe pulmonary hypertension , right-sided heart failure with severe pulmonary hypertension, BPH, Exercise intolerance Last Myocardial Infarction Date:: 2017 History of Any Multi-Drug Resistant Organisms: Acinetobacter (MDRO), MRSA Year Discovered:: 05/12/18-MRSA MDRO Source:: Foot-MRSA Past Surgical History: Cholecystectomy, Coronary Bypass/CABG, Heart Catheterization, Hernia Repair Additional Past Surgical History / Comment(s): Cardiac catheterization on 10/04, right femoral artery/common femoral artery endarterectomy. 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 tom inguinal hernia repair, EGD, colonoscopy. Cath with PCI to RCA 02/04/19. Cabg x3 2007. Past Anesthesia/Blood Transfusion Reactions: No Reported Reaction Past Psychological History: No Psychological Hx Reported Additional Psychological History / Comment(s): . . Smoking Status: Former smoker Past Alcohol Use History: Rare Additional Past Alcohol Use History / Comment(s): STARTED SMOKING AT AGE 16 QUIT AT AGE 40 SMOKED 1 1/2 PPD Past Drug Use History: None Reported - Past Family History Brother(s) Family Medical History: Cancer Additional Family Medical History / Comment(s): 2 with lung and 1 with prostate Mother Family Medical History: Myocardial Infarction ([place]) Father History Unknown: Yes Additional Family Medical History / Comment(s): AT AGE 83 FROM "HARDENING OF THE ARTERIES" Medications and Allergies Home Medications Medication Instructions Recorded Confirmed Type Atorvastatin [Lipitor] 40 mg PO HS 09/27/14 05/03/19 History Spironolactone [Aldactone] 25 mg PO BID 11/12/17 05/03/19 History Aspirin 81 mg PO DAILY #30 chew 04/07/18 05/03/19 Rx Clopidogrel [Plavix] 75 mg PO DAILY #30 tab 04/07/18 05/03/19 Rx Pantoprazole Sodium [Protonix] 40 mg PO DAILY 07/14/18 05/03/19 History Metoprolol Tartrate [Lopressor] 50 mg PO BID 02/12/19 05/03/19 History rOPINIRole HCL [Requip] 1 mg PO HS 02/12/19 05/03/19 History Terazosin [Hytrin] 5 mg PO HS 02/28/19 05/03/19 History Allopurinol [Zyloprim] 100 mg PO DAILY 03/31/19 05/03/19 History Epoetin [place] [Procrit] 40,000 units IV WEEKLY 04/03/19 05/03/19 History predniSONE 40 mg PO DAILY tab 04/04/19 05/03/19 Rx Amiodarone [Cordarone] 200 mg PO HS 04/20/19 05/03/19 History Furosemide [Lasix] 40 mg PO HS #30 tab 04/27/19 05/03/19 Rx Furosemide [Lasix] 60 mg PO DAILY #30 tab 04/27/19 05/03/19 Rx Naproxen [Naprosyn] 375 mg PO Q12HR #30 tablet 04/27/19 05/03/19 Rx Allergies Allergy/AdvReac Type Severity Reaction Status Date / Time No Known Allergies Allergy Verified 04/20/19 18:04 Physical Exam Vitals: Vital Signs Temp Pulse Resp BP Pulse Ox 05/11/19 10:00 129 H 25 H 112/77 96 05/11/19 09:00 122 H 27 H 117/98 96 05/11/19 08:07 110 H 05/11/19 08:00 98.2 F 96 16 111/96 99 05/11/19 07:52 96 96 05/11/19 07:00 103 H 25 H 115/78 97 05/11/19 06:00 92 23 110/66 96 05/11/19 05:00 84 19 117/71 96 05/11/19 04:00 97.6 F 80 18 117/75 97 05/11/19 03:00 97 28 H 108/64 98 05/11/19 02:00 84 27 H 111/70 96 05/11/19 01:00 81 23 103/60 97 05/11/19 00:00 98.5 F 97 19 90/59 97 05/10/19 23:00 80 15 91/70 96 05/10/19 22:14 90 21 96 05/10/19 22:00 118 H 25 H 117/46 96 05/10/19 21:00 113 H 21 105/61 96 05/10/19 20:00 98.6 F 110 H 24 103/57 96 05/10/19 19:51 98 05/10/19 19:41 92 05/10/19 19:00 108 H 19 98/65 95 05/10/19 18:00 101 H 17 85/59 95 05/10/19 17:00 118 H 18 102/64 93 L 05/10/19 16:00 97.9 F 101 H 22 87/60 97 05/10/19 15:54 107 H 05/10/19 15:46 96 05/10/19 15:44 100 05/10/19 15:00 96 17 96/61 96 05/10/19 14:00 95 22 107/61 97 05/10/19 13:00 105 H 18 98/56 95 Intake and Output 05/10/19 05/11/19 05/11/19 22:59 06:59 14:59 Intake Total 330 90 Output Total 310 355 Balance 20 -265 Intake: IV 330 90 0.9 KVO 80 90 Vancomycin 1,500 mg In 250 Sodium Chloride 0.9% 250 ml @ 125 mls/hr IVPB Q16H [facility] Rx#:[id number] Output: Urine 310 355 Other: Voiding Method Indwelling Catheter Indwelling Catheter Weight 87.407 kg General: Alert and Oriented x3, No Acute Distress Head: Normocytic, Atraumatic Neck: Supple Mouth: No Lesions, No Thrush Eyes: Non-sclerotic No Palpable cervical, supraclavicular, axillary adenopathy Heart: Irreg, Irreg Lungs: Clear to Ausculations, No Wheeze, No Rhonchi, Diminishe bilateral lower lobes, No increased respiratory effort noted Abdomen: firm, Distended, Non-Tended, Extremities: Peripheral Vascular abnormalities, evidence of surgical intervention. Neurological: No Focal Defects: No sensory or motor deficits noted Psych: Calm and cooperative Results CBC & Chem 7: 05/11/19 04:45 05/11/19 04:45 Labs: Abnormal Lab Results - Last 24 Hours (Table) 05/11/19 05/11/19 05/11/19 Range/Units 04:45 04:45 07:06 WBC 75.5 H* (3.8-10.6) k/uL RBC 2.86 L (4.30-5.90) m/uL Hgb 7.3 L (13.0-17.5) gm/dL Hct 26.2 L (39.0-53.0) % MCHC 27.7 L (31.0-37.0) g/dL RDW 25.9 H (11.5-15.5) % Neutrophils # (Manual) 67.10 H (1.3-7.7) k/uL Lymphocytes # (Manual) 0.76 L (1.0-4.8) k/uL Eosinophils # (Manual) 0.76 H (0-0.7) k/uL Metamyelocytes # (Man) 6.04 H (0) k/uL Myelocytes # (Manual) 1.51 H (0) k/uL Nucleated RBCs 8 H (0-0) /100 WBC Sodium 135 L (137-145) mmol/L Carbon Dioxide 20 L (22-30) mmol/L BUN 44 H (9-20) mg/dL Glucose 205 H (74-99) mg/dL POC Glucose (mg/dL) 232 H (75-99) mg/dL Calcium 6.3 L* (8.4-10.2) mg/dL Microbiology - Last 24 Hours (Table) 05/09/19 18:19 Gram Stain - Preliminary Leg - Right Wound Culture - Preliminary Presumptive MRSA 05/08/19 14:45 Blood Culture - Preliminary Blood No Growth after 48 hours 05/08/19 12:01 Blood Culture - Preliminary Blood No Growth after 48 hours 05/08/19 13:20 Gram Stain - Final Foot - Right Wound Culture - Final Methicillin resist S. aureus Assessment and Plan (1) Cellulitis of right lower extremity Current Visit: Yes Status: Acute Code(s): L03.115 - CELLULITIS OF RIGHT LOWER LIMB SNOMED Code(s): 554663191 (2) Atrial fibrillation Current Visit: No Status: Chronic Code(s): I48.91 - UNSPECIFIED ATRIAL FIBRILLATION SNOMED Code(s): 24209753 (3) JAK2 gene mutation Current Visit: No Status: Chronic Priority: Medium Code(s): Z15.89 - GENETIC SUSCEPTIBILITY TO OTHER DISEASE SNOMED Code(s): 56832313 (4) Myelofibrosis Current Visit: No Status: Chronic Priority: Medium Code(s): D75.81 - MYELOFIBROSIS SNOMED Code(s): 66902850 Plan: Assessment and Recommendations: Leukocytosis: - Secondary to underlying myelofibrosis as well as exacerbated by acute infection and recent surgery - Monitor white count and differential daily Macrocytic Normo anemia acute on chronic - Secondary to underlying chronic disease and inflammation exacerbated with acute inflammation and recent surgery - Monitor daily CBC and transfuse for hemoglobin less than 7 - Receives Epogen 40K weekly, as outpatient, will hold until overall situation stabilizes 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 Burk is a pleasant 79year old male patient well known to us for m onitoring of his chronic anemia and myelofibrosis. He was recently weaned off of treatment with Jakafi as his disease appeared to stop responding. His most recent recommendations from a hematological standpoint was to have evaluation at [facility] in [place], transplant center for evaluation of other options. - Currently he is seen weekly and receives Epogen (Procrit 40K) injections for his anemia of consequence of his bone marrow disorder and treatment effect from Jakafi. - He has received numerous transfusions over the years related to the above, transfusion dependant status has improved on Epogen. - Monitoring, no current treatment with Jakafi at this time Atrial Fib - Unable to anticoagulate secondary to GI bleeding - Continue on prophylactic anticoagulation - Cardiology following Severe Coronary Artery and Peripheral Vascular Disease: -Cardiology Following - Hold Xarelto at this time, May consider re-challenging anticoagualtion with another choice DOAC - Plavix and ASA Recs per Cardiology
--- NOTE | 2019-05-11 13:09 | US ---
EXAMINATION TYPE: US venous doppler duplex UE DATE OF EXAM: 05/11/2019 COMPARISON: NONE CLINICAL HISTORY: Forearm pain. Forearm pain, worse on the left. Patient on Plavix. Left arm edema. I V right hand and left antecubital fossa SIDE PERFORMED: bilateral Soft tissue edema noted. Right Arm: No evidence of DVT as visualized. superificial thrombus noted within right forearm Left Arm: No evidence of DVT as visualized. Superficial thrombus noted within left cephalic vein IMPRESSION: 1. There is bilateral superficial venous thrombosis. 2. No diagnostic evidence of deep venous thrombosis.
--- NOTE | 2019-05-11 15:54 | P.PN ---
Subjective Progress Note Date: 05/11/19 Patient seen and examined at bedside, complain of bilateral forearm pain this morning. Reports that his breathing is improved Chest x-ray stable suggesting CHF. WBCs elevated at 75.5 hemoglobin 7.3g, Patient continues on vancomycin and cefepime and continues to be afebrile. No acute events overnight Objective - Vital Signs Vital signs: Vital Signs Temp 97.4 F L 05/11/19 12:00 Pulse 102 H 05/11/19 15:00 Resp 19 05/11/19 15:00 BP 103/73 05/11/19 15:00 Pulse Ox 96 05/11/19 15:00 Intake & Output 05/10/19 05/11/19 05/11/19 18:59 06:59 18:59 Intake Total 580 120 80 Output Total 1015 450 380 Balance -435 -330 -300 Weight 87.407 kg Intake: IV 580 120 80 0.9 KVO 130 120 80 Calcium Gluconate 1 gm In 100 Sodium Chloride 0.9% 100 ml @ 100 mls/hr IVPB ONCE ONE Rx#:[id number] Dextrose 5% in Water 1, 100 000 ml @ 50 mls/hr IV . Q23H [facility] with Sodium Bicarb (1 Meq/ml) 150 ml Rx#:[id number] Vancomycin 1,500 mg In 250 Sodium Chloride 0.9% 250 ml @ 125 mls/hr IVPB Q16H [facility] Rx#:[id number] Output: Urine 1015 450 380 Other: Voiding Method Indwelling Catheter Indwelling Catheter # Voids 0 - Exam Constitutional: No acute distress, conversant, pleasant Eyes: Anicteric sclerae, moist conjunctiva, no lid-lag, PERRLA ENMT: NC/AT,Oropharynx clear, no erythema, exudates Neck:Supple, FROM, no masses, or JVD, No carotid bruits; No thyromegaly Lungs: Scattered rhonchi and wheezes bilaterally Cardiovascular: Heart regular in rate and rhythm, No murmurs, gallops, or rubs no peripheral edema Abdominal: Soft Nontender, nom distended, no guarding, no rebound or rigidity, Normoactive bowel sounds No hepatomegaly, No splenomegaly, No palpable mass No abdominal wall hernia noted Skin: Normal temperature, tone, texture, turgor, No induration No subcutaneous nodules, No rash, lesions, No ulcers Extremities: Pulses also treated with Doppler signal in bilateral upper extremities and lower extremities, amputation site is clean post amputation of the right fourth toe, noted dressing at the site of debridement in the posterior calf on the right Psychiatric: Alert and oriented to person, place and time, Appropriate affect Intact judgement Neuro: Muscles Strength 5/5 in all 4 extremities, Sensation to light touch g rossly present throughout, Cranial nerves II-XII grossly intact. No focal sensory deficits - Labs CBC & Chem 7: 05/11/19 04:45 05/11/19 04:45 Labs: Abnormal Lab Results - Last 24 Hours (Table) 05/11/19 05/11/19 05/11/19 Range/Units 04:45 04:45 07:06 WBC 75.5 H* (3.8-10.6) k/uL RBC 2.86 L (4.30-5.90) m/uL Hgb 7.3 L (13.0-17.5) gm/dL Hct 26.2 L (39.0-53.0) % MCHC 27.7 L (31.0-37.0) g/dL RDW 25.9 H (11.5-15.5) % Neutrophils # (Manual) 67.10 H (1.3-7.7) k/uL Lymphocytes # (Manual) 0.76 L (1.0-4.8) k/uL Eosinophils # (Manual) 0.76 H (0-0.7) k/uL Metamyelocytes # (Man) 6.04 H (0) k/uL Myelocytes # (Manual) 1.51 H (0) k/uL Nucleated RBCs 8 H (0-0) /100 WBC Sodium 135 L (137-145) mmol/L Carbon Dioxide 20 L (22-30) mmol/L BUN 44 H (9-20) mg/dL Glucose 205 H (74-99) mg/dL POC Glucose (mg/dL) 232 H (75-99) mg/dL Calcium 6.3 L* (8.4-10.2) mg/dL Microbiology - Last 24 Hours (Table) 05/08/19 12:01 Blood Culture - Preliminary Blood No Growth after 72 hours 05/09/19 18:19 Gram Stain - Preliminary Leg - Right Wound Culture - Preliminary Presumptive MRSA 05/08/19 14:45 Blood Culture - Preliminary Blood No Growth after 48 hours 05/08/19 13:20 Gram Stain - Final Foot - Right Wound Culture - Final Methicillin resist S. aureus Assessment and Plan Assessment: 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 severe PVD and occlusive disease Sepsis, possibly related to right lower extremity cellulitis worsening leukocytosis in the setting of infection Lactic acidosis Bilateral upper extremity pain Oral thrush, resolved Acute on chronic systolic CHF exacerbation Hypocalcemia Acute kidney injury with metabolic acidosis, resolved Myeloproliferative disorder with leukocytosis CAD with recent RCA stent Atrial flutter Gout Patient with history of right lower extremity ischemia with common femoral severe occlusive disease status post right common femoral artery endarterectomy in March 2018. Unable to Doppler DP or PT pulse and right foot on 05/08, able to Doppler since. CTA aorta with runoff shows diffuse atheromatous changes with occlusion of the proximal right posterior tibial artery. Patient is POD 2 amputation of the R 4th toe and right debridement of R medical calf wound. Plans: Pain control with [place] or morphine as needed. Neurochecks and right lower extremity. Continue aspirin and Plavix. Follow vascular surgery recommendations. Patient with increased white count of 75 (05/11) from 31.3 (05/07), , tachycardic to 104 with lactic acid elevated at 4.4. Likely related to right lower extremity cellulitis. Urine culture negative. Blood culture 05/03 negative at 144 hours. Blood cultures 05/08 negative at 24H. Wound culture should MRSA. Plans: Currently off pressors. Continue D5 NaHCO3 at 50 mL per hour (decreased from 120 cc/h). Tylenol as needed for fever. Patient continued on vancomycin and cefepime, discussed with Dr. Joseph. Follow blood culture, wound culture. Follow infectious disease consult. Agree with consultation to hematology oncology, concern for possible underlying hyperviscosity syndrome?? Lactic acid 4.4-2.1-2.5-2.8. Likely secondary to ischemia of the right foot. Plans: Continue IV antibiotics as above. Continue IVF with NaHCO3 infusion. Repeat lactic acid. We will order bilateral upper extremity venous Dopplers As seen on physical exam. Plans: Nystatin swish and swallow. Chest x-ray suggesting stable CHF. Plans: Hold Lasix today. Hold spironolactone. Continue metoprolol 25 mg by mouth twice a day. Strict intake and output take. Daily weight. We'll be cautious as patient is being hydrated with IVF. Follow cardiology consultation. DuoNeb four times a day scheduled and Solumedrol IV started by Pulmonology for possible bronchospasm. Calcium 6.2-6.5 x 2, 6.4, 6.2. Low vitamin D of 15.8. Plans: Daily CMP. Start calcium carbonate 500 mg by mouth twice a day. Repeat Ca gulconate 1g given today. Start vitamin D 50,000 units weekly. Creatinine from 2.12-1.78-1.39-within normal limits. HCO3 89-90-08-06-44-21-within normal limits. Likely secondary to diuresis. Renal ultrasound shows abdominal ascites, no hydronephrosis or nephrolithiasis. Plans: Daily BMP. Avoid nephrotoxins. Follow nephrology consultation. Continue sodium bicarb by mouth. WBC count 35.6-41.2-35-31.3-68.6-63.3. Leukocytosis likely stress-induced and steroid induced. Gets weekly Procrit injections at Dr. Miller's office. Plan: Daily CBC. Procrit injections weekly. Start IV iron as per nephrology recommendations. Plan: Continue aspirin, Plavix and Lipitor. Metoprolol resumed. Plan: No anticoagulation due to recurrent GI bleeds. Continue amiodarone. Hold beta quan due to hypotension. Telemetry monitoring. Follow cardiology consult. Uric acid elevated at 16.9. Plans: DC Prednisone and start Solumedrol. Restart Allopurinol. Pain control with Tylenol or morphine. Follow PT recommendations. Patient admitted for sepsis due to right lower extremity cellulitis, ID on junior ricky. Concerns for ischemic necrosis of the R 4th toe, underwent amputation by Vascular surgery on 05/09, cultures pending on IV Antibiotics with ID on board. Cardiology on board for CHF exacerbation. Prognosis is very guarded. (1) Cellulitis of right lower extremity Current Visit: Yes Status: Acute Code(s): L03.115 - CELLULITIS OF RIGHT LOWER LIMB SNOMED Code(s): 302706516 (2) Acute kidney injury Current Visit: Yes Status: Resolved Code(s): N17.9 - ACUTE KIDNEY FAILURE, UNSPECIFIED SNOMED Code(s): 21412428 (3) Myeloproliferative disorder Current Visit: No Status: Chronic Code(s): D47.1 - CHRONIC MYELOPROLIFERATIVE DISEASE SNOMED Code(s): 209598743 (4) Leukocytosis Current Visit: No Status: Chronic Priority: Medium Code(s): D72.829 - ELEVATED WHITE BLOOD CELL COUNT, UNSPECIFIED SNOMED Code(s): 651800131 (5) Hypotension Current Visit: Yes Status: Resolved Code(s): I95.9 - HYPOTENSION, UNSPECIFIED SNOMED Code(s): 43449789 (6) Hyperkalemia Current Visit: Yes Status: Resolved Code(s): E87.5 - HYPERKALEMIA SNOMED Code(s): 11282496 (7) Hyponatremia Current Visit: Yes Status: Resolved Code(s): E87.1 - HYPO-OSMOLALITY AND HYPONATREMIA SNOMED Code(s): 21093327 (8) Gout flare Current Visit: Yes Status: Resolved Code(s): M10.9 - GOUT, UNSPECIFIED SNOMED Code(s): 491745937
[2019-05-11 16:53] LABS: Glucose,Whole Blood 223 mg/dL (75-99)
--- NOTE | 2019-05-11 18:30 | PN ---
PROGRESS NOTE DATE OF SERVICE: 05/11/2019. REASON FOR FOLLOWUP: Right fourth toe gangrene and right leg wound with MRSA infection. INTERVAL HISTORY: The patient is currently afebrile. The patient is breathing comfortably. He is hemodynamically stable and complaining of more pain in his shoulder area, not so much in the right foot or leg area. No chest pain, shortness of breath or cough. No abdominal pain or diarrhea. PHYSICAL EXAMINATION: Blood pressure 112/77 with a pulse of 129, temperature of 98. He is 96% on room air. General description is an elderly male lying in bed in no distress. Respiratory system unlabored breathing. Clear to auscultation anteriorly. Heart S1, S2. Regular rate and rhythm. Abdomen soft, no tenderness. Right foot and leg wound is currently dressed up. No obvious drainage on the dressing. LABS: Hemoglobin 7.1, hematocrit 25.5 with a BUN of 44, creatinine 1.6. 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 Culture has been positive for MRSA. The patient currently covered with daptomycin to continue for now. Though gram-negative grown on the deep culture discontinue Cefepime . Continue supportive care. MMODL / IJN: [id number] /
--- NOTE | 2019-05-11 20:40 | P.PN ---
Subjective Patient is status post palpitation. He has a history of atrial fibrillation. His ventricular response is still rapid and he is in some pain after surgery On examination he has bilateral rhonchi with decreased breath sounds bilaterally Heart sounds are irregular no murmurs Pulse rate is elevated Blood pressure 115/64 mmHg Impression Atrial fibrillation with RVR Suggest Increase metoprolol to 25 mg 3 times a day Will follow Objective - Vital Signs Vital signs: Vital Signs Temp 98.2 F 05/11/19 16:00 Pulse 100 05/11/19 18:00 Resp 24 05/11/19 18:00 BP 106/70 05/11/19 18:00 Pulse Ox 98 05/11/19 18:00 Intake & Output 05/11/19 05/11/19 05/12/19 06:59 18:59 06:59 Intake Total 120 155 Output Total 450 430 Balance -330 -275 Weight 87.407 kg Intake: IV 120 155 0.9 KVO 120 155 Output: Urine 450 430 Other: Voiding Method Indwelling Catheter - Labs CBC & Chem 7: 05/11/19 04:45 05/11/19 04:45 Labs: Abnormal Lab Results - Last 24 Hours (Table) 05/11/19 05/11/19 05/11/19 Range/Units 04:45 04:45 07:06 WBC 75.5 H* (3.8-10.6) k/uL RBC 2.86 L (4.30-5.90) m/uL Hgb 7.3 L (13.0-17.5) gm/dL Hct 26.2 L (39.0-53.0) % MCHC 27.7 L (31.0-37.0) g/dL RDW 25.9 H (11.5-15.5) % Neutrophils # (Manual) 67.10 H (1.3-7.7) k/uL Lymphocytes # (Manual) 0.76 L (1.0-4.8) k/uL Eosinophils # (Manual) 0.76 H (0-0.7) k/uL Metamyelocytes # (Man) 6.04 H (0) k/uL Myelocytes # (Manual) 1.51 H (0) k/uL Nucleated RBCs 8 H (0-0) /100 WBC Sodium 135 L (137-145) mmol/L Carbon Dioxide 20 L (22-30) mmol/L BUN 44 H (9-20) mg/dL Glucose 205 H (74-99) mg/dL POC Glucose (mg/dL) 232 H (75-99) mg/dL Calcium 6.3 L* (8.4-10.2) mg/dL 05/11/19 05/11/19 Range/Units 16:41 18:16 WBC (3.8-10.6) k/uL RBC (4.30-5.90) m/uL Hgb (13.0-17.5) gm/dL Hct (39.0-53.0) % MCHC (31.0-37.0) g/dL RDW (11.5-15.5) % Neutrophils # (Manual) (1.3-7.7) k/uL Lymphocytes # (Manual) (1.0-4.8) k/uL Eosinophils # (Manual) (0-0.7) k/uL Metamyelocytes # (Man) (0) k/uL Myelocytes # (Manual) (0) k/uL Nucleated RBCs (0-0) /100 WBC Sodium (137-145) mmol/L Carbon Dioxide (22-30) mmol/L BUN (9-20) mg/dL Glucose (74-99) mg/dL POC Glucose (mg/dL) 223 H (75-99) mg/dL Calcium 6.5 L (8.4-10.2) mg/dL Microbiology - Last 24 Hours (Table) 05/09/19 18:19 Anaerobic Culture - Preliminary Leg - Right 05/09/19 18:19 Gram Stain - Preliminary Leg - Right Wound Culture - Final Staphylococcus aureus 05/08/19 14:45 Blood Culture - Preliminary Blood No Growth after 72 hours 05/08/19 12:01 Blood Culture - Preliminary Blood No Growth after 72 hours
[2019-05-11] MEDS: ATORVASTATIN 40 MG TAB PO SCH (21:02)
[2019-05-11 21:06] LABS: Glucose,Whole Blood 160 mg/dL (75-99)
[2019-05-12 05:39] LABS: Anisocytosis Marked; HCT 26.3 % (39.0-53.0); HGB 7.3 gm/dL (13.0-17.5); Hypochromasia Marked; MCH 25.4 pg (25.0-35.0); MCHC 27.8 g/dL (31.0-37.0); MCV 91.4 fL (80.0-100.0); Macrocytosis Slight; Mean Platelet Volume 9.6; Microcytosis Slight; Platelet Count 445 k/uL (150-450); Poikilocytosis Marked; RBC 2.88 m/uL (4.30-5.90)
[2019-05-12 05:50] LABS: Calcium 6.6 mg/dL (8.4-10.2); Potassium 5.3 mmol/L (3.5-5.1)
[2019-05-12 05:55] LABS: RDW 26.1 % (11.5-15.5)
[2019-05-12] MEDS: HYDROcodone/APAP 5-325MG 1 EACH TAB PO PRN ×3 (06:33→20:54)
[2019-05-12] MEDS: methylPREDNISolone SOD SUCCI 40 MG/ML 1 ML VIAL IV SCH ×4 (06:33→23:20)
[2019-05-12] MEDS: INSULIN ASPART (NovoLOG) 100 UNIT/ML VIAL SQ SCH ×4 (06:52→20:55)
[2019-05-12 06:57] LABS: Glucose,Whole Blood 159 mg/dL (75-99)
[2019-05-12 07:01] LABS: Band Neutrophils % 2 %; Myelocytes % 14 %; Neutrophils % (M) 81 %; Nucleated Red Blood Cells 24 /100 WBC (0-0); Total Cells Counted 200
[2019-05-12 07:02] LABS: Lymphocytes # (M) 3.21 k/uL (1.0-4.8); Myelocytes # (M) 11.23 k/uL (0); Polychromasia Present; WBC 80.2 k/uL (3.8-10.6)
[2019-05-12 07:03] LABS: Large Platelets Present; RBC Fragments Present
[2019-05-12] MEDS: IPRATROPIUM-ALBUTEROL 3 ML NEB INHALATION SCH ×4 (07:36→19:06)
[2019-05-12] MEDS: METOPROLOL TARTRATE 25 MG TAB PO SCH ×3 (08:48→20:55)
[2019-05-12] MEDS: HEPARIN SODIUM,PORCINE 5,000 UNIT/ML 1 ML VIAL SQ SCH ×3 (08:48→23:20)
[2019-05-12] MEDS: ALLOPURINOL 100 MG TAB PO SCH (08:48)
[2019-05-12] MEDS: CALCIUM CARBONATE 500 MG CHEWABLE PO SCH ×2 (08:48→20:55)
[2019-05-12] MEDS: CLOPIDOGREL 75 MG TAB PO SCH (08:48)
[2019-05-12] MEDS: DOCUSATE 100 MG CAP PO SCH (08:48)
[2019-05-12] MEDS: PANTOPRAZOLE 40 MG TABLET PO SCH (08:48)
[2019-05-12] MEDS: ASPIRIN 81 MG PO SCH (08:48)
[2019-05-12] MEDS: NYSTATIN 100,000 UNIT/ML SUSP 500,000 UNIT/5 ML CUP PO SCH ×4 (08:49→20:56)
[2019-05-12] MEDS: CEFEPIME 2 GM in SODIUM CHLORIDE 0.9% 100 ML IVPB SCH (08:49)
[2019-05-12] MEDS: MORPHINE SULFATE 2 MG/ML SYRINGE IVP PRN ×2 (08:55→12:20)
[2019-05-12] MEDS: SODIUM HYPOCHLORITE 0.25% 480 ML BOT MISCELLANE SCH (09:51)
--- NOTE | 2019-05-12 10:49 | P.PN ---
Subjective Progress Note Date: 05/12/19 Patient seen and examined at bedside, complain of left lower extremity pain behind his calf Reports that his breathing is improved Chest x-ray stable suggesting CHF. WBCs elevated up to 80 today stable hemoglobin 7.3g, Patient continues on vancomycin and cefepime yesterday, apparently had an episode of h ypothermia overnight currently on a warm blanket. Venous Dopplers of upper extremities revealing superficial venous thrombosis. Objective - Vital Signs Vital signs: Vital Signs Temp 97.4 F L 05/12/19 08:00 Pulse 100 05/12/19 10:00 Resp 24 05/12/19 10:00 BP 113/83 05/12/19 10:00 Pulse Ox 96 05/12/19 10:00 Intake & Output 05/11/19 05/12/19 05/12/19 18:59 06:59 18:59 Intake Total 155 370 380 Output Total 580 555 102 Balance -425 -185 278 Weight 86.4 kg Intake: IV 155 370 130 0.9 KVO 155 120 30 Cefepime 2 gm In Sodium 100 Chloride 0.9% 100 ml @ 200 mls/hr IVPB Q24HR JOSE Rx#:[id number] Vancomycin 1,500 mg In 250 Sodium Chloride 0.9% 250 ml @ 125 mls/hr IVPB Q16H JOSE Rx#:[id number] Oral 250 Output: Urine 580 555 102 Other: Voiding Method Indwelling Catheter Indwelling Catheter # Voids 0 - Exam Constitutional: No acute distress, conversant, pleasant Eyes: Anicteric sclerae, moist conjunctiva, no lid-lag, PERRLA ENMT: NC/AT,Oropharynx clear, no erythema, exudates Neck:Supple, FROM, no masses, or JVD, No carotid bruits; No thyromegaly Lungs: Scattered rhonchi and wheezes bilaterally Cardiovascular: Heart regular in rate and rhythm, No murmurs, gallops, or rubs no peripheral edema Abdominal: Soft Nontender, nom distended, no guarding, no rebound or rigidity, Normoactive bowel sounds No hepatomegaly, No splenomegaly, No palpable mass No abdominal wall hernia noted Skin: Normal temperature, tone, texture, turgor, No induration No subcutaneous nodules, No rash, lesions, No ulcers Extremities: Pulses also treated with Doppler signal in bilateral upper extremities and lower extremities, amputation site is clean post amputation of the right fourth toe, noted dressing at the site of debridement in the posterior calf on the right Psychiatric: Alert and oriented to person, place and time, Appropriate affect Intact judgement Neuro: Muscles Strength 5/5 in all 4 extremities, Sensation to light touch grossly present throughout, Cranial nerves II-XII grossly intact. No focal sensory deficits - Labs CBC & Chem 7: 05/12/19 04:58 05/12/19 04:58 Labs: Abnormal Lab Results - Last 24 Hours (Table) 05/11/19 05/11/19 05/11/19 Range/Units 16:41 18:16 20:54 WBC (3.8-10.6) k/uL RBC (4.30-5.90) m/uL Hgb (13.0-17.5) gm/dL Hct (39.0-53.0) % MCHC (31.0-37.0) g/dL RDW (11.5-15.5) % Neutrophils # (Manual) (1.3-7.7) k/uL Myelocytes # (Manual) (0) k/uL Nucleated RBCs (0-0) /100 WBC Sodium (137-145) mmol/L Potassium (3.5-5.1) mmol/L Carbon Dioxide (22-30) mmol/L BUN (9-20) mg/dL Creatinine (0.66-1.25) mg/dL Glucose (74-99) mg/dL POC Glucose (mg/dL) 223 H 160 H (75-99) mg/dL Calcium 6.5 L (8.4-10.2) mg/dL 05/12/19 05/12/19 05/12/19 Range/Units 04:58 04:58 06:45 WBC 80.2 H* (3.8-10.6) k/uL RBC 2.88 L (4.30-5.90) m/uL Hgb 7.3 L (13.0-17.5) gm/dL Hct 26.3 L (39.0-53.0) % MCHC 27.8 L (31.0-37.0) g/dL RDW 26.1 H (11.5-15.5) % Neutrophils # (Manual) 66.50 H (1.3-7.7) k/uL Myelocytes # (Manual) 11.23 H (0) k/uL Nucleated RBCs 24 H (0-0) /100 WBC Sodium 135 L (137-145) mmol/L Potassium 5.3 H (3.5-5.1) mmol/L Carbon Dioxide 21 L (22-30) mmol/L BUN 54 H (9-20) mg/dL Creatinine 1.43 H (0.66-1.25) mg/dL Glucose 116 H (74-99) mg/dL POC Glucose (mg/dL) 159 H (75-99) mg/dL Calcium 6.6 L (8.4-10.2) mg/dL Microbiology - Last 24 Hours (Table) 05/09/19 18:19 Anaerobic Culture - Preliminary Leg - Right 05/09/19 18:19 Gram Stain - Preliminary Leg - Right Wound Culture - Final Staphylococcus aureus 05/08/19 14:45 Blood Culture - Preliminary Blood No Growth after 72 hours 05/08/19 12:01 Blood Culture - Preliminary Blood No Growth after 72 hours Assessment and Plan Assessment: 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 severe PVD and occlusive disease Sepsis, possibly related to right lower extremity cellulitis worsening leukocytosis in the setting of infection Lactic acidosis Bilateral upper extremity pain Oral thrush, resolved Acute on chronic systolic CHF exacerbation Hypocalcemia Acute kidney injury with metabolic acidosis, resolved Myeloproliferative disorder with leukocytosis CAD with recent RCA stent Atrial flutter Gout Patient with history of right lower extremity ischemia with common femoral severe occlusive disease status post right common femoral artery endarterectomy in March 2018. Unable to Doppler DP or PT pulse and right foot on 05/08, able to Doppler since. CTA aorta with runoff shows diffuse atheromatous changes with occlusion of the proximal right posterior tibial artery. Patient is POD 3 amputation of the R 4th toe and right debridement of R medical calf wound. Plans: Pain control with [place] or morphine as needed. Neurochecks and right lower extremity. Continue aspirin and Plavix. Follow vascular surgery recommend ations. Patient with increased white count of 80 (05/12) from 31.3 (7/), , tachycardic to 104 with lactic acid elevated at 4.4. Likely related to right lower extremity cellulitis. Urine culture negative. Blood culture 05/03 negative at 144 hours. Blood cultures / negative at 24H. Wound culture should MRSA. Plans: Currently off pressors. Continue D5 NaHCO3 at 50 mL per hour (decreased from 120 cc/h). Tylenol as needed for fever. Patient continued on vancomycin and cefepime, discussed with Dr. Joseph. Follow blood culture, wound culture. Follow infectious disease consult. Agree with consultation to hematology oncology, concern for possible underlying hyperviscosity syndrome?? Lactic acid 4.4-2.1-2.5-2.8. Likely secondary to ischemia of the right foot. Plans: Continue IV antibiotics as above. Continue IVF with NaHCO3 infusion. R epeat lactic acid. We will order bilateral upper extremity venous Dopplers As seen on physical exam. Plans: Nystatin swish and swallow. Chest x-ray suggesting stable CHF. Plans: Hold Lasix today. Hold spironolactone. Continue metoprolol 25 mg by mouth TID. Strict intake and output take. Daily weight. We'll be cautious as patient is being hydrated with IVF. Follow cardiology consultation. DuoNeb four times a day scheduled and Solumedrol IV started by Pulmonology for possible bronchospasm. Calcium 6.2-6.5 x 2, 6.4, 6.2. Low vitamin D of 15.8. Plans: Daily CMP. Start calcium carbonate 500 mg by mouth twice a day. Repeat Ca gulconate 1g given today. Continue vitamin D 50,000 units weekly. Creatinine from 2.12-1.78-1.39-within normal limits. HCO3 14-86-37-52-86-47-within normal limits. Likely secondary to diuresis. Renal ultrasound shows abdominal ascites, no hydronephrosis or nephrolithiasis. Plans: Daily BMP. Avoid nephrotoxins. Follow nephrology consultation. Continue sodium bicarb by mouth. WBC count 35.6-41.2-35-31.3-68.6-63.3. Leukocytosis likely stress-induced and steroid induced. Gets weekly Procrit injections at Dr. Miller's office. Plan: Daily CBC. Procrit injections weekly. Start IV iron as per nephrology recommendations. Plan: Continue aspirin, Plavix and Lipitor. Metoprolol resumed. Plan: No anticoagulation due to recurrent GI bleeds. Continue amiodarone. Hold beta quan due to hypotension. Telemetry monitoring. Follow cardiology consult. Uric acid elevated at 16.9. Plans: DC Prednisone and start Solumedrol. Restart Allopurinol. Pain control with Tylenol or morphine. Follow PT recommendations. Patient admitted for sepsis due to right lower extremity cellulitis, ID on board. Concerns for ischemic necrosis of the R 4th toe, underwent amputation by Vascular surgery on 05/09, cultures pending on IV Antibiotics with ID on board. Cardiology on board for CHF exacerbation. Prognosis is very guarded. (1) Cellulitis of right lower extremity Current Visit: Yes Status: Acute Code(s): L03.115 - CELLULITIS OF RIGHT LOWER LIMB SNOMED Code(s): 712835019 (2) Acute kidney injury Current Visit: Yes Status: Resolved Code(s): N17.9 - ACUTE KIDNEY FAILURE, UNSPECIFIED SNOMED Code(s): 76831120 (3) Myeloproliferative disorder Current Visit: No Status: Chronic Code(s): D47.1 - CHRONIC MYELOPROLIFERATIVE DISEASE SNOMED Code(s): 762306734 (4) Leukocytosis Current Visit: No Status: Chronic Priority: Medium Code(s): D72.829 - ELEVATED WHITE BLOOD CELL COUNT, UNSPECIFIED SNOMED Code(s): 199750914 (5) Hypotension Current Visit: Yes Status: Resolved Code(s): I95.9 - HYPOTENSION, UNSPECIFIED SNOMED Code(s): 06631594 (6) Hyperkalemia Current Visit: Yes Status: Resolved Code(s): E87.5 - HYPERKALEMIA SNOMED Code(s): 02648394 (7) Hyponatremia Current Visit: Yes Status: Resolved Code(s): E87.1 - HYPO-OSMOLALITY AND HYPONATREMIA SNOMED Code(s): 22582639 (8) Gout flare Current Visit: Yes Status: Resolved Code(s): M10.9 - GOUT, UNSPECIFIED SNOMED Code(s): 871468003
--- NOTE | 2019-05-12 11:47 | P.PN ---
Subjective Progress Note Date: 05/12/19 Principal diagnosis: Severe peripheral vessel occlusive disease and right fourth toe gangrene, status post amputation and debridement of right medial calf wound This is a 79-year-old male patient with known history of extensive peripheral vascular disease with previous fem-pop arthrectomy and bovine patch insertion in addition to history of chronic atrial fibrillation was not been able to maintain on anticoagulation because of alcohol GI bleeding. The patient also known to have coronary artery disease, diastolic heart failure, hypertension and hyperlipidemia and gout. The patient came into the hospital yesterday because of an extensive right leg pain. The pain was mainly over the posterior aspect of his right callus and the patient also developed a bluish discoloration of the fourth toe. There was also some erythematous rash over the oh and over the anterior/medial thigh area where the vascular intervention was done earlier. On examination, the area is quite painful. The patient had a Doppler of the right lower x-ray that showed no evidence of any DVT. Pulses were obtained by Doppler signal in the popliteal dorsalis pedis and anterior tibialis. The patient is adequate femoral vein in the right groin area that was palpable. The patient is afebrile. The patient is hemodynamically stable. He was started on antibiotics for now. His cardiac rhythm remains in atrial fibrillation. The patient had a repeat echocardiogram today that showed severe pulmonary hypertension which has been noted on previous echocardiogram with a PA pressure estimated to be in the 90 mmHg range. He was furthermore found to have elevated uric acid level which probably is not related to this current presentation. The patient has underlying history of gout. The patient's current white count is 41.2. The patient has significant neutrophilia of 38%. The patient was started on accommodation Zosyn and vancomycin. The patient is on no pressors for now. Outpatient medications have been ordered resume. The primary cultures are negative for the past 24 hours. Reevaluated today on 05/11/2019, patient has multiple complaints including pain in both forearms, pain everywhere, shortness of breath, intermittent episodes of cough and wheezing, had similar symptoms yesterday, and he responded to Lasix. Continues to have leukocytosis, he underwent fourth toe amputation the day before yesterday, and he underwent debridement of the right medial calf wound. Patient remains on antibiotics in the form of vancomycin and cefepime, continues to have significant leukocytosis with WBC count of 75.5, hemoglobin is 7.3. Electrolytes were relatively normal bicarb is a bit low at 20. BUN is 44 creatinine is 1.06. Patient was reevaluated today on 05/12/2019, much more comfortable today compared to yesterday, less pain in forearms, Doppler was negative for deep vein thro mbosis. Patient continues to have leukocytosis, WBC count is up to 80,000, continues to have intermittent episodes of hypothermia requiring warming blanket. Continues to be on warm blanket this morning. Feels a bit more comfortable compared to yesterday. Remains on antibiotics. And that is vanc omycin and cefepime. Patient is to be seen by oncology on consultation for his leukemoid reaction. Objective - Vital Signs Vital signs: Vital Signs Temp 97.4 F L 05/12/19 08:00 Pulse 101 H 05/12/19 11:42 Resp 21 05/12/19 11:00 BP 108/54 05/12/19 11:00 Pulse Ox 97 05/12/19 11:00 Intake & Output 05/11/19 05/12/19 05/12/19 18:59 06:59 18:59 Intake Total 155 370 390 Output Total 580 555 120 Balance -425 -185 270 Weight 86.4 kg Intake: IV 155 370 140 0.9 KVO 155 120 40 Cefepime 2 gm In Sodium 100 Chloride 0.9% 100 ml @ 200 mls/hr IVPB Q24HR JOSE Rx#:[id number] Vancomycin 1,500 mg In 250 Sodium Chloride 0.9% 250 ml @ 125 mls/hr IVPB Q16H JOSE Rx#:[id number] Oral 250 Output: Urine 580 555 120 Other: Voiding Method Indwelling Catheter Indwelling Catheter # Voids 0 - Exam GENERAL EXAM: 79-year-old white male, on 2 L nasal cannula, in no distress. HEAD: Normocephalic/atraumatic. EYES: PERRLA, EOMI, neck tightness. NOSE: Clear with pink turbinates. THROAT: No erythema or exudates. NECK: No masses, no JVD, no thyroid enlargement, no adenopathy. CHEST: No chest wall deformity. Symmetrical expansion. LUNGS: Rhonchi and wheezes noted bilaterally.. CVS: Regular rate and rhythm, normal S1 and S2, no gallops, no murmurs, no rubs ABDOMEN: Soft nontender no megaly no rebound no guarding, positive bowel sounds. EXTREMITIES: No clubbing, no cyanosis, pulses are only obtained by Doppler signal in the lower extremities and level of the dorsalis pedis and posterior tibialis. Amputation site is clean as the patient has an amputation of his fourth toe on the right. There is also dressing at the site of the debridement in the posterior calf area and the right. The wound was examined, seems to be fairly clean, rather deep. Neurologic: Alert oriented 3, no gross focal deficit. Psychiatric: Normal mood affect and normal mental status examination. - Labs CBC & Chem 7: 05/12/19 04:58 05/12/19 04:58 Labs: Abnormal Lab Results - Last 24 Hours (Table) 05/11/19 05/11/19 05/11/19 Range/Units 16:41 18:16 20:54 WBC (3.8-10.6) k/uL RBC (4.30-5.90) m/uL Hgb (13.0-17.5) gm/dL Hct (39.0-53.0) % MCHC (31.0-37.0) g/dL RDW (11.5-15.5) % Neutrophils # (Manual) (1.3-7.7) k/uL Myelocytes # (Manual) (0) k/uL Nucleated RBCs (0-0) /100 WBC Sodium (137-145) mmol/L Potassium (3.5-5.1) mmol/L Carbon Dioxide (22-30) mmol/L BUN (9-20) mg/dL Creatinine (0.66-1.25) mg/dL Glucose (74-99) mg/dL POC Glucose (mg/dL) 223 H 160 H (75-99) mg/dL Calcium 6.5 L (8.4-10.2) mg/dL 05/12/19 05/12/19 05/12/19 Range/Units 04:58 04:58 06:45 WBC 80.2 H* (3.8-10.6) k/uL RBC 2.88 L (4.30-5.90) m/uL Hgb 7.3 L (13.0-17.5) gm/dL Hct 26.3 L (39.0-53.0) % MCHC 27.8 L (31.0-37.0) g/dL RDW 26.1 H (11.5-15.5) % Neutrophils # (Manual) 66.50 H (1.3-7.7) k/uL Myelocytes # (Manual) 11.23 H (0) k/uL Nucleated RBCs 24 H (0-0) /100 WBC Sodium 135 L (137-145) mmol/L Potassium 5.3 H (3.5-5.1) mmol/L Carbon Dioxide 21 L (22-30) mmol/L BUN 54 H (9-20) mg/dL Creatinine 1.43 H (0.66-1.25) mg/dL Glucose 116 H (74-99) mg/dL POC Glucose (mg/dL) 159 H (75-99) mg/dL Calcium 6.6 L (8.4-10.2) mg/dL Microbiology - Last 24 Hours (Table) 05/09/19 18:19 Anaerobic Culture - Preliminary Leg - Right 05/09/19 18:19 Gram Stain - Preliminary Leg - Right Wound Culture - Final Staphylococcus aureus 05/08/19 14:45 Blood Culture - Preliminary Blood No Growth after 72 hours 05/08/19 12:01 Blood Culture - Preliminary Blood No Growth after 72 hours Assessment and Plan Assessment: Impression: 1 acute gangrene of right fourth toe, patient had severe peripheral vessel oc clusive disease, previous femoral popliteal endarterectomy and bovine graft. Cultures been positive for Pseudomonas, and MRSA, patient is on cefepime and vancomycin. 2 acute leukocytosis, suspect underlying myeloproliferative disorder. In addition to his ongoing infection of the foot and toe. 3 acute sepsis secondary to above. 4 Lactic acidosis secondary to ischemia of the right lower extremity 5 Chronic atrial fibrillation 6 Hypertension 7 Chronic anemia 8 Previous history of GI bleeding, 9 History of myeloproliferative disorder 10 Hyperlipidemia 11 History of gout 12 systolic congestive heart failure, acute. 13 acute exacerbation of COPD. Recommendation: continue antibiotics, continue IV Solu-Medrol for intermittent bronchospasm. Continue updrafts, continue diuretics, presently off bicarb drip, we will keep the patient in the intensive care unit. Obviously the patient is critically ill, and I wouldn't be surprised if he ends up on mechanical ventilation. Prognosis remains extremely poor and guarded. Time with Patient: Less than 30
[2019-05-12 12:00] LABS: Glucose,Whole Blood 177 mg/dL (75-99)
--- NOTE | 2019-05-12 12:05 | P.PN ---
Subjective Progress Note Date: 05/12/19 Principal diagnosis: Myeloproliferative WBC 80.2, Hemoglobin 7.3, epogen is continued. Temperature have been low, 94- 94.7F He does complain of increased SOB, denies pain. Objective - Vital Signs Vital signs: Vital Signs Temp 97.4 F L 05/12/19 08:00 Pulse 101 H 05/12/19 11:42 Resp 21 05/12/19 11:00 BP 108/54 05/12/19 11:00 Pulse Ox 97 05/12/19 11:00 Intake & Output 05/11/19 05/12/19 05/12/19 18:59 06:59 18:59 Intake Total 155 370 390 Output Total 580 555 120 Balance -425 -185 270 Weight 86.4 kg Intake: IV 155 370 140 0.9 KVO 155 120 40 Cefepime 2 gm In Sodium 100 Chloride 0.9% 100 ml @ 200 mls/hr IVPB Q24HR JOSE Rx#:[id number] Vancomycin 1,500 mg In 250 Sodium Chloride 0.9% 250 ml @ 125 mls/hr IVPB Q16H JOSE Rx#:[id number] Oral 250 Output: Urine 580 555 120 Other: Voiding Method Indwelling Catheter Indwelling Catheter # Voids 0 - Exam General: Alert and Oriented x3, No Acute Distress Head: Normocytic, Atraumatic Neck: Supple Mouth: No Lesions, No Thrush Eyes: Non-sclerotic No Palpable cervical, supraclavicular, axillary adenopathy Heart: Irreg, Irreg Lungs: Increased respiratory effort, coarse breath sounds Abdomen: firm, Distended, Non-Tended, Extremities: Peripheral Vascular abnormalities, evidence of surgical intervention. BLE and BUE edema Neurological: No Focal Defects: No sensory or motor deficits noted Psych: Calm and cooperative - Labs CBC & Chem 7: 05/12/19 04:58 05/12/19 04:58 Labs: Abnormal Lab Results - Last 24 Hours (Table) 05/11/19 05/11/19 05/11/19 Range/Units 16:41 18:16 20:54 WBC (3.8-10.6) k/uL RBC (4.30-5.90) m/uL Hgb (13.0-17.5) gm/dL Hct (39.0-53.0) % MCHC (31.0-37.0) g/dL RDW (11.5-15.5) % Neutrophils # (Manual) (1.3-7.7) k/uL Myelocytes # (Manual) (0) k/uL Nucleated RBCs (0-0) /100 WBC Sodium (137-145) mmol/L Potassium (3.5-5.1) mmol/L Carbon Dioxide (22-30) mmol/L BUN (9-20) mg/dL Creatinine (0.66-1.25) mg/dL Glucose (74-99) mg/dL POC Glucose (mg/dL) 223 H 160 H (75-99) mg/dL Calcium 6.5 L (8.4-10.2) mg/dL 05/12/19 05/12/19 05/12/19 Range/Units 04:58 04:58 06:45 WBC 80.2 H* (3.8-10.6) k/uL RBC 2.88 L (4.30-5.90) m/uL Hgb 7.3 L (13.0-17.5) gm/dL Hct 26.3 L (39.0-53.0) % MCHC 27.8 L (31.0-37.0) g/dL RDW 26.1 H (11.5-15.5) % Neutrophils # (Manual) 66.50 H (1.3-7.7) k/uL Myelocytes # (Manual) 11.23 H (0) k/uL Nucleated RBCs 24 H (0-0) /100 WBC Sodium 135 L (137-145) mmol/L Potassium 5.3 H (3.5-5.1) mmol/L Carbon Dioxide 21 L (22-30) mmol/L BUN 54 H (9-20) mg/dL Creatinine 1.43 H (0.66-1.25) mg/dL Glucose 116 H (74-99) mg/dL POC Glucose (mg/dL) 159 H (75-99) mg/dL Calcium 6.6 L (8.4-10.2) mg/dL 05/12/19 Range/Units 11:49 WBC (3.8-10.6) k/uL RBC (4.30-5.90) m/uL Hgb (13.0-17.5) gm/dL Hct (39.0-53.0) % MCHC (31.0-37.0) g/dL RDW (11.5-15.5) % Neutrophils # (Manual) (1.3-7.7) k/uL Myelocytes # (Manual) (0) k/uL Nucleated RBCs (0-0) /100 WBC Sodium (137-145) mmol/L Potassium (3.5-5.1) mmol/L Carbon Dioxide (22-30) mmol/L BUN (9-20) mg/dL Creatinine (0.66-1.25) mg/dL Glucose (74-99) mg/dL POC Glucose (mg/dL) 177 H (75-99) mg/dL Calcium (8.4-10.2) mg/dL Microbiology - Last 24 Hours (Table) 05/09/19 18:19 Anaerobic Culture - Preliminary Leg - Right 05/09/19 18:19 Gram Stain - Preliminary Leg - Right Wound Culture - Final Staphylococcus aureus 05/08/19 14:45 Blood Culture - Preliminary Blood No Growth after 72 hours 05/08/19 12:01 Blood Culture - Preliminary Blood No Growth after 72 hours Assessment and Plan (1) Cellulitis of right lower extremity Current Visit: Yes Status: Acute Code(s): L03.115 - CELLULITIS OF RIGHT LOWER LIMB SNOMED Code(s): 185421442 (2) Atrial fibrillation Current Visit: No Status: Chronic Code(s): I48.91 - UNSPECIFIED ATRIAL FIBRILLATION SNOMED Code(s): 70704601 (3) JAK2 gene mutation Current Visit: No Status: Chronic Priority: Medium Code(s): Z15.89 - GENETIC SUSCEPTIBILITY TO OTHER DISEASE SNOMED Code(s): 63380468 (4) Myelofibrosis Current Visit: No Status: Chronic Priority: Medium Code(s): D75.81 - MYELOFIBROSIS SNOMED Code(s): 82547794 Plan: Assessment and Recommendations: Leukocytosis: - Secondary to underlying myelofibrosis as well as exacerbated by acute infection and recent surgery - Monitor white count and differential daily Macrocytic Normo anemia acute on chronic - Secondary to underlying chronic disease and inflammation exacerbated with acute inflammation and recent surgery - Monitor daily CBC and transfuse for hemoglobin less than 7 - Receives Epogen 40K weekly, as outpatient, will continue, has been ordered by nephrology 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 Burk is a pleasant 79year old male patient well known to us for monitoring of his chronic anemia and myelofibrosis. He was recently weaned off of treatment with Jakafi as his disease appeared to stop responding. His most recent recommendations from a hematological standpoint was to have evaluation at [facility] in [place], transplant center for evaluation of other options. - Currently he is seen weekly and receives Epogen (Procrit 40K) injections for his anemia of consequence of his bone marrow disorder and treatment effect from Jakafi. - He has received numerous transfusions over the years related to the above, transfusion dependant status has improved on Epogen. - Monitoring, no current treatment with Jakafi at this time Atrial Fib - Unable to anticoagulate secondary to GI bleeding - Continue on prophylactic anticoagulation - Cardiology following Severe Coronary Artery and Peripheral Vascular Disease: -Cardiology Following - Continue to hold Xarelto at this time, May consider re-challenging anti coagualtion with another choice DOAC per cardiology - Plavix and ASA Recs per Cardiology Low Temperature: - Blood cultures x2 - Chest Xray
[2019-05-12] MEDS ORDERED: FUROSEMIDE 10 MG/ML 4 ML VIAL IV STA (12:24)
--- NOTE | 2019-05-12 14:35 | P.PN ---
Subjective Progress Note Date: 05/12/19 patient seen and examined. Biggest complaint today remains breathing. Minimal pain and right lower extremity. Bilateral forearm pain improved Objective - Vital Signs Vital signs: Vital Signs Temp 97.7 F 05/12/19 12:00 Pulse 84 05/12/19 14:00 Resp 18 05/12/19 14:00 BP 110/66 05/12/19 14:00 Pulse Ox 97 05/12/19 14:00 Intake & Output 05/11/19 05/12/19 05/12/19 18:59 06:59 18:59 Intake Total 155 370 520 Output Total 580 555 365 Balance -425 -185 155 Weight 86.4 kg Intake: IV 155 370 170 0.9 KVO 155 120 70 Cefepime 2 gm In Sodium 100 Chloride 0.9% 100 ml @ 200 mls/hr IVPB Q24HR JOSE Rx#:[id number] Vancomycin 1,500 mg In 250 Sodium Chloride 0.9% 250 ml @ 125 mls/hr IVPB Q16H JOSE Rx#:[id number] Oral 350 Output: Urine 580 555 365 Other: Voiding Method Indwelling Catheter Indwelling Catheter Indwelling Catheter # Voids 0 - Exam Mild respiratory distress, on nasal cannula Abdomen soft Bilateral upper extremities with areas of ecchymosis, palpable radial pulses bilaterally. No gross edema Right lower extremity dressing is removed. The incision at the medial calf continues to show no evidence of cellulitis or purulent drainage. Significant decrease in the edema given the Jonah wrap to lower extremity. The right fourth toe wound is changed. No evidence of cellulitis or purulent drainage. There are stong monophasic dp/PT on right lower extremity. No crepitus. No tenderness to palpation of the calf/anterior leg. Motor intact in the bilateral feet. No pain or complaints of left lower extremity. Adequate capillary refill. - Labs CBC & Chem 7: 05/12/19 04:58 05/12/19 04:58 Labs: Abnormal Lab Results - Last 24 Hours (Table) 05/11/19 05/11/19 05/11/19 Range/Units 16:41 18:16 20:54 WBC (3.8-10.6) k/uL RBC (4.30-5.90) m/uL Hgb (13.0-17.5) gm/dL Hct (39.0-53.0) % MCHC (31.0-37.0) g/dL RDW (11.5-15.5) % Neutrophils # (Manual) (1.3-7.7) k/uL Myelocytes # (Manual) (0) k/uL Nucleated RBCs (0-0) /100 WBC Sodium (137-145) mmol/L Potassium (3.5-5.1) mmol/L Carbon Dioxide (22-30) mmol/L BUN (9-20) mg/dL Creatinine (0.66-1.25) mg/dL Glucose (74-99) mg/dL POC Glucose (mg/dL) 223 H 160 H (75-99) mg/dL Calcium 6.5 L (8.4-10.2) mg/dL 05/12/19 05/12/19 05/12/19 Range/Units 04:58 04:58 06:45 WBC 80.2 H* (3.8-10.6) k/uL RBC 2.88 L (4.30-5.90) m/uL Hgb 7.3 L (13.0-17.5) gm/dL Hct 26.3 L (39.0-53.0) % MCHC 27.8 L (31.0-37.0) g/dL RDW 26.1 H (11.5-15.5) % Neutrophils # (Manual) 66.50 H (1.3-7.7) k/uL Myelocytes # (Manual) 11.23 H (0) k/uL Nucleated RBCs 24 H (0-0) /100 WBC Sodium 135 L (137-145) mmol/L Potassium 5.3 H (3.5-5.1) mmol/L Carbon Dioxide 21 L (22-30) mmol/L BUN 54 H (9-20) mg/dL Creatinine 1.43 H (0.66-1.25) mg/dL Glucose 116 H (74-99) mg/dL POC Glucose (mg/dL) 159 H (75-99) mg/dL Calcium 6.6 L (8.4-10.2) mg/dL 05/12/19 Range/Units 11:49 WBC (3.8-10.6) k/uL RBC (4.30-5.90) m/uL Hgb (13.0-17.5) gm/dL Hct (39.0-53.0) % MCHC (31.0-37.0) g/dL RDW (11.5-15.5) % Neutrophils # (Manual) (1.3-7.7) k/uL Myelocytes # (Manual) (0) k/uL Nucleated RBCs (0-0) /100 WBC Sodium (137-145) mmol/L Potassium (3.5-5.1) mmol/L Carbon Dioxide (22-30) mmol/L BUN (9-20) mg/dL Creatinine (0.66-1.25) mg/dL Glucose (74-99) mg/dL POC Glucose (mg/dL) 177 H (75-99) mg/dL Calcium (8.4-10.2) mg/dL Microbiology - Last 24 Hours (Table) 05/08/19 12:01 Blood Culture - Preliminary Blood No Growth after 96 hours 05/09/19 18:19 Gram Stain - Final Leg - Right Wound Culture - Final Staphylococcus aureus 05/09/19 18:19 Anaerobic Culture - Preliminary Leg - Right 05/08/19 14:45 Blood Culture - Preliminary Blood No Growth after 72 hours Assessment and Plan Assessment: 1.postoperative day #3 from right fourth toe amputation and lower leg incisional debridement 2. Atherosclerotic disease of the bilateral lower extremities 3. CHF exacerbation 4. HTN 5. Atrial fibrillation 6. Hyperlipidemia 7. Coronary artery disease 8. Leukocytosis, Remains afebrile. Does have a history of a myeloproliferative disease. Plan: satisfactory postoperative wound evaluations. Again is unlikely that the majority of the cause of his issue be from his leg. Wound dressings are changed today. Continue saline wet-to-dry. Discontinue Dakin's. There is adequate blood flow to the leg and does not appear to be ischemic at this time. Continue IV antibiotics and will wait for wound progression. Again,doubt septic emboli given there is no true graft in that right lower extremity, only a bovine pericardial patch at the femoral endarterectomy site from previous intervention. continue supportive care and ICU management. Ultrasound of the upper ext is reviewed. Superficial venous thrombus bilaterally. Warm compresses and elevation.
[2019-05-12] MEDS: VANCOMYCIN 1,500 MG in SODIUM CHLORIDE 0.9% 250 ML IVPB SCH (14:57)
--- NOTE | 2019-05-12 14:58 | PN ---
PROGRESS NOTE Patient is seen for followup for acute kidney injury. He has currently being treated for a wound on his right lower extremity. Serum creatinine has been at about 1.1 to 1.0 mg/dL. This morning it is up to 1.43. Patient was noted to have a few low blood pressure readings yesterday. He is complaining of mild shortness of breath. No other significant complaints. PHYSICAL EXAMINATION: Blood pressure this afternoon 103/59, heart rate 89 per minute, patient is afebrile. Examination of the heart S1, S2. Examination of the lungs, decreased breath sounds at bases. Abdomen is soft, nontender. Examination of the lower extremities shows edema 2+ bilaterally, right leg is currently wrapped. LABS: Show sodium 135, potassium 5.3, BUN 54, serum creatinine 1.43, hemoglobin 7.3. ASSESSMENT: 1. Acute kidney injury secondary to hypotension, hypoperfusion, some degree of ATN, possibly cardiorenal as well. Currently, patient is nonoliguric. However, urine output is on the lower side. He is volume overloaded. I will give him a dose of IV Lasix today. We will repeat labs in a.m. He is not on any nephrotoxic medications and we need to avoid hypotension. I will add midodrine if he continues to be hypotensive. patient is maintained on vancomycin and the trough level is ordered for tomorrow. I will check her level today. 2. Right lower extremity ischemia and ulcer being followed by Vascular Surgery. 3. Volume overload, I will diurese the patient gently. 4. Metabolic acidosis, status post bicarb drip. 5. History of methicillin-resistant Staphylococcus aureus and Enterobacter infection. Current wound cultures showing methicillin-resistant Staphylococcus aureus, maintained on vancomycin, being followed by ID. 6. Atrial fibrillation with controlled ventricular response, maintained on Lopressor. PLAN: Lasix x1. Repeat labs in a.m. Expect improvement in potassium as well with the loop diuretics. Avoid nephrotoxic agents. MMODL / IJN: [id number] /
--- NOTE | 2019-05-12 15:25 | P.PN ---
Subjective Patient is resting comfortably in bed. No chest discomfort dizziness lightheadedness no shortness of breath Blood pressure 106/53 was mercury normal respirations pulse rate 81 beats a minute Breath sounds are reduced bilaterally no rhonchi no crackles Heart sounds S1 and S2 are normal no murmurs or gallops Abdomen soft Impression Severe peripheral vascular disease Hypertension Permanent atrial fibrillation nondramatic coagulation on account of GI bleeding A. fib with RVR Hypertension Patient's heart rates are better controlled now on the higher dose of metoprolol Tomorrow I'll plan to increase to 50 mg twice daily Objective - Vital Signs Vital signs: Vital Signs Temp 97.7 F 05/12/19 12:00 Pulse 81 05/12/19 15:00 Resp 15 05/12/19 15:00 BP 106/58 05/12/19 15:00 Pulse Ox 97 05/12/19 15:00 Intake & Output 05/11/19 05/12/19 05/12/19 18:59 06:59 18:59 Intake Total 155 370 530 Output Total 580 555 440 Balance -425 -185 90 Weight 86.4 kg Intake: IV 155 370 180 0.9 KVO 155 120 80 Cefepime 2 gm In Sodium 100 Chloride 0.9% 100 ml @ 200 mls/hr IVPB Q24HR JOSE Rx#:[id number] Vancomycin 1,500 mg In 250 Sodium Chloride 0.9% 250 ml @ 125 mls/hr IVPB Q16H JOSE Rx#:[id number] Oral 350 Output: Urine 580 555 440 Other: Voiding Method Indwelling Catheter Indwelling Catheter Indwelling Catheter # Voids 0 - Labs CBC & Chem 7: 05/12/19 04:58 05/12/19 04:58 Labs: Abnormal Lab Results - Last 24 Hours (Table) 05/11/19 05/11/19 05/11/19 Range/Units 16:41 18:16 20:54 WBC (3.8-10.6) k/uL RBC (4.30-5.90) m/uL Hgb (13.0-17.5) gm/dL Hct (39.0-53.0) % MCHC (31.0-37.0) g/dL RDW (11.5-15.5) % Neutrophils # (Manual) (1.3-7.7) k/uL Myelocytes # (Manual) (0) k/uL Nucleated RBCs (0-0) /100 WBC Sodium (137-145) mmol/L Potassium (3.5-5.1) mmol/L Carbon Dioxide (22-30) mmol/L BUN (9-20) mg/dL Creatinine (0.66-1.25) mg/dL Glucose (74-99) mg/dL POC Glucose (mg/dL) 223 H 160 H (75-99) mg/dL Calcium 6.5 L (8.4-10.2) mg/dL 05/12/19 05/12/19 05/12/19 Range/Units 04:58 04:58 06:45 WBC 80.2 H* (3.8-10.6) k/uL RBC 2.88 L (4.30-5.90) m/uL Hgb 7.3 L (13.0-17.5) gm/dL Hct 26.3 L (39.0-53.0) % MCHC 27.8 L (31.0-37.0) g/dL RDW 26.1 H (11.5-15.5) % Neutrophils # (Manual) 66.50 H (1.3-7.7) k/uL Myelocytes # (Manual) 11.23 H (0) k/uL Nucleated RBCs 24 H (0-0) /100 WBC Sodium 135 L (137-145) mmol/L Potassium 5.3 H (3.5-5.1) mmol/L Carbon Dioxide 21 L (22-30) mmol/L BUN 54 H (9-20) mg/dL Creatinine 1.43 H (0.66-1.25) mg/dL Glucose 116 H (74-99) mg/dL POC Glucose (mg/dL) 159 H (75-99) mg/dL Calcium 6.6 L (8.4-10.2) mg/dL 05/12/19 Range/Units 11:49 WBC (3.8-10.6) k/uL RBC (4.30-5.90) m/uL Hgb (13.0-17.5) gm/dL Hct (39.0-53.0) % MCHC (31.0-37.0) g/dL RDW (11.5-15.5) % Neutrophils # (Manual) (1.3-7.7) k/uL Myelocytes # (Manual) (0) k/uL Nucleated RBCs (0-0) /100 WBC Sodium (137-145) mmol/L Potassium (3.5-5.1) mmol/L Carbon Dioxide (22-30) mmol/L BUN (9-20) mg/dL Creatinine (0.66-1.25) mg/dL Glucose (74-99) mg/dL POC Glucose (mg/dL) 177 H (75-99) mg/dL Calcium (8.4-10.2) mg/dL Microbiology - Last 24 Hours (Table) 05/08/19 12:01 Blood Culture - Preliminary Blood No Growth after 96 hours 05/09/19 18:19 Gram Stain - Final Leg - Right Wound Culture - Final Staphylococcus aureus 05/09/19 18:19 Anaerobic Culture - Preliminary Leg - Right 05/08/19 14:45 Blood Culture - Preliminary Blood No Growth after 72 hours
[2019-05-12 16:51] LABS: Glucose,Whole Blood 170 mg/dL (75-99)
--- NOTE | 2019-05-12 17:12 | XR ---
EXAMINATION: XR chest 1V portable DATE AND TIME: 05/12/2019 5:02 PM CLINICAL INDICATION: PHH; SOB TECHNIQUE: AP portable upright COMPARISON: AP portable upright dated 05/11/2019, obtained at 5:29 AM FINDINGS: Sternal sutures and mediastinal clips and EKG leads redemonstrated. Moderately enlarged cardiac silhouette redemonstrated. Small right pleural effusion presently, with prominent interval improvement when compared to prior st udy. No pneumothorax or other abnormal gas collection. There is a subtle interstitial pattern, improved since the prior study, and likely represent mildly e levated left heart pressures. There is airlessness throughout the visualized right lower lobe, correlate for atelectasis, with conc urrent bronchopneumonia able to be clinically excluded. The skeletal structures and soft tissues are negative for acute findings. IMPRESSION: Mildly improved overall lung inflation pattern.
[2019-05-12] MEDS ORDERED: POLYETHYLENE GLYCOL 3350 17 GM POWD.PACK PO STA (17:30)
[2019-05-12] MEDS: DARBEPOETIN ALFA 100MCG/0.5ML SYRINGE SQ SCH (18:15)
--- NOTE | 2019-05-12 19:26 | PN ---
PROGRESS NOTE DATE OF SERVICE: 05/12/2019 REASON FOR FOLLOWUP: Right fourth toe gangrene and right leg wound cellulitis with MRSA. INTERVAL HISTORY: The patient is currently afebrile. Patient has been breathing comfortably. Denies having any chest pain or any cough. No abdominal pain or worsening pain to the right leg area. The patient is currently hemodynamically stable, not on any pressor support. PHYSICAL EXAMINATION: Blood pressure 106/58 with a pulse of 81, temperature 98. He is 97% on 4 L nasal cannula. General description is an elderly male lying in bed in no distress. RESPIRATORY SYSTEM: Unlabored breathing. Clear to auscultation anteriorly. HEART: S1, S2. Regular rate and rhythm. ABDOMEN: Soft. No tenderness. Right foot is currently dressed up. No obvious drainage on the dressing. LABS: Hemoglobin 7.3, white count 80.2. BUN of 54, creatinine 1.43. DIAGNOSTIC IMPRESSION AND PLAN: Patient with right fourth toe gangrene methicillin-resistant Staphylococcus aeruginosa, status post amputation of the right fourth toe, and blister on the right leg, status post debridement. As no gram-negative has been grown, will discontinue the cefepime. Keep the patient on vancomycin while monitoring his clinical course and vancomycin trough closely. Continue with supportive care. MMODL / IJN: [id number] /
[2019-05-12 20:44] LABS: Glucose,Whole Blood 212 mg/dL (75-99)
[2019-05-12] MEDS: ATORVASTATIN 40 MG TAB PO SCH (20:54)
[2019-05-13] MEDS: HYDROcodone/APAP 5-325MG 1 EACH TAB PO PRN ×2 (04:01→15:31)
[2019-05-13] MEDS ORDERED: VANCOMYCIN TROUGH DUE 1 EACH MISC MISCELLANE ONE (05:00)
[2019-05-13 05:19] LABS: Anisocytosis Marked; HCT 26.7 % (39.0-53.0); HGB 7.9 gm/dL (13.0-17.5); Hypochromasia Marked; MCH 26.1 pg (25.0-35.0); MCHC 29.7 g/dL (31.0-37.0); MCV 87.6 fL (80.0-100.0); Macrocytosis Slight; Mean Platelet Volume 9.6; Microcytosis Slight; Platelet Count 495 k/uL (150-450); Poikilocytosis Marked; RBC 3.04 m/uL (4.30-5.90)
[2019-05-13 05:29] LABS: RDW 26.7 % (11.5-15.5)
[2019-05-13 05:38] LABS: Calcium 6.6 mg/dL (8.4-10.2); Potassium 5.2 mmol/L (3.5-5.1)
[2019-05-13 06:08] LABS: Band Neutrophils % 14 %; Eosinophils # (M) 0.97 k/uL (0-0.7); Metamyelocytes # (M) 1.93 k/uL (0); Metamyelocytes % 2 %; Monocytes # (M) 0.97 k/uL (0-1.0); Myelocytes # (M) 0.97 k/uL (0); Myelocytes % 1 %; Neutrophils % (M) 79 %; Nucleated Red Blood Cells 15 /100 WBC (0-0); Total Cells Counted 200; WBC 96.6 k/uL (3.8-10.6)
[2019-05-13 06:09] LABS: Large Platelets Present; Polychromasia Present; RBC Fragments Present
[2019-05-13] MEDS: methylPREDNISolone SOD SUCCI 40 MG/ML 1 ML VIAL IV SCH ×3 (06:18→18:01)
[2019-05-13] MEDS: VANCOMYCIN 1,500 MG in SODIUM CHLORIDE 0.9% 250 ML IVPB SCH (06:21)
[2019-05-13] MEDS: INSULIN ASPART (NovoLOG) 100 UNIT/ML VIAL SQ SCH ×4 (06:57→20:52)
[2019-05-13] MEDS: PANTOPRAZOLE 40 MG TABLET PO SCH (06:57)
[2019-05-13 07:07] LABS: Glucose,Whole Blood 146 mg/dL (75-99)
--- NOTE | 2019-05-13 07:24 | P.PN ---
Subjective Progress Note Date: 05/13/19 Principal diagnosis: Myeloproliferative body temperature has improved, still awaiting CNC Objective - Vital Signs Vital signs: Vital Signs Temp 97.4 F L 05/13/19 04:00 Pulse 75 05/13/19 07:00 Resp 20 05/13/19 07:00 BP 94/54 05/13/19 07:00 Pulse Ox 96 05/13/19 07:00 Intake & Output 05/12/19 05/13/19 05/13/19 18:59 06:59 18:59 Intake Total 1110 120 10 Output Total 590 395 35 Balance 520 -275 -25 Weight 88 kg Intake: IV 460 120 10 0.9 KVO 110 120 10 Cefepime 2 gm In Sodium 100 Chloride 0.9% 100 ml @ 200 mls/hr IVPB Q24HR [facility] Rx#:[id number] Vancomycin 1,500 mg In 250 Sodium Chloride 0.9% 250 ml @ 125 mls/hr IVPB Q16H [facility] Rx#:[id number] Oral 650 Output: Urine 590 395 35 Other: Voiding Method Indwelling Catheter Indwelling Catheter - Exam General: Alert and Oriented x3, No Acute Distress Head: Normocytic, Atraumatic Neck: Supple Mouth: No Lesions, No Thrush Eyes: Non-sclerotic No Palpable cervical, supraclavicular, axillary adenopathy Heart: Irreg, Irreg Lungs: Increased respiratory effort, coarse breath sounds Abdomen: firm, Distended, Non-Tended, Extremities: Peripheral Vascular abnormalities, evidence of surgical intervention. BLE and BUE edema Neurological: No Focal Defects: No sensory or motor deficits noted Psych: Calm and cooperative - Labs CBC & Chem 7: 05/13/19 04:54 05/13/19 04:54 Labs: Abnormal Lab Results - Last 24 Hours (Table) 05/12/19 05/12/19 05/12/19 Range/Units 11:49 16:41 20:32 WBC (3.8-10.6) k/uL RBC (4.30-5.90) m/uL Hgb (13.0-17.5) gm/dL Hct (39.0-53.0) % MCHC (31.0-37.0) g/dL RDW (11.5-15.5) % Plt Count (150-450) k/uL Neutrophils # (Manual) (1.3-7.7) k/uL Eosinophils # (Manual) (0-0.7) k/uL Metamyelocytes # (Man) (0) k/uL Myelocytes # (Manual) (0) k/uL Nucleated RBCs (0-0) /100 WBC Sodium (137-145) mmol/L Potassium (3.5-5.1) mmol/L Carbon Dioxide (22-30) mmol/L BUN (9-20) mg/dL Creatinine (0.66-1.25) mg/dL Glucose (74-99) mg/dL POC Glucose (mg/dL) 177 H 170 H 212 H (75-99) mg/dL Calcium (8.4-10.2) mg/dL Vancomycin Trough ug/mL 05/13/19 05/13/19 05/13/19 Range/Units 04:54 04:54 04:54 WBC 96.6 H* (3.8-10.6) k/uL RBC 3.04 L (4.30-5.90) m/uL Hgb 7.9 L (13.0-17.5) gm/dL Hct 26.7 L (39.0-53.0) % MCHC 29.7 L (31.0-37.0) g/dL RDW 26.7 H (11.5-15.5) % Plt Count 495 H (150-450) k/uL Neutrophils # (Manual) 89.80 H (1.3-7.7) k/uL Eosinophils # (Manual) 0.97 H (0-0.7) k/uL Metamyelocytes # (Man) 1.93 H (0) k/uL Myelocytes # (Manual) 0.97 H (0) k/uL Nucleated RBCs 15 H (0-0) /100 WBC Sodium 133 L (137-145) mmol/L Potassium 5.2 H (3.5-5.1) mmol/L Carbon Dioxide 19 L (22-30) mmol/L BUN 62 H (9-20) mg/dL Creatinine 1.50 H (0.66-1.25) mg/dL Glucose 136 H (74-99) mg/dL POC Glucose (mg/dL) (75-99) mg/dL Calcium 6.6 L (8.4-10.2) mg/dL Vancomycin Trough 32.9 H* ug/mL 05/13/19 Range/Units 06:55 WBC (3.8-10.6) k/uL RBC (4.30-5.90) m/uL Hgb (13.0-17.5) gm/dL Hct (39.0-53.0) % MCHC (31.0-37.0) g/dL RDW (11.5-15.5) % Plt Count (150-450) k/uL Neutrophils # (Manual) (1.3-7.7) k/uL Eosinophils # (Manual) (0-0.7) k/uL Metamyelocytes # (Man) (0) k/uL Myelocytes # (Manual) (0) k/uL Nucleated RBCs (0-0) /100 WBC Sodium (137-145) mmol/L Potassium (3.5-5.1) mmol/L Carbon Dioxide (22-30) mmol/L BUN (9-20) mg/dL Creatinine (0.66-1.25) mg/dL Glucose (74-99) mg/dL POC Glucose (mg/dL) 146 H (75-99) mg/dL Calcium (8.4-10.2) mg/dL Vancomycin Trough ug/mL Microbiology - Last 24 Hours (Table) 05/08/19 14:45 Blood Culture - Preliminary Blood No Growth after 96 hours 05/08/19 12:01 Blood Culture - Preliminary Blood No Growth after 96 hours 05/09/19 18:19 Gram Stain - Final Leg - Right Wound Culture - Final Staphylococcus aureus Assessment and Plan (1) Cellulitis of right lower extremity Current Visit: Yes Status: Acute Code(s): L03.115 - CELLULITIS OF RIGHT LOWER LIMB SNOMED Code(s): 752290812 (2) Atrial fibrillation Current Visit: No Status: Chronic Code(s): I48.91 - UNSPECIFIED ATRIAL FIBRILLATION SNOMED Code(s): 14453593 (3) JAK2 gene mutation Current Visit: No Status: Chronic Priority: Medium Code(s): Z15.89 - GENETIC SUSCEPTIBILITY TO OTHER DISEASE SNOMED Code(s): 52991370 (4) Myelofibrosis Current Visit: No Status: Chronic Priority: Medium Code(s): D75.81 - MYELOFIBROSIS SNOMED Code(s): 50693040 Plan: Assessment and Recommendations: Leukocytosis: - Secondary to underlying myelofibrosis as well as exacerbated by acute infection and recent surgery - Monitor white count and differential daily Macrocytic Normo anemia acute on chronic - Secondary to underlying chronic disease and inflammation exacerbated with acute inflammation and recent surgery - Monitor daily CBC and transfuse for hemoglobin less than 7 - Receives Epogen 40K weekly, as outpatient, will continue, has been ordered by nephrology 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 Burk is a pleasant 79year old male patient well known to us for monitoring of his chronic anemia and myelofibrosis. He was recently weaned off of treatment with Jakafi as his disease appeared to stop responding. His most recent recommendations from a hematological standpoint was to have evaluation at [facility] in [place], transplant center for evaluation of other options. - Currently he is seen weekly and receives Epogen (Procrit 40K) injections for his anemia of consequence of his bone marrow disorder and treatment effect from Jakafi. - He has received numerous transfusions over the years related to the above, transfusion dependant status has improved on Epogen. - Monitoring, no current treatment with Jakafi at this time Atrial Fib - Unable to anticoagulate secondary to GI bleeding - Continue on prophylactic anticoagulation - Cardiology following Severe Coronary Artery and Peripheral Vascular Disease: -Cardiology Following - Continue to hold Xarelto at this time, May consider re-challenging anticoagualtion with another choice DOAC per cardiology - Plavix and ASA Recs per Cardiology Low Temperature: improved - Blood cultures x2 - Chest Xray
[2019-05-13] MEDS: IPRATROPIUM-ALBUTEROL 3 ML NEB INHALATION SCH ×4 (08:04→20:19)
[2019-05-13] MEDS: HEPARIN SODIUM,PORCINE 5,000 UNIT/ML 1 ML VIAL SQ SCH ×2 (08:58→16:49)
[2019-05-13] MEDS: CALCIUM CARBONATE 500 MG CHEWABLE PO SCH ×2 (08:58→20:55)
[2019-05-13] MEDS: ALLOPURINOL 100 MG TAB PO SCH (08:58)
[2019-05-13] MEDS: CLOPIDOGREL 75 MG TAB PO SCH (08:58)
[2019-05-13] MEDS: ASPIRIN 81 MG PO SCH (08:58)
[2019-05-13] MEDS: NYSTATIN 100,000 UNIT/ML SUSP 500,000 UNIT/5 ML CUP PO SCH ×4 (08:59→21:02)
[2019-05-13] MEDS: POLYETHYLENE GLYCOL 3350 17 GM POWD.PACK PO SCH (08:59)
[2019-05-13] MEDS: ERGOCALCIFEROL 50,000 UNIT CAP PO SCH (08:59)
[2019-05-13] MEDS: METOPROLOL TARTRATE 25 MG TAB PO SCH ×3 (08:59→21:02)
[2019-05-13] MEDS: DOCUSATE 100 MG CAP PO SCH (08:59)
[2019-05-13] MEDS: SODIUM HYPOCHLORITE 0.25% 480 ML BOT MISCELLANE SCH (09:00)
[2019-05-13] MEDS ORDERED: SODIUM POLYSTYRENE SULFONATE 15 GM/60 ML BOTTLE PO STA (09:15)
[2019-05-13] MEDS ORDERED: FUROSEMIDE 10 MG/ML 4 ML VIAL IV STA (09:51)
--- NOTE | 2019-05-13 10:38 | PN ---
PROGRESS NOTE Patient is seen for followup of acute kidney injury. His renal function has gotten worse over the last couple of days. Vancomycin level came back elevated at 32 for trough level and the random level was at 36.5 yesterday. The patient continues to have fair amount of urine output at about 30 to 40 mL an hour. He received a dose of IV Lasix yesterday. No significant complaints today. PHYSICAL EXAMINATION: On examination, blood pressure 101/68, heart rate 82 per minute. He is afebrile. EXAMINATION OF THE HEART: S1, S2. EXAMINATION OF THE LUNGS: Decreased breath sounds at the bases. ABDOMEN: Soft, nontender. Examination of lower extremities shows edema 2+ bilaterally and right foot is currently wrapped. LABS: Labs show vancomycin trough at 32.9. Sodium 133, potassium 5.2, chloride 105, CO2 is 19, BUN 62, serum creatinine 1.5, hemoglobin 7.9 g/dL. ASSESSMENT: 1. Acute kidney injury secondary to vancomycin toxicity and discontinue the vancomycin for now. I did discuss with Infectious Disease as well. I will hold off on Lasix unless patient develops respiratory distress. 2. Mild hyperkalemia associated with worsening renal function. Continue to monitor for now. 3. Hypervolemic hyponatremia. Expect improvement with improvement in volume status. Avoid excessive free water intake. 4. Right lower extremity ulcer with wound cultures growing Staphylococcus aureus and it was methicillin-resistant Staphylococcus aureus. Patient is maintained on vancomycin, which will be held and switched to possibly daptomycin per ID. 5. Right lower extremity ischemia. PLAN: Hold vancomycin. Repeat labs in a.m. Add midodrine as blood pressure has been staying on the lower side and repeat labs in a.m. Avoid any other nephrotoxic agents. MMODL / IJN: [id number] /
--- NOTE | 2019-05-13 10:58 | P.PN ---
Subjective Progress Note Date: 05/13/19 Principal diagnosis: Severe peripheral vessel occlusive disease and right fourth toe gangrene, status post amputation and debridement of right medial calf wound This is a 79-year-old male patient with known history of extensive peripheral vascular disease with previous fem-pop arthrectomy and bovine patch insertion in addition to history of chronic atrial fibrillation was not been able to maintain on anticoagulation because of alcohol GI bleeding. The patient also known to have coronary artery disease, diastolic heart failure, hypertension and hyperlipidemia and gout. The patient came into the hospital yesterday because of an extensive right leg pain. The pain was mainly over the posterior aspect of his right callus and the patient also developed a bluish discoloration of the fourth toe. There was also some erythematous rash over the oh and over the anterior/medial thigh area where the vascular intervention was done earlier. On examination, the area is quite painful. The patient had a Doppler of the right lower x-ray that showed no evidence of any DVT. Pulses were obtained by Doppler signal in the popliteal dorsalis pedis and anterior tibialis. The patient is adequate femoral vein in the right groin area that was palpable. The patient is afebrile. The patient is hemodynamically stable. He was started on antibiotics for now. His cardiac rhythm remains in atrial fibrillation. The patient had a repeat echocardiogram today that showed severe pulmonary hypertension which has been noted on previous echocardiogram with a PA pressure estimated to be in the 90 mmHg range. He was furthermore found to have elevated uric acid level which probably is not related to this current presentation. The patient has underlying history of gout. The patient's current white count is 41.2. The patient has significant neutrophilia of 38%. The patient was started on accommodation Zosyn and vancomycin. The patient is on no pressors for now. Outpatient medications have been ordered resume. The primary cultures are negative for the past 24 hours. Reevaluated today on 05/11/2019, patient has multiple complaints including pain in both forearms, pain everywhere, shortness of breath, intermittent episodes of cough and wheezing, had similar symptoms yesterday, and he responded to Lasix. Continues to have leukocytosis, he underwent fourth toe amputation the day before yesterday, and he underwent debridement of the right medial calf wound. Patient remains on antibiotics in the form of vancomycin and cefepime, continues to have significant leukocytosis with WBC count of 75.5, hemoglobin is 7.3. Electrolytes were relatively normal bicarb is a bit low at 20. BUN is 44 creatinine is 1.06. Patient was reevaluated today on 05/12/2019, much more comfortable today compared to yesterday, less pain in forearms, Doppler was negative for deep vein thro mbosis. Patient continues to have leukocytosis, WBC count is up to 80,000, continues to have intermittent episodes of hypothermia requiring warming blanket. Continues to be on warm blanket this morning. Feels a bit more comfortable compared to yesterday. Remains on antibiotics. And that is vanc omycin and cefepime. Patient is to be seen by oncology on consultation for his leukemoid reaction. Reevaluated today on 05/13/2019, patient remains in the ICU, comfortable, hardly any pain, hardly any shortness of breath, feeling much better compared to how he felt over the last few days. His chest x-ray continues to show small right- sided pleural effusion, interval improvement noted in his overall volume status. And he continues to have some atelectasis in the right lower lobe. Pneumonia in the right lower lobe is not entirely ruled out, but felt to be less likely. Continues to have significant leukocytosis of 96.6 hemoglobin 7.9. Basic metabolic profile is normal BUN is 62 creatinine 1.50. Continues to be followed by nephrology for his acute kidney injury, vancomycin has been discontinued, patient has been receiving Lasix on a daily basis on when necessary basis, and his overall volume status is improving. Will be given 1 dose of Lasix today only. Objective - Vital Signs Vital signs: Vital Signs Temp 97.9 F 05/13/19 08:00 Pulse 82 05/13/19 09:00 Resp 15 05/13/19 09:00 BP 101/68 05/13/19 09:00 Pulse Ox 97 05/13/19 09:00 Intake & Output 05/12/19 05/13/19 05/13/19 18:59 06:59 18:59 Intake Total 1110 120 230 Output Total 590 395 115 Balance 520 -275 115 Weight 88 kg Intake: IV 460 120 30 0.9 KVO 110 120 30 Cefepime 2 gm In Sodium 100 Chloride 0.9% 100 ml @ 200 mls/hr IVPB Q24HR [facility] Rx#:[id number] Vancomycin 1,500 mg In 250 Sodium Chloride 0.9% 250 ml @ 125 mls/hr IVPB Q16H [facility] Rx#:[id number] Oral 650 200 Output: Urine 590 395 115 Other: Voiding Method Indwelling Catheter Indwelling Catheter Indwelling Catheter - Exam GENERAL EXAM: 79-year-old white male, on 2 L nasal cannula, in no distress. HEAD: Normocephalic/atraumatic. EYES: PERRLA, EOMI, neck tightness. NOSE: Clear with pink turbinates. THROAT: No erythema or exudates. NECK: No masses, no JVD, no thyroid enlargement, no adenopathy. CHEST: No chest wall deformity. Symmetrical expansion. LUNGS: Diminished breath sounds at the bases no crackles or rhonchi or wheezes. CVS: Regular rate and rhythm, normal S1 and S2, no gallops, no murmurs, no rubs ABDOMEN: Soft nontender no megaly no rebound no guarding, positive bowel sounds. EXTREMITIES: No clubbing, no cyanosis, pulses are only obtained by Doppler signal in the lower extremities and level of the dorsalis pedis and posterior tibialis. Amputation site is clean as the patient has an amputation of his f ourth toe on the right. There is also dressing at the site of the debridement in the posterior calf area and the right. The wound was examined, seems to be fairly clean, rather deep. Neurologic: Alert oriented 3, no gross focal deficit. Psychiatric: Normal mood affect and normal mental status examination. - Labs CBC & Chem 7: 05/13/19 04:54 05/13/19 04:54 Labs: Abnormal Lab Results - Last 24 Hours (Table) 05/12/19 05/12/19 05/12/19 Range/Units 11:49 16:41 20:32 WBC (3.8-10.6) k/uL RBC (4.30-5.90) m/uL Hgb (13.0-17.5) gm/dL Hct (39.0-53.0) % MCHC (31.0-37.0) g/dL RDW (11.5-15.5) % Plt Count (150-450) k/uL Neutrophils # (Manual) (1.3-7.7) k/uL Eosinophils # (Manual) (0-0.7) k/uL Metamyelocytes # (Man) (0) k/uL Myelocytes # (Manual) (0) k/uL Nucleated RBCs (0-0) /100 WBC Sodium (137-145) mmol/L Potassium (3.5-5.1) mmol/L Carbon Dioxide (22-30) mmol/L BUN (9-20) mg/dL Creatinine (0.66-1.25) mg/dL Glucose (74-99) mg/dL POC Glucose (mg/dL) 177 H 170 H 212 H (75-99) mg/dL Calcium (8.4-10.2) mg/dL Vancomycin Trough ug/mL 05/13/19 05/13/19 05/13/19 Range/Units 04:54 04:54 04:54 WBC 96.6 H* (3.8-10.6) k/uL RBC 3.04 L (4.30-5.90) m/uL Hgb 7.9 L (13.0-17.5) gm/dL Hct 26.7 L (39.0-53.0) % MCHC 29.7 L (31.0-37.0) g/dL RDW 26.7 H (11.5-15.5) % Plt Count 495 H (150-450) k/uL Neutrophils # (Manual) 89.80 H (1.3-7.7) k/uL Eosinophils # (Manual) 0.97 H (0-0.7) k/uL Metamyelocytes # (Man) 1.93 H (0) k/uL Myelocytes # (Manual) 0.97 H (0) k/uL Nucleated RBCs 15 H (0-0) /100 WBC Sodium 133 L (137-145) mmol/L Potassium 5.2 H (3.5-5.1) mmol/L Carbon Dioxide 19 L (22-30) mmol/L BUN 62 H (9-20) mg/dL Creatinine 1.50 H (0.66-1.25) mg/dL Glucose 136 H (74-99) mg/dL POC Glucose (mg/dL) (75-99) mg/dL Calcium 6.6 L (8.4-10.2) mg/dL Vancomycin Trough 32.9 H* ug/mL 05/13/19 Range/Units 06:55 WBC (3.8-10.6) k/uL RBC (4.30-5.90) m/uL Hgb (13.0-17.5) gm/dL Hct (39.0-53.0) % MCHC (31.0-37.0) g/dL RDW (11.5-15.5) % Plt Count (150-450) k/uL Neutrophils # (Manual) (1.3-7.7) k/uL Eosinophils # (Manual) (0-0.7) k/uL Metamyelocytes # (Man) (0) k/uL Myelocytes # (Manual) (0) k/uL Nucleated RBCs (0-0) /100 WBC Sodium (137-145) mmol/L Potassium (3.5-5.1) mmol/L Carbon Dioxide (22-30) mmol/L BUN (9-20) mg/dL Creatinine (0.66-1.25) mg/dL Glucose (74-99) mg/dL POC Glucose (mg/dL) 146 H (75-99) mg/dL Calcium (8.4-10.2) mg/dL Vancomycin Trough ug/mL Microbiology - Last 24 Hours (Table) 05/08/19 14:45 Blood Culture - Preliminary Blood No Growth after 96 hours 05/08/19 12:01 Blood Culture - Preliminary Blood No Growth after 96 hours 05/09/19 18:19 Gram Stain - Final Leg - Right Wound Culture - Final Staphylococcus aureus Assessment and Plan Assessment: Impression: 1 acute gangrene of right fourth toe, patient had severe peripheral vessel occlusive disease, previous femoral popliteal endarterectomy and bovine graft. Cultures been positive for Pseudomonas, and MRSA, patient is on cefepime and vancomycin. 2 acute leukocytosis, suspect underlying myeloproliferative disorder. In addition to his ongoing infection of the foot and toe. 3 acute sepsis secondary to above. 4 Lactic acidosis secondary to ischemia of the right lower extremity 5 Chronic atrial fibrillation 6 Hypertension 7 Chronic anemia 8 Previous history of GI bleeding, 9 History of myeloproliferative disorder 10 Hyperlipidemia 11 History of gout 12 systolic congestive heart failure, acute. 13 acute exacerbation of COPD. Recommendation: continue antibiotics, continue IV Solu-Medrol for intermittent bronchospasm. Continue updrafts, cut down on the diuretics, we will keep the patient in the intensive care unit. For the next 24 hours, possibly transfer the patient out of the ICU tomorrow if he continues to do well. Time with Patient: Less than 30
[2019-05-13 12:32] LABS: Glucose,Whole Blood 193 mg/dL (75-99)
[2019-05-13] MEDS: DAPTOmycin 500 MG in SODIUM CHLORIDE 0.9% 50 ML IVPB SCH (12:50)
[2019-05-13] MEDS: MIDODRINE 5 MG TAB PO SCH ×2 (12:52→16:49)
--- NOTE | 2019-05-13 13:41 | PN ---
PROGRESS NOTE DATE OF SERVICE: 05/13/2019 REASON FOR FOLLOWUP: Right fourth toe gangrene and cellulitis with MRSA infection. INTERVAL HISTORY: The patient is currently afebrile. Patient has been breathing comfortably. Denies having any chest pain or any cough. Pain to the right foot and leg area currently controlled. No nausea, no vomiting. No diarrhea. PHYSICAL EXAMINATION: On examination, blood pressure 105/69 with a pulse of 78, temperature is 97.4. He is 97% on 2 L nasal cannula. General description is an elderly male lying in bed in no distress. RESPIRATORY SYSTEM: Unlabored breathing, clear to auscultation anteriorly. HEART: S1, S2. Regular rate and rhythm. ABDOMEN: Soft, no tenderness. Right fourth toe amputated site wound with no significant slough tissue, surrounding redness decreased, no drainage. LABS: Hemoglobin 7.8, white of 96.6, BUN of 62, creatinine of 1.50. DIAGNOSTIC IMPRESSION AND PLAN: Patient with a right fourth toe gangrene with methicillin-resistant Staphylococcus aureus infection, status post amputation of right fourth toe along with debridement of the right leg wound. The patient was noticed to have worsening of his kidney function with a creatinine up to 1.5 and elevated Vanco trough. As per discussion with Nephrology, we will discontinue the vancomycin and start the patient on daptomycin to prevent further nephrotoxicity and monitor his clinical course closely. MMODL / IJN: [id number] /
--- NOTE | 2019-05-13 16:53 | P.PN ---
Subjective Progress Note Date: 05/13/19 Patient seen and examined at bedside, reports his pain is much better controlled today without any significant difficulty breathing Chest x-ray stable suggesting CHF. WBCs elevated up to 96.6 today stable hemoglobin 7.9g, patient's hypothermia has resolved. Creatinine is up today to 1.52 with elevated random vancomycin trough of 33. Objective - Vital Signs Vital signs: Vital Signs Temp 97.4 F L 05/13/19 12:00 Pulse 98 05/13/19 14:00 Resp 23 05/13/19 14:00 BP 101/51 05/13/19 14:00 Pulse Ox 98 05/13/19 14:00 Intake & Output 05/12/19 05/13/19 05/13/19 18:59 06:59 18:59 Intake Total 1110 120 540 Output Total 590 395 825 Balance 636 -977 -258 Weight 88 kg Intake: IV 460 120 140 0.9 KVO 110 120 90 Cefepime 2 gm In Sodium 100 Chloride 0.9% 100 ml @ 200 mls/hr IVPB Q24HR [facility] Rx#:[id number] DAPTOmycin 500 mg In 50 Sodium Chloride 0.9% 50 ml @ 100 mls/hr IVPB Q24H [facility] Rx#:[id number] Vancomycin 1,500 mg In 250 Sodium Chloride 0.9% 250 ml @ 125 mls/hr IVPB Q16H [facility] Rx#:[id number] Oral 650 400 Output: Urine 590 395 825 Other: Voiding Method Indwelling Catheter Indwelling Catheter Indwelling Catheter - Exam Constitutional: No acute distress, conversant, pleasant Eyes: Anicteric sclerae, moist conjunctiva, no lid-lag, PERRLA ENMT: NC/AT,Oropharynx clear, no erythema, exudates Neck:Supple, FROM, no masses, or JVD, No carotid bruits; No thyromegaly Lungs: Scattered rhonchi and wheezes bilaterally Cardiovascular: Heart regular in rate and rhythm, No murmurs, gallops, or rubs no peripheral edema Abdominal: Soft Nontender, nom distended, no guarding, no rebound or rigidity, Normoactive bowel sounds No hepatomegaly, No splenomegaly, No palpable mass No abdominal wall hernia noted Skin: Normal temperature, tone, texture, turgor, No induration No subcutaneous nodules, No rash, lesions, No ulcers Extremities: Pulses also treated with Doppler signal in bilateral upper extremities and lower extremities, amputation site is clean post amputation of the right fourth toe, noted dressing at the site of debridement in the posterior calf on the right Psychiatric: Alert and oriented to person, place and time, Appropriate affect Intact judgement Neuro: Muscles Strength 5/5 in all 4 extremities, Sensation to light touch grossly present throughout, Cranial nerves II-XII grossly intact. No focal sensory deficits - Labs CBC & Chem 7: 05/13/19 04:54 05/13/19 04:54 Labs: Abnormal Lab Results - Last 24 Hours (Table) 05/12/19 05/12/19 05/13/19 Range/Units 16:41 20:32 04:54 WBC (3.8-10.6) k/uL RBC (4.30-5.90) m/uL Hgb (13.0-17.5) gm/dL Hct (39.0-53.0) % MCHC (31.0-37.0) g/dL RDW (11.5-15.5) % Plt Count (150-450) k/uL Neutrophils # (Manual) (1.3-7.7) k/uL Eosinophils # (Manual) (0-0.7) k/uL Metamyelocytes # (Man) (0) k/uL Myelocytes # (Manual) (0) k/uL Nucleated RBCs (0-0) /100 WBC Sodium (137-145) mmol/L Potassium (3.5-5.1) mmol/L Carbon Dioxide (22-30) mmol/L BUN (9-20) mg/dL Creatinine (0.66-1.25) mg/dL Glucose (74-99) mg/dL POC Glucose (mg/dL) 170 H 212 H (75-99) mg/dL Calcium (8.4-10.2) mg/dL Vancomycin Trough 32.9 H* ug/mL 05/13/19 05/13/19 05/13/19 Range/Units 04:54 04:54 06:55 WBC 96.6 H* (3.8-10.6) k/uL RBC 3.04 L (4.30-5.90) m/uL Hgb 7.9 L (13.0-17.5) gm/dL Hct 26.7 L (39.0-53.0) % MCHC 29.7 L (31.0-37.0) g/dL RDW 26.7 H (11.5-15.5) % Plt Count 495 H (150-450) k/uL Neutrophils # (Manual) 89.80 H (1.3-7.7) k/uL Eosinophils # (Manual) 0.97 H (0-0.7) k/uL Metamyelocytes # (Man) 1.93 H (0) k/uL Myelocytes # (Manual) 0.97 H (0) k/uL Nucleated RBCs 15 H (0-0) /100 WBC Sodium 133 L (137-145) mmol/L Potassium 5.2 H (3.5-5.1) mmol/L Carbon Dioxide 19 L (22-30) mmol/L BUN 62 H (9-20) mg/dL Creatinine 1.50 H (0.66-1.25) mg/dL Glucose 136 H (74-99) mg/dL POC Glucose (mg/dL) 146 H (75-99) mg/dL Calcium 6.6 L (8.4-10.2) mg/dL Vancomycin Trough ug/mL 05/13/19 Range/Units 12:21 WBC (3.8-10.6) k/uL RBC (4.30-5.90) m/uL Hgb (13.0-17.5) gm/dL Hct (39.0-53.0) % MCHC (31.0-37.0) g/dL RDW (11.5-15.5) % Plt Count (150-450) k/uL Neutrophils # (Manual) (1.3-7.7) k/uL Eosinophils # (Manual) (0-0.7) k/uL Metamyelocytes # (Man) (0) k/uL Myelocytes # (Manual) (0) k/uL Nucleated RBCs (0-0) /100 WBC Sodium (137-145) mmol/L Potassium (3.5-5.1) mmol/L Carbon Dioxide (22-30) mmol/L BUN (9-20) mg/dL Creatinine (0.66-1.25) mg/dL Glucose (74-99) mg/dL POC Glucose (mg/dL) 193 H (75-99) mg/dL Calcium (8.4-10.2) mg/dL Vancomycin Trough ug/mL Microbiology - Last 24 Hours (Table) 05/08/19 12:01 Blood Culture - Preliminary Blood No Growth after 120 hours 05/08/19 14:45 Blood Culture - Preliminary Blood No Growth after 96 hours 05/09/19 18:19 Gram Stain - Final Leg - Right Wound Culture - Final Staphylococcus aureus Assessment and Plan Assessment: 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 severe PVD and occlusive disease Sepsis, possibly related to right lower extremity cellulitis worsening leukoc ytosis in the setting of infection Vancomycin-induced nephrotoxicity Oral thrush, resolved Acute on chronic systolic CHF exacerbation Hypocalcemia Acute kidney injury with metabolic acidosis, resolved Myeloproliferative disorder with leukocytosis CAD with recent RCA stent Atrial flutter Gout Bilateral upper extremity pain Lactic acidosis Patient with history of right lower extremity ischemia with common femoral severe occlusive disease status post right common femoral artery endarterectomy in March 2018. Unable to Doppler DP or PT pulse and right foot on 05/08, able to Doppler since. CTA aorta with runoff shows diffuse atheromatous changes with occlusion of the proximal right posterior tibial artery. Patient is POD 5 amputation of the R 4th toe and right debridement of R medical calf wound. Plans: Pain control with Bonneau or morphine as needed. Neurochecks and right lower extremity. Continue aspirin and Plavix. Follow vascular surgery recommendations. Patient with increased white count of 96.6 (05/13) from 31.3 (7/), , tachycardic to 104 with lactic acid elevated at 4.4. Likely related to right lower extremity cellulitis. Urine culture negative. Blood culture 05/03 negative at 144 hours. Blood cultures / negative at 24H. Wound culture should MRSA. Plans: Currently off pressors. Continue D5 NaHCO3 at 50 mL per hour (decreased from 120 cc/h). Tylenol as needed for fever. Patient continued on daptomycin, discussed with Dr. Joseph. Follow blood culture negative, wound culture positive for MRSA. Follow infectious disease recommendations Vancomycin trough severely elevated with elevated creatinine since been discontinued in favor of daptomycin Chest x-ray suggesting stable CHF. Plans: Hold Lasix today. Hold spirono lactone. Continue metoprolol 25 mg by mouth TID. Strict intake and output take. Daily weight. We'll be cautious as patient is being hydrated with IVF. Follow cardiology consultation. DuoNeb four times a day scheduled and Solumedrol IV started by Pulmonology for possible bronchospasm. Calcium 6.2-6.5 x 2, 6.4, 6.2. Low vitamin D of 15.8. Plans: Daily CMP. Start calcium carbonate 500 mg by mouth twice a day. Repeat Ca gulconate 1g given today. Continue vitamin D 50,000 units weekly. Creatinine from 2.12-1.78-1.39-within normal limits. HCO3 78-94-93-15-17-20-wi thin normal limits. Likely secondary to diuresis. Renal ultrasound shows abdominal ascites, no hydronephrosis or nephrolithiasis. Plans: Daily BMP. Avoid nephrotoxins. Follow nephrology consultation. Continue sodium bicarb by mouth. WBC count 35.6-41.2-35-31.3-68.6-63.3. Leukocytosis likely stress-induced and steroid induced. Gets weekly Procrit injections at Dr. Miller's office. Plan: Daily CBC. Procrit injections weekly. Start IV iron as per nephrology recommendations. Plan: Continue aspirin, Plavix and Lipitor. Metoprolol resumed. Plan: No anticoagulation due to recurrent GI bleeds. Continue amiodarone. Hold beta quan due to hypotension. Telemetry monitoring. Follow cardiology consult. Uric acid elevated at 16.9. Plans: DC Prednisone and start Solumedrol. Restart Allopurinol. Pain control with Tylenol or morphine. Follow PT recommendations. Bilateral upper extremity Dopplers suggestive of superficial venous thrombosis Lactic acid 4.4-2.1-2.5-2.8. Likely secondary to ischemia of the right foot An sepsisPlans: Continue IV antibiotics as above. resolved after IVF with NaHCO3 infusion. Patient admitted for sepsis due to right lower extremity cellulitis, ID on board. Concerns for ischemic necrosis of the R 4th toe, underwent amputation by Vascular surgery on 05/09, cultures pending on IV Antibiotics with ID on board. Cardiology on board for CHF exacerbation. Prognosis is very guarded. Disposition anticipated discharge in 1-2 days to [facility] for ongoing rehab (1) Cellulitis of right lower extremity Current Visit: Yes Status: Acute Code(s): L03.115 - CELLULITIS OF RIGHT LOWER LIMB SNOMED Code(s): 061733084 (2) Acute kidney injury Current Visit: Yes Status: Resolved Code(s): N17.9 - ACUTE KIDNEY FAILURE, UNSPECIFIED SNOMED Code(s): 79372039 (3) Myeloproliferative disorder Current Visit: No Status: Chronic Code(s): D47.1 - CHRONIC MYELOPROLIFERATIVE DISEASE SNOMED Code(s): 441290735 (4) Leukocytosis Current Visit: No Status: Chronic Priority: Medium Code(s): D72.829 - ELEVATED WHITE BLOOD CELL COUNT, UNSPECIFIED SNOMED Code(s): 344994812 (5) Hypotension Current Visit: Yes Status: Resolved Code(s): I95.9 - HYPOTENSION, UNSPECIFIE D SNOMED Code(s): 39904815 (6) Hyperkalemia Current Visit: Yes Status: Resolved Code(s): E87.5 - HYPERKALEMIA SNOMED Code(s): 71020225 (7) Hyponatremia Current Visit: Yes Status: Resolved Code(s): E87.1 - HYPO-OSMOLALITY AND HYPONATREMIA SNOMED Code(s): 77678668 (8) Gout flare Current Visit: Yes Status: Resolved Code(s): M10.9 - GOUT, UNSPECIFIED SNOMED Code(s): 426319351
[2019-05-13] MEDS ORDERED: SODIUM POLYSTYRENE SULFONATE 15 GM/60 ML BOTTLE PO ONE (17:00)
[2019-05-13 17:04] LABS: Glucose,Whole Blood 210 mg/dL (75-99)
--- NOTE | 2019-05-13 19:14 | P.PN ---
Subjective Progress Note Date: 05/13/19 patient seen and examined. Overall improving breathing. Minimal pain in right lower extremity. Objective - Vital Signs Vital signs: Vital Signs Temp 97.8 F 05/13/19 16:00 Pulse 88 05/13/19 16:00 Resp 22 05/13/19 16:00 BP 115/79 05/13/19 16:00 Pulse Ox 98 05/13/19 16:00 Intake & Output 05/13/19 05/13/19 05/14/19 06:59 18:59 06:59 Intake Total 120 560 Output Total 395 1100 Balance -275 -540 Weight 88 kg Intake: IV 120 160 0.9 KVO 120 110 DAPTOmycin 500 mg In 50 Sodium Chloride 0.9% 50 ml @ 100 mls/hr IVPB Q24H [facility] Rx#:[id number] Oral 400 Output: Urine 395 1100 Other: Voiding Method Indwelling Catheter Indwelling Catheter - Exam Mild respiratory distress, on nasal cannula Anasarca Abdomen soft Bilateral upper extremities with areas of ecchymosis, palpable radial pulses bilaterally. Right lower extremity dressing is removed. The incision at the medial calf continues to show no evidence of cellulitis or purulent drainage. Some areas of skin breakdown at edges. beginnigs of skin breakdown at lateral leg. Significant re-increase in edema after one day without jim/ema. The right fourth toe wound is changed. No evidence of cellulitis or purulent drainage. No crepitus. No tenderness to palpation of the calf/anterior leg. Motor intact in the bilateral feet. No pain or complaints of left lower extremity. Adequate capillary refill. - Labs CBC & Chem 7: 05/13/19 04:54 05/13/19 04:54 Labs: Abnormal Lab Results - Last 24 Hours (Table) 05/12/19 05/13/19 05/13/19 Range/Units 20:32 04:54 04:54 WBC 96.6 H* (3.8-10.6) k/uL RBC 3.04 L (4.30-5.90) m/uL Hgb 7.9 L (13.0-17.5) gm/dL Hct 26.7 L (39.0-53.0) % MCHC 29.7 L (31.0-37.0) g/dL RDW 26.7 H (11.5-15.5) % Plt Count 495 H (150-450) k/uL Neutrophils # (Manual) 89.80 H (1.3-7.7) k/uL Eosinophils # (Manual) 0.97 H (0-0.7) k/uL Metamyelocytes # (Man) 1.93 H (0) k/uL Myelocytes # (Manual) 0.97 H (0) k/uL Nucleated RBCs 15 H (0-0) /100 WBC Sodium (137-145) mmol/L Potassium (3.5-5.1) mmol/L Carbon Dioxide (22-30) mmol/L BUN (9-20) mg/dL Creatinine (0.66-1.25) mg/dL Glucose (74-99) mg/dL POC Glucose (mg/dL) 212 H (75-99) mg/dL Calcium (8.4-10.2) mg/dL Vancomycin Trough 32.9 H* ug/mL 05/13/19 05/13/19 05/13/19 Range/Units 04:54 06:55 12:21 WBC (3.8-10.6) k/uL RBC (4.30-5.90) m/uL Hgb (13.0-17.5) gm/dL Hct (39.0-53.0) % MCHC (31.0-37.0) g/dL RDW (11.5-15.5) % Plt Count (150-450) k/uL Neutrophils # (Manual) (1.3-7.7) k/uL Eosinophils # (Manual) (0-0.7) k/uL Metamyelocytes # (Man) (0) k/uL Myelocytes # (Manual) (0) k/uL Nucleated RBCs (0-0) /100 WBC Sodium 133 L (137-145) mmol/L Potassium 5.2 H (3.5-5.1) mmol/L Carbon Dioxide 19 L (22-30) mmol/L BUN 62 H (9-20) mg/dL Creatinine 1.50 H (0.66-1.25) mg/dL Glucose 136 H (74-99) mg/dL POC Glucose (mg/dL) 146 H 193 H (75-99) mg/dL Calcium 6.6 L (8.4-10.2) mg/dL Vancomycin Trough ug/mL 05/13/19 Range/Units 16:53 WBC (3.8-10.6) k/uL RBC (4.30-5.90) m/uL Hgb (13.0-17.5) gm/dL Hct (39.0-53.0) % MCHC (31.0-37.0) g/dL RDW (11.5-15.5) % Plt Count (150-450) k/uL Neutrophils # (Manual) (1.3-7.7) k/uL Eosinophils # (Manual) (0-0.7) k/uL Metamyelocytes # (Man) (0) k/uL Myelocytes # (Manual) (0) k/uL Nucleated RBCs (0-0) /100 WBC Sodium (137-145) mmol/L Potassium (3.5-5.1) mmol/L Carbon Dioxide (22-30) mmol/L BUN (9-20) mg/dL Creatinine (0.66-1.25) mg/dL Glucose (74-99) mg/dL POC Glucose (mg/dL) 210 H (75-99) mg/dL Calcium (8.4-10.2) mg/dL Vancomycin Trough ug/mL Microbiology - Last 24 Hours (Table) 05/08/19 14:45 Blood Culture - Preliminary Blood No Growth after 120 hours 05/08/19 12:01 Blood Culture - Preliminary Blood No Growth after 120 hours Assessment and Plan Assessment: 1.postoperative day #4 from right fourth toe amputation and lower leg incisional debridement 2. Atherosclerotic disease of the bilateral lower extremities 3. CHF exacerbation 4. HTN 5. Atrial fibrillation 6. Hyperlipidemia 7. Coronary artery disease 8. Leukocytosis, Remains afebrile. Does have a history of a myeloproliferative disease. Plan: satisfactory postoperative wound evaluations. Wound dressings are changed today. re-apply jim/ema hose to BLE. Continue saline wet-to-dry. Continue IV antibiotics and will wait for wound progression. Again,doubt septic emboli given there is no true graft in that right lower extremity, only a bovine pericardial patch at the femoral endarterectomy site from previous intervention. continue supportive care and ICU management. Superficial venous thrombus bilaterally. Warm compresses and elevation.
[2019-05-13 20:50] LABS: Glucose,Whole Blood 218 mg/dL (75-99)
[2019-05-14] MEDS: HEPARIN SODIUM,PORCINE 5,000 UNIT/ML 1 ML VIAL SQ SCH ×3 (00:53→18:03)
[2019-05-14] MEDS: methylPREDNISolone SOD SUCCI 40 MG/ML 1 ML VIAL IV SCH ×4 (00:53→17:56)
[2019-05-14] MEDS: HYDROcodone/APAP 5-325MG 1 EACH TAB PO PRN ×3 (04:21→17:55)
[2019-05-14 05:42] LABS: Albumin 2.7 g/dL (3.5-5.0); Calcium 6.5 mg/dL (8.4-10.2); Potassium 4.7 mmol/L (3.5-5.1); Total Bilirubin 1.7 mg/dL (0.2-1.3); Total Protein 5.2 g/dL (6.3-8.2)
[2019-05-14] MEDS: MIDODRINE 5 MG TAB PO SCH ×3 (06:48→17:56)
[2019-05-14] MEDS: PANTOPRAZOLE 40 MG TABLET PO SCH (06:50)
[2019-05-14] MEDS: INSULIN ASPART (NovoLOG) 100 UNIT/ML VIAL SQ SCH ×4 (07:18→21:38)
[2019-05-14 07:22] LABS: Glucose,Whole Blood 184 mg/dL (75-99)
[2019-05-14 07:26] LABS: Anisocytosis Marked; HCT 29.4 % (39.0-53.0); HGB 8.2 gm/dL (13.0-17.5); Hypochromasia Marked; MCH 25.7 pg (25.0-35.0); MCHC 27.9 g/dL (31.0-37.0); MCV 92.3 fL (80.0-100.0); Macrocytosis Moderate; Mean Platelet Volume 9.9; Microcytosis Slight; Platelet Count 452 k/uL (150-450); Poikilocytosis Marked; RBC 3.19 m/uL (4.30-5.90)
[2019-05-14 07:50] LABS: RDW 26.9 % (11.5-15.5)
[2019-05-14] MEDS: IPRATROPIUM-ALBUTEROL 3 ML NEB INHALATION SCH ×4 (07:57→19:31)
[2019-05-14] MEDS: METOPROLOL TARTRATE 25 MG TAB PO SCH ×3 (08:47→21:38)
[2019-05-14] MEDS: CALCIUM CARBONATE 500 MG CHEWABLE PO SCH ×2 (08:47→21:38)
[2019-05-14] MEDS: DOCUSATE 100 MG CAP PO SCH (08:47)
[2019-05-14] MEDS: ALLOPURINOL 100 MG TAB PO SCH (08:47)
[2019-05-14] MEDS: ASPIRIN 81 MG PO SCH (08:47)
[2019-05-14] MEDS: CLOPIDOGREL 75 MG TAB PO SCH (08:47)
[2019-05-14] MEDS: POLYETHYLENE GLYCOL 3350 17 GM POWD.PACK PO SCH (08:48)
[2019-05-14] MEDS: NYSTATIN 100,000 UNIT/ML SUSP 500,000 UNIT/5 ML CUP PO SCH ×4 (08:48→21:38)
[2019-05-14 09:00] LABS: Band Neutrophils % 8 %; Metamyelocytes % 2 %; Myelocytes % 6 %; Neutrophils % (M) 79 %; Nucleated Red Blood Cells 16 /100 WBC (0-0); Total Cells Counted 200
[2019-05-14 09:01] LABS: Metamyelocytes # (M) 1.93 k/uL (0); WBC 96.6 k/uL (3.8-10.6)
[2019-05-14 09:02] LABS: Ovalocytes Present
[2019-05-14 09:04] LABS: Large Platelets Present; Toxic Granulation Present
[2019-05-14 09:05] LABS: RBC Fragments Present; Toxic Vacuolation Present
--- NOTE | 2019-05-14 09:54 | XR ---
EXAMINATION TYPE: XR chest 1V portable DATE OF EXAM: 05/14/2019 COMPARISON: 05/12/2019 HISTORY: Shortness of breath TECHNIQUE: Single frontal view of the chest is obtained. FINDINGS: Postsurgical changes seen with cardiomegaly and diffuse interstitial pattern. Bilateral pl eural effusion and infiltrate. Arthropathy of the shoulders. Biapical pleural thickening. No pneumoth orax. Vascular calcifications noted. IMPRESSION: Stable chest x-ray most typical of CHF underlying pneumonia not excluded.
[2019-05-14] MEDS: DAPTOmycin 500 MG in SODIUM CHLORIDE 0.9% 50 ML IVPB SCH (10:05)
[2019-05-14 10:28] VITALS: BMI 31.1
[2019-05-14] MEDS ORDERED: FUROSEMIDE 10 MG/ML 4 ML VIAL IV STA (10:52)
--- NOTE | 2019-05-14 11:30 | PN ---
PROGRESS NOTE The patient is seen for followup of acute kidney injury. Most recently his acute kidney injury secondary to vancomycin toxicity. Vancomycin has been held. Renal function is stable. Patient has had good urine output. We held the Lasix yesterday secondary to worsening renal function. This morning patient denies any significant complaints. He continues to have significant edema. PHYSICAL EXAMINATION: On examination today, blood pressure was 117/68, heart rate 82 per minute. He is afebrile. EXAMINATION OF THE HEART: S1, S2. EXAMINATION OF THE LUNGS: Bilateral breath sounds are heard. Abdomen is soft, nontender, distended. Examination of the lower extremities shows edema 2+ bilaterally. Right foot is currently wrapped. LABS: Labs show hemoglobin 8.2, white cell count 96.6, sodium 133, potassium 4.7, BUN 62, serum creatinine 1.59, and albumin 2.7. ASSESSMENT: 1. Acute kidney injury, most recently secondary to vancomycin toxicity. Currently off of vancomycin. Renal function is stable. Urine output adequate. I will give another dose of IV Lasix today. 2. Volume overload with third spacing, maintain patient on regular dose of oral Lasix and will give an extra dose of IV Lasix today. 3. Right lower extremity ischemia, status post CT angiogram. 4. Right lower extremity ulcer, status post I and D, maintained on antibiotics for wound infection. Wound culture grew methicillin-resistant Staphylococcus aureus, is currently on daptomycin. 5. Chronic hypotension maintained on midodrine. Serum cortisol level was not low. PLAN: Repeat IV Lasix today. Continue off of vancomycin. Repeat labs in a.m. MMODL / IJN: [id number] /
--- NOTE | 2019-05-14 11:49 | P.PN ---
Subjective Progress Note Date: 05/14/19 Patient is evaluated today in follow-up care status post amputation toe. Patient indicates she feels well and that his pain is minimal at worst. Examination revealed the patient's dressing to be dry and intact. The patient's foot is now protected with a protective boot. Surgically no acute issues are ongoing. Await continued medical evaluation and therapy. Objective - Vital Signs Vital signs: Vital Signs Temp 97.6 F 05/14/19 04:00 Pulse 96 05/14/19 08:12 Resp 22 05/14/19 07:00 BP 117/68 05/14/19 07:00 Pulse Ox 97 05/14/19 07:59 Intake & Output 05/13/19 05/14/19 05/14/19 18:59 06:59 18:59 Intake Total 560 480 200 Output Total 1100 501 85 Balance -540 -21 115 Weight 90.1 kg 90.1 kg Intake: IV 160 30 0.9 KVO 110 30 DAPTOmycin 500 mg In 50 Sodium Chloride 0.9% 50 ml @ 100 mls/hr IVPB Q24H [facility] Rx#:[id number] Oral 400 450 200 Output: Urine 1100 501 85 Stool 0 Other: Voiding Method Indwelling Catheter Indwelling Catheter - Labs CBC & Chem 7: 05/14/19 04:49 05/14/19 04:49 Labs: Abnormal Lab Results - Last 24 Hours (Table) 05/13/19 05/13/19 05/13/19 Range/Units 12:21 16:53 20:39 WBC (3.8-10.6) k/uL RBC (4.30-5.90) m/uL Hgb (13.0-17.5) gm/dL Hct (39.0-53.0) % MCHC (31.0-37.0) g/dL RDW (11.5-15.5) % Plt Count (150-450) k/uL Neutrophils # (Manual) (1.3-7.7) k/uL Monocytes # (Manual) (0-1.0) k/uL Metamyelocytes # (Man) (0) k/uL Myelocytes # (Manual) (0) k/uL Nucleated RBCs (0-0) /100 WBC Sodium (137-145) mmol/L Carbon Dioxide (22-30) mmol/L BUN (9-20) mg/dL Creatinine (0.66-1.25) mg/dL Glucose (74-99) mg/dL POC Glucose (mg/dL) 193 H 210 H 218 H (75-99) mg/dL Calcium (8.4-10.2) mg/dL Total Bilirubin (0.2-1.3) mg/dL AST (17-59) U/L ALT (21-72) U/L Alkaline Phosphatase (38-126) U/L Total Protein (6.3-8.2) g/dL Albumin (3.5-5.0) g/dL 05/14/19 05/14/19 05/14/19 Range/Units 04:49 04:49 07:11 WBC 96.6 H* (3.8-10.6) k/uL RBC 3.19 L (4.30-5.90) m/uL Hgb 8.2 L (13.0-17.5) gm/dL Hct 29.4 L (39.0-53.0) % MCHC 27.9 L (31.0-37.0) g/dL RDW 26.9 H (11.5-15.5) % Plt Count 452 H (150-450) k/uL Neutrophils # (Manual) 84.00 H (1.3-7.7) k/uL Monocytes # (Manual) 2.90 H (0-1.0) k/uL Metamyelocytes # (Man) 1.93 H (0) k/uL Myelocytes # (Manual) 5.80 H (0) k/uL Nucleated RBCs 16 H (0-0) /100 WBC Sodium 133 L (137-145) mmol/L Carbon Dioxide 21 L (22-30) mmol/L BUN 62 H (9-20) mg/dL Creatinine 1.59 H (0.66-1.25) mg/dL Glucose 159 H (74-99) mg/dL POC Glucose (mg/dL) 184 H (75-99) mg/dL Calcium 6.5 L (8.4-10.2) mg/dL Total Bilirubin 1.7 H (0.2-1.3) mg/dL AST 65 H (17-59) U/L ALT 105 H (21-72) U/L Alkaline Phosphatase 193 H (38-126) U/L Total Protein 5.2 L (6.3-8.2) g/dL Albumin 2.7 L (3.5-5.0) g/dL Microbiology - Last 24 Hours (Table) 05/08/19 13:20 Gram Stain - Final Foot - Right Wound Culture - Final Methicillin resist S. aureus 05/09/19 18:19 Anaerobic Culture - Final Leg - Right 05/12/19 17:20 Blood Culture - Preliminary Blood No Growth after 24 hours 05/12/19 17:11 Blood Culture - Preliminary Blood No Growth after 24 hours 05/08/19 14:45 Blood Culture - Preliminary Blood No Growth after 120 hours 05/08/19 12:01 Blood Culture - Preliminary Blood No Growth after 120 hours
[2019-05-14 12:07] LABS: Glucose,Whole Blood 212 mg/dL (75-99)
--- NOTE | 2019-05-14 12:58 | P.PN ---
Subjective Progress Note Date: 05/14/19 Principal diagnosis: Severe peripheral vessel occlusive disease and right fourth toe gangrene, status post amputation and debridement of right medial calf wound This is a 79-year-old male patient with known history of extensive peripheral vascular disease with previous fem-pop arthrectomy and bovine patch insertion in addition to history of chronic atrial fibrillation was not been able to maintain on anticoagulation because of alcohol GI bleeding. The patient also known to have coronary artery disease, diastolic heart failure, hypertension and hyperlipidemia and gout. The patient came into the hospital yesterday because of an extensive right leg pain. The pain was mainly over the posterior aspect of his right callus and the patient also developed a bluish discoloration of the fourth toe. There was also some erythematous rash over the oh and over the anterior/medial thigh area where the vascular intervention was done earlier. On examination, the area is quite painful. The patient had a Doppler of the right lower x-ray that showed no evidence of any DVT. Pulses were obtained by Doppler signal in the popliteal dorsalis pedis and anterior tibialis. The patient is adequate femoral vein in the right groin area that was palpable. The patient is afebrile. The patient is hemodynamically stable. He was started on antibiotics for now. His cardiac rhythm remains in atrial fibrillation. The patient had a repeat echocardiogram today that showed severe pulmonary hypertension which has been noted on previous echocardiogram with a PA pressure estimated to be in the 90 mmHg range. He was furthermore found to have elevated uric acid level which probably is not related to this current presentation. The patient has underlying history of gout. The patient's current white count is 41.2. The patient has significant neutrophilia of 38%. The patient was started on accommodation Zosyn and vancomycin. The patient is on no pressors for now. Outpatient medications have been ordered resume. The primary cultures are negative for the past 24 hours. Reevaluated today on 05/11/2019, patient has multiple complaints including pain in both forearms, pain everywhere, shortness of breath, intermittent episodes of cough and wheezing, had similar symptoms yesterday, and he responded to Lasix. Continues to have leukocytosis, he underwent fourth toe amputation the day before yesterday, and he underwent debridement of the right medial calf wound. Patient remains on antibiotics in the form of vancomycin and cefepime, continues to have significant leukocytosis with WBC count of 75.5, hemoglobin is 7.3. Electrolytes were relatively normal bicarb is a bit low at 20. BUN is 44 creatinine is 1.06. Patient was reevaluated today on 05/12/2019, much more comfortable today compared to yesterday, less pain in forearms, Doppler was negative for deep vein thro mbosis. Patient continues to have leukocytosis, WBC count is up to 80,000, continues to have intermittent episodes of hypothermia requiring warming blanket. Continues to be on warm blanket this morning. Feels a bit more comfortable compared to yesterday. Remains on antibiotics. And that is vanc omycin and cefepime. Patient is to be seen by oncology on consultation for his leukemoid reaction. Reevaluated today on 05/13/2019, patient remains in the ICU, comfortable, hardly any pain, hardly any shortness of breath, feeling much better compared to how he felt over the last few days. His chest x-ray continues to show small right- sided pleural effusion, interval improvement noted in his overall volume status. And he continues to have some atelectasis in the right lower lobe. Pneumonia in the right lower lobe is not entirely ruled out, but felt to be less likely. Continues to have significant leukocytosis of 96.6 hemoglobin 7.9. Basic metabolic profile is normal BUN is 62 creatinine 1.50. Continues to be followed by nephrology for his acute kidney injury, vancomycin has been discontinued, patient has been receiving Lasix on a daily basis on when necessary basis, and his overall volume status is improving. Will be given 1 dose of Lasix today only. Reevaluated today on 05/14/2019, patient remains in the ICU, feeling much better, hardly any wheezing, hardly any shortness of breath, pain seems to be fairly well controlled, his surgical wounds have been addressed today by vascular surgery and felt that he has no surgical issues to be addressed at this point. His family is at bedside, I reviewed the chest x-ray with him and his family, and felt that the patient is actually improving with antibiotics and diuretics as well as bronchodilators, and I plan to transfer the patient out of the ICU today to a monitor bed on selective. WBC count is 9.6 hemoglobin is 8.2. Elec trolytes are normal. BUN is 62 creatinine is 1.59, not receiving any Lasix today. And no plans to give him any Lasix today. Although his chest x-ray continues to show a small right-sided pleural effusion. And some mild component of CHF. Objective - Vital Signs Vital signs: Vital Signs Temp 97.6 F 05/14/19 04:00 Pulse 96 05/14/19 08:12 Resp 22 05/14/19 07:00 BP 117/68 05/14/19 07:00 Pulse Ox 97 05/14/19 07:59 Intake & Output 05/13/19 05/14/19 05/14/19 18:59 06:59 18:59 Intake Total 560 480 200 Output Total 1100 501 85 Balance -540 -21 115 Weight 90.1 kg 90.1 kg Intake: IV 160 30 0.9 KVO 110 30 DAPTOmycin 500 mg In 50 Sodium Chloride 0.9% 50 ml @ 100 mls/hr IVPB Q24H [facility] Rx#:[id number] Oral 400 450 200 Output: Urine 1100 501 85 Stool 0 Other: Voiding Method Indwelling Catheter Indwelling Catheter - Exam GENERAL EXAM: 79-year-old white male, on 2 L nasal cannula, in no distress. HEAD: Normocephalic/atraumatic. EYES: PERRLA, EOMI, neck tightness. NOSE: Clear with pink turbinates. THROAT: No erythema or exudates. NECK: No masses, no JVD, no thyroid enlargement, no adenopathy. CHEST: No chest wall deformity. Symmetrical expansion. LUNGS: Diminished breath sounds at the bases no crackles or rhonchi or wheezes. CVS: Regular rate and rhythm, normal S1 and S2, no gallops, no murmurs, no rubs ABDOMEN: Soft nontender no megaly no rebound no guarding, positive bowel sounds. EXTREMITIES: No clubbing, no cyanosis, pulses are only obtained by Doppler signal in the lower extremities and level of the dorsalis pedis and posterior tibialis. Amputation site is clean as the patient has an amputation of his fourth toe on the right. There is also dressing at the site of the debridement in the posterior calf area and the right. The wound was examined, seems to be fairly clean, rather deep. Neurologic: Alert oriented 3, no gross focal deficit. Psychiatric: Normal mood affect and normal mental status examination. - Labs CBC & Chem 7: 05/14/19 04:49 05/14/19 04:49 Labs: Abnormal Lab Results - Last 24 Hours (Table) 05/13/19 05/13/19 05/14/19 Range/Units 16:53 20:39 04:49 WBC (3.8-10.6) k/uL RBC (4.30-5.90) m/uL Hgb (13.0-17.5) gm/dL Hct (39.0-53.0) % MCHC (31.0-37.0) g/dL RDW (11.5-15.5) % Plt Count (150-450) k/uL Neutrophils # (Manual) (1.3-7.7) k/uL Monocytes # (Manual) (0-1.0) k/uL Metamyelocytes # (Man) (0) k/uL Myelocytes # (Manual) (0) k/uL Nucleated RBCs (0-0) /100 WBC Sodium 133 L (137-145) mmol/L Carbon Dioxide 21 L (22-30) mmol/L BUN 62 H (9-20) mg/dL Creatinine 1.59 H (0.66-1.25) mg/dL Glucose 159 H (74-99) mg/dL POC Glucose (mg/dL) 210 H 218 H (75-99) mg/dL Calcium 6.5 L (8.4-10.2) mg/dL Total Bilirubin 1.7 H (0.2-1.3) mg/dL AST 65 H (17-59) U/L ALT 105 H (21-72) U/L Alkaline Phosphatase 193 H (38-126) U/L Total Protein 5.2 L (6.3-8.2) g/dL Albumin 2.7 L (3.5-5.0) g/dL 05/14/19 05/14/19 05/14/19 Range/Units 04:49 07:11 11:54 WBC 96.6 H* (3.8-10.6) k/uL RBC 3.19 L (4.30-5.90) m/uL Hgb 8.2 L (13.0-17.5) gm/dL Hct 29.4 L (39.0-53.0) % MCHC 27.9 L (31.0-37.0) g/dL RDW 26.9 H (11.5-15.5) % Plt Count 452 H (150-450) k/uL Neutrophils # (Manual) 84.00 H (1.3-7.7) k/uL Monocytes # (Manual) 2.90 H (0-1.0) k/uL Metamyelocytes # (Man) 1.93 H (0) k/uL Myelocytes # (Manual) 5.80 H (0) k/uL Nucleated RBCs 16 H (0-0) /100 WBC Sodium (137-145) mmol/L Carbon Dioxide (22-30) mmol/L BUN (9-20) mg/dL Creatinine (0.66-1.25) mg/dL Glucose (74-99) mg/dL POC Glucose (mg/dL) 184 H 212 H (75-99) mg/dL Calcium (8.4-10.2) mg/dL Total Bilirubin (0.2-1.3) mg/dL AST (17-59) U/L ALT (21-72) U/L Alkaline Phosphatase (38-126) U/L Total Protein (6.3-8.2) g/dL Albumin (3.5-5.0) g/dL Microbiology - Last 24 Hours (Table) 05/08/19 13:20 Gram Stain - Final Foot - Right Wound Culture - Final Methicillin resist S. aureus 05/09/19 18:19 Anaerobic Culture - Final Leg - Right 05/12/19 17:20 Blood Culture - Preliminary Blood No Growth after 24 hours 05/12/19 17:11 Blood Culture - Preliminary Blood No Growth after 24 hours 05/08/19 14:45 Blood Culture - Preliminary Blood No Growth after 120 hours 05/08/19 12:01 Blood Culture - Preliminary Blood No Growth after 120 hours Assessment and Plan Assessment: Impression: 1 acute gangrene of right fourth toe, patient had severe peripheral vessel occlu sive disease, previous femoral popliteal endarterectomy and bovine graft. Cultures positive for MRSA, patient is on daptomycin as per infectious disease on the case. 2 acute leukocytosis, suspect underlying myeloproliferative disorder. 3 acute sepsis secondary to above. 4 Lactic acidosis secondary to ischemia of the right lower extremity 5 Chronic atrial fibrillation 6 Hypertension 7 Chronic anemia 8 Previous history of GI bleeding, 9 History of myeloproliferative disorder 10 Hyperlipidemia 11 History of gout 12 systolic congestive heart failure, acute. 13 acute exacerbation of COPD. Recommendation: continue antibiotics, continue IV Solu-Medrol for intermittent bronchospasm. Continue updrafts, hold diuretics, we will transfer the patient out of the ICU to a monitored bed on selective today. Discussed his condition and updated his daughter on his overall clinical status at bedside. Time with Patient: Less than 30
[2019-05-14] MEDS ORDERED: LACTULOSE 20 GM/30 ML CUP PO PRN (13:18)
--- NOTE | 2019-05-14 14:33 | P.PN ---
Subjective Progress Note Date: 05/14/19 Patient seen and examined at bedside, reports his pain is much better controlled today without any significant difficulty breathing Chest x-ray stable suggesting CHF with pneumonia not entirely ruled out. WBCs elevated up to 96.6 today stable hemoglobin 7.9g, patient's hypothermia has resolved. Creatinine is up today to 1.59 with elevated random vancomycin trough of 33. Patient having adequate stable urine output. I did receive a dose of Lasix yesterday Objective - Vital Signs Vital signs: Vital Signs Temp 97.6 F 05/14/19 04:00 Pulse 96 05/14/19 08:12 Resp 22 05/14/19 07:00 BP 117/68 05/14/19 07:00 Pulse Ox 97 05/14/19 07:59 Intake & Output 05/13/19 05/14/19 05/14/19 18:59 06:59 18:59 Intake Total 560 480 200 Output Total 1100 501 85 Balance -540 -21 115 Weight 90.1 kg 90.1 kg Intake: IV 160 30 0.9 KVO 110 30 DAPTOmycin 500 mg In 50 Sodium Chloride 0.9% 50 ml @ 100 mls/hr IVPB Q[facility]H [facility] Rx#:[id number] Oral 400 450 200 Output: Urine 1100 501 85 Stool 0 Other: Voiding Method Indwelling Catheter Indwelling Catheter - Exam Constitutional: No acute distress, conversant, pleasant Eyes: Anicteric sclerae, moist conjunctiva, no lid-lag, PERRLA ENMT: NC/AT,Oropharynx clear, no erythema, exudates Neck:Supple, FROM, no masses, or JVD, No carotid bruits; No thyromegaly Lungs: Scattered rhonchi and wheezes bilaterally Cardiovascular: Heart regular in rate and rhythm, No murmurs, gallops, or rubs no peripheral edema Abdominal: Soft Nontender, nom distended, no guarding, no rebound or rigidity, Normoactive bowel sounds No hepatomegaly, No splenomegaly, No palpable mass No abdominal wall hernia noted Skin: Normal temperature, tone, texture, turgor, No induration No subcutaneous nodules, No rash, lesions, No ulcers Extremities: Right lower extremity dressing removed incision on the medial side of the without any purulent drainage, with scant areas of skin breakdown at the edges and some on the lateral leg, right fourth toe wound without evidence of cellulitis or drainage Psychiatric: Alert and oriented to person, place and time, Appropriate affect Intact judgement Neuro: Muscles Strength 5/5 in all 4 extremities, Sensation to light touch grossly present throughout, Cranial nerves II-XII grossly intact. No focal sensory deficits - Labs CBC & Chem 7: 05/14/19 04:49 05/14/19 04:49 Labs: Abnormal Lab Results - Last 24 Hours (Table) 05/13/19 05/13/19 05/14/19 Range/Units 16:53 20:39 04:49 WBC (3.8-10.6) k/uL RBC (4.30-5.90) m/uL Hgb (13.0-17.5) gm/dL Hct (39.0-53.0) % MCHC (31.0-37.0) g/dL RDW (11.5-15.5) % Plt Count (150-450) k/uL Neutrophils # (Manual) (1.3-7.7) k/uL Monocytes # (Manual) (0-1.0) k/uL Metamyelocytes # (Man) (0) k/uL Myelocytes # (Manual) (0) k/uL Nucleated RBCs (0-0) /100 WBC Sodium 133 L (137-145) mmol/L Carbon Dioxide 21 L (22-30) mmol/L BUN 62 H (9-20) mg/dL Creatinine 1.59 H (0.66-1.25) mg/dL Glucose 159 H (74-99) mg/dL POC Glucose (mg/dL) 210 H 218 H (75-99) mg/dL Calcium 6.5 L (8.4-10.2) mg/dL Total Bilirubin 1.7 H (0.2-1.3) mg/dL AST 65 H (17-59) U/L ALT 105 H (21-72) U/L Alkaline Phosphatase 193 H (38-126) U/L Total Protein 5.2 L (6.3-8.2) g/dL Albumin 2.7 L (3.5-5.0) g/dL 05/14/19 05/14/19 05/14/19 Range/Units 04:49 07:11 11:54 WBC 96.6 H* (3.8-10.6) k/uL RBC 3.19 L (4.30-5.90) m/uL Hgb 8.2 L (13.0-17.5) gm/dL Hct 29.4 L (39.0-53.0) % MCHC 27.9 L (31.0-37.0) g/dL RDW 26.9 H (11.5-15.5) % Plt Count 452 H (150-450) k/uL Neutrophils # (Manual) 84.00 H (1.3-7.7) k/uL Monocytes # (Manual) 2.90 H (0-1.0) k/uL Metamyelocytes # (Man) 1.93 H (0) k/uL Myelocytes # (Manual) 5.80 H (0) k/uL Nucleated RBCs 16 H (0-0) /100 WBC Sodium (137-145) mmol/L Carbon Dioxide (22-30) mmol/L BUN (9-20) mg/dL Creatinine (0.66-1.25) mg/dL Glucose (74-99) mg/dL POC Glucose (mg/dL) 184 H 212 H (75-99) mg/dL Calcium (8.4-10.2) mg/dL Total Bilirubin (0.2-1.3) mg/dL AST (17-59) U/L ALT (21-72) U/L Alkaline Phosphatase (38-126) U/L Total Protein (6.3-8.2) g/dL Albumin (3.5-5.0) g/dL Microbiology - Last 24 Hours (Table) 05/08/19 12:01 Blood Culture - Final Blood No Growth after 144 hours 05/08/19 13:20 Gram Stain - Final Foot - Right Wound Culture - Final Methicillin resist S. aureus 05/09/19 18:19 Anaerobic Culture - Final Leg - Right 05/12/19 17:20 Blood Culture - Preliminary Blood No Growth after 24 hours 05/12/19 17:11 Blood Culture - Preliminary Blood No Growth after 24 hours 05/08/19 14:45 Blood Culture - Preliminary Blood No Growth after 120 hours Assessment and Plan Assessment: 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 severe PVD and occlusive disease Sepsis, possibly related to right lower extremity cellulitis worsening leukocytosis in the setting of infection Vancomycin-induced nephrotoxicity Oral thrush, resolved Acute on chronic systolic CHF exacerbation Hypocalcemia Acute kidney injury with metabolic acidosis, resolved Myeloproliferative disorder with leukocytosis CAD with recent RCA stent Atrial flutter Gout Bilateral upper extremity pain Lactic acidosis Patient with history of right lower extremity ischemia with common femoral severe occlusive disease status post right common femoral artery endarterectomy in March 2018. Unable to Doppler DP or PT pulse and right foot on 05/08, able to Doppler since. CTA aorta with runoff shows diffuse atheromatous changes with occlusion of the proximal right posterior tibial artery. Patient is POD 5 amputation of the R 4th toe and right debridement of R medical calf wound. Plans: Pain control with [place] or morphine as needed. Neurochecks and right lowe r extremity. Continue aspirin and Plavix. Follow vascular surgery recommendations. Patient with increased white count of 96.6 (05/13) from 31.3 (05/07), , tachycardic to 104 with lactic acid elevated at 4.4. Likely related to right lower extremity cellulitis. Urine culture negative. Blood culture 05/03 negative at 144 hours. Blood cultures 05/08 negative at 24H. Wound culture should MRSA. Plans: Currently off pressors. Continue D5 NaHCO3 at 50 mL per hour (decreased from 120 cc/h). Tylenol as needed for fever. Patient continued on daptomycin, discussed with Dr. Joseph. Follow blood culture negative, wound culture positive for MRSA. Follow infectious disease recommendations Vancomycin trough severely elevated with elevated creatinine since been discontinued in favor of daptomycin Chest x-ray suggesting stable CHF. Plans: Hold Lasix today. Hold spironolacton e. Continue metoprolol 25 mg by mouth TID. Strict intake and output take. Daily weight.. Follow cardiology consultation. DuoNeb four times a day scheduled and Solumedrol IV started by Pulmonology for possible bronchospasm. Calcium 6.2-6.5 x 2, 6.4, 6.2. Low vitamin D of 15.8. Plans: Daily CMP. Start calcium carbonate 500 mg by mouth twice a day. Repeat Ca gulconate 1g given today. Continue vitamin D 50,000 units weekly. Creatinine from 2.12-1.78-1.39-within normal limits. HCO3 21-35-62-51-19-15-within normal limits. Likely secondary to diuresis. Renal ultrasound shows abdominal ascites, no hydronephrosis or nephrolithiasis. Plans: Daily BMP. Avoid nephrotoxins. Follow nephrology consultation. Continue sodium bicarb by mouth. WBC count 35.6-41.2-35-31.3-68.6-63.3. Leukocytosis likely stress-induced and steroid induced. Gets weekly Procrit injections at Dr. Miller's office. Plan: Daily CBC. Procrit injections weekly. Start IV iron as per nephrology recommendations. Plan: Continue aspirin, Plavix and Lipitor. Metoprolol resumed. Plan: No anticoagulation due to recurrent GI bleeds. Continue amiodarone. Hold beta quan due to hypotension. Telemetry monitoring. Follow cardiology consult. Uric acid elevated at 16.9. Plans: DC Prednisone and start Solumedrol. Restart Allopurinol. Pain control with Tylenol or morphine. Follow PT recommendations. Bilateral upper extremity Dopplers suggestive of superficial venous thrombosis Lactic acid 4.4-2.1-2.5-2.8. Likely secondary to ischemia of the right foot An sepsisPlans: Continue IV antibiotics as above. resolved after IVF with NaHCO3 infusion. Patient admitted for sepsis due to right lower extremity cellulitis, ID on board. Concerns for ischemic necrosis of the R 4th toe, underwent amputation by Vascular surgery on 05/09, cultures pending on IV Antibiotics with ID on board. Cardiology on board for CHF exacerbation. Prognosis is very guarded. Disposition anticipated discharge in 1-2 days to [facility] for ongoing rehab, palliatiive care to follow. Stable for transfer to general medical floor approaching discharge goals. [place] will be discontinued today (1) Cellulitis of right lower extremity Current Visit: Yes Status: Acute Code(s): L03.115 - CELLULITIS OF RIGHT LOWER LIMB SNOMED Code(s): 474892582 (2) Acute kidney injury Current Visit: Yes Status: Resolved Code(s): N17.9 - ACUTE KIDNEY FAILURE, UNSPECIFIED SNOMED Code(s): 77463609 (3) Myeloproliferative disorder Current Visit: No Status: Chronic Code(s): D47.1 - CHRONIC MYE LOPROLIFERATIVE DISEASE SNOMED Code(s): 150585083 (4) Leukocytosis Current Visit: No Status: Chronic Priority: Medium Code(s): D72.829 - ELEVATED WHITE BLOOD CELL COUNT, UNSPECIFIED SNOMED Code(s): 523122235 (5) Hypotension Current Visit: Yes Status: Resolved Code(s): I95.9 - HYPOTENSION, UNSPECIFIED SNOMED Code(s): 54649555 (6) Hyperkalemia Current Visit: Yes Status: Resolved Code(s): E87.5 - HYPERKALEMIA SNOMED Code(s): 15227560 (7) Hyponatremia Current Visit: Yes Status: Resolved Code(s): E87.1 - HYPO-OSMOLALITY AND HYPONATREMIA SNOMED Code(s): 99196520 (8) Gout flare Current Visit: Yes Status: Resolved Code(s): M10.9 - GOUT, UNSPECIFIED SNOMED Code(s): 281932033
--- NOTE | 2019-05-14 16:28 | PN ---
PROGRESS NOTE DATE OF SERVICE: 05/14/2019. REASON FOR FOLLOWUP: Right fourth toe gangrene with MRSA infection. INTERVAL HISTORY: The patient is currently afebrile. The patient has been breathing comfortably. Patient denies having any chest pain. Occasional cough. No abdominal pain or diarrhea. Denies any worsening pain to the right foot area. PHYSICAL EXAMINATION: Blood pressure 117/68 with a pulse of 96, temperature 98. He is 97% on 2 L nasal cannula. General description is an elderly male lying in bed in no distress. RESPIRATORY SYSTEM: Unlabored breathing with decreased breath sounds at the base. No wheeze. HEART: S1, S2. Regular rate and rhythm. ABDOMEN: Soft. No tenderness. Right foot is currently dressed up. No obvious drainage on the dressing. LABS: Hemoglobin 8.2, white count 96.6, BUN of 52, creatinine 1.59. DIAGNOSTIC IMPRESSION AND PLAN: Patient with right fourth toe gangrene with superficial culture positive for methicillin-resistant Staphylococcus aeruginosa, though culture done at time of surgery has been methicillin-susceptible Staphylococcus aeruginosa. Blood cultures have been negative. Patient is currently covered with daptomycin because of jump in the creatinine from the vancomycin. Creatinine is currently stable. Will monitor clinical course closely. Continue with supportive care. MMODL / IJN: [id number] /
[2019-05-14 17:26] LABS: Glucose,Whole Blood 200 mg/dL (75-99)
[2019-05-14] MEDS: FUROSEMIDE 40 MG TAB PO SCH (17:55)
--- NOTE | 2019-05-14 18:45 | P.PN ---
Subjective Progress Note Date: 05/14/19 Principal diagnosis: Myeloproliferative Overall feeling better, increased peripheral swelling. Shortness of breath continued better sitting up Objective - Vital Signs Vital signs: Vital Signs Temp 97.7 F 05/14/19 12:00 Pulse 92 05/14/19 16:25 Resp 22 05/14/19 16:25 BP 95/69 05/14/19 16:00 Pulse Ox 97 05/14/19 12:00 Intake & Output 05/13/19 05/14/19 05/14/19 18:59 06:59 18:59 Intake Total 560 480 500 Output Total 1100 501 85 Balance -540 -21 415 Weight 90.1 kg 90.1 kg Intake: IV 160 30 0.9 KVO 110 30 DAPTOmycin 500 mg In 50 Sodium Chloride 0.9% 50 ml @ 100 mls/hr IVPB Q24H [facility] Rx#:[id number] Oral 400 450 500 Output: Urine 1100 501 85 Stool 0 Other: Voiding Method Indwelling Catheter Indwelling Catheter Indwelling Catheter # Voids 1 - Exam General: Alert and Oriented x3, No Acute Distress Head: Normocytic, Atraumatic Neck: Supple Mouth: No Lesions, No Thrush Eyes: Non-sclerotic No Palpable cervical, supraclavicular, axillary adenopathy Heart: Irreg, Irreg Lungs: Increased respiratory effort, coarse breath sounds Abdomen: firm, Distended, Non-Tended, Extremities: Peripheral Vascular abnormalities, evidence of surgical in tervention. BLE and BUE edema, +scrotal edema Neurological: No Focal Defects: No sensory or motor deficits noted Psych: Calm and cooperative - Labs CBC & Chem 7: 05/14/19 04:49 05/14/19 04:49 Labs: Abnormal Lab Results - Last 24 Hours (Table) 05/13/19 05/14/19 05/14/19 Range/Units 20:39 04:49 04:49 WBC 96.6 H* (3.8-10.6) k/uL RBC 3.19 L (4.30-5.90) m/uL Hgb 8.2 L (13.0-17.5) gm/dL Hct 29.4 L (39.0-53.0) % MCHC 27.9 L (31.0-37.0) g/dL RDW 26.9 H (11.5-15.5) % Plt Count 452 H (150-450) k/uL Neutrophils # (Manual) 84.00 H (1.3-7.7) k/uL Monocytes # (Manual) 2.90 H (0-1.0) k/uL Metamyelocytes # (Man) 1.93 H (0) k/uL Myelocytes # (Manual) 5.80 H (0) k/uL Nucleated RBCs 16 H (0-0) /100 WBC Sodium 133 L (137-145) mmol/L Carbon Dioxide 21 L (22-30) mmol/L BUN 62 H (9-20) mg/dL Creatinine 1.59 H (0.66-1.25) mg/dL Glucose 159 H (74-99) mg/dL POC Glucose (mg/dL) 218 H (75-99) mg/dL Calcium 6.5 L (8.4-10.2) mg/dL Total Bilirubin 1.7 H (0.2-1.3) mg/dL AST 65 H (17-59) U/L ALT 105 H (21-72) U/L Alkaline Phosphatase 193 H (38-126) U/L Total Protein 5.2 L (6.3-8.2) g/dL Albumin 2.7 L (3.5-5.0) g/dL 05/14/19 05/14/19 05/14/19 Range/Units 07:11 11:54 17:14 WBC (3.8-10.6) k/uL RBC (4.30-5.90) m/uL Hgb (13.0-17.5) gm/dL Hct (39.0-53.0) % MCHC (31.0-37.0) g/dL RDW (11.5-15.5) % Plt Count (150-450) k/uL Neutrophils # (Manual) (1.3-7.7) k/uL Monocytes # (Manual) (0-1.0) k/uL Metamyelocytes # (Man) (0) k/uL Myelocytes # (Manual) (0) k/uL Nucleated RBCs (0-0) /100 WBC Sodium (137-145) mmol/L Carbon Dioxide (22-30) mmol/L BUN (9-20) mg/dL Creatinine (0.66-1.25) mg/dL Glucose (74-99) mg/dL POC Glucose (mg/dL) 184 H 212 H 200 H (75-99) mg/dL Calcium (8.4-10.2) mg/dL Total Bilirubin (0.2-1.3) mg/dL AST (17-59) U/L ALT (21-72) U/L Alkaline Phosphatase (38-126) U/L Total Protein (6.3-8.2) g/dL Albumin (3.5-5.0) g/dL Microbiology - Last 24 Hours (Table) 05/08/19 14:45 Blood Culture - Final Blood No Growth after 144 hours 05/08/19 12:01 Blood Culture - Final Blood No Growth after 144 hours 05/08/19 13:20 Gram Stain - Final Foot - Right Wound Culture - Final Methicillin resist S. aureus 05/09/19 18:19 Anaerobic Culture - Final Leg - Right 05/12/19 17:20 Blood Culture - Preliminary Blood No Growth after 24 hours 05/12/19 17:11 Blood Culture - Preliminary Blood No Growth after 24 hours Assessment and Plan (1) Cellulitis of right lower extremity Current Visit: Yes Status: Acute Code(s): L03.115 - CELLULITIS OF RIGHT LOWER LIMB SNOMED Code(s): 116882991 (2) Atrial fibrillation Current Visit: No Status: Chronic Code(s): I48.91 - UNSPECIFIED ATRIAL FIBRILLATION SNOMED Code(s): 19309090 (3) JAK2 gene mutation Current Visit: No Status: Chronic Priority: Medium Code(s): Z15.89 - GE NETIC SUSCEPTIBILITY TO OTHER DISEASE SNOMED Code(s): 89728551 (4) Myelofibrosis Current Visit: No Status: Chronic Priority: Medium Code(s): D75.81 - MYELOFIBROSIS SNOMED Code(s): 02025456 Plan: Assessment and Recommendations: Leukocytosis: - Secondary to underlying myelofibrosis as well as exacerbated by acute infection and recent surgery - Monitor white count and differential daily Macrocytic Normo anemia acute on chronic - Secondary to underlying chronic disease and inflammation exacerbated with acute inflammation and recent surgery - Monitor daily CBC and transfuse for hemoglobin less than 7 - Receives Epogen 40K weekly, as outpatient, will continue, has been ordered by nephrology 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 Burk is a pleasant 79year old male patient well known to us for monitoring of his chronic anemia and myelofibrosis. He was recently weaned off of treatment with Jakafi as his disease appeared to stop responding. His most recent recommendations from a hematological standpoint was to have evaluation at [facility] in [place], transplant center for evaluation of other options. - Currently he is seen weekly and receives Epogen (Procrit 40K) injections for his anemia of consequence of his bone marrow disorder and treatment effect from Jakafi. - He has received numerous transfusions over the years related to the above, transfusion dependant status has improved on Epogen. - Monitoring, no current treatment with Jakafi at this time Atrial Fib - Unable to anticoagulate secondary to GI bleeding - Continue on prophylactic anticoagulation - Cardiology following Severe Coronary Artery and Peripheral Vascular Disease: -Cardiology Following - Continue to hold Xarelto at this time, May consider re-challenging anticoagualtion with another choice DOAC per cardiology - Plavix and ASA Recs per Cardiology Low Temperature: improved - Blood cultures x2 - Chest Xray From a hematology standpoint he is stable, his Increased WBC, no acute intervention
[2019-05-14 21:44] LABS: Glucose,Whole Blood 191 mg/dL (75-99)
[2019-05-15] MEDS: HYDROcodone/APAP 5-325MG 1 EACH TAB PO PRN ×2 (01:08→09:11)
[2019-05-15] MEDS: HEPARIN SODIUM,PORCINE 5,000 UNIT/ML 1 ML VIAL SQ SCH ×4 (01:10→23:14)
[2019-05-15] MEDS: methylPREDNISolone SOD SUCCI 40 MG/ML 1 ML VIAL IV SCH ×2 (01:10→06:41)
[2019-05-15] MEDS: MIDODRINE 5 MG TAB PO SCH ×3 (06:41→19:16)
[2019-05-15] MEDS: PANTOPRAZOLE 40 MG TABLET PO SCH (06:41)
[2019-05-15] MEDS: INSULIN ASPART (NovoLOG) 100 UNIT/ML VIAL SQ SCH ×4 (07:05→20:49)
[2019-05-15 07:10] LABS: Glucose,Whole Blood 132 mg/dL (75-99)
[2019-05-15] MEDS: IPRATROPIUM-ALBUTEROL 3 ML NEB INHALATION SCH ×4 (08:14→19:35)
[2019-05-15] MEDS: ASPIRIN 81 MG PO SCH (09:01)
[2019-05-15] MEDS: CLOPIDOGREL 75 MG TAB PO SCH (09:01)
[2019-05-15] MEDS: FUROSEMIDE 40 MG TAB PO SCH ×2 (09:01→15:31)
[2019-05-15] MEDS: ALLOPURINOL 100 MG TAB PO SCH (09:02)
[2019-05-15] MEDS: DOCUSATE 100 MG CAP PO SCH (09:02)
[2019-05-15] MEDS: CALCIUM CARBONATE 500 MG CHEWABLE PO SCH ×2 (09:02→20:49)
[2019-05-15] MEDS: POLYETHYLENE GLYCOL 3350 17 GM POWD.PACK PO SCH (09:02)
[2019-05-15] MEDS: NYSTATIN 100,000 UNIT/ML SUSP 500,000 UNIT/5 ML CUP PO SCH ×4 (09:02→20:50)
[2019-05-15] MEDS: METOPROLOL TARTRATE 25 MG TAB PO SCH ×3 (09:04→20:50)
[2019-05-15] MEDS: DAPTOmycin 500 MG in SODIUM CHLORIDE 0.9% 50 ML IVPB SCH (09:12)
[2019-05-15 09:58] LABS: Calcium 6.5 mg/dL (8.4-10.2); Potassium 3.6 mmol/L (3.5-5.1)
[2019-05-15] MEDS: MORPHINE SULFATE 2 MG/ML SYRINGE IVP PRN ×2 (11:40→23:14)
--- NOTE | 2019-05-15 11:44 | PN ---
PROGRESS NOTE Patient is seen for followup for acute kidney injury. This morning, patient is doing well. He denies any significant complaints. Overall, his volume status is slightly improved. The patient had developed acute kidney injury secondary to vancomycin toxicity for his most recent acute kidney injury. His creatinine has finally decreased to 1.4 from 1.59 yesterday. Vancomycin has been discontinued and patient is maintained on daptomycin. He is maintained on oral diuretics for significant edema and volume overload. PHYSICAL EXAMINATION: This morning, blood pressure was 106/56, heart rate of 80 per minute. Patient is afebrile. Examination of the heart, S1, S2. Examination of the lungs, decreased breath sounds at bases. Abdomen is soft, nontender. Examination of the lower extremities shows edema 2+ bilaterally. Right foot is currently wrapped. LABS: Show sodium 135, potassium 3.6, BUN 57, serum creatinine 1.4, calcium 6.1. ASSESSMENT: 1. Acute kidney injury. More recently secondary to vancomycin toxicity, currently improving. Patient is nonoliguric. 2. Previous episode of acute kidney injury secondary to hypotension, hypoperfusion which had improved. 3. Volume overload with significant third spacing. Continue with current dose of oral Lasix. The patient has had IV Lasix previously. His renal function is improving. Therefore, we can increase diureses if needed over the weekend. 4. Right lower extremity ischemia, status post CT angiogram. 5. Right fourth toe gangrene, status post right fourth toe amputation. 6. Infected wound gangrene and cellulitis. Wound cultures growing MRSA, maintained on vancomycin initially. Currently on daptomycin. Patient is being followed by ID. 7. Hypocalcemia secondary to nutrition vitamin D deficiency, maintained on calcium and vitamin D supplementation. 8. Chronic hypotension maintained on midodrine. Serum cortisol was not low. PLAN: Continue with oral Lasix. Continue to avoid nephrotoxic agents. Increase diuresis if needed over the weekend as renal function is improved. MMODL / IJN: [id number] /
--- NOTE | 2019-05-15 11:56 | P.PN ---
Subjective Progress Note Date: 05/15/19 Principal diagnosis: Severe peripheral vessel occlusive disease and right fourth toe gangrene, status post amputation and debridement of right medial calf wound This is a 79-year-old male patient with known history of extensive peripheral vascular disease with previous fem-pop arthrectomy and bovine patch insertion in addition to history of chronic atrial fibrillation was not been able to maintain on anticoagulation because of alcohol GI bleeding. The patient also known to have coronary artery disease, diastolic heart failure, hypertension and hyperlipidemia and gout. The patient came into the hospital yesterday because of an extensive right leg pain. The pain was mainly over the posterior aspect of his right callus and the patient also developed a bluish discoloration of the fourth toe. There was also some erythematous rash over the oh and over the anterior/medial thigh area where the vascular intervention was done earlier. On examination, the area is quite painful. The patient had a Doppler of the right lower x-ray that showed no evidence of any DVT. Pulses were obtained by Doppler signal in the popliteal dorsalis pedis and anterior tibialis. The patient is adequate femoral vein in the right groin area that was palpable. The patient is afebrile. The patient is hemodynamically stable. He was started on antibiotics for now. His cardiac rhythm remains in atrial fibrillation. The patient had a repeat echocardiogram today that showed severe pulmonary hypertension which has been noted on previous echocardiogram with a PA pressure estimated to be in the 90 mmHg range. He was furthermore found to have elevated uric acid level which probably is not related to this current presentation. The patient has underlying history of gout. The patient's current white count is 41.2. The patient has significant neutrophilia of 38%. The patient was started on accommodation Zosyn and vancomycin. The patient is on no pressors for now. Outpatient medications have been ordered resume. The primary cultures are negative for the past 24 hours. Reevaluated today on 05/11/2019, patient has multiple complaints including pain in both forearms, pain everywhere, shortness of breath, intermittent episodes of cough and wheezing, had similar symptoms yesterday, and he responded to Lasix. Continues to have leukocytosis, he underwent fourth toe amputation the day before yesterday, and he underwent debridement of the right medial calf wound. Patient remains on antibiotics in the form of vancomycin and cefepime, continues to have significant leukocytosis with WBC count of 75.5, hemoglobin is 7.3. Electrolytes were relatively normal bicarb is a bit low at 20. BUN is 44 creatinine is 1.06. Patient was reevaluated today on 05/12/2019, much more comfortable today compared to yesterday, less pain in forearms, Doppler was negative for deep vein thro mbosis. Patient continues to have leukocytosis, WBC count is up to 80,000, continues to have intermittent episodes of hypothermia requiring warming blanket. Continues to be on warm blanket this morning. Feels a bit more comfortable compared to yesterday. Remains on antibiotics. And that is vanc omycin and cefepime. Patient is to be seen by oncology on consultation for his leukemoid reaction. Reevaluated today on 05/13/2019, patient remains in the ICU, comfortable, hardly any pain, hardly any shortness of breath, feeling much better compared to how he felt over the last few days. His chest x-ray continues to show small right- sided pleural effusion, interval improvement noted in his overall volume status. And he continues to have some atelectasis in the right lower lobe. Pneumonia in the right lower lobe is not entirely ruled out, but felt to be less likely. Continues to have significant leukocytosis of 96.6 hemoglobin 7.9. Basic metabolic profile is normal BUN is 62 creatinine 1.50. Continues to be followed by nephrology for his acute kidney injury, vancomycin has been discontinued, patient has been receiving Lasix on a daily basis on when necessary basis, and his overall volume status is improving. Will be given 1 dose of Lasix today only. Reevaluated today on 05/14/2019, patient remains in the ICU, feeling much better, hardly any wheezing, hardly any shortness of breath, pain seems to be fairly well controlled, his surgical wounds have been addressed today by vascular surgery and felt that he has no surgical issues to be addressed at this point. His family is at bedside, I reviewed the chest x-ray with him and his family, and felt that the patient is actually improving with antibiotics and diuretics as well as bronchodilators, and I plan to transfer the patient out of the ICU today to a monitor bed on selective. WBC count is 9.6 hemoglobin is 8.2. Elec trolytes are normal. BUN is 62 creatinine is 1.59, not receiving any Lasix today. And no plans to give him any Lasix today. Although his chest x-ray continues to show a small right-sided pleural effusion. And some mild component of CHF. Reevaluated today on 05/15/2019, patient is presently overflow in the ICU, continues to do fairly well, better than expected. Hardly any shortness of breath, no cough no wheezing no fever no chills no hemoptysis no chest pain. Patient remains on broad-spectrum antibiotics, he is quite comfortable, being followed by many consultants including infectious disease and vascular surgery. Labs today showed improvement in his electrolytes, improvement in his renal profile with creatinine down to 1.41. Patient is being considered for possible rehabilitation replacement. I think that would be quite appropriate. I have switched her Solu-Medrol today to oral prednisone, and I will keep him on bronchodilators. Infectious disease to address antibiotics upon discharge. Objective - Vital Signs Vital signs: Vital Signs Temp 98 F 05/15/19 08:00 Pulse 78 05/15/19 11:45 Resp 19 05/15/19 10:00 BP 124/58 05/15/19 10:00 Pulse Ox 97 05/15/19 05:00 Intake & Output 05/14/19 05/15/19 05/15/19 18:59 06:59 18:59 Intake Total 500 200 Output Total 685 650 Balance -185 -450 Weight 90.1 kg 89.6 kg Intake: Oral 500 200 Output: Urine 685 650 Other: Voiding Method Indwelling Catheter Indwelling Catheter Urinal # Voids 1 - Exam GENERAL EXAM: 79-year-old white male, on 2 L nasal cannula, in no distress. HEAD: Normocephalic/atraumatic. EYES: PERRLA, EOMI, neck tightness. NOSE: Clear with pink turbinates. THROAT: No erythema or exudates. NECK: No masses, no JVD, no thyroid enlargement, no adenopathy. CHEST: No chest wall deformity. Symmetrical expansion. LUNGS: Diminished breath sounds at the bases no crackles or rhonchi or wheezes. CVS: Regular rate and rhythm, normal S1 and S2, no gallops, no murmurs, no rubs ABDOMEN: Soft nontender no megaly no rebound no guarding, positive bowel sounds. EXTREMITIES: No clubbing, no cyanosis, right lower extremity is wrapped with sterile dressing, allen boots were noted, leg wounds were not examined today. Neurologic: Alert oriented 3, no gross focal deficit. Psychiatric: Normal mood affect and normal mental status examination. - Labs CBC & Chem 7: 05/14/19 04:49 05/15/19 09:01 Labs: Abnormal Lab Results - Last 24 Hours (Table) 05/14/19 05/14/19 05/14/19 Range/Units 11:54 17:14 21:32 Sodium (137-145) mmol/L BUN (9-20) mg/dL Creatinine (0.66-1.25) mg/dL Glucose (74-99) mg/dL POC Glucose (mg/dL) 212 H 200 H 191 H (75-99) mg/dL Calcium (8.4-10.2) mg/dL 05/15/19 05/15/19 Range/Units 06:58 09:01 Sodium 135 L (137-145) mmol/L BUN 57 H (9-20) mg/dL Creatinine 1.41 H (0.66-1.25) mg/dL Glucose 140 H (74-99) mg/dL POC Glucose (mg/dL) 132 H (75-99) mg/dL Calcium 6.5 L (8.4-10.2) mg/dL Microbiology - Last 24 Hours (Table) 05/12/19 17:20 Blood Culture - Preliminary Blood No Growth after 48 hours 05/12/19 17:11 Blood Culture - Preliminary Blood No Growth after 48 hours 05/08/19 14:45 Blood Culture - Final Blood No Growth after 144 hours 05/08/19 12:01 Blood Culture - Final Blood No Growth after 144 hours 05/08/19 13:20 Gram Stain - Final Foot - Right Wound Culture - Final Methicillin resist S. aureus Assessment and Plan Assessment: Impression: 1 acute gangrene of right fourth toe, patient had severe peripheral vessel occlusive disease, previous femoral popliteal endarterectomy and bovine graft. Cultures positive for MRSA, patient is on daptomycin as per infectious disease on the case. 2 acute leukocytosis, suspect underlying myeloproliferative disorder. 3 acute sepsis secondary to above. 4 Lactic acidosis secondary to ischemia of the right lower extremity 5 Chronic atrial fibrillation 6 Hypertension 7 Chronic anemia 8 Previous history of GI bleeding, 9 History of myeloproliferative disorder 10 Hyperlipidemia 11 History of gout 12 systolic congestive heart failure, acute. 13 acute exacerbation of COPD. Recommendation: continue antibiotics, I switched Solu-Medrol to prednisone 10 mg twice a day, and that will be tapered down on outpatient basis. Continue updrafts, continue oral diuretics, pulmonary-will, the patient is cleared from my perspective for referral to rehab, however will need clearance from infectiou s disease and to address his antibiotics after discharge. Time with Patient: Less than 30
[2019-05-15 12:15] LABS: Glucose,Whole Blood 199 mg/dL (75-99)
--- NOTE | 2019-05-15 12:37 | P.PN ---
Subjective This is Mercy Gonzales PA-C dictating a progress note on this patient The patient was interviewed and examined by me IMPRESSION / ASSESSMENT: Persistent atrial fibrillation, rate controlled, not on anticoagulation due to history of GI bleeding Severe peripheral vascular disease status post right fourth toe amputation Hypertension Dyslipidemia Coronary artery disease Myelofibrosis HIREN PLAN: Continue dual antiplatelet therapy, anticoagulation not recommended due to history of GI bleeding and anemia Continue with metoprolol 25 mg 3 times a day for rate control Patient is on Lasix 40 mg twice a day, dosing and management per nephrology HPI/interval history Patient is a 79-year-old male with a past medical history of perisistnet atrial fibrillation,CAD, peripheral vascular disease, congestive heart failure,hypertension, dyslipidemia, and myelofibrosis who presented with a gangrenous toe requiring amputation. His blood pressure and heart rates have remained well controlled on metoprolol 25 mg 3 times a day. He reports a his tory of severe GI bleeding after being put on Xarelto over the summer therefore he is not currently on anticoagulation for his atrial fibrillation. He is resting comfortably in bed, does not appear to be in respiratory distress. Denies any chest pain or palpitations EXAMINATION Patient is afebrile, pulse 73, respirations 16, blood pressure 112/75, oxygen saturation 97% on room air Patient seen and examined resting in bed, appears comfortable, no acute distress Diffuse scattered rhonchi bilaterally Heart is irregular, systolic murmur appreciated 1+ pitting lower extremity edema as well as scrotal edema noted No elevated JVD REVIEW OF LABS, ECG WBC 96.6, hemoglobin 8.2, platelets 452, potassium 3.6, BUN 57, creatinine 1.41 Rhythm strips reveal atrial fibrillation with controlled ventricular response, T-wave inversions noted in the lateral precordial leads which are consistent and unchanged when compared to initial baseline EKGs Most recent echo showed normal LV size, mild concentric LVH, EF 50-55% Objective - Vital Signs Vital signs: Vital Signs Temp 98 F 05/15/19 08:00 Pulse 78 05/15/19 11:57 Resp 19 05/15/19 10:00 BP 124/58 05/15/19 10:00 Pulse Ox 97 05/15/19 05:00 Intake & Output 05/14/19 05/15/19 05/15/19 18:59 06:59 18:59 Intake Total 500 200 Output Total 685 650 Balance -185 -450 Weight 90.1 kg 89.6 kg Intake: Oral 500 200 Output: Urine 685 650 Other: Voiding Method Indwelling Catheter Indwelling Catheter Urinal # Voids 1 - Labs CBC & Chem 7: 05/14/19 04:49 05/15/19 09:01 Labs: Abnormal Lab Results - Last 24 Hours (Table) 05/14/19 05/14/19 05/15/19 Range/Units 17:14 21:32 06:58 Sodium (137-145) mmol/L BUN (9-20) mg/dL Creatinine (0.66-1.25) mg/dL Glucose (74-99) mg/dL POC Glucose (mg/dL) 200 H 191 H 132 H (75-99) mg/dL Calcium (8.4-10.2) mg/dL 05/15/19 05/15/19 Range/Units 09:01 12:03 Sodium 135 L (137-145) mmol/L BUN 57 H (9-20) mg/dL Creatinine 1.41 H (0.66-1.25) mg/dL Glucose 140 H (74-99) mg/dL POC Glucose (mg/dL) 199 H (75-99) mg/dL Calcium 6.5 L (8.4-10.2) mg/dL Microbiology - Last 24 Hours (Table) 05/12/19 17:20 Blood Culture - Preliminary Blood No Growth after 48 hours 05/12/19 17:11 Blood Culture - Preliminary Blood No Growth after 48 hours 05/08/19 14:45 Blood Culture - Final Blood No Growth after 144 hours 05/08/19 12:01 Blood Culture - Final Blood No Growth after 144 hours 05/08/19 13:20 Gram Stain - Final Foot - Right Wound Culture - Final Methicillin resist S. aureus
--- NOTE | 2019-05-15 13:11 | P.DS ---
Providers Date of admission: 05/03/19 15:53 Expected date of discharge: 05/15/19 Attending physician: Kris Cid MD Consults: 05/03/19 16:04 Consult Physician Routine Consulting Provider: David Matthews Consult Reason/Comments: ICU management Do you want consulting provider notified?: Already Contacted 05/03/19 16:23 Consult Physician Routine Consulting Provider: Dom Joseph Consult Reason/Comments: antibiotic guidance Do you want consulting provider notified?: Yes 05/03/19 16:24 Consult Physician Routine Consulting Provider: Brian Maddox Consult Reason/Comments: HIREN Do you want consulting provider notified?: Yes 05/04/19 09:54 Consult Physician Routine Consulting Provider: James Cline Consult Reason/Comments: embolic disease in right leg, sepsis Do you want consulting provider notified?: Yes 05/04/19 13:29 Consult Physician Routine Consulting Provider: Tiffany Pelayo Consult Reason/Comments: CHF exacerbation, A-FIb Do you want consulting provider notified?: Yes 05/10/19 13:47 Consult Physician Routine Consulting Provider: Armando Miller Consult Reason/Comments: known patient, abnormal CBC Do you want consulting provider notified?: Yes Primary care physician: Leon Franklin - Discharge Diagnosis(es) (1) Sepsis Current Visit: Yes Status: Acute (2) Gangrene of toe of right foot Current Visit: Yes Status: Acute (3) Cellulitis of right lower extremity Current Visit: Yes Status: Acute (4) Peripheral vascular disease Current Visit: No Status: Acute (5) Acute kidney injury Current Visit: Yes Status: Resolved (6) Myeloproliferative disorder Current Visit: No Status: Chronic (7) Leukocytosis Current Visit: No Status: Chronic Priority: Medium (8) Persistent atrial fibrillation Current Visit: Yes Status: Acute (9) Hypotension Current Visit: Yes Status: Resolved (10) Hyperkalemia Current Visit: Yes Status: Resolved (11) Hyponatremia Current Visit: Yes Status: Resolved (12) Gout flare Current Visit: Yes Status: Resolved (13) Acute diastolic CHF (congestive heart failure) Current Visit: Yes Status: Acute (14) JAK2 gene mutation Current Visit: No Status: Chronic Priority: Medium Hospital Course: The patient is a 79-year-old male with a past medical history of severe PVD with previous fem-pop R ectomy and bovine patch insertion, persistent A. fib not on anticoagulation due to history of GI bleed that was admitted with sepsis with acute kidney injury in the setting of her right lower extremity cellulitis with suspected acute gout flare after presenting with extensive right leg pain with erythematous rash over the oh and anterior medial thigh where his previous vascular intervention was done. The patient developed a bluish discoloration of the fourth toe. Lower extremity Dopplers was negative for DVT, pedal pulses were obtained only by Doppler signal. The patient was started on empiric IV antibiotics with vancomycin and Zosyn along with IV fluids for his acute kidney injury and electrolyte abnormalities. Vascular surgery was consulted Impression patient was determined to have a right fourth toe with infection consistent with severe PVD requiring amputation and excisional debridement of the right medial calf wound which was performed 05/09/19. ID was consulted and antibiotic regimen was optimized cefepime and vancomycin. The patient was noted to have increasing shortness of breath attributed to a acute diastolic CHF exacerbation superimposed on underlying COPD the patient was started on Lasix for diuresis along with steroids. Echocardiogram performed was consistent with severe pulmonary hypertension, and a preserved LVEF of 50-55%. The patient continued to have a persistent elevation of his white count which got as high as 96.6 and this was attributed to being multifactorial secondary to his underlying myelodysplastic disorder superimposed on acute infection, recent surgery and IV steroid use. The patient remained afebrile, antibiotics were discussed escalated he was continued on vancomycin and was noted to have some nephrotoxicity as his creatinine increased up to 1.59 in the setting of his extremely elevated vancomycin trough of 33. Vancomycin was discontinued in favor of daptomycin and the patient's creatinine stabilized Pertinent Studies: CT angiography of the right lower extremity 05/06/19 - diffuse atherosclerotic vascular disease with some hemodynamic stenosis of the proximal right femoral artery with diffuse plaque formation in the right femoral artery and popliteal artery. With hemodynamic stenosis in multiple segments of the mid and distal femoral artery and popliteal artery. Occlusive disease in the proximal right tibial artery Patient Condition at Discharge: Fair Plan - Discharge Summary Discharge Rx Participant: Yes New Discharge Prescriptions: New DAPTOmycin [Cubicin] 500 mg IV DAILY #10 bag Furosemide [Lasix] 40 mg PO BID@0900,1600 #60 tab Metoprolol Tartrate [Lopressor] 25 mg PO TID #90 tab Midodrine [ProAmatine] 10 mg PO AC-TID #90 tab Ergocalciferol [Vitamin D2 (DRISDOL)] 50,000 unit PO Q7D cap Continue Atorvastatin [Lipitor] 40 mg PO HS Aspirin 81 mg PO DAILY #30 chew Clopidogrel [Plavix] 75 mg PO DAILY #30 tab Pantoprazole Sodium [Protonix] 40 mg PO DAILY rOPINIRole HCL [Requip] 1 mg PO HS Allopurinol [Zyloprim] 100 mg PO DAILY Epoetin [place] [Procrit] 40,000 units IV WEEKLY Discontinued Spironolactone [Aldactone] 25 mg PO BID Metoprolol Tartrate [Lopressor] 50 mg PO BID Terazosin [Hytrin] 5 mg PO HS predniSONE 40 mg PO DAILY tab Amiodarone [Cordarone] 200 mg PO HS Furosemide [Lasix] 40 mg PO HS #30 tab Furosemide [Lasix] 60 mg PO DAILY #30 tab Naproxen [Naprosyn] 375 mg PO Q12HR #30 tablet Discharge Medication List Atorvastatin [Lipitor] 40 mg PO HS 09/27/14 [History] Aspirin 81 mg PO DAILY #30 chew 04/07/18 [Rx] Clopidogrel [Plavix] 75 mg PO DAILY #30 tab 04/07/18 [Rx] Pantoprazole Sodium [Protonix] 40 mg PO DAILY 07/14/18 [History] rOPINIRole HCL [Requip] 1 mg PO HS 02/12/19 [History] Allopurinol [Zyloprim] 100 mg PO DAILY 03/31/19 [History] Epoetin [place] [Procrit] 40,000 units IV WEEKLY 04/03/19 [History] DAPTOmycin [Cubicin] 500 mg IV DAILY #10 bag 05/15/19 [Rx] Ergocalciferol [Vitamin D2 (DRISDOL)] 50,000 unit PO Q7D cap 05/15/19 [Rx] Furosemide [Lasix] 40 mg PO BID@0900,1600 #60 tab 05/15/19 [Rx] Metoprolol Tartrate [Lopressor] 25 mg PO TID #90 tab 05/15/19 [Rx] Midodrine [ProAmatine] 10 mg PO AC-TID #90 tab 05/15/19 [Rx] Follow up Appointment(s)/Referral(s): Franklin,Leon, MD [Primary Care Provider] - 1-2 days Discharge Disposition: TRANSFER TO SNF/ECF
--- NOTE | 2019-05-15 14:30 | PN ---
PROGRESS NOTE DATE OF SERVICE: 05/15/2019 REASON FOR FOLLOW UP: Right fourth toe gangrene and right medial leg wound with both MSSA and MRSA infection. INTERVAL HISTORY: The patient is currently afebrile. Patient has been breathing comfortably. Patient's pain to the right leg is currently controlled. No chest pain. No cough. No abdominal pain. No diarrhea. PHYSICAL EXAMINATION: On examination, blood pressure 120/66, pulse of 87, temperature 98. General description is an elderly male lying in bed in no distress. RESPIRATORY SYSTEM: Unlabored breathing, clear to auscultation anteriorly. HEART: S1, S2. Regular rate and rhythm. ABDOMEN: Soft, no tenderness. Right middle leg wound with minimal slough. No surrounding redness, possibly drainage. The right fourth toe wound looks clean with some dried up blood, but no slough tissue or foul smelling drainage. LABS: BUN of 57, creatinine 1.41. DIAGNOSTIC IMPRESSION AND PLAN: Patient with right fourth toe gangrene, status post right amputation, also with wound on the right debridement. Cultures from the toe was MRSA, from the leg is MSSA. Patient currently on daptomycin because of the elevated creatinine nephrotoxicity. He will get a Midline. Continue with IV daptomycin at 500 mg daily for another 10 days. Local wound care to the right medial leg wound with Medihoney and the right fourth toe amputation site with Aquacel Silver dressing and monitor clinical course closely. Continue with supportive care. MMODL / IJN: [id number] /
[2019-05-15] MEDS ORDERED: LIDOCAINE 1% INJ 10MG/ML (20 ML MDV) SQ ONE (14:47)
--- NOTE | 2019-05-15 14:53 | P.PN ---
Subjective Progress Note Date: 05/15/19 Patient seen and examined at bedside, reports his pain is much better controlled today without any significant difficulty breathing , no acute events overnight. Objective - Vital Signs Vital signs: Vital Signs Temp 98 F 05/15/19 08:00 Pulse 87 05/15/19 13:00 Resp 22 05/15/19 13:00 BP 128/66 05/15/19 13:00 Pulse Ox 97 05/15/19 05:00 Intake & Output 05/14/19 05/15/19 05/15/19 18:59 06:59 18:59 Intake Total 500 200 20 Output Total 685 650 0 Balance -185 -450 20 Weight 90.1 kg 89.6 kg Intake: IV 20 0.9 KVO 20 Oral 500 200 Output: Urine 685 650 0 Other: Voiding Method Indwelling Catheter Indwelling Catheter Urinal # Voids 1 - Exam Constitutional: No acute distress, conversant, pleasant Eyes: Anicteric sclerae, moist conjunctiva, no lid-lag, PERRLA ENMT: NC/AT,Oropharynx clear, no erythema, exudates Neck:Supple, FROM, no masses, or JVD, No carotid bruits; No thyromegaly Lungs: Scattered rhonchi and wheezes bilaterally Cardiovascular: Heart regular in rate and rhythm, No murmurs, gallops, or rubs no peripheral edema Abdominal: Soft Nontender, nom distended, no guarding, no rebound or rigidity, Normoactive bowel sounds No hepatomegaly, No splenomegaly, No palpable mass No abdominal wall hernia noted Skin: Normal temperature, tone, texture, turgor, No induration No subcutaneous nodules, No rash, lesions, No ulcers Extremities: Right lower extremity dressing removed incision on the medial side of the without any purulent drainage, with scant areas of skin breakdown at the edges and some on the lateral leg, right fourth toe wound without evidence of cellulitis or drainage Psychiatric: Alert and oriented to person, place and time, Appropriate affect Intact judgement Neuro: Muscles Strength 5/5 in all 4 extremities, Sensation to light touch grossly present throughout, Cranial nerves II-XII grossly intact. No focal sensory deficits - Labs CBC & Chem 7: 05/14/19 04:49 05/15/19 09:01 Labs: Abnormal Lab Results - Last 24 Hours (Table) 05/14/19 05/14/19 05/15/19 Range/Units 17:14 21:32 06:58 Sodium (137-145) mmol/L BUN (9-20) mg/dL Creatinine (0.66-1.25) mg/dL Glucose (74-99) mg/dL POC Glucose (mg/dL) 200 H 191 H 132 H (75-99) mg/dL Calcium (8.4-10.2) mg/dL 05/15/19 05/15/19 Range/Units 09:01 12:03 Sodium 135 L (137-145) mmol/L BUN 57 H (9-20) mg/dL Creatinine 1.41 H (0.66-1.25) mg/dL Glucose 140 H (74-99) mg/dL POC Glucose (mg/dL) 199 H (75-99) mg/dL Calcium 6.5 L (8.4-10.2) mg/dL Microbiology - Last 24 Hours (Table) 05/12/19 17:20 Blood Culture - Preliminary Blood No Growth after 48 hours 05/12/19 17:11 Blood Culture - Preliminary Blood No Growth after 48 hours 05/08/19 14:45 Blood Culture - Final Blood No Growth after 144 hours 05/08/19 12:01 Blood Culture - Final Blood No Growth after 144 hours Assessment and Plan Assessment: 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 severe PVD and occlusive disease Sepsis, possibly related to right lower extremity cellulitis worsening leukocyt osis in the setting of infection Vancomycin-induced nephrotoxicity Oral thrush, resolved Acute on chronic systolic CHF exacerbation Hypocalcemia Acute kidney injury with metabolic acidosis, resolved Myeloproliferative disorder with leukocytosis CAD with recent RCA stent Atrial flutter Gout Bilateral upper extremity pain Lactic acidosis Patient with history of right lower extremity ischemia with common femoral severe occlusive disease status post right common femoral artery endarterectomy in March 2018. Unable to Doppler DP or PT pulse and right foot on 05/08, able to Doppler since. CTA aorta with runoff shows diffuse atheromatous changes with occlusion of the proximal right posterior tibial artery. Patient is POD 6 amputation of the R 4th toe and right debridement of R medical calf wound. Plans: Pain control with [place] or morphine as needed. Neurochecks and right lower extremity. Continue aspirin and Plavix. Follow vascular surgery recommendations. Patient with increased white count of 96.6 (05/13) from 31.3 (7/), , tachycardic to 104 with lactic acid elevated at 4.4. Likely related to right lower extremity cellulitis. Urine culture negative. Blood culture 05/03 negative at 144 hours. Blood cultures /5 negative at 24H. Wound culture should MRSA. Plans: Currently off pressors. Continue D5 NaHCO3 at 50 mL per hour (decreased from 120 cc/h). Tylenol as needed for fever. Patient continued on daptomycin, discussed with Dr. Joseph. Follow blood culture negative, wound culture positive for MRSA. Follow infectious disease recommendations Vancomycin trough severely elevated with elevated creatinine since been discontinued in favor of daptomycin Chest x-ray suggesting stable CHF. Plans: Hold Lasix today. Hold spironola ctone. Continue metoprolol 25 mg by mouth TID. Strict intake and output take. Daily weight.. Follow cardiology consultation. DuoNeb four times a day scheduled and Solumedrol IV started by Pulmonology for possible bronchospasm. Calcium 6.2-6.5 x 2, 6.4, 6.2. Low vitamin D of 15.8. Plans: Daily CMP. Start calcium carbonate 500 mg by mouth twice a day. Repeat Ca gulconate 1g given today. Continue vitamin D 50,000 units weekly. Creatinine from 2.12-1.78-1.39-within normal limits. HCO3 23-63-96-19-98-53-within normal limits. Likely secondary to diuresis. Renal ul trasound shows abdominal ascites, no hydronephrosis or nephrolithiasis. Plans: Daily BMP. Avoid nephrotoxins. Follow nephrology consultation. Continue sodium bicarb by mouth. WBC count 35.6-41.2-35-31.3-68.6-63.3. Leukocytosis likely stress-induced and steroid induced. Gets weekly Procrit injections at Dr. Miller's office. Plan: Daily CBC. Procrit injections weekly. Start IV iron as per nephrology recommendations. Plan: Continue aspirin, Plavix and Lipitor. Metoprolol resumed. Plan: No anticoagulation due to recurrent GI bleeds. Continue amiodarone. Hold beta quan due to hypotension. Telemetry monitoring. Follow cardiology consult. Uric acid elevated at 16.9. Plans: DC Prednisone and start Solumedrol. Restart Allopurinol. Pain control with Tylenol or morphine. Follow PT recommendations. Bilateral upper extremity Dopplers suggestive of superficial venous thrombosis Lactic acid 4.4-2.1-2.5-2.8. Likely secondary to ischemia of the right foot An sepsisPlans: Continue IV antibiotics as above. resolved after IVF with NaHCO3 infusion. Patient admitted for sepsis due to right lower extremity cellulitis, ID on board. Concerns for ischemic necrosis of the R 4th toe, underwent amputation by Vascular surgery on 05/09, cultures pending on IV Antibiotics with ID on board. Cardiology on board for CHF exacerbation. Prognosis is very guarded. Patient unable to go to [facility] today due to being on daptomycin, patient will have to stay here until Saturday for further placement options (1) Sepsis Current Visit: Yes Status: Acute Code(s): A41.9 - SEPSIS, UNSPECIFIED ORGANISM SNOMED Code(s): 30639908 (2) Gangrene of toe of right foot Current Visit: Yes Status: Acute Code(s): I96 - GANGRENE, NOT ELSEWHERE CLASSIFIED SNOMED Code(s): 99240318423577582 (3) Cellulitis of right lower extremity Current Visit: Yes Status: Acute Code(s): L03.115 - CELLULITIS OF RIGHT LOWER LIMB SNOMED Code(s): 689248844 (4) Peripheral vascular disease Current Visit: No Status: Acute Code(s): I73.9 - PERIPHERAL VASCULAR DI SEASE, UNSPECIFIED SNOMED Code(s): 933427214 (5) Acute kidney injury Current Visit: Yes Status: Resolved Code(s): N17.9 - ACUTE KIDNEY FAILURE, UNSPECIFIED SNOMED Code(s): 29251500 (6) Myeloproliferative disorder Current Visit: No Status: Chronic Code(s): D47.1 - CHRONIC MYELOPROLIFERATIVE DISEASE SNOMED Code(s): 044007020 (7) Leukocytosis Current Visit: No Status: Chronic Priority: Medium Code(s): D72.829 - ELEVATED WHITE BLOOD CELL COUNT, UNSPECIFIED SNOMED Code(s): 067682899 (8) Persistent atrial fibrillation Current Visit: Yes Status: Acute Code(s): I48.1 - PERSISTENT ATRIAL FIBRILLATION SNOMED Code(s): 717178019 (9) Hypotension Current Visit: Yes Status: Resolved Code(s): I95.9 - HYPOTENSION, UNSPECIFIED SNOMED Code(s): 23371984 (10) Hyperkalemia Current Visit: Yes Status: Resolved Code(s): E87.5 - HYPERKALEMIA SNOMED Code(s): 59445086 (11) Hyponatremia Current Visit: Yes Status: Resolved Code(s): E87.1 - HYPO-OSMOLALITY AND HYPONATREMIA SNOMED Code(s): 17450819 (12) Gout flare Current Visit: Yes Status: Resolved Code(s): M10.9 - GOUT, UNSPECIFIED SNOMED Code(s): 128405378 (13) Acute diastolic CHF (congestive heart failure) Current Visit: Yes Status: Acute Code(s): I50.31 - ACUTE DIASTOLIC (CONGESTIVE) HEART FAILURE SNOMED Code(s): 170198825 (14) JAK2 gene mutation Current Visit: No Status: Chronic Priority: Medium Code(s): Z15.89 - GENETIC SUSCEPTIBILITY TO OTHER DISEASE SNOMED Code(s): 11687780
--- NOTE | 2019-05-15 15:20 | XR ---
EXAMINATION TYPE: XR chest 1V confirm line [facility] DATE OF EXAM: 05/15/2019 COMPARISON: 05/14/2019 HISTORY: Shortness of breath TECHNIQUE: Single frontal view of the chest is obtained. FINDINGS: Heart is enlarged there is a diffuse interstitial pattern with bilateral consolidation and pleural effusion. Left-sided PICC line noted. Atherosclerotic change aorta. Arthropathy of the shoul ders. Biapical pleural thickening. IMPRESSION: 1. Correlate for CHF otherwise consider pneumonia 2. PICC line appears in good position.
--- NOTE | 2019-05-15 15:22 | IR ---
PICC LINE PLACEMENT: HISTORY: Infection requiring long-term antibiotic therapy PROCEDURE: Ultrasound guidance of PICC line placement. [employer] ASSEMBLER: Dr. Pereira. COMPLICATIONS: None ANESTHESIA: 1. 1% Lidocaine locally. FINDINGS/TECHNIQUE: The procedure was explained to the patient. The risks, complications, benefits and alternatives were discussed and any questions were answered. Informed consent was obtained. The patient was placed supine on the fluoroscopic table and prepped and draped in the usual sterile fas ion. Utilizing a 21 gauge needle and sonographic guidance, access in the left basilic vein was achi eved and there is placement of a 0.018 guidewire. The vein is patent. A 5-F. sheath was placed over the guidewire. The guidewire and dilator were removed and a 5-F. Double lumen PICC line was placed through the sheath with the chest x-ray confirming the tip at the level of the SVC. The sheath was r emoved, the catheter was flushed and sutured into position. The patient was stable throughout the pr ocedure and remained stable upon discharge from the Department of Radiology. The vein puncture was patent under ultrasound. A herbert scale image was obtained to document patency of the vein punctured. All elements of the maximal barrier technique were utilized. IMPRESSION: 1. Successful PICC line placement under ultrasound performed bedside within the ICU.
[2019-05-15] MEDS: predniSONE 10 MG TAB PO SCH ×2 (15:30→21:02)
[2019-05-15 17:04] LABS: Glucose,Whole Blood 229 mg/dL (75-99)
[2019-05-15 20:54] LABS: Glucose,Whole Blood 184 mg/dL (75-99)
[2019-05-16 07:09] LABS: Glucose,Whole Blood 147 mg/dL (75-99)
[2019-05-16] MEDS: PANTOPRAZOLE 40 MG TABLET PO SCH (07:11)
[2019-05-16] MEDS: INSULIN ASPART (NovoLOG) 100 UNIT/ML VIAL SQ SCH ×4 (07:11→21:15)
[2019-05-16] MEDS: MIDODRINE 5 MG TAB PO SCH ×3 (07:11→16:50)
[2019-05-16] MEDS: DOCUSATE 100 MG CAP PO SCH (08:06)
[2019-05-16] MEDS: ASPIRIN 81 MG PO SCH (08:06)
[2019-05-16] MEDS: CLOPIDOGREL 75 MG TAB PO SCH (08:06)
[2019-05-16] MEDS: CALCIUM CARBONATE 500 MG CHEWABLE PO SCH ×2 (08:06→21:13)
[2019-05-16] MEDS: FUROSEMIDE 40 MG TAB PO SCH ×2 (08:06→16:50)
[2019-05-16] MEDS: ALLOPURINOL 100 MG TAB PO SCH (08:06)
[2019-05-16] MEDS: METOPROLOL TARTRATE 25 MG TAB PO SCH ×3 (08:06→21:13)
[2019-05-16] MEDS: HEPARIN SODIUM,PORCINE 5,000 UNIT/ML 1 ML VIAL SQ SCH ×3 (08:07→23:38)
[2019-05-16] MEDS: POLYETHYLENE GLYCOL 3350 17 GM POWD.PACK PO SCH (08:07)
[2019-05-16] MEDS: NYSTATIN 100,000 UNIT/ML SUSP 500,000 UNIT/5 ML CUP PO SCH ×4 (08:07→21:15)
[2019-05-16] MEDS: predniSONE 10 MG TAB PO SCH (08:07)
[2019-05-16] MEDS: IPRATROPIUM-ALBUTEROL 3 ML NEB INHALATION SCH ×4 (08:29→20:00)
--- NOTE | 2019-05-16 10:05 | P.PN ---
Subjective Progress Note Date: 05/16/19 Principal diagnosis: Severe peripheral vessel occlusive disease and right fourth toe gangrene, status post amputation and debridement of right medial calf wound This is a 79-year-old male patient with known history of extensive peripheral vascular disease with previous fem-pop arthrectomy and bovine patch insertion in addition to history of chronic atrial fibrillation was not been able to maintain on anticoagulation because of alcohol GI bleeding. The patient also known to have coronary artery disease, diastolic heart failure, hypertension and hyperlipidemia and gout. The patient came into the hospital yesterday because of an extensive right leg pain. The pain was mainly over the posterior aspect of his right callus and the patient also developed a bluish discoloration of the fourth toe. There was also some erythematous rash over the oh and over the anterior/medial thigh area where the vascular intervention was done earlier. On examination, the area is quite painful. The patient had a Doppler of the right lower x-ray that showed no evidence of any DVT. Pulses were obtained by Doppler signal in the popliteal dorsalis pedis and anterior tibialis. The patient is adequate femoral vein in the right groin area that was palpable. The patient is afebrile. The patient is hemodynamically stable. He was started on antibiotics for now. His cardiac rhythm remains in atrial fibrillation. The patient had a repeat echocardiogram today that showed severe pulmonary hypertension which has been noted on previous echocardiogram with a PA pressure estimated to be in the 90 mmHg range. He was furthermore found to have elevated uric acid level which probably is not related to this current presentation. The patient has underlying history of gout. The patient's current white count is 41.2. The patient has significant neutrophilia of 38%. The patient was started on accommodation Zosyn and vancomycin. The patient is on no pressors for now. Outpatient medications have been ordered resume. The primary cultures are negative for the past 24 hours. Reevaluated today on 05/11/2019, patient has multiple complaints including pain in both forearms, pain everywhere, shortness of breath, intermittent episodes of cough and wheezing, had similar symptoms yesterday, and he responded to Lasix. Continues to have leukocytosis, he underwent fourth toe amputation the day before yesterday, and he underwent debridement of the right medial calf wound. Patient remains on antibiotics in the form of vancomycin and cefepime, continues to have significant leukocytosis with WBC count of 75.5, hemoglobin is 7.3. Electrolytes were relatively normal bicarb is a bit low at 20. BUN is 44 creatinine is 1.06. Patient was reevaluated today on 05/12/2019, much more comfortable today compared to yesterday, less pain in forearms, Doppler was negative for deep vein thro mbosis. Patient continues to have leukocytosis, WBC count is up to 80,000, continues to have intermittent episodes of hypothermia requiring warming blanket. Continues to be on warm blanket this morning. Feels a bit more comfortable compared to yesterday. Remains on antibiotics. And that is vanc omycin and cefepime. Patient is to be seen by oncology on consultation for his leukemoid reaction. Reevaluated today on 05/13/2019, patient remains in the ICU, comfortable, hardly any pain, hardly any shortness of breath, feeling much better compared to how he felt over the last few days. His chest x-ray continues to show small right- sided pleural effusion, interval improvement noted in his overall volume status. And he continues to have some atelectasis in the right lower lobe. Pneumonia in the right lower lobe is not entirely ruled out, but felt to be less likely. Continues to have significant leukocytosis of 96.6 hemoglobin 7.9. Basic metabolic profile is normal BUN is 62 creatinine 1.50. Continues to be followed by nephrology for his acute kidney injury, vancomycin has been discontinued, patient has been receiving Lasix on a daily basis on when necessary basis, and his overall volume status is improving. Will be given 1 dose of Lasix today only. Reevaluated today on 05/14/2019, patient remains in the ICU, feeling much better, hardly any wheezing, hardly any shortness of breath, pain seems to be fairly well controlled, his surgical wounds have been addressed today by vascular surgery and felt that he has no surgical issues to be addressed at this point. His family is at bedside, I reviewed the chest x-ray with him and his family, and felt that the patient is actually improving with antibiotics and diuretics as well as bronchodilators, and I plan to transfer the patient out of the ICU today to a monitor bed on selective. WBC count is 9.6 hemoglobin is 8.2. Elec trolytes are normal. BUN is 62 creatinine is 1.59, not receiving any Lasix today. And no plans to give him any Lasix today. Although his chest x-ray continues to show a small right-sided pleural effusion. And some mild component of CHF. Reevaluated today on 05/15/2019, patient is presently overflow in the ICU, continues to do fairly well, better than expected. Hardly any shortness of breath, no cough no wheezing no fever no chills no hemoptysis no chest pain. Patient remains on broad-spectrum antibiotics, he is quite comfortable, being followed by many consultants including infectious disease and vascular surgery. Labs today showed improvement in his electrolytes, improvement in his renal profile with creatinine down to 1.41. Patient is being considered for possible rehabilitation replacement. I think that would be quite appropriate. I have switched her Solu-Medrol today to oral prednisone, and I will keep him on bronchodilators. Infectious disease to address antibiotics upon discharge. Reevaluated today on 05/16/2019, patient remains in the ICU, continues to improve steadily. He is basically an overflow. Hardly any shortness of breath, no cough, no wheezing, no fever no chills, patient feels generally weak, but he is very comfortable. No aches or pains, remains on antibiotics, continues to have significant leukocytosis/has underlying myeloproliferative disorder. Electrolytes are normal renal profile is improving, his creatinine is down to 1.41 today. From 2.12 on admission. Objective - Vital Signs Vital signs: Vital Signs Temp 97.6 F 05/16/19 08:00 Pulse 87 05/16/19 08:39 Resp 26 H 05/16/19 08:00 BP 125/63 05/16/19 08:00 Pulse Ox 96 05/16/19 08:00 Intake & Output 05/15/19 05/16/19 05/16/19 18:59 06:59 18:59 Intake Total 20 160 Output Total 600 375 Balance -580 -215 Weight 90.1 kg Intake: IV 20 160 0.9 KVO 20 160 Output: Urine 600 375 Other: Voiding Method Urinal Urinal Urinal - Exam GENERAL EXAM: 79-year-old white male, on 2 L nasal cannula, in no distress. HEAD: Normocephalic/atraumatic. EYES: PERRLA, EOMI, neck tightness. NOSE: Clear with pink turbinates. THROAT: No erythema or exudates. NECK: No masses, no JVD, no thyroid enlargement, no adenopathy. CHEST: No chest wall deformity. Symmetrical expansion. LUNGS: Diminished breath sounds at the bases no crackles or rhonchi or wheezes. CVS: Regular rate and rhythm, normal S1 and S2, no gallops, no murmurs, no rubs ABDOMEN: Soft nontender no megaly no rebound no guarding, positive bowel sounds. EXTREMITIES: No clubbing, no cyanosis, right lower extremity is wrapped with sterile dressing, allen boots were noted, leg wounds were not examined today. Neurologic: Alert oriented 3, no gross focal deficit. Psychiatric: Normal mood affect and normal mental status examination. - Labs CBC & Chem 7: 05/14/19 04:49 05/15/19 09:01 Labs: Abnormal Lab Results - Last 24 Hours (Table) 05/15/19 05/15/19 05/15/19 Range/Units 12:03 16:53 20:42 POC Glucose (mg/dL) 199 H 229 H 184 H (75-99) mg/dL 05/16/19 Range/Units 06:58 POC Glucose (mg/dL) 147 H (75-99) mg/dL Microbiology - Last 24 Hours (Table) 05/12/19 17:20 Blood Culture - Preliminary Blood No Growth after 72 hours 05/12/19 17:11 Blood Culture - Preliminary Blood No Growth after 72 hours Assessment and Plan Assessment: Impression: 1 acute gangrene of right fourth toe, patient had severe peripheral vessel occlusive disease, previous femoral popliteal endarterectomy and bovine graft. Cultures positive for MRSA, patient is on daptomycin as per infectious disease on the case. 2 acute leukocytosis, underlying myeloproliferative disorder. 3 acute sepsis secondary to above. 4 Lactic acidosis secondary to ischemia of the right lower extremity 5 Chronic atrial fibrillation 6 Hypertension 7 Chronic anemia 8 Previous history of GI bleeding, 9 History of myeloproliferative disorder 10 Hyperlipidemia 11 History of gout 12 systolic congestive heart failure, acute. 13 acute exacerbation of COPD. Recommendation: continue antibiotics, decrease prednisone to 10 mg daily. Continue updrafts, continue oral diuretics, pulmonary-will, the patient is cl eared from my perspective for referral to rehab, however will need clearance from infectious disease and to address his antibiotics after discharge. Time with Patient: Less than 30
[2019-05-16] MEDS: DAPTOmycin 500 MG in SODIUM CHLORIDE 0.9% 50 ML IVPB SCH (12:01)
[2019-05-16 12:06] LABS: Glucose,Whole Blood 187 mg/dL (75-99)
--- NOTE | 2019-05-16 15:11 | P.PN ---
Subjective Progress Note Date: 05/16/19 Principal diagnosis: This is a 79-year-old male seen in consultation because of acute kidney injury from vancomycin. He was admitted with peripheral vascular disease right toe opal grene status post amputation and debridement. Continues to have shortness of breath but improved. No nausea vomiting diarrhea no abdominal pain Sitting in a chair comfortable. His creatinine has been improving, no labs are available today. Creatinine peaked to 2.12 on 05/03/2019, improved to 1.06 on 05/11/2019 and again had increasing creatinine to 1.59 on 05/14/2019 was down to 1.41 as of yesterday. Output has been documented 975 mL, vital signs are stable is afebrile Objective - Vital Signs Vital signs: Vital Signs Temp 97.9 F 05/16/19 13:00 Pulse 87 05/16/19 13:00 Resp 26 H 05/16/19 13:00 BP 127/73 05/16/19 13:00 Pulse Ox 96 05/16/19 13:00 Intake & Output 05/15/19 05/16/19 05/16/19 18:59 06:59 18:59 Intake Total 20 160 Output Total 600 375 Balance -580 -215 Weight 90.1 kg Intake: IV 20 160 0.9 KVO 20 160 Output: Urine 600 375 Other: Voiding Method Urinal Urinal Urinal # Voids 3 # Bowel Movements 1 On examination awake alert oriented comfortable. HEENT exam no JVP neck is supple no facial asymmetry Lungs are significant for occasional bilateral basal crackles. Heart sounds are unremarkable for any murmur rub gallop rhythm Abdomen soft nontender no organomegaly status masses Extremity exam was reveals mild edema right foot is bandaged. Neurologically awake alert oriented but generalized weakness - Labs CBC & Chem 7: 05/14/19 04:49 05/15/19 09:01 Labs: Abnormal Lab Results - Last 24 Hours (Table) 05/15/19 05/15/19 05/16/19 Range/Units 16:53 20:42 06:58 POC Glucose (mg/dL) 229 H 184 H 147 H (75-99) mg/dL 05/16/19 Range/Units 11:54 POC Glucose (mg/dL) 187 H (75-99) mg/dL Microbiology - Last 24 Hours (Table) 05/12/19 17:20 Blood Culture - Preliminary Blood No Growth after 72 hours 05/12/19 17:11 Blood Culture - Preliminary Blood No Growth after 72 hours Assessment and Plan Assessment: Patient 1. Acute kidney injury from hypotension and hypoperfusion which improved and then creatinine went up again secondary to vancomycin toxicity and is improving again. Creatinine is down to 1.41 from 1.59 yesterday 2. Volume overloaded with congestive heart failure. 3. Right leg ischemia with CTA. 4. Right fourth toe gangrene status post amputation with debridement Recommendation 1. Continue Lasix 40 twice a day by mouth. 2. Monitor labs. 3. Continue I and O's.
[2019-05-16 16:49] LABS: Glucose,Whole Blood 210 mg/dL (75-99)
[2019-05-16 20:53] LABS: Glucose,Whole Blood 215 mg/dL (75-99)
[2019-05-16] MEDS: MORPHINE SULFATE 2 MG/ML SYRINGE IVP PRN (21:13)
[2019-05-16 21:16] LABS: Glucose,Whole Blood 220 mg/dL (75-99)
[2019-05-16] MEDS: HYDROcodone/APAP 5-325MG 1 EACH TAB PO PRN (23:38)
[2019-05-17] MEDS: INSULIN ASPART (NovoLOG) 100 UNIT/ML VIAL SQ SCH ×4 (07:02→21:06)
[2019-05-17] MEDS: PANTOPRAZOLE 40 MG TABLET PO SCH (07:05)
[2019-05-17] MEDS: MIDODRINE 5 MG TAB PO SCH ×3 (07:05→18:42)
[2019-05-17 07:13] LABS: Glucose,Whole Blood 78 mg/dL (75-99)
[2019-05-17] MEDS: IPRATROPIUM-ALBUTEROL 3 ML NEB INHALATION SCH ×4 (08:13→19:45)
[2019-05-17] MEDS ORDERED: FUROSEMIDE 10 MG/ML 4 ML VIAL IV STA (08:20)
[2019-05-17] MEDS ORDERED: methylPREDNISolone SOD SUCCI 125 MG/2 ML VIAL IV STA (08:22)
--- NOTE | 2019-05-17 08:32 | P.PN ---
Subjective Progress Note Date: 05/17/19 Principal diagnosis: This is a 79-year-old male seen in consultation because of acute kidney injury from vancomycin. He was admitted with peripheral vascular disease right toe opal grene status post amputation and debridement. Continues to have shortness of breath, has significant edema. No nausea vomiting diarrhea no abdominal pain His creatinine has been improving, no labs are available for the last 2 days. Creatinine peaked to 2.12 on 05/03/2019, improved to 1.06 on 05/11/2019 and again had increasing creatinine to 1.59 on 05/14/2019 was down to 1.41 as of day before yesterday. Output has been documented 450 mL , vital signs are stable is afebrile Objective - Vital Signs Vital signs: Vital Signs Temp 97.9 F 05/17/19 04:00 Pulse 80 05/17/19 08:13 Resp 18 05/17/19 05:00 BP 112/65 05/17/19 04:00 Pulse Ox 95 05/17/19 05:00 Intake & Output 05/16/19 05/17/19 05/17/19 18:59 06:59 18:59 Intake Total 0 Output Total 450 Balance -450 Weight 89.9 kg Intake: IV 0 0.9 KVO 0 Output: Urine 450 Other: Voiding Method Urinal Urinal Urinal # Voids 3 1 # Bowel Movements 1 Examination he is awake alert oriented HEENT exam no JVP neck is supple no facial asymmetry Lungs are significant for bilateral wheezing and fine crackles Heart sounds are unremarkable for any murmur rub gallop Abdomen is soft nontender His scrotum is huge and swollen with edema He has significant edema 2+. Right foot is bandaged. Neurologically awake alert oriented but profoundly generalized weakness. - Labs CBC & Chem 7: 05/14/19 04:49 05/15/19 09:01 Labs: Abnormal Lab Results - Last 24 Hours (Table) 05/16/19 05/16/19 05/16/19 Range/Units 11:54 16:38 20:41 POC Glucose (mg/dL) 187 H 210 H 215 H (75-99) mg/dL 05/16/19 Range/Units 21:05 POC Glucose (mg/dL) 220 H (75-99) mg/dL Microbiology - Last 24 Hours (Table) 05/12/19 17:20 Blood Culture - Preliminary Blood No Growth after 96 hours 05/12/19 17:11 Blood Culture - Preliminary Blood No Growth after 96 hours Assessment and Plan Assessment: Patient 1. Acute kidney injury from hypotension and hypoperfusion which improved and then creatinine went up again secondary to vancomycin toxicity and is improving again. Creatinine is down from 1.59 on 05/14/2019, 21.41 as of 05/15/2019 2 days ago. Last today is pending 2. Volume overloaded with congestive heart failure, significant edema. 3. Right leg ischemia with CTA. 4. Right fourth toe gangrene status post amputation with debridement Recommendation 1. Increase Lasix 40 twice a day IV . 2. Monitor labs. 3. Continue I and O's.
--- NOTE | 2019-05-17 08:45 | XR ---
EXAMINATION TYPE: XR chest 1V portable DATE OF EXAM: 05/17/2019 COMPARISON: 05/15/2019 INDICATION: Short of breath TECHNIQUE: Single frontal view of the chest is obtained. FINDINGS: The heart size is upper limits normal. The pulmonary vasculature is slightly prominent. Bibasilar infiltrates are present, greater on the left. IMPRESSION: 1. Bibasilar infiltrates. Correlate for atelectasis or pneumonia. This is slightly improved from comp arison. Follow-up is recommended. 2. A right pleural effusion may be resolving.
[2019-05-17] MEDS: ALLOPURINOL 100 MG TAB PO SCH (09:01)
[2019-05-17] MEDS: ASPIRIN 81 MG PO SCH (09:01)
[2019-05-17] MEDS: HEPARIN SODIUM,PORCINE 5,000 UNIT/ML 1 ML VIAL SQ SCH ×3 (09:01→23:37)
[2019-05-17] MEDS: POLYETHYLENE GLYCOL 3350 17 GM POWD.PACK PO SCH (09:02)
[2019-05-17] MEDS: CALCIUM CARBONATE 500 MG CHEWABLE PO SCH ×2 (09:02→21:06)
[2019-05-17] MEDS: METOPROLOL TARTRATE 25 MG TAB PO SCH ×3 (09:03→21:06)
[2019-05-17] MEDS: DOCUSATE 100 MG CAP PO SCH (09:03)
[2019-05-17] MEDS: predniSONE 10 MG TAB PO SCH (09:03)
[2019-05-17] MEDS: FUROSEMIDE 10 MG/ML 4 ML VIAL IV SCH ×2 (09:04→18:43)
[2019-05-17] MEDS: CLOPIDOGREL 75 MG TAB PO SCH (09:05)
[2019-05-17 09:09] LABS: Anisocytosis Marked; HCT 29.4 % (39.0-53.0); HGB 8.5 gm/dL (13.0-17.5); Hypochromasia Marked; MCH 26.7 pg (25.0-35.0); MCHC 29.1 g/dL (31.0-37.0); MCV 91.7 fL (80.0-100.0); Macrocytosis Moderate; Microcytosis Slight; Platelet Count 299 k/uL (150-450); Poikilocytosis Marked
[2019-05-17 09:10] LABS: RDW 28.9 % (11.5-15.5)
[2019-05-17 09:21] LABS: Albumin 2.9 g/dL (3.5-5.0); Calcium 6.6 mg/dL (8.4-10.2); Potassium 3.7 mmol/L (3.5-5.1); Total Bilirubin 2.3 mg/dL (0.2-1.3); Total Protein 5.3 g/dL (6.3-8.2)
[2019-05-17 09:28] LABS: Band Neutrophils % 3 %; Metamyelocytes % 3 %; Myelocytes % 7 %; Neutrophils % (M) 84 %; Nucleated Red Blood Cells 18 /100 WBC (0-0); Promyelocytes % 1 %; Total Cells Counted 200
[2019-05-17 09:29] LABS: Blast Cells # (M) 0.71 k/uL (0); Eosinophils # (M) 0.71 k/uL (0-0.7); Lymphocytes # (M) 0.71 k/uL (1.0-4.8); Metamyelocytes # (M) 2.12 k/uL (0); Monocytes # (M) 1.42 k/uL (0-1.0); Myelocytes # (M) 4.96 k/uL (0); Promyelocytes # (M) 0.71 k/uL (0); WBC 70.8 k/uL (3.8-10.6)
[2019-05-17] MEDS: DAPTOmycin 500 MG in SODIUM CHLORIDE 0.9% 50 ML IVPB SCH (09:29)
[2019-05-17] MEDS: NYSTATIN 100,000 UNIT/ML SUSP 500,000 UNIT/5 ML CUP PO SCH ×4 (09:29→21:06)
[2019-05-17 09:31] LABS: Basophilic Stippling Present; Polychromasia Present; RBC Fragments Present
[2019-05-17 09:32] LABS: Ovalocytes Present
--- NOTE | 2019-05-17 11:02 | P.PN ---
Subjective Progress Note Date: 05/17/19 Principal diagnosis: Severe peripheral vessel occlusive disease and right fourth toe gangrene, status post amputation and debridement of right medial calf wound This is a 79-year-old male patient with known history of extensive peripheral vascular disease with previous fem-pop arthrectomy and bovine patch insertion in addition to history of chronic atrial fibrillation was not been able to maintain on anticoagulation because of alcohol GI bleeding. The patient also known to have coronary artery disease, diastolic heart failure, hypertension and hyperlipidemia and gout. The patient came into the hospital yesterday because of an extensive right leg pain. The pain was mainly over the posterior aspect of his right callus and the patient also developed a bluish discoloration of the fourth toe. There was also some erythematous rash over the oh and over the anterior/medial thigh area where the vascular intervention was done earlier. On examination, the area is quite painful. The patient had a Doppler of the right lower x-ray that showed no evidence of any DVT. Pulses were obtained by Doppler signal in the popliteal dorsalis pedis and anterior tibialis. The patient is adequate femoral vein in the right groin area that was palpable. The patient is afebrile. The patient is hemodynamically stable. He was started on antibiotics for now. His cardiac rhythm remains in atrial fibrillation. The patient had a repeat echocardiogram today that showed severe pulmonary hypertension which has been noted on previous echocardiogram with a PA pressure estimated to be in the 90 mmHg range. He was furthermore found to have elevated uric acid level which probably is not related to this current presentation. The patient has underlying history of gout. The patient's current white count is 41.2. The patient has significant neutrophilia of 38%. The patient was started on accommodation Zosyn and vancomycin. The patient is on no pressors for now. Outpatient medications have been ordered resume. The primary cultures are negative for the past 24 hours. Reevaluated today on 05/11/2019, patient has multiple complaints including pain in both forearms, pain everywhere, shortness of breath, intermittent episodes of cough and wheezing, had similar symptoms yesterday, and he responded to Lasix. Continues to have leukocytosis, he underwent fourth toe amputation the day before yesterday, and he underwent debridement of the right medial calf wound. Patient remains on antibiotics in the form of vancomycin and cefepime, continues to have significant leukocytosis with WBC count of 75.5, hemoglobin is 7.3. Electrolytes were relatively normal bicarb is a bit low at 20. BUN is 44 creatinine is 1.06. Patient was reevaluated today on 05/12/2019, much more comfortable today compared to yesterday, less pain in forearms, Doppler was negative for deep vein thro mbosis. Patient continues to have leukocytosis, WBC count is up to 80,000, continues to have intermittent episodes of hypothermia requiring warming blanket. Continues to be on warm blanket this morning. Feels a bit more comfortable compared to yesterday. Remains on antibiotics. And that is vanc omycin and cefepime. Patient is to be seen by oncology on consultation for his leukemoid reaction. Reevaluated today on 05/13/2019, patient remains in the ICU, comfortable, hardly any pain, hardly any shortness of breath, feeling much better compared to how he felt over the last few days. His chest x-ray continues to show small right- sided pleural effusion, interval improvement noted in his overall volume status. And he continues to have some atelectasis in the right lower lobe. Pneumonia in the right lower lobe is not entirely ruled out, but felt to be less likely. Continues to have significant leukocytosis of 96.6 hemoglobin 7.9. Basic metabolic profile is normal BUN is 62 creatinine 1.50. Continues to be followed by nephrology for his acute kidney injury, vancomycin has been discontinued, patient has been receiving Lasix on a daily basis on when necessary basis, and his overall volume status is improving. Will be given 1 dose of Lasix today only. Reevaluated today on 05/14/2019, patient remains in the ICU, feeling much better, hardly any wheezing, hardly any shortness of breath, pain seems to be fairly well controlled, his surgical wounds have been addressed today by vascular surgery and felt that he has no surgical issues to be addressed at this point. His family is at bedside, I reviewed the chest x-ray with him and his family, and felt that the patient is actually improving with antibiotics and diuretics as well as bronchodilators, and I plan to transfer the patient out of the ICU today to a monitor bed on selective. WBC count is 9.6 hemoglobin is 8.2. Elec trolytes are normal. BUN is 62 creatinine is 1.59, not receiving any Lasix today. And no plans to give him any Lasix today. Although his chest x-ray continues to show a small right-sided pleural effusion. And some mild component of CHF. Reevaluated today on 05/15/2019, patient is presently overflow in the ICU, continues to do fairly well, better than expected. Hardly any shortness of breath, no cough no wheezing no fever no chills no hemoptysis no chest pain. Patient remains on broad-spectrum antibiotics, he is quite comfortable, being followed by many consultants including infectious disease and vascular surgery. Labs today showed improvement in his electrolytes, improvement in his renal profile with creatinine down to 1.41. Patient is being considered for possible rehabilitation replacement. I think that would be quite appropriate. I have switched her Solu-Medrol today to oral prednisone, and I will keep him on bronchodilators. Infectious disease to address antibiotics upon discharge. Reevaluated today on 05/16/2019, patient remains in the ICU, continues to improve steadily. He is basically an overflow. Hardly any shortness of breath, no cough, no wheezing, no fever no chills, patient feels generally weak, but he is very comfortable. No aches or pains, remains on antibiotics, continues to have significant leukocytosis/has underlying myeloproliferative disorder. Electrolytes are normal renal profile is improving, his creatinine is down to 1.41 today. From 2.12 on admission. Reevaluated today on 05/17/2019, patient seems to be a bit worse today, complaining of cough wheezing shortness of breath. Chest x-ray is showing evidence of interstitial edema, possibility of pneumonia is not entirely ruled out, hence the patient was given Lasix, updraft treatment, Solu-Medrol 125 mg IV push, and his usual Lasix dose was increased to 40 mg IV push every 12 hours. His renal functioning is better today, BUN is 42 creatinine is 1.07. WBC count is 70.8 hemoglobin is 8.5. Patient is presently on overflow from medical floor. Objective - Vital Signs Vital signs: Vital Signs Temp 97.9 F 05/17/19 04:00 Pulse 78 05/17/19 08:33 Resp 18 05/17/19 05:00 BP 112/65 05/17/19 04:00 Pulse Ox 95 05/17/19 05:00 Intake & Output 05/16/19 05/17/19 05/17/19 18:59 06:59 18:59 Intake Total 0 Output Total 450 Balance -450 Weight 89.9 kg Intake: IV 0 0.9 KVO 0 Output: Urine 450 Other: Voiding Method Urinal Urinal Urinal # Voids 3 1 # Bowel Movements 1 - Exam GENERAL EXAM: 79-year-old white male, on 2 L nasal cannula, in no distress. HEAD: Normocephalic/atraumatic. EYES: PERRLA, EOMI, neck tightness. NOSE: Clear with pink turbinates. THROAT: No erythema or exudates. NECK: No masses, no JVD, no thyroid enlargement, no adenopathy. CHEST: No chest wall deformity. Symmetrical expansion. LUNGS: Crackles and rhonchi and wheezes noted bilaterally. CVS: Regular rate and rhythm, normal S1 and S2, no gallops, no murmurs, no rubs ABDOMEN: Soft nontender no megaly no rebound no guarding, positive bowel sounds. EXTREMITIES: No clubbing, no cyanosis, right lower extremity is wrapped with sterile dressing, Neurologic: Alert oriented 3, no gross focal deficit. Psychiatric: Normal mood affect and normal mental status examination. - Labs CBC & Chem 7: 05/17/19 08:52 05/17/19 08:52 Labs: Abnormal Lab Results - Last 24 Hours (Table) 05/16/19 05/16/19 05/16/19 Range/Units 11:54 16:38 20:41 WBC (3.8-10.6) k/uL RBC (4.30-5.90) m/uL Hgb (13.0-17.5) gm/dL Hct (39.0-53.0) % MCHC (31.0-37.0) g/dL RDW (11.5-15.5) % Blast Cells % % Neutrophils # (Manual) (1.3-7.7) k/uL Lymphocytes # (Manual) (1.0-4.8) k/uL Monocytes # (Manual) (0-1.0) k/uL Eosinophils # (Manual) (0-0.7) k/uL Metamyelocytes # (Man) (0) k/uL Myelocytes # (Manual) (0) k/uL Promyelocytes # (Man) (0) k/uL Blast Cells # (Man) (0) k/uL Nucleated RBCs (0-0) /100 WBC BUN (9-20) mg/dL POC Glucose (mg/dL) 187 H 210 H 215 H (75-99) mg/dL Calcium (8.4-10.2) mg/dL Total Bilirubin (0.2-1.3) mg/dL AST (17-59) U/L ALT (21-72) U/L Alkaline Phosphatase (38-126) U/L Total Protein (6.3-8.2) g/dL Albumin (3.5-5.0) g/dL 05/16/19 05/17/19 05/17/19 Range/Units 21:05 08:52 08:52 WBC 70.8 H* (3.8-10.6) k/uL RBC 3.20 L (4.30-5.90) m/uL Hgb 8.5 L (13.0-17.5) gm/dL Hct 29.4 L (39.0-53.0) % MCHC 29.1 L (31.0-37.0) g/dL RDW 28.9 H (11.5-15.5) % Blast Cells % 1 H* % Neutrophils # (Manual) 61.50 H (1.3-7.7) k/uL Lymphocytes # (Manual) 0.71 L (1.0-4.8) k/uL Monocytes # (Manual) 1.42 H (0-1.0) k/uL Eosinophils # (Manual) 0.71 H (0-0.7) k/uL Metamyelocytes # (Man) 2.12 H (0) k/uL Myelocytes # (Manual) 4.96 H (0) k/uL Promyelocytes # (Man) 0.71 H (0) k/uL Blast Cells # (Man) 0.71 H (0) k/uL Nucleated RBCs 18 H (0-0) /100 WBC BUN 42 H (9-20) mg/dL POC Glucose (mg/dL) 220 H (75-99) mg/dL Calcium 6.6 L (8.4-10.2) mg/dL Total Bilirubin 2.3 H (0.2-1.3) mg/dL AST 64 H (17-59) U/L ALT 81 H (21-72) U/L Alkaline Phosphatase 155 H (38-126) U/L Total Protein 5.3 L (6.3-8.2) g/dL Albumin 2.9 L (3.5-5.0) g/dL Microbiology - Last 24 Hours (Table) 05/12/19 17:20 Blood Culture - Preliminary Blood No Growth after 96 hours 05/12/19 17:11 Blood Culture - Preliminary Blood No Growth after 96 hours Assessment and Plan Assessment: Impression: 1 acute gangrene of right fourth toe, patient had severe peripheral vessel occlusive disease, previous femoral popliteal endarterectomy and bovine graft. Cultures positive for MRSA, patient is on daptomycin as per infectious disease on the case. 2 acute leukocytosis, underlying myeloproliferative disorder. 3 acute sepsis secondary to above. 4 Lactic acidosis secondary to ischemia of the right lower extremity, resolved. 5 Chronic atrial fibrillation 6 Hypertension 7 Chronic anemia 8 Previous history of GI bleeding, 9 History of myeloproliferative disorder 10 Hyperlipidemia 11 History of gout 12 acute and recurrent systolic congestive heart failure. Today the patient was given an extra dose of Lasix. 13 acute exacerbation of COPD. patient is on bronchodilators, steroids, I did cut down the dose to 10 mg daily, may have to increase the dose of the patient continues to have symptoms of wheezing. However today he was given 1 dose of Solu-Medrol 125 mg IV push times one. Recommendation: continue antibiotics, increased diuretics, continue b ronchodilators, keep prednisone presently at 10 mg daily, may consider increasing the dose of the patient continues to have symptoms of COPD exacerbation. Discussed his condition with nephrology on the case, Lasix was increased, chest x-ray was reviewed. Again long-term prognosis remains poor and guarded. Time with Patient: Less than 30
--- NOTE | 2019-05-17 11:28 | P.PN ---
Subjective Progress Note Date: 05/17/19 Patient seen and examined at bedside, apparently was very dyspneic earlier today, patient sounded volume overloaded on his lung exam and preferably and was given Lasix and a dose of IV steroids by pulmonary. blasts are also noted on the patient's differential hematology notified Objective - Vital Signs Vital signs: Vital Signs Temp 97.9 F 05/17/19 08:00 Pulse 78 05/17/19 08:33 Resp 26 H 05/17/19 08:00 BP 112/65 05/17/19 08:00 Pulse Ox 95 05/17/19 08:00 Intake & Output 05/16/19 05/17/19 05/17/19 18:59 06:59 18:59 Intake Total 0 Output Total 450 Balance -450 Weight 89.9 kg Intake: IV 0 0.9 KVO 0 Output: Urine 450 Other: Voiding Method Urinal Urinal Urinal # Voids 3 1 # Bowel Movements 1 - Exam Constitutional: No acute distress, conversant, pleasant Eyes: Anicteric sclerae, moist conjunctiva, no lid-lag, PERRLA ENMT: NC/AT,Oropharynx clear, no erythema, exudates Neck:Supple, FROM, no masses, or JVD, No carotid bruits; No thyromegaly Lungs: Diminished in the bases bibasilar crackles Cardiovascular: Heart regular in rate and rhythm, No murmurs, gallops, or rubs +2 peripheral pitting edema on the left lower extremity Abdominal: Soft Nontender, nom distended, no guarding, no rebound or rigidity, Normoactive bowel sounds No hepatomegaly, No splenomegaly, No palpable mass No abdominal wall hernia noted Skin: Normal temperature, tone, texture, turgor, No induration No subcutaneous nodules, No rash, lesions, No ulcers Extremities: Right lower extremity dressing removed incision on the medial side of the without any purulent drainage, with scant areas of skin breakdown at the edges and some on the lateral leg, right fourth toe wound without evidence of cellulitis or drainage Psychiatric: Alert and oriented to person, place and time, Appropriate affect Intact judgement Neuro: Muscles Strength 5/5 in all 4 extremities, Sensation to light touch grossly present throughout, Cranial nerves II-XII grossly intact. No focal sensory deficits - Labs CBC & Chem 7: 05/17/19 08:52 05/17/19 08:52 Labs: Abnormal Lab Results - Last 24 Hours (Table) 05/16/19 05/16/19 05/16/19 Range/Units 11:54 16:38 20:41 WBC (3.8-10.6) k/uL RBC (4.30-5.90) m/uL Hgb (13.0-17.5) gm/dL Hct (39.0-53.0) % MCHC (31.0-37.0) g/dL RDW (11.5-15.5) % Blast Cells % % Neutrophils # (Manual) (1.3-7.7) k/uL Lymphocytes # (Manual) (1.0-4.8) k/uL Monocytes # (Manual) (0-1.0) k/uL Eosinophils # (Manual) (0-0.7) k/uL Metamyelocytes # (Man) (0) k/uL Myelocytes # (Manual) (0) k/uL Promyelocytes # (Man) (0) k/uL Blast Cells # (Man) (0) k/uL Nucleated RBCs (0-0) /100 WBC BUN (9-20) mg/dL POC Glucose (mg/dL) 187 H 210 H 215 H (75-99) mg/dL Calcium (8.4-10.2) mg/dL Total Bilirubin (0.2-1.3) mg/dL AST (17-59) U/L ALT (21-72) U/L Alkaline Phosphatase (38-126) U/L Total Protein (6.3-8.2) g/dL Albumin (3.5-5.0) g/dL 05/16/19 05/17/19 05/17/19 Range/Units 21:05 08:52 08:52 WBC 70.8 H* (3.8-10.6) k/uL RBC 3.20 L (4.30-5.90) m/uL Hgb 8.5 L (13.0-17.5) gm/dL Hct 29.4 L (39.0-53.0) % MCHC 29.1 L (31.0-37.0) g/dL RDW 28.9 H (11.5-15.5) % Blast Cells % 1 H* % Neutrophils # (Manual) 61.50 H (1.3-7.7) k/uL Lymphocytes # (Manual) 0.71 L (1.0-4.8) k/uL Monocytes # (Manual) 1.42 H (0-1.0) k/uL Eosinophils # (Manual) 0.71 H (0-0.7) k/uL Metamyelocytes # (Man) 2.12 H (0) k/uL Myelocytes # (Manual) 4.96 H (0) k/uL Promyelocytes # (Man) 0.71 H (0) k/uL Blast Cells # (Man) 0.71 H (0) k/uL Nucleated RBCs 18 H (0-0) /100 WBC BUN 42 H (9-20) mg/dL POC Glucose (mg/dL) 220 H (75-99) mg/dL Calcium 6.6 L (8.4-10.2) mg/dL Total Bilirubin 2.3 H (0.2-1.3) mg/dL AST 64 H (17-59) U/L ALT 81 H (21-72) U/L Alkaline Phosphatase 155 H (38-126) U/L Total Protein 5.3 L (6.3-8.2) g/dL Albumin 2.9 L (3.5-5.0) g/dL Microbiology - Last 24 Hours (Table) 05/12/19 17:20 Blood Culture - Preliminary Blood No Growth after 96 hours 05/12/19 17:11 Blood Culture - Preliminary Blood No Growth after 96 hours Assessment and Plan Assessment: 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 severe PVD and occlusive disease Sepsis, possibly related to right lower extremity cellulitis worsening leukocytosis in the setting of infection Vancomycin-induced nephrotoxicity Oral thrush, resolved Acute on chronic systolic CHF exacerbation Hypocalcemia Acute kidney injury with metabolic acidosis, resolved Myeloproliferative disorder with leukocytosis CAD with recent RCA stent Atrial flutter Gout Bilateral upper extremity pain Lactic acidosis Patient with history of right lower extremity ischemia with common femoral severe occlusive disease status post right common femoral artery endarterectomy in March 2018. Unable to Doppler DP or PT pulse and right foot on 05/08, able to Doppler since. CTA aorta with runoff shows diffuse atheromatous changes with occlusion of the proximal right posterior tibial artery. Patient is POD 6 amputation of the R 4th toe and right debridement of R medical calf wound. Plans: Pain control with [place] or morphine as needed. Neurochecks and right lower extremity. Continue aspirin and Plavix. Follow vascular surgery recommendations. Patient with increased white count of 96.6 (05/13) from 31.3 (7/), , tachycardic to 104 with lactic acid elevated at 4.4. Likely related to right lower extremity cellulitis. Urine culture negative. Blood culture 05/03 negative at 144 hours. Blood cultures / negative at 24H. Wound culture should MRSA. Plans: Currently off pressors. Continue D5 NaHCO3 at 50 mL per hour (decreased from 120 cc/h). Tylenol as needed for fever. Patient continued on daptomycin, discussed with Dr. Joseph. Follow blood culture negative, wound culture positive for MRSA. Follow infectious disease recommendations Vancomycin trough severely elevated with elevated creatinine since been discontinued in favor of daptomycin Chest x-ray suggesting stable CHF. Plans: IV Lasix today 1 and continue Lasix 40 mg by mouth twice a day Hold spironolactone. Continue metoprolol 25 mg by mouth TID. Strict intake and output take. Daily weight.. Follow cardiology consultation. DuoNeb four times a day scheduled and Solumedrol IV started by Pulmonology for possible bronchospasm. Calcium 6.2-6.5 x 2, 6.4, 6.2. Low vitamin D of 15.8. Plans: Daily CMP. Start calcium carbonate 500 mg by mouth twice a day. Repeat Ca gulconate 1g given today. Continue vitamin D 50,000 units weekly. Creatinine from 2.12-1.78-1.39-within normal limits. HCO3 11-79-31-28-39-42-within normal limits. Likely secondary to diuresis. Renal ultrasound shows abdominal ascites, no hydronephrosis or nephrolithiasis. Plans: Daily BMP. Avoid nephrotoxins. Follow nephrology consultation. Continue sodium bicarb by mouth. WBC count 35.6-41.2-35-31.3-68.6-63.3. Leukocytosis likely stress-induced and steroid induced. Gets weekly Procrit injections at Dr. Miller's office. Plan: Daily CBC. Procrit injections weekly. Start IV iron as per nephrology recommendations. Plan: Continue aspirin, Plavix and Lipitor. Metoprolol resumed. Plan: No anticoagulation due to recurrent GI bleeds. Continue amiodarone. Hold beta quan due to hypotension. Telemetry monitoring. Follow cardiology consult. Uric acid elevated at 16.9. Plans: DC Prednisone and start Solumedrol. Restart Allopurinol. Pain control with Tylenol or morphine. Follow PT recommendations. Bilateral upper extremity Dopplers suggestive of superficial venous thrombosis Lactic acid 4.4-2.1-2.5-2.8. Likely secondary to ischemia of the right foot An sepsisPlans: Continue IV antibiotics as above. resolved after IVF with NaHCO3 infusion. Patient admitted for sepsis due to right lower extremity cellulitis, ID on board. Concerns for ischemic necrosis of the R 4th toe, underwent amputation by Vascular surgery on 05/09, cultures pending on IV Antibiotics with ID on board. Cardiology on board for CHF exacerbation. Prognosis is very guarded. Patient unable to go to [facility] today due to being on daptomycin, patient will have to stay here until Saturday for further placement options (1) Sepsis Current Visit: Yes Status: Acute Code(s): A41.9 - SEPSIS, UNSPECIFIED ORGANISM SNOMED Code(s): 32496962 (2) Gangrene of toe of right foot Current Visit: Yes Status: Acute Code(s): I96 - GANGRENE, NOT ELSEWHERE CLASSIFIED SNOMED Code(s): 99151088008866351 (3) Cellulitis of right lower extremity Current Visit: Yes Status: Acute Code(s): L03.115 - CELLULITIS OF RIGHT LOWER LIMB SNOMED Code(s): 084497787 (4) Peripheral vascular disease Current Visit: No Status: Acute Code(s): I73.9 - PERIPHERAL VASCULAR DISEASE, UNSPECIFIED SNOMED Code(s): 751210802 (5) Acute kidney injury Current Visit: Yes Status: Resolved Code(s): N17.9 - ACUTE KIDNEY FAILURE, UNSPECIFIED SNOMED Code(s): 63165107 (6) Myeloproliferative disorder Current Visit: No Status: Chronic Code(s): D47.1 - CHRONIC MYELOPROLIFERATIVE DISEASE SNOMED Code(s): 690382589 (7) Leukocytosis Current Visit: No Status: Chronic Priority: Medium Code(s): D72.829 - ELEVATED WHITE BLOOD CELL COUNT, UNSPECIFIED SNOMED Code(s): 711191049 (8) Persistent atrial fibrillation Current Visit: Yes Status: Acute Code(s): I48.1 - PERSISTENT ATRIAL FIBRILLATION SNOMED Code(s): 768877596 (9) Hypotension Current Visit: Yes Status: Resolved Code(s): I95.9 - HYPOTENSION, UNSPECIFIED SNOMED Code(s): 75624765 (10) Hyperkalemia Current Visit: Yes Status: Resolved Code(s): E87.5 - HYPERKALEMIA SNOMED Code(s): 58152901 (11) Hyponatremia Current Visit: Yes Status: Resolved Code(s): E87.1 - HYPO-OSMOLALITY AND HYPONATREMIA SNOMED Code(s): 95817339 (12) Gout flare Current Visit: Yes Status: Resolved Code(s): M10.9 - GOUT, UNSPECIFIED SNOMED Code(s): 070268553 (13) Acute diastolic CHF (congestive heart failure) Current Visit: Yes Status: Acute Code(s): I50.31 - ACUTE DIASTOLIC (CONGESTIVE) HEART FAILURE SNOMED Code(s): 084676069 (14) JAK2 gene mutation Current Visit: No Status: Chronic Priority: Medium Code(s): Z15.89 - GENETIC SUSCEPTIBILITY TO OTHER DISEASE SNOMED Code(s): 76686406
[2019-05-17 12:10] LABS: Glucose,Whole Blood 104 mg/dL (75-99)
--- NOTE | 2019-05-17 13:07 | P.PN ---
Subjective Progress Note Date: 05/16/19 On the patient has significant generalized weakness. He has persistent lower extremity swelling. He is, however improved, compared to admission. No obvious bleeding noted. Objective - Vital Signs Vital signs: Vital Signs Temp 97.9 F 05/17/19 08:00 Pulse 87 05/17/19 11:51 Resp 26 H 05/17/19 08:00 BP 112/65 05/17/19 08:00 Pulse Ox 95 05/17/19 08:00 Intake & Output 05/16/19 05/17/19 05/17/19 18:59 06:59 18:59 Intake Total 0 Output Total 450 Balance -450 Weight 89.9 kg Intake: IV 0 0.9 KVO 0 Output: Urine 450 Other: Voiding Method Urinal Urinal Urinal # Voids 3 1 # Bowel Movements 1 - Constitutional General appearance: Present: no acute distress - EENT Eyes: Present: EOMI ENT: Present: hearing grossly normal, normal oropharynx - Respiratory Respiratory: right: diminished, rales - Cardiovascular Rhythm: irregularly irregular Heart sounds: normal: S1, S2 - Gastrointestinal General gastrointestinal: Present: normal bowel sounds, soft - Integumentary Integumentary Comment(s): Thin skin, scattered bruising - Neurologic Neurologic: Present: CNII-XII intact - Musculoskeletal Musculoskeletal Comment(s): Right lower extremity below knee, and foot bandaged Musculoskeletal: Present: generalized weakness, strength equal bilaterally - Psychiatric Psychiatric: Present: A&O x's 3, appropriate affect - Labs CBC & Chem 7: 05/17/19 08:52 05/17/19 08:52 Labs: Abnormal Lab Results - Last 24 Hours (Table) 05/16/19 05/16/19 05/16/19 Range/Units 16:38 20:41 21:05 WBC (3.8-10.6) k/uL RBC (4.30-5.90) m/uL Hgb (13.0-17.5) gm/dL Hct (39.0-53.0) % MCHC (31.0-37.0) g/dL RDW (11.5-15.5) % Blast Cells % % Neutrophils # (Manual) (1.3-7.7) k/uL Lymphocytes # (Manual) (1.0-4.8) k/uL Monocytes # (Manual) (0-1.0) k/uL Eosinophils # (Manual) (0-0.7) k/uL Metamyelocytes # (Man) (0) k/uL Myelocytes # (Manual) (0) k/uL Promyelocytes # (Man) (0) k/uL Blast Cells # (Man) (0) k/uL Nucleated RBCs (0-0) /100 WBC BUN (9-20) mg/dL POC Glucose (mg/dL) 210 H 215 H 220 H (75-99) mg/dL Calcium (8.4-10.2) mg/dL Total Bilirubin (0.2-1.3) mg/dL AST (17-59) U/L ALT (21-72) U/L Alkaline Phosphatase (38-126) U/L Total Protein (6.3-8.2) g/dL Albumin (3.5-5.0) g/dL 05/17/19 05/17/19 05/17/19 Range/Units 08:52 08:52 11:59 WBC 70.8 H* (3.8-10.6) k/uL RBC 3.20 L (4.30-5.90) m/uL Hgb 8.5 L (13.0-17.5) gm/dL Hct 29.4 L (39.0-53.0) % MCHC 29.1 L (31.0-37.0) g/dL RDW 28.9 H (11.5-15.5) % Blast Cells % 1 H* % Neutrophils # (Manual) 61.50 H (1.3-7.7) k/uL Lymphocytes # (Manual) 0.71 L (1.0-4.8) k/uL Monocytes # (Manual) 1.42 H (0-1.0) k/uL Eosinophils # (Manual) 0.71 H (0-0.7) k/uL Metamyelocytes # (Man) 2.12 H (0) k/uL Myelocytes # (Manual) 4.96 H (0) k/uL Promyelocytes # (Man) 0.71 H (0) k/uL Blast Cells # (Man) 0.71 H (0) k/uL Nucleated RBCs 18 H (0-0) /100 WBC BUN 42 H (9-20) mg/dL POC Glucose (mg/dL) 104 H (75-99) mg/dL Calcium 6.6 L (8.4-10.2) mg/dL Total Bilirubin 2.3 H (0.2-1.3) mg/dL AST 64 H (17-59) U/L ALT 81 H (21-72) U/L Alkaline Phosphatase 155 H (38-126) U/L Total Protein 5.3 L (6.3-8.2) g/dL Albumin 2.9 L (3.5-5.0) g/dL Microbiology - Last 24 Hours (Table) 05/12/19 17:20 Blood Culture - Preliminary Blood No Growth after 96 hours 05/12/19 17:11 Blood Culture - Preliminary Blood No Growth after 96 hours Assessment and Plan (1) Anemia Narrative/Plan: The patient hemoglobin is fairly stable considering his baseline, and acute illness. 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 Baseline hemoglobin when he'll these generally in the 8-9 range. Hemoglobin does tend to drop in the setting of additional acute illness. Currently it is adequate in the 8-9 range. Continue to monitor and transfuse if drops below 7. Otherwise continue erythropoietin injections weekly. The patient is to go to rehab after discharge. Recommend continuation of weekly erythropoietin injections at his home dose, while in [facility]. He will resume the same in the office post discharge. Current Visit: No Status: Chronic Priority: Medium Code(s): D64.9 - ANEMIA, UNSPECIFIED SNOMED Code(s): 301212010 (2) Leukocytosis Current Visit: No Status: Chronic Priority: Medium Code(s): D72.829 - ELEVATED WHITE BLOOD CELL COUNT, UNSPECIFIED SNOMED Code(s): 671135359 (3) Myelofibrosis Narrative/Plan: The patient has primary myelofibrosis. He did not respond to Jakafi, and is currently on observation alone with erythropoietin injections for supportive treatment of his anemia. He has chronic leukocytosis due to the myelofibrosis. Again in the setting of acute illness his WBC tends to increase with more prominent left shift noted on peripheral smear. During this admission, the same phenomenon has been noted because of CHF, and ongoing cellulitis of the right lower extremity. There is no evidence of transformation at this time. No acute intervention required. It is expected that is obviously will return to baseline once acute condition has resolved sufficiently Current Visit: No Status: Chronic Priority: Medium Code(s): D75.81 - MYELOFIBROSIS SNOMED Code(s): 43147179
[2019-05-17 17:10] LABS: Glucose,Whole Blood 194 mg/dL (75-99)
[2019-05-17 20:33] LABS: Glucose,Whole Blood 268 mg/dL (75-99)
[2019-05-17 21:14] LABS: Glucose,Whole Blood 272 mg/dL (75-99)
[2019-05-17] MEDS: HYDROcodone/APAP 5-325MG 1 EACH TAB PO PRN (21:14)
[2019-05-18] MEDS: MORPHINE SULFATE 2 MG/ML SYRINGE IVP PRN (02:38)
[2019-05-18 06:47] LABS: Glucose,Whole Blood 243 mg/dL (75-99)
[2019-05-18] MEDS: INSULIN ASPART (NovoLOG) 100 UNIT/ML VIAL SQ SCH ×4 (07:05→21:37)
[2019-05-18] MEDS: PANTOPRAZOLE 40 MG TABLET PO SCH (07:18)
[2019-05-18] MEDS: MIDODRINE 5 MG TAB PO SCH ×3 (07:18→18:02)
[2019-05-18] MEDS: IPRATROPIUM-ALBUTEROL 3 ML NEB INHALATION SCH ×4 (07:20→18:49)
[2019-05-18] MEDS: HEPARIN SODIUM,PORCINE 5,000 UNIT/ML 1 ML VIAL SQ SCH ×3 (08:24→23:56)
[2019-05-18] MEDS: ALLOPURINOL 100 MG TAB PO SCH (08:24)
[2019-05-18] MEDS: FUROSEMIDE 10 MG/ML 4 ML VIAL IV SCH ×3 (08:24→23:56)
[2019-05-18] MEDS: POLYETHYLENE GLYCOL 3350 17 GM POWD.PACK PO SCH (08:25)
[2019-05-18] MEDS: DOCUSATE 100 MG CAP PO SCH (08:25)
[2019-05-18] MEDS: NYSTATIN 100,000 UNIT/ML SUSP 500,000 UNIT/5 ML CUP PO SCH ×4 (08:25→21:45)
[2019-05-18] MEDS: predniSONE 10 MG TAB PO SCH (08:25)
[2019-05-18] MEDS: CALCIUM CARBONATE 500 MG CHEWABLE PO SCH ×2 (08:25→21:37)
[2019-05-18] MEDS: CLOPIDOGREL 75 MG TAB PO SCH (08:25)
[2019-05-18] MEDS: ASPIRIN 81 MG PO SCH (08:25)
[2019-05-18] MEDS: METOPROLOL TARTRATE 25 MG TAB PO SCH ×3 (08:25→21:38)
[2019-05-18] MEDS ORDERED: FUROSEMIDE 40 MG TAB PO SCH (09:00)
--- NOTE | 2019-05-18 09:59 | P.PN ---
Subjective Progress Note Date: 05/18/19 Principal diagnosis: Acute painful right lower extremity, severe peripheral vascular disease, status post previous fem-pop endarterectomy and bovine graft. Possible localized infe ction at the level of the graft with septic embolization to the right lower extremity, ischemic fourth toe on right foot This is a 79-year-old male patient with known history of extensive peripheral vascular disease with previous fem-pop arthrectomy and bovine patch insertion in addition to history of chronic atrial fibrillation was not been able to maintain on anticoagulation because of alcohol GI bleeding. The patient also known to have coronary artery disease, diastolic heart failure, hypertension and hyperlipidemia and gout. The patient came into the hospital yesterday because of an extensive right leg pain. The pain was mainly over the posterior aspect of his right callus and the patient also developed a bluish discoloration of the fourth toe. There was also some erythematous rash over the oh and over the anterior/medial thigh area where the vascular intervention was done earlier. On examination, the area is quite painful. The patient had a Doppler of the right lower x-ray that showed no evidence of any DVT. Pulses were obtained by Doppler signal in the popliteal dorsalis pedis and anterior tibialis. The patient is adequate femoral vein in the right groin area that was palpable. The patient is afebrile. The patient is hemodynamically stable. He was started on antibiotics for now. His cardiac rhythm remains in atrial fibrillation. The patient had a repeat echocardiogram today that showed severe pulmonary hypertension which has been noted on previous echocardiogram with a PA pressure estimated to be in the 90 mmHg range. He was furthermore found to have elevated uric acid level which probably is not related to this current presentation. The patient has underlying history of gout. The patient's current white count is 41.2. The patient has significant neutrophilia of 38%. The patient was started on accommodation Zosyn and vancomycin. The patient is on no pressors for now. Outpatient medications have been ordered resume. The primary cultures are negative for the past 24 hours. On today's evaluation of 72,019 the patient is being seen for a follow-up. He has a bluish/necrotic fourth toe. The erythema over the thigh still present. Erythema of the calvaria still present. The area is less tender compared to yesterday. Hemodynamically stable and the patient is currently off pressors. He is afebrile. He is covered with Zosyn. White cell count is down to 35. Repeat blood cultures of been all negative. Clinically much more alert and awake compared to yesterday. No chest pain. No significant shortness of breath. Slightly acidotic with a bicarb level of 15. This is an anion gap metabolic acidosis. Creatinine is down to 1.39 and the patient shows some improvement in renal function compared to yesterday. Cardiac rhythm is atrial fibrillation. Echocardiogram results were discussed yesterday the patient has severe pulmonary hypertension. The patient was seen by vascular surgery. Their impression is consistent with right fourth toe wound/infection with atherosclerotic disease involving lower oximetry is bilaterally. An angiogram as being planned at a later stage is no signs of improvement after conservative treatment. May need a fourth toe amputation at a later stage. On 05/06/2019 patient has been seen in follow-up on selective care unit, he is awake and alert, resting in bed, he states his right calf is still quite tender to touch, the pain in his right foot. Right groin redness has subsided, however right calf redness and pitting edema remains, right foot fourth toe is still cyanotic, bluish discoloration. Denies any shortness of breath, remains on 2 L of oxygen with a pulse ox of 92%, he is afebrile, hemodynamically patient is stable. No cough or congestion. All culture data remains negative thus far, including blood cultures and urine culture. His labs have been reviewed, showing a down trend in the white blood cell count down to 31.3, hemoglobin of 8.1, serum sodium is 137, potassium is 4.6, chloride is 112, CO2 is 16, BUN of 43, and creatinine is 1.17. Patient is on Zosyn for antibiotic coverage. ID service is following On 05/08/2019 patient seen in follow-up on the selective care unit. Right lower extremity with persistent pain, although erythema and warmth have subsided. Doppler right posttibial pulse, unable to obtain right posttibial pulse, no doppler right pedal pulse. Patient does admit to some shortness of breath, but no acute distress., is on 2 L of oxygen with pulse ox of 90%, temp is 96.4 axillary, slightly tachycardic, with a rate in the low 100s, no chest pain. Right fourth toe remains purple, dusky, right calf listers had been opened and drained, and there is demarcation with some blanching along the margins surrounding the blisters. Today's labs there is acute elevation of white blood cell count up to 68.6, hemoglobin of 8.3, serum sodium is 137, potassium is 4.7, chloride is 110, CO2 is 17, BUN is 45, creatinine is 1.12. Lactic acid was ob tained showing lactic acidemia of 4.4, creatinine kinase was 85. Blood gas was obtained on FiO2 of 28%, showing pO2 of 71, pCO2 of 27, and pH of 7.36, consistent with metabolic acidosis with respiratory compensation, and hypoxemia. Patient is on antibiotics in the form of cefepime, and vancomycin, ID service is following. Chest x-ray was obtained showing pulmonary edema, and patient is on IV Lasix. Vascular surgery is following the patient, and patient is scheduled for possible amputation of the fourth toe and angiogram today. He is on aspirin and Plavix. On 05/18/2019 patient seen in follow-up, he remains in the intensive care unit as a Gen. medical floor overflow. Possible discharge to a local ECF today, apparently manageable admitted arrangements for discharge to [facility], however related to patient's IV daptomycin, the ECF would not accept the patient. As no acute distress, patient is currently on 4 L of oxygen pulse ox of 97%, hemodynamically stable, afebrile, A. fib on the monitor with a controlled rate, currently not on any anticoagulation related to patient's history of bleeding, he is on subcu heparin, he remains on IV Lasix of 40 mg every 8 hours. He is in negative fluid balance, and his weight is down by 3.5 kg in the last 24 hours. Get not to the bedside commode and voiding, tolerating activity well with some exertional dyspnea. Lung sounds are positive for minimal wheezing and some fine crackles, diminished, no worsening shortness of breath, though has significant edema, no nausea vomiting no diarrhea, no abdominal pain. Objective - Vital Signs Vital signs: Vital Signs Temp 97.5 F L 05/17/19 16:00 Pulse 71 05/18/19 07:31 Resp 27 H 05/18/19 04:00 BP 104/61 05/18/19 04:00 Pulse Ox 97 05/18/19 07:31 Intake & Output 05/17/19 05/18/19 05/18/19 18:59 06:59 18:59 Intake Total 0 240 Output Total 550 Balance 0 -310 Weight 86.4 kg Intake: IV 0 0 0.9 KVO 0 0 Oral 240 Output: Urine 550 Other: Voiding Method Urinal Urinal # Voids 1 - Exam GENERAL EXAM: Alert, pleasant, 79-year-old white male, on 4 L of oxygen, comfortable in no apparent distress. HEAD: Normocephalic/atraumatic. EYES: Normal reaction of pupils, equal size. Conjunctiva pink, sclera white. NOSE: Clear with pink turbinates. THROAT: No erythema or exudates. NECK: No masses, no JVD, no thyroid enlargement, no adenopathy. CHEST: No chest wall deformity. Symmetrical expansion. LUNGS: Equal air entry with some scattere wheezes and basilar fine rales CVS: Regular rate and rhythm, normal S1 and S2, no gallops, no murmurs, no rubs ABDOMEN: Soft, nontender. No hepatosplenomegaly, normal bowel sounds, no guarding or rigidity. EXTREMITIES: No clubbing, no cyanosis, 2+ pulses and upper and lower extremities. Right lower extremity is covered with dressing, right fourth toe wound is dressed, patient has 1-2+ lower extremity edema MUSCULOSKELETAL: Muscle strength and tone normal. SPINE: No scoliosis or deformity SKIN: No rashes CENTRAL NERVOUS SYSTEM: Alert and oriented -3. No focal deficits, tone is normal in all 4 extremities. PSYCHIATRIC: Alert and oriented -3. Appropriate affect. Intact judgment and insight. - Labs CBC & Chem 7: 05/17/19 08:52 05/17/19 08:52 Labs: Abnormal Lab Results - Last 24 Hours (Table) 05/17/19 05/17/19 05/17/19 Range/Units 11:59 16:58 20:22 POC Glucose (mg/dL) 104 H 194 H 268 H (75-99) mg/dL 05/17/19 05/18/19 Range/Units 21:02 06:36 POC Glucose (mg/dL) 272 H 243 H (75-99) mg/dL Microbiology - Last 24 Hours (Table) 05/12/19 17:20 Blood Culture - Preliminary Blood No Growth after 120 hours 05/12/19 17:11 Blood Culture - Preliminary Blood No Growth after 120 hours Assessment and Plan Plan: 1 acute gangrene of right fourth toe, patient had severe peripheral vessel occlusive disease, previous femoral popliteal endarterectomy and bovine graft. Cultures positive for MRSA, patient is on daptomycin as per infectious disease on the case. 2 acute leukocytosis, underlying myeloproliferative disorder. 3 acute sepsis secondary to above. 4 Lactic acidosis secondary to ischemia of the right lower extremity, resolved. 5 Chronic atrial fibrillation 6 Hypertension 7 Chronic anemia 8 Previous history of GI bleeding, 9 History of myeloproliferative disorder 10 Hyperlipidemia 11 History of gout 12 acute and recurrent systolic congestive heart failure. Today the patient was given an extra dose of Lasix. 13 acute exacerbation of COPD. patient is on bronchodilators, steroids, I did cut down the dose to 10 mg daily, may have to increase the dose of the patient continues to have symptoms of wheezing. However today he was given 1 dose of Solu-Medrol 125 mg IV push times one. Plan: Continue with current treatment, continue with diuretics per nephrology recommendations, continue with the maintenance dose of prednisone 10 mg daily, patient is in no acute distress, some minimal wheezing and fine rales, no worsening dyspnea, he is diuresing, he is maintaining negative fluid balance, and chest x-rays today, no new labs. Awaiting discharge to subacute rehab they will accept patient with IV daptomycin infusions. Continue with breathing treatments, continue with IV daptomycin, clinically stable, we'll continue to follow. I performed a history & physical examination of the patient and discussed their management with my nurse practitioner, Crystal Hanna. I reviewed the nurse practitioner's note and agree with the documented findings and plan of care. Lung sounds are positive for diffuse wheezes throughout the lung ross. The findings and the impression was discussed with the patient. I attest to the documentation by the nurse practitioner. Time with Patient: Less than 30
[2019-05-18] MEDS: DAPTOmycin 500 MG in SODIUM CHLORIDE 0.9% 50 ML IVPB SCH (10:16)
--- NOTE | 2019-05-18 11:59 | PN ---
PROGRESS NOTE The patient is seen for followup for acute kidney injury secondary to vancomycin toxicity. Renal function has improved. Serum creatinine is down to 1.07 from 1.4. The patient remains volume overloaded. I will increase the Lasix. PHYSICAL EXAMINATION: On examination, blood pressure this morning was 103/60, heart rate of 80 per minute. Patient is afebrile. EXAMINATION OF THE HEART: S1, S2. EXAMINATION OF THE LUNGS: Bilateral breath sounds are heard. Abdomen is soft, nontender. Examination of the lower extremities shows edema 2+ bilaterally, upper and lower extremities. 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 LABS: Labs show WBC 70.8, platelet count 299. Sodium 141, potassium 3.7, BUN 42, serum creatinine 1.0. Calcium 6.6. ASSESSMENT: 1. Acute kidney injury secondary to vancomycin toxicity, currently improving. 2. Volume overload. Continue to diurese patient. Increase Lasix to 40 mg q.8 hours. 3. Right leg ischemia, history of CTA. 4. Right fourth toe gangrene, status post amputation and debridement. PLAN: Increase Lasix to 40 mg IV q.8 hours. Repeat labs in a.m. MMODL / IJN: [id number] /
[2019-05-18 12:06] LABS: Glucose,Whole Blood 245 mg/dL (75-99)
--- NOTE | 2019-05-18 16:14 | PN ---
PROGRESS NOTE DATE OF SERVICE: 05/18/2019. REASON FOR FOLLOWUP: 1. Right fourth toe gangrene, status post amputation. 2. Right medial leg wound; culture positive for both MRSA and MSSA. INTERVAL HISTORY: The patient is currently afebrile. The patient has been breathing comfortably. Denies having any chest pain or any cough. No abdominal pain or any worsening pain in the right leg area. PHYSICAL EXAMINATION: Blood pressure is 103/60 with a pulse of 80, temperature 97.5. He is 94% on 2 L nasal cannula. General description is an elderly male up in the bed in no distress. RESPIRATORY SYSTEM: Unlabored breathing. Clear to auscultation anteriorly. HEART: S1, S2. Regular rate and rhythm. ABDOMEN: Soft. No tenderness. RIGHT FOURTH TOE AMPUTATION SITE: Minimal darkness noted. Some blood. No slough tissue or surrounding redness. RIGHT MEDIAL LEG WOUND: Very minimal slough tissue. No surrounding redness or any drainage. LABS: No new labs have been obtained today. DIAGNOSTIC IMPRESSION AND PLAN: 1. Patient with right fourth toe gangrene, status post amputation. Culture positive for MRSA. Currently on daptomycin because of jump in his creatinine because of the vancomycin. 2. Right medial leg wound. Culture positive for MSSA. The patient is currently covered with daptomycin. 3. Local wound care to the right fourth toe amputation site will be Aquacel Silver dressing. 4. Wound care to the right mid leg wound with Medihoney. As no residential will take the patient on IV daptomycin and it is high risk of nephrotoxicity with vancomycin, the patient's antibiotic will be switched over to oral doxycycline 100 mg twice a day and close outpatient [facility]. Prescription has been entered into the patient's discharge sheet. Continue with supportive care. MMODL / IJN: [id number] /
--- NOTE | 2019-05-18 16:55 | P.PN ---
Subjective Progress Note Date: 05/18/19 Principal diagnosis: CHF exacerbation Patient was seen and examined. No acute events overnight. Patient reports improvement in his right lower extremity pain. He does complain of swelling that is extensive in his bilateral lower extremity along with scrotal swelling. States that his breathing has not gotten better since admission. He denies any chest pain or palpitations. No nausea or vomiting. No fever or chills. Objective - Vital Signs Vital signs: Vital Signs Temp 97.7 F 05/18/19 12:00 Pulse 78 05/18/19 15:42 Resp 16 05/18/19 15:42 BP 116/63 05/18/19 12:00 Pulse Ox 100 05/18/19 12:00 Intake & Output 05/17/19 05/18/19 05/18/19 18:59 06:59 18:59 Intake Total 0 240 Output Total 550 75 Balance 0 -310 -75 Weight 86.4 kg Intake: IV 0 0 0.9 KVO 0 0 Oral 240 Output: Urine 550 75 Other: Voiding Method Urinal Urinal Urinal # Voids 1 1 - Exam General: [non toxic], [no distress], [appears at stated age] Derm: [warm], [dry] Head: [atraumatic], [normocephalic], [symmetric] Eyes: [EOMI], [no lid lag], [anicteric sclera] Mouth: [no lip lesion], [mucus membranes moist] Cardiovascular: [S1S2 reg], [irregularly irregular] Lungs: [End expiratory wheezing bilaterally], [bibasilar rales] , [no accessory muscle use] Abdominal: [soft], [ nontender to palpation], [no guarding], [no appreciable organomegaly] Ext: [no gross muscle atrophy], [ lower extremity edema], [no contractures] Neuro: [Right foot wrapped with serosanguineous fluid] Psych: [Alert], [oriented], [appropriate affect] - Labs CBC & Chem 7: 05/17/19 08:52 05/17/19 08:52 Labs: Abnormal Lab Results - Last 24 Hours (Table) 05/17/19 05/17/19 05/17/19 Range/Units 16:58 20:22 21:02 POC Glucose (mg/dL) 194 H 268 H 272 H (75-99) mg/dL 05/18/19 05/18/19 Range/Units 06:36 11:54 POC Glucose (mg/dL) 243 H 245 H (75-99) mg/dL Microbiology - Last 24 Hours (Table) 05/12/19 17:20 Blood Culture - Preliminary Blood No Growth after 120 hours 05/12/19 17:11 Blood Culture - Preliminary Blood No Growth after 120 hours Assessment and Plan Assessment: Assessment and Plan Right 4th toe discoloration, possibly related to thromboembolic disease Sepsis, possibly related to right lower extremity cellulitis Lactic acidosis Oral thrush Acute on chronic systolic CHF exacerbation Hypocalcemia Myeloproliferative disorder with leukocytosis CAD with recent RCA stent Atrial flutter Gout Patient with history of right lower extremity ischemia with common femoral severe occlusive disease status post right common femoral artery endarterectomy in March 2018. Unable to Doppler DP or PT pulse and right foot on 05/08, able to Doppler since. CTA aorta with runoff shows diffuse atheromatous changes with occlusion of the proximal right posterior tibial artery. Patient is POD 9 amputation of the R 4th toe and right debridement of R medical calf wound. Plans: Pain control with [place] or morphine as needed. Neurochecks and right lower extremity. Continue aspirin and Plavix. Follow vascular surgery recommendations. Patient with increased white count of 96.6 (05/14) from 63.2 (7/), hypothermic to 96.4, tachycardic to 104 with lactic acid elevated at 4.4. Likely related to right lower extremity cellulitis. Blood culture 05/12 negative at 120 hours. Wound culture show MRSA. Plans: Currently off pressors. Tylenol as needed for fever. Patient continued on daptomycin IV, okay to discharge on doxycycline by mouth, discussed with Dr. Joseph. Follow blood culture. Follow infectious disease consult. Lactic acid 4.4-2.1-2.5-2.8. Likely secondary to ischemia of the right foot. Plans: Continue IV antibiotics as above. Repeat lactic acid. As seen on physical exam. Plans: Nystatin swish and swallow. Chest x-ray show bilateral basilar infiltrates and a right pleural effusion, resolving. Plans: Lasix 40 mg IV 3 times a day. Hold spironolactone. Continue metoprolol 25 mg by mouth 3 times a day. Strict intake and output take. Daily weight. We'll be cautious as patient is being hydrated with IVF. Follow cardiology consultation. DuoNeb four times a day as needed for possible bronchospasm. Calcium 6.6. Low vitamin D of 15.8. Plans: Daily CMP. Start calcium carbonate 500 mg by mouth twice a day. Continue follow nephrology consult. Vitamin D 50,000 units weekly. WBC count 70.8. Leukocytosis likely stress-induced and steroid induced. Gets weekly Procrit injections at Dr. Miller's office. Plan: Daily CBC. Procrit injections weekly. Continue Aranesp. Plan: Continue aspirin, Plavix and Lipitor. Metoprolol resumed. Plan: No anticoagulation due to recurrent GI bleeds. Continue Metoprolol. Telemetry monitoring. Follow cardiology consult. Uric acid elevated at 16.9. Plans: Continue low dose prednisone. Restart Allopurinol. Pain control with Tylenol or morphine. Follow PT recommendations. Wound cultures positive MRSA, on daptomycin IV, okay to transition to doxycycline by mouth on discharge as per ID. Breathing unchanged, Lasix increased, cardiology on board. Possible DC tomorrow to [place].
[2019-05-18 17:03] LABS: Glucose,Whole Blood 222 mg/dL (75-99)
[2019-05-18 21:22] LABS: Glucose,Whole Blood 259 mg/dL (75-99)
[2019-05-18] MEDS: HYDROcodone/APAP 5-325MG 1 EACH TAB PO PRN (21:37)
[2019-05-19] MEDS: HYDROcodone/APAP 5-325MG 1 EACH TAB PO PRN (02:45)
[2019-05-19 06:45] LABS: Glucose,Whole Blood 103 mg/dL (75-99)
[2019-05-19] MEDS: IPRATROPIUM-ALBUTEROL 3 ML NEB INHALATION SCH ×2 (07:08→10:53)
[2019-05-19 08:12] LABS: Calcium 6.8 mg/dL (8.4-10.2); Potassium 3.7 mmol/L (3.5-5.1); Total Bilirubin 1.8 mg/dL (0.2-1.3); Total Protein 5.5 g/dL (6.3-8.2)
[2019-05-19] MEDS: INSULIN ASPART (NovoLOG) 100 UNIT/ML VIAL SQ SCH ×2 (08:19→12:37)
[2019-05-19 08:43] LABS: Anisocytosis Marked; Hypochromasia Marked; MCHC 27.7 g/dL (31.0-37.0); MCV 93.7 fL (80.0-100.0); Macrocytosis Moderate; Mean Platelet Volume 10.2; Microcytosis Slight; Platelet Count 241 k/uL (150-450); Poikilocytosis Marked; RBC 3.09 m/uL (4.30-5.90)
[2019-05-19 08:52] LABS: RDW 29.1 % (11.5-15.5)
[2019-05-19] MEDS: MIDODRINE 5 MG TAB PO SCH (09:01)
[2019-05-19] MEDS: PANTOPRAZOLE 40 MG TABLET PO SCH (09:03)
[2019-05-19] MEDS: FUROSEMIDE 10 MG/ML 4 ML VIAL IV SCH (09:04)
[2019-05-19] MEDS: ALLOPURINOL 100 MG TAB PO SCH (09:05)
[2019-05-19] MEDS: HEPARIN SODIUM,PORCINE 5,000 UNIT/ML 1 ML VIAL SQ SCH (09:05)
[2019-05-19] MEDS: ASPIRIN 81 MG PO SCH (09:06)
[2019-05-19] MEDS: CALCIUM CARBONATE 500 MG CHEWABLE PO SCH (09:06)
[2019-05-19] MEDS: DOCUSATE 100 MG CAP PO SCH (09:07)
[2019-05-19] MEDS: CLOPIDOGREL 75 MG TAB PO SCH (09:07)
[2019-05-19] MEDS: NYSTATIN 100,000 UNIT/ML SUSP 500,000 UNIT/5 ML CUP PO SCH (09:08)
[2019-05-19] MEDS: METOPROLOL TARTRATE 25 MG TAB PO SCH (09:08)
[2019-05-19] MEDS: POLYETHYLENE GLYCOL 3350 17 GM POWD.PACK PO SCH (09:09)
[2019-05-19] MEDS: predniSONE 10 MG TAB PO SCH (09:10)
[2019-05-19 09:20] VITALS: BP 126/67; RESP 16; TEMP 97.6
[2019-05-19 11:02] VITALS: PULSE 84
[2019-05-19 11:12] LABS: Band Neutrophils % 1 %; Myelocytes % 2 %; Neutrophils % (M) 89 %; Nucleated Red Blood Cells 5 /100 WBC (0-0); Total Cells Counted 200
[2019-05-19 11:13] LABS: Eosinophils # (M) 0.86 k/uL (0-0.7); Lymphocytes # (M) 2.59 k/uL (1.0-4.8); Monocytes # (M) 4.32 k/uL (0-1.0); Myelocytes # (M) 1.73 k/uL (0); WBC 86.4 k/uL (3.8-10.6)
[2019-05-19 11:14] LABS: Mixed Population RBC Present; Ovalocytes Present; Polychromasia Present; RBC Fragments Present
[2019-05-19 11:15] LABS: Basophilic Stippling Present
[2019-05-19 12:07] LABS: Glucose,Whole Blood 141 mg/dL (75-99)
--- NOTE | 2019-05-19 13:12 | CDI ---
Documentation Clarification Form Date: 05/19/2019 12:52:45 PM From: Trang Maxwell RN CCDS Admit Date: 05/03/2019 3:53:00 PM Patient Name: Jacques Burk Visit Number: [id number] Discharge Date: ATTENTION: The Clinical Documentation Specialists (CDI) and [facility] Coding Staff appreciate your assistance in clarifying documentation. Please respond to the clarification below the line at the bottom and electronically sign. The CDI & [facility] Coding staff will review the response and follow-up if needed. Please note: Queries are made part of the Legal Health Record. If you have any questions, please contact the author of this message via ITS. Dr. David Matthews The patient presented to the ED with right leg and foot pain. While inpatient on 2L to 4L of oxygen nasal cannula. History/Risk Factors: 79 year old male with a medical history of CAD, Gerd, HTN, PAD, Heart Failure and underylying COPD Tobacco use: positive for previous tobacco use Clinical Indicators: per Progress Note May 08, 2019 Patient does admit to some shortness of breath but no acute distress. Vital signs: May 08, 2019 - 2L oxygen with pulse ox of 90% May 08, 2019 ABG/CBG: pH 7.36 pO2 71 pCO2 27 Lactic Acid 4.4 Lung/Breathing assessment: May 08, 2019 Equal air entry with some scattered wheezes Treatment: Breathing tx Duoneb tx 2L nasal cannula 95% 26 rr 12/18/2018; 2L nasal cannula 94% 05/18/2019 ; 4L nasal cannula 4L 99% 05/19/2019 Oxygen 2L to 4L nasal cannula In your professional opinion, can you please clarify if these findings signify one of the following conditions? Acuity * Acute * Chronic * Acute on Chronic Specificity * Respiratory Failure (further specify (if known)): With hypercapnia? (pCO2 >50 and pH <7.35) With hypoxia? (pO2 <60 mm Hg or SpO2 <91% on room air) * Respiratory Distress * Respiratory Insufficiency * Other Diagnosis, please specify * Unable to determine (Last Revision: February 2018) Acute hypoxemic respiratory failure related to hypoperfusion/sepsis. Chronic hypercapnic respiratory failure related to COPD MTDD
--- NOTE | 2019-05-19 14:02 | PN ---
PROGRESS NOTE DATE OF SERVICE: 05/19/2019 REASON FOR FOLLOWUP: Right fourth toe osteomyelitis with and right medial leg wound. INTERVAL HISTORY: The patient is seen on this morning. The patient has been afebrile. Patient was breathing comfortably. Denies having any chest pain, an occasional cough. No abdominal pain. No pain to the right foot and leg wound area. PHYSICAL EXAMINATION: Blood pressure is 126/57 with a pulse of 90, temperature 97.6. He is 100% on 4 L nasal cannula. General description is an elderly male, lying in bed in no distress. RESPIRATORY SYSTEM: Unlabored breathing, clear to auscultation anteriorly. HEART: S1, S2, regular rate and rhythm. ABDOMEN: Soft, no tenderness. EXTREMITIES: Right foot and leg wound: No obvious drainage on the dressing. LABS: Creatinine 0.95. Blood culture negative. DIAGNOSTIC IMPRESSION AND PLAN: Patient with right foot gangrene, status post amputation and right leg wound, status post debridement. Culture positive both for MSSA and MRSA. Patient will be treated with 2 weeks of IV antibiotic therapy. IV daptomycin could not be done in the [facility] and vancomycin could not be prescribed because of his borderline kidney function. Antibiotic has been switched to oral doxycycline 100 mg twice a day for 10 days. Local wound care as ordered. PICC line should be discontinued before discharge. Discussed with the RN. Continue supportive care. FRITZ / FAIZAN: [id number] /
--- NOTE | 2019-05-20 07:24 | P.DS ---
Providers Date of admission: 05/03/19 15:53 Expected date of discharge: 05/19/19 Attending physician: Kris Cid MD Consults: 05/03/19 16:04 Consult Physician Routine Consulting Provider: David Matthews Consult Reason/Comments: ICU management Do you want consulting provider notified?: Already Contacted 05/03/19 16:23 Consult Physician Routine Consulting Provider: Dom Addison Consult Reason/Comments: antibiotic guidance Do you want consulting provider notified?: Yes 05/03/19 16:24 Consult Physician Routine Consulting Provider: Brian Maddox Consult Reason/Comments: HIREN Do you want consulting provider notified?: Yes 05/04/19 09:54 Consult Physician Routine Consulting Provider: James Cline Consult Reason/Comments: embolic disease in right leg, sepsis Do you want consulting provider notified?: Yes 05/04/19 13:29 Consult Physician Routine Consulting Provider: Tiffany Pelayo Consult Reason/Comments: CHF exacerbation, A-FIb Do you want consulting provider notified?: Yes 05/10/19 13:47 Consult Physician Routine Consulting Provider: Armando Miller Consult Reason/Comments: known patient, abnormal CBC Do you want consulting provider notified?: Yes Primary care physician: Leon [facility] Course: Patient is 79-year-old male with a PMH of chronic atrial fibrillation (previously on Xarelto, DC'd due to GI bleeding), myeloproliferative disease, coronary artery disease, peripheral artery disease and prior peripheral revascularization, diastolic CHF, hyperlipidemia, hypertension and gout with recent flare who presented to the ED via EMS with chief complaint of posterior right foot and calf pain that began approximately 3 days ago. The patient reports the pain as severe intermittent and sharp and also mentioned the appearance of some blisters and increased mild redness on that leg. The patient denies any subjective fevers chills or night sweats, denies any chest pain or worsening shortness of breath. The patient reports increasing lightheadedness and fatigue and reports an inability to ambulate secondary to pain. Patient reports having a scheduled appointment for Watchman procedure for his chronic Afib onjuly at [facility]. Review of records indicates the patient was recently here and discharged 04/27/19 after being admitted with acute systolic CHF exacerbation and acute gout flare where he was diuresed aggressively and discharged home on Lasix and naproxen respectively. On presentation the ER the patient was noted to be hypotensive VS 75/49, a comprehensive workup WBC count was 35.6 hemoglobin 8.5, serum sodium 131, potassium 5.4, creatinine 2.12, serum bicarb 20. X-rays of the right lower extremity was consistent with gout. chest x-ray multifocal patchy interstitial opacities most confluent in the medial right base correlate for multifocal pneumonia. Left lower extremity venous was negative for DVT. Patient was admitted for blackish discoloration of the right fourth toe, possibly related to thromboembolic disease rule out osteomyelitis. He had a history of right lower extremity ischemia with common femoral severe occlusive disease status post right common femoral artery endarterectomy in March 2018. Patient had dorsalis pedis pulses were initially able to be dopplered but was unable to be dopplered on 05/08/2019. CTA of the aorta with runoff showed diffuse atheromatous changes with occlusion of the right posterior tibial artery. Patient underwent amputation of the right fourth toe and debridement of the right medial calf wound under vascular surgery. His pain was controlled wi th Seneca and morphine. He was continued on aspirin and Plavix. Patient was noted to be septic during his admission thought to be related to right lower extremity cellulitis. Patient had a leukocytosis-96.6 on 05/14/2019, he was hypothermic to 96.4F and tachycardic to 104 with lactic acid elevated at 4.4. Blood cultures were negative at 120 hours on discharge. Wound cultures grew out MRSA. Patient was initially on pressors which was eventually weaned off. Infectious disease was consulted, patient was initially started on daptomycin IV and was okay to be discharged on doxycycline by mouth. Patient was also admitted for shortness of breath, diagnosis acute on chronic systolic CHF exacerbation. Chest x-rays serially showed bibasilar infiltrates and right pleural effusion which was resolving at the time of discharge. He was initially placed on Lasix 40 mg IV 3 times a day and discharge on oral. He was continued on metoprolol. Cardiology was consulted throughout his hospitalizat ion. Patient was seen and examined prior to discharge. No acute events overnight. Plans to go to [facility]. General: [non toxic], [no distress], [appears at stated age] Derm: [warm], [dry] Head: [atraumatic], [normocephalic], [symmetric] Eyes: [EOMI], [no lid lag], [anicteric sclera] Mouth: [no lip lesion], [mucus membranes moist] Cardiovascular: [S1S2 reg], [irregularly irregular] Lungs: [decreased breath sounds bilaterally], [bibasilar rales at the base on the right] , [no accessory muscle use] Abdominal: [soft], [ nontender to palpation], [no guarding], [no appreciable organomegaly] Ext: [no gross muscle atrophy], [ lower extremity edema], [no contractures] Neuro: [Right foot wrapped with serosanguineous fluid] Psych: [Alert], [oriented], [appropriate affect] Assessment and Plan Right 4th toe discoloration, possibly related to thromboembolic disease Sepsis, possibly related to right lower extremity cellulitis Lactic acidosis Oral thrush Acute on chronic systolic CHF exacerbation Hypocalcemia Myeloproliferative disorder with leukocytosis CAD with recent RCA stent Atrial flutter Gout Patient with history of right lower extremity ischemia with common femoral severe occlusive disease status post right common femoral artery endarterectomy in March 2018. Unable to Doppler DP or PT pulse and right foot on 05/08, able to Doppler since. CTA aorta with runoff shows diffuse atheromatous changes with occlusion of the proximal right posterior tibial artery. Patient is POD 10 amputation of the R 4th toe and right debridement of R medical calf wound. Plans: Pain control with Seneca or morphine as needed. Neurochecks and right lower extremity. Continue aspirin and Plavix. Follow vascular surgery recommendations. Patient with increased white count of 96.6 (05/14) from 63.2 (05/10), hypothermic to 96.4, tachycardic to 104 with lactic acid elevated at 4.4. Likely related to right lower extremity cellulitis. Blood culture 05/12 negative at 144 hours. Wound culture show MRSA. Plans: Currently off pressors. Tylenol as needed for fever. Patient continued on daptomycin IV, okay to discharge on doxycycline by mouth, discussed with Dr. Addison. Follow blood culture. Follow infectious disease consult. Lactic acid 4.4-2.1-2.5-2.8-within normal limits. Likely secondary to ischemia of the right foot. Plans: Continue IV antibiotics as above. Resolved. As seen on physical exam. Plans: Nystatin swish and swallow. Chest x-ray show bilateral basilar infiltrates and a right pleural effusion, resolving. Plans: Lasix 40 mg IV 3 times a day, transitioned to oral. Hold spironolactone. Continue metoprolol 25 mg by mouth 3 times a day. Strict intake and output take. Daily weight. We'll be cautious as patient is being hydrated with IVF. Follow cardiology consultation. DuoNeb four times a day as needed for possible bronchospasm. Calcium 6.8. Low vitamin D of 15.8. Plans: Daily CMP. Start calcium carbonate 500 mg by mouth twice a day. Continue follow nephrology consult. Vitamin D 50,000 units weekly. WBC count 86.4. Leukocytosis likely stress-induced and steroid induced. Gets weekly Procrit injections at Dr. Miller's office. Plan: Daily CBC. Procrit injections weekly. Continue Aranesp. Plan: Continue aspirin, Plavix and Lipitor. Metoprolol resumed. Plan: No anticoagulation due to recurrent GI bleeds. Continue Metoprolol. Telemetry monitoring. Follow cardiology consult. Uric acid elevated at 16.9. Plans: Continue low dose prednisone. Restart Allopurinol. Pain control with Tylenol or morphine. Follow PT recommendations. Wound cultures positive MRSA, on daptomycin IV, okay to transition to doxycycline by mouth on discharge as per ID. We'll need to undergo watchman procedure at [facility] as scheduled. Possible DC today to [facility]. This complex discharge took about 1 hour. Pertinent Studies: foot x-ray, chest x-ray, venous duplex, echocardiogram, CTA of the lower extremities Procedures: amputation of the fourth toe on the right foot with right calf debridement Patient Condition at Discharge: Stable Plan - Discharge Summary Discharge Rx Participant: Yes New Discharge Prescriptions: New Furosemide [Lasix] 40 mg PO BID@0900,1600 #60 tab Metoprolol Tartrate [Lopressor] 25 mg PO TID #90 tab Midodrine [ProAmatine] 10 mg PO AC-TID #90 tab Ergocalciferol [Vitamin D2 (DRISDOL)] 50,000 unit PO Q7D cap Doxycycline [Vibramycin] 100 mg PO BID #20 cap HYDROcodone/APAP 10-325MG [Seneca 10-325] 1 tab PO Q6HR PRN 3 Days #12 tab PRN Reason: Pain Continue Atorvastatin [Lipitor] 40 mg PO HS Aspirin 81 mg PO DAILY #30 chew Clopidogrel [Plavix] 75 mg PO DAILY #30 tab Pantoprazole Sodium [Protonix] 40 mg PO DAILY rOPINIRole HCL [Requip] 1 mg PO HS Allopurinol [Zyloprim] 100 mg PO DAILY Epoetin Newton [Procrit] 40,000 units IV WEEKLY Discontinued Spironolactone [Aldactone] 25 mg PO BID Metoprolol Tartrate [Lopressor] 50 mg PO BID Terazosin [Hytrin] 5 mg PO HS predniSONE 40 mg PO DAILY tab Amiodarone [Cordarone] 200 mg PO HS Furosemide [Lasix] 40 mg PO HS #30 tab Furosemide [Lasix] 60 mg PO DAILY #30 tab Naproxen [Naprosyn] 375 mg PO Q12HR #30 tablet Discharge Medication List Atorvastatin [Lipitor] 40 mg PO HS 09/27/14 [History] Aspirin 81 mg PO DAILY #30 chew 04/07/18 [Rx] Clopidogrel [Plavix] 75 mg PO DAILY #30 tab 04/07/18 [Rx] Pantoprazole Sodium [Protonix] 40 mg PO DAILY 07/14/18 [History] rOPINIRole HCL [Requip] 1 mg PO HS 02/12/19 [History] Allopurinol [Zyloprim] 100 mg PO DAILY 03/31/19 [History] Epoetin Newton [Procrit] 40,000 units IV WEEKLY 04/03/19 [History] Ergocalciferol [Vitamin D2 (DRISDOL)] 50,000 unit PO Q7D cap 05/15/19 [Rx] Furosemide [Lasix] 40 mg PO BID@0900,1600 #60 tab 05/15/19 [Rx] Metoprolol Tartrate [Lopressor] 25 mg PO TID #90 tab 05/15/19 [Rx] Midodrine [ProAmatine] 10 mg PO AC-TID #90 tab 05/15/19 [Rx] Doxycycline [Vibramycin] 100 mg PO BID #20 cap 05/18/19 [Rx] HYDROcodone/APAP 10-325MG [Seneca 10-325] 1 tab PO Q6HR PRN 3 Days #12 tab 05/19/19 [Rx] Follow up Appointment(s)/Referral(s): Armando Miller MD [STAFF PHYSICIAN] - As Needed (follow up 1 week after discharge from [facility] for CBC) Leon Franklin MD [Primary Care Provider] - 1-2 days Ambulatory/Diagnostic Orders: Miscellaneous Lab Order [LAB.AMB] Location: None Selected Activity/Diet/Wound Care/Special Instructions: Aquacel silver dressing to the right fourth toe amputation site to be changed every 48 hours [place] to the right medial leg wound to change daily Follow-up with Dr. addison in the wound care center in 1 week Call [phone] to make an appointment Discharge Disposition: TRANSFER TO SNF/ECF
--- NOTE | 2019-05-20 15:01 | CDI ---
Documentation Clarification Form Date: 05/20/2019 From: Radha De Santiago Phone: If questions call Eve Quiroz @ [phone], Hours-8:30 am & 5 pm M- F Admit Date: 05/03/2019 3:53:00 PM Patient Name: Jacques Burk Visit Number: [id number] Discharge Date: 05/19/2019 12:50:00 PM ATTENTION: The Clinical Documentation Specialists (CDI) and [facility] Coding Staff appreciate your assistance in clarifying documentation. Please respond to the clarification below the line at the bottom and electronically sign. The CDI & [facility] Coding staff will review the response and follow-up if needed. Please note: Queries are made part of the Legal Health Record. If you have any questions, please contact the author of this message via ITS. Dr. Dayana Boyer Patient was admitted with HIREN, ATN, nonoliguric secondary to hypotension, hypoperfusion. History/Risk Factors: ASPVD w gangrene of R toe, sepsis, ac/chr systolic CHF, myelodysplastic disease, pul HTN Clinical Indicators: BP on adm-75/49, 05/04 Current BUN/CR/GFR: 86/2.11/01 Baseline CR: 0.8-1.0 MG Treatment: all nephrotoxic meds held, IVF In order to capture the severity of condition, please clarify if the condition signifies: CKD Stage 1 (GFR > 90) CKD Stage 2 (GFR 60-89) CKD Stage 3 (GFR 30-59) CKD Stage 4 (GFR 15-29) CKD Stage 5 (GFR <15) ESRD Other, please specify Unable to determine MTDD
== END 2019-05-19 12:50 | DRG 853 ==
LOC: EC 13:31 → 2SICU 15:53 → 3SCARD 05-05 22:20 → 2SICU 05-08 15:15 → 4SSUR 05-18 20:20
PROVIDERS: ADMIT Family Medicine; ATTEND Family Medicine
PROC: B44FZZZ Ultrasonography of Right Lower Extremity Arteries (ICD-10-PCS; 2019-05-04)
PROC: 0JDN0ZZ Extraction of Right Lower Leg Subcutaneous Tissue and Fascia, Open Approach (ICD-10-PCS; 2019-05-09)
PROC: 3E0T3BZ Introduction of Anesthetic Agent into Peripheral Nerves and Plexi, Percutaneous Approach (ICD-10-PCS; 2019-05-09)
PROC: 3E0T3BZ Introduction of Anesthetic Agent into Peripheral Nerves and Plexi, Percutaneous Approach (ICD-10-PCS; 2019-05-09)
PROC: 0Y6V0Z0 Detachment at Right 4th Toe, Complete, Open Approach (ICD-10-PCS; principal; 2019-05-09 17:23)
PROC: 02HV33Z Insertion of Infusion Device into Superior Vena Cava, Percutaneous Approach (ICD-10-PCS; 2019-05-15)
DX: A41.9 Sepsis, unspecified organism (principal); I50.23 Acute on chronic systolic (congestive) heart failure; N17.0 Acute kidney failure with tubular necrosis; J18.9 Pneumonia, unspecified organism; J96.01 Acute respiratory failure with hypoxia; C94.6 Myelodysplastic disease, not elsewhere classified; L03.115 Cellulitis of right lower limb; E87.1 Hypo-osmolality and hyponatremia; E87.2 Acidosis; I75.021 Atheroembolism of right lower extremity; I70.261 Atherosclerosis of native arteries of extremities with gangrene, right leg; D47.1 Chronic myeloproliferative disease; M86.171 Other acute osteomyelitis, right ankle and foot; I13.0 Hypertensive heart and chronic kidney disease with heart failure and stage 1 through stage 4 chronic kidney disease, or unspecified chronic kidney disease; B37.0 Candidal stomatitis; R18.8 Other ascites; J44.1 Chronic obstructive pulmonary disease with (acute) exacerbation; J98.11 Atelectasis; J44.0 Chronic obstructive pulmonary disease with (acute) lower respiratory infection; J96.12 Chronic respiratory failure with hypercapnia; I95.89 Other hypotension; E86.0 Dehydration; I48.2 Chronic atrial fibrillation; E87.5 Hyperkalemia; I27.81 Cor pulmonale (chronic); L97.519 Non-pressure chronic ulcer of other part of right foot with unspecified severity; I27.29 Other secondary pulmonary hypertension; E86.1 Hypovolemia; D64.81 Anemia due to antineoplastic chemotherapy; E83.51 Hypocalcemia; I34.0 Nonrheumatic mitral (valve) insufficiency; B95.62 Methicillin resistant Staphylococcus aureus infection as the cause of diseases classified elsewhere; D50.9 Iron deficiency anemia, unspecified; E55.9 Vitamin D deficiency, unspecified; S80.821A Blister (nonthermal), right lower leg, initial encounter; I70.202 Unspecified atherosclerosis of native arteries of extremities, left leg; E78.5 Hyperlipidemia, unspecified; K21.0 Gastro-esophageal reflux disease with esophagitis; I25.10 Atherosclerotic heart disease of native coronary artery without angina pectoris; M10.9 Gout, unspecified; N40.0 Benign prostatic hyperplasia without lower urinary tract symptoms; R68.0 Hypothermia, not associated with low environmental temperature; N50.89 Other specified disorders of the male genital organs; T45.1X5A Adverse effect of antineoplastic and immunosuppressive drugs, initial encounter; T38.0X5A Adverse effect of glucocorticoids and synthetic analogues, initial encounter; T36.8X5A Adverse effect of other systemic antibiotics, initial encounter; T50.2X5A Adverse effect of carbonic-anhydrase inhibitors, benzothiadiazides and other diuretics, initial encounter; I25.2 Old myocardial infarction; F10.21 Alcohol dependence, in remission; Z79.82 Long term (current) use of aspirin; Z79.02 Long term (current) use of antithrombotics/antiplatelets; Z79.1 Long term (current) use of non-steroidal anti-inflammatories (NSAID); Z79.52 Long term (current) use of systemic steroids; Z79.899 Other long term (current) drug therapy; Z86.19 Personal history of other infectious and parasitic diseases; Z86.14 Personal history of Methicillin resistant Staphylococcus aureus infection; Z90.49 Acquired absence of other specified parts of digestive tract; Z95.1 Presence of aortocoronary bypass graft; Z95.5 Presence of coronary angioplasty implant and graft; Z95.820 Peripheral vascular angioplasty status with implants and grafts; Z98.890 Other specified postprocedural states; Z87.891 Personal history of nicotine dependence; Z87.19 Personal history of other diseases of the digestive system; Z86.79 Personal history of other diseases of the circulatory system; Z80.1 Family history of malignant neoplasm of trachea, bronchus and lung; Z80.42 Family history of malignant neoplasm of prostate; Z82.49 Family history of ischemic heart disease and other diseases of the circulatory system
CPT/HCPCS: 36415; 36573; 36600; 64445; 71045; 71046; 76770; 80048; 80053; 80202; 81003; 82306; 82310; 82330; 82550; 82805; 83540; 83550; 83605; 83735; 84550; 85025; 85027; 85610; 85730; 87040; 87070; 87075; 87077; 87086; 87186; 87205; 88305; 88311; 93005; 93306; 93923; 93970; 94640; 96365; 96366; 99285

== ENCOUNTER 2019-05-24 07:50 | Inpatient (IN) | payer MEDICARE ==
[2019-05-24] MEDS ORDERED: methylPREDNISolone SOD SUCCI 125 MG/2 ML VIAL IV STA (08:06)
[2019-05-24] MEDS ORDERED: IPRATROPIUM-ALBUTEROL 3 ML NEB INHALATION STA (08:06)
--- NOTE | 2019-05-24 08:10 | ED ---
General Adult HPI - General Stated complaint: CARMELITA Time Seen by Provider: 05/24/19 07:53 Source: patient, RN notes reviewed Mode of arrival: EMS Limitations: no limitations - History of Present Illness Initial comments: Patient is a pleasant 79-year-old male presenting to the emergency Department with difficulty in breathing. Patient states symptoms have progressed over the past couple weeks, worse the past couple of days. Patient was recently discharged from the hospital with diagnosis of cellulitis. Patient does have history of similar dyspnea associated with both COPD and CHF. Patient does admit to having some swelling of his legs and arms. Patient states occasional cough. No fevers. No chest pain. - Related Data Home Medications Medication Instructions Recorded Confirmed Atorvastatin [Lipitor] 40 mg PO HS 09/27/14 05/24/19 Pantoprazole Sodium [Protonix] 40 mg PO DAILY 07/14/18 05/24/19 rOPINIRole HCL [Requip] 1 mg PO HS 02/12/19 05/24/19 Allopurinol [Zyloprim] 100 mg PO DAILY 03/31/19 05/24/19 Epoetin [place] [Procrit] 40,000 units IV ONCE 04/03/19 05/24/19 Acetaminophen Tab [Tylenol Tab] 650 mg PO Q6H PRN 05/24/19 05/24/19 Albuterol Nebulized [Ventolin 2.5 mg INHALATION RT-DAILY 05/24/19 05/24/19 Nebulized] Ergocalciferol [Vitamin D2 50,000 unit PO WE 05/24/19 05/24/19 (DRISDOL)] Ipratropium-Albuterol Nebulize 3 ml INHALATION RT-Q6H 05/24/19 05/24/19 [Duoneb 0.5 mg-3 mg/3 ml Soln] Liquid Protein 30 ml PO DAILY 05/24/19 05/24/19 Magnesium Hydroxide [Milk of 2,400 mg PO DAILY PRN 05/24/19 05/24/19 Magnesia] Metoprolol Tartrate [Lopressor] 25 mg PO TID@0600,1200,2000 05/24/19 05/24/19 Midodrine [ProAmatine] 5 mg PO TID@0630,1130,1630 05/24/19 05/24/19 Previous Rx's Medication Instructions Recorded Aspirin 81 mg PO DAILY #30 chew 04/07/18 Clopidogrel [Plavix] 75 mg PO DAILY #30 tab 04/07/18 Furosemide [Lasix] 40 mg PO BID@0900,1600 #60 tab 05/15/19 Doxycycline [Vibramycin] 100 mg PO BID #20 cap 05/18/19 HYDROcodone/APAP 10-325MG [[place] 1 tab PO Q6HR PRN 3 Days #12 tab 05/19/19 10-325] Allergies Allergy/AdvReac Type Severity Reaction Status Date / Time No Known Allergies Allergy Verified 05/24/19 08:11 Review of Systems ROS Statement: Those systems with pertinent positive or pertinent negative responses have been documented in the HPI. ROS Other: All systems not noted in ROS Statement are negative. Constitutional: Denies: fever, chills Eyes: Denies: eye pain ENT: Denies: ear pain Respiratory: Reports: dyspnea Cardiovascular: Denies: chest pain Endocrine: Reports: fatigue Gastrointestinal: Denies: abdominal pain Genitourinary: Denies: dysuria Musculoskeletal: Denies: back pain Skin: Denies: rash Neurological: Denies: headache Past Medical History Past Medical History: Atrial Flutter, Blood Disorder, Coronary Artery Disease (CAD), Heart Failure, GERD/Reflux, GI Bleed, Hyperlipidemia, Hypertension, Myocardial Infarction ([place]), Prostate Disorder, Vascular Disorder Additional Past Medical History / Comment(s): myeloproliferative disorder(leukocytosis and thrombocytosis), esophagitis, severe PAD, severe pulmonary hypertension , right-sided heart failure with severe pulmonary hypertension, BPH, Exercise intolerance Last Myocardial Infarction Date:: 2017 History of Any Multi-Drug Resistant Organisms: Acinetobacter (MDRO), MRSA Date of last positivie culture/infection: 05/08/19-MRSA; 11/18/17 Acinetobacter MDRO Source:: Foot-MRSA; Sputum-Acinetobacter Past Surgical History: Cholecystectomy, Coronary Bypass/CABG, Heart Catheterization, Hernia Repair Additional Past Surgical History / Comment(s): Cardiac catheterization on 10/04/2014, right femoral artery/common femoral artery endarterectomy. 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 tom inguinal hernia repair, EGD, colonoscopy. Cath with PCI to RCA 02/04/19. Cabg x3 2007. Past Anesthesia/Blood Transfusion Reactions: No Reported Reaction Past Psychological History: No Psychological Hx Reported Additional Psychological History / Comment(s): . . Smoking Status: Former smoker Past Alcohol Use History: Rare Additional Past Alcohol Use History / Comment(s): STARTED SMOKING AT AGE 16 QUIT AT AGE 40 SMOKED 1 1/2 PPD Past Drug Use History: None Reported - Past Family History Brother(s) Family Medical History: Cancer Additional Family Medical History / Comment(s): 2 with lung and 1 with prostate Mother Family Medical History: Myocardial Infarction (ME) Father History Unknown: Yes Additional Family Medical History / Comment(s): AT AGE 83 FROM "HARDENING OF THE ARTERIES" General Exam Limitations: no limitations General appearance: alert Head exam: Present: atraumatic, normocephalic Eye exam: Present: normal appearance, PERRL ENT exam: Present: mucous membranes dry Neck exam: Present: normal inspection Respiratory exam: Present: respiratory distress, decreased breath sounds Cardiovascular Exam: Present: regular rate, normal rhythm GI/Abdominal exam: Present: soft. Absent: tenderness Extremities exam: Present: normal inspection. Absent: pedal edema, calf tenderness Back exam: Present: normal inspection Neurological exam: Present: alert Psychiatric exam: Present: normal affect, normal mood Skin exam: Present: normal color Course Vital Signs 05/24/19 05/24/19 05/24/19 08:06 08:11 08:18 Temperature 97.6 F Pulse Rate 93 84 86 Respiratory 30 H Rate Blood Pressure 94/62 O2 Sat by Pulse 97 Oximetry EKG Findings - EKG Comments: EKG Findings:: A. fib with rate of 94. QRS 94. QT 396. QTc 495. Right axis. Inferior and lateral ST depression. Medical Decision Making - Medical Decision Making Patient reevaluated and improved. Patient only appears mildly short of breath at this time. Patient is in agreement with this. Patient and family updated on results and plan. Case was discussed in detail with Dr. Avery, who will admit covering for Dr. Franklin. - Lab Data Result diagrams: 05/24/19 08:21 05/24/19 08:21 Lab Results 05/24/19 05/24/19 05/24/19 Range/Units 08:21 08:21 08:21 WBC 73.1 H* (3.8-10.6) k/uL RBC 2.92 L (4.30-5.90) m/uL Hgb 7.9 L (13.0-17.5) gm/dL Hct 27.4 L (39.0-53.0) % MCV 93.8 (80.0-100.0) fL MCH 27.0 (25.0-35.0) pg MCHC 28.8 L (31.0-37.0) g/dL RDW 29.7 H (11.5-15.5) % Plt Count 197 (150-450) k/uL Neutrophils % (Manual) 92 % Band Neutrophils % 2 % Lymphocytes % (Manual) 1 % Monocytes % (Manual) 1 % Eosinophils % (Manual) 1 % Metamyelocytes % 2 % Myelocytes % 2 % Neutrophils # (Manual) 68.70 H (1.3-7.7) k/uL Lymphocytes # (Manual) 0.73 L (1.0-4.8) k/uL Monocytes # (Manual) 0.73 (0-1.0) k/uL Eosinophils # (Manual) 0.73 H (0-0.7) k/uL Metamyelocytes # (Man) 1.46 H (0) k/uL Myelocytes # (Manual) 1.46 H (0) k/uL Nucleated RBCs 4 H (0-0) /100 WBC Manual Slide Review Performed Large Platelets Present Polychromasia Present Hypochromasia Marked Poikilocytosis Marked Anisocytosis Marked Microcytosis Slight Macrocytosis Moderate Tear Drop Cells Present Fragmented RBCs Present PT (9.0-12.0) sec INR (<1.2) APTT (22.0-30.0) sec Sodium 137 (137-145) mmol/L Potassium 4.4 (3.5-5.1) mmol/L Chloride 103 (98-107) mmol/L Carbon Dioxide 26 (22-30) mmol/L Anion Gap 8 mmol/L BUN 40 H (9-20) mg/dL Creatinine 0.85 (0.66-1.25) mg/dL Est GFR (CKD-EPI)AfAm >90 (>60 ml/min/1.73 sqM) Est GFR (CKD-EPI)NonAf 83 (>60 ml/min/1.73 sqM) Glucose 137 H (74-99) mg/dL Calcium 6.8 L (8.4-10.2) mg/dL Total Bilirubin 2.1 H (0.2-1.3) mg/dL AST 36 (17-59) U/L ALT 60 (21-72) U/L Alkaline Phosphatase 197 H (38-126) U/L Troponin I (0.000-0.034) ng/mL NT-Pro-B Natriuret Pep 13800 pg/mL Total Protein 5.3 L (6.3-8.2) g/dL Albumin 2.7 L (3.5-5.0) g/dL 05/24/19 05/24/19 Range/Units 08:21 08:21 WBC (3.8-10.6) k/uL RBC (4.30-5.90) m/uL Hgb (13.0-17.5) gm/dL Hct (39.0-53.0) % MCV (80.0-100.0) fL MCH (25.0-35.0) pg MCHC (31.0-37.0) g/dL RDW (11.5-15.5) % Plt Count (150-450) k/uL Neutrophils % (Manual) % Band Neutrophils % % Lymphocytes % (Manual) % Monocytes % (Manual) % Eosinophils % (Manual) % Metamyelocytes % % Myelocytes % % Neutrophils # (Manual) (1.3-7.7) k/uL Lymphocytes # (Manual) (1.0-4.8) k/uL Monocytes # (Manual) (0-1.0) k/uL Eosinophils # (Manual) (0-0.7) k/uL Metamyelocytes # (Man) (0) k/uL Myelocytes # (Manual) (0) k/uL Nucleated RBCs (0-0) /100 WBC Manual Slide Review Large Platelets Polychromasia Hypochromasia Poikilocytosis Anisocytosis Microcytosis Macrocytosis Tear Drop Cells Fragmented RBCs PT 15.0 H (9.0-12.0) sec INR 1.5 H (<1.2) APTT 29.1 (22.0-30.0) sec Sodium (137-145) mmol/L Potassium (3.5-5.1) mmol/L Chloride (98-107) mmol/L Carbon Dioxide (22-30) mmol/L Anion Gap mmol/L BUN (9-20) mg/dL Creatinine (0.66-1.25) mg/dL Est GFR (CKD-EPI)AfAm (>60 ml/min/1.73 sqM) Est GFR (CKD-EPI)NonAf (>60 ml/min/1.73 sqM) Glucose (74-99) mg/dL Calcium (8.4-10.2) mg/dL Total Bilirubin (0.2-1.3) mg/dL AST (17-59) U/L ALT (21-72) U/L Alkaline Phosphatase (38-126) U/L Troponin I 0.076 H* (0.000-0.034) ng/mL NT-Pro-B Natriuret Pep pg/mL Total Protein (6.3-8.2) g/dL Albumin (3.5-5.0) g/dL - Radiology Data Radiology results: image reviewed (Chest x-ray showing CHF.) Disposition Clinical Impression: Congestive heart failure Disposition: ADMITTED IP TO THIS [facility] Is patient prescribed a controlled substance at d/c from ED?: No Referrals: Leon Franklin MD [Primary Care Provider] - 1-2 days Decision Time: 10:20
[2019-05-24 08:35] LABS: Anisocytosis Marked; HCT 27.4 % (39.0-53.0); HGB 7.9 gm/dL (13.0-17.5); Hypochromasia Marked; MCHC 28.8 g/dL (31.0-37.0); MCV 93.8 fL (80.0-100.0); Macrocytosis Moderate; Mean Platelet Volume 9.3; Microcytosis Slight; Platelet Count 197 k/uL (150-450); Poikilocytosis Marked; RBC 2.92 m/uL (4.30-5.90)
[2019-05-24 08:43] LABS: INR 1.5 (<1.2); Partial Thromboplastin Time 29.1 sec (22.0-30.0)
[2019-05-24 08:45] LABS: RDW 29.7 % (11.5-15.5)
--- NOTE | 2019-05-24 08:57 | XR ---
EXAMINATION TYPE: XR chest 2V DATE OF EXAM: 05/24/2019 HISTORY: difficulty breathing. REFERENCE: Previous study dated 05/17/2019. FINDINGS: There has been a midline sternotomy. The heart is enlarged. There is vascular congestion and pulmonary edema. The study is rotated with th e patient turned towards the right. This is giving an increased opacity in the right chest. There is confluent airspace disease on the right. This may represent confluent edema or pneumonia. There are s mall, bilateral effusions. IMPRESSION: FINDINGS CONSISTENT WITH CONGESTIVE HEART FAILURE. SUPERIMPOSED PNEUMONIA ON THE RIGHT CANNOT BE EXCL UDED.
[2019-05-24 08:59] LABS: ALT 60 U/L (21-72); AST 36 U/L (17-59); African American GFR (CKD) >90 (>60 ml/min/1.73 sqM); Albumin 2.7 g/dL (3.5-5.0); Alkaline Phosphatase 197 U/L (38-126); Anion Gap 8 mmol/L; Blood Urea Nitrogen 40 mg/dL (9-20); Calcium 6.8 mg/dL (8.4-10.2); Carbon Dioxide 26 mmol/L (22-30); Chloride 103 mmol/L (98-107); Glucose 137 mg/dL (74-99); Potassium 4.4 mmol/L (3.5-5.1); Sodium 137 mmol/L (137-145); Total Bilirubin 2.1 mg/dL (0.2-1.3); Total Protein 5.3 g/dL (6.3-8.2)
[2019-05-24 09:06] LABS: Band Neutrophils % 2 %; Metamyelocytes % 2 %; Myelocytes % 2 %; Neutrophils % (M) 92 %; Nucleated Red Blood Cells 4 /100 WBC (0-0); Total Cells Counted 200
[2019-05-24 09:07] LABS: Large Platelets Present; RBC Fragments Present; Tear Drop Cells Present
[2019-05-24 09:08] LABS: Polychromasia Present
[2019-05-24 09:25] LABS: Eosinophils # (M) 0.73 k/uL (0-0.7); Lymphocytes # (M) 0.73 k/uL (1.0-4.8); Metamyelocytes # (M) 1.46 k/uL (0); Monocytes # (M) 0.73 k/uL (0-1.0); Myelocytes # (M) 1.46 k/uL (0); WBC 73.1 k/uL (3.8-10.6)
[2019-05-24] MEDS ORDERED: ASPIRIN 325 MG TAB PO STA (10:23)
[2019-05-24] MEDS ORDERED: FUROSEMIDE 10 MG/ML 4 ML VIAL IV SCH (10:30)
[2019-05-24] MEDS ORDERED: IPRATROPIUM-ALBUTEROL 3 ML NEB INHALATION SCH (12:00)
[2019-05-24] MEDS: NITROGLYCERIN OINT 1 INCH/GM PACKET TOPICAL SCH ×4 (12:02→19:57)
--- NOTE | 2019-05-24 14:18 | P.HPIM ---
History of Present Illness H&P Date: 05/24/19 Patient is 79-year-old male with a PMH of diastolic CHF, atrial fibrillation (previously on Xarelto, DC'd due to GI bleeding), myeloproliferative disease, coronary artery disease, peripheral artery disease, hyperlipidemia, and hypertension who presented to the ED for gradually worsening shortness of breath. The patient had multiple recent admissions to [facility]. The patient was previously admitted on 04/21/19 for acute CHF exacerbation and was discharged on 04/27/19. The patient was subsequently admitted on 05/03/19 w/ R foot cellulitis vs ischemia. 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 The patient was also noted to have sepsis from RLE cellulitis for which he received Daptomycin and was transitioned to Doxycyline on discharge. The patient was discharged to the Rehab facility on 05/19/19. The family at the bedside supplemented the history and noted that the patient was unable to part icipate fully in the rehab exercises due to his chronic heel spurs and the pain from the recent R toe amputation. The patient's also stated that his mobility and activity had decreased significantly recently and due to being bed- bound, he has developed more bed-sores, notably one on his L heel. The patient endorsed on-going shortness of breath along with the pain in the feet. He denied chest pain, fever, or chills. He also denied diarrhea, nausea, or vomiting. He underwent an extensive evaluation in the ED w/ CXR showing pulmonary edema and EKG (as reviewed by me) revealing A-fib @ 94 bpm w/ TWI in leads V3-V6, I, II, and aVF. Laboratory evaluation revealed a WBC count of 73.1, Hgb 7.9, BUN 68660, Troponin 0.076, BUN 40, Cr 0.85, and Albumin 2.7. The patient was susbequently admitted for acute diastolic CHF exacerbation. Review of Systems Pertinent positives and negatives as discussed in HPI, a complete review of systems was performed and all other systems are negative. Past Medical History Past Medical History: Atrial Flutter, Blood Disorder, Coronary Artery Disease (CAD), Heart Failure, GERD/Reflux, GI Bleed, Hyperlipidemia, Hypertension, Myocardial Infarction ([place]), Prostate Disorder, Vascular Disorder Additional Past Medical History / Comment(s): myeloproliferative disorder(immanuel kocytosis and thrombocytosis), esophagitis, severe PAD, severe pulmonary hypertension , right-sided heart failure with severe pulmonary hypertension, BPH, Exercise intolerance Last Myocardial Infarction Date:: 2017 History of Any Multi-Drug Resistant Organisms: Acinetobacter (MDRO), MRSA Date of last positivie culture/infection: 05/08/19-MRSA; 11/18/17 Acinetobacter MDRO Source:: Foot-MRSA; Sputum-Acinetobacter Past Surgical History: Cholecystectomy, Coronary Bypass/CABG, Heart Catheterization, Hernia Repair Additional Past Surgical History / Comment(s): Cardiac catheterization on 10/04/2014, right femoral artery/common femoral artery endarterectomy. 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 tom inguinal hernia repair, EGD, colonoscopy. Cath with PCI to RCA 02/04/19. Cabg x3 2007. Past Anesthesia/Blood Transfusion Reactions: No Reported Reaction Past Psychological History: No Psychological Hx Reported Additional Psychological History / Comment(s): . . Smoking Status: Former smoker Past Alcohol Use History: Rare Additional Past Alcohol Use History / Comment(s): STARTED SMOKING AT AGE 16 QUIT AT AGE 40 SMOKED 1 1/2 PPD Past Drug Use History: None Reported - Past Family History Brother(s) Family Medical History: Cancer Additional Family Medical History / Comment(s): 2 with lung and 1 with prostate Mother Family Medical History: Myocardial Infarction ([place]) Father History Unknown: Yes Additional Family Medical History / Comment(s): AT AGE 83 FROM "HARDENING OF THE ARTERIES" Medications and Allergies Home Medications Medication Instructions Recorded Confirmed Type Atorvastatin [Lipitor] 40 mg PO HS 09/27/14 05/24/19 History Aspirin 81 mg PO DAILY #30 chew 04/07/18 05/24/19 Rx Clopidogrel [Plavix] 75 mg PO DAILY #30 tab 04/07/18 05/24/19 Rx Pantoprazole Sodium [Protonix] 40 mg PO DAILY 07/14/18 05/24/19 History rOPINIRole HCL [Requip] 1 mg PO HS 02/12/19 05/24/19 History Allopurinol [Zyloprim] 100 mg PO DAILY 03/31/19 05/24/19 History Epoetin [place] [Procrit] 40,000 units IV ONCE 04/03/19 05/24/19 History Furosemide [Lasix] 40 mg PO BID@0900,1600 #60 tab 05/15/19 05/24/19 Rx Doxycycline [Vibramycin] 100 mg PO BID #20 cap 05/18/19 05/24/19 Rx HYDROcodone/APAP 10-325MG [[place] 1 tab PO Q6HR PRN 3 Days #12 tab 05/19/19 05/24/19 Rx 10-325] Acetaminophen Tab [Tylenol Tab] 650 mg PO Q6H PRN 05/24/19 05/24/19 History Albuterol Nebulized [Ventolin 2.5 mg INHALATION RT-DAILY 05/24/19 05/24/19 History Nebulized] Ergocalciferol [Vitamin D2 50,000 unit PO WE 05/24/19 05/24/19 History (DRISDOL)] Ipratropium-Albuterol Nebulize 3 ml INHALATION RT-Q6H 05/24/19 05/24/19 History [Duoneb 0.5 mg-3 mg/3 ml Soln] Liquid Protein 30 ml PO DAILY 05/24/19 05/24/19 History Magnesium Hydroxide [Milk of 2,400 mg PO DAILY PRN 05/24/19 05/24/19 History Magnesia] Metoprolol Tartrate [Lopressor] 25 mg PO TID@0600,1200,2000 05/24/19 05/24/19 History Midodrine [ProAmatine] 5 mg PO TID@0630,1130,1630 05/24/19 05/24/19 History Allergies Allergy/AdvReac Type Severity Reaction Status Date / Time No Known Allergies Allergy Verified 05/24/19 08:11 Physical Exam Vitals: Vital Signs Temp Pulse Resp BP Pulse Ox 05/24/19 12:00 102 H 23 116/68 98 05/24/19 11:30 113 H 21 106/95 99 05/24/19 11:06 96 05/24/19 11:00 99 24 99/62 98 05/24/19 10:30 90 25 H 96/76 98 05/24/19 10:00 91 29 H 96/72 98 05/24/19 09:30 92 31 H 95/62 93 L 05/24/19 09:00 100 15 100/70 97 05/24/19 08:30 92 26 H 94/62 98 05/24/19 08:18 86 05/24/19 08:11 84 05/24/19 08:06 97.6 F 93 30 H 94/62 97 Intake and Output 05/23/19 05/24/19 05/24/19 22:59 06:59 14:59 Other: Weight 68.039 kg General: non toxic, elderly frail male, no distress, appears at stated age Derm: R foot dressing in place, L heel 2 cm x 2 cm pressure-ulcer w/ possibly dry gangrene, scattered ecchymoses over chest and abdomen Head: atraumatic, normocephalic, symmetric Eyes: EOMI, no lid lag, anicteric sclera, pupils equal round reactive to light ENT: Nose and ears atraumatic, no thrush, no pharyngeal erythema Neck: No thyromegaly, no cervical lymphadenopathy, trachea midline, supple Mouth: no lip lesion, mucus membranes moist Cardiovascular: S1S2 irregularly irregular, no murmur, poor doralis pedis pulses tom, 1+ tom LE pitting edema Lungs: Bilateral rales, no rhonchi, no accessory muscle use Abdominal: soft, nontender to palpation, no guarding, no appreciable organomegaly, normal bowel sounds Ext: no gross muscle atrophy, muscle strength 4 out of 5 in all 4 extremities grossly, no contractures, Neuro: CN II-XI grossly intact, no focal deficits Psych: Alert, oriented to person, place, and time, appropriate affect Results CBC & Chem 7: 05/24/19 08:21 05/24/19 08:21 Labs: Abnormal Lab Results - Last 24 Hours (Table) 05/24/19 05/24/19 05/24/19 Range/Units 08:21 08:21 08:21 WBC 73.1 H* (3.8-10.6) k/uL RBC 2.92 L (4.30-5.90) m/uL Hgb 7.9 L (13.0-17.5) gm/dL Hct 27.4 L (39.0-53.0) % MCHC 28.8 L (31.0-37.0) g/dL RDW 29.7 H (11.5-15.5) % Neutrophils # (Manual) 68.70 H (1.3-7.7) k/uL Lymphocytes # (Manual) 0.73 L (1.0-4.8) k/uL Eosinophils # (Manual) 0.73 H (0-0.7) k/uL Metamyelocytes # (Man) 1.46 H (0) k/uL Myelocytes # (Manual) 1.46 H (0) k/uL Nucleated RBCs 4 H (0-0) /100 WBC PT 15.0 H (9.0-12.0) sec INR 1.5 H (<1.2) BUN 40 H (9-20) mg/dL Glucose 137 H (74-99) mg/dL Calcium 6.8 L (8.4-10.2) mg/dL Total Bilirubin 2.1 H (0.2-1.3) mg/dL Alkaline Phosphatase 197 H (38-126) U/L Troponin I (0.000-0.034) ng/mL Total Protein 5.3 L (6.3-8.2) g/dL Albumin 2.7 L (3.5-5.0) g/dL // Range/Units 08:21 WBC (3.8-10.6) k/uL RBC (4.30-5.90) m/uL Hgb (13.0-17.5) gm/dL Hct (39.0-53.0) % MCHC (31.0-37.0) g/dL RDW (11.5-15.5) % Neutrophils # (Manual) (1.3-7.7) k/uL Lymphocytes # (Manual) (1.0-4.8) k/uL Eosinophils # (Manual) (0-0.7) k/uL Metamyelocytes # (Man) (0) k/uL Myelocytes # (Manual) (0) k/uL Nucleated RBCs (0-0) /100 WBC PT (9.0-12.0) sec INR (<1.2) BUN (9-20) mg/dL Glucose (74-99) mg/dL Calcium (8.4-10.2) mg/dL Total Bilirubin (0.2-1.3) mg/dL Alkaline Phosphatase (38-126) U/L Troponin I 0.076 H* (0.000-0.034) ng/mL Total Protein (6.3-8.2) g/dL Albumin (3.5-5.0) g/dL Assessment and Plan Plan: Acute diastolic CHF exacerbation -C/w IV Lasix 40 mg q12h -Fluid restriction, I/Os, daily weights -Cardiology consult -Cardiac monitoring -Monitor electrolytes and replace accordingly Troponin elevation, likely secondary to CHF exacerbation -Will trend -Cardiology consulted -Cardiac monitoring L heel ulcer w/ possible dry gangrene -Consult Vascular surgery in light of recent R toe amputation R foot cellulitis -C/w Doxycycline to complete course Myeloproiferative disorder w/ Leukocytosis and normocytic anemia -Follows w/ Dr Miller -WBC count usually 30-40k -Elevated likely secondary to acute illness -Monitor for now -Reviewed prior anemia workup Protein calorie malnutrition w/ Hypoalbuminemia -Garment Alteration Examiner consult Permanent Atrial Fibrillation -Not on anticoagulation due to hx of GIB -C/w Aspirin and Plavix Elevated Total Bilirubin, possibly due to acute stressors -Monitor for now Chronic conditions: CAD, HTN, HLD -Resume home medications DVT prophylaxis -Heparin The patient is admitted with an anticipated greater than 2 midnight stay for evaluation of acute CHF exacerbation CODE STATUS: No Code w/ instructions Discussed with: Patient, , Daughter Anticipated discharge date: 05/29/[address]: Rehab Facility A total of 30 minutes was spent on the care of this complex patient more than 50% of the time was spent in counseling and care coordination.
[2019-05-24] MEDS: IPRATROPIUM-ALBUTEROL 3 ML NEB INHALATION PRN ×2 (16:51→21:21)
[2019-05-24] MEDS: MIDODRINE 5 MG TAB PO SCH (17:23)
[2019-05-24] MEDS: FUROSEMIDE 10 MG/ML 4 ML VIAL IV SCH ×2 (17:23→19:56)
[2019-05-24] MEDS: HEPARIN SODIUM,PORCINE 5,000 UNIT/ML 1 ML VIAL SQ SCH ×2 (17:24→23:10)
[2019-05-24] MEDS: DOXYCYCLINE 100 MG CAP PO SCH (19:56)
[2019-05-24] MEDS: ATORVASTATIN 40 MG TAB PO SCH (19:56)
[2019-05-24] MEDS: HYDROcodone/APAP 10-325MG 1 EACH TAB PO PRN (19:57)
--- NOTE | 2019-05-25 00:03 | P.CONS ---
History of Present Illness - Reason for Consult Consult date: 05/24/19 Wounds Requesting physician: Pj Avery - Chief Complaint Shortness of breath x few days - History of Present Illness Patient is 79-year-old male recently admitted at this facility patient did have right fourth toe gangrene status post amputation of right fourth toe culture were positive for MRSA patient also have a blister on her right medial leg status post debridement with the Santyl wound on the right medial leg culture were positive for MSSA patient has been treated with IV antibiotic therapy for 2 weeks and was discharged about a week ago to the skilled nursing on oral doxycycline as they will not take the patient on IV daptomycin Patient has not been brought back to [facility] ER with the complaints of increasing shortness of breath has been progressively getting worse over the last few days patient denies having any chest pain very minimal cough which is dry in nature. Therefore no nausea no vomiting patient denies any worsening pain to the right foot or right lower medial leg wound area the patient has now developed a deep tissue injury to the left heel since he left the hospital and he has been complaining of pain to the left heel more of a dull aching to sharp about 6 out of 10 and no radiation, patient did not have any fever this admission he did have elevated white count from his underlying blood dyscrasia Review of Systems Positive points has been mentioned in HPI rest of the systems are negative Past Medical History Past Medical History: Atrial Flutter, Blood Disorder, Coronary Artery Disease (CAD), Heart Failure, GERD/Reflux, GI Bleed, Hyperlipidemia, Hypertension, Myocardial Infarction (HI), Prostate Disorder, Vascular Disorder Additional Past Medical History / Comment(s): myeloproliferative disorder(leukocytosis and thrombocytosis), esophagitis, severe PAD, severe pulmonary hypertension , right-sided heart failure with severe pulmonary hypertension, BPH, Exercise intolerance Last Myocardial Infarction Date:: 2017 History of Any Multi-Drug Resistant Organisms: Acinetobacter (MDRO), MRSA Year Discovered:: 05/08/19-MRSA; 11/18/17 Acinetobacter MDRO Source:: Foot-MRSA; Sputum-Acinetobacter Past Surgical History: Cholecystectomy, Coronary Bypass/CABG, Heart Catheterization, Hernia Repair Additional Past Surgical History / Comment(s): Cardiac catheterization on , right femoral artery/common femoral artery endarterectomy. 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 tom inguinal hernia repair, EGD, colonoscopy. Cath with PCI to RCA 02/04/19. Cabg x3 2007. Past Anesthesia/Blood Transfusion Reactions: No Reported Reaction Smoking Status: Former smoker - Past Family History Brother(s) Family Medical History: Cancer Additional Family Medical History / Comment(s): 2 with lung and 1 with prostate Mother Family Medical History: Myocardial Infarction (HI) Father History Unknown: Yes Additional Family Medical History / Comment(s): AT AGE 83 FROM "HARDENING OF THE ARTERIES" Medications and Allergies Home Medications Medication Instructions Recorded Confirmed Type Atorvastatin [Lipitor] 40 mg PO HS 09/27/14 05/24/19 History Aspirin 81 mg PO DAILY #30 chew 04/07/18 05/24/19 Rx Clopidogrel [Plavix] 75 mg PO DAILY #30 tab 04/07/18 05/24/19 Rx Pantoprazole Sodium [Protonix] 40 mg PO DAILY 07/14/18 05/24/19 History rOPINIRole HCL [Requip] 1 mg PO HS 02/12/19 05/24/19 History Allopurinol [Zyloprim] 100 mg PO DAILY 03/31/19 05/24/19 History Epoetin [place] [Procrit] 40,000 units IV ONCE 04/03/19 05/24/19 History Furosemide [Lasix] 40 mg PO BID@0900,1600 #60 tab 05/15/19 05/24/19 Rx Doxycycline [Vibramycin] 100 mg PO BID #20 cap 05/18/19 05/24/19 Rx HYDROcodone/APAP 10-325MG [[place] 1 tab PO Q6HR PRN 3 Days #12 tab 05/19/19 05/24/19 Rx 10-325] Acetaminophen Tab [Tylenol Tab] 650 mg PO Q6H PRN 05/24/19 05/24/19 History Albuterol Nebulized [Ventolin 2.5 mg INHALATION RT-DAILY 05/24/19 05/24/19 History Nebulized] Ergocalciferol [Vitamin D2 50,000 unit PO WE 05/24/19 05/24/19 History (DRISDOL)] Ipratropium-Albuterol Nebulize 3 ml INHALATION RT-Q6H 05/24/19 05/24/19 History [Duoneb 0.5 mg-3 mg/3 ml Soln] Liquid Protein 30 ml PO DAILY 05/24/19 05/24/19 History Magnesium Hydroxide [Milk of 2,400 mg PO DAILY PRN 05/24/19 05/24/19 History Magnesia] Metoprolol Tartrate [Lopressor] 25 mg PO TID@0600,1200,2000 05/24/19 05/24/19 History Midodrine [ProAmatine] 5 mg PO TID@0630,1130,1630 05/24/19 05/24/19 History Allergies Allergy/AdvReac Type Severity Reaction Status Date / Time No Known Allergies Allergy Verified 05/24/19 08:11 Physical Exam Vitals: Vital Signs Temp Pulse Pulse Resp BP BP Pulse Ox 05/24/19 16:51 92 98 05/24/19 15:05 97.3 F L 105 H 28 H 86/47 98 05/24/19 14:40 97.6 F 05/24/19 14:00 103 H 27 H 101/56 100 05/24/19 13:30 103 H 23 106/60 99 05/24/19 13:00 93 24 105/82 98 05/24/19 12:30 109 H 22 116/68 98 05/24/19 12:00 102 H 23 116/68 98 05/24/19 11:30 113 H 21 106/95 99 05/24/19 11:06 96 05/24/19 11:00 99 24 99/62 98 05/24/19 10:30 90 25 H 96/76 98 05/24/19 10:00 91 29 H 96/72 98 05/24/19 09:30 92 31 H 95/62 93 L 05/24/19 09:00 100 15 100/70 97 05/24/19 08:30 92 26 H 94/62 98 05/24/19 08:18 86 05/24/19 08:11 84 05/24/19 08:06 97.6 F 93 30 H 94/62 97 Intake and Output 05/24/19 05/24/19 05/24/19 06:59 14:59 22:59 Other: Weight 68.039 kg GENERAL DESCRIPTION: An elderly male lying in bed, no distress. No tachypnea or accessory muscle of respiration use. HEENT: Shows Pallor , no scleral icterus. Oral mucous membrane is dry. No pharyngeal erythema or thrush NECK: Trachea central, no thyromegaly. LUNGS: Unlabored breathing. Clear to auscultation anteriorly. No wheeze or crackle. HEART: S1, S2, regular rate and rhythm. No loud murmur ABDOMEN: Soft, no tenderness , guarding or rigidity, no organomegaly EXTREMITIES: Right fourth toe amputated site wound base is some necrotic changes no slough tissue surrounding redness Right lower medial leg wound with slough tissue the base surrounding swelling but no redness Left heel with a deep tissue injury no cellulitis SKIN: No rash, no masses palpable. NEUROLOGICAL: The patient is awake, alert, oriented x3, mood and affect normal. Results CBC & Chem 7: 05/24/19 08:21 05/24/19 08:21 Labs: Abnormal Lab Results - Last 24 Hours (Table) 05/24/19 05/24/19 05/24/19 Range/Units 08:21 08:21 08:21 WBC 73.1 H* (3.8-10.6) k/uL RBC 2.92 L (4.30-5.90) m/uL Hgb 7.9 L (13.0-17.5) gm/dL Hct 27.4 L (39.0-53.0) % MCHC 28.8 L (31.0-37.0) g/dL RDW 29.7 H (11.5-15.5) % Neutrophils # (Manual) 68.70 H (1.3-7.7) k/uL Lymphocytes # (Manual) 0.73 L (1.0-4.8) k/uL Eosinophils # (Manual) 0.73 H (0-0.7) k/uL Metamyelocytes # (Man) 1.46 H (0) k/uL Myelocytes # (Manual) 1.46 H (0) k/uL Nucleated RBCs 4 H (0-0) /100 WBC PT 15.0 H (9.0-12.0) sec INR 1.5 H (<1.2) BUN 40 H (9-20) mg/dL Glucose 137 H (74-99) mg/dL Calcium 6.8 L (8.4-10.2) mg/dL Total Bilirubin 2.1 H (0.2-1.3) mg/dL Alkaline Phosphatase 197 H (38-126) U/L Troponin I (0.000-0.034) ng/mL Total Protein 5.3 L (6.3-8.2) g/dL Albumin 2.7 L (3.5-5.0) g/dL 05/24/ Range/Units 08:21 WBC (3.8-10.6) k/uL RBC (4.30-5.90) m/uL Hgb (13.0-17.5) gm/dL Hct (39.0-53.0) % MCHC (31.0-37.0) g/dL RDW (11.5-15.5) % Neutrophils # (Manual) (1.3-7.7) k/uL Lymphocytes # (Manual) (1.0-4.8) k/uL Eosinophils # (Manual) (0-0.7) k/uL Metamyelocytes # (Man) (0) k/uL Myelocytes # (Manual) (0) k/uL Nucleated RBCs (0-0) /100 WBC PT (9.0-12.0) sec INR (<1.2) BUN (9-20) mg/dL Glucose (74-99) mg/dL Calcium (8.4-10.2) mg/dL Total Bilirubin (0.2-1.3) mg/dL Alkaline Phosphatase (38-126) U/L Troponin I 0.076 H* (0.000-0.034) ng/mL Total Protein (6.3-8.2) g/dL Albumin (3.5-5.0) g/dL Assessment and Plan Assessment: 1-patient with right fourth toe amputated site wound with minimal necrotic changes but no cellulitis 2-right lower medial leg wound with slough tissue but no cellulitis 3-left heel deep tissue injury no cellulitis Plan: 1-local wound care to the right fourth toe amputated site with Aquacel silver dressing to change every 48 hours 2-local wound care to the right lower medial leg wound with medahoney followed by moist dressing to be changed daily 3-heel protector to the left heel, no need for any local creams daily dry 4-continue with doxycycline 100 mg twice a day we will follow on clinical condition and culture to further adjust medication if needed Thank you for this consultation will follow this patient along with you Time with Patient: Greater than 30
[2019-05-25] MEDS: PANTOPRAZOLE 40 MG TABLET PO SCH (05:41)
[2019-05-25] MEDS: MIDODRINE 5 MG TAB PO SCH ×3 (05:41→15:32)
[2019-05-25 07:26] LABS: Anisocytosis Marked; HCT 27.9 % (39.0-53.0); Hypochromasia Marked; MCH 27.2 pg (25.0-35.0); MCHC 28.5 g/dL (31.0-37.0); MCV 95.5 fL (80.0-100.0); Macrocytosis Marked; Mean Platelet Volume 8.9; Microcytosis Slight; Platelet Count 208 k/uL (150-450); Poikilocytosis Marked; RBC 2.93 m/uL (4.30-5.90)
[2019-05-25 07:34] LABS: Albumin 2.7 g/dL (3.5-5.0); Calcium 6.8 mg/dL (8.4-10.2); Potassium 4.8 mmol/L (3.5-5.1); Total Bilirubin 1.7 mg/dL (0.2-1.3); Total Protein 5.3 g/dL (6.3-8.2)
[2019-05-25 07:48] LABS: RDW 29.2 % (11.5-15.5); WBC 92.9 k/uL (3.8-10.6)
[2019-05-25] MEDS: IPRATROPIUM-ALBUTEROL 3 ML NEB INHALATION PRN ×3 (08:38→16:34)
[2019-05-25] MEDS: HEPARIN SODIUM,PORCINE 5,000 UNIT/ML 1 ML VIAL SQ SCH ×3 (08:41→22:51)
[2019-05-25] MEDS: FUROSEMIDE 10 MG/ML 4 ML VIAL IV SCH ×2 (08:41→19:42)
[2019-05-25] MEDS: ASPIRIN 81 MG PO SCH (08:42)
[2019-05-25] MEDS: DOXYCYCLINE 100 MG CAP PO SCH ×2 (08:42→19:41)
[2019-05-25] MEDS: NITROGLYCERIN OINT 1 INCH/GM PACKET TOPICAL SCH (08:42)
[2019-05-25] MEDS: CLOPIDOGREL 75 MG TAB PO SCH (08:42)
[2019-05-25] MEDS: ALLOPURINOL 100 MG TAB PO SCH (08:42)
[2019-05-25] MEDS ORDERED: ASPIRIN 81 MG PO SCH (09:00)
[2019-05-25] MEDS ORDERED: ASPIRIN 325 MG TAB PO SCH (09:00)
--- NOTE | 2019-05-25 10:13 | CONS ---
CONSULTATION CHIEF COMPLAINT: Leg edema and shortness of breath. This is a 79-year-old gentleman with history of coronary artery disease, status post bypass surgery, status post prior percutaneous interventions, peripheral arterial disease, status post prior angioplasty, pulmonary hypertension, chronic atrial fibrillation, history of prior diastolic heart failure, history of amputation of the toes of the right foot, who presented to hospital complaining of shortness of breath and leg edema. The patient was in the hospital at the end of April, was discharged home, came back with gangrene of the toe of the right leg, underwent surgery, was in the prison and then he comes back again. The patient complains of weight gain, moderate intensity shortness of breath and moderate leg edema. He is treated with intravenous diuretics with significant improvement in his symptoms. The patient had an echo in February of this year that showed an ejection fraction of 55%. He has moderate mitral regurgitation and severe pulmonary hypertension. The patient is not a candidate for anticoagulation for his atrial fibrillation because of GI bleed. The patient was supposed to undergo a Watchman Device at [facility], but has not been able to do this because of recurrent hospitalizations. The current admission seems to be related to an acute exacerbation of chronic diastolic heart failure. PAST MEDICAL HISTORY: Past medical history is significant for CAD, status post CABG, GI bleed, pulmonary hypertension, peripheral arterial disease, chronic atrial fibrillation. MEDICATIONS: Medications at home include Requip, Protonix, midodrine, Lopressor, DuoNeb, [place], Lasix, Procrit, Vibramycin, Plavix Lipitor, Zyloprim. ALLERGIES: There are no known drug allergies. FAMILY HISTORY: Negative for premature coronary artery disease. SOCIAL HISTORY: Negative for current smoking, EtOH abuse or drug abuse. REVIEW OF SYSTEMS: HEENT is unremarkable. CARDIAC: As described above. RESPIRATORY: As described above. GI: Significant for GI bleed. GENITOURINARY: Negative. MUSCULOSKELETAL: Significant for peripheral arterial disease and amputation of a toe on the right foot. Rest of the system review is not relevant. PHYSICAL EXAMINATION: On exam, heart rate is 90 beats per minute, blood pressure is 101/50, respiratory rate is 18. Chest exam reveals good air entry bilaterally. I do not hear any crackles or rhonchi. Heart exam reveals first and second heart sounds. A grade 3/6 systolic murmur at the apex. Abdomen is soft. Examination of the extremities reveals bilateral moderate pitting edema. His dorsalis pedis pulses are diminished on both sides. Posterior tibials are diminished too. He had amputation of the right toe. LABS: Labs show that the hemoglobin is 8, potassium is 4.8, creatinine is 1.1. Tropes are in the herbert zone at 0.07, 0.07 and 0.06. BUN is 48. ASSESSMENT: 1. Acute exacerbation of chronic diastolic heart failure. 2. Chronic atrial fibrillation. 3. Severe pulmonary hypertension. 4. Coronary artery disease, status post coronary artery bypass grafting, status post prior angioplasties. 5. Peripheral arterial disease. 6. History of hypertension. PLAN: Will treat the patient with intravenous diuretics. He is not a candidate for long-term anticoagulation due to GI bleed. He is already on aspirin and Plavix which he will continue. He will continue the statin. The patient is not a candidate for EARNEST inhibitors or beta blockers because of history of . The patient is currently on midodrine. He has elevated troponins, but there is no definite pattern to them. I do not believe he has acute myocardial ischemia. Will follow the patient throughout this hospitalization. MMODL / IJN: [id number] /
--- NOTE | 2019-05-25 11:06 | P.GSCN ---
History of Present Illness Consult date: 05/25/19 Reason for Consult: BLE wounds History of present illness: Patient is 79-year-old male with a history of PAD and recent right 4th toe amputation for gangrene adn wound debridement. He also has a history of diastolic CHF, atrial fibrillation, myeloproliferative disease, coronary artery disease, hyperlipidemia, and hypertension. He presented to the ED for SOB. He has had multiple recent admissions to [facility] The patient was dis charged most recently to the Rehab facility on 05/19/19. He has been relatively bed bound since this admission for pain and breathing issues. He currently denies any pain in his lower extremities. He denied chest pain, fever, or chills. He also denied diarrhea, nausea, or vomiting. The patient was lowe sbequently admitted for acute diastolic CHF exacerbation. Review of Systems pertinent positives and negatives per the HPI Past Medical History Past Medical History: Atrial Flutter, Blood Disorder, Coronary Artery Disease (CAD), Heart Failure, GERD/Reflux, GI Bleed, Hyperlipidemia, Hypertension, Myocardial Infarction (CT), Prostate Disorder, Vascular Disorder Additional Past Medical History / Comment(s): myeloproliferative disorder(leukocytosis and thrombocytosis), esophagitis, severe PAD, severe pulmo nary hypertension , right-sided heart failure with severe pulmonary hypertension, BPH, Exercise intolerance Last Myocardial Infarction Date:: 2017 History of Any Multi-Drug Resistant Organisms: Acinetobacter (MDRO), MRSA Year Discovered:: 05/08/19-MRSA; 11/18/17 Acinetobacter MDRO Source:: Foot-MRSA; Sputum-Acinetobacter Past Surgical History: Cholecystectomy, Coronary Bypass/CABG, Heart Catheterization, Hernia Repair Additional Past Surgical History / Comment(s): Cardiac catheterization on 10/04/2014, right femoral artery/common femoral artery endarterectomy. 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 tom inguinal hernia repair, EGD, colonoscopy. Cath with PCI to RCA 02/04/19. Cabg x3 2007. Past Anesthesia/Blood Transfusion Reactions: No Reported Reaction Smoking Status: Former smoker - Past Family History Brother(s) Family Medical History: Cancer Additional Family Medical History / Comment(s): 2 with lung and 1 with prostate Mother Family Medical History: Myocardial Infarction (CT) Father History Unknown: Yes Additional Family Medical History / Comment(s): AT AGE 83 FROM "HARDENING OF THE ARTERIES" Medications and Allergies Home Medications Medication Instructions Recorded Confirmed Type Atorvastatin [Lipitor] 40 mg PO HS 09/27/14 05/24/19 History Aspirin 81 mg PO DAILY #30 chew 04/07/18 05/24/19 Rx Clopidogrel [Plavix] 75 mg PO DAILY #30 tab 04/07/18 05/24/19 Rx Pantoprazole Sodium [Protonix] 40 mg PO DAILY 07/14/18 05/24/19 History rOPINIRole HCL [Requip] 1 mg PO HS 02/12/19 05/24/19 History Allopurinol [Zyloprim] 100 mg PO DAILY 03/31/19 05/24/19 History Epoetin [place] [Procrit] 40,000 units IV ONCE 04/03/19 05/24/19 History Furosemide [Lasix] 40 mg PO BID@0900,1600 #60 tab 05/15/19 05/24/19 Rx Doxycycline [Vibramycin] 100 mg PO BID #20 cap 05/18/19 05/24/19 Rx HYDROcodone/APAP 10-325MG [[place] 1 tab PO Q6HR PRN 3 Days #12 tab 05/19/19 05/24/19 Rx 10-325] Acetaminophen Tab [Tylenol Tab] 650 mg PO Q6H PRN 05/24/19 05/24/19 History Albuterol Nebulized [Ventolin 2.5 mg INHALATION RT-DAILY 05/24/19 05/24/19 Hi story Nebulized] Ergocalciferol [Vitamin D2 50,000 unit PO WE 05/24/19 05/24/19 History (DRISDOL)] Ipratropium-Albuterol Nebulize 3 ml INHALATION RT-Q6H 05/24/19 05/24/19 History [Duoneb 0.5 mg-3 mg/3 ml Soln] Liquid Protein 30 ml PO DAILY 05/24/19 05/24/19 History Magnesium Hydroxide [Milk of 2,400 mg PO DAILY PRN 05/24/19 05/24/19 History Magnesia] Metoprolol Tartrate [Lopressor] 25 mg PO TID@0600,1200,2000 05/24/19 05/24/19 History Midodrine [ProAmatine] 5 mg PO TID@0630,1130,1630 05/24/19 05/24/19 History Allergies Allergy/AdvReac Type Severity Reaction Status Date / Time No Known Allergies Allergy Verified 05/24/19 08:11 Surgical - Exam Vital Signs Temp Pulse Resp BP Pulse Ox 97.6 F 93 30 H 94/62 97 05/24/19 08:06 05/24/19 08:06 05/24/19 08:06 05/24/19 08:06 05/24/19 08:06 Mild resp distress on O2 generalized edema heart irregular abd soft, non tender, non distended BLE warm, dry. There is an area of pressure wound with likely deep tissue injury . No jun necrosis. right 5th toe amp site clean, good granulation tissue. Results - Labs 05/25/19 06:24 05/25/19 06:24 Abnormal Lab Results - Last 24 Hours (Table) 05/24/19 05/24/19 05/25/19 Range/Units 16:04 21:18 06:24 WBC 92.9 H* (3.8-10.6) k/uL RBC 2.93 L (4.30-5.90) m/uL Hgb 8.0 L (13.0-17.5) gm/dL Hct 27.9 L (39.0-53.0) % MCHC 28.5 L (31.0-37.0) g/dL RDW 29.2 H (11.5-15.5) % Macrocytosis Marked A Sodium (137-145) mmol/L BUN (9-20) mg/dL Glucose (74-99) mg/dL Calcium (8.4-10.2) mg/dL Total Bilirubin (0.2-1.3) mg/dL Alkaline Phosphatase (38-126) U/L Troponin I 0.073 H* 0.067 H* (0.000-0.034) ng/mL Total Protein (6.3-8.2) g/dL Albumin (3.5-5.0) g/dL 05/25/19 Range/Units 06:24 WBC (3.8-10.6) k/uL RBC (4.30-5.90) m/uL Hgb (13.0-17.5) gm/dL Hct (39.0-53.0) % MCHC (31.0-37.0) g/dL RDW (11.5-15.5) % Macrocytosis Sodium 136 L (137-145) mmol/L BUN 48 H (9-20) mg/dL Glucose 204 H (74-99) mg/dL Calcium 6.8 L (8.4-10.2) mg/dL Total Bilirubin 1.7 H (0.2-1.3) mg/dL Alkaline Phosphatase 205 H (38-126) U/L Troponin I (0.000-0.034) ng/mL Total Protein 5.3 L (6.3-8.2) g/dL Albumin 2.7 L (3.5-5.0) g/dL Diabetes panel 05/25/19 Range/Units 06:24 Sodium 136 L (137-145) mmol/L Potassium 4.8 (3.5-5.1) mmol/L Chloride 101 (98-107) mmol/L Carbon Dioxide 23 (22-30) mmol/L BUN 48 H (9-20) mg/dL Creatinine 1.14 (0.66-1.25) mg/dL Glucose 204 H (74-99) mg/dL Calcium 6.8 L (8.4-10.2) mg/dL AST 23 (17-59) U/L ALT 50 (21-72) U/L Alkaline Phosphatase 205 H (38-126) U/L Total Protein 5.3 L (6.3-8.2) g/dL Albumin 2.7 L (3.5-5.0) g/dL Calcium panel 05/25/19 Range/Units 06:24 Calcium 6.8 L (8.4-10.2) mg/dL Albumin 2.7 L (3.5-5.0) g/dL Pituitary panel 05/25/19 Range/Units 06:24 Sodium 136 L (137-145) mmol/L Potassium 4.8 (3.5-5.1) mmol/L Chloride 101 (98-107) mmol/L Carbon Dioxide 23 (22-30) mmol/L BUN 48 H (9-20) mg/dL Creatinine 1.14 (0.66-1.25) mg/dL Glucose 204 H (74-99) mg/dL Calcium 6.8 L (8.4-10.2) mg/dL Adrenal panel 05/25/19 Range/Units 06:24 Sodium 136 L (137-145) mmol/L Potassium 4.8 (3.5-5.1) mmol/L Chloride 101 (98-107) mmol/L Carbon Dioxide 23 (22-30) mmol/L BUN 48 H (9-20) mg/dL Creatinine 1.14 (0.66-1.25) mg/dL Glucose 204 H (74-99) mg/dL Calcium 6.8 L (8.4-10.2) mg/dL Total Bilirubin 1.7 H (0.2-1.3) mg/dL AST 23 (17-59) U/L ALT 50 (21-72) U/L Alkaline Phosphatase 205 H (38-126) U/L Total Protein 5.3 L (6.3-8.2) g/dL Albumin 2.7 L (3.5-5.0) g/dL Assessment and Plan Plan: Acute diastolic CHF exacerbation Troponin elevation, likely secondary to CHF exacerbation L heel ulcer w/ possible dry gangrene R foot woudn s/p 4th toe amputation Myeloproiferative disorder w/ Leukocytosis and normocytic anemia Protein calorie malnutrition w/ Hypoalbuminemia Permanent Atrial Fibrillation Elevated Total Bilirubin, possibly due to acute stressors Chronic conditions: CAD, HTN, HLD DVT prophylaxis Offloading, turn q2 . continue local wound care. No current indication for surgical intervention. Monitor closely. continue supportive care. Poor prognosis overall with multiple recent readmissions and PMH. Would consider palliative care c/s for goals of care
--- NOTE | 2019-05-25 15:10 | PN ---
PROGRESS NOTE DATE OF SERVICE: 05/25/2019 REASON FOR FOLLOWUP: 1. Right fourth toe and leg wound. 2. Left heel deep tissue injury and cellulitis. INTERVAL COURSE: The patient is currently afebrile. The patient has been breathing slightly comfortably. Patient has been complaining of some cough, bringing up some whitish sputum. No chest pain. No nausea, vomiting. Denies having pain in the right foot or the leg wound area. PHYSICAL EXAMINATION: Blood pressure is 101/61 with a pulse of 94, temperature 98, he is 95% on 5 L nasal cannula. General description is an elderly male, lying in bed in no distress. RESPIRATORY SYSTEM: Unlabored breathing with decreased breath sounds at the base. HEART S1, S2. Regular rate and rhythm. ABDOMEN: Soft, no tenderness. Right foot wound with some obvious drainage on the dressing. LABS: Hemoglobin 8 with white count 2.9, BUN of 48, creatinine is 1.14. DIAGNOSTIC IMPRESSION/PLAN: 1. Patient with right fourth toe amputated foot wound with previous culture positive for MRSA, currently with evidence of cellulitis. 2. Right medial leg wound, no cellulitis. 3. Left heel deep tissue injury. PLAN: 1. Aquacel silver dressing to the right fourth toe wound with Medihoney to the right medial leg wound and left heel protector. 2. Continue with short course of oral doxycycline. Continue supportive care. MMODL / IJN: [id number] /
[2019-05-25] MEDS: ATORVASTATIN 40 MG TAB PO SCH (19:41)
[2019-05-25] MEDS: HYDROcodone/APAP 10-325MG 1 EACH TAB PO PRN (19:42)
--- NOTE | 2019-05-25 21:18 | P.PN ---
Subjective Progress Note Date: 05/25/19 Principal diagnosis: shortness of breath Patient is a 79-year-old male well known to our service with multiple recent admissions. He has past medical history of diastolic congestive heart failure, 8 atrial fibrillation (rate is likely on Xarelto for anticoagulation but has a history of recurrent bleeding and this is currently discontinued), myeloproliferative disease, coronary artery disease, peripheral arterial disease, dyslipidemia, and hypertension who was sent into the emergency department from his rehab due to worsening shortness of breath. Patient was admitted 618 for acute exacerbation of CHF and was discharged on 624. He was subsequently admitted again on 05/03/19 with right foot cellulitis versus ischemia. 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 At that point in time he has noted to have sepsis from right lower extremity cellulitis for which she received daptomycin was transitioned to oral doxycycline on discharge. Patient was discharged to rehab facility on 05/19 area did patient has been unable to fully participate in rehab secondary to his severe functional debility. He has been essentially bedbound and his developed bedsores most noticeably on his left heel. In the ER he underwent an extensive evaluation. His chest x-ray showed pulmonary edema, EKG showed A. fib rate controlled, white blood cell count elevated at 73.1, B and P 23,000, elevated troponin at 0.076 felt to be secondary to congestive heart failure. He was started on IV diuresis and was admitted for acute exacerbation of diastolic congestive heart failure. He was also noted to have a left heel eschar. Vascular surgery and infectious disease have been consulted. Patient seen and examined at bedside. He states his shortness of breath is s lightly improved since yesterday is still there frequently. He insists he needs oxygen that we discussed that his oxygen levels are normal and the oxygen is not providing any benefit. He denies any nausea or vomiting. He expresses frustration with his current long term. Apparently he was due to have a watchman device placed tomorrow. Due to his debility and his contacted [facility] last week and canceled his appointment. Attempted to discuss with patient his overall chronic debility, and repeated hospitalizations. Initially yesterday at an advanced care planning discussion was had. Patient initially stated that he did not want to undergo CPR or life support in case of cardiac arrest. He had stated he wanted elective intubation. However overnight last night he decided he wanted to be full code. I attempted to again address the issue of CODE STATUS with the patient, but he is insistent that he needs to be full code. Attempted to address patient's repeated hospitalization, and continued debility with lack of improvement, patient is insistent that he will continue to get care and anticipates himself to get better. Objective - Vital Signs Vital signs: Vital Signs Temp 97.5 F L 05/25/19 08:00 Pulse 90 05/25/19 08:51 Resp 24 05/25/19 08:00 BP 101/51 05/25/19 08:00 Pulse Ox 100 05/25/19 08:00 Intake & Output 05/24/19 05/25/19 05/25/19 18:59 06:59 18:59 Intake Total 100 Output Total 150 200 250 Balance -50 -200 -250 Weight 68.039 kg 60 kg Intake: Oral 100 Output: Urine 150 200 250 - Exam General: Ill appearing, gaunt, temporal wasting no distress, appears at stated age Derm: Left heel with dressing in place, warm, dry Head: atraumatic, normocephalic, symmetric Eyes: EOMI, no lid lag, anicteric sclera Mouth: no lip lesion, mucus membranes moist Cardiovascular: S1S2 reg, no murmur, positive posterior tibial pulse bilateral, Lungs: Course breath sounds bilateral, no rhonchi, no rales , no accessory muscle use Abdominal: soft, nontender to palpation, no guarding, no appreciable organomegaly Ext: no gross muscle atrophy, 1+ edema, no contractures Neuro: CN II-XI grossly intact, no focal neuro deficits Psych: Alert, oriented, appropriate affect - Labs CBC & Chem 7: 05/25/19 06:24 05/25/19 06:24 Labs: Abnormal Lab Results - Last 24 Hours (Table) 05/24/19 05/24/19 05/25/19 Range/Units 16:04 21:18 06:24 WBC 92.9 H* (3.8-10.6) k/uL RBC 2.93 L (4.30-5.90) m/uL Hgb 8.0 L (13.0-17.5) gm/dL Hct 27.9 L (39.0-53.0) % MCHC 28.5 L (31.0-37.0) g/dL RDW 29.2 H (11.5-15.5) % Macrocytosis Marked A Sodium (137-145) mmol/L BUN (9-20) mg/dL Glucose (74-99) mg/dL Calcium (8.4-10.2) mg/dL Total Bilirubin (0.2-1.3) mg/dL Alkaline Phosphatase (38-126) U/L Troponin I 0.073 H* 0.067 H* (0.000-0.034) ng/mL Total Protein (6.3-8.2) g/dL Albumin (3.5-5.0) g/dL 05/25/19 Range/Units 06:24 WBC (3.8-10.6) k/uL RBC (4.30-5.90) m/uL Hgb (13.0-17.5) gm/dL Hct (39.0-53.0) % MCHC (31.0-37.0) g/dL RDW (11.5-15.5) % Macrocytosis Sodium 136 L (137-145) mmol/L BUN 48 H (9-20) mg/dL Glucose 204 H (74-99) mg/dL Calcium 6.8 L (8.4-10.2) mg/dL Total Bilirubin 1.7 H (0.2-1.3) mg/dL Alkaline Phosphatase 205 H (38-126) U/L Troponin I (0.000-0.034) ng/mL Total Protein 5.3 L (6.3-8.2) g/dL Albumin 2.7 L (3.5-5.0) g/dL Assessment and Plan Assessment: Acute Cor pulmonale/CHF -IV Lasix 40 mg, strict I and O, daily weights -Fluid restriction -Cardiology recs -Tele -Monitor electrolytes and replace accordingly - not on ACEI of BB due to chronic hypotension requiring midodrine, ( on lopressor and midodrine as outpatient ) Troponin elevation, likely secondary to CHF exacerbation -down trending -Cardiology recs -Cardiac monitoring - ASA L heel ulcer, possible dry gangrene -Vascular suregy recs appreciated: off load, turn q 2 hours, poor overall prognosis R foot cellulitis -Doxycycline to complete course -ID recs appreciated Myeloproiferative disorder with Leukocytosis and normocytic anemia -Follow WBC, if increasing consult Dr. Miller as need 100K -WBC count typically 30-40k -Elevated likely secondary to acute illness -Monitor for now -Iron, B 12 , and folate all in acceptable barby Protein calorie malnutrition, Hypoalbuminemia -Software Implementation Project Manager recs - supplement Permanent Atrial Fibrillation -Not on anticoagulation due to hx of GIB -Aspirin - follow tele Elevated Total Bilirubin, possibly due to acute stressors -Monitor for now Chronic conditions: CAD, HTN, HLD continue home medications DVT prophylaxis -Heparin Discussed with: Patient Anticipated discharge date: 3-[address]: Rehab Facility A total of 35 minutes was spent on the care of this complex patient more than 50% of the time was spent in counseling and care coordination.
[2019-05-26] MEDS: HYDROcodone/APAP 10-325MG 1 EACH TAB PO PRN ×2 (03:04→20:21)
[2019-05-26 06:41] LABS: Anisocytosis Marked; HCT 27.3 % (39.0-53.0); HGB 7.7 gm/dL (13.0-17.5); Hypochromasia Marked; MCH 27.5 pg (25.0-35.0); MCHC 28.4 g/dL (31.0-37.0); MCV 96.7 fL (80.0-100.0); Macrocytosis Marked; Mean Platelet Volume 8.8; Microcytosis Slight; Platelet Count 250 k/uL (150-450); Poikilocytosis Marked; RBC 2.82 m/uL (4.30-5.90)
[2019-05-26] MEDS: PANTOPRAZOLE 40 MG TABLET PO SCH (06:42)
[2019-05-26] MEDS: MIDODRINE 5 MG TAB PO SCH ×3 (06:42→15:43)
[2019-05-26 06:43] LABS: RDW 29.3 % (11.5-15.5); WBC 98.8 k/uL (3.8-10.6)
[2019-05-26 06:57] LABS: Albumin 2.8 g/dL (3.5-5.0); Calcium 6.7 mg/dL (8.4-10.2); Magnesium 1.8 mg/dL (1.6-2.3); Total Bilirubin 1.6 mg/dL (0.2-1.3); Total Protein 5.3 g/dL (6.3-8.2)
[2019-05-26] MEDS: IPRATROPIUM-ALBUTEROL 3 ML NEB INHALATION PRN ×4 (08:25→21:37)
[2019-05-26] MEDS: HEPARIN SODIUM,PORCINE 5,000 UNIT/ML 1 ML VIAL SQ SCH ×3 (08:38→22:52)
[2019-05-26] MEDS: ALLOPURINOL 100 MG TAB PO SCH (08:38)
[2019-05-26] MEDS: CLOPIDOGREL 75 MG TAB PO SCH (08:38)
[2019-05-26] MEDS: DOXYCYCLINE 100 MG CAP PO SCH ×2 (08:38→21:41)
[2019-05-26] MEDS: ASPIRIN 81 MG PO SCH (08:38)
[2019-05-26] MEDS ORDERED: FUROSEMIDE 10 MG/ML 4 ML VIAL IV SCH (09:00)
--- NOTE | 2019-05-26 11:00 | P.PN ---
Subjective Progress Note Date: 05/26/19 Principal diagnosis: bilateral lower extremity wounds patient was seen and examined at the bedside. He states he is feeling slightly better today than he was yesterday. He still is complaining of large amounts of swelling in his lower extremities. He complains of left heel pain but other than that he states his legs are stable. He denies any fevers or chills or chest pain. Objective - Vital Signs Vital signs: Vital Signs Temp 97.7 F 05/26/19 08:00 Pulse 86 05/26/19 08:42 Resp 18 05/26/19 08:00 BP 105/70 05/26/19 08:00 Pulse Ox 98 05/26/19 08:00 Intake & Output 05/25/19 05/26/19 05/26/19 18:59 06:59 18:59 Intake Total 380 Output Total 800 300 Balance -420 -300 Weight 60 kg 55 kg Intake: Oral 380 Output: Urine 800 300 Other: Voiding Method Indwelling Catheter # Bowel Movements 2 1 0 - Exam mild respiratory distress currently on oxygen. 1+ pitting edema bilateral lower extremities. Generalized edema noted. Heart is irregular Abdomen soft, nontender, nondistended Bilateral lower extremities are warm, dry. There is a pressure wound noted on the left lateral aspect of the heel. There is no fluctuance or jun necrosis. Right fifth toe and palpitations site is clean with good granulation tissue. - Labs CBC & Chem 7: 05/26/19 06:12 05/26/19 06:12 Labs: Abnormal Lab Results - Last 24 Hours (Table) 05/26/19 05/26/19 Range/Units 06:12 06:12 WBC 98.8 H* (3.8-10.6) k/uL RBC 2.82 L (4.30-5.90) m/uL Hgb 7.7 L (13.0-17.5) gm/dL Hct 27.3 L (39.0-53.0) % MCHC 28.4 L (31.0-37.0) g/dL RDW 29.3 H (11.5-15.5) % Macrocytosis Marked A Sodium 134 L (137-145) mmol/L Carbon Dioxide 21 L (22-30) mmol/L BUN 59 H (9-20) mg/dL Creatinine 1.47 H (0.66-1.25) mg/dL Glucose 225 H (74-99) mg/dL Calcium 6.7 L (8.4-10.2) mg/dL Total Bilirubin 1.6 H (0.2-1.3) mg/dL Alkaline Phosphatase 172 H (38-126) U/L Total Protein 5.3 L (6.3-8.2) g/dL Albumin 2.8 L (3.5-5.0) g/dL Assessment and Plan Assessment: #1 acute exacerbation of diastolic congestive heart failure #2 left heel ulcer #3 right foot wound status post fourth toe amputation #4 myeloproliferative disorder with leukocytosis and normocytic anemia #5 protein calorie malnutrition with hypoalbuminemia #6 atrial fibrillation #7 coronary artery disease, hypertension and hyperlipidemia Plan: no surgical intervention required at this time. Agree with offloading heels and turning patient every 2. Continue supportive care per medicine.
--- NOTE | 2019-05-26 11:00 | P.PN ---
Subjective Progress Note Date: 05/26/19 This is a pleasant 79-year-old patient who follows Dr. GERI Pelayo in the office has history of CAD, prior bypass, prior PCI, PAD with previous surgical and peripheral intervention by Dr. Mcfadden and Dr. 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 Patient was recently in the hospital in April of this year, was discharged home and he came back with gangrene of the toe on his right foot, underwent surgery, was discharged back to extended care facility, and then came back again to the hospital with symptoms of shortness of breath, edema, and weight gain. Patient has known moderate mitral regurgitation, severe pulmonary hypertension, persistent atrial fibrillation, not a candidate for anticoagulation because of GI bleeding. He was supposed to go to [facility] and undergo placement of a watchman device, he is unfortunately not been able to do this because of several recurrent hospitalizations for heart failure. At the time of my examination this morning, patient continues to feel quite short of breath, in general he states he just does not feel well. Blood pressure 106/70 with a heart rate in the 80s, 98% on 5 L of oxygen. White blood cell count 98.8, hemoglobin 7.7, platelet count 250. Sodium 134, potassium 5.0, BUN 59, creatinine 1.4. Mag level I.8. Objective - Vital Signs Vital signs: Vital Signs Temp 97.7 F 05/26/19 08:00 Pulse 86 05/26/19 08:42 Resp 18 05/26/19 08:00 BP 105/70 05/26/19 08:00 Pulse Ox 98 05/26/19 08:00 Intake & Output 05/25/19 05/26/19 05/26/19 18:59 06:59 18:59 Intake Total 380 Output Total 800 300 Balance -420 -300 Weight 60 kg 55 kg Intake: Oral 380 Output: Urine 800 300 Other: Voiding Method Indwelling Catheter # Bowel Movements 2 1 0 - Exam PHYSICAL EXAMINATION: GENERAL: 79-year-old gentleman in no acute distress at the time of my examination HEENT: Head is atraumatic, normocephalic. Pupils equal, round. Sclera anicteric. Conjunctiva are clear. Mucous membranes of the mouth are moist. Neck is supple. There is elevated jugular venous pressure. No carotid bruit is heard. HEART EXAMINATION: Heart S1-S2 irregularly irregular a grade 3/6 systolic murmur is heard at the apex CHEST EXAMINATION: Lungs reveal scattered THROUGHOUT with diminished air entry to the bases bilaterally ABDOMEN: Soft, nontender. Bowel sounds are heard. No organomegaly noted. EXTREMITIES: Diminished pulses bilaterally, 2+ bilateral pitting edema, amputation of the right toe. NEUROLOGIC patient is awake, alert and oriented 3 . . - Labs CBC & Chem 7: 05/26/19 06:12 05/26/19 06:12 Labs: Abnormal Lab Results - Last 24 Hours (Table) 05/26/19 05/26/19 Range/Units 06:12 06:12 WBC 98.8 H* (3.8-10.6) k/uL RBC 2.82 L (4.30-5.90) m/uL Hgb 7.7 L (13.0-17.5) gm/dL Hct 27.3 L (39.0-53.0) % MCHC 28.4 L (31.0-37.0) g/dL RDW 29.3 H (11.5-15.5) % Macrocytosis Marked A Sodium 134 L (137-145) mmol/L Carbon Dioxide 21 L (22-30) mmol/L BUN 59 H (9-20) mg/dL Creatinine 1.47 H (0.66-1.25) mg/dL Glucose 225 H (74-99) mg/dL Calcium 6.7 L (8.4-10.2) mg/dL Total Bilirubin 1.6 H (0.2-1.3) mg/dL Alkaline Phosphatase 172 H (38-126) U/L Total Protein 5.3 L (6.3-8.2) g/dL Albumin 2.8 L (3.5-5.0) g/dL Assessment and Plan Plan: Assessment and plan #1 acute diastolic congestive heart failure, on chronic #2 chronic persistent atrial fibrillation, patient not a candidate for ant icoagulation secondary to GI bleeding, he was scheduled as an outpatient to undergo implantation of a watchman device #3 severe pulmonary hypertension #4 known history of coronary artery disease with prior bypass surgery and prior angioplasty #5 PAD #6 hypertension Plan We will continue with current dose of IV Lasix monitoring renal function closely, repeat a chest x-ray in the morning. DNP note has been reviewed, I agree with a documented findings and plan of care. Patient was seen and examined.
--- NOTE | 2019-05-26 12:17 | P.NPCON ---
History of Present Illness - Reason for Consult acute renal failure - History of Present Illness Reason for consultation: Acute kidney injury History of present illness: Patient is a 79-year-old male seen in renal consultation for acute kidney injury. Patient was admitted to the hospital earlier this month and a developed acute kidney injury due to vancomycin toxicity. He will also volume overloaded and received IV diuresis. Renal function subsequently improved GFR was back to baseline upon discharge to rehab. Patient became dyspneic and rehab and was sent to the hospital for hypoxic respiratory failure. He is noted to be quite fluid overloaded. He is currently maintained on Lasix 40 mg IV daily. He has a Leggett catheter for urinary retention. No vomiting or diarrhea. Oral intake is poor. Remains quite edematous. He is currently on antibiotics for right fourth toe and leg wound. Infectious disease is following. He also has history of myeloproliferative disorder. Patient's white count today is 98,000. He is not on any nonsteroidals. Vital signs are stable. General: The patient appeared well nourished and normally developed. HEENT: Head exam is unremarkable. Neck is without jugular venous distension. LUNGS: Lungs are clear to auscultation and percussion. Breath sounds decreased. HEART: Rate and Rhythm are regular. First and second heart sounds normal. No murmurs, rubs or gallops. ABDOMEN: Abdominal exam reveals normal bowel sounds. Non-tender and non- distended. No evidence of peritonitis. EXTREMITITES: 2+ edema. No drainage noted. Past Medical History Past Medical History: Atrial Flutter, Blood Disorder, Coronary Artery Disease (CAD), Heart Failure, GERD/Reflux, GI Bleed, Hyperlipidemia, Hypertension, Myocardial Infarction (NV), Prostate Disorder, Vascular Disorder Additional Past Medical History / Comment(s): myeloproliferative disorder(leukocytosis and thrombocytosis), esophagitis, severe PAD, severe pulmonary hypertension , right-sided heart failure with severe pulmonary hypertension, BPH, Exercise intolerance Last Myocardial Infarction Date:: 2017 History of Any Multi-Drug Resistant Organisms: Acinetobacter (MDRO), MRSA Date of last positivie culture/infection: 05/08/19-MRSA; 11/18/17 Acinetobacter MDRO Source:: Foot-MRSA; Sputum-Acinetobacter Past Surgical History: Cholecystectomy, Coronary Bypass/CABG, Heart Catheterization, Hernia Repair Additional Past Surgical History / Comment(s): Cardiac catheterization on 10/04/2014, right femoral artery/common femoral artery endarterectomy. 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 tom inguinal hernia repair, EGD, colonoscopy. Cath with PCI to RCA 02/04/19. Cabg x3 2007. Past Anesthesia/Blood Transfusion Reactions: No Reported Reaction Smoking Status: Former smoker - Past Family History Brother(s) Family Medical History: Cancer Additional Family Medical History / Comment(s): 2 with lung and 1 with prostate Mother Family Medical History: Myocardial Infarction ([place]) Father History Unknown: Yes Additional Family Medical History / Comment(s): AT AGE 83 FROM "HARDENING OF THE ARTERIES" Medications and Allergies Home Medications Medication Instructions Recorded Confirmed Type Atorvastatin [Lipitor] 40 mg PO HS 09/27/14 05/24/19 History Aspirin 81 mg PO DAILY #30 chew 04/07/18 05/24/19 Rx Clopidogrel [Plavix] 75 mg PO DAILY #30 tab 04/07/18 05/24/19 Rx Pantoprazole Sodium [Protonix] 40 mg PO DAILY 07/14/18 05/24/19 History rOPINIRole HCL [Requip] 1 mg PO HS 02/12/19 05/24/19 History Allopurinol [Zyloprim] 100 mg PO DAILY 03/31/19 05/24/19 History Epoetin [place] [Procrit] 40,000 units IV ONCE 04/03/19 05/24/19 History Furosemide [Lasix] 40 mg PO BID@0900,1600 #60 tab 05/15/19 05/24/19 Rx Doxycycline [Vibramycin] 100 mg PO BID #20 cap 05/18/19 05/24/19 Rx HYDROcodone/APAP 10-325MG [[place] 1 tab PO Q6HR PRN 3 Days #12 tab 05/19/19 05/24/19 Rx 10-325] Acetaminophen Tab [Tylenol Tab] 650 mg PO Q6H PRN 05/24/19 05/24/19 History Albuterol Nebulized [Ventolin 2.5 mg INHALATION RT-DAILY 05/24/19 05/24/19 History Nebulized] Ergocalciferol [Vitamin D2 50,000 unit PO WE 05/24/19 05/24/19 History (DRISDOL)] Ipratropium-Albuterol Nebulize 3 ml INHALATION RT-Q6H 05/24/19 05/24/19 History [Duoneb 0.5 mg-3 mg/3 ml Soln] Liquid Protein 30 ml PO DAILY 05/24/19 05/24/19 History Magnesium Hydroxide [Milk of 2,400 mg PO DAILY PRN 05/24/19 05/24/19 History Magnesia] Metoprolol Tartrate [Lopressor] 25 mg PO TID@0600,1200,2000 05/24/19 05/24/19 History Midodrine [ProAmatine] 5 mg PO TID@0630,1130,1630 05/24/19 05/24/19 History Allergies Allergy/AdvReac Type Severity Reaction Status Date / Time No Known Allergies Allergy Verified 05/24/19 08:11 Physical Exam Vitals: Vital Signs Temp Pulse Pulse Resp BP Pulse Ox 05/26/19 11:55 97.6 F 88 100 18 105/69 95 05/26/19 08:42 86 05/26/19 08:27 86 05/26/19 08:00 97.7 F 100 20 105/70 98 05/26/19 03:28 97 19 05/26/19 03:26 98.5 F 97 19 111/63 100 05/25/19 23:47 99 19 05/25/19 23:45 97.6 F 99 19 102/62 97 05/25/19 20:00 97.5 F L 108 H 18 105/54 98 05/25/19 16:40 90 05/25/19 16:22 89 05/25/19 16:00 97.4 F L 99 22 104/65 98 05/25/19 12:31 90 05/25/19 12:22 94 Intake and Output 05/25/19 05/26/19 05/26/19 22:59 06:59 14:59 Intake Total 100 Output Total 300 300 Balance -200 -300 Intake: Oral 100 Output: Urine 300 300 Other: Voiding Method Indwelling Catheter # Bowel Movements 2 1 0 Weight 55 kg Results - Lab Results Most recent lab results Calcium 6.7 mg/dL (8.4-10.2) L 05/26/19 06:12 Magnesium 1.8 mg/dL (1.6-2.3) 05/26/19 06:12 05/26/19 06:12 05/26/19 06:12 Assessment and Plan Plan: Assessment: 1. Acute kidney injury mostly prerenal secondary to cardiorenal syndrome. Creatinine 1.47 today. 2. Urinary retention status post Leggett catheter placement. 3. Volume overload. 4. Acute hypoxic respiratory failure. 5. Right foot wound maintained on antibiotics. Infectious disease following. 6. Diastolic CHF with severe tricuspid regurgitation and pulmonary hyp ertension. 7. Anemia. Rule out iron deficiency. Plan: I will increase Lasix to 60 mg IV twice daily. Low-salt diet and fluid restriction. Continue to monitor renal function and urine output. Avoid nephrotoxins. Repeat electrolytes in the morning. Thank you for the consultation. I will continue to follow patient with you during his hospital stay.
[2019-05-26 12:37] LABS: Glucose,Whole Blood 255 mg/dL (75-99)
[2019-05-26] MEDS: INSULIN ASPART (NovoLOG) 100 UNIT/ML VIAL SQ SCH ×2 (13:13→17:04)
[2019-05-26] MEDS: METOPROLOL TARTRATE 25 MG TAB PO SCH ×2 (13:13→20:21)
--- NOTE | 2019-05-26 13:49 | CDI ---
Documentation Clarification Form Date: 05/26/2019 1:37:48 PM From: Annette Orourke CCS, CCDS Admit Date: 05/24/2019 10:21:00 AM Patient Name: Jacques Burk Visit Number: [id number] Discharge Date: ATTENTION: The Clinical Documentation Specialists (CDI) and [facility] Coding Staff appreciate your assistance in clarifying documentation. Please respond to the clarification below the line at the bottom and electronically sign. The CDI & [facility] Coding staff will review the response and follow-up if needed. Please note: Queries are made part of the Legal Health Record. If you have any questions, please contact the author of this message via ITS. Dr. Ernie Smalls: Malnutrition has been documented in History & Physical, the Vascular consult & subsequent progress notes as "protein calorie malnutrition", without further specificity. History/Risk Factors: Diastolic CHF, Myeloproliferative disorder, Permanent Atrial Fibrillation, CAD, Hypertension & Hyperlipidemia. Clinical Indicators: Presented to ED with difficulty breathing, recently discharged after treatment for cellulitis. Admitted with acute exacerbation of diastolic CHF & cellulitis of the right lower extremity & ulcer. Labs: WBC 73.1^^, Hb 7.9*, Neut 68.70^, PT 15.0^, INR 1.5^, BUN 40^, Gluc 137^, Josue 6.8*, Total bilirubin 2.1^, elev trops, Total protein 5.3*, Albumin 2.7*. Current BMI: 19.0 Patient has a stage III ulcer on right calf, a small pressure injury on right 4th toe, a pressure injury on th eleft heel & left ankle. Per the nutritional assessment, patient is tolerating 100% of his meals. Treatment: INH Albuterol, Aspirin, IV Lasix, IV Solumedrol In your professional opinion, can you please clarify if these findings signify one of the following conditions? Mild Protein-Calorie Malnutrition Moderate Protein-Calorie Malnutrition Severe Protein-Calorie Malnutrition Other condition, please specify Unable to determine (Last Revision: May 2019) Moderate Protein-Calorie Malnutrition MTDD
--- NOTE | 2019-05-26 14:09 | P.PN ---
Subjective Progress Note Date: 05/26/19 Principal diagnosis: shortness of breath Patient is a 79-year-old male well known to our service with multiple recent admissions. He has past medical history of diastolic congestive heart failure, 8 atrial fibrillation (rate is likely on Xarelto for anticoagulation but has a history of recurrent bleeding and this is currently discontinued), myeloproliferative disease, coronary artery disease, peripheral arterial disease, dyslipidemia, and hypertension who was sent into the emergency department from his rehab due to worsening shortness of breath. Patient was admitted 618 for acute exacerbation of CHF and was discharged on 624. He was subsequently admitted again on 05/03/19 with right foot cellulitis versus ischemia. 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 At that point in time he has noted to have sepsis from right lower extremity cellulitis for which she received daptomycin was transitioned to oral doxycycline on discharge. Patient was discharged to rehab facility on 05/19 area did patient has been unable to fully participate in rehab secondary to his severe functional debility. He has been essentially bedbound and his developed bedsores most noticeably on his left heel. In the ER he underwent an extensive evaluation. His chest x-ray showed pulmonary edema, EKG showed A. fib rate controlled, white blood cell count elevated at 73.1, B and P 23,000, elevated troponin at 0.076 felt to be secondary to congestive heart failure. He was started on IV diuresis and was admitted for acute exacerbation of diastolic congestive heart failure. He was also noted to have a left heel eschar. Vascular surgery and infectious disease have been consulted no need for surgical intervention and off loading recommended along with local wound care. Seen by cardio who agrees with need for continued diuresis. Cr increased on 05/26 and nep hro consulted who feels likely related to cardio renal syndrome. Patient seen and examined at bedside. No chest pain, + SOB unchanged, + fatigue and exhaustion, frustrated with being sick, , nausea, or vomiting. No diarrhea. Again attempted to discuss with patient is poor overall functional status, lack of overall improvement in the last several months, and continued need for rehospitalization. Patient very reluctant to discuss this. He is insistent that the watchman device and putting her back and rhythm will fix everything. Objective - Vital Signs Vital signs: Vital Signs Temp 97.6 F 07/23/19 11:55 Pulse 100 05/26/19 11:55 Resp 20 05/26/19 11:55 BP 105/69 05/26/19 11:55 Pulse Ox 95 05/26/19 11:55 Intake & Output 05/25/19 05/26/19 05/26/19 18:59 06:59 18:59 Intake Total 380 Output Total 800 300 Balance -420 -300 Weight 60 kg 55 kg Intake: Oral 380 Output: Urine 800 300 Other: Voiding Method Indwelling Catheter # Bowel Movements 2 1 0 - Exam General: Ill appearing, gaunt, temporal wasting no distress, appears at stated age Derm: Left heel with dressing in place, warm, dry Head: atraumatic, normocephalic, symmetric Eyes: EOMI, no lid lag, anicteric sclera Mouth: no lip lesion, mucus membranes moist Cardiovascular: S1S2 irreg and tachy, no murmur, positive posterior tibial pulse bilateral, Lungs: Course breath sounds bilateral, no rhonchi, no rales , no accessory muscle use Abdominal: soft, nontender to palpation, no guarding, no appreciable organomegaly Ext: no gross muscle atrophy, 3+ edema, no contractures Neuro: CN II-XI grossly intact, no focal neuro deficits Psych: Alert, oriented, appropriate affect - Labs CBC & Chem 7: 05/26/19 06:12 05/26/19 06:12 Labs: Abnormal Lab Results - Last 24 Hours (Table) 05/26/19 05/26/19 05/26/19 Range/Units 06:12 06:12 12:35 WBC 98.8 H* (3.8-10.6) k/uL RBC 2.82 L (4.30-5.90) m/uL Hgb 7.7 L (13.0-17.5) gm/dL Hct 27.3 L (39.0-53.0) % MCHC 28.4 L (31.0-37.0) g/dL RDW 29.3 H (11.5-15.5) % Macrocytosis Marked A Sodium 134 L (137-145) mmol/L Carbon Dioxide 21 L (22-30) mmol/L BUN 59 H (9-20) mg/dL Creatinine 1.47 H (0.66-1.25) mg/dL Glucose 225 H (74-99) mg/dL POC Glucose (mg/dL) 255 H (75-99) mg/dL Calcium 6.7 L (8.4-10.2) mg/dL Total Bilirubin 1.6 H (0.2-1.3) mg/dL Alkaline Phosphatase 172 H (38-126) U/L Total Protein 5.3 L (6.3-8.2) g/dL Albumin 2.8 L (3.5-5.0) g/dL Assessment and Plan Assessment: Acute Cor pulmonale/CHF -IV increased to 60 mg twice daily, strict I and O, daily weights -Fluid restriction -Cardiology recs -Tele -Monitor electrolytes and replace accordingly - not on ACEI due to chronic hypotension requiring midodrine Atrial fibrillation, permanent with rapid ventricular response -Resume home metoprolol, follow blood pressures closely -Not on anticoagulation due to hx of GIB -Aspirin -follow tele HIREN - nephro recs - strict I and O - avoid additional nephrotoxic agents - follow BMP Troponin elevation, likely secondary to CHF exacerbation -down trending -Cardiology recs -Cardiac monitoring - ASA Hyperglycemia -No history of diabetes -Sliding-scale insulin -Check hemoglobin A1c L heel ulcer, possible dry gangrene -Vascular suregy recs appreciated: off load, turn q 2 hours, poor overall prognosis R foot cellulitis -Doxycycline to complete course -ID recs appreciated Myeloproiferative disorder with Leukocytosis and normocytic anemia -Follow WBC, if increasing consult Dr. Miller as near 100K -WBC count typically 30-40k -Elevated likely secondary to acute illness -Monitor for now -Iron, B 12 , and folate all in acceptable barby Moderate Protein calorie malnutrition, Hypoalbuminemia -Child Care Counselor recs - supplement Elevated Total Bilirubin, possibly due to acute stressors -Monitor for now Chronic conditions: CAD, HTN, HLD continue home medications DVT prophylaxis -Heparin Discussed with: Patient Anticipated discharge date: 3-[address]: Rehab Facility A total of 35 minutes was spent on the care of this complex patient more than 50% of the time was spent in counseling and care coordination.
[2019-05-26 16:05] LABS: Iron Saturation 16.89 (15.00-50.00)
[2019-05-26 16:42] LABS: Glucose,Whole Blood 227 mg/dL (75-99)
[2019-05-26 17:59] LABS: Hemoglobin A1C 6.6 % (4.0-6.0)
[2019-05-26 20:21] LABS: Glucose,Whole Blood 152 mg/dL (75-99)
[2019-05-26] MEDS: ATORVASTATIN 40 MG TAB PO SCH (20:21)
--- NOTE | 2019-05-26 20:26 | PN ---
PROGRESS NOTE DATE OF SERVICE: 05/26/2019. REASON FOR FOLLOWUP: 1. Right fourth toe amputated site and right mid leg wound. 2. Deep tissue injury to the left heel. INTERVAL HISTORY: The patient is currently afebrile. The patient has been breathing comfortably. Denies having any chest pain. Occasional cough. No nausea, vomiting. Denies any pain to the right foot or the right lower leg wound area. PHYSICAL EXAMINATION: Blood pressure 102/50 with a pulse of 100. Temperature 97.5. He is 99% on 5 L nasal cannula. General description is an elderly male lying in bed in no distress. Respiratory system: Unlabored breathing, clear to auscultation anteriorly. Heart S1, S2. Regular rate and rhythm. Abdomen soft, no tenderness. Right leg and foot wound is currently dressed up. RN who changed the dressing did mention overall wound looking good. LABS: Hemoglobin is 7.7 with white count 8.8 with a BUN of 57, creatinine 1.47. DIAGNOSTIC IMPRESSION AND PLAN: 1. Patient with a right 4th toe amputated site wound and right mid leg wound with concern for possible cellulitis. Local wound care to continue as ordered with Aquacel Silver dressing to the foot and Medihoney to the right leg wound area. 2. Deep tissue injury to the left heel, heel protectors. No need for any local treatment for the same. MMODL / IJN: [id number] /
[2019-05-26] MEDS: FUROSEMIDE 10 MG/ML 10 ML VIAL IV SCH (21:39)
[2019-05-27] MEDS: HYDROcodone/APAP 10-325MG 1 EACH TAB PO PRN ×2 (02:40→09:12)
[2019-05-27 03:35] LABS: Appearance,Urine Turbid (Clear); Bacteria,Urine Occasional /hpf; Bilirubin,Urine Negative (Negative); Blood,Urine Large (Negative); Budding Yeast,Urine Many /hpf; Color,Urine Light Red; Glucose,Urine (UA) Negative (Negative); Hyaline Casts,Urine 107 /lpf (0-2); Ketones,Urine Negative (Negative); Leukocyte Esterase,Urine Large (Negative); Mucus,Urine Rare /hpf; Nitrite,Urine Negative (Negative); Protein,Urine 1+ (Negative); RBC,Urine >182 /hpf (0-5); Specific Gravity,Urine 1.013 (1.001-1.035); Sperm,Urine Rare /hpf; Squamous Epithelial Cell,Urine 6 /hpf (0-4); Urobilinogen,Urine <2.0 mg/dL (<2.0); WBC,Urine >182 /hpf (0-5)
[2019-05-27 06:21] LABS: Glucose,Whole Blood 122 mg/dL (75-99)
[2019-05-27] MEDS: INSULIN ASPART (NovoLOG) 100 UNIT/ML VIAL SQ SCH ×3 (06:21→17:31)
[2019-05-27] MEDS: PANTOPRAZOLE 40 MG TABLET PO SCH (06:23)
[2019-05-27] MEDS: MIDODRINE 5 MG TAB PO SCH ×3 (06:23→16:32)
[2019-05-27 07:41] LABS: Anisocytosis Marked; HCT 28.3 % (39.0-53.0); HGB 7.8 gm/dL (13.0-17.5); Hypochromasia Marked; MCH 26.6 pg (25.0-35.0); MCHC 27.5 g/dL (31.0-37.0); MCV 96.8 fL (80.0-100.0); Macrocytosis Marked; Mean Platelet Volume 8.9; Microcytosis Slight; Platelet Count 228 k/uL (150-450); Poikilocytosis Marked; RBC 2.93 m/uL (4.30-5.90)
[2019-05-27 07:55] LABS: RDW 29.1 % (11.5-15.5); WBC 80.1 k/uL (3.8-10.6)
[2019-05-27] MEDS: IPRATROPIUM-ALBUTEROL 3 ML NEB INHALATION SCH ×4 (07:59→19:54)
--- NOTE | 2019-05-27 08:01 | XR ---
EXAMINATION TYPE: XR chest 1V portable DATE OF EXAM: 05/27/2019 COMPARISON: Prior chest x-ray 05/24/2019 HISTORY: Congestive heart failure TECHNIQUE: Single frontal view of the chest is obtained. FINDINGS: Patient is post median sternotomy and the heart remains enlarged. Interstitium is increase d as on prior exam. There is blunting of the costophrenic angles. No pneumothorax. Aorta is dense. IMPRESSION: Findings compatible with congestive heart failure, there are likely small associated eff usions. No significant interval change.
[2019-05-27 08:07] LABS: Albumin 2.9 g/dL (3.5-5.0); Calcium 6.7 mg/dL (8.4-10.2); Magnesium 1.9 mg/dL (1.6-2.3); Potassium 4.8 mmol/L (3.5-5.1); Total Bilirubin 1.8 mg/dL (0.2-1.3); Total Protein 5.5 g/dL (6.3-8.2)
[2019-05-27] MEDS: ALLOPURINOL 100 MG TAB PO SCH (09:11)
[2019-05-27] MEDS: ASPIRIN 81 MG PO SCH (09:11)
[2019-05-27] MEDS: CLOPIDOGREL 75 MG TAB PO SCH (09:11)
[2019-05-27] MEDS: HEPARIN SODIUM,PORCINE 5,000 UNIT/ML 1 ML VIAL SQ SCH ×3 (09:11→22:35)
[2019-05-27] MEDS: METOPROLOL TARTRATE 25 MG TAB PO SCH ×3 (09:12→21:46)
[2019-05-27] MEDS: FUROSEMIDE 10 MG/ML 10 ML VIAL IV SCH (09:12)
[2019-05-27] MEDS: DOXYCYCLINE 100 MG CAP PO SCH ×2 (09:12→21:45)
--- NOTE | 2019-05-27 11:04 | P.PN ---
Subjective Patient is seen in follow-up for acute kidney injury. Creatinine is up to 1.97 today. He is maintained on Lasix 60 mg IV twice daily. Urine output was about 300 mL overnight and he has made another 300 mL since 6 AM. He still quite edematous. He remains dyspneic. No vomiting or diarrhea. Vital signs are stable. General: The patient appeared well nourished and normally developed. HEENT: Head exam is unremarkable. Neck is without jugular venous distension. LUNGS: Breath sounds decreased. HEART: Rate and Rhythm are regular. First and second heart sounds normal. No murmurs, rubs or gallops. ABDOMEN: Abdominal exam reveals normal bowel sounds. Non-tender and non- distended. No evidence of peritonitis. EXTREMITITES: 2+ edema. Objective - Vital Signs Vital signs: Vital Signs Temp 97.6 F 05/27/19 08:00 Pulse 102 H 05/27/19 08:11 Resp 18 05/27/19 08:00 BP 94/46 05/27/19 08:00 Pulse Ox 97 05/27/19 08:00 Intake & Output 05/26/19 05/27/19 05/27/19 18:59 06:59 18:59 Intake Total 760 Output Total 250 200 Balance 510 -200 Weight 65 kg Intake: Oral 760 Output: Urine 250 200 Urine/Stool Mix 0 Other: Voiding Method Indwelling Catheter Indwelling Catheter # Bowel Movements 0 - Labs CBC & Chem 7: 05/27/19 06:30 05/27/19 06:30 Labs: Abnormal Lab Results - Last 24 Hours (Table) 05/26/19 05/26/19 05/26/19 Range/Units 06:12 06:12 12:35 WBC (3.8-10.6) k/uL RBC (4.30-5.90) m/uL Hgb (13.0-17.5) gm/dL Hct (39.0-53.0) % MCHC (31.0-37.0) g/dL RDW (11.5-15.5) % Macrocytosis BUN (9-20) mg/dL Creatinine (0.66-1.25) mg/dL Glucose (74-99) mg/dL POC Glucose (mg/dL) 255 H (75-99) mg/dL Hemoglobin A1c 6.6 H (4.0-6.0) % Calcium (8.4-10.2) mg/dL Iron 50 L (65-175) ug/dL Ferritin 741.5 H (22.0-322.0) ng/mL Total Bilirubin (0.2-1.3) mg/dL Alkaline Phosphatase (38-126) U/L Total Protein (6.3-8.2) g/dL Albumin (3.5-5.0) g/dL Urine Protein (Negative) Urine Blood (Negative) Ur Leukocyte Esterase (Negative) Urine RBC (0-5) /hpf Urine WBC (0-5) /hpf Urine WBC Clumps (None) /hpf Ur Squamous Epith Cells (0-4) /hpf Urine Bacteria (None) /hpf Hyaline Casts (0-2) /lpf Urine Mucus (None) /hpf Urine Yeast (Budding) (None) /hpf 05/26/19 05/26/19 05/27/19 Range/Units 16:36 20:20 02:46 WBC (3.8-10.6) k/uL RBC (4.30-5.90) m/uL Hgb (13.0-17.5) gm/dL Hct (39.0-53.0) % MCHC (31.0-37.0) g/dL RDW (11.5-15.5) % Macrocytosis BUN (9-20) mg/dL Creatinine (0.66-1.25) mg/dL Glucose (74-99) mg/dL POC Glucose (mg/dL) 227 H 152 H (75-99) mg/dL Hemoglobin A1c (4.0-6.0) % Calcium (8.4-10.2) mg/dL Iron (65-175) ug/dL Ferritin (22.0-322.0) ng/mL Total Bilirubin (0.2-1.3) mg/dL Alkaline Phosphatase (38-126) U/L Total Protein (6.3-8.2) g/dL Albumin (3.5-5.0) g/dL Urine Protein 1+ H (Negative) Urine Blood Large H (Negative) Ur Leukocyte Esterase Large H (Negative) Urine RBC >182 H (0-5) /hpf Urine WBC >182 H (0-5) /hpf Urine WBC Clumps Many H (None) /hpf Ur Squamous Epith Cells 6 H (0-4) /hpf Urine Bacteria Occasional H (None) /hpf Hyaline Casts 107 H (0-2) /lpf Urine Mucus Rare H (None) /hpf Urine Yeast (Budding) Many H (None) /hpf 05/27/19 05/27/19 05/27/19 Range/Units 06:20 06:30 06:30 WBC 80.1 H* (3.8-10.6) k/uL RBC 2.93 L (4.30-5.90) m/uL Hgb 7.8 L (13.0-17.5) gm/dL Hct 28.3 L (39.0-53.0) % MCHC 27.5 L (31.0-37.0) g/dL RDW 29.1 H (11.5-15.5) % Macrocytosis Marked A BUN 67 H (9-20) mg/dL Creatinine 1.97 H (0.66-1.25) mg/dL Glucose 103 H (74-99) mg/dL POC Glucose (mg/dL) 122 H (75-99) mg/dL Hemoglobin A1c (4.0-6.0) % Calcium 6.7 L (8.4-10.2) mg/dL Iron (65-175) ug/dL Ferritin (22.0-322.0) ng/mL Total Bilirubin 1.8 H (0.2-1.3) mg/dL Alkaline Phosphatase 243 H (38-126) U/L Total Protein 5.5 L (6.3-8.2) g/dL Albumin 2.9 L (3.5-5.0) g/dL Urine Protein (Negative) Urine Blood (Negative) Ur Leukocyte Esterase (Negative) Urine RBC (0-5) /hpf Urine WBC (0-5) /hpf Urine WBC Clumps (None) /hpf Ur Squamous Epith Cells (0-4) /hpf Urine Bacteria (None) /hpf Hyaline Casts (0-2) /lpf Urine Mucus (None) /hpf Urine Yeast (Budding) (None) /hpf Assessment and Plan Plan: Assessment: 1. Acute kidney injury mostly prerenal secondary to cardiorenal syndrome. Creatinine 1.97 today. Baseline creatinine near 1. 2. Urinary retention status post Leggett catheter placement. 3. Volume overload. 4. Acute hypoxic respiratory failure. 5. Right foot wound maintained on antibiotics. Infectious disease following. 6. Diastolic CHF with severe tricuspid regurgitation and pulmonary hypertension. 7. Anemia. Iron deficiency noted. Plan: Discontinue IV Lasix and start Lasix drip at 10 mL an hour. IV iron 3 doses. First dose today. Low-salt diet and fluid restriction. Continue to monitor renal function and urine output. Avoid nephrotoxins. Repeat electrolytes in the morning. Strict is and os.
[2019-05-27] MEDS ORDERED: FUROSEMIDE 100 MG in SODIUM CHLORIDE 0.9% 90 ML IV SCH (11:30)
[2019-05-27 11:42] LABS: Glucose,Whole Blood 201 mg/dL (75-99)
--- NOTE | 2019-05-27 11:45 | P.PN ---
Subjective Progress Note Date: 05/27/19 (delayed charting seen at 10 am) Principal diagnosis: shortness of breath Patient is a 79-year-old male well known to our service with multiple recent admissions. He has past medical history of diastolic congestive heart failure, 8 atrial fibrillation (rate is likely on Xarelto for anticoagulation but has a history of recurrent bleeding and this is currently discontinued), myeloproliferative disease, coronary artery disease, peripheral arterial disease, dyslipidemia, and hypertension who was sent into the emergency department from his rehab due to worsening shortness of breath. Patient was admitted 618 for acute exacerbation of CHF and was discharged on 624. He was subsequently admitted again on 05/03/19 with right foot cellulitis versus ischemia. 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 At that point in time he has noted to have sepsis from right lower extremity cellulitis for which she received daptomycin was transitioned to oral doxycycline on discharge. Patient was discharged to rehab facility on 05/19 area did patient has been unable to fully participate in rehab secondary to his severe functional debility. He has been essentially bedbound and his developed bedsores most noticeably on his left heel. In the ER he underwent an extensive evaluation. His chest x-ray showed pulmonary edema, EKG showed A. fib rate controlled, white blood cell count elevated at 73.1, B and P 23,000, elevated troponin at 0.076 felt to be secondary to congestive heart failure. He was started on IV diuresis and was admitted for acute exacerbation of diastolic congestive heart failure. He was also noted to have a left heel eschar. Vascul ar surgery and infectious disease have been consulted no need for surgical intervention and off loading recommended along with local wound care. Seen by cardio who agrees with need for continued diuresis. Cr increased on 05/26 and nephro consulted who feels likely related to cardio renal syndrome and lasix increased. Check x-ray on 05/27 revealed R>L pleural effusion. Patient seen and examined at bedside. Feeling very tired today, fatigue, shortness of breath still significant but somewhat better than yesterday, no nausea or vomiting, decreased appetite. Objective - Vital Signs Vital signs: Vital Signs Temp 97.6 F 05/27/19 08:00 Pulse 102 H 05/27/19 08:11 Resp 18 05/27/19 08:00 BP 94/46 05/27/19 08:00 Pulse Ox 97 05/27/19 08:00 Intake & Output 05/26/19 05/27/19 05/27/19 18:59 06:59 18:59 Intake Total 760 Output Total 250 200 Balance 510 -200 Weight 65 kg Intake: Oral 760 Output: Urine 250 200 Urine/Stool Mix 0 Other: Voiding Method Indwelling Catheter Indwelling Catheter # Bowel Movements 0 - Exam General: Ill appearing, gaunt, temporal wasting no distress, appears at stated age Derm: Left heel with dressing in place, warm, dry Head: atraumatic, normocephalic, symmetric Eyes: EOMI, no lid lag, anicteric sclera Mouth: no lip lesion, mucus membranes moist Cardiovascular: S1S2 irreg and tachy, no murmur, positive posterior tibial pulse bilateral, Lungs: Rhonchi right base , no accessory muscle use Abdominal: soft, nontender to palpation, no guarding, no appreciable organomegaly Ext: no gross muscle atrophy, 3+ edema, no contractures Neuro: CN II-XI grossly intact, no focal neuro deficits Psych: Alert, oriented, appropriate affect - Labs CBC & Chem 7: 05/27/19 06:30 05/27/19 06:30 Labs: Abnormal Lab Results - Last 24 Hours (Table) 05/26/19 05/26/19 05/26/19 Range/Units 06:12 06:12 12:35 WBC (3.8-10.6) k/uL RBC (4.30-5.90) m/uL Hgb (13.0-17.5) gm/dL Hct (39.0-53.0) % MCHC (31.0-37.0) g/dL RDW (11.5-15.5) % Macrocytosis BUN (9-20) mg/dL Creatinine (0.66-1.25) mg/dL Glucose (74-99) mg/dL POC Glucose (mg/dL) 255 H (75-99) mg/dL Hemoglobin A1c 6.6 H (4.0-6.0) % Calcium (8.4-10.2) mg/dL Iron 50 L (65-175) ug/dL Ferritin 741.5 H (22.0-322.0) ng/mL Total Bilirubin (0.2-1.3) mg/dL Alkaline Phosphatase (38-126) U/L Total Protein (6.3-8.2) g/dL Albumin (3.5-5.0) g/dL Urine Protein (Negative) Urine Blood (Negative) Ur Leukocyte Esterase (Negative) Urine RBC (0-5) /hpf Urine WBC (0-5) /hpf Urine WBC Clumps (None) /hpf Ur Squamous Epith Cells (0-4) /hpf Urine Bacteria (None) /hpf Hyaline Casts (0-2) /lpf Urine Mucus (None) /hpf Urine Yeast (Budding) (None) /hpf 05/26/19 05/26/19 05/27/19 Range/Units 16:36 20:20 02:46 WBC (3.8-10.6) k/uL RBC (4.30-5.90) m/uL Hgb (13.0-17.5) gm/dL Hct (39.0-53.0) % MCHC (31.0-37.0) g/dL RDW (11.5-15.5) % Macrocytosis BUN (9-20) mg/dL Creatinine (0.66-1.25) mg/dL Glucose (74-99) mg/dL POC Glucose (mg/dL) 227 H 152 H (75-99) mg/dL Hemoglobin A1c (4.0-6.0) % Calcium (8.4-10.2) mg/dL Iron (65-175) ug/dL Ferritin (22.0-322.0) ng/mL Total Bilirubin (0.2-1.3) mg/dL Alkaline Phosphatase (38-126) U/L Total Protein (6.3-8.2) g/dL Albumin (3.5-5.0) g/dL Urine Protein 1+ H (Negative) Urine Blood Large H (Negative) Ur Leukocyte Esterase Large H (Negative) Urine RBC >182 H (0-5) /hpf Urine WBC >182 H (0-5) /hpf Urine WBC Clumps Many H (None) /hpf Ur Squamous Epith Cells 6 H (0-4) /hpf Urine Bacteria Occasional H (None) /hpf Hyaline Casts 107 H (0-2) /lpf Urine Mucus Rare H (None) /hpf Urine Yeast (Budding) Many H (None) /hpf 05/27/19 05/27/19 05/27/19 Range/Units 06:20 06:30 06:30 WBC 80.1 H* (3.8-10.6) k/uL RBC 2.93 L (4.30-5.90) m/uL Hgb 7.8 L (13.0-17.5) gm/dL Hct 28.3 L (39.0-53.0) % MCHC 27.5 L (31.0-37.0) g/dL RDW 29.1 H (11.5-15.5) % Macrocytosis Marked A BUN 67 H (9-20) mg/dL Creatinine 1.97 H (0.66-1.25) mg/dL Glucose 103 H (74-99) mg/dL POC Glucose (mg/dL) 122 H (75-99) mg/dL Hemoglobin A1c (4.0-6.0) % Calcium 6.7 L (8.4-10.2) mg/dL Iron (65-175) ug/dL Ferritin (22.0-322.0) ng/mL Total Bilirubin 1.8 H (0.2-1.3) mg/dL Alkaline Phosphatase 243 H (38-126) U/L Total Protein 5.5 L (6.3-8.2) g/dL Albumin 2.9 L (3.5-5.0) g/dL Urine Protein (Negative) Urine Blood (Negative) Ur Leukocyte Esterase (Negative) Urine RBC (0-5) /hpf Urine WBC (0-5) /hpf Urine WBC Clumps (None) /hpf Ur Squamous Epith Cells (0-4) /hpf Urine Bacteria (None) /hpf Hyaline Casts (0-2) /lpf Urine Mucus (None) /hpf Urine Yeast (Budding) (None) /hpf Assessment and Plan Assessment: Acute Cor pulmonale/CHF -Lasix drip -strict I and O, daily weights -Fluid restriction -Cardiology recs -Tele -Monitor electrolytes and replace accordingly - not on ACEI due to chronic hypotension requiring midodrine Right sided pleural effusion -Appears small -Consult pulmonary -Follow chest x-ray to ensure improvement Atrial fibrillation, permanent with rapid ventricular response -Increase metoprolol to 3 times daily as this is a patient had been taking at home, follow blood pressures closely -Not on anticoagulation due to hx of GIB -Aspirin -follow tele Urinary tract infection status post urinary retention -Rocephin -Await urine culture -Did have some budding yeast the on urinalysis continue to follow HIREN - nephro recs: Increase Lasix to continuous Lasix drip - strict I and O - avoid additional nephrotoxic agents - follow BMP Troponin elevation, likely secondary to CHF exacerbation -down trending -Cardiology recs -Cardiac monitoring - ASA Hyperglycemia -No history of diabetes -Sliding-scale insulin -hemoglobin A1c pending L heel ulcer, possible dry gangrene -Vascular suregy recs appreciated: off load, turn q 2 hours, poor overall prognosis R foot cellulitis -Doxycycline to complete course -ID recs appreciated Myeloproiferative disorder with Leukocytosis and normocytic anemia -Follow WBC -WBC count typically 30-40k -Elevated likely secondary to acute illness -Monitor for now -Iron, B 12 , and folate all in acceptable range Moderate Protein calorie malnutrition, Hypoalbuminemia -Supervisor Public Health Nursing recs - supplement Elevated Total Bilirubin, possibly due to acute stressors -Monitor for now Chronic conditions: CAD, HTN, HLD continue home medications DVT prophylaxis -Heparin Discussed with: Patient Anticipated discharge date: 3-[address]: Rehab Facility A total of 35 minutes was spent on the care of this complex patient more than 50% of the time was spent in counseling and care coordination.
[2019-05-27] MEDS: SODIUM FERRIC GLUCONAT-SUCROSE 125 MG in SODIUM CHLORIDE 0.9% 100 ML IVPB SCH (11:54)
--- NOTE | 2019-05-27 12:21 | P.PN ---
Subjective Progress Note Date: 05/27/19 This is a pleasant 79-year-old patient who follows Dr. GERI Pelayo in the office has history of CAD, prior bypass, prior PCI, PAD with previous surgical and peripheral intervention by Dr. Mcfadden and Dr. 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 Patient was recently in the hospital in April of this year, was discharged home and he came back with gangrene of the toe on his right foot, underwent surgery, was discharged back to extended care facility, and then came back again to the hospital with symptoms of shortness of breath, edema, and weight gain. Patient has known moderate mitral regurgitation, severe pulmonary hypertension, persistent atrial fibrillation, not a candidate for anticoagulation because of GI bleeding. He was supposed to go to [facility] and undergo placement of a watchman device, he is unfortunately not been able to do this because of several recurrent hospitalizations for heart failure. At the time of my examination this morning, patient continues to feel quite short of breath, in general he states he just does not feel well. Blood pressure 106/70 with a heart rate in the 80s, 98% on 5 L of oxygen. White blood cell count 98.8, hemoglobin 7.7, platelet count 250. Sodium 134, potassium 5.0, BUN 59, creatinine 1.4. Mag level I.8. 05/27/2019 Patient was seen and examined this morning, he does state at times it feels as though his breathing is improving, but this only last part of the day and then he again feels quite short of breath. He is complaining today of feeling extremely weak as well. Dr. Seals did have a discussion with the patient today regarding possible palliative care. He currently lives at home, they're also looking at possible placement for him.his blood pressure this morning 96/60 with a heart rate in the 100, 98% on 5 L of oxygen.White blood cell count 80.1, hemoglobin 7.8, platelet count 228, sodium 138, potassium 4.8, BUN 67 and creatinine 1.9. Magnesium level is 1.9 total bili 1.8 AST and ALT are normal, alk phos is 243.his repeat chest x-ray showed findings compatible with congestive heart failure, likely small associated effusions. Objective - Vital Signs Vital signs: Vital Signs Temp 97.6 F 05/27/19 08:00 Pulse 103 H 05/27/19 11:30 Resp 16 05/27/19 11:30 BP 96/65 05/27/19 11:30 Pulse Ox 98 05/27/19 11:30 Intake & Output 05/26/19 05/27/19 05/27/19 18:59 06:59 18:59 Intake Total 760 Output Total 250 200 Balance 510 -200 Weight 65 kg Intake: Oral 760 Output: Urine 250 200 Urine/Stool Mix 0 Other: Voiding Method Indwelling Catheter Indwelling Catheter # Bowel Movements 0 - Exam PHYSICAL EXAMINATION: GENERAL: 79-year-old gentleman in no acute distress at the time of my examination HEENT: Head is atraumatic, normocephalic. Pupils equal, round. Sclera anicteric. Conjunctiva are clear. Mucous membranes of the mouth are moist. Neck is supple. There is elevated jugular venous pressure. No carotid bruit is heard. HEART EXAMINATION: Heart S1-S2 irregularly irregular a grade 3/6 systolic murmur is heard at the apex CHEST EXAMINATION: Lungs reveal scattered rhonci THROUGHOUT with diminished air entry to the bases bilaterally ABDOMEN: Soft, nontender. Bowel sounds are heard. No organomegaly noted. EXTREMITIES: Diminished pulses bilaterally, 2+ bilateral pitting edema, amputation of the right toe. NEUROLOGIC patient is awake, alert and oriented 3 . . - Labs CBC & Chem 7: 05/27/19 06:30 05/27/19 06:30 Labs: Abnormal Lab Results - Last 24 Hours (Table) 05/26/19 05/26/19 05/26/19 Range/Units 06:12 06:12 12:35 WBC (3.8-10.6) k/uL RBC (4.30-5.90) m/uL Hgb (13.0-17.5) gm/dL Hct (39.0-53.0) % MCHC (31.0-37.0) g/dL RDW (11.5-15.5) % Macrocytosis BUN (9-20) mg/dL Creatinine (0.66-1.25) mg/dL Glucose (74-99) mg/dL POC Glucose (mg/dL) 255 H (75-99) mg/dL Hemoglobin A1c 6.6 H (4.0-6.0) % Calcium (8.4-10.2) mg/dL Iron 50 L (65-175) ug/dL Ferritin 741.5 H (22.0-322.0) ng/mL Total Bilirubin (0.2-1.3) mg/dL Alkaline Phosphatase (38-126) U/L Total Protein (6.3-8.2) g/dL Albumin (3.5-5.0) g/dL Urine Protein (Negative) Urine Blood (Negative) Ur Leukocyte Esterase (Negative) Urine RBC (0-5) /hpf Urine WBC (0-5) /hpf Urine WBC Clumps (None) /hpf Ur Squamous Epith Cells (0-4) /hpf Urine Bacteria (None) /hpf Hyaline Casts (0-2) /lpf Urine Mucus (None) /hpf Urine Yeast (Budding) (None) /hpf 05/26/19 05/26/19 05/27/19 Range/Units 16:36 20:20 02:46 WBC (3.8-10.6) k/uL RBC (4.30-5.90) m/uL Hgb (13.0-17.5) gm/dL Hct (39.0-53.0) % MCHC (31.0-37.0) g/dL RDW (11.5-15.5) % Macrocytosis BUN (9-20) mg/dL Creatinine (0.66-1.25) mg/dL Glucose (74-99) mg/dL POC Glucose (mg/dL) 227 H 152 H (75-99) mg/dL Hemoglobin A1c (4.0-6.0) % Calcium (8.4-10.2) mg/dL Iron (65-175) ug/dL Ferritin (22.0-322.0) ng/mL Total Bilirubin (0.2-1.3) mg/dL Alkaline Phosphatase (38-126) U/L Total Protein (6.3-8.2) g/dL Albumin (3.5-5.0) g/dL Urine Protein 1+ H (Negative) Urine Blood Large H (Negative) Ur Leukocyte Esterase Large H (Negative) Urine RBC >182 H (0-5) /hpf Urine WBC >182 H (0-5) /hpf Urine WBC Clumps Many H (None) /hpf Ur Squamous Epith Cells 6 H (0-4) /hpf Urine Bacteria Occasional H (None) /hpf Hyaline Casts 107 H (0-2) /lpf Urine Mucus Rare H (None) /hpf Urine Yeast (Budding) Many H (None) /hpf 05/27/19 05/27/19 05/27/19 Range/Units 06:20 06:30 06:30 WBC 80.1 H* (3.8-10.6) k/uL RBC 2.93 L (4.30-5.90) m/uL Hgb 7.8 L (13.0-17.5) gm/dL Hct 28.3 L (39.0-53.0) % MCHC 27.5 L (31.0-37.0) g/dL RDW 29.1 H (11.5-15.5) % Macrocytosis Marked A BUN 67 H (9-20) mg/dL Creatinine 1.97 H (0.66-1.25) mg/dL Glucose 103 H (74-99) mg/dL POC Glucose (mg/dL) 122 H (75-99) mg/dL Hemoglobin A1c (4.0-6.0) % Calcium 6.7 L (8.4-10.2) mg/dL Iron (65-175) ug/dL Ferritin (22.0-322.0) ng/mL Total Bilirubin 1.8 H (0.2-1.3) mg/dL Alkaline Phosphatase 243 H (38-126) U/L Total Protein 5.5 L (6.3-8.2) g/dL Albumin 2.9 L (3.5-5.0) g/dL Urine Protein (Negative) Urine Blood (Negative) Ur Leukocyte Esterase (Negative) Urine RBC (0-5) /hpf Urine WBC (0-5) /hpf Urine WBC Clumps (None) /hpf Ur Squamous Epith Cells (0-4) /hpf Urine Bacteria (None) /hpf Hyaline Casts (0-2) /lpf Urine Mucus (None) /hpf Urine Yeast (Budding) (None) /hpf 05/27/19 Range/Units 11:40 WBC (3.8-10.6) k/uL RBC (4.30-5.90) m/uL Hgb (13.0-17.5) gm/dL Hct (39.0-53.0) % MCHC (31.0-37.0) g/dL RDW (11.5-15.5) % Macrocytosis BUN (9-20) mg/dL Creatinine (0.66-1.25) mg/dL Glucose (74-99) mg/dL POC Glucose (mg/dL) 201 H (75-99) mg/dL Hemoglobin A1c (4.0-6.0) % Calcium (8.4-10.2) mg/dL Iron (65-175) ug/dL Ferritin (22.0-322.0) ng/mL Total Bilirubin (0.2-1.3) mg/dL Alkaline Phosphatase (38-126) U/L Total Protein (6.3-8.2) g/dL Albumin (3.5-5.0) g/dL Urine Protein (Negative) Urine Blood (Negative) Ur Leukocyte Esterase (Negative) Urine RBC (0-5) /hpf Urine WBC (0-5) /hpf Urine WBC Clumps (None) /hpf Ur Squamous Epith Cells (0-4) /hpf Urine Bacteria (None) /hpf Hyaline Casts (0-2) /lpf Urine Mucus (None) /hpf Urine Yeast (Budding) (None) /hpf Assessment and Plan Plan: Assessment and plan #1 acute diastolic congestive heart failure, on chronic #2 chronic persistent atrial fibrillation, patient not a candidate for anticoagulation secondary to GI bleeding, he was scheduled as an outpatient to undergo implantation of a watchman device #3 severe pulmonary hypertension #4 known history of coronary artery disease with prior bypass surgery and prior angioplasty #5 PAD #6 hypertension Plan a shunt will be initiated on IV Lasix drip today as per nephrology, he will also be given 3 doses of IV Venofer, we will continue to monitor renal function and urine output. DNP note has been reviewed, I agree with a documented findings and plan of care. Patient was seen and examined.
--- NOTE | 2019-05-27 13:58 | P.PN ---
Subjective Progress Note Date: 05/27/19 Principal diagnosis: Nonhealing wounds right lower extremity Objective - Vital Signs Vital signs: Vital Signs Temp 97.6 F 05/27/19 08:00 Pulse 104 H 05/27/19 12:48 Resp 16 05/27/19 12:00 BP 96/65 05/27/19 11:30 Pulse Ox 98 05/27/19 11:30 Intake & Output 05/26/19 05/27/19 05/27/19 18:59 06:59 18:59 Intake Total 760 100 Output Total 250 200 Balance 510 -200 100 Weight 65 kg Intake: Intake, IV Titration 100 Amount Sodium Ferric Gluconat- 100 Sucrose 125 mg In Sodium Chloride 0.9% 100 ml @ 100 mls/hr IVPB DAILY [facility] Rx#:[id number] Oral 760 Output: Urine 250 200 Urine/Stool Mix 0 Other: Voiding Method Indwelling Catheter Indwelling Catheter # Bowel Movements 0 - Integumentary Integumentary Comment(s): Both legs remain edematous. Wounds of the right lower extremity remain unchanged. - Labs CBC & Chem 7: 05/27/19 06:30 05/27/19 06:30 Labs: Abnormal Lab Results - Last 24 Hours (Table) 05/26/19 05/26/19 05/26/19 Range/Units 06:12 06:12 16:36 WBC (3.8-10.6) k/uL RBC (4.30-5.90) m/uL Hgb (13.0-17.5) gm/dL Hct (39.0-53.0) % MCHC (31.0-37.0) g/dL RDW (11.5-15.5) % Macrocytosis BUN (9-20) mg/dL Creatinine (0.66-1.25) mg/dL Glucose (74-99) mg/dL POC Glucose (mg/dL) 227 H (75-99) mg/dL Hemoglobin A1c 6.6 H (4.0-6.0) % Calcium (8.4-10.2) mg/dL Iron 50 L (65-175) ug/dL Ferritin 741.5 H (22.0-322.0) ng/mL Total Bilirubin (0.2-1.3) mg/dL Alkaline Phosphatase (38-126) U/L Total Protein (6.3-8.2) g/dL Albumin (3.5-5.0) g/dL Urine Protein (Negative) Urine Blood (Negative) Ur Leukocyte Esterase (Negative) Urine RBC (0-5) /hpf Urine WBC (0-5) /hpf Urine WBC Clumps (None) /hpf Ur Squamous Epith Cells (0-4) /hpf Urine Bacteria (None) /hpf Hyaline Casts (0-2) /lpf Urine Mucus (None) /hpf Urine Yeast (Budding) (None) /hpf 05/26/19 05/27/19 05/27/19 Range/Units 20:20 02:46 06:20 WBC (3.8-10.6) k/uL RBC (4.30-5.90) m/uL Hgb (13.0-17.5) gm/dL Hct (39.0-53.0) % MCHC (31.0-37.0) g/dL RDW (11.5-15.5) % Macrocytosis BUN (9-20) mg/dL Creatinine (0.66-1.25) mg/dL Glucose (74-99) mg/dL POC Glucose (mg/dL) 152 H 122 H (75-99) mg/dL Hemoglobin A1c (4.0-6.0) % Calcium (8.4-10.2) mg/dL Iron (65-175) ug/dL Ferritin (22.0-322.0) ng/mL Total Bilirubin (0.2-1.3) mg/dL Alkaline Phosphatase (38-126) U/L Total Protein (6.3-8.2) g/dL Albumin (3.5-5.0) g/dL Urine Protein 1+ H (Negative) Urine Blood Large H (Negative) Ur Leukocyte Esterase Large H (Negative) Urine RBC >182 H (0-5) /hpf Urine WBC >182 H (0-5) /hpf Urine WBC Clumps Many H (None) /hpf Ur Squamous Epith Cells 6 H (0-4) /hpf Urine Bacteria Occasional H (None) /hpf Hyaline Casts 107 H (0-2) /lpf Urine Mucus Rare H (None) /hpf Urine Yeast (Budding) Many H (None) /hpf 07/24/19 07/24/19 07/24/19 Range/Units 06:30 06:30 11:40 WBC 80.1 H* (3.8-10.6) k/uL RBC 2.93 L (4.30-5.90) m/uL Hgb 7.8 L (13.0-17.5) gm/dL Hct 28.3 L (39.0-53.0) % MCHC 27.5 L (31.0-37.0) g/dL RDW 29.1 H (11.5-15.5) % Macrocytosis Marked A BUN 67 H (9-20) mg/dL Creatinine 1.97 H (0.66-1.25) mg/dL Glucose 103 H (74-99) mg/dL POC Glucose (mg/dL) 201 H (75-99) mg/dL Hemoglobin A1c (4.0-6.0) % Calcium 6.7 L (8.4-10.2) mg/dL Iron (65-175) ug/dL Ferritin (22.0-322.0) ng/mL Total Bilirubin 1.8 H (0.2-1.3) mg/dL Alkaline Phosphatase 243 H (38-126) U/L Total Protein 5.5 L (6.3-8.2) g/dL Albumin 2.9 L (3.5-5.0) g/dL Urine Protein (Negative) Urine Blood (Negative) Ur Leukocyte Esterase (Negative) Urine RBC (0-5) /hpf Urine WBC (0-5) /hpf Urine WBC Clumps (None) /hpf Ur Squamous Epith Cells (0-4) /hpf Urine Bacteria (None) /hpf Hyaline Casts (0-2) /lpf Urine Mucus (None) /hpf Urine Yeast (Budding) (None) /hpf Assessment and Plan Assessment: #1 wounds right lower extremity. #2 multiple comorbid medical conditions which would make wound healing more complex. #3 patient is not a surgical candidate at this time. Plan: Continue local wound care and leg elevation as tolerated. Should the patient's clinical condition improved allowing for more aggressive care that I could be considered should medical condition significantly improved. Time with Patient: Less than 30
--- NOTE | 2019-05-27 14:37 | CT ---
EXAMINATION TYPE: CT chest wo con DATE OF EXAM: 05/27/2019 COMPARISON: 04/20/2018 HISTORY: Shortness of breath CT DLP: 568.[address] of the chest was performed with lung and mediastinal window settings submitted. The la ck of contrast limits evaluation of the vascular, mediastinal and parenchymal structures including th e upper abdomen. LUNGS: Moderate basilar effusions and atelectasis. Underlying infiltrates difficult to exclude. Scatt ered upper lobe patchy infiltrates seen as well. No evidence for pneumothorax. MEDIASTINUM/ELVIRA: Thoracic aorta is of normal caliber with limited evaluation given lack of contrast . The heart is enlarged. Coronary artery calcifications seen. Changes of median sternotomy CABG. No evidence for mediastinal mass. No lymph nodes greater than 1cm. UPPER ABDOMEN: No significant abnormality is seen. OTHER: No significant other abnormality. IMPRESSION: 1. Moderate basilar effusions and atelectasis. Underlying infiltrates difficult to exclude. Scattere d upper lobe patchy infiltrates seen as well.
--- NOTE | 2019-05-27 15:37 | P.CNPUL ---
<Crystal Hanna M - Last Filed: 05/27/19 14:55> History of Present Illness Consult date: 05/27/19 Requesting physician: Pj Avery Reason for consult: dyspnea Chief complaint: dyspnea, acute GI bleeding History of present illness: This is 79-year-old patient of Dr. Franklin, who was recently hospitalized with a diagnosis of right lower extremity cellulitis, with secondary sepsis, possibility of thromboembolic disease with right lower extremity ischemia, patient underwent amputation of the right fourth toe and debridement of the right medial calf wound by vascular surgery. Wound cultures showed MRSA, and patient was discharged to [facility] on daptomycin and doxycycline. Patient has extensive medical history including history of myeloproliferative disorder, severe peripheral arterial disease, severe pulmonary hypertension, right-sided congestive heart failure, coronary artery disease, hypertension, hyperlipidemia, Atrial fibrillation not on anticoagulation related to history of GI bleeding, severe pulmonary hypertension, benign prostatic hypertrophy, remote history of chronic tobacco dependence. During previous admission patient also had bilateral interstitial infiltrates consistent with congestive heart failure. On 05/24/2019 patient was brought back to the hospital per EMS with complaints of shortness of breath, and increased swelling of his legs and arms, patient had occasional cough, no fevers, no complaints of chest pain. Admission chest x-ray showed findings consistent with congestive heart failure, vascular congestion, and pulmonary edema. Lab work on admission showed a white blood cell, 73.1, hemoglobin of 7.9, platelet count is 197, INR is 1.5, electrolytes were within normal limits, BUN of 40, creatinine is 0.85, proBNP was 23,003 100, troponin was 0.067. Urinalysis showed large amount of leuk trase, greater than 182 of white blood cells and red blood cells, many yeast and occasional bacteria. Patient has been afebrile since admission, he has been on supplemental oxygen, currently down to 3 L of oxygen and the pulse ox of 97%, patient is controlled A. fib on the monitor, with nonspecific ST and T-wave abnormality in the inferior and anterolateral leads with consideration of possible ischemia. [facility] patient was very weak, basically bedbound, and unable to participate with any therapy, he had increasing shortness of breath since discharge from the hospital with worsening swelling of his upper and lower extremities. Patient has developed bedsores notably one on his left heel. Patient was admitted for acute exacerbation of acute diastolic congestive heart failure, he was started on IV Lasix of 40 mg every 12 hours, he is completing a course of doxycycline, and IV Rocephin was added for urinary tract infection. 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 CT chest without contrast was completed on 05/27/2019 showing moderate basilar effusions and atelectasis. We're consulted in regards to bilateral pleural effusions. Review of Systems All systems: negative Constitutional: Reports weakness, Denies chills, Denies fever Eyes: denies blurred vision, denies pain Ears, nose, mouth and throat: Denies headache, Denies sore throat Cardiovascular: Denies chest pain, Denies shortness of breath Respiratory: Reports dyspnea, Denies cough Gastrointestinal: Denies abdominal pain, Denies diarrhea, Denies nausea, Denies vomiting Musculoskeletal: Denies myalgias Integumentary: Denies pruritus, Denies rash Neurological: Denies numbness, Denies weakness Psychiatric: Denies anxiety, Denies depression Endocrine: Denies fatigue, Denies weight change Past Medical History Past Medical History: Atrial Flutter, Blood Disorder, Coronary Artery Disease (CAD), Heart Failure, GERD/Reflux, GI Bleed, Hyperlipidemia, Hypertension, Myocardial Infarction (SD), Prostate Disorder, Vascular Disorder Additional Past Medical History / Comment(s): myeloproliferative disorder( leukocytosis and thrombocytosis), esophagitis, severe PAD, severe pulmonary hypertension , right-sided heart failure with severe pulmonary hypertension, BPH, Exercise intolerance Last Myocardial Infarction Date:: 2017 History of Any Multi-Drug Resistant Organisms: Acinetobacter (MDRO), MRSA Date of last positivie culture/infection: 05/08/19-MRSA; 11/18/17 Acinetobacter MDRO Source:: Foot-MRSA; Sputum-Acinetobacter Past Surgical History: Cholecystectomy, Coronary Bypass/CABG, Heart Catheterization, Hernia Repair Additional Past Surgical History / Comment(s): Cardiac catheterization on 10/04/2014, right femoral artery/common femoral artery endarterectomy. 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 tmo inguinal hernia repair, EGD, colonoscopy. Cath with PCI to RCA 02/04/19. Cabg x3 2007. Past Anesthesia/Blood Transfusion Reactions: No Reported Reaction Smoking Status: Former smoker - Past Family History Brother(s) Family Medical History: Cancer Additional Family Medical History / Comment(s): 2 with lung and 1 with prostate Mother Family Medical History: Myocardial Infarction (SD) Father History Unknown: Yes Additional Family Medical History / Comment(s): AT AGE 83 FROM "[place] OF THE ARTERIES" Medications and Allergies Home Medications Medication Instructions Recorded Confirmed Type Atorvastatin [Lipitor] 40 mg PO HS 09/27/14 05/24/19 History Aspirin 81 mg PO DAILY #30 chew 04/07/18 05/24/19 Rx Clopidogrel [Plavix] 75 mg PO DAILY #30 tab 04/07/18 05/24/19 Rx Pantoprazole Sodium [Protonix] 40 mg PO DAILY 07/14/18 05/24/19 History rOPINIRole HCL [Requip] 1 mg PO HS 02/12/19 05/24/19 History Allopurinol [Zyloprim] 100 mg PO DAILY 03/31/19 05/24/19 History Epoetin [place] [Procrit] 40,000 units IV ONCE 04/03/19 05/24/19 History Furosemide [Lasix] 40 mg PO BID@0900,1600 #60 tab 05/15/19 05/24/19 Rx Doxycycline [Vibramycin] 100 mg PO BID #20 cap 05/18/19 05/24/19 Rx HYDROcodone/APAP 10-325MG [[place] 1 tab PO Q6HR PRN 3 Days #12 tab 05/19/19 05/24/19 Rx 10-325] Acetaminophen Tab [Tylenol Tab] 650 mg PO Q6H PRN 05/24/19 05/24/19 History Albuterol Nebulized [Ventolin 2.5 mg INHALATION RT-DAILY 05/24/19 05/24/19 History Nebulized] Ergocalciferol [Vitamin D2 50,000 unit PO WE 05/24/19 05/24/19 History (DRISDOL)] Ipratropium-Albuterol Nebulize 3 ml INHALATION RT-Q6H 05/24/19 05/24/19 History [Duoneb 0.5 mg-3 mg/3 ml Soln] Liquid Protein 30 ml PO DAILY 05/24/19 05/24/19 History Magnesium Hydroxide [Milk of 2,400 mg PO DAILY PRN 05/24/19 05/24/19 History Magnesia] Metoprolol Tartrate [Lopressor] 25 mg PO TID@0600,1200,2000 05/24/19 05/24/19 History Midodrine [ProAmatine] 5 mg PO TID@0630,1130,1630 05/24/19 05/24/19 History Allergies Allergy/AdvReac Type Severity Reaction Status Date / Time No Known Allergies Allergy Verified 05/24/19 08:11 Physical Exam Vitals: Vital Signs Temp Pulse Pulse Resp BP Pulse Ox 05/27/19 12:48 104 H 05/27/19 12:35 100 05/27/19 12:00 103 H 16 05/27/19 11:30 103 H 16 96/65 98 05/27/19 08:11 102 H 05/27/19 08:01 106 H 05/27/19 08:00 97.6 F 104 H 18 94/46 97 05/27/19 03:47 103 H 19 05/27/19 03:46 97.9 F 103 H 19 98/50 97 05/27/19 00:00 97.7 F 107 H 18 92/51 96 05/26/19 21:51 101 H 05/26/19 21:40 100 05/26/19 21:39 96 19 99/71 100 05/26/19 20:00 97.5 F L 110 H 19 96/46 99 05/26/19 16:36 100 05/26/19 16:21 100 05/26/19 15:49 97.5 F L 102 H 18 102/50 99 Intake and Output 05/26/19 05/27/19 05/27/19 22:59 06:59 14:59 Intake Total 400 100 Output Total 250 200 Balance 150 -200 100 Intake: Intake, IV Titration 100 Amount Sodium Ferric Gluconat- 100 Sucrose 125 mg In Sodium Chloride 0.9% 100 ml @ 100 mls/hr IVPB DAILY [facility] Rx#:[id number] Oral 400 Output: Urine 250 200 Urine/Stool Mix 0 Other: Voiding Method Indwelling Catheter Indwelling Catheter Indwelling Catheter # Bowel Movements 0 Weight 65 kg GENERAL EXAM: Alert, pleasant, 79-year-old white male on 3 L of oxygen and the pulse ox of 97% comfortable in no apparent distress. HEAD: Normocephalic/atraumatic. EYES: Normal reaction of pupils, equal size. Conjunctiva pink, sclera white. NOSE: Clear with pink turbinates. THROAT: No erythema or exudates. NECK: No masses, no JVD, no thyroid enlargement, no adenopathy. CHEST: No chest wall deformity. Symmetrical expansion. LUNGS: Equal air entry with diminished breath sounds at bilateral bases and scattered rhonchi throughout CVS: Regular rate and rhythm, normal S1 and S2, no gallops, no murmurs, no rubs ABDOMEN: Soft, nontender. No hepatosplenomegaly, normal bowel sounds, no guarding or rigidity. EXTREMITIES: No clubbing, 2+ bilateral lower extremity pitting edema, no cyanosis, 2+ pulses and upper and lower extremities. Right fourth toe amputated site, right mid leg wound with concern for possible cellulitis, local wound care with dressing, Aquasol silver dressing to the foot and may need to the right leg wound area. Left heel deep tissue injury MUSCULOSKELETAL: Muscle strength and tone normal. SPINE: No scoliosis or deformity SKIN: No rashes CENTRAL NERVOUS SYSTEM: Alert and oriented -3. No focal deficits, tone is normal in all 4 extremities. PSYCHIATRIC: Alert and oriented -3. Appropriate affect. Intact judgment and insight. Results - Laboratory Findings CBC and BMP: 05/27/19 06:30 05/27/19 06:30 PT/INR, D-dimer PT 15.0 sec (9.0-12.0) H 05/24/19 08:21 INR 1.5 (<1.2) H 05/24/19 08:21 Abnormal lab findings: Abnormal Labs 05/24/19 05/24/19 05/24/19 08:21 08:21 08:21 WBC 73.1 H* RBC 2.92 L Hgb 7.9 L Hct 27.4 L MCHC 28.8 L RDW 29.7 H Neutrophils # (Manual) 68.70 H Lymphocytes # (Manual) 0.73 L Eosinophils # (Manual) 0.73 H Metamyelocytes # (Man) 1.46 H Myelocytes # (Manual) 1.46 H Nucleated RBCs 4 H Macrocytosis PT 15.0 H INR 1.5 H Sodium Carbon Dioxide BUN 40 H Creatinine Glucose 137 H POC Glucose (mg/dL) Hemoglobin A1c Calcium 6.8 L Iron Ferritin Total Bilirubin 2.1 H Alkaline Phosphatase 197 H Troponin I Total Protein 5.3 L Albumin 2.7 L Urine Protein Urine Blood Ur Leukocyte Esterase Urine RBC Urine WBC Urine WBC Clumps Ur Squamous Epith Cells Urine Bacteria Hyaline Casts Urine Mucus Urine Yeast (Budding) 05/24/19 05/24/19 05/24/19 08:21 16:04 21:18 WBC RBC Hgb Hct MCHC RDW Neutrophils # (Manual) Lymphocytes # (Manual) Eosinophils # (Manual) Metamyelocytes # (Man) Myelocytes # (Manual) Nucleated RBCs Macrocytosis PT INR Sodium Carbon Dioxide BUN Creatinine Glucose POC Glucose (mg/dL) Hemoglobin A1c Calcium Iron Ferritin Total Bilirubin Alkaline Phosphatase Troponin I 0.076 H* 0.073 H* 0.067 H* Total Protein Albumin Urine Protein Urine Blood Ur Leukocyte Esterase Urine RBC Urine WBC Urine WBC Clumps Ur Squamous Epith Cells Urine Bacteria Hyaline Casts Urine Mucus Urine Yeast (Budding) 05/25/19 05/25/19 05/26/19 06:24 06:24 06:12 WBC 92.9 H* 98.8 H* RBC 2.93 L 2.82 L Hgb 8.0 L 7.7 L Hct 27.9 L 27.3 L MCHC 28.5 L 28.4 L RDW 29.2 H 29.3 H Neutrophils # (Manual) Lymphocytes # (Manual) Eosinophils # (Manual) Metamyelocytes # (Man) Myelocytes # (Manual) Nucleated RBCs Macrocytosis Marked A Marked A PT INR Sodium 136 L Carbon Dioxide BUN 48 H Creatinine Glucose 204 H POC Glucose (mg/dL) Hemoglobin A1c Calcium 6.8 L Iron Ferritin Total Bilirubin 1.7 H Alkaline Phosphatase 205 H Troponin I Total Protein 5.3 L Albumin 2.7 L Urine Protein Urine Blood Ur Leukocyte Esterase Urine RBC Urine WBC Urine WBC Clumps Ur Squamous Epith Cells Urine Bacteria Hyaline Casts Urine Mucus Urine Yeast (Budding) 05/26/19 05/26/19 05/26/19 06:12 06:12 06:12 WBC RBC Hgb Hct MCHC RDW Neutrophils # (Manual) Lymphocytes # (Manual) Eosinophils # (Manual) Metamyelocytes # (Man) Myelocytes # (Manual) Nucleated RBCs Macrocytosis PT INR Sodium 134 L Carbon Dioxide 21 L BUN 59 H Creatinine 1.47 H Glucose 225 H POC Glucose (mg/dL) Hemoglobin A1c 6.6 H Calcium 6.7 L Iron 50 L Ferritin 741.5 H Total Bilirubin 1.6 H Alkaline Phosphatase 172 H Troponin I Total Protein 5.3 L Albumin 2.8 L Urine Protein Urine Blood Ur Leukocyte Esterase Urine RBC Urine WBC Urine WBC Clumps Ur Squamous Epith Cells Urine Bacteria Hyaline Casts Urine Mucus Urine Yeast (Budding) 05/26/19 05/26/19 05/26/19 12:35 16:36 20:20 WBC RBC Hgb Hct MCHC RDW Neutrophils # (Manual) Lymphocytes # (Manual) Eosinophils # (Manual) Metamyelocytes # (Man) Myelocytes # (Manual) Nucleated RBCs Macrocytosis PT INR Sodium Carbon Dioxide BUN Creatinine Glucose POC Glucose (mg/dL) 255 H 227 H 152 H Hemoglobin A1c Calcium Iron Ferritin Total Bilirubin Alkaline Phosphatase Troponin I Total Protein Albumin Urine Protein Urine Blood Ur Leukocyte Esterase Urine RBC Urine WBC Urine WBC Clumps Ur Squamous Epith Cells Urine Bacteria Hyaline Casts Urine Mucus Urine Yeast (Budding) 05/27/19 05/27/19 05/27/19 02:46 06:20 06:30 WBC 80.1 H* RBC 2.93 L Hgb 7.8 L Hct 28.3 L MCHC 27.5 L RDW 29.1 H Neutrophils # (Manual) Lymphocytes # (Manual) Eosinophils # (Manual) Metamyelocytes # (Man) Myelocytes # (Manual) Nucleated RBCs Macrocytosis Marked A PT INR Sodium Carbon Dioxide BUN Creatinine Glucose POC Glucose (mg/dL) 122 H Hemoglobin A1c Calcium Iron Ferritin Total Bilirubin Alkaline Phosphatase Troponin I Total Protein Albumin Urine Protein 1+ H Urine Blood Large H Ur Leukocyte Esterase Large H Urine RBC >182 H Urine WBC >182 H Urine WBC Clumps Many H Ur Squamous Epith Cells 6 H Urine Bacteria Occasional H Hyaline Casts 107 H Urine Mucus Rare H Urine Yeast (Budding) Many H 05/27/19 05/27/19 06:30 11:40 WBC RBC Hgb Hct MCHC RDW Neutrophils # (Manual) Lymphocytes # (Manual) Eosinophils # (Manual) Metamyelocytes # (Man) Myelocytes # (Manual) Nucleated RBCs Macrocytosis PT INR Sodium Carbon Dioxide BUN 67 H Creatinine 1.97 H Glucose 103 H POC Glucose (mg/dL) 201 H Hemoglobin A1c Calcium 6.7 L Iron Ferritin Total Bilirubin 1.8 H Alkaline Phosphatase 243 H Troponin I Total Protein 5.5 L Albumin 2.9 L Urine Protein Urine Blood Ur Leukocyte Esterase Urine RBC Urine WBC Urine WBC Clumps Ur Squamous Epith Cells Urine Bacteria Hyaline Casts Urine Mucus Urine Yeast (Budding) - Diagnostic Findings Chest x-ray: report reviewed, image reviewed CT scan - chest: report reviewed, image reviewed Assessment and Plan Plan: Assessment: #1. Acute exacerbation of chronic congestive heart failure with diastolic dysfunction #2. Bilateral pleural effusions, right greater than left #3. Right lower extremity cellulitis #4. Acute kidney injury #5. Acute urinary tract infection #6. Urinary retention status post [place] catheter placement #7. Anemia #8. Recent admission for right lower leg cellulitis, ischemia involving the right lower extremity, that is post right fourth toe amputation #9. MRSA infection in the right leg wound #10. Known history of moderately severe mitral regurgitation, severe pulmonary hypertension #11. Persistent atrial fibrillation, not a candidate for anticoagulation related to episodes of GI bleeding #12. Severe peripheral arterial vascular disease Plan: Obtain ultrasound of the chest, we'll plan on right-sided thoracentesis likely tomorrow, continue with the IV diuretics right now. Continue with the doxycycline and Rocephin. CTA chest and chest x-rays have been reviewed, showing interstitial prominence, and bilateral pleural effusions right greater than the left. Renal profile is worsening, and patient is being transitioned to Lasix infusion. We'll continue to follow I performed a history & physical examination of the patient and discussed their management with my nurse practitioner, Crystal Hanna. I reviewed the nurse practitioner's note and agree with the documented findings and plan of care. Lung sounds are positive for diminished breath sounds. The findings and the impression was discussed with the patient. I attest to the documentation by the nurse practitioner. Time with Patient: Greater than 30 <Anita Moreno - Last Filed: 05/27/19 15:43> History of Present Illness History of present illness: Note that this is [id number] male patient who was hospitalized for shortness of breath. The patient is known to me and I took care of this patient during a recent complicated hospitalization during which the patient had a cellulitis and a necrotic right fourth toe is to extensive peripheral vascular disease involving the right lower extremity and the patient underwent an amputation of the fourth toe by vascular surgery and infection was treated and the patient was discharged home on doxycycline. He is known to have multiple medical problems and comorbidities including CHF with diastolic dysfunction, severe pulmonary hypertension with right-sided failure, chronic atrial fibrillation the patient is on no anticoagulants, and this is related to previous GI bleeds. The patient also has coronary artery disease, peripheral vascular disease, hypertension, hyperlipidemia and history of chronic myeloproliferative disorder Physical Exam Vitals: Vital Signs Temp Pulse Pulse Resp BP Pulse Ox 05/27/19 15:13 97.5 F L 05/27/19 12:48 104 H 05/27/19 12:35 100 05/27/19 12:00 103 H 16 05/27/19 11:30 103 H 16 96/65 98 05/27/19 08:11 102 H 05/27/19 08:01 106 H 05/27/19 08:00 97.6 F 104 H 18 94/46 97 05/27/19 03:47 103 H 19 05/27/19 03:46 97.9 F 103 H 19 98/50 97 05/27/19 00:00 97.7 F 107 H 18 92/51 96 05/26/19 21:51 101 H 05/26/19 21:40 100 05/26/19 21:39 96 19 99/71 100 05/26/19 20:00 97.5 F L 110 H 19 96/46 99 05/26/19 16:36 100 05/26/19 16:21 100 05/26/19 15:49 97.5 F L 102 H 18 102/50 99 Intake and Output 05/27/19 05/27/19 05/27/19 06:59 14:59 22:59 Intake Total 100 Output Total 200 Balance -200 100 Intake: Intake, IV Titration 100 Amount Sodium Ferric Gluconat- 100 Sucrose 125 mg In Sodium Chloride 0.9% 100 ml @ 100 mls/hr IVPB DAILY [facility] Rx#:[id number] Output: Urine 200 Other: Voiding Method Indwelling Catheter Indwelling Catheter Weight 65 kg Results - Laboratory Findings CBC and BMP: 05/27/19 06:30 05/27/19 06:30 PT/INR, D-dimer PT 15.0 sec (9.0-12.0) H 05/24/19 08:21 INR 1.5 (<1.2) H 05/24/19 08:21 Abnormal lab findings: Abnormal Labs 05/24/19 05/24/19 05/24/19 08:21 08:21 08:21 WBC 73.1 H* RBC 2.92 L Hgb 7.9 L Hct 27.4 L MCHC 28.8 L RDW 29.7 H Neutrophils # (Manual) 68.70 H Lymphocytes # (Manual) 0.73 L Eosinophils # (Manual) 0.73 H Metamyelocytes # (Man) 1.46 H Myelocytes # (Manual) 1.46 H Nucleated RBCs 4 H Macrocytosis PT 15.0 H INR 1.5 H Sodium Carbon Dioxide BUN 40 H Creatinine Glucose 137 H POC Glucose (mg/dL) Hemoglobin A1c Calcium 6.8 L Iron Ferritin Total Bilirubin 2.1 H Alkaline Phosphatase 197 H Troponin I Total Protein 5.3 L Albumin 2.7 L Urine Protein Urine Blood Ur Leukocyte Esterase Urine RBC Urine WBC Urine WBC Clumps Ur Squamous Epith Cells Urine Bacteria Hyaline Casts Urine Mucus Urine Yeast (Budding) 05/24/19 05/24/19 05/24/19 08:21 16:04 21:18 WBC RBC Hgb Hct MCHC RDW Neutrophils # (Manual) Lymphocytes # (Manual) Eosinophils # (Manual) Metamyelocytes # (Man) Myelocytes # (Manual) Nucleated RBCs Macrocytosis PT INR Sodium Carbon Dioxide BUN Creatinine Glucose POC Glucose (mg/dL) Hemoglobin A1c Calcium Iron Ferritin Total Bilirubin Alkaline Phosphatase Troponin I 0.076 H* 0.073 H* 0.067 H* Total Protein Albumin Urine Protein Urine Blood Ur Leukocyte Esterase Urine RBC Urine WBC Urine WBC Clumps Ur Squamous Epith Cells Urine Bacteria Hyaline Casts Urine Mucus Urine Yeast (Budding) 05/25/19 05/25/19 05/26/19 06:24 06:24 06:12 WBC 92.9 H* 98.8 H* RBC 2.93 L 2.82 L Hgb 8.0 L 7.7 L Hct 27.9 L 27.3 L MCHC 28.5 L 28.4 L RDW 29.2 H 29.3 H Neutrophils # (Manual) Lymphocytes # (Manual) Eosinophils # (Manual) Metamyelocytes # (Man) Myelocytes # (Manual) Nucleated RBCs Macrocytosis Marked A Marked A PT INR Sodium 136 L Carbon Dioxide BUN 48 H Creatinine Glucose 204 H POC Glucose (mg/dL) Hemoglobin A1c Calcium 6.8 L Iron Ferritin Total Bilirubin 1.7 H Alkaline Phosphatase 205 H Troponin I Total Protein 5.3 L Albumin 2.7 L Urine Protein Urine Blood Ur Leukocyte Esterase Urine RBC Urine WBC Urine WBC Clumps Ur Squamous Epith Cells Urine Bacteria Hyaline Casts Urine Mucus Urine Yeast (Budding) 05/26/19 05/26/19 05/26/19 06:12 06:12 06:12 WBC RBC Hgb Hct MCHC RDW Neutrophils # (Manual) Lymphocytes # (Manual) Eosinophils # (Manual) Metamyelocytes # (Man) Myelocytes # (Manual) Nucleated RBCs Macrocytosis PT INR Sodium 134 L Carbon Dioxide 21 L BUN 59 H Creatinine 1.47 H Glucose 225 H POC Glucose (mg/dL) Hemoglobin A1c 6.6 H Calcium 6.7 L Iron 50 L Ferritin 741.5 H Total Bilirubin 1.6 H Alkaline Phosphatase 172 H Troponin I Total Protein 5.3 L Albumin 2.8 L Urine Protein Urine Blood Ur Leukocyte Esterase Urine RBC Urine WBC Urine WBC Clumps Ur Squamous Epith Cells Urine Bacteria Hyaline Casts Urine Mucus Urine Yeast (Budding) 05/26/19 05/26/19 05/26/19 12:35 16:36 20:20 WBC RBC Hgb Hct MCHC RDW Neutrophils # (Manual) Lymphocytes # (Manual) Eosinophils # (Manual) Metamyelocytes # (Man) Myelocytes # (Manual) Nucleated RBCs Macrocytosis PT INR Sodium Carbon Dioxide BUN Creatinine Glucose POC Glucose (mg/dL) 255 H 227 H 152 H Hemoglobin A1c Calcium Iron Ferritin Total Bilirubin Alkaline Phosphatase Troponin I Total Protein Albumin Urine Protein Urine Blood Ur Leukocyte Esterase Urine RBC Urine WBC Urine WBC Clumps Ur Squamous Epith Cells Urine Bacteria Hyaline Casts Urine Mucus Urine Yeast (Budding) 05/27/19 05/27/19 05/27/19 02:46 06:20 06:30 WBC 80.1 H* RBC 2.93 L Hgb 7.8 L Hct 28.3 L MCHC 27.5 L RDW 29.1 H Neutrophils # (Manual) Lymphocytes # (Manual) Eosinophils # (Manual) Metamyelocytes # (Man) Myelocytes # (Manual) Nucleated RBCs Macrocytosis Marked A PT INR Sodium Carbon Dioxide BUN Creatinine Glucose POC Glucose (mg/dL) 122 H Hemoglobin A1c Calcium Iron Ferritin Total Bilirubin Alkaline Phosphatase Troponin I Total Protein Albumin Urine Protein 1+ H Urine Blood Large H Ur Leukocyte Esterase Large H Urine RBC >182 H Urine WBC >182 H Urine WBC Clumps Many H Ur Squamous Epith Cells 6 H Urine Bacteria Occasional H Hyaline Casts 107 H Urine Mucus Rare H Urine Yeast (Budding) Many H 05/27/19 05/27/19 06:30 11:40 WBC RBC Hgb Hct MCHC RDW Neutrophils # (Manual) Lymphocytes # (Manual) Eosinophils # (Manual) Metamyelocytes # (Man) Myelocytes # (Manual) Nucleated RBCs Macrocytosis PT INR Sodium Carbon Dioxide BUN 67 H Creatinine 1.97 H Glucose 103 H POC Glucose (mg/dL) 201 H Hemoglobin A1c Calcium 6.7 L Iron Ferritin Total Bilirubin 1.8 H Alkaline Phosphatase 243 H Troponin I Total Protein 5.5 L Albumin 2.9 L Urine Protein Urine Blood Ur Leukocyte Esterase Urine RBC Urine WBC Urine WBC Clumps Ur Squamous Epith Cells Urine Bacteria Hyaline Casts Urine Mucus Urine Yeast (Budding) Assessment and Plan Plan: The patient has bilateral pleural effusion large and he would benefit from bilateral thoracentesis. We'll proceed accordingly. CAT scan of the chest was reviewed and the patient has large bilateral pleural effusions most likely related to his underlying CHF.
--- NOTE | 2019-05-27 16:28 | US ---
EXAMINATION TYPE: US chest DATE OF EXAM: 05/27/2019 COMPARISON: CT chest same date CLINICAL HISTORY: bilateral pleural effusions. TECHNIQUE: Targeted ultrasound of the posterior bilateral chest EXAM MEASUREMENTS: Right Pleural Effusion pocket size: 11.0 cm Right skin surface to fluid distance: 2.5 cm Left Pleural Effusion pocket size: 8.2 cm Left skin surface to fluid distance: 3.0 cm Right side was marked for possible thoracentesis outside the dept. Left side was marked for possible thoracentesis outside the dept. Pulmonologists are able to review the images in the patient?s EMR. IMPRESSIONS: Bilateral pleural effusions.
--- NOTE | 2019-05-27 16:34 | PN ---
PROGRESS NOTE DATE OF SERVICE: 05/27/2019. REASON FOR FOLLOWUP: Right 4th toe wound and right leg wound. INTERVAL HISTORY: The patient is currently afebrile, has been complaining of shortness of breath. He did have some cough. Denies having any chest pain. No pain to the right foot or the leg wound area. PHYSICAL EXAMINATION: Blood pressure is 96/55 with a pulse of 100. Temp 98. He is 98% on 5 L nasal cannula. General description is an elderly male lying in bed in no distress. Respiratory system: Unlabored breathing. Clear to auscultation anteriorly. Heart S1, S2. Regular rate and rhythm. ABDOMEN: Soft, no tenderness. Right 4th toe wound with minimal necrotic changes but no redness and right leg wound is currently dressed up. No obvious drainage on the dressing. LABS: Hemoglobin is 10.1, white count 8 with a BUN of 37, creatinine 1.97. DIAGNOSTIC IMPRESSION AND PLAN: Patient with right foot fourth toe amputation site wound now with right leg wound. Continue local wound care as ordered. Currently on doxycycline to continue while monitoring clinical course closely. Continue supportive care. MMODL / IJN: [id number] /
[2019-05-27 16:51] LABS: Glucose,Whole Blood 168 mg/dL (75-99)
[2019-05-27 20:26] LABS: Glucose,Whole Blood 148 mg/dL (75-99)
[2019-05-27] MEDS: ATORVASTATIN 40 MG TAB PO SCH (21:45)
[2019-05-28] MEDS: PANTOPRAZOLE 40 MG TABLET PO SCH (05:27)
[2019-05-28] MEDS: MIDODRINE 5 MG TAB PO SCH ×3 (05:27→17:16)
[2019-05-28 06:07] LABS: Glucose,Whole Blood 128 mg/dL (75-99)
[2019-05-28] MEDS: INSULIN ASPART (NovoLOG) 100 UNIT/ML VIAL SQ SCH ×3 (06:16→17:17)
[2019-05-28 08:11] LABS: Albumin 2.8 g/dL (3.5-5.0); Calcium 6.6 mg/dL (8.4-10.2); Magnesium 1.8 mg/dL (1.6-2.3); Potassium 4.4 mmol/L (3.5-5.1); Total Bilirubin 1.6 mg/dL (0.2-1.3); Total Protein 5.3 g/dL (6.3-8.2)
[2019-05-28] MEDS: IPRATROPIUM-ALBUTEROL 3 ML NEB INHALATION SCH ×4 (08:34→20:32)
--- NOTE | 2019-05-28 09:53 | P.PN ---
Subjective Progress Note Date: 05/28/19 Patient seen and examined. Complaint of abdominal pain. Still with shortness of breath. Objective - Vital Signs Vital signs: Vital Signs Temp 97.6 F 05/28/19 03:43 Pulse 88 05/28/19 08:47 Resp 19 05/28/19 03:44 BP 109/48 05/28/19 05:27 Pulse Ox 100 05/28/19 03:43 Intake & Output 05/27/19 05/28/19 05/28/19 18:59 06:59 18:59 Intake Total 300 Output Total 900 Balance 300 -900 Weight 65.2 kg Intake: Intake, IV Titration 100 Amount Sodium Ferric Gluconat- 100 Sucrose 125 mg In Sodium Chloride 0.9% 100 ml @ 100 mls/hr IVPB DAILY [facility] Rx#:[id number] Oral 200 Output: Urine 900 Uretheral (Leggett) 500 Other: Voiding Method Indwelling Catheter Indwelling Catheter - Exam Patient is in mild respiratory distress Heart irregular Lungs with coarse breath sounds, decreased respirations Abdomen mildly distended, tenderness to palpation diffusely, ecchymosis at injection sites Fourth right toe amputation site clean and dry. Delayed capillary refill bilaterally lower extremities. Offloading boots in place - Labs CBC & Chem 7: 05/27/19 06:30 05/28/19 06:45 Labs: Abnormal Lab Results - Last 24 Hours (Table) 05/27/19 05/27/19 05/27/19 Range/Units 11:40 16:49 20:05 Sodium (137-145) mmol/L BUN (9-20) mg/dL Creatinine (0.66-1.25) mg/dL POC Glucose (mg/dL) 201 H 168 H 148 H (75-99) mg/dL Calcium (8.4-10.2) mg/dL Total Bilirubin (0.2-1.3) mg/dL Alkaline Phosphatase (38-126) U/L Total Protein (6.3-8.2) g/dL Albumin (3.5-5.0) g/dL 05/28/19 05/28/19 Range/Units 06:05 06:45 Sodium 135 L (137-145) mmol/L BUN 73 H (9-20) mg/dL Creatinine 1.96 H (0.66-1.25) mg/dL POC Glucose (mg/dL) 128 H (75-99) mg/dL Calcium 6.6 L (8.4-10.2) mg/dL Total Bilirubin 1.6 H (0.2-1.3) mg/dL Alkaline Phosphatase 241 H (38-126) U/L Total Protein 5.3 L (6.3-8.2) g/dL Albumin 2.8 L (3.5-5.0) g/dL Assessment and Plan Plan: Abdominal pain Acute diastolic CHF exacerbation Troponin elevation, likely secondary to CHF exacerbation L heel pressure wound R foot woudn s/p 4th toe amputation Myeloproiferative disorder w/ Leukocytosis and normocytic anemia Protein calorie malnutrition w/ Hypoalbuminemia Permanent Atrial Fibrillation Elevated Total Bilirubin, possibly due to acute stressors Chronic conditions: CAD, HTN, HLD DVT prophylaxis Nursing discussed abd pain with primary. No plans vascular surgical intervention. Very poor prognosis overall Offloading, turn q2 . continue local wound care to BLE. Monitor closely. continue supportive care. Poor prognosis overall with multiple recent readmissions and PMH. Would consider palliative care c/s for goals of care
[2019-05-28] MEDS ORDERED: POLYETHYLENE GLYCOL 3350 17 GM POWD.PACK PO STA (10:19)
--- NOTE | 2019-05-28 11:11 | P.PN ---
Subjective Progress Note Date: 05/28/19 This is a pleasant 79-year-old patient who follows Dr. GERI Pelayo in the office has history of CAD, prior bypass, prior PCI, PAD with previous surgical and peripheral intervention by Dr. Mcfadden and Dr. 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 Patient was recently in the hospital in April of this year, was discharged home and he came back with gangrene of the toe on his right foot, underwent surgery, was discharged back to extended care facility, and then came back again to the hospital with symptoms of shortness of breath, edema, and weight gain. Patient has known moderate mitral regurgitation, severe pulmonary hypertension, persistent atrial fibrillation, not a candidate for anticoagulation because of GI bleeding. He was supposed to go to [facility] and undergo placement of a watchman device, he is unfortunately not been able to do this because of several recurrent hospitalizations for heart failure. At the time of my examination this morning, patient continues to feel quite short of breath, in general he states he just does not feel well. Blood pressure 106/70 with a heart rate in the 80s, 98% on 5 L of oxygen. White blood cell count 98.8, hemoglobin 7.7, platelet count 250. Sodium 134, potassium 5.0, BUN 59, creatinine 1.4. Mag level I.8. 05/27/2019 Patient was seen and examined this morning, he does state at times it feels as though his breathing is improving, but this only last part of the day and then he again feels quite short of breath. He is complaining today of feeling extremely weak as well. Dr. Seals did have a discussion with the patient today regarding possible palliative care. He currently lives at home, they're also looking at possible placement for him.his blood pressure this morning 96/60 with a heart rate in the 100, 98% on 5 L of oxygen.White blood cell count 80.1, hemoglobin 7.8, platelet count 228, sodium 138, potassium 4.8, BUN 67 and creatinine 1.9. Magnesium level is 1.9 total bili 1.8 AST and ALT are normal, alk phos is 243.his repeat chest x-ray showed findings compatible with congestive heart failure, likely small associated effusions. 05/28/2019 Patient was seen and examined this morning and planing of abdominal pain, states that he feels extremely constipated. He continues to feel short of breath. He did have a bilateral ultrasound performed of the chest, plan is to proceed with thoracentesis by pulmonary today. Blood pressure 110/40, heart rate in the 80s, sodium 135, potassium 4.4, BUN 73 and creatinine 1.6, magnesium 1.8. Objective - Vital Signs Vital signs: Vital Signs Temp 97.6 F 05/28/19 03:43 Pulse 88 05/28/19 08:47 Resp 19 05/28/19 03:44 BP 109/48 05/28/19 05:27 Pulse Ox 100 05/28/19 03:43 Intake & Output 05/27/19 05/28/19 05/28/19 18:59 06:59 18:59 Intake Total 300 Output Total 900 Balance 300 -900 Weight 65.2 kg Intake: Intake, IV Titration 100 Amount Sodium Ferric Gluconat- 100 Sucrose 125 mg In Sodium Chloride 0.9% 100 ml @ 100 mls/hr IVPB DAILY [facility] Rx#:[id number] Oral 200 Output: Urine 900 Uretheral (Leggett) 500 Other: Voiding Method Indwelling Catheter Indwelling Catheter - Exam PHYSICAL EXAMINATION: GENERAL: 79-year-old gentleman in no acute distress at the time of my examination HEENT: Head is atraumatic, normocephalic. Pupils equal, round. Sclera anicteric. Conjunctiva are clear. Mucous membranes of the mouth are moist. Neck is supple. There is elevated jugular venous pressure. No carotid bruit is heard. HEART EXAMINATION: Heart S1-S2 irregularly irregular a grade 3/6 systolic murmur is heard at the apex CHEST EXAMINATION: Lungs reveal scattered rhonci THROUGHOUT with diminished air entry bilaterally ABDOMEN: Soft, positive generalized tenderness mild distention . EXTREMITIES: Diminished pulses bilaterally, 2+ bilateral pitting edema, amputation of the right toe. NEUROLOGIC patient is awake, alert and oriented 3 . . - Labs CBC & Chem 7: 05/27/19 06:30 05/28/19 06:45 Labs: Abnormal Lab Results - Last 24 Hours (Table) 05/27/19 05/27/19 05/27/19 Range/Units 11:40 16:49 20:05 Sodium (137-145) mmol/L BUN (9-20) mg/dL Creatinine (0.66-1.25) mg/dL POC Glucose (mg/dL) 201 H 168 H 148 H (75-99) mg/dL Calcium (8.4-10.2) mg/dL Total Bilirubin (0.2-1.3) mg/dL Alkaline Phosphatase (38-126) U/L Total Protein (6.3-8.2) g/dL Albumin (3.5-5.0) g/dL 05/28/19 05/28/19 Range/Units 06:05 06:45 Sodium 135 L (137-145) mmol/L BUN 73 H (9-20) mg/dL Creatinine 1.96 H (0.66-1.25) mg/dL POC Glucose (mg/dL) 128 H (75-99) mg/dL Calcium 6.6 L (8.4-10.2) mg/dL Total Bilirubin 1.6 H (0.2-1.3) mg/dL Alkaline Phosphatase 241 H (38-126) U/L Total Protein 5.3 L (6.3-8.2) g/dL Albumin 2.8 L (3.5-5.0) g/dL Assessment and Plan Plan: Assessment and plan #1 acute diastolic congestive heart failure, on chronic #2 chronic persistent atrial fibrillation, patient not a candidate for anticoagulation secondary to GI bleeding, he was scheduled as an outpatient to undergo implantation of a watchman device #3 severe pulmonary hypertension #4 known history of coronary artery disease with prior bypass surgery and prior angioplasty #5 PAD #6 hypertension Plan Patient had been initiated yesterday on IV Lasix drip, became quite hypotensive and somewhat unresponsive therefore the drip was discontinued. Ultrasound of the chest reveals significant bilateral pleural effusions and patient is scheduled today to undergo thoracentesis. Overall prognosis is guarded. DNP note has been reviewed, I agree with a documented findings and plan of care. Patient was seen and examined.
--- NOTE | 2019-05-28 11:19 | P.PN ---
Subjective Patient is seen in follow-up for acute kidney injury. Creatinine is stable at 1.96 today. He was started on Lasix drip yesterday but it had to be discontinued overnight due to hypotension. Patient complains of being short of breath. Blood pressure this morning was 109/48. Vital signs are stable. General: The patient appeared well nourished and normally developed. HEENT: Head exam is unremarkable. Neck is without jugular venous distension. LUNGS: Breath sounds decreased. HEART: Rate and Rhythm are regular. First and second heart sounds normal. No murmurs, rubs or gallops. ABDOMEN: Abdominal exam reveals normal bowel sounds. Non-tender and non- distended. No evidence of peritonitis. EXTREMITITES: 2+ edema. Objective - Vital Signs Vital signs: Vital Signs Temp 97.6 F 05/28/19 03:43 Pulse 88 05/28/19 08:47 Resp 19 05/28/19 03:44 BP 109/48 05/28/19 05:27 Pulse Ox 100 05/28/19 03:43 Intake & Output 05/27/19 05/28/19 05/28/19 18:59 06:59 18:59 Intake Total 300 60 Output Total 900 225 Balance 300 -900 -165 Weight 65.2 kg Intake: Intake, IV Titration 100 Amount Sodium Ferric Gluconat- 100 Sucrose 125 mg In Sodium Chloride 0.9% 100 ml @ 100 mls/hr IVPB DAILY [facility] Rx#:[id number] Oral 200 60 Output: Urine 900 225 Uretheral (Leggett) 500 Other: Voiding Method Indwelling Catheter Indwelling Catheter - Labs CBC & Chem 7: 05/27/19 06:30 05/28/19 06:45 Labs: Abnormal Lab Results - Last 24 Hours (Table) 05/27/19 05/27/19 05/27/19 Range/Units 11:40 16:49 20:05 Sodium (137-145) mmol/L BUN (9-20) mg/dL Creatinine (0.66-1.25) mg/dL POC Glucose (mg/dL) 201 H 168 H 148 H (75-99) mg/dL Calcium (8.4-10.2) mg/dL Total Bilirubin (0.2-1.3) mg/dL Alkaline Phosphatase (38-126) U/L Total Protein (6.3-8.2) g/dL Albumin (3.5-5.0) g/dL 05/28/19 05/28/19 Range/Units 06:05 06:45 Sodium 135 L (137-145) mmol/L BUN 73 H (9-20) mg/dL Creatinine 1.96 H (0.66-1.25) mg/dL POC Glucose (mg/dL) 128 H (75-99) mg/dL Calcium 6.6 L (8.4-10.2) mg/dL Total Bilirubin 1.6 H (0.2-1.3) mg/dL Alkaline Phosphatase 241 H (38-126) U/L Total Protein 5.3 L (6.3-8.2) g/dL Albumin 2.8 L (3.5-5.0) g/dL Assessment and Plan Plan: Assessment: 1. Acute kidney injury mostly prerenal secondary to cardiorenal syndrome. Creatinine stable at 1.96 today. Baseline creatinine near 1. 2. Urinary retention status post Leggett catheter placement. 3. Volume overload with bilateral pleural effusions. Potential thoracentesis today. 4. Acute hypoxic respiratory failure. 5. Right foot wound maintained on antibiotics. Infectious disease following. 6. Diastolic CHF with severe tricuspid regurgitation and pulmonary hyper tension. 7. Anemia. Iron deficiency noted. Plan: Resume Lasix drip at 10 mL an hour. Increase midodrine to 10 mg 3 times daily. IV iron 3 doses. Second dose today. Low-salt diet and fluid restriction. Continue to monitor renal function and urine output. Avoid nephrotoxins. Repeat electrolytes in the morning. Strict is and os.
[2019-05-28 11:34] LABS: Glucose,Whole Blood 137 mg/dL (75-99)
--- NOTE | 2019-05-28 12:15 | CDI ---
Documentation Clarification Form Date: 05/28/2019 12:07:56 PM From: Annette Orourke CCS, CCDS Admit Date: 05/24/2019 10:21:00 AM Patient Name: Jacques Burk Visit Number: [id number] Discharge Date: ATTENTION: The Clinical Documentation Specialists (CDI) and [facility] Coding Staff appreciate your assistance in clarifying documentation. Please respond to the clarification below the line at the bottom and electronically sign. The CDI & [facility] Coding staff will review the response and follow-up if needed. Please note: Queries are made part of the Legal Health Record. If you have any questions, please contact the author of this message via ITS. Dr. Brian Maddox: Per the 05/26 nephrology progress note: "Cr increased on 05/26 and nephrology consulted who feels likely related to cardio renal syndrome." History/Risk Factors: Hypertension, Diastolic CHF, Atrial Fibrillation, Myeloproliferative disease, CAD, PAD, Hyperlipidemia, GERD, [place], BPH & severe pulmonary hypertension. Clinical Indicators: Presented with Acute exacerbation of diastolic CHF. LAB: BUN 40 - 48 - 59 - 67 - 73; Creatinine: 0.85 - 1.14 - 1.47^, 1.97^, 1.96^; GFR: >90 - 71 - 52 - 36 - 37 Treatment: INH Albuterol, IV Solumedrol, IV Lasix, Heparin sq, IV Rocephin, O2 5Lnc. In order to capture the severity of condition, please clarify if the condition signifies: CKD Stage 1 (GFR > 90) CKD Stage 2 (GFR 60-89) CKD Stage 3 (GFR 30-59) CKD Stage 4 (GFR 15-29) CKD Stage 5 (GFR <15) Other, please specify Unable to determine (Last Revision: February 2018) MTDD
[2019-05-28] MEDS: HEPARIN SODIUM,PORCINE 5,000 UNIT/ML 1 ML VIAL SQ SCH ×3 (12:40→22:54)
[2019-05-28] MEDS: METOPROLOL TARTRATE 25 MG TAB PO SCH ×3 (12:40→22:53)
--- NOTE | 2019-05-28 12:46 | XR ---
EXAMINATION TYPE: XR chest 1V portable DATE OF EXAM: 05/28/2019 COMPARISON: Prior chest x-ray 05/27/2019 HISTORY: Status post thoracentesis TECHNIQUE: Single frontal view of the chest is obtained. FINDINGS: Interval improved aeration within the lungs. The prominent interstitium and hazy opacity o [place] the chest has improved. No evident pneumothorax. Vascular calcifications are noted. Patient is po st median sternotomy. Heart remains enlarged. IMPRESSION: No evident complication status post thoracentesis
[2019-05-28] MEDS: ALLOPURINOL 100 MG TAB PO SCH (13:14)
[2019-05-28] MEDS: ASPIRIN 81 MG PO SCH (13:14)
[2019-05-28] MEDS: SODIUM FERRIC GLUCONAT-SUCROSE 125 MG in SODIUM CHLORIDE 0.9% 100 ML IVPB SCH (13:15)
[2019-05-28] MEDS: DOXYCYCLINE 100 MG CAP PO SCH ×2 (13:15→21:02)
[2019-05-28] MEDS: CLOPIDOGREL 75 MG TAB PO SCH (13:15)
[2019-05-28 14:43] LABS: Appearance,BF Clear; Color,BF Yellow
[2019-05-28 14:44] LABS: Nucleated Cells, Body Fluid 140 /uL; RBC, Body Fluid 870 /uL
[2019-05-28 14:47] LABS: Mononuclear WBC,Body Fluid 33 %; Polynuclear WBC,Body Fluid 67 %; Total Cells Counted,Body Fluid 100
--- NOTE | 2019-05-28 15:13 | P.PN ---
Subjective Progress Note Date: 05/28/19 Principal diagnosis: Dyspnea, acute GI bleeding, bilateral pleural effusions, acute exacerbation of diastolic CHF This is 79-year-old patient of Dr. Franklin, who was recently hospitalized with a diagnosis of right lower extremity cellulitis, with secondary sepsis, possibility of thromboembolic disease with right lower extremity ischemia, patient underwent amputation of the right fourth toe and debridement of the right medial calf wound by vascular surgery. Wound cultures showed MRSA, and patient was discharged to [facility] on daptomycin and doxycycline. Patient has extensive medical history including history of myeloproliferative disorder, severe peripheral arterial disease, severe pulmonary hypertension, right-sided congestive heart failure, coronary artery disease, hypertension, hyperlipidemia, Atrial fibrillation not on anticoagulation related to history of GI bleeding, severe pulmonary hypertension, benign prostatic hypertrophy, remote history of chronic tobacco dependence. During previous admission patient also had bilateral interstitial infiltrates consistent with congestive heart failure. On 05/24/2019 patient was brought back to the hospital per EMS with complaints of shortness of breath, and increased swelling of his legs and arms, patient had occasional cough, no fevers, no complaints of chest pain. Admission chest x-ray showed findings consistent with congestive heart failure, vascular congestion, and pulmonary edema. Lab work on admission showed a white blood cell, 73.1, hemoglobin of 7.9, platelet count is 197, INR is 1.5, electrolytes were within normal limits, BUN of 40, creatinine is 0.85, proBNP was 23,003 100, troponin was 0.067. Urinalysis showed large amount of leuk trase, greater than 182 of white blood cells and red blood cells, many yeast and occasional bacteria. Patient has been afebrile since admission, he has been on supplemental oxygen, currently down to 3 L of oxygen and the pulse ox of 97%, patient is controlled A. fib on the monitor, with nonspecific ST and T-wave abnormality in the inferior and anterolateral leads with consideration of possible ischemia. Apparently at the correction patient was very weak, basically bedbound, and unable to participate with any therapy, he had increasing shortness of breath since discharge from the hospital with worsening swelling of his upper and lower extremities. Patient has developed bedsores notably one on his left heel. Patient was admitted for acute exacerbation of acute diastolic congestive heart failure, he was started on IV Lasix of 40 mg every 12 hours, he is completing a course of doxycycline, and IV Rocephin was added for urinary tract infection. 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 CT chest without contrast was completed on 05/27/2019 showing moderate basilar effusions and atelectasis. We're consulted in regards to bilateral pleural effusions. On 05/28/2019 patient seen in follow-up on selective care unit. Patient is quite short of breath, weak, he is on 4 L of oxygen and his pulse ox is 95%. Lung sounds are diminished at bilateral bases, with dullness to percussion related to bilateral pleural effusions, last night patient's Lasix drip had been put on hold related to hypotension, patient's systolic pressure was down to 70, this morning Lasix drip apparently is to be resumed however patient remains hypotensive with a blood pressure of 85/50. Ultrasound of the chest was completed showing right pleural effusion of 11 centimeter pockets and left pleural effusion of 8.2 cm, patient is not on any anticoagulation related to r emote history of GI bleeding, but he is chronic atrial fibrillation with a controlled rate on the monitor. We proceeded with the bilateral thoracentesis first with the right side in the proceeded with the left side, and there was 1900 mL of dark jeannie fluid removed from the right side and 900 mL of same color pleural effusion removed from the left side. Patient tolerated procedure well, was assisted back in bed, in follow-up chest x-ray showed no evident complication status post bilateral thoracentesis. This afternoon blood pressure has improved, 94/58, and patient's Lasix drip is being resumed per nephrology. No fever or chills. Objective - Vital Signs Vital signs: Vital Signs Temp 97.9 F 05/28/19 09:00 Pulse 82 05/28/19 14:40 Resp 18 05/28/19 14:40 BP 94/58 05/28/19 14:40 Pulse Ox 97 05/28/19 14:40 Intake & Output 05/27/19 05/28/19 05/28/19 18:59 06:59 18:59 Intake Total 300 80 Output Total 900 225 Balance 300 -900 -145 Weight 65.2 kg 65.2 kg Intake: Intake, IV Titration 100 Amount Sodium Ferric Gluconat- 100 Sucrose 125 mg In Sodium Chloride 0.9% 100 ml @ 100 mls/hr IVPB DAILY [facility] Rx#:[id number] Oral 200 80 Output: Urine 900 225 Uretheral (Leggett) 500 0 Other: Voiding Method Indwelling Catheter Indwelling Catheter Indwelling Catheter - Exam GENERAL EXAM: Alert, pleasant, 79-year-old white male on 4 L of oxygen and the pulse ox of 97% comfortable in no apparent distress. HEAD: Normocephalic/atraumatic. EYES: Normal reaction of pupils, equal size. Conjunctiva pink, sclera white. NOSE: Clear with pink turbinates. THROAT: No erythema or exudates. NECK: No masses, no JVD, no thyroid enlargement, no adenopathy. CHEST: No chest wall deformity. Symmetrical expansion. LUNGS: Equal air entry with diminished breath sounds at bilateral bases and scattered rhonchi throughout CVS: Regular rate and rhythm, normal S1 and S2, no gallops, no murmurs, no rubs ABDOMEN: Soft, nontender. No hepatosplenomegaly, normal bowel sounds, no guarding or rigidity. EXTREMITIES: No clubbing, 2+ bilateral lower extremity pitting edema, no cyanosis, 2+ pulses and upper and lower extremities. Right fourth toe amputated site, right mid leg wound with concern for possible cellulitis, local wound care with dressing, Aquasol silver dressing to the foot and may need to the right leg wound area. Left heel deep tissue injury MUSCULOSKELETAL: Muscle strength and tone normal. SPINE: No scoliosis or deformity SKIN: No rashes CENTRAL NERVOUS SYSTEM: Alert and oriented -3. No focal deficits, tone is normal in all 4 extremities. PSYCHIATRIC: Alert and oriented -3. Appropriate affect. Intact judgment and insight. - Labs CBC & Chem 7: 05/27/19 06:30 05/28/19 06:45 Labs: Abnormal Lab Results - Last 24 Hours (Table) 05/27/19 05/27/19 05/28/19 Range/Units 16:49 20:05 06:05 Sodium (137-145) mmol/L BUN (9-20) mg/dL Creatinine (0.66-1.25) mg/dL POC Glucose (mg/dL) 168 H 148 H 128 H (75-99) mg/dL Calcium (8.4-10.2) mg/dL Total Bilirubin (0.2-1.3) mg/dL Alkaline Phosphatase (38-126) U/L Total Protein (6.3-8.2) g/dL Albumin (3.5-5.0) g/dL 05/28/19 05/28/19 Range/Units 06:45 11:33 Sodium 135 L (137-145) mmol/L BUN 73 H (9-20) mg/dL Creatinine 1.96 H (0.66-1.25) mg/dL POC Glucose (mg/dL) 137 H (75-99) mg/dL Calcium 6.6 L (8.4-10.2) mg/dL Total Bilirubin 1.6 H (0.2-1.3) mg/dL Alkaline Phosphatase 241 H (38-126) U/L Total Protein 5.3 L (6.3-8.2) g/dL Albumin 2.8 L (3.5-5.0) g/dL Assessment and Plan Plan: Assessment: #1. Acute exacerbation of chronic congestive heart failure with diastolic dysfunction #2. Bilateral pleural effusions, right greater than left, status post bilateral thoracentesis today on 05/28/2019 would removal of 1900 mL of dark jeannie fluid from the right and 900 mL of dark jeannie fluid from the left side with follow-up chest x-ray wean no evidence of pneumothorax #3. Right lower extremity cellulitis #4. Acute kidney injury #5. Acute urinary tract infection #6. Urinary retention status post Leggett catheter placement #7. Anemia #8. Recent admission for right lower leg cellulitis, ischemia involving the right lower extremity, that is post right fourth toe amputation #9. MRSA infection in the right leg wound #10. Known history of moderately severe mitral regurgitation, severe pulmonary hypertension #11. Persistent atrial fibrillation, not a candidate for anticoagulation related to episodes of GI bleeding #12. Severe peripheral arterial vascular disease Plan: Patient tolerated thoracentesis very well, will wean FiO2, encouraged to deep breathe and cough, his Lasix drip is being resumed per nephrology, continue with daily labs, electrolytes and renal profile. He had a lengthy conversation with the patient's and his niece regarding CODE STATUS, and the decision maker is his daughter who is currently in [place] and is expected to be here in the hospital this afternoon. Patient has multiple comorbidities, very poor baseline functional status, and has had multiple hospitalizations over the course of several months related to infections, complications related to his severe peripheral arterial disease, congestive heart failure, GI bleeding. Apparently the patient had told his family that he was dying. The family will discuss melania mcmanus themselves in regards to his CODE STATUS, overall prognosis is poor due to the above mentioned reasons I performed a history & physical examination of the patient and discussed their management with my nurse practitioner, Crystal Hanna. I reviewed the nurse practitioner's note and agree with the documented findings and plan of care. Lung sounds are positive for diminished breath sounds. The findings and the impression was discussed with the patient. I attest to the documentation by the nurse practitioner. Time with Patient: Less than 30
[2019-05-28] MEDS: FUROSEMIDE 100 MG in SODIUM CHLORIDE 0.9% 90 ML IV SCH ×2 (15:34→19:43)
[2019-05-28 16:49] LABS: Glucose,Whole Blood 146 mg/dL (75-99)
--- NOTE | 2019-05-28 18:45 | P.PN ---
Subjective Progress Note Date: 05/28/19 (dealyed charting patient seen at 1130) Principal diagnosis: shortness of breath Patient is a 79-year-old male well known to our service with multiple recent admissions. He has past medical history of diastolic congestive heart failure, 8 atrial fibrillation (rate is likely on Xarelto for anticoagulation but has a history of recurrent bleeding and this is currently discontinued), myeloproliferative disease, coronary artery disease, peripheral arterial disease, dyslipidemia, and hypertension who was sent into the emergency department from his rehab due to worsening shortness of breath. Patient was admitted 618 for acute exacerbation of CHF and was discharged on 624. He was subsequently admitted again on 05/03/19 with right foot cellulitis versus ischemia. 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 At that point in time he has noted to have sepsis from right lower extremity cellulitis for which she received daptomycin was transitioned to oral doxycycline on discharge. Patient was discharged to rehab facility on 05/19 area did patient has been unable to fully participate in rehab secondary to his severe functional debility. He has been essentially bedbound and his developed bedsores most noticeably on his left heel. In the ER he underwent an extensive evaluation. His chest x-ray showed pulmonary edema, EKG showed A. fib rate con trolled, white blood cell count elevated at 73.1, B and P 23,000, elevated troponin at 0.076 felt to be secondary to congestive heart failure. He was started on IV diuresis and was admitted for acute exacerbation of diastolic congestive heart failure. He was also noted to have a left heel eschar. Vascular surgery and infectious disease have been consulted no need for surgical intervention and off loading recommended along with local wound care. Seen by cardio who agrees with need for continued diuresis. Cr increased on 05/26 and nephro consulted who feels likely related to cardio renal syndrome and lasix increased. Check x-ray on 05/27 revealed R>L pleural effusion. Overnight on 05/23 for his blood pressure dropped and Lasix drip was held. On 05/28 he had removal of 3 L of fluid. Bilateral thoracentesis. Midodrine was increased. Patient seen and examined at bedside. Still feeling tired. No chest pain at this time. Still feeling short of breath. Having very low energy. Willing to talk about CODE STATUS. Objective - Vital Signs Vital signs: Vital Signs Temp 97.9 F 05/28/19 09:00 Pulse 95 05/28/19 17:13 Resp 18 05/28/19 17:13 BP 100/53 05/28/19 17:13 Pulse Ox 97 05/28/19 14:40 Intake & Output 05/27/19 05/28/19 05/28/19 18:59 06:59 18:59 Intake Total 300 250 Output Total 900 225 Balance 300 -900 25 Weight 65.2 kg 65.2 kg Intake: Intake, IV Titration 100 170 Amount Furosemide 100 mg In 20 Sodium Chloride 0.9% 90 ml @ 5 MG/HR 5 mls/hr IV .Q20H [facility] Rx#:[id number] Sodium Ferric Gluconat- 100 100 Sucrose 125 mg In Sodium Chloride 0.9% 100 ml @ 100 mls/hr IVPB DAILY [facility] Rx#:[id number] cefTRIAXone 1 gm In 50 Sodium Chloride 0.9% 50 ml @ 100 mls/hr IVPB Q24HR [facility] Rx#:[id number] Oral 200 80 Output: Urine 900 225 Uretheral ([facility]) 500 0 Other: Voiding Method Indwelling Catheter Indwelling Catheter Indwelling Catheter - Exam General: Ill appearing, gaunt, temporal wasting no distress, appears at stated age Derm: Left heel with dressing in place, warm, dry Head: atraumatic, normocephalic, symmetric Eyes: EOMI, no lid lag, anicteric sclera Mouth: no lip lesion, mucus membranes moist Cardiovascular: S1S2 irreg , no murmur, positive posterior tibial pulse bilateral, Lungs: decreased bs bilateral , no accessory muscle use Abdominal: soft, nontender to palpation, no guarding, no appreciable organomegaly Ext: no gross muscle atrophy, 3+ edema, no contractures Neuro: CN II-XI grossly intact, no focal neuro deficits Psych: Alert, oriented, appropriate affect - Labs CBC & Chem 7: 05/27/19 06:30 05/28/19 06:45 Labs: Abnormal Lab Results - Last 24 Hours (Table) 05/27/19 05/28/19 05/28/19 Range/Units 20:05 06:05 06:45 Sodium 135 L (137-145) mmol/L BUN 73 H (9-20) mg/dL Creatinine 1.96 H (0.66-1.25) mg/dL POC Glucose (mg/dL) 148 H 128 H (75-99) mg/dL Calcium 6.6 L (8.4-10.2) mg/dL Total Bilirubin 1.6 H (0.2-1.3) mg/dL Alkaline Phosphatase 241 H (38-126) U/L Total Protein 5.3 L (6.3-8.2) g/dL Albumin 2.8 L (3.5-5.0) g/dL 05/28/19 05/28/19 Range/Units 11:33 16:48 Sodium (137-145) mmol/L BUN (9-20) mg/dL Creatinine (0.66-1.25) mg/dL POC Glucose (mg/dL) 137 H 146 H (75-99) mg/dL Calcium (8.4-10.2) mg/dL Total Bilirubin (0.2-1.3) mg/dL Alkaline Phosphatase (38-126) U/L Total Protein (6.3-8.2) g/dL Albumin (3.5-5.0) g/dL Microbiology - Last 24 Hours (Table) 05/28/19 12:00 Body Fluid Culture - Preliminary Pleural Fluid Assessment and Plan Assessment: Acute Cor pulmonale/CHF -Hope to restart lasix gtt today if BP stable -strict I and O, daily weights -Fluid restriction -Cardiology recs apprecaited -Tele -Monitor electrolytes and replace accordingly - not on ACEI due to chronic hypotension requiring midodrine bilateral pleural effusion - s/p thoracentesis - pulm recs appreciated - IV diuresis - due to CHF Atrial fibrillation, permanent with rapid ventricular response -Hold metoprolol today with decreased BP, parameters added -Not on anticoagulation due to hx of GIB -Aspirin -follow tele HIREN - nephro recs: Lasix drip - strict I and O - avoid additional nephrotoxic agents - follow BMP Urinary tract infection status post urinary retention -Rocephin -Await urine culture -Did have some budding yeast the on urinalysis continue to follow - sigala in place Troponin elevation, likely secondary to CHF exacerbation -down trending -Cardiology recs -Cardiac monitoring - ASA 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, newly discovered - Will not limit carbohydrate intake due to severe malnutrition -Consult certified adapted physical educator -Sliding-scale insulin -hemoglobin A1c pending L heel ulcer, possible dry gangrene -Vascular suregy recs appreciated: off load, turn q 2 hours, poor overall prognosis R foot cellulitis -Doxycycline to complete course -ID recs appreciated Myeloproiferative disorder with Leukocytosis and normocytic anemia -Follow WBC -WBC count typically 30-40k -Elevated likely secondary to acute illness -Monitor for now -Iron, B 12 , and folate all in acceptable range Moderate Protein calorie malnutrition, Hypoalbuminemia -Skate Shop Attendant recs - supplement Elevated Total Bilirubin, possibly due to acute stressors -Monitor for now Chronic conditions: CAD, HTN, HLD continue home medications DVT prophylaxis -Heparin Discussed with: Patient Anticipated discharge date: 3-[address]: Rehab Facility A total of 35 minutes was spent on the care of this complex patient more than 50% of the time was spent in counseling and care coordination.
[2019-05-28 19:03] LABS: Total Protein, Body Fluid 1104 mg/dL
[2019-05-28] MEDS: ATORVASTATIN 40 MG TAB PO SCH (19:42)
[2019-05-28 20:42] LABS: Glucose,Whole Blood 164 mg/dL (75-99)
--- NOTE | 2019-05-28 21:04 | PN ---
PROGRESS NOTE DATE OF SERVICE: 05/28/2019. REASON FOR FOLLOWUP: Right 4th toe and right leg wound. INTERVAL HISTORY: The patient is currently afebrile, has been with some shortness of breath. He did have some cough, bringing up green sputum. No nausea. No vomiting. No abdominal pain. Pain to the right leg area. PHYSICAL EXAMINATION: Blood pressure 100/53 with a pulse of 95, temperature 98. He is 97% on 4 L nasal cannula. General description is an elderly male lying in bed in no distress. Respiratory system: Unlabored breathing with decreased breath sounds in the bases. No wheeze. Heart S1, S2. Regular rate and rhythm. Abdomen soft, no tenderness. Right fourth toe wound, wound base with minimal necrotic tissue. No cellulitis. Right medial leg wound is currently dressed up. No obvious drainage on the dressing. LABS: BUN of 73, creatinine 1.96. DIAGNOSTIC IMPRESSION AND PLAN: Patient with right fourth toe and right leg wound. Patient currently to continue with local wound care as ordered. Currently on oral Doxycycline. Continue to monitor clinical course closely. Continue supportive care. MMODL / IJN: [id number] /
--- NOTE | 2019-05-29 00:47 | PCN ---
PROCEDURE NOTE PROCEDURE PERFORMED: Thoracentesis. PREOP DIAGNOSIS: Right side pleural effusion. POSTOP DIAGNOSIS: Right side pleural effusion. Total amount of fluid removed was 1.8 L. No bedside complications or bleeding. A time-out was completed verifying correct patient, procedure, site, positioning , and implant (s) or special equipment if applicable. Ultrasound guidance was/was not used and appropriate fluid pocket was identified and marked. Patient was positioned, prepped and draped in usual sterile fashion. Lidocaine was used to anesthetize the area. A Thoracentesis catheter was introduced into the pleural space and fluid was removed. Blood loss was none. A chest x-ray was ordered to evaluate for pneumothorax. Total Fluid Removed 1.8 L Color of Fluid: Dark turbid yellowish Fluid was sent for appropriate laboratory tests. Patient tolerated the procedure well and there were no complications. MMODL / IJN: [id number] /
--- NOTE | 2019-05-29 00:50 | PCN ---
PROCEDURE NOTE Indication Left side pleural effusion. A time-out was completed verifying correct patient, procedure, site, positioning , and implant (s) or special equipment if applicable. Ultrasound guidance was/was not used and appropriate fluid pocket was identified and marked. Patient was positioned, prepped and draped in usual sterile fashion. Lidocaine was used to anesthetize the area. A Thoracentesis catheter was introduced into the pleural space and fluid was removed. Blood loss was none. A chest x-ray was ordered to evaluate for pneumothorax. Total Fluid Removed: 1.4 L Color of Fluid: Dark turbid yellowish Fluid was/was not sent for appropriate laboratory tests. Patient tolerated the procedure well and there were no complications. MMODL / IJN: [id number] /
[2019-05-29 06:10] LABS: Glucose,Whole Blood 140 mg/dL (75-99)
[2019-05-29] MEDS: INSULIN ASPART (NovoLOG) 100 UNIT/ML VIAL SQ SCH ×2 (06:23→18:45)
[2019-05-29] MEDS: MIDODRINE 5 MG TAB PO SCH ×3 (06:47→17:55)
[2019-05-29] MEDS: PANTOPRAZOLE 40 MG TABLET PO SCH (06:47)
[2019-05-29] MEDS: HYDROcodone/APAP 10-325MG 1 EACH TAB PO PRN (07:40)
[2019-05-29] MEDS: IPRATROPIUM-ALBUTEROL 3 ML NEB INHALATION SCH ×4 (07:45→20:34)
[2019-05-29 08:14] LABS: Anisocytosis Slight; Hypochromasia Moderate; Poikilocytosis Slight
[2019-05-29 08:24] LABS: HCT 28.1 % (39.0-53.0); HGB 8.3 gm/dL (13.0-17.5); MCV 95.5 fL (80.0-100.0); RBC 2.94 m/uL (4.30-5.90)
[2019-05-29 08:25] LABS: MCH 28.1 pg (25.0-35.0); MCHC 29.5 g/dL (31.0-37.0); Microcytosis Slight; Platelet Count 174 k/uL (150-450); RDW 28.8 % (11.5-15.5)
[2019-05-29 08:26] LABS: Macrocytosis Slight
[2019-05-29 08:27] LABS: Calcium 6.7 mg/dL (8.4-10.2); Magnesium 1.8 mg/dL (1.6-2.3)
[2019-05-29 08:36] LABS: Potassium 4.8 mmol/L (3.5-5.1)
[2019-05-29] MEDS: METOPROLOL TARTRATE 25 MG TAB PO SCH ×3 (09:20→20:12)
[2019-05-29] MEDS: ASPIRIN 81 MG PO SCH (09:21)
[2019-05-29] MEDS: DOXYCYCLINE 100 MG CAP PO SCH ×2 (09:21→20:12)
[2019-05-29] MEDS: ALLOPURINOL 100 MG TAB PO SCH (09:21)
[2019-05-29] MEDS: CLOPIDOGREL 75 MG TAB PO SCH (09:21)
[2019-05-29] MEDS: HEPARIN SODIUM,PORCINE 5,000 UNIT/ML 1 ML VIAL SQ SCH ×3 (09:21→21:08)
[2019-05-29] MEDS: MORPHINE SULFATE 4 MG/ML SYRINGE IVP PRN ×2 (09:42→20:10)
--- NOTE | 2019-05-29 09:49 | P.PN ---
Subjective Patient is seen in follow-up for acute kidney injury. Renal function is improved. Creatinine 1.69 today. Lasix drip was attempted twice but had to be discontinued due to hypotension. He is on midodrine. Patient underwent thoracentesis on May 28 with 1.8 L drained from the right side and 1.4 L drained from the left side. Vital signs are stable. General: The patient appeared well nourished and normally developed. HEENT: Head exam is unremarkable. Neck is without jugular venous distension. LUNGS: Breath sounds decreased. HEART: Rate and Rhythm are regular. First and second heart sounds normal. No murmurs, rubs or gallops. ABDOMEN: Abdominal exam reveals normal bowel sounds. Non-tender and non- distended. No evidence of peritonitis. EXTREMITITES: 2+ edema. Objective - Vital Signs Vital signs: Vital Signs Temp 98.5 F 05/29/19 03:10 Pulse 88 05/29/19 07:55 Resp 18 05/29/19 03:10 BP 91/56 05/29/19 03:10 Pulse Ox 98 05/29/19 03:10 Intake & Output 05/28/19 05/29/19 05/29/19 18:59 06:59 18:59 Intake Total 368 20.75 Output Total 525 Balance -157 20.75 Weight 65.2 kg 65.2 kg Intake: Intake, IV Titration 170 20.75 Amount Furosemide 100 mg In 20 20.75 Sodium Chloride 0.9% 90 ml @ 5 MG/HR 5 mls/hr IV .Q20H [facility] Rx#:[id number] Sodium Ferric Gluconat- 100 Sucrose 125 mg In Sodium Chloride 0.9% 100 ml @ 100 mls/hr IVPB DAILY [facility] Rx#:[id number] cefTRIAXone 1 gm In 50 Sodium Chloride 0.9% 50 ml @ 100 mls/hr IVPB Q24HR [facility] Rx#:[id number] Oral 198 Output: Urine 525 Uretheral ([facility]gett) 0 Other: Voiding Method Indwelling Catheter Indwelling Catheter # Bowel Movements 1 - Labs CBC & Chem 7: 05/29/19 06:52 05/29/19 06:52 Labs: Abnormal Lab Results - Last 24 Hours (Table) 05/28/19 05/28/19 05/28/19 Range/Units 11:33 16:48 20:41 WBC (3.8-10.6) k/uL RBC (4.30-5.90) m/uL Hgb (13.0-17.5) gm/dL Hct (39.0-53.0) % MCHC (31.0-37.0) g/dL RDW (11.5-15.5) % Carbon Dioxide (22-30) mmol/L BUN (9-20) mg/dL Creatinine (0.66-1.25) mg/dL POC Glucose (mg/dL) 137 H 146 H 164 H (75-99) mg/dL Calcium (8.4-10.2) mg/dL 05/29/19 05/29/19 05/29/19 Range/Units 06:09 06:52 06:52 WBC 55.0 H* (3.8-10.6) k/uL RBC 2.94 L (4.30-5.90) m/uL Hgb 8.3 L (13.0-17.5) gm/dL Hct 28.1 L (39.0-53.0) % MCHC 29.5 L (31.0-37.0) g/dL RDW 28.8 H (11.5-15.5) % Carbon Dioxide 19 L (22-30) mmol/L BUN 74 H (9-20) mg/dL Creatinine 1.69 H (0.66-1.25) mg/dL POC Glucose (mg/dL) 140 H (75-99) mg/dL Calcium 6.7 L (8.4-10.2) mg/dL Microbiology - Last 24 Hours (Table) 05/28/19 12:00 Gram Stain - Preliminary Pleural Fluid Body Fluid Culture - Preliminary Assessment and Plan Plan: Assessment: 1. Acute kidney injury mostly prerenal secondary to cardiorenal syndrome. Renal function better. Creatinine 1.69 today. Baseline creatinine near 1. 2. Urinary retention status post Leggett catheter placement. 3. Volume overload with bilateral pleural effusions. Status post bilateral thoracentesis with total 3.2 L removed. 4. Acute hypoxic respiratory failure. 5. Right foot wound maintained on antibiotics. Infectious disease following. 6. Diastolic CHF with severe tricuspid regurgitation and pulmonary hypertension. 7. Anemia. Iron deficiency noted. Plan: Start Lasix 40 mg IV twice daily. Maintain midodrine 10 mg 3 times daily. IV iron 3 doses. Third dose today. Low-salt diet and fluid restriction. Continue to monitor renal function and urine output. Avoid nephrotoxins. Repeat electrolytes in the morning. Strict is and os.
[2019-05-29 11:51] LABS: Glucose,Whole Blood 161 mg/dL (75-99)
[2019-05-29] MEDS: SODIUM FERRIC GLUCONAT-SUCROSE 125 MG in SODIUM CHLORIDE 0.9% 100 ML IVPB SCH (12:23)
--- NOTE | 2019-05-29 14:40 | P.PN ---
Subjective Progress Note Date: 05/29/19 Principal diagnosis: shortness of breath Patient is a 79-year-old male well known to our service with multiple recent admissions. He has past medical history of diastolic congestive heart failure, 8 atrial fibrillation (rate is likely on Xarelto for anticoagulation but has a history of recurrent bleeding and this is currently discontinued), myeloproliferative disease, coronary artery disease, peripheral arterial disease, dyslipidemia, and hypertension who was sent into the emergency department from his rehab due to worsening shortness of breath. Patient was admitted 618 for acute exacerbation of CHF and was discharged on 624. He was subsequently admitted again on 05/03/19 with right foot cellulitis versus ischemia. 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 At that point in time he has noted to have sepsis from right lower extremity cellulitis for which she received daptomycin was transitioned to oral doxycycline on discharge. Patient was discharged to rehab facility on 05/19 where the patient has been unable to fully participate in rehab secondary to his severe functional debility. He has been essentially bed bound and his developed bedsores most noticeably on his left heel. In the ER he underwent an extensive evaluation. His chest x-ray showed pulmonary edema, EKG showed A. fib rate controlled, white blood cell count elevated at 73.1, B and P 23,000, elevated troponin at 0.076 felt to be secondary to congestive heart failure. He was started on IV diuresis and was admitted for acute exacerbation of diastolic congestive heart failure. He was also noted to have a left heel eschar. Vascular surgery and infectious disease have been consulted no need for surgical intervention and off loading recommended along with local wound care. Seen by cardio who agrees with need for continued diuresis. Cr increased on 05/26 and n ephro consulted who feels likely related to cardio renal syndrome and lasix increased. Check x-ray on 05/27 revealed R>L pleural effusion. Pulmonary was consulted. Overnight on 05/27 his blood pressure dropped and Lasix drip was held. On 05/28 he had removal of 3 L of fluid with Bilateral thoracentesis. Midodrine was increased. He was continued on the lasix gtt and continued to have low blood pressures. his lasix gtt was transitioned to IVP lasix. Patient seen and examined at bedside. C/O pain in right foot that in severely increased from yesterday, Feeling tired, beathing better today, no nausea, no diarrhea. Objective - Vital Signs Vital signs: Vital Signs Temp 98.1 F 05/29/19 12:00 Pulse 86 05/29/19 12:00 Resp 22 05/29/19 12:00 BP 86/45 05/29/19 12:00 Pulse Ox 98 05/29/19 03:10 Intake & Output 05/28/19 05/29/19 05/29/19 18:59 06:59 18:59 Intake Total 368 20.75 80 Output Total 525 675 Balance -157 20.75 -595 Weight 65.2 kg 65.2 kg Intake: Intake, IV Titration 170 20.75 Amount Furosemide 100 mg In 20 20.75 Sodium Chloride 0.9% 90 ml @ 5 MG/HR 5 mls/hr IV .Q20H JOSE Rx#:[id number] Sodium Ferric Gluconat- 100 Sucrose 125 mg In Sodium Chloride 0.9% 100 ml @ 100 mls/hr IVPB DAILY JOSE Rx#:[id number] cefTRIAXone 1 gm In 50 Sodium Chloride 0.9% 50 ml @ 100 mls/hr IVPB Q24HR JOSE Rx#:[id number] Oral 198 80 Output: Urine 525 675 Uretheral (Sigala) 0 Other: Voiding Method Indwelling Catheter Indwelling Catheter Indwelling Catheter # Bowel Movements 1 - Exam General: Ill appearing, gaunt, temporal wasting no distress, appears at stated age Derm: Right foot warm and dry, healing over right fore, foot with sutures in place. dopplerable PT pulse, Left heel with dressing in place, warm, dry Head: atraumatic, normocephalic, symmetric Eyes: EOMI, no lid lag, anicteric sclera Mouth: no lip lesion, mucus membranes moist Cardiovascular: S1S2 irreg , no murmur, no JVD Lungs: decreased bs bilateral, faint ronchi , no accessory muscle use Abdominal: soft, nontender to palpation, no guarding, no appreciable organomegaly Ext: no gross muscle atrophy, 3+ edema, no contractures Neuro: CN II-XI grossly intact, no focal neuro deficits Psych: Alert, oriented, appropriate affect - Labs CBC & Chem 7: 05/29/19 06:52 05/29/19 06:52 Labs: Abnormal Lab Results - Last 24 Hours (Table) 05/28/19 05/28/19 05/29/19 Range/Units 16:48 20:41 06:09 WBC (3.8-10.6) k/uL RBC (4.30-5.90) m/uL Hgb (13.0-17.5) gm/dL Hct (39.0-53.0) % MCHC (31.0-37.0) g/dL RDW (11.5-15.5) % Carbon Dioxide (22-30) mmol/L BUN (9-20) mg/dL Creatinine (0.66-1.25) mg/dL POC Glucose (mg/dL) 146 H 164 H 140 H (75-99) mg/dL Calcium (8.4-10.2) mg/dL 05/29/19 05/29/19 05/29/19 Range/Units 06:52 06:52 11:49 WBC 55.0 H* (3.8-10.6) k/uL RBC 2.94 L (4.30-5.90) m/uL Hgb 8.3 L (13.0-17.5) gm/dL Hct 28.1 L (39.0-53.0) % MCHC 29.5 L (31.0-37.0) g/dL RDW 28.8 H (11.5-15.5) % Carbon Dioxide 19 L (22-30) mmol/L BUN 74 H (9-20) mg/dL Creatinine 1.69 H (0.66-1.25) mg/dL POC Glucose (mg/dL) 161 H (75-99) mg/dL Calcium 6.7 L (8.4-10.2) mg/dL Microbiology - Last 24 Hours (Table) 05/29/19 04:18 Urine Culture - Preliminary Urine,Catheterized 05/28/19 12:00 Gram Stain - Preliminary Pleural Fluid Body Fluid Culture - Preliminary Assessment and Plan Assessment: Acute Cor pulmonale/CHF -Laisx IVP BID -strict I and O, daily weights -Fluid restriction -Cardiology recs apprecaited -Tele -Monitor electrolytes and replace accordingly - not on ACEI due to chronic hypotension requiring midodrine bilateral pleural effusion - s/p thoracentesis - pulm recs appreciated - IV diuresis - due to CHF Atrial fibrillation, permanent -Metoprolol as able with BP -Not on anticoagulation due to hx of GIB -Aspirin -follow tele HIREN - nephro recs: lasix IVP - strict I and O - avoid additional nephrotoxic agents - follow BMP Urinary tract infection status post urinary retention -Rocephin -Await urine culture -Did have some budding yeast the on urinalysis continue to follow - sigala in place Troponin elevation, likely secondary to CHF exacerbation -down trending -Cardiology recs -Cardiac monitoring - ASA 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, newly discovered - Will not limit carbohydrate intake due to severe malnutrition -Consult information and referral director -Sliding-scale insulin L heel ulcer, possible dry gangrene -Vascular suregy recs appreciated: off load, turn q 2 hours, poor overall prognosis R foot cellulitis -Doxycycline to complete course -ID recs appreciated - vascular recs Myeloproiferative disorder with Leukocytosis and normocytic anemia -Follow WBC -WBC count typically 30-40k -Elevated likely secondary to acute illness -Monitor for now -Iron, B 12 , and folate all in acceptable range Moderate Protein calorie malnutrition, Hypoalbuminemia -Engine Research Engineer recs - supplement Elevated Total Bilirubin, possibly due to acute stressors -Monitor for now Chronic conditions: CAD, HTN, HLD continue home medications RVR due to A fib: resolved Discussed with: Patient Anticipated discharge date: 3-[address]: Rehab Facility A total of 35 minutes was spent on the care of this complex patient more than 50% of the time was spent in counseling and care coordination. Time in Room on initial: Spoke with family at length again regarding prognosis, lack of improvement, cont inued medical decline, and need need for long discussion about code status, limitation of treatment, and when to seek hospice care. , daughter, and son-in-law all present. All questions answered. Patient, , and daughter will complete 5 wishes book and continue to discuss when they would like care. Time in: 11:10-11:36 Total time: 45 minutes
--- NOTE | 2019-05-29 15:46 | P.PN ---
Subjective Progress Note Date: 05/29/19 Principal diagnosis: Dyspnea, acute GI bleeding, bilateral pleural effusions, acute exacerbation of diastolic CHF This is 79-year-old patient of Dr. Franklin, who was recently hospitalized with a diagnosis of right lower extremity cellulitis, with secondary sepsis, possibility of thromboembolic disease with right lower extremity ischemia, patient underwent amputation of the right fourth toe and debridement of the right medial calf wound by vascular surgery. Wound cultures showed MRSA, and patient was discharged to [facility] on daptomycin and doxycycline. Patient has extensive medical history including history of myeloproliferative disorder, severe peripheral arterial disease, severe pulmonary hypertension, right-sided congestive heart failure, coronary artery disease, hypertension, hyperlipidemia, Atrial fibrillation not on anticoagulation related to history of GI bleeding, severe pulmonary hypertension, benign prostatic hypertrophy, remote history of chronic tobacco dependence. During previous admission patient also had bilateral interstitial infiltrates consistent with congestive heart failure. On 05/24/2019 patient was brought back to the hospital per EMS with complaints of shortness of breath, and increased swelling of his legs and arms, patient had occasional cough, no fevers, no complaints of chest pain. Admission chest x-ray showed findings consistent with congestive heart failure, vascular congestion, and pulmonary edema. Lab work on admission showed a white blood cell, 73.1, hemoglobin of 7.9, platelet count is 197, INR is 1.5, electrolytes were within normal limits, BUN of 40, creatinine is 0.85, proBNP was 23,003 100, troponin was 0.067. Urinalysis showed large amount of leuk trase, greater than 182 of white blood cells and red blood cells, many yeast and occasional bacteria. Patient has been afebrile since admission, he has been on supplemental oxygen, currently down to 3 L of oxygen and the pulse ox of 97%, patient is controlled A. fib on the monitor, with nonspecific ST and T-wave abnormality in the inferior and anterolateral leads with consideration of possible ischemia. Apparently at the [facility] patient was very weak, basically bedbound, and unable to participate with any therapy, he had increasing shortness of breath since discharge from the hospital with worsening swelling of his upper and lower extremities. Patient has developed bedsores notably one on his left heel. Patient was admitted for acute exacerbation of acute diastolic congestive heart failure, he was started on IV Lasix of 40 mg every 12 hours, he is completing a course of doxycycline, and IV Rocephin was added for urinary tract infection. Follow-up chest x-ray showed increased interstitium, and blunting of the costophrenic angles, speech assistant with small pleural effusions. CT chest without contrast was completed on 05/27/2019 showing moderate basilar effusions and atelectasis. We're consulted in regards to bilateral pleural effusions. On 05/28/2019 patient seen in follow-up on selective care unit. Patient is quite short of breath, weak, he is on 4 L of oxygen and his pulse ox is 95%. Lung sounds are diminished at bilateral bases, with dullness to percussion related to bilateral pleural effusions, last night patient's Lasix drip had been put on hold related to hypotension, patient's systolic pressure was down to 70, this morning Lasix drip apparently is to be resumed however patient remains hypotensive with a blood pressure of 85/50. Ultrasound of the chest was completed showing right pleural effusion of 11 centimeter pockets and left pleural effusion of 8.2 cm, patient is not on any anticoagulation related to r emote history of GI bleeding, but he is chronic atrial fibrillation with a controlled rate on the monitor. We proceeded with the bilateral thoracentesis first with the right side in the proceeded with the left side, and there was 1900 mL of dark jeannie fluid removed from the right side and 900 mL of same color pleural effusion removed from the left side. Patient tolerated procedure well, was assisted back in bed, in follow-up chest x-ray showed no evident complication status post bilateral thoracentesis. This afternoon blood pressure has improved, 94/58, and patient's Lasix drip is being resumed per nephrology. No fever or chills. On 05/29/2019 patient is seen in follow-up on selective care unit, he is quite lethargic, his mentation is waxing and waning, he is quite hypotensive, with the blood pressure 80s over 40s. He denies any distress, but he is moderately short of breath. Patient's Lasix drip had to be discontinued, he continues on antibiotic coverage, yesterday he underwent bilateral thoracentesis would removal of large amount of pleural fluid, pleural fluid analysis showed exudative pleural fluid. Cultures are pending and cytologies pending. However in the last 24 hours patient's clinical status significantly deteriorated, and has been intermittently hypotensive, he is more lethargic, quite weak. Patient's family is at the bedside, and apparently the patient became more lucid this morning and he spoke to his daughter and made it quite clear that he thinks he is dying, and did not want aggressive medical treatment. Comfort care measures were discussed with the daughter and his , hospice will be consulted and the family is agreeable to proceed with hospice and comfort care protocol. Objective - Vital Signs Vital signs: Vital Signs Temp 98.1 F 05/29/19 12:00 Pulse 86 05/29/19 12:00 Resp 22 05/29/19 12:00 BP 87/44 05/29/19 14:14 Pulse Ox 98 05/29/19 03:10 Intake & Output 05/28/19 05/29/19 05/29/19 18:59 06:59 18:59 Intake Total 368 20.75 90 Output Total 525 675 Balance -157 20.75 -585 Weight 65.2 kg 65.2 kg Intake: Intake, IV Titration 170 20.75 Amount Furosemide 100 mg In 20 20.75 Sodium Chloride 0.9% 90 ml @ 5 MG/HR 5 mls/hr IV .Q20H JOSE Rx#:[id number] Sodium Ferric Gluconat- 100 Sucrose 125 mg In Sodium Chloride 0.9% 100 ml @ 100 mls/hr IVPB DAILY JOSE Rx#:[id number] cefTRIAXone 1 gm In 50 Sodium Chloride 0.9% 50 ml @ 100 mls/hr IVPB Q24HR JOSE Rx#:[id number] Oral 198 90 Output: Urine 525 675 Uretheral (Leggett) 0 Other: Voiding Method Indwelling Catheter Indwelling Catheter Indwelling Catheter # Bowel Movements 1 - Exam GENERAL EXAM: Lethargic, 79-year-old white male on 4 L of oxygen and the pulse ox of 97% comfortable in no apparent distress. HEAD: Normocephalic/atraumatic. EYES: Normal reaction of pupils, equal size. Conjunctiva pink, sclera white. NOSE: Clear with pink turbinates. THROAT: No erythema or exudates. NECK: No masses, no JVD, no thyroid enlargement, no adenopathy. CHEST: No chest wall deformity. Symmetrical expansion. LUNGS: Equal air entry with diminished breath sounds at bilateral bases and scattered rhonchi throughout CVS: Regular rate and rhythm, normal S1 and S2, no gallops, no murmurs, no rubs ABDOMEN: Soft, nontender. No hepatosplenomegaly, normal bowel sounds, no guarding or rigidity. EXTREMITIES: No clubbing, 2+ bilateral lower extremity pitting edema, no cyanosis, 2+ pulses and upper and lower extremities. Right fourth toe amputated site, right mid leg wound with concern for possible cellulitis, local wound care with dressing, Aquasol silver dressing to the foot and may need to the right leg wound area. Left heel deep tissue injury MUSCULOSKELETAL: Muscle strength and tone normal. SPINE: No scoliosis or deformity SKIN: No rashes CENTRAL NERVOUS SYSTEM: Alert and oriented -3. No focal deficits, tone is normal in all 4 extremities. PSYCHIATRIC: Alert and oriented -3. Appropriate affect. Intact judgment and insight. - Labs CBC & Chem 7: 05/29/19 06:52 05/29/19 06:52 Labs: Abnormal Lab Results - Last 24 Hours (Table) 05/28/19 05/28/19 05/29/19 Range/Units 16:48 20:41 06:09 WBC (3.8-10.6) k/uL RBC (4.30-5.90) m/uL Hgb (13.0-17.5) gm/dL Hct (39.0-53.0) % MCHC (31.0-37.0) g/dL RDW (11.5-15.5) % Carbon Dioxide (22-30) mmol/L BUN (9-20) mg/dL Creatinine (0.66-1.25) mg/dL POC Glucose (mg/dL) 146 H 164 H 140 H (75-99) mg/dL Calcium (8.4-10.2) mg/dL 05/29/19 05/29/19 05/29/19 Range/Units 06:52 06:52 11:49 WBC 55.0 H* (3.8-10.6) k/uL RBC 2.94 L (4.30-5.90) m/uL Hgb 8.3 L (13.0-17.5) gm/dL Hct 28.1 L (39.0-53.0) % MCHC 29.5 L (31.0-37.0) g/dL RDW 28.8 H (11.5-15.5) % Carbon Dioxide 19 L (22-30) mmol/L BUN 74 H (9-20) mg/dL Creatinine 1.69 H (0.66-1.25) mg/dL POC Glucose (mg/dL) 161 H (75-99) mg/dL Calcium 6.7 L (8.4-10.2) mg/dL Microbiology - Last 24 Hours (Table) 05/29/19 04:18 Urine Culture - Preliminary Urine,Catheterized 05/28/19 12:00 Gram Stain - Preliminary Pleural Fluid Body Fluid Culture - Preliminary Assessment and Plan Plan: Assessment: #1. Acute exacerbation of chronic congestive heart failure with diastolic dysfunction #2. Bilateral pleural effusions, right greater than left, status post bilateral thoracentesis today on 05/28/2019 would removal of 1900 mL of dark jeannie fluid from the right and 900 mL of dark jeannie fluid from the left side with follow-up chest x-ray wean no evidence of pneumothorax #3. Right lower extremity cellulitis #4. Acute kidney injury #5. Acute urinary tract infection #6. Urinary retention status post Leggett catheter placement #7. Anemia #8. Recent admission for right lower leg cellulitis, ischemia involving the right lower extremity, that is post right fourth toe amputation #9. MRSA infection in the right leg wound #10. Known history of moderately severe mitral regurgitation, severe pulmonary hypertension #11. Persistent atrial fibrillation, not a candidate for anticoagulation related to episodes of GI bleeding #12. Severe peripheral arterial vascular disease Plan: Patient continues to decline clinically, his hypotensive, Lasix drip had to be discontinued, despite bilateral thoracentesis yesterday patient remains short of breath, his mentation had worsened since yesterday, his wakefulness is waxing and waning, however he was more awake this morning and spoke to his family and told them that he was dying, and he wanted to be comfortable. Pleural fluid mayra lysis revealed exudative fluid, cultures are pending, cytology is pending. Patient's family was updated on patient's deteriorating clinical status, and the family has made a decision to change the CODE STATUS to DO NOT RESUSCITATE, and agreed to hospice. Patient's family requested not to move the patient from the room, and in view of his fast deterioration of his clinical status, will likely do inpatient hospice. I performed a history & physical examination of the patient and discussed their management with my nurse practitioner, Crystal Hanna. I reviewed the nurse practitioner's note and agree with the documented findings and plan of care. Lung sounds are positive for diminished breath sounds. The findings and the impression was discussed with the patient. I attest to the documentation by the nurse practitioner. Time with Patient: Less than 30
[2019-05-29 16:41] LABS: Glucose,Whole Blood 147 mg/dL (75-99)
--- NOTE | 2019-05-29 17:04 | P.PN ---
Subjective Patient seen and examined. Reviewed all of today's discussions. Had long discussion in the room with the family again. Still agreeable to palliative care and hospice but if possible would appreciate ability to do at home. No further interventions planned. Comfort care has been initiated which I agree is the best option. Everyone at the bedside including the patient are in agreement with this course of action. Objective - Vital Signs Vital signs: Vital Signs Temp 98.1 F 05/29/19 12:00 Pulse 84 05/29/19 15:54 Resp 22 05/29/19 12:00 BP 87/44 05/29/19 14:14 Pulse Ox 98 05/29/19 03:10 Intake & Output 05/28/19 05/29/19 05/29/19 18:59 06:59 18:59 Intake Total 368 20.75 90 Output Total 525 675 Balance -157 20.75 -585 Weight 65.2 kg 65.2 kg Intake: Intake, IV Titration 170 20.75 Amount Furosemide 100 mg In 20 20.75 Sodium Chloride 0.9% 90 ml @ 5 MG/HR 5 mls/hr IV .Q20H JOSE Rx#:[id number] Sodium Ferric Gluconat- 100 Sucrose 125 mg In Sodium Chloride 0.9% 100 ml @ 100 mls/hr IVPB DAILY JOSE Rx#:[id number] cefTRIAXone 1 gm In 50 Sodium Chloride 0.9% 50 ml @ 100 mls/hr IVPB Q24HR JOSE Rx#:[id number] Oral 198 90 Output: Urine 525 675 Uretheral (Leggett) 0 Other: Voiding Method Indwelling Catheter Indwelling Catheter Indwelling Catheter # Bowel Movements 1 - Exam Patient is in mild respiratory distress Heart irregular Lungs with coarse breath sounds, decreased respirations mild work of breathing Abdomen mildly distended, tenderness to palpation diffusely, ecchymosis at injection sites Delayed capillary refill bilaterally lower extremities. Offloading boots in place - Labs CBC & Chem 7: 05/29/19 06:52 05/29/19 06:52 Labs: Abnormal Lab Results - Last 24 Hours (Table) 05/28/19 05/29/19 05/29/19 Range/Units 20:41 06:09 06:52 WBC 55.0 H* (3.8-10.6) k/uL RBC 2.94 L (4.30-5.90) m/uL Hgb 8.3 L (13.0-17.5) gm/dL Hct 28.1 L (39.0-53.0) % MCHC 29.5 L (31.0-37.0) g/dL RDW 28.8 H (11.5-15.5) % Carbon Dioxide (22-30) mmol/L BUN (9-20) mg/dL Creatinine (0.66-1.25) mg/dL POC Glucose (mg/dL) 164 H 140 H (75-99) mg/dL Calcium (8.4-10.2) mg/dL 05/29/19 05/29/19 05/29/19 Range/Units 06:52 11:49 16:40 WBC (3.8-10.6) k/uL RBC (4.30-5.90) m/uL Hgb (13.0-17.5) gm/dL Hct (39.0-53.0) % MCHC (31.0-37.0) g/dL RDW (11.5-15.5) % Carbon Dioxide 19 L (22-30) mmol/L BUN 74 H (9-20) mg/dL Creatinine 1.69 H (0.66-1.25) mg/dL POC Glucose (mg/dL) 161 H 147 H (75-99) mg/dL Calcium 6.7 L (8.4-10.2) mg/dL Microbiology - Last 24 Hours (Table) 05/29/19 04:18 Urine Culture - Preliminary Urine,Catheterized 05/28/19 12:00 Gram Stain - Preliminary Pleural Fluid Body Fluid Culture - Preliminary Assessment and Plan Plan: Abdominal pain Acute diastolic CHF exacerbation Troponin elevation, likely secondary to CHF exacerbation L heel pressure wound R foot woudn s/p 4th toe amputation Myeloproiferative disorder w/ Leukocytosis and normocytic anemia Protein calorie malnutrition w/ Hypoalbuminemia Permanent Atrial Fibrillation Elevated Total Bilirubin, possibly due to acute stressors Chronic conditions: CAD, HTN, HLD DVT prophylaxis Plans for palliative care/hospice at this time
[2019-05-29] MEDS: FUROSEMIDE 10 MG/ML 4 ML VIAL IV SCH ×2 (17:54→20:12)
[2019-05-29] MEDS: ATORVASTATIN 40 MG TAB PO SCH (20:12)
--- NOTE | 2019-05-29 20:39 | PN ---
PROGRESS NOTE DATE OF SERVICE: 05/29/2019. REASON FOR FOLLOWUP: Right 4th toe and right leg wound and left heel pressure ulcer. INTERVAL HISTORY: The patient is currently afebrile. Currently complaining of shortness of breath. Also noticed to have hypertension starting today. Occasional sputum. No nausea, no vomiting. No abdominal pain. Denies any pain to the right leg wound area. PHYSICAL EXAMINATION: Blood pressure is 87/44 with a pulse of 88, temperature 98.1. General description is an elderly male lying in bed in no distress. Respiratory system: Unlabored breathing with decreased breath sounds in the bases. No wheeze. Heart S1, S2. Regular rate and rhythm. Abdomen soft, no tenderness. Right foot and leg wounds currently with no evidence of any redness or any drainage. LABS: Hemoglobin 8.5, white count 79427, BUN of 7, creatinine 1.69. DIAGNOSTIC IMPRESSION AND PLAN: Patient with right 4th toe wound for which the patient underwent amputation of the right toe and the right leg wound. Local wound care to continue as ordered while monitoring clinical course closely. Overall prognosis remains to be poor. Family is considering possible hospice, may be appropriate for him. Their questions and concerns were answered. MMODL / IJN: [id number] /
[2019-05-29 21:04] LABS: Glucose,Whole Blood 141 mg/dL (75-99)
[2019-05-30] MEDS: MORPHINE SULFATE 4 MG/ML SYRINGE IVP PRN ×5 (02:36→23:34)
[2019-05-30 06:00] LABS: Glucose,Whole Blood 122 mg/dL (75-99)
[2019-05-30] MEDS: INSULIN ASPART (NovoLOG) 100 UNIT/ML VIAL SQ SCH ×3 (06:06→17:26)
[2019-05-30] MEDS: PANTOPRAZOLE 40 MG TABLET PO SCH (06:10)
[2019-05-30] MEDS: MIDODRINE 5 MG TAB PO SCH ×3 (06:10→18:21)
[2019-05-30 07:39] LABS: Magnesium 1.7 mg/dL (1.6-2.3); Potassium 4.3 mmol/L (3.5-5.1)
[2019-05-30 07:48] LABS: Calcium 6.3 mg/dL (8.4-10.2)
[2019-05-30 07:55] LABS: Anisocytosis Marked; HCT 23.1 % (39.0-53.0); Hypochromasia Marked; MCH 27.8 pg (25.0-35.0); MCHC 28.9 g/dL (31.0-37.0); MCV 96.3 fL (80.0-100.0); Macrocytosis Marked; Mean Platelet Volume 9.6; Microcytosis Slight; Platelet Count 149 k/uL (150-450); Poikilocytosis Marked; WBC 36.7 k/uL (3.8-10.6)
[2019-05-30] MEDS ORDERED: CALCIUM GLUCONATE 1 GM in SODIUM CHLORIDE 0.9% 100 ML IVPB ONE (07:59)
[2019-05-30 08:07] LABS: HGB 6.7 gm/dL (13.0-17.5); RDW 28.7 % (11.5-15.5)
[2019-05-30] MEDS: IPRATROPIUM-ALBUTEROL 3 ML NEB INHALATION SCH ×4 (08:48→19:44)
[2019-05-30] MEDS: ASPIRIN 81 MG PO SCH (09:23)
[2019-05-30] MEDS: CLOPIDOGREL 75 MG TAB PO SCH (09:23)
[2019-05-30] MEDS: METOPROLOL TARTRATE 25 MG TAB PO SCH ×3 (09:23→20:41)
[2019-05-30] MEDS: ALLOPURINOL 100 MG TAB PO SCH (09:23)
[2019-05-30] MEDS: FUROSEMIDE 10 MG/ML 4 ML VIAL IV SCH (09:23)
--- NOTE | 2019-05-30 09:42 | P.PN ---
Subjective Progress Note Date: 05/30/19 Seen and examined for the follow-up of acute kidney injury. Still feels little bit short of breath. No nausea vomiting or diarrhea. Monitor urine output of 525 ML's an the last 24 hours. Objective - Vital Signs Vital signs: Vital Signs Temp 98 F 05/30/19 03:01 Pulse 90 05/30/19 08:58 Resp 20 05/30/19 03:01 BP 98/45 05/30/19 03:01 Pulse Ox 97 05/30/19 03:01 Intake & Output 05/29/19 05/30/19 05/30/19 18:59 06:59 18:59 Intake Total 90 10 Output Total 975 400 Balance -885 -390 Weight 63.2 kg Intake: Oral 90 10 Output: Urine 975 400 Other: Voiding Method Indwelling Catheter Indwelling Catheter - Exam No acute distress S1-S2 heard Decreased breath sounds Edema. - Labs CBC & Chem 7: 05/30/19 06:41 05/30/19 06:41 Labs: Abnormal Lab Results - Last 24 Hours (Table) 05/29/19 05/29/19 05/29/19 Range/Units 11:49 16:40 21:03 WBC (3.8-10.6) k/uL RBC (4.30-5.90) m/uL Hgb (13.0-17.5) gm/dL Hct (39.0-53.0) % MCHC (31.0-37.0) g/dL RDW (11.5-15.5) % Plt Count (150-450) k/uL Macrocytosis Sodium (137-145) mmol/L BUN (9-20) mg/dL Creatinine (0.66-1.25) mg/dL POC Glucose (mg/dL) 161 H 147 H 141 H (75-99) mg/dL Calcium (8.4-10.2) mg/dL Ionized Calcium Jyothi (4.5-5.3) mg/dL 05/30/19 05/30/19 05/30/19 Range/Units 05:58 06:41 06:41 WBC 36.7 H (3.8-10.6) k/uL RBC 2.40 L (4.30-5.90) m/uL Hgb 6.7 L* D (13.0-17.5) gm/dL Hct 23.1 L (39.0-53.0) % MCHC 28.9 L (31.0-37.0) g/dL RDW 28.7 H (11.5-15.5) % Plt Count 149 L (150-450) k/uL Macrocytosis Marked A Sodium 135 L (137-145) mmol/L BUN 72 H (9-20) mg/dL Creatinine 1.65 H (0.66-1.25) mg/dL POC Glucose (mg/dL) 122 H (75-99) mg/dL Calcium 6.3 L* (8.4-10.2) mg/dL Ionized Calcium Jyothi (4.5-5.3) mg/dL 05/30/19 Range/Units 08:22 WBC (3.8-10.6) k/uL RBC (4.30-5.90) m/uL Hgb (13.0-17.5) gm/dL Hct (39.0-53.0) % MCHC (31.0-37.0) g/dL RDW (11.5-15.5) % Plt Count (150-450) k/uL Macrocytosis Sodium (137-145) mmol/L BUN (9-20) mg/dL Creatinine (0.66-1.25) mg/dL POC Glucose (mg/dL) (75-99) mg/dL Calcium (8.4-10.2) mg/dL Ionized Calcium Jyothi 3.9 L (4.5-5.3) mg/dL Microbiology - Last 24 Hours (Table) 05/29/19 04:18 Urine Culture - Preliminary Urine,Catheterized 05/28/19 12:00 Gram Stain - Preliminary Pleural Fluid Body Fluid Culture - Preliminary Assessment and Plan Assessment: #1 oliguric acute kidney injury secondary to cardiorenal syndrome. Creatinine stable. Baseline creatinine is 1.0 MG per DL. #2 urinary retention status post Leggett #3 volume overload with bilateral pleural effusion status post thoracentesis #4 diastolic CHF #5 anemia #6 low marginal blood pressures Plan: #1 Continue diuretics. Change Lasix 40 mg IV twice a day to Bumex drip. #2 strict ins and outs #3 continue with midodrine for hemodynamic support. #4 avoid nephrotoxic agents and hypotensive episodes
--- NOTE | 2019-05-30 10:28 | P.PN ---
Subjective Progress Note Date: 05/30/19 This is a pleasant 79-year-old patient who follows Dr. GERI Pelayo in the office has history of CAD, prior bypass, prior PCI, PAD with previous surgical and peripheral intervention by Dr. Mcfadden and Dr. 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 Patient was recently in the hospital in April of this year, was discharged home and he came back with gangrene of the toe on his right foot, underwent surgery, was discharged back to extended care facility, and then came back again to the hospital with symptoms of shortness of breath, edema, and weight gain. Patient has known moderate mitral regurgitation, severe pulmonary hypertension, persistent atrial fibrillation, not a candidate for anticoagulation because of GI bleeding. He was supposed to go to and undergo placement of a watchman device, he is unfortunately not been able to do this because of several recurrent hospitalizations for heart failure. At the time of my examination this morning, patient continues to feel quite short of breath, in general he states he just does not feel well. Blood pressure 106/70 with a heart rate in the 80s, 98% on 5 L of oxygen. White blood cell count 98.8, hemoglobin 7.7, platelet count 250. Sodium 134, potassium 5.0, BUN 59, creatinine 1.4. Mag level I.8. 05/27/2019 Patient was seen and examined this morning, he does state at times it feels as though his breathing is improving, but this only last part of the day and then he again feels quite short of breath. He is complaining today of feeling extremely weak as well. Dr. Seals did have a discussion with the patient today regarding possible palliative care. He currently lives at home, they're also looking at possible placement for him.his blood pressure this morning 96/60 with a heart rate in the 100, 98% on 5 L of oxygen.White blood cell count 80.1, hemoglobin 7.8, platelet count 228, sodium 138, potassium 4.8, BUN 67 and creatinine 1.9. Magnesium level is 1.9 total bili 1.8 AST and ALT are normal, alk phos is 243.his repeat chest x-ray showed findings compatible with congestive heart failure, likely small associated effusions. 05/28/2019 Patient was seen and examined this morning and planing of abdominal pain, states that he feels extremely constipated. He continues to feel short of breath. He did have a bilateral ultrasound performed of the chest, plan is to proceed with thoracentesis by pulmonary today. Blood pressure 110/40, heart rate in the 80s, sodium 135, potassium 4.4, BUN 73 and creatinine 1.6, magnesium 1.8. 05/30/2019 Patient seen and examined this morning, decision still being made regarding hospice. Continues to feel short of breath. Blood pressure 98/40 with a heart rate in the 80s, 97% on 4 L. White blood cell count 36.7, hemoglobin 6.7, platelet count 149. Sodium 135, potassium 4.3, BUN 72 and creatinine 1.6. Magnesium level I.7. Objective - Vital Signs Vital signs: Vital Signs Temp 98 F 05/30/19 03:01 Pulse 90 05/30/19 08:58 Resp 20 05/30/19 03:01 BP 98/45 05/30/19 03:01 Pulse Ox 97 05/30/19 03:01 Intake & Output 05/29/19 05/30/19 05/30/19 18:59 06:59 18:59 Intake Total 90 10 100 Output Total 975 400 Balance -885 -390 100 Weight 63.2 kg Intake: Oral 90 10 100 Output: Urine 975 400 Other: Voiding Method Indwelling Catheter Indwelling Catheter - Exam PHYSICAL EXAMINATION: GENERAL: 79-year-old gentleman in no acute distress at the time of my examination HEENT: Head is atraumatic, normocephalic. Pupils equal, round. Sclera anicteric. Conjunctiva are clear. Mucous membranes of the mouth are moist. Neck is supple. There is elevated jugular venous pressure. No carotid bruit is heard. HEART EXAMINATION: Heart S1-S2 irregularly irregular a grade 3/6 systolic murmur is heard at the apex CHEST EXAMINATION: Lungs reveal scattered rhonci THROUGHOUT with diminished air entry bilaterally ABDOMEN: Soft, positive generalized tenderness mild distention . EXTREMITIES: Diminished pulses bilaterally, 2+ bilateral pitting edema, amputation of the right toe. NEUROLOGIC patient is awake, alert and oriented 3 . . - Labs CBC & Chem 7: 05/30/19 06:41 05/30/19 06:41 Labs: Abnormal Lab Results - Last 24 Hours (Table) 05/29/19 05/29/19 05/29/19 Range/Units 11:49 16:40 21:03 WBC (3.8-10.6) k/uL RBC (4.30-5.90) m/uL Hgb (13.0-17.5) gm/dL Hct (39.0-53.0) % MCHC (31.0-37.0) g/dL RDW (11.5-15.5) % Plt Count (150-450) k/uL Macrocytosis Sodium (137-145) mmol/L BUN (9-20) mg/dL Creatinine (0.66-1.25) mg/dL POC Glucose (mg/dL) 161 H 147 H 141 H (75-99) mg/dL Calcium (8.4-10.2) mg/dL Ionized Calcium Jyothi (4.5-5.3) mg/dL 05/30/19 05/30/19 05/30/19 Range/Units 05:58 06:41 06:41 WBC 36.7 H (3.8-10.6) k/uL RBC 2.40 L (4.30-5.90) m/uL Hgb 6.7 L* D (13.0-17.5) gm/dL Hct 23.1 L (39.0-53.0) % MCHC 28.9 L (31.0-37.0) g/dL RDW 28.7 H (11.5-15.5) % Plt Count 149 L (150-450) k/uL Macrocytosis Marked A Sodium 135 L (137-145) mmol/L BUN 72 H (9-20) mg/dL Creatinine 1.65 H (0.66-1.25) mg/dL POC Glucose (mg/dL) 122 H (75-99) mg/dL Calcium 6.3 L* (8.4-10.2) mg/dL Ionized Calcium Jyothi (4.5-5.3) mg/dL 05/30/19 Range/Units 08:22 WBC (3.8-10.6) k/uL RBC (4.30-5.90) m/uL Hgb (13.0-17.5) gm/dL Hct (39.0-53.0) % MCHC (31.0-37.0) g/dL RDW (11.5-15.5) % Plt Count (150-450) k/uL Macrocytosis Sodium (137-145) mmol/L BUN (9-20) mg/dL Creatinine (0.66-1.25) mg/dL POC Glucose (mg/dL) (75-99) mg/dL Calcium (8.4-10.2) mg/dL Ionized Calcium Jyothi 3.9 L (4.5-5.3) mg/dL Microbiology - Last 24 Hours (Table) 05/29/19 04:18 Urine Culture - Preliminary Urine,Catheterized 05/28/19 12:00 Gram Stain - Preliminary Pleural Fluid Body Fluid Culture - Preliminary Assessment and Plan Plan: Assessment and plan #1 acute diastolic congestive heart failure, on chronic #2 chronic persistent atrial fibrillation, patient not a candidate for anticoagulation secondary to GI bleeding, he was scheduled as an outpatient to undergo implantation of a watchman device #3 severe pulmonary hypertension #4 known history of coronary artery disease with prior bypass surgery and prior angioplasty #5 PAD #6 hypertension Plan Patient continues to be on IV Bumex drip at this time. Decisions are being made regarding hospice care with the patient and his family. DNP note has been reviewed, I agree with a documented findings and plan of care. Patient was seen and examined.
[2019-05-30] MEDS: HEPARIN SODIUM,PORCINE 5,000 UNIT/ML 1 ML VIAL SQ SCH ×3 (10:50→23:07)
[2019-05-30] MEDS: SODIUM FERRIC GLUCONAT-SUCROSE 125 MG in SODIUM CHLORIDE 0.9% 100 ML IVPB SCH (10:51)
[2019-05-30] MEDS: BUMETANIDE 10 MG in DEXTROSE 5% IN WATER 60 ML IV SCH ×2 (10:51)
[2019-05-30] MEDS: DOXYCYCLINE 100 MG CAP PO SCH ×2 (10:52→20:40)
[2019-05-30 12:19] LABS: Glucose,Whole Blood 117 mg/dL (75-99)
--- NOTE | 2019-05-30 14:24 | P.PN ---
Subjective Progress Note Date: 05/30/19 Principal diagnosis: shortness of breath Patient is a 79-year-old male well known to our service with multiple recent admissions. He has past medical history of diastolic congestive heart failure, 8 atrial fibrillation (rate is likely on Xarelto for anticoagulation but has a history of recurrent bleeding and this is currently discontinued), myeloproliferative disease, coronary artery disease, peripheral arterial disease, dyslipidemia, and hypertension who was sent into the emergency department from his rehab due to worsening shortness of breath. Patient was admitted 618 for acute exacerbation of CHF and was discharged on 624. He was subsequently admitted again on 05/03/19 with right foot cellulitis versus ischemia. 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 At that point in time he has noted to have sepsis from right lower extremity cellulitis for which she received daptomycin was transitioned to oral doxycycline on discharge. Patient was discharged to rehab facility on 05/19 where the patient has been unable to fully participate in rehab secondary to his severe functional debility. He has been essentially bed bound and his developed bedsores most noticeably on his left heel. In the ER he underwent an extensive evaluation. His chest x-ray showed pulmonary edema, EKG showed A. fib rate controlled, white blood cell count elevated at 73.1, B and P 23,000, elevated troponin at 0.076 felt to be secondary to congestive heart failure. He was started on IV diuresis and was admitted for acute exacerbation of diastolic congestive heart failure. He was also noted to have a left heel eschar. Vascular surgery and infectious disease have been consulted no need for surgical intervention and off loading recommended along with local wound care. Seen by cardio who agrees with need for continued diuresis. Cr increased on 05/26 and n brianro consulted who feels likely related to cardio renal syndrome and lasix increased. Check x-ray on 05/27 revealed R>L pleural effusion. Pulmonary was consulted. Overnight on 05/27 his blood pressure dropped and Lasix drip was held. On 05/28 he had removal of 3 L of fluid with Bilateral thoracentesis. Midodrine was increased. He was continued on the lasix gtt and continued to have low blood pressures. his lasix gtt was transitioned to IVP lasix. BP improved by 05/30. He was seen by hospice on 05/29 and did not want to sign on with hospice at that time. Patient seen and examined at bedside. C/O constipation, breathing well, no chest pain, still having some pain at sigala site. Visiting with family. Objective - Vital Signs Vital signs: Vital Signs Temp 98.4 F 05/30/19 12:00 Pulse 90 05/30/19 13:06 Resp 18 05/30/19 12:00 BP 89/51 05/30/19 12:00 Pulse Ox 100 05/30/19 12:00 Intake & Output 05/29/19 05/30/19 05/30/19 18:59 06:59 18:59 Intake Total 90 10 100 Output Total 975 400 Balance -885 -390 100 Weight 63.2 kg Intake: Oral 90 10 100 Output: Urine 975 400 Other: Voiding Method Indwelling Catheter Indwelling Catheter Indwelling Catheter - Exam General: Ill appearing, gaunt, temporal wasting no distress, appears at stated age Derm: Left heel with dressing in place, warm, dry Head: atraumatic, normocephalic, symmetric Eyes: EOMI, no lid lag, anicteric sclera Mouth: no lip lesion, mucus membranes moist Cardiovascular: S1S2 irreg , no murmur, no JVD Lungs: decreased bs bilateral, faint ronchi , no accessory muscle use Abdominal: soft, nontender to palpation, no guarding, no appreciable organomegaly Ext: no gross muscle atrophy, 3+ edema, no contractures Neuro: CN II-XI grossly intact, no focal neuro deficits Psych: Alert, oriented, appropriate affect - Labs CBC & Chem 7: 05/30/19 06:41 05/30/19 06:41 Labs: Abnormal Lab Results - Last 24 Hours (Table) 05/29/19 05/29/19 05/30/19 Range/Units 16:40 21:03 05:58 WBC (3.8-10.6) k/uL RBC (4.30-5.90) m/uL Hgb (13.0-17.5) gm/dL Hct (39.0-53.0) % MCHC (31.0-37.0) g/dL RDW (11.5-15.5) % Plt Count (150-450) k/uL Macrocytosis Sodium (137-145) mmol/L BUN (9-20) mg/dL Creatinine (0.66-1.25) mg/dL POC Glucose (mg/dL) 147 H 141 H 122 H (75-99) mg/dL Calcium (8.4-10.2) mg/dL Ionized Calcium Jyothi (4.5-5.3) mg/dL Crossmatch 05/30/19 05/30/19 05/30/19 Range/Units 06:41 06:41 08:22 WBC 36.7 H (3.8-10.6) k/uL RBC 2.40 L (4.30-5.90) m/uL Hgb 6.7 L* D (13.0-17.5) gm/dL Hct 23.1 L (39.0-53.0) % MCHC 28.9 L (31.0-37.0) g/dL RDW 28.7 H (11.5-15.5) % Plt Count 149 L (150-450) k/uL Macrocytosis Marked A Sodium 135 L (137-145) mmol/L BUN 72 H (9-20) mg/dL Creatinine 1.65 H (0.66-1.25) mg/dL POC Glucose (mg/dL) (75-99) mg/dL Calcium 6.3 L* (8.4-10.2) mg/dL Ionized Calcium Jyothi 3.9 L (4.5-5.3) mg/dL Crossmatch 05/30/19 05/30/19 Range/Units 12:16 12:38 WBC (3.8-10.6) k/uL RBC (4.30-5.90) m/uL Hgb (13.0-17.5) gm/dL Hct (39.0-53.0) % MCHC (31.0-37.0) g/dL RDW (11.5-15.5) % Plt Count (150-450) k/uL Macrocytosis Sodium (137-145) mmol/L BUN (9-20) mg/dL Creatinine (0.66-1.25) mg/dL POC Glucose (mg/dL) 117 H (75-99) mg/dL Calcium (8.4-10.2) mg/dL Ionized Calcium Jyothi (4.5-5.3) mg/dL Crossmatch See Detail Microbiology - Last 24 Hours (Table) 05/28/19 12:00 Gram Stain - Preliminary Pleural Fluid Body Fluid Culture - Preliminary 05/29/19 04:18 Urine Culture - Preliminary Urine,Catheterized Assessment and Plan Assessment: Acute Cor pulmonale/CHF -Bumex trial today -strict I and O, daily weights -Fluid restriction -Cardiology recs apprecaited -Tele -Monitor electrolytes and replace accordingly - not on ACEI due to chronic hypotension requiring midodrine Anemia, patient with hx of multiple transfusion due to myeloproliferative disease, thrombocytopenia, and leukocytosis -Follow CBC -WBC count typically 30-40k - 1 unit pRBC -Iron, B 12 , and folate all in acceptable range HIREN, cardiorenal disease - nephro recs: bumex gtt if BP able to handle - strict I and O - avoid additional nephrotoxic agents - follow BMP bilateral pleural effusion - s/p thoracentesis - pulm recs appreciated - IV diuresis - due to CHF Atrial fibrillation, permanent -Metoprolol as able with BP -Not on anticoagulation due to hx of GIB -Aspirin -follow tele Urinary tract infection status post urinary retention -Rocephin -Await urine culture -Did have some budding yeast the on urinalysis continue to follow - sigala in place, pyridium for discomfort Troponin elevation, likely secondary to CHF exacerbation -down trending -Cardiology recs -Cardiac monitoring - ASA 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, newly discovered - Will not limit carbohydrate intake due to severe malnutrition -Consult telehealth nurse educator -Sliding-scale insulin L heel ulcer, possible dry gangrene -Vascular suregy recs appreciated: off load, turn q 2 hours, poor overall prognosis R foot cellulitis -Doxycycline to complete course -ID recs appreciated - vascular recs Moderate Protein calorie malnutrition, Hypoalbuminemia -Rivet Driver recs - supplement Elevated Total Bilirubin, possibly due to acute stressors -Monitor for now Chronic conditions: CAD, HTN, HLD continue home medications RVR due to A fib: resolved Discussed with: Patient Anticipated discharge date: 3-[address]: Rehab Facility A total of 35 minutes was spent on the care of this complex patient more than 50% of the time was spent in counseling and care coordination.
[2019-05-30 16:13] LABS: Anisocytosis Marked; HCT 22.6 % (39.0-53.0); Hypochromasia Marked; MCH 27.5 pg (25.0-35.0); MCHC 28.7 g/dL (31.0-37.0); MCV 95.9 fL (80.0-100.0); Macrocytosis Marked; Mean Platelet Volume 9.5; Microcytosis Slight; Platelet Count 155 k/uL (150-450); Poikilocytosis Marked; RBC 2.35 m/uL (4.30-5.90)
[2019-05-30 16:19] LABS: RDW 28.9 % (11.5-15.5)
[2019-05-30 16:20] LABS: HGB 6.5 gm/dL (13.0-17.5)
[2019-05-30 16:47] LABS: Band Neutrophils % 2 %; Lymphocytes # (M) 1.91 k/uL (1.0-4.8); Metamyelocytes # (M) 0.32 k/uL (0); Metamyelocytes % 1 %; Monocytes # (M) 0.32 k/uL (0-1.0); Neutrophils % (M) 92 %; Nucleated Red Blood Cells 6 /100 WBC (0-0); Total Cells Counted 200; WBC 31.9 k/uL (3.8-10.6)
[2019-05-30 16:48] LABS: Polychromasia Present; RBC Fragments Present
[2019-05-30 17:15] LABS: Glucose,Whole Blood 117 mg/dL (75-99)
[2019-05-30] MEDS: ATORVASTATIN 40 MG TAB PO SCH (20:40)
[2019-05-30] MEDS: PHENAZOPYRIDINE 100 MG TAB PO SCH ×2 (20:41→21:55)
[2019-05-30 21:02] LABS: Glucose,Whole Blood 137 mg/dL (75-99)
[2019-05-31] MEDS: MORPHINE SULFATE 4 MG/ML SYRINGE IVP PRN ×5 (02:58→20:02)
[2019-05-31 06:04] LABS: Glucose,Whole Blood 129 mg/dL (75-99)
[2019-05-31] MEDS: INSULIN ASPART (NovoLOG) 100 UNIT/ML VIAL SQ SCH ×2 (06:20→18:21)
[2019-05-31] MEDS: MIDODRINE 5 MG TAB PO SCH ×3 (06:58→18:22)
[2019-05-31] MEDS: PANTOPRAZOLE 40 MG TABLET PO SCH (06:58)
[2019-05-31] MEDS: IPRATROPIUM-ALBUTEROL 3 ML NEB INHALATION SCH ×4 (08:04→18:57)
[2019-05-31 09:05] LABS: Anisocytosis Marked; HCT 26.9 % (39.0-53.0); Hypochromasia Marked; MCH 29.1 pg (25.0-35.0); MCHC 30.4 g/dL (31.0-37.0); MCV 95.7 fL (80.0-100.0); Macrocytosis Moderate; Mean Platelet Volume 8.5; Microcytosis Slight; Platelet Count 163 k/uL (150-450); Poikilocytosis Marked; RBC 2.81 m/uL (4.30-5.90); WBC 35.2 k/uL (3.8-10.6)
[2019-05-31 09:15] LABS: Calcium 6.5 mg/dL (8.4-10.2); Magnesium 1.6 mg/dL (1.6-2.3); Potassium 4.1 mmol/L (3.5-5.1)
[2019-05-31 09:28] LABS: HGB 8.2 gm/dL (13.0-17.5)
[2019-05-31 09:29] LABS: RDW 27.6 % (11.5-15.5)
[2019-05-31] MEDS: PHENAZOPYRIDINE 100 MG TAB PO SCH ×3 (09:43→20:01)
[2019-05-31] MEDS: METOPROLOL TARTRATE 25 MG TAB PO SCH ×3 (09:43→20:01)
[2019-05-31] MEDS: ASPIRIN 81 MG PO SCH (09:43)
[2019-05-31] MEDS: ALLOPURINOL 100 MG TAB PO SCH (09:44)
[2019-05-31] MEDS: POLYETHYLENE GLYCOL 3350 17 GM POWD.PACK PO SCH (09:44)
[2019-05-31] MEDS: CLOPIDOGREL 75 MG TAB PO SCH (09:44)
[2019-05-31] MEDS: DOXYCYCLINE 100 MG CAP PO SCH ×2 (09:44→20:01)
[2019-05-31] MEDS ORDERED: FLUCONAZOLE 100 MG TAB PO ONE (10:10)
--- NOTE | 2019-05-31 10:16 | P.PN ---
Subjective Progress Note Date: 05/31/19 Seen and examined for the follow-up of acute kidney injury. Complaining of pain in the bladder area and lower legs. No nausea vomiting diarrhea. Currently on Bumex drip started yesterday. Urine output of 1375 ML's in the last 24 hours. Family at bedside. Objective - Vital Signs Vital signs: Vital Signs Temp 97.8 F 05/31/19 03:41 Pulse 96 05/31/19 08:17 Resp 18 05/31/19 03:41 BP 87/47 05/31/19 03:41 Pulse Ox 95 05/31/19 03:41 Intake & Output 05/30/19 05/31/19 05/31/19 18:59 06:59 18:59 Intake Total 400 310 Output Total 1200 500 Balance -800 -190 Weight 61.8 kg Intake: Oral 400 Blood Product 0 310 Rc Irr As1 Unit 0 310 [id number] Output: Urine 1200 500 Other: Voiding Method Indwelling Catheter Indwelling Catheter - Exam No acute distress S1-S2 heard Decreased breath sounds Edema. - Labs CBC & Chem 7: 05/31/19 08:47 05/31/19 08:47 Labs: Abnormal Lab Results - Last 24 Hours (Table) 05/30/19 05/30/19 05/30/19 Range/Units 12:16 12:38 15:44 WBC 31.9 H (3.8-10.6) k/uL RBC 2.35 L (4.30-5.90) m/uL Hgb 6.5 L* (13.0-17.5) gm/dL Hct 22.6 L (39.0-53.0) % MCHC 28.7 L (31.0-37.0) g/dL RDW 28.9 H (11.5-15.5) % Neutrophils # (Manual) 29.90 H (1.3-7.7) k/uL Metamyelocytes # (Man) 0.32 H (0) k/uL Nucleated RBCs 6 H (0-0) /100 WBC Macrocytosis Marked A Sodium (137-145) mmol/L BUN (9-20) mg/dL Creatinine (0.66-1.25) mg/dL Glucose (74-99) mg/dL POC Glucose (mg/dL) 117 H (75-99) mg/dL Calcium (8.4-10.2) mg/dL Crossmatch See Detail 05/30/19 05/30/19 05/31/19 Range/Units 16:54 20:48 05:55 WBC (3.8-10.6) k/uL RBC (4.30-5.90) m/uL Hgb (13.0-17.5) gm/dL Hct (39.0-53.0) % MCHC (31.0-37.0) g/dL RDW (11.5-15.5) % Neutrophils # (Manual) (1.3-7.7) k/uL Metamyelocytes # (Man) (0) k/uL Nucleated RBCs (0-0) /100 WBC Macrocytosis Sodium (137-145) mmol/L BUN (9-20) mg/dL Creatinine (0.66-1.25) mg/dL Glucose (74-99) mg/dL POC Glucose (mg/dL) 117 H 137 H 129 H (75-99) mg/dL Calcium (8.4-10.2) mg/dL Crossmatch 05/31/19 05/31/19 Range/Units 08:47 08:47 WBC 35.2 H (3.8-10.6) k/uL RBC 2.81 L (4.30-5.90) m/uL Hgb 8.2 L D (13.0-17.5) gm/dL Hct 26.9 L (39.0-53.0) % MCHC 30.4 L (31.0-37.0) g/dL RDW 27.6 H (11.5-15.5) % Neutrophils # (Manual) (1.3-7.7) k/uL Metamyelocytes # (Man) (0) k/uL Nucleated RBCs (0-0) /100 WBC Macrocytosis Sodium 130 L (137-145) mmol/L BUN 69 H (9-20) mg/dL Creatinine 1.51 H (0.66-1.25) mg/dL Glucose 118 H (74-99) mg/dL POC Glucose (mg/dL) (75-99) mg/dL Calcium 6.5 L (8.4-10.2) mg/dL Crossmatch Microbiology - Last 24 Hours (Table) 05/28/19 12:00 Gram Stain - Preliminary Pleural Fluid Body Fluid Culture - Preliminary 05/29/19 04:18 Urine Culture - Final Urine,Catheterized Klebsiella oxytoca Betsy albicans Assessment and Plan Assessment: #1 non-oliguric acute kidney injury secondary to cardiorenal syndrome. Creatinine stable. Baseline creatinine is 1.0 MG per DL. #2 urinary retention status post [place]gett #3 volume overload with bilateral pleural effusion status post thoracentesis #4 diastolic CHF #5 anemia #6 low marginal blood pressures Plan: #1 Continue diuretics on Bumex drip. Increase to 1 mg an hour. #2 strict ins and outs #3 continue with midodrine for hemodynamic support. #4 avoid nephrotoxic agents and hypotensive episodes #5 add Neurontin for neuropathic pain.
[2019-05-31] MEDS ORDERED: LEVOFLOXACIN 750MG-D5W PMX 750 MG in DEXTROSE/WATER 1 150ML.BAG IVPB SCH (10:30)
[2019-05-31] MEDS: GABAPENTIN 100 MG CAP PO SCH ×3 (11:50→20:01)
[2019-05-31] MEDS: HEPARIN SODIUM,PORCINE 5,000 UNIT/ML 1 ML VIAL SQ SCH ×3 (15:50→23:27)
--- NOTE | 2019-05-31 16:34 | P.PN ---
Subjective Progress Note Date: 05/31/19 (delayed charting seen at 1130 am) Principal diagnosis: shortness of breath Patient is a 79-year-old male well known to our service with multiple recent admissions. He has past medical history of diastolic congestive heart failure, 8 atrial fibrillation (rate is likely on Xarelto for anticoagulation but has a history of recurrent bleeding and this is currently discontinued), myeloproliferative disease, coronary artery disease, peripheral arterial disease, dyslipidemia, and hypertension who was sent into the emergency department from his rehab due to worsening shortness of breath. Patient was admitted 618 for acute exacerbation of CHF and was discharged on 624. He was subsequently admitted again on 05/03/19 with right foot cellulitis versus ischemia. 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 At that point in time he has noted to have sepsis from right lower extremity cellulitis for which she received daptomycin was transitioned to oral doxycycline on discharge. Patient was discharged to rehab facility on 05/19 where the patient has been unable to fully participate in rehab secondary to his severe functional debility. He has been essentially bed bound and his developed bedsores most noticeably on his left heel. In the ER he underwent an extensive evaluation. His chest x-ray showed pulmonary edema, EKG showed A. fib rate controlled, white blood cell count elevated at 73.1, B and P 23,000, elevated troponin at 0.076 felt to be secondary to congestive heart failure. He was started on IV diuresis and was admitted for acute exacerbation of diastolic congestive heart failure. He was also noted to have a left heel eschar. Va scular surgery and infectious disease have been consulted no need for surgical intervention and off loading recommended along with local wound care. Seen by cardio who agrees with need for continued diuresis. Cr increased on 05/26 and nephro consulted who feels likely related to cardio renal syndrome and lasix increased. Check x-ray on 05/27 revealed R>L pleural effusion. Pulmonary was consulted. Overnight on 05/27 his blood pressure dropped and Lasix drip was held. On 05/28 he had removal of 3 L of fluid with Bilateral thoracentesis. Midodrine was increased. He was continued on the lasix gtt and continued to have low blood pressures. his lasix gtt was transitioned to IVP lasix. BP improved by 05/30. He was seen by hospice on 05/29 and did not want to sign on with hospice at that time but did agree to DNR per pulmonary. HgB dropped again on 05/30 without any overt signs of bleeding given 1 unit of pRBC with appropriate response and felt to be due to myeloproliferative disorder. In bettter spirits on 05/30. Continuing to stuggle with pain and difficulty at night. Daughter has been staying at bedside. Patient seen and examined at bedside. States that breathing is okay, no pain at this time, admits to pain overnight. Significant penile/groin pain, no c/o constipation. Objective - Vital Signs Vital signs: Vital Signs Temp 97.2 F L 05/31/19 08:00 Pulse 96 05/31/19 08:17 Resp 16 05/31/19 12:00 BP 88/48 05/31/19 12:00 Pulse Ox 100 05/31/19 08:00 Intake & Output 05/30/19 05/31/19 05/31/19 18:59 06:59 18:59 Intake Total 400 310 200 Output Total 1200 500 700 Balance -800 -190 -500 Weight 61.8 kg Intake: Oral 400 200 Blood Product 0 310 Rc Irr As1 Unit 0 310 [id number] Output: Urine 1200 500 700 Other: Voiding Method Indwelling Catheter Indwelling Catheter Indwelling Catheter - Exam General: Ill appearing, gaunt, temporal wasting no distress, appears at stated age Derm: coccyx with large unstagable ulcer, multiple areas of bruising,Left heel with dressing in place, warm, dry Head: atraumatic, normocephalic, symmetric Eyes: EOMI, no lid lag, anicteric sclera Mouth: no lip lesion, mucus membranes moist Cardiovascular: S1S2 irreg , no murmur, no JVD Lungs: crackles bilateral bases , no accessory muscle use Abdominal: soft, nontender to palpation, no guarding, no appreciable orga nomegaly Ext: no gross muscle atrophy, 3+ edema, no contractures Neuro: CN II-XI grossly intact, no focal neuro deficits : skin eroision on right side of penis, penile edema Psych: Alert, oriented, appropriate affect - Labs CBC & Chem 7: 05/31/19 08:47 05/31/19 08:47 Labs: Abnormal Lab Results - Last 24 Hours (Table) 05/30/19 05/30/19 05/30/19 Range/Units 12:38 15:44 16:54 WBC 31.9 H (3.8-10.6) k/uL RBC 2.35 L (4.30-5.90) m/uL Hgb 6.5 L* (13.0-17.5) gm/dL Hct 22.6 L (39.0-53.0) % MCHC 28.7 L (31.0-37.0) g/dL RDW 28.9 H (11.5-15.5) % Neutrophils # (Manual) 29.90 H (1.3-7.7) k/uL Metamyelocytes # (Man) 0.32 H (0) k/uL Nucleated RBCs 6 H (0-0) /100 WBC Macrocytosis Marked A Sodium (137-145) mmol/L BUN (9-20) mg/dL Creatinine (0.66-1.25) mg/dL Glucose (74-99) mg/dL POC Glucose (mg/dL) 117 H (75-99) mg/dL Calcium (8.4-10.2) mg/dL Crossmatch See Detail 05/30/19 05/31/19 05/31/19 Range/Units 20:48 05:55 08:47 WBC 35.2 H (3.8-10.6) k/uL RBC 2.81 L (4.30-5.90) m/uL Hgb 8.2 L D (13.0-17.5) gm/dL Hct 26.9 L (39.0-53.0) % MCHC 30.4 L (31.0-37.0) g/dL RDW 27.6 H (11.5-15.5) % Neutrophils # (Manual) (1.3-7.7) k/uL Metamyelocytes # (Man) (0) k/uL Nucleated RBCs (0-0) /100 WBC Macrocytosis Sodium (137-145) mmol/L BUN (9-20) mg/dL Creatinine (0.66-1.25) mg/dL Glucose (74-99) mg/dL POC Glucose (mg/dL) 137 H 129 H (75-99) mg/dL Calcium (8.4-10.2) mg/dL Crossmatch 05/31/19 Range/Units 08:47 WBC (3.8-10.6) k/uL RBC (4.30-5.90) m/uL Hgb (13.0-17.5) gm/dL Hct (39.0-53.0) % MCHC (31.0-37.0) g/dL RDW (11.5-15.5) % Neutrophils # (Manual) (1.3-7.7) k/uL Metamyelocytes # (Man) (0) k/uL Nucleated RBCs (0-0) /100 WBC Macrocytosis Sodium 130 L (137-145) mmol/L BUN 69 H (9-20) mg/dL Creatinine 1.51 H (0.66-1.25) mg/dL Glucose 118 H (74-99) mg/dL POC Glucose (mg/dL) (75-99) mg/dL Calcium 6.5 L (8.4-10.2) mg/dL Crossmatch Microbiology - Last 24 Hours (Table) 05/29/19 04:18 Urine Culture - Final Urine,Catheterized Klebsiella oxytoca Betsy albicans 05/28/19 12:00 Gram Stain - Preliminary Pleural Fluid Body Fluid Culture - Preliminary Assessment and Plan Assessment: Acute Cor pulmonale/CHF -Bumex gtt, negative 1.2L 05/30 -strict I and O, daily weights -Fluid restriction -Cardiology recs apprecaited -Tele -Monitor electrolytes and replace accordingly - not on ACEI due to chronic hypotension requiring midodrine HIREN, cardiorenal disease - nephro recs: bumex gtt if BP able to handle - strict I and O - avoid additional nephrotoxic agents - follow BMP Anemia, patient with hx of multiple transfusion due to myeloproliferative disease, thrombocytopenia, and leukocytosis -Follow CBC -WBC count typically 30-40k - 1 unit pRBC 05/30 -Iron, B 12 , and folate all in acceptable range bilateral pleural effusion - s/p thoracentesis - pulm recs appreciated - IV diuresis - due to CHF - suspect recurrence unless able to achieve significant negative fluid balance. 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, newly discovered - Will not limit carbohydrate intake due to severe malnutrition -Consult special education paraeducator -Sliding-scale insulin L heel ulcer, possible dry gangrene -Vascular suregy recs appreciated: off load, turn q 2 hours, poor overall prognosis R foot cellulitis -Doxycycline to complete course -ID recs appreciated - vascular recs Moderate Protein calorie malnutrition, Hypoalbuminemia -Manufacturing Accountant recs - supplement Elevated Total Bilirubin, possibly due to acute stressors -Monitor for now Function paraplegia - PT re-eval, pt unable to sit at edge of bed with PT. Chronic conditions: CAD, HTN, HLD continue home medications RVR due to A fib: resolved Troponin elevation,stable Discussed with: Patient, family, nursing Anticipated discharge date: 3-[address]: Rehab Facility vs hospice A total of 35 minutes was spent on the care of this complex patient more than 50% of the time was spent in counseling and care coordination.
[2019-05-31] MEDS: BUMETANIDE 10 MG in DEXTROSE 5% IN WATER 60 ML IV SCH ×2 (17:50)
[2019-05-31] MEDS: ATORVASTATIN 40 MG TAB PO SCH (20:01)
[2019-05-31 21:03] LABS: Glucose,Whole Blood 106 mg/dL (75-99)
[2019-06-01] MEDS: BUMETANIDE 10 MG in DEXTROSE 5% IN WATER 60 ML IV SCH ×2 (02:49)
[2019-06-01] MEDS: MORPHINE SULFATE 4 MG/ML SYRINGE IVP PRN ×6 (04:05→20:47)
[2019-06-01] MEDS: BUMETANIDE 10 MG in SODIUM CHLORIDE 0.9% 60 ML IV SCH ×3 (05:57→23:10)
[2019-06-01] MEDS: PANTOPRAZOLE 40 MG TABLET PO SCH (06:00)
[2019-06-01] MEDS: MIDODRINE 5 MG TAB PO SCH ×3 (06:00→18:08)
[2019-06-01] MEDS: INSULIN ASPART (NovoLOG) 100 UNIT/ML VIAL SQ SCH ×3 (06:16→17:09)
[2019-06-01 06:17] LABS: Glucose,Whole Blood 102 mg/dL (75-99)
[2019-06-01] MEDS: IPRATROPIUM-ALBUTEROL 3 ML NEB INHALATION SCH ×4 (07:33→20:24)
[2019-06-01] MEDS: HEPARIN SODIUM,PORCINE 5,000 UNIT/ML 1 ML VIAL SQ SCH ×3 (08:37→23:10)
[2019-06-01] MEDS: FLUCONAZOLE 100 MG TAB PO SCH (08:38)
[2019-06-01] MEDS: DOXYCYCLINE 100 MG CAP PO SCH (08:38)
[2019-06-01] MEDS: PHENAZOPYRIDINE 100 MG TAB PO SCH (08:38)
[2019-06-01] MEDS: GABAPENTIN 100 MG CAP PO SCH ×2 (08:38→20:07)
[2019-06-01] MEDS: ASPIRIN 81 MG PO SCH (08:38)
[2019-06-01] MEDS: METOPROLOL TARTRATE 25 MG TAB PO SCH ×3 (08:38→20:08)
[2019-06-01] MEDS: CLOPIDOGREL 75 MG TAB PO SCH (08:38)
[2019-06-01] MEDS: POLYETHYLENE GLYCOL 3350 17 GM POWD.PACK PO SCH (08:39)
[2019-06-01] MEDS: ALLOPURINOL 100 MG TAB PO SCH (08:47)
--- NOTE | 2019-06-01 09:53 | P.PN ---
Subjective Patient is seen in follow-up for acute kidney injury. Renal function is improved. Creatinine 1.51 as of yesterday. Lasix drip was attempted twice but had to be discontinued due to hypotension. He is now on Bumex drip. He is on midodrine. Patient underwent thoracentesis on May 28 with 1.8 L drained from the right side and 1.4 L drained from the left side. Urine output documented is 1.6 L in the last 24 hours. Family present at bedside. Vital signs are stable. General: The patient appeared well nourished and normally developed. HEENT: Head exam is unremarkable. Neck is without jugular venous distension. LUNGS: Breath sounds decreased. HEART: Rate and Rhythm are regular. First and second heart sounds normal. No murmurs, rubs or gallops. ABDOMEN: Abdominal exam reveals normal bowel sounds. Non-tender and non- distended. EXTREMITITES: 2+ edema. Objective - Vital Signs Vital signs: Vital Signs Temp 97.5 F L 06/01/19 04:15 Pulse 106 H 06/01/19 04:15 Resp 17 06/01/19 04:15 BP 89/42 06/01/19 04:15 Pulse Ox 95 06/01/19 04:15 Intake & Output 05/31/19 06/01/19 06/01/19 18:59 06:59 18:59 Intake Total 300 325 Output Total 700 950 Balance -400 -625 Weight 67 kg Intake: Oral 300 325 Output: Urine 700 950 Uretheral (Leggett) 950 Other: Voiding Method Indwelling Catheter Indwelling Catheter - Labs CBC & Chem 7: 05/31/19 08:47 05/31/19 08:47 Labs: Abnormal Lab Results - Last 24 Hours (Table) 05/31/19 06/01/19 Range/Units 21:01 06:15 POC Glucose (mg/dL) 106 H 102 H (75-99) mg/dL Microbiology - Last 24 Hours (Table) 05/29/19 04:18 Urine Culture - Final Urine,Catheterized Klebsiella oxytoca Betsy albicans 05/28/19 12:00 Gram Stain - Preliminary Pleural Fluid Body Fluid Culture - Preliminary Assessment and Plan Plan: Assessment: 1. Acute kidney injury mostly prerenal secondary to cardiorenal syndrome. Renal function better. Creatinine 1.51 as of yesterday. Baseline creatinine near 1. 2. Urinary retention status post Leggett catheter placement. 3. Volume overload with bilateral pleural effusions. Status post bilateral thoracentesis with total 3.2 L removed. 4. Acute hypoxic respiratory failure. 5. Right foot wound maintained on antibiotics. Infectious disease following. 6. Diastolic CHF with severe tricuspid regurgitation and pulmonary hypertension. 7. Anemia. Iron deficiency noted. Status post 3 doses of IV iron. 8. Hypervolemic hyponatremia. Plan: Maintain Bumex drip. Can be transitioned over to oral Bumex 2 mg twice daily upon discharge. Maintain midodrine 10 mg 3 times daily. Low-salt diet and fluid restriction. Continue to monitor renal function and urine output. Avoid nephrotoxins. Repeat electrolytes in the morning. Strict is and os. Add Aranesp.
[2019-06-01] MEDS ORDERED: DARBEPOETIN ALFA 40 MCG/0.4 ML SYRINGE SQ SCH (10:00)
[2019-06-01 11:27] VITALS: BMI 23.1
[2019-06-01 12:09] LABS: Glucose,Whole Blood 95 mg/dL (75-99)
--- NOTE | 2019-06-01 15:02 | P.PN ---
Subjective Progress Note Date: 06/01/19 The patient is a 79 yo M with a PMH of diastolic CHF, atrial fibrillation not on anticoagulation due to history of GI bleeding, myeloproliferative disease, coronary artery disease, hyperlipidemia, and hypertension who presented to the ED for worsening shortness of breath. The patient has a history of multiple recent hospitalizations and was previously discharged to a rehab facility. The patient was admitted for likely acute diastolic CHF exacerbation and was started on IV diuresis. Patient was also noted to have a left heel eschar for which infectious disease and vascular surgery were consulted and recommended no surgical interventions. The patient's diuresis had been adjusted due to hypertension and HIREN. Multiple discussions werehad by previous providers with the family regarding the patient's goals of care. The patient's PCP (Dr Franklin) also came to see the patient today in the hospital. The patient and the family wish to move forward with hospice care. The patient was seen and examined with family at the bedside. The patient notes continued suprapbuic abdominal pain and some shortness of breath. Though otherwise denied chest pain, nausea, vomiting, diarrhea, fever, or chills. Objective - Vital Signs Vital signs: Vital Signs Temp 97.5 F L 06/01/19 04:15 Pulse 88 06/01/19 08:00 Resp 20 06/01/19 08:00 BP 89/43 06/01/19 08:00 Pulse Ox 95 06/01/19 08:00 Intake & Output 05/31/19 06/01/19 06/01/19 18:59 06:59 18:59 Intake Total 300 325 100 Output Total 700 950 950 Balance -400 -022 -850 Weight 67 kg 67 kg Intake: Oral 300 325 100 Output: Urine 700 950 950 Uretheral (Leggett) 950 950 Other: Voiding Method Indwelling Catheter Indwelling Catheter - Exam General: ill appearing elderly M, in mild distress, appears stated age HEENT: NC/AT, anicteric sclerae, moist conjunctiva, no lid-lag, PERRLA Cardiovascular: S1/S2 wnl, no murmurs, rubs, or gallops Lungs: Bibasilar rales, normal respiratory effort, no accessory muscle use Abdominal: Soft, non-tender, non-distended, no guarding, rebound, or rigidity Skin: Multiple areas of bruising, L heel eschar w/ dresing Extremities: 2+ LE edema tom, no contractures Psychiatric: Alert and oriented to person, place and time, appropriate affect Neuro: CN II-XII grossly intact, no focal neuro deficits - Labs CBC & Chem 7: 05/31/19 08:47 05/31/19 08:47 Labs: Abnormal Lab Results - Last 24 Hours (Table) 05/31/19 06/01/19 Range/Units 21:01 06:15 POC Glucose (mg/dL) 106 H 102 H (75-99) mg/dL Microbiology - Last 24 Hours (Table) 05/28/19 12:00 Gram Stain - Final Pleural Fluid Body Fluid Culture - Final 05/29/19 04:18 Urine Culture - Final Urine,Catheterized Klebsiella oxytoca Betsy albicans Assessment and Plan Plan: Acute diastolic CHF exacerbation -C/w Bumex -Cardiology recommendations appreciated -Cardiac monitoring -I/Os, Daily weights HIREN, likely cardiorenal disease -Neurology recs appreciated -Continue with Bumex Klebsiella and Betsy UTI -C/w Levaquin and Diflucan Myeloproiferative disorder w/ Leukocytosis and normocytic anemia -s/P 1 UpRBCs 05/30/19 -Follows w/ Dr Miller -WBC count usually 30-40k Permanent Atrial Fibrillation -Not on anticoagulation due to hx of GIB -C/w Aspirin and Plavix Chronic conditions: CAD, HTN, HLD -Resume home medications DVT prophylaxis -Heparin
[2019-06-01 17:07] LABS: Glucose,Whole Blood 101 mg/dL (75-99)
[2019-06-01] MEDS: ATORVASTATIN 40 MG TAB PO SCH (20:08)
[2019-06-01 20:44] LABS: Glucose,Whole Blood 95 mg/dL (75-99)
[2019-06-02] MEDS: MORPHINE SULFATE 4 MG/ML SYRINGE IVP PRN ×7 (00:06→20:04)
[2019-06-02] MEDS: BUMETANIDE 10 MG in DEXTROSE 5% IN WATER 60 ML IV SCH ×6 (03:49→20:14)
[2019-06-02] MEDS: MIDODRINE 5 MG TAB PO SCH ×3 (05:26→16:17)
[2019-06-02] MEDS: PANTOPRAZOLE 40 MG TABLET PO SCH (05:26)
[2019-06-02] MEDS: INSULIN ASPART (NovoLOG) 100 UNIT/ML VIAL SQ SCH ×3 (05:34→16:55)
[2019-06-02 05:40] LABS: Glucose,Whole Blood 105 mg/dL (75-99)
[2019-06-02] MEDS: IPRATROPIUM-ALBUTEROL 3 ML NEB INHALATION SCH ×4 (07:42→19:45)
[2019-06-02] MEDS ORDERED: LEVOFLOXACIN 750 MG TAB PO SCH (09:00)
[2019-06-02] MEDS: METOPROLOL TARTRATE 25 MG TAB PO SCH ×3 (09:35→20:03)
[2019-06-02] MEDS: HEPARIN SODIUM,PORCINE 5,000 UNIT/ML 1 ML VIAL SQ SCH ×2 (09:40→16:10)
[2019-06-02] MEDS: CLOPIDOGREL 75 MG TAB PO SCH (09:41)
[2019-06-02] MEDS: GABAPENTIN 100 MG CAP PO SCH ×2 (09:41→20:04)
[2019-06-02] MEDS: FLUCONAZOLE 100 MG TAB PO SCH (09:41)
[2019-06-02] MEDS: ASPIRIN 81 MG PO SCH (09:42)
[2019-06-02] MEDS: ALLOPURINOL 100 MG TAB PO SCH (09:42)
[2019-06-02] MEDS: POLYETHYLENE GLYCOL 3350 17 GM POWD.PACK PO SCH (09:48)
--- NOTE | 2019-06-02 11:19 | P.PN ---
Subjective Patient is seen in follow-up for acute kidney injury. Renal function is improved. Creatinine 1.51 as of May 31. Lasix drip was attempted twice but had to be discontinued due to hypotension. He is now on Bumex drip. He is on midodrine. Patient underwent thoracentesis on May 28 with 1.8 L drained from the right side and 1.4 L drained from the left side. Urine output documented is 3.1 L in the last 24 hours. Family present at bedside. Vital signs are stable. General: The patient appeared well nourished and normally developed. HEENT: Head exam is unremarkable. Neck is without jugular venous distension. LUNGS: Breath sounds decreased. HEART: Rate and Rhythm are regular. First and second heart sounds normal. No murmurs, rubs or gallops. ABDOMEN: Abdominal exam reveals normal bowel sounds. Non-tender and non- distended. EXTREMITITES: 2+ edema. Objective - Vital Signs Vital signs: Vital Signs Temp 98.3 F 06/02/19 08:00 Pulse 108 H 06/02/19 11:13 Resp 18 06/02/19 08:00 BP 83/43 06/02/19 08:00 Pulse Ox 97 06/02/19 08:00 Intake & Output 06/01/19 06/02/19 06/02/19 18:59 06:59 18:59 Intake Total 110 100 Output Total 1900 2250 Balance -1790 -2150 Weight 67 kg 106.1 kg Intake: Intake, IV Titration 10 Amount Bumetanide 10 mg In 10 Sodium Chloride 0.9% 60 ml @ 1 MG/HR 10 mls/hr IV .Q10H [facility] Rx#:[id number] Oral 100 100 Output: Urine 1900 2250 Uretheral (Leggett) 1900 1900 - Labs CBC & Chem 7: 05/31/19 08:47 05/31/19 08:47 Labs: Abnormal Lab Results - Last 24 Hours (Table) 06/01/19 06/02/19 Range/Units 17:05 05:29 POC Glucose (mg/dL) 101 H 105 H (75-99) mg/dL Microbiology - Last 24 Hours (Table) 05/28/19 12:00 Gram Stain - Final Pleural Fluid Body Fluid Culture - Final Assessment and Plan Plan: Assessment: 1. Acute kidney injury mostly prerenal secondary to cardiorenal syndrome. Renal function better. Creatinine 1.51 as of May 31. Baseline creatinine near 1. 2. Urinary retention status post Leggett catheter placement. 3. Volume overload with bilateral pleural effusions. Status post bilateral thoracentesis with total 3.2 L removed. 4. Acute hypoxic respiratory failure. 5. Right foot wound maintained on antibiotics. Infectious disease following. 6. Diastolic CHF with severe tricuspid regurgitation and pulmonary hypertension. 7. Anemia. Iron deficiency noted. Status post 3 doses of IV iron. Also on Aranesp. 8. Hypervolemic hyponatremia. Plan: Maintain Bumex drip. Can be transitioned over to oral Bumex 2 mg twice daily upon discharge. Maintain midodrine 10 mg 3 times daily. Low-salt diet and fluid restriction. Continue to monitor renal function and urine output. Avoid nephrotoxins. Repeat electrolytes in the morning. Strict is and os. Family to make decision regarding hospice today.
[2019-06-02 11:50] LABS: Glucose,Whole Blood 99 mg/dL (75-99)
--- NOTE | 2019-06-02 13:13 | P.PN ---
Subjective Progress Note Date: 06/02/19 The patient is a 79 yo M with a PMH of diastolic CHF, atrial fibrillation not on anticoagulation due to history of GI bleeding, myeloproliferative disease, coronary artery disease, hyperlipidemia, and hypertension who presented to the ED for worsening shortness of breath. The patient has a history of multiple recent hospitalizations and was previously discharged to a rehab facility. The patient was admitted for likely acute diastolic CHF exacerbation and was started on IV diuresis. Patient was also noted to have a left heel eschar for which infectious disease and vascular surgery were consulted and recommended no surgical interventions. The patient's diuresis had been adjusted due to hypertension and HIREN. Multiple discussions were had by previous providers with the family regarding the patient's goals of care. The patient's PCP (Dr Franklin) also came to see the patient today in the hospital. The patient and the family wish to move forward with hospice care. The patient was seen and examined with family at the bedside on 06/02. The patient notes suprapubic pain and feels weak. Denied chest pain, nausea, vomiting, fever, or chills. The family had the meeting with hospice team earlier today. The family would like for the patient to go to [facility], though there is currently no bed availability, with next opening likely tomorrow morning. Objective - Vital Signs Vital signs: Vital Signs Temp 98.3 F 06/02/19 08:00 Pulse 99 06/02/19 12:00 Resp 16 06/02/19 12:00 BP 91/47 06/02/19 12:37 Pulse Ox 96 06/02/19 12:00 Intake & Output 06/01/19 06/02/19 06/02/19 18:59 06:59 18:59 Intake Total 110 100 Output Total 1899 2249 Balance -1789 -2149 Weight 67 kg 106.1 kg Intake: Intake, IV Titration 10 Amount Bumetanide 10 mg In 10 Sodium Chloride 0.9% 60 ml @ 1 MG/HR 10 mls/hr IV .Q10H [facility] Rx#:[id number] Oral 100 100 Output: Urine 1899 2249 Uretheral (Leggett) 1899 1899 Other: Voiding Method Indwelling Catheter - Exam General: ill appearing elderly M, in mild distress, appears stated age HEENT: NC/AT, anicteric sclerae, moist conjunctiva, no lid-lag, PERRLA Cardiovascular: S1/S2 wnl, no murmurs, rubs, or gallops Lungs: Bibasilar rales, normal respiratory effort, no accessory muscle use Abdominal: Soft, non-tender, non-distended, no guarding, rebound, or rigidity Skin: Multiple areas of bruising, L heel eschar w/ dressing Extremities: 2+ LE edema tom, no contractures Psychiatric: Alert and oriented to person, place and time, appropriate affect Neuro: CN II-XII grossly intact, no focal neuro deficits - Labs CBC & Chem 7: 05/31/19 08:47 05/31/19 08:47 Labs: Abnormal Lab Results - Last 24 Hours (Table) 06/01/19 06/02/19 Range/Units 17:05 05:29 POC Glucose (mg/dL) 101 H 105 H (75-99) mg/dL Microbiology - Last 24 Hours (Table) 05/28/19 12:00 Gram Stain - Final Pleural Fluid Body Fluid Culture - Final Assessment and Plan Plan: Acute diastolic CHF exacerbation -C/w Bumex -Cardiology recommendations appreciated -Cardiac monitoring -I/Os, Daily weights HIREN, likely cardiorenal disease -Nephrology recs appreciated -Continue with Bumex drip with plans to transition to oral upon discharge Klebsiella and Betsy UTI -C/w Levaquin and Diflucan Myeloproiferative disorder w/ Leukocytosis and normocytic anemia -s/P 1 UpRBCs 05/30/19 -Follows w/ Dr Miller -WBC count usually 30-40k Permanent Atrial Fibrillation -Not on anticoagulation due to hx of GIB -C/w Aspirin and Plavix Chronic conditions: CAD, HTN, HLD -Resume home medications DVT prophylaxis -Heparin Discussed with: Patient, Daughter, Anticipated discharge date: 06/03/[address]: Hospice facility A total of 45 minutes was spent on the care of this complex patient more than 50% of the time was spent in counseling and care coordination.
[2019-06-02 16:56] LABS: Glucose,Whole Blood 100 mg/dL (75-99)
[2019-06-02] MEDS: ATORVASTATIN 40 MG TAB PO SCH (20:03)
[2019-06-02 21:08] LABS: Glucose,Whole Blood 97 mg/dL (75-99)
[2019-06-03] MEDS: HEPARIN SODIUM,PORCINE 5,000 UNIT/ML 1 ML VIAL SQ SCH ×2 (01:23→11:30)
[2019-06-03] MEDS: MORPHINE SULFATE 4 MG/ML SYRINGE IVP PRN ×3 (05:04→12:16)
[2019-06-03] MEDS: MIDODRINE 5 MG TAB PO SCH ×2 (05:07→11:32)
[2019-06-03] MEDS: PANTOPRAZOLE 40 MG TABLET PO SCH (05:07)
[2019-06-03 06:02] LABS: Glucose,Whole Blood 82 mg/dL (75-99)
[2019-06-03] MEDS: INSULIN ASPART (NovoLOG) 100 UNIT/ML VIAL SQ SCH ×2 (06:03→14:20)
[2019-06-03] MEDS: IPRATROPIUM-ALBUTEROL 3 ML NEB INHALATION SCH ×2 (08:44→11:31)
[2019-06-03 11:19] VITALS: BP 100/46; PULSE 102; RESP 18; TEMP 98.6
[2019-06-03] MEDS: ALLOPURINOL 100 MG TAB PO SCH (11:30)
[2019-06-03] MEDS: ASPIRIN 81 MG PO SCH (11:30)
[2019-06-03] MEDS: CLOPIDOGREL 75 MG TAB PO SCH (11:30)
[2019-06-03] MEDS: FLUCONAZOLE 100 MG TAB PO SCH (11:30)
[2019-06-03] MEDS: METOPROLOL TARTRATE 25 MG TAB PO SCH (11:31)
[2019-06-03] MEDS: GABAPENTIN 100 MG CAP PO SCH (11:31)
[2019-06-03] MEDS: POLYETHYLENE GLYCOL 3350 17 GM POWD.PACK PO SCH (11:31)
--- NOTE | 2019-06-03 11:47 | P.PN ---
Subjective Patient is seen in follow-up for acute kidney injury. Renal function is improved. Creatinine 1.51 as of May 31. Lasix drip was attempted twice but had to be discontinued due to hypotension. He is now on Bumex drip. He is on midodrine. Patient underwent thoracentesis on May 28 with 1.8 L drained from the right side and 1.4 L drained from the left side. Urine output documented is 2.4 L in the last 24 hours. Family present at bedside. Vital signs are stable. General: The patient appeared well nourished and normally developed. HEENT: Head exam is unremarkable. Neck is without jugular venous distension. LUNGS: Breath sounds decreased. HEART: Rate and Rhythm are regular. First and second heart sounds normal. No murmurs, rubs or gallops. ABDOMEN: Abdominal exam reveals normal bowel sounds. Non-tender and non- distended. EXTREMITITES: 2+ edema. Objective - Vital Signs Vital signs: Vital Signs Temp 98.6 F 06/03/19 08:00 Pulse 102 H 06/03/19 08:00 Resp 18 06/03/19 08:00 BP 100/46 06/03/19 08:00 Pulse Ox 98 06/03/19 08:00 Intake & Output 06/02/19 06/03/19 06/03/19 18:59 06:59 18:59 Intake Total 222 50 100 Output Total 1200 1200 Balance -978 -1150 100 Weight 51 kg Intake: Oral 222 50 100 Output: Urine 1200 1200 Other: Voiding Method Indwelling Catheter Indwelling Catheter Indwelling Catheter - Labs CBC & Chem 7: 05/31/19 08:47 05/31/19 08:47 Labs: Abnormal Lab Results - Last 24 Hours (Table) 06/02/19 Range/Units 16:54 POC Glucose (mg/dL) 100 H (75-99) mg/dL Microbiology - Last 24 Hours (Table) 05/29/19 04:18 Urine Culture - Final Urine,Catheterized Klebsiella oxytoca Betsy albicans Assessment and Plan Plan: Assessment: 1. Acute kidney injury mostly prerenal secondary to cardiorenal syndrome. Renal function better. Creatinine 1.51 as of May 31. Baseline creatinine near 1. 2. Urinary retention status post Leggett catheter placement. 3. Volume overload with bilateral pleural effusions. Status post bilateral thoracentesis with total 3.2 L removed. 4. Acute hypoxic respiratory failure. 5. Right foot wound maintained on antibiotics. Infectious disease following. 6. Diastolic CHF with severe tricuspid regurgitation and pulmonary hypertension. 7. Anemia. Iron deficiency noted. Status post 3 doses of IV iron. Also on Aranesp. 8. Hypervolemic hyponatremia. Plan: Maintain Bumex drip. Can be transitioned over to oral Bumex 2 mg twice daily upon discharge. Maintain midodrine 10 mg 3 times daily. Low-salt diet and fluid restriction. Continue to monitor renal function and urine output. Avoid nephrotoxins. Plan to be discharged on hospice today.
[2019-06-03] MEDS: BUMETANIDE 10 MG in DEXTROSE 5% IN WATER 60 ML IV SCH ×2 (14:18)
--- NOTE | 2019-06-03 16:45 | P.DS ---
Providers Date of admission: 05/24/19 10:21 Expected date of discharge: 06/03/19 Attending physician: Pj Avery MD Consults: 05/24/19 10:21 Consult Physician Routine Consulting Provider: Elicia Briones Consult Reason/Comments: chf Do you want consulting provider notified?: Yes 05/24/19 16:24 Consult Physician Routine Consulting Provider: Dom Joseph Consult Reason/Comments: wounds Do you want consulting provider notified?: Yes 05/25/19 08:03 Consult Physician Routine Consulting Provider: Terra Leggett Consult Reason/Comments: Recent R toe amputation, new L heel ulcer w/ possible dry gangrene Do you want consulting provider notified?: Yes 05/26/19 07:50 Consult Physician Routine Consulting Provider: Brian Maddox Consult Reason/Comments: alec Do you want consulting provider notified?: Yes 05/27/19 07:27 Consult Physician Routine Consulting Provider: Bernarda King Consult Reason/Comments: right pleural effusion Do you want consulting provider notified?: Yes Primary care physician: Leon Franklin [facility] Course: The patient is a 79 yo M with a PMH of diastolic CHF, atrial fibrillation not on anticoagulation due to history of GI bleeding, myeloproliferative disease, coronary artery disease, hyperlipidemia, and hypertension who presented to the ED for worsening shortness of breath. The patient has a history of multiple recent hospitalizations and was previously discharged to a rehab facility. The patient was admitted for likely acute diastolic CHF exacerbation and was started on IV diuresis. Patient was also noted to have a left heel eschar for which infectious disease and vascular surgery were consulted and recommended no surgical interventions. The patient's diuresis had been adjusted due to hypertension and ALEC. Multiple attempts were made to the diuresis the patient with IV Lasix though he was subsequently transitioned to IV Bumex due to hypotension. Multiple discussions were had by previous providers with the family regarding the patient's goals of care. The patient's PCP (Dr Franklin) also came to see the patient in the hospital. The patient and the family stated that they would like to move forward with hospice care at a facility. The hospice care team met with the patient and the family and agreed on [facility]. The patient was able to discharged on 06/02/2019 due to bads being unavailable. He subsequently accepted and was discharged to [facility]. Physical Examination General: ill appearing elderly M, in mild distress, appears stated age HEENT: NC/AT, anicteric sclerae, moist conjunctiva, no lid-lag, PERRLA Cardiovascular: S1/S2 wnl, no murmurs, rubs, or gallops Lungs: Bibasilar rales, normal respiratory effort, no accessory muscle use Abdominal: Soft, non-tender, non-distended, no guarding, rebound, or rigidity Skin: Multiple areas of bruising, L heel eschar w/ dressing Extremities: 2+ LE edema tom, no contractures Psychiatric: Alert and oriented to person, place and time, appropriate affect Neuro: CN II-XII grossly intact, no focal neuro deficits Discharge diagnosis: Acute diastolic CHF exacerbation, ALEC, Klebsiella UTI, myeloproliferative disorder, permanent to fibrillation, coronary artery disease, hypertension, hyperlipidemia A total of 45 minutes of time were spent preparing this complex discharge summary. Patient Condition at Discharge: Serious Plan - Discharge Summary New Discharge Prescriptions: New Levofloxacin [Levaquin] 750 mg PO Q48H tab Bumetanide [BUMEX] 2 mg PO BID #0 tab Polyethylene Glycol 3350 [Miralax] 17 gm PO DAILY powd.pack Continue Pantoprazole Sodium [Protonix] 40 mg PO DAILY Liquid Protein 30 ml PO DAILY Albuterol Nebulized [Ventolin Nebulized] 2.5 mg INHALATION RT-DAILY Ipratropium-Albuterol Nebulize [Duoneb 0.5 mg-3 mg/3 ml Soln] 3 ml INHALATION RT-Q6H Magnesium Hydroxide [Milk of Magnesia] 2,400 mg PO DAILY PRN PRN Reason: Constipation Midodrine [ProAmatine] 5 mg PO TID@0630,1130,1630 HYDROcodone/APAP 10-325MG [Anderson 10-325] 1 tab PO Q6HR PRN 3 Days #12 tab PRN Reason: Pain Discontinued Atorvastatin [Lipitor] 40 mg PO HS Aspirin 81 mg PO DAILY #30 chew Clopidogrel [Plavix] 75 mg PO DAILY #30 tab rOPINIRole HCL [Requip] 1 mg PO HS Allopurinol [Zyloprim] 100 mg PO DAILY Epoetin [place] [Procrit] 40,000 units IV ONCE Furosemide [Lasix] 40 mg PO BID@0900,1600 #60 tab Doxycycline [Vibramycin] 100 mg PO BID #20 cap Acetaminophen Tab [Tylenol] 650 mg PO Q6H PRN PRN Reason: Pain Ergocalciferol [Vitamin D2 (DRISDOL)] 50,000 unit PO WE Metoprolol Tartrate [Lopressor] 25 mg PO TID@0600,1200,1999 Discharge Medication List Pantoprazole Sodium [Protonix] 40 mg PO DAILY 07/14/18 [History] Albuterol Nebulized [Ventolin Nebulized] 2.5 mg INHALATION RT-DAILY 05/24/19 [History] Ipratropium-Albuterol Nebulize [Duoneb 0.5 mg-3 mg/3 ml Soln] 3 ml INHALATION RT-Q6H 05/24/19 [History] Liquid Protein 30 ml PO DAILY 05/24/19 [History] Magnesium Hydroxide [Milk of Magnesia] 2,400 mg PO DAILY PRN 05/24/19 [History] Midodrine [ProAmatine] 5 mg PO TID@0630,1130,1630 05/24/19 [History] Bumetanide [BUMEX] 2 mg PO BID #0 tab 06/03/19 [Rx] HYDROcodone/APAP 10-325MG [Anderson 10-325] 1 tab PO Q6HR PRN 3 Days #12 tab 06/03/19 [Rx] Levofloxacin [Levaquin] 750 mg PO Q48H tab 06/03/19 [Rx] Polyethylene Glycol 3350 [Miralax] 17 gm PO DAILY powd.pack 06/03/19 [Rx] Follow up Appointment(s)/Referral(s): Leon Franklin MD [Primary Care Provider] - As Needed [facility] Visiting Nurse, [NON-STAFF] - As Needed Patient Instructions/Handouts: Hospice (DC) Activity/Diet/Wound Care/Special Instructions: Hospice house for discharge. Discharge Dis[facility]: [facility]
[2019-06-03] MEDS ORDERED: BUMETANIDE 1 MG TAB PO SCH (21:00)
== END 2019-06-03 14:27 | disposition hospice, inpatient (51) | DRG 291 ==
LOC: EC 07:50 → 3SCARD 10:21
PROVIDERS: ADMIT Internal Medicine; ATTEND Internal Medicine
PROC: 0W9B3ZX Drainage of Left Pleural Cavity, Percutaneous Approach, Diagnostic (ICD-10-PCS; principal; 2019-05-28)
PROC: 0W993ZX Drainage of Right Pleural Cavity, Percutaneous Approach, Diagnostic (ICD-10-PCS; 2019-05-28)
DX: I13.0 Hypertensive heart and chronic kidney disease with heart failure and stage 1 through stage 4 chronic kidney disease, or unspecified chronic kidney disease (principal); E43 Unspecified severe protein-calorie malnutrition; I50.33 Acute on chronic diastolic (congestive) heart failure; J96.01 Acute respiratory failure with hypoxia; B37.49 Other urogenital candidiasis; D47.1 Chronic myeloproliferative disease; E11.52 Type 2 diabetes mellitus with diabetic peripheral angiopathy with gangrene; E87.1 Hypo-osmolality and hyponatremia; I48.1 Persistent atrial fibrillation; J91.8 Pleural effusion in other conditions classified elsewhere; J98.11 Atelectasis; L03.115 Cellulitis of right lower limb; L03.116 Cellulitis of left lower limb; N17.9 Acute kidney failure, unspecified; I48.92 Unspecified atrial flutter; I27.81 Cor pulmonale (chronic); Z71.3 Dietary counseling and surveillance; B96.1 Klebsiella pneumoniae [K. pneumoniae] as the cause of diseases classified elsewhere; B95.62 Methicillin resistant Staphylococcus aureus infection as the cause of diseases classified elsewhere; Z89.421 Acquired absence of other right toe(s); D50.9 Iron deficiency anemia, unspecified; Z51.5 Encounter for palliative care; Z66 Do not resuscitate; E11.22 Type 2 diabetes mellitus with diabetic chronic kidney disease; E11.65 Type 2 diabetes mellitus with hyperglycemia; E78.5 Hyperlipidemia, unspecified; F44.4 Conversion disorder with motor symptom or deficit; L89.90 Pressure ulcer of unspecified site, unspecified stage; I08.1 Rheumatic disorders of both mitral and tricuspid valves; I25.10 Atherosclerotic heart disease of native coronary artery without angina pectoris; I25.2 Old myocardial infarction; I27.29 Other secondary pulmonary hypertension; I70.201 Unspecified atherosclerosis of native arteries of extremities, right leg; J44.9 Chronic obstructive pulmonary disease, unspecified; K21.9 Gastro-esophageal reflux disease without esophagitis; K59.00 Constipation, unspecified; Z87.19 Personal history of other diseases of the digestive system; L89.150 Pressure ulcer of sacral region, unstageable; L89.629 Pressure ulcer of left heel, unspecified stage; M77.30 Calcaneal spur, unspecified foot; N18.9 Chronic kidney disease, unspecified; N40.1 Benign prostatic hyperplasia with lower urinary tract symptoms; R33.8 Other retention of urine; Z74.01 Bed confinement status; Z79.02 Long term (current) use of antithrombotics/antiplatelets; Z79.82 Long term (current) use of aspirin; Z79.899 Other long term (current) drug therapy; Z82.49 Family history of ischemic heart disease and other diseases of the circulatory system; Z86.14 Personal history of Methicillin resistant Staphylococcus aureus infection; Z87.891 Personal history of nicotine dependence; Z95.1 Presence of aortocoronary bypass graft; Z98.61 Coronary angioplasty status; Z80.1 Family history of malignant neoplasm of trachea, bronchus and lung; Z80.42 Family history of malignant neoplasm of prostate; R74.8 Abnormal levels of other serum enzymes; T50.1X5A Adverse effect of loop [high-ceiling] diuretics, initial encounter; E80.6 Other disorders of bilirubin metabolism; Z90.49 Acquired absence of other specified parts of digestive tract
CPT/HCPCS: 36415; 71045; 71046; 71250; 76604; 80048; 80053; 81001; 82330; 82533; 82728; 83036; 83540; 83550; 83615; 83735; 83880; 84157; 84484; 85025; 85027; 85610; 85730; 86850; 86900; 86901; 86920; 87070; 87077; 87086; 87186; 87205; 88108; 88305; 89050; 93005; 94640; 94760; 96374; 96375; 99285